=== PATIENT | male | born 1970 | race Caucasian/White ===

== ENCOUNTER 2024-07-31 14:29 | Outpatient (CLI) | payer BC, MEDICARE, MEDICAID, SELFPAY ==
--- NOTE | 2024-07-31 14:39 | XR_ITS ---
FINAL REPORT TECHNIQUE: Chest PA & Lateral CLINICAL HISTORY: HEART FAILURE W/ REDUCED EJECTION FRACTION COMPARISON: None FINDINGS: 2 views of the chest were performed. The heart size is moderately enlarged. Sternotomy wires are present. There is a left-sided pacer. A left ventricular assist device is present. Dense airspace opacity in the right perihilar region and mild mixed interstitial airspace opacity throughout the right lung is favored to represent pneumonia over asymmetric edema. There are no pleural effusions. There is no pneumothorax. The bony thorax appears intact. IMPRESSION: Right lung findings favor pneumonia over asymmetric edema. Follow-up recommended. Reviewed, Interpreted and Dictated by Rudy Cleveland MD Transcribed by Breann Majano Authenticated and [facility]
== END 2024-07-31 23:59 | disposition home or self-care (01) ==
LOC: LAB 14:34 → RAD 14:36
PROVIDERS: PCP Pediatrics; Visit Provider Physical Medicine & Rehabilitation
DX: I50.20 Unspecified systolic (congestive) heart failure (principal); R91.8 Other nonspecific abnormal finding of lung field
CPT/HCPCS: 71046

== ENCOUNTER 2025-01-08 14:49 | Emergency (ER) | payer BC, MEDICARE, MEDICAID, SELFPAY ==
--- OUTSIDE RECORDS SUMMARY | 2018-11-13 12:05 | XMS_ITS | Encounter Summary ---
[facility] Address [address] [place] [address] Care Team Providers Care Power Marketer Name Role Phone Herberth Perez MD Primary Care Provider [phone] Reason for Visit * Diagnostic Imaging (Routine) - Closed Specialty Diagnoses / Procedures Referred By Contac t Referred To Contact Radiology Diagnoses Solitary thyroid nodule Procedures US Thyroid Zaida Banks MD [address] [place] [address] Phone: tel: fax: [facility] [address] [place] [address] Phone: tel: fax: Referral ID Status Reason Start Date Expiration Date Visits Re quested Visits Authorized [id number] Closed 11/13/2018 11/13/2019 1 1 Encounter Details Date Type Department Care Team (Late st Contact Info) Description 11/13/2018 1:05 PM EDT Hospital Encounter [facility] [address] [place] [address] Social History Tobacco Use Types Packs/Day Years Used Date Smoking Tobacco: Never Smokeless Tobacco: Never Alcohol Use Standard Drinks/Week Comments Yes 0 (1 standard drink = 0.6 oz pur e alcohol) socially PHQ-2 Answer Date Recorded Retired PHQ-9: Brief Depression Severity Measure Score 0 08/17/2022 PHQ-2 Answer Date Recorded Retired PHQ-9: Brief Depression Severity Measure Score 0 09/06/2023 Sex and Gender Information Value Date Recorded Sex Assigned at Not on file Legal Sex Male 2:57 PM EST Gender Identity Not on file Sexual Orientation Not on file documented as of this encounter Plan of Treatment Not on file documented as of this encounter Procedures Procedure Name Priority Date/Time Associated Diagnosis Comments US THYROID Routine 11/13/2018 1:05 PM EDT Solitary thyroid nodule documented in this encounter Results * US Thyroid (11/13/2018 1:05 PM EDT) Narrative SYSTEMGENERATED, DOCUMENTATION - 11/13/2018 1:05 PM EDT Please see performing physician's note for result. us Zaida Bourgeois MD IMG US ORDERABLES Final Result documented in this encounter Visit Diagnoses Not on filedocumented in this encounter Care Teams Power Marketer Relationship Specialty Start Date End Date Herberth Perez MD [address] [place] [address] [place] [address] PCP - General Internal Medicine 04/22/17 documented as of this encounter
--- OUTSIDE RECORDS SUMMARY | 2019-11-20 09:45 | XMS_ITS | Encounter Summary ---
Author Organization [facility] Address [address] [place] [address] Care Team Providers Care Spray Crew Name Role Phone Herberth Perez MD Primary Care Provider Reason for Visit * Diagnostic Imaging (Routine) - Closed Specialty Diagnoses / Procedures Referred By Contac t Referred To Contact Radiology Diagnoses Solitary thyroid nodule Procedures US Thyroid Zaida Banks MD [address] [place] [address] Phone: tel: fax: [facility] [address] [place] [address] Phone: tel: fax: Referral ID Status Reason Start Date Expiration Date Visits Re quested Visits Authorized [id number] Closed 11/20/2019 11/19/2020 1 1 Encounter Details Date Type Department Care Team (Late st Contact Info) Description 11/20/2019 10:45 AM EDT Hospital Encounter [facility] [address] [place] [address] Social History Tobacco Use Types [...] Date/Time Associated Diagnosis Comments US THYROID Routine 11/20/2019 10:45 AM EDT Solitary thyroid nodule documented in this encounter Results * US Thyroid (11/20/2019 10:45 AM EDT) Narrative SYSTEMGENERATED, DOCUMENTATION - 11/20/2019 10:45 AM EDT Please see performing physician's note for result. us Zaida Bourgeois MD IMG US ORDERABLES Final Result documented in this encounter Visit Diagnoses Not on filedocumented in this encounter Care Teams Spray Crew Relationship Specialty Start Date End Date Herberth Perez MD [address] [place] [address] [place] [address] PCP - General Internal Medicine 04/22/17 documented as of this encounter
--- OUTSIDE RECORDS SUMMARY | 2024-11-11 08:15 | XMS_ITS | Encounter Summary ---
Author Organization [facility] Address [address] [place] [address] Care Team Providers Care Appraiser Boats And Marine Name Role Phone Herberth Perez MD Primary Care Provider [phone] Gracia Petersen FIELD CONSULTANT Unavailable [phone] Yunior Solorzano MD Unavailable [phone] Ross Baez DO Unavailable [phone] Edith Aleman RN Unavailable Unavailable Encounter Details Date Type Department Care Team (Latest Contact Info) Description 11/11/2024 9:15 AM EDT - 11/11/2024 11:59 PM EDT Hospital Encounter [facility] [address] [place] [address] ICD (implantable cardioverter-defibr illator) in place Discharge Disposition: Home or Self Care Social History Tobacco Use Types Packs/Day Years Used Date Smoking Tobacco: Never Passive Smoke Exposure: Never Smokeless Tobacco: Former Chew Quit: 05/06/2019 Alcohol Use Standard Drinks/Week Comments Not Currently 0 (1 standard drink = 0.6 oz pure alcohol) Alcoholic Drinks/day: Social alcohol use Humiliation, Afraid, Rape, and Kick questionnair e Answer Date Recorded Within the last year, have y ou been afraid of your partner or ex-partner? No 04/08/2024 Within the last year, have y ou been humiliated or emotionally abused in other ways by your partner or ex-partner? No Within the last year, have y ou been kicked, hit, slapped, or otherwise physically hurt by your partner or ex-partner? No 04/08/2024 Within the last year, have y ou been raped or forced to have any kind of sexual activity by your partner or ex-partner? No 04/08/2024 PHQ-2 Answer Date Recorded Patient Health Questionnaire-2 Score 0 03/19/2024 Hunger Vital Sign Answer Date Recorded Within the past 12 months, y ou worried that your food would run out before you got the money to buy more. Never true 04/08/19 25 Within the past 12 months, t he food you bought just didn't last and you didn't have money to get more. Never true 04/08/2024 PRAPARE - Transportation Answer Date Re corded In the past 12 months, has l ack of transportation kept you from medical appointments or from getting medications? No 05/2024 In the past 12 months, has l ack of transportation kept you from meetings, work, or from getting things needed for daily living? No 04/08/2024 Housing Stability Vital Sign Answer Truong e Recorded In the last 12 months, was t here a time when you were not able to pay the mortgage or rent on time? No 12/19/2023 In the last 12 months, how many places have you lived? 1 12/19/2023 In the last 12 months, was t here a time when you did not have a steady place to sleep or slept in a senior living (including now)? No 12/19/2023 PHQ-9 Answer Date Recorded Patient Health Questionnaire-9 Score 0 03/19/2024 Housing Stability Vital Sign Answer Truong e Recorded In the last 12 months, was t here a time when you were not able to pay the mortgage or rent on time? No 04/08/2024 In the past 12 months, how m any times have you moved where you were living? 0 04/08/2024 At any time in the past 12 m [place], were you homeless or living in a senior living (including now)? No 04/08/2024 CAGE ASSESSMENT Answer Date Recorded Cage unable to access Not on file 09/19/2021 Cage max number of drinks Not on file 2021 Cage Beverages a week Not on file 09/19/2021 Have you ever felt you should CUT down on your d rinking? 0 09/19/2021 Have you been ANNOYED by people criticizing your drinking? 0 09/19/2021 Have you felt GUILTY about your drinking? 0 09/19/2021 Have you had a drink first t janine in the morning (EYE-RESPIRATORY SUPERVISOR) to steady your nerves or to get rid of a hangover? 0 09/19/2021 CAGE Questionnaire Score 0 022 Utilities Answer Date Recorded In the past 12 months has th e [employer], [employer], oil, or water Yvolver threatened to shut off services in your home? No 04/08/2024 PHQ-2A Answer Date Recorded Patient Health Questionnaire-2 Score 0 12/21/2022 Sex and Gender Information Value Date Recorded Sex Assigned at Male 08/25/2020 11:15 AM EDT Legal Sex Male 8:00 PM EDT Gender Identity Male 08/25/2020 11:15 AM EDT Sexual Orientation Straight 08/25/2020 11 :15 AM EDT documented as of this encounter Medications at Time of Discharge acetaminophen (Tylenol) 325 MG tablet Take 3 tablets (975 mg) by mouth every 6 hours as needed for pain. 100 tablet 3 05/28/2024 albuterol 108 (90 Base) MCG/ACT inhaler Inhale 1 puff 2 (two) times a day as needed for wheezing. 3 each 3 05/28/2024 baclofen (Lioresal) 10 MG tabletIndications :LVAD (left ventricular assist device) present (CMS/HCC),Chronic systolic heart failure Take 3 tablets (30 mg) by mouth nightly. 270 tablet 3 05/28/2024 buPROPion XL (Wellbutrin XL) 300 MG 24 hr tablet Take 1 tablet (300 mg) by mouth daily. Do not crush, chew, or split. 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 360 capsule 3 05/28/2024 cetirizine (ZyrTEC) 10 MG tablet Take 1 tablet (10 mg) by mouth nightly. 90 tablet 3 05/28/2024 diphenhydrAMINE (Banophen) 25 MG capsule TAKE 1 CAPSULE BY MOUTH TWO TIMES A DAY 60 capsule 11 11/05/2024 fludrocortisone (Florinef) 0.1 MG tablet Take 1 tablet by mouth daily. 30 tablet 11 06/10/2024 FLUoxetine (PROzac) 40 MG capsule Take 1 capsule (40 mg) by mouth daily. 90 capsule 3 05/28/2024 fluticasone (Flonase) 50 MCG/ACT nasal spray USE 2 SPRAY(S) IN EACH NOSTRIL ONCE DAILY DIRECTED 06/22/2022 ipratropium (Atrovent) 0.02 % nebulizer solution Take 2.5 mL by nebulization 4 times a day as needed for wheezing. 75 mL 11 10/29/2024 IV Sets-Tubing kit For fluid boluses 15 kit 5 09/20/2024 lactulose (Chronulac) 10 GM/15ML oral solution Take 30 mL by mouth 3 times a day. 473 mL 2 08/26/2024 Magnesium Chloride-Calcium (Slow Magnesium/Calcium ) 64-106 MG tablet delayed-release Take 1 tablet by mouth in the morning and 1 tablet before bedtime. 180 tablet 3 05/28/2024 Melatonin 10 MG capsule Take 10 mg by mouth every night. 06/17/2020 Metamucil Fiber 2 g chewable tablet Chew 1 each in the morning. metoprolol succinate XL (Toprol-XL) 25 MG 24 hr tablet Take 1 tablet (25 mg) by mouth daily. Do not crush or chew. 90 tablet 3 05/28/2024 montelukast (Singulair) 10 MG tablet Take 1 tablet (10 mg) by mouth nightly. 90 tablet 3 05/28/2024 Mucus Relief 600 MG 12 hr tablet TAKE 2 TABLETS BY MOUTH TWO TIMES A DAY. DO NOT CHEW, CRUSH, OR SPLIT. 120 tablet 11 09/11/2024 NON FORMULARY Take 1 each by mouth every night. Delta 9 gummies purchased in [place] omeprazole (PriLOSEC) [address] capsule Take 1 capsule (40 mg) by mouth daily. DO NOT CRUSH OR CHEW 90 capsule 3 05/28/2024 polyethylene glycol (Miralax) 17 g packet Take 17 g by mouth daily as needed (constipation). 90 packet 3 05/28/2024 rosuvastatin (Crestor) 20 MG tablet Take 1 tablet (20 mg) by mouth nightly. 90 tablet 3 05/28/2024 senna (Senokot) 8.6 MG tablet Take 1 tablet (8.6 mg) by mouth nightly. 90 tablet 3 05/28/2024 sotalol (Betapace) 120 MG tablet Take 1 tablet (120 mg) by mouth in the morning and 1 tablet (120 mg) before bedtime. 180 tablet 3 05/28/2024 tamsulosin (Flomax) 0.4 MG 24 hr capsule Take 1 capsule (0.4 mg) by mouth 1 (one) time each day with dinner. 90 capsule 3 05/28/2024 warfarin (Coumadin) 4 MG tablet Take 1 tablet by mouth in the evening. 90 tablet 3 06/10/2024 sodium chloride 0.9 % bolus Infuse 500 mL into a venous catheter daily at 500 mL/hr over 60 minutes. 20 each 3 10/02/2024 documented as of this encounter Plan of Treatment Upcoming Encounters Date Type Department Care Team (Late st Contact Info) Description 01/28/2025 9:00 AM EST Appointment Cardiac Imaging [address] [place] [address] 01/28/2025 10:00 AM EST Ancillary Procedure [facility] [facility] [address] [place] [address] documented as of this encounter Goals Goal Patient Goal Type Associated Problems Recent Progress Patient-Stated? Author LVAD Short Term Goal General On track( 11:53 AM EDT) Yes Katrin Oviedo, RN Note: - 07/04/23: Patient states he wants to attend a wedding in November in [place] LVAD Night Manager Goal General On track( 11:53 AM EDT) Yes Katrin Oviedo, RN Note: - 07/04/23: Patient states he wants to meet his grandchild when they are born in November documented as of this encounter Procedures Procedure Name Priority Date/Time Associated Diagnosis Comments CARDIAC DEVICE CHECK - REMOTE - ICD Routine 11/11/2024 9:49 AM EDT ICD (implantable cardioverter-defibr illator) in place documented in this encounter Results * CARDIAC DEVICE CHECK - REMOTE - ICD (11/11/2024 9:49 AM EDT) Anatomical Region Laterality Modality Other Narrative 11/11/2024 2:33 PM EDT Biventricular Implantable cardiac defibrillator (ICD) remote interrogation. Device successfully sensing intrinsic cardiac events and marking appropriately. Available impedance values demonstrate stable trend within normal limits. Available lead capture thresholds measured without significant change. Adequate safety margin programmed in device permanent outputs. Battery discharge trend stable, appropriate given total time in service. BIV pacing percentage >= 92%. EGMs reviewed against implant indication and diagnosis. It is worth noting that the vendor auto-threshold algorithm is not turned enabled or available on one or more leads. Reported thresholds of these leads with auto-threshold disabled are from an earlier dated in-clinic evaluation. Presenting rhythm is atrial paced with biventricular paced response. Otherwise unremarkable. No new events since last clinic/remote report evaluation. 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 Assessment Noted Time PHQ-9 Depression Total Score: 0 03/19/19 25 8:46 AM EST A fall risk assessment has been complete d for the patient 10/29/2024 11:44 AM EDT A Body Mass Index follow-up plan has been documented for the patient 11/09/2024 11:38 AM EDT documented as of this encounter Care Teams Appraiser Boats And Marine Relationship Specialty Start Date End Date Herberth Perez MD [address] [place] [address] PCP - General 07/17/20 Gracia Petersen APRN [address] [place] [address] Nurse Practitioner Internal Medicine 08/06/20 Yunior Solorzano MD [address] [place] [address] Consulting Physician Gastroenterology 07/18/22 Ross Baez, [address] [place] [address] Surgeon Cardiothoracic Surgery 07/18/22 Edith Aleman, SAMPLE SUPERVISOR VAD Coordinator 10/14/24 documented as of this encounter
--- OUTSIDE RECORDS SUMMARY | 2024-12-20 09:46 | XMS_ITS | Encounter Summary ---
Author Organization Healthcare Address [address] [place] [address] Care Team Providers Care Machine Puller And Laster Name Role Phone Herberth Perez MD Primary Care Provider [phone] Gracia Petersen MEDICAL RECORDS COORDINATOR Unavailable [phone] Yunior Solorzano MD Unavailable Ross Baez DO Unavailable [phone] Edith Aleman RN Unavailable Unavailable Encounter Details Date Type Department Care Team (Latest Contact Info) Description 12/20/2024 10:46 AM EDT - 12/20/2024 11:59 PM EDT Hospital Encounter Cardiac Imaging [address] [place] [address] Biventricular ICD (implantable cardioverter-defibril lator) in place [...] place to sleep or slept in a chcf (including now)? No 12/19/2023 PHQ-9 Answer Date [...] any time in the past 12 m [facility], were you homeless or living in a chcf (including now)? No 04/08/2024 CAGE ASSESSMENT Answer [...] drink first t janine in the morning (EYE-DOLL WIG MAKER ROOTED HAIR) to steady your nerves or to get rid of a hangover? 0 09/19/2021 CAGE Questionnaire Score 0 022 Utilities Answer Date Recorded In the past 12 months has th [employer], [employer], oil, or water [employer] threatened to shut off services in your [...] every night. Delta 9 gummies purchased in [place] omeprazole (PriLOSEC) [address] capsule Take [...] over 60 minutes. 20 each 3 12/23/2024 documented as of this encounter Plan of Treatment Upcoming Encounters Date Type Department Care Team (Late st Contact Info) Description 01/28/2025 9:00 AM EST Appointment Cardiac Imaging [address] [place] [address] 01/28/2025 10:00 AM EST Ancillary Procedure [facility] [place] [address] [place] [address] documented as of this encounter Goals Goal Patient Goal Type Associated Problems Recent Progress Patient-Stated? Author LVAD Short Term Goal General On track( 11:53 AM EDT) Yes Katrin Oviedo, RN Note: - 07/04/23: Patient states he wants to attend a wedding in November in [place] LVAD Clinical Dietetic Technician Goal General On track( 024 11:53 AM EDT) Yes Katrin Oviedo, RN [...] from the original result were not included. [facility] EP - Remote CIED alert (non-scheduled) Name: Jose Pearson Date: 12/20/2024 : 1970 Age: 54 y.o. Indication for alert: Update/entry on HF diagnostic trends for LVAD team Device: Molding Machine Tender: Zavaleta RFID MANAGER-ICD Summary: Weekly reports of Corvue being sent [...] documented as of this encounter Care Teams Machine Puller And Laster Relationship Specialty Start Date End Date Herberth Perez MD [address] [place] [address] PCP - General 07/17/20 Gracia Petersen APRN [address] [place] [address] Nurse Practitioner Internal Medicine 08/06/20 Yunior Solorzano MD [address] [place] [address] Consulting Physician Gastroenterology 07/18/22 Ross Baez, [address] [place] [phone] Surgeon Cardiothoracic Surgery 07/18/22 Edith Aleman, POWER TONG OPERATOR VAD Coordinator 10/14/24 documented as of this encounter
--- OUTSIDE RECORDS SUMMARY | 2024-12-23 11:44 | XMS_ITS | Encounter Summary ---
Author Organization Healthcare Address [address] [place] [address] Care Team Providers Care Manager Corporate Communications Name Role Phone Herberth Perez MD Primary Care Provider [phone] Gracia Petersen SCRATCH BRUSHER Unavailable [phone] Yunior Solorzano MD Unavailable Ross Baez DO Unavailable [phone] Edith Aleman RN Unavailable Unavailable Encounter Details Date Type Department Care Team (Latest Contact Info) Description 12/23/2024 12:44 PM EDT - 12/23/2024 11:59 PM EDT Hospital Encounter Cardiac Imaging [address] [place] [address] Biventricular ICD (implantable cardioverter-defibril lator) in place [...] place to sleep or slept in a custodial (including now)? No 12/19/2023 PHQ-9 Answer Date [...] in the past 12 m [facility], were you homeless or living in a custodial (including now)? No 04/08/2024 CAGE ASSESSMENT Answer [...] drink first t janine in the morning (EYE-HEAT TREAT FURNACE OPERATOR) to steady your nerves or to get rid of a hangover? 0 09/19/2021 CAGE Questionnaire Score 0 022 Utilities Answer Date Recorded In the past 12 months has th [employer], [employer], oil, or water [employer] threatened to shut off services in your [...] every night. Delta 9 gummies purchased in [place] omeprazole (PriLOSEC) [address] capsule Take [...] AM EST Appointment Cardiac Imaging [address] [place] [address] 01/28/2025 10:00 AM EST Ancillary Procedure [facility] [place] [address] [place] [address] documented as of this encounter Goals Goal Patient Goal Type Associated Problems Recent Progress Patient-Stated? Author LVAD Short Term Goal General On track( 11:53 AM EDT) Yes Katrin Oviedo, RN Note: - 07/04/23: Patient states he wants to attend a wedding in November in [place] LVAD Pump Room Operator Goal General On track( 024 11:53 AM [...] Modality Other Narrative 12/23/2024 12:59 PM EDT [facility] EP - Remote CIED alert (non-scheduled) Name: Jose Pearson Date: 12/23/2024 : 1970 Age: 54 y.o. Indication for alert: NSVT (V>A) Device: Security Support Analyst: Zavaleta LEGAL MANAGER-ICD Summary: NSVT labeled event on 12/21/24 lasting approx 6-7 seconds. Event is in patients VT-1 monitor zone of 150bpm, no therapy delivered. EGM demonstrates spontaneous conversion. Action(s): Next scheduled appt 01/28/25 Will continue to monitor device. LVAD patient Ongoing monitoring Jazmine Ramos PA-C See attached report for CIED details Dina Saldana APRN CV IMPLANTABLE CARDIAC DEV ICE PROCEDURES Final [...] documented as of this encounter Care Teams Manager Corporate Communications Relationship Specialty Start Date End Date Herberth Perez MD [address] [place] [address] PCP - General 07/17/20 Gracia Petersen APRN [address] [place] [address] Nurse Practitioner Internal Medicine 08/06/20 Yunior Solorzano MD [address] [place] [address] Consulting Physician Gastroenterology 07/18/22 Ross Baez, DO [address] [place] [phone] Surgeon Cardiothoracic Surgery 07/18/22 Edith Aleman, GLOBAL POSITION SYSTEM TECHNICIAN VAD Coordinator 10/14/24 documented as of this encounter
--- OUTSIDE RECORDS SUMMARY | 2025-01-06 12:34 | XMS_ITS | Encounter Summary ---
Author Organization Healthcare Address [address] [place] [address] Care Team Providers Care Utilization Management Nurse Name Role Phone Herberth Perez MD Primary Care Provider [phone] Gracia Petersen PANELBOARD TANK PUMPER Unavailable [phone] Yunior Solorzano MD Unavailable [phone] Ross Baez DO Unavailable [phone] Edith Aleman RN Unavailable Unavailable Encounter Details Date Type Department Care Team (Latest Contact Info) Description 01/06/2025 12:34 PM EST - 01/06/2025 11:59 PM [facility] Hospital Encounter Cardiac Imaging [address] [place] [id number] ICD (implantable cardioverter-defibr illator) in place Discharge [...] place to sleep or slept in a correction (including now)? No 12/19/2023 PHQ-9 Answer Date [...] any time in the past 12 m [facility], were you homeless or living in a correction (including now)? No 04/08/2024 CAGE ASSESSMENT Answer [...] drink first t janine in the morning (EYE-ANIMAL BEHAVIORIST) to steady your nerves or to get rid of a hangover? 0 09/19/2021 CAGE Questionnaire Score 0 022 Utilities Answer Date Recorded In the past 12 months has th e [employer], [employer], oil, or water [email or web address] threatened to shut off services in your [...] daily at 500 mL/hr over 60 minutes. 20682 mL 11 12/25/2024 documented as of this encounter Plan of Treatment Upcoming Encounters Date Type Department Care Team (Late st Contact Info) Description 01/28/2025 9:00 AM EST Appointment Cardiac Imaging [address] [place] [address] 01/28/2025 10:00 AM EST Ancillary Procedure [facility] [place] [address] [place] [address] documented as of this encounter Goals Goal Patient Goal Type Associated Problems Recent Progress Patient-Stated? Author LVAD Short Term Goal General On track( 11:53 AM EDT) Yes Katrin Oviedo, RN Note: - 07/04/23: Patient states he wants to attend a wedding in November in [place] LVAD Neurosurgery Spine Physician Goal General On track( 11:53 AM EDT) [...] Modality Other Narrative 01/06/2025 4:17 PM EST [facility] EP - Remote CIED alert (non-scheduled) Name: Jose Pearson Date: 01/06/2025 : 1970 Age: 54 y.o. Indication for alert: NSVT (V>A) Device: Gm Video: Zavaleta CASINO BEVERAGE SERVER-ICD Summary: NSVT event, occurring 01/03, egm does not demonstrate onset, can visualize termination, duration at least 14 seconds Rate appears to flucuate in and out of VT-1 zone (150 bpm, with therapy) Action(s): Next apt with VAD 01/28/25 See attached report for CIED details Dnia Valenzuela Les SANDOVAL CV IMPLANTABLE CARDIAC DEV [...] documented as of this encounter Care Teams Utilization Management Nurse Relationship Specialty Start Date End Date Herberth Perez MD [address] [place] [address] PCP - General 07/17/20 Gracia Petersen APRN [address] [place] [address] Nurse Practitioner Internal Medicine 08/06/20 Yunior Solorzano MD [address] [place] [address] Consulting Physician Gastroenterology 07/18/22 Ross Baez DO [address] [address] Surgeon Cardiothoracic Surgery 07/18/22 Edith Aleman, SOCIAL WORK LECTURER VAD Coordinator 10/14/24 documented as of this encounter
[2025-01-08 14:51] VITALS: BP 105/80; PULSE 100; RESP 18; TEMP 37.1; O2SAT 96; BMI 20.6
[2025-01-08 15:09] LABS: Coronavirus 19, PCR Not Detected (NotDetected); Influenza A, PCR Not Detected (NotDetected); Influenza B, PCR Not Detected (NotDetected)
--- OUTSIDE RECORDS SUMMARY | 2025-01-08 15:09 | XMS_ITS | Encounter Summary ---
Author Organization [employer] ([place], [place], [place], [place], [place]) Address [address] [place] [address] Care Team Providers Care Supervisor Testing Name Role Phone Unavailable Primary Care Provider Stefan pnod Encounter Details Date Type Department Care Team (Late st Contact Info) Description 03/28/2018 Transcribed Document [facility] Family Medicine [facility] [place] [address] ProviderMg MD [facility] [place] [address] Social History Tobacco Use Types Packs/Day Years Used Date Smoking Tobacco: Never Assessed Sex and Gender Information Value Date Recorded Sex Assigned at Not on file Legal Sex Male 1:09 PM CDT Gender Identity Not on file Sexual Orientation Not on file documented as of this encounter Miscellaneous Notes * Cerner Conversion Note - Mg ProviderMD - 03/28/2018 1:07 PM MILLING PLANER OPERATOR Admission History, Adult Entered On: 03/28/2018 13:21 EST Performed On: 03/28/2018 13:07 EST by BRIAN BEASLEY RN Advance Directive Patient has Advance Directive *Q : No, patient refuses Advance Directive information BRIAN BEASLEY RN - 03/28/2018 13:07 EST Anesthesia/Transfusion History Family History of Anesthesia Reaction : No prior transfusion(s) Blood Transfusion Acceptable to Patient : Yes Transfusion History : Prior anesthesia reaction Type of Anesthesia Reaction : Excessive somnolence Family History of Anesthesia Reaction : None BRIAN BEASLEY RN - 03/28/2018 13:07 EST Anticipated Discharge Needs Discharge To, Anticipated : Home Anticipated Discharge Needs at This Time : None BRIAN BEASLEY RN - 03/28/2018 13:07 EST Functional Assessment Living Situation : Home Patient Lives With : Spouse Persons Assisting Patient at Home : Spouse Current Daily Living Assistance : None Sensory Deficits : None Mobility Assistance Prior to Admission : Independent SHARMA Hx Falls Immediate/Within 3 Months : No Current Home Treatments : None Home Equipment : None BRIAN BEASLEY RN - 03/28/2018 13:07 EST General Info Arrived From : Home Mode of Arrival on Unit : Ambulatory Patient Arrival Date/Time : 03/28/2018 12:15 EST Legal Guardian : Spouse Support Person/Patient Tailer Off : Yes Support Person/Pt Rep Name : Neel Pearson-- Support Person/Pt Rep Contact Information : [phone] Want Family/Rep/Phys Notified of Admit : No Emergency Contact #1 : neel Emergency Contact #1 Phone Number : [phone] Emergency Contact #1 Relationship : Emergency Contact #2 : na Emergency Contact #2 Phone Number : na Emergency Contact #2 Relationship : na Information Obtained From : Patient, Spouse Primary Language : Iraqi Preferred Communication Mode : Verbal Communication Barrier : None BRIAN BEASLEY RN - 03/28/2018 13:07 EST Fall Risk Scales ABCs Fall Injury Risk Identification : Coagulation ABC Fall Injury Risk : Moderate to high injury risk SHARMA Hx Falls Immediate/Within 3 Months : No Sharma Secondary Diagnosis : Yes SHARMA Use of Ambulatory Aid : None SHARMA IV Therapy or IV Access : Yes Sharma Gait/Transferring : Normal, bedrest, immobile Sharma Mental Status : Oriented to own ability Sharma Fall Risk Score : 35 SHARMA Fall Scale Risk Level : 25-45 Medium Risk [place] Fall Interventions : Adequate lighting, Assistive devices within reach, Bed in low position, Call device within reach, Fall prevention handout/education per facility policy, Frequent orientation to call device, Frequent orientation to surroundings, Hourly comfort/safety rounds, Non-slip footwear, Personal items within reach, Reinforced to call for assistance before getting out of bed, Room free of clutter/spills, Upper side-rails up, Wheels locked, Wires/Cords secured BRIAN BEASLEY RN - 03/28/2018 13:07 EST Health Histories Smoking Status : Former smoker, quit more than 30 days ago Smokeless Tobacco Status : Smokeless tobacco user within last 30 days Desires Tobacco Cessation Medication : No Reason for No Tobacco Cessation Medication : Refuses FDA approved medications BRIAN BEASLEY RN - 03/28/2018 13:07 EST Social History (As Of: 03/28/2018 13:21:03 EST) Tobacco: Use in Last 12 Months: Snuff/Dip. Smoking Status daily tobacco use. Years of Use: 23. Packs/Tins Daily: 4. Last Used: patient uses dip 4 times a day. Second Hand Smoke Exposure: No. (Last Updated: 09/02/2014 12:08:44 EDT by MICHELE NICOLE, RN) Alcohol: Total Drinks/Week: 3. Date/Time of Last Drink: 08/28/2014 beers. Use in Last 12 Months: Yes. (Last Updated: 09/02/2014 17:39:18 EDT by PAUL GARCES, MARYCARMEN) Alcohol Use History Yes. Total Drinks/Week: 1. Date/Time of Last Drink: 03/05/2018. Use in Last 12 Months: Yes. Alcohol Use Frequency Socially. (Last Updated: 03/28/2018 13:16:35 EST by BRIAN BEASLEY RN) Substance Abuse: Drug Use Hx: No. Use in Last 12 Months: No. (Last Updated: 02/12/2017 17:32:08 EST by SERGEI GARCIA RN) Height and Weight, Clinical Dosing Height Source : Stated Height Entry Format : [place] Height, Feet : 6 ft(Converted to: 183 cm, 72 Inch) Height, Inches : 0 Inch(Converted to: 0 ft 0 Inch, 0.00 cm) Clinical Height : 182.88 cm Weight Source : Standing scale Weight Entry Format : [place] Clinical Dosing Weight : 107.5 kg Weight, Pounds : 236 lb Weight, Ounces : 8 oz Body Surface Area (BSA) : 2.29 m2 Body Mass Index : 32.1 kg/m2 (HI) [place] Body Weight : 77 kg BRIAN BEASLEY RN - 03/28/2018 13:07 EST Infectious Disease History Infectious Disease History : Chicken pox/Shingles, Influenza, Measles, Mumps Fever/Chills Last 48 Hours : No Travel To Regions with Travel Advisories : No Travel Outside [place] Within Last 30 Days : No Contact With Traveler to Advisory Region : No Tuberculosis Symptoms : None BRIAN BEASLEY RN - 03/28/2018 13:07 EST Influenza Vaccine Asmt, Adult Previous Vaccines from Immunization Schedule : No qualifying data available. Influenza Immunization, Current Season : Yes BRIAN BEASLEY RN - 03/28/2018 13:07 EST Pneumococcal Vaccine Previous Vaccines from Immunization Schedule : No qualifying data available. Pneumonia Immunization Received : Yes BRIAN BEASLEY RN - 03/28/2018 13:07 EST Order Details Transport Mode Order Detail : Wheelchair Isolation Precautions Order Detail : Standard Precautions Order Detail : N/A IV Order Detail : 1 Oxygen Order Detail : 0 Nurse Collect Order Detail : 0 Lift/Transfer : Independent Central Line Order Detail : No Room Service : Appropriate Arterial Line : No BRIAN BEASLEY RN - 03/28/2018 13:07 EST Nutrition History Feeding Ability : Independent Adaptive Feeding Equipment : None Adaptive Feeding Equipment : Regular Oral Medication Administration : By mouth Eating Poorly Due to Decreased Appetite : No Unplanned Weight Loss in Past 3-6 Months : No Malnutrition Screening Tool Total(mal) : 0 Malnutrition Screening Tool Risk Level : Patient not at risk BRIAN BEASLEY RN - 03/28/2018 13:07 EST Psychosocial History Does Someone Depend on You for Care? : No Chronic/Terminal Illness w/Freq Visits : No Do You Have a History of the Following? : Patient denies history Currently in Unsafe Situation : No Tried to Harm Yourself in the Past? : No Thoughts of Harming/Killing Yourself : No BRIAN BEASLEY RN - 03/28/2018 13:07 EST Sleep Apnea Risk Assmt Hx of Obstructive Sleep Apnea Diagnosis : No Snore Loudly : Yes Tired, Fatigued, or Sleepy During Day : No Observed Stopping Breathing During Sleep : No Have/Are Being Treated for Hypertension : Yes STOP Sleep Apnea Risk Level Score : 2 STOP Sleep Apnea Risk Level : High BRIAN BEASLEY RN - 03/28/2018 13:07 EST Valuables and Belongings Valuables and Belongings : Clothing, Jewelry, Personal devices, Personal items Clothing : Common streetwear Clothing Disposition : Bedside Personal Device Disposition : With patient Jewelry : Ring Jewelry Disposition : With patient Personal Devices : Dentures, partial plate Personal Items : Cell phone Personal Items Disposition : With patient BRIAN BEASLEY RN - 03/28/2018 13:07 EST Electronically signed by Interface, [facility] Conversion Court Operations Clerk Cerner at 06/19/2022 10:55 PM CDT documented in this encounter Plan of Treatment Not on file documented as of this encounter Visit Diagnoses Not on filedocumented in this encounter
--- OUTSIDE RECORDS SUMMARY | 2025-01-08 15:09 | XMS_ITS | Encounter Summary ---
Author Organization [employer] ([place], [place], [place], [place], [place]) Address [address] [place] [address] Care Team Providers Care Power Nut Runner Operator Name Role Phone Unavailable Primary Care Provider Unavailrodrick e Encounter Details Date Type Department Care Team (Late st Contact Info) Description 03/28/2018 Transcribed Document [facility] [facility] Family Medicine [address] [place] [address] ProviderMg MD [facility] [place] [address] Social History Tobacco Use Types Packs/Day Years Used Date Smoking Tobacco: Never Assessed Sex and Gender Information Value Date Recorded Sex Assigned at Not on file Legal Sex Male 1:09 PM CDT Gender Identity Not on file Sexual Orientation Not on file documented as of this encounter Miscellaneous Notes * Cerner Conversion Note - Historical ProviderMD - 03/28/2018 1:36 PM CUPOLA MELTER HELPER Education-(VTE) / (DVT) Entered On: 03/28/2018 14:58 EST Performed On: 03/28/2018 13:36 EST by BRIAN BEASLEY RN Teaching/Learning Assessment Barriers To Learning : None evident Highest Level of Education : Some college Learning Style Preferences Patient : None Learning Style Preferences Family : None BRIAN BEASLEY RN - 03/28/2018 14:58 EST documented in this encounter Plan of Treatment Not on file documented as of this encounter Visit Diagnoses Not on filedocumented in this encounter
--- OUTSIDE RECORDS SUMMARY | 2025-01-08 15:09 | XMS_ITS | Encounter Summary ---
Author Organization [employer] ([place], [place], [place], [place], [place]) Address [address] [place] [address] Care Team Providers Care Rental Management Trainee Name Role Phone Unavailable Primary Care Provider Stefan pond Encounter Details Date Type Department Care Team (Late st Contact Info) Description 03/28/2018 Transcribed Document [facility] Family Medicine [address] [place] [address] ProviderMg MD [facility] [place] [address] Social History Tobacco Use Types Packs/Day Years Used Date Smoking Tobacco: Never Assessed Sex and Gender Information Value Date Recorded Sex Assigned at Not on file Legal Sex Male 1:09 PM CDT Gender Identity Not on file Sexual Orientation Not on file documented as of this encounter Miscellaneous Notes * Cerner Conversion Note - Historical ProviderMD - 03/28/2018 1:21 PM INTERNET ECOMMERCE SPECIALIST Education-Smoking Cessation Entered On: 03/28/2018 14:57 EST Performed On: 03/28/2018 13:21 EST by BRIAN BEASLEY RN Teaching/Learning Assessment Barriers To Learning : None evident Individuals Taught : Patient, Significant other Readiness to Learn : Cooperative Highest Level of Education : Some college Baseline Knowledge of Topic : Good Readiness to Learn : Explanation, Printed materials Learning Style Preferences Patient : None Learning Style Preferences Family : None BRIAN BEASLEY RN - 03/28/2018 14:57 EST documented in this encounter Plan of Treatment Not on file documented as of this encounter Visit Diagnoses Not on filedocumented in this encounter
--- OUTSIDE RECORDS SUMMARY | 2025-01-08 15:09 | XMS_ITS | Encounter Summary ---
Author Organization [employer] ([place], [place], [place], [place], [place]) Address [address] [place] [address] Care Team Providers Care Rubber Roller Grinder Name Role Phone Unavailable Primary Care Provider Unavailabl e Encounter Details Date Type Department Care Team (Late st Contact Info) Description 03/28/2018 Transcribed Document [facility] [address] [place] [address] ProviderMg MD [facility] [place] [address] Social History Tobacco Use Types Packs/Day Years Used Date Smoking Tobacco: Never Assessed Sex and Gender Information Value Date Recorded Sex Assigned at Not on file Legal Sex Male 1:09 PM CDT Gender Identity Not on file Sexual Orientation Not on file documented as of this encounter Miscellaneous Notes * Cerner Conversion Note - Historical ProviderMD - 03/28/2018 5:50 PM FINANCE CONSULTANT Spiritual Care Short Form Entered On: 03/28/2018 18:12 EST Performed On: 03/28/2018 17:50 EST by Billy Leiws CHAPLAIN General Information, Spiritual Care Spiritual Care Referred by : Family Reason for Visit : Initial Ministry Provided to : Patient Intervention/Comment/Summary Points : Research Instructor paged for a meal voucher for patient's . Research Instructor delivered the meal voucher. Billy Lewis CHAPLAIN - 03/28/2018 18:11 EST documented in this encounter Plan of Treatment Not on file documented as of this encounter Visit Diagnoses Not on filedocumented in this encounter
--- OUTSIDE RECORDS SUMMARY | 2025-01-08 15:09 | XMS_ITS | Encounter Summary ---
Author Organization [employer] ([place], [place], [place], [place], [place]) Address [address] [place] [address] Care Team Providers Care Acetylene Torch Operator Name Role Phone Unavailable Primary Care Provider Stefan pond Encounter Details Date Type Department Care Team (Late st Contact Info) Description 03/28/2018 Transcribed Document [facility] [place] Family Medicine [facility] [place] [address] ProviderMg MD [facility] [place], [place] [address] Social History Tobacco Use Types Packs/Day Years Used Date Smoking Tobacco: Never Assessed Sex and Gender Information Value Date Recorded Sex Assigned at Not on file Legal Sex Male 1:09 PM CDT Gender Identity Not on file Sexual Orientation Not on file documented as of this encounter Miscellaneous Notes * Cerner Conversion Note - Historical ProviderMD - 03/28/2018 1:21 PM ADULT LIVE IN CAREGIVER Provider Notification Entered On: 03/28/2018 14:57 EST Performed On: 03/28/2018 13:21 EST by BRIAN BEASLEY RN Provider Notification Provider Notified of Concerns/Results : Other: sleep apnea Provider Notified of : Nurse concerns, Patient Arrival Provider Response : No new orders BRIAN BEASLEY RN - 03/28/2018 14:56 EST Electronically signed by Jackie [facility] Conversion Hyperbaric Welder Diver Cerner at 06/19/2022 10:56 PM CDT documented in this encounter Plan of Treatment Not on file documented as of this encounter Visit Diagnoses Not on filedocumented in this encounter
--- OUTSIDE RECORDS SUMMARY | 2025-01-08 15:09 | XMS_ITS | Encounter Summary ---
Author Organization [employer] ([place], [place], [place], [place], [place]) Address [address] [place] [address] Care Team Providers Care Sports Marketing Internship Name Role Phone Unavailable Primary Care Provider Unavailabl e Encounter Details Date Type Department Care Team (Late st Contact Info) Description 03/28/2018 Transcribed Document [facility] [place] Family Medicine [facility] [place] [address] ProviderMg MD [facility] [place] [id number] Social History Tobacco Use Types Packs/Day Years Used Date Smoking Tobacco: Never Assessed Sex and Gender Information Value Date Recorded Sex Assigned at Not on file Legal Sex Male 1:09 PM CDT Gender Identity Not on file Sexual Orientation Not on file documented as of this encounter Miscellaneous Notes * Cerner Conversion Note - Mg Ritchie MD - 03/28/2018 1:44 PM WRIST CLOSER Patient: JOSE PEARSON Age: 47 years Sex: Male : 1970 Associated Diagnoses: None Author: BRENDON OTT APRN Chief Complaint got shocked last night History of Present Illness 47-year-old white male with a known history of nonischemic dilated cardiomyopathy he was evaluated in our office on 03/22/18 with iatrogenic hypotension as well as undergoing a pacemaker/ICD interrogation at that time revealing and he had been in atrial fibrillation. Patient also was felt at that time to have acute on chronic left systolic heart failure and by echocardiogram ejection fraction of less than 20% was scheduled admission today to our facility holding his Xarelto and scheduled to undergo a right heart catheterization for tomorrow. During his office visit on 117 his Coreg was decreased to 6.25 twice a day and his Entresto was continued. The patient at this time denies chest pain pressure tightness heaviness, no radiation he does admit to mild shortness of breath and he tells me that last night while he was at rest he felt like he was shocked by his defibrillator. There are no specific precipitating or modifying factors. His EKG today shows sinus rhythm. Review of Systems Constitutional: No fever, No chills, No sweats. Eye: No double vision, No visual disturbances. Ear/Nose/Mouth/Throat: No nasal congestion, No sore throat. Respiratory: Shortness of breath, No cough, No sputum production. Cardiovascular: Palpitations, Tachycardia, No chest pain, No bradycardia, No peripheral edema, No syncope. Gastrointestinal: No nausea, No vomiting, No diarrhea. Genitourinary: No dysuria, No hematuria. Hematology/Lymphatics: No bruising tendency. Endocrine: No excessive thirst, No polyuria, No cold intolerance. Immunologic: Not immunocompromised, No recurrent fevers. Musculoskeletal: No neck pain, No joint pain, No muscle pain. Integumentary: No rash, No pruritus. Neurologic: No abnormal balance, No confusion. Psychiatric: No anxiety, No depression. Health Status Allergies: Allergic Reactions (Selected) No Known Medication Allergies, Allergies (1) Active Reaction No Known Medication Allergies None Documented Current medications: (Selected) Inpatient Medications Ordered Colace: 100 mg, Oral, BID Normal Saline 1,000 mL: 10 mL/Hr, IntraVENous Normal Saline Flush: 10 mL, IV Push, Q12H Normal Saline Flush: 10 mL, IV Push, See Comment, PRN: IV Use Tylenol: 650 mg, Oral, Q4H, PRN: Pain (Mild 1-3) Zofran: 4 mg, IV Push, Q6H, PRN: Nausea acetaminophen-HYDROcodone 325 mg-5 mg oral tablet: 1 Tab, Oral, Q4H, PRN: Pain (Moderate 4-6) magnesium sulfate: 2 Gram, IV Piggyback, On-CALL morphine: 2 mg, IV Push, Q5Min, PRN: Pain (Severe 7-10) potassium chloride 10 mEq/50 mL intravenous solution: 10 mEq, 50 mL, 50 mL/Hr, IV Piggyback, 1-Time potassium chloride 20 mEq oral tablet, extended release: 40 mEq, 2 Tab, Oral, 1-Time, PRN: Other (See Comment) potassium chloride 20 mEq oral tablet, extended release: 60 mEq, 3 Tab, Oral, On-CALL Documented Medications Documented Betapace 80 mg oral tablet: 1 Tab, Oral, BID, 60 Tab, 0 Refill(s) Entresto 24 mg-26 mg oral tablet: 1 Tab, Oral, BID, 0 Refill(s) FLUoxetine 20 mg oral capsule: 1 Cap, Oral, At Bedtime, 60 Cap, 0 Refill(s) Lasix 40 mg oral tablet: 1 Tab, Oral, BID, 0 Refill(s) Melatonin 3 mg oral tablet: 1 Tab, Oral, 1-Time, 0 Refill(s) Nitrostat 0.4 mg sublingual tablet: 1 Tab, SubLINgual, Q5Min, If chest pain not relieved in 5 minutes after first dose, seek immediate medical attention not to exceed 3 doses/15 min--if pain persists, seek medical attention, PRN: as needed for chest pain, 100 Tab, 0 Refill(s) Proventil 0.5% inhalation solution: mL, Nebulized Inhalation, Q6H, 0 Refill(s) Proventil HFA 90 mcg/inh inhalation aerosol: Puff, Inhalation, QID, PRN: Shortness of Breath, 0 Refill(s) Ventolin HFA 90 mcg/inh inhalation aerosol: 2 Puff, Inhalation, QID, 0 Refill(s) Xarelto 20 mg oral tablet: 1 Tab, Oral, QPM, 30 Tab, 0 Refill(s) carvedilol: 6.25 mg, Oral, BID, 0 Refill(s) cetirizine 10 mg oral tablet: 1 Tab, Oral, Daily, 0 Refill(s) fluticasone 50 mcg/inh nasal spray: 1 [place], Nostrils Both, Daily, 0 Refill(s) montelukast 10 mg oral tablet: 1 Tab, Oral, Daily, 0 Refill(s) pravastatin 80 mg oral tablet: 1 Tab, Oral, At Bedtime, 0 Refill(s) spironolactone: 25 mg, Oral, Daily, 0 Refill(s), Medications (12) Active Scheduled: (5) #NaCl 0.9% *FLUSH* inj 10 mL 10 mL, IV Push, Q12H docusate sodium 100 mg cap 100 mg 1 Cap, Oral, BID magnesium sulfate 2 Gram, IV Piggyback, On-CALL potassium chloride 10 mEq 50 mL, IV Piggyback, 1-Time potassium chloride CR 20 mEq tab 60 mEq 3 Tab, Oral, On-CALL Continuous: (1) NaCl 0.9% 1,000 mL 1,000 mL, IntraVENous, 10 mL/Hr PRN: (6) #NaCl 0.9% *FLUSH* inj 10 mL 10 mL, IV Push, See Comment acetaminophen 325 mg tab 650 mg 2 Tab, Oral, Q4H acetaminophen/HYDROcodone 325/5 mg tab 1 Tab, Oral, Q4H morphine 2 mg/1 ml inj 2 mg 1 mL, IV Push, Q5Min ondansetron 4 mg/2 mL inj 4 mg 2 mL, IV Push, Q6H potassium chloride CR 20 mEq tab 40 mEq 2 Tab, Oral, 1-Time Problem list: All Problems angina / SNOMED CT 683927263 / Confirmed Asthma / SNOMED CT 048721497 / Confirmed At risk for sleep apnea / IMO 80405821 / Confirmed cardiac defibulator / Confirmed interrogated at physicians office---02/22/13 pacemaker / SNOMED CT 7540874215 / Confirmed Cardiomyopathy / SNOMED CT 219263513 / Confirmed stroke / SNOMED CT 895563572 / Confirmed he had a stroke when they found the blood clot in valve 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 / Confirmed treated with blood thinners GERD - Gastro-esophageal reflux disease / SNOMED CT 5502615864 / Confirmed H/O: CVA / SNOMED CT 988162347 / Confirmed Heart failure / SNOMED CT 851131668 / Confirmed high cholesterol / SNOMED CT 02238587 / Confirmed Hyperlipidemia / SNOMED CT 44786297 / Confirmed hypertension / SNOMED CT 8715499367 / Confirmed myocardial infarction / SNOMED CT 07989764 / Confirmed sesonal allergies / Confirmed, Active Problems (16) stroke angina Asthma At risk for sleep apnea cardiac defibulator Cardiomyopathy 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 GERD - Gastro-esophageal reflux disease H/O: CVA Heart failure high cholesterol Hyperlipidemia hypertension myocardial infarction pacemaker sesonal allergies Histories Past Medical History: No active or resolved past medical history items have been selected or recorded., as above Family History: No family history items have been selected or recorded., neg angelito cad Procedure history: AICD. right ankle pins & rods. heart cath. Hernia repair. heart attack. chf. cva. Social History Social & Psychosocial Habits Alcohol 09/02/2014 Total Drinks Per Week 3 Date/Time of Last Drink 08/28/2014 beers Alcohol Use in Last Twelve Months Yes 03/28/2018 Alcohol Use History, Social Habits Yes Total Drinks Per Week 1 Date/Time of Last Drink 03/05/2018 Alcohol Use in Last Twelve Months Yes Alcohol Use Frequency Socially Substance Abuse 02/12/2017 Recreational Drug Use History No Recreational Drug Use Last 12 Months No Tobacco 09/02/2014 Tobacco Use Within Last Twelve Months Snuff/Dip Smoking Status daily tobacco use Years of Tobacco Use 23 Packs/Tins Daily 4 Month Tobacco Last Used patient uses dip 4 times a day Second Hand Smoke Exposure No . Physical Examination VS/Measurements Vitals Signs (last 24 hrs) Last Charted Minimum Maximum Temp 97.9 (MAR 28:22) 97.9 (MAR 28:22) 97.9 (MAR 28:22) Mon HR 95 (MAR 28:22) 95 (MAR 28:22) 95 (MAR 28:22) Resp Rate 16 (MAR 28:22) 16 (MAR 28 12:22) 16 (MAR 28:22) SBP L 86 (MAR 28 12:22) L 86 (MAR 28:22) L 86 (MAR 28:22) DBP 65 (MAR 28 12:22) 65 (MAR 28 12:22) 65 (MAR 28 12:22) MAP 70 (MAR 28 12:22) 70 (MAR 28 12:22) 70 (MAR 28 12:22) SpO2 95 (MAR 28:22) 95 (MAR 28 12:22) 95 (MAR 28:22) General: Alert and oriented, No acute distress. Eye: Pupils are equal, round and reactive to light, Normal conjunctiva. HENT: Normocephalic, Normal hearing. Neck: Supple, Non-tender, No jugular venous distention. Respiratory: Lungs are clear to auscultation, Respirations are non-labored, Breath sounds are equal, Symmetrical chest wall expansion. Cardiovascular: Normal rate, Regular rhythm, No murmur, No gallop, Good pulses equal in all extremities, Normal peripheral perfusion, No edema. Gastrointestinal: Soft, Non-tender, Non-distended, Normal bowel sounds. Lymphatics: No lymphadenopathy neck, axilla, groin. Musculoskeletal: Normal range of motion, Normal strength. Integumentary: Warm, Dry, [place]. Neurologic: Alert, Oriented. Cognition and Speech: Oriented, Speech clear and coherent. Psychiatric: Cooperative, Appropriate mood & affect. Review / Management Results review: No qualifying data available. Impression and Plan Acute on chronic left systolic heart failure -Coreg 6.25 twice a day, Entresto 2426 twice a day. -admitted for rhc -Ef 20% bye recent office echo 03/22/18 Nonischemic dilated cardiomyopathy -BIVICD in situ -Medical therapy as above -Check BM P -Interrogation of device due to report of ICD shock. Paroxysmal atrial fibrillation -Presently appears sinus rhythm -Has been on sotalol 80 twice a day. Consider increase sotalol 120 twice a day or change medication to TIkosyn. Will discuss -hold xarelto last dose monday. -lovenox 1mg/kg bid Addendum: ICD interrogation reveals ICD shock for atrial fibrillation in the VF zone with a rate of 220. Patient now in sinus rhythm. We'll increase his sotalol to 120 twice a day. Continue Coreg at 6.25 twice a day and he can follow-up in our office following his right heart catheter tomorrow for further evaluation. Recommendations after right heart catheter tomorrow if necessary documented in this encounter Plan of Treatment Not on file documented as of this encounter Visit Diagnoses Not on filedocumented in this encounter
--- OUTSIDE RECORDS SUMMARY | 2025-01-08 15:09 | XMS_ITS | Encounter Summary ---
Author Organization [employer] ([place], [place], [place], [place], [place]) Address [address] [place] [address] Care Team Providers Care Segment Producer Name Role Phone Unavailable Primary Care Provider Unavailabl e Encounter Details Date Type Department Care Team (Late st Contact Info) Description 03/28/2018 Transcribed Document [facility] [place] Family Medicine [facility] [place] [address] ProviderMg MD [facility] [place] [address] Social History Tobacco Use Types Packs/Day Years Used Date Smoking Tobacco: Never Assessed Sex and Gender Information Value Date Recorded Sex Assigned at Not on file Legal Sex Male 1:09 PM CDT Gender Identity Not on file Sexual Orientation Not on file documented as of this encounter Miscellaneous Notes * Cerner Conversion Note - Historical ProviderMD - 03/28/2018 1:36 PM FOAM FABRICATOR Cardiac and Pulmonary Outpatient [facility] Entered On: 03/29/2018 15:22 EST Performed On: 03/28/2018 13:36 EST by EDITH CHAVIS RN Cardiac and Pulmonary Outpatient [facility] Phase 2 Cardiac Rehab Criteria Met : Heart failure (HF) Cardiac Outpatient Rehab Evaluation Comment : Order faxed to [facility] per pt location. EDITH CHAVIS RN - 03/29/2018 15:22 EST documented in this encounter Plan of Treatment Not on file documented as of this encounter Visit Diagnoses Not on filedocumented in this encounter
--- OUTSIDE RECORDS SUMMARY | 2025-01-08 15:09 | XMS_ITS | Encounter Summary ---
Author Organization [employer] ([place], [place], [place], [place], [place]) Address [address] [place] [address] Care Team Providers Care Locker Plant Attendant Name Role Phone Unavailable Primary Care Provider Unavailrodrick e Encounter Details Date Type Department Care Team (Late st Contact Info) Description 03/28/2018 Transcribed Document [facility] [place] Family Medicine [address] [place] [address] ProviderMg MD [facility] [place] [address] Social History Tobacco Use Types Packs/Day Years Used Date Smoking Tobacco: Never Assessed Sex and Gender Information Value Date Recorded Sex Assigned at Not on file Legal Sex Male 1:09 PM CDT Gender Identity Not on file Sexual Orientation Not on file documented as of this encounter Miscellaneous Notes * Cerner Conversion Note - Historical ProviderMD - 03/28/2018 1:36 PM MOBILE HOME PARK MANAGER Education-Cardiac Topics Entered On: 03/28/2018 14:58 EST Performed On: 03/28/2018 13:36 EST by BRIAN BEASLEY RN Teaching/Learning Assessment Barriers To Learning : None evident Highest Level of Education : Some college Learning Style Preferences Patient : None Learning Style Preferences Family : None BRIAN BEASLEY RN - 03/28/2018 14:58 EST Electronically signed by Jackie [facility] Conversion Trim Line Worker Cerner at 06/19/2022 11:03 PM CDT documented in this encounter Plan of Treatment Not on file documented as of this encounter Visit Diagnoses Not on filedocumented in this encounter
--- OUTSIDE RECORDS SUMMARY | 2025-01-08 15:10 | XMS_ITS | Encounter Summary ---
Author Organization [facility] Address [address] [place] [address] Care Team Providers Care Adobe Flex Developer Name Role Phone Herberth Perez MD Primary Care Provider Katrin Oviedo RN Unavailable [phone] Zaida Lafleur WELDING SPECIALIST Unavailable [phone] Gracia Petersen WELDING SPECIALIST Unavailable Yunior Solorzano MD Unavailable [phone] Ross Baez DO Unavailable Edith Aleman RN Unavailable Unavailable Reason for Visit * Reason Comments Med Refill Encounter Details Date Type Department Care Team (Late st Contact Info) Description 10/08/2020 Refill [facility] [address] [place] [address] Deandre Sanchez MD [address] [place] [address] Social History Tobacco Use Types Packs/Day Years Used Date Smoking Tobacco: Never Smokeless Tobacco: Former Chew Quit: 05/06/2019 Alcohol Use Standard Drinks/Week Comments Not Currently 0 (1 standard drink = 0.6 oz pure alcohol) Alcoholic Drinks/day: Social alcohol use Sex and Gender Information Value Date Recorded Sex Assigned at Male 08/25/2020 11:15 AM EDT Legal Sex Male 8:00 PM EDT Gender Identity Male 08/25/2020 11:15 AM EDT Sexual Orientation Straight 08/25/2020 11 :15 AM EDT COVID-19 Exposure Response Date Recorded In the last month, have you been in contact with someone who was confirmed or suspected to have Coronavirus / COVID-19? No / Unsure 10/01/2020 3:40 PM EDT documented as of this encounter Miscellaneous Notes * Telephone Encounter - Gardenia Martinez - 10/09/2020 10:23 AM EDT Approving, but needs appt for additional refills. documented in this encounter Plan of Treatment Upcoming Encounters Date Type Department Care Team (Late st Contact Info) Description 01/28/2025 9:00 AM EST Appointment Cardiac Imaging [address] [place] [address] 01/28/2025 10:00 AM EST Ancillary Procedure [facility] [place] [facility] [address] 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 MDRO Escalation Plan Comment:MDRO escalation plan through 05/06/24 04/15/2024 04/15/2024 04/20/2024 5:[address] Assessment Noted Time A fall risk assessment has been complete d for the patient 09/23/2020 12:59 PM EDT documented as of this encounter Care Teams Adobe Flex Developer Relationship Specialty Start Date End Date Herberth Perez MD [address] [place] [address] [place] [address] PCP - General 07/17/20 Katrin Oviedo, RN [facility] [address] [place] [address] VAD Coordinator Cardiology 08/06/20 10/21/24 Zaida Lafleur APRN [address] [place] [address] Nurse Practitioner Advanced Heart Failure and Transplant Cardiology 08/06/20 06/11/23 Gracia Petersen APRN [address] [place] [address] Nurse Practitioner Internal Medicine 08/06/20 Yunior Solorzano MD [address] [place] [address] Consulting Physician Gastroenterology 07/18/22 oRss Baez DO [address] [id number] Surgeon Cardiothoracic Surgery 07/18/22 Edith Aleman, CHIEF LIBRARIAN [facility] VAD Coordinator 10/14/24 documented as of this encounter
--- OUTSIDE RECORDS SUMMARY | 2025-01-08 15:10 | XMS_ITS | Encounter Summary ---
Author Organization [employer] ([place], [place], [place], [place], [place]) Address [address] [place] [address] Care Team Providers Care Program Management Professional Name Role Phone Unavailable Primary Care Provider Unavailabl e Encounter Details Date Type Department Care Team (Late st Contact Info) Description 05/17/2019 Transcribed Document [facility] [place] Family Medicine [facility] of [facility] [place] [address] ProviderMg MD On [facility] [place], [place] [id number] Social History Tobacco Use Types Packs/Day Years Used Date Smoking Tobacco: Never Assessed Sex and Gender Information Value Date Recorded Sex Assigned at Not on file Legal Sex Male 1:09 PM CDT Gender Identity Not on file Sexual Orientation Not on file documented as of this encounter Miscellaneous Notes * Cerner Conversion Note - Mg Ritchie MD - 05/17/2019 12:53 PM CDT Patient: JOSE PEARSON Age: 47 years Sex: Male : 1970 Associated Diagnoses: None Author: SO BURDICK MD-CAR ADMIT 05/03 DC 05/09 Subjective soa is better, but he has been cramping with diuretics. Health Status Allergies: Allergic Reactions (Selected) No Known Medication Allergies, Allergies (1) Active Reaction No Known Medication Allergies None Documented Current medications: (Selected) Prescriptions Prescribed Aldactone 25 mg oral tablet: 2 Tab, Oral, Daily, 60 Tab, 0 Refill(s) Tikosyn 125 mcg oral capsule: 3 Cap, Oral, BID, 180 Cap, 0 Refill(s) bumetanide 2 mg oral tablet: 1 Tab, Oral, BID, 60 Tab, 0 Refill(s) metOLazone 10 mg oral tablet: 1 Tab, Oral, Daily, 30 Tab, 0 Refill(s) Documented Medications Documented Entresto 24 mg-26 mg oral tablet: 1 Tab, Oral, BID, 0 Refill(s) FLUoxetine 20 mg oral capsule: 1 Cap, Oral, At Bedtime, 60 Cap, 0 Refill(s) Melatonin 3 mg oral tablet: 1 Tab, Oral, At Bedtime, 0 Refill(s) Nitrostat 0.4 mg sublingual tablet: 1 Tab, SubLINgual, Q5Min, If chest pain not relieved in 5 minutes after first dose, seek immediate medical attention not to exceed 3 doses/15 min--if pain persists, seek medical attention, PRN: as needed for chest pain, 100 Tab, 0 Refill(s) Singulair 10 mg oral tablet: 1 Tab, Oral, Daily, 0 Refill(s) Xarelto 20 mg oral tablet: 1 Tab, Oral, Daily, 30 Tab, 0 Refill(s) carvedilol 3.125 mg oral tablet: 0 Refill(s) cetirizine 10 mg oral tablet: 1 Tab, Oral, Daily, 0 Refill(s) pravastatin 80 mg oral tablet: 1 Tab, Oral, At Bedtime, 0 Refill(s), Home Medications (13) Active Aldactone 25 mg oral tablet 50 mg = 2 Tab, Oral, Daily bumetanide 2 mg oral tablet 2 mg = 1 Tab, Oral, BID carvedilol 3.125 mg oral tablet cetirizine 10 mg oral tablet 10 mg = 1 Tab, Oral, Daily Entresto 24 mg-26 mg oral tablet 1 Tab, Oral, BID FLUoxetine 20 mg oral capsule 20 mg = 1 Cap, Oral, At Bedtime Melatonin 3 mg oral tablet 3 mg = 1 Tab, Oral, At Bedtime metOLazone 10 mg oral tablet 10 mg = 1 Tab, Oral, Daily Nitrostat 0.4 mg sublingual tablet 0.4 mg = 1 Tab, PRN, SubLINgual, Q5Min pravastatin 80 mg oral tablet 80 mg = 1 Tab, Oral, At Bedtime Singulair 10 mg oral tablet 10 mg = 1 Tab, Oral, Daily Tikosyn 125 mcg oral capsule 375 mcg = 3 Cap, Oral, BID Xarelto 20 mg oral tablet 20 mg = 1 Tab, Oral, Daily , No qualifying data available Problem list: Medical angina / SNOMED CT 237931097 / Confirmed Cardiac defibrillator in place / SNOMED CT 6606329884 / Confirmed interrogated at physicians office---02/22/13 pacemaker / SNOMED CT 5210774783 / Confirmed stroke / SNOMED CT 616875305 / Confirmed he had a stroke when they found the blood clot in valve History of obstructive sleep apnea / IMO 99478757 / Confirmed high cholesterol / SNOMED CT 84109132 / Confirmed hypertension / SNOMED CT 6166844300 / Confirmed myocardial infarction / SNOMED CT 83454788 / Confirmed sesonal allergies / SNOMED CT 0859679384 / Confirmed, Active Problems (16) stroke angina Asthma Cardiac defibrillator in place Cardiomyopathy GERD - Gastro-esophageal reflux disease H/O: CVA Heart failure high cholesterol History of obstructive sleep apnea Hyperlipidemia hypertension Hypotension myocardial infarction pacemaker sesonal allergies Objective VS/Measurements No qualifying data available General: Alert and oriented, No acute distress. Neck: No carotid bruit, No jugular venous distention. Respiratory: Lungs are clear to auscultation, Respirations are non-labored, Breath sounds are equal, Symmetrical chest wall expansion. Cardiovascular: Normal rate, Regular rhythm, No gallop, Good pulses equal in all extremities, Normal peripheral perfusion, 2/6 bere. Gastrointestinal: Soft, Non-tender, Non-distended, Normal bowel sounds. Integumentary: Warm, Dry, [place], No rash. Results Review General results [facility] placment 05/08/19: Hemodynamics in mmHg; mean RA 10, RV 56/12, PA 56/26, mean 38. Mean pulmonary capillary wedge pressure 34. Cardiac output by Marlene 3.69 L/minute. Cardiac index by Marlene 1.6 L/minute per sq m. 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 avila for gerardo clip eval - s/p 72h milrinone this admission - Entresto and Coreg changed to Bisoprolol and Losartan due to low BP and ventricular ectopy - He's had EF <20% since 2007. Typical survival rate is 1 year and he is now 12 years past diagnosis. - CardioMEMS placed 05/08/19 - 2 D Echo during primacor/milrenone infusion to asses LV reserve - no real change, EF still arond 20-25% Prolonged QTc Interval - Eval by Dr. Davis. Patient on 375 twice a day Tikosyn and he is monitoring. This is for VT. PAF-currently SR with hx of AV miroslava RFA - tikosyn 375 bid - ICD insitu nl fx per interrogation 05/09/19. Some afib noted on interrogation. -continue xarelto NSVT - numerous episodes - common for him with [facility] - Tikosyn Iatrogenic Hypotension - bisoprolol and losartan hypokalemia -replace as needed hypomag -replace Iron Deficiency -corrected Hyponatrem ia -dc bumex drip Plan: called [employer] rep. Patient PAD today is 18. dc bumex drip and tomorrow resume BID bume [address] Davis and he is managing tikosyn dosing. referral has been made to [facility] bmp bnp and mag level [address] Alberts seen and examined patient and devised the above plan of care. pER DR BURDICK: Spoke with Dr Davis -we both think tht the patient is safe enough to be discharged on reduced Tikosyn dose that he is on now. He has a BiV ICD insitu and had AV node ablation. Tikosyn initially given to control A Fib RVR which is out of tjhe picture due to the ablation plus sustained VT which he did not have for a while. He will see Dr Davis on monday in his office for further tikosyn adjustment. We will arrange for heart transplant team at [facility]. I had a long discussion with him and his regarding above plan and they feel comfortable going home today.. documented in this encounter Plan of Treatment Not on file documented as of this encounter Visit Diagnoses Not on filedocumented in this encounter
--- OUTSIDE RECORDS SUMMARY | 2025-01-08 15:10 | XMS_ITS | Encounter Summary ---
Author Organization [facility] Address [address] [id number] Care Team Providers Care Bulk Intake Worker Name Role Phone Herberth Perez MD Primary Care Provider Katrin Oviedo RN Unavailable [phone] Zaida Lafleur CANOE BUILDER Unavailable [phone] Gracia Petersen CANOE BUILDER Unavailable Yunior Solorzano MD Unavailable [phone] Ross Baez DO Unavailable [phone] Edith Aleman RN Unavailable Unavailable Encounter Details Date Type Department Care Team (Late st Contact Info) Description 05/21/2019 [facility] Historical OTTR [address] [place] [address] Shelbie Garcia, RN [id number] [address] [id number] Social History Tobacco Use Types Packs/Day Years Used Date Smoking Tobacco: Never Assessed Sex and Gender Information Value Date Recorded Sex Assigned at Male 08/25/2020 11:15 AM EDT Legal Sex Male 8:00 PM EDT Gender Identity Male 08/25/2020 11:15 AM EDT Sexual Orientation Straight 08/25/2020 11 :15 AM EDT documented as of this encounter Miscellaneous Notes * Progress Notes - Shelbie Garcia - 05/21/2019 10:21 AM EDT New referral discussed in conference. BMI 32. Evaluation testing was ordered 05/15/19. LVIDd 6.8cm, LVEF <20%. RHC performed at [facility] on 05/08/19 showed CI 1.6. SW consult showed that patient is minimally acceptable as a transplant patient due to current tobacco use and he would need to demonstrate 3mos tobacco cessation before being considered for transplant. Colonoscopy is current and due for repeat 2023. On chest CT, the patient has calcified granulomas bilaterally in the lungs, calcified lefthilar lymph nodes and calcified granulomas in the spleen. Panorex of the mandible recommended dental evaluation. KRISTIE's were abnormal on the right side showing evidence of significant arterial disease. The patient needs to have urine cotinine tested at each clinic visit and consults with CTS, palliative care and pharmacy were not completed during evaluation. The patient was not initiated on Milrinone therapy due to VT. He was shocked by ICD while inpatient and will need close monitoring of electrolytes as an outpatient. He will RTC next week to be seen by Kayla Jim and also follow up with referring MD. Referral for heart transplant will be closed at this time because the patient will not be listed for heart transplant due to active tobacco use (last used 05/14/19). documented in this encounter Plan of Treatment Upcoming Encounters Date Type Department Care Team (Late st Contact Info) Description 01/28/2025 9:00 AM EST Appointment Cardiac Imaging [address] [place] [address] 01/28/2025 10:00 AM EST Ancillary Procedure [facility] [place] [facility] 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 MDRO Escalation Plan Comment:MDRO escalation plan through 05/06/24 04/15/2024 04/15/2024 04/20/2024 5:[address] documented as of this encounter Care Teams Bulk Intake Worker Relationship Specialty Start Date End Date Herberth Perez MD [address] [place] [address] PCP - General 07/17/20 Katrin Oviedo, RN [facility] [address] [place] [address] VAD Coordinator Cardiology 08/06/20 10/21/24 Zaida Lafleur APRN [address] [place] [address] Nurse Practitioner Advanced Heart Failure and Transplant Cardiology 08/06/20 06/11/23 Gracia Petersen APRN [address] [place] [address] Nurse Practitioner Internal Medicine 08/06/20 Yunior Solorzano MD [address] [address] Consulting Physician Gastroenterology 07/18/22 Ross Baez, [address] [address] Surgeon Cardiothoracic Surgery 07/18/22 Edith Aleman, ENGINEERING PROFESSIONALS VAD Coordinator 10/14/24 documented as of this encounter
--- OUTSIDE RECORDS SUMMARY | 2025-01-08 15:10 | XMS_ITS | Encounter Summary ---
Author Organization [facility] Address [address] [place] [address] Care Team Providers Care Janitor Supervisor Name Role Phone Herberth Perez MD Primary Care Provider Katrin Oviedo RN Unavailable [phone] aZida Lafleur SEAFOOD HARVESTER Unavailable Gracia Petersen SEAFOOD HARVESTER Unavailable [phone] Yunior Solorzano MD Unavailable [phone] Ross Baez DO Unavailable [phone] Edith Aleman RN Unavailable Unavailable Reason for Visit * Reason Comments Med Refill Encounter Details Date Type Department Care Team (Late st Contact Info) Description 11/14/2021 Refill [facility] [place] [address] [place] [address] Dina Saldana, SEAFOOD HARVESTER [address] [place] [address] Social History Tobacco Use Types Packs/Day Years Used Date Smoking Tobacco: Never Smokeless Tobacco: Former Chew Quit: 05/06/2019 Alcohol Use Standard Drinks/Week Comments Not Currently 0 (1 standard drink = 0.6 oz pure alcohol) Alcoholic Drinks/day: Social alcohol use CAGE ASSESSMENT Answer Date Recorded Cage unable [...] drink first t janine in the morning (EYE-KOHINOOR OPERATOR) to steady your nerves or to get rid of a hangover? 0 09/19/2021 CAGE Questionnaire Score 0 022 Sex and Gender Information Value Date Recorded Sex Assigned at Male 08/25/2020 11:15 AM EDT Legal Sex Male 8:00 PM EDT Gender Identity Male 08/25/2020 11:15 AM EDT Sexual Orientation Straight 08/25/2020 11 :15 AM EDT documented as of this encounter Plan of Treatment Upcoming Encounters Date Type Department Care Team (Late st Contact Info) Description 01/28/2025 9:00 AM EST Appointment Cardiac Imaging [address] [place] [address] 01/28/2025 10:00 AM EST Ancillary Procedure [facility] [place] 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 MDRO Escalation Plan Comment:MDRO escalation plan through 05/06/24 04/15/2024 04/15/2024 04/20/2024 5:[address] Assessment Noted Time A fall risk assessment has been complete d for the patient 10/05/2021 9:59 AM EDT documented as of this encounter Care Teams Janitor Supervisor Relationship Specialty Start Date End Date Herberth Perez MD [address] [place] [address] [place] [address] PCP - General 07/17/20 Katrin Oviedo, RN [facility] [address] [place] [address] VAD Coordinator Cardiology 08/06/20 10/21/24 Zaida Lafleur APRN [address] [place] [address] Nurse Practitioner Advanced Heart Failure and Transplant Cardiology 08/06/20 06/11/23 Gracia Petersen APRN [address] [place] [address] Nurse Practitioner Internal Medicine 08/06/20 Yunior Solorzano MD [address] [place] [address] Consulting Physician Gastroenterology 07/18/22 Ross Baez, DO [address] [address] Surgeon Cardiothoracic Surgery 07/18/22 Edith Aleman, MERCHANDISE SUPERVISOR VAD Coordinator 10/14/24 documented as of this encounter
--- OUTSIDE RECORDS SUMMARY | 2025-01-08 15:10 | XMS_ITS | Clinical Summary ---
Author Organization [employer] ([place], [place], [place], [place], [place]) Address [address] [place] [address] Care Team Providers Care Centerless Grinder Name Role Phone Unavailable Primary Care Provider Unavailabl e Social History Tobacco Use Types Packs/Day Years Used Date Smoking Tobacco: Never Assessed Sex and Gender Information Value Date Recorded Sex Assigned at Not on file Legal Sex Male 1:09 PM CDT Gender Identity Not on file Sexual Orientation Not on file Plan of Treatment Not on file
--- OUTSIDE RECORDS SUMMARY | 2025-01-08 15:10 | XMS_ITS | Encounter Summary ---
Author Organization [employer] ([place], [place], [place], [place], [place]) Address [address] [place] [address] Care Team Providers Care Occupational Health Rn Name Role Phone Unavailable Primary Care Provider Unavailabl e Encounter Details Date Type Department Care Team (Late st Contact Info) Description 04/12/2019 Transcribed Document [facility] [place] [facility] [place] [address] ProviderMg MD [facility] [place] [address] Social History Tobacco Use Types Packs/Day Years Used Date Smoking Tobacco: Never Assessed Sex and Gender Information Value Date Recorded Sex Assigned at Not on file Legal Sex Male 1:09 PM CDT Gender Identity Not on file Sexual Orientation Not on file documented as of this encounter Miscellaneous Notes * Cerner Conversion Note - Historical ProviderMD - 04/12/2019 11:57 AM COMMUNICATIONS TECH Therapy Screen, PT Entered On: 04/12/2019 11:59 EST Performed On: 04/12/2019 11:57 EST by PAUL GARCES PT Therapy Screen, PT Medical Chart Reviewed : Yes Person Providing Information : Nurse, Patient Screen Completed : Yes Recommendation for Evaluation, PT : None Recommendations Upon Discharge : None PAUL GARCES PT - 04/12/2019 11:57 EST Electronically signed by Jackie [facility] Conversion Hydraulic Press Operator Cerner at 06/19/2022 11:04 PM CDT documented in this encounter Plan of Treatment Not on file documented as of this encounter Visit Diagnoses Not on filedocumented in this encounter
--- OUTSIDE RECORDS SUMMARY | 2025-01-08 15:10 | XMS_ITS | Encounter Summary ---
Author Organization [employer] ([place], [place], [place], [place], [place]) Address [address] [place] [address] Care Team Providers Care Case Assistant Name Role Phone Unavailable Primary Care Provider Unavailabl e Encounter Details Date Type Department Care Team (Late st Contact Info) Description 05/22/2019 Transcribed Document [facility] [place] Family Medicine [facility] [place] [address] ProviderMg MD [facility] [place] [address] Social History Tobacco Use Types Packs/Day Years Used Date Smoking Tobacco: Never Assessed Sex and Gender Information Value Date Recorded Sex Assigned at Not on file Legal Sex Male 1:09 PM CDT Gender Identity Not on file Sexual Orientation Not on file documented as of this encounter Miscellaneous Notes * Cerner Conversion Note - Historical ProviderMD - 05/22/2019 12:43 PM CDT Cardiac and Pulmonary Outpatient [facility] Entered On: 05/22/2019 12:43 EDT Performed On: 05/22/2019 12:43 EDT by EDITH CHAVIS technical translator and Pulmonary Outpatient [facility] Cardiac Outpatient Rehab Evaluation Comment : [facility] RN - 05/22/2019 12:43 EDT documented in this encounter Plan of Treatment Not on file documented as of this encounter Visit Diagnoses Not on filedocumented in this encounter
--- OUTSIDE RECORDS SUMMARY | 2025-01-08 15:10 | XMS_ITS | Encounter Summary ---
Author Organization [employer] ([place], [place], [place], [place], [place]) Address [address] [place] [address] Care Team Providers Care Produce Manager Name Role Phone Unavailable Primary Care Provider Unavailabl e Encounter Details Date Type Department Care Team (Late st Contact Info) Description 2019 Transcribed Document [facility] [place] [facility] [place] [address] ProviderMg MD [facility] [place] [address] Social History Tobacco Use Types Packs/Day Years Used Date Smoking Tobacco: Never Assessed Sex and Gender Information Value Date Recorded Sex Assigned at Not on file Legal Sex Male 1:09 PM CDT Gender Identity Not on file Sexual Orientation Not on file documented as of this encounter Miscellaneous Notes * Cerner Conversion Note - Mg ProviderMD - 2019 2:12 PM SORTING AND FOLDING SUPERVISOR On Going Discharge Planning Entered On: 2019 14:13 EST Performed On: 2019 14:12 EST by Alyse Townsend Social Worker-Agitator Operator Care Management Progress Note Discharge Arrangements : Patient Post-Acute Information Patient Name: JOSE PEARSON Gender: Male : [birth year] Age: 48 Years No Post-Acute Placement(s) Listed No Post-Acute Service(s) Listed No [place] Referral(s) Listed Alyse Townsend Social Worker-Agitator Operator - 2019 14:12 EST Narrative Progress Note Narrative Progress Note : 05/09 Per chart, Dr. Davis was consulted for tikosyn dosing. Continue to follow... Historical Progress Note : 05/08 Per documentation left by Paula Villeda RN CM, referral information was sent to [facility] cardiac transplant program. Alyse Townsend Social Worker-Agitator Operator - 05/09/19 08:57:21 05/06 Received order to make referral to outpatient cardiac transplant program. Contacted [facility] appointment telephone number [phone]. They report the person who typically takes the referrals is unavailable and they will have her contact CM back. CM contact information was provided. They report the referral/licensing coordinator is Kailey PH: [phone]. Alyse Townsend Social Worker-Agitator Operator - 05/07/19 15:01:13 Per RN in Multidisciplinary rounds patient is NPO for scheduled Cardiomems today. Having some nausea after Fe Infusions requested the infusion be held until after procedure so he can eat. CM will follow. TANVIR THAYER Rn-Scheduling Manager - 05/06/19 11:03:45 Alyse Townsend Social Worker-Agitator Operator - 2019 14:12 EST Electronically signed by [facility] Conversion Steam Tank Operator Cerner at 06/19/2022 10:56 PM CDT documented in this encounter Plan of Treatment Not on file documented as of this encounter Visit Diagnoses Not on filedocumented in this encounter
--- OUTSIDE RECORDS SUMMARY | 2025-01-08 15:10 | XMS_ITS | Referral Summary ---
Author Organization [employer] ([place], [place], [place], [place], [place]) Address [address] [place] [address] Care Team Providers Care Adult Family Home Program Manager Name Role Phone Unavailable Primary Care [...]
--- OUTSIDE RECORDS SUMMARY | 2025-01-08 15:10 | XMS_ITS | Encounter Summary ---
Author Organization [employer] ([place], [place], [place], [place]) Address [address] [place] [address] Care Team Providers Care Senior Technical Support Engineer Name Role Phone Unavailable Primary Care Provider Unavailabl e Encounter Details Date Type Department Care Team (Late st Contact Info) Description 04/13/2019 Transcribed Document [facility] [place] [facility] [place] [address] ProviderMg MD [facility] [place] [id number] Social History Tobacco Use Types Packs/Day Years Used Date Smoking Tobacco: Never Assessed Sex and Gender Information Value Date Recorded Sex Assigned at Not on file Legal Sex Male 1:09 PM CDT Gender Identity Not on file Sexual Orientation Not on file documented as of this encounter Miscellaneous Notes * Cerner Conversion Note - Mg ProviderMD - 04/13/2019 5:29 PM REPTILE FARMER Final Discharge Planning Entered On: 04/13/2019 17:29 EST Performed On: 04/13/2019 17:29 EST by ADELAIDE SOLARES, Rn-Director Of Scout Work Final Discharge Planning Discharge Arrangements : Patient Post-Acute Information Patient Name: JOSE PEARSON Gender: Male : [birth year] Age: 48 Years No Post-Acute Placement(s) Listed No Post-Acute Service(s) Listed No Curaspan Referral(s) Listed Discharge To Care Management : Home/Residential/Prison or Self Care -01 ADELAIDE SOLARES, Rn-Director Of Scout Work - 04/13/2019 17:29 EST documented in this encounter Plan of Treatment Not on file documented as of this encounter Visit Diagnoses Not on filedocumented in this encounter
--- OUTSIDE RECORDS SUMMARY | 2025-01-08 15:10 | XMS_ITS | Encounter Summary ---
Author Organization [employer] ([place], [place], [place], [place]) Address [address] [place] [address] Care Team Providers Care Blood Bank Booking Clerk Name Role Phone Unavailable Primary Care Provider Unavailabl e Encounter Details Date Type Department Care Team (Late st Contact Info) Description 2019 Transcribed Document [facility] [place] [facility] [place] [address] ProviderMg MD [facility] [place] [address] Social History Tobacco Use Types Packs/Day Years Used Date Smoking Tobacco: Never Assessed Sex and Gender Information Value Date Recorded Sex Assigned at Not on file Legal Sex Male 1:09 PM CDT Gender Identity Not on file Sexual Orientation Not on file documented as of this encounter Miscellaneous Notes * Cerner Conversion Note - Historical ProviderMD - 2019 8:38 PM FIELD ARTILLERY BASIC Stroke/Warfarin Instructions Entered On: 2019 20:38 EST Performed On: 2019 20:38 EST by EVE NGUYEN RN Stroke/Warfarin Instructions Stroke/TIA Discharge Ins : N/A Warfarin Discharge Ins : N/A EVE NGUYEN RN - 2019 20:38 EST documented in this encounter Plan of Treatment Not on file documented as of this encounter Visit Diagnoses Not on filedocumented in this encounter
--- OUTSIDE RECORDS SUMMARY | 2025-01-08 15:10 | XMS_ITS | Encounter Summary ---
Author Organization [employer] ([place], [place], [place], [place]) Address [address] [place] [address] Care Team Providers Care Fur Dressing Supervisor Name Role Phone Unavailable Primary Care Provider Unavailabl e Encounter Details Date Type Department Care Team (Late st Contact Info) Description 2019 Transcribed Document [facility] [place] [facility] [place] [address] ProviderMg MD [place] [address] Social History Tobacco Use Types Packs/Day Years Used Date Smoking Tobacco: Never Assessed Sex and Gender Information Value Date Recorded Sex Assigned at Not on file Legal Sex Male 1:09 PM CDT Gender Identity Not on file Sexual Orientation Not on file documented as of this encounter Miscellaneous Notes * [employer]ner Conversion Note - Mg ProviderMD - 2019 3:00 AM SKILLED NURSING FACILITIES PROFESSIONAL Nutrition Assessment Entered On: 2019 11:24 EST Performed On: 2019 11:24 EST by Gracia Sneed Clinical Dietitian Nutrition Assessment Nutrition Assessment Reason : Follow Up Gracia Sneed, Clinical Dietitian - 2019 11:24 EST Nutrition Recommendations Dietitian Recommendations : 05/09: Rescreen: Pt seen on 3rd floor, noted CadrioMEMS placed 3/4. supply chain program manager noted referral made to outpatient cardiac transplant program. Pt is on cardiac diet, intakes 100% x 5. Pt states eating good, declined needs. LBM 3/4, active BS, no skin breakdown noted. No nutritional risk identified, handout regarding heart healthy diet and low sodium in discharge summary. Rescreen in 7-10 days. (3/2) RD rescreen; pt discussed in ICU rounds. Plans for cardio mem today. Pt has been on a cardiac diet eating 50-100% x 4 meals recorded. Labs and meds reviewed. Pt [facility] with [facility] @ 0.375mcg/kg/min. LBM -receiving colace. No skin issues noted. Still unable to assess for diet edu needs at this time. Pt was having nausea this AM from iron. No nutritional concerns at this time. RD will rescreen in 4-5 days or available prn. (05/03) RD rec'd routine cardiology consult. Pt discussed in ICU rounds. RN noted that pt was a direct admit from cardiology office for milrinone drip for acute on chronic left systolic heart failure. No H&P currently. Pt is on a cardiac diet with intake being established. Labs and meds reviewed. No skin or GI issues noted. RD will check on in 2-3 days for appetite establishment and diet edu needs or available prn. Gracia Sneed, Clinical Dietitian - 2019 15:53 EST documented in this encounter Plan of Treatment Not on file documented as of this encounter Visit Diagnoses Not on filedocumented in this encounter
--- OUTSIDE RECORDS SUMMARY | 2025-01-08 15:10 | XMS_ITS | Encounter Summary ---
Author Organization [facility] Address [address] [facility] [address] [place] [address] Care Team Providers Care Global Marketing Operations Manager Name Role Phone Herberth Perez MD Primary Care Provider [phone] Katrin Oviedo RN Unavailable [phone] Zaida Lafleur CHIEF OPERATING OFFICER Unavailable [phone] Gracia Petersen CHIEF OPERATING OFFICER Unavailable [phone] Yunior Solorzano MD Unavailable [phone] Ross Baez DO Unavailable [phone] Edith Aleman RN Unavailable Unavailable Reason for Visit * Reason Comments Med Refill Encounter Details Date Type Department Care Team (Late st Contact Info) Description 08/20/2021 Refill [facility] [place] [facility] [address] [place] [address] Gracia Petersen, CHIEF OPERATING OFFICER [address] [place] [address] Social History Tobacco Use Types Packs/Day Years [...] Exposure Response Date Recorded In the last 10 days, have yo u been in contact with someone who was confirmed or suspected to have Coronavirus/COVID-19? No / Unsure 07/27/2021 9:40 AM EDT documented as of this encounter Plan of Treatment Upcoming Encounters Date Type Department Care Team (Late st Contact Info) Description 01/28/2025 9:00 AM EST Appointment Cardiac Imaging [address] [place] [address] 01/28/2025 10:00 AM EST Ancillary Procedure [facility] [place] [facility] [address] 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 MDRO Escalation Plan Comment:MDRO escalation plan through 05/06/24 04/15/2024 04/15/2024 04/20/2024 5:[address] Assessment Noted Time A fall risk assessment has been complete d for the patient 07/27/2021 10:04 AM EDT documented as of this encounter Care Teams Global Marketing Operations Manager Relationship Specialty Start Date End Date Herberth Perez MD [address] [place] [address] [place] [address] PCP - General 07/17/20 Katrin Oviedo, RN [facility] [address] [place] [address] VAD Coordinator Cardiology 08/06/20 10/21/24 Zaida Lafleur APRN [address] [place] [address] Nurse Practitioner Advanced Heart Failure and Transplant Cardiology 08/06/20 06/11/23 Gracia Petersen APRN [address] [place] [address] Nurse Practitioner Internal Medicine 08/06/20 Yunior Solorzano MD [address] [place] [address] Consulting Physician Gastroenterology 07/18/22 Ross Baez, [address] [place] [address] Surgeon Cardiothoracic Surgery 07/18/22 Edith Aleman, MACHINE STONE POLISHER APPRENTICE VAD Coordinator 10/14/24 documented as of this encounter
--- OUTSIDE RECORDS SUMMARY | 2025-01-08 15:10 | XMS_ITS | Encounter Summary ---
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 Name Role Phone Unavailable Primary Care Provider Unavailabl e Encounter Details Date Type Department Care Team (Late st Contact Info) Description 2019 Transcribed Document [facility] [facility] [place] [address] ProviderMg MD [facility] [place] [address] Social History Tobacco Use Types Packs/Day Years Used Date Smoking Tobacco: Never Assessed Sex and Gender Information Value Date Recorded Sex Assigned at Not on file Legal Sex Male 1:09 PM CDT Gender Identity Not on file Sexual Orientation Not on file documented as of this encounter Miscellaneous Notes * [employer] Conversion Note - Mg ProviderMD - 2019 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 Policy Number: Authorization Number: Insurance Primary Name : [employer] [id number] Authorization Status-Primary : Admit approved Authorization Number-Primary : [id number] Number of Days Authorized-Primary : 6 Day(s) Authorized Service Begin Date-Primary : 05/03/2019 EST Authorized Service End Date-Primary : 05/09/2019 EST Authorization Comments-Primary : Continued stay clinicals faxed via [employer] Historical Authorization Comments-Primary : Comment 1: [employer] approved per Katrin for total of 7 days --- nrd 05/09 (CHARLA BARRAZA RN-Utilization Review 05/08/2019 15:22) Comment 2: Clinicals for CS faxed via [employer] (THORNTON, MARLENE, Rn-Utilization Review 05/08/2019 14:43) Comment 3: [place] approved per Katrin for 5 days total --- nrd 05/07 (CHARLA BARRAZA, RN-Utilization Review 05/06/2019 13:43) Comment 4: Uploaded continuing stay clinicals (05/06/19) to [facility] via [employer]. (ARMANDO SHANNON, RN-Utilization Review 05/06/2019 12:11) Comment 5: Per [facility], admit approved with auth #[id number] given from 05/03-05/05/19. Next review date 05/06/19. (ARMANDO SHANNON, RN-Utilization Review 05/06/2019 08:05) Comment 6: Uploaded clinicals to [facility] administrators via [employer]. Manually faxed ARC form. (ARMANDO SHANNON, RN-Utilization Review 05/03/2019 13:31) Trudi Gaona, Rn-Utilization Review - 2019 12:15 EST documented in this encounter Plan of Treatment Not on file documented as of this encounter Visit Diagnoses Not on filedocumented in this encounter
--- OUTSIDE RECORDS SUMMARY | 2025-01-08 15:10 | XMS_ITS | Encounter Summary ---
Author Organization [facility] Address [address] [place] [address] Care Team Providers Care Surveyor'S Assistant Name Role Phone Herberth Perez MD Primary Care Provider Katrin Oviedo RN Unavailable [phone] Zaida Lafleur NUCLEAR PHYSICIST Unavailable [phone] Gracia Petersen NUCLEAR PHYSICIST Unavailable Yunior Solorzano MD Unavailable [phone] Ross Baez DO Unavailable Edith Aleman RN Unavailable Unavailable Encounter Details Date Type Department Care Team (Late st Contact Info) Description 11/10/2020 Community [facility] [address] [place] [address] Herberth Perez MD [address] [place] [id number] Gross hematuria (Primary Dx) Social History Tobacco Use Types Packs/Day Years [...] or suspected to have Coronavirus / COVID-19? Unable to assess 11/13/2020 10:26 AM EDT documented as of this encounter Plan of Treatment Upcoming Encounters Date Type Department Care Team (Late st Contact Info) Description 01/28/2025 9:00 AM EST Appointment Cardiac Imaging [address] [place] [address] 01/28/2025 10:00 AM EST Ancillary Procedure [facility] [place] [address] 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 MDRO Escalation Plan Comment:MDRO escalation plan through 05/06/24 04/15/2024 04/15/2024 04/20/2024 5:[address] Assessment Noted Time A fall risk assessment has been complete d for the patient 09/23/2020 12:59 PM EDT documented as of this encounter Care Teams Surveyor'S Assistant Relationship Specialty Start Date End Date Herberth Perez MD [address] [place] [address] [place] [address] PCP - General 07/17/20 Katrin Oviedo, RN [facility] [address] [place], [place] [id number] VAD Coordinator Cardiology 08/06/20 10/21/24 Zaida Lafleur APRN [address] [place] [phone] Nurse Practitioner Advanced Heart Failure and Transplant Cardiology 08/06/20 06/11/23 Gracia Petersen, LORI [address] [place] [id number] Nurse Practitioner Internal Medicine 08/06/20 Yunior Solorzano MD [address] [place] [address] Consulting Physician Gastroenterology 07/18/22 Ross Baez DO [address] [address] Surgeon Cardiothoracic Surgery 07/18/22 Edith Aleman, RODEO CLOWN VAD Coordinator 10/14/24 documented as of this encounter
--- OUTSIDE RECORDS SUMMARY | 2025-01-08 15:10 | XMS_ITS | Encounter Summary ---
Author Organization [facility] ([place], [place], [place], [place], [place]) Address [address] [place] [address] Care Team Providers Care Bolt Man Name Role Phone Unavailable Primary Care Provider Unavailabl e Encounter Details Date Type Department Care Team (Late st Contact Info) Description 2019 Transcribed Document [facility] Family Medicine [facility] [place] [address] ProviderMg MD [facility] [place] [address] Social History Tobacco Use Types Packs/Day Years Used Date Smoking Tobacco: Never Assessed Sex and Gender Information Value Date Recorded Sex Assigned at Not on file Legal Sex Male 1:09 PM CDT Gender Identity Not on file Sexual Orientation Not on file documented as of this encounter Miscellaneous Notes * Cerner Conversion Note - Mg Ritchie MD - 2019 8:38 PM MOLDER MEAT [place] [id number] JOSE PEARSON :1970 Visit Time:05/03/2019 Your Visit Summary Your Care Team Admitting Physician - SO BURDICK MD-CAR Attending Physician - SO BURDICK MD-CAR Primary Care Physician - FINN, UNKNOWN Referring Physician - SO BURDICK MD-CAR Your Diagnosis Acute on chronic left systolic heart failure Heart failure, unspecified, Heart failure, unspecified These Are Your Goals To get better and go home - Not met Discharge Vitals Temperature 36.7 ??C Heart Rate (Monitored) 56 Respiratory Rate 16 Blood Pressure 110/67 What to do next Instructions From Your Care Team Discharge Diet: Discharge Diet: Heart healthy diet Follow-Up Appointments Follow Up with JONATAN ISABEL When In 2 days 05/13/2019 EDT Comments Office to call with appoint/instructions Where: [address] [place] [address]- Business (1) Follow Up with SO BURDICK When Within 1 week Comments Office to call with appoint/instructions Where: [address] [place] [address]- Business (1) Medications What How Much When Instructions Next Dose bumetanide (bumetanide 2 mg oral tablet) 1 Tablet(s) Oral Two Times A Day Pickup at [place] [address] start 05/10 cyclobenzaprine (cyclobenzaprine 10 mg oral tablet) 0.5 Tablet(s) Oral Two Times A Day as needed for Cramping Pickup at [place] [address] as needed magnesium oxide (magnesium oxide 400 mg (240 mg elemental magnesium) oral tablet) 1 Tablet(s) Oral Two Times A Day Pickup at [place] [address] start 05/10 metOLazone (metOLazone 10 mg oral tablet) 1 Tablet(s) Oral Every Day Pickup at [place] [address] start 05/10 dofetilide (Tikosyn 125 mcg oral capsule) 3 Capsule(s) Oral Two Times A Day Pickup at [place] [address] start 05/10 spironolactone (Aldactone 25 mg oral tablet) 2 Tablet(s) Oral Every Day Pickup at [place] [address] start 05/10 carvedilol (carvedilol 3.125 mg oral tablet) start 05/10 cetirizine (cetirizine 10 mg oral tablet) 1 Tablet(s) Oral Every Day start 05/10 FLUoxetine (FLUoxetine 20 mg oral capsule) 1 Capsule(s) Oral At Bedtime start 05/10 melatonin (Melatonin 3 mg oral tablet) 1 Tablet(s) Oral At Bedtime start 05/10 montelukast (Singulair 10 mg oral tablet) 1 Tablet(s) Oral Every Day start 05/10 nitroglycerin (Nitrostat 0.4 mg sublingual tablet) 1 Tablet(s) SubLINgual Every 5 minutes as needed for as needed for chest pain If chest pain not relieved in 5 minutes after first dose, seek immediate medical attention not to exceed 3 doses/ 15 min--if pain persists, seek medical attention as needed for CP PRAVAstatin (pravastatin 80 mg oral tablet) 1 Tablet(s) Oral At Bedtime start 05/10 rivaroxaban (Xarelto 20 mg oral tablet) 1 Tablet(s) Oral Every Day start 05/10 sacubitril-valsartan (Entresto 24 mg-26 mg oral tablet) 1 Tablet(s) Oral Two Times A Day start 05/10 Pharmacy Information [facility] [address]: [address] [place], [place] [id number] [phone] Take your medications faithfully. Do NOT skip medication. Do NOT stop taking medications without the direction of a physician. Carry a list of your medications with you at all times, and take this medication list with you to your first follow up visit. Report any side effects. Avoid herbal remedies unless discussed with your physician. As part of your treatment plan, your physician may have prescribed a limited course of a controlled substance. This medication may be given to help people with moderate or severe pain or for other medical conditions, but there are risks involved with treatment. Common side effects may include nausea, constipation, drowsiness, sweating, itching, dry mouth, and rash. More serious side effects may include cognitive and motor impairment, like problems with thinking, concentrating, alertness, and movement (e.g. slowed reflexes), and driving and operating heavy machinery can be dangerous. It is important for you to talk to your physician if you have these side effects or questions. These controlled substances can produce physical dependence and be habit-forming if taken for an extended period of time, which means that the body has gotten used to them and may experience withdrawal symptoms if they are abruptly stopped. Withdrawal symptoms can include runny nose, sweating, goose bumps, diarrhea, abdominal cramping, rapid heartbeat, difficulty sleeping, and nervousness. Please dispose of unused and medications per your retail pharmacy guidance. Allergies No Known Medication Allergies Immunizations This Visit No Immunizations Found Education Materials Angiogram, Care After This sheet gives you information about how to care for yourself after your procedure. Your health care provider may also give you more specific instructions. If you have problems or questions, contact your health care provider. What can I expect after the procedure? After the procedure, it is common to have bruising and tenderness at the catheter insertion area. Follow these instructions at home: Insertion site care ??? Follow instructions from your health care provider about how to take care of your insertion site. Make sure you: ? Wash your hands with soap and water before you change your bandage (dressing). If soap and water are not available, use hand dairy equipment installer. ? Change your dressing as told by your health care provider. ? Leave stitches (sutures), skin glue, or adhesive strips in place. These skin closures may need to stay in place for 2 weeks or longer. If adhesive strip edges start to loosen and curl up, you may trim the loose edges. Do not remove adhesive strips completely unless your health care provider tells you to do that. ??? Do not take baths, swim, or use a hot tub until your health care provider approves. ??? You may shower 24???48 hours after the procedure or as told by your health care provider. ? Gently wash the site with plain soap and water. ? Pat the area dry with a clean towel. ? Do not rub the site. This may cause bleeding. ??? Do not apply powder or lotion to the site. Keep the site clean and dry. ??? Check your insertion site every day for signs of infection. Check for: ? Redness, swelling, or pain. ? Fluid or blood. ? Warmth. ? Pus or a bad smell. Activity ??? Rest as told by your health care provider, usually for 1???2 days. ??? Do not lift anything that is heavier than 10 lbs. (4.5 kg) or as told by your health care provider. ??? Do not drive for 24 hours if you were given a medicine to help you relax (sedative). ??? Do not drive or use heavy machinery while taking prescription pain medicine. General instructions ??? Return to your normal activities as told by your health care provider, usually in about a week. Ask your health care provider what activities are safe for you. ??? If the catheter site starts bleeding, lie flat and put pressure on the site. If the bleeding does not stop, get help right away. This is a medical emergency. ??? Drink enough fluid to keep your urine clear or pale yellow. This helps flush the contrast dye from your body. ??? Take jhbq-[id number]-qqawwcn and prescription medicines only as told by your health care provider. ??? Keep all follow-up visits as told by your health care provider. This is important. Contact a health care provider if: ??? You have a fever or chills. ??? You have redness, swelling, or pain around your insertion site. ??? You have fluid or blood coming from your insertion site. ??? The insertion site feels warm to the touch. ??? You have pus or a bad smell coming from your insertion site. ??? You have bruising around the insertion site. ??? You notice blood collecting in the tissue around the catheter site (hematoma). The hematoma may be painful to the touch. Get help right away if: ??? You have severe pain at the catheter insertion area. ??? The catheter insertion area swells very fast. ??? The catheter insertion area is bleeding, and the bleeding does not stop when you hold steady pressure on the area. ??? The area near or just beyond the catheter insertion site becomes pale, cool, tingly, or numb. These symptoms may represent a serious problem that is an emergency. Do not wait to see if the symptoms will go away. Get medical help right away. Call your local emergency services (911 in the [place] Do not drive yourself to the hospital. Summary ??? After the procedure, it is common to have bruising and tenderness at the catheter insertion area. ??? After the procedure, it is important to rest and drink plenty of fluids. ??? Do not take baths, swim, or use a hot tub until your health care provider says it is okay to do so. You may shower 24???48 hours after the procedure or as told by your health care provider. ??? If the catheter site starts bleeding, lie flat and put pressure on the site. If the bleeding does not stop, get help right away. This is a medical emergency. This information is not intended to replace advice given to you by your health care provider. Make sure you discuss any questions you have with your health care provider. Document Released: 09/08/2005 Document Revised: 01/25/2017 Document Reviewed: 01/25/2017 [employer] Interactive Patient Education ?? 2019 [employer] Heart-Healthy Eating Plan Many factors influence your heart health, including eating and exercise habits. Heart (coronary) risk increases with abnormal blood fat (lipid) levels. Heart-healthy meal planning includes limiting unhealthy fats, increasing healthy fats, and making other small dietary changes. This includes maintaining a healthy body weight to help keep lipid levels within a normal range. What is my plan? Your health care provider recommends that you: ??? Get no more than % of the total calories in your daily diet from fat. ??? Limit your intake of saturated fat to less than % of your total calories each day. ??? Limit the amount of cholesterol in your diet to less than mg per day. What types of fat should I choose? Choose healthy fats more often. Choose monounsaturated and polyunsaturated fats, such as olive oil and canola oil, flaxseeds, walnuts, almonds, and seeds. ??? Eat more omega-3 fats. Good choices include salmon, mackerel, sardines, tuna, flaxseed oil, and ground flaxseeds. Aim to eat fish at least two times each week. ??? Limit saturated fats. Saturated fats are primarily found in animal products, such as meats, butter, and cream. Plant sources of saturated fats include palm oil, palm kernel oil, and coconut oil. ??? Avoid foods with partially hydrogenated oils in them. These contain trans fats. Examples of foods that contain trans fats are stick margarine, some tub margarines, cookies, crackers, and other baked goods. What general guidelines do I need to follow? Check food labels carefully to identify foods with trans fats or high amounts of saturated fat. ??? Fill one half of your plate with vegetables and green salads. Eat 4???5 servings of vegetables per day. A serving of vegetables equals 1 cup of raw leafy vegetables, ?? cup of raw or cooked cut-up vegetables, or ?? cup of vegetable juice. ??? Fill one fourth of your plate with whole grains. Look for the word whole as the first word in the ingredient list. ??? Fill one fourth of your plate with lean protein foods. ??? Eat 4???5 servings of fruit per day. A serving of fruit equals one medium whole fruit, ?? cup of dried fruit, ?? cup of fresh, frozen, or canned fruit, or ?? cup of 100% fruit juice. ??? Eat more foods that contain soluble fiber. Examples of foods that contain this type of fiber are apples, broccoli, carrots, beans, peas, and barley. Aim to get 20???30 g of fiber per day. ??? Eat more home-cooked food and less restaurant, buffet, and fast food. ??? Limit or avoid alcohol. ??? Limit foods that are high in starch and sugar. ??? Avoid fried foods. ??? Cook foods by using methods other than frying. Baking, boiling, grilling, and broiling are all great options. Other fat-reducing suggestions include: ? Removing the skin from poultry. ? Removing all visible fats from meats. ? Skimming the fat off of stews, soups, and gravies before serving them. ? Steaming vegetables in water or broth. ??? Lose weight if you are overweight. Losing just 5???10% of your initial body weight can help your overall health and prevent diseases such as diabetes and heart disease. ??? Increase your consumption of nuts, legumes, and seeds to 4???5 servings per week. One serving of dried beans or legumes equals ?? cup after being cooked, one serving of nuts equals 1?? ounces, and one serving of seeds equals ?? ounce or 1 tablespoon. ??? You may need to monitor your salt (sodium) intake, especially if you have high blood pressure. Talk with your health care provider or dietitian to get more information about reducing sodium. What foods can I eat? Grains Breads, including Urdu, white, raymundo, wheat, raisin, rye, oatmeal, and Cypriot. Tortillas that are neither fried nor made with lard or trans fat. Low-fat rolls, including hotdog and hamburger buns and [place]raini muffins. Biscuits. Muffins. Waffles. Pancakes. Light popcorn. Whole-grain cereals. Flatbread. Janet toast. Pretzels. Breadsticks. Rusks. Low-fat snacks and crackers, including oyster, saltine, matzo, darci, animal, and rye. Rice and pasta, including brown rice and those that are made with whole wheat. Vegetables All vegetables. Fruits All fruits, but limit coconut. Meats and Other Protein Sources Lean, well-trimmed beef, veal, pork, and orosco. Chicken and turkey without skin. All fish and shellfish. Wild duck, rabbit, pheasant, and venison. Egg whites or low-cholesterol egg substitutes. Dried beans, peas, lentils, and tofu. Seeds and most nuts. Dairy Low-fat or nonfat cheeses, including ricotta, string, and mozzarella. Skim or 1% milk that is liquid, powdered, or evaporated. Buttermilk that is made with low-fat milk. Nonfat or low-fat yogurt. Beverages Mineral water. Diet carbonated beverages. Sweets and Desserts Sherbets and fruit ices. Honey, jam, marmalade, jelly, and syrups. Meringues and gelatins. Pure sugar candy, such as hard candy, jelly beans, gumdrops, mints, marshmallows, and small amounts of dark chocolate. [place] food cake. Eat all sweets and desserts in moderation. Fats and Oils Nonhydrogenated (trans-free) margarines. Vegetable oils, including soybean, sesame, sunflower, olive, peanut, safflower, corn, canola, and cottonseed. Salad dressings or mayonnaise that are made with a vegetable oil. Limit added fats and oils that you use for cooking, baking, salads, and as spreads. Other [place] powder. Coffee and tea. All seasonings and condiments. The items listed above may not be a complete list of recommended foods or beverages. Contact your dietitian for more options. What foods are not recommended? Grains Breads that are made with saturated or trans fats, oils, or whole milk. Croissants. Butter rolls. Cheese breads. Sweet rolls. Donuts. Buttered popcorn. Nelson mein noodles. High-fat crackers, such as cheese or butter crackers. Meats and Other Protein Sources Fatty meats, such as hotdogs, short ribs, sausage, spareribs, knowles, ribeye roast or steak, and mutton. High-fat deli meats, such as salami and bologna. Caviar. Domestic duck and goose. Organ meats, such as kidney, liver, sweetbreads, brains, gizzard, chitterlings, and heart. Dairy Cream, sour cream, cream cheese, and creamed cottage cheese. Whole milk cheeses, including blue (ana), [place], Brie, Temo, Andorran, Havarti, Norwegian, cheddar, Camembert, and [place]. Whole or 2% milk that is liquid, evaporated, or condensed. Whole buttermilk. Cream sauce or high-fat cheese sauce. Yogurt that is made from whole milk. Beverages Regular sodas and drinks with added sugar. Sweets and Desserts Frosting. Pudding. Cookies. Cakes other than diego food cake. Candy that has milk chocolate or white chocolate, hydrogenated fat, butter, coconut, or unknown ingredients. Buttered syrups. Full-fat ice cream or ice cream drinks. Fats and Oils Gravy that has suet, meat fat, or shortening. [place] butter, hydrogenated oils, palm oil, coconut oil, palm kernel oil. These can often be found in baked products, candy, fried foods, nondairy creamers, and whipped toppings. Solid fats and shortenings, including knowles fat, salt pork, lard, and butter. Nondairy cream substitutes, such as coffee creamers and sour cream substitutes. Salad dressings that are made of unknown oils, cheese, or sour cream. The items listed above may not be a complete list of foods and beverages to avoid. Contact your dietitian for more information. This information is not intended to replace advice given to you by your health care provider. Make sure you discuss any questions you have with your health care provider. Document Released: 11/29/2008 Document Revised: 09/09/2016 Document Reviewed: 08/14/2014 [employer] Interactive Patient Education ?? 2019 [employer] Living With Heart Failure Heart failure is a long-term (chronic) condition in which the heart cannot pump enough blood through the body. When this happens, parts of the body do not get the blood and oxygen they need. There is no cure for heart failure at this time, so it is important for you to take good care of yourself and follow the treatment plan set by your health care provider. If you are living with heart failure, there are ways to help you manage the disease. Follow these instructions at home: Living with heart failure requires you to make changes in your life. Your health care team will teach you about the changes you need to make in order to relieve your symptoms and lower your risk of going to the hospital. Follow the treatment plan as set by your health care provider. Medicines Medicines are important in reducing your heart's workload, slowing the progression of heart failure, and improving your symptoms. ??? Take slnl-vvk-wbhosun and prescription medicines only as told by your health care provider. ??? Do not stop taking your medicine unless your health care provider tells you to do that. ??? Do not skip any dose of your medicine. ??? Refill prescriptions before you run out of medicine. You need your medicines every day. Eating and drinking ??? Eat heart-healthy foods. Talk with a dietitian to make an eating plan that is right for you. ? If directed by your health care provider: ? Limit salt (sodium). Lowering your sodium intake may reduce symptoms of heart failure. Ask a dietitian to recommend heart-healthy seasonings. ? Limit your fluid intake. Fluid restriction may reduce symptoms of heart failure. ? Use low-fat cooking methods instead of frying. Low-fat methods include roasting, grilling, broiling, baking, poaching, steaming, and stir-frying. ? Choose foods that contain no trans fat and are low in saturated fat and cholesterol. Healthy choices include fresh or frozen fruits and vegetables, fish, lean meats, legumes, fat-free or low-fat dairy products, and whole-grain or high-fiber foods. ??? Limit alcohol intake to no more than 1 drink a day for non women and 2 drinks a day for men. One drink equals 12 oz of beer, 5 oz of wine, or 1?? oz of hard liquor. ? Drinking more than that is harmful to your heart. Tell your health care provider if you drink alcohol several times a week. ? Talk with your health care provider about whether any level of alcohol use is safe for you. Activity ??? Ask your health care provider about attending cardiac rehabilitation. These programs include aerobic physical activity, which provides many benefits for your heart. ??? If no cardiac rehabilitation program is available, ask your health care provider what aerobic exercises are safe for you to do. Lifestyle Make the lifestyle changes recommended by your health care provider. In general: ??? Lose weight if your health care provider tells you to do that. Weight loss may reduce symptoms of heart failure. ??? Do not use any products that contain nicotine or tobacco, such as cigarettes or e-cigarettes. If you need help quitting, ask your health care provider. ??? Do not use street (illegal) drugs. ??? Return to your normal activities as told by your health care provider. Ask your health care provider what activities are safe for you. General instructions ??? Make sure you weigh yourself every day to track your weight. Rapid weight gain may indicate an increase in fluid in your body and may increase the workload of your heart. ? Weigh yourself every morning. Do this after you urinate but before you eat breakfast. ? Wear the same type of clothing, without shoes, each time you weigh yourself. ? Weigh yourself on the same scale and in the same spot each time. ??? Living with chronic heart failure often leads to emotions such as fear, stress, anxiety, and depression. If you feel any of these emotions and need help coping, contact your health care provider. Other ways to get help include: ? Talking to friends and family members about your condition. They can give you support and guidance. Explain your symptoms to them and, if comfortable, invite them to attend appointments or rehabilitation with you. ? Joining a support group for people with chronic heart failure. Talking with other people who have the same symptoms may give you new ways of coping with your disease and your emotions. ??? Stay up to date with your shots (vaccines). Staying current on pneumococcal and influenza vaccines is especially important in preventing germs from attacking your airways (respiratory infections). ??? Keep all follow-up visits as told by your health care provider. This is important. How to recognize changes in your condition You and your family members need to know what changes to watch for in your condition. Watch for the following changes and report them to your health care provider: ??? Sudden weight gain. Ask your health care provider what amount of weight gain to report. ??? Shortness of breath: ? Feeling short of breath while at rest, with no exercise or activity that required great effort. ? Feeling breathless with activity. ??? Swelling of your lower legs or ankles. ??? Difficulty sleeping: ? You wake up feeling short of breath. ? You have to use more pillows to raise your head in order to sleep. ??? Frequent, dry, hacking cough. ??? Loss of appetite. ??? Feeling more tired all the time. ??? Depression or feelings of sadness or hopelessness. ??? Bloating in the stomach. Where to find more information ??? Local support groups. Ask your health care provider about groups near you. ??? The [place] [employer]: www.heart.org Contact a health care provider if: ??? You have a rapid weight gain. ??? You have increasing shortness of breath that is unusual for you. ??? You are unable to participate in your usual physical activities. ??? You tire easily. ??? You cough more than normal, especially with physical activity. ??? You have any swelling or more swelling in areas such as your hands, feet, ankles, or abdomen. ??? You feel like your heart is beating quickly (palpitations). ??? You become dizzy or light-headed when you stand up. Get help right away if: ??? You have difficulty breathing. ??? You notice or your family notices a change in your awareness, such as having trouble staying awake or having difficulty with concentration. ??? You have pain or discomfort in your chest. ??? You have an episode of fainting (syncope). Summary ??? There is no cure for heart failure, so it is important for you to take good care of yourself and follow the treatment plan set by your health care provider. ??? Medicines are important in reducing your heart's workload, slowing the progression of heart failure, and improving your symptoms. ??? Living with chronic heart failure often leads to emotions such as fear, stress, anxiety, and depression. If you are feeling any of these emotions and need help coping, contact your health care provider. This information is not intended to replace advice given to you by your health care provider. Make sure you discuss any questions you have with your health care provider. Document Released: 07/05/2017 Document Revised: 07/05/2017 Document Reviewed: 07/05/2017 [employer] Interactive Patient Education ?? 2019 [employer] Heart Failure Heart failure is a condition in which the heart has trouble pumping blood because it has become weak or stiff. This means that the heart does not pump blood efficiently for the body to work well. For some people with heart failure, fluid may back up into the lungs and there may be swelling (edema) in the lower legs. Heart failure is usually a long-term (chronic) condition. It is important for you to take good care of yourself and follow the treatment plan from your health care provider. What are the causes? This condition is caused by some health problems, including: ??? High blood pressure (hypertension). Hypertension causes the heart muscle to work harder than normal. High blood pressure eventually causes the heart to become stiff and weak. ??? Coronary artery disease (CAD). CAD is the buildup of cholesterol and fat (plaques) in the arteries of the heart. ??? Heart attack (myocardial infarction). Injured tissue, which is caused by the heart attack, does not contract as well and the heart's ability to pump blood is weakened. ??? Abnormal heart valves. When the heart valves do not open and close properly, the heart muscle must pump harder to keep the blood flowing. ??? Heart muscle disease (cardiomyopathy or myocarditis). Heart muscle disease is damage to the heart muscle from a variety of causes, such as drug or alcohol abuse, infections, or unknown causes. These can increase the risk of heart failure. ??? Lung disease. When the lungs do not work properly, the heart must work harder. What increases the risk? Risk of heart failure increases as a person ages. This condition is also more likely to develop in people who: ??? Are overweight. ??? Are male. ??? Smoke or chew tobacco. ??? Abuse alcohol or illegal drugs. ??? Have taken medicines that can damage the heart, such as chemotherapy drugs. ??? Have diabetes. ? High blood sugar (glucose) is associated with high fat (lipid) levels in the blood. ? Diabetes can also damage tiny blood vessels that carry nutrients to the heart muscle. ??? Have abnormal heart rhythms. ??? Have thyroid problems. ??? Have low blood counts (anemia). What are the signs or symptoms? Symptoms of this condition include: ??? Shortness of breath with activity, such as when climbing stairs. ??? Persistent cough. ??? Swelling of the feet, ankles, legs, or abdomen. ??? Unexplained weight gain. ??? Difficulty breathing when lying flat (orthopnea). ??? Waking from sleep because of the need to sit up and get more air. ??? Rapid heartbeat. ??? Fatigue and loss of energy. ??? Feeling light-headed, dizzy, or close to fainting. ??? Loss of appetite. ??? Nausea. ??? Increased urination during the night (nocturia). ??? Confusion. How is this diagnosed? This condition is diagnosed based on: ??? Medical history, symptoms, and a physical exam. ??? Diagnostic tests, which may include: ? Echocardiogram. ? Electrocardiogram (ECG). ? Chest X-ray. ? Blood tests. ? Exercise stress test. ? Radionuclide scans. ? Cardiac catheterization and angiogram. How is this treated? Treatment for this condition is aimed at managing the symptoms of heart failure. Medicines, behavioral changes, or other treatments may be necessary to treat heart failure. MedicinesThese may include: ??? Angiotensin-converting enzyme (TRENT) inhibitors. This type of medicine blocks the effects of a blood protein called angiotensin-converting enzyme. TRENT inhibitors relax (dilate) the blood vessels and help to lower blood pressure. ??? Angiotensin receptor blockers (ARBs). This type of medicine blocks the actions of a blood protein called angiotensin. ARBs dilate the blood vessels and help to lower blood pressure. ??? Water pills (diuretics). Diuretics cause the kidneys to remove salt and water from the blood. The extra fluid is removed through urination, leaving a lower volume of blood that the heart has to pump. ??? Beta blockers. These improve heart muscle strength and they prevent the heart from beating too quickly. ??? Digoxin. This increases the force of the heartbeat. Healthy behavior changesThese may include: ??? Reaching and maintaining a healthy weight. ??? Stopping smoking or chewing tobacco. ??? Eating heart-healthy foods. ??? Limiting or avoiding alcohol. ??? Stopping use of street drugs (illegal drugs). ??? Physical activity. Other treatmentsThese may include: ??? Surgery to open blocked coronary arteries or repair damaged heart valves. ??? Placement of a biventricular pacemaker to improve heart muscle function (cardiac resynchronization therapy). This device paces both the right ventricle and left ventricle. ??? Placement of a device to treat serious abnormal heart rhythms (implantable cardioverter defibrillator, or ICD). ??? Placement of a device to improve the pumping ability of the heart (left ventricular assist device, or LVAD). ??? Heart transplant. This can cure heart failure, and it is considered for certain patients who do not improve with other therapies. Follow these instructions at home: Medicines ??? Take [id number] and prescription medicines only as told by your health care provider. Medicines are important in reducing the workload of your heart, slowing the progression of heart failure, and improving your symptoms. ? Do notstop taking your medicine unless your health care provider told you to do that. ? Do notskip any dose of medicine. ? Refill your prescriptions before you run out of medicine. You need your medicines every day. Eating and drinking ??? Eat heart-healthy foods. Talk with a dietitian to make an eating plan that is right for you. ? Choose foods that contain no trans fat and are low in saturated fat and cholesterol. Healthy choices include fresh or frozen fruits and vegetables, fish, lean meats, legumes, fat-free or low-fat dairy products, and whole-grain or high-fiber foods. ? Limit salt (sodium) if directed by your health care provider. Sodium restriction may reduce symptoms of heart failure. Ask a dietitian to recommend heart-healthy seasonings. ? Use healthy cooking methods instead of frying. Healthy methods include roasting, grilling, broiling, baking, poaching, steaming, and stir-frying. ??? Limit your fluid intake if directed by your health care provider. Fluid restriction may reduce symptoms of heart failure. Lifestyle ??? Stop smoking or using chewing tobacco. Nicotine and tobacco can damage your heart and your blood vessels. Do not use nicotine gum or patches before talking to your health care provider. ??? Limit alcohol intake to no more than 1 drink per day for non- women and 2 drinks per day for men. One drink equals 12 oz of beer, 5 oz of wine, or 1?? oz of hard liquor. ? Drinking more than that is harmful to your heart. Tell your health care provider if you drink alcohol several times a week. ? Talk with your health care provider about whether any level of alcohol use is safe for you. ? If your heart has already been damaged by alcohol or you have severe heart failure, drinking alcohol should be stopped completely. ??? Stop use of illegal drugs. ??? Lose weight if directed by your health care provider. Weight loss may reduce symptoms of heart failure. ??? Do moderate physical activity if directed by your health care provider. People who are elderly and people with severe heart failure should consult with a health care provider for physical activity recommendations. Monitor important information ??? Weigh yourself every day. Keeping track of your weight daily helps you to notice excess fluid sooner. ? Weigh yourself every morning after you urinate and before you eat breakfast. ? Wear the same amount of clothing each time you weigh yourself. ? Record your daily weight. Provide your health care provider with your weight record. ??? Monitor and record your blood pressure as told by your health care provider. ??? Check your pulse as told by your health care provider. Dealing with extreme temperatures ??? If the weather is extremely hot: ? Avoid vigorous physical activity. ? Use air conditioning or fans or seek a cooler location. ? Avoid caffeine and alcohol. ? Wear loose-fitting, lightweight, and light-colored clothing. ??? If the weather is extremely cold: ? Avoid vigorous physical activity. ? Layer your clothes. ? Wear mittens or gloves, a hat, and a scarf when you go outside. ? Avoid alcohol. General instructions ??? Manage other health conditions such as hypertension, diabetes, thyroid disease, or abnormal heart rhythms as told by your health care provider. ??? Learn to manage stress. If you need help to do this, ask your health care provider. ??? Plan rest periods when fatigued. ??? Get ongoing education and support as needed. ??? Participate in or seek rehabilitation as needed to maintain or improve independence and quality of life. ??? Stay up to date with immunizations. Keeping current on pneumococcal and influenza immunizations is especially important to prevent respiratory infections. ??? Keep all follow-up visits as told by your health care provider. This is important. Contact a health care provider if: ??? You have a rapid weight gain. ??? You have increasing shortness of breath that is unusual for you. ??? You are unable to participate in your usual physical activities. ??? You tire easily. ??? You cough more than normal, especially with physical activity. ??? You have any swelling or more swelling in areas such as your hands, feet, ankles, or abdomen. ??? You are unable to sleep because it is hard to breathe. ??? You feel like your heart is beating quickly (palpitations). ??? You become dizzy or light-headed when you stand up. Get help right away if: ??? You have difficulty breathing. ??? You notice or your family notices a change in your awareness, such as having trouble staying awake or having difficulty with concentration. ??? You have pain or discomfort in your chest. ??? You have an episode of fainting (syncope). This information is not intended to replace advice given to you by your health care provider. Make sure you discuss any questions you have with your health care provider. Document Released: 02/20/2006 Document Revised: 10/25/2016 Document Reviewed: 09/14/2016 [employer] Interactive Patient Education ?? 2017 [employer] Low-Sodium Eating Plan Sodium, which is an element that makes up salt, helps you maintain a healthy balance of fluids in your body. Too much sodium can increase your blood pressure and cause fluid and waste to be held in your body. Your health care provider or dietitian may recommend following this plan if you have high blood pressure (hypertension), kidney disease, liver disease, or heart failure. Eating less sodium can help lower your blood pressure, reduce swelling, and protect your heart, liver, and kidneys. What are tips for following this plan? General guidelines ??? Most people on this plan should limit their sodium intake to 1,500???2,000 mg (milligrams) of sodium each day. Reading food labels ??? The Nutrition Facts label lists the amount of sodium in one serving of the food. If you eat more than one serving, you must multiply the listed amount of sodium by the number of servings. ??? Choose foods with less than 140 mg of sodium per serving. ??? Avoid foods with 300 mg of sodium or more per serving. Shopping ??? Look for lower-sodium products, often labeled as low-sodium or no salt added. ??? Always check the sodium content even if foods are labeled as unsalted or no salt added . ??? Buy fresh foods. ? Avoid canned foods and premade or frozen meals. ? Avoid canned, cured, or processed meats ??? Buy breads that have less than 80 mg of sodium per slice. Cooking ??? Eat more home-cooked food and less restaurant, buffet, and fast food. ??? Avoid adding salt when cooking. Use salt-free seasonings or herbs instead of table salt or sea salt. Check with your health care provider or pharmacist before using salt substitutes. ??? Cook with plant-based oils, such as canola, sunflower, or olive oil. Meal planning ??? When eating at a restaurant, ask that your food be prepared with less salt or no salt, if possible. ??? Avoid foods that contain MSG (monosodium glutamate). MSG is sometimes added to [place] food, bouillon, and some canned foods. What foods are recommended? The items listed may not be a complete list. Talk with your dietitian about what dietary choices are best for you. Grains Low-sodium cereals, including oats, puffed wheat and rice, and shredded wheat. Low-sodium crackers. Unsalted rice. Unsalted pasta. Low-sodium bread. Whole-grain breads and whole-grain pasta. Vegetables Fresh or frozen vegetables. No salt added canned vegetables. No salt added tomato sauce and paste. Low-sodium or reduced-sodium tomato and vegetable juice. Fruits Fresh, frozen, or canned fruit. Fruit juice. Meats and other protein foods Fresh or frozen (no salt added) meat, poultry, seafood, and fish. Low-sodium canned tuna and salmon. Unsalted nuts. Dried peas, beans, and lentils without added salt. Unsalted canned beans. Eggs. Unsalted nut butters. Dairy Milk. Soy milk. Cheese that is naturally low in sodium, such as ricotta cheese, fresh mozzarella, or Norwegian cheese Low-sodium or reduced-sodium cheese. Cream cheese. Yogurt. Fats and oils Unsalted butter. Unsalted margarine with no trans fat. Vegetable oils such as canola or olive oils. Seasonings and other foods Fresh and dried herbs and spices. Salt-free seasonings. Low-sodium mustard and ketchup. Sodium-free salad dressing. Sodium-free light mayonnaise. Fresh or refrigerated horseradish. Lemon juice. Vinegar. Homemade, reduced-sodium, or low-sodium soups. Unsalted popcorn and pretzels. Low-salt or salt-free chips. What foods are not recommended? The items listed may not be a complete list. Talk with your dietitian about what dietary choices are best for you. Grains Instant hot cereals. Bread stuffing, pancake, and biscuit mixes. Croutons. Seasoned rice or pasta mixes. Noodle soup cups. Boxed or frozen macaroni and cheese. Regular salted crackers. Self-rising flour. Vegetables Sauerkraut, pickled vegetables, and relishes. Olives. Urdu fries. Onion rings. Regular canned vegetables (not low-sodium or reduced-sodium). Regular canned tomato sauce and paste (not low-sodium or reduced-sodium). Regular tomato and vegetable juice (not low-sodium or reduced-sodium). Frozen vegetables in sauces. Meats and other protein foods Meat or fish that is salted, canned, smoked, spiced, or pickled. [place], ham, sausage, hotdogs, corned beef, chipped beef, packaged lunch meats, salt pork, jerky, pickled rubio, anchovies, regular canned tuna, sardines, salted nuts. Dairy Processed cheese and cheese spreads. Cheese curds. Blue cheese. Feta cheese. String cheese. Regular cottage cheese. Buttermilk. Canned milk. Fats and oils Salted butter. Regular margarine. Ghee. [place] fat. Seasonings and other foods Onion salt, garlic salt, seasoned salt, table salt, and sea salt. Canned and packaged gravies. Worcestershire sauce. Tartar sauce. Barbecue sauce. Teriyaki sauce. Soy sauce, including reduced-sodium. Steak sauce. Fish sauce. Oyster sauce. Cocktail sauce. Horseradish that you find on the shelf. Regular ketchup and mustard. Meat flavorings and tenderizers. Bouillon cubes. Hot sauce and Tabasco sauce. Premade or packaged marinades. Premade or packaged taco seasonings. Relishes. Regular salad dressings. Salsa. Potato and tortilla chips. [place] chips and puffs. Salted popcorn and pretzels. Canned or dried soups. Pizza. Frozen entrees and pot pies. Summary ??? Eating less sodium can help lower your blood pressure, reduce swelling, and protect your heart, liver, and kidneys. ??? Most people on this plan should limit their sodium intake to 1,500???2,000 mg (milligrams) of sodium each day. ??? Canned, boxed, and frozen foods are high in sodium. Restaurant foods, fast foods, and pizza are also very high in sodium. You also get sodium by adding salt to food. ??? Try to cook at home, eat more fresh fruits and vegetables, and eat less fast food, canned, processed, or prepared foods. This information is not intended to replace advice given to you by your health care provider. Make sure you discuss any questions you have with your health care provider. Document Released: 08/12/2002 Document Revised: 02/13/2017 Document Reviewed: 02/13/2017 [employer] Interactive Patient Education ?? 2019 [employer]. Heart-Healthy Eating Plan Heart-healthy meal planning includes: ??? Limiting unhealthy fats. ??? Increasing healthy fats. ??? Making other small dietary changes. You may need to talk with your doctor or a diet specialist (dietitian) to create an eating plan that is right for you. What types of fat should I choose? Choose healthy fats. These include olive oil and canola oil, flaxseeds, walnuts, almonds, and seeds. ??? Eat more omega-3 fats. These include salmon, mackerel, sardines, tuna, flaxseed oil, and ground flaxseeds. Try to eat fish at least twice each week. ??? Limit saturated fats. ? Saturated fats are often found in animal products, such as meats, butter, and cream. ? Plant sources of saturated fats include palm oil, palm kernel oil, and coconut oil. ??? Avoid foods with partially hydrogenated oils in them. These include stick margarine, some tub margarines, cookies, crackers, and other baked goods. These contain trans fats. What general guidelines do I need to follow? Check food labels carefully. Identify foods with trans fats or high amounts of saturated fat. ??? Fill one half of your plate with vegetables and green salads. Eat 4???5 servings of vegetables per day. A serving of vegetables is: ? 1 cup of raw leafy vegetables. ? ?? cup of raw or cooked cut-up vegetables. ? ?? cup of vegetable juice. ??? Fill one fourth of your plate with whole grains. Look for the word whole as the first word in the ingredient list. ??? Fill one fourth of your plate with lean protein foods. ??? Eat 4???5 servings of fruit per day. A serving of fruit is: ? One medium whole fruit. ? ?? cup of dried fruit. ? ?? cup of fresh, frozen, or canned fruit. ? ?? cup of 100% fruit juice. ??? Eat more foods that contain soluble fiber. These include apples, broccoli, carrots, beans, peas, and barley. Try to get 20???30 g of fiber per day. ??? Eat more home-cooked food. Eat less restaurant, buffet, and fast food. ??? Limit or avoid alcohol. ??? Limit foods high in starch and sugar. ??? Avoid fried foods. ??? Avoid frying your food. Try baking, boiling, grilling, or broiling it instead. You can also reduce fat by: ? Removing the skin from poultry. ? Removing all visible fats from meats. ? Skimming the fat off of stews, soups, and gravies before serving them. ? Steaming vegetables in water or broth. ??? Lose weight if you are overweight. ??? Eat 4???5 servings of nuts, legumes, and seeds per week: ? One serving of dried beans or legumes equals ?? cup after being cooked. ? One serving of nuts equals 1?? ounces. ? One serving of seeds equals ?? ounce or one tablespoon. ??? You may need to keep track of how much salt or sodium you eat. This is especially true if you have high blood pressure. Talk with your doctor or dietitian to get more information. What foods can I eat? Grains Breads, including Urdu, white, raymundo, wheat, raisin, rye, oatmeal, and [place]riot. Tortillas that are neither fried nor made with lard or trans fat. Low-fat rolls, including hotdog and hamburger buns and [place] muffins. Biscuits. Muffins. Waffles. Pancakes. Light popcorn. Whole-grain cereals. Flatbread. [place] toast. Pretzels. Breadsticks. Rusks. Low-fat snacks. Low-fat crackers, including oyster, saltine, matzo, darci, animal, and rye. Rice and pasta, including brown rice and pastas that are made with whole wheat. Vegetables All vegetables. Fruits All fruits, but limit coconut. Meats and Other Protein Sources Lean, well-trimmed beef, veal, pork, and [place]. Chicken and turkey without skin. All fish and shellfish. Wild duck, rabbit, pheasant, and venison. Egg whites or low-cholesterol egg substitutes. Dried beans, peas, lentils, and tofu. Seeds and most nuts. Dairy Low-fat or nonfat cheeses, including ricotta, string, and mozzarella. Skim or 1% milk that is liquid, powdered, or evaporated. Buttermilk that is made with low-fat milk. Nonfat or low-fat yogurt. Beverages Mineral water. Diet carbonated beverages. Sweets and Desserts Sherbets and fruit ices. Honey, jam, marmalade, jelly, and syrups. Meringues and gelatins. Pure sugar candy, such as hard candy, jelly beans, gumdrops, mints, marshmallows, and small amounts of dark chocolate. [place] food cake. Eat all sweets and desserts in moderation. Fats and Oils Nonhydrogenated (trans-free) margarines. Vegetable oils, including soybean, sesame, sunflower, olive, peanut, safflower, corn, canola, and cottonseed. Salad dressings or mayonnaise made with a vegetable oil. Limit added fats and oils that you use for cooking, baking, salads, and as spreads. Other [place] powder. Coffee and tea. All seasonings and condiments. The items listed above may not be a complete list of recommended foods or beverages. Contact your dietitian for more options. What foods are not recommended? Grains Breads that are made with saturated or trans fats, oils, or whole milk. Croissants. Butter rolls. Cheese breads. Sweet rolls. Donuts. Buttered popcorn. [place] mein noodles. High-fat crackers, such as cheese or butter crackers. Meats and Other Protein Sources Fatty meats, such as hotdogs, short ribs, sausage, spareribs, knowles, rib eye roast or steak, and mutton. High-fat deli meats, such as salami and bologna. Caviar. Domestic duck and goose. Organ meats, such as kidney, liver, sweetbreads, and heart. Dairy Cream, sour cream, cream cheese, and creamed cottage cheese. Whole-milk cheeses, including blue (ana), [place], Brie, Temo, [place], [place], Norwegian, cheddar, Camembert, and [place]. Whole or 2% milk that is liquid, evaporated, or condensed. Whole buttermilk. Cream sauce or high-fat cheese sauce. Yogurt that is made from whole milk. Beverages Regular sodas and juice drinks with added sugar. Sweets and Desserts Frosting. Pudding. Cookies. Cakes other than [place] food cake. Candy that has milk chocolate or white chocolate, hydrogenated fat, butter, coconut, or unknown ingredients. Buttered syrups. Full-fat ice cream or ice cream drinks. Fats and Oils Gravy that has suet, meat fat, or shortening. [place] butter, hydrogenated oils, palm oil, coconut oil, palm kernel oil. These can often be found in baked products, candy, fried foods, nondairy creamers, and whipped toppings. Solid fats and shortenings, including knowles fat, salt pork, lard, and butter. Nondairy cream substitutes, such as coffee creamers and sour cream substitutes. Salad dressings that are made of unknown oils, cheese, or sour cream. The items listed above may not be a complete list of foods and beverages to avoid. Contact your dietitian for more information. This information is not intended to replace advice given to you by your health care provider. Make sure you discuss any questions you have with your health care provider. Document Released: 08/21/2012 Document Revised: 07/28/2016 Document Reviewed: 08/14/2014 [employer] Interactive Patient Education ?? 2019 [employer]. spironolactone (spir ON oh LAK tone) Aldactone, CaroSpir What is the most important information I should know about spironolactone? You should not use spironolactone if you have kidney problems, high levels of potassium in your blood, Caldwell's disease, if you are unable to urinate, or if you are also taking eplerenone. Spironolactone has caused tumors in animals but it is not known whether this could occur in people. Do not use this medicine for any condition that has not been checked by your doctor. What is spironolactone? Spironolactone is a potassium-sparing diuretic (water pill) that prevents your body from absorbing too much salt and keeps your potassium levels from getting too low. Spironolactone is used to treat heart failure, high blood pressure (hypertension), or hypokalemia (low potassium levels in the blood). Spironolactone also treats fluid retention (edema) in people with congestive heart failure, cirrhosis of the liver, or a kidney disorder called nephrotic syndrome. Spironolactone is also used to diagnose or treat a condition in which you have too much aldosterone in your body. Aldosterone is a hormone produced by your adrenal glands to help regulate the salt and water balance in your body. Spironolactone may also be used for purposes not listed in this medication guide. What should I discuss with my healthcare provider before taking spironolactone? You should not use spironolactone if you are allergic to it, or if you have: ?? Caldwell's disease (an adrenal gland disorder); ?? high levels of potassium in your blood (hyperkalemia); ?? if you are unable to urinate; or ?? if you are also taking eplerenone. To make sure spironolactone is safe for you, tell your doctor if you have ever had: ?? an electrolyte imbalance (such as low levels of magnesium in your blood); ?? kidney disease; ?? liver disease; or ?? heart disease. In animal studies, spironolactone caused certain types of tumors. It is not known whether tumors could occur in people using this medicine. Ask your doctor about your risk. It is not known whether spironolactone will harm an unborn baby. Tell your doctor if you are or plan to become . Spironolactone can pass into breast milk and may harm a nursing baby. You should not breast-feed while using this medicine. How should I take spironolactone? Follow all directions on your prescription label. Your doctor may occasionally change your dose. Do not use this medicine in larger or smaller amounts or for longer than recommended. Do not share this medicine with another person, even if they have the same symptoms you have. You may take spironolactone with or without food, but take it the same way each time. While using spironolactone, you may need frequent blood tests. This medication can cause unusual results with certain medical tests. Tell any doctor who treats you that you are using spironolactone. If you need surgery, tell the surgeon ahead of time that you are using spironolactone. You may need to stop using the medicine for a short time. If you are being treated for high blood pressure, keep using this medication even if you feel well. High blood pressure often has no symptoms. You may need to use blood pressure medication for the rest of your life. Store at room temperature away from heat, light, and moisture. What happens if I miss a dose? Take the missed dose as soon as you remember. Skip the missed dose if it is almost time for your next scheduled dose. Do not take extra medicine to make up the missed dose. What happens if I overdose? Seek emergency medical attention or call the Poison Help line at . What should I avoid while taking spironolactone? Drinking alcohol can increase certain side effects of spironolactone. Do not use salt substitutes or low-sodium milk products that contain potassium. These products could cause your potassium levels to get too high while you are taking spironolactone. Avoid a diet high in salt. Too much salt will cause your body to retain water and can make this medication less effective. Spironolactone may impair your thinking or reactions. Be careful if you drive or do anything that requires you to be alert. Avoid getting up too fast from a sitting or lying position, or you may feel dizzy. Get up slowly and steady yourself to prevent a fall. Avoid becoming overheated or dehydrated during exercise and in hot weather. Follow your doctor's instructions about the type and amount of liquids you should drink. In some cases, drinking too much liquid can be as unsafe as not drinking enough. What are the possible side effects of spironolactone? Get emergency medical help if you have signs of an allergic reaction: hives; difficulty breathing; swelling of your face, lips, tongue, or throat. Stop using spironolactone and call your doctor at once if you have: ?? a light-headed feeling, like you might pass out; ?? little or no urination; ?? signs of stomach bleeding--bloody or tarry stools, coughing up blood or vomit that looks like coffee grounds; ?? low potassium--uneven heart rate, extreme thirst, increased urination, leg discomfort, muscle weakness or limp feeling; or ?? signs of other electrolyte imbalances--vomiting, muscle spasms or contractions, numbness or tingly feeling, slow heart rate, weak pulse, headache, confusion, slurred speech, severe weakness, loss of coordination, feeling unsteady. Common side effects may include: ?? mild nausea or vomiting, diarrhea; ?? breast swelling or tenderness; ?? dizziness, headache, mild drowsiness; ?? leg cramps; or ?? impotence, difficulty having an erection. This is not a complete list of side effects and others may occur. Call your doctor for medical advice about side effects. You may report side effects to FDA at 2-960-IHT-9762. What other drugs will affect spironolactone? Taking this medicine with other drugs that make you dizzy or lower your blood pressure can worsen these effects. Ask your doctor before taking a sleeping pill, opioid pain medicine, a muscle relaxer, or medicine for anxiety, depression, or seizures. Tell your doctor about all your current medicines and any you start or stop using, especially: ?? cholestyramine, digoxin, lithium, trimethoprim; ?? heart or blood pressure medicine (especially another diuretic); ?? medicine to prevent a blood clot; or ?? NSAIDs (nonsteroidal anti-inflammatory drugs)--aspirin, ibuprofen (Advil, Motrin), naproxen (Aleve), celecoxib, diclofenac, indomethacin, meloxicam, and others. This list is not complete. Other drugs may interact with spironolactone, including prescription and wtut-vml-zqlyyzc medicines, vitamins, and herbal products. Not all possible interactions are listed in this medication guide. Where can I get more information? Your pharmacist can provide more information about spironolactone. Remember, keep this and all other medicines out of the reach of children, never share your medicines with others, and use this medication only for the indication prescribed. Every effort has been made to ensure that the information provided by [employer]') is accurate, up-to-date, and complete, but no guarantee is made to that effect. Drug information contained herein may be time sensitive. [employer] information has been compiled for use by healthcare practitioners and consumers in the [place] and therefore [employer] does not warrant that uses outside of the [place] are appropriate, unless specifically indicated otherwise. [employer]'s drug information does not endorse drugs, diagnose patients or recommend therapy. [employer] drug information is an informational resource designed to assist licensed healthcare practitioners in caring for their patients and/or to serve consumers viewing this service as a supplement to, and not a substitute for, the expertise, skill, knowledge and judgment of healthcare practitioners. The absence of a warning for a given drug or drug combination in no way should be construed to indicate that the drug or drug combination is safe, effective or appropriate for any given patient. [employer] does not assume any responsibility for any aspect of healthcare administered with the aid of information [employer] provides. The information contained herein is not intended to cover all possible uses, directions, precautions, warnings, drug interactions, allergic reactions, or adverse effects. If you have questions about the drugs you are taking, check with your doctor, nurse or pharmacist. Copyright 8572-8725 [employer]. Version: 10.01. Revision Date: 03/02/2017. metolazone (me LUIS DANIEL a zone) Zaroxolyn What is the most important information I should know about metolazone? You should not use metolazone if you are unable to urinate, or if you have severe liver disease. What is metolazone? Metolazone is a thiazide diuretic (water pill) that helps prevent your body from absorbing too much salt, which can cause fluid retention. Metolazone is used to treat fluid retention (edema) in people with congestive heart failure, or a kidney disorder such as nephrotic syndrome. Metolazone is also used to treat high blood pressure (hypertension). Metolazone may also be used for purposes not listed in this medication guide. What should I discuss with my doctor before taking metolazone? You should not use metolazone if you are allergic to it, or if you have: ?? severe liver disease; or ?? if you are unable to urinate. To make sure metolazone is safe for you, tell your doctor if you have: ?? an electrolyte imbalance (such as low levels of potassium or magnesium in your blood); ?? a heart rhythm disorder; ?? an allergy to sulfa drugs; ?? liver disease; ?? kidney disease; ?? diabetes; ?? gout; or ?? systemic lupus erythematosus. Using metolazone during could cause side effects in the baby, such as blood cell problems, or jaundice (yellowing of the skin or eyes). Tell your doctor if you are or if you become while using this medicine. Metolazone can pass into breast milk and may harm a nursing baby. You should not breast-feed while using this medicine. Metolazone is not approved for use by anyone younger than 18 years old. How should I take metolazone? Follow all directions on your prescription label. Your doctor may occasionally change your dose to make sure you get the best results. Do not use this medicine in larger or smaller amounts or for longer than recommended. Metolazone is usually taken only once per day. documented in this encounter Plan of Treatment Not on file documented as of this encounter Visit Diagnoses Not on filedocumented in this encounter
--- OUTSIDE RECORDS SUMMARY | 2025-01-08 15:10 | XMS_ITS | Encounter Summary ---
Author Organization [employer] ([place], [place], [place], [place], [place]) Address [address] [place] [address] Care Team Providers Care Neurology Stroke Physician Name Role Phone Unavailable Primary Care Provider Unavailabl e Encounter Details Date Type Department Care Team (Late st Contact Info) Description 2019 Transcribed Document [facility] [place] [facility] [place] [address] ProviderMg MD [facility] [place] [id number] Social History Tobacco Use Types Packs/Day Years Used Date Smoking Tobacco: Never Assessed Sex and Gender Information Value Date Recorded Sex Assigned at Not on file Legal Sex Male 1:09 PM CDT Gender Identity Not on file Sexual Orientation Not on file documented as of this encounter Miscellaneous Notes * [employer] Conversion Note - Mg Ritchie MD - 2019 12:47 PM DEAN OF GRADUATE STUDIES Patient: JOSE PEARSON Age: 48 years Sex: Male : 1970 Associated Diagnoses: None Author: KATY FRIAS MD-CAR Subjective soa is better, but he has been cramping with diuretics. Objective VS/Measurements Vital Measurements 2019 11:19 EST Systolic Blood Pressure 106 mmHg Diastolic Blood Pressure 76 mmHg Mean Arterial Pressure (MAP)-BMDI 83 Temperature Source Oral Temperature Mode Fahrenheit Temperature, Fahrenheit 97.3 Deg F Heart Rate Monitored 76 bpm Respiratory Rate 16 Breaths/Min General: Alert and oriented, No acute distress. Neck: No carotid bruit, No jugular venous distention. Respiratory: Lungs are clear to auscultation, Respirations are non-labored, Breath sounds are equal, Symmetrical chest wall expansion. Cardiovascular: Normal rate, Regular rhythm, No gallop, Good pulses equal in all extremities, Normal peripheral perfusion, 2/6 bere. Gastrointestinal: Soft, Non-tender, Non-distended, Normal bowel sounds. Integumentary: Warm, Dry, [place], No rash. Results Review General results CArdiomems [...] and devised the above plan of care. Electronically signed by Jackie, [facility] Conversion Zoo Veterinarian Cerner at 06/19/2022 10:53 PM CDT documented in this encounter Plan of Treatment Not on file documented as of this encounter Visit Diagnoses Not on filedocumented in this encounter
--- OUTSIDE RECORDS SUMMARY | 2025-01-08 15:10 | XMS_ITS | Encounter Summary ---
Author Organization [employer] ([place], [place], [place], [place], [place]) Address [address] [place] [address] Care Team Providers Care Public Health Teacher Name Role Phone Unavailable Primary Care Provider Unavailabl e Encounter Details Date Type Department Care Team (Late st Contact Info) Description 2019 Transcribed Document [facility] [place] [facility] [place] [address] ProviderMg MD [facility] [place] [address] Social History Tobacco Use Types Packs/Day Years Used Date Smoking Tobacco: Never Assessed Sex and Gender Information Value Date Recorded Sex Assigned at Not on file Legal Sex Male 1:09 PM CDT Gender Identity Not on file Sexual Orientation Not on file documented as of this encounter Miscellaneous Notes * [employer] Conversion Note - Mg Ritchie MD - 2019 8:38 PM ACETYLENE TORCH [employer]URNER Patient Education Materials Follows: Angiogram, Care After This sheet gives you [...] and water are not available, use hand straight tooth gear generator operator. ? Change your dressing as told by [...] care provider approves. ??? You may shower 24?48 hours after the procedure or as told [...] by your health care provider, usually for 1?2 days. ??? Do not lift anything that [...] contrast dye from your body. ??? Take lvzd-xvt-qpejazu and prescription medicines only as told by [...] okay to do so. You may shower 24?48 hours after the procedure or as told [...] 09/08/2005 Document Revised: 01/25/2017 Document Reviewed: 01/25/2017 [employer] Interactive Patient Education ? 2019 [employer] Heart-Healthy Eating Plan Many factors influence [...] plate with vegetables and green salads. Eat 4?5 servings of vegetables per day. A serving of vegetables equals 1 cup of raw leafy vegetables, ? cup of raw or cooked cut-up vegetables, or ? cup of vegetable juice. ??? Fill one fourth of your plate with whole grains. Look for the word whole as the first word in the ingredient list. ??? Fill one fourth of your plate with lean protein foods. ??? Eat 4?5 servings of fruit per day. A serving of fruit equals one medium whole fruit, ? cup of dried fruit, ? cup of fresh, frozen, or canned fruit, or ? cup of 100% fruit juice. ??? Eat more foods that contain soluble fiber. Examples of foods that contain this type of fiber are apples, broccoli, carrots, beans, peas, and barley. Aim to get 20?30 g of fiber per day. ??? Eat [...] weight if you are overweight. Losing just 5?10% of your initial body weight can help your overall health and prevent diseases such as diabetes and heart disease. ??? Increase your consumption of nuts, legumes, and seeds to 4?5 servings per week. One serving of dried beans or legumes equals ? cup after being cooked, one serving of nuts equals 1? ounces, and one serving of seeds equals ? ounce or 1 tablespoon. ??? You may need to monitor your salt (sodium) intake, especially if you have high blood pressure. Talk with your health care provider or dietitian to get more information about reducing sodium. What foods can I eat? Grains Breads, including Syrian, white, raymundo, wheat, raisin, rye, oatmeal, and Stateless. Tortillas that are neither fried nor made with lard or trans fat. Low-fat rolls, including hotdog and hamburger buns and Tunisian muffins. Biscuits. Muffins. Waffles. Pancakes. Light popcorn. Whole-grain cereals. Flatbread. [place] toast. Pretzels. Breadsticks. Rusks. Low-fat snacks and [...] egg substitutes. Dried beans, peas, lentils, and tofu.?Seeds and most nuts. Dairy Low-fat or nonfat [...] cooking, baking, salads, and as spreads. Other [place] powder. Coffee and tea. All seasonings and [...] cheese. Whole milk cheeses, including blue (ana), Temple Jl, Brie, Temo, [place], Havarti, Anguillan, cheddar, Camembert, and Hunker. Whole or 2% milk that is liquid, [...] that has suet, meat fat, or shortening. [place] butter, hydrogenated oils, palm oil, coconut oil, [...] 11/29/2008 Document Revised: 09/09/2016 Document Reviewed: 08/14/2014 [employer] Interactive Patient Education ? 2019 [employer] Low-Sodium Eating Plan Sodium, which is [...] plan should limit their sodium intake to 1,500?2,000 mg (milligrams) of sodium each day. Reading [...] (monosodium glutamate). MSG is sometimes added to Polish food, bouillon, and some canned foods. What [...] such as ricotta cheese, fresh mozzarella, or [place] cheese Low-sodium or reduced-sodium cheese. Cream cheese. [...] Vegetables Sauerkraut, pickled vegetables, and relishes. Olives. Syrian fries. Onion rings. Regular canned vegetables (not [...] salad dressings. Salsa. Potato and tortilla chips. Velpen chips and puffs. Salted popcorn and pretzels. Canned or dried soups. Pizza. Frozen entrees and pot pies. Summary ??? Eating less sodium can help lower your blood pressure, reduce swelling, and protect your heart, liver, and kidneys. ??? Most people on this plan should limit their sodium intake to 1,500?2,000 mg (milligrams) of sodium each day. ??? [...] 08/12/2002 Document Revised: 02/13/2017 Document Reviewed: 02/13/2017 [employer] Interactive Patient Education ? 2019 [employer]. Heart-Healthy Eating Plan Heart-healthy meal planning includes: [...] plate with vegetables and green salads. Eat 4?5 servings of vegetables per day. A serving of vegetables is: ? 1 cup of raw leafy vegetables. ? ? cup of raw or cooked cut-up vegetables. ? ? cup of vegetable juice. ??? Fill one fourth of your plate with whole grains. Look for the word whole as the first word in the ingredient list. ??? Fill one fourth of your plate with lean protein foods. ??? Eat 4?5 servings of fruit per day. A serving of fruit is: ? One medium whole fruit. ? ? cup of dried fruit. ? ? cup of fresh, frozen, or canned fruit. ? ? cup of 100% fruit juice. ??? Eat more foods that contain soluble fiber. These include apples, broccoli, carrots, beans, peas, and barley. Try to get 20?30 g of fiber per day. ??? Eat [...] weight if you are overweight. ??? Eat 4?5 servings of nuts, legumes, and seeds per week: ? One serving of dried beans or legumes equals ? cup after being cooked. ? One serving of nuts equals 1? ounces. ? One serving of seeds equals ? ounce or one tablespoon. ??? You may need to keep track of how much salt or sodium you eat. This is especially true if you have high blood pressure. Talk with your doctor or dietitian to get more information. What foods can I eat? Grains Breads, including Syrian, white, raymundo, wheat, raisin, rye, oatmeal, and Stat[place]. Tortillas that are neither fried nor made with lard or trans fat. Low-fat rolls, including hotdog and hamburger buns and [place]ian muffins. Biscuits. Muffins. Waffles. Pancakes. Light popcorn. Whole-grain cereals. Flatbread. Janet toast. Pretzels. Breadsticks. Rusks. Low-fat snacks. Low-fat crackers, including oyster, saltine, matzo, adrci, animal, and rye. Rice and pasta, including [...] cooking, baking, salads, and as spreads. Other [place] powder. Coffee and tea. All seasonings and [...] cottage cheese. Whole-milk cheeses, including blue (ana), Temple Jl, Brie, Temo, [place], Havarti, Anguillan, cheddar, Camembert, and Hunker. Whole or 2% milk that is liquid, [...] that has suet, meat fat, or shortening. [place] butter, hydrogenated oils, palm oil, coconut oil, [...] 08/21/2012 Document Revised: 07/28/2016 Document Reviewed: 08/14/2014 [employer] Interactive Patient Education ? 2019 [employer] Cardiovascular Living With Heart Failure Heart failure is [...] failure, and improving your symptoms. ??? Take xgmj-kdi-xkdyvaf and prescription medicines only as told by [...] of beer, 5 oz of wine, or 1? oz of hard liquor. ? Drinking more [...] provider about groups near you. ??? The [place] Heart Association: www.heart.org Contact a health care [...] 07/05/2017 Document Revised: 07/05/2017 Document Reviewed: 07/05/2017 [employer] Interactive Patient Education ? 2019 [employer] Heart Failure Heart failure is a [...] these instructions at home: Medicines ??? Take yutc-bye-pkbyadn and prescription medicines only as told by [...] of beer, 5 oz of wine, or 1? oz of hard liquor. ? Drinking more [...] provider for physical activity recommendations. Monitor important information??? Weigh yourself every day. Keeping track of [...] your health care provider. Dealing with extreme temperatures??? If the weather is extremely hot: ? [...] 02/20/2006 Document Revised: 10/25/2016 Document Reviewed: 09/14/2016 [employer] Interactive Patient Education ? 2017 [employer] Electronically signed by Morales Mejia Conversion Records Management Coordinator [employer] at 06/19/2022 11:10 PM CDT documented in this encounter Plan of Treatment Not on file documented as of this encounter Visit Diagnoses Not on filedocumented in this encounter
--- OUTSIDE RECORDS SUMMARY | 2025-01-08 15:10 | XMS_ITS | Encounter Summary ---
Author Organization [facility] Address [address] [place] [address] Care Team Providers Care Information Services Consultant Name Role Phone Herberth Perez MD Primary Care Provider [phone] Katrin Oviedo RN Unavailable [phone] Zaida Lafleur HEALTH PROMOTION EDUCATOR Unavailable Gracia Petersen HEALTH PROMOTION EDUCATOR Unavailable [phone] Yunior Solorzano MD Unavailable [phone] Ross Baez DO Unavailable [phone] Edith Aleman RN Unavailable Unavailable Encounter Details Date Type Department Care Team (Late st Contact Info) Description 01/21/2020 [facility] OTTR Encounter Historical OTTR [address] [place] [address] Katrin Oviedo, RN [facility] [address] [place] [address] Social History Tobacco Use Types Packs/Day Years Used Date Smoking Tobacco: Never Assessed Sex and Gender Information Value Date Recorded Sex Assigned at Male 08/25/2020 11:15 AM EDT Legal Sex Male 8:00 PM EDT Gender Identity Male 08/25/2020 11:15 AM EDT Sexual Orientation Straight 08/25/2020 11 :15 AM EDT documented as of this encounter Miscellaneous Notes * Progress Notes - Katrin Oviedo RN - 07/29/2020 10:33 AM EDT Patient seen in clinic yesterday with INR 4.0. Instructed to hold warfarin x2 doses and recheck INRTh prior to bronchoscopy and dilation in OR on Monday. Patient's reports he has accidentally been taking 8mg daily (instead of 4mg) including last night. INR recheck this morning 5.6. Instructed patient to hold warfarin until further notice, take 2.5mg PO vitamin K once per LVAD protocol, and recheck INR tomorrow. Prescription sent to [facility] for 2.5mg phytonadione once. Dr. De Los Santos, LORI Lafleur, Sanjay White, VAD coordinators notified. * Progress Notes - Katrin Oviedo RN - 07/07/2020 5:21 PM EDT Patient extremely tired, sleeping throughout day, occasionally incontinent of urine since starting dantrolene per [facility]. Discussed with Sanjay White; these could be side effects of dantrolene. If patient elects to stop dantrolene (in coordination with ROXIE LERMA), okay to stop immediately without taper. * Progress Notes - Niecy Wilson RN - 06/08/2020 3:20 PM EDT patient's called emergency phone regarding dantrolene dosing of 25mg qday. Concern that this dose should have been split up into 3 smaller doses throughout the day. Sanjay White consulted and patient ok to take 25mg qday. Can titrate to 25mg TID if therapeutic relief is not acheived with once daily dosing. Patients made aware. * Progress Notes - Katrin Oviedo RN - 06/03/2020 3:20 PM EDT Patient seen at [facility] PT[facility]. Verified with Sanjay White that there are no drug interactions. Will monitor for hepatotoxicity. * Progress Notes - Katrin Oviedo RN - 05/28/2020 3:39 PM EDT Patient seen by ID today. Dr. Sascha Suarez reports purulence on gauze, but exit site looks okay. Keeping doxy and repeated wound culture. Will do daily dressing changes x1 week then QOD. * Progress Notes - Katrin Oviedo RN - 05/25/2020 11:14 AM EDT Patient's reported increased drainage with color change to green last week. Repeated wound culture, results uploaded to [facility]. Forwarded results to Dr. Sascha Suarez; patient has appointment withID on 05/28. Remains Staph aureus, susceptible to doxycycline, which patient is on for suppression. * Progress Notes - Elma Washburn RN - 03/30/2020 4:12 PM EST Patient's called this morning reporting driveline drainage and redness at DL exit site. Reports having dropped controller last week during shower. Plan was to add patient on to clinic schedule tomorrow to further assess the driveline site; however, patient's son was informed this afternoon that he is positive for Covid-[address]. [address] Raya; will have home health culture driveline (waiting to determine if HH can do this as patient does not currently HH nursing, only PT/OT) and awaitresults before starting antibiotics. Instructed patient's to change dressing daily (unable to tolerate BID changes due to extremely sensitive skin) with Vashe wound cleanser. Dr. Raya, [facility] notified. * Progress Notes - Katrin Oviedo RN - 01/21/2020 11:21 AM EST Patient's bronch moved to [facility] with Dr. Sanchez. ECHO performed to assess for resolution of pericardial effusion. Pre-op anesthesiologist discussed case with Dr. Raya. Patient to no longer hold warfarin and bridge with lovenox. Received first dose of lovenox this AM, but per Dr. Raya, patient to still take normal dose of warfarin tonight. INR today 2.0. Will continue warfarin and daily PO vitamin K at this time. * Progress Notes - Katrin Oviedo RN - 01/13/2020 2:07 PM EST Patient was seen by ENT who recommended bronchoscopy and dilation for tracheal stenosis. Procedure scheduled for 01/22/20 with COVID testing on 01/19 at . Discuss[address] with Dr. Mcwilliams (ENT) and PharmDKuan, patient to hold warfarin x3 days prior to procedure (last dose 01/17), bridge with lovenox at0.5mg/kg BID per protocol (starting 01/18), holding dose PM before procedure. Dr. Hughes aware of plan. VCs notified. * Progress Notes - Katrin Oviedo RN - 12/16/2019 12:53 PM EDT Patient was seen by Dr. 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 (all scans, PFTs normal before junewhen he had the pneumonia). I agree with staying off amiodarone, however amiodarone should not cause acute toxicity as seen on scans in june. Interesting that he had peripheral eosinophilia and eosinophils in BAL. I plan on repeat full PFTs, ENT referral to make sure this is not tracheal stenosis post trach decannulation, awaiting CT to be uploaded by my clinic staff - depending on what I see onCTPE I may consider bronch with bal and biopsy. Autoimmune work up to make sure fibrosis is not from something else. * Progress Notes - Niecy Wilson RN - 11/25/2019 3:58 PM EDT [facility] ED Doctor Yared contacted [facility] Coordinator to report that patient's CXR showed mild atelectasis on RLL and increased interstitial markings. Negative for PNA. Lab work revealed markedly elevated D-Dimer 1210. CT chest ordered to rule out PE. * Progress Notes - Niecy Wilson RN - 11/25/2019 11:21 AM EDT Patient's contacted [facility] Coordinator to report increased SOA while sitting on edge of bed, while talking, and eating. Doppler BP 94, VAD WNL, no edema, cardiomems 11 (goal 15). No cough. HH nursereports diminished breath sounds LLL. LORI Lafleur consulted and patient's instructed to make appointment with PCP to obtain CXR to r/o PNA. * Progress Notes - Katrin Oviedo - 11/06/2019 1:52 PM EDT Patient's inquired about topical pain relief gel that was used by Physical Therapy while inpatient. Per Shaunna Simons, patient was receiving Voltaren gel. Reviewed with LORI Lafleur and Sanjay White; gel is an NSAID, but absorption rate is only 6%. Prescription sent in for sparing use, no more than 4 times daily. * Progress Notes - Katrin Oviedo - 10/25/2019 3:16 PM EDT Patient's HH RN called on Monday to report the patient had petechiae on his chest, abdomen, and lower extremities. Reviewed medications with Sanjay White at that time; no medication changes made. Followed up with the patient's today. She reports he still has pinpoint sized red spots on his chest, abdomen, and ankles, although they are smaller on LEs now. She reports they look like blood blisters , do not itch, and have not changed in size. Also reports having a breakout on his back that she attributes to changing soaps and possibly heat/sweat. Plan to add CBC to labs obtained by on Monday. Will continue to monitor rash for changes. * Progress Notes - Niecy Wilson - 09/17/2019 3:41 PM EDT Patient's called MCS phone to report that after twisting to reposition he began to have bleeding which was saturating the driveline dressing. Instructed patient's to hold pressure at site, implement betadine protocol and to report and s/s of infection at site after doing dressing change. Patient's reported mild white yellow drainage at site. to collect culture of driveline tomorrow and patient to be seen in clinic this Monday. VCs aware. * Progress Notes - Shelbie Garcia - 06/07/2019 4:27 PM EDT HM3 LVAD implanted on 06/05, transplant referral closed, Morris Moran and Kailey Shetty notified to closeplan code * Progress Notes - Edilia Sánchez LCSW - 05/17/2019 5:07 PM EDT Pt participated willingly in initial psychosocial assessment (on 05/17/19). Pt and were both present at bedside for this assessment. Pt was able to identify all resources required for success with txp. Pt reports access to appropriate support system, safe recovery environment at home, and reliable transportation to f/u care. Pt identified his , Deidre Pearson, as his primary caregiver. Pt's confirmed her availability. Pt and reported that pt's 's cousin Christoph is currently at home with their two sons and indoor pets (4 dogs and 1 cat) during this admission. Pt identified his sister Shelbie, pt's close friend Christoph, and pt's cousin Danette as secondary caregivers. Pt's /primary caregiver verified secondary caregiver availability. Pt reports supportive relationships with his family and friends. Pt's eldest step-son Dwain currently works timekeeping supervisor and is a student timekeeping supervisor. Pt also reports multiple additional family members and friends available for additional support PRN. Pt's /primary caregiver was supportive at bedside, attentive to pt, and appropriately concerned with pt's care needs. Pt and /primary caregiver were also coping appropriately. Pt reports an approximate household income > 300% [employer]. Pt was not able to verbalize understanding of risks of procedure. Pt was able to verbalize his goals for more active lifestyle afterwards. Pt reports hx of depression that has been well managed with psychotropic medication (Fluoxetine) asprescribed by his PCP for the last 5+ years. Pt denied any active concerns with his emotional or mental health. Pt also denied any active SI/HI, and pt denied hx of hospitalizations for mental healthissues. Pt is not current with any outpatient mental health providers nor has he been in the past. Pt declined information about community resources at this time. Txp SW provided psychoeducation about how heart txp/LVAD surgery can impact mental health symptoms. Pt verbalizes understanding that emotional health symptoms frequently change around time of procedure, and verbalizes willingness to disc uss with team if new or different symptoms are noted. Pt was coping appropriately during this assessment. Pt denies any hx smoking but pt reports actively using one can of smokeless tobacco daily (last used dip on 05/14/19). Pt reports hx daily ETOH use including binge drinking 12-24 beers (quit 2018). Pt denied any current ETOH or illegal substance use. Pt also denied any legal problems or jew restrictions on medical care. Pt scored 25 on the SIPAT ([place] Integrated Psychosocial Assessment for Transplant) which therefore classifies him as a minimally acceptable candidate for transplant success. The range for this score category is 21-39. Based on today's interview, txp recommends at least three months nicotine free prior to listing for txp, continued nicotine screening at follow up appts (pt's nicotine results pending for this admission), and conversations with the medical providers re: risks/benefits involved in heart txp/VAD procedures. See full assessment in SCM or All Docs (Txp SW #[id number], pager [phone]). * Progress Notes - Heber Page - 05/17/2019 1:30 PM EDT Colonoscopy Report is scanned into OTTR. * Progress Notes - Heber Page - 05/14/2019 4:24 PM EDT Most recent Hosp Discharge Summaries from [facility] and [facility] along with the Ablation from 06/2018 have been scanned into OTTR. Still waiting for Colonscopy * Progress Notes - Heber Page - 05/14/2019 2:52 PM EDT I have requested the records just waiting to recieve them. * Progress Notes - Shelbie Garcia - 05/14/2019 2:00 PM EDT confirmed with Luanne Rico that pt is financially clear to be admitted for eval, per MD Baez pt to be admitted as soon as possible, I contacted pt's and explained that MD Baez was contacted by MD Hobbs yesterday about pt and the plan is to admit the pt MARILU for heart transplant/LVAD evaluation testing, she agreed with the plan and stated they are available to come whenever we tell themto, she stated pt was seen by MD Hobbs again today due to cramping and he was prescribed Flexeril and lab results are pending, I asked how the pt is feeling and she stated he is much better resting comfortable with a heating pad for the cramps, I told her that I will be in touch with the details, I contacted capacity command and they stated there are no open beds at the time but if the pt needs katie admitted then they will allocate a bed for him, I asked if the pt would be more likely to get a room if he arrived in AM and the item processing clerk said yes, I entered a bed request on the Sharepoint and notified pt's who agreed to arrive to [facility] registration tomorrow at 0800-I reviewed the eval testing and process to determine POC including Milrinone, LVAD and/or heart txp, instructed her to take ptto ER if he worsens overnight but to leave me a VM if she does and I provided her with my contact info-she verbalized understanding I reviewed pt's outside records and asked her some questions: pt currently takes Xarelto, denies history of cancer and/or DVT's, reported CVA without deficits in 2006, previous hiatal hernia repair, 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, ablation 2019 at [facility], previous RHC done in 2018 or 2019 at [facility], colonoscopy done 2019 at [facility], admitted to [facility] on 05/02/19 and also in Mar 2019, Cardiomems implanted last week (notified Heber Cornejo to request records for ablation, most recent RHC, colonoscopy and admissions) pt receives disability benefits, emailed map with appt info to [email or web address] Kailey Shetty notified to cancel appt on 05/26, notified MD Baez of the above and emailed eval notified to the eval listserv * Progress Notes - Shelbie Garcia - 05/13/2019 5:25 PM EDT per email from MD Baez: I received a phone call in the middle of [facility] and did not get the name of the referring although it could have been Dr. Eres as he does have an EP visit in 2018 at and mentions this. Either way here is the pt: Jose Pearson, 52 y/o (1970) NICM with LVEF of 15% for many years and recently intermittent outpt Milrinone infusion (?) NYHA class IV symptoms Had RHC showing index 1.6 Renal function normal. Sounds like needs to be set up for a visit MARILU vs. direct admission for eval. I notified him of the info in the above OTTR notes and asked if he wanted me to direct admit tomorrow or schedule for eval on Monday * Progress Notes - Kailey Pena - 05/13/2019 2:48 PM EDT LING Raderalla 05/27/2019 9am sent records to MM and ZR spoke to pt and then his called me back. Pt is on Bumex and is very dry and feels lousy since leaving hospital. She set up an appt with his regular Audio Video Repairer for . I explained beingtransferred to or coming to directly as appropriate. Asked her to mention to Dr. Hobbs about appt with us because she said he has admitted him directly from his clinic twice. Reviewed with her why we moved appt with Enrique to our team. She is very easy to speak with and is an excellent communicator. Mailed map and appt reminder. * Progress Notes - Kailey Pena - 05/13/2019 1:08 PM EDT had DD review recs d/t pt having a new pt appt set up with Enrique on 05/23/19. DD stated pt does not need that appt and to cancel and set up with HF team. She called referring and spoke to mildred. PT was dc'd on Monday. documented in this encounter Plan of Treatment Upcoming Encounters Date Type Department Care Team (Late st Contact Info) Description 01/28/2025 9:00 AM EST Appointment Cardiac Imaging [address] [place] [address] 01/28/2025 10:00 AM EST Ancillary Procedure [facility] [address] [place] [address] documented as of this encounter Procedures Procedure Name Priority Date/Time Associated Diagnosis Comments OTTR LAB RESULTS (MANUAL) Routine 07/28/2020 9:29 AM EDT OTTR LAB RESULTS (MANUAL) Routine 06/16/2020 10:46 AM EDT OTTR LAB RESULTS (MANUAL) Routine 01/07/2020 9:37 AM EST OTTR LAB RESULTS (MANUAL) Routine 12/23/2019 9:35 AM EDT OTTR LAB RESULTS (MANUAL) Routine 12/16/2019 1:08 PM EDT OTTR LAB RESULTS (MANUAL) Routine 12/16/2019 11:00 AM EDT OTTR LAB RESULTS (MANUAL) Routine 11/25/2019 2:33 PM EDT OTTR LAB RESULTS (MANUAL) Routine 11/19/2019 9:34 AM EDT OTTR LAB RESULTS (MANUAL) Routine 11/05/2019 9:08 AM EDT OTTR LAB RESULTS (MANUAL) Routine 11/01/2019 9:58 AM EDT OTTR LAB RESULTS (MANUAL) Routine 10/21/2019 4:44 PM EDT OTTR LAB RESULTS (MANUAL) Routine 09/25/2019 5:04 PM EDT OTTR LAB RESULTS (MANUAL) Routine 08/14/2019 3:03 AM EDT OTTR LAB RESULTS (MANUAL) Routine 08/12/2019 2:33 AM EDT OTTR LAB RESULTS (MANUAL) Routine 08/10/2019 4:10 AM EDT OTTR LAB RESULTS (MANUAL) Routine 08/10/2019 2:10 AM EDT OTTR LAB RESULTS (MANUAL) Routine 08/09/2019 1:59 AM EDT OTTR LAB RESULTS (MANUAL) Routine 08/07/2019 2:08 AM EDT OTTR LAB RESULTS (MANUAL) Routine 08/06/2019 9:24 AM EDT OTTR LAB RESULTS (MANUAL) Routine 08/05/2019 4:52 AM EDT OTTR LAB RESULTS (MANUAL) Routine 08/04/2019 1:42 AM EDT OTTR LAB RESULTS (MANUAL) Routine 08/03/2019 3:37 AM EDT OTTR LAB RESULTS (MANUAL) Routine 08/02/2019 3:17 AM EDT OTTR LAB RESULTS (MANUAL) Routine 07/31/2019 2:26 AM EDT OTTR LAB RESULTS (MANUAL) Routine 07/29/2019 3:39 AM EDT OTTR LAB RESULTS (MANUAL) Routine 07/28/2019 4:04 AM EDT OTTR LAB RESULTS (MANUAL) Routine 07/26/2019 5:34 AM EDT OTTR LAB RESULTS (MANUAL) Routine 07/24/2019 2:17 AM EDT OTTR LAB RESULTS (MANUAL) Routine 07/22/2019 12:33 PM EDT OTTR LAB RESULTS (MANUAL) Routine 07/22/2019 2:35 AM EDT OTTR LAB RESULTS (MANUAL) Routine 07/21/2019 5:39 PM EDT OTTR LAB RESULTS (MANUAL) Routine 07/21/2019 3:13 AM EDT OTTR LAB RESULTS (MANUAL) Routine 07/20/2019 2:25 PM EDT OTTR LAB RESULTS (MANUAL) Routine 07/20/2019 1:55 AM EDT OTTR LAB RESULTS (MANUAL) Routine 07/19/2019 12:26 PM EDT OTTR LAB RESULTS (MANUAL) Routine 07/19/2019 2:50 AM EDT OTTR LAB RESULTS (MANUAL) Routine 07/18/2019 3:30 AM EDT OTTR LAB RESULTS (MANUAL) Routine 07/17/2019 3:33 AM EDT OTTR LAB RESULTS (MANUAL) Routine 07/16/2019 1:11 AM EDT OTTR LAB RESULTS (MANUAL) Routine 07/15/2019 1:56 AM EDT OTTR LAB RESULTS (MANUAL) Routine 07/14/2019 1:56 AM EDT OTTR LAB RESULTS (MANUAL) Routine 07/13/2019 4:51 AM EDT OTTR LAB RESULTS (MANUAL) Routine 07/12/2019 5:39 PM EDT OTTR LAB RESULTS (MANUAL) Routine 07/12/2019 2:03 AM EDT OTTR LAB RESULTS (MANUAL) Routine 07/11/2019 8:53 PM EDT OTTR LAB RESULTS (MANUAL) Routine 07/11/2019 4:30 AM EDT OTTR LAB RESULTS (MANUAL) Routine 07/10/2019 4:26 PM EDT OTTR LAB RESULTS (MANUAL) Routine 07/10/2019 4:14 AM EDT OTTR LAB RESULTS (MANUAL) Routine 07/09/2019 6:57 PM EDT OTTR LAB RESULTS (MANUAL) Routine 07/09/2019 3:30 PM EDT OTTR LAB RESULTS (MANUAL) Routine 07/09/2019 4:06 AM EDT OTTR LAB RESULTS (MANUAL) Routine 07/08/2019 4:11 PM EDT OTTR LAB RESULTS (MANUAL) Routine 07/08/2019 4:11 AM EDT OTTR LAB RESULTS (MANUAL) Routine 07/07/2019 3:25 PM EDT OTTR LAB RESULTS (MANUAL) Routine 07/07/2019 2:04 AM EDT OTTR LAB RESULTS (MANUAL) Routine 07/06/2019 9:56 PM EDT OTTR LAB RESULTS (MANUAL) Routine 07/06/2019 2:08 AM EDT OTTR LAB RESULTS (MANUAL) Routine 07/05/2019 8:40 PM EDT OTTR LAB RESULTS (MANUAL) Routine 07/05/2019 12:25 PM EDT OTTR LAB RESULTS (MANUAL) Routine 07/05/2019 2:44 AM EDT OTTR LAB RESULTS (MANUAL) Routine 07/04/2019 4:08 PM EDT OTTR LAB RESULTS (MANUAL) Routine 07/04/2019 3:07 AM EDT OTTR LAB RESULTS (MANUAL) Routine 07/03/2019 11:53 PM EDT OTTR LAB RESULTS (MANUAL) Routine 07/03/2019 4:42 PM EDT OTTR LAB RESULTS (MANUAL) Routine 07/03/2019 2:17 AM EDT OTTR LAB RESULTS (MANUAL) Routine 07/02/2019 2:31 AM EDT OTTR LAB RESULTS (MANUAL) Routine 07/01/2019 3:10 PM EDT OTTR LAB RESULTS (MANUAL) Routine 07/01/2019 1:57 AM EDT OTTR LAB RESULTS (MANUAL) Routine 06/30/2019 3:28 PM EDT OTTR LAB RESULTS (MANUAL) Routine 06/30/2019 2:34 AM EDT OTTR LAB RESULTS (MANUAL) Routine 06/29/2019 1:34 PM EDT OTTR LAB RESULTS (MANUAL) Routine 06/29/2019 3:33 AM EDT OTTR LAB RESULTS (MANUAL) Routine 06/28/2019 4:27 PM EDT OTTR LAB RESULTS (MANUAL) Routine 06/28/2019 3:42 AM EDT OTTR LAB RESULTS (MANUAL) Routine 06/27/2019 4:13 PM EDT OTTR LAB RESULTS (MANUAL) Routine 06/27/2019 9:47 AM EDT OTTR LAB RESULTS (MANUAL) Routine 06/27/2019 4:04 AM EDT OTTR LAB RESULTS (MANUAL) Routine 06/26/2019 5:02 PM EDT OTTR LAB RESULTS (MANUAL) Routine 06/26/2019 11:00 AM EDT OTTR LAB RESULTS (MANUAL) Routine 06/26/2019 3:58 AM EDT OTTR LAB RESULTS (MANUAL) Routine 06/25/2019 3:46 PM EDT OTTR LAB RESULTS (MANUAL) Routine 06/25/2019 4:04 AM EDT OTTR LAB RESULTS (MANUAL) Routine 06/23/2019 11:46 AM EDT OTTR LAB RESULTS (MANUAL) Routine 06/23/2019 2:22 AM EDT OTTR LAB RESULTS (MANUAL) Routine 06/21/2019 2:39 AM EDT OTTR LAB RESULTS (MANUAL) Routine 06/20/2019 2:34 PM EDT OTTR LAB RESULTS (MANUAL) Routine 06/20/2019 5:50 AM EDT OTTR LAB RESULTS (MANUAL) Routine 06/20/2019 2:13 AM EDT OTTR LAB RESULTS (MANUAL) Routine 06/19/2019 9:09 PM EDT OTTR LAB RESULTS (MANUAL) Routine 06/19/2019 1:34 PM EDT OTTR LAB RESULTS (MANUAL) Routine 06/19/2019 2:06 AM EDT OTTR LAB RESULTS (MANUAL) Routine 06/18/2019 3:40 PM EDT OTTR LAB RESULTS (MANUAL) Routine 06/18/2019 4:36 AM EDT OTTR LAB RESULTS (MANUAL) Routine 06/17/2019 1:44 AM EDT OTTR LAB RESULTS (MANUAL) Routine 06/16/2019 5:54 PM EDT OTTR LAB RESULTS (MANUAL) Routine 06/16/2019 11:39 AM EDT OTTR LAB RESULTS (MANUAL) Routine 06/15/2019 11:52 AM EDT OTTR LAB RESULTS (MANUAL) Routine 06/15/2019 3:57 AM EDT OTTR LAB RESULTS (MANUAL) Routine 06/15/2019 12:00 AM EDT OTTR LAB RESULTS (MANUAL) Routine 06/14/2019 3:50 PM EDT OTTR LAB RESULTS (MANUAL) Routine 06/14/2019 3:51 AM EDT OTTR LAB RESULTS (MANUAL) Routine 06/13/2019 10:02 PM EDT OTTR LAB RESULTS (MANUAL) Routine 06/13/2019 6:29 PM EDT OTTR LAB RESULTS (MANUAL) Routine 06/13/2019 11:44 AM EDT OTTR LAB RESULTS (MANUAL) Routine 06/13/2019 2:14 AM EDT OTTR LAB RESULTS (MANUAL) Routine 06/12/2019 6:45 PM EDT OTTR LAB RESULTS (MANUAL) Routine 06/12/2019 9:27 AM EDT OTTR LAB RESULTS (MANUAL) Routine 06/12/2019 3:01 AM EDT OTTR LAB RESULTS (MANUAL) Routine 06/11/2019 2:56 AM EDT OTTR LAB RESULTS (MANUAL) Routine 06/10/2019 2:52 AM EDT OTTR LAB RESULTS (MANUAL) Routine 06/09/2019 12:12 PM EDT OTTR LAB RESULTS (MANUAL) Routine 06/09/2019 2:19 AM EDT OTTR LAB RESULTS (MANUAL) Routine 06/08/2019 3:20 PM EDT OTTR LAB RESULTS (MANUAL) Routine 06/08/2019 12:35 PM EDT OTTR LAB RESULTS (MANUAL) Routine 06/08/2019 10:28 AM EDT OTTR LAB RESULTS (MANUAL) Routine 06/08/2019 8:04 AM EDT OTTR LAB RESULTS (MANUAL) Routine 06/08/2019 6:23 AM EDT OTTR LAB RESULTS (MANUAL) Routine 06/08/2019 2:56 AM EDT OTTR LAB RESULTS (MANUAL) Routine 06/07/2019 10:55 PM EDT OTTR LAB RESULTS (MANUAL) Routine 06/07/2019 5:25 PM EDT OTTR LAB RESULTS (MANUAL) Routine 06/07/2019 12:22 PM EDT OTTR LAB RESULTS (MANUAL) Routine 06/07/2019 4:53 AM EDT OTTR LAB RESULTS (MANUAL) Routine 06/07/2019 3:04 AM EDT OTTR LAB RESULTS (MANUAL) Routine 06/06/2019 2:22 PM EDT OTTR LAB RESULTS (MANUAL) Routine 06/06/2019 1:30 AM EDT OTTR LAB RESULTS (MANUAL) Routine 06/05/2019 10:12 AM EDT OTTR LAB RESULTS (MANUAL) Routine 05/17/2019 2:05 AM EDT OTTR LAB RESULTS (MANUAL) Routine 05/16/2019 9:46 AM EDT OTTR LAB RESULTS (MANUAL) Routine 05/16/2019 4:52 AM EDT OTTR LAB RESULTS (MANUAL) Routine 05/16/2019 1:24 AM EDT OTTR LAB RESULTS (MANUAL) Routine 05/15/2019 7:23 PM EDT documented in this encounter Results * OTTR LAB RESULTS (MANUAL) (07/28/2020 9:29 AM EDT) External Estimated GFR 126.37 EXTERNAL LAB 07/28/2020 9:29 AM EDT Narrative EXTERNAL LAB - 07/28/2020 10:41 AM EDT Automated LAB Interface Historical Provider LAB BLOOD ORDERABLES Final R esult Performing Organization Address [facility] Co de Phone Number EXTERNAL LAB * OTTR LAB RESULTS (MANUAL) (06/16/2020 10:46 AM EDT) External Estimated GFR 148.12 EXTERNAL LAB 06/16/2020 10:4 6 AM EDT Narrative EXTERNAL LAB - 06/16/2020 12:27 PM EDT Automated LAB Interface Historical Provider LAB BLOOD ORDERABLES Final R esult Performing Organization Address [facility]/ZIP Co de Phone Number EXTERNAL LAB * OTTR LAB RESULTS (MANUAL) (01/07/2020 9:37 AM EST) External Estimated GFR 114.93 EXTERNAL LAB 01/07/2020 9:37 AM EST Narrative EXTERNAL LAB - 01/07/2020 11:27 AM EST Automated LAB Interface Historical Provider LAB BLOOD ORDERABLES Final R esult Performing Organization Address City/[facility]/ZIP Co de Phone Number EXTERNAL LAB * OTTR LAB RESULTS (MANUAL) (12/23/2019 9:35 AM EDT) External Glucose 116 mg/dL EXTERNAL LAB External BUN 24 mg/dL EXTERNAL LAB External Creatinine Blood 0.82 mg/dL EXTERNAL LAB External UN/Creat Ratio (UC) 29.3 EXTERNAL LAB External Sodium (Na) 138 mmol/L EXTERNAL LAB External Potassium (K) 4.1 mmol/L EXTERNAL LAB External Chloride (Cl) 101 mmol/L EXTERNAL LAB External Carbon Dioxide (CO2) 24 mmol/L EXTERNAL LAB External Calcium (Ca) 9.5 mg/dL EXTERNAL LAB External AST (SGOT) 24 units/L EXTERNAL LAB External ALT (SGPT) 35 units/L EXTERNAL LAB External Alkaline Phosphatase 96 U/L EXTERNAL LAB External Bilirubin Total 0.5 mg/dL EXTERNAL LAB External Total Protein 7.4 g/dL EXTERNAL LAB External Albumin 4.1 g/dL EXTERNAL LAB External Estimated GFR 105.28 EXTERNAL LAB 12/23/2019 9:35 AM EDT Narrative EXTERNAL LAB - 12/25/2019 9:37 AM EDT [facility] Historical Provider LAB BLOOD ORDERABLES Final R esult Performing Organization Address [facility]/[place] de Phone Number EXTERNAL LAB * OTTR LAB RESULTS (MANUAL) (12/16/2019 1:08 PM EDT) External Estimated GFR 85.70 EXTERNAL LAB 12/16/2019 1:08 PM EDT Narrative EXTERNAL LAB - 12/16/2019 4:15 PM EDT Automated LAB Interface us Historical Provider LAB BLOOD ORDERABLES Final R esult EXTERNAL LAB * OTTR LAB RESULTS (MANUAL) (12/16/2019 11:00 AM EDT) External Glucose 50 mg/dL EXTERNAL LAB External BUN 24 mg/dL EXTERNAL LAB External Creatinine Blood 0.8 mg/dL EXTERNAL LAB External Sodium (Na) 140 mmol/L EXTERNAL LAB External Potassium (K) 4.0 mmol/L EXTERNAL LAB External Chloride (Cl) 103 mmol/L EXTERNAL LAB External Carbon Dioxide (CO2) 28.4 mmol/L EXTERNAL LAB External Calcium (Ca) 9.2 mg/dL EXTERNAL LAB External AST (SGOT) 25 units/L EXTERNAL LAB External ALT (SGPT) 47 units/L EXTERNAL LAB External Alkaline Phosphatase 87 U/L EXTERNAL LAB External Bilirubin Total 0.58 mg/dL EXTERNAL LAB External Total Protein 7.8 g/dL EXTERNAL LAB External Albumin 3.6 g/dL EXTERNAL LAB External Estimated GFR 108.32 EXTERNAL LAB 12/16/2019 11:0 0 AM EDT Narrative EXTERNAL LAB - 12/17/2019 11:04 AM EDT [facility] us Historical Provider LAB BLOOD ORDERABLES Final R esult EXTERNAL LAB * OTTR LAB RESULTS (MANUAL) (11/25/2019 2:33 PM EDT) External Glucose 103 mg/dL EXTERNAL LAB External BUN 21 mg/dL EXTERNAL LAB External Creatinine Blood 0.7 mg/dL EXTERNAL LAB External UN/Creat Ratio (UC) 30 EXTERNAL LAB External Sodium (Na) 135 mmol/L EXTERNAL LAB External Potassium (K) 3.9 mmol/L EXTERNAL LAB External Chloride (Cl) 97 mmol/L EXTERNAL LAB External Carbon Dioxide (CO2) 28 mmol/L EXTERNAL LAB External Calcium (Ca) 9.4 mg/dL EXTERNAL LAB External AST (SGOT) 38 units/L EXTERNAL LAB External ALT (SGPT) 27 units/L EXTERNAL LAB External Alkaline Phosphatase 98 U/L EXTERNAL LAB External Bilirubin Total 0.7 mg/dL EXTERNAL LAB External Total Protein 7.6 g/dL EXTERNAL LAB External Albumin 4.2 g/dL EXTERNAL LAB External Estimated GFR 126.37 EXTERNAL LAB 11/25/2019 2:33 PM EDT Narrative EXTERNAL LAB - 11/25/2019 2:41 PM EDT [facility] us Historical Provider LAB BLOOD ORDERABLES Final R esult EXTERNAL LAB * OTTR LAB RESULTS (MANUAL) (11/19/2019 9:34 AM EDT) External Estimated GFR 108.32 EXTERNAL LAB 11/19/2019 9:34 AM EDT Narrative EXTERNAL LAB - 11/19/2019 10:39 AM EDT Automated LAB Interface us Historical Provider LAB BLOOD ORDERABLES Final R esult EXTERNAL LAB * OTTR LAB RESULTS (MANUAL) (11/05/2019 9:08 AM EDT) External Glucose 96 mg/dL EXTERNAL LAB External BUN 22 mg/dL EXTERNAL LAB External Creatinine Blood 0.8 mg/dL EXTERNAL LAB External UN/Creat Ratio (UC) 27.5 EXTERNAL LAB External Sodium (Na) 138 mmol/L EXTERNAL LAB External Potassium (K) 4.1 mmol/L EXTERNAL LAB External Chloride (Cl) 102 mmol/L EXTERNAL LAB External Carbon Dioxide (CO2) 27 mmol/L EXTERNAL LAB External Calcium (Ca) 9.3 mg/dL EXTERNAL LAB External AST (SGOT) 36 units/L EXTERNAL LAB External ALT (SGPT) 63 units/L EXTERNAL LAB External Alkaline Phosphatase 95 U/L EXTERNAL LAB External Bilirubin Total 0.8 mg/dL EXTERNAL LAB External Total Protein 8.1 g/dL EXTERNAL LAB External Albumin 3.8 g/dL EXTERNAL LAB External Prothrombin Time (PT) 15.7 seconds EXTERNAL LAB External INR - Internormal Ratio 1.58 EXTERNAL LAB External Estimated GFR 108.76 EXTERNAL LAB 11/05/2019 9:08 AM EDT Narrative EXTERNAL LAB - 11/08/2019 9:10 AM EDT [facility] us Historical Provider LAB BLOOD ORDERABLES Final R esult EXTERNAL LAB * OTTR LAB RESULTS (MANUAL) (11/01/2019 9:58 AM EDT) External WBC 8.3 k/uL EXTERNAL LAB External Red Blood Cell (RBC) 5.69 M/uL EXTERNAL LAB External Hemoglobin (Hgb) 14.7 gm/dL EXTERNAL LAB External Hematocrit (Hct) 45.8 % EXTERNAL LAB External Platelet Count (Plt) 304 k/uL EXTERNAL LAB External MCV 80.5 fL EXTERNAL LAB External Glucose 90 mg/dL EXTERNAL LAB External BUN 19 mg/dL EXTERNAL LAB External Creatinine Blood 0.7 mg/dL EXTERNAL LAB External UN/Creat Ratio (UC) 27.1 EXTERNAL LAB External Sodium (Na) 136 mmol/L EXTERNAL LAB External Potassium (K) 4 mmol/L EXTERNAL LAB External Chloride (Cl) 99 mmol/L EXTERNAL LAB External Carbon Dioxide (CO2) 27 mmol/L EXTERNAL LAB External Calcium (Ca) 9.2 mg/dL EXTERNAL LAB External AST (SGOT) 32 units/L EXTERNAL LAB External ALT (SGPT) 57 units/L EXTERNAL LAB External Alkaline Phosphatase 100 U/L EXTERNAL LAB External Bilirubin Total 0.8 mg/dL EXTERNAL LAB External Total Protein 7.9 g/dL EXTERNAL LAB External Albumin 3.6 g/dL EXTERNAL LAB External Estimated GFR 126.88 EXTERNAL LAB 11/01/2019 9:58 AM EDT Narrative EXTERNAL LAB - 11/05/2019 10:09 AM EDT [facility] us Historical Provider LAB BLOOD ORDERABLES Final R esult EXTERNAL LAB * OTTR LAB RESULTS (MANUAL) (10/21/2019 4:44 PM EDT) External Glucose 88 mg/dL EXTERNAL LAB External BUN 19 mg/dL EXTERNAL LAB External Creatinine Blood 0.7 mg/dL EXTERNAL LAB External UN/Creat Ratio (UC) 27.1 EXTERNAL LAB External Sodium (Na) 138 mmol/L EXTERNAL LAB External Potassium (K) 4.4 mmol/L EXTERNAL LAB External Chloride (Cl) 101 mmol/L EXTERNAL LAB External Carbon Dioxide (CO2) 29 mmol/L EXTERNAL LAB External Calcium (Ca) 9.5 mg/dL EXTERNAL LAB External AST (SGOT) 32 units/L EXTERNAL LAB External ALT (SGPT) 61 units/L EXTERNAL LAB External Alkaline Phosphatase 99 U/L EXTERNAL LAB External Bilirubin Total 0.6 mg/dL EXTERNAL LAB External Total Protein 7.5 g/dL EXTERNAL LAB External Albumin 3.8 g/dL EXTERNAL LAB External Prothrombin Time (PT) 18.9 seconds EXTERNAL LAB External INR - Internormal Ratio 1.9 EXTERNAL LAB External Estimated GFR 126.88 EXTERNAL LAB 10/21/2019 4:44 PM EDT Narrative EXTERNAL LAB - 10/22/2019 4:46 PM EDT [facility] Historical Provider LAB BLOOD ORDERABLES Final R esult Performing Organization Address [facility] Co de Phone Number EXTERNAL LAB * OTTR LAB RESULTS (MANUAL) (09/25/2019 5:04 PM EDT) External WBC 7.9 k/uL EXTERNAL LAB External Red Blood Cell (RBC) 5.15 M/uL EXTERNAL LAB External Hemoglobin (Hgb) 13.5 gm/dL EXTERNAL LAB External Hematocrit (Hct) 42.9 % EXTERNAL LAB External Platelet Count (Plt) 460 k/uL EXTERNAL LAB External MCV 83.3 fL EXTERNAL LAB External Prothrombin Time (PT) 16.2 seconds EXTERNAL LAB External INR - Internormal Ratio 1.67 EXTERNAL LAB 09/25/2019 5:04 PM EDT Narrative EXTERNAL LAB - 09/27/2019 5:06 PM EDT [facility] Historical Provider LAB BLOOD ORDERABLES Final R esult Performing Organization Address [facility]/[place] de Phone Number EXTERNAL LAB * OTTR LAB RESULTS (MANUAL) (08/14/2019 3:03 AM EDT) External Estimated GFR 282.34 EXTERNAL LAB 08/14/2019 3:03 AM EDT Narrative EXTERNAL LAB - 08/14/2019 4:51 AM EDT Automated LAB Interface Historical Provider LAB BLOOD ORDERABLES Final R esult Performing Organization Address [facility] Co de Phone Number EXTERNAL LAB * OTTR LAB RESULTS (MANUAL) (08/12/2019 2:33 AM EDT) External Estimated GFR 350.76 EXTERNAL LAB 08/12/2019 2:33 AM EDT Narrative EXTERNAL LAB - 08/12/2019 3:13 AM EDT Automated LAB Interface Historical Provider LAB BLOOD ORDERABLES Final R esult Performing Organization Address [facility] de Phone Number EXTERNAL LAB * OTTR LAB RESULTS (MANUAL) (08/10/2019 4:10 AM EDT) External Estimated GFR 324.78 EXTERNAL LAB 08/10/2019 4:10 AM EDT Narrative EXTERNAL LAB - 08/10/2019 5:18 AM EDT Automated LAB Interface Historical Provider LAB BLOOD ORDERABLES Final R esult Performing Organization Address [facility] de Phone Number EXTERNAL LAB * OTTR LAB RESULTS (MANUAL) (08/10/2019 2:10 AM EDT) External Estimated GFR 337.31 EXTERNAL LAB 08/10/2019 2:10 AM EDT Narrative EXTERNAL LAB - 08/10/2019 3:27 AM EDT Automated LAB Interface us Historical Provider LAB BLOOD ORDERABLES Final R esult Performing Organization Address [facility] de Phone Number EXTERNAL LAB * OTTR LAB RESULTS (MANUAL) (08/09/2019 1:59 AM EDT) External Estimated GFR 256.77 EXTERNAL LAB 08/09/2019 1:59 AM EDT Narrative EXTERNAL LAB - 08/09/2019 3:17 AM EDT Automated LAB Interface Historical Provider LAB BLOOD ORDERABLES Final R esult Performing Organization Address [facility] de Phone Number EXTERNAL LAB * OTTR LAB RESULTS (MANUAL) (08/07/2019 2:08 AM EDT) External Estimated GFR 235.22 EXTERNAL LAB 08/07/2019 2:08 AM EDT Narrative EXTERNAL LAB - 08/07/2019 6:05 AM EDT Automated LAB Interface us Historical Provider LAB BLOOD ORDERABLES Final R esult Performing Organization Address [facility]/[place] de Phone Number EXTERNAL LAB * OTTR LAB RESULTS (MANUAL) (08/06/2019 9:24 AM EDT) External Estimated GFR 235.22 EXTERNAL LAB 08/06/2019 9:24 AM EDT Narrative EXTERNAL LAB - 08/06/2019 10:54 AM EDT Automated LAB Interface us Historical Provider LAB BLOOD ORDERABLES Final R esult Performing Organization Address [place]/[facility]/ZIP Co de Phone Number EXTERNAL LAB * OTTR LAB RESULTS (MANUAL) (08/05/2019 4:52 AM EDT) External Estimated GFR 273.31 EXTERNAL LAB 08/05/2019 4:52 AM EDT Narrative EXTERNAL LAB - 08/05/2019 6:21 AM EDT Automated LAB Interface Historical Provider LAB BLOOD ORDERABLES Final R esult Performing Organization Address [facility]/ZIP Co de Phone Number EXTERNAL LAB * OTTR LAB RESULTS (MANUAL) (08/04/2019 1:42 AM EDT) External Estimated GFR 228.77 EXTERNAL LAB 08/04/2019 1:42 AM EDT Narrative EXTERNAL LAB - 08/04/2019 6:13 AM EDT Automated LAB Interface Historical Provider LAB BLOOD ORDERABLES Final R esult Performing Organization Address [facility] Co de Phone Number EXTERNAL LAB * OTTR LAB RESULTS (MANUAL) (08/03/2019 3:37 AM EDT) External Estimated GFR 256.77 EXTERNAL LAB 08/03/2019 3:37 AM EDT Narrative EXTERNAL LAB - 08/03/2019 4:21 AM EDT Automated LAB Interface us Historical Provider LAB BLOOD ORDERABLES Final R esult EXTERNAL LAB * OTTR LAB RESULTS (MANUAL) (08/02/2019 3:17 AM EDT) External Estimated GFR 264.80 EXTERNAL LAB 08/02/2019 3:17 AM EDT Narrative EXTERNAL LAB - 08/02/2019 3:57 AM EDT Automated LAB Interface Historical Provider LAB BLOOD ORDERABLES Final R esult Performing Organization Address [facility]/[place] de Phone Number EXTERNAL LAB * OTTR LAB RESULTS (MANUAL) (07/31/2019 2:26 AM EDT) External Estimated GFR 273.31 EXTERNAL LAB 07/31/2019 2:26 AM EDT Narrative EXTERNAL LAB - 07/31/2019 6:59 AM EDT Automated LAB Interface us Historical Provider LAB BLOOD ORDERABLES Final R esult Performing Organization Address [facility]/[place] de Phone Number EXTERNAL LAB * OTTR LAB RESULTS (MANUAL) (07/29/2019 3:39 AM EDT) External Estimated GFR 242.02 EXTERNAL LAB 07/29/2019 3:39 AM EDT Narrative EXTERNAL LAB - 07/29/2019 7:09 AM EDT Automated LAB Interface us Historical Provider LAB BLOOD ORDERABLES Final R esult Performing Organization Address [facility]/[place] de Phone Number EXTERNAL LAB * OTTR LAB RESULTS (MANUAL) (07/28/2019 4:04 AM EDT) External Estimated GFR 242.02 EXTERNAL LAB 07/28/2019 4:04 AM EDT Narrative EXTERNAL LAB - 07/28/2019 4:51 AM EDT Automated LAB Interface us Historical Provider LAB BLOOD ORDERABLES Final R esult Performing Organization Address [facility]/ZIP Co de Phone Number EXTERNAL LAB * OTTR LAB RESULTS (MANUAL) (07/26/2019 5:34 AM EDT) External Estimated GFR 242.02 EXTERNAL LAB 07/26/2019 5:34 AM EDT Narrative EXTERNAL LAB - 07/26/2019 6:03 AM EDT Automated LAB Interface us Historical Provider LAB BLOOD ORDERABLES Final R esult Performing Organization Address City/[facility]/ZIP Co de Phone Number EXTERNAL LAB * OTTR LAB RESULTS (MANUAL) (07/24/2019 2:17 AM EDT) External Estimated GFR 291.94 EXTERNAL LAB 07/24/2019 2:17 AM EDT Narrative EXTERNAL LAB - 07/24/2019 2:50 AM EDT Automated LAB Interface Historical Provider LAB BLOOD ORDERABLES Final R esult Performing Organization Address [facility] Co de Phone Number EXTERNAL LAB * OTTR LAB RESULTS (MANUAL) (07/22/2019 12:33 PM EDT) External Estimated GFR 228.77 EXTERNAL LAB 07/22/2019 12:3 3 PM EDT Narrative EXTERNAL LAB - 07/22/2019 1:26 PM EDT Automated LAB Interface Historical Provider LAB BLOOD ORDERABLES Final R esult Performing Organization Address [facility] Co de Phone Number EXTERNAL LAB * OTTR LAB RESULTS (MANUAL) (07/22/2019 2:35 AM EDT) External Estimated GFR 242.02 EXTERNAL LAB 07/22/2019 2:35 AM EDT Narrative EXTERNAL LAB - 07/22/2019 3:30 AM EDT Automated LAB Interface Historical Provider LAB BLOOD ORDERABLES Final R esult Performing Organization Address City/[facility]/ZIP Co de Phone Number EXTERNAL LAB * OTTR LAB RESULTS (MANUAL) (07/21/2019 5:39 PM EDT) External Estimated GFR 249.19 EXTERNAL LAB 07/21/2019 5:39 PM EDT Narrative EXTERNAL LAB - 07/21/2019 6:05 PM EDT Automated LAB Interface Historical Provider LAB BLOOD ORDERABLES Final R esult Performing Organization Address [facility] de Phone Number EXTERNAL LAB * OTTR LAB RESULTS (MANUAL) (07/21/2019 3:13 AM EDT) External Estimated GFR 228.77 EXTERNAL LAB 07/21/2019 3:13 AM EDT Narrative EXTERNAL LAB - 07/21/2019 7:02 AM EDT Automated LAB Interface Historical Provider LAB BLOOD ORDERABLES Final R esult Performing Organization Address [facility] de Phone Number EXTERNAL LAB * OTTR LAB RESULTS (MANUAL) (07/20/2019 2:25 PM EDT) External Estimated GFR 222.64 EXTERNAL LAB 07/20/2019 2:25 PM EDT Narrative EXTERNAL LAB - 07/20/2019 4:27 PM EDT Automated LAB Interface Historical Provider LAB BLOOD ORDERABLES Final R esult Performing Organization Address [facility] de Phone Number EXTERNAL LAB * OTTR LAB RESULTS (MANUAL) (07/20/2019 1:55 AM EDT) External Estimated GFR 211.26 EXTERNAL LAB 07/20/2019 1:55 AM EDT Narrative EXTERNAL LAB - 07/20/2019 2:29 AM EDT Automated LAB Interface us Historical Provider LAB BLOOD ORDERABLES Final R esult Performing Organization Address [facility] de Phone Number EXTERNAL LAB * OTTR LAB RESULTS (MANUAL) (07/19/2019 12:26 PM EDT) External Estimated GFR 222.64 EXTERNAL LAB 07/19/2019 12:2 6 PM EDT Narrative EXTERNAL LAB - 07/19/2019 1:00 PM EDT Automated LAB Interface Historical Provider LAB BLOOD ORDERABLES Final R esult Performing Organization Address [facility]/[place] de Phone Number EXTERNAL LAB * OTTR LAB RESULTS (MANUAL) (07/19/2019 2:50 AM EDT) External Estimated GFR 222.64 EXTERNAL LAB 07/19/2019 2:50 AM EDT Narrative EXTERNAL LAB - 07/19/2019 5:07 AM EDT Automated LAB Interface Historical Provider LAB BLOOD ORDERABLES Final R esult Performing Organization Address [facility]/[place] de Phone Number EXTERNAL LAB * OTTR LAB RESULTS (MANUAL) (07/18/2019 3:30 AM EDT) External Estimated GFR 205.97 EXTERNAL LAB 07/18/2019 3:30 AM EDT Narrative EXTERNAL LAB - 07/18/2019 4:07 AM EDT Automated LAB Interface Historical Provider LAB BLOOD ORDERABLES Final R esult Performing Organization Address [facility]/[place] de Phone Number EXTERNAL LAB * OTTR LAB RESULTS (MANUAL) (07/17/2019 3:33 AM EDT) External Estimated GFR 222.64 EXTERNAL LAB 07/17/2019 3:33 AM EDT Narrative EXTERNAL LAB - 07/17/2019 6:36 AM EDT Automated LAB Interface Historical Provider LAB BLOOD ORDERABLES Final R esult Performing Organization Address [facility]/[place] de Phone Number EXTERNAL LAB * OTTR LAB RESULTS (MANUAL) (07/16/2019 1:11 AM EDT) External Estimated GFR 200.92 EXTERNAL LAB 07/16/2019 1:11 AM EDT Narrative EXTERNAL LAB - 07/16/2019 2:24 AM EDT Automated LAB Interface us Historical Provider LAB BLOOD ORDERABLES Final R esult Performing Organization Address [facility]/[place] de Phone Number EXTERNAL LAB * OTTR LAB RESULTS (MANUAL) (07/15/2019 1:56 AM EDT) External Estimated GFR 228.77 EXTERNAL LAB 07/15/2019 1:56 AM EDT Narrative EXTERNAL LAB - 07/15/2019 2:59 AM EDT Automated LAB Interface Historical Provider LAB BLOOD ORDERABLES Final R esult Performing Organization Address [facility]/[place] de Phone Number EXTERNAL LAB * OTTR LAB RESULTS (MANUAL) (07/14/2019 1:56 AM EDT) Pathologist [facility] External Estimated GFR 249.19 EXTERNAL LAB 07/14/2019 1:56 AM EDT Narrative EXTERNAL LAB - 07/14/2019 3:02 AM EDT Automated LAB Interface Historical Provider [facility] Per[facility] Organization Address [facility]/[place] de Phone Number EXTERNAL LAB * OTTR LAB RESULTS (MANUAL) (07/13/2019 4:51 AM EDT) Pathologist [facility] External Estimated GFR 273.31 EXTERNAL LAB 07/13/2019 4:51 AM EDT Narrative EXTERNAL LAB - 07/13/2019 6:25 AM EDT Automated LAB Interface Historical Provider LAB BLOOD ORDERABLES Final R esult Performing Organization Address [facility]/[place] de Phone Number EXTERNAL LAB * OTTR LAB RESULTS (MANUAL) (07/12/2019 5:39 PM EDT) Pathologist [facility] External Estimated GFR 228.77 EXTERNAL LAB 07/12/2019 5:39 PM EDT Narrative EXTERNAL LAB - 07/12/2019 6:20 PM EDT Automated LAB Interface Historical Provider LAB BLOOD ORDERABLES Final R esult Performing Organization Address [facility]/[place] de Phone Number EXTERNAL LAB * OTTR LAB RESULTS (MANUAL) (07/12/2019 2:03 AM EDT) External Estimated GFR 228.77 EXTERNAL LAB 07/12/2019 2:03 AM EDT Narrative EXTERNAL LAB - 07/12/2019 6:39 AM EDT Automated LAB Interface us Historical Provider LAB BLOOD ORDERABLES Final R esult Performing Organization Address [place]/[facility] Co de Phone Number EXTERNAL LAB * OTTR LAB RESULTS (MANUAL) (07/11/2019 8:53 PM EDT) External Estimated GFR 205.97 EXTERNAL LAB 07/11/2019 8:53 PM EDT Narrative EXTERNAL LAB - 07/11/2019 9:33 PM EDT Automated LAB Interface us Historical Provider LAB BLOOD ORDERABLES Final R esult Performing Organization Address [facility]/[place] de Phone Number EXTERNAL LAB * OTTR LAB RESULTS (MANUAL) (07/11/2019 4:30 AM EDT) External Estimated GFR 235.22 EXTERNAL LAB 07/11/2019 4:30 AM EDT Narrative EXTERNAL LAB - 07/11/2019 6:41 AM EDT Automated LAB Interface us Historical Provider LAB BLOOD ORDERABLES Final R esult Performing Organization Address [facility]/[place] de Phone Number EXTERNAL LAB * OTTR LAB RESULTS (MANUAL) (07/10/2019 4:26 PM EDT) External Estimated GFR 211.26 EXTERNAL LAB 07/10/2019 4:26 PM EDT Narrative EXTERNAL LAB - 07/10/2019 4:57 PM EDT Automated LAB Interface us Historical Provider LAB BLOOD ORDERABLES Final R esult Performing Organization Address City/[facility]/ZIP Co de Phone Number EXTERNAL LAB * OTTR LAB RESULTS (MANUAL) (07/10/2019 4:14 AM EDT) External Estimated GFR 264.80 EXTERNAL LAB 07/10/2019 4:14 AM EDT Narrative EXTERNAL LAB - 07/10/2019 5:26 AM EDT Automated LAB Interface us Historical Provider LAB BLOOD ORDERABLES Final R esult Performing Organization Address [place]/[facility] Co de Phone Number EXTERNAL LAB * OTTR LAB RESULTS (MANUAL) (07/09/2019 6:57 PM EDT) External Estimated GFR 211.26 EXTERNAL LAB 07/09/2019 6:57 PM EDT Narrative EXTERNAL LAB - 07/09/2019 7:31 PM EDT Automated LAB Interface Historical Provider LAB BLOOD ORDERABLES Final R esult Performing Organization Address [facility]/[place] de Phone Number EXTERNAL LAB * OTTR LAB RESULTS (MANUAL) (07/09/2019 3:30 PM EDT) External Estimated GFR 222.64 EXTERNAL LAB 07/09/2019 3:30 PM EDT Narrative EXTERNAL LAB - 07/09/2019 4:10 PM EDT Automated LAB Interface Historical Provider LAB BLOOD ORDERABLES Final R esult Performing Organization Address [facility] de Phone Number EXTERNAL LAB * OTTR LAB RESULTS (MANUAL) (07/09/2019 4:06 AM EDT) External Estimated GFR 228.77 EXTERNAL LAB 07/09/2019 4:06 AM EDT Narrative EXTERNAL LAB - 07/09/2019 4:46 AM EDT Automated LAB Interface Historical Provider LAB BLOOD ORDERABLES Final R esult Performing Organization Address [facility]/[place] de Phone Number EXTERNAL LAB * OTTR LAB RESULTS (MANUAL) (07/08/2019 4:11 PM EDT) External Estimated GFR 228.77 EXTERNAL LAB 07/08/2019 4:11 PM EDT Narrative EXTERNAL LAB - 07/08/2019 4:39 PM EDT Automated LAB Interface Historical Provider LAB BLOOD ORDERABLES Final R esult Performing Organization Address [facility]/ZIP Co de Phone Number EXTERNAL LAB * OTTR LAB RESULTS (MANUAL) (07/08/2019 4:11 AM EDT) External Estimated GFR 273.31 EXTERNAL LAB 07/08/2019 4:11 AM EDT Narrative EXTERNAL LAB - 07/08/2019 5:04 AM EDT Automated LAB Interface us Historical Provider LAB BLOOD ORDERABLES Final R esult Performing Organization Address City/[facility] Co de Phone Number EXTERNAL LAB * OTTR LAB RESULTS (MANUAL) (07/07/2019 3:25 PM EDT) External Estimated GFR 324.78 EXTERNAL LAB 07/07/2019 3:25 PM EDT Narrative EXTERNAL LAB - 07/07/2019 4:30 PM EDT Automated LAB Interface us Historical Provider LAB BLOOD ORDERABLES Final R esult Performing Organization Address [facility]/[place] de Phone Number EXTERNAL LAB * OTTR LAB RESULTS (MANUAL) (07/07/2019 2:04 AM EDT) External Estimated GFR 273.31 EXTERNAL LAB 07/07/2019 2:04 AM EDT Narrative EXTERNAL LAB - 07/07/2019 2:38 AM EDT Automated LAB Interface us Historical Provider LAB BLOOD ORDERABLES Final R esult Performing Organization Address [facility] Co de Phone Number EXTERNAL LAB * OTTR LAB RESULTS (MANUAL) (07/06/2019 9:56 PM EDT) External Estimated GFR 302.17 EXTERNAL LAB 07/06/2019 9:56 PM EDT Narrative EXTERNAL LAB - 07/06/2019 10:35 PM EDT Automated LAB Interface us Historical Provider LAB BLOOD ORDERABLES Final R esult Performing Organization Address City/[facility]/ZIP Co de Phone Number EXTERNAL LAB * OTTR LAB RESULTS (MANUAL) (07/06/2019 2:08 AM EDT) External Estimated GFR 302.17 EXTERNAL LAB 07/06/2019 2:08 AM EDT Narrative EXTERNAL LAB - 07/06/2019 7:31 AM EDT Automated LAB Interface Historical Provider LAB BLOOD ORDERABLES Final R esult Performing Organization Address [facility]/[place] de Phone Number EXTERNAL LAB * OTTR LAB RESULTS (MANUAL) (07/05/2019 8:40 PM EDT) Pathologist [facility] External Estimated GFR 324.78 EXTERNAL LAB 07/05/2019 8:40 PM EDT Narrative EXTERNAL LAB - 07/05/2019 9:15 PM EDT Automated LAB Interface Historical Provider LAB BLOOD ORDERABLES Final R esult Performing Organization Address [facility]/[place] de Phone Number EXTERNAL LAB * OTTR LAB RESULTS (MANUAL) (07/05/2019 12:25 PM EDT) Pathologist [facility] External Estimated GFR 264.80 EXTERNAL LAB 07/05/2019 12:2 5 PM EDT Narrative EXTERNAL LAB - 07/05/2019 1:07 PM EDT Automated LAB Interface Historical Provider LAB BLOOD ORDERABLES Final R esult Performing Organization Address [facility]/[place] de Phone Number EXTERNAL LAB * OTTR LAB RESULTS (MANUAL) (07/05/2019 2:44 AM EDT) Pathologist [facility] External Estimated GFR 337.31 EXTERNAL LAB 07/05/2019 2:44 AM EDT Narrative EXTERNAL LAB - 07/05/2019 3:33 AM EDT Automated LAB Interface Historical Provider LAB BLOOD ORDERABLES Final R esult Performing Organization Address [facility]/[place] de Phone Number EXTERNAL LAB * OTTR LAB RESULTS (MANUAL) (07/04/2019 4:08 PM EDT) Pathologist [facility] External Estimated GFR 324.78 EXTERNAL LAB 07/04/2019 4:08 PM EDT Narrative EXTERNAL LAB - 07/04/2019 4:41 PM EDT Automated LAB Interface Historical Provider LAB BLOOD ORDERABLES Final R esult Performing Organization Address [facility]/[place] de Phone Number EXTERNAL LAB * OTTR LAB RESULTS (MANUAL) (07/04/2019 3:07 AM EDT) External Estimated GFR 313.10 EXTERNAL LAB 07/04/2019 3:07 AM EDT Narrative EXTERNAL LAB - 07/04/2019 6:46 AM EDT Automated LAB Interface Historical Provider LAB BLOOD ORDERABLES Final R esult Performing Organization Address [facility]/[place] de Phone Number EXTERNAL LAB * OTTR LAB RESULTS (MANUAL) (07/03/2019 11:53 PM EDT) External Estimated GFR 302.17 EXTERNAL LAB 07/03/2019 11:5 3 PM EDT Narrative EXTERNAL LAB - 07/04/2019 12:30 AM EDT Automated LAB Interface Historical Provider LAB BLOOD ORDERABLES Final R esult Performing Organization Address [facility]/[place] de Phone Number EXTERNAL LAB * OTTR LAB RESULTS (MANUAL) (07/03/2019 4:42 PM EDT) External Estimated GFR 324.78 EXTERNAL LAB 07/03/2019 4:42 PM EDT Narrative EXTERNAL LAB - 07/03/2019 5:19 PM EDT Automated LAB Interface Historical Provider LAB BLOOD ORDERABLES Final R esult Performing Organization Address [facility] Co de Phone Number EXTERNAL LAB * OTTR LAB RESULTS (MANUAL) (07/03/2019 2:17 AM EDT) External Estimated GFR 482.47 EXTERNAL LAB 07/03/2019 2:17 AM EDT Narrative EXTERNAL LAB - 07/03/2019 3:02 AM EDT Automated LAB Interface Historical Provider LAB BLOOD ORDERABLES Final R esult Performing Organization Address [place]/[facility]/[place] de Phone Number EXTERNAL LAB * OTTR LAB RESULTS (MANUAL) (07/02/2019 2:31 AM EDT) External Estimated GFR 249.19 EXTERNAL LAB 07/02/2019 2:31 AM EDT Narrative EXTERNAL LAB - 07/02/2019 4:08 AM EDT Automated LAB Interface Historical Provider LAB BLOOD ORDERABLES Final R esult Performing Organization Address [facility]/[place] de Phone Number EXTERNAL LAB * OTTR LAB RESULTS (MANUAL) (07/01/2019 3:10 PM EDT) External Estimated GFR 291.94 EXTERNAL LAB 07/01/2019 3:10 PM EDT Narrative EXTERNAL LAB - 07/01/2019 3:47 PM EDT Automated LAB Interface Historical Provider LAB BLOOD ORDERABLES Final R esult Performing Organization Address [facility]/[place] de Phone Number EXTERNAL LAB * OTTR LAB RESULTS (MANUAL) (07/01/2019 1:57 AM EDT) External Estimated GFR 200.92 EXTERNAL LAB 07/01/2019 1:57 AM EDT Narrative EXTERNAL LAB - 07/01/2019 3:06 AM EDT Automated LAB Interface Historical Provider LAB BLOOD ORDERABLES Final R esult Performing Organization Address [facility]/[place] de Phone Number EXTERNAL LAB * OTTR LAB RESULTS (MANUAL) (06/30/2019 3:28 PM EDT) External Estimated GFR 249.19 EXTERNAL LAB 06/30/2019 3:28 PM EDT Narrative EXTERNAL LAB - 06/30/2019 4:03 PM EDT Automated LAB Interface Historical Provider LAB BLOOD ORDERABLES Final R esult Performing Organization Address [place]/[facility]/ZIP Co de Phone Number EXTERNAL LAB * OTTR LAB RESULTS (MANUAL) (06/30/2019 2:34 AM EDT) External Estimated GFR 302.17 EXTERNAL LAB 06/30/2019 2:34 AM EDT Narrative EXTERNAL LAB - 06/30/2019 3:20 AM EDT Automated LAB Interface us Historical Provider LAB BLOOD ORDERABLES Final R esult Performing Organization Address [facility] de Phone Number EXTERNAL LAB * OTTR LAB RESULTS (MANUAL) (06/29/2019 1:34 PM EDT) External Estimated GFR 256.77 EXTERNAL LAB 06/29/2019 1:34 PM EDT Narrative EXTERNAL LAB - 06/29/2019 2:50 PM EDT Automated LAB Interface us Historical Provider LAB BLOOD ORDERABLES Final R esult Performing Organization Address [facility] de Phone Number EXTERNAL LAB * OTTR LAB RESULTS (MANUAL) (06/29/2019 3:33 AM EDT) External Estimated GFR 256.77 EXTERNAL LAB 06/29/2019 3:33 AM EDT Narrative EXTERNAL LAB - 06/29/2019 4:27 AM EDT Automated LAB Interface us Historical Provider LAB BLOOD ORDERABLES Final R esult Performing Organization Address [facility]/[place] de Phone Number EXTERNAL LAB * OTTR LAB RESULTS (MANUAL) (06/28/2019 4:27 PM EDT) External Estimated GFR 235.22 EXTERNAL LAB 06/28/2019 4:27 PM EDT Narrative EXTERNAL LAB - 06/28/2019 4:58 PM EDT Automated LAB Interface us Historical Provider LAB BLOOD ORDERABLES Final R esult Performing Organization Address [facility] Co de Phone Number EXTERNAL LAB * OTTR LAB RESULTS (MANUAL) (06/28/2019 3:42 AM EDT) External Estimated GFR 273.31 EXTERNAL LAB 06/28/2019 3:42 AM EDT Narrative EXTERNAL LAB - 06/28/2019 6:32 AM EDT Automated LAB Interface Historical Provider LAB BLOOD ORDERABLES Final R esult EXTERNAL LAB * OTTR LAB RESULTS (MANUAL) (06/27/2019 4:13 PM EDT) External Estimated GFR 222.64 EXTERNAL LAB 06/27/2019 4:13 PM EDT Narrative EXTERNAL LAB - 06/27/2019 4:50 PM EDT Automated LAB Interface Historical Provider LAB BLOOD ORDERABLES Final R esult Performing Organization Address City/[facility]/ZIP Co de Phone Number EXTERNAL LAB * OTTR LAB RESULTS (MANUAL) (06/27/2019 9:47 AM EDT) Pathologist [facility] External Estimated GFR 216.81 EXTERNAL LAB 06/27/2019 9:47 AM EDT Narrative EXTERNAL LAB - 06/27/2019 10:25 AM EDT Automated LAB Interface Historical Provider LAB BLOOD ORDERABLES Final R esult Performing Organization Address [facility]/ZIP Co de Phone Number EXTERNAL LAB * OTTR LAB RESULTS (MANUAL) (06/27/2019 4:04 AM EDT) External Estimated GFR 222.64 EXTERNAL LAB 06/27/2019 4:04 AM EDT Narrative EXTERNAL LAB - 06/27/2019 4:55 AM EDT Automated LAB Interface Historical Provider LAB BLOOD ORDERABLES Final R esult EXTERNAL LAB * OTTR LAB RESULTS (MANUAL) (06/26/2019 5:02 PM EDT) External Estimated GFR 211.26 EXTERNAL LAB 06/26/2019 5:02 PM EDT Narrative EXTERNAL LAB - 06/26/2019 5:45 PM EDT Automated LAB Interface Historical Provider LAB BLOOD ORDERABLES Final R esult Performing Organization Address [facility]/[place] de Phone Number EXTERNAL LAB * OTTR LAB RESULTS (MANUAL) (06/26/2019 11:00 AM EDT) External Estimated GFR 211.26 EXTERNAL LAB 06/26/2019 11:0 0 AM EDT Narrative EXTERNAL LAB - 06/26/2019 12:05 PM EDT Automated LAB Interface Historical Provider LAB BLOOD ORDERABLES Final R esult Performing Organization Address [facility]/[place] de Phone Number EXTERNAL LAB * OTTR LAB RESULTS (MANUAL) (06/26/2019 3:58 AM EDT) External Estimated GFR 228.77 EXTERNAL LAB 06/26/2019 3:58 AM EDT Narrative EXTERNAL LAB - 06/26/2019 5:44 AM EDT Automated LAB Interface Historical Provider LAB BLOOD ORDERABLES Final R esult Performing Organization Address [facility]/[place] de Phone Number EXTERNAL LAB * OTTR LAB RESULTS (MANUAL) (06/25/2019 3:46 PM EDT) External Estimated GFR 222.64 EXTERNAL LAB 06/25/2019 3:46 PM EDT Narrative EXTERNAL LAB - 06/25/2019 4:23 PM EDT Automated LAB Interface Historical Provider LAB BLOOD ORDERABLES Final R esult Performing Organization Address [facility]/ZIP Co de Phone Number EXTERNAL LAB * OTTR LAB RESULTS (MANUAL) (06/25/2019 4:04 AM EDT) External Estimated GFR 235.22 EXTERNAL LAB 06/25/2019 4:04 AM EDT Narrative EXTERNAL LAB - 06/25/2019 4:57 AM EDT Automated LAB Interface Historical Provider LAB BLOOD ORDERABLES Final R esult Performing Organization Address [facility]/[place] de Phone Number EXTERNAL LAB * OTTR LAB RESULTS (MANUAL) (06/23/2019 11:46 AM EDT) External Estimated GFR 133.45 EXTERNAL LAB 06/23/2019 11:4 6 AM EDT Narrative EXTERNAL LAB - 06/23/2019 1:33 PM EDT Automated LAB Interface Historical Provider LAB BLOOD ORDERABLES Final R esult Performing Organization Address [facility]/[place] de Phone Number EXTERNAL LAB * OTTR LAB RESULTS (MANUAL) (06/23/2019 2:22 AM EDT) External Estimated GFR 143.28 EXTERNAL LAB 06/23/2019 2:22 AM EDT Narrative EXTERNAL LAB - 06/23/2019 6:36 AM EDT Automated LAB Interface Historical Provider LAB BLOOD ORDERABLES Final R esult Performing Organization Address [facility] de Phone Number EXTERNAL LAB * OTTR LAB RESULTS (MANUAL) (06/21/2019 2:39 AM EDT) External Estimated GFR 160.82 EXTERNAL LAB 06/21/2019 2:39 AM EDT Narrative EXTERNAL LAB - 06/21/2019 3:27 AM EDT Automated LAB Interface Historical Provider LAB BLOOD ORDERABLES Final R esult Performing Organization Address [facility] Co de Phone Number EXTERNAL LAB * OTTR LAB RESULTS (MANUAL) (06/20/2019 2:34 PM EDT) External Estimated GFR 154.55 EXTERNAL LAB 06/20/2019 2:34 PM EDT Narrative EXTERNAL LAB - 06/20/2019 3:11 PM EDT Automated LAB Interface Historical Provider LAB BLOOD ORDERABLES Final R esult Performing Organization Address [facility]/[place] de Phone Number EXTERNAL LAB * OTTR LAB RESULTS (MANUAL) (06/20/2019 5:50 AM EDT) External Estimated GFR 178.79 EXTERNAL LAB 06/20/2019 5:50 AM EDT Narrative EXTERNAL LAB - 06/20/2019 6:52 AM EDT Automated LAB Interface Historical Provider LAB BLOOD ORDERABLES Final R esult Performing Organization Address [facility] de Phone Number EXTERNAL LAB * OTTR LAB RESULTS (MANUAL) (06/20/2019 2:13 AM EDT) External Estimated GFR 164.14 EXTERNAL LAB 06/20/2019 2:13 AM EDT Narrative EXTERNAL LAB - 06/20/2019 6:50 AM EDT Automated LAB Interface Historical Provider LAB BLOOD ORDERABLES Final R esult Performing Organization Address [facility] de Phone Number EXTERNAL LAB * OTTR LAB RESULTS (MANUAL) (06/19/2019 9:09 PM EDT) External Estimated GFR 191.49 EXTERNAL LAB 06/19/2019 9:09 PM EDT Narrative EXTERNAL LAB - 06/19/2019 11:38 PM EDT Automated LAB Interface Historical Provider LAB BLOOD ORDERABLES Final R esult Performing Organization Address [facility]/[place] de Phone Number EXTERNAL LAB * OTTR LAB RESULTS (MANUAL) (06/19/2019 1:34 PM EDT) External Estimated GFR 157.63 EXTERNAL LAB 06/19/2019 1:34 PM EDT Narrative EXTERNAL LAB - 06/19/2019 2:13 PM EDT Automated LAB Interface Historical Provider LAB BLOOD ORDERABLES Final R esult Performing Organization Address [facility] Co de Phone Number EXTERNAL LAB * OTTR LAB RESULTS (MANUAL) (06/19/2019 2:06 AM EDT) External Estimated GFR 133.45 EXTERNAL LAB 06/19/2019 2:06 AM EDT Narrative EXTERNAL LAB - 06/19/2019 6:36 AM EDT Automated LAB Interface Historical Provider LAB BLOOD ORDERABLES Final R esult Performing Organization Address [place]/[facility] Co de Phone Number EXTERNAL LAB * OTTR LAB RESULTS (MANUAL) (06/18/2019 3:40 PM EDT) External Estimated GFR 104.23 EXTERNAL LAB 06/18/2019 3:40 PM EDT Narrative EXTERNAL LAB - 06/18/2019 5:38 PM EDT Automated LAB Interface Historical Provider LAB BLOOD ORDERABLES Final R esult Performing Organization Address [facility] Co de Phone Number EXTERNAL LAB * OTTR LAB RESULTS (MANUAL) (06/18/2019 4:36 AM EDT) External Estimated GFR 55.64 EXTERNAL LAB 06/18/2019 4:36 AM EDT Narrative EXTERNAL LAB - 06/24/2019 5:14 PM EDT Automated LAB Interface Historical Provider LAB BLOOD ORDERABLES Final R esult Performing Organization Address [facility] Co de Phone Number EXTERNAL LAB * OTTR LAB RESULTS (MANUAL) (06/17/2019 1:44 AM EDT) External Estimated GFR 117.17 EXTERNAL LAB 06/17/2019 1:44 AM EDT Narrative EXTERNAL LAB - 06/17/2019 6:27 AM EDT Automated LAB Interface Historical Provider LAB BLOOD ORDERABLES Final R esult Performing Organization Address [facility]/ZIP Co de Phone Number EXTERNAL LAB * OTTR LAB RESULTS (MANUAL) (06/16/2019 5:54 PM EDT) External Estimated GFR 122.82 EXTERNAL LAB 06/16/2019 5:54 PM EDT Narrative EXTERNAL LAB - 06/16/2019 6:31 PM EDT Automated LAB Interface Historical Provider LAB BLOOD ORDERABLES Final R esult Performing Organization Address [facility] Co de Phone Number EXTERNAL LAB * OTTR LAB RESULTS (MANUAL) (06/16/2019 11:39 AM EDT) External Estimated GFR 131.19 EXTERNAL LAB 06/16/2019 11:3 9 AM EDT Narrative EXTERNAL LAB - 06/16/2019 12:17 PM EDT Automated LAB Interface Historical Provider LAB BLOOD ORDERABLES Final R esult Performing Organization Address [facility]/[place] de Phone Number EXTERNAL LAB * OTTR LAB RESULTS (MANUAL) (06/15/2019 11:52 AM EDT) External Estimated GFR 131.19 EXTERNAL LAB 06/15/2019 11:5 2 AM EDT Narrative EXTERNAL LAB - 06/15/2019 12:34 PM EDT Automated LAB Interface Historical Provider LAB BLOOD ORDERABLES Final R esult Performing Organization Address [facility]/[place] de Phone Number EXTERNAL LAB * OTTR LAB RESULTS (MANUAL) (06/15/2019 3:57 AM EDT) External Estimated GFR 138.20 EXTERNAL LAB 06/15/2019 3:57 AM EDT Narrative EXTERNAL LAB - 06/15/2019 6:04 AM EDT Automated LAB Interface Historical Provider LAB BLOOD ORDERABLES Final R esult Performing Organization Address [place]/[facility]/ZIP Co de Phone Number EXTERNAL LAB * OTTR LAB RESULTS (MANUAL) (06/15/2019 12:00 AM EDT) External Estimated GFR 138.20 EXTERNAL LAB 06/15/2019 Narrative EXTERNAL LAB - 06/15/2019 12:47 AM EDT Automated LAB Interface us Historical Provider LAB BLOOD ORDERABLES Final R esult EXTERNAL LAB * OTTR LAB RESULTS (MANUAL) (06/14/2019 3:50 PM EDT) External Estimated GFR 122.82 EXTERNAL LAB 06/14/2019 3:50 PM EDT Narrative EXTERNAL LAB - 06/14/2019 4:19 PM EDT Automated LAB Interface us Historical Provider LAB BLOOD ORDERABLES Final R esult Performing Organization Address [place]/[facility]/ZIP Co de Phone Number EXTERNAL LAB * OTTR LAB RESULTS (MANUAL) (06/14/2019 3:51 AM EDT) External Estimated GFR 126.88 EXTERNAL LAB 06/14/2019 3:51 AM EDT Narrative EXTERNAL LAB - 06/14/2019 4:53 AM EDT Automated LAB Interface us Historical Provider LAB BLOOD ORDERABLES Final R esult Performing Organization Address [place]/[facility]/ZIP Co de Phone Number EXTERNAL LAB * OTTR LAB RESULTS (MANUAL) (06/13/2019 10:02 PM EDT) External Estimated GFR 118.99 EXTERNAL LAB 06/13/2019 10:0 2 PM EDT Narrative EXTERNAL LAB - 06/13/2019 10:47 PM EDT Automated LAB Interface us Historical Provider LAB BLOOD ORDERABLES Final R esult EXTERNAL LAB * OTTR LAB RESULTS (MANUAL) (06/13/2019 6:29 PM EDT) External Estimated GFR 117.17 EXTERNAL LAB 06/13/2019 6:29 PM EDT Narrative EXTERNAL LAB - 06/13/2019 7:10 PM EDT Automated LAB Interface Historical Provider LAB BLOOD ORDERABLES Final R esult Performing Organization Address [facility] de Phone Number EXTERNAL LAB * OTTR LAB RESULTS (MANUAL) (06/13/2019 11:44 AM EDT) External Estimated GFR 107.21 EXTERNAL LAB 06/13/2019 11:4 4 AM EDT Narrative EXTERNAL LAB - 06/13/2019 12:32 PM EDT Automated LAB Interface Historical Provider LAB BLOOD ORDERABLES Final R esult Performing Organization Address [facility] de Phone Number EXTERNAL LAB * OTTR LAB RESULTS (MANUAL) (06/13/2019 2:14 AM EDT) External Estimated GFR 115.39 EXTERNAL LAB 06/13/2019 2:14 AM EDT Narrative EXTERNAL LAB - 06/13/2019 7:22 AM EDT Automated LAB Interface Historical Provider LAB BLOOD ORDERABLES Final R esult Performing Organization Address [facility] de Phone Number EXTERNAL LAB * OTTR LAB RESULTS (MANUAL) (06/12/2019 6:45 PM EDT) External Estimated GFR 145.95 EXTERNAL LAB 06/12/2019 6:45 PM EDT Narrative EXTERNAL LAB - 06/12/2019 7:17 PM EDT Automated LAB Interface us Historical Provider LAB BLOOD ORDERABLES Final R esult Performing Organization Address [facility] de Phone Number EXTERNAL LAB * OTTR LAB RESULTS (MANUAL) (06/12/2019 9:27 AM EDT) External Estimated GFR 120.88 EXTERNAL LAB 06/12/2019 9:27 AM EDT Narrative EXTERNAL LAB - 06/12/2019 12:55 PM EDT Automated LAB Interface Historical Provider LAB BLOOD ORDERABLES Final R esult Performing Organization Address [facility]/[place] de Phone Number EXTERNAL LAB * OTTR LAB RESULTS (MANUAL) (06/12/2019 3:01 AM EDT) External Estimated GFR 104.23 EXTERNAL LAB 06/12/2019 3:0 1 AM EDT Narrative EXTERNAL LAB - 06/12/2019 12:55 PM EDT Automated LAB Interface Historical Provider LAB BLOOD ORDERABLES Final R esult Performing Organization Address [facility]/[place] de Phone Number EXTERNAL LAB * OTTR LAB RESULTS (MANUAL) (06/11/2019 2:56 AM EDT) External Estimated GFR 118.99 EXTERNAL LAB 06/11/2019 2:56 AM EDT Narrative EXTERNAL LAB - 06/11/2019 4:06 AM EDT Automated LAB Interface Historical Provider LAB BLOOD ORDERABLES Final R esult Performing Organization Address [facility]/[place] de Phone Number EXTERNAL LAB * OTTR LAB RESULTS (MANUAL) (06/10/2019 2:52 AM EDT) External Estimated GFR 115.39 EXTERNAL LAB 06/10/2019 2:52 AM EDT Narrative EXTERNAL LAB - 06/10/2019 6:50 AM EDT Automated LAB Interface Historical Provider LAB BLOOD ORDERABLES Final R esult Performing Organization Address [facility]/[place] de Phone Number EXTERNAL LAB * OTTR LAB RESULTS (MANUAL) (06/09/2019 12:12 PM EDT) External Estimated GFR 93.73 EXTERNAL LAB 06/09/2019 12:1 2 PM EDT Narrative EXTERNAL LAB - 06/09/2019 1:36 PM EDT Automated LAB Interface Historical Provider LAB BLOOD ORDERABLES Final R esult Performing Organization Address [facility]/[place] de Phone Number EXTERNAL LAB * OTTR LAB RESULTS (MANUAL) (06/09/2019 2:19 AM EDT) External Estimated GFR 98.72 EXTERNAL LAB 06/09/2019 2:19 AM EDT Narrative EXTERNAL LAB - 06/09/2019 6:19 AM EDT Automated LAB Interface Historical Provider LAB BLOOD ORDERABLES Final R esult Performing Organization Address [facility]/[place] de Phone Number EXTERNAL LAB * OTTR LAB RESULTS (MANUAL) (06/08/2019 3:20 PM EDT) External Estimated GFR 102.80 EXTERNAL LAB 06/08/2019 3:20 PM EDT Narrative EXTERNAL LAB - 06/08/2019 4:06 PM EDT Automated LAB Interface Historical Provider LAB BLOOD [facility]ABLES [facility] Per[facility] Organization Address [facility]/[place] de Phone Number EXTERNAL LAB * OTTR LAB RESULTS (MANUAL) (06/08/2019 12:35 PM EDT) Pathologist [facility] External Estimated GFR 105.70 EXTERNAL LAB 06/08/2019 12:3 5 PM EDT Narrative EXTERNAL LAB - 06/08/2019 1:51 PM EDT Automated LAB Interface Historical Provider LAB BLOOD ORDERABLES Final R esult Performing Organization Address [facility] de Phone Number EXTERNAL LAB * OTTR LAB RESULTS (MANUAL) (06/08/2019 10:28 AM EDT) External Estimated GFR 122.82 EXTERNAL LAB 06/08/2019 10:2 8 AM EDT Narrative EXTERNAL LAB - 06/08/2019 2:31 PM EDT Automated LAB Interface Historical Provider LAB BLOOD ORDERABLES Final R esult Performing Organization Address [facility]/[place] de Phone Number EXTERNAL LAB * OTTR LAB RESULTS (MANUAL) (06/08/2019 8:04 AM EDT) External Estimated GFR 93.73 EXTERNAL LAB 06/08/2019 8:04 AM EDT Narrative EXTERNAL LAB - 06/08/2019 8:51 AM EDT Automated LAB Interface us Historical Provider LAB BLOOD ORDERABLES Final R esult Performing Organization Address [facility] Co de Phone Number EXTERNAL LAB * OTTR LAB RESULTS (MANUAL) (06/08/2019 6:23 AM EDT) External Estimated GFR 92.56 EXTERNAL LAB 06/08/2019 6:23 AM EDT Narrative EXTERNAL LAB - 06/08/2019 7:15 AM EDT Automated LAB Interface us Historical Provider LAB BLOOD ORDERABLES Final R esult Performing Organization Address [facility]/[place] de Phone Number EXTERNAL LAB * OTTR LAB RESULTS (MANUAL) (06/08/2019 2:56 AM EDT) External Estimated GFR 104.23 EXTERNAL LAB 06/08/2019 2:56 AM EDT Narrative EXTERNAL LAB - 06/08/2019 3:42 AM EDT Automated LAB Interface us Historical Provider LAB BLOOD ORDERABLES Final R esult Performing Organization Address [facility]/[place] de Phone Number EXTERNAL LAB * OTTR LAB RESULTS (MANUAL) (06/07/2019 10:55 PM EDT) External Estimated GFR 97.43 EXTERNAL LAB 06/07/2019 10:5 5 PM EDT Narrative EXTERNAL LAB - 06/08/2019 12:35 AM EDT Automated LAB Interface us Historical Provider LAB BLOOD ORDERABLES Final R esult Performing Organization Address City/[facility]/ZIP Co de Phone Number EXTERNAL LAB * OTTR LAB RESULTS (MANUAL) (06/07/2019 5:25 PM EDT) External Estimated GFR 76.92 EXTERNAL LAB 06/07/2019 5:25 PM EDT Narrative EXTERNAL LAB - 06/07/2019 6:51 PM EDT Automated LAB Interface Historical Provider LAB BLOOD ORDERABLES Final R esult Performing Organization Address [facility]/[place] de Phone Number EXTERNAL LAB * OTTR LAB RESULTS (MANUAL) (06/07/2019 12:22 PM EDT) Pathologist [facility] External Estimated GFR 102.80 EXTERNAL LAB 06/07/2019 12:2 2 PM EDT Narrative EXTERNAL LAB - 06/07/2019 2:13 PM EDT Automated LAB Interface Historical Provider LAB BLOOD ORDERABLES Final R esult Performing Organization Address [facility] de Phone Number EXTERNAL LAB * OTTR LAB RESULTS (MANUAL) (06/07/2019 4:53 AM EDT) Pathologist [facility] External Estimated GFR 96.17 EXTERNAL LAB 06/07/2019 4:53 AM EDT Narrative EXTERNAL LAB - 06/07/2019 5:48 AM EDT Automated LAB Interface Historical Provider LAB BLOOD ORDERABLES Final R esult Performing Organization Address [facility] de Phone Number EXTERNAL LAB * OTTR LAB RESULTS (MANUAL) (06/07/2019 3:04 AM EDT) Pathologist [facility] External Estimated GFR 167.59 EXTERNAL LAB 06/07/2019 3:04 AM EDT Narrative EXTERNAL LAB - 06/07/2019 6:39 AM EDT Automated LAB Interface Historical Provider LAB BLOOD ORDERABLES Final R esult Performing Organization Address [facility] de Phone Number EXTERNAL LAB * OTTR LAB RESULTS (MANUAL) (06/06/2019 2:22 PM EDT) Pathologist [facility] External Estimated GFR 88.12 EXTERNAL LAB 06/06/2019 2:22 PM EDT Narrative EXTERNAL LAB - 06/06/2019 3:13 PM EDT Automated LAB Interface Historical Provider LAB BLOOD ORDERABLES Final R esult Performing Organization Address [facility]/State/[facility] Co de Phone Number EXTERNAL LAB * OTTR LAB RESULTS (MANUAL) (06/06/2019 1:30 AM EDT) External Estimated GFR 110.35 EXTERNAL LAB 06/06/2019 1:30 AM EDT Narrative EXTERNAL LAB - 06/06/2019 2:16 AM EDT Automated LAB Interface us Historical Provider LAB BLOOD ORDERABLES Final R esult Performing Organization Address [facility]/[place] de Phone Number EXTERNAL LAB * OTTR LAB RESULTS (MANUAL) (06/05/2019 10:12 AM EDT) External Estimated GFR 100.05 EXTERNAL LAB 06/05/2019 10:1 2 AM EDT Narrative EXTERNAL LAB - 06/05/2019 11:27 AM EDT Automated LAB Interface us Historical Provider LAB BLOOD ORDERABLES Final R esult Performing Organization Address [facility]/[place] de Phone Number EXTERNAL LAB * OTTR LAB RESULTS (MANUAL) (05/17/2019 2:05 AM EDT) External Estimated GFR 105.70 EXTERNAL LAB 05/17/2019 2:05 AM EDT Narrative EXTERNAL LAB - 05/17/2019 3:01 AM EDT Automated LAB Interface us Historical Provider LAB BLOOD ORDERABLES Final R esult Performing Organization Address [facility]/[place] de Phone Number EXTERNAL LAB * OTTR LAB RESULTS (MANUAL) (05/16/2019 9:46 AM EDT) External Estimated GFR 80.35 EXTERNAL LAB 05/16/2019 9:46 AM EDT Narrative EXTERNAL LAB - 05/16/2019 10:25 AM EDT Automated LAB Interface us Historical Provider LAB BLOOD ORDERABLES Final R esult EXTERNAL LAB * OTTR LAB RESULTS (MANUAL) (05/16/2019 4:52 AM EDT) External Estimated GFR 93.73 EXTERNAL LAB 05/16/2019 4:52 AM EDT Narrative EXTERNAL LAB - 05/16/2019 5:38 AM EDT Automated LAB Interface Historical Provider LAB BLOOD ORDERABLES Final R esult Performing Organization Address City/[facility] Co de Phone Number EXTERNAL LAB * OTTR LAB RESULTS (MANUAL) (05/16/2019 1:24 AM EDT) External Estimated GFR 74.53 EXTERNAL LAB 05/16/2019 1:24 AM EDT Narrative EXTERNAL LAB - 05/16/2019 2:12 AM EDT Automated LAB Interface Historical Provider LAB BLOOD ORDERABLES Final R esult Performing Organization Address [facility]/[place] de Phone Number EXTERNAL LAB * OTTR LAB RESULTS (MANUAL) (05/15/2019 7:23 PM EDT) Pathologist [facility] External Estimated GFR 75.31 EXTERNAL LAB 05/15/2019 7:23 PM EDT Narrative EXTERNAL LAB - 05/15/2019 8:50 PM EDT Automated LAB Interface Historical Provider LAB BLOOD ORDERABLES Final R esult Performing Organization Address City/[facility]/[place] de Phone Number EXTERNAL LAB documented in this encounter Visit Diagnoses Not on filedocumented in this encounter Additional Health Concerns Infection Onset 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 MDRO Escalation Plan Comment:MDRO escalation plan through 05/06/24 04/15/2024 04/15/2024 04/20/2024 5:[address] documented as of this encounter Care Teams Information Services Consultant Relationship Specialty Start Date End Date Herberth Perez MD [address] [place] [address] [place] [address] PCP - General 07/17/20 Katrin Oviedo, RN [facility] [address] [place] [address] [phone] VAD Coordinator Cardiology 08/06/20 10/21/24 Zaida Lafleur APRN [address] [place] [phone] Nurse Practitioner Advanced Heart Failure and Transplant Cardiology 08/06/20 06/11/23 Gracia Petersen [place] [phone] Nurse Practitioner Internal Medicine 08/06/20 Yunior Solorzano MD [address] [phone] Consulting Physician Gastroenterology 07/18/22 Ross Baez, [address] [place] [phone] Surgeon Cardiothoracic Surgery 07/18/22 Edith Aleman, NURSE EXAMINER VAD Coordinator 10/14/24 documented as of this encounter
--- OUTSIDE RECORDS SUMMARY | 2025-01-08 15:10 | XMS_ITS | Encounter Summary ---
Author Organization [employer] ([place], [place], [place], [place], [place]) Address [address] [place] [address] Care Team Providers Care Tunnel Kiln Repairer Name Role Phone Unavailable Primary Care Provider Unavailabl e Encounter Details Date Type Department Care Team (Late st Contact Info) Description 04/12/2019 Transcribed Document [facility] [place] [facility] [place] [address] ProviderMg MD [facility] [place] [address] Social History Tobacco Use Types Packs/Day Years Used Date Smoking Tobacco: Never Assessed Sex and Gender Information Value Date Recorded Sex Assigned at Not on file Legal Sex Male 1:09 PM CDT Gender Identity Not on file Sexual Orientation Not on file documented as of this encounter Miscellaneous Notes * [employer]ner Conversion Note - Mg Ritchie MD - 04/12/2019 10:52 PM DIAMOND MOUNTER Event Note Entered On: 04/12/2019 23:02 EST Performed On: 04/12/2019 22:52 EST by Duncan Rudolph Rn-Resource Event Note Event Date/Time : 04/12/2019 21:00 EST Event Location : Assigned room Event Details : Change in condition Description of Event : Patient HR 112 on Milrinone drip at 0.375 mcg/kg/min. Patient is asymptomatic resting in bed while heart rate is in 120's. Angela RN (morning nurse) stated that patient went on Vtach this morning and asymptomatic. Angela and this nurse spoke to Dr. Muñoz and he is aware. Physician stated that it is ok to cut the dose in half if elevated heart rate persist and patient become symptomatic. Duncan Rudolph Rn-Resource - 04/12/2019 22:52 EST Electronically signed by [facility] Conversion Superintendent Stevedoring Cerner at 06/19/2022 11:04 PM CDT documented in this encounter Plan of Treatment Not on file documented as of this encounter Visit Diagnoses Not on filedocumented in this encounter
--- OUTSIDE RECORDS SUMMARY | 2025-01-08 15:10 | XMS_ITS | Encounter Summary ---
Author Organization [employer] ([place], [place], [place], [place], [place]) Address [address] [place] [address] Care Team Providers Care Pathology Technician Name Role Phone Unavailable Primary Care Provider Unavailabl e Encounter Details Date Type Department Care Team (Late st Contact Info) Description 2019 Transcribed Document [facility] [place] [facility] [place] [address] ProviderMg MD [facility] [place] [address] Social History Tobacco Use Types Packs/Day Years Used Date Smoking Tobacco: Never Assessed Sex and Gender Information Value Date Recorded Sex Assigned at Not on file Legal Sex Male 1:09 PM CDT Gender Identity Not on file Sexual Orientation Not on file documented as of this encounter Miscellaneous Notes * Cerner Conversion Note - Mg Ritchie MD - 2019 8:53 PM TOOL SUPERVISOR [place] [phone] JOSE PEARSON :1970 Visit Time:05/03/2019 Your Visit [...] appoint/instructions Where: [address] [place] [address]- Business (1) Follow Up with [facility] When Within 1 week Comments Office to call with appoint/instructions Where: [address] [place] [address]- Business (1) Medications What How Much When Instructions Next Dose bumetanide (bumetanide 2 mg oral tablet) 1 Tablet(s) Oral Two Times A Day Pickup at [facility] cyclobenzaprine (cyclobenzaprine 10 mg oral tablet) 0.5 Tablet(s) Oral Two Times A Day as needed for Cramping Pickup at [place] [address] magnesium oxide (magnesium oxide 400 mg (240 mg elemental magnesium) oral tablet) 1 Tablet(s) Oral Two Times A Day Pickup at [place] [address] metOLazone (metOLazone 10 mg oral tablet) 1 Tablet(s) Oral Every Day Pickup at [place] [address] dofetilide (Tikosyn 125 mcg oral capsule) 3 Capsule(s) Oral Two Times A Day Pickup at [place] [address] spironolactone (Aldactone 25 mg oral tablet) 2 Tablet(s) Oral Every Day Pickup at [place] [address] carvedilol (carvedilol 3.125 mg oral tablet) cetirizine (cetirizine 10 mg oral tablet) 1 Tablet(s) Oral Every Day FLUoxetine (FLUoxetine 20 mg oral capsule) 1 Capsule(s) Oral At Bedtime melatonin (Melatonin 3 mg oral tablet) 1 Tablet(s) Oral At Bedtime montelukast (Singulair 10 mg oral tablet) 1 Tablet(s) Oral Every Day nitroglycerin (Nitrostat 0.4 mg sublingual tablet) 1 Tablet(s) SubLINgual Every 5 minutes as needed for as needed for chest pain If chest pain not relieved in 5 minutes after first dose, seek immediate medical attention not to exceed 3 doses/ 15 min--if pain persists, seek medical attention PRAVAstatin (pravastatin 80 mg oral tablet) 1 Tablet(s) Oral At Bedtime rivaroxaban (Xarelto 20 mg oral tablet) 1 Tablet(s) Oral Every Day sacubitril-valsartan (Entresto 24 mg-26 mg oral tablet) 1 Tablet(s) Oral Two Times A Day Pharmacy Information [facility] [address]: [address] [place], [place] [phone] Take your medications faithfully. Do NOT skip [...] and water are not available, use hand dinker. ? Change your dressing as told by [...] contrast dye from your body. ??? Take kllk-vvg-fadjrbr and prescription medicines only as told by [...] 09/08/2005 Document Revised: 01/25/2017 Document Reviewed: 01/25/2017 [employer] Interactive Patient Education ?? 2019 [employer] Heart-Healthy Eating Plan Many factors influence [...] foods can I eat? Grains Breads, including Dutch, white, raymundo, wheat, raisin, rye, oatmeal, and Citizen [place]. Tortillas that are neither fried nor made with lard or trans fat. Low-fat rolls, including hotdog and hamburger buns and Citizen [place] muffins. Biscuits. Muffins. Waffles. Pancakes. Light popcorn. [...] cooking, baking, salads, and as spreads. Other [place] powder. Coffee and tea. All seasonings and condiments. The items listed above may not be a complete list of recommended foods or beverages. Contact your dietitian for more options. What foods are not recommended? Grains Breads that are made with saturated or trans fats, oils, or whole milk. Croissants. Butter rolls. Cheese breads. Sweet rolls. Donuts. Buttered popcorn. Nleson mein noodles. High-fat crackers, such as cheese [...] cheese. Whole milk cheeses, including blue (ana), [place], Brie, Temo, Guyanese, Havarti, Venezuelan, cheddar, Camembert, and [place]. Whole or 2% milk that is liquid, [...] that has suet, meat fat, or shortening. [place] butter, hydrogenated oils, palm oil, coconut oil, [...] 11/29/2008 Document Revised: 09/09/2016 Document Reviewed: 08/14/2014 [employer] Interactive Patient Education ?? 2019 [employer] Living With Heart Failure Heart failure [...] failure, and improving your symptoms. ??? Take lygr-yot-xftxbny and prescription medicines only as told by [...] provider about groups near you. ??? The [place] [employer] Association: www.heart.org Contact a health care [...] 07/05/2017 Document Revised: 07/05/2017 Document Reviewed: 07/05/2017 Elsevier Interactive Patient Education ?? 2019 [employer] Heart Failure Heart failure is a [...] these instructions at home: Medicines ??? Take iras-les-lsxzvpc and prescription medicines only as told by [...] 02/20/2006 Document Revised: 10/25/2016 Document Reviewed: 09/14/2016 [employer] Interactive Patient Education ?? 2017 [employer]. Low-Sodium Eating Plan Sodium, which is an [...] (monosodium glutamate). MSG is sometimes added to Mongolian food, bouillon, and some canned foods. What [...] such as ricotta cheese, fresh mozzarella, or Venezuelan cheese Low-sodium or reduced-sodium cheese. Cream cheese. [...] Vegetables Sauerkraut, pickled vegetables, and relishes. Olives. Dutch fries. Onion rings. Regular canned vegetables (not [...] salad dressings. Salsa. Potato and tortilla chips. [place] chips and puffs. Salted popcorn and pretzels. [...] 08/12/2002 Document Revised: 02/13/2017 Document Reviewed: 02/13/2017 [employer] Interactive Patient Education ?? 2019 [employer]. Heart-Healthy Eating Plan Heart-healthy meal planning includes: [...] foods can I eat? Grains Breads, including Dutch, white, raymundo, wheat, raisin, rye, oatmeal, and Citizen [place]. Tortillas that are neither fried nor made with lard or trans fat. Low-fat rolls, including hotdog and hamburger buns and [place] muffins. Biscuits. Muffins. Waffles. Pancakes. Light popcorn. Whole-grain cereals. Flatbread. [place] toast. Pretzels. Breadsticks. Rusks. Low-fat snacks. Low-fat [...] cooking, baking, salads, and as spreads. Other [place] powder. Coffee and tea. All seasonings and [...] cottage cheese. Whole-milk cheeses, including blue (ana), [place]l, Brie, Temo, Guyanese, Havarti, Venezuelan, cheddar, Camembert, and [place]. Whole or 2% milk that is liquid, [...] that has suet, meat fat, or shortening. [place] butter, hydrogenated oils, palm oil, coconut oil, [...] 08/21/2012 Document Revised: 07/28/2016 Document Reviewed: 08/14/2014 [employer] Interactive Patient Education ?? 2019 [employer]. spironolactone (spir ON oh LAK tone) Aldactone, CaroSpir What is the most important information I should know about spironolactone? You should not use spironolactone if you have kidney problems, high levels of potassium in your blood, Day's disease, if you are unable to urinate, [...] to it, or if you have: ?? Day's disease (an adrenal gland disorder); ?? high [...] may report side effects to FDA at 4-048-RBE-5527. What other drugs will affect spironolactone? Taking [...] may interact with spironolactone, including prescription and fuba-juq-vtrsnsr medicines, vitamins, and herbal products. Not all [...] to ensure that the information provided by [employer]. ('[employer]') is accurate, up-to-date, and complete, but no guarantee is made to that effect. Drug information contained herein may be time sensitive. [employer] information has been compiled for use by healthcare practitioners and consumers in the [place] and therefore [employer] does not warrant that uses outside of the [place] are appropriate, unless specifically indicated otherwise. [employer]'s drug information does not endorse drugs, diagnose patients or recommend therapy. [employer] drug information is an informational resource designed [...] effective or appropriate for any given patient. [employer] does not assume any responsibility for any aspect of healthcare administered with the aid of information [employer] provides. The information contained herein is not intended to cover all possible uses, directions, precautions, warnings, drug interactions, allergic reactions, or adverse effects. If you have questions about the drugs you are taking, check with your doctor, nurse or pharmacist. Copyright 1070-8439 [employer]. Version: 10.. Revision Date: 03/02/2017. metolazone (me LUIS DANIEL [...] is usually taken only once per day. You may need to limit salt in your diet while taking this medicine. Follow your doctor's instructions carefully. Electronically signed by Morales Mejia Conversion Automobile Accessories Salesperson [employer] at 06/19/2022 10:57 PM CDT documented in this encounter Plan of Treatment Not on file documented as of this encounter Visit Diagnoses Not on filedocumented in this encounter
--- OUTSIDE RECORDS SUMMARY | 2025-01-08 15:10 | XMS_ITS | Encounter Summary ---
Author Organization [employer] ([place], [place], [place], [place], [place]) Address [address] [place] [address] Care Team Providers Care Joint Runner Name Role Phone Unavailable Primary Care Provider Unavailabl e Encounter Details Date Type Department Care Team (Late st Contact Info) Description 04/12/2019 Transcribed Document [facility] [place] Family Medicine [facility] [place] [address] ProviderMg MD [facility] [place] [address] Social History Tobacco Use Types Packs/Day Years Used Date Smoking Tobacco: Never Assessed Sex and Gender Information Value Date Recorded Sex Assigned at Not on file Legal Sex Male 1:09 PM CDT Gender Identity Not on file Sexual Orientation Not on file documented as of this encounter Miscellaneous Notes * Cerner Conversion Note - Historical ProviderMD - 04/12/2019 5:00 PM PROCUREMENT SERVICES MANAGER Chart Check - Review Order Profile Entered On: 04/12/2019 19:38 EST Performed On: 04/12/2019 17:00 EST by Mimi Rizzo RN Chart Check Powerplans Initiated/Discontinued as Appropriate : Yes All Active Orders Reviewed : Yes Miim Rizzo RN - 04/12/2019 19:38 EST documented in this encounter Plan of Treatment Not on file documented as of this encounter Visit Diagnoses Not on filedocumented in this encounter
--- OUTSIDE RECORDS SUMMARY | 2025-01-08 15:10 | XMS_ITS | Encounter Summary ---
Author Organization [employer] ([place], [place], [place], [place], [place]) Address [address] [place] [address] Care Team Providers Care Manager Account Management Name Role Phone Unavailable Primary Care Provider Unavailabl e Encounter Details Date Type Department Care Team (Late st Contact Info) Description 05/13/2019 Transcribed Document [facility] [place] [facility] [address] Provider[place] [address] Social History Tobacco Use Types Packs/Day Years Used Date Smoking Tobacco: Never Assessed Sex and Gender Information Value Date Recorded Sex Assigned at Not on file Legal Sex Male 1:09 PM CDT Gender Identity Not on file Sexual Orientation Not on file documented as of this encounter Miscellaneous Notes * Cerner Conversion Note - Mg ProviderMD - 05/13/2019 12:11 PM CDT UM Authorization Entered On: 05/13/2019 12:12 EDT Performed On: 05/13/2019 12:11 EDT by CHARLA BARRAZA RN-Utilization Review Primary Insurance Authorization Authorization and Policy Numbers : Insurance 1 Health Plan: [facility] Policy Number: Authorization Number: [id number] Insurance Primary Name : [employer] [id number] Authorization Status-Primary : Admit approved Authorization Number-Primary : [id number] Number of Days Authorized-Primary : 6 Day(s) Authorized Service Begin Date-Primary : 05/03/2019 EST Authorized Service End Date-Primary : 05/09/2019 EST Authorization Comments-Primary : [employer]C approved per aKtrin for 05/09 to 05/12 -- gave d/c date Historical Authorization Comments-Primary : Comment 1: Continued stay clinicals faxed via Jessica (Trudi Gaona Rn-Utilization Review 2019 12:15) Comment 2: ARC approved per Katrin for total of 7 days --- nrd 3/6 (CHARLA BARRAZA, RN-Utilization Review 05/08/2019 15:22) Comment 3: Clinicals for CS faxed via [employer] (MARLENE THORNTON, Rn-Utilization Review 05/08/2019 14:43) Comment 4: [place] approved per Katrin for 5 days total --- nrd 3/4 (CHARLA BARRAZA, RN-Utilization Review 05/06/2019 13:43) Comment 5: Uploaded continuing stay clinicals (05/06/19) to [facility] via [employer]. (ARMANDO SHANNON, RN-Utilization Review 05/06/2019 12:11) Comment 6: Per [facility], admit approved with auth #[id number] given from 05/03-05/05/19. Next review date 05/06/19. (ARMANDO SHANNON, RN-Utilization Review 05/06/2019 08:05) Comment 7: Uploaded clinicals to [facility] administrators via [employer]. Manually faxed ARC form. (ARMANDO SHANNON, RN-Utilization Review 05/03/2019 13:31) CHARLA BARRAZA RN-Utilization Review - 05/13/2019 12:11 EDT documented in this encounter Plan of Treatment Not on file documented as of this encounter Visit Diagnoses Not on filedocumented in this encounter
--- OUTSIDE RECORDS SUMMARY | 2025-01-08 15:11 | XMS_ITS | Encounter Summary ---
Author Organization [employer] ([place], [place], [place], [place], [place]) Address [address] [place] [address] Care Team Providers Care Auto Customize Painter Name Role Phone Unavailable Primary Care Provider Unavailabl e Encounter Details Date Type Department Care Team (Late st Contact Info) Description 05/02/2019 Transcribed Document [facility] Family Medicine [facility] [address] ProviderMg MD [facility] [address] Social History Tobacco Use Types Packs/Day Years Used Date Smoking Tobacco: Never Assessed Sex and Gender Information Value Date Recorded Sex Assigned at Not on file Legal Sex Male 1:09 PM CDT Gender Identity Not on file Sexual Orientation Not on file documented as of this encounter Miscellaneous Notes * Cerner Conversion Note - Historical ProviderMD - 05/02/2019 5:00 PM ERGONOMICS CONSULTANT Chart Check - Review Order Profile Entered On: 05/02/2019 18:53 EST Performed On: 05/02/2019 17:00 EST by Chelo Cardenas RN Chart Check Powerplans Initiated/Discontinued as Appropriate : Yes All Active Orders Reviewed : Yes Chelo Cardenas RN - 05/02/2019 18:53 EST documented in this encounter Plan of Treatment Not on file documented as of this encounter Visit Diagnoses Not on filedocumented in this encounter
--- OUTSIDE RECORDS SUMMARY | 2025-01-08 15:11 | XMS_ITS | Encounter Summary ---
Author Organization [employer] ([place], [place], [place], [place], [place]) Address [address] [place] [address] Care Team Providers Care Feather Maker Name Role Phone Unavailable Primary Care Provider Unavailabl e Encounter Details Date Type Department Care Team (Late st Contact Info) Description 05/08/2019 Transcribed Document [facility] [place] [facility] [place] [address] ProviderMg MD [facility] [place] [address] Social History Tobacco Use Types Packs/Day Years Used Date Smoking Tobacco: Never Assessed Sex and Gender Information Value Date Recorded Sex Assigned at Not on file Legal Sex Male 1:09 PM CDT Gender Identity Not on file Sexual Orientation Not on file documented as of this encounter Miscellaneous Notes * Cerner Conversion Note - Historical ProviderMD - 05/08/2019 5:00 AM FINISHED CLOTH EXAMINER Chart Check - Review Order Profile Entered On: 05/08/2019 4:58 EST Performed On: 05/08/2019 5:00 EST by Reyna Nicolas RN Chart Check All Active Orders Reviewed : Yes Reyna Nicolas RN - 05/08/2019 4:58 EST Electronically signed by Jackie [facility] Conversion Ore Crusher Heroner at 06/19/2022 11:14 PM CDT documented in this encounter Plan of Treatment Not on file documented as of this encounter Visit Diagnoses Not on filedocumented in this encounter
--- OUTSIDE RECORDS SUMMARY | 2025-01-08 15:11 | XMS_ITS | Encounter Summary ---
Author Organization [employer] ([place], [place], [place], [place], [place]) Address [address] [place] [address] Care Team Providers Care Coin Machine Mechanic Name Role Phone Unavailable Primary Care Provider Unavailabl e Encounter Details Date Type Department Care Team (Late st Contact Info) Description 04/11/2019 Transcribed Document [facility] [place] [facility] [place] [address] ProviderMg MD [facility] [place] [address] Social History Tobacco Use Types Packs/Day Years Used Date Smoking Tobacco: Never Assessed Sex and Gender Information Value Date Recorded Sex Assigned at Not on file Legal Sex Male 1:09 PM CDT Gender Identity Not on file Sexual Orientation Not on file documented as of this encounter Miscellaneous Notes * Cerner Conversion Note - Mg ProviderMD - 04/11/2019 6:01 PM SIDE SEAM ENVELOPE MACHINE OPERATOR Nutrition Assessment Entered On: 04/12/2019 10:52 EST Performed On: 04/12/2019 13:45 EST by Katrin Arias RD, BARBY Nutrition Assessment Nutrition Assessment Reason : Automatic referral Katrin Arias RD, LD - 04/12/2019 10:52 EST Nutrition Recommendations Dietitian Recommendations : (04/12) RD rec'd routine cardiology consult. Pt admitted due to acute on chornic systolic left heart failure. Pt transferred to ICU for need of milrinone drip. Pt was resting at time of visit. Pt is currenlty on a cardiac diet. Labs and meds reviewed. No skin or GI issues noted. Will rescreen in 3-5 days for po intake establishment and need for diet edu once pt transfers out of ICU or available prn. Katrin Arias RD, LD - 04/12/2019 13:38 EST documented in this encounter Plan of Treatment Not on file documented as of this encounter Visit Diagnoses Not on filedocumented in this encounter
--- OUTSIDE RECORDS SUMMARY | 2025-01-08 15:11 | XMS_ITS | Encounter Summary ---
Author Organization [employer] ([place], [place], [place], [place], [place]) Address [address] [place] [address] Care Team Providers Care Digital Controls Technical Officer Name Role Phone Unavailable Primary Care Provider Unavailabl e Encounter Details Date Type Department Care Team (Late st Contact Info) Description 05/05/2019 Transcribed Document [facility] [place] [facility] [place] [address] ProviderMg MD [facility] [place], [place] [id number] Social History Tobacco Use Types Packs/Day Years Used Date Smoking Tobacco: Never Assessed Sex and Gender Information Value Date Recorded Sex Assigned at Not on file Legal Sex Male 1:09 PM CDT Gender Identity Not on file Sexual Orientation Not on file documented as of this encounter Miscellaneous Notes * Cerner Conversion Note - Mg Ritchie MD - 05/05/2019 11:16 AM HARNESS PREPARER Patient: JOSE PEARSON Age: 48 years Sex: Male : 1970 Associated Diagnoses: None Author: SO BURDICK MD-CAR Subjective Chief complaint Less SOB, feels much better. Health Status Allergies: Allergic Reactions (Selected) No Known Medication Allergies, Allergies (1) Active Reaction No Known Medication Allergies None Documented Current medications: (Selected) Inpatient Medications Ordered Bumex: 2 mg, IV Push, BID Colace: 100 mg, Oral, BID Core.125 mg, Oral, BID FLUoxetine: 20 mg, Oral, At Bedtime Ferrlecit + Sodium Chloride 0.9% intravenous solution 250 mL: 250 mg, 20 mL, 135 mL/Hr, IV Piggyback, Daily Flonase: 1 [place], Nostrils Both, BID Melatonin: 3 mg, Oral, At Bedtime Nitrostat: 0.4 mg, SubLINgual, Q5Min, PRN: Chest Pain Normal Saline 1,000 mL: 10 mL/Hr, IntraVENous Normal Saline Flush: 10 mL, IV Push, Q12H Normal Saline Flush: 10 mL, IV Push, See Comment, PRN: IV Use PRAVAstatin: 80 mg, Oral, At Bedtime Singulair: 10 mg, Oral, Daily Tikosyn: 250 mcg, Oral, BID Tylenol: 650 mg, Oral, Q4H, PRN: Pain (Mild 1-3) Zofran: 4 mg, IV Push, Q6H, PRN: Nausea/Vomiting acetaminophen-HYDROcodone 325 mg-5 mg oral tablet: 1 Tab, Oral, Q4H, PRN: Pain (Moderate 4-6) loratadine: 10 mg, Oral, Daily magnesium sulfate: 2 Gram, 50 mL, 25 mL/Hr, IV Piggyback, On-CALL, PRN: Other (See Comment) milrinone injection 20 mg +: TITRATE, IntraVENous morphine: 2 mg, IV Push, Q5Min, PRN: Pain (Severe 7-10) potassium chloride 10 mEq/50 mL intravenous solution: 10 mEq, 100 mL, 100 mL/Hr, IV Piggyback, Q1H, PRN: Other (See Comment) potassium chloride 20 mEq oral tablet, extended release: 40 mEq, 2 Tab, Oral, 1-Time, PRN: Other (See Comment) potassium chloride 20 mEq oral tablet, extended release: 40 mEq, 4 Tab, Oral, TID potassium chloride 20 mEq oral tablet, extended release: 60 mEq, 3 Tab, Oral, On-CALL, PRN: Other (See Comment) spironolactone: 25 mg, Oral, Daily Prescriptions Prescribed Tikosyn 250 mcg oral capsule: 1 Cap, Oral, BID, 60 Cap, 0 Refill(s) Documented Medications Documented Entresto 24 [...] spironolactone: 25 mg, Oral, Daily, 0 Refill(s), Home Medications (12) Active carvedilol 3.125 mg oral tablet cetirizine 10 mg oral tablet 10 mg = 1 Tab, Oral, Daily Entresto 24 mg-26 mg oral tablet 1 Tab, Oral, BID FLUoxetine 20 mg oral capsule 20 mg = 1 Cap, Oral, At Bedtime Lasix 40 mg oral tablet 40 mg = 1 Tab, Oral, BID Melatonin 3 mg oral tablet 3 mg = 1 Tab, Oral, At Bedtime Nitrostat 0.4 mg sublingual tablet 0.4 mg = 1 Tab, PRN, SubLINgual, Q5Min pravastatin 80 mg oral tablet 80 mg = 1 Tab, Oral, At Bedtime Singulair 10 mg oral tablet 10 mg = 1 Tab, Oral, Daily spironolactone 25 mg, Oral, Daily Tikosyn 250 mcg oral capsule 250 mcg = 1 Cap, Oral, BID Xarelto 20 mg oral tablet 20 mg = 1 Tab, Oral, Daily , Medications (26) Active Scheduled: (14) #NaCl 0.9% *FLUSH* inj 10 mL 10 mL, IV Push, Q12H bumetanide 1 mg/4 mL inj 2 mg 8 mL, IV Push, BID carvedilol 3.125 mg tab 3.125 mg 1 Tab, Oral, BID docusate sodium 100 mg cap 100 mg 1 Cap, Oral, BID dofetilide 250 mcg cap 250 mcg 1 Cap, Oral, BID FLUoxetine 20 mg cap 20 mg 1 Cap, Oral, At Bedtime fluticasone 0.05% nasal spray 1 Hur[place], Nostrils Both, BID loratadine 10 mg tab 10 mg 1 Tab, Oral, Daily melatonin 3 mg tab 3 mg 1 Tab, Oral, At Bedtime montelukast 10 mg tab 10 mg 1 Tab, Oral, Daily potassium chloride CR 10 mEq tab 40 mEq 4 Tab, Oral, TID PRAVAstatin sodium 20 mg tab 80 mg 4 Tab, Oral, At Bedtime sod ferric gluc cmplx + NaCl 0.9% 250 mL 250 mg 20 mL, IV Piggyback, Daily spironolactone 25 mg tab 25 mg 1 Tab, Oral, Daily Continuous: (2) milrinone/D5w 20 mg + 200 mL, IntraVENous NaCl 0.9% 1,000 mL 1,000 mL, IntraVENous, 10 mL/Hr PRN: (10) #NaCl 0.9% *FLUSH* inj 10 mL 10 mL, IV Push, See Comment acetaminophen 325 mg tab 650 mg 2 Tab, Oral, Q4H acetaminophen/HYDROcodone 325/5 mg tab 1 Tab, Oral, Q4H magnesium sulfate 2 Gram 50 mL, IV Piggyback, On-CALL morphine 2 mg/1 ml inj 2 mg 1 mL, IV Push, Q5Min nitroglycerin 0.4 mg tab # 25 btl 0.4 mg 1 Tab, SubLINgual, Q5Min ondansetron 4 mg/2 mL inj 4 mg 2 mL, IV Push, Q6H potassium chloride 10 mEq 100 mL, IV Piggyback, Q1H potassium chloride CR 20 mEq tab 40 mEq 2 Tab, Oral, 1-Time potassium chloride CR 20 mEq tab 60 mEq 3 Tab, Oral, On-CALL Problem list: Medical angina / SNOMED CT 617363393 / Confirmed Cardiac defibrillator in place / SNOMED CT 0663476758 / Confirmed interrogated at physicians office---02/22/13 pacemaker / SNOMED CT 7869692694 / Confirmed stroke / SNOMED CT 932212202 / Confirmed he had a stroke when they found the blood clot in valve History of obstructive sleep apnea / IMO [id number] / Confirmed high cholesterol / SNOMED CT 29407063 / Confirmed hypertension / SNOMED CT 9003486593 / Confirmed myocardial infarction / SNOMED CT 38751515 / Confirmed sesonal allergies / SNOMED CT 5100404520 / Confirmed Resolved: At risk for sleep apnea / IMO [id number] Resolved: 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 / SNOMED CT 625807505 treated with blood thinners, Active Problems (16) stroke angina Asthma Cardiac defibrillator in place Cardiomyopathy GERD - Gastro-esophageal reflux disease H/O: CVA Heart failure high cholesterol History of obstructive sleep apnea Hyperlipidemia hypertension Hypotension myocardial infarction pacemaker sesonal allergies Objective VS/Measurements Vitals Signs (last 24 hrs) Last Charted Minimum Maximum Temp 98.3 (MAY 04 09:27) 97.9 (Apr 20:00) 98 (MAY 04 00:00) Apical HR 94 (MAY 04 08:57) 94 (MAY 04 08:57) H 110 (Apr 20:42) Mon HR 107 (MAY 04 08:00) 75 (MAY 04:00) 108 (Apr 20:30) Resp Rate H 34 (MAY 04 08:00) 16 (Apr 15:30) H 52 (MAY 04 04:30) SBP 130 (MAY 04:) 97 (Apr 23:30) H 168 (Apr 18:00) DBP 76 (MAY 04 08:00) L 58 (MAY 04 00:00) H 101 (Apr 17:30) MAP 97 (MAY 04 08:) 73 (MAY 04 00:00) 112 (Apr 17:30) SpO2 95.00 (MAY 04 08:) L 84.00 (Apr 15:30) 97.00 (Apr 20:00) General: Alert and oriented. Neck: No carotid bruit, No jugular venous distention. Respiratory: Lungs are clear to auscultation, Respirations are non-labored, Breath sounds are equal, Symmetrical chest wall expansion. Cardiovascular: Normal rate, Regular rhythm, No murmur, Good pulses equal in all extremities, Normal peripheral perfusion, No edema, PMI is displaced laterally, S3 gallop. Gastrointestinal: Normal bowel sounds. Integumentary: Warm, Dry, [place]. 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 avila for gerardo clip eval - Continue Primacor x 72 hrs - holding entresto due to low BP -Continue coreg - Continuebumex 2 BID - He's had EF <20% since 2007. Typical survival rate is 1 year and he is now 12 years past diagnosis. - +/- cardiomems monday - Transfuse iron for low saturation and ferritin less than 200 -2 D Echo during primacor infusion to asses LV reserve-pending PAF-currently SR - tikosyn 250 bid , QTC allowance to 550 with ICD - ICD insitu -xarelto on hold for possible cardio mem tomorrow -will contact rep in am hypokalemia -Corrected hypomag -Corrected Electronically signed by Morales Mejia Conversion Certified Prosthetist/Orthotist Cerner at 06/19/2022 10:55 PM CDT documented in this encounter Plan of Treatment Not on file documented as of this encounter Visit Diagnoses Not on filedocumented in this encounter
--- OUTSIDE RECORDS SUMMARY | 2025-01-08 15:11 | XMS_ITS | Encounter Summary ---
Author Organization [employer] ([place], [place], [place], [place], [place]) Address [address] [place] [address] Care Team Providers Care Metallurgical Engineering Teacher Name Role Phone Unavailable Primary Care Provider Unavailabl e Encounter Details Date Type Department Care Team (Late st Contact Info) Description 05/05/2019 Transcribed Document [facility] [place] [address] [place] [address] ProviderMg MD [address] [place], [place] [address] Social History Tobacco Use Types Packs/Day Years Used Date Smoking Tobacco: Never Assessed Sex and Gender Information Value Date Recorded Sex Assigned at Not on file Legal Sex Male 1:09 PM CDT Gender Identity Not on file Sexual Orientation Not on file documented as of this encounter Miscellaneous Notes * Cerner Conversion Note - Historical ProviderMD - 05/05/2019 2:00 AM SURGICAL SERVICES MANAGER Matchbook Maker Details Entered On: 05/05/2019 0:59 EST Performed On: 05/05/2019 2:00 EST by Josefina March, RN-Resource Order Details Transport Mode Order Detail : Wheelchair Isolation Precautions Order Detail : Standard Precautions Order Detail : N/A IV Order Detail : 1 Oxygen Order Detail : 0 Nurse Collect Order Detail : 1 Lift/Transfer : Independent Central Line Order Detail : No Room Service : Not Appropriate Arterial Line : No Josefina March, RN-Resource - 05/05/2019 0:59 EST documented in this encounter Plan of Treatment Not on file documented as of this encounter Visit Diagnoses Not on filedocumented in this encounter
--- OUTSIDE RECORDS SUMMARY | 2025-01-08 15:11 | XMS_ITS | Encounter Summary ---
Author Organization [employer] ([place], [place], [place], [place], [place]) Address [address] [place] [address] Care Team Providers Care Regional Director Of Admissions Name Role Phone Unavailable Primary Care Provider Unavailabl e Encounter Details Date Type Department Care Team (Late st Contact Info) Description 05/03/2019 Transcribed Document [facility] [place] [address] [place] [address] ProviderMg MD [facility] [place], [place] [id number] Social History Tobacco Use Types Packs/Day Years Used Date Smoking Tobacco: Never Assessed Sex and Gender Information Value Date Recorded Sex Assigned at Not on file Legal Sex Male 1:09 PM CDT Gender Identity Not on file Sexual Orientation Not on file documented as of this encounter Miscellaneous Notes * Cerner Conversion Note - Historical ProviderMD - 05/03/2019 10:49 AM HOG STOMACH PREPARER Therapy Screen, PT Entered On: 05/03/2019 10:50 EST Performed On: 05/03/2019 10:49 EST by ALYX BOSTON PT Therapy Screen, PT Medical Chart Reviewed : Yes Person Providing Information : Patient Screen Completed : Yes Recommendation for Evaluation, PT : None Recommendations Upon Discharge : None Additional Therapy Screen Comment : Pt is independent with all functional tasks and will not require skilled PT in the hospital. Will sign-off. ALYX BOSTON, PT - 05/03/2019 10:49 EST documented in this encounter Plan of Treatment Not on file documented as of this encounter Visit Diagnoses Not on filedocumented in this encounter
--- OUTSIDE RECORDS SUMMARY | 2025-01-08 15:11 | XMS_ITS | Encounter Summary ---
Author Organization [employer] ([place], [place], [place], [place], [place]) Address [address] [place] [address] Care Team Providers Care Comedian Name Role Phone Unavailable Primary Care Provider Unavailabl e Encounter Details Date Type Department Care Team (Late st Contact Info) Description 05/09/2019 Transcribed Document [facility] [place] [facility] [place] [address] ProviderMg MD [facility] [place] [address] Social History Tobacco Use Types Packs/Day Years Used Date Smoking Tobacco: Never Assessed Sex and Gender Information Value Date Recorded Sex Assigned at Not on file Legal Sex Male 1:09 PM CDT Gender Identity Not on file Sexual Orientation Not on file documented as of this encounter Miscellaneous Notes * Cerner Conversion Note - Historical ProviderMD - 05/09/2019 2:00 AM MEDICAL FACILITIES SECTION DIRECTOR Increment Manager Details Entered On: 05/09/2019 1:41 EST Performed On: 05/09/2019 2:00 EST by Ashely Townsend RN Order Details Transport Mode Order Detail : Wheelchair Isolation Precautions Order Detail : Standard Precautions Order Detail : N/A IV Order Detail : 1 Oxygen Order Detail : 0 Nurse Collect Order Detail : 0 Lift/Transfer : Independent Central Line Order Detail : No Room Service : Needs Assistance Arterial Line : No Ashely Townsend RN - 05/09/2019 1:41 EST documented in this encounter Plan of Treatment Not on file documented as of this encounter Visit Diagnoses Not on filedocumented in this encounter
--- OUTSIDE RECORDS SUMMARY | 2025-01-08 15:11 | XMS_ITS | Encounter Summary ---
Author Organization [employer] ([place], [place], [place], [place], [place]) Address [address] [place] [address] Care Team Providers Care Idea Man Name Role Phone Unavailable Primary Care Provider Unavailabl e Encounter Details Date Type Department Care Team (Late st Contact Info) Description 05/04/2019 Transcribed Document [facility] [place] [address] [place] [address] ProviderMg MD [address] [place], [place] [address] Social History Tobacco Use Types Packs/Day Years Used Date Smoking Tobacco: Never Assessed Sex and Gender Information Value Date Recorded Sex Assigned at Not on file Legal Sex Male 1:09 PM CDT Gender Identity Not on file Sexual Orientation Not on file documented as of this encounter Miscellaneous Notes * Cerner Conversion Note - Historical ProviderMD - 05/04/2019 2:00 AM BOAT CAPTAIN Stock And Station Agent Details Entered On: 05/04/2019 4:57 EST Performed On: 05/04/2019 2:00 EST by Carlos Ojeda RN Order Details Transport Mode Order Detail : Wheelchair Isolation Precautions Order Detail : Standard Precautions Order Detail : N/A IV Order Detail : 1 Oxygen Order Detail : 0 Nurse Collect Order Detail : 1 Lift/Transfer : Independent Central Line Order Detail : No Room Service : Not Appropriate Arterial Line : No Carlos Ojeda, MARYCARMEN - 05/04/2019 4:56 EST Electronically signed by Morales Mejia Conversion Communications Station Manager Cerner at 06/19/2022 11:04 PM CDT documented in this encounter Plan of Treatment Not on file documented as of this encounter Visit Diagnoses Not on filedocumented in this encounter
--- OUTSIDE RECORDS SUMMARY | 2025-01-08 15:11 | XMS_ITS | Encounter Summary ---
Author Organization [employer] ([place], [place], [place], [place], [place]) Address [address] [place] [address] Care Team Providers Care Asphalt Machine Operator Name Role Phone Unavailable Primary Care Provider Unavailabl e Encounter Details Date Type Department Care Team (Late st Contact Info) Description 05/02/2019 Transcribed Document [facility] [place] Family Medicine [facility] [place] [address] ProviderMg MD [facility] [place] [address] Social History Tobacco Use Types Packs/Day Years Used Date Smoking Tobacco: Never Assessed Sex and Gender Information Value Date Recorded Sex Assigned at Not on file Legal Sex Male 1:09 PM CDT Gender Identity Not on file Sexual Orientation Not on file documented as of this encounter Miscellaneous Notes * Cerner Conversion Note - Mg ProviderMD - 05/02/2019 3:13 PM DIRECT SERVICE PROVIDER Admission History, Adult Entered On: 05/02/2019 18:52 EST Performed On: 05/02/2019 15:13 EST by Chelo Cardenas RN Advance Directive Patient has Advance Directive *Q : No, patient refuses Advance Directive information Chelo Cardenas RN - 05/02/2019 18:47 EST Anesthesia/Transfusion History Family History of Anesthesia Reaction : No prior transfusion(s) Blood Transfusion Acceptable to Patient : Yes Transfusion History : Prior anesthesia reaction Type of Anesthesia Reaction : Excessive somnolence Family History of Anesthesia Reaction : None Chelo Cardenas RN - 05/02/2019 18:47 EST Anticipated Discharge Needs Discharge To, Anticipated : Home Anticipated Discharge Needs at This Time : None Chelo Cardenas RN - 05/02/2019 18:47 EST Education Topics, Admission Orientation DCP GENERIC CODE Advance Directives : Verbalizes understanding Assessment/Vital Signs : Verbalizes understanding Bed Control : Verbalizes understanding Call Light : Verbalizes understanding Diet/Room Service : Verbalizes understanding ID Band Applied : Verbalizes understanding Orientation to Room/Bathroom : Verbalizes understanding Patient Safety : Verbalizes understanding Rounding : Verbalizes understanding Siderails use/risks : Verbalizes understanding Telemetry Monitoring : Verbalizes understanding Television/Phone : Verbalizes understanding Visiting Policy : Verbalizes understanding Chelo Cardenas RN - 05/02/2019 18:47 EST Functional Assessment Living Situation : Home Patient Lives With : Spouse Current Home Treatments : CPAP Chelo Cardenas RN - 05/02/2019 18:47 EST General Info Emergency Contact #1 : Neel Marqueston Emergency Contact #1 Emergency Contact #1 Relationship : Emergency Contact #2 : none Emergency Contact #2 Phone Number : none Emergency Contact #2 Relationship : none Chelo Cardenas RN - 05/02/2019 19:03 EST Support Person/Patient Obstetrics Gynecology Md : Yes Support Person/Pt Rep Name : Neel Pearson-- Contact Password : neel Support Person/Pt Rep Contact Information : [phone] Want Family/Rep/Phys Notified of Admit : No Primary Language : Albanian Preferred Communication Mode : Verbal Communication Barrier : None Chelo Cardenas RN - 05/02/2019 18:47 EST Fall Risk Scales ABCs Fall Injury Risk Identification : Coagulation ABC Fall Injury Risk : Moderate to high injury risk Injury Moderate to High Risk Interventions : Bed alarm on, Patient room close to nurses station, Specialty low bed, Transport methods appropriate to patient, Wrist band (fall risk) on per policy SHARMA Hx Falls Immediate/Within 3 Months : No Sharma Secondary Diagnosis : No SHARMA Use of Ambulatory Aid : Bed rest/Nurse assist SHARMA IV Therapy or IV Access : Yes Sharma Gait/Transferring : Normal, bedrest, immobile Sharma Mental Status : Oriented to own ability Sharma Fall Risk Score : 20 SHARMA Fall Scale Risk Level : 0-24 Low Risk [place] Fall Interventions : Adequate lighting, Bed in low position, Call device within reach, Frequent orientation to call device, Hourly comfort/safety rounds, Non-slip footwear, Personal items within reach, Reinforced to call for assistance before getting out of bed, Room free of clutter/spills, Upper side-rails up, Wheels locked, Wires/Cords secured Fall Risk Scale Calc Temp : 0 Chelo Cardenas RN - 05/02/2019 18:47 EST Health Histories Smoking Status : Never (less than 100 in lifetime; none in last 30 days) Smokeless Tobacco Status : Former smokeless tobacco user, quit more than 30 days ago Chelo Cardenas RN - 05/02/2019 18:47 EST Social History (As Of: 05/02/2019 18:52:06 EST) Tobacco: Use in Last 12 Months: Snuff/Dip. Smoking Status daily tobacco use. Years of Use: 23. Packs/Tins Daily: 4. Last Used: patient uses dip 4 times a day. Second Hand Smoke Exposure: No. (Last Updated: 09/02/2014 12:08:44 EDT by MICHELE NICOLE, RN) Alcohol: Alcohol Use History Yes. Total Drinks/Week: 1. Date/Time of Last Drink: 03/05/2018update none since apr 13 2018 -. Use in Last 12 Months: Yes. Alcohol Use Frequency Socially. (Last Updated: 05/28/2018 10:30:15 EDT by BRITTON OSBORNE, RN) Substance Abuse: Drug Use Hx: No. Use in Last 12 Months: No. (Last Updated: 02/12/2017 17:32:08 EST by SERGEI GARCIA, RN) Height and Weight, Clinical Dosing Height, Feet : 6 ft(Converted to: 183 cm, 72 Inch) Height, Inches : 0 Inch(Converted to: 0 ft 0 Inch, 0.00 cm) Clinical Height : 182.88 cm Body Surface Area (BSA) : 2.26 m2 Body Mass Index : 31.3 kg/m2 (HI) [place] Body Weight : 77 kg Chelo Cardenas RN - 05/02/2019 19:03 EST Height Source : Stated Height Entry Format : Anderson Weight Source : Bed scale Weight Entry Format : Anderson Clinical Dosing Weight : 104.55 kg Weight, Pounds : 230 lb Chelo Cardenas RN - 05/02/2019 18:47 EST Infectious Disease History Physical contact outside [place] in the last 30 days : No Infectious Disease History : Chicken pox/Shingles, Influenza, Measles, Mumps Tuberculosis Symptoms : None Chelo Cardenas RN - 05/02/2019 18:47 EST Tetanus Immunization Status Previous Tetanus Immunizations : No qualifying data available. Tetanus Immunization : Unknown Chelo Cardenas RN - 05/02/2019 18:47 EST Influenza Vaccine Asmt, Adult Previous Vaccines from Immunization Schedule : No qualifying data available. Influenza Immunization, Current Season : Yes Chelo Cardenas RN - 05/02/2019 18:47 EST Pneumococcal Vaccine Previous Vaccines from Immunization Schedule : No qualifying data available. Pneumonia Immunization Received : Yes Chelo Cardenas RN - 05/02/2019 18:47 EST Order Details Transport Mode Order Detail : Wheelchair Isolation Precautions Order Detail : Standard Precautions Order Detail : N/A IV Order Detail : 1 Oxygen Order Detail : 0 Nurse Collect Order Detail : 1 Lift/Transfer : Independent Central Line Order Detail : No Chelo Cardenas RN - 05/02/2019 18:47 EST Room Service : Appropriate Mimi Cisneros RN - 05/04/2019 8:49 EST Arterial Line : No Chelo Cardenas RN - 05/02/2019 18:47 EST Nutrition History Feeding Ability : Independent Adaptive Feeding Equipment : Regular Oral Medication Administration : By mouth Eating Poorly Due to Decreased Appetite : No Unplanned Weight Loss in Past 3-6 Months : No Malnutrition Screening Tool Total(mal) : 0 Malnutrition Screening Tool Risk Level : Patient not at risk Chelo Cardenas RN - 05/02/2019 18:47 EST [place] Suicide Severity Rating Scale (C-SSRS) CSSRS Past Month Wish to be : No CSSRS Past Month Suicidal Thoughts : No CSSRS Lifetime Suicide Behavior : No Suicide Severity Rating Score : 0 Suicide Severity Rating : No Additional Care Required at this time Chelo Cardenas RN - 05/02/2019 18:47 EST Psychosocial History Chronic/Terminal Illness w/Freq Visits : No Do You Have a History of the Following? : Patient denies history Currently in Unsafe Situation : No Chelo Cardenas RN - 05/02/2019 18:47 EST Sleep Apnea Risk Assmt BiPAP/CPAP Ordered for Home Use : Yes Hx of Obstructive Sleep Apnea Diagnosis : Yes BiPAP/CPAP Used at Home : Yes Age over 50 Years Old : No Gender Male : Yes Chelo Cardenas RN - 05/02/2019 18:47 EST Spiritual/Cultural Needs Any Spiritual/Cultural Needs or Requests : No Chelo Cardenas RN - 05/02/2019 18:47 EST Valuables and Belongings Valuables and Belongings : Clothing, Personal items Clothing : Common streetwear Clothing Disposition : With patient Personal Items : Cell phone Personal Items Disposition : With patient Chelo Cardenas RN - 05/02/2019 18:47 EST Electronically signed by [facility] Conversion Doping Supervisor Cerner at 06/19/2022 10:52 PM CDT documented in this encounter Plan of Treatment Not on file documented as of this encounter Visit Diagnoses Not on filedocumented in this encounter
--- OUTSIDE RECORDS SUMMARY | 2025-01-08 15:11 | XMS_ITS | Encounter Summary ---
Author Organization [employer] ([place], [place], [place], [place], [place]) Address [address] [place] [address] Care Team Providers Care Paste Thinner Name Role Phone Unavailable Primary Care Provider Unavailabl e Encounter Details Date Type Department Care Team (Late st Contact Info) Description 04/11/2019 Transcribed Document [facility] [place] Family Medicine [facility] [place] [address] ProviderMg MD [facility] [place] [address] Social History Tobacco Use Types Packs/Day Years Used Date Smoking Tobacco: Never Assessed Sex and Gender Information Value Date Recorded Sex Assigned at Not on file Legal Sex Male 1:09 PM CDT Gender Identity Not on file Sexual Orientation Not on file documented as of this encounter Miscellaneous Notes * Cerner Conversion Note - Mg ProviderMD - 04/11/2019 6:01 PM BRINE MAKER Cardiac and Pulmonary Outpatient [facility] Entered On: 04/19/2019 14:17 EST Performed On: 04/19/2019 14:17 EST by EDITH CHAVIS RN Cardiac and Pulmonary Outpatient [facility] Phase 2 Cardiac Rehab Criteria Met : Heart failure (HF) Cardiac Outpatient Rehab Evaluation Comment : Order faxed to [facility] due to pts location. EDITH CHAVIS RN - 04/19/2019 14:17 EST Electronically signed by [facility] Conversion Cdl Team Truck Driver Cerner at 06/19/2022 11:06 PM CDT documented in this encounter Plan of Treatment Not on file documented as of this encounter Visit Diagnoses Not on filedocumented in this encounter
--- OUTSIDE RECORDS SUMMARY | 2025-01-08 15:11 | XMS_ITS | Encounter Summary ---
Author Organization [employer] ([place], [place], [place], [place], [place]) Address [address] [place] [address] Care Team Providers Care Press Machine Feeder Name Role Phone Unavailable Primary Care Provider Unavailabl e Encounter Details Date Type Department Care Team (Late st Contact Info) Description 05/03/2019 Transcribed Document [facility] [place] [facility] [place] [address] ProviderMg MD [facility] [place], [place] [id number] Social History Tobacco Use Types Packs/Day Years Used Date Smoking Tobacco: Never Assessed Sex and Gender Information Value Date Recorded Sex Assigned at Not on file Legal Sex Male 1:09 PM CDT Gender Identity Not on file Sexual Orientation Not on file documented as of this encounter Miscellaneous Notes * Cerner Conversion Note - Mg Ritchie MD - 05/03/2019 9:58 AM CERTIFED REFRIGERATION OPERATOR Patient: JOSE PEARSON Age: 48 years Sex: Male : 1970 Associated Diagnoses: None Author: SO BURDICK MD-CAR Subjective Chief complaint feels better this am. less soa. . Objective VS/Measurements Vital Measurements 05/03/2019 9:00 EST Systolic Blood Pressure 125 mmHg Diastolic Blood Pressure 60 mmHg Mean Arterial Pressure (MAP)-BMDI 86 Heart Rate Monitored 92 bpm Respiratory Rate 29 Breaths/Min HI Oxygen Saturation 94.00 % General: Alert and oriented. Neck: No carotid bruit, No jugular venous distention. Respiratory: Lungs are clear to auscultation, Respirations are non-labored, Breath sounds are equal, Symmetrical chest wall expansion. Cardiovascular: Normal rate, Regular rhythm, No murmur, No gallop, Good pulses equal in all extremities, Normal peripheral perfusion, No edema. Gastrointestinal: Normal bowel sounds. Integumentary: Warm, Dry, [place]. 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 avila for gerardo clip eval - Primacor x 72 hrs - holding bb and entresto at this time. - bumex 2 BID - He's had EF <20% since 2007. Typical survival rate is 1 year and he is now 12 years past diagnosis. - +/- cardiomems monday PAF-currently SR - tikosyn 250 bid , QTC allowance to 550 with ICD - ICD insitu -xarelto on hold for possible cardiomems monday hypokalemia -oral replacement over IV hypomag -replace addendum: multifoccal pvc. discussed with dr burdick. resumed home coreg. plan for echo tomorrow with improvement of arrythmia I Dr. Burdick has personally seen and examined this patient and devised the above plan of care. documented in this encounter Plan of Treatment Not on file documented as of this encounter Visit Diagnoses Not on filedocumented in this encounter
--- OUTSIDE RECORDS SUMMARY | 2025-01-08 15:11 | XMS_ITS | Encounter Summary ---
Author Organization [employer] ([place], [place], [place], [place], [place]) Address [address] [place] [address] Care Team Providers Care Operations Analyst Name Role Phone Unavailable Primary Care Provider Unavailabl e Encounter Details Date Type Department Care Team (Late st Contact Info) Description 04/17/2019 Transcribed Document [facility] [place] Family Medicine [facility] [place] [address] ProviderMg MD [facility] [place], [place] [id number] Social History Tobacco Use Types Packs/Day Years Used Date Smoking Tobacco: Never Assessed Sex and Gender Information Value Date Recorded Sex Assigned at Not on file Legal Sex Male 1:09 PM CDT Gender Identity Not on file Sexual Orientation Not on file documented as of this encounter Miscellaneous Notes * Cerner Conversion Note - Mg ProviderMD - 04/17/2019 12:18 PM RESEARCH ANIMAL FACILITY SUPERVISOR UM Authorization Entered On: 04/17/2019 12:19 EST Performed On: 04/17/2019 12:18 EST by Trudi Gaona Rn-Utilization Review Primary Insurance Authorization Authorization and Policy Numbers : Insurance 1 Health Plan: [employer] Policy Number: [id number] Authorization Number: [id number] Insurance 2 Health Plan: MEDICARE Policy Number: [id number] Authorization Number: Insurance Primary Name : Ruben [id number] Authorization Status-Primary : Admit approved Authorization Number-Primary : [id number] Number of Days Authorized-Primary : 1 Day(s) Authorized Service Begin Date-Primary : 04/11/2019 EST Authorized Service End Date-Primary : 04/12/2019 EST Historical Authorization Comments-Primary : Comment 1: Ruben approved per Liliana from [facility] approved inpt (CHARLA BARRAZA RN-Utilization Review 04/17/2019 09:55) Comment 2: Clinicals and AR[employer] Administrators form faxed to [facility]. (MARLENE THORNTON, Rn-Utilization Review 04/12/2019 14:39) Trudi Gaona Rn-Utilization Review - 04/17/2019 12:18 EST documented in this encounter Plan of Treatment Not on file documented as of this encounter Visit Diagnoses Not on filedocumented in this encounter
--- OUTSIDE RECORDS SUMMARY | 2025-01-08 15:11 | XMS_ITS | Encounter Summary ---
Author Organization [employer] ([place], [place], [place], [place], [place]) Address [address] [place] [address] Care Team Providers Care Oil Refinery Operator Name Role Phone Unavailable Primary Care Provider Unavailabl e Encounter Details Date Type Department Care Team (Late st Contact Info) Description 05/08/2019 Transcribed Document [facility] [facility] [place] [facility] [place] [address] ProviderMg MD [facility] [place] [address] Social History Tobacco Use Types Packs/Day Years Used Date Smoking Tobacco: Never Assessed Sex and Gender Information Value Date Recorded Sex Assigned at Not on file Legal Sex Male 1:09 PM CDT Gender Identity Not on file Sexual Orientation Not on file documented as of this encounter Miscellaneous Notes * Cerner Conversion Note - Historical ProviderMD - 05/08/2019 5:00 PM WELDER JOURNEYMAN Chart Check - Review Order Profile Entered On: 05/08/2019 20:13 EST Performed On: 05/08/2019 17:00 EST by EVE NGUYEN RN Chart Check Powerplans Initiated/Discontinued as Appropriate : Yes All Active Orders Reviewed : Yes EVE NGUYEN RN - 05/08/2019 20:13 EST documented in this encounter Plan of Treatment Not on file documented as of this encounter Visit Diagnoses Not on filedocumented in this encounter
--- OUTSIDE RECORDS SUMMARY | 2025-01-08 15:11 | XMS_ITS | Encounter Summary ---
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 Name Role Phone Unavailable Primary Care Provider Unavailabl e Encounter Details Date Type Department Care Team (Late st Contact Info) Description 04/13/2019 Transcribed Document [facility] [place] [facility] [place] [address] ProviderMg MD [facility] [place] [address] Social History Tobacco Use Types Packs/Day Years Used Date Smoking Tobacco: Never Assessed Sex and Gender Information Value Date Recorded Sex Assigned at Not on file Legal Sex Male 1:09 PM CDT Gender Identity Not on file Sexual Orientation Not on file documented as of this encounter Miscellaneous Notes * Cerner Conversion Note - Mg Ritchie MD - 04/13/2019 12:44 PM 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 [place] [id number] JOSE PEARSON :1970 Visit Time:04/12/2019 Your Visit Summary Your Care Team Admitting Physician - SO BURDICK MD-CAR Attending Physician - SO BURDICK MD-CAR Primary Care Physician - FINN, UNKNOWN Referring Physician - SO BURDICK MD-CAR Your Diagnosis Acute on chronic left systolic heart failure Heart failure, unspecified, Heart failure, unspecified These Are Your Goals to get better - Met Discharge Vitals Heart Rate (Monitored) 153 Respiratory Rate 45 Blood Pressure 104/69 What to do next Instructions From Your Care Team Discharge Diet: Discharge Diet: Heart healthy diet Follow-Up Appointments Follow Up with Follow up with clinic When Within 2 to 3 days Follow Up with Follow up with outpatient testing When Within 2 to 3 days Follow Up with Follow up with outpatient testing When Within 2 to 3 days Follow Up with SO BURDICK When Within 1 week Where: [address] [place] [address]- Business (1) Medications What How Much When Instructions Next Dose dofetilide (Tikosyn 250 mcg oral capsule) 1 Capsule(s) Oral Two Times A Day Pickup at [facility] 493 cetirizine (cetirizine 10 mg oral tablet) 1 Tablet(s) Oral Every Day FLUoxetine (FLUoxetine 20 mg oral capsule) 1 Capsule(s) Oral At Bedtime furosemide (Lasix 40 mg oral tablet) 1 Tablet(s) Oral Two Times A Day melatonin (Melatonin 3 mg oral tablet) 1 [...] 1 Tablet(s) Oral Two Times A Day spironolactone 25 Milligram(s) Oral Every Day Pharmacy Information [facility] 493: [address] [place], [place] [id number] [phone] Take your medications faithfully. Do NOT skip [...] Allergies Immunizations This Visit No Immunizations Found Stroke/TIA Instructions Individualized Stroke Risk Factors Individualized Stroke Risk Factors *Q: Congestive heart failure Stroke/TIA Signs/Symptoms to Report Immediately: Sudden onset difficulty speaking, Sudden onset difficulty understanding speech, Sudden onset change in vision, Sudden onset weakness particulary on one side of the body, Sudden onset numbness/tingling, Sudden severe headache, Sudden dizziness or trouble with gait, Call : EMS activation is crucial Mutually Agreed Upon Goals My LDL Level: My LDL Level: Education Materials Heart Disease Prevention Heart disease is a leading cause of . There are many things you can do to help prevent heart disease. Be physically active Physical activity is good for your heart. It helps control your blood pressure, cholesterol levels, and weight. Try to be physically active every day. Ask your health care provider what activities are best for you. Be a healthy weight Extra weight can strain your heart and affect your blood pressure and cholesterol levels. Lose weight with diet and exercise if recommended by your health care provider. Eat heart-healthy foods Follow a healthy eating plan as recommended by your health care provider or dietitian. Heart-healthy foods include: ??? High-fiber foods. These include oat bran, oatmeal, and whole-grain breads and cereals. ??? Fruits and vegetables. Avoid: ??? Alcohol. ??? Fried foods. ??? Foods high in saturated fat. These include meats, butter, whole dairy products, shortening, and coconut or palm oil. ??? Salty foods. These include canned food, luncheon meat, salty snacks, and fast food. Keep your cholesterol levels under control Cholesterol is a substance that is used for many important functions. When your cholesterol levels are high, cholesterol can stick to the insides of your blood vessels, making them narrow or clog. This can lead to chest pain (angina) and a heart attack. Keep your cholesterol levels under control as recommended by your health care provider. Have your cholesterol checked at least once a year. Target cholesterol levels (in mg/dL) for most people are: ??? Total cholesterol below 200. ??? LDL cholesterol below 100. ??? HDL cholesterol above 40 in men and above 50 in women. ??? Triglycerides below 150. Keep your blood pressure under control Having high blood pressure (hypertension) puts you at risk for stroke and other forms of heart disease. Keep your blood pressure under control as recommended by your health care provider. Ask your health care provider if you need treatment to lower your blood pressure. If you are 18???39 years of age, have your blood pressure checked every 3???5 years. If you are 40 years of age or older, have your blood pressure checked every year. Do not use tobacco products Tobacco smoke can damage your heart and blood vessels. Do not use any tobacco products including cigarettes, chewing tobacco, or electronic cigarettes. If you need help quitting, ask your health care provider. Take medicines as directed Take medicines only as directed by your health care provider. Ask your health care provider whether you should take an aspirin every day. Taking aspirin can help reduce your risk of heart disease and stroke. Where to find more information: To find out more about heart disease, visit the [employer]'s website at www.americanheart.org This information is not intended to replace advice given to you by your health care provider. Make sure you discuss any questions you have with your health care provider. Document Released: 10/04/2004 Document Revised: 07/20/2016 Document Reviewed: 04/16/2014 [employer] Interactive Patient Education ?? 2019 [employer] Cardiac Rehabilitation What is cardiac rehabilitation? Cardiac rehabilitation is a treatment program that helps improve the health and well-being of people who have heart problems. Cardiac rehabilitation includes exercise training, education, and counseling to help you get stronger and return to an active lifestyle. This program can help you get better faster and reduce any future hospital stays. Why might I need cardiac rehabilitation? Cardiac rehabilitation programs can help when you have or have had: ??? A heart attack. ??? Heart failure. ??? Peripheral artery disease. ??? Coronary artery disease. ??? Angina. ??? Lung or breathing problems. Cardiac rehabilitation programs are also used when you have had: ??? Coronary artery bypass graft surgery. ??? Heart valve replacement. ??? Heart stent placement. ??? Heart transplant. ??? Aneurysm repair. What are the benefits of cardiac rehabilitation? Cardiac rehabilitation can help: ??? Reduce problems like chest pain and trouble breathing. ??? Change risk factors that contribute to heart disease, such as: ? Smoking. ? High blood pressure. ? High cholesterol. ? Diabetes. ? Being out of shape or not active. ? Weighing more than 30% higher than your ideal weight. ? Diet. ??? Improve your mental outlook so you feel: ? More hopeful. ? Better about yourself. ? More confident about taking care of yourself. ??? Get support from health experts as well as other people with similar problems. ??? Learn how to manage and understand your medicines. ??? Teach your family about your condition and how to participate in your recovery. What happens in cardiac rehabilitation? You will be assessed by a cardiac rehabilitation team. They will check your health history and do a physical exam. You may need blood tests, stress tests, and other evaluations to make sure that you are ready to start cardiac rehabilitation. The cardiac rehabilitation team works with you to make a plan based on your health and goals. Your program will be tailored to fit you and your needs and may change as you progress. You may work with a health care team that includes: ??? Doctors. ??? Nurses. ??? Dietitians. ??? Psychologists. ??? Exercise specialists. ??? Physical and occupational therapists. What are the phases of cardiac rehabilitation? A cardiac rehabilitation program is often divided into phases. You advance from one phase to the next. Phase One This phase starts while you are still in the hospital. You may start by walking in your room and then in the [place]. You may start some simple exercises with a therapist. Phase Two This phase begins when you go home or to another facility. This phase may last 8???12 weeks. You will travel to a cardiac rehabilitation center or another place where rehabilitation is offered. You will slowly increase your activity level while being closely watched by a nurse or therapist. Exercises may include a combination of strength or resistance training and ???cardio?? or aerobic movement on a treadmill or other machines. Your condition will determine how often and how long these sessions last. In phase two, you may learn how to cook healthy meals, control your blood sugar, and manage your medicines. You may need help with scheduling or planning how and when to take your medicines. If you have questions about your medicines, it is very important that you talk to your health care provider. Phase Three This phase continues for the rest of your life. There will be less supervision. You may still participate in cardiac rehabilitation activities or become part of a group in your community. You may benefit from talking about your experience with other people who are facing similar challenges. Get help right away if: ??? You have severe chest discomfort, especially if the pain is crushing or pressure-like and spreads to your arms, back, neck, or jaw. Do not wait to see if the pain will go away. ??? You have weakness or numbness in your face, arms, or legs, especially on one side of the body. ??? Your speech is slurred. ??? You are confused. ??? You have a sudden severe headache or loss of vision. ??? You have shortness of breath. ??? You are sweating and have nausea. ??? You feel dizzy or faint. ??? You are fatigued. These symptoms may represent a serious problem that is an emergency. Do not wait to see if the symptoms will go away. Get medical help right away. Call your local emergency services (911 in the [place] Do not drive yourself to the hospital. This information is not intended to replace advice given to you by your health care provider. Make sure you discuss any questions you have with your health care provider. Document Released: 11/29/2008 Document Revised: 09/12/2017 Document Reviewed: 01/04/2016 Elsevier Interactive Patient Education ?? 2019 [employer] Emergency Awareness and Preventative Care STROKE is an EMERGENCY Every Minute Counts Act FAST and Check for these signs: FACE Does the face look uneven? ARM Does one arm drift down? SPEECH Does their speech sound strange? TIME Call at any sign of stroke Stroke Risk Factors Atrial Fibrillation (irregular heartbeat) Diabetes Family history of stroke Heart Disease Heavy alcohol use High Blood Pressure High Cholesterol Physical inactivity and obesity Smoking Cigarette Smoking The facts are clear, cigarette smoking will shorten your life. Smoking can cause many illnesses along the way. As a healthcare provider, we recommend that you stop smoking. Assistance with quitting is available by contacting 2-882-PWZGNOW. This is a free resource providing counseling, support, and referral. Or you may contact your personal physician. [employer] Suicide Prevention Lifeline: The National Suicide Prevention Lifeline is a national network of local crisis centers that provides free and confidential emotional support to people in suicidal crisis or emotional distress 24 hours a day, 7 days a week. Don't Wait! Stop a Heart Attack Before it Starts What is a heart attack? A heart attack is damage or to a part of the heart from severely decreased or lack of blood flow to the heart. Over time, arteries can become narrow from the buildup of fat and cholesterol, which is called plaque. The plaque can rupture causing a blood clot to form. When the blood clot forms, the artery can become severely narrowed or completely blocked, causing a heart attack. Heart attack is the leading cause of in the [place]. 85% of muscle damage occurs within the first 2 hours. Delay in the recognition of heart attack symptoms increases the chances of . Know the early symptoms of a heart attack: Nausea Feeling of fullness in chest Jaw Pain Pain that travels down one or both arms Fatigue/being tired Anxiety Back Pain Chest pressure, squeezing, or discomfort Shortness of breath Sweating, or a cold sweat Feeling of impending doom There are unusual signs of a heart attack, too! Women, the elderly, and diabetics may present with atypical symptoms: Fainting/dizziness Weakness Confusion Risk Factors for a Heart Attack Some heart disease risk factors, such as age and family history, cannot be changed. Others, like smoking and lack of exercise, can be changed. Smoking High Cholesterol High Blood Pressure Family History Obesity Age Gender (Males are at higher risk) Lack of Exercise Diabetes Diet Stress Excessive Alcohol Intake If you or someone you know is experiencing the signs and symptoms of a heart attack, DON???T DELAY. Call immediately and seek help. If someone collapses, perform CPR! Do not attempt to drive if you are having symptoms of heart attack. Hands-Only CPR Why Hands-Only CPR? Hands-Only CPR has been shown to be as effective as conventional CPR for cardiac arrests that occur outside of a hospital. Survival depends on immediately receiving CPR from someone nearby. How do you perform Hands-Only CPR? There are two easy steps: Call 9-1-1 if you see a teen or adult collapse Push hard and fast in the center of the chest at a beat of 100 beats per minute. Save a life! 4 WAYS TO GET AHEAD OF SEPSIS SEPSIS is a MEDICAL EMERGENCY. Time matters! Infections put you and your family at risk for a life-threatening condition called sepsis. Sepsis is the body's extreme response to an infection. It is life-threatening, and without timely treatment, sepsis can rapidly lead to tissue damage, organ failure, and . Sepsis happens when an infection you already have-in your skin, lungs, urinary tract or somewhere else-triggers a chain reaction throughout your body. 1 PREVENT INFECTIONS Take good care of chronic conditions. Talk to your doctor about getting the recommended vaccines. 2 PRACTICE GOOD HYGIENE Wash your hands frequently. Keep cuts or open sores clean and covered until they are healed. 3 KNOW THE SYMPTOMS Confusion or disorientation Shortness of breath High heart rate Fever, shivering, or feeling very cold Extreme pain or discomfort Clammy or sweaty skin 4 ACT FAST Get medical care IMMEDIATELY if you suspect sepsis or if you have an infection that is not getting better or is getting worse. To learn more about sepsis and how to prevent infections, visit www.cdc.gov/sepsis. Test Results Laboratory or Other Results This Visit (last charted value for your 04/12/2019 visit) Hematology 04/13/2019 4:05 AM WBC: 9.1 K/uL -- Normal range between ( 3.9 and 10.0 ) RBC: 4.72 Million/uL -- Normal range between ( 4.63 and 6.08 ) Hct: 42.0 % -- Normal range between ( 40.1 and 51.0 ) Hgb: 14.4 Gram/dL -- Normal range between ( 13.7 and 17.5 ) Platelet Count: 257 K/uL -- Normal range between ( 163 and 369 ) MCH: 30.5 pg -- Normal range between ( 25.6 and 32.2 ) MCHC: 34.3 Gram/dL -- Normal range between ( 32.3 and 36.5 ) MCV: 89.0 fL -- Normal range between ( 79.0 and 94.8 ) Slide Review: No RDW: 14.0 % -- Normal range between ( 11.6 and 14.4 ) MPV: 9.7 fL -- Normal range between ( 9.4 and 12.4 ) 04/11/2019 6:50 PM Eos %: 3.8 % -- Normal range between ( 1.0 and 7.0 ) [place] #: 0.93 K/uL -- Normal range between ( 0.24 and 0.82 ) Eos #: 0.27 K/uL -- Normal range between ( 0.04 and 0.54 ) [place] %: 13.1 % -- Normal range between ( 4.7 and 12.5 ) Baso %: 0.7 % -- Normal range between ( 0.0 and 1.0 ) Baso #: 0.05 K/uL -- Normal range between ( 0.01 and 0.08 ) Neut %: 56.2 % -- Normal range between ( 34.0 and 71.0 ) Neut #: 3.99 K/uL -- Normal range between ( 1.56 and 6.13 ) Lymph %: 26.1 % -- Normal range between ( 19.3 and 53.0 ) Reticulocyte: 2 % -- Normal range between ( 0 and 2 ) Lymph #: 1.85 K/uL -- Normal range between ( 1.18 and 3.74 ) IG#: 0 x10(3)/uL IG%: 0 % -- Normal range between ( 0 and 1 ) Urinalysis 04/11/2019 10:27 PM Urine Nitrite: Negative Urine Leukocyte Esterase: Negative Urine Appearance: Clear Urine Glucose Dipstick: Negative Urine Blood Dipstick: Negative Urine Type: U CleanCatch Urine Urobilinogen Dipstick: 2.0 EU/dL -- Normal range between ( 0.2 and 1.0 ) Urine Protein Dipstick: Negative Urine Color: Yellow Urine Ketones Dipstick: Negative Urine pH Dipstick: 6.0 -- Normal range between ( 6.0 and 8.0 ) Urine Bilirubin Dipstick: Negative Urine Specific [place]: 1.018 -- Normal range between ( 1.005 and 1.030 ) Urine Chemistry 04/11/2019 10:27 PM Osmolality Urine: 595 mOsm/kg -- Normal range between ( 250 and 900 ) Sodium Ur [place]: 64 mMole/Liter General Chemistry 04/13/2019 4:05 AM Creatinine Level: 0.95 mg/dL -- Normal range between ( 0.70 and 1.30 ) Sodium Level: 134 mmol/L -- Normal range between ( 136 and 146 ) Potassium Level: 3.2 mmol/L -- Normal range between ( 3.5 and 5.1 ) Chloride Level: 103 mmol/L -- Normal range between ( 102 and 112 ) Carbon Dioxide Level: 25 mmol/L -- Normal range between ( 21 and 32 ) Anion Gap: 9 -- Normal range between ( 9 and 20 ) Bun/Creatinine: 21.1 -- Normal range between ( 8.0 and 20.0 ) Calcium Level: 8.5 mg/dL -- Normal range between ( 8.5 and 10.1 ) eGFR : >60 mL/min/1.73m2 eGFR NonAfrican: >60 mL/min/1.73m2 Glucose Level: 92 mg/dL -- Normal range between ( 74 and 106 ) Blood Urea Nitrogen: 20 mg/dL -- Normal range between ( 7 and 22 ) 04/11/2019 6:50 PM Bilirubin Total: 2.8 mg/dL -- Normal range between ( 0.2 and 1.3 ) A/G Ratio: 1.1 -- Normal range between ( 1.1 and 2.5 ) ALT: 24 Units/Liter -- Normal range between ( 12 and 78 ) AST: 13 Units/Liter -- Normal range between ( 5 and 37 ) Globulin: 3.3 Gram/dL -- Normal range between ( 1.5 and 4.5 ) Alk Phos: 63 Units/Liter -- Normal range between ( 27 and 136 ) Magnesium Level: 2.2 mg/dL -- Normal range between ( 1.5 and 2.4 ) Osmolality Serum: 291 mOsm/kg -- Normal range between ( 280 and 300 ) Protein Total: 7.0 Gram/dL -- Normal range between ( 6.4 and 8.2 ) Albumin Level: 3.7 Gram/dL -- Normal range between ( 3.4 and 5.0 ) Cardiac Specific Markers 04/13/2019 4:00 AM ProBNP: 4539 pg/mL -- Normal range between ( 0 and 125 ) 04/12/2019 3:57 AM Troponin I Ultra: 0.017 ng/mL -- Normal range between ( 0.015 and 0.045 ) Coagulation 04/11/2019 6:50 PM INR: 1.3 -- Normal range between ( 0.9 and 1.1 ) PTT: PTT PT: 13.4 Second(s) -- Normal range between ( 9.6 and 11.5 ) Lipid Studies 04/12/2019 3:57 AM Cholesterol Tot: 97 mg/dL -- Normal range between ( 0 and 199 ) Cholesterol HDL: 24.0 mg/dL Cholesterol LDL Calculation: 59.6 mg/dL -- Normal range between ( 0.0 and 99.0 ) Cholesterol VLDL Calculation: 13.4 mg/dL -- Normal range between ( 5.0 and 40.0 ) Cholesterol/HDL Ratio: 4.0 -- Normal range between ( 0.0 and 3.2 ) Triglyceride: 67 mg/dL -- Normal range between ( 0 and 249 ) LDL/HDL Ratio: 2.5 -- Normal range between ( 0.0 and 3.6 ) Endocrinology 04/11/2019 6:50 PM TSH: 1.910 mcInt Units/mL -- Normal range between ( 0.358 and 3.740 ) Iron Studies 04/11/2019 6:50 PM % Iron Saturation: 18.4 % -- Normal range between ( 15.0 and 55.0 ) Ferritin Level: 101.0 ng/mL -- Normal range between ( 26.0 and 388.0 ) TIBC: 397.0 mcg/dL -- Normal range between ( 250.0 and 450.0 ) Iron Level: 73 mcg/dL -- Normal range between ( 65 and 175 ) Vitamin Chemistry 04/11/2019 6:50 PM Folate Level: 15.46 ng/mL -- Normal range between ( 5.38 and 24.00 ) Vitamin B12 Level: 329 pg/mL -- Normal range between ( 193 and 986 ) Diagnostic Radiology 04/11/2019 7:18 PM CR Chest 1 Vw Portable: CR Chest 1 Vw Portable Patient Name:JOSE PEARSON I have received and understand this information and was given the opportunity to ask questions. Patient/Service Counselor Name: Patient/Service Counselor Signature: Relationship to Patient: Clinician/Hospital Service Counselor Signature: Date: Electronically signed by Jackie, [facility] Conversion Director Of Clinical Services Jessica at 06/19/2022 11:10 PM CDT documented in this encounter Plan of Treatment Not on file documented as of this encounter Visit Diagnoses Not on filedocumented in this encounter
--- OUTSIDE RECORDS SUMMARY | 2025-01-08 15:11 | XMS_ITS | Encounter Summary ---
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 Role Phone Unavailable Primary Care Provider Unavailabl e Encounter Details Date Type Department Care Team (Late st Contact Info) Description 04/15/2019 Transcribed Document [facility] [place] [facility] [place] [address] ProviderMg MD [address] [place], [place] [id number] Social History Tobacco Use Types Packs/Day Years Used Date Smoking Tobacco: Never Assessed Sex and Gender Information Value Date Recorded Sex Assigned at Not on file Legal Sex Male 1:09 PM CDT Gender Identity Not on file Sexual Orientation Not on file documented as of this encounter Miscellaneous Notes * Cerner Conversion Note - Historical ProviderMD - 04/15/2019 11:53 AM [employer] [facility] Authorization Entered On: 04/15/2019 11:53 EST Performed On: 04/15/2019 11:53 EST by CHARLA BARRAZA RN-Utilization Review Primary Insurance Authorization Authorization and Policy Numbers : Insurance 1 Health Plan: [employer] Policy Number: [id number] Authorization Number: Insurance 2 Health Plan: MEDICARE Policy Number: [id number] Authorization Number: Insurance Primary Name : Ruben [id number] Authorization Status-Primary : Awaiting callback Authorized Service Begin Date-Primary : 04/11/2019 EST Historical Authorization Comments-Primary : Comment 1: Clinicals and [facility] Administrators form faxed to [facility]. (MARLENE THORNTON Rn-Utilization Review 04/12/2019 14:39) CHARLA BARRAZA RN-Utilization Review - 04/15/2019 11:53 EST Electronically signed by Jackie [facility] Conversion Hose Coupling Joiner Jessica at 06/19/2022 11:00 PM CDT documented in this encounter Plan of Treatment Not on file documented as of this encounter Visit Diagnoses Not on filedocumented in this encounter
--- OUTSIDE RECORDS SUMMARY | 2025-01-08 15:11 | XMS_ITS | Encounter Summary ---
Author Organization [facility] Address [address] [place] [address] Care Team Providers Care Aquaculture Director Name Role Phone Herberth Perez MD Primary Care Provider [phone] Katrin Oviedo RN Unavailable Zaida Lafleur SURFACE SUPERVISOR Unavailable [phone] Gracia Petersen SURFACE SUPERVISOR Unavailable [phone] Yunior Solorzano MD Unavailable [phone] Ross Baez DO Unavailable [phone] Edith Aleman RN Unavailable Unavailable Reason for Visit * Reason Comments Med Refill Encounter Details Date Type Department Care Team (Late st Contact Info) Description 11/14/2021 Refill [facility] [place] [address] [place] [address] Gracia Petersen, SURFACE SUPERVISOR [address] [place] [address] Social History Tobacco Use Types [...] drink first t janine in the morning (EYE-HEEL SHAPER) to steady your nerves or to get [...] AM EST Appointment Cardiac Imaging [address] [place] [address] 01/28/2025 10:00 AM EST Ancillary Procedure [facility] [place] [address] [place] [address] documented as of this encounter Visit Diagnoses [...] documented as of this encounter Care Teams Aquaculture Director Relationship Specialty Start Date End Date Herberth Perez MD [address] [place] [address] [place] [address] PCP - General 07/17/20 Katrin Oviedo, RN [facility] [address] [place] [address] VAD Coordinator Cardiology 08/06/20 10/21/24 Zaida Lafleur APRN [address] [place] [address] Nurse Practitioner Advanced Heart Failure and Transplant Cardiology 08/06/20 06/11/23 Gracia Petersen APRN [address] [place] [address] Nurse Practitioner Internal Medicine 08/06/20 Yunior Solorzano MD [address] [place] [address] Consulting Physician Gastroenterology 07/18/22 Ross Baez, DO [address] [address] Surgeon Cardiothoracic Surgery 07/18/22 Edith Aleman, RENAL DIALYSIS TECHNICIAN VAD Coordinator 10/14/24 documented as of this encounter
--- OUTSIDE RECORDS SUMMARY | 2025-01-08 15:11 | XMS_ITS | Encounter Summary ---
Author Organization [employer] ([place], [place], [place], [place], [place]) Address [address] [place] [address] Care Team Providers Care Explosive Specialist Name Role Phone Unavailable Primary Care Provider Unavailabl e Encounter Details Date Type Department Care Team (Late st Contact Info) Description 05/03/2019 Transcribed Document [facility] [place] [facility] [place] [address] ProviderMg MD [facility] [place] [address] Social History Tobacco Use Types Packs/Day Years Used Date Smoking Tobacco: Never Assessed Sex and Gender Information Value Date Recorded Sex Assigned at Not on file Legal Sex Male 1:09 PM CDT Gender Identity Not on file Sexual Orientation Not on file documented as of this encounter Miscellaneous Notes * [employer]ner Conversion Note - Historical ProviderMD - 05/03/2019 5:00 AM MASTER ELECTRICIAN Chart Check - Review Order Profile Entered On: 05/03/2019 4:03 EST Performed On: 05/03/2019 5:00 EST by Carlos Ojeda RN Chart Check Powerplans Initiated/Discontinued as Appropriate : Yes All Active Orders Reviewed : Yes Carlos Ojeda RN - 05/03/2019 4:03 EST Electronically signed by Morales [facility] Conversion District Administrative Assistant Cerner at 06/19/2022 11:11 PM CDT documented in this encounter Plan of Treatment Not on file documented as of this encounter Visit Diagnoses Not on filedocumented in this encounter
--- OUTSIDE RECORDS SUMMARY | 2025-01-08 15:11 | XMS_ITS | Encounter Summary ---
Author Organization [employer] ([place], [place], [place], [place], [place]) Address [address] [place] [address] Care Team Providers Care Forensic Manager Name Role Phone Unavailable Primary Care Provider Unavailabl e Encounter Details Date Type Department Care Team (Late st Contact Info) Description 04/13/2019 Transcribed Document [facility] [place] Family Medicine [address] [place] [address] ProviderMg MD [facility] [place], [place] [address] Social History Tobacco Use Types Packs/Day Years Used Date Smoking Tobacco: Never Assessed Sex and Gender Information Value Date Recorded Sex Assigned at Not on file Legal Sex Male 1:09 PM CDT Gender Identity Not on file Sexual Orientation Not on file documented as of this encounter Miscellaneous Notes * Cerner Conversion Note - Historical ProviderMD - 04/13/2019 2:00 AM MANAGER REVIEW Bolt Loader Details Entered On: 04/13/2019 5:10 EST Performed On: 04/13/2019 2:00 EST by Duncan Rudolph Rn-Resource Order Details Transport Mode Order Detail : Wheelchair Isolation Precautions Order Detail : Standard Precautions Order Detail : N/A IV Order Detail : 1 Oxygen Order Detail : 0 Nurse Collect Order Detail : 1 Lift/Transfer : Independent Central Line Order Detail : No Room Service : Appropriate Arterial Line : No Duncan Rudolph Rn-Resource - 04/13/2019 5:10 EST documented in this encounter Plan of Treatment Not on file documented as of this encounter Visit Diagnoses Not on filedocumented in this encounter
--- OUTSIDE RECORDS SUMMARY | 2025-01-08 15:11 | XMS_ITS | Encounter Summary ---
Author Organization [employer] ([place], [place], [place], [place], [place]) Address [address] [place] [address] Care Team Providers Care Program Research Specialist Name Role Phone Unavailable Primary Care Provider Unavailabl e Encounter Details Date Type Department Care Team (Late st Contact Info) Description 06/26/2018 Transcribed Document [facility] [place] [facility] [place] [address] ProviderMg MD [facility] [place] [address] Social History Tobacco Use Types Packs/Day Years Used Date Smoking Tobacco: Never Assessed Sex and Gender Information Value Date Recorded Sex Assigned at Not on file Legal Sex Male 1:09 PM CDT Gender Identity Not on file Sexual Orientation Not on file documented as of this encounter Miscellaneous Notes * Cerner Conversion Note - Mg ProviderMD - 06/26/2018 2:26 PM CDT Nursing Discharge Summary Entered On: 06/26/2018 14:27 EDT Performed On: 06/26/2018 14:26 EDT by DENVER NICOLE animal nutrition consultant Documentation Discharge Date/Time : 06/26/2018 14:42 EDT DENVER NICOLE RN - 06/27/2018 9:02 EDT Patient Disposition, General : Discharge Discharge To : Home with ambulatory/outpatient follow-up Mode Of Departure, General Discharge : Private vehicle Accompanied By, Discharge : Significant other IV Discontinued : Yes Medications Given to Patient : No Personal Belongings With Patient : Yes Pt's Own Supply of Medications Returned : No Prescriptions Given to Patient : No Discharge Instructions Reviewed With, Opportunity For Questions Given : Patient, Significant other Patient Education Completed : Yes Teaching Method : Explanation, Printed materials, Teach back method Teaching Evaluation : Verbalizes understanding Education Comment : In a hurry to go and threatening to leave before completing the DC education. Worker's Compensation Paperwork Completed : No DENVER NICOLE RN - 06/26/2018 14:26 EDT documented in this encounter Plan of Treatment Not on file documented as of this encounter Visit Diagnoses Not on filedocumented in this encounter
--- OUTSIDE RECORDS SUMMARY | 2025-01-08 15:11 | XMS_ITS | Encounter Summary ---
Author Organization [employer] ([place], [place], [place], [place], [place]) Address [address] [place] [address] Care Team Providers Care Master Motorcycle Technician Name Role Phone Unavailable Primary Care Provider Unavailabl e Encounter Details Date Type Department Care Team (Late st Contact Info) Description 04/13/2019 Transcribed Document [facility] [place] [facility] [place] [address] ProviderMg MD [facility] [place] [address] Social History Tobacco Use Types Packs/Day Years Used Date Smoking Tobacco: Never Assessed Sex and Gender Information Value Date Recorded Sex Assigned at Not on file Legal Sex Male 1:09 PM CDT Gender Identity Not on file Sexual Orientation Not on file documented as of this encounter Miscellaneous Notes * Cerner Conversion Note - Mg ProviderMD - 04/13/2019 12:39 PM MECHANICAL ASSEMBLER Stroke/Warfarin Instructions Entered On: 04/13/2019 12:39 EST Performed On: 04/13/2019 12:39 EST by Peg Huynh RN Stroke/Warfarin Instructions Stroke/TIA Discharge Ins : Open Warfarin Discharge Ins : N/A Peg Huynh RN - 04/13/2019 12:39 EST Stroke/TIA Discharge Instructions Individualized Stroke Risk Factors *Q : Congestive heart failure Stroke Education Handouts Given *Q : Yes Peg Huynh RN - 04/13/2019 12:39 EST Stroke Education Materials Given-Grid Activation of EMS *Q : Verbalizes understanding Follow-up Care After Discharge *Q : Verbalizes understanding Medications prescribed at DC *Q : Verbalizes understanding Risk Factors for Stroke *Q : Verbalizes understanding Warning S&S of Stroke *Q : Verbalizes understanding Peg Huynh RN - 04/13/2019 12:39 EST Stroke/TIA Signs/Symptoms to Report Immediately : Sudden onset difficulty speaking, Sudden onset difficulty understanding speech, Sudden onset change in vision, Sudden onset weakness particulary on one side of the body, Sudden onset numbness/tingling, Sudden severe headache, Sudden dizziness or trouble with gait, Call : EMS activation is crucial My LDL Level: : LDL Level Cholesterol LDL Calculation: 59.6 mg/dL (04/12/19 03:57:00) Peg Huynh RN - 04/13/2019 12:39 EST Electronically signed by Jackie, [facility] Conversion Correctional Nurse Cerner at 06/19/2022 10:49 PM CDT documented in this encounter Plan of Treatment Not on file documented as of this encounter Visit Diagnoses Not on filedocumented in this encounter
--- OUTSIDE RECORDS SUMMARY | 2025-01-08 15:11 | XMS_ITS | Encounter Summary ---
Author Organization [employer] ([place], [place], [place], [place], [place]) Address [address] [place] [address] Care Team Providers Care Academic Affairs Director Name Role Phone Unavailable Primary Care Provider Unavailabl e Encounter Details Date Type Department Care Team (Late st Contact Info) Description 05/03/2019 Transcribed Document [facility] [place] [facility] [address] ProviderMg MD [facility] [place], [place] [address] Social History Tobacco Use Types Packs/Day Years Used Date Smoking Tobacco: Never Assessed Sex and Gender Information Value Date Recorded Sex Assigned at Not on file Legal Sex Male 1:09 PM CDT Gender Identity Not on file Sexual Orientation Not on file documented as of this encounter Miscellaneous Notes * Cerner Conversion Note - Mg ProviderMD - 05/03/2019 10:52 AM SCIENCE LIAISON Initial Discharge Planning Entered On: 05/03/2019 10:56 EST Performed On: 05/03/2019 10:52 EST by TANVIR THAYER Rn-Handbag Designer Initial Assessment I Previously Documented Living Environment : No qualifying data available. Living Situation : Home Patient Lives With : Spouse Emergency Contact #1 : Deidre Pearson Emergency Contact #1 Emergency Contact #1 Relationship : Emergency Contact #2 : none Emergency Contact #2 Phone Number : none Emergency Contact #2 Relationship : none TANVIR THAYER Rn-Handbag Designer - 05/03/2019 10:52 EST Initial Assessment II Current Home Treatments and Equipment : CPAP TANVIR THAYER Rn-Handbag Designer - 05/03/2019 10:52 EST Discharge Needs I Anticipated Discharge Date : 05/04/2019 EST Anticipated Discharge To, CM : Home independently Current Home Treatment/Equipment : Current Home Treatment/Equipment No qualifying data available. Post Acute/Home Treatments : CPAP Documentation Status Complete : Yes TANVIR THAYER Rn-Handbag Designer - 05/03/2019 10:52 EST Discharge Needs II Professional Skilled Services : Professional Skilled Services No qualifying data available. TANVIR THAYER Rn-Handbag Designer - 05/03/2019 10:52 EST Narrative Note Narrative Note : Patient from MD office. Patient has PAcemaker ICD per nurse in multidisciplinary rounds EF is < 20. Lives with spouse is IADL's has CPap at home. No acute needs identified by CM he is a high risk for readmission. CM will follow. TANVIR THAYER Rn-Handbag Designer - 05/03/2019 10:52 EST documented in this encounter Plan of Treatment Not on file documented as of this encounter Visit Diagnoses Not on filedocumented in this encounter
--- OUTSIDE RECORDS SUMMARY | 2025-01-08 15:11 | XMS_ITS | Encounter Summary ---
Author Organization [employer] ([place], [place], [place], [place], [place]) Address [address] [place] [address] Care Team Providers Care Content Coordinator Name Role Phone Unavailable Primary Care Provider Unavailabl e Encounter Details Date Type Department Care Team (Late st Contact Info) Description 05/02/2019 Transcribed Document [facility] [place] Family Medicine [address] [place] [address] ProviderMg MD [facility] [place], [place] [address] Social History Tobacco Use Types Packs/Day Years Used Date Smoking Tobacco: Never Assessed Sex and Gender Information Value Date Recorded Sex Assigned at Not on file Legal Sex Male 1:09 PM CDT Gender Identity Not on file Sexual Orientation Not on file documented as of this encounter Miscellaneous Notes * Cerner Conversion Note - Mg ProviderMD - 05/02/2019 4:10 PM FOOD SERVICE STEWARD Pain Assessment Entered On: 2019 15:50 EST Performed On: 2019 8:41 EST by EVE NGUYEN RN Intervention Information: acetaminophen-HYDROcodone Performed by Reyna Nicolas RN on 2019 07:41:00 EST acetaminophen-HYDROcodone,1Tab Oral,Pain (Moderate 4-6) Pain Assessment Pain Assessment : Follow-up assessment Pain Scale Goal : 0 Pain Scale Used : 0-10 Scale EVE NUGYEN RN - 2019 15:50 EST Pain Scale Intensity : 3 EVE NGUYEN RN - 2019 15:50 EST Image 4 - Images currently included in the form version of this document have not been included in the text rendition version of the form. documented in this encounter Plan of Treatment Not on file documented as of this encounter Visit Diagnoses Not on filedocumented in this encounter
--- OUTSIDE RECORDS SUMMARY | 2025-01-08 15:11 | XMS_ITS | Encounter Summary ---
Author Organization [employer] ([place], [place], [place], [place], [place]) Address [address] [place] [address] Care Team Providers Care Staff Physical Therapist Name Role Phone Unavailable Primary Care Provider Unavailabl e Encounter Details Date Type Department Care Team (Late st Contact Info) Description 04/13/2019 Transcribed Document [facility] [place] [facility] [place] [address] ProviderMg MD [facility] [place] [address] Social History Tobacco Use Types Packs/Day Years Used Date Smoking Tobacco: Never Assessed Sex and Gender Information Value Date Recorded Sex Assigned at Not on file Legal Sex Male 1:09 PM CDT Gender Identity Not on file Sexual Orientation Not on file documented as of this encounter Miscellaneous Notes * Cerner Conversion Note - Mg ProviderMD - 04/13/2019 12:36 PM LAWN SPRINKLER INSTALLER Nursing Discharge Summary Entered On: 04/13/2019 12:37 EST Performed On: 04/13/2019 12:36 EST by Peg Huynh career representative Documentation Discharge Date/Time : 04/13/2019 13:15 EST Patient Disposition, General : Discharge Discharge To : Home with ambulatory/outpatient follow-up Peg Huynh RN - 04/13/2019 12:36 EST Electronically signed by Jackie [facility] Conversion Agribusiness Professor Jessica at 06/19/2022 11:05 PM CDT documented in this encounter Plan of Treatment Not on file documented as of this encounter Visit Diagnoses Not on filedocumented in this encounter
--- OUTSIDE RECORDS SUMMARY | 2025-01-08 15:11 | XMS_ITS | Encounter Summary ---
Author Organization [employer] ([place], [place], [place], [place], [place]) Address [address] [place] [address] Care Team Providers Care Bacteriologist Fishery Name Role Phone Unavailable Primary Care Provider Unavailabl e Encounter Details Date Type Department Care Team (Late st Contact Info) Description 05/04/2019 Transcribed Document [facility] [place] [address] [place] [address] ProviderMg MD [facility] [place] [address] Social History Tobacco Use Types Packs/Day Years Used Date Smoking Tobacco: Never Assessed Sex and Gender Information Value Date Recorded Sex Assigned at Not on file Legal Sex Male 1:09 PM CDT Gender Identity Not on file Sexual Orientation Not on file documented as of this encounter Miscellaneous Notes * Cerner Conversion Note - Historical ProviderMD - 05/04/2019 5:00 AM TRAY DELIVERY AIDE Height and Weight, Routine Entered On: 05/04/2019 6:35 EST Performed On: 05/04/2019 5:00 EST by Carlos Ojeda RN Height and Weight, Routine Routine Weight Source : Chair scale Routine Weight Entry Format : Metric Routine Weight, Kilograms : 104.5 kg(Converted to: 230 lb 6 oz) Routine Weight Calculation : 104.5 kg Height Source : Stated Height Entry Format : [place] Height, Feet : 6 ft Height, Inches : 0 Inch Clinical Height : 182.88 cm Body Surface Area (BSA), Routine : 2.26 m2 Body Mass Index (BMI), Routine : 31.25 kg/m2 Carlos Ojeda RN - 05/04/2019 6:34 EST Electronically signed by Jackie [facility] Conversion Supervisor Clam Bed Cerner at 06/19/2022 11:02 PM CDT documented in this encounter Plan of Treatment Not on file documented as of this encounter Visit Diagnoses Not on filedocumented in this encounter
--- OUTSIDE RECORDS SUMMARY | 2025-01-08 15:11 | XMS_ITS | Encounter Summary ---
Author Organization [employer] ([place], [place], [place], [place], [place]) Address [address] [place] [address] Care Team Providers Care Technical Fellow Name Role Phone Unavailable Primary Care Provider Unavailabl e Encounter Details Date Type Department Care Team (Late st Contact Info) Description 04/12/2019 Transcribed Document [facility] [place] [address] [place] [address] ProviderMg MD [facility] [place] [address] Social History Tobacco Use Types Packs/Day Years Used Date Smoking Tobacco: Never Assessed Sex and Gender Information Value Date Recorded Sex Assigned at Not on file Legal Sex Male 1:09 PM CDT Gender Identity Not on file Sexual Orientation Not on file documented as of this encounter Miscellaneous Notes * Cerner Conversion Note - Historical ProviderMD - 04/12/2019 9:28 AM MANAGER CARDIAC CATH Therapy Screen, OT Entered On: 04/12/2019 11:09 EST Performed On: 04/12/2019 9:28 EST by NAHUM CORNELIUS OTR/Kaushal Therapy Screen, OT Medical Chart Reviewed : Yes Person Providing Information : Patient, Spouse Screen Completed : Yes Recommendations for Evaluation OT : Do not recommend Occupational Therapy evaluation Therapy Screen Findings, OT : Patient at functional baseline Recommendations Upon Discharge : None Additional Therapy Screen Comment : Pt reports he is I with ADLs, functional mobility, and denies any need for therapy at this time; confirms this. No further skilled OT indicated. NAHUM CORNELIUS OTR/Kaushal - 04/12/2019 11:08 EST documented in this encounter Plan of Treatment Not on file documented as of this encounter Visit Diagnoses Not on filedocumented in this encounter
--- OUTSIDE RECORDS SUMMARY | 2025-01-08 15:11 | XMS_ITS | Encounter Summary ---
Author Organization [employer] ([place], [place], [place], [place], [place]) Address [address] [place] [address] Care Team Providers Care Roll Hand Name Role Phone Unavailable Primary Care Provider Unavailabl e Encounter Details Date Type Department Care Team (Late st Contact Info) Description 04/12/2019 Transcribed Document [facility] [place] Family [place] [facility] [place] [address] ProviderMg MD [facility] [place] [address] Social History Tobacco Use Types Packs/Day Years Used Date Smoking Tobacco: Never Assessed Sex and Gender Information Value Date Recorded Sex Assigned at Not on file Legal Sex Male 1:09 PM CDT Gender Identity Not on file Sexual Orientation Not on file documented as of this encounter Miscellaneous Notes * Cerner Conversion Note - Historical ProviderMD - 04/12/2019 11:57 [address]ES TEACHER [facility] PT Charges Entered On: 04/12/2019 11:59 EST Performed On: 04/12/2019 11:57 EST by PAUL GARCES PT [facility] Charges Physical Therapy Screen : 1 PAUL GARCES PT - 04/12/2019 11:57 EST documented in this encounter Plan of Treatment Not on file documented as of this encounter Visit Diagnoses Not on filedocumented in this encounter
--- OUTSIDE RECORDS SUMMARY | 2025-01-08 15:11 | XMS_ITS | Encounter Summary ---
Author Organization [employer] ([place], [place], [place], [place], [place]) Address [address] [place] [address] Care Team Providers Care Minilab Operator Name Role Phone Unavailable Primary Care Provider Unavailabl e Encounter Details Date Type Department Care Team (Late st Contact Info) Description 05/07/2019 Transcribed Document [facility] [place] [address] [place] [address] ProviderMg MD [facility] [place] [address] Social History Tobacco Use Types Packs/Day Years Used Date Smoking Tobacco: Never Assessed Sex and Gender Information Value Date Recorded Sex Assigned at Not on file Legal Sex Male 1:09 PM CDT Gender Identity Not on file Sexual Orientation Not on file documented as of this encounter Miscellaneous Notes * Cerner Conversion Note - Historical ProviderMD - 05/07/2019 1:45 PM AIR EXPORT COORDINATOR Spiritual Care Short Form Entered On: 05/07/2019 17:02 EST Performed On: 05/07/2019 13:45 EST by BETITO PRASAD Chaplain-Non Cert General Information, Spiritual Care Spiritual Care Referred by : Metal Painter initiated Reason for Visit : Initial Ministry Provided to : Patient, Family/Significant other Intervention/Comment/Summary Points : Routine visit conducted by Spiritual Equipment Man BETITO Red Chaplain-Non Cert - 05/07/2019 17:01 EST documented in this encounter Plan of Treatment Not on file documented as of this encounter Visit Diagnoses Not on filedocumented in this encounter
--- OUTSIDE RECORDS SUMMARY | 2025-01-08 15:11 | XMS_ITS | Encounter Summary ---
Author Organization [employer] ([place], [place], [place], [place], [place]) Address [address] [place] [address] Care Team Providers Care Sap Crm Developer Name Role Phone Unavailable Primary Care Provider Unavailabl e Encounter Details Date Type Department Care Team (Late st Contact Info) Description 05/08/2019 Transcribed Document [facility] [place] [facility] [place] [address] ProviderMg MD [facility] [place] [address] Social History Tobacco Use Types Packs/Day Years Used Date Smoking Tobacco: Never Assessed Sex and Gender Information Value Date Recorded Sex Assigned at Not on file Legal Sex Male 1:09 PM CDT Gender Identity Not on file Sexual Orientation Not on file documented as of this encounter Miscellaneous Notes * [employer]ner Conversion Note - Historical ProviderMD - 05/08/2019 5:00 AM GAS ENGINE PERFORMANCE ENGINEER Height and Weight, Routine Entered On: 05/08/2019 6:49 EST Performed On: 05/08/2019 5:00 EST by Reyna Nicolas RN Height and Weight, Routine Routine Weight Source : Standing scale Routine Weight Entry Format : [place] Routine Weight, Pounds : 236 lb Routine Weight, Ounces : 7 oz Routine Weight Calculation : 107.47 kg Height Source : Stated Height Entry Format : [place] Height, Feet : 6 ft Height, Inches : 0 Inch Clinical Height : 182.88 cm Body Surface Area (BSA), Routine : 2.29 m2 Body Mass Index (BMI), Routine : 32.13 kg/m2 Reyna Nicolas RN - 05/08/2019 6:47 EST Electronically signed by Jackie [facility] Conversion Clerical Grader Cerner at 06/19/2022 11:14 PM CDT documented in this encounter Plan of Treatment Not on file documented as of this encounter Visit Diagnoses Not on filedocumented in this encounter
--- OUTSIDE RECORDS SUMMARY | 2025-01-08 15:11 | XMS_ITS | Encounter Summary ---
Author Organization [employer] ([place], [place], [place], [place], [place]) Address [address] [place] [address] Care Team Providers Care Abrasive Water Jet Cutter Operator Name Role Phone Unavailable Primary Care Provider Unavailabl e Encounter Details Date Type Department Care Team (Late st Contact Info) Description 05/03/2019 Transcribed Document [facility] [place] Family Medicine [address] [place] [address] ProviderMg MD [address] [place], [place] [id number] Social History Tobacco Use Types Packs/Day Years Used Date Smoking Tobacco: Never Assessed Sex and Gender Information Value Date Recorded Sex Assigned at Not on file Legal Sex Male 1:09 PM CDT Gender Identity Not on file Sexual Orientation Not on file documented as of this encounter Miscellaneous Notes * Cerner Conversion Note - Historical ProviderMD - 05/03/2019 2:00 AM RECYCLING ASSISTANT Brokerage Branch Manager Details Entered On: 05/03/2019 4:03 EST Performed On: 05/03/2019 2:00 EST by Carlos Ojeda RN Order Details Transport Mode Order Detail : Wheelchair Isolation Precautions Order Detail : Standard Precautions Order Detail : N/A IV Order Detail : 1 Oxygen Order Detail : 0 Nurse Collect Order Detail : 1 Lift/Transfer : Independent Central Line Order Detail : No Room Service : Not Appropriate Arterial Line : No Carlos Ojeda, MARYCARMEN - 05/03/2019 4:02 EST documented in this encounter Plan of Treatment Not on file documented as of this encounter Visit Diagnoses Not on filedocumented in this encounter
--- OUTSIDE RECORDS SUMMARY | 2025-01-08 15:11 | XMS_ITS | Encounter Summary ---
Author Organization [employer] ([place], [place], [place], [place], [place]) Address [address] [place] [address] Care Team Providers Care Radiology Receptionist Name Role Phone Unavailable Primary Care Provider Unavailabl e Encounter Details Date Type Department Care Team (Late st Contact Info) Description 04/12/2019 Transcribed Document [facility] [place] Family Medicine [facility] [place] [address] ProviderMg MD [facility] [place] [address] Social History Tobacco Use Types Packs/Day Years Used Date Smoking Tobacco: Never Assessed Sex and Gender Information Value Date Recorded Sex Assigned at Not on file Legal Sex Male 1:09 PM CDT Gender Identity Not on file Sexual Orientation Not on file documented as of this encounter Miscellaneous Notes * Cerner Conversion Note - Historical ProviderMD - 04/12/2019 5:00 AM MOTOR PATROL OPERATOR Chart Check - Review Order Profile Entered On: 04/12/2019 4:39 EST Performed On: 04/12/2019 5:00 EST by Ashely Townsend RN Chart Check Powerplans Initiated/Discontinued as Appropriate : Yes All Active Orders Reviewed : Yes Ashely Townsend RN - 04/12/2019 4:39 EST documented in this encounter Plan of Treatment Not on file documented as of this encounter Visit Diagnoses Not on filedocumented in this encounter
--- OUTSIDE RECORDS SUMMARY | 2025-01-08 15:11 | XMS_ITS | Encounter Summary ---
Author Organization [employer] ([place], [place], [place], [place], [place]) Address [address] [place] [address] Care Team Providers Care Chief Ultrasound Technologist Name Role Phone Unavailable Primary Care Provider Unavailabl e Encounter Details Date Type Department Care Team (Late st Contact Info) Description 05/09/2019 Transcribed Document [facility] [place] Family Medicine [facility] [place] [address] ProviderMg MD [facility] [place] [id number] Social History Tobacco Use Types Packs/Day Years Used Date Smoking Tobacco: Never Assessed Sex and Gender Information Value Date Recorded Sex Assigned at Not on file Legal Sex Male 1:09 PM CDT Gender Identity Not on file Sexual Orientation Not on file documented as of this encounter Miscellaneous Notes * Cerner Conversion Note - Mg Ritchie MD - 05/09/2019 10:06 AM OFFICE MACHINE SERVICER Patient: JOSE PEARSON Age: 48 years Sex: Male : 1970 Associated Diagnoses: None Author: SO BURDICK MD-CAR Subjective denies cp or soa at rest but reported he was very soa just getting dressed yesterday. Objective VS/Measurements Vital Measurements 05/09/2019 9:53 EST Systolic Blood Pressure 109 mmHg Diastolic Blood Pressure 66 mmHg Mean Arterial Pressure (MAP)-BMDI 75 Temperature Source Oral Temperature Mode Fahrenheit Temperature, Fahrenheit 98.1 Deg F Clinical Temperature, C 36.7 Deg C Heart Rate Monitored 161 bpm HI Respiratory Rate 18 Breaths/Min Oxygen Saturation 95 % General: Alert and oriented, No acute distress. Neck: No carotid bruit, No jugular venous distention. Respiratory: Lungs are clear to auscultation, Respirations are non-labored, Breath sounds are equal, Symmetrical chest wall expansion. Cardiovascular: Normal rate, Regular rhythm, No gallop, Good pulses equal in all extremities, Normal peripheral perfusion, 2/6 bere. Gastrointestinal: Soft, Non-tender, Non-distended, Normal bowel sounds. Integumentary: Warm, Dry, Kaplan, No rash. Results Review General results Today's results 05/09/2019 6:23 EST Sodium Level 134 mmol/L LOW Potassium Level 4.9 mmol/L Chloride Level 98 mmol/L LOW Carbon Dioxide Level 30 mmol/L Anion Gap 11 Glucose Level 81 mg/dL Blood Urea Nitrogen 21 mg/dL Creatinine Level 1.04 mg/dL eGFR >60 mL/min/1.73m2 eGFR NonAfrican >60 mL/min/1.73m2 Bun/Creatinine 20.2 HI Calcium Level 8.8 mg/dL ProBNP 3,754 pg/mL HI WBC 8.8 K/uL RBC 4.49 Million/uL LOW Hgb 13.7 Gram/dL Hct 41.1 % MCV 91.5 fL MCH 30.5 pg MCHC 33.3 Gram/dL Platelet Count 292 K/uL CArdiomems placment 05/08/19: Hemodynamics in mmHg; mean [...] still arond 20-25% Prolonged QTc Interval - I spoke to dr akins. he suggested leaving the patient on tikosyn as this was used for VT. 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 Iatrogenic Hypotension - bisoprolol and losartan hypokalemia -replace as needed hypomag -replace Iron Deficiency -corrected Plan: bumex drip metalazone added today check wedge on Mems today and tomorrow dr akins to see for tikosyn therapy and dose mgt I Dr. Burdick has personally seen and examined this patient and devised the above plan of care. documented in this encounter Plan of Treatment Not on file documented as of this encounter Visit Diagnoses Not on filedocumented in this encounter
--- OUTSIDE RECORDS SUMMARY | 2025-01-08 15:11 | XMS_ITS | Encounter Summary ---
Author Organization [employer] ([place], [place], [place], [place], [place]) Address [address] [place] [address] Care Team Providers Care Air Press Operator Name Role Phone Unavailable Primary Care Provider Unavailabl e Encounter Details Date Type Department Care Team (Late st Contact Info) Description 05/03/[address] [facility] [place] Family Medicine [address] [place] [address] ProviderMg MD [place] [address] Social History Tobacco Use Types Packs/Day Years Used Date Smoking Tobacco: Never Assessed Sex and Gender Information Value Date Recorded Sex Assigned at Not on file Legal Sex Male 1:09 PM CDT Gender Identity Not on file Sexual Orientation Not on file documented as of this encounter Miscellaneous Notes * Cerner Conversion Note - Historical ProviderMD - 05/03/2019 9:34 AM MILL TENDER SECOND OPERATOR Spiritual Care Short Form Entered On: 05/03/2019 10:39 EST Performed On: 05/03/2019 9:34 EST by ANIKA MANRIQUEZ Chaplain-Non Cert General Information, Spiritual Care Spiritual Care Referred by : Interdisciplinary Team rounds Reason for Visit : Initial Intervention/Comment/Summary Points : Jose is a 48-year-old patient who is receiving care for heart-related issues. The nurse updated the IDT on diagnosis and plan of care. ANIKA MANRIQUEZ Chaplain-Non Cert - 05/03/2019 10:37 EST documented in this encounter Plan of Treatment Not on file documented as of this encounter Visit Diagnoses Not on filedocumented in this encounter
--- OUTSIDE RECORDS SUMMARY | 2025-01-08 15:11 | XMS_ITS | Encounter Summary ---
Author Organization [employer] ([place], [place], [place], [place], [place]) Address [address] [place] [address] Care Team Providers Care Master Yacht Name Role Phone Unavailable Primary Care Provider Unavailabl e Encounter Details Date Type Department Care Team (Late st Contact Info) Description 05/06/2019 Transcribed Document [facility] [place] Family Medicine [facility] [place] [address] ProviderMg MD [address] [place] [address] Social History Tobacco Use Types Packs/Day Years Used Date Smoking Tobacco: Never Assessed Sex and Gender Information Value Date Recorded Sex Assigned at Not on file Legal Sex Male 1:09 PM CDT Gender Identity Not on file Sexual Orientation Not on file documented as of this encounter Miscellaneous Notes * Cerner Conversion Note - Mg ProviderMD - 05/06/2019 12:11 PM FAMILY DEVELOPMENT EXTENSION SPECIALIST UM Authorization Entered On: 05/06/2019 12:12 EST Performed On: 05/06/2019 12:11 EST by ARMANDO SHANNON RN-Utilization Review Primary Insurance Authorization Authorization and Policy Numbers : Insurance 1 Health Plan: [facility] Policy Number: Authorization Number: Insurance Primary Name : [facility] Administators Authorization Status-Primary : Admit approved Authorization Number-Primary : [id number] Authorized Service Begin Date-Primary : 05/03/2019 EST Authorization Comments-Primary : Uploaded continuing stay clinicals (05/06/19) to [facility] via [employer]. Historical Authorization Comments-Primary : Comment 1: Per [facility], admit approved with auth #[id number] given from 05/03-05/05/19. Next review date 05/06/19. (ARMANDO SHANNON RN-Utilization Review 05/06/2019 08:05) Comment 2: Uploaded clinicals to [facility] administrators via [employer]. Manually faxed [employer] form. (MIRTHA, ARMANDO, RN-Utilization Review 05/03/2019 13:31) ARMANDO SHANNON RN-Utilization Review - 05/06/2019 12:11 EST documented in this encounter Plan of Treatment Not on file documented as of this encounter Visit Diagnoses Not on filedocumented in this encounter
--- OUTSIDE RECORDS SUMMARY | 2025-01-08 15:11 | XMS_ITS | Encounter Summary ---
Author Organization [employer] ([place], [place], [place], [place], [place]) Address [address] [place] [address] Care Team Providers Care Registered Associate Name Role Phone Unavailable Primary Care Provider Unavailabl e Encounter Details Date Type Department Care Team (Late st Contact Info) Description 05/08/2019 Transcribed Document [facility] [place] Family Medicine [address] [place] [address] ProviderMg MD [facility] [place], [place] [address] Social History Tobacco Use Types Packs/Day Years Used Date Smoking Tobacco: Never Assessed Sex and Gender Information Value Date Recorded Sex Assigned at Not on file Legal Sex Male 1:09 PM CDT Gender Identity Not on file Sexual Orientation Not on file documented as of this encounter Miscellaneous Notes * Cerner Conversion Note - Historical ProviderMD - 05/08/2019 2:00 AM WET FINISHER WOOL Program Arranger Details Entered On: 05/08/2019 4:59 EST Performed On: 05/08/2019 2:00 EST by Reyna Nicolas, RN Order Details Transport Mode Order Detail : Wheelchair Isolation Precautions Order Detail : Standard Precautions Order Detail : N/A IV Order Detail : 1 Oxygen Order Detail : 0 Nurse Collect Order Detail : 0 Lift/Transfer : Independent Central Line Order Detail : No Room Service : Needs Assistance Arterial Line : No Reyna Nicolas, MARYCARMEN - 05/08/2019 4:58 EST documented in this encounter Plan of Treatment Not on file documented as of this encounter Visit Diagnoses Not on filedocumented in this encounter
--- OUTSIDE RECORDS SUMMARY | 2025-01-08 15:11 | XMS_ITS | Encounter Summary ---
Author Organization [employer] ([place], [place], [place], [place], [place]) Address [address] [place] [address] Care Team Providers Care Rectangular Tank Cooper Name Role Phone Unavailable Primary Care Provider Unavailabl e Encounter Details Date Type Department Care Team (Late st Contact Info) Description 04/17/2019 Transcribed Document [facility] [place] Family Medicine [facility] [place] [address] ProviderMg MD [facility] [place] [id number] Social History Tobacco Use Types Packs/Day Years Used Date Smoking Tobacco: Never Assessed Sex and Gender Information Value Date Recorded Sex Assigned at Not on file Legal Sex Male 1:09 PM CDT Gender Identity Not on file Sexual Orientation Not on file documented as of this encounter Miscellaneous Notes * Cerner Conversion Note - Mg Ritchie MD - 04/17/2019 9:55 AM HOP STRAINER UM Authorization Entered On: 04/17/2019 9:56 EST Performed On: 04/17/2019 9:55 EST by CHARLA BARRAZA RN-Utilization Review Primary Insurance Authorization Authorization and Policy Numbers : Insurance 1 Health Plan: [employer] Policy Number: [id number] Authorization Number: Insurance 2 Health Plan: MEDICARE Policy Number: [id number] Authorization Number: Insurance Primary Name : Ruben [id number] Authorization Status-Primary : Admit approved Authorization Number-Primary : [id number] Number of Days Authorized-Primary : 1 Day(s) Authorized Service Begin Date-Primary : 04/11/2019 EST Authorized Service End Date-Primary : 04/12/2019 EST Authorization Comments-Primary : [place] approved per Liliana from [employer] approved inpt Historical Authorization Comments-Primary : Comment 1: Clinicals and [employer] Administrators form faxed to [facility]. (MARLENE THORNTON Rn-Utilization Review 04/12/2019 14:39) CHARLA BARRAZA RN-Utilization Review - 04/17/2019 9:55 EST Electronically signed by Jackie, [facility] Conversion Antenna Installer Cerner at 06/19/2022 11:11 PM CDT documented in this encounter Plan of Treatment Not on file documented as of this encounter Visit Diagnoses Not on filedocumented in this encounter
--- OUTSIDE RECORDS SUMMARY | 2025-01-08 15:11 | XMS_ITS | Encounter Summary ---
Author Organization [employer] ([place], [place], [place], [place], [place]) Address [address] [place] [address] Care Team Providers Care Customer Service Consultant Name Role Phone Unavailable Primary Care Provider Unavailabl e Encounter Details Date Type Department Care Team (Late st Contact Info) Description 04/13/[address] [facility] [place] [facility] [place] [address] ProviderMg MD [facility] [place], [place] [address] Social History Tobacco Use Types Packs/Day Years Used Date Smoking Tobacco: Never Assessed Sex and Gender Information Value Date Recorded Sex Assigned at Not on file Legal Sex Male 1:09 PM CDT Gender Identity Not on file Sexual Orientation Not on file documented as of this encounter Miscellaneous Notes * Cerner Conversion Note - Historical ProviderMD - 04/13/2019 5:00 AM INSTRUMENTATION ENGINEER Chart Check - Review Order Profile Entered On: 04/13/2019 5:17 EST Performed On: 04/13/2019 5:00 EST by Duncan Rudolph Rn-Iman Chart Check Powerplans Initiated/Discontinued as Appropriate : Yes All Active Orders Reviewed : Yes Duncan Rudolph Rn-Resource - 04/13/2019 5:17 EST documented in this encounter Plan of Treatment Not on file documented as of this encounter Visit Diagnoses Not on filedocumented in this encounter
--- OUTSIDE RECORDS SUMMARY | 2025-01-08 15:11 | XMS_ITS | Encounter Summary ---
Author Organization [employer] ([place], [place], [place], [place], [place]) Address [address] [place] [address] Care Team Providers Care Telecommunications Officer Name Role Phone Unavailable Primary Care Provider Unavailabl e Encounter Details Date Type Department Care Team (Late st Contact Info) Description 04/12/2019 Transcribed Document [facility] [place] [facility] [place] [address] ProviderMg MD [facility] [place] [address] Social History Tobacco Use Types Packs/Day Years Used Date Smoking Tobacco: Never Assessed Sex and Gender Information Value Date Recorded Sex Assigned at Not on file Legal Sex Male 1:09 PM CDT Gender Identity Not on file Sexual Orientation Not on file documented as of this encounter Miscellaneous Notes * Cerner Conversion Note - Historical ProviderMD - 04/12/2019 5:00 AM PROCESSING TECH Height and Weight, Routine Entered On: 04/12/2019 6:40 EST Performed On: 04/12/2019 5:00 EST by Ashely Townsend RN Height and Weight, Routine Routine Weight Source : Standing scale Routine Weight Entry Format : Whitley Routine Weight, Pounds : 244 lb Routine Weight, Ounces : 7 oz Routine Weight Calculation : 111.11 kg Height Source : Stated Height Entry Format : [place]ley Height, Feet : 6 ft Height, Inches : 2 Inch Clinical Height : 187.96 cm Body Surface Area (BSA), Routine : 2.37 m2 Body Mass Index (BMI), Routine : 31.45 kg/m2 Ashely Townsend RN - 04/12/2019 6:39 EST Electronically signed by Jackie [facility] Conversion Rayon [employer] Cerner at 06/19/2022 11:11 PM CDT documented in this encounter Plan of Treatment Not on file documented as of this encounter Visit Diagnoses Not on filedocumented in this encounter
--- OUTSIDE RECORDS SUMMARY | 2025-01-08 15:11 | XMS_ITS | Encounter Summary ---
Author Organization [employer] ([place], [place], [place], [place], [place]) Address [address] [place] [address] Care Team Providers Care Transit Mixer Driver Name Role Phone Unavailable Primary Care Provider Unavailabl e Encounter Details Date Type Department Care Team (Late st Contact Info) Description 04/12/2019 Transcribed Document [facility] [place] [facility] [place] [address] ProviderMg MD [facility] [place] [address] Social History Tobacco Use Types Packs/Day Years Used Date Smoking Tobacco: Never Assessed Sex and Gender Information Value Date Recorded Sex Assigned at Not on file Legal Sex Male 1:09 PM CDT Gender Identity Not on file Sexual Orientation Not on file documented as of this encounter Miscellaneous Notes * Cerner Conversion Note - Historical ProviderMD - 04/12/2019 2:00 AM SERVICE SUPPORT REPRESENTATIVE Electric Gas Appliances Demonstrator Details Entered On: 04/12/2019 1:10 EST Performed On: 04/12/2019 2:00 EST by Ashely Townsend RN Order Details Transport Mode Order Detail : Wheelchair Isolation Precautions Order Detail : Standard Precautions Order Detail : N/A IV Order Detail : 1 Oxygen Order Detail : 0 Nurse Collect Order Detail : 0 Lift/Transfer : Independent Central Line Order Detail : No Room Service : Appropriate Arterial Line : No Ashely Townsend RN - 04/12/2019 1:10 EST documented in this encounter Plan of Treatment Not on file documented as of this encounter Visit Diagnoses Not on filedocumented in this encounter
--- OUTSIDE RECORDS SUMMARY | 2025-01-08 15:11 | XMS_ITS | Encounter Summary ---
Author Organization [employer] ([place], [place], [place], [place], [place]) Address [address] [place] [address] Care Team Providers Care Forest Technician Name Role Phone Unavailable Primary Care Provider Unavailabl e Encounter Details Date Type Department Care Team (Late st Contact Info) Description 05/05/2019 Transcribed Document [facility] [place] [address] [place] [address] ProviderMg MD [facility] [place] [address] Social History Tobacco Use Types Packs/Day Years Used Date Smoking Tobacco: Never Assessed Sex and Gender Information Value Date Recorded Sex Assigned at Not on file Legal Sex Male 1:09 PM CDT Gender Identity Not on file Sexual Orientation Not on file documented as of this encounter Miscellaneous Notes * Cerner Conversion Note - Historical ProviderMD - 05/05/2019 5:00 AM RECONCILIATION CLERK Chart Check - Review Order Profile Entered On: 05/05/2019 5:44 EST Performed On: 05/05/2019 5:00 EST by Josefina March RN-Resource Chart Check Powerplans Initiated/Discontinued as Appropriate : Yes All Active Orders Reviewed : Yes Chart Reviewed With : Josefina March, RN-Resource Josefina March, RN-Resource - 05/05/2019 5:44 EST documented in this encounter Plan of Treatment Not on file documented as of this encounter Visit Diagnoses Not on filedocumented in this encounter
--- OUTSIDE RECORDS SUMMARY | 2025-01-08 15:11 | XMS_ITS | Encounter Summary ---
Author Organization [employer] ([place], [place], [place], [place], [place]) Address [address] [place] [address] Care Team Providers Care Irrigation Engineer Name Role Phone Unavailable Primary Care Provider Unavailabl e Encounter Details Date Type Department Care Team (Late st Contact Info) Description 04/13/2019 Transcribed Document [facility] [place] [facility] [place] [address] ProviderMg MD [facility] [place], [place] [id number] Social History Tobacco Use Types Packs/Day Years Used Date Smoking Tobacco: Never Assessed Sex and Gender Information Value Date Recorded Sex Assigned at Not on file Legal Sex Male 1:09 PM CDT Gender Identity Not on file Sexual Orientation Not on file documented as of this encounter Miscellaneous Notes * Cerner Conversion Note - Mg Ritchie MD - 04/13/2019 9:39 AM CONTAINER COORDINATOR Patient: JOSE PEARSON Age: 48 years Sex: Male : 1970 Associated Diagnoses: None Author: KATY FRIAS MD-CAR Subjective No issues overnight. Moderate amount of ventricular ectopy on tele. No CP or SOA. QTc down to 552. He feels well and wants to return home. Health Status Allergies: Allergic Reactions (Selected) No Known Medication Allergies, Allergies (1) Active Reaction No Known Medication Allergies None Documented Current medications: (Selected) Inpatient Medications Ordered Bumex: 2 mg, IV Push, BID Colace: 100 mg, Oral, BID FLUoxetine: 20 mg, Oral, Daily Melatonin: 3 mg, Oral, At Bedtime, PRN: Sleep Normal Saline 1,000 mL: 10 mL/Hr, IntraVENous Normal Saline Flush: 10 mL, IV Push, Q12H Normal Saline Flush: 10 mL, IV Push, See Comment, PRN: IV Use Pravachol: 80 mg, Oral, At Bedtime Singulair: 10 mg, Oral, At Bedtime Tikosyn: 250 mcg, Oral, BID Tylenol: 650 mg, Oral, Q4H, PRN: Pain (Mild 1-3) Xarelto: 10 mg, Oral, [id number] Zofran: 4 mg, IV Push, Q6H, PRN: Nausea acetaminophen-HYDROcodone 325 mg-5 mg oral tablet: 1 Tab, Oral, Q4H, PRN: Pain (Moderate 4-6) loratadine: 10 mg, Oral, Daily magnesium sulfate: 2 Gram, 50 mL, 25 mL/Hr, IV Piggyback, On-CALL milrinone injection 20 mg + [id number] Premix Diluent for Drip 100 mL: TITRATE, IntraVENous morphine: 2 mg, IV Push, Q5Min, PRN: Pain (Severe 7-10) potassium chloride 20 mEq oral tablet, extended release: 40 mEq, 2 Tab, Oral, 1-Time, PRN: Other (See Comment) potassium chloride 20 mEq oral tablet, extended release: 60 mEq, 3 Tab, Oral, On-CALL spironolactone: 25 mg, Oral, Daily Documented Medications Documented Entresto 24 mg-26 mg [...] tablet: 1 Tab, Oral, Daily, 0 Refill(s) Tikosyn 125 mcg oral capsule: 2 Cap, Oral, BID, 60 Cap, 0 Refill(s) Tikosyn 250 mcg oral capsule: 2 Cap, Oral, BID, 60 Cap, 0 Refill(s) Xarelto 20 mg oral tablet: 1 Tab, Oral, Daily, 30 Tab, 0 Refill(s) carvedilol: 6.25 mg, Oral, BID, 0 Refill(s) cetirizine 10 mg oral tablet: 1 Tab, Oral, Daily, 0 Refill(s) pravastatin 80 mg oral tablet: 1 Tab, Oral, At Bedtime, 0 Refill(s) spironolactone: 25 mg, Oral, Daily, 0 Refill(s) Objective VS/Measurements Vitals Signs (last 24 hrs) Last Charted Minimum Maximum Temp 97.5 (APR 13 04:00) 97.5 (APR 13 04:00) 98.0 (APR 12 16:00) Apical HR 97 (APR 12 21:19) 80 (APR 12 10:16) 97 (APR 12:19) Mon HR 80 (APR 13 09:04) 75 (APR 12 15:37) 132 (APR 12 19:30) Resp Rate 18 (APR 13 09:04) 15 (APR 12 13:00) H 46 (APR 12 20:00) SBP 112 (APR 13 06:00) 91 (APR 13 01:00) H 191 (APR 12 11:45) DBP 81 (APR 13 06:00) L 53 (APR 12 17:00) H 98 (APR 12 14:30) MAP 93 (APR 13 06:00) 64 (APR 13 00:00) 113 (APR 12 11:45) SpO2 L 91.00 (APR 13 09:04) L 88.00 (APR 12 14:00) 100.00 (APR 12 21:15) General: Alert and oriented, No acute distress. Neck: No carotid bruit, No jugular venous distention. Respiratory: Lungs are clear to auscultation, Respirations are non-labored. Cardiovascular: Normal rate, Regular rhythm, No murmur, No edema. Gastrointestinal: Non-distended. Musculoskeletal: Normal ROM in bed, Normal ROM in bed. Integumentary: Warm, Dry, No rash. Neurologic: No deficits appreciated, No deficits appreciated. Psychiatric: Cooperative, Appropriate mood & affect. Impression and Plan Acute on Chronic Left Systolic Heart Failure, NIDCM s/p ICD - s/p 24 hours of Milrinone therapy. Feels back to baseline. Diuresed 3L and has good BP. - Resume home dose Entresto, Coreg, Aldactone - He's had EF <20% since 2007. Typical survival rate is 1 year and he is now 12 years past diagnosis. Consider consult with Cardiac Transplant at . PAF - QTc is 625, decrease Tikosyn to 250mg BID, improved to 553 - Give 2gm Mg - EKG and office f/u within 1 week. Viral Gastroenteritis - resolved - bland diet- avoid dairy and grease until normal BM - BP back to baseline CV stable to DC home. I Dr Alberts seen and examined patient and devised the above plan of care. The patient has high morbidity and mortality, he fully understands that, I have also had a lengthy discussion with him and his is about consulting with heart transplant team at , and looking at options since his ejection fraction being less than 20% is 2007, the patient is on Tikosyn and the dose is reduced because of the prolonged QTc, the QTC is still somewhat prolonged but he has a high risk of VT V. fib, patient will be given IV magnesium, he will go home on a lower dose medication and f/U with Dr Hobbs in one wk. documented in this encounter Plan of Treatment Not on file documented as of this encounter Visit Diagnoses Not on filedocumented in this encounter
--- OUTSIDE RECORDS SUMMARY | 2025-01-08 15:11 | XMS_ITS | Encounter Summary ---
Author Organization [employer] ([place], [place], [place], [place], [place]) Address [address] [place] [address] Care Team Providers Care Welder Pipe Making Name Role Phone Unavailable Primary Care Provider Unavailabl e Encounter Details Date Type Department Care Team (Late st Contact Info) Description 05/02/2019 Transcribed Document [facility] [place] Family Medicine [facility] [place] [address] ProviderMg MD [facility] [place] [address] Social History Tobacco Use Types Packs/Day Years Used Date Smoking Tobacco: Never Assessed Sex and Gender Information Value Date Recorded Sex Assigned at Not on file Legal Sex Male 1:09 PM CDT Gender Identity Not on file Sexual Orientation Not on file documented as of this encounter Miscellaneous Notes * Cerner Conversion Note - Historical ProviderMD - 05/02/2019 4:10 PM FRAMEMAN Education-(VTE) / (DVT) Entered On: 05/02/2019 18:53 EST Performed On: 05/02/2019 16:10 EST by Chelo Cardenas RN Teaching/Learning Assessment Barriers To Learning : None evident Individuals Taught : Patient, Spouse Readiness to Learn : Explanation Chelo Cardenas RN - 05/02/2019 18:53 EST Electronically signed by Jackie [facility] Conversion Metal Cut Off Saw Operator Cerner at 06/19/2022 10:54 PM CDT documented in this encounter Plan of Treatment Not on file documented as of this encounter Visit Diagnoses Not on filedocumented in this encounter
--- OUTSIDE RECORDS SUMMARY | 2025-01-08 15:11 | XMS_ITS | Encounter Summary ---
Author Organization [employer] ([place], [place], [place], [place], [place]) Address [address] [place] [address] Care Team Providers Care Health And Wellness Manager Name Role Phone Unavailable Primary Care Provider Unavailabl e Encounter Details Date Type Department Care Team (Late st Contact Info) Description 05/08/2019 Transcribed Document [facility] [place] [facility] [place] [address] ProviderMg MD [facility] [place] [address] Social History Tobacco Use Types Packs/Day Years Used Date Smoking Tobacco: Never Assessed Sex and Gender Information Value Date Recorded Sex Assigned at Not on file Legal Sex Male 1:09 PM CDT Gender Identity Not on file Sexual Orientation Not on file documented as of this encounter Miscellaneous Notes * Cerner Conversion Note - Mg ProviderMD - 05/08/2019 3:22 PM MILL TENDER WARM UP UM Authorization Entered On: 05/08/2019 15:23 EST Performed On: 05/08/2019 15:22 EST by CHARLA BARRAZA RN-Utilization Review Primary Insurance Authorization Authorization and Policy Numbers : Insurance 1 Health Plan: [facility] Policy Number: Authorization Number: Insurance Primary Name : [employer] Administators [id number] Authorization Status-Primary : Admit approved Authorization Number-Primary : [id number] Number of Days Authorized-Primary : 6 Day(s) Authorized Service Begin Date-Primary : 05/03/2019 EST Authorized Service End Date-Primary : 05/09/2019 EST Authorization Comments-Primary : [employer] approved per Katrin for total of 7 days --- nrd 05/09 Historical Authorization Comments-Primary : Comment 1: Clinicals for CS faxed via Jessica (MARLENE THORNTON Rn-Utilization Review 05/08/2019 14:43) Comment 2: [place] approved per Katrin for 5 days total --- nrd 05/07 (CHARLA BARRAZA, MARYCARMEN-Utilization Review 05/06/2019 13:43) Comment 3: Uploaded continuing stay clinicals (05/06/19) to [facility] via [employer]. (ARMANDO SHANNON, RN-Utilization Review 05/06/2019 12:11) Comment 4: Per [facility], admit approved with auth #[id number] given from 05/03-05/05/19. Next review date 05/06/19. (ARMANDO SHANNON, RN-Utilization Review 05/06/2019 08:05) Comment 5: Uploaded clinicals to [employer] administrators via [employer]. Manually faxed AR[employer] form. (ARMANDO SHANNON, RN-Utilization Review 05/03/2019 13:31) CHARLA BARRAZA RN-Utilization Review - 05/08/2019 15:22 EST documented in this encounter Plan of Treatment Not on file documented as of this encounter Visit Diagnoses Not on filedocumented in this encounter
--- OUTSIDE RECORDS SUMMARY | 2025-01-08 15:11 | XMS_ITS | Encounter Summary ---
Author Organization [employer] ([place], [place], [place], [place], [place]) Address [address] [place] [address] Care Team Providers Care Marine Photographer Name Role Phone Unavailable Primary Care Provider Unavailabl e Encounter Details Date Type Department Care Team (Late st Contact Info) Description 05/09/2019 Transcribed Document [facility] [place] [facility] [place] [address] ProviderMg MD [facility] [place] [address] Social History Tobacco Use Types Packs/Day Years Used Date Smoking Tobacco: Never Assessed Sex and Gender Information Value Date Recorded Sex Assigned at Not on file Legal Sex Male 1:09 PM CDT Gender Identity Not on file Sexual Orientation Not on file documented as of this encounter Miscellaneous Notes * Cerner Conversion Note - Historical ProviderMD - 05/09/2019 5:00 AM FINANCE PROFESSOR Chart Check - Review Order Profile Entered On: 05/09/2019 4:25 EST Performed On: 05/09/2019 5:00 EST by Ashely Townsend RN Chart Check Powerplans Initiated/Discontinued as Appropriate : Yes All Active Orders Reviewed : Yes Ashely Townsend RN - 05/09/2019 4:25 EST documented in this encounter Plan of Treatment Not on file documented as of this encounter Visit Diagnoses Not on filedocumented in this encounter
--- OUTSIDE RECORDS SUMMARY | 2025-01-08 15:11 | XMS_ITS | Encounter Summary ---
Author Organization [employer] ([place], [place], [place], [place], [place]) Address [address] [place] [address] Care Team Providers Care Sales Agent Pest Control Service Name Role Phone Unavailable Primary Care Provider Unavailabl e Encounter Details Date Type Department Care Team (Late st Contact Info) Description 05/03/2019 Transcribed Document [facility] [place] Medicine [facility] [place] [address] ProviderMg MD [facility] [place] [address] Social History Tobacco Use Types Packs/Day Years Used Date Smoking Tobacco: Never Assessed Sex and Gender Information Value Date Recorded Sex Assigned at Not on file Legal Sex Male 1:09 PM CDT Gender Identity Not on file Sexual Orientation Not on file documented as of this encounter Miscellaneous Notes * Cerner Conversion Note - Historical ProviderMD - 05/03/2019 10:50 AM LEAD REFINERY SUPERVISOR [facility] Charges Entered On: 05/03/2019 10:50 EST Performed On: 05/03/2019 10:50 EST by ALYX BOSTON PT [facility] Charges Physical Therapy Screen : 1 ALYX BOSTON PT - 05/03/2019 10:50 EST Electronically signed by Morales Mejia Conversion Senior Engineering Specialist [employer] at 06/19/2022 11:05 PM CDT documented in this encounter Plan of Treatment Not on file documented as of this encounter Visit Diagnoses Not on filedocumented in this encounter
--- OUTSIDE RECORDS SUMMARY | 2025-01-08 15:11 | XMS_ITS | Encounter Summary ---
Author Organization [employer] ([place], [place], [place], [place], [place]) Address [address] [place] [address] Care Team Providers Care Construction Ironworker Helper Name Role Phone Unavailable Primary Care Provider Unavailabl e Encounter Details Date Type Department Care Team (Late st Contact Info) Description 05/09/2019 Transcribed Document [facility] [place] [facility] [place] [address] ProviderMg MD [facility] [place] [address] Social History Tobacco Use Types Packs/Day Years Used Date Smoking Tobacco: Never Assessed Sex and Gender Information Value Date Recorded Sex Assigned at Not on file Legal Sex Male 1:09 PM CDT Gender Identity Not on file Sexual Orientation Not on file documented as of this encounter Miscellaneous Notes * Cerner Conversion Note - Mg ProviderMD - 05/09/2019 8:56 AM DONOR SERVICES MANAGER On Going Discharge Planning Entered On: 05/09/2019 8:57 EST Performed On: 05/09/2019 8:56 EST by Alyse Townsend Social Worker-Bacon Skin Lifter Care Management Progress Note Discharge Arrangements : Patient Post-Acute Information Patient Name: JOSE PEARSON Gender: Male : [birth year] Age: 48 Years No Post-Acute Placement(s) Listed No Post-Acute Service(s) Listed No [place] Referral(s) Listed Alyse Townsend Social Worker-Bacon Skin Lifter - 05/09/2019 8:56 EST Narrative Progress Note Narrative Progress Note : 05/08 Per documentation left by Paula Villeda RN CM, referral information was sent to [facility] transplant program. Historical Progress Note : 05/06 Received order to make referral to [facility] outpatient cardiac transplant program. Contacted [facility] appointment telephone number [phone]. They report the person who typically takes the referrals is unavailable and they will have her contact CM back. CM contact information was provided. They report the referral/building services coordinator is Kailey PH: [phone]. Alyse Townsend, Subscription Crew Leader-Bacon Skin Lifter - 05/07/19 15:01:13 Per RN in Multidisciplinary rounds patient is NPO for scheduled Cardiomems today. Having some nausea after Fe Infusions requested the infusion be held until after procedure so he can eat. CM will follow. TANVIR THAYER Rn-Secondary Social Studies Teacher - 05/06/19 11:03:45 Alyse Townsend Subscription Crew Leader-Bacon Skin Lifter - 05/09/2019 8:56 EST Electronically signed by Morales Mejia Conversion Band Saw Operator Cake Cutting Cerner at 06/19/2022 10:57 PM CDT documented in this encounter Plan of Treatment Not on file documented as of this encounter Visit Diagnoses Not on filedocumented in this encounter
--- OUTSIDE RECORDS SUMMARY | 2025-01-08 15:11 | XMS_ITS | Encounter Summary ---
Author Organization [employer] ([place], [place], [place], [place], [place]) Address [address] [place] [address] Care Team Providers Care Stamping Die Maker Bench Name Role Phone Unavailable Primary Care Provider Unavailabl e Encounter Details Date Type Department Care Team (Late st Contact Info) Description 04/12/2019 Transcribed Document [facility] [place] Family Medicine [facility] [place] [address] ProviderMg MD [facility] [place], [place] [id number] Social History Tobacco Use Types Packs/Day Years Used Date Smoking Tobacco: Never Assessed Sex and Gender Information Value Date Recorded Sex Assigned at Not on file Legal Sex Male 1:09 PM CDT Gender Identity Not on file Sexual Orientation Not on file documented as of this encounter Miscellaneous Notes * Cerner Conversion Note - Mg Ritchie MD - 04/12/2019 10:27 AM TUBE ROLLER Patient: JOSE PEARSON Age: 48 years Sex: Male : 1970 Associated Diagnoses: None Author: KATY FRIAS MD-CAR Basic Information Direct admit from office 04/11/19 Chief Complaint SOA History of Present Illness SOA - acute on chronic worsening and severe associated with low BP but no chest pain, worse with activity, better with rest 48 yo WM well established pt of Dr. Hobbs with hx of idiopathic NIDCM s/p ICD. Developed GI virus with N/V/D on Mon. BP dropped to 70s-80s. Was seen in office yesterday and direct admitted for decompensated HF. Here with plans to diurese and give IV milrinone. Review of Systems Constitutional: Weakness, No fever, No chills. Eye: No visual disturbances. Ear/Nose/Mouth/Throat Respiratory: Shortness of breath, No cough. Cardiovascular: No chest pain, No palpitations, No peripheral edema. Gastrointestinal: No abdominal pain. Genitourinary: No hematuria. Hematology/Lymphatics: No bruising tendency, No bleeding tendency. Endocrine: No cold intolerance, No heat intolerance. Integumentary: No rash, No skin lesion. Neurologic: Alert and oriented X4. Psychiatric Health Status Allergies: Allergic Reactions (Selected) No Known Medication Allergies, Allergies (1) Active Reaction No Known Medication Allergies None Documented Current medications: (Selected) Inpatient Medications Ordered Bumex: 2 mg, Oral, TID Colace: 100 mg, Oral, BID FLUoxetine: 20 [...] Pain (Mild 1-3) Xarelto: 10 mg, Oral, [id number] Zofran: 4 mg, IV Push, Q6H, PRN: [...] 25 mg, Oral, Daily, 0 Refill(s), Medications (21) Active Scheduled: (12) #NaCl 0.9% *FLUSH* inj 10 mL 10 mL, IV Push, Q12H bumetanide 1 mg tab 2 mg 2 Tab, Oral, TID docusate sodium 100 mg cap 100 mg 1 Cap, Oral, BID dofetilide 250 mcg cap 250 mcg 1 Cap, Oral, BID FLUoxetine 20 mg cap 20 mg 1 Cap, Oral, Daily loratadine 10 mg tab 10 mg 1 Tab, Oral, Daily magnesium sulfate 2 Gram 50 mL, IV Piggyback, On-CALL montelukast 10 mg tab 10 mg 1 Tab, Oral, At Bedtime potassium chloride CR 20 mEq tab 60 mEq 3 Tab, Oral, On-CALL PRAVAstatin sodium 20 mg tab 80 mg 4 Tab, Oral, At Bedtime rivaroxaban 10 mg tab 10 mg 1 Tab, Oral, [id number] spironolactone 25 mg tab 25 mg 1 Tab, Oral, Daily Continuous: (2) milrinone/D5w 20 mg + Premix Diluent D5W TITRATE 100 mL 100 mL, IntraVENous NaCl 0.9% 1,000 mL 1,000 mL, IntraVENous, 10 mL/Hr PRN: (7) #NaCl 0.9% *FLUSH* inj 10 mL 10 mL, IV Push, See Comment acetaminophen 325 mg tab 650 mg 2 Tab, Oral, Q4H acetaminophen/HYDROcodone 325/5 mg tab 1 Tab, Oral, Q4H melatonin 3 mg tab 3 mg 1 Tab, Oral, At Bedtime morphine 2 mg/1 ml inj 2 mg 1 mL, IV Push, Q5Min ondansetron 4 mg/2 mL inj 4 mg 2 mL, IV Push, Q6H potassium chloride CR 20 mEq tab 40 mEq 2 Tab, Oral, 1-Time Problem list: All Problems angina / SNOMED CT 402019408 / Confirmed Asthma / SNOMED CT 343517509 / Confirmed Cardiac defibrillator in place / SNOMED CT 0719753956 / Confirmed interrogated at physicians office---02/22/13 pacemaker / SNOMED CT 9371411850 / Confirmed Cardiomyopathy / SNOMED CT 660380374 / Confirmed stroke / SNOMED CT 594514346 / Confirmed he had a stroke when they found the blood clot in valve GERD - Gastro-esophageal reflux disease / SNOMED CT 2101278281 / Confirmed H/O: CVA / SNOMED CT 456955799 / Confirmed Heart failure / SNOMED CT 903804640 / Confirmed History of obstructive sleep apnea / IMO 29971738 / Confirmed high cholesterol / SNOMED CT 55258406 / Confirmed Hyperlipidemia / SNOMED CT 95977679 / Confirmed hypertension / SNOMED CT 9092482760 / Confirmed Hypotension / SNOMED CT 151290763 / Confirmed myocardial infarction / SNOMED CT 70221244 / Confirmed sesonal allergies / SNOMED CT 2146500170 / Confirmed Resolved: At risk for sleep apnea / IMO 89484800 Resolved: Moderate protein-calorie malnutrition / SNOMED CT 100569913 Acute illness or injury related malnutrition r/t hyperthyroidism as evidenced by wt loss of 14# x 2 wks (5.8%) per pt, po intake <50% >/=5 days, moderate subcutaneous fat loss to orbitals Resolved: 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 / SNOMED CT 147878731 treated with blood thinners, Active Problems (16) stroke angina Asthma Cardiac defibrillator in place Cardiomyopathy GERD - Gastro-esophageal reflux disease H/O: CVA Heart failure high cholesterol History of obstructive sleep apnea Hyperlipidemia hypertension Hypotension myocardial infarction pacemaker sesonal allergies Histories Past Medical History: Resolved 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 (219547739): Onset on 04/02/2008 at 37 years. Resolved. Comments: 04/02/2013 EST 8:28 MARIAM - FLAQUITA MARTIN RN treated with blood thinners At risk for sleep apnea (11649743): Resolved. Family History: No family history items have been selected or recorded. Procedure history: AICD/ pacemaker. right ankle pins & rods. heart cath- left heart cath.. Hernia repair- hiatal hernie repair. right heart catheterization. Social History Social & Psychosocial Habits Alcohol 05/28/2018 Alcohol Use History, Social Habits Yes Total Drinks Per Week 1 Date/Time of Last Drink 03/05/2018update none since apr 13 2018 - Alcohol Use in Last Twelve Months Yes [...] Smoke Exposure No . Physical Examination VS/Measurements Measurements from flowsheet : Measurements 04/12/2019 5:00 EST Height Source Stated Height Entry Format [place] Height/Length, COMORAN (ft) 6 ft Height/Length COMORAN 2 Inch CLINICALHEIGHT 187.96 cm Routine Weight Source Standing scale Routine Weight Entry Format [place] Routine Weight, Pounds 244 lb Routine Weight, Ounces 7 oz Routine Weight Calculation 111.11 kg Body Mass Index (BMI), Routine 31.45 kg/m2 Body Surface Area (BSA), Routine 2.37 m2 04/11/2019 16:28 EST Height Source Stated Height Entry Format [place] Height/Length, COMORAN (ft) 6 ft Height/Length COMORAN 2 Inch CLINICALHEIGHT 187.96 cm [place] Body Weight 81 kg Weight Source Standing scale Weight Entry Format [place] Weight [place] lb 248 lb CLINICALWEIGHT 112.73 kg Body Surface Area (BSA) 2.38 m2 Body Mass Index 31.9 kg/m2 HI , Vitals Signs (last 24 hrs) Last Charted Minimum Maximum Temp 97.8 (APR 12 10:00) 97.8 (APR 12 10:00) 98.1 (APR 11 22:28) Apical HR 80 (APR 12 10:16) 80 (APR 12 10:16) 80 (APR 12 10:16) Mon HR 77 (APR 12:41) 77 (APR 12 09:41) 85 (APR 11 22:28) Resp Rate 16 (APR 12 09:41) 16 (APR 12 03:56) 18 (APR 11 22:28) SBP 118 (APR 12 09:41) 97 (APR 11 22:28) 124 (APR 12:38) DBP 82 (APR 12 09:41) 61 (APR 11 17:30) 82 (APR 12 09:41) MAP 92 (APR 12:41) 65 (APR 11 17:30) 92 (APR 12 09:41) SpO2 98 (APR 12:41) 96 (APR 11 17:30) 100 (APR 12 06:38) General: Alert and oriented, No acute distress. Eye: Pupils are equal, round and reactive to light. HENT: Normocephalic. Neck: No carotid bruit, No jugular venous distention. Respiratory: Lungs are clear to auscultation, Respirations are non-labored. Cardiovascular: Normal rate, Regular rhythm, No murmur, No gallop, Good pulses equal in all extremities, Normal peripheral perfusion, No edema. Gastrointestinal: Non-tender, Normal bowel sounds. Genitourinary: No bladder tenderness. Musculoskeletal: No deformity. Integumentary: No rash, No rashes or ulcerations visualized. Neurologic: No neurologic deficits appreciated. Cognition and Speech: Speech clear and coherent. Psychiatric: Appropriate mood & affect. Review / Management Results review: Labs (Last four charted values) WBC 7.1 (APR 11) HB L 13.6 (APR 11) HCT 40.7 (APR 11) Plt 256 (APR 11) Na L 134 (APR 12) 138 (APR 11) K 3.7 (APR 12) 3.8 (APR 11) Cl L 100 (APR 12) 103 (APR 11) CO2 28 (APR 12) 31 (APR 11) BUN H 25 (APR 12) 19 (APR 11) Cr 1.08 (APR 12) 1.19 (APR 11) Glu R 99 (APR 12) 86 (APR 11) Ca 9.0 (APR 12) 8.8 (APR 11) PT H 13.4 (APR 11) INR H 1.3 (APR 11) PTT 29.3 (APR 11) AST 13 (APR 11) ALT 24 (APR 11) ALK P 63 (APR 11) T Bili H 2.8 (APR 11) PTN 7.0 (APR 11) ALB 3.7 (APR 11) Troponin 0.017 (APR 12) . Impression and Plan Acute on Chronic Left Systolic Heart Failure, NIDCM s/p ICD - ProBNP 4K and vascular congestion on CXR - Increase Lasix 40mg po BID to Bumex 2mg IV BID - Holding Entresto due to low BP from acute illness. Cont Coreg and Aldactone - Start Milrinone 0.375mg/kg/min for LHF and transfer to ICU to monitor this PAF - QTc is 625, decrease Tikosyn to 250mg BID - Cont Xarelto Viral Gastroenteritis - resolving - bland diet- avoid dairy and grease until normal BM - BP back to baseline I Dr Alberts seen and examined patient and devised the above plan of care. Electronically signed by Jackie, [facility] Conversion Gang Miner Cerner at 06/19/2022 10:51 PM CDT documented in this encounter Plan of Treatment Not on file documented as of this encounter Visit Diagnoses Not on filedocumented in this encounter
--- OUTSIDE RECORDS SUMMARY | 2025-01-08 15:11 | XMS_ITS | Encounter Summary ---
Author Organization [email or web address] ([place], [place], [place], [place], [place]) Address [address] [place] [address] Care Team Providers Care Pharmacy Student Name Role Phone Unavailable Primary Care Provider Unavailabl e Encounter Details Date Type Department Care Team (Late st Contact Info) Description 05/08/2019 Transcribed Document [facility] [place] Family Medicine [facility] [place] [address] ProviderMg [place] [facility] [place] [address] Social History Tobacco Use Types Packs/Day Years Used Date Smoking Tobacco: Never Assessed Sex and Gender Information Value Date Recorded Sex Assigned at Not on file Legal Sex Male 1:09 PM CDT Gender Identity Not on file Sexual Orientation Not on file documented as of this encounter Miscellaneous Notes * Cerner Conversion Note - Mg ProviderMD - 05/08/2019 2:43 PM STRAIGHTENER UM Authorization Entered On: 05/08/2019 14:43 EST Performed On: 05/08/2019 14:43 EST by MARLENE THORNTON Rn-Utilization Review Primary Insurance Authorization Authorization and Policy Numbers : Insurance 1 Health Plan: [facility] Policy Number: Authorization Number: Insurance Primary Name : [employer] [id number] Authorization Status-Primary : Awaiting callback Authorization Number-Primary : [id number] Number of Days Authorized-Primary : 4 Day(s) Authorized Service Begin Date-Primary : 05/03/2019 EST Authorized Service End Date-Primary : 05/07/2019 EST Historical Authorization Comments-Primary : Comment 1: Clinicals for CS faxed via [employer] (MARLENE THORNTON Rn-Utilization Review 05/08/2019 14:43) Comment 2: [employer] approved per Katrin for 5 days total --- nrd 3/4 (CHARLA BARRAZA RN-Utilization Review 05/06/2019 13:43) Comment 3: Uploaded continuing stay clinicals (05/06/19) to [facility] via [employer]. (ARMANDO SHANNON, RN-Utilization Review 05/06/2019 12:11) Comment 4: Per [facility], admit approved with auth #[id number] given from 05/03-05/05/19. Next review date 05/06/19. (ARMANDO SHANNON, RN-Utilization Review 05/06/2019 08:05) Comment 5: Uploaded clinicals to [employer] via [employer]. Manually faxed [employer] form. (ARMANDO SHANNON, RN-Utilization Review 05/03/2019 13:31) MARLENE THORNTON, Katarzyna-Utilization Review - 05/08/2019 14:43 EST documented in this encounter Plan of Treatment Not on file documented as of this encounter Visit Diagnoses Not on filedocumented in this encounter
--- OUTSIDE RECORDS SUMMARY | 2025-01-08 15:11 | XMS_ITS | Encounter Summary ---
Author Organization [employer] ([place], [place], [place], [place], [place]) Address [address] [place] [address] Care Team Providers Care Catalog Library Assistant Name Role Phone Unavailable Primary Care Provider Unavailabl e Encounter Details Date Type Department Care Team (Late st Contact Info) Description 04/12/2019 Transcribed Document [facility] [facility] [place] [address] ProviderMg MD [facility] [place] [address] Social History Tobacco Use Types Packs/Day Years Used Date Smoking Tobacco: Never Assessed Sex and Gender Information Value Date Recorded Sex Assigned at Not on file Legal Sex Male 1:09 PM CDT Gender Identity Not on file Sexual Orientation Not on file documented as of this encounter Miscellaneous Notes * Cerner Conversion Note - Historical ProviderMD - 04/12/2019 11:[address] [facility] OT Charges Entered On: 04/12/2019 11:09 EST Performed On: 04/12/2019 11:09 EST by NAHUM CORNELIUS OTR/Kaushal Hager OT Charges Screen For Bomb Loader : 1 NAHUM CORNELIUS OTR/Kaushal - 04/12/2019 11:09 EST documented in this encounter Plan of Treatment Not on file documented as of this encounter Visit Diagnoses Not on filedocumented in this encounter
--- OUTSIDE RECORDS SUMMARY | 2025-01-08 15:11 | XMS_ITS | Encounter Summary ---
Author Organization [employer] ([place], [place], [place], [place], [place]) Address [address] [place] [address] Care Team Providers Care Safe And Vault Installer Name Role Phone Unavailable Primary Care Provider Unavailabl e Encounter Details Date Type Department Care Team (Late st Contact Info) Description 2019 Transcribed Document [facility] [place] Family Medicine [facility] [place] [address] ProviderMg MD [facility] [place] [address] Social History Tobacco Use Types Packs/Day Years Used Date Smoking Tobacco: Never Assessed Sex and Gender Information Value Date Recorded Sex Assigned at Not on file Legal Sex Male 1:09 PM CDT Gender Identity Not on file Sexual Orientation Not on file documented as of this encounter Miscellaneous Notes * Cerner Conversion Note - Mg Ritchie MD - 2019 5:45 PM FLORAL CLERK Patient: JOSE PEARSON Age: 48 years Sex: Male : 1970 Associated Diagnoses: None Author: SO BURDICK MD-CAR Spoke with Dr Davis -we both think [...] will arrange for heart transplant team at [facility]. I had a long discussion with him and his regarding above plan and they feel comfortable going home today.. documented in this encounter Plan of Treatment Not on file documented as of this encounter Visit Diagnoses Not on filedocumented in this encounter
--- OUTSIDE RECORDS SUMMARY | 2025-01-08 15:11 | XMS_ITS | Encounter Summary ---
Author Organization [employer] ([place], [place], [place], [place], [place]) Address [address] [place] [address] Care Team Providers Care Boxcar Weigher Name Role Phone Unavailable Primary Care Provider Unavailabl e Encounter Details Date Type Department Care Team (Late st Contact Info) Description 2019 Transcribed Document [facility] [place] Family Medicine [facility] [place] [address] ProviderMg MD [facility] [place] [id number] Social History Tobacco Use Types Packs/Day Years Used Date Smoking Tobacco: Never Assessed Sex and Gender Information Value Date Recorded Sex Assigned at Not on file Legal Sex Male 1:09 PM CDT Gender Identity Not on file Sexual Orientation Not on file documented as of this encounter Miscellaneous Notes * Cerner Conversion Note - Mg Ritchie MD - 2019 11:44 AM HOOP COILER Patient: JOSE PEARSON Age: 48 years Sex: Male : 1970 Associated Diagnoses: None Author: JONATAN ISABEL MD-CAR Subjective Admitted with decompensated CHF, pt has a Hx of a dilated cardiomyopathy, PAF/RVR, VT. Chief Complaint: Worsening SOB. EKG shows wide paced QRS and prolonged QTC, hence Tikosyn dose has been decreased to 125mcg PO BID from 500mcg PO BID. RBA were d/w the pt and his care provider - he was restarted on a higher dose - Tikosyn 375mcg PO BID and his QTC corrected for wide paced qrs is ~500ms. He does not have good alternatives for VT suppression and has suffered hyperthyroidism from Amiodarone Rx. C/o cramps. Health Status Allergies: Allergic Reactions (All) No Known Medication Allergies Canceled/Inactive Reactions (All) No Known Allergies, Allergies (1) Active Reaction No Known Medication Allergies None Documented Current medications: (Selected) Inpatient Medications Ordered Aldactone: 50 mg, Oral, Daily Colace: 100 mg, Oral, BID FLUoxetine: 20 mg, Oral, At Bedtime Flonase: 1 [place], Nostrils Both, BID Melatonin: 3 mg, Oral, At Bedtime Nitrostat: 0.4 mg, SubLINgual, Q5Min, PRN: Chest Pain Normal Saline 1,000 mL: 10 mL/Hr, IntraVENous Normal Saline Flush: 10 mL, IV Push, Q12H Normal Saline Flush: 10 mL, IV Push, See Comment, PRN: IV Use PRAVAstatin: 80 mg, Oral, At Bedtime Singulair: 10 mg, Oral, Daily Tikosyn: 375 mcg, Oral, BID Tylenol: 650 mg, Oral, Q4H, PRN: Pain (Mild 1-3) Xarelto: 20 mg, Oral, [id number] Zofran: 4 mg, IV Push, Q6H, PRN: Nausea/Vomiting acetaminophen-HYDROcodone 325 mg-5 mg oral tablet: 1 Tab, Oral, Q4H, PRN: Pain (Moderate 4-6) bisoprolol: 2.5 mg, Oral, BID loratadine: 10 mg, Oral, Daily losartan: 25 mg, Oral, BID magnesium sulfate: 2 Gram, 50 mL, 25 mL/Hr, IV Piggyback, On-CALL, PRN: Other (See Comment) metOLazone: 10 mg, Oral, Daily morphine: 2 mg, IV Push, Q5Min, PRN: Pain (Severe 7-10) potassium chloride 10 mEq/50 mL intravenous solution: 10 mEq, 100 mL, 100 mL/Hr, IV Piggyback, Q1H, PRN: Other (See Comment) potassium chloride 20 mEq oral tablet, extended release: 60 mEq, 3 Tab, Oral, On-CALL, PRN: Other (See Comment) Prescriptions Prescribed Tikosyn 250 mcg oral capsule: [...] = 1 Tab, Oral, Daily , Medications (24) Active Scheduled: (14) #NaCl 0.9% *FLUSH* inj 10 mL 10 mL, IV Push, Q12H bisoprolol 5 mg tab 2.5 mg 0.5 Tab, Oral, BID docusate sodium 100 mg cap 100 mg 1 Cap, Oral, BID dofetilide 125 mcg cap 375 mcg 3 Cap, Oral, BID FLUoxetine 20 mg cap 20 mg 1 Cap, Oral, At Bedtime fluticasone 0.05% nasal spray 1 [place], Nostrils Both, BID loratadine 10 mg tab 10 mg 1 Tab, Oral, Daily losartan 50 mg tab 25 mg 0.5 Tab, Oral, BID melatonin 3 mg tab 3 mg 1 Tab, Oral, At Bedtime metolazone 2.5 mg tab 10 mg 4 Tab, Oral, Daily montelukast 10 mg tab 10 mg 1 Tab, Oral, Daily PRAVAstatin sodium 20 mg tab 80 mg 4 Tab, Oral, At Bedtime rivaroxaban 20 mg tab 20 mg 1 Tab, Oral, [id number] spironolactone 25 mg tab 50 mg 2 Tab, Oral, Daily Continuous: (1) NaCl 0.9% 1,000 mL 1,000 mL, IntraVENous, 10 mL/Hr PRN: (9) #NaCl 0.9% *FLUSH* inj 10 mL 10 [...] Q1H potassium chloride CR 20 mEq tab 60 mEq 3 Tab, Oral, On-CALL Problem list: Medical angina / SNOMED CT 625912577 / Confirmed Cardiac defibrillator in place / SNOMED CT 6882533752 / Confirmed interrogated at physicians office---02/22/13 pacemaker / SNOMED CT 9889029071 / Confirmed stroke / SNOMED CT 010768208 / Confirmed he had a stroke when they found the blood clot in valve History of obstructive sleep apnea / IMO 46265172 / Confirmed high cholesterol / SNOMED CT 89203030 / Confirmed hypertension / SNOMED CT 3241032908 / Confirmed myocardial infarction / SNOMED CT 66791396 / Confirmed sesonal allergies / SNOMED CT 6250309860 / Confirmed Resolved: At risk for sleep apnea / IMO 36920664 Resolved: 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 / SNOMED CT 485899507 treated with blood thinners, Active Problems (16) stroke angina Asthma Cardiac defibrillator in place Cardiomyopathy GERD - Gastro-esophageal reflux disease H/O: CVA Heart failure high cholesterol History of obstructive sleep apnea Hyperlipidemia hypertension Hypotension myocardial infarction pacemaker sesonal allergies Objective Vitals Signs (last 24 hrs) Last Charted Minimum Maximum Temp 97.3 (MAY 09 11:19) 97.3 (MAY 09:) 97.5 (MAY 08:) Apical HR 75 (MAY 09:07) 75 (MAY 09:) 83 (MAY 08 22:40) Mon HR 76 (MAY 09:) 71 (MAY 08:) 133 (MAY 09 02:00) Resp Rate 16 (MAY 09:) 16 (MAY 08:) 18 (MAY 08 18:00) SBP 106 (MAY 09:19) 100 (MAY 08 22:40) 128 (MAY 08 18:00) DBP 76 (MAY 09 11:19) 63 (MAY 08 22:40) 89 (MAY 08 18:00) MAP 83 (MAY 09 11:19) 82 (MAY 08 20:00) 96 (MAY 08 18:00) SpO2 98 (MAY 09 07:17) 96 (MAY 08:26) 98 (MAY 08 18:00) TELE: AV sequentially paced rhythm, PVC's. EKG: from yesterday - A paced QTC ~480ms. PHYSICAL EXAM: Neuro - intact Neck - JVP -normal Heart - S1, Split S2 Lungs - largely clear to auscultation Abd - soft non tender, no obvious organomegally Ext - trace bipedal edema Skin - normal/intact Procedure Site - NA No Radiology Results Found Results Review MAY 09 07:23 L 127 L 87 H 37 / 103 4.0 28 1.10 \ MAY 09 07:23 \ 16.3 / H 11.6 348 / 47.4 \ Labs (Last four charted values) WBC H 11.6 (MAY 09) 8.8 (MAY 08) H 10.8 (MAY 07) 7.4 (MAY 04) HB 16.3 (MAY 09) 13.7 (MAY 08) 14.7 (MAY 07) 14.1 (MAY 04) HCT 47.4 (MAY 09) 41.1 (MAY 08) 45.5 (MAY 07) 41.3 (MAY 04) Plt 348 (MAY 09) 292 (MAY 08) H 379 (MAY 07) 307 (MAY 04) Na L 127 (MAY 09) L 134 (MAY 08) L 134 (MAY 07) L 135 (MAY 04) K 4.0 (MAY 09) 3.8 (MAY 08) 3.7 (MAY 08) 4.9 (MAY 08) Cl L 87 (MAY 09) L 98 (MAY 08) L 100 (MAY 07) 102 (MAY 04) CO2 28 (MAY 09) 30 (MAY 08) 27 (MAY 07) 26 (MAY 04) BUN H 37 (MAY 09) 21 (MAY 08) 20 (MAY 07) 20 (MAY 04) Cr 1.10 (MAY 09) 1.04 (MAY 08) 1.04 (MAY 07) 0.97 (MAY 04) Glu R 103 (MAY 09) 81 (MAY 08) H 110 (MAY 07) H 124 (MAY 04) Ca 9.6 (MAY 09) 8.8 (MAY 08) 9.2 (MAY 07) 9.0 (MAY 04) PT H 15.0 (MAY 02) INR H 1.4 (MAY 02) PTT 28.8 (MAY 02) AST 30 (MAY 02) ALT 36 (MAY 02) ALK P 62 (MAY 02) T Bili H 3.6 (MAY 02) PTN 7.5 (MAY 02) ALB 3.6 (MAY 02) Troponin 0.024 (MAY 03) CMP Results (Current Encounter/Past 24 Hours) Bun/Creatinine 33.6 HI 2019 08:04 eGFR NonAfrican >60 mL/min/1.73m2 2019 08:04 Creatinine Level 1.10 mg/dL 2019 08:04 eGFR >60 mL/min/1.73m2 2019 08:04 Sodium Level 127 mmol/L LOW 2019 08:04 Potassium Level 4.0 mmol/L 2019 08:04 Chloride Level 87 mmol/L LOW 2019 08:04 Carbon Dioxide Level 28 mmol/L 2019 08:04 Anion Gap 16 2019 08:04 Blood Urea Nitrogen 37 mg/dL HI 2019 08:04 Glucose Level 103 mg/dL 2019 08:04 Calcium Level 9.6 mg/dL 2019 08:04 Magnesium Level 2.3 mg/dL 05/09/2019 22:00 Impression and Plan VT - suppressed, continue with Tikosyn 375mcg PO BID, QTC to be rechecked later today and tomorrow- note Creat - 1.1. Dilated cardiomyopathy - better compensated, will benefit from advanced CHF management at [facility] for eval for transplant/LVAD. 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 documented in this encounter Plan of Treatment Not on file documented as of this encounter Visit Diagnoses Not on filedocumented in this encounter
--- OUTSIDE RECORDS SUMMARY | 2025-01-08 15:11 | XMS_ITS | Encounter Summary ---
Author Organization [employer] ([place], [place], [place], [place], [place]) Address [address] [place] [address] Care Team Providers Care Service Writer Name Role Phone Unavailable Primary Care Provider Unavailabl e Encounter Details Date Type Department Care Team (Late st Contact Info) Description 05/05/2019 Transcribed Document [facility] [place] [facility] [place] [address] ProviderMg MD [facility] [place] [address] Social History Tobacco Use Types Packs/Day Years Used Date Smoking Tobacco: Never Assessed Sex and Gender Information Value Date Recorded Sex Assigned at Not on file Legal Sex Male 1:09 PM CDT Gender Identity Not on file Sexual Orientation Not on file documented as of this encounter Miscellaneous Notes * Cerner Conversion Note - Historical ProviderMD - 05/05/2019 5:00 PM SUPERINTENDENT TRANSMISSION Chart Check - Review Order Profile Entered On: 05/05/2019 20:01 EST Performed On: 05/05/2019 17:00 EST by YANG CHANG RN Chart Check Powerplans Initiated/Discontinued as Appropriate : Yes YANG CHANG RN - 05/05/2019 20:01 EST documented in this encounter Plan of Treatment Not on file documented as of this encounter Visit Diagnoses Not on filedocumented in this encounter
--- OUTSIDE RECORDS SUMMARY | 2025-01-08 15:11 | XMS_ITS | Encounter Summary ---
Author Organization [employer] ([place], [place], [place], [place], [place]) Address [address] [place] [address] Care Team Providers Care Paper Bag Machine Operator Name Role Phone Unavailable Primary Care Provider Unavailabl e Encounter Details Date Type Department Care Team (Late st Contact Info) Description 04/13/2019 Transcribed Document [facility] [place] [address] ProviderMg MD [address] [place] [id number] Social History Tobacco Use Types Packs/Day Years Used Date Smoking Tobacco: Never Assessed Sex and Gender Information Value Date Recorded Sex Assigned at Not on file Legal Sex Male 1:09 PM CDT Gender Identity Not on file Sexual Orientation Not on file documented as of this encounter Miscellaneous Notes * Cerner Conversion Note - Mg Ritchie MD - 04/13/2019 12:35 PM CARPET MEASURER Patient Education Materials Follows:Medicine and Rehabilitation Cardiac Rehabilitation What is cardiac rehabilitation? Cardiac [...] to another facility. This phase may last 8?12 weeks. You will travel to a cardiac rehabilitation center or another place where rehabilitation is offered. You will slowly increase your activity level while being closely watched by a nurse or therapist. Exercises may include a combination of strength or resistance training and ?cardio? or aerobic movement on a treadmill or [...] 11/29/2008 Document Revised: 09/12/2017 Document Reviewed: 01/04/2016 [employer] Interactive Patient Education ? 2019 [employer] Preventive Health Heart Disease Prevention Heart disease is a [...] lower your blood pressure. If you are 18?39 years of age, have your blood pressure checked every 3?5 years. If you are 40 years of [...] out more about heart disease, visit the [place] [employer]'s website at www.americanheart.org This information is not intended to replace advice given to you by your health care provider. Make sure you discuss any questions you have with your health care provider. Document Released: 10/04/2004 Document Revised: 07/20/2016 Document Reviewed: 04/16/2014 [employer] Interactive Patient Education ? 2019 [employer] documented in this encounter Plan of Treatment Not on file documented as of this encounter Visit Diagnoses Not on filedocumented in this encounter
--- OUTSIDE RECORDS SUMMARY | 2025-01-08 15:11 | XMS_ITS | Encounter Summary ---
Author Organization [employer] ([place], [place], [place], [place], [place]) Address [address] [place] [address] Care Team Providers Care Typo Machine Operator Name Role Phone Unavailable Primary Care Provider Unavailabl e Encounter Details Date Type Department Care Team (Late st Contact Info) Description 05/09/2019 Transcribed Document [facility] [place] [facility] [place] [address] ProviderMg MD [place] [address] Social History Tobacco Use Types Packs/Day Years Used Date Smoking Tobacco: Never Assessed Sex and Gender Information Value Date Recorded Sex Assigned at Not on file Legal Sex Male 1:09 PM CDT Gender Identity Not on file Sexual Orientation Not on file documented as of this encounter Miscellaneous Notes * Cerner Conversion Note - Historical ProviderMD - 05/09/2019 5:00 PM TERMINATION CLERK Chart Check - Review Order Profile Entered On: 05/09/2019 19:57 EST Performed On: 05/09/2019 17:00 EST by VESTA EUBANKS RN Chart Check Powerplans Initiated/Discontinued as Appropriate : Yes All Active Orders Reviewed : Yes VESTA EUBANKS RN - 05/09/2019 19:57 EST documented in this encounter Plan of Treatment Not on file documented as of this encounter Visit Diagnoses Not on filedocumented in this encounter
--- OUTSIDE RECORDS SUMMARY | 2025-01-08 15:11 | XMS_ITS | Encounter Summary ---
Author Organization [employer] ([place], [place], [place], [place], [place]) Address [address] [place] [address] Care Team Providers Care Lab Intern Name Role Phone Unavailable Primary Care Provider Unavailabl e Encounter Details Date Type Department Care Team (Late st Contact Info) Description 05/07/2019 Transcribed Document [facility] [place] [address] [place] [address] ProviderMg MD [facility] [place], [place] [address] Social History Tobacco Use Types Packs/Day Years Used Date Smoking Tobacco: Never Assessed Sex and Gender Information Value Date Recorded Sex Assigned at Not on file Legal Sex Male 1:09 PM CDT Gender Identity Not on file Sexual Orientation Not on file documented as of this encounter Miscellaneous Notes * Cerner Conversion Note - Historical ProviderMD - 05/07/2019 2:00 AM INSTRUMENTATION CONTROLS ENGINEER Administrative Executive Details Entered On: 05/07/2019 8:34 EST Performed On: 05/07/2019 2:00 EST by Reyna Nicolas, RN Order Details Transport Mode Order Detail : Wheelchair Isolation Precautions Order Detail : Standard Precautions Order Detail : N/A IV Order Detail : 1 Oxygen Order Detail : 0 Nurse Collect Order Detail : 0 Lift/Transfer : Independent Central Line Order Detail : No Room Service : Not Appropriate Arterial Line : No Reyna Nicolas, MARYCARMEN - 05/07/2019 8:34 EST Electronically signed by Morales Mejia Conversion Tube Closing Machine Operator Cerner at 06/19/2022 11:05 PM CDT documented in this encounter Plan of Treatment Not on file documented as of this encounter Visit Diagnoses Not on filedocumented in this encounter
--- OUTSIDE RECORDS SUMMARY | 2025-01-08 15:11 | XMS_ITS | Encounter Summary ---
Author Organization [employer] ([place], [place], [place], [place], [place]) Address [address] [place] [address] Care Team Providers Care Automobile Service Station Mechanic Name Role Phone Unavailable Primary Care Provider Unavailabl e Encounter Details Date Type Department Care Team (Late st Contact Info) Description 05/08/2019 Transcribed Document [facility] [place] [facility] [place] [address] ProviderMg MD [facility] [place] [address] Social History Tobacco Use Types Packs/Day Years Used Date Smoking Tobacco: Never Assessed Sex and Gender Information Value Date Recorded Sex Assigned at Not on file Legal Sex Male 1:09 PM CDT Gender Identity Not on file Sexual Orientation Not on file documented as of this encounter Miscellaneous Notes * Cerner Conversion Note - Mg Ritchie MD - 05/08/2019 5:52 PM HEALTH UNIT COORDINATOR DATE OF SERVICE: 05/08/2019 PROCEDURE: Right heart catheterization and insertion of CardioMEMS device, left posterior pulmonary artery INDICATIONS FOR PROCEDURE: Recurrent acute left systolic heart failure, [employer] Heart [employer] functional class 4 with multiple admissions for acute left systolic heart failure in the past year. DESCRIPTION OF PROCEDURE: Following an informed written consent, patient was brought to the cardiac catheterization laboratory in stable condition where conscious sedation was performed with intravenous Versed and fentanyl for more than 23 minutes. The right groin was prepped and draped in the usual sterile fashion and anesthetized with 1% Xylocaine solution. Using a single wall puncture technique, an 8-Nigerian side-port sheath was introduced into the right common femoral vein. Sheath aspirated and flushed with heparinized saline solution. An 8-Nigerian Goodwin-Familia thermodilution catheter was advanced under fluoroscopy and engaged selectively in the right atrium. Selective right atrial pressures obtained. Catheter then advanced into the RV apex and selective RV pressures obtained. Catheter then advanced into the left main pulmonary artery and selective left main pulmonary artery pressure was obtained. Catheter then wedged in the wedge position and pulmonary capillary wedge pressure obtained. Balloon deflated and the catheter retracted into the left main pulmonary artery. Cardiac output and index obtained by Marlene method. The system was then removed. The 8-Nigerian side-port sheath in the right common femoral vein was exchanged over a 0.035 inch wire to a 12-Nigerian sideport sheath. The sheath was aspirated and flushed with heparinized saline solution. The Goodwin-Familia thermodilution catheter was then advanced again over a 0.018 wire and engaged selectively in the left posterior pulmonary artery. Selective angiography was performed to the left posterior pulmonary artery as a third order vessel. Good visualization was noted. The catheter was removed while the wire was left in place. A CardioMEMS catheter with device attached was advanced through the sheath over the wire and deployed successfully in the left posterior pulmonary vein. Pressures were equalized and Goodwin-Familia thermodilution catheter readvanced and engaged selectively in the right main pulmonary artery. Pulmonary artery pressures were re-obtained and calibrated with the CardioMEMS. The Goodwin-Familia catheter was removed, venous side-port sheath pulled. Firm pressure applied to the right groin for 20 minute minutes. Good hemostasis noted. He was transferred to his room in stable condition. RESULTS: Hemodynamics in mmHg; mean RA 10, RV 56/12, PA 56/26, mean 38. Mean pulmonary capillary wedge pressure 34. Cardiac output by Marlene 3.69 L/minute. Cardiac index by Marlene 1.6 L/minute per sq m. IMPRESSION: 1. Acute on chronic left systolic heart failure with markedly elevated wedge pressures and poor cardiac output. 2. Successful insertion of CardioMEMS device to the left pulmonary artery. PLAN: Aggressively diurese. /[id number] Leydi Hobbs MD AE/GRACE / AE / MODL /[id number] documented in this encounter Plan of Treatment Not on file documented as of this encounter Visit Diagnoses Not on filedocumented in this encounter
--- OUTSIDE RECORDS SUMMARY | 2025-01-08 15:11 | XMS_ITS | Encounter Summary ---
Author Organization [employer] ([place], [place], [place], [place], [place]) Address [address] [place] [address] Care Team Providers Care Ship Keeper Name Role Phone Unavailable Primary Care Provider Unavailabl e Encounter Details Date Type Department Care Team (Late st Contact Info) Description 04/13/2019 Transcribed Document [facility] [place] [facility] [place] [address] ProviderMg MD [facility] [place] [address] Social History Tobacco Use Types Packs/Day Years Used Date Smoking Tobacco: Never Assessed Sex and Gender Information Value Date Recorded Sex Assigned at Not on file Legal Sex Male 1:09 PM CDT Gender Identity Not on file Sexual Orientation Not on file documented as of this encounter Miscellaneous Notes * Cerner Conversion Note - Mg ProviderMD - 04/13/2019 12:46 PM ACUTE CARE NURSE Nursing Discharge Summary Entered On: 04/13/2019 12:46 EST Performed On: 04/13/2019 12:46 EST by Peg Huynh blockmason Documentation Discharge Date/Time : 04/13/2019 13:13 EST Patient Disposition, General : Discharge Discharge To : Home with ambulatory/outpatient follow-up Peg Huynh RN - 04/13/2019 12:46 EST Electronically signed by aJckie [facility] Conversion Plug Cutting Machine Operator Jessica at 06/19/2022 11:04 PM CDT documented in this encounter Plan of Treatment Not on file documented as of this encounter Visit Diagnoses Not on filedocumented in this encounter
--- OUTSIDE RECORDS SUMMARY | 2025-01-08 15:11 | XMS_ITS | Encounter Summary ---
Author Organization [employer] ([place], [place], [place], [place], [place]) Address [address] [place] [address] Care Team Providers Care Break Out Man Name Role Phone Unavailable Primary Care Provider Unavailabl e Encounter Details Date Type Department Care Team (Late st Contact Info) Description 05/06/2019 Transcribed Document [facility] [place] [facility] [place] [address] ProviderMg MD [facility] [place] [address] Social History Tobacco Use Types Packs/Day Years Used Date Smoking Tobacco: Never Assessed Sex and Gender Information Value Date Recorded Sex Assigned at Not on file Legal Sex Male 1:09 PM CDT Gender Identity Not on file Sexual Orientation Not on file documented as of this encounter Miscellaneous Notes * Cerner Conversion Note - Mg ProviderMD - 05/06/2019 3:00 AM LANDING SUPPORT SPECIALIST Nutrition Assessment Entered On: 05/06/2019 8:41 EST Performed On: 05/06/2019 14:53 EST by Katrin Arias RD, LD Nutrition Assessment Nutrition Assessment Reason : Follow Up Katrin Arias RD, LD - 05/06/2019 8:41 EST Nutrition Recommendations Dietitian Recommendations : (05/05) RD rescreen; pt discussed in ICU rounds. Plans for cardio mem today. Pt has been on a cardiac diet eating 50-100% x 4 meals recorded. Labs and meds reviewed. Pt continues with milrinone @ 0.375mcg/kg/min. LBM -receiving colace. No skin [...] and diet edu needs or available prn. Katrin Arias, LUCITA, LD - 05/06/2019 14:52 EST Electronically signed by Jackie, [facility] Conversion Tobacco Dipper Cerner at 06/19/2022 10:48 PM CDT documented in this encounter Plan of Treatment Not on file documented as of this encounter Visit Diagnoses Not on filedocumented in this encounter
--- OUTSIDE RECORDS SUMMARY | 2025-01-08 15:11 | XMS_ITS | Encounter Summary ---
Author Organization [employer] ([place], [place], [place], [place], [place]) Address [address] [place] [address] Care Team Providers Care Leather Cleaner Name Role Phone Unavailable Primary Care Provider Unavailabl e Encounter Details Date Type Department Care Team (Late st Contact Info) Description 05/08/2019 Transcribed Document [facility] [place] [address] [place] [address] ProviderMg [place] [address] Social History Tobacco Use Types Packs/Day Years Used Date Smoking Tobacco: Never Assessed Sex and Gender Information Value Date Recorded Sex Assigned at Not on file Legal Sex Male 1:09 PM CDT Gender Identity Not on file Sexual Orientation Not on file documented as of this encounter Miscellaneous Notes * Cerner Conversion Note - Mg ProviderMD - 05/08/2019 5:59 PM SUBGRADE ROLLER OPERATOR Cardiac and Pulmonary Outpatient [facility] Entered On: 05/14/2019 15:44 EDT Performed On: 05/14/2019 15:44 EDT by EDITH CHAVIS director stars and Pulmonary Outpatient [facility] Phase 2 Cardiac Rehab Criteria Met : Heart failure (HF) Cardiac Outpatient Rehab Evaluation Comment : Order faxed to [place] due to pts location. EDITH CHAVIS RN - 05/14/2019 15:44 EDT documented in this encounter Plan of Treatment Not on file documented as of this encounter Visit Diagnoses Not on filedocumented in this encounter
--- OUTSIDE RECORDS SUMMARY | 2025-01-08 15:11 | XMS_ITS | Encounter Summary ---
Author Organization [employer] ([place], [place], [place], [place], [place]) Address [address] [place] [address] Care Team Providers Care Academic Program Specialist Name Role Phone Unavailable Primary Care Provider Unavailabl e Encounter Details Date Type Department Care Team (Late st Contact Info) Description 05/03/2019 Transcribed Document [facility] [place] [address] [place] [address] ProviderMg MD [address] [place] [address] Social History Tobacco Use Types Packs/Day Years Used Date Smoking Tobacco: Never Assessed Sex and Gender Information Value Date Recorded Sex Assigned at Not on file Legal Sex Male 1:09 PM CDT Gender Identity Not on file Sexual Orientation Not on file documented as of this encounter Miscellaneous Notes * Cerner Conversion Note - Historical ProviderMD - 05/03/2019 8:40 AM FIGURINE MAKER Therapy Screen, OT Entered On: 05/03/2019 8:59 EST Performed On: 05/03/2019 8:40 EST by NAHUM CORNELIUS OTR/Kaushal Therapy Screen, [...] denies any need for therapy at this time. , who is present at bedside, confirms this. No further skilled OT indicated. NAHUM CORNELIUS OTR/Kaushal - 05/03/2019 8:57 EST documented in this encounter Plan of Treatment Not on file documented as of this encounter Visit Diagnoses Not on filedocumented in this encounter
--- OUTSIDE RECORDS SUMMARY | 2025-01-08 15:11 | XMS_ITS | Encounter Summary ---
Author Organization [employer] ([place], [place], [place], [place], [place]) Address [address] [place] [address] Care Team Providers Care National [employer] Member Name Role Phone Unavailable Primary Care Provider Unavailabl e Encounter Details Date Type Department Care Team (Late st Contact Info) Description 05/02/2019 Transcribed Document [facility] [place] [facility] [place] [address] ProviderMg MD [facility] [place] [address] Social History Tobacco Use Types Packs/Day Years Used Date Smoking Tobacco: Never Assessed Sex and Gender Information Value Date Recorded Sex Assigned at Not on file Legal Sex Male 1:09 PM CDT Gender Identity Not on file Sexual Orientation Not on file documented as of this encounter Miscellaneous Notes * Cerner Conversion Note - Mg ProviderMD - 05/02/2019 4:10 PM BREAKFAST COOK Nutrition Assessment Entered On: 05/03/2019 8:32 EST Performed On: 05/03/2019 13:19 EST by Katrin Arias RD, BAR[place] Nutrition Assessment Nutrition Assessment Reason : Automatic referral Katrin Arias RD, LD - 05/03/2019 8:32 EST Nutrition Recommendations Dietitian Recommendations : (05/03) RD rec'd routine cardiology consult. Pt [...] diet edu needs or available prn. Katrin Arias RD, LD - 05/03/2019 13:17 EST Electronically signed by Morales Mejia Conversion Math And Sciences Department Chair Jessica at 06/19/2022 10:56 PM CDT documented in this encounter Plan of Treatment Not on file documented as of this encounter Visit Diagnoses Not on filedocumented in this encounter
--- OUTSIDE RECORDS SUMMARY | 2025-01-08 15:11 | XMS_ITS | Encounter Summary ---
Author Organization [employer] ([place], [place], [place], [place], [place]) Address [address] [place] [address] Care Team Providers Care Rustic Terrazzo Setter Name Role Phone Unavailable Primary Care Provider Unavailabl e Encounter Details Date Type Department Care Team (Late st Contact Info) Description 04/12/2019 Transcribed Document [facility] [place] [facility] [place] [address] ProviderMg MD [facility] [place] [id number] Social History Tobacco Use Types Packs/Day Years Used Date Smoking Tobacco: Never Assessed Sex and Gender Information Value Date Recorded Sex Assigned at Not on file Legal Sex Male 1:09 PM CDT Gender Identity Not on file Sexual Orientation Not on file documented as of this encounter Miscellaneous Notes * Cerner Conversion Note - Mg ProviderMD - 04/12/2019 2:39 PM DOG BEHAVIORIST UM Authorization Entered On: 04/12/2019 14:40 EST Performed On: 04/12/2019 14:39 EST by MARLENE THORNTON Rn-Utilization Review Primary Insurance Authorization Authorization and Policy Numbers : Insurance 1 Health Plan: [employer] Policy Number: [id number] Authorization Number: Insurance 2 Health Plan: MEDICARE Policy Number: [id number] Authorization Number: Insurance Primary Name : Ruben WILSON Authorization Status-Primary : Awaiting callback Authorized Service Begin Date-Primary : 04/11/2019 EST Authorization Comments-Primary : Clinicals and [employer] Administrators form faxed to [employer]. Historical Authorization Comments-Primary : No Authorization Comments Found MARLENE THORNTON Rn-Utilization Review - 04/12/2019 14:39 EST documented in this encounter Plan of Treatment Not on file documented as of this encounter Visit Diagnoses Not on filedocumented in this encounter
--- OUTSIDE RECORDS SUMMARY | 2025-01-08 15:11 | XMS_ITS | Encounter Summary ---
Author Organization [employer] ([place], [place], [place], [place], [place]) Address [address] [place] [address] Care Team Providers Care Electrocardiograph Technician Name Role Phone Unavailable Primary Care Provider Unavailabl e Encounter Details Date Type Department Care Team (Late st Contact Info) Description 05/04/2019 Transcribed Document [facility] [place] Family Medicine [facility] [place] [address] ProviderMg MD [facility] [place] [id number] Social History Tobacco Use Types Packs/Day Years Used Date Smoking Tobacco: Never Assessed Sex and Gender Information Value Date Recorded Sex Assigned at Not on file Legal Sex Male 1:09 PM CDT Gender Identity Not on file Sexual Orientation Not on file documented as of this encounter Miscellaneous Notes * Cerner Conversion Note - Mg Ritchie MD - 05/04/2019 11:36 AM BAR USEFUL OR BUSSER Patient: JOSE PEARSON Age: 48 years Sex: Male : 1970 Associated Diagnoses: None Author: SO BURDICK MD-CAR Subjective Chief complaint Arrhythmia noted yesterday, he is less SOBtoday. Health Status Allergies: Allergic Reactions (Selected) No Known Medication Allergies, Allergies (1) Active Reaction No Known Medication Allergies None Documented Current medications: (Selected) Inpatient Medications Ordered Bumex: 2 mg, IV Push, BID Colace: 100 mg, Oral, BID Core.125 mg, Oral, BID FLUoxetine: 20 mg, Oral, At Bedtime Flonase: 1 Clarion, Nostrils Both, BID Melatonin: 3 mg, Oral, [...] extended release: 40 mEq, 2 Tab, Oral, TID potassium chloride 20 mEq [...] = 1 Tab, Oral, Daily , Medications (25) Active Scheduled: (13) #NaCl 0.9% *FLUSH* inj 10 mL 10 [...] At Bedtime fluticasone 0.05% nasal spray 1 Clarion, Nostrils Both, BID loratadine 10 mg tab 10 mg 1 Tab, Oral, Daily melatonin 3 mg tab 3 mg 1 Tab, Oral, At Bedtime montelukast 10 mg tab 10 mg 1 Tab, Oral, Daily potassium chloride CR 20 mEq tab 40 mEq 2 Tab, Oral, TID PRAVAstatin sodium 20 mg tab 80 mg 4 Tab, Oral, At Bedtime spironolactone 25 mg tab 25 mg 1 [...] Problem list: Medical angina / SNOMED CT 241686127 / Confirmed Cardiac defibrillator in place / SNOMED CT 2024274630 / Confirmed interrogated at physicians office---02/22/13 pacemaker / SNOMED CT 2024865676 / Confirmed stroke / SNOMED CT 611880855 / Confirmed he had a stroke when they found the blood clot in valve History of obstructive sleep apnea / IMO 45958830 / Confirmed high cholesterol / SNOMED CT 02528939 / Confirmed hypertension / SNOMED CT 8758270290 / Confirmed myocardial infarction / SNOMED CT 72279263 / Confirmed sesonal allergies / SNOMED CT 0816550972 / Confirmed, Active Problems (16) stroke angina Asthma Cardiac defibrillator in place Cardiomyopathy GERD - Gastro-esophageal reflux disease H/O: CVA Heart failure high cholesterol History of obstructive sleep apnea Hyperlipidemia hypertension Hypotension myocardial infarction pacemaker sesonal allergies Objective VS/Measurements Vitals Signs (last 24 hrs) Last Charted Minimum Maximum Temp 98.6 (Apr 04:00) 97.6 (Apr 00:00) 99.1 (MAY 03 12:00) Apical HR 99 (Apr 09:16) 99 (Apr 09:16) H 119 (MAY 03 21:48) Mon HR 98 (Apr 07:15) 80 (Apr 02:45) 126 (MAY 03 19:45) Resp Rate H 26 (Apr 07:15) 17 (MAY 03 19:15) H 48 (Apr 04:30) SBP 119 (Apr 07:15) L 89 (Apr 03:15) H 160 (Apr 04:15) DBP 62 (Apr 07:15) L 6 (MAY 03 20:15) H 99 (MAY 03 18:00) MAP 84 (Apr 07:15) 64 (Apr 03:15) 110 (MAY 03 18:00) SpO2 L 92.00 (Apr 07:15) L 89.00 (MAY 03 19:30) 99.00 (MAY 03 15:30) General: Alert and oriented. Neck: No carotid bruit, No jugular venous distention. Respiratory: Lungs are clear to auscultation, Respirations are non-labored, Breath sounds are equal, Symmetrical chest wall expansion. Cardiovascular: Normal rate, Regular rhythm, No murmur, Good pulses equal in all extremities, Normal peripheral perfusion, No edema, PMI is displaced laterally, S3 gallop. Gastrointestinal: Normal bowel sounds. Integumentary: Warm, Dry, [place]. Results Review General results Telemetry SR/ST PACS PVCs Goldy reviewed Impression and Plan Acute on Chronic Left [...] Echo during primacor infusion to asses LV reserve PAF-currently SR - tikosyn 250 bid , QTC allowance to 550 with ICD - ICD insitu -xarelto on hold for possible cardiomems monday hypokalemia -Corrected hypomag -Corrected Electronically signed by Jackie [facility] Conversion Java Web Architect Cerner at 06/19/2022 11:12 PM CDT documented in this encounter Plan of Treatment Not on file documented as of this encounter Visit Diagnoses Not on filedocumented in this encounter
--- OUTSIDE RECORDS SUMMARY | 2025-01-08 15:11 | XMS_ITS | Encounter Summary ---
Author Organization [employer] ([place], [place], [place], [place], [place]) Address [address] [place] [address] Care Team Providers Care Oracle Fusion Middleware Developer Name Role Phone Unavailable Primary Care Provider Unavailabl e Encounter Details Date Type Department Care Team (Late st Contact Info) Description 04/12/2019 Transcribed Document [facility] [place] [address] [place] [address] ProviderMg MD [facility] [place] [address] Social History Tobacco Use Types Packs/Day Years Used Date Smoking Tobacco: Never Assessed Sex and Gender Information Value Date Recorded Sex Assigned at Not on file Legal Sex Male 1:09 PM CDT Gender Identity Not on file Sexual Orientation Not on file documented as of this encounter Miscellaneous Notes * Cerner Conversion Note - Historical ProviderMD - 04/12/2019 10:12 PM RN HOUSE SUPERVISOR Sepsis Screening Tool Entered On: 04/12/2019 22:51 EST Performed On: 04/12/2019 22:12 EST by Duncan Rudolph Rn-Resource Provider Notification Provider Notified of Concerns/Results : Other: Sepsis alert Provider Response : Other: provider is already aware Chain of Command Initiated : Yes Rapid Response Team Called : No Results to Provider Comment : Reported to Charge Nurse Lizzy Duncan Hansen Rn-Resource - 04/12/2019 22:49 EST documented in this encounter Plan of Treatment Not on file documented as of this encounter Visit Diagnoses Not on filedocumented in this encounter
--- OUTSIDE RECORDS SUMMARY | 2025-01-08 15:11 | XMS_ITS | Encounter Summary ---
Author Organization [facility] ([place], [place], [place], [place], [place]) Address [address] [place] [address] Care Team Providers Care Outside Plant Technician Name Role Phone Unavailable Primary Care Provider Unavailabl e Encounter Details Date Type Department Care Team (Late st Contact Info) Description 05/03/2019 Transcribed Document [facility] [place] Family Medicine [address] [place] [address] ProviderMg MD [facility] [place] [address] Social History Tobacco Use Types Packs/Day Years Used Date Smoking Tobacco: Never Assessed Sex and Gender Information Value Date Recorded Sex Assigned at Not on file Legal Sex Male 1:09 PM CDT Gender Identity Not on file Sexual Orientation Not on file documented as of this encounter Miscellaneous Notes * Cerner Conversion Note - Historical ProviderMD - 05/03/2019 5:00 AM PERMIT AGENT Height and Weight, Routine Entered On: 05/03/2019 6:56 EST Performed On: 05/03/2019 5:00 EST by Carlos Ojeda RN Height and Weight, Routine Routine Weight Source : Bed scale Routine Weight Entry Format : Metric Routine Weight, Kilograms : 104.5 kg(Converted to: 230 lb 6 oz) Routine Weight Calculation : 104.5 kg Height Source : Stated Height Entry Format : [place] Height, Feet : 6 ft Height, Inches : 0 Inch Clinical Height : 182.88 cm Body Surface Area (BSA), Routine : 2.26 m2 Body Mass Index (BMI), Routine : 31.25 kg/m2 Carlos Ojeda RN - 05/03/2019 6:55 EST Electronically signed by Jackie [facility] Conversion Kettle Fry Cook Operator Cerner at 06/19/2022 11:12 PM CDT documented in this encounter Plan of Treatment Not on file documented as of this encounter Visit Diagnoses Not on filedocumented in this encounter
--- OUTSIDE RECORDS SUMMARY | 2025-01-08 15:11 | XMS_ITS | Encounter Summary ---
Author Organization [employer] ([place], [place], [place], [place], [place]) Address [address] [place] [address] Care Team Providers Care Dental Services Director Name Role Phone Unavailable Primary Care Provider Unavailabl e Encounter Details Date Type Department Care Team (Late st Contact Info) Description 04/13/[address] [facility] [place] Family Medicine [facility] [place] [address] ProviderMg MD [facility] [place] [address] Social History Tobacco Use Types Packs/Day Years Used Date Smoking Tobacco: Never Assessed Sex and Gender Information Value Date Recorded Sex Assigned at Not on file Legal Sex Male 1:09 PM CDT Gender Identity Not on file Sexual Orientation Not on file documented as of this encounter Miscellaneous Notes * Cerner Conversion Note - Historical ProviderMD - 04/13/2019 5:00 AM ADJUSTER LEADER Height and Weight, Routine Entered On: 04/13/2019 5:17 EST Performed On: 04/13/2019 5:00 EST by Duncan Rudolph Rn-Resource Height and Weight, Routine Routine Weight Source : Bed scale Routine Weight Entry Format : Metric Routine Weight, Kilograms : 112.4 kg(Converted to: 247 lb 13 oz) Routine Weight Calculation : 112.4 kg Height Source : Stated Height Entry Format : [place] Height, Feet : 6 ft Height, Inches : 2 Inch Clinical Height : 187.96 cm Body Surface Area (BSA), Routine : 2.38 m2 Body Mass Index (BMI), Routine : 31.82 kg/m2 Duncan Rudolph Rn-Resource - 04/13/2019 5:15 EST Electronically signed by Jackie [facility] Conversion Immunopathologist Cerner at 06/19/2022 11:08 PM CDT documented in this encounter Plan of Treatment Not on file documented as of this encounter Visit Diagnoses Not on filedocumented in this encounter
--- OUTSIDE RECORDS SUMMARY | 2025-01-08 15:11 | XMS_ITS | Encounter Summary ---
Author Organization [employer] ([place], [place], [place], [place], [place]) Address [address] [place] [address] Care Team Providers Care Plate Maker Name Role Phone Unavailable Primary Care Provider Unavailabl e Encounter Details Date Type Department Care Team (Late st Contact Info) Description 05/08/2019 Transcribed Document [facility] [place] [facility] [place] [address] ProviderMg MD [facility] [address] Social History Tobacco Use Types Packs/Day Years Used Date Smoking Tobacco: Never Assessed Sex and Gender Information Value Date Recorded Sex Assigned at Not on file Legal Sex Male 1:09 PM CDT Gender Identity Not on file Sexual Orientation Not on file documented as of this encounter Miscellaneous Notes * Cerner Conversion Note - Mg ProviderMD - 05/08/2019 2:43 PM HELP DESK INTERNSHIP UM Authorization Entered On: 05/08/2019 14:43 EST Performed On: 05/08/2019 14:43 EST by MARLENE THORNTON Rn-Utilization Review Primary Insurance Authorization Authorization and Policy Numbers : Insurance 1 [facility] Policy Number: Authorization Number: Insurance Primary Name : [facility] Administators [id number] Authorization Status-Primary : Admit approved Authorization Number-Primary : [id number] Number of Days Authorized-Primary : 4 Day(s) Authorized Service Begin Date-Primary : 05/03/2019 EST Authorized Service End Date-Primary : 05/07/2019 EST Authorization Comments-Primary : Clinicals for CS faxed via [employer] Historical Authorization Comments-Primary : Comment 1: [place] approved per Katrin for 5 days total --- nrd 3/4 (CHARLA BARRAZA RN-Utilization Review 05/06/2019 13:43) Comment 2: Uploaded continuing stay clinicals (05/06/19) to [employer] via [employer]. (ARMANDO SHANNON, RN-Utilization Review 05/06/2019 12:11) Comment 3: Per [facility], admit approved with auth #[id number] given from 05/03-05/05/19. Next review date 05/06/19. (ARMANDO SHANNON, RN-Utilization Review 05/06/2019 08:05) Comment 4: Uploaded clinicals to [facility] administrators via [employer]. Manually faxed [employer] form. (ARMANDO SHANNON, RN-Utilization Review 05/03/2019 13:31) MARLENE THORNTON Rn-Utilization Review - 05/08/2019 14:43 EST documented in this encounter Plan of Treatment Not on file documented as of this encounter Visit Diagnoses Not on filedocumented in this encounter
--- OUTSIDE RECORDS SUMMARY | 2025-01-08 15:11 | XMS_ITS | Encounter Summary ---
Author Organization [employer] ([place], [place], [place], [place], [place]) Address [address] [place] [address] Care Team Providers Care Dobby Looms Pegger Name Role Phone Unavailable Primary Care Provider Unavailabl e Encounter Details Date Type Department Care Team (Late st Contact Info) Description 04/11/2019 Transcribed Document [facility] [place] [facility] [place] [address] ProviderMg MD [facility] [place] [address] Social History Tobacco Use Types Packs/Day Years Used Date Smoking Tobacco: Never Assessed Sex and Gender Information Value Date Recorded Sex Assigned at Not on file Legal Sex Male 1:09 PM CDT Gender Identity Not on file Sexual Orientation Not on file documented as of this encounter Miscellaneous Notes * Cerner Conversion Note - Mg ProviderMD - 04/11/2019 4:28 PM CORPORATE DEVELOPMENT ASSOCIATE Admission History, Adult Entered On: 04/11/2019 17:15 EST Performed On: 04/11/2019 16:28 EST by Jennie Patel RN Advance Directive Patient has Advance Directive *Q : No, patient refuses Advance Directive information Jennie Patel RN - 04/11/2019 17:09 EST Anesthesia/Transfusion History Family History of Anesthesia Reaction : No prior transfusion(s) Transfusion History : Prior anesthesia reaction Type of Anesthesia Reaction : Excessive somnolence Family History of Anesthesia Reaction : None Jennie Patel RN - 04/11/2019 17:09 EST Functional Assessment Living Situation : Home Patient Lives With : Adult Child/Children, Spouse Current Home Treatments : CPAP Jennie Patel RN - 04/11/2019 17:09 EST General Info Support Person/Patient Provider Network Manager : Yes Support Person/Pt Rep Name : Neel Pearson-- Contact Password : neel Support Person/Pt Rep Contact Information : [phone] Want Family/Rep/Phys Notified of Admit : No Emergency Contact #1 : Beth Jiang Emergency Contact #1 Emergency Contact #1 Relationship : Emergency Contact #2 : na Emergency Contact #2 Phone Number : amaris Emergency Contact #2 Relationship : na Primary Language : Peruvian Preferred Communication Mode : Verbal Communication Barrier : None Jennie Patel RN - 04/11/2019 17:09 EST Fall Risk Scales ABCs Fall Injury Risk Identification : Coagulation ABC Fall Injury Risk : Moderate to high injury risk SHARMA Hx Falls Immediate/Within 3 Months : No Sharma Secondary Diagnosis : Yes SHARMA Use of Ambulatory Aid : None SHARMA IV Therapy or IV Access : No Sharma Gait/Transferring : Normal, bedrest, immobile Sharma Mental Status : Oriented to own ability Sharma Fall Risk Score : 15 SHARMA Fall Scale Risk Level : 0-24 Low Risk [place] Fall Interventions : Adequate lighting, Assistive devices within reach, Bed in low position, Call device within reach, Fall prevention handout/education per facility policy, Hourly comfort/safety rounds, Non-slip footwear, Personal items within reach, Reinforced to call for assistance before getting out of bed, Room free of clutter/spills, Upper side-rails up, Wheels locked, Wires/Cords secured Jennie Patel RN - 04/11/2019 17:09 EST Health Histories Smoking Status : Never (less than 100 in lifetime; none in last 30 days) Smokeless Tobacco Status : Smokeless tobacco user within last 30 days Desires Tobacco Cessation Medication : No Reason for No Tobacco Cessation Medication : Refuses FDA approved medications Jennie Patel RN - 04/11/2019 17:09 EST Social History (As Of: 04/11/2019 17:15:47 EST) Tobacco: Use in Last 12 Months: [...] Updated: 05/28/2018 10:30:15 EDT by BRITTON OSBORNE, MARYCARMEN) Substance Abuse: Drug Use Hx: No. Use in Last 12 Months: No. (Last Updated: 02/12/2017 17:32:08 EST by SERGEI GARCIA, RN) Height and Weight, Clinical Dosing Height Source : Stated Height Entry Format : [place] Height, Feet : 6 ft(Converted to: 183 cm, 72 Inch) Height, Inches : 2 Inch(Converted to: 0 ft 2 Inch, 5.08 cm) Clinical Height : 187.96 cm Weight Source : Standing scale Weight Entry Format : [place] Clinical Dosing Weight : 112.73 kg Weight, Pounds : 248 lb Body Surface Area (BSA) : 2.38 m2 Body Mass Index : 31.9 kg/m2 (HI) [place] Body Weight : 81 kg Jennie Patel RN - 04/11/2019 17:09 EST Infectious Disease History Physical contact outside [place] in the last 30 days : No Infectious Disease History : Chicken pox/Shingles, Influenza, Measles, Mumps Tuberculosis Symptoms : None Jennie Patel RN - 04/11/2019 17:09 EST Influenza Vaccine Asmt, Adult Previous Vaccines from Immunization Schedule : No qualifying data available. Influenza Immunization, Current Season : Yes Jennie Patel RN - 04/11/2019 17:09 EST Pneumococcal Vaccine Previous Vaccines from Immunization Schedule : No qualifying data available. Pneumonia Immunization Received : No Pneumococcal Risk Assessment < Age 65 : None Jennie Patel RN - 04/11/2019 17:09 EST Order Details Order Detail : N/A Jennie Patel RN - 04/11/2019 17:09 EST Nutrition History Adaptive Feeding Equipment : Regular Oral Medication Administration : By mouth Eating Poorly Due to Decreased Appetite : No Unplanned Weight Loss in Past 3-6 Months : No Malnutrition Screening Tool Total(mal) : 0 Malnutrition Screening Tool Risk Level : Patient not at risk Jennie Patel RN - 04/11/2019 17:09 EST [place] Suicide Severity Rating Scale (C-SSRS) CSSRS Past Month Wish to be : No CSSRS Past Month Suicidal Thoughts : No CSSRS Lifetime Suicide Behavior : No Suicide Severity Rating Score : 0 Suicide Severity Rating : No Additional Care Required at this time Jennie Patel RN - 04/11/2019 17:09 EST Psychosocial History Chronic/Terminal Illness w/Freq Visits : No Do You Have a History of the Following? : Patient denies history Currently in Unsafe Situation : No Jennie Patel RN - 04/11/2019 17:09 EST Sleep Apnea Risk Assmt BiPAP/CPAP Ordered for Home Use : Yes Hx of Obstructive Sleep Apnea Diagnosis : Yes BiPAP/CPAP Used at Home : Yes Age over 50 Years Old : No Gender Male : Yes Jennie Patel RN - 04/11/2019 17:09 EST Valuables and Belongings Valuables and Belongings : Clothing, Jewelry, Personal items Clothing : Common streetwear Clothing Disposition : With patient Jewelry : Ring Jewelry Disposition : With patient Personal Items : Cell phone, Wallet Personal Items Disposition : With patient Jennie Patel RN - 04/11/2019 17:09 EST documented in this encounter Plan of Treatment Not on file documented as of this encounter Visit Diagnoses Not on filedocumented in this encounter
--- OUTSIDE RECORDS SUMMARY | 2025-01-08 15:11 | XMS_ITS | Encounter Summary ---
Author Organization [employer] ([place], [place], [place], [place], [place]) Address [address] [place] [address] Care Team Providers Care Renal Technician Name Role Phone Unavailable Primary Care Provider Unavailabl e Encounter Details Date Type Department Care Team (Late st Contact Info) Description 05/07/2019 Transcribed Document [facility] [place] Family Medicine [facility] [place] [address] ProviderMg MD [facility] [place] [address] Social History Tobacco Use Types Packs/Day Years Used Date Smoking Tobacco: Never Assessed Sex and Gender Information Value Date Recorded Sex Assigned at Not on file Legal Sex Male 1:09 PM CDT Gender Identity Not on file Sexual Orientation Not on file documented as of this encounter Miscellaneous Notes * [employer]ner Conversion Note - Mg ProviderMD - 05/07/2019 11:30 AM ANIMATION PRODUCER Rapid Response Team Documentation Entered On: 05/07/2019 13:14 EST Performed On: 05/07/2019 11:30 EST by RAJAT NAZARIO RN Rapid Response Event Rapid Response Team Arrival Time : 05/07/2019 11:30 EST Rapid Response Team Event End Time : 05/07/2019 11:40 EST Rapid Response Team Initiation Reason : Post ICU follow up Rapid Response Event Location Type : Other: 324 Rapid Response Team Initiation Reason Details : Post 24 hour ICU transfer out follow up. Rapid Response Admission Diagnosis : Heart failure, unspecified Heart failure, unspecified Rapid Response Medical Background : stroke (Medical) Asthma (Patient Stated) Cardiac defibrillator in place (Medical) Cardiomyopathy (Patient Stated) GERD - Gastro-esophageal reflux disease (Patient Stated) H/O: CVA (Patient Stated) Heart failure (Patient Stated) History of obstructive sleep apnea (Medical) Hyperlipidemia (Patient Stated) Hypotension (Patient Stated) angina (Medical) high cholesterol (Medical) hypertension (Medical) myocardial infarction (Medical) pacemaker (Medical) sesonal allergies (Medical) Rapid Response Allergies : Substance Category Reactions Severity No Known Medication Allergies Drug Rapid Response Recent Vital Signs : 05/07/2019 09:37 Systolic Blood Pressure 91 05/07/2019 09:37 Diastolic Blood Pressure 61 05/07/2019 09:37 Heart Rate Monitored 83 05/07/2019 10:27 Heart Rate, Apical 81 05/07/2019 09:37 Respiratory Rate 20 05/07/2019 09:37 Temperature, Fahrenheit 97.3 05/07/2019 09:37 Oxygen Saturation 94 Rapid Response Recent Lab Results : 05/05/2019 15:10 Sodium Level LOW 135 (136-146) 05/05/2019 15:10 Potassium Level 4.0 (3.5-5.1) 05/05/2019 15:10 Calcium Level 9.0 (8.5-10.1) 05/04/2019 03:44 Magnesium Level 2.2 (1.5-2.4) 05/05/2019 15:10 Chloride Level 102 (102-112) 05/05/2019 15:10 Carbon Dioxide Level 26 (21-32) 05/05/2019 15:10 Blood Urea Nitrogen 20 (7-22) 05/05/2019 15:10 Creatinine Level 0.97 (0.70-1.30) 05/02/2019 17:42 PT HI 15.0 (9.6-11.5) 05/02/2019 17:42 INR HI 1.4 (0.9-1.1) 05/02/2019 17:42 PTT 28.8 (24.2-31.8) 05/05/2019 15:10 Hgb 14.1 (13.7-17.5) 05/05/2019 15:10 Hct 41.3 (40.1-51.0) 05/05/2019 15:10 RBC 4.71 (4.63-6.08) 05/05/2019 15:10 WBC 7.4 (3.9-10.0) 05/05/2019 15:10 Platelet Count 307 (163-369) 05/03/2019 03:52 Troponin I Ultra 0.024 (0.015-0.045) Weight/BMI : Clinical Weight/BMI CLINICALWEIGHT: 104.55 kg (05/02/19 15:13:00) Body Mass Index: 31.3 kg/m2 High (05/02/19 15:13:00) Rapid Response Team Recommendation/Response : Reviewed medical record, discussed care with primary RNGracia. Pt stable @ this time w no needs from UPS DRIVER. Instructed Gracia to call UPS DRIVER if further needs arise. Patient Condition at End of Event : No S/S of Acute Distress Patient Disposition Post Event : No change in location/level of care Rapid Response Renal Technician #1 : RAJAT NAZARIO, RAJAT RIGGS RN - 05/07/2019 13:07 EST Electronically signed by Jackie [facility] Conversion Computer Consultant Cerner at 06/19/2022 11:05 PM CDT documented in this encounter Plan of Treatment Not on file documented as of this encounter Visit Diagnoses Not on filedocumented in this encounter
--- OUTSIDE RECORDS SUMMARY | 2025-01-08 15:11 | XMS_ITS | Encounter Summary ---
Author Organization [employer] ([place], [place], [place], [place], [place]) Address [address] [place] [address] Care Team Providers Care Camp Dining Room Attendant Name Role Phone Unavailable Primary Care Provider Unavailabl e Encounter Details Date Type Department Care Team (Late st Contact Info) Description 05/03/2019 Transcribed Document [facility] [place] Family Medicine [address] [place] [address] ProviderMg MD [address] [place], [place] [address] Social History Tobacco Use Types Packs/Day Years Used Date Smoking Tobacco: Never Assessed Sex and Gender Information Value Date Recorded Sex Assigned at Not on file Legal Sex Male 1:09 PM CDT Gender Identity Not on file Sexual Orientation Not on file documented as of this encounter Miscellaneous Notes * Cerner Conversion Note - Historical ProviderMD - 05/03/2019 1:31 PM FIREMAN UM Authorization Entered On: 05/03/2019 13:33 EST Performed On: 05/03/2019 13:31 EST by ARMANDO SHANNON RN-Utilization Review Primary Insurance Authorization Authorization and Policy Numbers : Insurance 1 Health Plan: [facility] Policy Number: Authorization Number: Insurance Primary Name : [employer] Administators Authorization Status-Primary : Awaiting callback Authorized Service Begin Date-Primary : 05/03/2019 EST Authorization Comments-Primary : Uploaded clinicals to [employer] administrators via [employer]. Manually faxed [employer] form. Historical Authorization Comments-Primary : No Authorization Comments Found ARMANDO SHANNON RN-Utilization Review - 05/03/2019 13:31 EST documented in this encounter Plan of Treatment Not on file documented as of this encounter Visit Diagnoses Not on filedocumented in this encounter
--- OUTSIDE RECORDS SUMMARY | 2025-01-08 15:11 | XMS_ITS | Encounter Summary ---
Author Organization [employer] ([place], [place], [place], [place], [place]) Address [address] [place] [address] Care Team Providers Care Lithopone Charger Name Role Phone Unavailable Primary Care Provider Unavailabl e Encounter Details Date Type Department Care Team (Late st Contact Info) Description 05/02/2019 Transcribed Document [facility] [place] Family Medicine [facility] [place] [address] ProviderMg MD [facility] [place] [address] Social History Tobacco Use Types Packs/Day Years Used Date Smoking Tobacco: Never Assessed Sex and Gender Information Value Date Recorded Sex Assigned at Not on file Legal Sex Male 1:09 PM CDT Gender Identity Not on file Sexual Orientation Not on file documented as of this encounter Miscellaneous Notes * Cerner Conversion Note - Historical ProviderMD - 05/02/2019 4:10 PM OUTSIDE RIGGER Education-Cardiac Topics Entered On: 05/02/2019 18:53 EST Performed On: 05/02/2019 16:10 EST by Chelo Cardenas RN Teaching/Learning Assessment Barriers To Learning : None evident Individuals Taught : Patient, Spouse Readiness to Learn : Explanation Chelo Cardenas RN - 05/02/2019 18:53 EST Electronically signed by Jackie [facility] Conversion Director Of Optimization Cerner at 06/19/2022 10:59 PM CDT documented in this encounter Plan of Treatment Not on file documented as of this encounter Visit Diagnoses Not on filedocumented in this encounter
--- OUTSIDE RECORDS SUMMARY | 2025-01-08 15:12 | XMS_ITS | Encounter Summary ---
Author Organization [employer] ([place], [place], [place], [place], [place]) Address [address] [place] [address] Care Team Providers Care Negative Checker Name Role Phone Unavailable Primary Care Provider Unavailabl e Encounter Details Date Type Department Care Team (Late st Contact Info) Description 05/06/[address] [facility] [place] Family Medicine [facility] [place] [address] ProviderMg MD [facility] [place], [place] [address] Social History Tobacco Use Types Packs/Day Years Used Date Smoking Tobacco: Never Assessed Sex and Gender Information Value Date Recorded Sex Assigned at Not on file Legal Sex Male 1:09 PM CDT Gender Identity Not on file Sexual Orientation Not on file documented as of this encounter Miscellaneous Notes * Cerner Conversion Note - Historical ProviderMD - 05/06/2019 2:00 AM PATIENT RELATIONS SPECIALIST Order Tracer Details Entered On: 05/06/2019 6:56 EST Performed On: 05/06/2019 2:00 EST by Tracy Severino RN Order Details Transport Mode Order Detail : Wheelchair Isolation Precautions Order Detail : Standard Precautions Order Detail : N/A IV Order Detail : 1 Oxygen Order Detail : 1 Nurse Collect Order Detail : 1 Lift/Transfer : Independent Central Line Order Detail : No Room Service : Not Appropriate Arterial Line : No Tracy Severino RN - 05/06/2019 6:51 EST Electronically signed by Morales Mejia Conversion Unit Manager Convenience Stores Cerner at 06/19/2022 11:00 PM CDT documented in this encounter Plan of Treatment Not on file documented as of this encounter Visit Diagnoses Not on filedocumented in this encounter
--- OUTSIDE RECORDS SUMMARY | 2025-01-08 15:12 | XMS_ITS | Encounter Summary ---
Author Organization [employer] ([place], [place], [place], [place], [place]) Address [address] [place] [address] Care Team Providers Care Product Safety Consultant Name Role Phone Unavailable Primary Care Provider Unavailabl e Encounter Details Date Type Department Care Team (Late st Contact Info) Description 05/04/2019 Transcribed Document [facility] [place] Family Medicine [facility] [place] [address] ProviderMg MD [place] [address] Social History Tobacco Use Types Packs/Day Years Used Date Smoking Tobacco: Never Assessed Sex and Gender Information Value Date Recorded Sex Assigned at Not on file Legal Sex Male 1:09 PM CDT Gender Identity Not on file Sexual Orientation Not on file documented as of this encounter Miscellaneous Notes * Cerner Conversion Note - Historical ProviderMD - 05/04/2019 5:00 AM ART TEACHER Chart Check - Review Order Profile Entered On: 05/04/2019 6:34 EST Performed On: 05/04/2019 5:00 EST by Carlos Ojead RN Chart Check Powerplans Initiated/Discontinued as Appropriate : Yes All Active Orders Reviewed : Yes Carlos Ojeda RN - 05/04/2019 6:34 EST documented in this encounter Plan of Treatment Not on file documented as of this encounter Visit Diagnoses Not on filedocumented in this encounter
--- OUTSIDE RECORDS SUMMARY | 2025-01-08 15:12 | XMS_ITS | Encounter Summary ---
Author Organization [employer] ([place], [place], [place], [place], [place]) Address [address] [place] [address] Care Team Providers Care Order Desk Caller Name Role Phone Unavailable Primary Care Provider Unavailabl e Encounter Details Date Type Department Care Team (Late st Contact Info) Description 05/06/2019 Transcribed Document [facility] [place] Family Medicine [address] [place] [address] ProviderMg MD [facility] [place] [address] Social History Tobacco Use Types Packs/Day Years Used Date Smoking Tobacco: Never Assessed Sex and Gender Information Value Date Recorded Sex Assigned at Not on file Legal Sex Male 1:09 PM CDT Gender Identity Not on file Sexual Orientation Not on file documented as of this encounter Miscellaneous Notes * Cerner Conversion Note - Historical ProviderMD - 05/06/2019 5:00 PM SET UP MECHANIC Chart Check - Review Order Profile Entered On: 05/06/2019 19:45 EST Performed On: 05/06/2019 17:00 EST by Gracia Carl, Technical Program ManagerHealth Unit Coord Chart Check Powerplans Initiated/Discontinued as Appropriate : Yes All Active Orders Reviewed : Yes Gracia Carl Technical Program Manager-Health Unit Coord - 05/06/2019 19:45 EST documented in this encounter Plan of Treatment Not on file documented as of this encounter Visit Diagnoses Not on filedocumented in this encounter
--- OUTSIDE RECORDS SUMMARY | 2025-01-08 15:12 | XMS_ITS | Encounter Summary ---
Author Organization [employer] ([place], [place], [place], [place], [place]) Address [address] [place] [address] Care Team Providers Care Physical Education Aide Name Role Phone Unavailable Primary Care Provider Unavailabl e Encounter Details Date Type Department Care Team (Late st Contact Info) Description 05/06/2019 Transcribed Document [facility] [place] Family Medicine [facility] [place] [address] ProviderMg MD [facility] [place] [address] Social History Tobacco Use Types Packs/Day Years Used Date Smoking Tobacco: Never Assessed Sex and Gender Information Value Date Recorded Sex Assigned at Not on file Legal Sex Male 1:09 PM CDT Gender Identity Not on file Sexual Orientation Not on file documented as of this encounter Miscellaneous Notes * Cerner Conversion Note - Historical ProviderMD - 05/06/2019 10:07 AM MANAGER EQUIPMENT Event Note Entered On: 05/06/2019 10:08 EST Performed On: 05/06/2019 10:07 EST by Erika Robles RN Event Note Event Date/Time : 05/06/2019 10:07 EST Description of Event : Per Mayito TORIBIO pt can be given Erika Alonso RN - 05/06/2019 10:07 EST Electronically signed by Jackie [facility] Conversion Poultry Husbandry Worker Cerner at 06/19/2022 11:01 PM CDT documented in this encounter Plan of Treatment Not on file documented as of this encounter Visit Diagnoses Not on filedocumented in this encounter
--- OUTSIDE RECORDS SUMMARY | 2025-01-08 15:12 | XMS_ITS | Encounter Summary ---
Author Organization [facility] Address [address] [place] [address] Care Team Providers Care Private Watchman Name Role Phone Herberth Perez MD Primary Care Provider Katrin Oviedo RN Unavailable [phone] Zaida Lafleur EDITOR MAP Unavailable [phone] Gracia Petersen EDITOR MAP Unavailable Yunior Solorzano MD Unavailable Ross Baez DO Unavailable [phone] Edith Aleman RN Unavailable Unavailable Reason for Visit * Reason Comments Med Refill Encounter Details Date Type Department Care Team (Late st Contact Info) Description 07/13/2022 Refill [facility] [place] [address] [facility] [place] [phone] Melisa Vazquze MD [address] [place] [phone] Social History Tobacco Use Types Packs/Day Years Used Date Smoking Tobacco: Never Smokeless Tobacco: Former Chew Quit: 05/06/2019 Alcohol Use Standard Drinks/Week Comments Not Currently 0 (1 standard drink = 0.6 oz pure alcohol) Alcoholic Drinks/day: Social alcohol use PHQ-2 Answer Date Recorded Patient Health Questionnaire-2 Score 0 06/15/2022 CAGE ASSESSMENT Answer Date Recorded Cage unable [...] drink first t janine in the morning (EYE-SACK CLEANING HAND) to steady your nerves or to get [...] suspected to have Coronavirus/COVID-19? No / Unsure 06/15/2022 9:47 AM EDT documented as of this encounter Plan of Treatment Upcoming Encounters Date Type Department Care Team (Late st Contact Info) Description 01/28/2025 9:00 AM EST Appointment Cardiac Imaging [address] [place] [address] 01/28/2025 10:00 AM EST Ancillary Procedure [facility] [place] 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 MDRO Escalation Plan Comment:MDRO escalation plan through 05/06/24 04/15/2024 04/15/2024 04/20/2024 5:[address] Assessment Noted Time A fall risk assessment has been complete d for the patient 06/15/2022 10:14 AM EDT A Body Mass Index follow-up plan has been documented for the patient 06/30/2022 12:59 PM EDT documented as of this encounter Care Teams Private Watchman Relationship Specialty Start Date End Date Herberth Perez MD [address] [place] [address] [place] [address] PCP - General 07/17/20 Katrin Oviedo, RN [facility] [address] [place] [address] VAD Coordinator Cardiology 08/06/20 10/21/24 Zaida Lafleur APRN [address] [place] [phone] Nurse Practitioner Advanced Heart Failure and Transplant Cardiology 08/06/20 06/11/23 Gracia Petersen APRN [address] [place] [phone] Nurse Practitioner Internal Medicine 08/06/20 Yunior Solorzano MD [address] [address] Consulting Physician Gastroenterology 07/18/22 Ross Baez DO [address] [place] [phone] Surgeon Cardiothoracic Surgery 07/18/22 Edith Aleman, SECURITY ASSESSOR VAD Coordinator 10/14/24 documented as of this encounter
--- OUTSIDE RECORDS SUMMARY | 2025-01-08 15:12 | XMS_ITS | Encounter Summary ---
Author Organization [facility] Address [address] [place] [address] Care Team Providers Care Stretcher And Drier Name Role Phone Herberth Perez MD Primary Care Provider [phone] Katrin Oviedo RN Unavailable [phone] Zaida Lafleur TREE FRUIT AND NUT FARMING SUPERVISOR Unavailable [phone] Gracia Petersen TREE FRUIT AND NUT FARMING SUPERVISOR Unavailable Yunior Solorzano MD Unavailable [phone] Ross Baez DO Unavailable Edith Aleman RN Unavailable Unavailable Reason for Visit * Reason Comments Med Refill Encounter Details Date Type Department Care Team (Late st Contact Info) Description 06/23/2022 [facility] [address] [place] [phone] Mayra Arroyo MD [address] [facility] 7th [facility] [address] [place] [address] Social History Tobacco Use Types Packs/Day Years [...] drink first t janine in the morning (EYE-HORSE STUD WORKER) to steady your nerves or to get [...] AM EST Appointment Cardiac Imaging [address] [place] [address] 01/28/2025 10:00 AM EST Ancillary Procedure [facility] [place] [address] [place] [address] documented as of this encounter Visit Diagnoses [...] plan has been documented for the patient 06/15/2022 3:44 PM EDT documented as of this encounter Care Teams Stretcher And Drier Relationship Specialty Start Date End Date [place], Herberth Robins MD [address] [place] [address] [place] [address] PCP - General 07/17/20 Katrin Oviedo, RN [facility] [address] [place] [address] VAD Coordinator Cardiology 08/06/20 10/21/24 Zaida Lafleur APRN [address] [place] [phone] Nurse Practitioner Advanced Heart Failure and Transplant Cardiology 08/06/20 06/11/23 Gracia Petersen APRN [address] [place] [phone] Nurse Practitioner Internal Medicine 08/06/20 Yunior Solorzano MD [address] [address] Consulting Physician Gastroenterology 07/18/22 Ross Baez, [address] [place] [phone] Surgeon Cardiothoracic Surgery 07/18/22 Edith Aleman, LACER AND TIER VAD Coordinator 10/14/24 documented as of this encounter
--- OUTSIDE RECORDS SUMMARY | 2025-01-08 15:12 | XMS_ITS | Encounter Summary ---
Author Organization [email or web address] ([place], [place], [place], [place], [place]) Address [address] [place] [address] Care Team Providers Care Wardrobe Technician Name Role Phone Unavailable Primary Care Provider Unavailabl e Encounter Details Date Type Department Care Team (Late st Contact Info) Description 05/07/2019 Transcribed Document [facility] [place] [facility] [place] [address] ProviderMg MD [facility] [place] [address] Social History Tobacco Use Types Packs/Day Years Used Date Smoking Tobacco: Never Assessed Sex and Gender Information Value Date Recorded Sex Assigned at Not on file Legal Sex Male 1:09 PM CDT Gender Identity Not on file Sexual Orientation Not on file documented as of this encounter Miscellaneous Notes * [employer]ner Conversion Note - Mg Ritchie MD - 05/07/2019 1:19 PM OPEN HEARTH HELPER Patient: JOSE PEARSON Age: 48 years Sex: Male : 1970 Associated Diagnoses: None Author: KATY FRIAS MD-CAR Subjective Asymptomatic, I feel great. QTC 618 this morning. CardioMEMS approved for tomorrow. Health Status Allergies: Allergic Reactions (Selected) No Known Medication Allergies, Allergies (1) Active Reaction No Known Medication Allergies None Documented Current medications: (Selected) Inpatient Medications Ordered Bumex: 2 mg, IV Push, BID Colace: 100 mg, Oral, BID FLUoxetine: 20 mg, Oral, At Bedtime Ferrlecit + Sodium Chloride 0.9% intravenous solution 250 mL: 250 mg, 20 mL, 135 mL/Hr, IV Piggyback, Daily Flonase: 1 Medora, Nostrils Both, BID Melatonin: 3 mg, Oral, At Bedtime Nitrostat: 0.4 mg, SubLINgual, Q5Min, PRN: Chest Pain Normal Saline 1,000 mL: 10 mL/Hr, IntraVENous Normal Saline Flush: 10 mL, IV Push, Q12H Normal Saline Flush: 10 mL, IV Push, See Comment, PRN: IV Use PRAVAstatin: 80 mg, Oral, At Bedtime Singulair: 10 mg, Oral, Daily Tikosyn: 125 mcg, Oral, BID Tylenol: 650 mg, Oral, [...] IV Piggyback, On-CALL, PRN: Other (See Comment) morphine: 2 mg, IV Push, Q5Min, PRN: [...] Last Charted Minimum Maximum Temp 97.3 (MAY 06 09:37) 97.3 (MAY 06 09:37) 98 (MAY 06 01:52) Apical HR 81 (MAY 06 10:27) 81 (MAY 06 10:27) 94 (MAY 05 22:00) Mon HR 83 (MAY 06 09:37) 81 (MAY 05 16:45) 93 (MAY 05 15:45) Resp Rate 20 (MAY 06 09:37) 15 (MAY 05 13:30) H 49 (MAY 05 15:00) SBP 91 (MAY 06 09:37) 91 (MAY 06 09:37) 129 (MAY 05 16:00) DBP 61 (MAY 06 09:37) 60 (MAY 06 06:32) H 93 (MAY 05 14:15) MAP 66 (MAY 06 09:37) 66 (MAY 06 09:37) 99 (MAY 05 14:15) SpO2 94 (MAY 06 09:37) L 91.00 (MAY 05 13:45) 98 (MAY 06 06:32) General: Alert and oriented, No acute distress. Neck: No carotid bruit, No jugular venous distention. Respiratory: Lungs are clear to auscultation, Respirations are non-labored. Cardiovascular: Normal rate, Regular rhythm, No murmur, No edema. Gastrointestinal: Non-distended. Musculoskeletal: Normal ROM in bed. Integumentary: Warm, Dry, No rash. Neurologic: No deficits appreciated. Psychiatric: Cooperative, Appropriate mood & affect. 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 avila for gerardo clip eval - s/p 72h milrinone this admission - Entresto and Coreg changed to Bisoprolol and Losartan due to low BP and ventricular ectopy - Continue bumex 2 BID - He's had EF <20% since 2007. Typical survival rate is 1 year and he is now 12 years past diagnosis. - CardioMEMS approved and will be implanted tomorrow afternoon - Transfuse iron for low saturation and ferritin less than 200 - 2 D Echo during primacor/milrenone infusion to asses LV reserve - no real change, EF still arond 20-25% Prolonged QTc Interval - questionably due to Milrinone as he has been stable on same dose of Tikosyn since last admission and QTc was worsening here - Milrine drip is discontinued - Tikosyn now reduced in half again to 125mg - daily EKG PAF-currently SR - tikosyn 250 bid , QTC allowance to 550 with ICD (was 552 05/06/19 - will cont to monitor closely) - ICD insitu -Hold Xarelto for CardioMEMS NSVT - numerous episodes - common for him with [facility] - will try changing from Coreg 3.125mg to Bisoprolol 2.5mg BID and see if that helps any Iatrogenic Hypotension - change Entresto to Losartan, cont low dose Coreg and Aldactone hypokalemia -Corrected hypomag -Corrected Iron Deficiency -corrected I Dr Alberts seen and examined patient and devised the above plan of care. documented in this encounter Plan of Treatment Not on file documented as of this encounter Visit Diagnoses Not on filedocumented in this encounter
--- OUTSIDE RECORDS SUMMARY | 2025-01-08 15:12 | XMS_ITS | Encounter Summary ---
Author Organization [facility] Address [address] [place] [address] Care Team Providers Care Binder Coverstitch Name Role Phone Herberth Perez MD Primary Care Provider [phone] Gracia Petersen HOSPITAL NURSE Unavailable [phone] Yunior Solorzano MD Unavailable [phone] Ross Baez DO Unavailable [phone] Edith Aleman RN Unavailable Unavailable Encounter Details Date Type Department Care Team (Late st Contact Info) Description 12/24/2024 Orders Only [facility] [place] [address] [place] [phone] Edith Aleman, ARTILLERY OR NAVAL GUNFIRE OBSERVER Social History Tobacco Use Types Packs/Day Years [...] place to sleep or slept in a nursing home (including now)? No 12/19/2023 PHQ-9 Answer Date [...] time in the past 12 m [facility], were you homeless or living in a nursing home (including now)? No 04/08/2024 CAGE ASSESSMENT Answer [...] drink first t janine in the morning (EYE-FEATHER SEPARATOR) to steady your nerves or to get rid of a hangover? 0 09/19/2021 CAGE Questionnaire Score 0 022 Utilities Answer Date Recorded In the past 12 months has th e electric, gas, oil, or water company threatened to shut off services in your [...] AM EST Appointment Cardiac Imaging [address] [place] [address] 01/28/2025 10:00 AM EST Ancillary Procedure [facility] [place] [address] [place] [address] documented as of this encounter Goals Goal Patient Goal Type Associated Problems Recent Progress Patient-Stated? Author LVAD Short Term Goal General On track( 024 11:53 AM EDT) Yes Katrin Oviedo RN Note: - 07/04/23: Patient states he wants to attend a wedding in November in [place] LVAD Pressfitter Goal General On track( 024 11:53 AM EDT) Yes Katrin Oviedo RN Note: - 07/04/23: Patient states he wants to meet his grandchild when they are born in November documented as of this encounter Visit Diagnoses [...] documented as of this encounter Care Teams Binder Coverstitch Relationship Specialty Start Date End Date Herberth Perez MD [address] [place] [address] [place] [address] PCP - General 07/17/20 Gracia Petersen APRN [address] [place] [address] Nurse Practitioner Internal Medicine 08/06/20 Yunior Solorzano MD [address] [place] [address] Consulting Physician Gastroenterology 07/18/22 Ross Baez DO [address] [phone] Surgeon Cardiothoracic Surgery 07/18/22 Edith lAeman, ARTILLERY OR NAVAL GUNFIRE OBSERVER VAD Coordinator 10/14/24 documented as of this encounter
--- OUTSIDE RECORDS SUMMARY | 2025-01-08 15:12 | XMS_ITS | Encounter Summary ---
Author Organization [employer] ([place], [place], [place], [place], [place]) Address [address] [place] [address] Care Team Providers Care Human Resources Benefits Manager Name Role Phone Unavailable Primary Care Provider Unavailabl e Encounter Details Date Type Department Care Team (Late st Contact Info) Description 05/06/2019 Transcribed Document [facility] [place] Family Medicine [facility] [place] [address] ProviderMg MD [facility] [place] [address] Social History Tobacco Use Types Packs/Day Years Used Date Smoking Tobacco: Never Assessed Sex and Gender Information Value Date Recorded Sex Assigned at Not on file Legal Sex Male 1:09 PM CDT Gender Identity Not on file Sexual Orientation Not on file documented as of this encounter Miscellaneous Notes * Cerner Conversion Note - Mg ProviderMD - 05/06/2019 1:43 PM MACHINE CUTTER UM Authorization Entered On: 05/06/2019 13:44 EST Performed On: 05/06/2019 13:43 EST by CHARLA BARRAZA RN-Utilization Review Primary Insurance Authorization Authorization and Policy Numbers : Insurance 1 Health Plan: [facility] Policy Number: Authorization Number: Insurance Primary Name : [facility] Administators [id number] Authorization Status-Primary : Admit approved Authorization Number-Primary : [id number] Number of Days Authorized-Primary : 4 Day(s) Authorized Service Begin Date-Primary : 05/03/2019 EST Authorized Service End Date-Primary : 05/07/2019 EST Authorization Comments-Primary : Ruben approved per Katrin for 5 days total --- nrd 05/07 Historical Authorization Comments-Primary : Comment 1: Uploaded continuing stay clinicals (05/06/19) to [facility] via [employer]. (ARMANDO SHANNON RN-Utilization Review 05/06/2019 12:11) Comment 2: Per [employer], admit approved with auth #[id number] given from 05/03-05/05/19. Next review date 05/06/19. (ARMANDO SHANNON, RN-Utilization Review 05/06/2019 08:05) Comment 3: Uploaded clinicals to [facility] administrators via [employer]. Manually faxed [employer] form. (ARMANDO SHANNON, MARYCARMEN-Utilization Review 05/03/2019 13:31) CHARLA BARRAZA RN-Utilization Review - 05/06/2019 13:43 EST documented in this encounter Plan of Treatment Not on file documented as of this encounter Visit Diagnoses Not on filedocumented in this encounter
--- OUTSIDE RECORDS SUMMARY | 2025-01-08 15:12 | XMS_ITS | Encounter Summary ---
Author Organization Healthcare Address [address] [place] [address] Care Team Providers Care Atm Technician Name Role Phone Herberth Perez MD Primary Care Provider [phone] Gracia Petersen CENTRAL SUPPLY TECHNICIAN Unavailable [phone] Yunior Solorzano MD Unavailable [phone] Ross Baez DO Unavailable [phone] Edith Aleman RN Unavailable Unavailable Encounter Details Date Type Department Care Team (Late st Contact Info) Description 12/25/2024 [facility] [place] [address] [place] [address] Edith Aleman, ASSESSMENT RN Social History Tobacco Use Types Packs/Day Years [...] place to sleep or slept in a fdc (including now)? No 12/19/2023 PHQ-9 Answer Date [...] any time in the past 12 m [facility], were you homeless or living in a fdc (including now)? No 04/08/2024 CAGE ASSESSMENT Answer [...] drink first t janine in the morning (EYE-AUTOMOTIVE FINANCE MANAGER) to steady your nerves or to get [...] AM EST Appointment Cardiac Imaging [address] [place] [address] 01/28/2025 10:00 AM EST Ancillary Procedure [facility] [place] [address] [place] [address] documented as of this encounter Goals Goal Patient Goal Type Associated Problems Recent Progress Patient-Stated? Author LVAD Short Term Goal General On track( 024 11:53 AM EDT) Yes Katrin Oviedo RN Note: - 07/04/23: Patient states he wants to attend a wedding in November in [place] LVAD Usp Goal General On track( 024 11:53 AM [...] documented as of this encounter Care Teams Atm Technician Relationship Specialty Start Date End Date Herberth Perez MD [address] [place] [address] [place] [address] PCP - General 07/17/20 Gracia Petersen APRN [address] [place] [address] Nurse Practitioner Internal Medicine 08/06/20 Yunior Solorzano MD [address] [place] [address] Consulting Physician Gastroenterology 07/18/22 Ross Baez DO [address] [id number] Surgeon Cardiothoracic Surgery 07/18/22 Edith Aleman, ASSESSMENT RN VAD Coordinator 10/14/24 documented as of this encounter
--- OUTSIDE RECORDS SUMMARY | 2025-01-08 15:12 | XMS_ITS | Encounter Summary ---
Author Organization [employer] ([place], [place], [place], [place], [place]) Address [address] [place] [address] Care Team Providers Care Manager Clinical Applications Name Role Phone Unavailable Primary Care Provider Unavailabl e Encounter Details Date Type Department Care Team (Late st Contact Info) Description 05/06/2019 Transcribed Document [facility] [place] [facility] [place] [address] ProviderMg MD [facility] [place], [place] [address] Social History Tobacco Use Types Packs/Day Years Used Date Smoking Tobacco: Never Assessed Sex and Gender Information Value Date Recorded Sex Assigned at Not on file Legal Sex Male 1:09 PM CDT Gender Identity Not on file Sexual Orientation Not on file documented as of this encounter Miscellaneous Notes * Cerner Conversion Note - Historical ProviderMD - 05/06/2019 5:00 AM SEAM STAY STITCHER Chart Check - Review Order Profile Entered On: 05/06/2019 6:51 EST Performed On: 05/06/2019 5:00 EST by Tracy Severino RN Chart Check Powerplans Initiated/Discontinued as Appropriate : Yes All Active Orders Reviewed : Yes Tracy Severino RN - 05/06/2019 6:51 EST documented in this encounter Plan of Treatment Not on file documented as of this encounter Visit Diagnoses Not on filedocumented in this encounter
--- OUTSIDE RECORDS SUMMARY | 2025-01-08 15:12 | XMS_ITS | Encounter Summary ---
Author Organization [employer] ([place], [place], [place], [place], [place]) Address [address] [place] [address] Care Team Providers Care Rural Carrier Associate Name Role Phone Unavailable Primary Care Provider Unavailabl e Encounter Details Date Type Department Care Team (Late st Contact Info) Description 05/06/[address] [facility] [place] Family Medicine [address] [place] [address] ProviderMg MD [facility] [place] [address] Social History Tobacco Use Types Packs/Day Years Used Date Smoking Tobacco: Never Assessed Sex and Gender Information Value Date Recorded Sex Assigned at Not on file Legal Sex Male 1:09 PM CDT Gender Identity Not on file Sexual Orientation Not on file documented as of this encounter Miscellaneous Notes * Cerner Conversion Note - Mg ProviderMD - 05/06/2019 9:45 AM POWDER SHOVELER Spiritual Care Short Form Entered On: 05/06/2019 11:45 EST Performed On: 05/06/2019 9:45 EST by ANIKA MANRIQUEZ Chaplain-Non Cert General Information, Spiritual Care Spiritual Care Referred by : Interdisciplinary Team rounds Reason for Visit : Follow Up Intervention/Comment/Summary Points : Jose is 48-year-old patient who is seen active during IDT rounds. ANIKA MANRIQUEZ Chaplain-Non Cert - 05/06/2019 11:44 EST documented in this encounter Plan of Treatment Not on file documented as of this encounter Visit Diagnoses Not on filedocumented in this encounter
--- OUTSIDE RECORDS SUMMARY | 2025-01-08 15:12 | XMS_ITS | Encounter Summary ---
Author Organization [employer] ([place], [place], [place], [place], [place]) Address [address] [place] [address] Care Team Providers Care Guest Service Supervisor Name Role Phone Unavailable Primary Care Provider Unavailabl e Encounter Details Date Type Department Care Team (Late st Contact Info) Description 05/07/2019 Transcribed Document [facility] [place] [facility] [place] [address] ProviderMg [place] [address] Social History Tobacco Use Types Packs/Day Years Used Date Smoking Tobacco: Never Assessed Sex and Gender Information Value Date Recorded Sex Assigned at Not on file Legal Sex Male 1:09 PM CDT Gender Identity Not on file Sexual Orientation Not on file documented as of this encounter Miscellaneous Notes * Cerner Conversion Note - Mg ProviderMD - 05/07/2019 2:55 PM WATCH DIAL PRINTER On Going Discharge Planning Entered On: 05/07/2019 15:01 EST Performed On: 05/07/2019 14:55 EST by Alyse Townsend Social Worker-Regional Business Development Manager Care Management Progress Note Discharge Arrangements : Patient Post-Acute Information Patient Name: JOSE PEARSON Gender: Male : [birth year] Age: 48 Years No Post-Acute Placement(s) Listed No Post-Acute Service(s) Listed No [place] Referral(s) Listed Alyse Townsend Social Worker-Regional Business Development Manager - 05/07/2019 14:55 EST Narrative Progress Note Narrative Progress Note : 05/06 Received order to make referral to [facility] outpatient cardiac [facility] program. Contacted [facility] appointment telephone number [phone]. They report the person who typically takes the referrals is unavailable and they will have her contact CM back. CM contact information was provided. They report the referral/disaster recovery coordinator is Kailey PH: [phone]. Historical Progress Note : Per RN in Multidisciplinary rounds patient is NPO for scheduled Cardiomems today. Having some nausea after Fe Infusions requested the infusion be held until after procedure so he can eat. CM will follow. TANVIR THAYER Rn-Air Brake Operator - 05/06/19 11:03:45 Alyse Townsend, Gaming Cashier-Regional Business Development Manager - 05/07/2019 14:55 EST documented in this encounter Plan of Treatment Not on file documented as of this encounter Visit Diagnoses Not on filedocumented in this encounter
--- OUTSIDE RECORDS SUMMARY | 2025-01-08 15:12 | XMS_ITS | Encounter Summary ---
Author Organization [employer] ([place], [place], [place], [place], [place]) Address [address] [place] [address] Care Team Providers Care Hvac Controls Technician Name Role Phone Unavailable Primary Care Provider Unavailabl e Encounter Details Date Type Department Care Team (Late st Contact Info) Description 05/06/2019 Transcribed Document [facility] [place] Family Medicine [facility] [place] [address] ProviderMg MD [facility] [place] [address] Social History Tobacco Use Types Packs/Day Years Used Date Smoking Tobacco: Never Assessed Sex and Gender Information Value Date Recorded Sex Assigned at Not on file Legal Sex Male 1:09 PM CDT Gender Identity Not on file Sexual Orientation Not on file documented as of this encounter Miscellaneous Notes * Cerner Conversion Note - Historical ProviderMD - 05/06/2019 5:00 AM CALL CENTER ASSOCIATE Height and Weight, Routine Entered On: 05/07/2019 7:31 EST Performed On: 05/06/2019 5:00 EST by Bessie Lugo [facility] Height and Weight, Routine Routine Weight Source : Bed scale Routine Weight Entry Format : [place] Routine Weight, Pounds : 233 lb Routine Weight, Ounces : 1 oz Routine Weight Calculation : 105.94 kg Height Source : Stated Height Entry Format : [place] Height, Feet : 6 ft Height, Inches : 0 Inch Clinical Height : 182.88 cm Body Surface Area (BSA), Routine : 2.28 m2 Body Mass Index (BMI), Routine : 31.68 kg/m2 Bessie Lugo [facility] - 05/07/2019 7:30 EST documented in this encounter Plan of Treatment Not on file documented as of this encounter Visit Diagnoses Not on filedocumented in this encounter
--- OUTSIDE RECORDS SUMMARY | 2025-01-08 15:12 | XMS_ITS | Encounter Summary ---
Author Organization [employer] ([place], [place], [place], [place], [place]) Address [address] [place] [address] Care Team Providers Care Lead Level Designer Name Role Phone Unavailable Primary Care Provider Unavailabl e Encounter Details Date Type Department Care Team (Late st Contact Info) Description 05/06/2019 Transcribed Document [facility] [place] [facility] [place] [address] ProviderMg MD [facility] [place] [address] Social History Tobacco Use Types Packs/Day Years Used Date Smoking Tobacco: Never Assessed Sex and Gender Information Value Date Recorded Sex Assigned at Not on file Legal Sex Male 1:09 PM CDT Gender Identity Not on file Sexual Orientation Not on file documented as of this encounter Miscellaneous Notes * Cerner Conversion Note - Mg ProviderMD - 05/06/2019 10:56 AM BOAT CLEANING SUPERVISOR On Going Discharge Planning Entered On: 05/06/2019 11:03 EST Performed On: 05/06/2019 10:56 EST by TANVIR THAYER Rn-Fabrication Machine OperatorStore Detective Progress Note Discharge Arrangements : Patient Post-Acute Information Patient Name: JOSE PEARSON Gender: Male : [birth year] Age: 48 Years No Post-Acute Placement(s) Listed No Post-Acute Service(s) Listed No Curaspan Referral(s) Listed Is the Patient Meeting Medical Necessity : Yes Did you Attend Multidisciplinary Rounds? : Yes TANVIR THAYER Rn-Fabrication Machine Operator - 05/06/2019 10:56 EST Narrative Progress Note Narrative Progress Note : Per RN in Multidisciplinary rounds patient is NPO for scheduled Cardiomems today. Having some nausea after Fe Infusions requested the infusion be held until after procedure so he can eat. CM will follow. TANVIR THAYER Rn-Fabrication Machine Operator - 05/06/2019 10:56 EST documented in this encounter Plan of Treatment Not on file documented as of this encounter Visit Diagnoses Not on filedocumented in this encounter
--- OUTSIDE RECORDS SUMMARY | 2025-01-08 15:12 | XMS_ITS | Clinical Summary ---
Author Organization [facility] Address [address] [place] [id number] Care Team Providers Care Applications Engineering Manager Name Role Phone Herberth Perez MD Primary Care Provider [phone] Allergies Active Allergy Reactions Criticality Noted Date Comments Albuterol Anxiety Low 08/10/2020 Verify details 10/04/2023, gave patient anxiety but not shortness of breath or chest tightness. Appropriate to use at infrequent dosing. Chlorhexidine Other (See Comments) Medium 06/09/2023 Osorio, rash, hives Dapagliflozin Other (See Comments) Low 07/05/2022 Farxiga Nausea 3 days after starting, resolved with stopping Medications furosemide (LASIX) 40 MG tablet Take 1 tablet by mouth Daily. Active nitroglycerin (NITROSTAT) 0.[address] 1 tablet under the tongue Every 5 (Five) Minutes As Needed for Chest Pain. Take no more than 3 doses in 15 minutes. Active spironolactone (ALDACTONE) 25 MG tablet Take 1 tablet by mouth Daily. Active magnesium, as, gluconate (MAGONATE) 500 (27 Mg) MG tablet Take 27 mg by mouth 2 (Two) Times a Day. Mag oxide now Active omeprazole (priLOSEC) 40 MG capsule Take 1 capsule by mouth Daily. Active baclofen (LIORESAL) 10 MG tablet Take 1 tablet by mouth 3 (Three) Times a Day. Active warfarin (COUMADIN) 1 MG tablet Take 3 tablets by mouth Daily. Active lisinopril (PRINIVIL,ZESTRIL) 5 MG tablet Take 2 tablets by mouth Daily. Active Multiple Vitamins-Minerals (multivitamin with minerals) tablet tablet Take 1 tablet by mouth Daily. Active diphenhydrAMINE (BENADRYL) 25 mg capsule Take 1 capsule by mouth Every 6 (Six) Hours As Needed for Itching. Active ipratropium (ATROVENT) 0.06 % nasal spray Administer 2 sprays into the nostril(s) as directed by provider 4 (Four) Times a Day. Active cephalexin (KEFLEX) 500 MG capsule TAKE 2 CAPSULES BY MOUTH 2 TIMES A DAY. 2 Active Mucus Relief 600 MG 12 hr tablet TAKE 2 TABLETS (1,200 MG TOTAL) BY MOUTH 2 (TWO) TIMES A DAY. DO NOT CRUSH, CHEW, OR SPLIT. 2 Active carvedilol (COREG) 25 MG tablet Take 1 tablet by mouth 2 (Two) Times a Day With Meals. Active sotalol (BETAPACE) 80 MG tablet Take 1.5 tablets by mouth 2 (Two) Times a Day. Active mometasone (Nasonex) 50 MCG/ACT nasal spray 2 sprays into the nostril(s) as directed by provider Daily. 17 g 3 4 Active FLUoxetine (PROzac) 40 MG capsuleIndications :Anxiety and depression Take 1 capsule by mouth Daily. 90 capsule 4 Active rosuvastatin (CRESTOR) 40 MG tabletIndications: Mixed hyperlipidemia TAKE 1 TABLET BY MOUTH DAILY (REPLACES PRAVASTATIN) 90 tablet 5 Active buPROPion XL (Wellbutrin XL) 300 MG 24 hr tabletIndications: Anxiety and depression Take 1 tablet by mouth Daily. 90 tablet 1 5 Active montelukast (SINGULAIR) 10 MG tablet TAKE 1 TABLET BY MOUTH DAILY 90 tablet 1 5 Active amoxicillin-clavul anate (AUGMENTIN) 875-125 MG per tabletIndications: Community acquired pneumonia of right lung, unspecified part of lung Take 1 tablet by mouth 2 (Two) Times a Day. 14 tablet 5 Active doxycycline (VIBRAMYCIN) 100 MG capsuleIndications :Community acquired pneumonia of right lung, unspecified part of lung Take 1 capsule by mouth 2 (Two) Times a Day. 20 capsule 5 Active albuterol sulfate HFA 108 (90 Base) MCG/ACT inhalerIndications :Mild intermittent asthma with exacerbation Inhale 1 puff Every 4 (Four) Hours As Needed for Shortness of Air or Wheezing. 18 g 2 Active Active Problems Problem Noted Date Diagnosed Date Community acquired pneumonia of right lung 08/02 Assessment & Plan (11/10/2024 4:57 PM EDT): Patient treated for [place] acquired pneumonia of the right lung approximately 3 months ago. This diagnosis after 4 to 5 days of right sided chest discomfort with breathing, a bit of heaviness sensation and increasing cough. Patient came to be evaluated by his regular PCP, Dr. Herberth Perez despite being urged to seek ER evaluation. His hardware manager obtained x-ray imaging which showed right lung findings most suspicious for pneumonia. He was treated during that time with Augmentin for 10 days, doxycycline for 10 days. He was also noted to have secondary asthmatic component prompting addition of prednisone. Patient presenting very similarly today. Subsequently will proceed with repeat treatment of pneumonia, awaiting chest x- ray results that were ordered by cardiology earlier today. Patient again advised if symptoms fail to improve will need to seek further evaluation emergency department. Prescriptions sent to [facility] here in [place] -Augmentin 875 mg / 125 mg twice daily x 10 days, doxycycline 100 mg twice daily x 10 days and prednisone 40 mg once daily for 7 days. Patient already has albuterol inhaler on hand but refill sent to the pharmacy Assessment & Plan (08/02/2024 9:03 AM EDT): Clinical progression for 4 to 5 days of right sided chest discomfort with breathing, a bit of a heaviness sensation, and increasing cough which triggers in spurts. He did not want to go to [facility] ER, such as hardware manager to obtain x-ray imaging through [facility] on 07/31/2024 which showed right lung findings most suspicious for pneumonia over asymmetric edema, and on exam does have slight diminished airflow diffusely in the right lung but no specific crackles appreciated but a few scattered wheezes on the right greater than left side. For pneumonia last night initiated on Augmentin 875/125 twice daily x 10 days, doxycycline 100 mg twice daily x 10 days. There appears to be some modest secondary asthmatic component which we will in the lung but not specifically crackles appreciated, and I have added prednisone 10 mg tablet at 4 tablets daily x 5 days. Ultimately I discussed with him and his significant risk factors, similar to his hardware manager I would strongly recommend [facility] ER evaluation where he potentially and likely would benefit he understands this risk including potential risk progression where he could have significant progression to becoming much sicker and even potentially resulting in , but at this time he does not desire to pursue. I reinforced at length if there is any progression with new fevers, chills, worsening respiratory status I would again reinforced recommendation for ER evaluation. Dysuria 12/16/2023 Assessment & Plan (12/16/2023 5:25 AM EDT): presents today for complaints of difficulty urinating. Patient states that he has been having symptoms for approximately two or three weeks in which he will feel like he has bladder is not completely emptying. Patient denies any urgency or frequency. He has not noted any hematuria. Denies any rectal pressure or pain, no testicular pain. He denies any foul odor to his urine or burning with urination. Patient had PSA checked approximately 3 months ago which was very satisfactory at 0.8. Patient without any past history of urinary retention despite significant residual from CVA. He is accompanied by his today that noted some mild confusion today. There has been no nausea, vomiting, fever or chills. Patient is on chronic daily regimen of cephalexin 1000 mg daily for infection prophylaxis with use of LVAD. Patient is unable to void for specimen in office today, he is being sent home with collection cup with plans for his to return with specimen later today. Will contact patient with results when available and discuss treatment plan. COVID-19 virus infection 10/04/2023 Assessment & Plan (10/04/2023 1:36 PM EDT): COVID-19 positive today with onset of symptoms yesterday after his had positive diagnosis in the last couple days of symptoms onset about 5 to 6 days ago. Some modest asthmatic type symptoms as per that assessment plan. Otherwise he is an appropriate candidate based on his multimedical problems for Paxlovid, he has good kidney function with recent creatinine 09/06/2023 0.77 with GFR 106. As such standard dosing of Paxlovid initiated. Based on drug interactions recommend holding Crestor and Seroquel for the next 7 days while taking the Paxlovid, then those medicines can be resumed. Discussed importance that despite this treatment, if he is having progression of respiratory difficulties, hydration or difficulties, or feeling significant worsening need to be reassessed in ER setting. Mild intermittent asthma with exacerbation 10/03 Assessment & Plan (08/02/2024 9:04 AM EDT): Patient know modest tendency for asthma and while his main issue today is right- sided pneumonia, he does appear to have some modest asthmatic component and to try to maximize his treatment especially in context that he is not willing to be evaluated for an ER I will add prednisone 10 mg tablet 4 tablets daily x 5 days, albuterol inhaler 2 puffs every 4-6 hours asfor the next few days, then as needed. Advised if not improving Assessment & Plan (10/04/2023 1:37 PM EDT): Secondary to COVID-19 diagnosis, modest pattern at this time with only a mild sense of tightness, but in context of multiple medical comorbidities I feel its most prudent to treat. Initiate prednisone 10 mg tablet 3 tablets daily x 5 days. Albuterol inhaler 1 puff every 4-6 hours as needed, with spacer. Chosen a 1 puff as he has some history of not a true allergy but more sense of anxiousness when he took albuterol which can occur. As such use only as needed and benefit, but if there is notable anxiety he may not be able to use. Advised if not improving. Colon cancer screening 09/06/2023 Assessment & Plan (09/06/2023 9:54 AM EDT): Colonoscopy 01/16/[address] Curiel at [facility] with internal hemorrhoids, 5 mm sessile polyp in the rectosigmoid colon, five-year followup recommended. Colonoscopy would be due January 2024, but with ongoing multiple medical problems at that time it may benefit to clarify risk and benefit of pursuing procedure through cardiology. Need for vaccination 09/06/2023 Assessment & Plan (09/06/2023 1:16 PM EDT): Tdap due and administered 09/06/2023. Prediabetes 03/07/2023 Assessment & Plan (09/06/2023 1:17 PM EDT): Hemoglobin A1c just into prediabetic range at 5.7% on 08/17/2022. Repeat hemoglobin A1c improved to 5.6% today on 09/06/2023. No polyuria polydipsia. Continue healthy diet, activity is much as able, monitor every 6 to 12 months. Assessment & Plan (03/07/2023 5:38 PM EST): Hemoglobin A1c just into prediabetic range at 5.7% on 08/17/2022. Not obtained at today's visit but he has actually had modest weight loss, with no polyuria and polydipsia. Plan to recheck with his follow-up visit in 6 months at complete physical. Continue healthy diet, advised concerns. Encounter for general adult medical examination with abnormal findings 08/17/2022 Assessment & Plan (09/06/2023 1:15 PM EDT): Last screening blood work 08/17/2022, negative hepatitis C virus screening 09/18/2021. Blood work completed 09/06/2023 with management per results. Colonoscopy 01/16/[address] Curiel with internal hemorrhoids, 5 mm sessile polyp in the rectosigmoid colon, five-year followup recommended. Colonoscopy would be due January 2024, but with ongoing multiple medical problems will refer to gastroenterology to discuss potential appropriate means to pursue. Pneumococcal 20 valent vaccine given 11/01/2021. TDaP vaccine 09/06/2023. Recommend flu vaccine yearly. Assessment & Plan (08/17/2022 10:53 AM EDT): No recent screening blood work, completed today 08/17/2022. TDaP vaccine given 11/08/2013. Colonoscopy 01/16/[address] Curiel with internal hemorrhoids, 5 mm sessile polyp in the rectosigmoid colon, five-year followup recommended. Colonoscopy would be due January 2024, but with ongoing multiple medical problems at that time it may benefit to clarify risk and benefit of pursuing procedure through cardiology. Pneumococcal 20 valent vaccine given 11/01/2021. TDaP vaccine 11/08/2013. Recommend flu vaccine yearly. Vitamin D deficiency 08/17/2022 Assessment & Plan (09/06/2023 1:18 PM EDT): Vitamin D 25-hydroxy level normal 32.5 08/17/2022. As such normal range currently, no need for vitamin D replacement, although there was caution based on his wheelchair-bound status which limits his sun exposure. Recheck vitamin D 25- hydroxy level 09/06/2023, management per results. Assessment & Plan (03/07/2023 5:45 PM EST): Vitamin D 25-hydroxy level normal 32.5 08/17/2022. As such normal range currently, no need for vitamin D replacement, although there was caution based on his wheelchair-bound status which limits his sun exposure. Assessment & Plan (08/17/2022 10:48 AM EDT): Patient is wheelchair-bound, with decrease in exposure, concern for possible vitamin D deficiency. Check with blood work. 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 Pending investigations further through [facility] to consider appropriateness of potential repair. He has notable reflux and sticking sensation in the throat that could be benefited by repair but he may be complicated by his other medical problems. Keep follow-up with the specialist at [facility]. Overweight (BMI 25.0-29.9) 08/17/2022 Assessment & Plan (09/06/2023 1:12 PM EDT): Modestly overweight with some decrease in weight pattern in part due to limitations of solid food intake with his swallowing difficulties, still weight ranges appropriate but ongoing attempts to pursue swallowing evaluation per his specialist. Continue healthy diet and activity. Assessment & Plan (03/07/2023 5:40 PM EST): Modest weight loss over the last year, in part due to difficulty with swallowing. Continue benefits of healthy diet, activity level. Assessment & Plan (08/17/2022 10:58 AM EDT): Enforce appropriateness of healthy diet, exercise, to maintain a healthy weight pattern. Seasonal allergic rhinitis due to pollen 023 Assessment & Plan (08/02/2024 10:24 AM EDT): Seasonal pattern more spring and fall with benefit previous on Zyrtec Flonase and Singulair. While all of his drainage was not felt to be just allergies, some related to some increased mucosal drainage that is related to his medical problems, we have switched Flonase and Zyrtec to Nasonex and Jailyn without any clear benefit has been back on now the Zyrtec and Flonase. Ultimately additional Benadryl that was to help some the dryness was switched in January 2024 to hydroxyzine and it did help clear, but ultimately too much and he was getting a little bit dry/dehydrated feeling. As such at this time we have agreed to find a balance that he can still use the Benadryl most days but if there is a need to dry things out a bit he could transitionally use the hydroxyzine but not both the Benadryl and hydroxyzine together. Additional benefit of saline spray, nasal flushing. As a visit 08/02/2024, while allergy is not the main culprit I reinforced importance of maintaining his regimen consistently with current pneumonia pattern to minimize any additional drainage. Assessment & Plan (04/03/2024 1:59 PM EST): Seasonal pattern more spring and fall with benefit previous on Zyrtec Flonase and Singulair. While all of his drainage was not felt to be just allergies, some related to some increased mucosal drainage that is related to his medical problems, we have switched Flonase and Zyrtec to Nasonex and Jailyn without any clear benefit has been back on now the Zyrtec and Flonase. Ultimately additional Benadryl that was to help some the dryness was switched in January 2024 to hydroxyzine and it did help clear, but ultimately too much and he was getting a little bit dry/dehydrated feeling. As such at this time we have agreed to find a balance that he can still use the Benadryl most days but if there is a need to dry things out a bit he could transitionally use the hydroxyzine but not both the Benadryl and hydroxyzine together. Additional benefit of saline spray, nasal flushing. Advise concerns. Assessment & Plan (09/06/2023 1:18 PM EDT): Seasonal pattern more spring and fall with benefit previous on Zyrtec Flonase and Singulair. While all of his drainage was not felt to be just allergies, some related to some increased mucosal drainage that is related to his medical problems, I would like to make adjustments and switch the Flonase and Zyrtec to Nasonex and Jailyn respectively to see if he may get further benefit. Continue seasonal use. Additional benefit of saline spray, nasal flushing. Advise concerns. Assessment & Plan (03/07/2023 5:45 PM EST): Seasonal pattern more spring and fall with good response to antihistamine, Flonase and Singulair. Continue seasonal use. Additional benefit of saline spray, nasal flushing has concerns. Assessment & Plan (08/17/2022 10:55 AM EDT): Seasonal pattern more spring and fall, good response to addition of Flonase on 06/22/2022 in addition to antihistamine and montelukast. Additional benefit of saline spray, nasal flushing. Advise concerns. Assessment & Plan (06/22/2022 12:42 PM EDT): Modest breakthrough symptoms, refills provided medicine to use for the next few weeks, then as necessary. Additional benefit of saline spray, nasal flushing. Advise concerns. Driving safety issue 06/22/2022 Assessment & Plan (05/24/2023 2:13 PM EDT): Patient additionally assessed again today 05/24/2023, desiring me to complete a medical review examination in regards to his pursuit of obtaining his driving license, similar to last year on 06/22/2022. This is relevant in context of his previous cerebrovascular accident with left-sided effects. Form completed and its entirety, with my main concerns would be the patient's residual left upper extremity and left lower extremity weakness that requires motorized wheelchair. He does not have any residual mental deficits would be of a concern, and has had recent ophthalmology evaluation through Dr. Camarillo at in May 2023 which showed no visual concerns although he does need to wear his glasses. Additionally he does have an LVAD device for his congestive heart failure he clinically is stable in that regard and has close follow-up with cardiology and I do not feel that would be a limiting factor. I have completed the documentation as appropriate and faxed to the appropriate location. In essence I would recommend him having further evaluation by the [place] road test, additional certified driving specialist evaluation and he would need adaptive equipment. Assessment & Plan (06/22/2022 12:40 PM EDT): Patient additionally comes in today desiring me to complete a medical review examination in regards to his pursuit of obtaining his driving license. This is relevant in context of his previous cerebrovascular accident with left-sided effects. I have reviewed in great detail, and completed as appropriate. In essence, my main concerns would be the patient's residual left upper extremity and left lower extremity weakness that requires motorized wheelchair. He does not have any residual mental deficits would be of a concern. Additionally he does have an LVAD device for his congestive heart failure he clinically is stable in that regard and has close follow-up with cardiology and I do not feel that would be a limiting factor. I have completed the documentation as appropriate and faxed to the appropriate location. CAD (coronary artery disease) 11/01/2021 Overview (11/01/2021): with myocardial infarction January 2007, with nonischemic dilated cardiomyopathy/congestive heart failure, diagnosis per hardware manager, Dr. Leydi Hobbs. Assessment & Plan (09/06/2023 1:09 PM EDT): Details as per assessment plan for congestive heart failure. Assessment & Plan (03/07/2023 5:39 PM EST): Details as per assessment plan for congestive heart failure. Assessment & Plan (08/17/2022 10:49 AM EDT): Details as per assessment plan for congestive heart failure. Assessment & Plan (06/22/2022 12:40 PM EDT): Details as per assessment plan for congestive heart failure. Notably this is stable and would not be a limiting factor for driving. Assessment & Plan (11/01/2021 2:03 PM EDT): Details as per congestive heart failure discussion. 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 Previous question of associated seizures on oxcarbazepine 300 mg twice daily, all to be discontinued and not felt to be seizure activity. Anticoagulation includes Coumadin and baby aspirin. Status post physical therapy and occupational therapy with benefit. Full deficiency of left-sided function in the arms and legs other than slight flexion of the left leg. Right upper extremity with normal strength, right lower extremity is weak, some strength against resistance but not enough to stand upright. Significant difficulties moving between lying, sitting and standing in the home, which limits her ability to function with ADLs and perform physical therapy. Assess for potential driving appropriateness as of 05/24/2023 visit. Regimen of the methocarbamol 500 mg at one to 3 tablets when necessary muscle spasms, with additional Botox injections per neurology repeated with equivocal benefit. Ongoing followup with neurology. Ongoing home health with therapy. Advise concerns. Of note his wheelchair-bound status and limitations of mobility does put him at notably high risk of infection, which he has current right sided pneumonia on 08/02/2024. This contributes to his risk and the fact that he is much high risk and would benefit from ER evaluation at where he has all his specialist, but patient declines understanding of central risk of worsening infectious status, and even potentially leading to risk of . Assessment & Plan (09/06/2023 1:10 PM EDT): Acute process was felt to be ischemic on 06/08/2019. Previous question of associated seizures on oxcarbazepine 300 mg twice daily, all to be discontinued and not felt to be seizure activity. Anticoagulation includes Coumadin and baby aspirin. Status post physical therapy and occupational therapy with benefit. Full deficiency of left- sided function in the arms and legs other than slight flexion of the left leg. Right upper extremity with normal strength, right lower extremity is weak, some strength against resistance but not enough to stand upright. Significant difficulties moving between lying, sitting and standing in the home, which limits her ability to function with ADLs and perform physical therapy. Assess for potential driving appropriateness as of 05/24/2023 visit. Regimen of the methocarbamol 500 mg at one to 3 tablets when necessary muscle spasms, with additional Botox injections per neurology repeated with equivocal benefit. Ongoing followup with [facility]y. Ongoing home health with therapy with benefit, form completion. Advise concerns. Assessment & Plan (05/24/2023 2:11 PM EDT): Acute process felt ischemic 06/08/2019. Previous question of associated seizures on oxcarbazepine 300 mg twice daily, all to be discontinued and not felt to be seizure activity. Anticoagulation includes Coumadin and baby aspirin. Status post physical therapy and occupational therapy with benefit. Left-sided function is gone in the arms and legs other than slight flexion of the left leg. Right upper extremity with normal strength, right lower extremity is weak, some strength against resistance but not enough to stand upright. Significant difficulties moving between lying, sitting and standing in the home, which limits her ability to function with ADLs and perform physical therapy. Assess for potential driving with likely further assessment is pending as of June 2022 discussion. Regimen of the methocarbamol 500 mg at one to 3 tablets when necessary muscle spasms, with additional Botox injections per neurology repeated with equivocal benefit. Ongoing followup with [facility]y. Ongoing home health with therapy with benefit, form completion. With modest benefit. Assessment & Plan (03/07/2023 5:40 PM EST): Acute process felt ischemic 06/08/2019. Previous question of associated seizures on oxcarbazepine 300 mg twice daily, all to be discontinued and not felt to be seizure activity. Anticoagulation includes Coumadin and baby aspirin. Status post physical therapy and occupational therapy with benefit. Left-sided function is gone in the arms and legs other than slight flexion of the left leg. Right upper extremity with normal strength, right lower extremity is weak, some strength against resistance but not enough to stand upright. Significant difficulties moving between lying, sitting and standing in the home, which limits her ability to function with ADLs and perform physical therapy. Assess for potential driving with likely further assessment is pending as of June 2022 discussion. Regimen of the methocarbamol 500 mg at one to 3 tablets when necessary muscle spasms, with additional Botox injections per neurology repeated with equivocal benefit. Ongoing followup with [facility]. Ongoing home health with therapy with benefit, form completion. With modest benefit. Assessment & Plan (08/17/2022 10:50 AM EDT): Acute process felt ischemic 06/08/2019. Previous question of associated seizures on oxcarbazepine 300 mg twice daily, all to be discontinued and not felt to be seizure activity. Anticoagulation includes Coumadin and baby aspirin. Status post physical therapy and occupational therapy with benefit. Left-sided function is gone in the arms and legs other than slight flexion of the left leg. Right upper extremity with normal strength, right lower extremity is weak, some strength against resistance but not enough to stand upright. Significant difficulties moving between lying, sitting and standing in the home, which limits her ability to function with ADLs and perform physical therapy. Assess for potential driving with likely further assessment is pending as of June 2022 discussion. Regimen of the methocarbamol 500 mg at one to 3 tablets when necessary muscle spasms, with additional Botox injections per neurology repeated with equivocal benefit. Keep followup with [facility]. Ongoing home health with therapy with benefit, form completion. Assessment & Plan (06/22/2022 12:50 PM EDT): Acute process felt ischemic 06/08/2019. Previous question of associated seizures on oxcarbazepine 300 mg twice daily, all to be discontinued and not felt to be seizure activity. Anticoagulation includes Coumadin and baby aspirin. Status post physical therapy and occupational therapy with benefit. Left-sided function is gone in the arms and legs other than slight flexion of the left leg. Right upper extremity with normal strength, right lower extremity is weak, some strength against resistance but not enough to stand upright. Significant difficulties moving between lying, sitting and standing in the home, which limits her ability to function with ADLs and perform physical therapy. This is a potential limiting factor on his ability to drive and would require me to have a further assessment for appropriateness in that regard. He may need adaptive equipment. Regimen of the methocarbamol 500 mg at one to 3 tablets when necessary muscle spasms, with additional Botox injections per neurology repeated with equivocal benefit. Keep followup with [facility]. Ongoing home health with therapy with benefit, form completion. Assessment & Plan (11/01/2021 2:06 PM EDT): Acute process felt ischemic 06/08/2019, for which he had questioning associated secondary seizures. With persistence he is continued on oxcarbazepine 300 mg twice daily,, although ultimately discontinued. Anticoagulation as noted above including Coumadin and baby aspirin. Status post physical therapy and occupational therapy with benefit. Left-sided function is gone in the arms and legs other than slight flexion of the left leg. Right upper extremity with normal strength, right lower extremity is weak, some strength against resistance but not enough to stand upright. Significant difficulties moving between lying, sitting and standing in the home, which limits her ability to function with ADLs and perform physical therapy. Regimen of the methocarbamol 500 mg at one to 3 tablets when necessary muscle spasms, with additional Botox injections per neurology repeated with equivocal benefit. Keep followup with [facility]. Ongoing home health with therapy with benefit, form completion. Anxiety and depression 11/01/2021 Assessment & Plan (04/03/2024 1:57 PM EST): Stressors in large part related to multiple medical problems that are ongoing and chronic, including being wheelchair-bound status post CVA. No SI/HI. Previous stability fluoxetine 40 mg daily, with additional Seroquel for nighttime which is historically help sleep and anxiety. nonetheless with sedation concerns, as of 03/07/2023 Seroquel 75 mg was decreased down to 50 mg dosing, and again to 25 mg dosing on 05/24/2023 with continued benefit, and as of approximately January 2024 with concern of multiple medicines having potential effect on QT prolongation was discontinued. He does not feel that he is had any effects on his sleep with discontinuation, although he still having some mood difficulties that could have related more to the discontinuation. As such I do not feel there is any specific need for medicine at this time for sleep, although we could reconsider in the future. Additional use of CBD Gummies which has helped his swallowing difficulty, as well as stressors continue that unchanged. Ultimately on current regimen of fluoxetine 40 mg daily, Wellbutrin XL 150 mg daily which is added after the appointment on 09/05/2024. He does feel that it was beneficial, with some breakthrough anxiety/depressive symptoms we will increase Wellbutrin XL to 300 mg dosing today on 04/03/2024 which should hopefully help his stressors, but ultimately if we had further breakthrough symptoms in the future we could consider adding buspirone or switching fluoxetine to a different medication. Advise if not improving. Assessment & Plan (09/06/2023 1:09 PM EDT): Stressors in large part related to multiple medical problems that are ongoing and chronic, including being wheelchair-bound status post CVA. No SI/HI. Previous stability fluoxetine 40 mg daily, with additional Seroquel for nighttime which is historically help sleep and anxiety. nonetheless with sedation concerns, as of 03/07/2023 Seroquel 75 mg was decreased down to 50 mg dosing, and again to 25 mg dosing on 05/24/2023 with continued benefit. Additional use of CBD Gummies which has helped his swallowing difficulty, as well as stressors continue that unchanged. He has had breakthrough anxiety and depressive symptoms as of 09/06/2023 related to ongoing swallowing difficulties, have recommended potential benefit of adding Wellbutrin XL 150 mg daily, but he does not want to take any more medicine declines. If he changes mind call back and we can initiate. Otherwise continue lifestyle modifications to benefit mood. Advise any worsening. Assessment & Plan (05/24/2023 2:10 PM EDT): Stressors in large part related to multiple medical problems that are ongoing and chronic, including being wheelchair-bound status post CVA, etc. No SI/HI. Overall stability on fluoxetine 40 mg daily, with additional Seroquel for nighttime which is historically help sleep and anxiety. Nonetheless with sedation concerns, as of 03/07/2023 Seroquel 75 mg was decreased down to 50 mg dosing with no breakthrough sleep difficulty or anxiety breakthrough, again we will decrease down today on three 22,024 to 25 mg dosing. As he has had benefit on CBD Gummies which has helped his swallowing difficulty, as well as stressors continue that unchanged. Continue lifestyle modifications to benefit mood. Advise concerns. Assessment & Plan (03/07/2023 5:39 PM EST): Stressors in large part related to multiple medical problems that are ongoing and chronic, including being wheelchair-bound status post CVA, etc. No SI/HI. Advise concerns. Overall stability on fluoxetine 40 mg daily, with additional Seroquel for nighttime sleep benefit. With some sedation with addition of CBD Gummies which has helped his swallowing difficulty, we will wean the Seroquel from 25 mg 3 tablets at nighttime down to 2 tablets at night but we could decrease further as per his response. Continue lifestyle modifications to benefit mood. Assessment & Plan (08/17/2022 10:49 AM EDT): Stressors in large part related to multiple medical problems that are ongoing and chronic, including being wheelchair-bound status post CVA, etc. No SI/HI. Advise concerns. Overall stability on fluoxetine 40 mg daily, with additional Seroquel for nighttime sleep benefit. Continue lifestyle modifications to benefit mood. Assessment & Plan (06/22/2022 12:42 PM EDT): Currently stable on fluoxetine 40 mg dosing. Continue lifestyle modifications to benefit mood is much as able, with ongoing stressors related to limited mobility in a wheelchair. Assessment & Plan (11/01/2021 2:04 PM EDT): Comorbid with anxiety, currently stable on fluoxetine 40 mg dosing. Continue lifestyle modifications to benefit mood is much as able, with ongoing stressors related to limited mobility in a wheelchair. Epilepsy 11/01/2021 Assessment & Plan (06/22/2022 12:41 PM EDT): Question of previous seizure but ultimately felt not to be the case and was weaned off medication with no residual deficit. Assessment & Plan (11/01/2021 2:07 PM EDT): Initially felt to be secondary to MCA stroke with but persistence, unclear persisting etiology. He had done well on oxcarbazepine 300 mg twice daily, but due to question of whether or not he ever had true seizures, he was weaned off oxcarbazepine as of February 2021 and has had no breakthrough seizures. Keep followup [facility]. Mixed hyperlipidemia 11/01/2021 Assessment & Plan (09/06/2023 1:16 PM EDT): 08/17/2022 total cholesterol 145, triglycerides 132, HDL 35, LDL 86. Comparison in 2021 with total cholesterol 138, triglycerides 131, HDL 35, LDL 77, 11/11/2020, total cholesterol 156, triglycerides 154, HDL 37, LDL 88. Comparison 10/03/2019 total cholesterol 143, triglycerides 55, HDL 38, LDL 74, 04/12/2018 with total cholesterol 119, triglycerides 114, HDL 30, LDL 66. Continue pravastatin 40 mg daily. Monitor with work 09/06/2023. Assessment & Plan (03/07/2023 5:44 PM EST): 08/17/2022 total cholesterol 145, triglycerides 132, HDL 35, LDL 86. Comparison in 2021 with total cholesterol 138, triglycerides 131, HDL 35, LDL 77, 11/11/2020, total cholesterol 156, triglycerides 154, HDL 37, LDL 88. Comparison 10/03/2019 total cholesterol 143, triglycerides 55, HDL 38, LDL 74, 04/12/2018 with total cholesterol 119, triglycerides 114, HDL 30, LDL 66. Continue pravastatin 40 mg daily, monitor yearly. Assessment & Plan (08/17/2022 10:54 AM EDT): 11/11/2020, total cholesterol 156, triglycerides 154, HDL 37, LDL 88. Comparison 10/03/2019 total cholesterol 143, triglycerides 55, HDL 38, LDL 74, 04/12/2018 with total cholesterol 119, triglycerides 114, HDL 30, LDL 66. Continue pravastatin 40 mg daily, monitor yearly. Repeat pending. Assessment & Plan (11/01/2021 2:08 PM EDT): 11/11/2020, total cholesterol 156, triglycerides 154, HDL 37, LDL 88. Comparison 10/03/2019 total cholesterol 143, triglycerides 55, HDL 38, LDL 74, 04/12/2018 with total cholesterol 119, triglycerides 114, HDL 30, LDL 66. Continue pravastatin 40 mg daily, monitor yearly Essential hypertension 11/01/2021 Assessment & Plan (09/06/2023 1:15 PM EDT): Overall stability on current regimen of medication, although he does not have a blood pressure with the LVAD, but his mean pressures are stable. Assessment & Plan (03/07/2023 5:40 PM EST): Overall stability on current regimen of medication, although he does not have a blood pressure with the LVAD, but his mean pressures are stable. Assessment & Plan (08/17/2022 10:53 AM EDT): Overall stability on current regimen of medication, although he does not have a blood pressure with the LVAD, but his mean pressures are stable. Assessment & Plan (11/01/2021 2:09 PM EDT): Overall stability on current regimen of medication, although he does not have a blood pressure with the LVAD, but his mean pressures are stable. Other insomnia 11/01/2021 Assessment & Plan (04/03/2024 1:58 PM EST): Longstanding difficulty sleep, on multiple medicines including melatonin 10 mg at night, Benadryl, Seroquel 25 mg previously 75 mg total dosing but being weaned. With addition of CBD gummy as of fall 2022 this significant help sleep but there was some sedation concern. Nonetheless he would like to continue the CBD gummy as it definitely helps his dysphagia sensation which has been longstanding and bothersome, on 03/07/2023 we weaned Seroquel 25 mg from 3 tablets down to 2 tablets, and again down to a single 25 mg tablet on 05/24/2023. Through his specialist with the concern of multiple medicines that could have some QT prolongation, Seroquel was stopped in January 2020 for lower when adding hydroxyzine, and he never sought any negative effect on sleep. As such we can hold off on the Seroquel at this time. Continue to good stability sleep pattern. We could also consider weaning melatonin in future. Advise concerns Assessment & Plan (09/06/2023 1:16 PM EDT): Longstanding difficulty sleep, on multiple medicines including melatonin 10 mg at night, Benadryl, Seroquel 25 mg previously 75 mg total dosing but being weaned. With addition of CBD gummy as of fall 2022 this significant help sleep but there was some sedation concern. Nonetheless he would like to continue the CBD gummy as it definitely helps his dysphagia sensation which has been longstanding and bothersome, on 03/07/2023 we weaned Seroquel 25 mg from 3 tablets down to 2 tablets, and again down to 125 mg tablet on 05/24/2023. Continue to good stability sleep pattern. We could also consider weaning melatonin in future. Advise concerns Assessment & Plan (05/24/2023 2:09 PM EDT): Longstanding difficulty sleep, on multiple medicines including melatonin 10 mg at night, Benadryl, Seroquel 25 mg previously 75 mg total dosing but being weaned. With addition of CBD gummy as of fall 2022 this significant help sleep but there was some sedation concern. Nonetheless he would like to continue the CBD gummy as it definitely helps his dysphagia sensation which has been longstanding and bothersome, on 03/07/2023 we weaned Seroquel 25 mg from 3 tablets down to 2 tablets at nighttime with benefit of sedation and no breakthrough of sleep difficulty or anxiety. As such we will decrease again Seroquel 25 mg down to a single tablet totaling 25 mg dose as of 05/24/2023. Caution potential exacerbation of sleep difficulty and/or stress. We could also consider weaning melatonin in future. Advise concerns Assessment & Plan (03/07/2023 5:45 PM EST): Ongoing difficulties previously for which she had been on multiple medicines including melatonin 10 mg at night, Benadryl, Seroquel 25 mg 3 tablets daily at nighttime. With addition of CBD gummy as of fall 2022 this is significantly helped his swallowing and as she has helped him sleep but he feels a bit more sedated. Nonetheless he would like to continue the CBD gummy as it definitely helps his dysphagia sensation which has been longstanding and bothersome, as such we will wean the Seroquel 25 mg from 3 tablets down to 2 tablets at nighttime and as a call in a month to reassess, titrate further down if he still doing well. Caution potential exacerbation of sleep difficulty and/or stress. We could also consider weaning melatonin in future. Advise concerns. Assessment & Plan (08/17/2022 10:54 AM EDT): Ongoing periodic difficulties, he does better when he is having active days. Partially felt to be stress related. Treatment for anxiety and depression, with additional consideration of melatonin. He also uses Seroquel 25 mg 3 tablets at nighttime for sleep with benefit. Assessment & Plan (11/01/2021 2:08 PM EDT): Ongoing periodic difficulties, he does better when he is having active days. Partially felt to be stress related. Treatment for anxiety and depression, with additional consideration of melatonin. He also uses Seroquel 25 mg 3 tablets at nighttime for sleep with benefit. Left ventricular enlargement 11/01/2021 Overview (11/01/2021): echocardiogram 09/02/2011 with moderate to severe left ventricular enlargement, normal right ventricular and atria size, normal left atrial size. Normal left ventricular wall thickness. Moderate global hypokinesis, overall left ventricular systolic function mildly depressed with EF 35-40%. Normal right ventricular function. Otherwise normal echocardiogram. LVAD (left ventricular assist device) present Assessment & Plan (11/01/2021 2:04 PM EDT): Details as per congestive heart failure discussion. Chronic systolic (congestive) heart failure 10/05 Assessment & Plan (08/02/2024 9:01 AM EDT): LVAD placed 06/06/[address] Garcia, with associated hospital complications including right MCA stroke, multiple pneumonias, seizure activity, et cetera. From a cardiac perspective, ongoing monitoring, with summer 2021 increase of carvedilol to 25 mg twice daily, otherwise medications unchanged. Continuing spironolactone 25 mg daily, omeprazole 40 mg daily and continuing as managed through cardiology with target INR of 2-3. Additionally taking baby aspirin. This is in the patient with notable history of class for stage D heart failure, status post V. tach with ICD placement in the past, who proceeded with LVAD placement for these reasons. Multiple cardiac problems historically. History of coronary artery disease with history of myocardial infarction, as well as describing nonischemic dilated cardiomyopathy. Current regimen of sotalol, aspirin, carvedilol, magnesium, pravastatin, warfarin as managed by cardiology clinic at . Lasix 40 mg daily only as needed as of early 2020. Continue follow up at cardiology clinic. He has had dehydrational concerns as of 2024 and they have actually added weekly IV infusions at home to try to help balance his fluid status which has been beneficial as of 08/02/2024 visit. His cardiac status including LVAD device placement, with no stated cardiovascular disease does increase his risk for infection. He is much high risk and would benefit from ER evaluation at where he has all his specialist, but patient declines understanding of central risk of worsening infectious status, and even potentially leading to risk of . Assessment & Plan (09/06/2023 1:11 PM EDT): LVAD placed 06/06/[address] Garcia, with associated hospital complications including right MCA stroke, multiple pneumonias, seizure activity, et cetera. From a cardiac perspective, ongoing monitoring, with summer 2021 increase of carvedilol to 25 mg twice daily, otherwise medications unchanged. Continuing spironolactone 25 mg daily, omeprazole 40 mg daily and continuing as managed through cardiology with target INR of 2-3. Additionally taking baby aspirin. This is in the patient with notable history of class for stage D heart failure, status post V. tach with ICD placement in the past, who proceeded with LVAD placement for these reasons. Multiple cardiac problems historically. History of coronary artery disease with history of myocardial infarction, as well as describing nonischemic dilated cardiomyopathy. Current regimen of sotalol, aspirin, carvedilol, magnesium, pravastatin, warfarin as managed by cardiology clinic at . Lasix 40 mg daily only as needed as of early 2020. Continue follow up at cardiology clinic, with regular follow-up. Assessment & Plan (05/24/2023 2:11 PM EDT): Patient with LVAD device placed 06/06/2019 as detailed previous in great detail with secondary complications of right MCV stroke and residual left-sided deficit as discussed in detail in that regard. Clinically stable on his regimen of medication, regular follow-up with cardiology. I do not feel this would also be a limiting factor in his appropriateness for driving. Assessment & Plan (03/07/2023 5:39 PM EST): Patient with LVAD device placed 06/06/2019 as detailed previous in great detail with secondary complications of right MCV stroke and residual left-sided deficit as discussed in detail in that regard. Clinically stable on his regimen of medication, regular follow-up with cardiology. I do not feel this would also be a limiting factor in his appropriateness for driving. Assessment & Plan (08/17/2022 10:51 AM EDT): Patient with LVAD device placed 06/06/2019 as detailed previous in great detail with secondary complications of right MCV stroke and residual left-sided deficit as discussed in detail in that regard. Clinically stable on his regimen of medication, regular follow-up with cardiology. I do not feel this would also be a limiting factor in his appropriateness for driving. Assessment & Plan (06/22/2022 12:41 PM EDT): Patient with LVAD device placed 06/06/2019 as detailed previous in great detail with secondary complications of right MCV stroke and residual left-sided deficit as discussed in detail in that regard. Clinically stable on his regimen of medication, regular follow-up with cardiology. I do not feel this would also be a limiting factor in his appropriateness for driving. Assessment & Plan (11/01/2021 2:03 PM EDT): LVAD placed 06/06/[address] Garcia, with associated hospital complications including right MCA stroke, multiple pneumonias, seizure activity, et cetera. From a cardiac perspective, ongoing monitoring, with recent summer 2021 increase of carvedilol to 25 mg twice daily, otherwise medications unchanged. Continuing spironolactone 25 mg daily, omeprazole 40 mg daily and continuing warfarin at current 4 mg daily, and the patient is target INR of 2-3. Additionally taking baby aspirin. This is in the patient with notable history of class for stage D heart failure, status post V. tach with ICD placement in the past, who proceeded with LVAD placement for these reasons. Multiple cardiac problems historically. History of coronary artery disease with history of myocardial infarction, as well as describing nonischemic dilated cardiomyopathy. Current regimen of sotalol, aspirin, carvedilol, magnesium, pravastatin, warfarin as managed by cardiology clinic at . Lasix 40 mg daily only as needed as of early 2020. Continue follow up at cardiology clinic, pending appointment January 2022. Hypersomnia 11/01/2021 Assessment & Plan (08/17/2022 10:53 AM EDT): Was evaluated locally by Dr. Edmondson, sleep testing resulted fall 2021 without signs of obstructive sleep apnea. No further evaluation necessary. Assessment & Plan (11/01/2021 2:09 PM EDT): Historical concern of contributing factor, the current home sleep apnea evaluation as per the discretion of Dr. Edmondson locally. Management per her evaluations. Microscopic hematuria 11/01/2021 Assessment & Plan (11/01/2021 2:10 PM EDT): Seen was 08/06/2014 blood work with 2+ blood, 1-5 RBCs, but 10-20 epithelial cells, with repeat from 01/13/2015 negative. Consistent with contaminant pattern which fully cleared. Gross hematuria noted with urination about 5 times over the last couple months, likely related to Coumadin and aspirin therapy. Referral to Dr. Goldman, urology fall 2020 with negative cystoscopy, followup as needed. Intrinsic asthma without sta tus asthmaticus without complication 11/01/2021 Assessment & Plan (09/06/2023 1:15 PM EDT): Pre-and post PFT from 01/13/2017 with FEV1 84% predicted pre-albuterol, 84% predicted post albuterol. FEV1/FVC ratio 115% predicted pre-albuterol, 99% predicted post albuterol. Consistent with mild restrictive pattern with no reversibility. good response to as needed medications. Patient clinically doing well without any need for rescue inhaler. Previous followup with pulmonology. Assessment & Plan (08/17/2022 10:53 AM EDT): Pre-and post PFT from 01/13/2017 with FEV1 84% predicted pre-albuterol, 84% predicted post albuterol. FEV1/FVC ratio 115% predicted pre-albuterol, 99% predicted post albuterol. Consistent with mild restrictive pattern with no reversibility. good response to as needed medications. Previous followup with pulmonology. Assessment & Plan (11/01/2021 2:10 PM EDT): Pre-and post PFT from 01/13/2017 with FEV1 84% predicted pre-albuterol, 84% predicted post albuterol. FEV1/FVC ratio 115% predicted pre-albuterol, 99% predicted post albuterol. Consistent with mild restrictive pattern with no reversibility. good response to as needed medications. Keep followup with pulmonology. Iron deficiency anemia 11/01/2021 Assessment & Plan (09/06/2023 1:15 PM EDT): Normalized with 08/17/2022 hemoglobin 15.6, hematocrit 48.4 and MCV 84. Previous 05/13/2021 with Hemoglobin 13, hematocrit 39.2, MCV 86.5, 11/11/2020 with hemoglobin 12.6, hematocrit 38.9, MCV 89.4. Platelets 285, reticulocyte count 1.4% with range 0.5-3.0%, folate normal at greater than 20, ferritin, normal range of 173, B12 normal 538. Iron slightly low at 33 with range 35-150, TIBC normal at 305 with range 250-450. Percent saturation slightly low 11% with range 15-55 percent. Previously borderline anemia pattern for which he has known hemorrhoids and had 01/16/2019 colonoscopy with one sessile polyp with five-year followup recommended. Nonetheless, in context of patient's LVAD, a mild anemia could be expected and he has stability now in normal range, previous iron and vitamin C no longer necessary but we could resume it as needed in future. Monitor with blood work 09/06/2023. Assessment & Plan (03/07/2023 5:42 PM EST): Normalized with 08/17/2022 hemoglobin 15.6, hematocrit 48.4 and MCV 84. Previous 05/13/2021 with Hemoglobin 13, hematocrit 39.2, MCV 86.5, 11/11/2020 with hemoglobin 12.6, hematocrit 38.9, MCV 89.4. Platelets 285, reticulocyte count 1.4% with range 0.5-3.0%, folate normal at greater than 20, ferritin, normal range of 173, B12 normal 538. Iron slightly low at 33 with range 35-150, TIBC normal at 305 with range 250-450. Percent saturation slightly low 11% with range 15-55 percent. Previously borderline anemia pattern for which he has known hemorrhoids and had 01/16/2019 colonoscopy with one sessile polyp with five-year followup recommended. Nonetheless, in context of patient's LVAD, a mild anemia could be expected and he has stability now in normal range, previous iron and vitamin C no longer necessary but we could resume it as needed in future. Assessment & Plan (08/17/2022 10:54 AM EDT): 05/13/2021 with Hemoglobin 13, hematocrit 39.2, MCV 86.5. Comparison 11/11/2020 with hemoglobin 12.6, hematocrit 38.9, MCV 89.4. Platelets 285. Reticulocyte count 1.4% with range 0.5-3.0%. Folate normal at greater than 20, ferritin, normal range of 173, B12 normal 538. Iron slightly low at 33 with range 35-150, TIBC normal at 305 with range 250-450. Percent saturation slightly low 11% with range 15-55 percent. Very borderline pattern for which he has known hemorrhoids and had 01/16/2019 colonoscopy with one sessile polyp with five-year followup recommended. Nonetheless, in context of patient's LVAD, a mild anemia is almost be expected and overall stability is reassuring, recommend adding iron tablet 3 times weekly coadministered with vitamin C, caution constipation. Assessment & Plan (11/01/2021 2:13 PM EDT): 05/13/2021 with Hemoglobin 13, hematocrit 39.2, MCV 86.5. Comparison 11/11/2020 with hemoglobin 12.6, hematocrit 38.9, MCV 89.4. Platelets 285. Reticulocyte count 1.4% with range 0.5-3.0%. Folate normal at greater than 20, ferritin, normal range of 173, B12 normal 538. Iron slightly low at 33 with range 35-150, TIBC normal at 305 with range 250-450. Percent saturation slightly low 11% with range 15-55 percent. Very borderline pattern for which he has known hemorrhoids and had 01/16/2019 colonoscopy with one sessile polyp with five-year followup recommended. Nonetheless, in context of patient's LVAD, a mild anemia is almost be expected and overall stability is reassuring, recommend adding iron tablet 3 times weekly coadministered with vitamin C, caution constipation. 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 Subsequent blood work verified on followup TSH 1.80, free T4-1.04 with normal T3 total of the 107 on 11/27/2018. Eendocrinology followup felt that amiodarone and digoxin may have contributed to this pattern. Most recent blood work 08/17/2022 with TSH normal at 1.210 and free T4 normal at 1.35. 05/13/2021 TSH normal 2.24, free T4 normal 1.34. Recheck TSH and free T4 pending 09/06/2023. Assessment & Plan (03/07/2023 5:37 PM EST): Diagnosed 04/12/2018 with TSH low at 0.01, free T4 elevated 3.21, this coincided with a hospitalization at [facility] where he was evaluated further, found to have hyperthyroid-type symptoms and was referred to endocrinology. Subsequent blood work verified on followup TSH 1.80, free T4-1.04 with normal T3 total of the 107 on 11/27/2018. Eendocrinology followup felt that amiodarone and digoxin may have contributed to this pattern. Most recent blood work 08/17/2022 with TSH normal at 1.210 and free T4 normal at 1.35. 05/13/2021 TSH normal 2.24, free T4 normal 1.34. Monitor at minimum yearly. Assessment & Plan (08/17/2022 10:48 AM EDT): Diagnosed 04/12/2018 with TSH low at 0.01, free T4 elevated 3.21, this coincided with a hospitalization at [facility] where he was evaluated further, found to have hyperthyroid-type symptoms and was referred to endocrinology. Subsequent blood work verified on followup TSH 1.80, free T4-1.04 with normal T3 total of the 107 on 11/27/2018. Her endocrinology followup felt to be stabilized, thought that amiodarone and digoxin may have contributed to this pattern. TSH low at 0.06 with range 0.34-4.8, free T4 normal 1.10 with range of 0.76-1.46. Comparison 12/20/2019 with TSH 1.92, free T4-1.43. 05/13/2021 TSH normal 2.24, free T4 normal 1.34. Recheck pending with blood work. Assessment & Plan (11/01/2021 2:00 PM EDT): Diagnosed 04/12/2018 with TSH low at 0.01, free T4 elevated 3.21, this coincided with a hospitalization at [facility] where he was evaluated further, found to have hyperthyroid-type symptoms and was referred to endocrinology. Subsequent blood work verified on followup TSH 1.80, free T4-1.04 with normal T3 total of the 107 on 11/27/2018. Her endocrinology followup felt to be stabilized, thought that amiodarone and digoxin may have contributed to this pattern. TSH low at 0.06 with range 0.34-4.8, free T4 normal 1.10 with range of 0.76-1.46. Comparison 12/20/2019 with TSH 1.92, free T4-1.43. 05/13/2021 TSH normal 2.24, free T4 normal 1.34. No further evaluation necessary Solitary thyroid nodule 11/13/2018 Overview (11/15/2018): FNA 11/13/18 - benign nodule. Resolved Problems Problem Noted Date Diagnosed Date Resolved Date Anxiety 11/01/2021 11/01/2021 Generalized anxiety disorder 11/01/2021 06/22/2022 Heart disease 11/01/2021 11/01/2021 Thyrotoxicosis 11/01/2021 08/17/2022 Encounters Date Type Department Care Team Description 11/01/2024 2:15 PM EDT Office Visit [facility] [address] [place] [address] [place] [address] Mimi Luna N, FRUIT TESTER Community acquired pneumonia of right lung, unspecified part of lung; Mild intermittent asthma with exacerbation 11/01/2024 Travel from Last 3 Months Immunizations Immunization Administration Dates Next Due COVID-19 ([employer]) Purple Cap Monovalent 02/09/20 21,06/02/2020,05/08/2020 Flu Vaccine Quad PF >36MO 12/04/2019 Fluzone >6mos 12/13/2023 Fluzone (or Fluarix & Flulav al for VFC) >6mos 02/13/2023,12/04/2019 Fluzone Quad >6mos (Multi-dose) 11/01/2021 Hepatitis A 11/07/2018,03/21/2018 Influenza TIV (IM) 02/05/2021,11/27/2018, 017 Influenza, Unspecified 11/01/2021,02/05/2021 Pneumococcal Conjugate 20-Valent (PCV20) 022 Pneumococcal Polysaccharide (PPSV23) 08/22/2019 Tdap 09/06/2023,11/08/2013 Family History Medical History Relation Name Comments Heart disease Brother Cancer Father Heart disease Maternal Grandfather Pancreatic cancer Maternal Grandmother Diabetes Mother Kidney disease Mother Heart disease Paternal Grandmother Heart disease Sister Hypothyroidism Sister Relation Name Status Comments Brother Father Maternal Grandfather Maternal Grandmother d in her 50s or 60s Mother (Age 65) Paternal Grandfather Paternal Grandmother (Age 60'S) Sister Social History Tobacco Use Types Packs/Day Years Used Date Smoking Tobacco: Never Smokeless Tobacco: Never Tobacco Cessation:Counseling Given: No Alcohol Use Standard Drinks/Week Comments Yes 0 [...] on file Sexual Orientation Not on file Last Filed Vital Signs Vital Sign Reading Time Taken Comments Blood Pressure 124/60 11/20/2019 11:01 AM EDT Pulse 96 11/01/2024 2:29 PM EDT Temperature 36.4 C (97.6 F) 11/01/2024 2:29 PM EDT Respiratory Rate 18 12/13/2023 2:25 PM EDT Oxygen Saturation 97% 11/01/2024 2:29 PM EDT Inhaled Oxygen Concentration - - Weight 74.4 kg (164 lb) 08/02/2024 8:32 AM EDT Height 182.9 cm (6') 12/13/2023 2:25 PM EDT Body Mass Index 22.24 12/13/2023 2:25 PM EDT Plan of Treatment Health Maintenance Due Date Last Done Comments COLOGUARD 2014 COLON CANCER SCREENING 5 YEA R SIGMOIDOSCOPY [address] COLONOGRAPHY 2014 FECAL OCCULT BLOOD TEST 2014 FIT Testing (1 year) 2014 ZOSTER VACCINE (1 of 2) 05/11/2019 ANNUAL PHYSICAL 09/05/2024 09/06/2023 LIPID PANEL 09/05/2024 09/06/2023, 08/0 03/2022, 08/17/2022, Additional history exists INFLUENZA VACCINE 10/04/2024 12/13/2023, , 11/01/2021, Additional history exists COLONOSCOPY 01/16/2029 01/16/2019, 01/16/2019 COLORECTAL CANCER SCREENING 01/16/2029 TDAP/TD VACCINES (3 - Td or Tdap) 09/05/2033 024, 11/08/2013 Pneumococcal Vaccine 50+ Completed 11/01/2021, 08/04 HEPATITIS C SCREENING Completed 12/18/2023, 022 Procedures Procedure Name Priority Date/Time Associated Diagnosis Comments LIPID PANEL Routine 09/06/2023 10:27 AM EDT Encounter for general adult medical examination with abnormal findings HM COLONOSCOPY Routine 01/16/2019 from Last 3 Months or Most Recently Relevant to Health Maintenance Results * (ABNORMAL) Lipid Panel (09/06/2023 10:27 AM EDT) Total Cholesterol 202(H) 100 - 199 mg/dL [facility] Triglycerides 133 0 - 149 mg/dL [facility] HDL Cholesterol 37(L) >39 mg/dL [facility] VLDL Cholesterol Gregory 24 5 - 40 mg/dL [facility] LDL Chol Calc (NIH) 141(H) 0 - 99 mg/dL [facility] Blood Structure of right upper limb / Unknown 09/06/2023 10:27 AM EDT 09/06/2023 Comment:Blood Release to pat i Narrative [facility] - 09/07/2023 10:07 AM EDT Performed at: 01 - [facility] [address], [place] [id number] Ophthalmic Photographer: Martin Escudero PhD, Phone: [phone] Herberth Perez MD LAB BLOOD ORDERABLES Final Resul t [facility] [address] [place] [address], [facility] [address] [place] [address], [place] [phone] * COLONOSCOPY (01/16/2019) Pathologist [facility] Colonoscopy SEE REPORT Historical Provider HEALTH MAINTENANCE Final Result from Last 3 Months or Most Recently Relevant to Health Maintenance Insurance MEDICAID [facility] Care Teams Applications Engineering Manager Relationship Specialty Start Date End Date Herberth Perez MD [address] [place] [address] [place] [address] PCP - General Internal Medicine 04/22/17 Dr. Mclaughlin Consulting Physician Infectious Diseases 06/05/23
--- OUTSIDE RECORDS SUMMARY | 2025-01-08 15:12 | XMS_ITS | Encounter Summary ---
Author Organization [email or web address] ([place], [place], [place], [place], [place]) Address [address] [place] [address] Care Team Providers Care Bartender Server Name Role Phone Unavailable Primary Care Provider Unavailabl e Encounter Details Date Type Department Care Team (Late st Contact Info) Description 05/06/2019 Transcribed Document [facility] [place] [facility] [place] [address] ProviderMg MD [facility] [place] [id number] Social History Tobacco Use Types Packs/Day Years Used Date Smoking Tobacco: Never Assessed Sex and Gender Information Value Date Recorded Sex Assigned at Not on file Legal Sex Male 1:09 PM CDT Gender Identity Not on file Sexual Orientation Not on file documented as of this encounter Miscellaneous Notes * Cerner Conversion Note - Mg Ritchie MD - 05/06/2019 11:29 AM SUPERINTENDENT MEASUREMENT Patient: JOSE PEARSON Age: 48 years Sex: Male : 1970 Associated Diagnoses: None Author: KATY FRIAS MD-CAR Subjective Asymptomatic. Denies chest pain and SOA. Iron transfusion today. QTc 552 on Tikosyn. Awaiting CardioMEMS logistics. Health Status Allergies: Allergic Reactions (Selected) No [...] 135 mL/Hr, IV Piggyback, Daily Flonase: 1 [place], Nostrils Both, BID Melatonin: 3 mg, Oral, [...] 24 hrs) Last Charted Minimum Maximum Temp 97.6 (MAY 05 04:00) 97.6 (MAY 05 04:00) 98.6 (MAY 04 12:00) Apical HR 85 (MAY 05 10:09) 85 (MAY 05 10:09) 95 (MAY 04 20:37) Mon HR 80 (MAY 05 09:30) 76 (MAY 05 03:30) 105 (MAY 04 17:00) Resp Rate 20 (MAY 05 09:30) 14 (MAY 05 01:15) H 47 (MAY 05 07:45) SBP 124 (MAY 05 09:30) 92 (MAY 04 12:00) 140 (MAY 05 09:00) DBP 82 (MAY 05 09:30) L 55 (MAY 05 04:00) H 99 (MAY 04 19:30) MAP 99 (MAY 05 09:30) 69 (MAY 05 04:00) 114 (MAY 04 19:30) SpO2 94.00 (MAY 05 09:30) L 91.00 (MAY 05 06:30) 97.00 (MAY 04 18:00) General: Alert and oriented, No acute distress. [...] - holding entresto due to low BP - Continue coreg - Continue bumex 2 BID - He's had EF <20% since 2007. Typical survival rate is 1 year and he is now 12 years past diagnosis. - Per [employer] - CardioMEMS approval with [facility] may take several weeks - will have to defer until another admission. - Transfuse iron for low saturation and ferritin less than 200 - 2 D Echo during primacor/milrenone infusion to asses LV reserve - no real change, EF still arond 20-25% PAF-currently SR - tikosyn 250 bid , QTC allowance to 550 with ICD (was 552 05/06/19 - will cont to monitor closely) - ICD insitu -resume xarelto since no CardioMEMS this admission NSVT - numerous episodes - common for him with [facility] - will try changing from Coreg 3.125mg to Bisoprolol 2.5mg BID and see if that helps any Iatrogenic Hypotension - change Entresto to Losartan, cont low dose Coreg and Aldactone hypokalemia -Corrected hypomag -Corrected Iron Deficiency -corrected Summary: will complete 72 hours of Milrinone today, finish iron infusion, monitor BP on Losartan rather than Entresto for another 1-2 days. CardioMEMS later. I Dr Alberts seen and examined patient and devised the above plan of care. documented in this encounter Plan of Treatment Not on file documented as of this encounter Visit Diagnoses Not on filedocumented in this encounter
--- OUTSIDE RECORDS SUMMARY | 2025-01-08 15:12 | XMS_ITS | Encounter Summary ---
Author Organization [employer] ([place], [place], [place], [place], [place]) Address [address] [place] [address] Care Team Providers Care Rotor Blade Installer Name Role Phone Unavailable Primary Care Provider Unavailabl e Encounter Details Date Type Department Care Team (Late st Contact Info) Description 05/07/2019 Transcribed Document [facility] [place] [facility] [place] [address] ProviderMg MD [facility] [place] [address] Social History Tobacco Use Types Packs/Day Years Used Date Smoking Tobacco: Never Assessed Sex and Gender Information Value Date Recorded Sex Assigned at Not on file Legal Sex Male 1:09 PM CDT Gender Identity Not on file Sexual Orientation Not on file documented as of this encounter Miscellaneous Notes * Cerner Conversion Note - Historical ProviderMD - 05/07/2019 5:00 AM POST EXCHANGE MANAGER Chart Check - Review Order Profile Entered On: 05/07/2019 8:35 EST Performed On: 05/07/2019 5:00 EST by Reyna Nicolas RN Chart Check All Active Orders Reviewed : Yes Reyna Nicolas RN - 05/07/2019 8:35 EST Electronically signed by [facility] Television Schedule Coordinator Heroner at 06/19/2022 10:53 PM CDT documented in this encounter Plan of Treatment Not on file documented as of this encounter Visit Diagnoses Not on filedocumented in this encounter
--- OUTSIDE RECORDS SUMMARY | 2025-01-08 15:12 | XMS_ITS | Encounter Summary ---
Author Organization [employer] ([place], [place], [place], [place], [place]) Address [address] [place] [address] Care Team Providers Care Environmental Engineering Intern Name Role Phone Unavailable Primary Care Provider Unavailabl e Encounter Details Date Type Department Care Team (Late st Contact Info) Description 05/03/2019 Transcribed Document [facility] [place] [facility] [place] [address] ProviderMg MD [facility] [place] [address] Social History Tobacco Use Types Packs/Day Years Used Date Smoking Tobacco: Never Assessed Sex and Gender Information Value Date Recorded Sex Assigned at Not on file Legal Sex Male 1:09 PM CDT Gender Identity Not on file Sexual Orientation Not on file documented as of this encounter Miscellaneous Notes * Cerner Conversion Note - Historical ProviderMD - 05/03/2019 8:[address] [facility] OT Charges Entered On: 05/03/2019 8:59 EST Performed On: 05/03/2019 8:59 EST by NAHUM CORNELIUS OTR/Kaushal Hager OT Charges Screen For Route Driver Coin Machines : 1 NAHUM CORNELIUS OTR/Kaushal - 05/03/2019 8:59 EST documented in this encounter Plan of Treatment Not on file documented as of this encounter Visit Diagnoses Not on filedocumented in this encounter
--- OUTSIDE RECORDS SUMMARY | 2025-01-08 15:12 | XMS_ITS | Encounter Summary ---
Author Organization [facility] Address [address] [place] [address] Care Team Providers Care Economic Consultant Name Role Phone Herberth Perez MD Primary Care Provider [phone] Gracia Petersen DUMPLING MACHINE OPERATOR Unavailable [phone] Yunior Solorzano MD Unavailable [phone] Ross Baez DO Unavailable [phone] Edith Aleman RN Unavailable Unavailable Encounter Details Date Type Department Care Team (Latest Contact Info) Description 12/23/2024 Travel Social History Tobacco Use Types Packs/Day Years [...] place to sleep or slept in a residential (including now)? No 12/19/2023 PHQ-9 Answer Date [...] time in the past 12 m [facility], were you homeless or living in a residential (including now)? No 04/08/2024 CAGE ASSESSMENT Answer [...] drink first t janine in the morning (EYE-BOOKING SUPERVISOR) to steady your nerves or to get rid of a hangover? 0 09/19/2021 CAGE Questionnaire Score 0 022 Utilities Answer Date Recorded In the past 12 months has e electric, gas, oil, or water company [...] AM EST Appointment Cardiac Imaging [address] [place] [address] 01/28/2025 10:00 AM EST Ancillary Procedure [facility] [place] [address] [place] [address] documented as of this encounter Goals Goal Patient Goal Type Associated Problems Recent Progress Patient-Stated? Author LVAD Short Term Goal General On track( 11:53 AM EDT) Yes Katrin Oviedo, RN Note: - 07/04/23: Patient states he wants to attend a wedding in November in [place] LVAD Director Cardiovascular Goal General On track( 11:53 AM EDT) [...] documented as of this encounter Care Teams Economic Consultant Relationship Specialty Start Date End Date Herberth Perez MD [address] [place] [address] [place] [address] PCP - General 07/17/20 Gracia Petersen APRN [address] [place] [phone] Nurse Practitioner Internal Medicine 08/06/20 Yunior Solorzano MD [address] [place] [address] Consulting Physician Gastroenterology 07/18/22 Ross Baez, [address] [place] [phone] Surgeon Cardiothoracic Surgery 07/18/22 Edith Aleman, RAT EXTERMINATOR VAD Coordinator 10/14/24 documented as of this encounter
--- OUTSIDE RECORDS SUMMARY | 2025-01-08 15:12 | XMS_ITS | Clinical Summary ---
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 Appropriate to use at infrequent dosing. Sulfamethoxazole-Trimet hoprim Diarrhea,Nausea Medium 01/09/2024 Chlorhexidine Rash Low 04/17/2024 Dapagliflozin Other - please document in the comment field Low 07/05/2022 Farxiga Nausea 3 days after starting, resolved with stopping Medications Melatonin 10 MG capsule Take 10 mg by mouth every night. 06/18/19 21 Active fluticasone (Flonase) 50 MCG/ACT nasal spray USE 2 SPRAY(S) IN EACH NOSTRIL ONCE DAILY DIRECTED 06/23/19 23 Active NON FORMULARY Take 1 each by mouth every night. Delta 9 gummies purchased in [place] Active Magnesium Chloride-Calci um (Slow Magnesium/Calc ium) 64-106 MG tablet delayed-releas e Take 1 tablet by mouth in the morning and 1 tablet before bedtime. 180 tablet 05/29/19 Active tamsulosin (Flomax) 0.4 MG 24 hr capsule Take 1 capsule (0.4 mg) by mouth 1 (one) time each day with dinner. 90 capsule 05/29/19 Active Metamucil Fiber 2 g chewable tablet Chew 1 each in the morning. Active acetaminophen (Tylenol) 325 MG tablet Take 3 tablets (975 mg) by mouth every 6 hours as needed for pain. 100 tablet 05/29/19 Active cephalexin (Keflex) 500 MG capsuleIndicat ions: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) Take 2 capsules (1,000 mg) by mouth in the morning and 2 capsules (1,000 mg) before bedtime. 360 capsule 05/29/19 Active rosuvastatin (Crestor) 20 MG tablet Take 1 tablet (20 mg) by mouth nightly. 90 tablet 05/29/19 Active metoprolol succinate XL (Toprol-XL) 25 MG 24 hr tablet Take 1 tablet (25 mg) by mouth daily. Do not crush or chew. 90 tablet 05/29/19 Active sotalol (Betapace) 120 MG tablet Take 1 tablet (120 mg) by mouth in the morning and 1 tablet (120 mg) before bedtime. 180 tablet 05/29/19 Active senna (Senokot) 8.6 MG tablet Take 1 tablet (8.6 mg) by mouth nightly. 90 tablet 05/29/19 Active polyethylene glycol (Miralax) 17 g packet Take 17 g by mouth daily as needed (constipation). 90 packet 05/29/19 Active montelukast (Singulair) 10 MG tablet Take 1 tablet (10 mg) by mouth nightly. 90 tablet 05/29/19 Active baclofen (Lioresal) 10 MG tabletIndicati ons:LVAD (left ventricular assist device) present (CMS/HCC),Bacteriology Technician [place] systolic heart failure Take 3 tablets (30 mg) by mouth nightly. 270 tablet 05/29/19 Active albuterol 108 (90 Base) MCG/ACT inhaler Inhale 1 puff 2 (two) times a day as needed for wheezing. 3 each 05/29/19 Active cetirizine (ZyrTEC) 10 MG tablet Take 1 tablet (10 mg) by mouth nightly. 90 tablet 05/29/19 Active Additional Information Patient taking differently:10 mg OralDaily, Reported on 10/29/2024 buPROPion XL (Wellbutrin XL) 300 MG 24 hr tablet Take 1 tablet (300 mg) by mouth daily. Do not crush, chew, or split. 90 tablet 05/29/19 Active FLUoxetine (PROzac) 40 MG capsule Take 1 capsule (40 mg) by mouth daily. 90 capsule 05/29/19 Active Additional Information Patient not taking.Reported on 10/29/2024 omeprazole (PriLOSEC) [address] capsule Take 1 capsule (40 mg) by mouth daily. DO NOT CRUSH OR CHEW 90 capsule 05/29/19 Active fludrocortison e (Florinef) 0.1 MG tablet Take 1 tablet by mouth daily. 30 tablet 06/11/19 Active warfarin (Coumadin) 4 MG tablet Take 1 tablet by mouth in the evening. 90 tablet 06/11/19 Active lactulose (Chronulac) 10 GM/15ML oral solution Take 30 mL by mouth 3 times a day. 473 mL 08/27/19 Active Additional Information Patient not taking.Reason: Has not needed yet, Reported on 10/29/2024 Mucus Relief 600 MG 12 hr tablet TAKE 2 TABLETS BY MOUTH TWO TIMES A DAY. DO NOT CHEW, CRUSH, OR SPLIT. 120 tablet 09/12/19 Active IV Sets-Tubing kit For fluid boluses 15 kit 5 09/21/19 Active ipratropium (Atrovent) 0.02 % nebulizer solution Take 2.5 mL by nebulization 4 times a day as needed for wheezing. 75 mL 10/30/19 Active diphenhydrAMIN E (Banophen) 25 MG capsule TAKE 1 CAPSULE BY MOUTH TWO TIMES A DAY 60 capsule 11/06/19 Active sodium chloride 0.9 % bolus Infuse 1,000 mL into a venous catheter daily at 1,000 mL/hr over 60 minutes. 65142 mL 01/09/20 Active sodium chloride 0.9 % bolus Infuse 500 mL into a venous catheter daily at 500 mL/hr over 60 minutes. 20 each 3 10/03/19 25 2024 Discontinued(R eorder) sodium chloride 0.9 % bolus Infuse 500 mL into a venous catheter daily at 500 mL/hr over 60 minutes. 20 each 3 12/24/19 25 2024 Discontinued(R eorder) sodium chloride 0.9 % bolus Infuse 500 mL into a venous catheter daily at 500 mL/hr over 60 minutes. 78203 mL 11 12/25/19 25 2024 Discontinued sodium chloride 0.9 % bolus Infuse 500 mL into a venous catheter daily at 500 mL/hr over 60 minutes. 70653 mL 11 12/26/19 25 2024 Discontinued Active Problems Problem Noted Date Diagnosed Date Left ventricular assist charisma ce (LVAD) complication, initial encounter 04/05/2024 Draining postoperative wound, initial encounter 12/18/2023 Dysuria 12/16/2023 Overview (01/02/2024): Last Assessment & Plan: presents today for complaints of difficulty urinating. [...] results when available and discuss treatment plan. Implantable cardioverter-def ibrillator (ICD) generator end of life 11/09/2023 Mild intermittent asthma with exacerbation 10/03 Overview (01/02/2024): Last Assessment & Plan: Secondary to COVID-19 diagnosis, modest pattern at [...] able to use. Advised if not improving. Allergic rhinitis due to pollen 09/06/2023 Diverticulum of esophagus, acquired 08/31/2023 Hemiplegia and hemiparesis f ollowing cerebral infarction affecting left non-dominant side 07/28/2023 Weakness 07/28/2023 Other visual disturbances 07/26/2023 Infection and inflammatory r eaction due to other cardiac and vascular devices, implants and grafts, initial encounter 07/25/2023 Methicillin susceptible Stap hylococcus aureus infection as the cause of diseases classified elsewhere 07/25/2023 Other specified diseases of upper respiratory tr act 07/04/2023 Cervicalgia 06/17/2023 Irritable bowel syndrome without diarrhea [address] lazcano of left ventricular assist device (LVAD) 06/09/2023 Nausea 03/14/2023 Prediabetes 03/07/2023 Overview (09/25/2023): Last Assessment & Plan: Hemoglobin A1c just into prediabetic range at 5.7% on 08/17/2022. Repeat hemoglobin A1c improved to 5.6% today on 09/06/2023. No polyuria polydipsia. Continue healthy diet, activity is much as able, monitor every 6 to 12 months. Changes in skin texture 02/24/2023 Esophageal diverticular disease 08/17/2022 Overview (09/25/2023): Last Assessment & Plan: Diagnosis through 06/30/2022 barium swallow with the midesophagus 2.5 cm traction diverticula. Pending investigations further through [facility] to consider appropriateness of potential repair. He has notable reflux and sticking sensation in the throat that could be benefited by repair but he may be complicated by his other medical problems. Keep follow-up with the specialist at . Vitamin D deficiency 08/17/2022 Overview (09/25/2023): Last Assessment & Plan: Vitamin D 25-hydroxy level normal 32.5 08/17/2022. As such normal range currently, no need for vitamin D replacement, although there was caution based on his wheelchair-bound status which limits his sun exposure. Recheck vitamin D 25- hydroxy level 09/06/2023, management per results. Anxiety and depression 11/01/2021 Overview (09/25/2023): Last Assessment & Plan: Stressors in large part related to multiple [...] modifications to benefit mood. Advise any worsening. 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 Leydi Hobbs. Last Assessment & Plan: Details as per assessment plan for congestive heart failure. Intrinsic asthma without sta tus asthmaticus without complication 11/01/2021 Overview (09/25/2023): Last Assessment & Plan: Pre-and post PFT from 01/13/2017 with FEV1 84% predicted pre-albuterol, 84% predicted post albuterol. FEV1/FVC ratio 115% predicted pre-albuterol, 99% predicted post albuterol. Consistent with mild restrictive pattern with no reversibility. good response to as needed medications. Patient clinically doing well without any need for rescue inhaler. Previous followup with pulmonology. Iron deficiency anemia 11/01/2021 Overview (09/25/2023): Last Assessment & Plan: Normalized with 08/17/2022 hemoglobin 15.6, hematocrit 48.4 [...] in future. Monitor with blood work 09/06/2023. Microscopic hematuria 11/01/2021 Overview (09/25/2023): Last Assessment & Plan: Seen was 08/06/2014 blood work with 2+ blood, 1-5 RBCs, but 10-20 epithelial cells, with repeat from 01/13/2015 negative. Consistent with contaminant pattern which fully cleared. Gross hematuria noted with urination about 5 times over the last couple months, likely related to Coumadin and aspirin therapy. Referral to Dr. Goldman, urology fall 2020 with negative cystoscopy, followup as needed. Other insomnia 11/01/2021 Overview (09/25/2023): Last Assessment & Plan: Was evaluated locally by Dr. Edmondson, sleep testing resulted fall 2021 without signs of obstructive sleep apnea. No further evaluation necessary. Last Assessment & Plan: Longstanding difficulty sleep, on multiple medicines including [...] consider weaning melatonin in future. Advise concerns Ventricular tachycardia 09/19/2021 Obesity (BMI 35.0-39.9 without comorbidity) 09/03 Severe obesity (BMI 35.0-39.9) with comorbidity 09/19/2021 GERD (gastroesophageal reflux disease) 2 Seizures 05/24/2021 Cerebrovascular accident (CV A) due to bilateral embolism of middle cerebral arteries 12/16/2020 Other seasonal allergic rhinitis 11/17/2020 Throat clearing 11/04/2020 HFrEF (heart failure with reduced ejection fract ion) 09/22/2020 NICM (nonischemic cardiomyopathy) 09/22/2020 Impaired cognition 09/14/2020 Dysphagia 09/14/2020 NE (myocardial infarction) 08/31/2020 High cholesterol 08/31/2020 Anticoagulant long-term use 08/31/2020 Impaired functional mobility and activity tolera nce 08/31/2020 Delayed emergence from anesthesia 08/31/2020 Benign hypertensive heart disease with heart heather lure 08/25/2020 PAF (paroxysmal atrial fibrillation) 08/10/2020 LVAD (left ventricular assist device) present Overview (09/25/2023): Heatmate 3 placed on 06/06/19 Cardiac resynchronization th erapy defibrillator (PET CAREGIVER-D) in place 08/10/2020 Overview (07/09/2024): HALL FOLLOWED BY MD LARA= LAST INTERROGATED 07/09/2024 Tracheal stenosis 01/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 FNA 11/13/18 - benign nodule. Hypertension Cardiac arrest Pulmonary embolism Overview (08/31/2020): 2019 - On ventilator 2.5 months and sepsis/pneumonia was cause, states pt.'s . Resolved Problems Problem Noted Date Diagnosed Date Resolved Date COVID-19 10/04/2023 11/24/2024 COVID-19 virus infection 10/04/2023 Overview (01/02/2024): Last Assessment & Plan: COVID-19 positive today with onset of symptoms [...] need to be reassessed in ER setting. Overweight 09/06/2023 01/05/2025 Abnormal electrocardiogram (ECG) (EKG) 03/22/2023 11/24/2024 Left ventricular enlargement 11/01/2021 11/24/2024 Overview (09/25/2023): echocardiogram 09/02/2011 with moderate to severe left ventricular enlargement, normal right ventricular and atria size, normal left atrial size. Normal left ventricular wall thickness. Moderate global hypokinesis, overall left ventricular systolic function mildly depressed with EF 35-40%. Normal right ventricular function. Otherwise normal echocardiogram. Focal (motor) epilepsy 02/05/202105/13 Decreased activity tolerance 01/21/2021 05/24/2021 Impairment of balance 01/21/20212021 Personal care impairment 01/21/2021 Allergic rhinitis caused by mold 12/16/2020 05/24/2021 PND (post-nasal drip) 12/16/20202021 Urethral bleeding 11/17/2020 05/24/2021 Chronic rhinitis 11/04/2020 05/24/2021 Paresis of lower extremity 09/14/2020 0 05/24/2021 Dysarthria 09/14/2020 05/24/[address] iveline of left ventricular assist device (LVAD) 09/01/2020 022 Left ventricular assist device complication 08/25/2020 05/24/2021 Encounter for assessment of implantable cardioverter-defibrillator (ICD) 08/10/2020 021 Chronic systolic heart failure 08/10/2020 01/05/2021 Subglottic stenosis 08/10/2020 05/03/19 22 Nonallergic vasomotor rhinitis 06/17/2020 05/24/2021 Spastic hemiparesis of left nondominant side due to cerebrovascular disease 02/19/2020 Postprocedural subglottic stenosis 01/02/2020 05/03/2021 Snoring 12/16/2019 11/24/2024 Amiodarone-induced thyroiditis 11/20/2019 05/24/2021 Malfunction of implantable cardioverter-defibrillator (ICD) 04/11/2017 022 Overview (01/21/2021): Breakdown (mechanical) of other cardiac electronic device, initial encounter AICD lead displacement 04/03/201705/24 CHF (congestive heart failure) 01/05/2021 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 Encounters Date Type Department Care Team Description 01/08/2025 Refill [facility] [address] [address] Edith Aleman, RN 01/07/[address] [place] [phone] Melisa Lara MD 01/06/2025 12:34 PM EST - 01/06/2025 11:59 PM EST Hospital Encounter Cardiac Imaging [address] [place] [address] ICD (implantable cardioverter-defibril lator) in place Discharge Disposition: Home or Self Care 01/06/2025 Travel 01/06/2025 Anticoagulation - Warfarin Visit [facility] [address] [phone] Gracia Vizcarra, RN LVAD (left ventricular assist device) present ([facility]) (Primary Dx); Anticoagulant long-term use 12/30/[address] [address] Melisa Lara MD Patient Aids requesting office notes 12/28/2024 Anticoagulation - Warfarin Visit [facility] [address] [address] Gracia Vizcarra, RN LVAD (left ventricular assist device) present ([facility]) (Primary Dx); Anticoagulant long-term use 12/25/2024 Refill [facility] [address] [place] [address] Edith Aleman, MARYCARMEN 12/24/2024 Orders Only [facility] [address] [facility] 1st Floor [address] [place] [address] Edith Aleman, RN 12/23/2024 12:44 PM EDT - 12/23/2024 11:59 PM EDT Hospital Encounter Cardiac Imaging [address] [place] [address] Biventricular ICD (implantable cardioverter-defibril lator) in place Discharge Disposition: Home or Self Care 12/23/2024 Travel 12/23/2024 Anticoagulation - Warfarin Visit [facility] [address] [facility] 1st Floor [address] [phone] Edith Aleman, RN LVAD (left ventricular assist device) present ([facility]) (Primary Dx); Anticoagulant long-term use 12/20/2024 10:46 AM EDT - 12/20/2024 11:59 PM EDT Hospital Encounter Cardiac Imaging [address] [place] [address] Biventricular ICD (implantable cardioverter-defibril lator) in place Discharge Disposition: Home or Self Care 12/20/2024 Refill [facility] [address] [place] [phone] Elisabet Raya MD 12/20/2024 Travel 12/18/2024 Orders Only [facility] [address] [place] [address] Edith Aleman, RN Cerebrovascular accident (CVA) due to embolism of cerebral artery (Primary Dx) 12/18/2024 Orders Only [facility] [address] [place] [address] Edith Aleman, RN Cerebrovascular accident (CVA) due to embolism of cerebral artery (Primary Dx) 12/17/2024 Telephone [facility] [address] [facility] [phone] Real Mclaughlin MD HCN - Patient Message 12/12/2024 Anticoagulation - Warfarin Visit [facility] [address] [facility] 1st Floor [address] [phone] Edith Aleman, RN LVAD (left ventricular assist device) present (CMS/HCC) (Primary Dx); Anticoagulant long-term use 12/01/2024 Anticoagulation - Warfarin Visit [facility] [address] [facility] 1st Floor [address] [phone] Martine Taylor RN LVAD (left ventricular assist device) present ([facility]/HCC) (Primary Dx); Anticoagulant long-term use 11/19/2024 Anticoagulation - Warfarin Visit [facility] [address] [facility] 1st Floor [address] [phone] Edith Aleman RN LVAD (left ventricular assist device) present ([facility]) (Primary Dx); Anticoagulant long-term use 11/11/2024 9:15 AM EDT - 11/11/2024 11:59 PM EDT Hospital Encounter Cardiac Imaging [address] [place] [address] ICD (implantable cardioverter-defibril lator) in place Discharge Disposition: Home or Self Care 11/11/2024 Travel 11/09/2024 Anticoagulation - Warfarin Visit [facility] [address] [facility] 1st Floor [address] [phone] Martine Taylor RN LVAD (left ventricular assist device) present ([facility]/HCC) (Primary Dx); Anticoagulant long-term use 11/04/2024 Anticoagulation - Warfarin Visit [facility] [address] [facility] 1st Floor [address] [phone] Zoey Davis RN LVAD (left ventricular assist device) present (CMS/HCC) (Primary Dx); Anticoagulant long-term use 11/01/2024 Refill [facility] [address] [facility] [address] [place] [address] Real Mclaughlin MD 11/01/2024 Orders Only [address] [address] Edith Aleman, RN Pneumonia symptoms (Primary Dx) 11/01/2024 Orders Only [address] [place] [address] Edith Aleman RN 10/29/2024 11:30 AM EDT Ancillary Procedure [address] [phone] Marti Cherry APRN LVAD (left ventricular assist device) present ([facility]) (Primary Dx); manager terminal current use of anticoagulant therapy 10/29/2024 Anticoagulation - Warfarin Visit [address] [phone] Edith Aleman, RN LVAD (left ventricular assist device) present ([facility]) (Primary Dx); Anticoagulant long-term use 10/29/2024 Travel 10/28/[address] [place] [address] Jose Armando Massey 10/23/2024 Anticoagulation - Warfarin Visit [address] [place] [address] Gracia Vizcarra, RN LVAD (left ventricular assist device) present ([facility]) (Primary Dx); Anticoagulant long-term use 10/10/2024 Telephone [facility] [address] [facility], [address] [place] [address] Real Mclaughlin MD 10/10/2024 Anticoagulation - Warfarin Visit [address]st [address] [place] [address] Martine Taylor, RN LVAD (left ventricular assist device) present ([facility]) (Primary Dx); Anticoagulant long-term use from Last 3 Months Immunizations Immunization Administration Dates Next Due Hep A, Adult 11/07/2018,03/21/2018 Influenza, injectable, quadrivalent 11/01/2021 Influenza, injectable, quadr ivalent, preservative free 02/13/2023,12/04/2019 Influenza, seasonal, injectable 02/05/2021,11/27,11/14/2016 Influenza, seasonal, injecta ble, preservative free 12/13/2023 Enikos COVID-19 Vac cine (Purple Cap) 12+ 06/02/2020,05/08/2020 Pneumococcal 20-sarthak Conj Vaccine 11/01/2021 Pneumococcal Polysaccharide PPV23 08/22/2019 Tdap 09/06/2023,11/08/2013 Family History Medical History Relation Name Comments Colon cancer Father Coronary artery disease Father Conversions - Other Mother History of urostomy Diabetes Mother Kidney failure Mother Heart failure Sister Relation Name Status Comments Father Mother Sister Social History Tobacco Use Types Packs/Day Years Used Date Smoking Tobacco: Never Passive Smoke Exposure: Never Smokeless Tobacco: Former Chew Quit: 05/06/2019 Tobacco Cessation:Counseling Given: Not Answered Alcohol Use Standard Drinks/Week Comments Not Currently [...] the money to buy more. Never true 02/03/20 25 Within the past 12 months, t [...] any time in the past 12 m [facility], were you homeless or living in a [...] drink first t janine in the morning (EYE-EGG WORKER) to steady your nerves or to get rid of a hangover? 0 09/19/2021 CAGE Questionnaire Score 0 022 Utilities Answer Date Recorded In the past 12 months has th e electric, gas, oil, or water [employer] threatened to shut off services in your home? No 04/08/2024 PHQ-2A Answer Date Recorded Patient Health Questionnaire-2 Score 0 12/21/2022 Sex and Gender Information Value Date Recorded Sex Assigned at Male 08/25/2020 11:15 AM EDT Legal Sex Male 8:00 PM EDT Gender Identity Male 08/25/2020 11:15 AM EDT Sexual Orientation Straight 08/25/2020 11 :15 AM EDT Last Filed Vital Signs Vital Sign Reading Time Taken Comments Blood Pressure 81/69 04/19/2024 11:50 AM EST Pulse 58 07/09/2024 9:53 AM EDT Temperature 36.6 C (97.8 F) 2024 2:46 AM EST Respiratory Rate 18 2024 2:46 AM EST Oxygen Saturation 94% 10/29/2024 11:42 AM EDT Inhaled Oxygen Concentration - - Weight 72.1 kg (159 lb) 10/29/2024 11:42 AM EDT Height 182.9 cm (6') 10/29/2024 11:42 AM EDT Body Mass Index 21.56 10/29/2024 11:42 AM EDT Plan of Treatment Upcoming Encounters Date Type Department Care Team (Late st Contact Info) Description 01/28/2025 9:00 AM EST Appointment Cardiac Imaging [address] [place] [address] 01/28/2025 10:00 AM EST Ancillary Procedure [facility]ona Lloyd [address] [place] [address] Health Maintenance Due Date Last Done Comments [facility]-Infant/Child/Adol SDOH Screenings 1969 [facility]-Hepatitis B Vaccines (1 of 3 - 19+ 3-dose series) 1988 CT Colonography 2014 Colonoscopy 2014 FIT-DNA 2014 FIT 2014 FOBT 2014 Sigmoidoscopy 2014 [facility]-Colorectal Cancer Screening 2014 [facility]-Zoster Vaccines (1 of 2) 05/11/2019 [facility]- SDOH Screenings 10/06/2024 [facility]-Adult SDOH Screenings 10/06/2024 04/08/2024 [id number] Vaccine ( season) 2024 02/08/2021, 06/02/2020, 05/08/2020 [facility]-Influenza Vaccine (#1) 11/04/202412/12, 02/13/2023, 11/01/2021, Additional history exists [facility]-Diabetes: Hemoglobin A1C 02/12/202512/2023, 09/06/2023, 08/17/2022, Additional history exists [facility]-Depression Screening 03/19/2025 03/19/2024, 03/06 [facility]-DTaP,Tdap,and Td Vaccines (3 - Td or Tdap) 09/05/2033 09/06/2023, 11/08/2013 [facility]-Hepatitis A Vaccines Aged Out 11/07/2018, 03/06 No longer eligible based on patient's age to complete this topic [facility]-Pneumococcal Vaccine: 50+ Years Completed 11/01/2021, 08/22/2019 [facility]-HIV Screening Completed 12/18/2023, , 05/17/2019 [facility]-Hepatitis C Screening Completed 2023, 09/18/2021, 05/17/2019 [facility]-Obesity Intervention Completed 025, 12/28/2024, 12/23/2024, Additional history exists HPV Vaccines Aged Out No longer eligi ble based on patient's age to complete this topic [facility]-HIB Vaccines Aged Out No longer e ligible based on patient's age to complete this topic [facility]-IPV Vaccines Aged Out No longer e ligible based on patient's age to complete this topic [facility]-Rotavirus Vaccines Aged Out No lo nger eligible based on patient's age to complete this topic Goals Goal Patient Goal Type Associated Problems Recent Progress Patient-Stated? Author LVAD Short Term Goal General On track( 024 11:53 AM EDT) Yes Katrin Oviedo, RN Note: - 07/04/23: Patient states he wants to attend a wedding in November in [place] LVAD Surgical Services Asst Goal General On track( 024 11:53 AM EDT) Yes Katrin Oviedo RN Note: - 07/04/23: Patient states he wants to meet his grandchild when they are born in November Medical Devices Implanted Type Area Heat Welder Plastics Device Identifier Shelf Expiration Date Model / Serial / Lot Lvad-06/06/2019 Implanted:04/2019 by Nathaniel Garcia MD (Quantity not on file) LVAD Left: [employer] / [id number] / [id number] Quartet [id number] Lead 1458Q QUARTET / [id number] / [id number] Tendril Sts [id number] Lead 2088TC TENDRIL STS / [id number] / [id number] Endotak Vilonia G [id number] Lead 0185 ENDOTAK RELIANCE G / [id number] / 3369-40c Quadra Assura Mp [id number] Implanted:07/2017 (Quantity not on file) Pacemaker 3369-40C QUADRA ASSURA MP / [id number] / Envelope Tyrx Icd Large - [id number] Implanted:Qty: 1 on 12/07/2023 by Melisa Lara MD at [facility] [id number] 08/26/2024 [id number] / [id number] Stent Graft Iliac [id number] m Viabahnbx - [id number] Implanted:Qty: 1 on 04/11/2024 by Dung Nunez MD at [facility] [employer]-1401 84 07/31/2025 [id number] / [id number] / [id number] Stent Graft Iliac [id number] m Viabahnbx - [id number] Implanted:Qty: 1 on 04/11/2024 by Dung Nunez MD at [facility] [employer]-1401 84 04/17/2026 [id number] / [id number] / [id number] Stent Graft Iliac [id number] m Viabahnbx - [id number] Implanted:Qty: 1 on 04/11/2024 by Dung Nunez MD at [facility] [employer]-1401 84 04/15/2026 [id number] / [id number] / [id number] Stent Graft Iliac [id number] m Viabahnbx - [id number] Implanted:Qty: 1 on 04/11/2024 by Dung Nunez MD at [facility] [employer]-1401 84 06/10/2026 [id number] / [id number] / [id number] Stent Graft Iliac [id number] m Viabahnbx - [id number] Implanted:Qty: 1 on 04/11/2024 by Dung Nunez MD at [facility]1401 84 07/28/2026 [id number] / [id number] / [id number] Procedures Procedure Name Priority Date/Time Associated Diagnosis Comments CARDIAC DEVICE CHECK CHECK - REMOTE ALERT Routine 01/06/2025 12:34 PM EST ICD (implantable cardioverter-defibri llator) in place EXTERNAL PROTHROMBIN TIME (PT)/INR Routine 01/05/2025 EXTERNAL PROTHROMBIN TIME (PT)/INR Routine 12/27/2024 CARDIAC DEVICE CHECK CHECK - REMOTE ALERT Routine 12/23/2024 12:44 PM EDT Biventricular ICD (implantable cardioverter-defibri llator) in place EXTERNAL PROTHROMBIN TIME (PT)/INR Routine 12/22/2024 CARDIAC DEVICE CHECK CHECK - REMOTE ALERT Routine 12/20/2024 11:11 AM EDT Biventricular ICD (implantable cardioverter-defibri llator) in place EXTERNAL PROTHROMBIN TIME (PT)/INR Routine 12/11/2024 EXTERNAL PROTHROMBIN TIME (PT)/INR Routine 12/01/2024 EXTERNAL PROTHROMBIN TIME (PT)/INR Routine 11/18/2024 CARDIAC DEVICE CHECK - REMOTE - ICD Routine 11/11/2024 9:49 AM EDT ICD (implantable cardioverter-defibri llator) in place EXTERNAL PROTHROMBIN TIME (PT)/INR Routine 11/09/2024 EXTERNAL PROTHROMBIN TIME (PT)/INR Routine 11/04/2024 COMPREHENSIVE METABOLIC PANEL, PLASMA Routine 10/29/2024 11:35 AM EDT LVAD (left ventricular assist device) present (CMS/HCC) alf current use of anticoagulant therapy CBC WITH AUTO DIFFERENTIAL Routine 10/29/2024 11:35 AM EDT LVAD (left ventricular assist device) present (CMS/HCC) alf current use of anticoagulant therapy N-TERMINAL PROBNP, PLASMA Routine 10/29/2024 11:35 AM EDT LVAD (left ventricular assist device) present (CMS/HCC) manager terminal current use of anticoagulant therapy LACTATE DEHYDROGENASE, PLASMA Routine 10/29/2024 11:35 AM EDT LVAD (left ventricular assist device) present (CMS/HCC) alf current use of anticoagulant therapy PROTHROMBIN TIME(PT) / INR Routine 10/29/2024 11:35 AM EDT LVAD (left ventricular assist device) present (CMS/HCC) alf current use of anticoagulant therapy EXTERNAL PROTHROMBIN TIME (PT)/INR Routine 10/22/2024 EXTERNAL PROTHROMBIN TIME (PT)/INR Routine 10/10/2024 HEMOGLOBIN A1C Routine 02/13/2024 11:38 AM EST LVAD (left ventricular assist device) present (CMS/HCC) alf current use of anticoagulant therapy HEPATITIS C ANTIBODY - ED W/REFLEX TO HCV QUANT PCR STAT 12/18/2023 11:15 AM EDT ED HIV 1/2 ANTIBODY/ANTIGEN SCREEN WITH REFLEX TO HIV I/II DIFFERENTIATION STAT 12/18/2023 11:15 AM EDT from Last 3 Months or Most Recently Relevant to Health Maintenance Results * CARDIAC DEVICE CHECK - REMOTE ALERT - ICD (01/06/2025 12:34 PM EST) Only the most recent of3 resultswithin the time period is included. Anatomical Region Laterality Modality Other Narrative 01/06/2025 4:17 PM EST [facility] EP - Remote CIED alert (non-scheduled) Name: Jose Pearson Date: 01/06/2025 : 1970 Age: 54 y.o. Indication for alert: NSVT (V>A) Device: Heat Welder Plastics: Hall PET CAREGIVER-ICD Summary: NSVT event, occurring 01/03, egm does not demonstrate onset, can visualize termination, duration at least 14 seconds Rate appears to flucuate in and out of VT-1 zone (150 bpm, with therapy) Action(s): Next apt with VAD 01/28/25 See attached report for CIED details Dina Saldana APRN CV IMPLANTABLE CARDIAC DEV ICE PROCEDURES Final Result * External Prothrombin Time (PT)/INR (01/05/2025) Only the most recent of10 resultswithin the time period is included. External INR - Internormal Ratio 2.2 External Prothrombin Time (PT) Blood Venous blood specimen / Unknown 01/05/2025 Historical Provider POINT OF CARE TEST ENTER/SHERIF T ORDERABLES Final Result * CARDIAC DEVICE CHECK - REMOTE - [...] events since last clinic/remote report evaluation. Dina Nicolas Saldana APRN CV IMPLANTABLE CARDIAC DEV ICE PROCEDURES Final Result * (ABNORMAL) N-Terminal Probnp, Plasma (10/29/2024 11:35 AM EDT) N-Terminal, PROBNP, Plasma 1,337(H) 0 - 899 pg/mL 10/29/2024 3:57 PM EDT [facility] Blood Venous blood specimen / Unknown Venipuncture / Unknown 10/29/2024 11:35 AM EDT 10/29/2024 11:59 AM EDT Marti Cherry APRN LAB BLOOD ORDERABLES Final Result [facility] [address] [place] [address] * (ABNORMAL) Protime-INR (10/29/2024 11:35 AM EDT) Prothrombin Time 23.6(H) 12.0 - 14.3 sec LAB COAGULATION METHOD 10/29/2024 12:31 PM EDT [facility] INR 2.1(H) 0.9 - 1.1 LAB COAGULATION METHOD 10/29/2024 12:31 PM EDT [facility] Blood Venous blood specimen / Unknown Venipuncture / Unknown 10/29/2024 11:35 AM EDT 10/29/2024 12:31 PM EDT Narrative [facility] - 10/29/2024 12:31 PM EDT OPTIMAL INR RANGES FOR PATIENT ON ORAL ANTICOAGULANT THERAPY Prevention of venous thromboembolism INR 2.0 to 3.0 In patients with heart disease: Atrial fibrillation INR 2.0 to 3.0 Valvular heart disease INR 2.0 to 3.0 Tissue heart valves INR 2.0 to 3.0 Mechanical prosthetic valves INR 2.5 to 3.5 Prevention of recurrent NE INR 2.5 to 3.5 us Marti Cherry 2 YEAR OLDS PRESCHOOL TEACHER LAB BLOOD ORDERABLES Final Result [facility] [address] [place] [address] * (ABNORMAL) Hemogram with differential (10/29/2024 11:35 AM EDT) WBC Count 5.36 3.70 - 10.30 10*3/uL LAB HEMATOLOGY METHOD 10/29/2024 12:19 PM EDT [facility] RBC Count 5.29 4.60 - 6.10 10*6/uL LAB HEMATOLOGY METHOD 10/29/2024 12:19 PM EDT [facility] HGB 9.7(L) 13.7 - 17.5 g/dL LAB HEMATOLOGY METHOD 10/29/2024 12:19 PM EDT [facility] HCT 34.1(L) 40.0 - 51.0 % LAB HEMATOLOGY METHOD 10/29/2024 12:19 PM EDT [facility] Platelet Count 328 155 - 369 10*3/uL LAB HEMATOLOGY METHOD 10/29/2024 12:19 PM EDT [facility] MCV 65(L) 79 - 98 fL LAB HEMATOLOGY METHOD 10/29/2024 12:19 PM EDT [facility] MCH 18.3(L) 26.0 - 32.0 pg LAB HEMATOLOGY METHOD 10/29/2024 12:19 PM EDT [facility] MCHC 28.4(L) 30.7 - 35.5 g/dL LAB HEMATOLOGY METHOD 10/29/2024 12:19 PM EDT [facility] RDW 21.2(H) 11.5 - 14.5 % LAB HEMATOLOGY METHOD 10/29/2024 12:19 PM EDT [facility] MPV 8.8 8.8 - 12.5 fL LAB HEMATOLOGY METHOD 10/29/2024 12:19 PM EDT [facility] nRBC 0.0 <=0.0 per 100 WBCs LAB HEMATOLOGY METHOD 10/29/2024 12:19 PM EDT [facility] Differential Type Automated LAB HEMATOLOGY METHOD 10/29/2024 12:19 PM EDT [facility] Neutrophils % 60 % LAB HEMATOLOGY METHOD 10/29/2024 12:19 PM EDT [facility] Lymphocytes % 19 % LAB HEMATOLOGY METHOD 10/29/2024 12:19 PM EDT [facility] Monocytes % 12 % LAB HEMATOLOGY METHOD 10/29/2024 12:19 PM EDT [facility] Eosinophils % 8 % LAB HEMATOLOGY METHOD 10/29/2024 12:19 PM EDT [facility] Basophils % 1 % LAB HEMATOLOGY METHOD 10/29/2024 12:19 PM EDT [facility] Immature Granulocytes % 0 % LAB HEMATOLOGY METHOD 10/29/2024 12:19 PM EDT [facility] Neutrophils Absolute 3.17 1.60 - 6.10 10*3/uL LAB HEMATOLOGY METHOD 10/29/2024 12:19 PM EDT [facility] Lymphocytes Absolute 1.03(L) 1.20 - 3.90 10*3/uL LAB HEMATOLOGY METHOD 10/29/2024 12:19 PM EDT [facility] Monocytes Absolute 0.63 0.30 - 0.90 10*3/uL LAB HEMATOLOGY METHOD 10/29/2024 12:19 PM EDT [facility] Eosinophils Absolute 0.45 0.00 - 0.50 10*3/uL LAB HEMATOLOGY METHOD 10/29/2024 12:19 PM EDT [facility] Basophils Absolute 0.07 0.00 - 0.10 10*3/uL LAB HEMATOLOGY METHOD 10/29/2024 12:19 PM EDT [facility] Immature Granulocytes Absolute 0.01 0.00 - 0.06 10*3/uL LAB HEMATOLOGY METHOD 10/29/2024 12:19 PM EDT [facility] Blood Venous blood specimen / Unknown Venipuncture / Unknown 10/29/2024 11:35 AM EDT 10/29/2024 11:59 AM EDT [facility] - 10/29/2024 12:19 PM EDT Therapeutic decision making should be based on absolute values, rather than percentages. Marti Shell [employer]Cloud 2 YEAR [employer] LAB BLOOD ORDERABLES Final Result [facility] [address] [place] [address] * Lactate dehydrogenase (10/29/2024 11:35 AM EDT) LDH, Plasma 169 116 - 250 U/L 10/29/2024 1:00 PM EDT [facility] Blood Venous blood specimen / Unknown Venipuncture / Unknown 10/29/2024 11:35 AM EDT 10/29/2024 11:59 AM EDT Marti Versartis 2 YEAR OL[employer] PRES[employer] TE[employer]ER LAB BLOOD ORDERABLES Final Result Performing Organization Address [facility] Co de Phone Number [facility] [address] [place] [address] * (ABNORMAL) Comprehensive metabolic panel (10/29/2024 11:35 AM EDT) Glucose, Plasma 98 74 - 99 mg/dL 10/29/2024 1:00 PM EDT [facility] BUN, Plasma 11 7 - 21 mg/dL 10/29/2024 1:00 PM EDT [facility] Creatinine, Plasma 0.60(L) 0.70 - 1.20 mg/dL 10/29/2024 1:00 PM EDT [facility] BUN/Creatinine Ratio 18 10/29/2024 1:00 PM EDT [facility] Sodium, Plasma 136 136 - 145 mmol/L 10/29/2024 1:00 PM EDT [facility] Potassium, Plasma 4.1 3.6 - 4.9 mmol/L 10/29/2024 1:00 PM EDT [facility] Chloride, Plasma 103 97 - 107 mmol/L 10/29/2024 1:00 PM EDT [facility] CO2, Plasma 26 22 - 29 mmol/L 10/29/2024 1:00 PM EDT [facility] Anion Gap 7 6 - 16 mmol/L 10/29/2024 1:00 PM EDT [facility] Total Calcium, Plasma 8.9 8.9 - 10.2 mg/dL 10/29/2024 1:00 PM EDT [facility] Total Protein 7.8 6.3 - 7.9 g/dL 10/29/2024 1:00 PM EDT [facility] Albumin, Plasma 3.7 3.5 - 5.2 g/dL 10/29/2024 1:00 PM EDT [facility] AST, Plasma 15 10 - 50 U/L 10/29/2024 1:00 PM EDT [facility] ALT, Plasma 10 10 - 50 U/L 10/29/2024 1:00 PM EDT [facility] Alkaline Phosphatase, Plasma 74 40 - 115 U/L 10/29/2024 1:00 PM EDT [facility] Total Bilirubin, Plasma 0.8 0.2 - 1.1 mg/dL 10/29/2024 1:00 PM EDT [facility] eGFRcr 114.0 mL/min/1.7 3m*2 10/29/2024 1:00 PM EDT [facility] Comment:Reported eGFRcr in m L/min/1.73m2 is based the CKD-EPI 2020 equation that does not use a race coefficient. Blood Venous blood specimen / Unknown Venipuncture / Unknown 10/29/2024 11:35 AM EDT 10/29/2024 11:59 AM EDT us Marti D Falls 2 YEAR OL[employer] PRES[employer] TE[employer] LAB BLOOD ORDERABLES Final Result [facility] [address] [place] [address] * Hemoglobin A1c (02/13/2024 11:38 AM EST) Hemoglobin A1c 5.2 <5.7 % 02/13/2024 12:50 PM EST [facility] Blood Venous blood specimen / Unknown Venipuncture / Unknown 02/13/2024 11:38 AM EST 02/13/2024 11:52 AM EST Narrative [facility] - 02/13/2024 12:50 PM EST HA1C Interpretive Data: Diagnosis of Diabetes: Diabetic > or = 6.5% Pre-diabetic 5.7 to 6.4% Non-diabetic < or = 5.6% Glycemic Targets for Type I and Type II Diabetics: Non- Adults <7.0% Adults <6.0% Children and Adolescents <7.5% Source: [place] [employer]. Standards of medical care in diabetes,2017. Diabetes Care.2017:40 (suppl 1):S1-S135. HbA1c assay performed by an ion-exchange chromatography method that is certified traceable to the DCCT. Marti Cherry APRN LAB BLOOD ORDERABLES Final Result Performing Organization Address City/[facility]/ZIP Co de Phone Number [facility] [address] [place] [address] * ED HIV 1/2 Antibody/Antigen Screen w/Reflex to HIV 1/2 Differentiation (12/18/2023 11:15 AM EDT) HIV 1 & 2 Antibody/Antigen Screen Non Reactive Non Reactive 12/18/2023 12:53 PM EDT [facility] Comment:Screening for HIV 1 & 2 antibodies, and P24 antigen is NONREACTIVE. No confirmatory testing is required. Blood Venous blood specimen / Unknown Venipuncture / Unknown 12/18/2023 11:15 AM EDT 12/18/2023 11:31 AM EDT Mayito Gunn MD LAB BLOOD ORDERABLES Final Res ult Performing Organization Address [facility] Co de Phone Number [facility] [address] [place] [address] * Hepatitis C Antibody - ED (12/18/2023 11:15 AM EDT) Hepatitis C Antibody Negative Negative 12/18/2023 12:39 PM EDT [facility] Blood Venous blood specimen / Unknown Venipuncture / Unknown 12/18/2023 11:15 AM EDT 12/18/2023 11:31 AM EDT Mayito Gunn MD LAB BLOOD ORDERABLES Final Res ult [facility] [address] [place] [address] from Last 3 Months or Most Recently Relevant to Health Maintenance Additional Health Concerns Infection Onset 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 Yes * Full Code Date Activated Date Inactivated Comments 04/05/2024 6:20 PM 04/11/2024 2:38 PM Question Answer Comments Patient has decision-making capacity? Yes * Full Code Date Activated Date Inactivated Comments 02/16/2024 2:44 PM 02/26/2024 6:50 PM Question Answer Comments Patient has decision-making capacity? Yes * Full Code Date Activated Date Inactivated Comments 12/18/2023 3:24 PM 12/22/2023 4:45 PM Question Answer Comments Patient has decision-making capacity? Yes * Full Code Date Activated Date Inactivated Comments 12/07/2023 8:35 AM 12/07/2023 12:37 PM Question Answer Comments Patient has decision-making capacity? Yes Care Teams Fertilizer Processing Supervisor Relationship Specialty Start Date End Date Herberth Perez MD [address] [place] [address] [place] [address] PCP - General 07/17/20 Gracia Petersen, 2 YEAR OLDS PRESCHO[employer] TEACHER [address] [place] [phone] Nurse Practitioner Internal Medicine 08/06/20 Yunior Solorzano MD [address] [facility] [address] [place] [address] Consulting Physician Gastroenterology 07/18/22 Ross Baez DO [address] [place] [phone] Surgeon Cardiothoracic Surgery 07/18/22 Edith Almean, SOURCING CONSULTANT VAD Coordinator 10/14/24
--- OUTSIDE RECORDS SUMMARY | 2025-01-08 15:12 | XMS_ITS | Encounter Summary ---
Author Organization [employer] ([place], [place], [place], [place], [place]) Address [address] [place] [address] Care Team Providers Care Cnc Operator Programmer Name Role Phone Unavailable Primary Care Provider Unavailabl e Encounter Details Date Type Department Care Team (Late st Contact Info) Description 05/06/2019 Transcribed Document [facility] [place] [address] [place] [address] ProviderMg MD [address], [place] [address] Social History Tobacco Use Types Packs/Day Years Used Date Smoking Tobacco: Never Assessed Sex and Gender Information Value Date Recorded Sex Assigned at Not on file Legal Sex Male 1:09 PM CDT Gender Identity Not on file Sexual Orientation Not on file documented as of this encounter Miscellaneous Notes * Cerner Conversion Note - Historical ProviderMD - 05/06/2019 10:45 AM BLIND HOOKER Event Note Entered On: 05/06/2019 10:47 EST Performed On: 05/06/2019 10:45 EST by Erika Robles RN Event Note Event Date/Time : 05/06/2019 10:45 EST Description of Event : pt has had 2 runs of V-tach with the first one being shown to Mayito TORIBIO who states the pt has been having these runs for years and there is no need to notify cardiology unless it sustains or pt is symptomatic Pt both times was not symptomatic Erika Robles RN - 05/06/2019 10:45 EST documented in this encounter Plan of Treatment Not on file documented as of this encounter Visit Diagnoses Not on filedocumented in this encounter
--- OUTSIDE RECORDS SUMMARY | 2025-01-08 15:12 | XMS_ITS | Encounter Summary ---
Author Organization [facility] ([place], [place], [place], [place], [place]) Address [address] [place] [address] Care Team Providers Care Sharepoint Administrator Name Role Phone Unavailable Primary Care Provider Unavailabl e Encounter Details Date Type Department Care Team (Late st Contact Info) Description 05/07/2019 Transcribed Document [facility] [place] [address] [place] [address] ProviderMg MD [facility] [place] [address] Social History Tobacco Use Types Packs/Day Years Used Date Smoking Tobacco: Never Assessed Sex and Gender Information Value Date Recorded Sex Assigned at Not on file Legal Sex Male 1:09 PM CDT Gender Identity Not on file Sexual Orientation Not on file documented as of this encounter Miscellaneous Notes * Cerner Conversion Note - Historical ProviderMD - 05/07/2019 9:57 AM ASSISTANT MERCHANDISE MANAGER Event Note Entered On: 05/07/2019 10:05 EST Performed On: 05/07/2019 9:57 EST by Gracia Carl, Methods Specialist-Health Unit Coord Event Note Event Date/Time : 05/07/2019 9:57 EST Event Details : Nursing assessment additional narrative Description of Event : Pt's QTC is 618 this AM prior to adminstering his tikosyn dose. Notified MALU Hernandez. Orders received to adminster half the ordered dose of 250mcg. Gracia Carl, Methods Specialist-Health Unit Coord - 05/07/2019 10:03 EST documented in this encounter Plan of Treatment Not on file documented as of this encounter Visit Diagnoses Not on filedocumented in this encounter
--- OUTSIDE RECORDS SUMMARY | 2025-01-08 15:12 | XMS_ITS | Encounter Summary ---
Author Organization [facility] Address [address] [place] [address] Care Team Providers Care Seismology Teacher Name Role Phone Herberth Perez MD Primary Care Provider [phone] Gracia Petersen BOOKKEEPING ASSISTANT Unavailable [phone] Yunior Solorzano MD Unavailable [phone] Ross Baez DO Unavailable [phone] Edith Aleman RN Unavailable Unavailable Encounter Details Date Type Department Care Team (Late st Contact Info) Description 12/18/2024 Orders Only [facility] [address] [place] [phone] Edith Aleman, SODA FOUNTAIN OPERATOR Cerebrovascular accident (CVA) due to embolism of cerebral artery (Primary Dx) Social History Tobacco Use Types [...] place to sleep or slept in a mcfp (including now)? No 12/19/2023 PHQ-9 Answer Date [...] any time in the past 12 m [facility], were you homeless or living in a mcfp (including now)? No 04/08/2024 CAGE ASSESSMENT Answer [...] drink first t janine in the morning (EYE-CRISIS WORKER) to steady your nerves or to get rid of a hangover? 0 09/19/2021 CAGE Questionnaire Score 0 022 Utilities Answer Date Recorded In the past 12 months has th e [employer], gas, oil, or water company threatened to [...] AM EST Appointment Cardiac Imaging [address] [place] [address] 01/28/2025 10:00 AM EST Ancillary Procedure [facility] [address] [place] [address] documented as of this encounter Goals Goal Patient Goal Type Associated Problems Recent Progress Patient-Stated? Author LVAD Short Term Goal General On track( 11:53 AM EDT) Yes Katrin Oviedo, MARYCARMEN Note: - 07/04/23: Patient states he wants to attend a wedding in November in [place] LVAD Mcc Goal General On track( 11:53 AM EDT) Yes Katrin Oviedo, MARYCARMEN Note: - 07/04/23: Patient states he wants to meet his grandchild when they are born in November documented as of this encounter Visit Diagnoses Diagnosis Cerebrovascular accident (CVA) due to embolism of cerebral artery- Primary documented in this encounter Additional Health [...] documented as of this encounter Care Teams Seismology Teacher Relationship Specialty Start Date End Date Herberth Perez MD [address] [place] [address] [place] [address] PCP - General 07/17/20 Gracia Petersen APRN [address] [place] [address] Nurse Practitioner Internal Medicine 08/06/20 Yunior Solorzano MD [address] [facility] [address] [place] [address] Consulting Physician Gastroenterology 07/18/22 Ross Baez DO [address] [phone] Surgeon Cardiothoracic Surgery 07/18/22 Edith Aleman, SODA FOUNTAIN OPERATOR VAD Coordinator 10/14/24 documented as of this encounter
--- OUTSIDE RECORDS SUMMARY | 2025-01-08 15:12 | XMS_ITS | Encounter Summary ---
Author Organization [employer] ([place], [place], [place], [place], [place]) Address [address] [place] [address] Care Team Providers Care Supervisor Webbing Name Role Phone Unavailable Primary Care Provider Unavailabl e Encounter Details Date Type Department Care Team (Late st Contact Info) Description 05/06/2019 Transcribed Document [facility] Family Medicine [facility] [place] [address] ProviderMg MD [facility] [place] [address] Social History Tobacco Use Types Packs/Day Years Used Date Smoking Tobacco: Never Assessed Sex and Gender Information Value Date Recorded Sex Assigned at Not on file Legal Sex Male 1:09 PM CDT Gender Identity Not on file Sexual Orientation Not on file documented as of this encounter Miscellaneous Notes * Cerner Conversion Note - Mg ProviderMD - 05/06/2019 8:05 AM HEAD OF RESEARCH & INSIGHTS UM Authorization Entered On: 05/06/2019 8:17 EST Performed On: 05/06/2019 8:05 EST by ARMANDO SHANNON RN-Utilization Review Primary Insurance Authorization Authorization and Policy Numbers : Insurance 1 Health Plan: [facility] Policy Number: Authorization Number: Insurance Primary Name : [employer] Administators Authorization Status-Primary : Admit approved Authorization Number-Primary : [id number] Authorized Service Begin Date-Primary : 05/03/2019 EST Authorization Comments-Primary : Per [facility], admit approved with auth #[id number] given from 05/03-05/05/19. Next review date 05/06/19. Historical Authorization Comments-Primary : Comment 1: Uploaded clinicals to [facility] administrators via [employer]. Manually faxed [employer] form. (ARMANDO SHANNON RN-Utilization Review 05/03/2019 13:31) ARMANDO SHANNON RN-Utilization Review - 05/06/2019 8:05 EST Electronically signed by [facility] Conversion Traffic Sign Supervisor Cerner at 06/19/2022 11:08 PM CDT documented in this encounter Plan of Treatment Not on file documented as of this encounter Visit Diagnoses Not on filedocumented in this encounter
--- OUTSIDE RECORDS SUMMARY | 2025-01-08 15:12 | XMS_ITS | Encounter Summary ---
Author Organization [employer] ([place], [place], [place], [place], [place]) Address [address] [place] [address] Care Team Providers Care Physical Biochemist Name Role Phone Unavailable Primary Care Provider Unavailabl e Encounter Details Date Type Department Care Team (Late st Contact Info) Description 05/06/2019 Transcribed Document [facility] [place] [place] Family Medicine [facility] [place] [address] ProviderMg [place] [address] Social History Tobacco Use Types Packs/Day Years Used Date Smoking Tobacco: Never Assessed Sex and Gender Information Value Date Recorded Sex Assigned at Not on file Legal Sex Male 1:09 PM CDT Gender Identity Not on file Sexual Orientation Not on file documented as of this encounter Miscellaneous Notes * Cerner Conversion Note - Mg ProviderMD - 05/06/2019 10:25 AM ELASTIC YARN TWISTER HELPER Spiritual Care Short Form Entered On: 05/06/2019 11:48 EST Performed On: 05/06/2019 10:25 EST by ANIKA MANRIQUEZ Chaplain-Non Cert General Information, Spiritual Care Spiritual Care Referred by : Energy Manager initiated Reason for Visit : Follow Up Ministry Provided to : Patient, Family/Significant other Intervention/Comment/Summary Points : Jose is a 48-year-old patient who is seen sitting up on the side of his bed. His , Deidre, is with him and they are both watching the geese outside the patient's window. The patient's indicates that the patient may have a procedure today. The patient responds in saying tht he is fine. They are hopeful for discharge this evening. ANIKA MANRIQUEZ Chaplain-Non Cert - 05/06/2019 11:46 EST documented in this encounter Plan of Treatment Not on file documented as of this encounter Visit Diagnoses Not on filedocumented in this encounter
--- OUTSIDE RECORDS SUMMARY | 2025-01-08 15:12 | XMS_ITS | Encounter Summary ---
Author Organization [facility] Address [address] [place] [address] Care Team Providers Care Road Traffic Controller Name Role Phone Herberth Perez MD Primary Care Provider [phone] Gracia Petersen DUST BRUSH ASSEMBLER Unavailable [phone] Yunior Solorzano MD Unavailable [phone] Ross Baez DO Unavailable [phone] Edith Aleman RN Unavailable Unavailable Encounter Details Date Type Department Care Team (Latest Contact Info) Description 12/23/2024 Anticoagulation - Warfarin Visit [facility] [place] [address] [facility] 1st Floor [address] [place] [phone] Edith Aleman, ASSISTANT GOLF COURSE SUPERINTENDENT LVAD (left ventricular assist device) present ([facility]) (Primary Dx); Anticoagulant long-term use Social History Tobacco Use Types Packs/Day Years [...] any time in the past [address] [facility], were you homeless or living in a [...] drink first t janine in the morning (EYE-LITHODUPLICATOR OPERATOR) to steady your nerves or to get rid of a hangover? 0 09/19/2021 CAGE Questionnaire Score 0 022 Utilities Answer Date Recorded In the past 12 months has e [employer], gas, oil, or water [employer] threatened to shut off services in your [...] AM EST Appointment Cardiac Imaging [address] [place] [address] 01/28/2025 10:00 AM EST Ancillary Procedure [facility] [place] [address] [place] [address] documented as of this encounter Goals Goal Patient Goal Type Associated Problems Recent Progress Patient-Stated? Author LVAD Short Term Goal General On track( 11:53 AM EDT) Yes Katrin Oviedo, RN Note: - 07/04/23: Patient states he wants to attend a wedding in November in [place] LVAD Senior Care Goal General On track( 11:53 AM EDT) Yes Katrin Oviedo, RN Note: - 07/04/23: Patient states he wants to meet his grandchild when they are born in November documented as of this encounter Procedures Procedure Name Priority Date/Time Associated Diagnosis Comments EXTERNAL PROTHROMBIN TIME (PT)/INR Routine 12/22/2024 documented in this encounter Results * External Prothrombin Time (PT)/INR (12/22/2024) External INR - Internormal Ratio 2.4 External Prothrombin Time (PT) Blood Venous blood specimen / Unknown 12/22/2024 [facility] Provider POINT OF CARE TEST ENTER/SHERIF T ORDERABLES Final Result documented in this encounter Visit Diagnoses Diagnosis LVAD (left ventricular assist device) present ([facility])- Primary Anticoagulant long-term use Encounter for long-term (current) use of anticoagulants documented in this encounter Additional Health Concerns [...] documented as of this encounter Care Teams Road Traffic Controller Relationship Specialty Start Date End Date Herberth Perez MD [address] [place] [address] [place] [address] PCP - General 07/17/20 Gracia Petersen APRN [address] [place] [address] Nurse Practitioner Internal Medicine 08/06/20 Yunior Solorzano MD [address] [place] [address] Consulting Physician Gastroenterology 07/18/22 Ross Baez DO [address] [address] Surgeon Cardiothoracic Surgery 07/18/22 Edith Aleman, ASSISTANT GOLF COURSE SUPERINTENDENT VAD Coordinator 10/14/24 documented as of this encounter
--- OUTSIDE RECORDS SUMMARY | 2025-01-08 15:12 | XMS_ITS | Encounter Summary ---
Author Organization [employer] ([place], [place], [place], [place], [place]) Address [address] [place] [address] Care Team Providers Care Instructional Systems Specialist Name Role Phone Unavailable Primary Care Provider Unavailabl e Encounter Details Date Type Department Care Team (Late st Contact Info) Description 05/06/2019 Transcribed Document [facility] Family Medicine [facility] [place] [address] ProviderMg MD [facility] [place] [address] Social History Tobacco Use Types Packs/Day Years Used Date Smoking Tobacco: Never Assessed Sex and Gender Information Value Date Recorded Sex Assigned at Not on file Legal Sex Male 1:09 PM CDT Gender Identity Not on file Sexual Orientation Not on file documented as of this encounter Miscellaneous Notes * Cerner Conversion Note - Historical ProviderMD - 05/06/2019 5:09 PM LEAF CONDITIONER HELPER Event Note Entered On: 05/06/2019 19:44 EST Performed On: 05/06/2019 17:09 EST by Gracia Carl, Apparel Sales AssociateHealth Unit Coord Event Note Event Date/Time : 05/06/2019 17:09 EST Event Location : Assigned room Event Details : Other: Transfer Gracia Carl Apparel Sales Associate-Health Unit Coord - 05/06/2019 19:43 EST Description of Event : Pt transferred from ICU via wheelchair accompanied by RN. Pt is A&Ox4 w/ no signs of distress or discomfort. Oriented pt to room & call light. at bedside. Agree w/ previous assessment unless otherwise noted. Will continue to monitor for changes. Gracia Carl Apparel Sales Associate-Health Unit Coord - 05/06/2019 19:48 EST documented in this encounter Plan of Treatment Not on file documented as of this encounter Visit Diagnoses Not on filedocumented in this encounter
--- OUTSIDE RECORDS SUMMARY | 2025-01-08 15:12 | XMS_ITS | Encounter Summary ---
Author Organization [facility] Address [address] [place] [address] Care Team Providers Care Pile Header Name Role Phone Herberth Perez MD Primary Care Provider Katrin Oviedo RN Unavailable [phone] Zaida Lafleur DESIGNER Unavailable [phone] Gracia Petersen DESIGNER Unavailable Yunior Solorzano MD Unavailable [phone] Ross Baez DO Unavailable [phone] Edith Aleman RN Unavailable Unavailable Reason for Visit * Reason Comments Med Refill Encounter Details Date Type Department Care Team (Late st Contact Info) Description 08/14/2022 Refill [facility] [place] [address] [facility] [place] [phone] Elisabet Raya MD [address] [place] [phone] Social History Tobacco Use Types Packs/Day Years [...] drink first t janine in the morning (EYE-WELDER FABRICATOR) to steady your nerves or to get [...] AM EST Appointment Cardiac Imaging [address] [place] [address] 01/28/2025 10:00 AM EST Ancillary Procedure [facility] [place] 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 MDRO Escalation Plan Comment:MDRO escalation plan through 05/06/24 04/15/2024 04/15/2024 04/20/2024 5:[address] Assessment Noted Time A fall risk assessment has been complete d for the patient 07/28/2022 9:47 AM EDT A Body Mass Index follow-up plan has been documented for the patient 07/29/2022 9:56 AM EDT documented as of this encounter Care Teams Pile Header Relationship Specialty Start Date End Date Herberth Perez MD [address] [place] [address] PCP - General 07/17/20 Katrin Oviedo, RN [facility] [address] [place] [address] VAD Coordinator Cardiology 08/06/20 10/21/24 Zaida Lafleur APRN [address] [place] [address] Nurse Practitioner Advanced Heart Failure and Transplant Cardiology 08/06/20 06/11/23 Gracia Petersen APRN [address] [place] [address] Nurse Practitioner Internal Medicine 08/06/20 Yunior Solorzano MD [address] [address] Consulting Physician Gastroenterology 07/18/22 Ross Baez, [address] [place] [address] Surgeon Cardiothoracic Surgery 07/18/22 Edith Aleman, PHYSIATRIST VAD Coordinator 10/14/24 documented as of this encounter
--- OUTSIDE RECORDS SUMMARY | 2025-01-08 15:13 | XMS_ITS | Encounter Summary ---
Author Organization [facility] Address [address] [place] [address] Care Team Providers Care Resident Care Provider Name Role Phone Herberth Perez MD Primary Care Provider [phone] Gracia Petersen ARTILLERY METEOROLOGICAL MAN Unavailable [phone] Yunior Solorzano MD Unavailable [phone] Ross Baez DO Unavailable [phone] Edith Aleman RN Unavailable Unavailable Encounter Details Date Type Department Care Team (Latest Contact Info) Description 01/06/2025 Travel Social History Tobacco Use Types Packs/Day [...] drink first t janine in the morning (EYE-TREE TOPPER) to steady your nerves or to get [...] AM EST Appointment Cardiac Imaging [address] [place] [address] 01/28/2025 10:00 AM EST Ancillary Procedure [facility] [place] [facility] [address] [place] [address] documented as of this encounter Goals Goal Patient Goal Type Associated Problems Recent Progress Patient-Stated? Author LVAD Short Term Goal General On track( 11:53 AM EDT) Yes Katrin Oviedo, RN Note: - 07/04/23: Patient states he wants to attend a wedding in November in [place] LVAD Rotary Driller Goal General On track( 11:53 AM EDT) [...] documented as of this encounter Care Teams Resident Care Provider Relationship Specialty Start Date End Date Herberth Perez MD [address] [place] [address] [place] [address] PCP - General 07/17/20 Gracia Petersen APRN [address] [place] [address] Nurse Practitioner Internal Medicine 08/06/20 Yunior Solorzano MD [address] [place] [address] Consulting Physician Gastroenterology 07/18/22 Ross Baez, [address] [place] [phone] Surgeon Cardiothoracic Surgery 07/18/22 Edith Aleman, HIGH SCHOOL SCIENCE TEACHER VAD Coordinator 10/14/24 documented as of this encounter
--- OUTSIDE RECORDS SUMMARY | 2025-01-08 15:13 | XMS_ITS | Encounter Summary ---
Author Organization Team [employer] ([place], [place], [place], [place], [place]) Address [address] [place] [address] Care Team Providers Care Web Consultant Name Role Phone Unavailable Primary Care Provider Stefan pond Encounter Details Date Type Department Care Team (Late st Contact Info) Description 03/29/2018 Transcribed Document [facility] [place] [facility] [place] [address] ProviderMg MD [facility] [place] [address] Social History Tobacco Use Types Packs/Day Years Used Date Smoking Tobacco: Never Assessed Sex and Gender Information Value Date Recorded Sex Assigned at Not on file Legal Sex Male 1:09 PM CDT Gender Identity Not on file Sexual Orientation Not on file documented as of this encounter Miscellaneous Notes * Cerner Conversion Note - Mg ProviderMD - 03/29/2018 1:19 PM RECEPTIONIST/TELEPHONE OPERATOR Discharge Instructions Entered On: 03/29/2018 13:21 EST Performed On: 03/29/2018 13:19 EST by BRIAN BEASLEY RN DC Instructions HWD Stroke/TIA Discharge Ins : N/A Heart Failure Discharge Ins : Open Warfarin Discharge Ins : N/A Diet After Discharge : Resume usual diet as tolerated Activity After Discharge : As tolerated, No strenuous activities, No heavy lifting over 10 pounds Driving After Discharge : Do not drive Showering/Bathing : No tub bathing, soaking, or swimming, Other: may shower tomorrow Wound/Incision Care After Discharge : Keep operative site/wound site clean and dry, Other: take dressing off in 24 hours BRIAN BEASLEY RN - 03/29/2018 13:19 EST Heart Failure Discharge Instructions Daily Weight : Weigh yourself daily at the same time and record, Contact doctor if you gain 3 pounds overnight or 5 pounds in 1 week, Take weight log to doctor visits Heart Failure Activity : It is important to keep as active as you can and pace yourself with rest periods Smoking /Tobacco Use : Do not smoke, Smoking cessation phone number When to Call the Doctor : Increased weight of 3 pounds or more in 1 day or 5 pounds in 1 week, Increased cough, extreme tiredness, Increased shortness of breath, Having to prop yourself up in bed with pillows to breathe easier, Chest pain, Feeling bloated, full or nauseated or a decrease in appetite, New or increased swelling in ankles, lower legs or belly, Dizziness, like you might pass out BRIAN BEASLEY RN - 03/29/2018 13:19 EST documented in this encounter Plan of Treatment Not on file documented as of this encounter Visit Diagnoses Not on filedocumented in this encounter
--- OUTSIDE RECORDS SUMMARY | 2025-01-08 15:13 | XMS_ITS | Encounter Summary ---
Author Organization [facility] Address [address] [place] [address] Care Team Providers Care Furnace Unloader Name Role Phone Herberth Perez MD Primary Care Provider [phone] Gracia Petersen BARREL POLISHER Unavailable [phone] Yunior Solorzano MD Unavailable [phone] Ross Baez DO Unavailable [phone] Edith Aleman RN Unavailable Unavailable Reason for Visit * Reason Onset Date Comments HCN - Patient Message 12/17/2024 Encounter Details Date Type Department Care Team (Late st Contact Info) Description 12/17/2024 Telephone [facility] [place] [address] [facility] [place] [address] Real Mclaughlin MD [address] [place] [address] HCN - Patient Message Social History Tobacco Use Types Packs/Day Years [...] any time in the past 12 m [facility], were you homeless or living in [...] drink first t janine in the morning (EYE-SHIRT LINE OPERATOR) to steady your nerves or to get rid of a hangover? 0 09/19/2021 CAGE Questionnaire Score 0 022 Utilities Answer Date Recorded In the past 12 months has th [employer], gas, oil, or water company threatened [...] encounter Miscellaneous Notes * Telephone Encounter - Ann Luna - 12/17/2024 12:00 PM EDT Clinical Concern/Question Reason for Call: Parental Health calling in reference to paperwork that was faxed to Dr. Mclaughlin aboutplan of treatment, they need paper work signed an faxed back. #[phone]. Please complete and fax back, if there are any issues please call [facility] at the # below. Best contact number: Other: [place]- [phone] ext [phone] Optimal time of day to reach caller: ANYTIME Additional comments/information from caller: None Note: Please do not reply to this message. Follow-up communication and further actions as a result of this message need to be communicated with the patient directly, if the patient is not active onMyChart. If the patient is active on MyChart, they will receive notification of the communication/outcome via [employer]. documented in this encounter Plan of Treatment Upcoming Encounters Date Type Department Care Team (Late st Contact Info) Description 01/28/2025 9:00 AM EST Appointment Cardiac Imaging [address] [place] [address] 01/28/2025 10:00 AM EST Ancillary Procedure [facility] [place] [address] [place] [address] documented as of this encounter Goals Goal Patient Goal Type Associated Problems Recent Progress Patient-Stated? Author LVAD Short Term Goal General On track( 11:53 AM EDT) Yes Katrin Oviedo, RN Note: - 07/04/23: Patient states he wants to attend a wedding in November in [place] LVAD Penitentiary Goal General On track( 11:53 AM EDT) [...] documented as of this encounter Care Teams Furnace Unloader Relationship Specialty Start Date End Date Herberth Perez MD [address] [place] [address] PCP - General 07/17/20 Gracia Petersen APRN [address] [place] [address] Nurse Practitioner Internal Medicine 08/06/20 Yunior Solorzano MD [address] [place] [address] Consulting Physician Gastroenterology 07/18/22 Ross Baez DO [address] [address] Surgeon Cardiothoracic Surgery 07/18/22 Edith Aleman, PRE SALES TECHNICAL CONSULTANT VAD Coordinator 10/14/24 documented as of this encounter
--- OUTSIDE RECORDS SUMMARY | 2025-01-08 15:13 | XMS_ITS | Encounter Summary ---
Author Organization [facility] Address [address] [place] [id number] Care Team Providers Care Steam Crane Operator Name Role Phone Herberth Perez MD Primary Care Provider [phone] Gracia Petersen PERSONNEL CONSULTANT Unavailable [phone] Yunior Solorzano MD Unavailable [phone] Ross Baez DO Unavailable [phone] Edith Aleman RN Unavailable Unavailable Encounter Details Date Type Department Care Team (Latest Contact Info) Description 11/09/2024 Anticoagulation - Warfarin Visit [facility] [place] [address] [place] [address] Martine Taylor, RN [facility] [address] [place] [phone] LVAD (left ventricular assist device) present ([facility]) (Primary Dx); Anticoagulant long-term use Social History [...] any time in the past 12 m [facility], were you homeless or living in a [...] drink first t janine in the morning (EYE-PRODUCE SORTER) to steady your nerves or to get [...] AM EST Appointment Cardiac Imaging [address] [place] [address] 01/28/2025 10:00 AM EST Ancillary Procedure [facility] [place] [address] [place] [address] documented as of this encounter Goals Goal Patient Goal Type Associated Problems Recent Progress Patient-Stated? Author LVAD Short Term Goal General On track( 11:53 AM EDT) Yes Katrin Oviedo, RN Note: - 07/04/23: Patient states he wants to attend a wedding in November in [place] LVAD Podiatric Technician Goal General On track( 11:53 AM EDT) Yes Katrin Oviedo, RN Note: - 07/04/23: Patient states he wants to meet his grandchild when they are born in November documented as of this encounter Procedures Procedure Name Priority Date/Time Associated Diagnosis Comments EXTERNAL PROTHROMBIN TIME (PT)/INR Routine 11/09/2024 documented in this encounter Results * External Prothrombin Time (PT)/INR (11/09/2024) External INR - Internormal Ratio 1.8 External Prothrombin Time (PT) Blood Venous blood specimen / Unknown [facility] Provider POINT OF CARE TEST ENTER/SHERIF T ORDERABLES Final Result documented in this encounter Visit Diagnoses Diagnosis LVAD (left ventricular assist device) present ([facility])- Primary Anticoagulant long-term use Encounter for long-term [...] documented as of this encounter Care Teams Steam Crane Operator Relationship Specialty Start Date End Date Herberth Perez MD [address] [place] [address] [place] [address] PCP - General 07/17/20 Gracia Petersen, PERSONNEL CONSULTANT [address] [place] [address] Nurse Practitioner Internal Medicine 08/06/20 Yunior Solorzano MD [address] [place] [address] Consulting Physician Gastroenterology 07/18/22 Ross Baez DO [address] [address] Surgeon Cardiothoracic Surgery 07/18/22 Edith Aleman, BUSINESS DIRECTOR VAD Coordinator 10/14/24 documented as of this encounter
--- OUTSIDE RECORDS SUMMARY | 2025-01-08 15:13 | XMS_ITS | Encounter Summary ---
Author Organization [employer] ([place], [place], [place], [place], [place]) Address [address] [place] [address] Care Team Providers Care Travel Occupational Therapist Name Role Phone Unavailable Primary Care Provider Unavailabl e Encounter Details Date Type Department Care Team (Late st Contact Info) Description 04/20/2018 Transcribed Document [facility] [place] [address] Provider[place] [address] Social History Tobacco Use Types Packs/Day Years Used Date Smoking Tobacco: Never Assessed Sex and Gender Information Value Date Recorded Sex Assigned at Not on file Legal Sex Male 1:09 PM CDT Gender Identity Not on file Sexual Orientation Not on file documented as of this encounter Miscellaneous Notes * Cerner Conversion Note - Mg ProviderMD - 04/20/2018 11:41 AM SHOP COOPER Patient: JOSE PEARSON Age: 47 years Sex: Male : 1970 Associated Diagnoses: None Author: BRENDON OTT APRN Subjective no cp or soa. Objective VS/Measurements Vital Measurements 04/20/2018 10:00 EST Temperature, Fahrenheit 97.4 Deg F Clinical Temperature, C 36.3 Deg C Heart Rate Monitored 79 bpm Respiratory Rate 18 Breaths/Min Systolic Blood Pressure 108 mmHg Diastolic Blood Pressure 67 mmHg Mean Arterial Pressure (MAP)-BMDI 76 Oxygen Saturation 97 % General: Alert and oriented. Neck: No carotid bruit, No jugular venous distention. Respiratory: Lungs are clear to auscultation, Respirations are non-labored, Breath sounds are equal, Symmetrical chest wall expansion. Cardiovascular: Normal rate, Regular rhythm, No murmur, No gallop, Good pulses equal in all extremities, Normal peripheral perfusion, No edema, paced . Gastrointestinal: Normal bowel sounds. Integumentary: Warm, Dry, [place]. Results Review General results HYROID ULTRASOUND HISTORY: Hyperthyroidism. PROCEDURE: Ultrasound images of the thyroid were obtained. FINDINGS: The right lobe of the thyroid measures 48 x 24 mm. It is normal in echogenicity. There is a 16 mm hypoechoic solid lesion. There is an 8 mm echogenic nodule in the lower pole. Left lobe of the thyroid measures 44 x 21 mm. It is normal in echogenicity. IMPRESSION: Thyroid nodules as above. Percutaneous biopsy is recommended with a 16 mm solid nodule in the right lobe. Impression and Plan NIDCM/CLSHF s/p Syncope with V-fib s/p ICD shock x2 04/15 - EF <20% per office ECHO 03/22/18 - NYHA = 2-3 - Cont Coreg, Entresto, Aldactone -reviewed EKG with Dr akins who measured QT and adjusted for v paced rhythm and QTC <500. PAF - dccv to sr 04/17 - tikosyn 500 bid , QTC 489 - as above, ETOH and hyperthyroidism contributing. Was unable to complete sleep study (could never fall asleep) Hyperthyroidism - new dx , thyroid us as above. - TSH <0.005 - T4 2.86 - wt loss 10lb 1 month - Discussed with Dr. Lerma. Htn hx now with chronic hypotension - stable here, cont coreg, Entresto, Aldactone. sbp 90's chronically and asymptomatic Etoh abuse -discussed cessation Plan: DC home CV stable Continue Coreg and Entresto Aldactone and tikosyn monday appt endocrine for hyperthyroid Electronically signed by Morales Mejia Conversion Deputy Commonwealth'S Attorney Heroner at 06/19/2022 11:02 PM CDT documented in this encounter Plan of Treatment Not on file documented as of this encounter Visit Diagnoses Not on filedocumented in this encounter
--- OUTSIDE RECORDS SUMMARY | 2025-01-08 15:13 | XMS_ITS | Encounter Summary ---
Author Organization [email or web address] ([place], [place], [place], [place], [place]) Address [address] [place] [address] Care Team Providers Care Roll Shop Supervisor Name Role Phone Unavailable Primary Care Provider Unavailabl e Encounter Details Date Type Department Care Team (Late st Contact Info) Description 03/29/2018 Transcribed Document [facility] [place] [address] [place] [address] ProviderMg MD [facility] [place], [place] [address] Social History Tobacco Use Types Packs/Day Years Used Date Smoking Tobacco: Never Assessed Sex and Gender Information Value Date Recorded Sex Assigned at Not on file Legal Sex Male 1:09 PM CDT Gender Identity Not on file Sexual Orientation Not on file documented as of this encounter Miscellaneous Notes * Cerner Conversion Note - Historical ProviderMD - 03/29/2018 2:00 AM SUGAR CANE GROWER Social Media Intern Details Entered On: 03/29/2018 1:30 EST Performed On: 03/29/2018 2:00 EST by Julia Majano, Rn-Resource Order Details Transport Mode Order Detail : Wheelchair Isolation Precautions Order Detail : Standard Precautions Order Detail : N/A IV Order Detail : 1 Oxygen Order Detail : 0 Nurse Collect Order Detail : 0 Lift/Transfer : Independent Central Line Order Detail : No Room Service : Appropriate Arterial Line : No Julia Majano, Rn-Resource - 03/29/2018 1:30 EST Electronically signed by Morales Mejia Conversion Electrical Technician Instructor Jessica at 06/19/2022 11:10 PM CDT documented in this encounter Plan of Treatment Not on file documented as of this encounter Visit Diagnoses Not on filedocumented in this encounter
--- OUTSIDE RECORDS SUMMARY | 2025-01-08 15:13 | XMS_ITS | Encounter Summary ---
Author Organization [employer] ([place], [place], [place], [place], [place]) Address [address] [place] [address] Care Team Providers Care Ash Kier Boiler Name Role Phone Unavailable Primary Care Provider Unavailabl e Encounter Details Date Type Department Care Team (Late st Contact Info) Description 04/23/2018 Transcribed Document [facility] [place] Family Medicine [facility] [place] [address] ProviderMg MD [facility] [place] [address] Social History Tobacco Use Types Packs/Day Years Used Date Smoking Tobacco: Never Assessed Sex and Gender Information Value Date Recorded Sex Assigned at Not on file Legal Sex Male 1:09 PM CDT Gender Identity Not on file Sexual Orientation Not on file documented as of this encounter Miscellaneous Notes * Cerner Conversion Note - Historical ProviderMD - 04/23/2018 11:02 AM DUCK FARMER Cardiac and Pulmonary Outpatient [facility] Entered On: 04/23/2018 11:03 EST Performed On: 04/23/2018 11:02 EST by EDITH CHAVIS RN Cardiac and Pulmonary Outpatient [facility] Phase 2 Cardiac Rehab Criteria Met : Heart failure (HF) Cardiac Outpatient Rehab Evaluation Comment : Order faxed to [facility] due to pts location. EDITH CHAVIS RN - 04/23/2018 11:02 EST documented in this encounter Plan of Treatment Not on file documented as of this encounter Visit Diagnoses Not on filedocumented in this encounter
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
--- OUTSIDE RECORDS SUMMARY | 2025-01-08 15:13 | XMS_ITS | Encounter Summary ---
Author Organization [employer] ([place], [place], [place], [place], [place]) Address [address] [place] [address] Care Team Providers Care Radon Inspector Name Role Phone Unavailable Primary Care Provider Unavailabl e Encounter Details Date Type Department Care Team (Late st Contact Info) Description 03/29/2018 Transcribed Document [facility] [place] [facility] [place] [address] ProviderMg MD [facility] [place] [address] Social History Tobacco Use Types Packs/Day Years Used Date Smoking Tobacco: Never Assessed Sex and Gender Information Value Date Recorded Sex Assigned at Not on file Legal Sex Male 1:09 PM CDT Gender Identity Not on file Sexual Orientation Not on file documented as of this encounter Miscellaneous Notes * Cerner Conversion Note - Historical ProviderMD - 03/29/2018 5:00 AM PATTERN CLERK Chart Check - Review Order Profile Entered On: 03/29/2018 5:04 EST Performed On: 03/29/2018 5:00 EST by Julia Majano Rn-Resource Chart Check Chart Reviewed Date and Time : 03/29/2018 5:04 EST Powerplans Initiated/Discontinued as Appropriate : Yes All Active Orders Reviewed : Yes Julia Majano Rn-Resource - 03/29/2018 5:04 EST documented in this encounter Plan of Treatment Not on file documented as of this encounter Visit Diagnoses Not on filedocumented in this encounter
--- OUTSIDE RECORDS SUMMARY | 2025-01-08 15:13 | XMS_ITS | Encounter Summary ---
Author Organization [employer] ([place], [place], [place], [place], [place]) Address [address] [place] [address] Care Team Providers Care Anodize Machine Operator Name Role Phone Unavailable Primary Care Provider Unavailabl e Encounter Details Date Type Department Care Team (Late st Contact Info) Description 03/29/2018 Transcribed Document [facility] [place] Family Medicine [facility] [place] [address] ProviderMg MD [facility] [place] [address] Social History Tobacco Use Types Packs/Day Years Used Date Smoking Tobacco: Never Assessed Sex and Gender Information Value Date Recorded Sex Assigned at Not on file Legal Sex Male 1:09 PM CDT Gender Identity Not on file Sexual Orientation Not on file documented as of this encounter Miscellaneous Notes * Cerner Conversion Note - Historical ProviderMD - 03/29/2018 10:[address] [facility] PT Charges Entered On: 03/29/2018 10:37 EST Performed On: 03/29/2018 10:28 EST by CHANEL GALE PT [facility] Charges Physical Therapy Screen : 1 CHANEL GALE PT - 03/29/2018 10:36 EST documented in this encounter Plan of Treatment Not on file documented as of this encounter Visit Diagnoses Not on filedocumented in this encounter
--- OUTSIDE RECORDS SUMMARY | 2025-01-08 15:13 | XMS_ITS | Encounter Summary ---
Author Organization [facility] Address [address] [place] [address] Care Team Providers Care Diamond Die Polisher Name Role Phone Herberth Perez MD Primary Care Provider [phone] Gracia Petersen LIGHTING FIXTURES DECORATOR Unavailable [phone] Yunior Solorzano MD Unavailable [phone] Ross Baez DO Unavailable [phone] Edith Aleman RN Unavailable Unavailable Encounter Details Date Type Department Care Team (Latest Contact Info) Description 12/12/2024 Anticoagulation - Warfarin Visit [facility] Alexis Lloyd [address] [facility] [address]st [address] [place] [id number] Edith Aleman, SUBSORTER LVAD (left ventricular assist device) present ([facility]) (Primary Dx); Anticoagulant long-term use Social History [...] any time in the past 12 m [facility], were you homeless or living in a [...] drink first t janine in the morning (EYE-SHORT PIECE HANDLER) to steady your nerves or to get rid of a hangover? 0 09/19/2021 CAGE Questionnaire Score 0 022 Utilities Answer Date Recorded In the past 12 months has e [employer], gas, oil, or water [employer] threatened to shut off services in your [...] AM EST Appointment Cardiac Imaging [address] [place] [address] 01/28/2025 10:00 AM EST Ancillary Procedure [facility] Alexis Lloyd [address] [place] [address] documented as of this encounter Goals Goal Patient Goal Type Associated Problems Recent Progress Patient-Stated? Author LVAD Short Term Goal General On track( 11:53 AM EDT) Yes Katrin Oviedo, RN Note: - 07/04/23: Patient states he wants to attend a wedding in November in [place] LVAD Snf Goal General On track( 11:53 AM EDT) Yes Katrin Oviedo, RN Note: - 07/04/23: Patient states he wants to meet his grandchild when they are born in November documented as of this encounter Procedures Procedure Name Priority Date/Time Associated Diagnosis Comments EXTERNAL PROTHROMBIN TIME (PT)/INR Routine 12/11/2024 documented in this encounter Results * External Prothrombin Time (PT)/INR (12/11/2024) External INR - Internormal Ratio 1.8 External Prothrombin Time (PT) Blood Venous blood specimen / Unknown 12/11/2024 [facility] Provider POINT OF CARE TEST ENTER/SHERIF T ORDERABLES Final Result documented in this encounter Visit Diagnoses Diagnosis LVAD (left ventricular assist device) present ([facility])- Primary Anticoagulant long-term use Encounter for long-term [...] documented as of this encounter Care Teams Diamond Die Polisher Relationship Specialty Start Date End Date Herberth Perez MD [address] [place] [address] [place] [address] PCP - General 07/17/20 Gracia Petersen APRN [address] [place] [address] Nurse Practitioner Internal Medicine 08/06/20 Yunior Solorzano MD [address] [place] [address] Consulting Physician Gastroenterology 07/18/22 Ross Baez DO [address] [address] Surgeon Cardiothoracic Surgery 07/18/22 Edith Aleman, SUBSORTER VAD Coordinator 10/14/24 documented as of this encounter
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
--- OUTSIDE RECORDS SUMMARY | 2025-01-08 15:13 | XMS_ITS | Encounter Summary ---
Author Organization [employer] ([place], [place], [place], [place], [place]) Address [address] [place] [address] Care Team Providers Care Barrel Rifler Button Name Role Phone Unavailable Primary Care Provider Unavailabl e Encounter Details Date Type Department Care Team (Late st Contact Info) Description 04/20/2018 Transcribed Document [facility] [place] [facility] [place] [address] ProviderMg MD [address] [place] [id number] Social History Tobacco Use Types Packs/Day Years Used Date Smoking Tobacco: Never Assessed Sex and Gender Information Value Date Recorded Sex Assigned at Not on file Legal Sex Male 1:09 PM CDT Gender Identity Not on file Sexual Orientation Not on file documented as of this encounter Miscellaneous Notes * Cerner Conversion Note - Mg ProviderMD - 04/20/2018 1:34 PM SCRAP CRUSHER [place] [address] [facility] [place] [address] Patient Copy Patient Information: Name: JOSE PEARSON Current Date: 04/20/2018 13:34:22 : 1970 Patient [address]: [address] [place] [id number] Patient Attending Physician: Primary Care Provider: HUMA YARBROUGH (REF)MD-INT Primary Care Provider Discharge Diagnosis: Cardiac rhythm disturbance; Hypotension; Scalp contusion; Syncope Weight on Admission: 229 lb, 0 oz Weight at Discharge: 229 lb, 7 oz Comment: Follow-up Instructions: With: Address: When: JONATAN ISABEL [address] [place] [address] [address] [place] [address] Business (1) In 17 days 05/07/2018 Comments: Office to call with appoint/instructions or you may need to call if you have not heard from them With: Address: When: KIM EDOUARD 1:45 PM Comments: follow for thyroid as we discussed. you have the appropriate address With: Address: When: [address] [place], [place] [id number] Business (1) Within 2 weeks Discharge Instructions: Diet after Discharge: Heart healthy diet Activity after Discharge: As tolerated Showering/Bathing: May shower Immunizations Documented During Stay: No Immunizations Found Heart Failure Discharge Instructions (if any): Stroke Related Discharge Instructions (if any): Warfarin Related Discharge Instructions (if any): Final Medication List: [facility] [place], [place] [id number], [phone] dofetilide (Tikosyn 250 mcg oral capsule) 2 Capsule(s) Oral Two Times A Day. Refills: 0. Other Medications albuterol (Proventil HFA 90 mcg/inh inhalation aerosol) Inhalation Four Times A Day as needed Shortness of Breath. carvedilol 6.25 Milligram(s) Oral Two Times A Day. cetirizine (cetirizine 10 mg oral tablet) 1 Tablet(s) Oral Every Day. FLUoxetine (FLUoxetine 20 mg oral capsule) 1 Capsule(s) Oral At Bedtime. fluticasone nasal (fluticasone 50 mcg/inh nasal spray) 1 [place](s) Nostrils Both Every Day. furosemide (Lasix 40 mg oral tablet) 1 Tablet(s) Oral Two Times A Day. melatonin (Melatonin 3 mg oral tablet) 1 Tablet(s) Oral One Time Order. montelukast (montelukast 10 mg oral tablet) 1 Tablet(s) Oral Every Day. nitroglycerin (Nitrostat 0.4 mg sublingual tablet) 1 Tablet(s) SubLINgual every 5 minutes as needed as needed for chest pain. If chest pain not relieved in 5 minutes after first dose, seek immediate medical attention not to exceed 3 doses/15 min--if pain persists, seek medical attention. PRAVAstatin (pravastatin 80 mg oral tablet) 1 Tablet(s) Oral At Bedtime. rivaroxaban (Xarelto 20 mg oral tablet) 1 Tablet(s) Oral Every Day. sacubitril-valsartan (Entresto 24 mg-26 mg oral tablet) 1 Tablet(s) Oral Two Times A Day. spironolactone 25 Milligram(s) Oral Every Day. Patient Allergies: No Known Medication Allergies Medication Instructions: Take your medications faithfully. Do NOT skip [...] cramping, rapid heartbeat, difficulty sleeping, and nervousness. Patient education materials: Hypotension As your heart beats, it forces blood through your body. This force is called blood pressure. If you have hypotension, you have low blood pressure. When your blood pressure is too low, you may not get enough blood to your brain. You may feel weak, feel light-headed, have a fast heartbeat, or even pass out (faint). Follow these instructions at home: Eating and drinking ??? Drink enough fluids to keep your pee (urine) clear or pale yellow. ??? Eat a healthy diet, and follow instructions from your doctor about eating or drinking restrictions. A healthy diet includes: ? Fresh fruits and vegetables. ? Whole grains. ? Low-fat (lean) meats. ? Low-fat dairy products. ??? Eat extra salt only as told. Do not add extra salt to your diet unless your doctor tells you to. ??? Eat small meals often. ??? Avoid standing up quickly after you eat. Medicines ??? Take jiob-ani-sxswoei and prescription medicines only as told by your doctor. ? Follow instructions from your doctor about changing how much you take (the dosage) of your medicines, if this applies. ? Do not stop or change your medicine on your own. General instructions ??? Wear compression stockings as told by your doctor. ??? Get up slowly from lying down or sitting. ??? Avoid hot showers and a lot of heat as told by your doctor. ??? Return to your normal activities as told by your doctor. Ask what activities are safe for you. ??? Do not use any products that contain nicotine or tobacco, such as cigarettes and e-cigarettes. If you need help quitting, ask your doctor. ??? Keep all follow-up visits as told by your doctor. This is important. Contact a doctor if: ??? You throw up (vomit). ??? You have watery poop (diarrhea). ??? You have a fever for more than 2?3 days. ??? You feel more thirsty than normal. ??? You feel weak and tired. Get help right away if: ??? You have chest pain. ??? You have a fast or irregular heartbeat. ??? You lose feeling (get numbness) in any part of your body. ??? You cannot move your arms or your legs. ??? You have trouble talking. ??? You get sweaty or feel light-headed. ??? You faint. ??? You have trouble breathing. ??? You have trouble staying awake. ??? You feel confused. This information is not intended to replace advice given to you by your health care provider. Make sure you discuss any questions you have with your health care provider. Document Released: 05/17/2010 Document Revised: 11/08/2016 Document Reviewed: 11/08/2016 [employer] Interactive Patient Education ? 2017 [employer] Inc. Syncope Introduction Syncope is when you lose temporarily pass out (faint). Signs that you may be about to pass out include: ??? Feeling dizzy or light-headed. ??? Feeling sick to your stomach (nauseous). ??? Seeing all white or all black. ??? Having cold, clammy skin. If you passed out, get help right away. Call your local emergency services (911 in the [place] Do not drive yourself to the hospital. Follow these instructions at home: Pay attention to any changes in your symptoms. Take these actions to help with your condition: ??? Have someone stay with you until you feel stable. ??? Do notdrive, use machinery, or play sports until your doctor says it is okay. ??? Keep all follow-up visits as told by your doctor. This is important. ??? If you start to feel like you might pass out, lie down right away and raise (elevate) your feet above the level of your heart. Breathe deeply and steadily. Wait until all of the symptoms are gone. ??? Drink enough fluid to keep your pee (urine) clear or pale yellow. ??? If you are taking blood pressure or heart medicine, get up slowly and spend many minutes getting ready to sit and then stand. This can help with dizziness. ??? Take ftpd-btl-zhbkkvf and prescription medicines only as told by your doctor. Get help right away if: ??? You have a very bad headache. ??? You have unusual pain in your chest, tummy, or back. ??? You are bleeding from your mouth or rectum. ??? You have black or tarry poop (stool). ??? You have a very fast or uneven heartbeat (palpitations). ??? It hurts to breathe. ??? You pass out once or more than once. ??? You have jerky movements that you cannot control (seizure). ??? You are confused. ??? You have trouble walking. ??? You are very weak. ??? You have vision problems. These symptoms may be an emergency. Do not wait to see if the symptoms will go away. Get medical help right away. Call your local emergency services (521 in the [place] Do not drive yourself to the hospital. This information is not intended to replace advice given to you by your health care provider. Make sure you discuss any questions you have with your health care provider. Document Released: 08/08/2008 Document Revised: 07/28/2016 Document Reviewed: 11/04/2015 ? 2017 Elsevier Medication Leaflets: dofetilide (eden FET i lide) Tikosyn What is the most important information I should know about dofetilide? You should not take dofetilide if you have severe kidney disease or a history of Long QT syndrome. Serious drug interactions can occur when certain medicines are used together with dofetilide. Tell each of your healthcare providers about all medicines you use now, and any medicine you start or stop using. You will need to spend at least 3 days in a hospital setting when you first start taking dofetilide. This is so your heart rhythm and kidney function can be monitored in case the medicine causes serious side effects. What is dofetilide? Dofetilide is a heart rhythm medicine, also called an antiarrhythmic. Dofetilide is used to help keep the heart beating normally in people with certain heart rhythm disorders of the atrium (the upper chambers of the heart that allow blood to flow into the heart). Dofetilide is used in people with atrial fibrillation or atrial flutter. Dofetilide may also be used for purposes not listed in this medication guide. What should I discuss with my health care provider before taking dofetilide? You should not take dofetilide if you are allergic to it, or if you have: ? severe kidney disease (or if you are on dialysis); or ?? a history of Long QT syndrome. Some medicines can cause unwanted or dangerous effects when used with dofetilide, and should not be used at the same time. Your doctor may need to change your treatment plan if you use any of the following drugs: ? cimetidine; ?? dolutegravir; ?? ketoconazole; ?? megestrol; ?? prochlorperazine; ?? trimethoprim (Proloprim, Trimpex, Bactrim, Septra); ?? verapamil; or ?? a diuretic (water pill) that contains hydrochlorothiazide (HCTZ), such as Accuretic, Aldactazide, Atacand HCT, Benicar HCT, Diovan HCT, Dyazide, Exforge HCT, Hyzaar, Lopressor HCT, Maxzide, Micardis HCT, Monopril HCT, Prinzide, Tekturna HCT, Vaseretic, and others. To make sure dofetilide is safe for you, tell your doctor if you have: ? heart disease, high blood pressure; ?? liver or kidney disease; ?? depression, mental illness; ?? asthma or allergies; ?? any active infection; ?? skin problems; or ?? an electrolyte imbalance (such as low levels of potassium or magnesium in your blood). It is not known whether this medicine will harm an unborn baby. Tell your doctor if you are or plan to become while using this medicine. It is not known whether dofetilide passes into breast milk or if it could harm a nursing baby. You should not breast-feed while you are using dofetilide. How should I take dofetilide? Dofetilide is available only from a hospital or specialty pharmacy. You will need to spend at least 3 days in a hospital setting when you first start taking dofetilide. This is so your heart rhythm and kidney function can be monitored in case the medicine causes serious side effects. Follow all directions on your prescription label. Do not take this medicine in larger or smaller amounts or for longer than recommended. You may take dofetilide with or without food. You should not skip doses or stop using dofetilide suddenly. Stopping suddenly may make your condition worse. Follow your doctor's instructions about tapering your dose. Tell your doctor if you have a prolonged illness that causes severe diarrhea, vomiting, or heavy sweating. These conditions can cause an electrolyte imbalance, making it dangerous for you to use dofetilide. Your blood pressure will need to be checked often. Your kidney function may also need to be checked with frequent blood tests. Store at room temperature away from moisture and heat. What happens if I miss a dose? Skip the missed dose and take your next dose at the usual time to stay on schedule. Do not take extra medicine to make up the missed dose. What happens if I overdose? Seek emergency medical attention or call the Poison Help line at . What should I avoid while taking dofetilide? Grapefruit and grapefruit juice may interact with dofetilide and lead to unwanted side effects. Discuss the use of grapefruit products with your doctor. What are the possible side effects of dofetilide? Get emergency medical help if you have any of these signs of an allergic reaction: hives; difficult breathing; swelling of your face, lips, tongue, or throat. Call your doctor at once if you have: ? headache with chest pain and severe dizziness, fainting, fast or pounding heartbeats; ?? loss of appetite, vomiting or severe diarrhea; or ?? low magnesium or potassium--confusion, uneven heart rate, increased thirst or urination, sweating, jerking muscle movements, leg discomfort, muscle weakness or limp feeling. Common side effects may include: ? mild headache; ?? mild dizziness; or ?? cold symptoms such as stuffy nose, sneezing, sore throat. This is not a complete list of side effects and others may occur. Call your doctor for medical advice about side effects. You may report side effects to FDA at 0-700-IOA-4104. What other drugs will affect dofetilide? Other drugs may interact with dofetilide, including prescription and ioat-wtc-fqqlvgb medicines, vitamins, and herbal products. Tell each of your health care providers about all medicines you use now and any medicine you start or stop using. Where can I get more information? Your doctor or pharmacist can provide more information about dofetilide. Remember, keep this and all other medicines out of the reach of children, never share your medicines with others, and use this medication only for the indication prescribed. Every effort has been made to ensure that the information provided by [employer]. ('[employer]') is accurate, up-to-date, and complete, but no guarantee is made to that effect. Drug information contained herein may be time sensitive. [employer] information has been compiled for use by healthcare practitioners and consumers in the [place] and therefore [employer] does not warrant that uses outside of the [place] are appropriate, unless specifically indicated otherwise. [employer]'s drug information does not endorse drugs, diagnose patients or recommend therapy. [employer] drug information is an informational resource designed [...] effective or appropriate for any given patient. [facility] does not assume any responsibility for any aspect of healthcare administered with the aid of information [facility] provides. The information contained herein is not intended to cover all possible uses, directions, precautions, warnings, drug interactions, allergic reactions, or adverse effects. If you have questions about the drugs you are taking, check with your doctor, nurse or pharmacist. Copyright 1479-9753 [facility] [employer]. Version: 4.01. Revision Date: 06/17/2015. CIGARETTE SMOKING: The facts are clear, cigarette smoking will shorten your life. Smoking can cause many illnesses along the way. As a healthcare provider, we recommend that you stop smoking. Assistance with quitting is available by contacting 4-783-JQMA-NOW. This is a free resource providing counseling, support, and referral. Or you may contact your personal physician. 4 WAYS TO GET AHEAD OF SEPSIS SEPSIS is a MEDICAL EMERGENCY. Time matters! Infections put you and your family at risk for a life-threatening condition called sepsis. Sepsis is the body???s extreme response to an infection. It is life-threatening, and without timely treatment, sepsis can rapidly lead to tissue damage, organ failure, and . Sepsis happens when an infection you already have???in your skin, lungs, urinary tract or somewhere else???triggers a chain reaction throughout your body. 1 [...] sepsis or if you have an infection that???s not getting better or is getting worse. To learn more about sepsis and how to prevent infections, visit www.cdc.gov/sepsis. STROKE is an EMERGENCY [employer] ACT F.A.S.T! FACE ?? Facial droop ?? Uneven smile ARM ?? Arm numbness ?? Arm weakness SPEECH ?? Slurred speech ?? Difficulty speaking or understanding TIME ?? Call 911 and get to the hospital immediately Have the ambulance go to the nearest stroke center. STROKE Risk Factors High blood pressure High cholesterol Heart Disease Diabetes Smoking Heavy alcohol use Physical inactivity and obesity Atrial Fibrillation (irregular heartbeat) Family history of stroke Reminder: Be sure to sign up for the [email or web address] patient portal, which gives you 26/09 access to your medical information ??? including these discharge instructions ??? using your computer, smartphone, or tablet. Just go to [employer] to get started. Questions? Call . [facility] would like to thank you for allowing us to assist you with your healthcare needs. ANASTASIA Rich DENNIS PAUL, (or claim service representative) have received the above patient education materials/instructions and have verbalized understanding: Patient Signature _ Date/Time Patient Second Officer Signature (if needed) Date/Time Clinician/Hospital Second Officer Signature (if needed) Date/Time documented in this encounter Plan of Treatment Not on file documented as of this encounter Visit Diagnoses Not on filedocumented in this encounter
--- OUTSIDE RECORDS SUMMARY | 2025-01-08 15:13 | XMS_ITS | Encounter Summary ---
Author Organization [facility] Address [address] [id number] Care Team Providers Care Residential Program Manager Name Role Phone Herberth Perez MD Primary Care Provider [phone] Gracia Petersen DAIRY NUTRITION CONSULTANT Unavailable [phone] Yunior Solorzano MD Unavailable [phone] Ross Baez DO Unavailable [phone] Edith Aleman RN Unavailable Unavailable Encounter Details Date Type Department Care Team (Latest Contact Info) Description 12/28/2024 Anticoagulation - Warfarin Visit [facility] [place] [address] [place] [address] Gracia Vizcarra, RN [facility] [address] [id number] LVAD (left ventricular assist device) present ([facility]) (Primary Dx); Anticoagulant long-term use Social History [...] place to sleep or slept in a longterm (including now)? No 12/19/2023 PHQ-9 Answer Date [...] any time in the past 12 m [facility], were you homeless or living in a longterm (including now)? No 04/08/2024 CAGE ASSESSMENT Answer [...] drink first t janine in the morning (EYE-HAND STONER) to steady your nerves or to get [...] EST Appointment Cardiac Imaging [address] [place] [address] 01/28/2025 10:00 AM EST Ancillary Procedure [facility] [place] [address] [place] [address] documented as of this encounter Goals Goal Patient Goal Type Associated Problems Recent Progress Patient-Stated? Author LVAD Short Term Goal General On track( 11:53 AM EDT) Yes Katrin Oviedo, RN Note: - 07/04/23: Patient states he wants to attend a wedding in November in [place] LVAD Hospital Pharmacist Goal General On track( 11:53 AM EDT) Yes Katrin Oviedo, RN Note: - 07/04/23: Patient states he wants to meet his grandchild when they are born in November documented as of this encounter Procedures Procedure Name Priority Date/Time Associated Diagnosis Comments EXTERNAL PROTHROMBIN TIME (PT)/INR Routine 12/27/2024 documented in this encounter Results * External Prothrombin Time (PT)/INR (12/27/2024) External INR - Internormal Ratio 2.2 External Prothrombin Time (PT) Blood Venous blood specimen / Unknown 12/27/2024 [facility] Provider POINT OF CARE TEST ENTER/SHERIF T ORDERABLES Final Result documented in this encounter Visit Diagnoses Diagnosis LVAD (left ventricular assist device) present ([facility])- Primary Anticoagulant long-term use Encounter for long-term [...] plan has been documented for the patient 12/28/2024 10:59 AM EDT documented as of this encounter Care Teams Residential Program Manager Relationship Specialty Start Date End Date Herberth Perez MD [address] [place] [address] [place] [address] PCP - General 07/17/20 Gracia Petersen, LOIR [address] [place] [address] Nurse Practitioner Internal Medicine 08/06/20 Yunior Solorzano MD [address] [place] [address] Consulting Physician Gastroenterology 07/18/22 Ross Baez DO [address] [address] Surgeon Cardiothoracic Surgery 07/18/22 Edith Aleman, ICU REGISTERED NURSE VAD Coordinator 10/14/24 documented as of this encounter
--- OUTSIDE RECORDS SUMMARY | 2025-01-08 15:13 | XMS_ITS | Encounter Summary ---
Author Organization [facility] Address [address] [place] [address] Care Team Providers Care Ring Packer Name Role Phone Herberth Perez MD Primary Care Provider [phone] Gracia Petersen SUPPORT TEAM ASSOC Unavailable [phone] Yunior Solorzano MD Unavailable [phone] Ross Baez DO Unavailable [phone] Edith Aleman RN Unavailable Unavailable Encounter Details Date Type Department Care Team (Latest Contact Info) Description 11/11/2024 Travel Social History Tobacco Use Types Packs/Day [...] any time in the past 12 m [facility], were you homeless or living in [...] drink first t janine in the morning (EYE-MOTION DESIGNER) to steady your nerves or to get [...] AM EST Appointment Cardiac Imaging [address] [place] [address] 01/28/2025 10:00 AM EST Ancillary Procedure [facility] [address] [place] [address] documented as of this encounter Goals Goal Patient Goal Type Associated Problems Recent Progress Patient-Stated? Author LVAD Short Term Goal General On track( 11:53 AM EDT) Yes Katrin Oviedo, RN Note: - 07/04/23: Patient states he wants to attend a wedding in November in [place] LVAD Concrete Pavement Installer Goal General On track( 11:53 AM EDT) [...] documented as of this encounter Care Teams Ring Packer Relationship Specialty Start Date End Date Herberth Perez MD [address] [place] [address] [place] [address] PCP - General 07/17/20 Gracia Petersen APRN [address] [place] [id number] Nurse Practitioner Internal Medicine 08/06/20 Yunior Solorzano MD [address] [place] [address] Consulting Physician Gastroenterology 07/18/22 Ross Baez, [address] [place] [phone] Surgeon Cardiothoracic Surgery 07/18/22 Edith Aleman, FELT STRIP FINISHER VAD Coordinator 10/14/24 documented as of this encounter
--- OUTSIDE RECORDS SUMMARY | 2025-01-08 15:13 | XMS_ITS | Encounter Summary ---
Author Organization [facility] ([place], [place], [place], [place], [place]) Address [address] [place] [address] Care Team Providers Care Instrumental Musician Name Role Phone Unavailable Primary Care Provider Unavailabl e Encounter Details Date Type Department Care Team (Late st Contact Info) Description 03/29/2018 Transcribed Document [facility] [place] [facility] [place] [address] ProviderMg MD [facility] [place] [address] Social History Tobacco Use Types Packs/Day Years Used Date Smoking Tobacco: Never Assessed Sex and Gender Information Value Date Recorded Sex Assigned at Not on file Legal Sex Male 1:09 PM CDT Gender Identity Not on file Sexual Orientation Not on file documented as of this encounter Miscellaneous Notes * Cerner Conversion Note - Mg Ritchie MD - 03/29/2018 10:02 AM GYPSUM CALCINER DATE OF PROCEDURE: 03/29/2018 RIGHT HEART CATHETERIZATION INDICATIONS: Acute on chronic left systolic heart failure with acute hypoxic respiratory failure. PROCEDURE: The patient has history of nonischemic dilated cardiomyopathy and recently presented to us with worsening [place] [employer] functional class III heart failure symptoms. DESCRIPTION OF PROCEDURE: Following an informed written consent, patient was brought to the cardiac catheterization laboratory where conscious sedation was performed with intravenous Versed and fentanyl for less than 23 minutes. The right groin was prepped and draped in usual sterile fashion and anesthetized with 1% xylocaine solution. Using a single wall puncture technique, an 8-Sinhala side-port sheath was introduced into the right common femoral vein. Sheath aspirated and flushed with heparinized saline solution. An 8-Sinhala [place] thermodilution catheter was advanced under continued fluoroscopic guidance. The catheter was engaged selectively in the right atrium and pressures obtained and the catheter advanced to the right ventricle and selective RV pressure was obtained. Catheter then advanced into the right main pulmonary artery and selective right main pulmonary artery pressures obtained. Catheter then advanced into the wedge position and wedge pressure was obtained. Balloon was deflated. Cardiac outputs obtained. Catheter removed. Venous side-port sheath pulled. Firm pressure applied to the right groin for 20 minutes. Good hemostasis noted. He was transferred to his room in stable condition. RESULTS: Hemodynamics in mmHg; RA 6/5, mean 3. RV 46/4. PA 47/21, mean 31. Mean pulmonary capillary wedge pressure 12. Cardiac output 4.76 L per minute. Cardiac index 2.1 L/minute/sq m. IMPRESSION: 1. Cardiac output and index at the lower limit of normal range. 2. Adequate pulmonary capillary wedge pressure. 3. Moderate pulmonary hypertension with mean pulmonary artery pressure of 31 and peak pulmonary artery pressure of 47 mmHg. PLAN: Continue current therapy. Leydi Hobbs M.D. Dict: 03/29/2018 10:02:43 Trans: 03/29/2018 12:26:35 CC1: Leydi Hobbs M.D. documented in this encounter Plan of Treatment Not on file documented as of this encounter Visit Diagnoses Not on filedocumented in this encounter
--- OUTSIDE RECORDS SUMMARY | 2025-01-08 15:13 | XMS_ITS | Encounter Summary ---
Author Organization [facility] Address [address] [place] [address] Care Team Providers Care Wood Flooring Specialist Name Role Phone Herberth Perez MD Primary Care Provider [phone] Gracia Petersen CERAMIC SPRAYER Unavailable [phone] Yunior Solorzano MD Unavailable [phone] Ross Baez DO Unavailable [phone] Edith Aleman RN Unavailable Unavailable Encounter Details Date Type Department Care Team (Late st Contact Info) Description 01/07/2025 Telephone [facility] [address] [facility] [place] [address] Melisa Vazquez MD [address] [place] [address] Social History Tobacco Use Types Packs/Day Years [...] place to sleep or slept in a snf (including now)? No 12/19/2023 PHQ-9 Answer Date [...] were you homeless or living in a snf (including now)? No 04/08/2024 CAGE ASSESSMENT Answer [...] drink first t janine in the morning (EYE-STITCHER OPERATOR) to steady your nerves or to get rid of a hangover? 0 09/19/2021 CAGE Questionnaire Score 0 022 Utilities Answer Date Recorded In the past 12 months has th e [employer], gas, oil, or water [employer] threatened to shut off services in your [...] encounter Miscellaneous Notes * Telephone Encounter - Natalie Nunez RN - 01/07/2025 1:[address] Raya ordered HH in referrals on 06/19/24. Patient hasn't seen EP since 01/2024. * Telephone Encounter - Dina Liz - 01/07/2025 1:05 PM EST Paperwork/Documentation Request Patient Name: Jose Pearson Type: Incontinence Supply Order Due Date: 01/07/25 Send To: [facility] FX: [phone] Best contact number: [phone] Lyn Optimal time of day to reach caller: ANYTIME Additional comments/information from caller: Caller has previously faxed the order to [phone] and has re-faxed it to [phone] Note: Please do not reply to this message. Follow-up communication and further actions as a result of this message need to be communicated with the patient directly, if the patient is not active onMyChart. If the patient is active on MyChart, they will receive notification of the communication/outcome via MyChart. documented in this encounter Plan of Treatment Upcoming Encounters Date Type Department Care Team (Late st Contact Info) Description 01/28/2025 9:00 AM EST Appointment Cardiac Imaging [address] [place] [address] 01/28/2025 10:00 AM EST Ancillary Procedure [facility] [address] [place] [address] documented as of this encounter Goals Goal Patient Goal Type Associated Problems Recent Progress Patient-Stated? Author LVAD Short Term Goal General On track( 11:53 AM EDT) Yes Katrin Oviedo, RN Note: - 07/04/23: Patient states he wants to attend a wedding in November in [place] LVAD Diesel Truck Crane Operator Goal General On track( 11:53 AM [...] documented as of this encounter Care Teams Wood Flooring Specialist Relationship Specialty Start Date End Date Herberth Perez MD [address] [place] [address] PCP - General 07/17/20 Gracia Petersen APRN [address] [place] [address] Nurse Practitioner Internal Medicine 08/06/20 Yunior Solorzano MD [address] [place] [address] Consulting Physician Gastroenterology 07/18/22 Ross Baez DO [address] [place] [address] Surgeon Cardiothoracic Surgery 07/18/22 Edith Aleman, SENIOR ELECTRICAL ENGINEER VAD Coordinator 10/14/24 documented as of this encounter
--- OUTSIDE RECORDS SUMMARY | 2025-01-08 15:13 | XMS_ITS | Encounter Summary ---
Author Organization [employer] ([place], [place], [place], [place], [place]) Address [address] [place] [address] Care Team Providers Care Ice Cream Maker Name Role Phone Unavailable Primary Care Provider Unavailabl e Encounter Details Date Type Department Care Team (Late st Contact Info) Description 03/29/2018 Transcribed Document [facility] [place] Family Medicine [facility] [place] [address] ProviderMg MD [address] [place] [address] Social History Tobacco Use Types Packs/Day Years Used Date Smoking Tobacco: Never Assessed Sex and Gender Information Value Date Recorded Sex Assigned at Not on file Legal Sex Male 1:09 PM CDT Gender Identity Not on file Sexual Orientation Not on file documented as of this encounter Miscellaneous Notes * Cerner Conversion Note - Mg ProviderMD - 03/29/2018 1:22 PM CHANNEL MARKETING SPECIALIST Patient Education Materials Follows: Cardiomyopathy, Adult Cardiomyopathy is a long-term (chronic) disease of the heart muscle. The disease makes the heart muscle thick, weak, or stiff. As a result, the heart works harder to pump blood. Over time, cardiomyopathy can lead to heart failure. There are several types of cardiomyopathy: ??? Dilated cardiomyopathy. This type causes the ventricles to become weak and stretched out. ??? Hypertrophic cardiomyopathy. This type causes the heart muscle to thicken. ??? Restrictive cardiomyopathy. This type causes the heart muscle to become stiff. ??? Ischemic cardiomyopathy. This type involves narrowing arteries that cause the freed of the heart to get thinner. ??? Peripartum cardiomyopathy. This type occurs during or shortly after . What are the causes? This condition may be caused by: ??? A gene that is passed down (inherited) from a family member. ??? A medical condition that damages the heart, such as: ? Diabetes. ? High blood pressure. ? Viral infection of the heart. ? Heart attack. ? Coronary heart disease. ??? Alcoholism. ??? Using illegal drugs or some prescription medicines. ??? . ??? Your body absorbing and storing too much iron (hemochromatosis). ??? Autoimmune diseases, connective tissue diseases, endocrine diseases, and muscle diseases. ??? Cancer treatments. ??? Buildup of proteins in your organs (amyloidosis), or inflammation in your organs (sarcoidosis). Often, the cause is not known. What increases the risk? This condition is more likely to develop in people who: ??? Have a family history of cardiomyopathy or other heart problems. ??? Are overweight or obese. ??? Use illegal drugs. ??? Abuse alcohol. ??? Have a medical condition that damages the heart. What are the signs or symptoms? Symptoms of this condition include: ??? Shortness of breath, especially during activity. ??? Fatigue. ??? An irregular heartbeat and heart murmurs. ??? Dizziness. ??? Light-headedness. ??? Fainting. ??? Chest pain. ??? Coughing. ??? Swelling in the lower legs, ankles, feet, abdomen, and neck veins. Often, people with this condition have no symptoms. How is this diagnosed? This condition is diagnosed based on: ??? Your symptoms and medical history. ??? A physical exam. ??? Tests. Tests may include: ??? Blood tests. ??? Imaging studies of your heart, such as: ? X-rays. ? An echocardiogram. ? An MRI. ??? An electrocardiogram (ECG). This records your heart's electrical activity. ??? A test in which you wear a portable device (event monitor) to record your heart's electrical activity while you go about your day. ??? A stress test. This monitors your heart's activity while exercising. ??? Cardiac catheterization. This procedure checks the blood pressure and blood flow in your heart. ??? An angiogram. This is an injection of dye into your arteries before imaging studies are taken. ??? Heart tissue biopsy. This removes a sample of heart tissue for examination. How is this treated? Treatment for this condition depends on the type of cardiomyopathy you have and the severity of your symptoms. If you do not have symptoms, you may not need treatment. If you need treatment, it may include: ??? Lifestyle changes, such as: ? Eating a heart-healthy diet that includes plenty of fruits, vegetables, and whole grains, and cutting down on salt (sodium). ? Maintaining a healthy weight, and losing weight, if needed. ? Getting regular exercise. ? Quitting smoking, if you smoke. ? Avoiding alcohol. ??? Medicine to: ? Lower your blood pressure. ? Slow down your heart rate. ? Keep your heart beating in a steady rhythm. ? Clear excess fluids from your body. ? Prevent blood clots. ? Balance minerals (electrolytes) in your body and get rid of extra sodium in your body. ? Reduce inflammation. ? Strengthen your heartbeat. ??? Surgery to: ? Repair a defect. ? Remove thickened tissue. ? Destroy tissues in the area of abnormal electrical activity (ablation). ? Implant a device to treat serious heart rhythm problems (implantable cardioverter-defibrillator, or ICD), or a pacemaker. ? Replace your heart (heart transplant) if all other treatments have failed (end stage). Other treatments may include cardiac resynchronization therapy (CLINICAL LAB TECHNOLOGIST) or a left ventricular assist device (LVAD). Follow these instructions at home: Lifestyle ??? Eat a heart-healthy diet. Work with your health care provider or a registered dietitian to learn about healthy eating options. ??? Maintain a healthy weight. ??? Stay physically active. Ask your health care provider to suggest some activities that are good for you. ??? Do notuse any products that contain nicotine or tobacco, such as cigarettes and e-cigarettes. If you need help quitting, ask your health care provider. ??? Limit alcohol intake to no more than one drink per day for non women and no more than two drinks per day for men. One drink equals 12 oz of beer, 5 oz of wine, or 1? oz of hard liquor. ??? Try to get at least 7 hours of sleep each night. ??? Find healthy ways to manage stress. General instructions ??? Take eqzx-yun-xszzjxf and prescription medicines only as told by your health care provider. Some medicines can be dangerous for your heart. ??? Tell all health care providers, including your dentist, that you have cardiomyopathy. When you visit the dentist or have surgery, ask your health care provider if you need antibiotics before having dental care or before the surgery. ??? Ask your health care provider if you should wear a medical identification bracelet. This may be important if you have a pacemaker or a defibrillator. ??? Make sure you get all recommended vaccinations and an annual flu shot. ??? Work closely with your health care provider to manage any long-lasting (chronic) conditions. ??? Keep all follow-up visits as told by your health care provider. This is important, even if you do not have any symptoms. Your health care provider may need to make sure your condition is not getting worse. How is this prevented? This condition cannot be prevented. Parents, siblings, and children of people with this condition may be at risk for the condition. It is a good idea for them to get screened for the condition because it is best when cardiomyopathy is found early. Screening is done with an ECG and echocardiogram. People who want to start a family may also want to meet with a genetic counselor to discuss the risk of having a child with cardiomyopathy. Contact a health care provider if: ??? Your symptoms get worse. ??? You have new symptoms. Get help right away if: ??? You have severe chest pain. ??? You have shortness of breath. ??? You cough up pink, bubbly material. ??? You have sudden sweating. ??? You feel nauseous and you vomit. ??? You suddenly become light-headed or dizzy. ??? You feel your heart beating very quickly. ??? It feels like your heart is skipping beats. These symptoms may represent a serious problem [...] with your health care provider. Document Released: 05/05/2005 Document Revised: 10/18/2016 Document Reviewed: 08/22/2016 [employer] Interactive Patient Education ? 2017 [employer] Emergency Medicine Atrial Fibrillation Atrial fibrillation is a type of irregular or rapid heartbeat (arrhythmia). In atrial fibrillation, the heart quivers continuously in a chaotic pattern. This occurs when parts of the heart receive disorganized signals that make the heart unable to pump blood normally. This can increase the risk for stroke, heart failure, and other heart-related conditions. There are different types of atrial fibrillation, including: ??? Paroxysmal atrial fibrillation. This type starts suddenly, and it usually stops on its own shortly after it starts. ??? Persistent atrial fibrillation. This type often lasts longer than a week. It may stop on its own or with treatment. ??? Long-lasting persistent atrial fibrillation. This type lasts longer than 12 months. ??? Permanent atrial fibrillation. This type does not go away. Talk with your health care provider to learn about the type of atrial fibrillation that you have. What are the causes? This condition is caused by some heart-related conditions or procedures, including: ??? A heart attack. ??? Coronary artery disease. ??? Heart failure. ??? Heart valve conditions. ??? High blood pressure. ??? Inflammation of the sac that surrounds the heart (pericarditis). ??? Heart surgery. ??? Certain heart rhythm disorders, such as Mivt-Mwekrfxcp-Wbugc syndrome. Other causes include: ??? Pneumonia. ??? Obstructive sleep apnea. ??? Blockage of an artery in the lungs (pulmonary embolism, or PE). ??? Lung cancer. ??? Chronic lung disease. ??? Thyroid problems, especially if the thyroid is overactive (hyperthyroidism). ??? Caffeine. ??? Excessive alcohol use or illegal drug use. ??? Use of some medicines, including certain decongestants and diet pills. Sometimes, the cause cannot be found. What increases the risk? This condition is more likely to develop in: ??? People who are older in age. ??? People who smoke. ??? People who have diabetes mellitus. ??? People who are overweight (obese). ??? Athletes who exercise vigorously. What are the signs or symptoms? Symptoms of this condition include: ??? A feeling that your heart is beating rapidly or irregularly. ??? A feeling of discomfort or pain in your chest. ??? Shortness of breath. ??? Sudden light-headedness or weakness. ??? Getting tired easily during exercise. In some cases, there are no symptoms. How is this diagnosed? Your health care provider may be able to detect atrial fibrillation when taking your pulse. If detected, this condition may be diagnosed with: ??? An electrocardiogram (ECG). ??? A Holter monitor test that records your heartbeat patterns over a 24-hour period. ??? Transthoracic echocardiogram (TTE) to evaluate how blood flows through your heart. ??? Transesophageal echocardiogram (FRANDY) to view more detailed images of your heart. ??? A stress test. ??? Imaging tests, such as a CT scan or chest X-ray. ??? Blood tests. How is this treated? The main goals of treatment are to prevent blood clots from forming and to keep your heart beating at a normal rate and rhythm. The type of treatment that you receive depends on many factors, such as your underlying medical conditions and how you feel when you are experiencing atrial fibrillation. This condition may be treated with: ??? Medicine to slow down the heart rate, bring the heart?s rhythm back to normal, or prevent clots from forming. ??? Electrical cardioversion. This is a procedure that resets your heart?s rhythm by delivering a controlled, low-energy shock to the heart through your skin. ??? Different types of ablation, such as catheter ablation, catheter ablation with pacemaker, or surgical ablation. These procedures destroy the heart tissues that send abnormal signals. When the pacemaker is used, it is placed under your skin to help your heart beat in a regular rhythm. Follow these instructions at home: ??? Take over-the counter and prescription medicines only as told by your health care provider. ??? If your health care provider prescribed a blood-thinning medicine (anticoagulant), take it exactly as told. Taking too much blood-thinning medicine can cause bleeding. If you do not take enough blood-thinning medicine, you will not have the protection that you need against stroke and other problems. ??? Do notuse tobacco products, including cigarettes, chewing tobacco, and e-cigarettes. If you need help quitting, ask your health care provider. ??? If you have obstructive sleep apnea, manage your condition as told by your health care provider. ??? Do notdrink alcohol. ??? Do notdrink beverages that contain caffeine, such as coffee, soda, and tea. ??? Maintain a healthy weight. Do not use diet pills unless your health care provider approves. Diet pills may make heart problems worse. ??? Follow diet instructions as told by your health care provider. ??? Exercise regularly as told by your health care provider. ??? Keep all follow-up visits as told by your health care provider. This is important. How is this prevented? Avoid drinking beverages that contain caffeine or alcohol. ??? Avoid certain medicines, especially medicines that are used for breathing problems. ??? Avoid certain herbs and herbal medicines, such as those that contain ephedra or ginseng. ??? Do notuse illegal drugs, such as cocaine and amphetamines. ??? Do notsmoke. ??? Manage your high blood pressure. Contact a health care provider if: ??? You notice a change in the rate, rhythm, or strength of your heartbeat. ??? You are taking an anticoagulant and you notice increased bruising. ??? You tire more easily when you exercise or exert yourself. Get help right away if: ??? You have chest pain, abdominal pain, sweating, or weakness. ??? You feel nauseous. ??? You notice blood in your vomit, bowel movement, or urine. ??? You have shortness of breath. ??? You suddenly have swollen feet and ankles. ??? You feel dizzy. ??? You have sudden weakness or numbness of the face, arm, or leg, especially on one side of the body. ??? You have trouble speaking, trouble understanding, or both (aphasia). ??? Your face or your eyelid droops on one side. These symptoms may represent a serious problem [...] care provider. Document Released: 02/20/2006 Document Revised: 06/29/2016 Document Reviewed: 06/17/2015 [employer] Interactive Patient Education ? 2017 [employer] documented in this encounter Plan of Treatment Not on file documented as of this encounter Visit Diagnoses Not on filedocumented in this encounter
--- OUTSIDE RECORDS SUMMARY | 2025-01-08 15:13 | XMS_ITS | Encounter Summary ---
Author Organization [facility] Address [address] [id number] Care Team Providers Care Oven Equipment Repairer Name Role Phone Herberth Perez MD Primary Care Provider [phone] Gracia Petersen PHYSICIST NUCLEAR Unavailable [phone] Yunior Solorzano MD Unavailable [phone] Ross Baez DO Unavailable [phone] Edith Aleman RN Unavailable Unavailable Reason for Visit * Reason Onset Date Comments Med Refill 12/20/2024 Encounter Details Date Type Department Care Team (Late st Contact Info) Description 12/20/2024 Refill [facility] [place] 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 [place] [address] documented as of this encounter Goals Goal Patient Goal Type Associated Problems Recent Progress Patient-Stated? Author LVAD Short Term Goal General On track( 024 11:53 AM EDT) Yes Katrin Oviedo RN Note: - 07/04/23: Patient states he wants to attend a wedding in November in [place] LVAD Technology Teacher Goal General On track( 024 11:53 AM [...] documented as of this encounter Care Teams Oven Equipment Repairer Relationship Specialty Start Date End Date Herberth Perez MD [address] [place] [address] [place] [address] PCP - General 07/17/20 Gracia Petersen APRN [address] [place] [id number] Nurse Practitioner Internal Medicine 08/06/20 Yunior Solorzano MD [address] [place] [address] Consulting Physician Gastroenterology 07/18/22 Ross Baez DO [address] [address] Surgeon Cardiothoracic Surgery 07/18/22 Edith Aleman, CLOUD SERVICES ARCHITECT VAD Coordinator 10/14/24 documented as of this encounter
--- OUTSIDE RECORDS SUMMARY | 2025-01-08 15:13 | XMS_ITS | Encounter Summary ---
Author Organization [employer] ([place], [place], [place], [place], [place]) Address [address] [place] [address] Care Team Providers Care Furnace Process Plant Operator Name Role Phone Unavailable Primary Care Provider Unavailabl e Encounter Details Date Type Department Care Team (Late st Contact Info) Description 03/29/2018 Transcribed Document [facility] [place] [address] [place] [address] ProviderMg MD [facility] [place], [place] [address] Social History Tobacco Use Types Packs/Day Years Used Date Smoking Tobacco: Never Assessed Sex and Gender Information Value Date Recorded Sex Assigned at Not on file Legal Sex Male 1:09 PM CDT Gender Identity Not on file Sexual Orientation Not on file documented as of this encounter Miscellaneous Notes * Cerner Conversion Note - Historical ProviderMD - 03/29/2018 10:28 AM PACKAGE HANDLER Therapy Screen, PT Entered On: 03/29/2018 10:37 EST Performed On: 03/29/2018 10:28 EST by CHANEL GALE, PT Therapy Screen, PT Medical Chart Reviewed : Yes Person Providing Information : Nurse, Patient Screen Completed : Yes Recommendation for Evaluation, PT : None Recommendations Upon Discharge : None Additional Therapy Screen Comment : Patient denies need for PT services at this time. States he is at his baseline with mobility and will likely discharge home today. CHANEL GALE, PT - 03/29/2018 10:36 EST documented in this encounter Plan of Treatment Not on file documented as of this encounter Visit Diagnoses Not on filedocumented in this encounter
--- OUTSIDE RECORDS SUMMARY | 2025-01-08 15:13 | XMS_ITS | Encounter Summary ---
Author Organization [employer] ([place], [place], [place], [place], [place]) Address [address] [place] [address] Care Team Providers Care Record Tester Name Role Phone Unavailable Primary Care Provider Unavailabl e Encounter Details Date Type Department Care Team (Late st Contact Info) Description 04/20/2018 Transcribed Document [facility] [place] Family Medicine [facility] [place] [address] ProviderMg MD [facility] [place], [place] [address] Social History Tobacco Use Types Packs/Day Years Used Date Smoking Tobacco: Never Assessed Sex and Gender Information Value Date Recorded Sex Assigned at Not on file Legal Sex Male 1:09 PM CDT Gender Identity Not on file Sexual Orientation Not on file documented as of this encounter Miscellaneous Notes * Cerner Conversion Note - Historical ProviderMD - 04/20/2018 2:00 AM TECHNICAL TRAINER Orthopedic Podiatrist Details Entered On: 04/20/2018 5:45 EST Performed On: 04/20/2018 2:00 EST by JB GUTIERREZ, MARYCARMEN Order Details Transport Mode Order Detail : Ambulatory Isolation Precautions Order Detail : Standard Precautions Order Detail : N/A IV Order Detail : 1 Oxygen Order Detail : 0 Nurse Collect Order Detail : 0 Lift/Transfer : Independent Central Line Order Detail : No Room Service : Appropriate Arterial Line : No JB GUTIERREZ, MARYCARMEN - 04/20/2018 5:45 EST documented in this encounter Plan of Treatment Not on file documented as of this encounter Visit Diagnoses Not on filedocumented in this encounter
--- OUTSIDE RECORDS SUMMARY | 2025-01-08 15:13 | XMS_ITS | Encounter Summary ---
Author Organization [employer] ([place], [place], [place], [place], [place]) Address [address] [place] [address] Care Team Providers Care Deployment Manager Name Role Phone Unavailable Primary Care Provider Unavailabl e Encounter Details Date Type Department Care Team (Late st Contact Info) Description 04/20/2018 Transcribed Document [facility] [place] Family [place] [facility] [address] ProviderMg MD [facility] [place] [address] Social History Tobacco Use Types Packs/Day Years Used Date Smoking Tobacco: Never Assessed Sex and Gender Information Value Date Recorded Sex Assigned at Not on file Legal Sex Male 1:09 PM CDT Gender Identity Not on file Sexual Orientation Not on file documented as of this encounter Miscellaneous Notes * Cerner Conversion Note - Historical ProviderMD - 04/20/2018 1:33 PM TAPE CALENDER Nursing Discharge Summary Entered On: 04/20/2018 13:34 EST Performed On: 04/20/2018 13:33 EST by RAJAT NAZARIO engineering project manager Documentation Patient Disposition, General : Discharge IV Discontinued : Yes RAJAT NAZARIO RN - 04/20/2018 13:35 EST Discharge Date/Time : 04/20/2018 13:33 EST Discharge To : Home with ambulatory/outpatient follow-up Mode Of Departure, General Discharge : Private vehicle Accompanied By, Discharge : Significant other Personal Belongings With Patient : Yes Prescriptions Given to Patient : Electronically sent Discharge Instructions Reviewed With, Opportunity For Questions Given : Patient, Significant other Patient Education Completed : Yes Teaching Method : Explanation Teaching Evaluation : Verbalizes understanding RAJAT NAZARIO RN - 04/20/2018 13:33 EST Electronically signed by Jackie [facility] Conversion Arson And Bomb Investigator Cerner at 06/19/2022 11:02 PM CDT documented in this encounter Plan of Treatment Not on file documented as of this encounter Visit Diagnoses Not on filedocumented in this encounter
--- OUTSIDE RECORDS SUMMARY | 2025-01-08 15:13 | XMS_ITS | Encounter Summary ---
Author Organization [facility] Address [address] [id number] Care Team Providers Care Event Specialist Food Demonstrator Name Role Phone Herberth Perez MD Primary Care Provider [phone] Gracia Petersen FLAVOR TANK TENDER Unavailable [phone] Yunior Solorzano MD Unavailable [phone] Ross Baez DO Unavailable [phone] Edith Aleman RN Unavailable Unavailable Encounter Details Date Type Department Care Team (Latest Contact Info) Description 01/06/2025 Anticoagulation - Warfarin Visit [facility] [place] [address] [place] [address] Gracia Vizcarra, RN [facility] VAD PROGRAM [address] [id number] LVAD (left ventricular assist device) present ([facility]) (Primary Dx); Anticoagulant long-term use Social [...] place to sleep or slept in a fci (including now)? No 12/19/2023 PHQ-9 Answer Date [...] any time in the past 12 m [facility], were you homeless or living in a fci (including now)? No 04/08/2024 CAGE ASSESSMENT Answer [...] drink first t janine in the morning (EYE-ASSET PROTECTION DETECTIVE) to steady your nerves or to get [...] AM EST Appointment Cardiac Imaging [address] [place] [address] 01/28/2025 10:00 AM EST Ancillary Procedure [facility] [place] [address] [place] [address] documented as of this encounter Goals Goal Patient Goal Type Associated Problems Recent Progress Patient-Stated? Author LVAD Short Term Goal General On track( 11:53 AM EDT) Yes Katrin Oviedo, RN Note: - 07/04/23: Patient states he wants to attend a wedding in November in [place] LVAD Global Risk Management Director Goal General On track( 11:53 AM EDT) Yes Katrin Oviedo, RN Note: - 07/04/23: Patient states he wants to meet his grandchild when they are born in November documented as of this encounter Procedures Procedure Name Priority Date/Time Associated Diagnosis Comments EXTERNAL PROTHROMBIN TIME (PT)/INR Routine 01/05/2025 documented in this encounter Results * External Prothrombin Time (PT)/INR (01/05/2025) External INR - Internormal Ratio 2.2 External Prothrombin Time (PT) Blood Venous blood specimen / Unknown 01/05/2025 [facility] Provider POINT OF CARE TEST ENTER/SHERIF T ORDERABLES Final Result documented in this encounter Visit Diagnoses Diagnosis LVAD (left ventricular assist device) present ([facility])- Primary Anticoagulant long-term use Encounter for [...] documented as of this encounter Care Teams Event Specialist Food Demonstrator Relationship Specialty Start Date End Date Herberth Perez MD [address] [place] [address] [place] [address] PCP - General 07/17/20 Gracia Petersen, LORI [address] [place] [address] Nurse Practitioner Internal Medicine 08/06/20 Yunior Solorzano MD [address] [place] [address] Consulting Physician Gastroenterology 07/18/22 Ross Baez DO [address] [address] Surgeon Cardiothoracic Surgery 07/18/22 Edith Aleman, HOGSHEAD HOOPER VAD Coordinator 10/14/24 documented as of this encounter
--- OUTSIDE RECORDS SUMMARY | 2025-01-08 15:13 | XMS_ITS | Encounter Summary ---
Author Organization [facility] Address [address] [place] [address] Care Team Providers Care Marketing Project Coordinator Name Role Phone Herberth Perez MD Primary Care Provider [phone] Gracia Petersen OCCUPATIONAL HEALTH NURSE Unavailable [phone] Yunior Solorzano MD Unavailable Ross Baez DO Unavailable [phone] Edith Aleman RN Unavailable Unavailable Encounter Details Date Type Department Care Team (Latest Contact Info) Description 12/20/2024 Travel Social History Tobacco Use Types Packs/Day [...] time in the past 12 m [facility], were you homeless or [...] drink first t janine in the morning (EYE-NIGHT SUPERVISOR) to steady your nerves or to [...] AM EST Appointment Cardiac Imaging [address] [place] [address] 01/28/2025 10:00 AM EST Ancillary Procedure [facility] [place] [address] [place] [address] documented as of this encounter Goals Goal Patient Goal Type Associated Problems Recent Progress Patient-Stated? Author LVAD Short Term Goal General On track( 11:53 AM EDT) Yes Katrin Oviedo, RN Note: - 07/04/23: Patient states he wants to attend a wedding in November in [place] LVAD Casing In Line Setter Goal General On track( 11:53 AM EDT) [...] documented as of this encounter Care Teams Marketing Project Coordinator Relationship Specialty Start Date End Date Herberth Perez MD [address] [place] [address] [place] [address] PCP - General 07/17/20 Gracia Petersen APRN [address] [place] [phone] Nurse Practitioner Internal Medicine 08/06/20 Yunior Solorzano MD [address] [place] [address] Consulting Physician Gastroenterology 07/18/22 Ross Baez, [address] [place] [phone] Surgeon Cardiothoracic Surgery 07/18/22 Edith Aleman, ELECTRICAL INSTALLATION SUPERVISOR VAD Coordinator 10/14/24 documented as of this encounter
--- OUTSIDE RECORDS SUMMARY | 2025-01-08 15:13 | XMS_ITS | Encounter Summary ---
Author Organization [employer] ([place], [place], [place], [place], [place]) Address [address] [place] [address] Care Team Providers Care Wind Turbine Service Technician Name Role Phone Unavailable Primary Care Provider Unavailabl e Encounter Details Date Type Department Care Team (Late st Contact Info) Description 03/29/2018 Transcribed Document [facility] [address] [place] [address] ProviderMg MD [facility] [place] [address] Social History Tobacco Use Types Packs/Day Years Used Date Smoking Tobacco: Never Assessed Sex and Gender Information Value Date Recorded Sex Assigned at Not on file Legal Sex Male 1:09 PM CDT Gender Identity Not on file Sexual Orientation Not on file documented as of this encounter Miscellaneous Notes * Cerner Conversion Note - Historical ProviderMD - 03/29/2018 10:29 AM ADJUNCT WRITING INSTRUCTOR Therapy Screen, OT Entered On: 03/29/2018 10:35 EST Performed On: 03/29/2018 10:29 EST by DEIRDRE CASTILLO OTR/Kaushal Therapy Screen, OT Medical Chart Reviewed : Yes Person Providing Information : Patient Screen Completed : Yes Recommendations for Evaluation OT : Do not recommend Occupational Therapy evaluation Therapy Screen Findings, OT : Patient at functional baseline Recommendations Upon Discharge : None Additional Therapy Screen Comment : Pt screened by OT/PT. Pt reported being at functional baseline. No skilled rehab therapy services indicated. DEIRDRE CASTILLO OTR/L - 03/29/2018 10:35 EST documented in this encounter Plan of Treatment Not on file documented as of this encounter Visit Diagnoses Not on filedocumented in this encounter
--- OUTSIDE RECORDS SUMMARY | 2025-01-08 15:13 | XMS_ITS | Encounter Summary ---
Author Organization [employer] ([place], [place], [place], [place], [place]) Address [address] [place] [address] Care Team Providers Care Airline Customer Service Agent Name Role Phone Unavailable Primary Care Provider Unavailabl e Encounter Details Date Type Department Care Team (Late st Contact Info) Description 03/29/2018 Transcribed Document [facility] [place] [facility] [place] [address] ProviderMg MD [facility] [place] [address] Social History Tobacco Use Types Packs/Day Years Used Date Smoking Tobacco: Never Assessed Sex and Gender Information Value Date Recorded Sex Assigned at Not on file Legal Sex Male 1:09 PM CDT Gender Identity Not on file Sexual Orientation Not on file documented as of this encounter Miscellaneous Notes * Cerner Conversion Note - Mg ProviderMD - 03/29/2018 1:39 PM GAME PROTECTOR [facility] [address], [place] [address] Patient Copy Patient Information: Name: JOSE PEARSON Current Date: 03/29/2018 13:39:19 : 1970 Patient Address: [address] [place] [phone] Patient Attending Physician: Primary Care Provider: HUMA YARBROUGH (REF)MD-INT Primary Care Provider Discharge Diagnosis: Atrial fibrillation; NICM (nonischemic cardiomyopathy) Weight on Admission: 236 lb, 8 oz Weight at Discharge: 237 lb, 4 oz Comment: Follow-up Instructions: With: Address: When: [place] [facility] [address] [place] [address] Business (1) Within 2 weeks Discharge Instructions: Diet after Discharge: Resume usual diet as tolerated Activity after Discharge: As tolerated, No strenuous activities, No heavy lifting over 10 pounds Driving after Discharge: Do not drive Showering/Bathing: No tub bathing, soaking, or swimming, Other: may shower tomorrow Wound/Incision Care after Discharge: Keep operative site/wound site clean and dry, Other: take dressing off in 24 hours Immunizations Documented During Stay: No Immunizations Found Heart Failure Discharge Instructions (if any): Daily Weight: Weigh yourself daily at the same time and record,Contact doctor if you gain 3 pounds overnight or 5 pounds in 1 week,Take weight log to doctor visits Heart Failure Activity: It is important to keep as active as you can and pace yourself with rest periods Smoking/Tobacco Use: Do not smoke, Smoking cessation phone number When to Call the Doctor: Increased weight of 3 pounds or more [...] belly, Dizziness, like you might pass out Stroke Related Discharge Instructions (if any): Warfarin Related Discharge Instructions (if any): Final Medication List: [facility] [place], [place] [id number], [phone] sotalol (sotalol 120 mg oral tablet) 1 Tablet(s) Oral Two Times A Day. Refills: 0. Other Medications albuterol (Proventil 0.5% inhalation solution) Nebulized Inhalation Every 6 Hours. albuterol (Proventil HFA 90 mcg/inh inhalation aerosol) Inhalation Four Times A Day as needed Shortness of Breath. albuterol (Ventolin HFA 90 mcg/inh inhalation aerosol) 2 Puff(s) Inhalation Four Times A Day. carvedilol 6.25 Milligram(s) Oral Two Times A Day. cetirizine (cetirizine 10 mg oral tablet) 1 Tablet(s) Oral Every Day. FLUoxetine (FLUoxetine 20 mg oral capsule) 1 Capsule(s) Oral At Bedtime. fluticasone nasal (fluticasone 50 mcg/inh nasal spray) 1 Whitharral(s) Nostrils Both Every Day. furosemide (Lasix 40 [...] mg oral tablet) 1 Tablet(s) Oral Every Evening. sacubitril-valsartan (Entresto 24 mg-26 mg oral tablet) [...] difficulty sleeping, and nervousness. Patient education materials: Cardiomyopathy, Adult Cardiomyopathy is a long-term (chronic) [...] Other treatments may include cardiac resynchronization therapy (TOP FRAME FITTER) or a left ventricular assist device (LVAD). [...] to manage stress. General instructions ??? Take jlre-hlw-fsxtzrj and prescription medicines only as told by [...] 05/05/2005 Document Revised: 10/18/2016 Document Reviewed: 08/22/2016 [employer] Interactive Patient Education ? 2017 [employer] Atrial Fibrillation Atrial fibrillation is a type [...] ??? Certain heart rhythm disorders, such as Fiug-Qczjzivbv-Ofday syndrome. Other causes include: ??? Pneumonia. ??? [...] 02/20/2006 Document Revised: 06/29/2016 Document Reviewed: 06/17/2015 [employer] Interactive Patient Education ? 2017 [employer] Medication Leaflets: sotalol (JS ta lol) Betapace, Sorine, Sotylize What is the most important information I should know about sotalol? You will receive your first few doses of sotalol in a hospital setting where your heart can be monitored in case the medicine causes serious side effects. You should not use sotalol if you have asthma, certain serious heart conditions, or a history of Long QT syndrome. What is sotalol? Sotalol is a beta-luciana that affects the heart and circulation (blood flow through arteries and veins). Sotalol is used to help keep the heart beating normally in people with certain heart rhythm disorders of the ventricles (the lower chambers of the heart that allow blood to flow out of the heart). Sotalol is used in people with ventricular tachycardia or ventricular fibrillation. Another form of this medicine, called sotalol AF, is used to treat heart rhythm disorders of the atrium (the upper chambers of the heart that allow blood to flow into the heart). Sotalol AF is used in people with atrial fibrillation or atrial flutter. Sotalol (Betapace, Sorine, Sotylize) is not used for the same conditions that sotalol AF (Betapace AF) is used for. Sotalol may also be used for purposes not listed in this medication guide. What should I discuss with my healthcare provider before taking sotalol? You should not use this medicine if you are allergic to sotalol, or if you have: ? a serious heart condition such as 'sick sinus syndrome' or 'AV block' (unless you have a pacemaker); ?? severe heart failure (that required you to be in the hospital); ?? asthma or other breathing disorder; ?? low levels of potassium in your blood; ?? severe kidney disease; ?? a personal or family history of Long QT syndrome; or ?? a history of slow heart beats that have caused you to faint. To make sure sotalol is safe for you, tell your doctor about your other medical conditions, especially: ? breathing problems such as bronchitis or emphysema; ?? a history of heart disease or congestive heart failure; ?? coronary artery disease (hardened arteries); ?? an electrolyte imbalance (such as low levels of potassium or magnesium in your blood); ?? diabetes; ?? kidney disease; ?? a thyroid disorder; ?? a history of allergies; or ?? if you have recently had a heart attack. Sotalol is not expected to harm an unborn baby. Tell your doctor if you are or plan to become during treatment. Sotalol can pass into breast milk and may harm a nursing baby. You should not breast-feed while you are using sotalol. How should I take sotalol? You will receive your first few doses of sotalol in a hospital setting where your heart can be monitored in case the medication causes serious side effects. Follow all directions on your prescription label. Do not take this medicine in larger or smaller amounts or for longer than recommended. Take sotalol at the same time every day. Do not skip doses or stop using sotalol without your doctor's advice. Stopping suddenly may make your condition worse. Follow your doctor's instructions about tapering your dose. Measure liquid medicine with the dosing syringe provided, or with a special dose-measuring spoon or medicine cup. If you do not have a dose-measuring device, ask your pharmacist for one. While using sotalol, you may need frequent blood tests. Your heart function may need to be checked using an electrocardiograph or ECG (sometimes called an EKG). You may have very low blood pressure while taking this medicine. Call your doctor if you are sick with vomiting or diarrhea, or if you are sweating more than usual. Prolonged illness can lead to a serious electrolyte imbalance, making it dangerous for you to use sotalol. If you need surgery or medical tests, tell the doctor ahead of time that you are using sotalol. You may need to stop using the medicine for a short time. Sotalol (Betapace, Sorine, Sotylize) and sotalol AF (Betapace AF) are not the same medicine. Always check your medicine when it is refilled to make sure you have received the correct brand and type as prescribed by your doctor. Ask the pharmacist if you have any questions about the medicine given to you at the pharmacy. If there are any changes in the brand or strength of sotalol you use, your dosage needs may change. Store at room temperature away from moisture and heat. What happens if I miss a dose? Take the missed dose as soon as you remember. Skip the missed dose if your next dose is less than 8 hours away. Do not take extra medicine to make up the missed dose. Use sotalol regularly to get the most benefit. Get your prescription refilled before you run out of medicine completely. What happens if I overdose? Seek emergency medical attention or call the Poison Help line at . What should I avoid while taking sotalol? Avoid taking an antacid within 2 hours before or 2 hours after you take sotalol. Some antacids can make it harder for your body to absorb sotalol. What are the possible side effects of sotalol? Get emergency medical help if you have any of these signs of an allergic reaction: hives; difficult breathing; swelling of your face, lips, tongue, or throat. Call your doctor at once if you have: ? headache with chest pain and severe dizziness, fainting, fast or pounding heartbeats; ?? slow heartbeats; ?? a light-headed feeling, like you might pass out; ?? trouble breathing; ?? severe diarrhea or vomiting, loss of appetite; ?? dry mouth, unusual sweating, increased thirst; or ?? swelling, rapid weight gain. Common side effects may include: ? headache; ?? dizziness; ?? tired feeling; or ?? slow heartbeats. This is not a complete list of side effects and others may occur. Call your doctor for medical advice about side effects. You may report side effects to FDA at 8-682-PSR-6647. What other drugs will affect sotalol? Many drugs can interact with sotalol. Not all possible interactions are listed here. Tell your doctor about all your medications and any you start or stop using during treatment with sotalol, especially: ? digoxin; ?? insulin or oral diabetes medicine; ?? blood pressure medication; or ?? any other medicine that contains sotalol. This list is not complete and many other drugs can interact with sotalol. This includes prescription and xryb-lbz-noptinb medicines, vitamins, and herbal products. Give a list of all your medicines to any healthcare provider who treats you. Where can I get more information? Your doctor or pharmacist can provide more information about sotalol. Remember, keep this and all other medicines out of the reach of children, never share your medicines with others, and use this medication only for the indication prescribed. Every effort has been made to ensure that the information provided by [employer]. ('[employer]') is accurate, up-to-date, and complete, but no guarantee is made to that effect. Drug information contained herein may be time sensitive. [employer] information has been compiled for use by healthcare practitioners and consumers in the [place] and therefore [employer] does not warrant that uses outside of the [place] are appropriate, unless specifically indicated otherwise. [employer] drug information does not endorse drugs, diagnose patients or recommend therapy. [employer] drug information is an informational resource designed [...] effective or appropriate for any given patient. [employer] does not assume any responsibility for any aspect of healthcare administered with the aid of information [employer] provides. The information contained herein is not intended to cover all possible uses, directions, precautions, warnings, drug interactions, allergic reactions, or adverse effects. If you have questions about the drugs you are taking, check with your doctor, nurse or pharmacist. Copyright 5187-3973 [employer] Version: .. Revision Date: 02/18/2014. CIGARETTE SMOKING: The facts are clear, cigarette smoking will shorten your life. Smoking can cause many illnesses along the way. As a healthcare provider, we recommend that you stop smoking. Assistance with quitting is available by contacting 0-633-CORU-NOW. This is a free resource providing counseling, support, and referral. Or you may contact your personal physician. [facility] is an EMERGENCY Every Minute Counts [...] Be sure to sign up for the [employer] patient portal, which gives you 26/09 access to your medical information ??? including these discharge instructions ??? using your computer, smartphone, or tablet. Just go to [employer] to get started. Questions? Call . [facility] would like to thank you for allowing us to assist you with your healthcare needs. ANASTASIA Rich DENNIS PAUL, (or sales representative church furniture) have received the above patient education materials/instructions and have verbalized understanding: Patient Signature _ Date/Time Patient Recycling Specialist Signature (if needed) Date/Time Clinician/Hospital Recycling Specialist Signature (if needed) Date/Time Electronically signed by Jackie, [facility] Conversion Technology Assistant Cerner at 06/19/2022 11:11 PM CDT documented in this encounter Plan of Treatment Not on file documented as of this encounter Visit Diagnoses Not on filedocumented in this encounter
--- OUTSIDE RECORDS SUMMARY | 2025-01-08 15:13 | XMS_ITS | Encounter Summary ---
Author Organization [facility] Address [address] [place] [address] Care Team Providers Care Pre Owned Sales Manager Name Role Phone Herberth Perez MD Primary Care Provider [phone] Gracia Petersen NARROW FABRICS WEAVER Unavailable [phone] Yunior Solorzano MD Unavailable [phone] Ross Baez DO Unavailable [phone] Edith Aleman RN Unavailable Unavailable Encounter Details Date Type Department Care Team (Latest Contact Info) Description 11/19/2024 Anticoagulation - Warfarin Visit [facility] [place] Lloyd [address] [facility] 1st Floor [address] [place] [phone] Edith Aleman, EMAIL MARKETER LVAD (left ventricular assist device) present ([facility]) (Primary Dx); Anticoagulant long-term use [...] place to sleep or slept in a jail (including now)? No 12/19/2023 PHQ-9 Answer Date [...] any time in the past 12 m [facility], were you homeless or living in a jail (including now)? No 04/08/2024 CAGE ASSESSMENT Answer [...] drink first t janine in the morning (EYE-EYEGLASS FRAMES POLISHER) to steady your nerves or to get rid of a hangover? 0 09/19/2021 CAGE Questionnaire Score 0 022 Utilities Answer Date Recorded In the past 12 months has e [employer], gas, oil, or water [employer] threatened to shut off services in your [...] AM EST Appointment Cardiac Imaging [address] [place] [address] 01/28/2025 10:00 AM EST Ancillary Procedure [facility] [place] Lloyd [address] [place] [address] documented as of this encounter Goals Goal Patient Goal Type Associated Problems Recent Progress Patient-Stated? Author LVAD Short Term Goal General On track( 11:53 AM EDT) Yes Katrin Oviedo, RN Note: - 07/04/23: Patient states he wants to attend a wedding in November in [place] LVAD Penitentiary Goal General On track( 11:53 AM EDT) Yes Katrin Oviedo, RN Note: - 07/04/23: Patient states he wants to meet his grandchild when they are born in November documented as of this encounter Procedures Procedure Name Priority Date/Time Associated Diagnosis Comments EXTERNAL PROTHROMBIN TIME (PT)/INR Routine 11/18/2024 documented in this encounter Results * External Prothrombin Time (PT)/INR (11/18/2024) External INR - Internormal Ratio 2 External Prothrombin Time (PT) Blood Venous blood specimen / Unknown 11/18/2024 [facility] Provider POINT OF CARE TEST ENTER/SHERIF T ORDERABLES Final Result documented in this encounter Visit Diagnoses Diagnosis LVAD (left ventricular assist device) present ([facility])- Primary Anticoagulant long-term use Encounter [...] plan has been documented for the patient 11/19/2024 9:01 AM EDT documented as of this encounter Care Teams Pre Owned Sales Manager Relationship Specialty Start Date End Date Herberth Perez MD [address] [place] [address] [place] [address] PCP - General 07/17/20 Gracia Petersen APRN [address] [place] [address] Nurse Practitioner Internal Medicine 08/06/20 Yunior Solorzano MD [address] [place] [address] Consulting Physician Gastroenterology 07/18/22 Ross Baez DO [address] [address] Surgeon Cardiothoracic Surgery 07/18/22 Edith Aleman, EMAIL MARKETER VAD Coordinator 10/14/24 documented as of this encounter
--- OUTSIDE RECORDS SUMMARY | 2025-01-08 15:13 | XMS_ITS | Encounter Summary ---
Author Organization [facility] Address [address] [place] [address] Care Team Providers Care Sustainable Landscape Architect Name Role Phone Herberth Perez MD Primary Care Provider [phone] Gracia Petersen WASTEWATER TREATMENT PLANT OPERATOR Unavailable [phone] Yunior Solorzano MD Unavailable [phone] Ross Baez DO Unavailable [phone] Edith Aleman RN Unavailable Unavailable Encounter Details Date Type Department Care Team (Late st Contact Info) Description 01/08/2025 [facility] [place] Lloyd [address] [place] [address] Edith Aleman, FOUNTAIN MANAGER Social History Tobacco Use Types Packs/Day Years [...] place to sleep or slept in a long-term (including now)? No 12/19/2023 PHQ-9 Answer Date [...] in the past 12 m [facility], were you homeless or living in a long-term (including now)? No 04/08/2024 CAGE ASSESSMENT Answer [...] drink first t janine in the morning (EYE-PACKAGE WINDER) to steady your nerves or to get [...] AM EST Appointment Cardiac Imaging [address] [place] [address] 01/28/2025 10:00 AM EST Ancillary Procedure [facility] [place] Lloyd [address] [place] [address] documented as of this encounter Goals Goal Patient Goal Type Associated Problems Recent Progress Patient-Stated? Author LVAD Short Term Goal General On track( 024 11:53 AM EDT) Yes Katrin Oviedo RN Note: - 07/04/23: Patient states he wants to attend a wedding in November in [place] LVAD Retirement Goal General On track( 024 11:53 AM [...] documented as of this encounter Care Teams Sustainable Landscape Architect Relationship Specialty Start Date End Date Herberth Perez MD [address] [place] [address] [place] [address] PCP - General 07/17/20 Gracia Petersen APRN [address] [place] [address] Nurse Practitioner Internal Medicine 08/06/20 Yunior Solorzano MD [address] [place] [address] Consulting Physician Gastroenterology 07/18/22 Ross Baez, [address] [phone] Surgeon Cardiothoracic Surgery 07/18/22 Edith Aleman, FOUNTAIN MANAGER VAD Coordinator 10/14/24 documented as of this encounter
--- OUTSIDE RECORDS SUMMARY | 2025-01-08 15:13 | XMS_ITS | Encounter Summary ---
Author Organization [facility] Address [address] [place] [address] Care Team Providers Care Assembly Member Name Role Phone Herberth Perez MD Primary Care Provider [phone] Gracia Petersen CONSULTING MARINE ENGINEER Unavailable [phone] Yunior Solorzano MD Unavailable [phone] Ross Baez DO Unavailable [phone] Edith Aleman RN Unavailable Unavailable Encounter Details Date Type Department Care Team (Late st Contact Info) Description 12/18/2024 Orders Only [facility] [place] Lloyd [address] 1st [address] [place] [phone] Edith Aleman, CODE OFFICIAL Cerebrovascular accident (CVA) due to embolism of [...] any time in the past 12 m [facility], were you homeless or living [...] drink first t janine in the morning (EYE-DIRECTOR CORPORATE SALES) to steady your nerves or to get rid of a hangover? 0 09/19/2021 CAGE Questionnaire Score 0 022 Utilities Answer Date Recorded In the past 12 months has th e [employer], gas, oil, or water company threatened to [...] AM EST Appointment Cardiac Imaging [address] [place] [address] 01/28/2025 10:00 AM EST Ancillary Procedure [facility] [place] Lloyd [address] [place] [address] documented as of this encounter Goals Goal Patient Goal Type Associated Problems Recent Progress Patient-Stated? Author LVAD Short Term Goal General On track( 11:53 AM EDT) Yes Katrin Oviedo, MARYCARMEN Note: - 07/04/23: Patient states he wants to attend a wedding in November in [place] LVAD Long-Term Goal General On track( 11:53 AM EDT) [...] documented as of this encounter Care Teams Assembly Member Relationship Specialty Start Date End Date Herberth Perez MD [address] [place] [address] [place] [address] PCP - General 07/17/20 Gracia Petersen APRN [address] [place] [address] Nurse Practitioner Internal Medicine 08/06/20 Yunior Solorzano MD [address] [facility] [address] [place] [address] Consulting Physician Gastroenterology 07/18/22 Ross Baez DO [address] [phone] Surgeon Cardiothoracic Surgery 07/18/22 Edith Aleman, CODE OFFICIAL VAD Coordinator 10/14/24 documented as of this encounter
--- OUTSIDE RECORDS SUMMARY | 2025-01-08 15:13 | XMS_ITS | Encounter Summary ---
Author Organization [employer] ([place], [place], [place], [place], [place]) Address [address] [place] [address] Care Team Providers Care Immigration Judge Name Role Phone Unavailable Primary Care Provider Unavailabl e Encounter Details Date Type Department Care Team (Late st Contact Info) Description 04/14/2018 Transcribed Document [facility] [place] [facility] [place] [address] ProviderMg MD [facility] [place] [address] Social History Tobacco Use Types Packs/Day Years Used Date Smoking Tobacco: Never Assessed Sex and Gender Information Value Date Recorded Sex Assigned at Not on file Legal Sex Male 1:09 PM CDT Gender Identity Not on file Sexual Orientation Not on file documented as of this encounter Miscellaneous Notes * [employer]ner Conversion Note - Historical ProviderMD - 04/14/2018 9:18 PM CONSIGNEE Nutrition Assessment Entered On: 04/16/2018 12:01 EST Performed On: 04/16/2018 16:29 EST by MACKENZIE PERDOMO, LUCITA, LD Nutrition Assessment Nutrition Assessment Reason 2 : Malnutrition Screening Tool Current Nutrition Regimen Comment : (04/16) LUCITA rec'd routine consult and consult for reported wt loss of 2-13# with decrease in appetite (MST=2). Pt admitted due to syncope/V fib arrest. Spoke with pt and pt . Reports pt UBW is 242# and that pt has lost wt over the past 2wks along with a decrease in appetite (14# x 2 wks -5.8%-significant). Pt reported he was just diagnosed with hyperthyroidism. Did observe moderate subcutaneous fat wasting to orbitals. Pt denied oral supplements. Encouraged pt to make sure he is getting enough protein to perserve lean muscle mass during a time of acute wt loss. Pt verbalized understanding. Dx: syncope/V fib arrest, acute on chronit left heart failure, hyperthyroidism PMH: angina, pacemaker, GERD, CVA, HTN, HLD, [place] Labs: Na 135, Alb 3.3 Meds: colace, lasix, statin Skin: wnls GI: LBM 04/15, active BS Diet: cardiac Eatin% x 1 meal recorded Ht: 72 Wt: 228# Wt Hx: 236# (03/28/18), 231# (03/23/17) UBW: 242# BMI: 30.9 IBW/%IBW: 178#/128% MACKENZIE PERDOMO RD, LD - 04/16/2018 16:12 EST Nutrition Assessment Reason : Consult, Automatic referral MACKENZIE PERDOMO RD, LD - 04/16/2018 11:59 EST Dietitian Malnutrition Assessment Energy Intake, Acute Injury/Illness : Severely reduced: </=50% needs for >/=5days Energy Intake, Comment : pt reported no appetite x 2 wks Weight Loss, Acute Injury/Illness : Severe: >2% past 1 week Weight Loss, Comment : wt loss of 14# x 2 wks per pt and pt (5.8%-significant) Physical Findings Body Fat & Muscle Mass : Moderate: (suggested) some loss of subcutaneous fat &/or muscle mass Physical Findings, Comment : subcutaneous fat loss to orbitals Malnutrition Etiology Summary : Acute injury/illness severe Nutrition Assessment Completed : Yes MACKENZIE PERDOMO RD, LD - 04/16/2018 16:12 EST Nutrition Diagnoses Nutrient Intake : Acute disease or injury related malnutrition Nutrient Intake Related to : hyperthyroidism Nutrient Intake As Evidenced by : wt loss of 14# x 2 wks (5.8%) per pt, po intake <50% >/=5 days, moderate subcutaneous fat loss to orbitals Nutrient Intake Status : Active MACKENZIE PERDOMO RD, LD - 04/16/2018 16:12 EST Nutrition Interventions Meals and Snacks : Fat-modified diet, Cholesterol-modified diet, Sodium modified diet MACKENZIE PERDOMO RD, LD - 04/16/2018 16:12 EST Monitoring/Evaluation Energy Intake : Total energy intake Food Intake : Amount of food Protein Intake : Total protein MACKENZIE PERDOMO RD, LD - 04/16/2018 16:12 EST Nutrition Recommendations Dietitian Recommendations : 1. Continue current diet regimen and encourage po intake. LUCITA will continue to monitor for pt to agree to oral supplements. goal: po intake >50% from meals 2. Monitor wt 2x/wk goal: no significant involuntary changes in wt Nutritional Risks; moderate, f/up 1-2x/wk Moderate PCM identified 04/[address], LD - 04/16/2018 16:12 EST Electronically signed by Jackie [facility] Conversion Pipeline Gang Supervisor Cerner at 06/19/2022 10:49 PM CDT documented in this encounter Plan of Treatment Not on file documented as of this encounter Visit Diagnoses Not on filedocumented in this encounter
--- OUTSIDE RECORDS SUMMARY | 2025-01-08 15:13 | XMS_ITS | Encounter Summary ---
Author Organization [employer] ([place], [place], [place], [place], [place]) Address [address] [place] [address] Care Team Providers Care Beveling And Edging Machine Operator Name Role Phone Unavailable Primary Care Provider Unavailabl e Encounter Details Date Type Department Care Team (Late st Contact Info) Description 03/29/2018 Transcribed Document [facility] [facility] [place] [address] ProviderMg MD [facility] [place] [address] Social History Tobacco Use Types Packs/Day Years Used Date Smoking Tobacco: Never Assessed Sex and Gender Information Value Date Recorded Sex Assigned at Not on file Legal Sex Male 1:09 PM CDT Gender Identity Not on file Sexual Orientation Not on file documented as of this encounter Miscellaneous Notes * Cerner Conversion Note - Historical ProviderMD - 03/29/2018 10:[address] [facility] OT Charges Entered On: 03/29/2018 10:35 EST Performed On: 03/29/2018 10:29 EST by DEIRDRE CASTILLO OTR/Kaushal Hager OT Charges Screen For Business Services Analyst : 1 DEIRDRE CASTILLO OTR/Kaushal - 03/29/2018 10:35 EST documented in this encounter Plan of Treatment Not on file documented as of this encounter Visit Diagnoses Not on filedocumented in this encounter
--- OUTSIDE RECORDS SUMMARY | 2025-01-08 15:13 | XMS_ITS | Encounter Summary ---
Author Organization [employer] ([place], [place], [place], [place], [place]) Address [address] [place] [address] Care Team Providers Care Agriculture Intern Name Role Phone Unavailable Primary Care Provider Unavailabl e Encounter Details Date Type Department Care Team (Late st Contact Info) Description 03/29/2018 Transcribed Document [facility] [place] [facility] [place] [address] ProviderMg MD [facility] [place] [address] Social History Tobacco Use Types Packs/Day Years Used Date Smoking Tobacco: Never Assessed Sex and Gender Information Value Date Recorded Sex Assigned at Not on file Legal Sex Male 1:09 PM CDT Gender Identity Not on file Sexual Orientation Not on file documented as of this encounter Miscellaneous Notes * Cerner Conversion Note - Mg ProviderMD - 03/29/2018 1:21 PM GARAGE DOOR TECHNICIAN [facility] [address], [place] [address] Patient Copy Patient Information: Name: JOSE PEARSON Current Date: 03/29/2018 13:21:46 : 1970 Patient Address: [address] [place] [phone] Patient Attending Physician: Primary Care Provider: HUMA YARBROUGH (REF)MD-INT Primary Care Provider Discharge Diagnosis: Atrial fibrillation; NICM (nonischemic cardiomyopathy) Weight on Admission: 236 lb, 8 oz Weight at Discharge: 237 lb, 4 oz Comment: Follow-up Instructions: With: Address: When: [place] [address] [place] [address] Business (1) Within 2 weeks [...] Discharge Instructions (if any): Final Medication List: [facility], [address] [place] [phone], [phone] sotalol (sotalol 120 mg oral tablet) 1 [...] nasal (fluticasone 50 mcg/inh nasal spray) 1 [place](s) Nostrils Both Every Day. furosemide (Lasix 40 [...] Other treatments may include cardiac resynchronization therapy (BIOFUELS PRODUCT MANAGER) or a left ventricular assist device (LVAD). [...] to manage stress. General instructions ??? Take wxyw-rxx-wcjpnhn and prescription medicines only as told by [...] 05/05/2005 Document Revised: 10/18/2016 Document Reviewed: 08/22/2016 ElseCloud.CM Interactive Patient Education ? 2017 [employer] Atrial Fibrillation Atrial fibrillation is a [...] ??? Certain heart rhythm disorders, such as Wfkk-Uvyumenyl-Taeto syndrome. Other causes include: ??? Pneumonia. ??? [...] 02/20/2006 Document Revised: 06/29/2016 Document Reviewed: 06/17/2015 [employer] Interactive Patient Education ? 2017 [employer] Medication Leaflets: sotalol (JS ta lol) [...] may report side effects to FDA at 3-981-LSZ-0521. What other drugs will affect sotalol? Many [...] interact with sotalol. This includes prescription and qayg-xaw-amqixfp medicines, vitamins, and herbal products. Give a [...] to ensure that the information provided by [employer]. ('PenBlad[employer]um') is accurate, up-to-date, and complete, but no guarantee is made to that effect. Drug information contained herein may be time sensitive. [employer] information has been compiled for use by healthcare practitioners and consumers in the [place] and therefore [employer] does not warrant that uses outside of the [place] are appropriate, unless specifically indicated otherwise. [employer] drug information does not endorse drugs, diagnose patients or recommend therapy. [employer] drug information is an informational resource designed [...] effective or appropriate for any given patient. [employer] does not assume any responsibility for any aspect of healthcare administered with the aid of information [employer] provides. The information contained herein is not intended to cover all possible uses, directions, precautions, warnings, drug interactions, allergic reactions, or adverse effects. If you have questions about the drugs you are taking, check with your doctor, nurse or pharmacist. Copyright 3410-1345 [employer]. Version: .. Revision Date: 02/18/2014. CIGARETTE SMOKING: The facts are clear, cigarette smoking will shorten your life. Smoking can cause many illnesses along the way. As a healthcare provider, we recommend that you stop smoking. Assistance with quitting is available by contacting 6-772-GSBR-NOW. This is a free resource providing counseling, [...] Be sure to sign up for the SmartwareToday.com patient portal, which gives you 26/09 access to your medical information ??? including these discharge instructions ??? using your computer, smartphone, or tablet. Just go to [employer] to get started. Questions? Call . [facility] would like to thank you for allowing us to assist you with your healthcare needs. ANASTASIA Rich DENNIS PAUL, (or customer contact representative) have received the above patient education materials/instructions and have verbalized understanding: Patient Signature _ Date/Time Patient Senior Windows Administrator Signature (if needed) Date/Time Clinician/Hospital Senior Windows Administrator Signature (if needed) Date/Time Electronically signed by Jackie, [facility] Conversion Auto Garage Mechanic Cerner at 06/19/2022 11:05 PM CDT documented in this encounter Plan of Treatment Not on file documented as of this encounter Visit Diagnoses Not on filedocumented in this encounter
--- OUTSIDE RECORDS SUMMARY | 2025-01-08 15:13 | XMS_ITS | Encounter Summary ---
Author Organization [facility] Address [address] [place] [id number] Care Team Providers Care Cryptographic Center Specialist Name Role Phone Herberth Perez MD Primary Care Provider [phone] Gracia Petersen THIOKOL OPERATOR Unavailable [phone] Yunior Solorzano MD Unavailable [phone] Ross Baez DO Unavailable [phone] Edith Aleman RN Unavailable Unavailable Encounter Details Date Type Department Care Team (Latest Contact Info) Description 12/01/2024 Anticoagulation - Warfarin Visit [facility] [place] [address] [place] [address] Martine Taylor, RN [facility] [address] [place] [phone] LVAD (left ventricular assist device) present ([facility]) (Primary Dx); Anticoagulant long-term use [...] any time in the past 12 m [facility], were you homeless or living [...] drink first t janine in the morning (EYE-MIDDLE SCHOOL PE TEACHER) to steady your nerves or to [...] AM EST Appointment Cardiac Imaging [address] [place] [address] 01/28/2025 10:00 AM EST Ancillary Procedure [facility] [place] Lloyd [address] [place] [address] documented as of this encounter Goals Goal Patient Goal Type Associated Problems Recent Progress Patient-Stated? Author LVAD Short Term Goal General On track( 11:53 AM EDT) Yes Katrin Oviedo, RN Note: - 07/04/23: Patient states he wants to attend a wedding in November in [place] LVAD Professor Criminal Justice Goal General On track( 11:53 AM EDT) Yes Katrin Oviedo, RN Note: - 07/04/23: Patient states he wants to meet his grandchild when they are born in November documented as of this encounter Procedures Procedure Name Priority Date/Time Associated Diagnosis Comments EXTERNAL PROTHROMBIN TIME (PT)/INR Routine 12/01/2024 documented in this encounter Results * External Prothrombin Time (PT)/INR (12/01/2024) External INR - Internormal Ratio 1.7 External Prothrombin Time (PT) Blood Venous blood specimen / Unknown [facility] Provider POINT OF CARE TEST ENTER/SHERIF T ORDERABLES Final Result documented in this encounter Visit Diagnoses Diagnosis LVAD (left ventricular assist device) present ([facility])- Primary Anticoagulant long-term use Encounter [...] plan has been documented for the patient 12/01/2024 7:15 PM EDT documented as of this encounter Care Teams Cryptographic Center Specialist Relationship Specialty Start Date End Date Herberth Perez MD [address] [place] [address] [place] [address] PCP - General 07/17/20 Gracia Petersen, THIOKOL OPERATOR [address] [place] [address] Nurse Practitioner Internal Medicine 08/06/20 Yunior Solorzano MD [address] [place] [address] Consulting Physician Gastroenterology 07/18/22 Ross Baez DO [address] [place] [address] Surgeon Cardiothoracic Surgery 07/18/22 Edith Aleman, FERTILIZER APPLICATOR VAD Coordinator 10/14/24 documented as of this encounter
--- OUTSIDE RECORDS SUMMARY | 2025-01-08 15:13 | XMS_ITS | Encounter Summary ---
Author Organization [employer] ([place], [place], [place], [place], [place]) Address [address] [place] [address] Care Team Providers Care Staker Surveying Name Role Phone Unavailable Primary Care Provider Unavailabl e Encounter Details Date Type Department Care Team (Late st Contact Info) Description 03/29/2018 Transcribed Document [facility] [place] [facility] [place] [address] ProviderMg MD [facility] [place], [place] [address] Social History Tobacco Use Types Packs/Day Years Used Date Smoking Tobacco: Never Assessed Sex and Gender Information Value Date Recorded Sex Assigned at Not on file Legal Sex Male 1:09 PM CDT Gender Identity Not on file Sexual Orientation Not on file documented as of this encounter Miscellaneous Notes * Cerner Conversion Note - Mg ProviderMD - 03/29/2018 10:57 AM GERMAN PROFESSOR Patient: JOSE PEARSON Age: 47 years Sex: Male : 1970 Associated Diagnoses: None Author: BRENDON OTT APRN ICD interrogation on 03/28/18 revealed A. fib RVR with a rate of 220 and ATP failed therefore patient was cardioverted to sinus rhythm. We have increased his sotalol to 120 twice a day from the office we had decreased his Coreg to 6.25 twice a day due to hypotension. He would've blood pressure log and follow back up in the office in 2 weeks. Patient underwent right heart catheterization today and per Dr. Hobbs and feels that the patient's shortness of breath is likely related to his atrial fibrillation which correlates to his current symptomology and timing of the A. fib. Electronically signed by Jackie [facility] Conversion Fashion Intern Cerner at 06/19/2022 11:01 PM CDT documented in this encounter Plan of Treatment Not on file documented as of this encounter Visit Diagnoses Not on filedocumented in this encounter
--- OUTSIDE RECORDS SUMMARY | 2025-01-08 15:13 | XMS_ITS | Encounter Summary ---
Author Organization [employer] ([place], [place], [place], [place], [place]) Address [address] [place] [address] Care Team Providers Care Project Management Professional Name Role Phone Unavailable Primary Care Provider Unavailrodrick e Encounter Details Date Type Department Care Team (Late st Contact Info) Description 03/29/2018 Transcribed Document [facility] [place] [facility] [place] [address] ProviderMg MD [facility] [place] [address] Social History Tobacco Use Types Packs/Day Years Used Date Smoking Tobacco: Never Assessed Sex and Gender Information Value Date Recorded Sex Assigned at Not on file Legal Sex Male 1:09 PM CDT Gender Identity Not on file Sexual Orientation Not on file documented as of this encounter Miscellaneous Notes * Cerner Conversion Note - Mg ProviderMD - 03/29/2018 1:18 PM MAIL CLERK Nursing Discharge Summary Entered On: 03/29/2018 13:19 EST Performed On: 03/29/2018 13:18 EST by BRIAN BEASLEY RN Discharge Documentation Discharge Date/Time : 03/29/2018 13:35 EST BRIAN BEASLEY RN - 03/29/2018 13:38 EST Patient Disposition, General : Discharge Discharge To : Home with ambulatory/outpatient follow-up Mode Of Departure, General Discharge : Private vehicle, Wheelchair Accompanied By, Discharge : Spouse IV Discontinued : Yes Medications Given to Patient : No Personal Belongings With Patient : Yes Pt's Own Supply of Medications Returned : No Prescriptions Given to Patient : Yes Discharge Instructions Reviewed With, Opportunity For Questions Given : Patient, Spouse Patient Education Completed : Yes Number of Prescriptions Given : 1 Teaching Method : Printed materials Teaching Evaluation : Verbalizes understanding BRIAN BEASLEY RN - 03/29/2018 13:18 EST documented in this encounter Plan of Treatment Not on file documented as of this encounter Visit Diagnoses Not on filedocumented in this encounter
--- OUTSIDE RECORDS SUMMARY | 2025-01-08 15:13 | XMS_ITS | Encounter Summary ---
Author Organization [employer] ([place], [place], [place], [place], [place]) Address [address] [place] [address] Care Team Providers Care Bead Forming Machine Operator Name Role Phone Unavailable Primary Care Provider Unavailabl e Encounter Details Date Type Department Care Team (Late st Contact Info) Description 04/20/2018 Transcribed Document [facility] [place] [facility] [place] [address] ProviderMg MD [facility] [place] [address] Social History Tobacco Use Types Packs/Day Years Used Date Smoking Tobacco: Never Assessed Sex and Gender Information Value Date Recorded Sex Assigned at Not on file Legal Sex Male 1:09 PM CDT Gender Identity Not on file Sexual Orientation Not on file documented as of this encounter Miscellaneous Notes * Cerner Conversion Note - Mg ProviderMD - 04/20/2018 10:33 AM REGISTERED RESPIRATORY THERAPIST Patient: JOSE PEARSON Age: 47 years Sex: Male : 1970 Associated Diagnoses: None Author: BRENDON OTT APRN Subjective no cp or soa. Objective VS/Measurements Vital Measurements 04/20/2018 5:55 EST Temperature, Fahrenheit 97.8 Deg F Clinical Temperature, C 36.6 Deg C Heart Rate Monitored 77 bpm Respiratory Rate 18 Breaths/Min Systolic Blood Pressure 93 mmHg Diastolic Blood Pressure 56 mmHg LOW Mean Arterial Pressure (MAP)-BMDI 66 Oxygen Saturation 94 % General: Alert and oriented. Neck: No carotid bruit, No jugular venous distention. Respiratory: Lungs are clear to auscultation, Respirations are non-labored, Breath sounds are equal, Symmetrical chest wall expansion. Cardiovascular: Normal rate, Regular rhythm, No murmur, No gallop, Good pulses equal in all extremities, Normal peripheral perfusion, No edema, paced . Gastrointestinal: Normal bowel sounds. Integumentary: Warm, Dry, [place]. Results Review General results HYROID ULTRASOUND HISTORY: [...] = 2-3 - Cont Coreg, Entresto, Aldactone PAF - dccv to sr 04/17 - [...] and asymptomatic Etoh abuse -discussed cessation Plan: C home CV stable Continue Coreg and Entresto Aldactone and tikosyn monday appt endocrine for hyperthyroid documented in this encounter Plan of Treatment Not on file documented as of this encounter Visit Diagnoses Not on filedocumented in this encounter
--- OUTSIDE RECORDS SUMMARY | 2025-01-08 15:13 | XMS_ITS | Encounter Summary ---
Author Organization [employer] ([place], [place], [place], [place], [place]) Address [address] [place] [address] Care Team Providers Care Public Health Staff Nurse Name Role Phone Unavailable Primary Care Provider Unavailabl e Encounter Details Date Type Department Care Team (Late st Contact Info) Description 04/20/2018 Transcribed Document [facility] [place] [facility] [place] [address] ProviderMg MD [facility] [place], [place] [id number] Social History Tobacco Use Types Packs/Day Years Used Date Smoking Tobacco: Never Assessed Sex and Gender Information Value Date Recorded Sex Assigned at Not on file Legal Sex Male 1:09 PM CDT Gender Identity Not on file Sexual Orientation Not on file documented as of this encounter Miscellaneous Notes * Cerner Conversion Note - Historical ProviderMD - 04/20/2018 5:00 AM LEGAL ADMINISTRATIVE SECRETARY Height and Weight, Routine Entered On: 04/20/2018 6:00 EST Performed On: 04/20/2018 5:00 EST by Polly Renteria [facility] Unit Coord Height and Weight, Routine Routine Weight Source : Standing scale Routine Weight Entry Format : [place] Routine Weight, Pounds : 229 lb Routine Weight, Ounces : 7 oz Routine Weight Calculation : 104.29 kg Height Source : Stated Height Entry Format : [place] Height, Feet : 6 ft Height, Inches : 0 Inch Clinical Height : 182.88 cm Body Surface Area (BSA), Routine : 2.26 m2 Body Mass Index (BMI), Routine : 31.18 kg/m2 [facility] - 04/20/2018 6:00 EST documented in this encounter Plan of Treatment Not on file documented as of this encounter Visit Diagnoses Not on filedocumented in this encounter
--- OUTSIDE RECORDS SUMMARY | 2025-01-08 15:13 | XMS_ITS | Encounter Summary ---
Author Organization [employer] ([place], [place], [place], [place], [place]) Address [address] [place] [address] Care Team Providers Care Contact Center Assistant Name Role Phone Unavailable Primary Care Provider Unavailabl e Encounter Details Date Type Department Care Team (Late st Contact Info) Description 03/29/2018 Transcribed Document [facility] [place] [facility] [place] [address] ProviderMg MD [facility] [place] [address] Social History Tobacco Use Types Packs/Day Years Used Date Smoking Tobacco: Never Assessed Sex and Gender Information Value Date Recorded Sex Assigned at Not on file Legal Sex Male 1:09 PM CDT Gender Identity Not on file Sexual Orientation Not on file documented as of this encounter Miscellaneous Notes * Cerner Conversion Note - Mg ProviderMD - 03/29/2018 1:22 PM ANIMAL SERVICES OFFICER [facility] [address], [place] [address] Patient Copy Patient Information: Name: JOSE PEARSON Current Date: 03/29/2018 13:22:49 : 1970 Patient [address]: [address] [place] [id number] Patient Attending Physician: Primary Care Provider: HUMA YARBROUGH (REF)MD-INT Primary Care Provider Discharge Diagnosis: Atrial fibrillation; NICM (nonischemic cardiomyopathy) Weight on Admission: 236 lb, 8 oz Weight at Discharge: 237 lb, 4 oz Comment: Follow-up Instructions: With: Address: When: [place] [address] [place] [address] Business (1) Within 2 weeks [...] Discharge Instructions (if any): Final Medication List: [facility], [address] [place], [place] [id number], [phone] sotalol (sotalol 120 mg oral tablet) 1 [...] nasal (fluticasone 50 mcg/inh nasal spray) 1 [place](s) Nostrils Both Every Day. furosemide (Lasix 40 [...] Other treatments may include cardiac resynchronization therapy (DEHYDRATOR TENDER) or a left ventricular assist device (LVAD). [...] to manage stress. General instructions ??? Take eeqt-rsz-boeihgg and prescription medicines only as told by [...] 05/05/2005 Document Revised: 10/18/2016 Document Reviewed: 08/22/2016 [employer] Interactive Patient Education ? 2017 [employer] Atrial Fibrillation Atrial fibrillation is a [...] ??? Certain heart rhythm disorders, such as Mqzj-Puohyudvg-Arvwe syndrome. Other causes include: ??? Pneumonia. ??? [...] 02/20/2006 Document Revised: 06/29/2016 Document Reviewed: 06/17/2015 [employer] Interactive Patient Education ? 2017 [employer] Medication Leaflets: sotalol (JS ta lol) [...] may report side effects to FDA at 8-881-EIF-6070. What other drugs will affect sotalol? Many [...] interact with sotalol. This includes prescription and kndx-vcv-pwdjolq medicines, vitamins, and herbal products. Give a [...] to ensure that the information provided by [employer]. ('[employer]') is accurate, up-to-date, and complete, but no guarantee is made to that effect. Drug information contained herein may be time sensitive. [employer] information has been compiled for use by healthcare practitioners and consumers in the [place] and therefore [employer] does not warrant that uses outside of the [place] are appropriate, unless specifically indicated otherwise. [employer] drug information does not endorse drugs, diagnose patients or recommend therapy. [employer] drug information is an informational resource designed [...] effective or appropriate for any given patient. [employer] does not assume any responsibility for any aspect of healthcare administered with the aid of information [employer] provides. The information contained herein is not intended to cover all possible uses, directions, precautions, warnings, drug interactions, allergic reactions, or adverse effects. If you have questions about the drugs you are taking, check with your doctor, nurse or pharmacist. Copyright 2101-1366 [employer]. Version: .. Revision Date: 02/18/2014. CIGARETTE SMOKING: The facts are clear, cigarette smoking will shorten your life. Smoking can cause many illnesses along the way. As a healthcare provider, we recommend that you stop smoking. Assistance with quitting is available by contacting 1-858-HXRB-NOW. This is a free resource providing counseling, [...] Be sure to sign up for the [employer] patient portal, which gives you 26/09 access to your medical information ??? including these discharge instructions ??? using your computer, smartphone, or tablet. Just go to [employer] to get started. Questions? Call . [facility] would like to thank you for allowing us to assist you with your healthcare needs. ANASTASIA Rich DENNIS PAUL, (or agency service representative) have received the above patient education materials/instructions and have verbalized understanding: Patient Signature _ Date/Time Patient Sewing Machines Salesperson Signature (if needed) Date/Time Clinician/Hospital Sewing Machines Salesperson Signature (if needed) Date/Time Electronically signed by Jackie, [facility] Conversion Residential Recycle Driver Cerner at 06/19/2022 11:12 PM CDT documented in this encounter Plan of Treatment Not on file documented as of this encounter Visit Diagnoses Not on filedocumented in this encounter
--- OUTSIDE RECORDS SUMMARY | 2025-01-08 15:13 | XMS_ITS | Encounter Summary ---
Author Organization [facility] Address [address] [place] [address] Care Team Providers Care Front Line Leader Name Role Phone Herberth Perez MD Primary Care Provider [phone] Gracia Petersen DEALERSHIP GENERAL MANAGER Unavailable [phone] Yunior [place] MD Unavailable [phone] Ross Baez DO Unavailable [phone] Edith Aleman RN Unavailable Unavailable Reason for Visit * Reason Onset Date Comments Patient Aids requesting office notes 12/30/2024 Encounter Details Date Type Department Care Team (Late st Contact Info) Description 12/30/2024 Telephone [facility] [address] [place] [address] Melisa Vazquez MD [address] [place] [address] Patient Aids requesting office notes Social History Tobacco Use Types Packs/Day Years [...] any time in the past 12 m [facility], were you homeless or [...] drink first t janine in the morning (EYE-LICENSED PESTICIDE APPLICATOR) to steady your nerves or to get [...] Telephone Encounter - Natalie Nunez RN - 12/30/2024 11:33 AM EDT Pt hasn't seen Dr. Vazquez since 01/2024, no upcoming appt scheduled with EP. LVAD appt 01/28 with echo. I attempted to call Patient Aids back to clarify what they were needing, and if records release was needed. No answer, LVM requesting call back. * Telephone Encounter - Ravi Escobedo - 12/30/2024 10:31 AM EDT Patient Phone Message Reason for Call: Patient Aids is requesting pt's office notes. Best contact number and optimal time of day to reach caller: [phone] Note: Please do not reply to this [...] AM EST Appointment Cardiac Imaging [address] [place] [address] 01/28/2025 10:00 AM EST Ancillary Procedure [facility] [address] [place] [address] documented as of this encounter Goals Goal Patient Goal Type Associated Problems Recent Progress Patient-Stated? Author LVAD Short Term Goal General On track( 11:53 AM EDT) Yes Katrin Oviedo, RN Note: - 07/04/23: Patient states he wants to attend a wedding in November in [place] LVAD Healthcare Advisory Services Manager Goal General On track( 11:53 AM [...] documented as of this encounter Care Teams Front Line Leader Relationship Specialty Start Date End Date Herberth Perez MD [address] [place] [address] [place] [address] PCP - General 07/17/20 Gracia Petersen APRN [address] [place] [address] Nurse Practitioner Internal Medicine 08/06/20 Yunior [place]orzano MD [address] [place] [address] Consulting Physician Gastroenterology 07/18/22 Ross Baez, [address] [address] Surgeon Cardiothoracic Surgery 07/18/22 Edith Aleman, LABORER SHELLFISH PROCESSING VAD Coordinator 10/14/24 documented as of this encounter
--- OUTSIDE RECORDS SUMMARY | 2025-01-08 15:13 | XMS_ITS | Encounter Summary ---
Author Organization [employer] ([place], [place], [place], [place], [place]) Address [address] [place] [address] Care Team Providers Care Direct Selling Counselor Name Role Phone Unavailable Primary Care Provider Unavailabl e Encounter Details Date Type Department Care Team (Late st Contact Info) Description 03/29/2018 Transcribed Document [facility] [place] [facility] [place] [address] ProviderMg MD [facility] [place] [address] Social History Tobacco Use Types Packs/Day Years Used Date Smoking Tobacco: Never Assessed Sex and Gender Information Value Date Recorded Sex Assigned at Not on file Legal Sex Male 1:09 PM CDT Gender Identity Not on file Sexual Orientation Not on file documented as of this encounter Miscellaneous Notes * Cerner Conversion Note - Historical ProviderMD - 03/29/2018 5:00 AM KNIFER UP Height and Weight, Routine Entered On: 03/29/2018 5:56 EST Performed On: 03/29/2018 5:00 EST by Josesito Black, [facility] Unit Coord Height and Weight, Routine Routine Weight Source : Standing scale Routine Weight Entry Format : [place] Routine Weight, Pounds : 237 lb Routine Weight, Ounces : 4 oz Routine Weight Calculation : 107.84 kg Height Source : Stated Height Entry Format : [place] Height, Feet : 6 ft Height, Inches : 0 Inch Clinical Height : 182.88 cm Body Surface Area (BSA), Routine : 2.29 m2 Body Mass Index (BMI), Routine : 32.24 kg/m2 [facility]osesito Black, [facility] - 03/29/2018 5:55 EST Electronically signed by Jackie [facility] Conversion Contracts Manager Cerner at 06/19/2022 11:12 PM CDT documented in this encounter Plan of Treatment Not on file documented as of this encounter Visit Diagnoses Not on filedocumented in this encounter
--- OUTSIDE RECORDS SUMMARY | 2025-01-08 15:13 | XMS_ITS | Encounter Summary ---
Author Organization [employer] ([place], [place], [place], [place], [place]) Address [address] [place] [address] Care Team Providers Care Warehouse Driver Name Role Phone Unavailable Primary Care Provider Unavailabl e Encounter Details Date Type Department Care Team (Late st Contact Info) Description 04/20/2018 Transcribed Document [facility] [place] Family Medicine [facility] [place] [address] ProviderMg MD [facility] [place] [address] Social History Tobacco Use Types Packs/Day Years Used Date Smoking Tobacco: Never Assessed Sex and Gender Information Value Date Recorded Sex Assigned at Not on file Legal Sex Male 1:09 PM CDT Gender Identity Not on file Sexual Orientation Not on file documented as of this encounter Miscellaneous Notes * Cerner Conversion Note - Mg ProviderMD - 04/20/2018 9:41 AM BACK TENDER CYLINDER Care Management Assessment/Plan Entered On: 04/20/2018 9:42 EST Performed On: 04/20/2018 9:41 EST by Breann Ordaz RN Care Management Note Anticipated Discharge Date : 04/17/2018 21:00 EST Care Management Note : Anticipated discharge today, home plan, follow up with endocrinology arranged...[facility] Care Management Note Report : Breann Ordaz RN - 04/19/18 10:48:25 Home plan at discharge when medically cleared, follow up appoinment placed in discharge form...Breann Beebe RN - 04/18/18 14:23:07 Jim Sanchez set up appointment with [facility] endocrinology, CM cancelled Martin's appointment and faxed patient information over to [phone]...Breann Beebe RN - 04/18/18 10:02:59 CAREY spoke with Rianna dining room coordinator at [facility]'s office, fax [phone]. Patient's requested date for start of care is in 2 weeks but senior vice president & general counsel as scheduling out for 2-3 months. Patient is on the cancellation list at Dr. Salazar's with a July appointment time. Information sent to above fax, appointment time placed in discharge form...Breann Beebe RN - 04/17/18 13:45:24 Per provider notes, patient scheduled for a DCCV today 04/17/18. [facility] to stop all alcohol use. Thyroid work up taking place during admission for new onset thyroid panel testing. Remains a home plan, no needs noted...Breann Beebe, MARYCARMEN - 04/16/18 09:22:27 chart review and patient interview with Deidre [...] . Home plan at discharge, no needs noted...[facility] Documentation Status Complete : Yes Breann Ordaz, RN - 04/20/2018 9:41 EST Electronically signed by Jackie [facility] Conversion Injection Operator Cerner at 06/19/2022 11:00 PM CDT documented in this encounter Plan of Treatment Not on file documented as of this encounter Visit Diagnoses Not on filedocumented in this encounter
--- OUTSIDE RECORDS SUMMARY | 2025-01-08 15:13 | XMS_ITS | Encounter Summary ---
Author Organization [employer] ([place], [place], [place], [place], [place]) Address [address] [place] [address] Care Team Providers Care Manager In Training Name Role Phone Unavailable Primary Care Provider Unavailabl e Encounter Details Date Type Department Care Team (Late st Contact Info) Description 04/20/2018 Transcribed Document [facility] [place] Medicine [facility] [place] [address] ProviderMg MD [facility] [place], [place] [address] Social History Tobacco Use Types Packs/Day Years Used Date Smoking Tobacco: Never Assessed Sex and Gender Information Value Date Recorded Sex Assigned at Not on file Legal Sex Male 1:09 PM CDT Gender Identity Not on file Sexual Orientation Not on file documented as of this encounter Miscellaneous Notes * Cerner Conversion Note - Historical ProviderMD - 04/20/2018 1:07 PM MAGAZINE WRITER Discharge Instructions Entered On: 04/20/2018 13:08 EST Performed On: 04/20/2018 13:07 EST by RAJAT NAZARIO, MARYCARMEN DC Instructions HWD Stroke/TIA Discharge Ins : N/A Heart Failure Discharge Ins : N/A Warfarin Discharge Ins : N/A Diet After Discharge : Heart healthy diet Activity After Discharge : As tolerated Showering/Bathing : May shower RAJAT NAZARIO, MARYCARMEN - 04/20/2018 13:07 EST documented in this encounter Plan of Treatment Not on file documented as of this encounter Visit Diagnoses Not on filedocumented in this encounter
--- OUTSIDE RECORDS SUMMARY | 2025-01-08 15:13 | XMS_ITS | Encounter Summary ---
Author Organization [employer] ([place], [place], [place], [place], [place]) Address [address] [place] [address] Care Team Providers Care Take Away Man Name Role Phone Unavailable Primary Care Provider Unavailabl e Encounter Details Date Type Department Care Team (Late st Contact Info) Description 04/20/2018 Transcribed Document [facility] [place] [address] [place] [address] ProviderMg MD [address] [place] [address] Social History Tobacco Use Types Packs/Day Years Used Date Smoking Tobacco: Never Assessed Sex and Gender Information Value Date Recorded Sex Assigned at Not on file Legal Sex Male 1:09 PM CDT Gender Identity Not on file Sexual Orientation Not on file documented as of this encounter Miscellaneous Notes * Cerner Conversion Note - Mg ProviderMD - 04/20/2018 1:08 PM STOCK TURNER Patient Education Materials Follows:Medicine Hypotension As your heart beats, it forces [...] quickly after you eat. Medicines ??? Take gmob-pnj-thbvmcn and prescription medicines only as told by [...] 05/17/2010 Document Revised: 11/08/2016 Document Reviewed: 11/08/2016 Elsevier Interactive Patient Education ? 2017 [employer] Neurology Syncope Introduction Syncope is when you lose [...] This can help with dizziness. ??? Take jlcn-sgw-slrnokz and prescription medicines only as told by [...] 07/28/2016 Document Reviewed: 11/04/2015 ? 2017 Elsevier documented in this encounter Plan of Treatment Not on file documented as of this encounter Visit Diagnoses Not on filedocumented in this encounter
--- OUTSIDE RECORDS SUMMARY | 2025-01-08 15:14 | XMS_ITS | Encounter Summary ---
Author Organization [employer] ([place], [place], [place], [place], [place]) Address [address] [place] [address] Care Team Providers Care Assurance Specialist Name Role Phone Unavailable Primary Care Provider Unavailabl e Encounter Details Date Type Department Care Team (Late st Contact Info) Description 05/28/2018 Transcribed Document [facility] [place] [facility] [place] [address] ProviderMg [place] [address] Social History Tobacco Use Types Packs/Day Years Used Date Smoking Tobacco: Never Assessed Sex and Gender Information Value Date Recorded Sex Assigned at Not on file Legal Sex Male 1:09 PM CDT Gender Identity Not on file Sexual Orientation Not on file documented as of this encounter Miscellaneous Notes * Cerner Conversion Note - Mg ProviderMD - 05/28/2018 10:25 AM CDT Pre Procedure Adult Entered On: 05/28/2018 10:30 EDT Performed On: 05/28/2018 10:25 EDT by BRITTON OSBORNE RN Height and Weight, Clinical Dosing Height Source : Stated Height Entry Format : [place] Height, Feet : 0 ft(Converted to: 0 cm, 0 Inch) Height, Inches : 72 Inch(Converted to: 6 ft 0 Inch, 182.88 cm) Clinical Height : 182.88 cm Weight Source : Standing scale Weight Entry Format : [place] Clinical Dosing Weight : 109.09 kg Weight, Pounds : 240 lb Body Surface Area (BSA) : 2.3 m2 Body Mass Index : 32.6 kg/m2 (HI) [place] Body Weight : 77 kg BRITTON OSBORNE RN - 05/28/2018 10:25 EDT Health Histories Smoking Status : Never (less than 100 in lifetime; none in last 30 days) Smokeless Tobacco Status : Smokeless tobacco user within last 30 days Desires Tobacco Cessation Medication : No Reason for No Tobacco Cessation Medication : Refuses FDA approved medications BRITTON OSBORNE RN - 05/28/2018 10:25 EDT Social History (As Of: 05/28/2018 10:30:28 EDT) Tobacco: Use in Last 12 Months: Snuff/Dip. [...] 02/12/2017 17:32:08 EST by SERGEI GARCIA RN) Infectious Disease History Infectious Disease History : Chicken pox/Shingles, Influenza, Measles, Mumps Fever/Chills Last 48 Hours : No Travel To Regions with Travel Advisories : No Travel Outside [place] Within Last 30 Days : No Contact With Traveler to Advisory Region : No Tuberculosis Symptoms : None BRITTON OSBORNE RN - 05/28/2018 10:25 EDT Anesthesia/Transfusion History Family History of Anesthesia Reaction : No prior transfusion(s) Blood Transfusion Acceptable to Patient : Yes Transfusion History : Prior anesthesia reaction Type of Anesthesia Reaction : Excessive somnolence Family History of Anesthesia Reaction : None BRITTON OSBORNE RN - 05/28/2018 10:25 EDT Functional Assessment Living Situation : Home Current Home Treatments : None BRITTON OSBORNE RN - 05/28/2018 10:25 EDT Psychosocial History Does Someone Depend on You for Care? : No Chronic/Terminal Illness w/Freq Visits : No Do You Have a History of the Following? : Patient denies history Currently in Unsafe Situation : No Tried to Harm Yourself in the Past? : No Thoughts of Harming/Killing Yourself : No BRITTON OSBORNE RN - 05/28/2018 10:25 EDT Advance Directive Patient has Advance Directive *Q : No, patient refuses Advance Directive information BRITTON OSBORNE RN - 05/28/2018 10:25 EDT Education Topics, Periop Preadmission Perioperative Education Grid IV's : Verbalizes understanding BRITTON OSBORNE RN - 05/28/2018 10:25 EDT General Info Support Person/Patient Nurse Prn : Yes Support Person/Pt Rep Name : Deidre Pearson-- Support Person/Pt Rep Contact Information : [phone] Want Family/Rep/Phys Notified of Admit : No Emergency Contact #1 : Deidre- [phone] Emergency Contact #1 Phone Number : - Emergency Contact #1 Relationship : - Emergency Contact #2 : -- Emergency Contact #2 Phone Number : - Emergency Contact #2 Relationship : - Primary Language : Bhutanese Preferred Communication Mode : Verbal Communication Barrier : None BRITTON OSBORNE RN - 05/28/2018 10:25 EDT Sleep Apnea Risk Assmt Hx of Obstructive Sleep Apnea Diagnosis : No Snore Loudly : Yes Tired, Fatigued, or Sleepy During Day : Yes Observed Stopping Breathing During Sleep : No Have/Are Being Treated for Hypertension : Yes BMI Greater Than 35 kg/m2 : Yes Age over 50 Years Old : No Gender Male : Yes BRITTON OSBORNE RN - 05/28/2018 10:25 EDT Mike Scale Mike Sensory Perception : No impairment Mike Moisture : Rarely moist Mike Activity : Walks occasionally Mike Mobility : No limitation Mike Nutrition : Adequate Mike Friction and Shear : No apparent problem Mike Score : 21 BRITTON OSBORNE RN - 05/28/2018 10:25 EDT Oxygen Therapy Oxygen Therapy Mode : Room air Oxygen Titrated : No BRITTON OSBORNE RN - 05/28/2018 10:25 EDT Pain Assessment Pain Assessment : Initial assessment Pain Scale Goal : 0 Pain Scl Goal Comment : 0 Duration : 0 Pain Scale Used : 0-10 Scale BRITTON OSBORNE RN - 05/28/2018 10:25 EDT Fall Risk Scales ABCs Fall Injury Risk [...] own ability Sharma Fall Risk Score : 0 SHARMA Fall Scale Risk Level : 0-24 Low Risk [place] Fall Interventions : Wheels locked BRITTON OSBORNE RN - 05/28/2018 10:25 EDT Education Topics, Day of Surgery DayofSurgery Education Grid IV's : Verbalizes understanding BRITTON OSBORNE RN - 05/28/2018 10:25 EDT Valuables and Belongings Valuables and Belongings : Clothing Clothing : Common streetwear Clothing Disposition : Bedside, Other: one wedding b and - left hand BRITTON OSBORNE RN - 05/28/2018 10:25 EDT Pain Scale Intensity : 0 BRITTON OSBORNE RN - 05/28/2018 10:25 EDT Image 4 - Images currently included in the form version of this document have not been included in the text rendition version of the form. documented in this encounter Plan of Treatment Not on file documented as of this encounter Visit Diagnoses Not on filedocumented in this encounter
--- OUTSIDE RECORDS SUMMARY | 2025-01-08 15:14 | XMS_ITS | Encounter Summary ---
Author Organization [employer] ([place], [place], [place], [place], [place]) Address [address] [place] [address] Care Team Providers Care Jet Dyeing Machine Tender Name Role Phone Unavailable Primary Care Provider Unavailabl e Encounter Details Date Type Department Care Team (Late st Contact Info) Description 05/28/[address] [facility] [place] [facility] [place] [address] ProviderMg MD [facility] [place] [address] Social History Tobacco Use Types Packs/Day Years Used Date Smoking Tobacco: Never Assessed Sex and Gender Information Value Date Recorded Sex Assigned at Not on file Legal Sex Male 1:09 PM CDT Gender Identity Not on file Sexual Orientation Not on file documented as of this encounter Miscellaneous Notes * Cerner Conversion Note - Mg Ritchie MD - 05/28/2018 4:50 PM CDT [address] [address] Patient Copy Patient Information: Name: JOSE PEARSON Current Date: 05/28/2018 16:50:55 : 1970 Patient Address: [address] [place] [id number] Patient Attending Physician: JONATAN ISABEL MD-CAR Primary Care Provider: HUMA YARBROGUH (REF)JAYNE Primary Care Provider Discharge Diagnosis: Weight on Admission: 240 lb, 0 oz Comment: Follow-up Instructions: With: Address: [place]: JONATAN ISABEL [address] [facility] [address] [place] [address] Business (1) Comments: Call for follow up appointment in the morning Discharge Instructions: Diet after Discharge: Resume usual diet as tolerated Activity after Discharge: Rest and relax today, No strenuous activities, No heavy lifting over 10 pounds Driving after Discharge: Other: May NOT drive for 24 hours Showering/Bathing:Other: May remove dressings and shower after 24 hours Immunizations Documented During Stay: No Immunizations Found Heart Failure Discharge Instructions (if any): Stroke Related Discharge Instructions (if any): Warfarin Related Discharge Instructions (if any): Final Medication List: Other Medications albuterol (Proventil HFA 90 mcg/inh inhalation aerosol) Inhalation Four Times A Day as needed Shortness of Breath. carvedilol 6.25 Milligram(s) Oral Two Times A Day. cetirizine (cetirizine 10 mg oral tablet) 1 Tablet(s) Oral Every Day. dofetilide (Tikosyn 250 mcg oral capsule) 2 Capsule(s) Oral Two Times A Day. Refills: 0. FLUoxetine (FLUoxetine 20 mg oral capsule) 1 Capsule(s) Oral At Bedtime. fluticasone nasal (fluticasone 50 mcg/inh nasal spray) 1 [place](s) Nostrils Both Every Day. furosemide (Lasix 40 [...] difficulty sleeping, and nervousness. Patient education materials: Groin Site Care Refer to this sheet in the next few weeks. These instructions provide you with information on caring for yourself after your procedure. Your caregiver may also give you more specific instructions. Your treatment has been planned according to current medical practices, but problems sometimes occur. Call your caregiver if you have any problems or questions after your procedure. HOME CARE INSTRUCTIONS ? You may shower 24 hours after the procedure. Remove the bandage (dressing ) and gently wash the site with plain soap and water. Gently pat the site dry. ? Do not apply powder or lotion to the site. ? Do not sit in a bathtub, swimming pool, or whirlpool for 5 to 7 days. ? No bending, squatting, or lifting anything over 10 pounds (4.5 kg) as directed by your caregiver. ? Inspect the site at least twice daily. ? Do not drive home if you are discharged the same day of the procedure. Have someone else drive you. ? You may drive 24 hours after the procedure unless otherwise instructed by your caregiver. What to expect: ? Any bruising will usually fade within 1 to 2 weeks. ? Blood that collects in the tissue (hematoma ) may be painful to the touch. It should usually decrease in size and tenderness within 1 to 2 weeks. SEEK IMMEDIATE MEDICAL CARE IF: ? You have unusual pain at the groin site or down the affected leg. ? You have redness, warmth, swelling, or pain at the groin site. ? You have drainage (other than a small amount of blood on the dressing). ? You have chills. ? You have a fever or persistent symptoms for more than 72 hours. ? You have a fever and your symptoms suddenly get worse. ? Your leg becomes pale, cool, tingly, or numb. ? You have heavy bleeding from the site. Hold pressure on the site. Document Released: 03/25/2011 Document Revised: 05/14/2012 Document Reviewed: 03/25/2011 ExitCare? Patient Information ?2014 [employer]. Cardiac Ablation Cardiac ablation is a procedure to stop some heart tissue from causing problems. The heart has many electrical connections. Sometimes these connections cause the heart to beat very fast or irregularly. Removing some of the problem areas can improve heart rhythm or make it normal. Ablation is done for people who: ??? Have Aunkp-Otpaiidmj-Plxde syndrome. ??? Have other fast heart rhythms (tachycardia). ??? Have taken medicines for an abnormal heart rhythm (arrhythmia) and the medicines had: ? No success. ? Side effects. ??? May have a type of heartbeat that could cause . What happens before the procedure? Follow instructions from your doctor about eating and drinking before the procedure. ??? Take your medicines as told by your doctor. Take them at regular times with water unless told differently by your doctor. ??? If you are taking diabetes medicine, ask your doctor how to take it. Ask if there are any special instructions you should follow. Your doctor may change how much insulin you take the day of the procedure. What happens during the procedure? A special type of X-ray will be used. The X-ray helps your doctor see images of your heart during the procedure. ??? A small cut (incision) will be made in your neck or groin. ??? An IV tube will be started before the procedure begins. ??? You will be given a numbing medicine (anesthetic) or a medicine to help you relax (sedative). ??? The skin on your neck or groin will be numbed. ??? A needle will be put into a large vein in your neck or groin. ??? A thin, flexible tube (catheter) will be put in to reach your heart. ??? A dye will be put in the tube. The dye will show up on X-rays. It will help your doctor see the area of the heart that needs treatment. ??? When the heart tissue that is causing problems is found, the tip of the tube will send an electrical current to it. This will stop it from causing problems. ??? The tube will be taken out. ??? Pressure will be put on the area where the tube was. This will keep it from bleeding. A bandage will be placed over the area. What happens after the procedure? You will be taken to a recovery area. Your blood pressure, heart rate, and breathing will be watched. The area where the tube was will also be watched for bleeding. ??? You will need to lie still for 4?6 hours. This keeps the area where the tube was from bleeding. This information is not intended to replace advice given to you by your health care provider. Make sure you discuss any questions you have with your health care provider. Document Released: 10/23/2013 Document Revised: 07/28/2016 Document Reviewed: 07/18/2013 [employer] Interactive Patient Education ? 2017 [employer] Moderate Conscious Sedation, Adult, Care After These instructions provide you with information about caring for yourself after your procedure. Your health care provider may also give you more specific instructions. Your treatment has been planned according to current medical practices, but problems sometimes occur. Call your health care provider if you have any problems or questions after your procedure. What can I expect after the procedure? After your procedure, it is common: ??? To feel sleepy for several hours. ??? To feel clumsy and have poor balance for several hours. ??? To have poor judgment for several hours. ??? To vomit if you eat too soon. Follow these instructions at home: For at least 24 hours after the procedure: ??? Do not: ? Participate in activities where you could fall or become injured. ? Drive. ? Use heavy machinery. ? Drink alcohol. ? Take sleeping pills or medicines that cause drowsiness. ? Make important decisions or sign legal documents. ? Take care of children on your own. ??? Rest. Eating and drinking ??? Follow the diet recommended by your health care provider. ??? If you vomit: ? Drink water, juice, or soup when you can drink without vomiting. ? Make sure you have little or no nausea before eating solid foods. General instructions ??? Have a responsible adult stay with you until you are awake and alert. ??? Take guue-goj-nioyfgm and prescription medicines only as told by your health care provider. ??? If you smoke, do not smoke without supervision. ??? Keep all follow-up visits as told by your health care provider. This is important. Contact a health care provider if: ??? You keep feeling nauseous or you keep vomiting. ??? You feel light-headed. ??? You develop a rash. ??? You have a fever. Get help right away if: ??? You have trouble breathing. This information is not intended to replace advice given to you by your health care provider. Make sure you discuss any questions you have with your health care provider. Document Released: 12/11/2013 Document Revised: 07/25/2016 Document Reviewed: 06/11/2016 [employer] Interactive Patient Education ? 2017 [employer] CIGARETTE SMOKING: The facts are clear, cigarette smoking will shorten your life. Smoking can cause many illnesses along the way. As a healthcare provider, we recommend that you stop smoking. Assistance with quitting is available by contacting 0-655-OHZC-NOW. This is a free resource providing counseling, [...] Be sure to sign up for the [employer] patient portal, which gives you 26/09 access to your medical information ??? including these discharge instructions ??? using your computer, smartphone, or tablet. Just go to [employer] to get started. Questions? Call . [facility] would like to thank you for allowing us to assist you with your healthcare needs. ANASTASIA Rich DENNIS PAUL, (or artists' booking representative) have received the above patient education materials/instructions and have verbalized understanding: Patient Signature _ Date/Time Patient Nut Picker Signature (if needed) Date/Time Clinician/Hospital Nut Picker Signature (if needed) Date/Time Electronically signed by Interface, [facility] Conversion Piano And Organ Refinisher Cerner at 06/19/2022 10:50 PM CDT documented in this encounter Plan of Treatment Not on file documented as of this encounter Visit Diagnoses Not on filedocumented in this encounter
--- OUTSIDE RECORDS SUMMARY | 2025-01-08 15:14 | XMS_ITS | Encounter Summary ---
Author Organization [employer] ([place], [place], [place], [place], [place]) Address [address] [place] [address] Care Team Providers Care Grain Merchandiser Name Role Phone Unavailable Primary Care Provider Unavailabl e Encounter Details Date Type Department Care Team (Late st Contact Info) Description 04/24/2018 Transcribed Document [facility] Family Medicine [facility] [place] [address] ProviderMg MD [facility] [place] [address] Social History Tobacco Use Types Packs/Day Years Used Date Smoking Tobacco: Never Assessed Sex and Gender Information Value Date Recorded Sex Assigned at Not on file Legal Sex Male 1:09 PM CDT Gender Identity Not on file Sexual Orientation Not on file documented as of this encounter Miscellaneous Notes * Cerner Conversion Note - Mg Ritchie MD - 04/24/2018 10:35 AM CERTIFIED HEALTH EDUCATION SPECIALIST Patient: JOSE PEARSON Age: 47 years Sex: Male : 1970 Associated Diagnoses: None Author: SO BURDICK MD-CAR admit 04/15/18 dc 04/20/18 Subjective no cp or soa. Health Status Allergies: Allergic Reactions (Selected) No Known Medication Allergies, Allergies (1) Active Reaction No Known Medication Allergies None Documented Current medications: (Selected) Prescriptions Prescribed Tikosyn 250 mcg oral capsule: 2 Cap, Oral, BID, 120 Cap, 0 Refill(s) Documented Medications Documented Entresto [...] chest pain, 100 Tab, 0 Refill(s) Proventil HFA 90 mcg/inh inhalation aerosol: Puff, Inhalation, QID, PRN: Shortness of Breath, 0 Refill(s) Xarelto 20 mg oral tablet: 1 Tab, Oral, Daily, 30 Tab, 0 Refill(s) carvedilol: 6.25 mg, Oral, BID, 0 Refill(s) cetirizine 10 mg oral tablet: 1 Tab, Oral, Daily, 0 Refill(s) fluticasone 50 mcg/inh nasal spray: 1 [place], Nostrils Both, Daily, 0 Refill(s) montelukast 10 mg oral tablet: 1 Tab, Oral, Daily, 0 Refill(s) pravastatin 80 mg oral tablet: 1 Tab, Oral, At Bedtime, 0 Refill(s) spironolactone: 25 mg, Oral, Daily, 0 Refill(s), Home Medications (14) Active carvedilol 6.25 mg, Oral, BID cetirizine 10 mg oral tablet 10 mg = 1 Tab, Oral, Daily Entresto 24 mg-26 mg oral tablet 1 Tab, Oral, BID FLUoxetine 20 mg oral capsule 20 mg = 1 Cap, Oral, At Bedtime fluticasone 50 mcg/inh nasal spray 1 [place], Nostrils Both, Daily Lasix 40 mg oral tablet 40 mg = 1 Tab, Oral, BID Melatonin 3 mg oral tablet 3 mg = 1 Tab, Oral, 1-Time montelukast 10 mg oral tablet 10 mg = 1 Tab, Oral, Daily Nitrostat 0.4 mg sublingual tablet 0.4 mg = 1 Tab, PRN, SubLINgual, Q5Min pravastatin 80 mg oral tablet 80 mg = 1 Tab, Oral, At Bedtime Proventil HFA 90 mcg/inh inhalation aerosol , PRN, Inhalation, QID spironolactone 25 mg, Oral, Daily Tikosyn 250 mcg oral capsule 500 mcg = 2 Cap, Oral, BID Xarelto 20 mg oral tablet 20 mg = 1 Tab, Oral, Daily , No qualifying data available Problem list: Medical angina / SNOMED CT 370115238 / Confirmed At risk for sleep apnea / IMO 44558011 / Confirmed cardiac defibulator / Confirmed interrogated at physicians office---02/22/13 pacemaker / SNOMED CT 7493155166 / Confirmed stroke / SNOMED CT 018209562 / Confirmed he had a stroke when they found the blood clot in valve 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 / Confirmed treated with blood thinners History of obstructive sleep apnea / IMO 11316920 / Confirmed high cholesterol / SNOMED CT 63233431 / Confirmed hypertension / SNOMED CT 6534199776 / Confirmed myocardial infarction / SNOMED CT 50816798 / Confirmed sesonal allergies / Confirmed, Active Problems (19) stroke angina Asthma At risk for sleep apnea cardiac defibulator Cardiomyopathy 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 Neck: No carotid bruit, No jugular venous distention. Respiratory: Lungs are clear to auscultation, Respirations are non-labored, Breath sounds are equal, Symmetrical chest wall expansion. Cardiovascular: Normal rate, Regular rhythm, No murmur, No gallop, Good pulses equal in all extremities, Normal peripheral perfusion, No edema, paced . Gastrointestinal: Normal bowel sounds. Integumentary: Warm, Dry, Blue Ball. Results Review General results HYROID ULTRASOUND HISTORY: [...] Syncope with V-fib s/p ICD shock x2 2/10 - EF <20% per office ECHO 03/22/18 - NYHA = 2-3 - Cont Coreg, Entresto, Aldactone -reviewed EKG with Dr akins who measured QT and adjusted for v paced rhythm and QTC <500. PAF - dccv to sr / - tikosyn 500 bid , QTC 489 [...]
--- OUTSIDE RECORDS SUMMARY | 2025-01-08 15:14 | XMS_ITS | Encounter Summary ---
Author Organization [employer] ([place], [place], [place], [place], [place]) Address [address] [place] [address] Care Team Providers Care Reptile Farmer Name Role Phone Unavailable Primary Care Provider Unavailabl e Encounter Details Date Type Department Care Team (Late st Contact Info) Description 04/15/2018 Transcribed Document [facility] [place] [facility] [address] [place] [address] Social History Tobacco Use Types Packs/Day Years Used Date Smoking Tobacco: Never Assessed Sex and Gender Information Value Date Recorded Sex Assigned at Not on file Legal Sex Male 1:09 PM CDT Gender Identity Not on file Sexual Orientation Not on file documented as of this encounter Miscellaneous Notes * Cerner Conversion Note - Historical ProviderMD - 04/15/2018 10:08 AM PERSONAL LINES UNDERWRITER [facility] Charges Entered On: 04/15/2018 10:08 EST Performed On: 04/15/2018 10:08 EST by Anthony Blanchard Physical Therapist [facility] Physical Therapy Screen : 1 Anthony Blanchard, Physical Therapist - 04/15/2018 10:08 EST documented in this encounter Plan of Treatment Not on file documented as of this encounter Visit Diagnoses Not on filedocumented in this encounter
--- OUTSIDE RECORDS SUMMARY | 2025-01-08 15:14 | XMS_ITS | Encounter Summary ---
Author Organization [employer] ([place], [place], [place], [place], [place]) Address [address] [place] [address] Care Team Providers Care Mold Machine Operator Name Role Phone Unavailable Primary Care Provider Unavailabl e Encounter Details Date Type Department Care Team (Late st Contact Info) Description 05/28/2018 Transcribed Document [facility] [place] [address] [place] [address] ProviderMg [place] [address] Social History Tobacco Use Types Packs/Day Years Used Date Smoking Tobacco: Never Assessed Sex and Gender Information Value Date Recorded Sex Assigned at Not on file Legal Sex Male 1:09 PM CDT Gender Identity Not on file Sexual Orientation Not on file documented as of this encounter Miscellaneous Notes * Cerner Conversion Note - Historical ProviderMD - 05/28/2018 4:49 PM CDT Discharge Instructions Entered On: 05/28/2018 16:50 EDT Performed On: 05/28/2018 16:49 EDT by ANUSHA YATES RN DC Instructions HWD Stroke/TIA Discharge Ins : N/A Heart Failure Discharge Ins : N/A Warfarin Discharge Ins : N/A Diet After Discharge : Resume usual diet as tolerated Activity After Discharge : Rest and relax today, No strenuous activities, No heavy lifting over 10 pounds Driving After Discharge : Other: May NOT drive for 24 hours Showering/Bathing : Other: May remove dressings and shower after 24 hours ANUSHA YATES RN - 05/28/2018 16:49 EDT documented in this encounter Plan of Treatment Not on file documented as of this encounter Visit Diagnoses Not on filedocumented in this encounter
--- OUTSIDE RECORDS SUMMARY | 2025-01-08 15:14 | XMS_ITS | Encounter Summary ---
Author Organization [employer] ([place], [place], [place], [place], [place]) Address [address] [place] [address] Care Team Providers Care Internal Security Manager Name Role Phone Unavailable Primary Care Provider Unavailabl e Encounter Details Date Type Department Care Team (Late st Contact Info) Description 04/18/2018 Transcribed Document [facility] [place] [facility] [place] [address] ProviderMg MD [address] [place] [address] Social History Tobacco Use Types Packs/Day Years Used Date Smoking Tobacco: Never Assessed Sex and Gender Information Value Date Recorded Sex Assigned at Not on file Legal Sex Male 1:09 PM CDT Gender Identity Not on file Sexual Orientation Not on file documented as of this encounter Miscellaneous Notes * Cerner Conversion Note - Mg ProviderMD - 04/18/2018 9:58 AM FIRE PROTECTION FABRICATOR [address] , [place] [id number] Patient Copy Patient Information: Name: JOSE PEARSON Current Date: 04/18/2018 09:58:44 : 1970 Patient Address: [address] [place] [id number] Patient Attending Physician: KATY FRIAS MD-CAR Primary Care Provider: HUMA YARBROUGH (REF)MD-VENKAT Primary Care Provider Discharge Diagnosis: Cardiac rhythm disturbance; Hypotension; Scalp contusion; Syncope Weight on Admission: 229 lb, 0 oz Weight at Discharge: 229 lb, 2 oz Comment: Follow-up Instructions: With: Address: When: FRANK COREAS [facility] [address] , [address] [place] [address] Business (1) 2:00 PM Comments: Appointment has been made Bring Ins Card, Photo ID, Ins Co-pay Placed on the cancellation list, they will be calling if an earlier appointment becomes availible Discharge Instructions: Immunizations Documented During Stay: No Immunizations Found [...] nasal (fluticasone 50 mcg/inh nasal spray) 1 [place](s) Nostrils Both Every Day. furosemide (Lasix 40 [...] 1 Tablet(s) Oral Two Times A Day. sotalol (sotalol 120 mg oral tablet) 1 Tablet(s) Oral Two Times A Day. Refills: 0. spironolactone 25 Milligram(s) Oral Every Day. Patient [...] cramping, rapid heartbeat, difficulty sleeping, and nervousness. Medication Leaflets: dofetilide (eden FET i lide) [...] may report side effects to FDA at 6-439-CBX-4104. What other drugs will affect dofetilide? Other drugs may interact with dofetilide, including prescription and ezvz-jow-nuxzriy medicines, vitamins, and herbal products. Tell each [...] to ensure that the information provided by Ge.tt. ('Multum') is accurate, up-to-date, and complete, but no guarantee is made to that effect. Drug information contained herein may be time sensitive. UGOBE information has been compiled for use by healthcare practitioners and consumers in the [place] and therefore UGOBE does not warrant that uses outside of the [place] are appropriate, unless specifically indicated otherwise. UGOBE's drug information does not endorse drugs, diagnose patients or recommend therapy. [employer] bioph[employer]as drug information is an informational resource designed [...] effective or appropriate for any given patient. U[employer]BE does not assume any responsibility for any aspect of healthcare administered with the aid of information U[employer]BE provides. The information contained herein is not intended to cover all possible uses, directions, precautions, warnings, drug interactions, allergic reactions, or adverse effects. If you have questions about the drugs you are taking, check with your doctor, nurse or pharmacist. Copyright 4923-9800 Ge.tt. Version: 4.01. Revision Date: 06/17/2015. CIGARETTE SMOKING: The facts are clear, cigarette smoking will shorten your life. Smoking can cause many illnesses along the way. As a healthcare provider, we recommend that you stop smoking. Assistance with quitting is available by contacting 9-955-YSOP-NOW. This is a free resource providing counseling, [...] Be sure to sign up for the Droid system [facility] patient portal, which gives you 26/09 access to your medical information ??? including these discharge instructions ??? using your computer, smartphone, or tablet. Just go to [employer] to get started. Questions? Call . [facility] would like to thank you for allowing us to assist you with your healthcare needs. ANASTASIA Rich DENNIS PAUL, (or sales representative printing) have received the above patient education materials/instructions and have verbalized understanding: Patient Signature _ Date/Time Patient Greige Goods Examiner Signature (if needed) Date/Time Clinician/Hospital Greige Goods Examiner Signature (if needed) Date/Time Electronically signed by Jackie, [facility] Conversion Lead Mobile Developer Cerner at 06/19/2022 11:14 PM CDT documented in this encounter Plan of Treatment Not on file documented as of this encounter Visit Diagnoses Not on filedocumented in this encounter
--- OUTSIDE RECORDS SUMMARY | 2025-01-08 15:14 | XMS_ITS | Encounter Summary ---
Author Organization [employer] ([place], [place], [place], [place], [place]) Address [address] [place] [address] Care Team Providers Care Automobile Designer Name Role Phone Unavailable Primary Care Provider Unavailabl e Encounter Details Date Type Department Care Team (Late st Contact Info) Description 04/16/2018 Transcribed Document [facility] [place] [address] ProviderMg MD [place] [address] Social History Tobacco Use Types Packs/Day Years Used Date Smoking Tobacco: Never Assessed Sex and Gender Information Value Date Recorded Sex Assigned at Not on file Legal Sex Male 1:09 PM CDT Gender Identity Not on file Sexual Orientation Not on file documented as of this encounter Miscellaneous Notes * Cerner Conversion Note - Historical ProviderMD - 04/16/2018 7:44 PM WIND ENERGY SYSTEMS INSTALLER Event Note Entered On: 04/16/2018 19:45 EST Performed On: 04/16/2018 19:44 EST by CHARLA PHILLIPS RN Event Note Event Date/Time : 04/16/2018 19:44 EST Event Location : Assigned room Description of Event : Dr Hobbs called to DC amiodarone 400 mg po. CHARLA PHILLIPS RN - 04/16/2018 19:44 EST Electronically signed by Jackie [facility] Conversion Recovery Specialist Jessica at 06/19/2022 10:59 PM CDT documented in this encounter Plan of Treatment Not on file documented as of this encounter Visit Diagnoses Not on filedocumented in this encounter
--- OUTSIDE RECORDS SUMMARY | 2025-01-08 15:14 | XMS_ITS | Encounter Summary ---
Author Organization [employer] ([place], [place], [place], [place], [place]) Address [address] [place] [address] Care Team Providers Care Pastoral Assistant Name Role Phone Unavailable Primary Care Provider Unavailabl e Encounter Details Date Type Department Care Team (Late st Contact Info) Description 04/20/2018 Transcribed Document [facility] [place] [facility] [place] [address] ProviderMg MD [address] [place] [address] Social History Tobacco Use Types Packs/Day Years Used Date Smoking Tobacco: Never Assessed Sex and Gender Information Value Date Recorded Sex Assigned at Not on file Legal Sex Male 1:09 PM CDT Gender Identity Not on file Sexual Orientation Not on file documented as of this encounter Miscellaneous Notes * Cerner Conversion Note - Mg ProviderMD - 04/20/2018 1:08 PM VACUUM TESTER CANS [place] [address] [facility] [place] [address] Patient Copy Patient Information: Name: JOSE PEARSON Current Date: 04/20/2018 13:08:13 : 1970 Patient Address: [address] [place] [phone] Patient Attending Physician: Primary Care Provider: HUMA YARRBOUGH (REF)MD-INT Primary Care Provider Discharge Diagnosis: Cardiac rhythm disturbance; Hypotension; Scalp contusion; Syncope Weight on Admission: 229 lb, 0 oz Weight at Discharge: 229 lb, 7 oz Comment: Follow-up Instructions: With: Address: When: JONATAN ISABEL [address] [place] [address] [address] [place] [address] Business (1) In 17 days 05/07/2018 Comments: Office to call with appoint/instructions or you may need to call if you have not heard from them With: Address: When: KIM EDOUARD 1:45 PM Comments: follow for thyroid as we discussed. you have the appropriate address With: Address: When: [address] [place], [place] [id number] Business (1) Within 2 weeks Discharge Instructions: Diet after Discharge: Heart healthy diet Activity after Discharge: As tolerated Showering/Bathing: May shower Immunizations Documented During Stay: No Immunizations Found Heart Failure Discharge Instructions (if any): Stroke Related Discharge Instructions (if any): Warfarin Related Discharge Instructions (if any): Final Medication List: [facility] [place], [place] [id number], [phone] dofetilide (Tikosyn 250 mcg oral capsule) 2 [...] nasal (fluticasone 50 mcg/inh nasal spray) 1 [place](s) Nostrils Both Every Day. furosemide (Lasix 40 [...] quickly after you eat. Medicines ??? Take hzgr-lwv-ocrnote and prescription medicines only as told by [...] 05/17/2010 Document Revised: 11/08/2016 Document Reviewed: 11/08/2016 ElseLysosomal [employer] Interactive Patient Education ? 2017 Elsevier Inc. [...] This can help with dizziness. ??? Take kckw-lyt-dhgezmm and prescription medicines only as told by [...] right away. Call your local emergency services (201 in the [place].S[place] Do not drive yourself [...] may report side effects to FDA at 4-224-GOI-2070. What other drugs will affect dofetilide? Other drugs may interact with dofetilide, including prescription and crwe-wmy-tncthhg medicines, vitamins, and herbal products. Tell each [...] to ensure that the information provided by Pan[employer]. ('Multum') is accurate, up-to-date, and complete, but no guarantee is made to that effect. Drug information contained herein may be time sensitive. Scirra information has been compiled for use by healthcare practitioners and consumers in the [place] and therefore Scirra does not warrant that uses outside of the [place] are appropriate, unless specifically indicated otherwise. Scirra's drug information does not endorse drugs, diagnose patients or recommend therapy. eASICs drug information is an informational resource designed [...] effective or appropriate for any given patient. [facility] does not assume any responsibility for any aspect of healthcare administered with the aid of information [facility] provides. The information contained herein is not intended to cover all possible uses, directions, precautions, warnings, drug interactions, allergic reactions, or adverse effects. If you have questions about the drugs you are taking, check with your doctor, nurse or pharmacist. Copyright 5344-6754 [facility]. Version: 4.01. Revision Date: 06/17/2015. CIGARETTE SMOKING: The facts are clear, cigarette smoking will shorten your life. Smoking can cause many illnesses along the way. As a healthcare provider, we recommend that you stop smoking. Assistance with quitting is available by contacting 2-552-GLMO-NOW. This is a free resource providing counseling, [...] Be sure to sign up for the [employer] patient portal, which gives you 26/09 access to your medical information ??? including these discharge instructions ??? using your computer, smartphone, or tablet. Just go to [employer] to get started. Questions? Call . [facility] would like to thank you for allowing us to assist you with your healthcare needs. ANASTASIA Rich DENNIS PAUL, (or bilingual call center representative) have received the above patient education materials/instructions and have verbalized understanding: Patient Signature _ Date/Time Patient Welder Plastic Signature (if needed) Date/Time Clinician/Hospital Welder Plastic Signature (if needed) Date/Time documented in this encounter Plan of Treatment Not on file documented as of this encounter Visit Diagnoses Not on filedocumented in this encounter
--- OUTSIDE RECORDS SUMMARY | 2025-01-08 15:14 | XMS_ITS | Encounter Summary ---
Author Organization [employer] ([place], [place], [place], [place], [place]) Address [address] [place] [address] Care Team Providers Care Cosmetic Sales Name Role Phone Unavailable Primary Care Provider Unavailabl e Encounter Details Date Type Department Care Team (Late st Contact Info) Description 04/18/2018 Transcribed Document [facility] [place] [facility] [place] [address] ProviderMg MD [facility] [place] [address] Social History Tobacco Use Types Packs/Day Years Used Date Smoking Tobacco: Never Assessed Sex and Gender Information Value Date Recorded Sex Assigned at Not on file Legal Sex Male 1:09 PM CDT Gender Identity Not on file Sexual Orientation Not on file documented as of this encounter Miscellaneous Notes * Cerner Conversion Note - Mg ProviderMD - 04/18/2018 10:00 AM SECURITY COMPLIANCE SPECIALIST Care Management Assessment/Plan Entered On: 04/18/2018 10:02 EST Performed On: 04/18/2018 10:00 EST by Breann Ordaz, RN Care Management Note Anticipated Discharge Date : 04/17/2018 21:00 EST Care Management Note : CAREY spoke with Rianna tender coordinator at Ángel Salazar's office, fax [phone]. Patient's requested date for start of care is in 2 weeks but environmental health and safety intern as scheduling out for 2-3 months. Patient is on the cancellation list at Dr. Salazar's with a July appointment time. Information sent to above fax, appointment time placed in discharge form...arh Care Management Note Report : Breann Ordaz, RN - 04/17/18 13:45:24 Per provider notes, patient scheduled for a DCCV today 04/17/18. [place] to stop all alcohol use. Thyroid work up taking place during admission for new onset thyroid panel testing. Remains a home plan, no needs noted...arh Breann Ordaz, RN - 04/16/18 09:22:27 chart review and patient [...] . Home plan at discharge, no needs noted...[facility] Documentation Status Complete : Yes Breann Ordaz, RN - 04/18/2018 10:00 EST Electronically signed by Jackie [facility] Conversion Photographer Model Cerner at 06/19/2022 11:07 PM CDT documented in this encounter Plan of Treatment Not on file documented as of this encounter Visit Diagnoses Not on filedocumented in this encounter
--- OUTSIDE RECORDS SUMMARY | 2025-01-08 15:14 | XMS_ITS | Encounter Summary ---
Author Organization [employer] ([place], [place], [place], [place], [place]) Address [address] [place] [address] Care Team Providers Care Executive Office Manager Name Role Phone Unavailable Primary Care Provider Unavailabl e Encounter Details Date Type Department Care Team (Late st Contact Info) Description 05/28/2018 Transcribed Document [facility] [place] [address] [place] [address] Social History Tobacco Use Types Packs/Day Years Used Date Smoking Tobacco: Never Assessed Sex and Gender Information Value Date Recorded Sex Assigned at Not on file Legal Sex Male 1:09 PM CDT Gender Identity Not on file Sexual Orientation Not on file documented as of this encounter Miscellaneous Notes * Cerner Conversion Note - Mg Ritchie MD - 05/28/2018 5:34 PM CDT Patient Education Materials Follows: Groin Site Care Refer to this sheet [...] 05/14/2012 Document Reviewed: 03/25/2011 ExitCare? Patient Information ?2013 [employer]. Pharmacology Moderate Conscious Sedation, Adult, Care After These [...] you are awake and alert. ??? Take mlcm-ewc-fbtwbrw and prescription medicines only as told by [...] 12/11/2013 Document Revised: 07/25/2016 Document Reviewed: 06/11/2016 Rift.io Interactive Patient Education ? 2017 Rift.io Inc. Procedures Cardiac Ablation Cardiac ablation is a procedure to stop some heart tissue from causing problems. The heart has many electrical connections. Sometimes these connections cause the heart to beat very fast or irregularly. Removing some of the problem areas can improve heart rhythm or make it normal. Ablation is done for people who: ??? Have Ymnma-Flcgakrlc-Ubodi syndrome. ??? Have other fast heart rhythms [...] 10/23/2013 Document Revised: 07/28/2016 Document Reviewed: 07/18/2013 ElseMoxe Health Interactive Patient Education ? 2017 Rift.io Inc. documented in this encounter Plan of Treatment Not on file documented as of this encounter Visit Diagnoses Not on filedocumented in this encounter
--- OUTSIDE RECORDS SUMMARY | 2025-01-08 15:14 | XMS_ITS | Encounter Summary ---
Author Organization [employer] ([place], [place], [place], [place], [place]) Address [address] [place] [address] Care Team Providers Care Care Partner Name Role Phone Unavailable Primary Care Provider Unavailabl e Encounter Details Date Type Department Care Team (Late st Contact Info) Description 04/16/2018 Transcribed Document [facility] [place] [facility] [place] [address] ProviderMg MD [facility] [place] [address] Social History Tobacco Use Types Packs/Day Years Used Date Smoking Tobacco: Never Assessed Sex and Gender Information Value Date Recorded Sex Assigned at Not on file Legal Sex Male 1:09 PM CDT Gender Identity Not on file Sexual Orientation Not on file documented as of this encounter Miscellaneous Notes * Cerner Conversion Note - Historical ProviderMD - 04/16/2018 7:13 PM SHIPPING AND RECEIVING COORDINATOR Event Note Entered On: 04/16/2018 19:14 EST Performed On: 04/16/2018 19:13 EST by CHARLA PHILLIPS RN Event Note Event Date/Time : 04/16/2018 19:13 EST Event Location : Assigned room Description of Event : Dr. Hobbs stated to stop amiodarone gtt because of blood pressure. Didn't DC order in case need to restart. CHARLA PHILLIPS, MARYCARMEN - 04/16/2018 19:13 EST Electronically signed by Jackie [facility] Conversion Illuminator Cerner at 06/19/2022 10:56 PM CDT documented in this encounter Plan of Treatment Not on file documented as of this encounter Visit Diagnoses Not on filedocumented in this encounter
--- OUTSIDE RECORDS SUMMARY | 2025-01-08 15:14 | XMS_ITS | Encounter Summary ---
Author Organization [employer] ([place], [place], [place], [place], [place]) Address [address] [place] [address] Care Team Providers Care Ticketing Clerk Name Role Phone Unavailable Primary Care Provider Unavailabl e Encounter Details Date Type Department Care Team (Late st Contact Info) Description 04/20/2018 Transcribed Document [facility] [place] [facility] [address] ProviderMg MD [facility] [place] [address] Social History Tobacco Use Types Packs/Day Years Used Date Smoking Tobacco: Never Assessed Sex and Gender Information Value Date Recorded Sex Assigned at Not on file Legal Sex Male 1:09 PM CDT Gender Identity Not on file Sexual Orientation Not on file documented as of this encounter Miscellaneous Notes * Cerner Conversion Note - Historical ProviderMD - 04/20/2018 5:00 AM LAUNDERETTE ATTENDANT Chart Check - Review Order Profile Entered On: 04/20/2018 5:45 EST Performed On: 04/20/2018 5:00 EST by JB GUTIERREZ RN Chart Check Chart Reviewed Date and Time : 04/20/2018 5:45 EST Powerplans Initiated/Discontinued as Appropriate : Yes All Active Orders Reviewed : Yes JB GUTIERREZ RN - 04/20/2018 5:45 EST Electronically signed by Jackie [facility] Conversion Service Clerk Cerner at 06/19/2022 11:09 PM CDT documented in this encounter Plan of Treatment Not on file documented as of this encounter Visit Diagnoses Not on filedocumented in this encounter
--- OUTSIDE RECORDS SUMMARY | 2025-01-08 15:14 | XMS_ITS | Encounter Summary ---
Author Organization [employer] ([place], [place], [place], [place], [place]) Address [address] [place] [address] Care Team Providers Care Pharmaceutical Operator Name Role Phone Unavailable Primary Care Provider Unavailabl e Encounter Details Date Type Department Care Team (Late st Contact Info) Description 04/17/[address] [facility] [place] Family Medicine [facility] [place] [address] ProviderMg MD [address] [place] [address] Social History Tobacco Use Types Packs/Day Years Used Date Smoking Tobacco: Never Assessed Sex and Gender Information Value Date Recorded Sex Assigned at Not on file Legal Sex Male 1:09 PM CDT Gender Identity Not on file Sexual Orientation Not on file documented as of this encounter Miscellaneous Notes * Cerner Conversion Note - Mg ProviderMD - 04/17/2018 6:44 PM TELEMARKETING FUNDRAISER [address] [place] [address] Patient Copy Patient Information: Name: JOSE PEARSON Current Date: 04/17/2018 18:44:56 : 1970 Patient Address: [address] [place] [id number] Patient Attending Physician: KATY FRIAS MD-CAR Primary Care Provider: HUMA YARBROUGH (REF)JAYNE Primary Care Provider Discharge Diagnosis: Cardiac rhythm disturbance; Hypotension; Scalp contusion; Syncope Weight on Admission: 229 lb, 0 oz Weight at Discharge: 228 lb, 4 oz Comment: Discharge Instructions: Immunizations Documented During Stay: No [...] nasal (fluticasone 50 mcg/inh nasal spray) 1 [place](s) Nostrils Both Every Day. furosemide (Lasix 40 [...] may report side effects to FDA at 0-448-IQL-2388. What other drugs will affect dofetilide? Other drugs may interact with dofetilide, including prescription and [id number] medicines, vitamins, and herbal products. Tell each [...] to ensure that the information provided by [employer]. ('[employer]') is accurate, up-to-date, and complete, but no guarantee is made to that effect. Drug information contained herein may be time sensitive. [employer] information has been compiled for use by healthcare practitioners and consumers in the [place] and therefore [employer] does not warrant that uses outside of the [place] are appropriate, unless specifically indicated otherwise. [employer] drug information does not endorse drugs, diagnose patients or recommend therapy. [employer] drug information is an informational resource designed [...] effective or appropriate for any given patient. [employer] does not assume any responsibility for any aspect of healthcare administered with the aid of information [employer] provides. The information contained herein is not intended to cover all possible uses, directions, precautions, warnings, drug interactions, allergic reactions, or adverse effects. If you have questions about the drugs you are taking, check with your doctor, nurse or pharmacist. Copyright 6311-0858 [employer]. Version: 4.01. Revision Date: 06/17/2015. CIGARETTE SMOKING: The facts are clear, cigarette smoking will shorten your life. Smoking can cause many illnesses along the way. As a healthcare provider, we recommend that you stop smoking. Assistance with quitting is available by contacting 6-053-DLCY-NOW. This is a free resource providing counseling, [...] Be sure to sign up for the [employer] patient portal, which gives you 26/09 access to your medical information ??? including these discharge instructions ??? using your computer, smartphone, or tablet. Just go to Findline to get started. Questions? Call . [facility] would like to thank you for allowing us to assist you with your healthcare needs. ANASTASIA Rich DENNIS PAUL, (or wholesale representative) have received the above patient education materials/instructions and have verbalized understanding: Patient Signature _ Date/Time Patient Inbound Sales Advisor Signature (if needed) Date/Time Clinician/Hospital Inbound Sales Advisor Signature (if needed) Date/Time Electronically signed by Jackie, [facility] Conversion Hand Lacer Cerner at 06/19/2022 11:09 PM CDT documented in this encounter Plan of Treatment Not on file documented as of this encounter Visit Diagnoses Not on filedocumented in this encounter
--- OUTSIDE RECORDS SUMMARY | 2025-01-08 15:14 | XMS_ITS | Encounter Summary ---
Author Organization [employer] ([place], [place], [place], [place], [place]) Address [address] [place] [address] Care Team Providers Care Motor Adjuster Name Role Phone Unavailable Primary Care Provider Unavailabl e Encounter Details Date Type Department Care Team (Late st Contact Info) Description 04/14/2018 Transcribed Document [facility] [place] Family Medicine [facility] [place] [address] ProviderMg MD [facility] [place] [address] Social History Tobacco Use Types Packs/Day Years Used Date Smoking Tobacco: Never Assessed Sex and Gender Information Value Date Recorded Sex Assigned at Not on file Legal Sex Male 1:09 PM CDT Gender Identity Not on file Sexual Orientation Not on file documented as of this encounter Miscellaneous Notes * Cerner Conversion Note - Mg Ritchie MD - 04/14/2018 7:30 PM 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 As a result, there may be some typos and/or non-sensical language introduced into the chart that either are overlooked in editing/review and/or that I am unable to correct as patient care needs require me to prioritize my attention to bedside patient care rather than electronic documentation.. . History source: Patient, spouse. Arrival mode: Private vehicle. History limitation: None. Additional information: Chief Complaint from Nursing Triage Note : Chief Complaint 04/14/2018 19:04 EST Chief Complaint Pacemaker fired yesterday, states chest feels funny . reports + LOC x 30 sec. . History of Present Illness Mr. Pearson, presents via POV to room #8, with in attendance. The history is provided by both he and his because he had a syncopal episode and was unaware of these events that occurred. He states that he has a pacemaker defibrillator and has been recently on sotalol and has had an increase in the dosage from 80 mg 220 mg. This was to suppress frequent ventricular breakthrough. He was sitting in a chair outside yesterday when he just slumped over and went face first onto the concrete floor. He was unconscious for approximately 30 seconds and witnessed that his internal defibrillator went off while he was face down and then when she was rolling him over onto his back it went off again. He came to shortly thereafter and has just not been feeling well since. He is on blood thinners and had a nice little hematoma to his scalp but this is gone down. Since that time he has been hypotensive. He states that he feels strange in his chest. He reports that they are decreasing his Coreg to help increase his blood pressure and increasing his sotalol. The patient presents with syncope. The onset was 1 days ago. The course/duration of symptoms is resolved: lasted 30 seconds. The location where the incident occurred was at home. The exacerbating factor is none. The relieving factor is lying down. Risk factors consist of coronary artery disease, hypertension, obesity and age. Prior episodes: frequent and multiple ED visits. Therapy today: none. Preceding symptoms: none. Associated symptoms: chest pain and dizziness. Associated injury to the contusion, abrasion location: scalp. Additional history: See note above.. Review of Systems Constitutional symptoms: No fever, no chills, no weakness, no fatigue, no decreased activity. Skin symptoms: Abrasions, no jaundice, no rash, no pruritus, no petechiae. Eye symptoms: Vision unchanged. ENMT symptoms: No sore throat, no nasal congestion. Respiratory symptoms: No shortness of breath, no orthopnea, no cough. Cardiovascular symptoms: Chest pain, No palpitations, Gastrointestinal symptoms: No abdominal pain, no nausea, no vomiting, no diarrhea, no constipation, no rectal bleeding. Genitourinary symptoms: No dysuria, no hematuria, no discharge, no testicular pain. Musculoskeletal symptoms: No back pain, no Muscle pain, no Joint pain. Neurologic symptoms: Altered level of consciousness, no headache, no dizziness, no numbness, no tingling, no weakness. Psychiatric symptoms: No anxiety, no depression. Endocrine symptoms: No polyuria, no polydipsia. Hematologic/Lymphatic symptoms: Bleeding tendency negative, bruising tendency negative, no petechiae. Allergy/immunologic symptoms: No recurrent infections, no impaired immunity. Health Status Allergies: Allergic Reactions (Selected) No Known Medication Allergies. Medications: (Selected) Prescriptions Prescribed sotalol 120 mg oral tablet: 1 Tab, Oral, BID, 60 Tab, 0 Refill(s) Documented Medications Documented Entresto [...] Refill(s) fluticasone 50 mcg/inh nasal spray: 1 [place], Nostrils Both, Daily, 0 Refill(s) montelukast 10 mg oral tablet: 1 Tab, Oral, Daily, 0 Refill(s) pravastatin 80 mg oral tablet: 1 Tab, Oral, At Bedtime, 0 Refill(s) spironolactone: 25 mg, Oral, Daily, 0 Refill(s). Immunizations: Up to date. Past Medical/ Family/ Social History Medical history Cardiovascular: coronary artery disease, hypertension, angina, myocardial infarction, congestive heart failure, atrial fibrillation, paced rhythm, hyperlipidemia. Respiratory: asthma, sleep apnea. Endocrine: Morbid obesity. Neurological: cerebral vascular accident. Surgical history: AICD. right ankle pins & rods. heart cath. Hernia repair. heart attack. chf. cva.. Family history: Reviewed as documented in chart. Social history: Social & Psychosocial Habits Alcohol 09/02/2014 Total [...] Hand Smoke Exposure No . Physical Examination Vital Signs Vital Measurements 04/14/2018 19:04 EST Temperature Source Tympanic Temperature Mode Fahrenheit Temperature, Fahrenheit 98.1 Deg F Clinical Temperature, C 36.7 Deg C Peripheral Pulse Rate 91 bpm Respiratory Rate 18 Breaths/Min Systolic Blood Pressure 89 mmHg LOW Diastolic Blood Pressure 62 mmHg Oxygen Saturation 97 % . Height and Weight 04/14/2018 19:04 EST Height Source Stated Height Entry Format [place] Height/Length, ICELANDIC (ft) 6 ft Height/Length ICELANDIC 0 Inch CLINICALHEIGHT 182.88 cm [place] Body Weight 76.59 kg Weight Source, ED Standing scale Weight Entry Format [place] Weight [place]ian lb 229 lb CLINICALWEIGHT 104.09 kg Body Surface Area (BSA) 2.26 m2 Body Mass Index 31.1 kg/m2 HI . Oxygen saturation. General: Alert, no acute distress, well nourished, calm, cooperative, well hydrated. Skin: Warm, dry, pink, no pallor, no rash. Head: Normocephalic, . Neck: Supple, trachea midline, no tenderness, no JVD. Eye: Pupils are equal, round and reactive to light, extraocular movements are intact, normal conjunctiva. Ears, nose, mouth and throat: Tympanic membranes clear, oral mucosa moist, no pharyngeal erythema or exudate. Cardiovascular: Regular rate and rhythm, No murmur, Normal peripheral perfusion, No edema. Respiratory: Lungs are clear to auscultation, respirations are non-labored, breath sounds are equal, Symmetrical chest wall expansion. Chest wall: No tenderness, No deformity. Back: Nontender, Normal range of motion. Musculoskeletal: Normal ROM, normal strength, no tenderness, no swelling. Gastrointestinal: Soft, Nontender, Non distended, Normal bowel sounds, No organomegaly. Genitourinary: Exam deferred. Neurological: Alert and oriented to person, place, time, and situation, No focal neurological deficit observed. Lymphatics: No lymphadenopathy. Psychiatric: Cooperative, appropriate mood & affect. Medical Decision Making Differential Diagnosis: Syncope, dysrhythmia, gastrointestinal bleed, dehydration, orthostatic hypotension, dizziness. Documents reviewed: Emergency department nurses' notes, emergency department records, prior records. Orders Include Previous Orders (Selected) Inpatient Orders Ordered Ambulate: Blood Pressure: Cardiac Education: Cardiac Monitoring: Chest Pain Instructions: Colace: 100 mg, Oral, BID Consult to Cardiac Rehabilitation: Consult to Dietitian: DVT VTE Prophylaxis Education: ECG: EKG: Facility Protocol: Intake and Output: Normal Saline 1,000 mL: 10 mL/Hr, IntraVENous Normal Saline Flush: 10 mL, IV Push, Q12H Normal Saline Flush: 10 mL, IV Push, See Comment, PRN: IV Use Notify Provider Intake and Output: Notify Provider Vital Signs: Notify Provider of Change in Patient Condition: Notify Provider: OT Evaluation and Treatment: Oxygen Therapy: PT Evaluation and Treatment: Place in Observation: ProBNP: Pulse Oximetry Spot Check (Nursing): Saline Lock Insert: Tylenol: 650 mg, Oral, Q4H, PRN: Pain (Mild 1-3) Vital Signs: Weight (Routine): Zofran: 4 mg, IV Push, Q6H, PRN: Nausea acetaminophen-HYDROcodone 325 mg-5 mg oral tablet: 1 Tab, Oral, Q4H, PRN: Pain (Moderate 4-6) magnesium sulfate: 2 Gram, IV Piggyback, On-CALL morphine: 2 mg, IV Push, Q5Min, PRN: Pain (Severe 7-10) potassium chloride 10 mEq/50 mL intravenous solution: 10 mEq, 100 mL, 100 mL/Hr, IV Piggyback, 1-Time potassium chloride 20 mEq oral tablet, extended release: 40 mEq, 2 Tab, Oral, 1-Time, PRN: Other (See Comment) potassium chloride 20 mEq oral tablet, extended release: 60 mEq, 3 Tab, Oral, On-CALL Ordered (Dispatched) CBC w/ Auto Diff: CMP Comprehensive Metabolic Panel: Lipid Panel: Magnesium Level: Osmolality Serum: Osmolality Urine: PT/INR Prothrombin Time: PTT: Sodium Level Urine Random: TSH Thyroid Stimulating Hormone: Troponin I Ultra: Urinalysis without Microscopic: Ordered (Exam Completed) CR Chest 1 Vw Portable: Cancelled (Canceled) BMP Basic Metabolic Panel: CBC no Diff (Hemogram): Completed .Automated Differential: CBC w/ Auto Diff: CK Creatine Kinase: CMP Comprehensive Metabolic Panel: CT Head WO: ED Adult Fall Risk Assessment: ED Adult Triage: ED Clinical Reconciliation: ED vegetable vendor: Normal Saline Bolus: 1,000 mL, 100 mL/Hr, IV Piggyback, 1-Time PT/INR Prothrombin Time: PTT: ProBNP: Saline Lock Insert: Troponin I Ultra: Discontinued Troponin I Ultra: . Results review: Lab results : Lab Results 04/14/2018 19:44 EST Sodium Level 136 mmol/L Potassium Level 4.0 mmol/L Chloride Level 103 mmol/L Carbon Dioxide Level 25 mmol/L Anion Gap 12 Glucose Level 116 mg/dL HI Blood Urea Nitrogen 21 mg/dL Creatinine Level 0.81 mg/dL eGFR >60 mL/min/1.73m2 eGFR NonAfrican >60 mL/min/1.73m2 Bun/Creatinine 25.9 HI Calcium Level 8.8 mg/dL Protein Total 7.5 Gram/dL Albumin Level 3.4 Gram/dL Globulin 4.1 Gram/dL A/G Ratio 0.8 LOW Bilirubin Total 1.5 mg/dL HI Alk Phos 74 Units/Liter AST 24 Units/Liter ALT 36 Units/Liter CK 44 Units/Liter Troponin I Ultra <0.015 ng/mL ProBNP 1,892 pg/mL HI WBC 6.0 K/uL RBC 4.95 Million/uL Hgb 14.2 Gram/dL Hct 42.0 % MCV 84.8 fL MCH 28.7 pg MCHC 33.8 Gram/dL Platelet Count 284 K/uL MPV 9.2 fL LOW RDW 12.5 % Neut % 53.7 % Neut # 3.24 K/uL Lymph % 24.0 % Lymph # 1.45 K/uL [place] % 19.4 % HI [place] # 1.17 K/uL HI Eos % 2.0 % Eos # 0.12 K/uL Baso % 0.7 % Baso # 0.04 K/uL Slide Review No IG# 0 x10(3)/uL IG% 0 % PT 14.3 Second(s) HI INR 1.4 HI PTT 33.3 Second(s) HI . Chest X-Ray: Time reported 04/14/2018 21:02:00, no acute disease process, interpretation by Emergency Physician. Radiology results: Radiology Results (Last 48 hours) [id number] -- 04/14/2018 19:00 CT Head WO (04/14/2018 20:12) Result: STUDY: CT Head without contrastCLINICAL HISTORY: SyncopeFINDINGS: Multiple contiguous transaxial slices through the head wereobtained without the intravenous administration of contrast with coronalreformatted images. This study was performed with techniques to keepradiation doses as low as reasonably achievable, (ALARA). Individualizeddose reduction techniques using automated exposure control or adjustmentof mA and/or kV according to the patient size were employed.The brain parenchyma is normal in morphology and attenuation withoutacute infarct, hemorrhage or mass effect. Ventricles are symmetric. Nosinus air fluid level is seen. The calvarium is intact.IMPRESSION: No acute intracranial abnormality. . Procedure Critical care note Total time: 30 minutes spent engaged in work directly related to patient care and/ or available for direct patient care, exclusive of procedure time. Critical condition(s) addressed for impending deterioration include: cardiovascular. Associated risk factors: hypotension, dysrhythmia. Management: bedside assessment, Interpretation (chest x-ray, electrocardiogram, blood pressure), Interventions hemodynamic management, Case review medical practice assistant, Alternate history family. Performed by: self. Impression and Plan Diagnosis Syncope - Discharge, Emergency medicine, Medical Cardiac rhythm disturbance - Discharge, Emergency medicine, Medical Hypotension - Discharge, Emergency medicine, Medical Scalp contusion - Discharge, Emergency medicine, Medical Calls-Consults - 04/14/2018 21:15:00 , KATY FRIAS MD-CAR, Cardiology, phone call, recommends admitting to tele. under gen. admis. orders keep on same meds. and he will see in am unless needed sooner.. Plan Condition: Stable. Counseled: Patient, Family, Regarding diagnosis, Regarding diagnostic results, Regarding treatment plan, Patient indicated understanding of instructions. Electronically signed by Morales Mejia Conversion Product Distribution Specialist Cerner at 06/19/2022 11:02 PM CDT documented in this encounter Plan of Treatment Not on file documented as of this encounter Visit Diagnoses Not on filedocumented in this encounter
--- OUTSIDE RECORDS SUMMARY | 2025-01-08 15:14 | XMS_ITS | Encounter Summary ---
Author Organization [employer] ([place], [place], [place], [place], [place]) Address [address] [place] [address] Care Team Providers Care Methods Engineer Name Role Phone Unavailable Primary Care Provider Unavailabl e Encounter Details Date Type Department Care Team (Late st Contact Info) Description 04/15/2018 Transcribed Document [facility] [place] [address] [place] [address] ProviderMg MD [place] [address] Social History Tobacco Use Types Packs/Day Years Used Date Smoking Tobacco: Never Assessed Sex and Gender Information Value Date Recorded Sex Assigned at Not on file Legal Sex Male 1:09 PM CDT Gender Identity Not on file Sexual Orientation Not on file documented as of this encounter Miscellaneous Notes * Cerner Conversion Note - Historical ProviderMD - 04/15/2018 10:08 AM ACT TUTOR Therapy Screen, PT Entered On: 04/15/2018 10:09 EST Performed On: 04/15/2018 10:08 EST by Anthony Blanchard Physical Therapist Therapy Screen, PT Medical Chart Reviewed : Yes Person Providing Information : Patient Screen Completed : Yes Recommendation for Evaluation, PT : None Recommendations Upon Discharge : None Additional Therapy Screen Comment : Pt is performing all functional tasks independently and safely. No skilled PT is currently necessary. Will sign-off. Anthony Blanchard, Physical Therapist - 04/15/2018 10:08 EST Electronically signed by Jackie [facility] Conversion Working Foreman Cerner at 06/19/2022 11:09 PM CDT documented in this encounter Plan of Treatment Not on file documented as of this encounter Visit Diagnoses Not on filedocumented in this encounter
--- OUTSIDE RECORDS SUMMARY | 2025-01-08 15:14 | XMS_ITS | Encounter Summary ---
Author Organization [employer] ([place], [place], [place], [place], [place]) Address [address] [place] [address] Care Team Providers Care Head Of History Name Role Phone Unavailable Primary Care Provider Unavailabl e Encounter Details Date Type Department Care Team (Late st Contact Info) Description 06/25/2018 Transcribed Document [facility] [place] Family Medicine [facility] [place] [address] ProviderMg MD [facility] [place], [place] [id number] Social History Tobacco Use Types Packs/Day Years Used Date Smoking Tobacco: Never Assessed Sex and Gender Information Value Date Recorded Sex Assigned at Not on file Legal Sex Male 1:09 PM CDT Gender Identity Not on file Sexual Orientation Not on file documented as of this encounter Miscellaneous Notes * Cerner Conversion Note - Historical ProviderMD - 06/25/2018 9:42 PM CDT Event Note Entered On: 06/25/2018 21:42 EDT Performed On: 06/25/2018 21:42 EDT by ANUSHA YATES RN Event Note Event Date/Time : 06/25/2018 21:42 EDT Description of Event : Report to [facility] ANUSHA YATES RN - 06/25/2018 21:42 EDT documented in this encounter Plan of Treatment Not on file documented as of this encounter Visit Diagnoses Not on filedocumented in this encounter
--- OUTSIDE RECORDS SUMMARY | 2025-01-08 15:14 | XMS_ITS | Encounter Summary ---
Author Organization [employer] ([place], [place], [place], [place], [place]) Address [address] [place] [address] Care Team Providers Care Sign Fabricator Name Role Phone Unavailable Primary Care Provider Stefan pond Encounter Details Date Type Department Care Team (Late st Contact Info) Description 04/15/2018 Transcribed Document [facility] [place] Family Medicine [facility] [place] [address] ProviderMg MD [facility] [place], [place] [address] Social History Tobacco Use Types Packs/Day Years Used Date Smoking Tobacco: Never Assessed Sex and Gender Information Value Date Recorded Sex Assigned at Not on file Legal Sex Male 1:09 PM CDT Gender Identity Not on file Sexual Orientation Not on file documented as of this encounter Miscellaneous Notes * [employer]ner Conversion Note - Historical ProviderMD - 04/15/2018 2:00 AM HEALTH INSURANCE ASSESSOR Environmental Analyst Details Entered On: 04/15/2018 6:48 EST Performed On: 04/15/2018 2:00 EST by Caridad Clements RN Order Details Transport Mode Order Detail : Ambulatory Isolation Precautions Order Detail : Standard Precautions Order Detail : N/A IV Order Detail : 1 Oxygen Order Detail : 0 Nurse Collect Order Detail : 0 Lift/Transfer : Independent Central Line Order Detail : No Room Service : Appropriate Caridad Clements, RN - 04/15/2018 6:48 EST documented in this encounter Plan of Treatment Not on file documented as of this encounter Visit Diagnoses Not on filedocumented in this encounter
--- OUTSIDE RECORDS SUMMARY | 2025-01-08 15:14 | XMS_ITS | Encounter Summary ---
Author Organization [employer] ([place], [place], [place], [place], [place]) Address [address] [place] [address] Care Team Providers Care Ambulance Mechanic Name Role Phone Unavailable Primary Care Provider Unavailabl e Encounter Details Date Type Department Care Team (Late st Contact Info) Description 05/28/2018 Transcribed Document [facility] [place] Family Medicine [address] [place] [address] ProviderMg MD [facility] [place] [address] Social History Tobacco Use Types Packs/Day Years Used Date Smoking Tobacco: Never Assessed Sex and Gender Information Value Date Recorded Sex Assigned at Not on file Legal Sex Male 1:09 PM CDT Gender Identity Not on file Sexual Orientation Not on file documented as of this encounter Miscellaneous Notes * Cerner Conversion Note - Historical ProviderMD - 05/28/2018 4:48 PM CDT Nursing Discharge Summary Entered On: 05/28/2018 16:49 EDT Performed On: 05/28/2018 16:48 EDT by ANUSHA YATES RN Discharge Documentation Patient Disposition, General : Discharge Discharge To : Home with ambulatory/outpatient follow-up Mode Of Departure, General Discharge : Private vehicle Accompanied By, Discharge : Spouse IV Discontinued : Yes Personal Belongings With Patient : Yes Patient Education Completed : Yes Teaching Method : Demonstration, Explanation Teaching Evaluation : Returns demonstration, Verbalizes understanding ANUSHA YATES RN - 05/28/2018 16:48 EDT documented in this encounter Plan of Treatment Not on file documented as of this encounter Visit Diagnoses Not on filedocumented in this encounter
--- OUTSIDE RECORDS SUMMARY | 2025-01-08 15:14 | XMS_ITS | Encounter Summary ---
Author Organization [employer] ([place], [place], [place], [place], [place]) Address [address] [place] [address] Care Team Providers Care Director Of Video Analytics Name Role Phone Unavailable Primary Care Provider Unavailabl e Encounter Details Date Type Department Care Team (Late st Contact Info) Description 06/25/2018 Transcribed Document [facility] [place] Family Medicine [facility] [place] [address] ProviderMg MD [facility] [place] [address] Social History Tobacco Use Types Packs/Day Years Used Date Smoking Tobacco: Never Assessed Sex and Gender Information Value Date Recorded Sex Assigned at Not on file Legal Sex Male 1:09 PM CDT Gender Identity Not on file Sexual Orientation Not on file documented as of this encounter Miscellaneous Notes * Cerner Conversion Note - Mg ProviderMD - 06/25/2018 11:09 AM CDT Pre Procedure Adult Entered On: 06/25/2018 11:14 EDT Performed On: 06/25/2018 11:09 EDT by YOEL SANTANA RN Height and Weight, Clinical Dosing Height Source : Stated Height Entry Format : [place] Height, Feet : 6 ft(Converted to: 183 cm, 72 Inch) Height, Inches : 0 Inch(Converted to: 0 ft 0 Inch, 0.00 cm) Clinical Height : 182.88 cm Weight Source : Standing scale Weight Entry Format : [place] Clinical Dosing Weight : 106.36 kg Weight, Pounds : 234 lb Body Surface Area (BSA) : 2.28 m2 Body Mass Index : 31.8 kg/m2 (HI) [place] Body Weight : 77 kg YOEL SANTANA RN - 06/25/2018 11:09 EDT Health Histories Smoking Status : Never (less than 100 in lifetime; none in last 30 days) Smokeless Tobacco Status : Smokeless tobacco user within last 30 days Desires Tobacco Cessation Medication : No Reason for No Tobacco Cessation Medication : Refuses FDA approved medications YOEL SANTANA RN - 06/25/2018 11:09 EDT Social History (As Of: 06/25/2018 11:14:27 EDT) Tobacco: Use in Last 12 Months: [...] (Last Updated: 05/28/2018 10:30:15 EDT by BRITTON OSBORNE RN) Substance Abuse: Drug Use Hx: No. [...] Region : No Tuberculosis Symptoms : None YOEL SANTANA RN - 06/25/2018 11:09 EDT Anesthesia/Transfusion History Family History of Anesthesia Reaction : No prior transfusion(s) Transfusion History : Prior anesthesia reaction Type of Anesthesia Reaction : Excessive somnolence Family History of Anesthesia Reaction : None YOEL SANTANA RN - 06/25/2018 11:09 EDT Functional Assessment Living Situation : Home Patient Lives With : Spouse Current Home Treatments : None YOEL SANTANA RN - 06/25/2018 11:09 EDT Psychosocial History Chronic/Terminal Illness w/Freq Visits : No Do You Have a History of the Following? : Patient denies history Currently in Unsafe Situation : No Tried to Harm Yourself in the Past? : No Thoughts of Harming/Killing Yourself : No YOEL SANTANA RN - 06/25/2018 11:09 EDT Advance Directive Patient has Advance Directive *Q : No, patient refuses Advance Directive information YOEL SANTANA RN - 06/25/2018 11:09 EDT Teaching/Learning Assessment Barriers To Learning : None evident Individuals Taught : Patient, Spouse Readiness to Learn : Cooperative Readiness to Learn : Explanation Learning Style Preferences Patient : Verbal explanation Learning Style Preferences Family : Verbal explanation YOEL SANTANA RN - 06/25/2018 11:09 EDT Education Topics, Periop Preadmission Perioperative Education Grid Arrival Time/Place : Verbalizes understanding CAUTI : Verbalizes understanding Central Lines : Verbalizes understanding CHG Preoperative Bathing/Cloths : Verbalizes understanding Falls : Verbalizes understanding Incentive Spirometry : Verbalizes understanding Infection Control : Verbalizes understanding IV's : Verbalizes understanding NPO Status/Directions : Verbalizes understanding Pain Management : Verbalizes understanding Postoperative Care Preparations : Verbalizes understanding Preprocedure Preparations : Verbalizes understanding Preprocedure Tests/Labs : Verbalizes understanding Remove Body Piercings : Verbalizes understanding Responsible Adult : Verbalizes understanding SNE's : Verbalizes understanding Take/Hold Medications Pre-Procedure : Verbalizes understanding Other : Verbalizes understanding YOEL SANTANA RN - 06/25/2018 11:09 EDT General Info Arrived From : Home Mode of Arrival on Unit : Ambulatory Patient Arrival Date/Time : 06/25/2018 10:30 EDT Legal Guardian : Spouse Support Person/Patient Clinical Nursing Coordinator : Yes Support Person/Pt Rep Name : Deidre Pearson-- Support Person/Pt Rep Contact Information : [phone] Want Family/Rep/Phys Notified of Admit : No Emergency Contact #1 : Deidre Pearson Emergency Contact #1 Emergency Contact #1 Relationship : Emergency Contact #2 : na Emergency Contact #2 Phone Number : na Emergency Contact #2 Relationship : na Chief Complaint : ep/ablation Information Obtained From : Patient, Spouse Primary Language : [place]uran Preferred Communication Mode : Verbal Communication Barrier : None YOEL SANTANA RN - 06/25/2018 11:09 EDT Vital Measurements Temperature Source : Temporal artery scanning Temperature Mode : Fahrenheit Temperature, Fahrenheit : 97.2 Deg F Clinical Temperature, C : 36.2 Deg C Peripheral Pulse Rate : 71 bpm Respiratory Rate : 16 Breaths/Min Systolic Blood Pressure : 102 mmHg Diastolic Blood Pressure : 69 mmHg Oxygen Saturation : 98 % YOEL SANTANA RN - 06/25/2018 11:09 EDT Sleep Apnea Risk Assmt Hx of Obstructive Sleep Apnea Diagnosis : No Snore Loudly : Yes Tired, Fatigued, or Sleepy During Day : Yes Observed Stopping Breathing During Sleep : No Have/Are Being Treated for Hypertension : Yes BMI Greater Than 35 kg/m2 : Yes Age over 50 Years Old : No Neck Circumference Greater Than 40 cm : Yes Gender Male : Yes STOP-BANG Sleep Apnea Risk Level Score : 6 YOEL SANTANA RN - 06/25/2018 11:09 EDT Mike Scale Mike Sensory Perception : No impairment Mike Moisture : Rarely moist Mike Activity : Walks frequently Mike Mobility : No limitation Mike Nutrition : Excellent Mike Friction and Shear : No apparent problem Mike Score : 23 YOEL SANTANA RN - 06/25/2018 11:09 EDT Pain Assessment Pain Assessment : Initial assessment Pain Scale Used : 0-10 Scale YOEL SANTANA RN - 06/25/2018 11:09 EDT Fall Risk Scales ABCs Fall Injury Risk Identification : None ENGLISH Hx Falls Immediate/Within 3 Months : No English Secondary Diagnosis : No ENGLISH Use of Ambulatory Aid : None ENGLISH IV Therapy or IV Access : Yes English Gait/Transferring : Normal, bedrest, immobile English Mental Status : Oriented to own ability English Fall Risk Score : 20 ENGLISH Fall Scale Risk Level : 0-24 Low Risk [place] Fall Interventions : Adequate lighting, Assistive devices within reach, Bed in low position, Call device within reach, Fall prevention handout/education per facility policy, Frequent orientation to call device, Frequent orientation to surroundings, Hourly comfort/safety rounds, Non-slip footwear, Personal items within reach, Reinforced to call for assistance before getting out of bed, Room free of clutter/spills, Upper side-rails up, Wheels locked, Wires/Cords secured YOEL SANTANA RN - 06/25/2018 11:09 EDT Valuables and Belongings Valuables and Belongings : Clothing, Jewelry, Personal devices, No comfort items, No assistive devices, No respiratory devices, No medications Clothing : Common streetwear Clothing Disposition : With family Personal Device Disposition : With patient Jewelry : Ring Jewelry Disposition : With family Personal Devices : Dentures, partial plate YOEL SANTANA RN - 06/25/2018 11:09 EDT Pain Scale Intensity : 0 YOEL SANTANA RN - 06/25/2018 11:09 EDT Image 4 - Images currently included in the form version of this document have not been included in the text rendition version of the form. documented in this encounter Plan of Treatment Not on file documented as of this encounter Visit Diagnoses Not on filedocumented in this encounter
--- OUTSIDE RECORDS SUMMARY | 2025-01-08 15:14 | XMS_ITS | Encounter Summary ---
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 Name Role Phone Unavailable Primary Care Provider Unavailabl e Encounter Details Date Type Department Care Team (Late st Contact Info) Description 04/14/2018 Transcribed Document [facility] [place] Family Medicine [facility] [place] [address] ProviderMg MD [place] [address] Social History Tobacco Use Types Packs/Day Years Used Date Smoking Tobacco: Never Assessed Sex and Gender Information Value Date Recorded Sex Assigned at Not on file Legal Sex Male 1:09 PM CDT Gender Identity Not on file Sexual Orientation Not on file documented as of this encounter Miscellaneous Notes * Cerner Conversion Note - Mg ProviderMD - 04/14/2018 7:00 PM 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 ED Assessment Entered On: 04/14/2018 19:37 EST Performed On: 04/14/2018 19:36 EST by Zora Renteria RN ED Quick Look Assessment Level of Consciousness : Alert, Awake Affect/Behavior : Appropriate, Calm, Cooperative Orientation : Oriented x 4 Skin Temperature : Warm Skin Description : Dry Zora Renteria RN - 04/14/2018 19:36 EST ED General-Functional Assess Preferred Communication Mode : Verbal Communication Barrier : None Primary Language : Argentine Any Spiritual/Cultural Needs or Requests : No Currently in Unsafe Situation : No Zora Renteria RN - 04/14/2018 19:36 EST Social Habits Smoking Status : 5-9 cigarettes (between 1/4 to 1/2 pack)/day in last 30 days Smokeless Tobacco Status : Never Desires Tobacco Cessation Medication : No Reason for No Tobacco Cessation Medication : ED/procedural patient only Desires Tobacco Cessation Calc : 1 Zora Renteria RN - 04/14/2018 19:36 EST Social History (As Of: 04/14/2018 19:37:33 EST) Tobacco: Use in Last 12 Months: [...] (Last Updated: 02/12/2017 17:32:08 EST by SERGEI GARCAI RN) Cardiovascular ASMT, ED Cardiovascular Assessment WDL : WDL with exceptions Cardiovascular Symptoms : Chest discomfort at rest, Syncope/Fainting at rest Heart Rhythm : Regular Nail Bed Color : [place] Chest Pain : Yes Zora Renteria RN - 04/14/2018 19:36 EST Pulses Grid Brachial Pulse, Left : 2+ normal Brachial Pulse, Right : 2+ normal Zora Renteria RN - 04/14/2018 19:36 EST Neck Vein Distention : Unable to visualize Edema Comment : syncope episode x1, funny feeling in chest Clubbing Present : No Heart Sounds : S1/S2 Zora Renteria RN - 04/14/2018 19:36 EST Respiratory Breath Sounds Assessment Grid All Lobes Breath Sounds : Clear Zora Renteria RN - 04/14/2018 19:36 EST documented in this encounter Plan of Treatment Not on file documented as of this encounter Visit Diagnoses Not on filedocumented in this encounter
--- OUTSIDE RECORDS SUMMARY | 2025-01-08 15:14 | XMS_ITS | Encounter Summary ---
Author Organization [employer] ([place], [place], [place], [place], [place]) Address [address] [place] [address] Care Team Providers Care Refractory Tile Helper Name Role Phone Unavailable Primary Care Provider Unavailabl e Encounter Details Date Type Department Care Team (Late st Contact Info) Description 04/15/2018 Transcribed Document [facility] [place] Family Medicine [facility] [place] [address] ProviderMg MD [address] [place] [id number] Social History Tobacco Use Types Packs/Day Years Used Date Smoking Tobacco: Never Assessed Sex and Gender Information Value Date Recorded Sex Assigned at Not on file Legal Sex Male 1:09 PM CDT Gender Identity Not on file Sexual Orientation Not on file documented as of this encounter Miscellaneous Notes * Cerner Conversion Note - Mg ProviderMD - 04/15/2018 2:01 AM 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 [address] [id number] Patient Information Name: JOSE PEARSON Age: 47 Years Date of : 1970 Arrival Time: 04/14/2018 19:00:00 Diagnosis Cardiac rhythm disturbance; Hypotension; Scalp contusion; Syncope Primary Care Physician: HUMA YARBROUGH (REFMD [place] Provider Information Primary Provider: TIARA VANCE MD Secondary Provider: JOSE PEARSON has been given the following list of patient education materials, prescriptions and follow-up instructions: Follow-up Instructions: Patient Education Materials: Allergies: No Known Medication Allergies Medication Information: Laboratory or Other Results This Visit (last charted value for your 04/14/2018 visit) Hematology 04/14/18 19:44:00 WBC: 6.0 K/uL -- Normal range between ( 3.9 and 10.0 ) RBC: 4.95 Million/uL -- Normal range between ( 4.63 and 6.08 ) Hct: 42.0 % -- Normal range between ( 40.1 and 51.0 ) Hgb: 14.2 Gram/dL -- Normal range between ( 13.7 and 17.5 ) Platelet Count: 284 K/uL -- Normal range between ( 163 and 369 ) MCH: 28.7 pg -- Normal range between ( 25.6 and 32.2 ) MCHC: 33.8 Gram/dL -- Normal range between ( 32.3 and 36.5 ) MCV: 84.8 fL -- Normal range between ( 79.0 and 94.8 ) Slide Review: No Eos %: 2.0 % -- Normal range between ( 1.0 and 7.0 ) Levy #: 1.17 K/uL -- Normal range between ( 0.24 and 0.82 ) Eos #: 0.12 K/uL -- Normal range between ( 0.04 and 0.54 ) Levy %: 19.4 % -- Normal range between ( 4.7 and 12.5 ) Baso %: 0.7 % -- Normal range between ( 0.0 and 1.0 ) Baso #: 0.04 K/uL -- Normal range between ( 0.01 and 0.08 ) RDW: 12.5 % -- Normal range between ( 11.6 and 14.4 ) Neut %: 53.7 % -- Normal range between ( 34.0 and 71.0 ) Neut #: 3.24 K/uL -- Normal range between ( 1.56 and 6.13 ) Lymph %: 24.0 % -- Normal range between ( 19.3 and 53.0 ) Lymph #: 1.45 K/uL -- Normal range between ( 1.18 and 3.74 ) MPV: 9.2 fL -- Normal range between ( 9.4 and 12.4 ) IG#: 0 x10(3)/uL IG%: 0 % -- Normal range between ( 0 and 1 ) Urinalysis 04/14/18 23:23:00 Urine Nitrite: Negative Urine Leukocyte Esterase: Negative Urine Appearance: Clear Urine Glucose Dipstick: Negative Urine Blood Dipstick: Negative Urine Type: U CleanCatch Urine Urobilinogen Dipstick: 1.0 EU/dL -- Normal range between ( 0.2 and 1.0 ) Urine Protein Dipstick: Negative Urine Color: DK YELLOW Urine Ketones Dipstick: Negative Urine pH Dipstick: 5.5 -- Normal range between ( 6.0 and 8.0 ) Urine Bilirubin Dipstick: Negative Urine Specific [place]: 1.020 -- Normal range between ( 1.005 and 1.030 ) Urine Chemistry 04/14/18 23:23:00 Sodium Ur [place]: 48 mMole/Liter General Chemistry 04/14/18 22:35:00 Creatinine Level: 0.71 mg/dL -- Normal range between ( 0.70 and 1.30 ) Sodium Level: 135 mmol/L -- Normal range between ( 136 and 146 ) Potassium Level: 3.9 mmol/L -- Normal range between ( 3.5 and 5.1 ) Chloride Level: 103 mmol/L -- Normal range between ( 102 and 112 ) Carbon Dioxide Level: 24 mmol/L -- Normal range between ( 21 and 32 ) Anion Gap: 12 -- Normal range between ( 9 and 20 ) Bilirubin Total: 1.4 mg/dL -- Normal range between ( 0.2 and 1.3 ) A/G Ratio: 0.8 -- Normal range between ( 1.1 and 2.5 ) ALT: 37 Units/Liter -- Normal range between ( 12 and 78 ) AST: 22 Units/Liter -- Normal range between ( 5 and 37 ) Globulin: 4.1 Gram/dL -- Normal range between ( 1.5 and 4.5 ) Alk Phos: 75 Units/Liter -- Normal range between ( 27 and 136 ) Bun/Creatinine: 29.6 -- Normal range between ( 8.0 and 20.0 ) Calcium Level: 8.4 mg/dL -- Normal range between ( 8.5 and 10.1 ) eGFR : >60 mL/min/1.73m2 eGFR NonAfrican: >60 mL/min/1.73m2 Glucose Level: 95 mg/dL -- Normal range between ( 74 and 106 ) Magnesium Level: 2.1 mg/dL -- Normal range between ( 1.5 and 2.4 ) Blood Urea Nitrogen: 21 mg/dL -- Normal range between ( 7 and 22 ) Protein Total: 7.4 Gram/dL -- Normal range between ( 6.4 and 8.2 ) Albumin Level: 3.3 Gram/dL -- Normal range between ( 3.4 and 5.0 ) Cardiac Specific Markers 04/14/18 22:35:00 Troponin I Ultra: 0.020 ng/mL -- Normal range between ( 0.015 and 0.045 ) 04/14/18 19:44:00 CK: 44 Units/Liter -- Normal range between ( 39 and 308 ) ProBNP: 1892 pg/mL -- Normal range between ( 0 and 125 ) Coagulation 04/14/18 19:44:00 INR: 1.4 -- Normal range between ( 0.9 and 1.1 ) PTT: 33.3 Second(s) -- Normal range between ( 24.5 and 30.1 ) PT: 14.3 Second(s) -- Normal range between ( 9.6 and 11.5 ) Lipid Studies 04/14/18 22:35:00 Cholesterol Tot: 100 mg/dL -- Normal range between ( 0 and 199 ) Cholesterol HDL: 23.0 mg/dL Cholesterol LDL Calculation: 38.6 mg/dL -- Normal range between ( 0.0 and 99.0 ) Cholesterol VLDL Calculation: 38.4 mg/dL -- Normal range between ( 5.0 and 40.0 ) Cholesterol/HDL Ratio: 4.3 -- Normal range between ( 0.0 and 3.2 ) Triglyceride: 192 mg/dL -- Normal range between ( 0 and 249 ) LDL/HDL Ratio: 1.7 -- Normal range between ( 0.0 and 3.6 ) Endocrinology 04/14/18 22:35:00 TSH: <0.005 mcInt Units/mL -- Normal range between ( 0.358 and 3.740 ) Computed Tomography 04/14/18 20:12:29 CT Head WO: CT Head WO Medication Comment: Procedures: Laboratory Orders Name Status AutoDiff Completed CBCD Completed CBCD Ordered CK Completed CMP Completed CMP Completed LIPID Completed MG Completed OSMO Ordered PROBNP Completed PROBNP Ordered PROBNP Ordered PT Completed PT Ordered PTT Completed PTT Ordered TROPIULT Completed TROPIULT Completed TSH Completed UADIP Completed UNAR Completed UOSMOR Ordered Radiology Orders Name Status CR Chest [address] Head WO Completed Cardiology Orders Name Status ECG Ordered ECG Ordered This statement is to verify that ANASTASIA OJSE PAIGE was seen at [facility] Emergency Department on ,04/15/2018 02:01:07. This is not a work excuse, if a work excuse was needed it will be in addition to this statement as a separate form. IMPORTANT: The examination and treatment you have received in the Emergency Department has been done to provide an appropriate evaluation and stabilizing treatment on an emergency basis only. Given the limited resources, it is not meant to be a substitute for complete medical care. The follow-up doctor you named will receive a copy of your records and all test reports. IT IS IMPORTANT THAT YOU SCHEDULE A FOLLOW-UP APPOINTMENT AND ARE RE-EVALUATED. You should report any new complaints, symptoms, or remaining problems at that time. IT IS IMPOSSIBLE FOR THE EMERGENCY DEPARTMENT TO RECOGNIZE AND TREAT ALL ELEMENTS OF INJURY OR ILLNESS IN A SINGLE VISIT. If you have been referred to a specialist physician, it means that we believe you may have a condition that requires the expertise of a specialist. KEEP IN MIND THAT THE SPECIALIST HAS HIS/HER OWN OFFICE POLICIES WHICH MAY REQUIRE PROPER INSURANCE OR PAYMENT UP FRONT BEFORE THE SPECIALIST WILL SEE YOU. It is your responsibility to call the specialist physician to make an appointment. We do not have the ability to identify specialists/physicians that work with specific insurance companies. Please be advised that all financial charges or billing practices are determined by that practice, not the hospital. If your insurance company requires that you see a specialist from their approved list, it is your responsibility to contact your insurance company to make those arrangements. It is also your responsibility to follow any other requirements of your insurance company necessary to obtain coverage for claims submitted. If you had special tests, such as EKG???s or X-rays, the interpretation of your tests given to you by the Emergency Dept. Physician is a preliminary report. Some fractures and illnesses fail to show up on preliminary tests. We will review them again within 24-48 hours. We will call you if there are any new suggestions. If your symptoms continue notify your physician. After you leave, you should follow the instructions below. In all events, you may obtain a copy of your Emergency Department visit from Medical Records. Please call to be directed to this department. We will bill your insurance; however, you are responsible today for any co-pay amounts. You will receive a separate bill for any services you may have received including: emergency, radiology, or pathology physicians. Please be sure we have an accurate contact phone number and address, should we need to call you for any reason. CIGARETTE SMOKING: The facts are clear; cigarette smoking will shorten your life. Smoking can cause many illnesses along the way. As a healthcare provider, [facility] recommends that you stop smoking. Assistance with quitting is available by contacting 3-112-HLLI-NOW. This is a free resource providing counseling, support, and referral. Or you may contact your personal physician. As part of your treatment plan, [...] cramping, rapid heartbeat, difficulty sleeping, and nervousness. The home medications listed are only as accurate as the information you provided. Please continue taking all of your medications prescribed by your Primary Care Provider unless specifically told to change or discontinue the medication. Please direct any questions regarding your home medications to your Primary Care Provider. YOU ARE THE MOST IMPORTANT FACTOR IN YOUR RECOVERY. ?? Follow your instructions carefully ?? Take your medicines as prescribed ?? Most important, see a provider as discussed. If you do not have a provider, we can provide a list of clinics Confidential This message and accompanying documents are covered by Electronic Communications Privacy Act 18 U.S.C. ???Sections 6107-1882,?? and contain information intended for the specified individual(s) only. This information is confidential. If you are not the intended recipient or an agent responsible for delivering it to the intended recipient, you are hereby notified that you have received the document in error and that any review, dissemination, copying, or the taking of any action based on the contents of this information is strictly prohibited. If you have received this communication in error, please notify us immediately by email, and delete the original message. 4 WAYS TO GET AHEAD OF SEPSIS [...] Fibrillation (irregular heartbeat) Family history of stroke Acknowledgment I hereby acknowledge receipt of these instructions and information above. I understand that I have received Emergency Treatment only which is not a substitute for complete medical care and acknowledge that all of my medical problems may not be known, identified, or treated prior to my release. I UNDERSTAND THE NEED TO ARRANGE FOLLOW-UP CARE WITH THE PHYSICIAN INDICATED. I UNDERSTAND THAT I SHOULD CONTACT MY PHYSICIAN IMMEDIATELY OR RETURN TO THE EMERGENCY DEPARTMENT IF MY CONDITION WORSENS, FAILS TO IMPROVE, OR NEW SYMPTOMS APPEAR. Vital Signs B/P PULSE RESP. RATE TEMPERATURE PULSE OX Signature of Emergency Provider Date / Time Signature of Emergency Nurse Date / Time Reminder: Be sure to sign up for the My [facility] patient portal, which gives you 26/09 access to your medical information ??? including these discharge instructions ??? using your computer, smartphone, or tablet. Just go to [employer] to get started. Questions? Call . Acknowledgment I hereby acknowledge receipt of these instructions and information above. I understand that I have received Emergency Treatment only which is not a substitute for complete medical care and acknowledge that all of my medical problems may not be known, identified, or treated prior to my release. I UNDERSTAND THE NEED TO ARRANGE FOLLOW-UP CARE WITH THE PHYSICIAN INDICATED. I UNDERSTAND THAT I SHOULD CONTACT MY PHYSICIAN IMMEDIATELY OR RETURN TO THE EMERGENCY DEPARTMENT IF MY CONDITION WORSENS, FAILS TO IMPROVE, OR NEW SYMPTOMS APPEAR. Signature of Patient / Responsible Person Date / Time Please provide a telephone number where you can be reached. The best time to call is between: It is permissible to leave a message if no answer: Yes____ No____ Nurse Providing Instructions: Emergency Physician: Electronically signed by Interface, [facility] Conversion Director Of Business Systems Cerner at 06/19/2022 11:12 PM CDT documented in this encounter Plan of Treatment Not on file documented as of this encounter Visit Diagnoses Not on filedocumented in this encounter
--- OUTSIDE RECORDS SUMMARY | 2025-01-08 15:14 | XMS_ITS | Encounter Summary ---
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 Name Role Phone Unavailable Primary Care Provider Unavailabl e Encounter Details Date Type Department Care Team (Late st Contact Info) Description 04/14/2018 Transcribed Document [facility] [place] [facility] [place] [address] ProviderMg MD [facility] [place] [address] Social History Tobacco Use Types Packs/Day Years Used Date Smoking Tobacco: Never Assessed Sex and Gender Information Value Date Recorded Sex Assigned at Not on file Legal Sex Male 1:09 PM CDT Gender Identity Not on file Sexual Orientation Not on file documented as of this encounter Miscellaneous Notes * Cerner Conversion Note - Mg ProviderMD - 04/14/2018 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 reports + LOC x 30 sec. [facility] - 04/14/2018 19:04 EST DCP GENERIC CODE Tracking Acuity : 2 - Emergent Tracking Group : [facility] ED [facility] - 04/14/2018 19:04 EST Mode of Arrival : Ambulatory Transported to ED by : Private vehicle To Room Via : Ambulate Accompanied By : Spouse ED Vital Signs : Document Height & Weight : Document ED Allergies : Document ED Reason for Visit : Document Tetanus Immunization : Unknown [facility] - 04/14/2018 19:04 EST Infectious Disease History Infectious Disease History : Chicken pox/Shingles, Influenza, Measles, Mumps Fever/Chills Last 48 Hours : No Travel To Regions with Travel Advisories : No Travel Outside [place] Within Last 30 Days : No Contact With Traveler to Advisory Region : No Tuberculosis Symptoms : None [facility] - 04/14/2018 19:04 EST Vital Signs ED Temperature Source : Tympanic Temperature Mode : Fahrenheit Temperature, Fahrenheit : 98.1 Deg F Clinical Temperature, C : 36.7 Deg C Peripheral Pulse Rate : 91 bpm Respiratory Rate : 18 Breaths/Min Systolic Blood Pressure : 89 mmHg (LOW) Diastolic Blood Pressure : 62 mmHg Oxygen Saturation : 97 % [facility] - 04/14/2018 19:04 EST Allergy (As Of: 04/14/2018 19:08:38 EST) Allergies (Active) No Known Medication Allergies Estimated Onset Date: Unspecified ; Created By: SERGEI GARCIA RN; Reaction Status: Active ; Category: Drug ; Substance: No Known Medication Allergies ; Type: Allergy ; Updated By: SERGEI GARCIA RN; Reviewed Date: 04/14/2018 19:07 EST Diagnosis Control ED (As Of: 04/14/2018 19:08:38 EST) Problems(Active) stroke (SNOMED CT :892517175 ) Name of Problem: stroke ; Onset Date: 04/02/2013 ; Recorder: FLAQUITA MARTIN RN; Confirmation: Confirmed ; Classification: Medical ; Code: 684127805 ; Contributor System: [employer] ; Last Updated: 11/24/2016 11:59 EDT ; Life Cycle Date: 04/02/2013 ; Life Cycle Status: Active ; Vocabulary: SNOMED CT ; Comments: 04/02/2013 8:34 - FLAQUITA MARTIN RN he had a stroke when they found the blood clot in valve angina (SNOMED CT :634772289 ) Name of Problem: angina ; Recorder: FLAQUITA MARTIN RN; Confirmation: Confirmed ; Classification: Medical ; Code: 702800833 ; Contributor System: [employer] ; Last Updated: 08/20/2013 11:12 EDT ; Life Cycle Date: 04/02/2013 ; Life Cycle Status: Active ; Vocabulary: SNOMED CT Asthma (SNOMED CT :928307144 ) Name of Problem: Asthma ; Recorder: Kailey Castorena RN; Confirmation: Confirmed ; Classification: Patient Stated ; Code: [id number] ; Contributor System: [employer] ; Last Updated: 03/23/2017 9:49 EST ; Life Cycle Date: 03/23/2017 ; Life Cycle Status: Active ; Vocabulary: SNOMED CT At risk for sleep apnea (IMO :68143630 ) Name of Problem: At risk for sleep apnea ; Recorder: SYSTEM, SYSTEM; Confirmation: Confirmed ; Classification: Medical ; Code: [id number] ; Last Updated: 03/28/2018 13:21 EST ; Life Cycle Date: 03/28/2018 ; Life Cycle Status: Active ; Vocabulary: IMO cardiac defibulator ( : ) Name of Problem: cardiac defibulator ; Recorder: FLAQUITA MARTIN RN; Confirmation: Confirmed ; Classification: Medical ; Contributor System: [employer] ; Last Updated: 04/02/2013 8:30 EST ; Life Cycle Date: 04/02/2013 ; Life Cycle Status: Active ; Comments: 04/02/2013 8:30 - FLAQUITA MARTIN RN interrogated at physicians office---02/22/13 Cardiomyopathy (SNOMED CT :153004943 ) Name of Problem: Cardiomyopathy ; Recorder: Kailey Castorena RN; Confirmation: Confirmed ; Classification: Patient Stated ; Code: 127151256 ; Contributor System: [employer] ; Last Updated: 03/23/2017 9:48 EST ; Life Cycle Date: 03/23/2017 ; Life Cycle Status: Active ; Vocabulary: SNOMED CT 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 ( : ) Name of Problem: 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 ; Onset Date: 04/02/2008 ; Recorder: FLAQUITA MARTIN RN; Confirmation: Confirmed ; Classification: Medical ; Contributor System: [employer] ; Last Updated: 04/02/2013 8:28 EST ; Life Cycle Date: 04/02/2013 ; Life Cycle Status: Active ; Comments: 04/02/2013 8:28 - FLAQUITA MARTIN RN treated with blood thinners GERD - Gastro-esophageal reflux disease (SNOMED CT :9850726058 ) Name of Problem: GERD - Gastro-esophageal reflux disease ; Recorder: Kailey Castorena RN; Confirmation: Confirmed ; Classification: Patient Stated ; Code: [id number] ; Contributor System: [employer] ; Last Updated: 03/23/2017 9:49 EST ; Life Cycle Date: 03/23/2017 ; Life Cycle Status: Active ; Vocabulary: SNOMED CT H/O: CVA (SNOMED CT :497520070 ) Name of Problem: H/O: CVA ; Recorder: Kailey Castorena RN; Confirmation: Confirmed ; Classification: Patient Stated ; Code: 848322353 ; Contributor System: [employer] ; Last Updated: 03/23/2017 9:48 EST ; Life Cycle Date: 03/23/2017 ; Life Cycle Status: Active ; Vocabulary: SNOMED CT Heart failure (SNOMED CT :416901201 ) Name of Problem: Heart failure ; Recorder: Kailey Castorena RN; Confirmation: Confirmed ; Classification: Patient Stated ; Code: 868548763 ; Contributor System: [employer] ; Last Updated: 03/23/2017 9:48 EST ; Life Cycle Date: 03/23/2017 ; Life Cycle Status: Active ; Vocabulary: SNOMED CT high cholesterol (SNOMED CT :75564984 ) Name of Problem: high cholesterol ; Recorder: FLAQUITA MARTIN RN; Confirmation: Confirmed ; Classification: Medical ; Code: 75824725 ; Contributor System: [employer] ; Last Updated: 08/19/2013 14:21 EDT ; Life Cycle Date: 04/02/2013 ; Life Cycle Status: Active ; Vocabulary: SNOMED CT Hyperlipidemia (SNOMED CT :30686156 ) Name of Problem: Hyperlipidemia ; Recorder: Kailey Castorena RN; Confirmation: Confirmed ; Classification: Patient Stated ; Code: 73671642 ; Contributor System: [employer] ; Last Updated: 03/23/2017 9:48 EST ; Life Cycle Date: 03/23/2017 ; Life Cycle Status: Active ; Vocabulary: SNOMED CT hypertension (SNOMED CT :4900686494 ) Name of Problem: hypertension ; Recorder: FLAQUITA MARTIN RN; Confirmation: Confirmed ; Classification: Medical ; Code: 0880132392 ; Contributor System: [employer] ; Last Updated: 08/19/2013 14:20 EDT ; Life Cycle Date: 04/02/2013 ; Life Cycle Status: Active ; Vocabulary: SNOMED CT myocardial infarction (SNOMED CT :55236524 ) Name of Problem: myocardial infarction ; Onset Date: 04/02/2007 ; Recorder: FLAQUITA MARTIN RN; Confirmation: Confirmed ; Classification: Medical ; Code: 00281994 ; Contributor System: [employer] ; Last Updated: 08/19/2013 14:57 EDT ; Life Cycle Date: 04/02/2013 ; Life Cycle Status: Active ; Vocabulary: SNOMED CT pacemaker (SNOMED CT :5329891246 ) Name of Problem: pacemaker ; Recorder: FLAQUITA MARTIN RN; Confirmation: Confirmed ; Classification: Medical ; Code: 1702011034 ; Contributor System: [employer] ; Last Updated: 08/20/2013 16:01 EDT ; Life Cycle Date: 04/02/2013 ; Life Cycle Status: Active ; Vocabulary: SNOMED CT sesonal allergies ( : ) Name of Problem: sesonal allergies ; Recorder: FLAQUITA MARTIN RN; Confirmation: Confirmed ; Classification: Medical ; Contributor System: [employer] ; Last Updated: 04/02/2013 8:26 EST ; Life Cycle Date: 04/02/2013 ; Life Cycle Status: Active Diagnoses(Active) Medical problem reevaluation Date: 04/14/2018 ; Diagnosis Type: Reason For Visit ; Confirmation: Complaint of ; Clinical Dx: Medical problem reevaluation ; Classification: Medical ; Clinical Service: Emergency medicine ; Code: PNED ; Probability: 0 ; Diagnosis Code: [id number] ED Height and Weight Height Source : Stated Height Entry Format : [place] Height, Feet : 6 ft(Converted to: 183 cm, 72 Inch) Height, Inches : 0 Inch(Converted to: 0 ft 0 Inch, 0.00 cm) Clinical Height : 182.88 cm Weight Source, ED : Standing scale Weight Entry Format : [place] Weight, Pounds : 229 lb Clinical Dosing Weight : 104.09 kg Body Surface Area (BSA) : 2.26 m2 Body Mass Index : 31.1 kg/m2 (HI) [place] Body Weight (IBW) : 76.59 kg [facility] - 04/14/2018 19:04 EST documented in this encounter Plan of Treatment Not on file documented as of this encounter Visit Diagnoses Not on filedocumented in this encounter
--- OUTSIDE RECORDS SUMMARY | 2025-01-08 15:14 | XMS_ITS | Encounter Summary ---
Author Organization [employer] ([place], [place], [place], [place], [place]) Address [address] [place] [address] Care Team Providers Care Business Intelligence Developer Name Role Phone Unavailable Primary Care Provider Stefan pond Encounter Details Date Type Department Care Team (Late st Contact Info) Description 04/14/[address] 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 Education-Smoking Cessation Entered On: 04/15/2018 6:49 EST Performed On: 04/14/2018 23:19 EST by Caridad Clements RN Teaching/Learning Assessment Barriers To Learning : None evident Caridad Clements RN - 04/15/2018 6:49 EST Education: Smoking/Tobacco Cessation Topics Smoking Cess Educatin Grid Advice Given to Stop Smoking : Verbalizes understanding Risks/Benefits of Smoking : Verbalizes understanding Second Hand Smoke : Verbalizes understanding Ed-Smoking Cessation Programs : Verbalizes understanding Ed-Smoking Cessation, Other : Verbalizes understanding Caridad Clements RN - 04/15/2018 6:49 EST Tobacco Cessation Counseling Grid Recognizing Danger Situations : Verbalizes understanding Negative Moods and/or Stress : Verbalizes understanding Being Around Other Tobacco Users : Verbalizes understanding Drinking Alcohol : Verbalizes understanding Experiencing Urges : Verbalizes understanding Tobacco Cues and Availability : Verbalizes understanding Developing Coping Skills : Verbalizes understanding Anticipate/Avoid Temptation/Triggers : Verbalizes understanding Strategies to Reduce Negative Moods : Verbalizes understanding Reduce Stress/Exposure to Tobacco Cues : Verbalizes understanding Activities to [place] With Smoking Urges : Verbalizes understanding Basic Information About Quitting : Verbalizes understanding Tobacco Use Increases Chance of Relapse : Verbalizes understanding Withdrawal Symptoms Peak After Quitting : Verbalizes understanding Addictive Nature of Tobacco : Verbalizes understanding Caridad Clements RN - 04/15/2018 6:49 EST Electronically signed by [facility] Conversion Lock[employer]ch Hemmer Cerner at 06/19/2022 11:00 PM CDT documented in this encounter Plan of Treatment Not on file documented as of this encounter Visit Diagnoses Not on filedocumented in this encounter
--- OUTSIDE RECORDS SUMMARY | 2025-01-08 15:14 | XMS_ITS | Encounter Summary ---
Author Organization [employer] ([place], [place], [place], [place], [place]) Address [address] [place] [address] Care Team Providers Care Credit Assistant Name Role Phone Unavailable Primary Care Provider Unavailabl e Encounter Details Date Type Department Care Team (Late st Contact Info) Description 04/15/2018 Transcribed Document [facility] [place] Family Medicine [facility] [place] [address] ProviderMg MD [address] [place] [address] Social History Tobacco Use Types Packs/Day Years Used Date Smoking Tobacco: Never Assessed Sex and Gender Information Value Date Recorded Sex Assigned at Not on file Legal Sex Male 1:09 PM CDT Gender Identity Not on file Sexual Orientation Not on file documented as of this encounter Miscellaneous Notes * Cerner Conversion Note - Mg Ritchie MD - 04/15/2018 2:01 AM 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 [address] [place] [address] PERSON INFORMATION Name JOSE PEARSON Age 47 Years 1970 Sex Male Language Anguillan PCP HUMA YARBROUGH (REF)MD-INT Marital Status Med Service Cardiology Acct# Arrival 04/14/2018 19:00:00 Visit Reason Syncope/Near syncope; Medical problem reevaluation; BREAKDOWN (MECHANICAL) OF CARDIAC ELECTRODE, INIT ENCNTR Acuity 2 - Emergent LOS 000 07:01 Depart Date: 00:00 AM Address: [address] [place] [id number] Comment: PROVIDER INFORMATION Provider Role Assigned Unassigned Zora Renteria RN ED Nurse 04/14/2018 19:23:12 TIARA VACNE MD ED Physician 04/14/2018 19:31:38 DIAGNOSIS Cardiac rhythm disturbance; Hypotension; Scalp contusion; Syncope PHYS DOC NOTES VITALS INFORMATION Vital Sign Triage Latest Temp Source Tympanic Oral Temp Mode Fahrenheit Fahrenheit Temp Fahrenheit 98.1 Deg F 98.3 Deg F Temp Celsius 02 Sat 97 % 100 % Respiratory Rate 18 Breaths/Min 23 Breaths/Min Peripheral Pulse Rate 91 bpm 91 bpm Apical Heart Rate Blood Pressure 89 mmHg / 62 mmHg 96 mmHg / 72 mmHg Comment: MEDICAL INFORMATION Allergy Info: No Known Medication Allergies Medications: Comment: DISCHARGE INFORMATION Discharge Disposition: Admitted as Inpatient Discharge Location: PATIENT EDUCATION INFORMATION Instructions: Follow up: Comment: documented in this encounter Plan of Treatment Not on file documented as of this encounter Visit Diagnoses Not on filedocumented in this encounter
--- OUTSIDE RECORDS SUMMARY | 2025-01-08 15:14 | XMS_ITS | Encounter Summary ---
Author Organization [employer] ([place], [place], [place], [place], [place]) Address [address] [place] [address] Care Team Providers Care Gear And Spline Grinder Name Role Phone Unavailable Primary Care Provider Unavailabl e Encounter Details Date Type Department Care Team (Late st Contact Info) Description 06/26/2018 Transcribed Document [facility] [place] Family Medicine [address] [place] [address] ProviderMg MD [address] [place] [address] Social History Tobacco Use Types Packs/Day Years Used Date Smoking Tobacco: Never Assessed Sex and Gender Information Value Date Recorded Sex Assigned at Not on file Legal Sex Male 1:09 PM CDT Gender Identity Not on file Sexual Orientation Not on file documented as of this encounter Miscellaneous Notes * Cerner Conversion Note - Mg Ritchie MD - 06/26/2018 2:27 PM CDT [facility] [place] [address] JOSE PEARSON :1970 Visit Time:06/25/2018 Your Visit Summary Your Care Team Admitting Physician - JONATAN DAVIS MD-CAR Attending Physician - JONATAN DAVIS MD-CAR Primary Care Physician - FINN, NOT LISTED Referring Physician - JONATAN DAVIS MD-CAR Your Diagnosis Paroxysmal atrial fibrillation, Paroxysmal atrial fibrillation Discharge Vitals Heart Rate 82 What to do next Instructions From Your Care Team Discharge Follow Up Instructions: Activity: f/u Dr Davis in 7-10 days, Discharge Activity: Activity as tolerated, Avoid Strenuous Activity Until: cleared by Dr Davis Diet: Discharge Diet: Resume usual diet as tolerated Follow-Up Appointments Follow Up with [facility], NOT LISTED When Within 1 week Comments Please call to make a 1 week hospital follow-up with your family MD. IF you need assistance finding a PCP call [phone] Follow Up with JONATAN DAVIS MD-CAR When Within 2 to 4 weeks Comments Please call to make a 2-4 week follow-up appointment. Where: [phone] [phone]- Medications What How Much When Instructions Next Dose Unchanged albuterol (Proventil HFA 90 mcg/ inh inhalation aerosol) Inhalation Four Times A Day as needed for Shortness of Breath Unchanged carvedilol 6.25 Milligram(s) Oral Two Times A Day Unchanged cetirizine (cetirizine 10 mg oral tablet) 1 Tablet(s) Oral Every Day Unchanged dofetilide (Tikosyn 125 mcg oral capsule) 2 Capsule(s) Oral Two Times A Day Unchanged FLUoxetine (FLUoxetine 20 mg oral capsule) 1 Capsule(s) Oral At Bedtime Unchanged fluticasone nasal (fluticasone 50 mcg/ inh nasal spray) 1 [place](s) Nostrils Both Every Day Unchanged furosemide (Lasix 40 mg oral tablet) 1 Tablet(s) Oral Two Times A Day Unchanged melatonin (Melatonin 3 mg oral tablet) 1 Tablet(s) Oral At Bedtime Unchanged montelukast (montelukast 10 mg oral tablet) 1 Tablet(s) Oral Every Day Unchanged nitroglycerin (Nitrostat 0.4 mg sublingual tablet) 1 Tablet(s) SubLINgual Every 5 minutes as needed for as needed for chest pain If chest pain not relieved in 5 minutes after first dose, seek immediate medical attention not to exceed 3 doses/ 15 min--if pain persists, seek medical attention Unchanged PRAVAstatin (pravastatin 80 mg oral tablet) 1 Tablet(s) Oral At Bedtime Unchanged rivaroxaban (Xarelto 20 mg oral tablet) 1 Tablet(s) Oral Every Day Unchanged sacubitril-valsartan (Entresto 24 mg-26 mg oral tablet) 1 Tablet(s) Oral Two Times A Day Unchanged spironolactone 25 Milligram(s) Oral Every Day Take your medications faithfully. Do NOT skip [...] This Visit No Immunizations Found Education Materials Atrial Fibrillation Introduction Atrial fibrillation is a type of heartbeat that is irregular or fast (rapid). If you have this condition, your heart keeps quivering in a weird (chaotic) way. This condition can make it so your heart cannot pump blood normally. Having this condition gives a person more risk for stroke, heart failure, and other heart problems. There are different types of atrial fibrillation. Talk with your doctor to learn about the type that you have. Follow these instructions at home: ??? Take ctvw-dci-ispesxa and prescription medicines only as told by your doctor. ??? If your doctor prescribed a blood-thinning medicine, take it exactly as told. Taking too much of it can cause bleeding. If you do not take enough of it, you will not have the protection that you need against stroke and other problems. ??? Do notuse any tobacco products. These include cigarettes, chewing tobacco, and e-cigarettes. If you need help quitting, ask your doctor. ??? If you have apnea (obstructive sleep apnea), manage it as told by your doctor. ??? Do notdrink alcohol. ??? Do notdrink beverages that have caffeine. These include coffee, soda, and tea. ??? Maintain a healthy weight. Do not use diet pills unless your doctor says they are safe for you. Diet pills may make heart problems worse. ??? Follow diet instructions as told by your doctor. ??? Exercise regularly as told by your doctor. ??? Keep all follow-up visits as told by your doctor. This is important. Contact a doctor if: ??? You notice a change in the speed, rhythm, or strength of your heartbeat. ??? You are taking a blood-thinning medicine and you notice more bruising. ??? You get tired more easily when you move or exercise. Get help right away if: ??? You have pain in your chest or your belly (abdomen). ??? You have sweating or weakness. ??? You feel sick to your stomach (nauseous). ??? You notice blood in your throw up (vomit), poop (stool), or pee (urine). ??? You are short of breath. ??? You suddenly have swollen feet and ankles. ??? You feel dizzy. ??? Your suddenly get weak or numb in your face, arms, or legs, especially if it happens on one side of your body. ??? You have trouble talking, trouble understanding, or both. ??? Your face or your eyelid droops on one side. These symptoms may be an emergency. Do [...] care provider. Document Released: 11/29/2008 Document Revised: 07/28/2016 Document Reviewed: 06/17/2015 ?? 2017 Elsevier Electrophysiology Study An electrophysiology (EP) study is a heart test in which thin, flexible tubes (catheters) are placed in a large vein in your groin, arm, neck, or chest. This test is done to evaluate the electrical conduction system of your heart. You may need this test if you have: ??? Dizziness or fainting. ??? A fast heartbeat (tachycardia). ??? A slow heartbeat (bradycardia). ??? An irregular heartbeat (arrhythmia), such as atrial fibrillation. Tell a health care provider about: ??? Any allergies you have. ??? All medicines you are taking, including vitamins, herbs, eye drops, creams, and lnhx-pxf-ogainuy medicines. ??? Any problems you or family members have had with anesthetic medicines. ??? Any blood disorders you have. ??? Any surgeries you have had. ??? Any medical conditions you have. ??? Whether you are or may be . What are the risks? Generally, this is a safe procedure. However, problems may occur, including: ??? Tachycardia that does not go away. ??? Bleeding or bruising around the insertion sites. ??? Infection. ??? Temporary or permanent heart rhythm abnormalities. ??? Temporary changes in blood pressure. ??? Puncture(perforation) of the heart wall or a blood vessel. This can cause bleeding between the heart and the sac that surrounds it (cardiac tamponade). ??? Possible cardiac arrest or fatal heart arrhythmia. ??? Allergic reactions to medicines or dyes. ??? Damage to other structures or organs. What happens before the procedure? Staying hydratedFollow instructions from your health care provider about hydration, which may include: ??? Up to 2 hours before the procedure ??? you may continue to drink clear liquids, such as water, clear fruit juice, black coffee, and plain tea. Eating and drinking restrictionsFollow instructions from your health care provider about eating and drinking, which may include: ??? 8 hours before the procedure ??? stop eating heavy meals or foods such as meat, fried foods, or fatty foods. ??? 6 hours before the procedure ??? stop eating light meals or foods, such as toast or cereal. ??? 6 hours before the procedure ??? stop drinking milk or drinks that contain milk. ??? 2 hours before the procedure ??? stop drinking clear liquids. Medicines ??? Ask your health care provider about: ? Changing or stopping your regular medicines. This is especially important if you are taking diabetes medicines or blood thinners. ? Taking medicines such as aspirin and ibuprofen. These medicines can thin your blood. Do not take these medicines before your procedure if your health care provider instructs you not to. ??? You may be given antibiotic medicine to help prevent infection. General instructions ??? Plan to have someone take you home from the hospital or clinic. ??? If you will be going home right after the procedure, plan to have someone with you for 24 hours. ??? Ask your health care provider how your surgical site will be marked or identified. What happens during the procedure? To lower your risk of infection: ? Your health care team will wash or sanitize their hands. ? Your skin will be washed with soap. ? Hair may be removed from the surgical area. ??? An IV tube will be inserted into one of your veins. ??? You will be given one or more of the following: ? A medicine to help you relax (sedative). ? A medicine to numb the area (local anesthetic). ? A medicine to make you fall asleep (general anesthetic). ??? Catheters with an electrode tip will be inserted into a large vein. These electrode tips can measure the heart's electrical activity. They can also use electrical signals to change the heart rhythm. ??? The catheters will be guided to the heart using a type of X-ray machine (fluoroscopy). Once the catheters are in the heart, they will evaluate the electrical activity of your heart. ??? If you are awake during the EP study, you may feel dizzy or light-headed. Your heart rate may temporarily increase or you may feel your heart beating hard. Tell your health care provider if you experience these things during the EP study: ? You feel dizzy or nauseous. ? You have chest pain or pressure. ??? The catheters will be removed. ??? Firm pressure will be applied to the insertion sites to prevent bleeding. ??? A bandage (dressing) may be applied over the insertion sites. The procedure may vary among health care providers and hospitals. What happens after the procedure? Do notdrive for 24 hours if you were given a sedative. ??? Your blood pressure, heart rate, breathing rate, and blood oxygen level will be monitored until the medicines you were given have worn off. ??? You will need to lie flat for a few hours or as told by your health care provider. Keep your legs straight. Do not bend or cross your legs. This information is not intended to replace advice given to you by your health care provider. Make sure you discuss any questions you have with your health care provider. Document Released: 08/10/2010 Document Revised: 09/23/2016 Document Reviewed: 08/29/2016 [employer] Interactive Patient Education ?? 2017 [employer]. Emergency Awareness and Preventative Care STROKE is [...] Assistance with quitting is available by contacting 4-105-MZCQ-NOW. This is a free resource providing counseling, support, and referral. Or you may contact your personal physician. National Suicide Prevention Lifeline: The National Suicide Prevention [...] CPR? There are two easy steps: Call if you see a teen or adult [...] and how to prevent infections, visit www.cdc.gov/sepsis. Patient Portal Reminder: Be sure to sign up for the [facility] patient portal, which gives you 26/09 access to your medical information ??? including these discharge instructions ??? using your computer, smartphone, or tablet. Just go to [facility] to get started. Questions? Call . Test Results Laboratory or Other Results This Visit (last charted value for your 06/25/2018 visit) Hematology 06/26/18 06:22:00 WBC: 8.3 K/uL -- Normal range between ( 3.6 and 9.5 ) RBC: 5.43 Million/uL -- Normal range between ( 4.20 and 5.70 ) Hct: 46.0 % -- Normal range between ( 40.1 and 51.0 ) Hgb: 15.4 g/dL -- Normal range between ( 13.5 and 17.3 ) Platelet Count: 264 K/uL -- Normal range between ( 163 and 369 ) MCH: 28.4 pg -- Normal range between ( 25.6 and 32.2 ) MCHC: 33.5 Gram/dL -- Normal range between ( 32.2 and 36.5 ) MCV: 84.7 fL -- Normal range between ( 79.0 and 94.8 ) Slide Review: No Eos %: 3.5 % -- Normal range between ( 0.0 and 7.0 ) [place] #: 1.01 K/uL -- Normal range between ( 0.16 and 1.00 ) Eos #: 0.29 x10(3)/uL -- Normal range between ( 0.00 and 0.80 ) [place] %: 12.1 % -- Normal range between ( 3.0 and 9.0 ) Baso %: 0.8 % -- Normal range between ( 0.0 and 1.5 ) Baso #: 0.07 x10(3)/uL -- Normal range between ( 0.00 and 0.20 ) RDW: 15.1 % -- Normal range between ( 11.7 and 14.9 ) Neut %: 58.8 % -- Normal range between ( 34.0 and 71.0 ) Neut #: 4.89 K/uL -- Normal range between ( 1.56 and 6.13 ) Lymph %: 24.7 % -- Normal range between ( 19.3 and 53.1 ) Lymph #: 2.06 x10(3)/uL -- Normal range between ( 1.00 and 3.90 ) MPV: 9.3 fL -- Normal range between ( 9.4 and 12.4 ) IG#: 0.01 x10(3)/uL -- Normal range between ( 0.00 and 0.05 ) IG%: 0.10 % -- Normal range between ( 0.00 and 0.60 ) 06/25/18 11:18:00 Hemoglobin POC: 17.0 Gram/dL -- Normal range between ( 12.0 and 17.0 ) Hematocrit POC: 50.0 % -- Normal range between ( 38.0 and 51.0 ) General Chemistry 06/26/18 06:22:00 Creatinine Level: 0.70 mg/dL -- Normal range between ( 0.70 and 1.30 ) Sodium Level: 136 mmol/L -- Normal range between ( 136 and 146 ) Potassium Level: 4.1 mmol/L -- Normal range between ( 3.5 and 5.1 ) Chloride Level: 103 mmol/L -- Normal range between ( 102 and 112 ) Carbon Dioxide Level: 25 mmol/L -- Normal range between ( 21 and 32 ) Anion Gap: 12 -- Normal range between ( 9 and 20 ) Bun/Creatinine: 24.3 -- Normal range between ( 8.0 and 20.0 ) Calcium Level: 9.0 mg/dL -- Normal range between ( 8.4 and 10.1 ) eGFR : >60 mL/min/1.73m2 eGFR NonAfrican: >60 mL/min/1.73m2 Glucose Level: 88 mg/dL -- Normal range between ( 74 and 106 ) Blood Urea Nitrogen: 17 mg/dL -- Normal range between ( 7 and 22 ) 06/25/18 11:18:00 Sodium POC: 138 mmol/L -- Normal range between ( 138 and 146 ) Ca Ioniz POC: 1.27 mmol/L -- Normal range between ( 1.12 and 1.32 ) Potassium POC: 4.2 mmol/L -- Normal range between ( 3.5 and 4.9 ) Creatinine POC: 0.7 mg/dL -- Normal range between ( 0.6 and 1.3 ) BUN POC: 20 mg/dL -- Normal range between ( 8 and 26 ) CO2 POC: 25.0 mmol/L -- Normal range between ( 24.0 and 29.0 ) Chloride POC: 100 mmol/L -- Normal range between ( 98 and 109 ) Glucose POC: 98 mg/dL -- Normal range between ( 70 and 105 ) Anion Gap POC: 19.0 mmol/L -- Normal range between ( 10.0 and 20.0 ) Patient Name:JOSE PEARSON I have received and understand this information and was given the opportunity to ask questions. Patient/Assembly Inspector Name: Patient/Assembly Inspector Signature: Relationship to Patient: Clinician/Hospital Assembly Inspector Signature: Date: documented in this encounter Plan of Treatment Not on file documented as of this encounter Visit Diagnoses Not on filedocumented in this encounter
--- OUTSIDE RECORDS SUMMARY | 2025-01-08 15:14 | XMS_ITS | Encounter Summary ---
Author Organization [employer] ([place], [place], [place], [place], [place]) Address [address] [place] [address] Care Team Providers Care Weft Straightener Name Role Phone Unavailable Primary Care Provider Unavailabl e Encounter Details Date Type Department Care Team (Late st Contact Info) Description 04/19/2018 Transcribed Document [facility] [place] [facility] [place] [address] ProviderMg MD [facility] [place] [address] Social History Tobacco Use Types Packs/Day Years Used Date Smoking Tobacco: Never Assessed Sex and Gender Information Value Date Recorded Sex Assigned at Not on file Legal Sex Male 1:09 PM CDT Gender Identity Not on file Sexual Orientation Not on file documented as of this encounter Miscellaneous Notes * Cerner Conversion Note - Mg ProviderMD - 04/19/2018 10:48 AM INSPECTOR MACHINE CUT GLASS Care Management Assessment/Plan Entered On: 04/19/2018 10:48 EST Performed On: 04/19/2018 10:48 EST by Breann Ordaz, RN Care Management Note Anticipated Discharge Date : 04/17/2018 21:00 EST Care Management Note : Home plan at discharge when medically cleared, follow up appoinment placed in discharge form...arh Care Management Note Report : Breann Ordaz, RN - 04/18/18 14:23:07 Jim Sanchez set up appointment with [facility] endocrinology, CAREY cancelled Salazar[facility] appointment and faxed patient information over to [phone]...arh Breann Ordaz, RN - 04/18/18 10:02:59 CM spoke with Rianna education program coordinator at [facility]'s office, fax [phone]. Patient's requested date for start of care is in 2 weeks but medical physics teacher as scheduling out for 2-3 months. Patient is on the cancellation list at Dr. Salazar's with a July appointment time. Information sent to above fax, appointment time placed in discharge form...Breann Beebe, RN - 04/17/18 13:45:24 Per provider notes, patient scheduled for a DCCV today 04/17/18. [place] to stop all alcohol use. Thyroid work [...] . Home plan at discharge, no needs noted...[facility] Documentation Status Complete : Yes Breann Ordaz, RN - 04/19/2018 10:48 EST Electronically signed by [facility] Conversion Ankle Patch Molder Cerner at 06/19/2022 11:09 PM CDT documented in this encounter Plan of Treatment Not on file documented as of this encounter Visit Diagnoses Not on filedocumented in this encounter
--- OUTSIDE RECORDS SUMMARY | 2025-01-08 15:14 | XMS_ITS | Encounter Summary ---
Author Organization [employer] ([place], [place], [place], [place], [place]) Address [address] [place] [address] Care Team Providers Care Senior Electrical Design Engineer Name Role Phone Unavailable Primary Care Provider Unavailabl e Encounter Details Date Type Department Care Team (Late st Contact Info) Description 04/15/2018 Transcribed Document [facility] [place] Family Medicine [facility] [place] [address] ProviderMg MD [facility] [place] [address] Social History Tobacco Use Types Packs/Day Years Used Date Smoking Tobacco: Never Assessed Sex and Gender Information Value Date Recorded Sex Assigned at Not on file Legal Sex Male 1:09 PM CDT Gender Identity Not on file Sexual Orientation Not on file documented as of this encounter Miscellaneous Notes * Cerner Conversion Note - Historical ProviderMD - 04/15/2018 5:00 AM PRESS OPERATOR ASSISTANT Height and Weight, Routine Entered On: 04/16/2018 6:59 EST Performed On: 04/15/2018 5:00 EST by Josue Roa Patient Type Disk Quality Control Supervisor Height and Weight, Routine Routine Weight Source : Standing scale Routine Weight Entry Format : [place] Routine Weight, Pounds : 228 lb Routine Weight, Ounces : 6 oz Routine Weight Calculation : 103.81 kg Height Source : Stated Height Entry Format : [place] Height, Feet : 6 ft Height, Inches : 0 Inch Clinical Height : 182.88 cm Body Surface Area (BSA), Routine : 2.26 m2 Body Mass Index (BMI), Routine : 31.04 kg/m2 Josue Roa Patient Type Disk Quality Control Supervisor - 04/16/2018 6:59 EST documented in this encounter Plan of Treatment Not on file documented as of this encounter Visit Diagnoses Not on filedocumented in this encounter
--- OUTSIDE RECORDS SUMMARY | 2025-01-08 15:14 | XMS_ITS | Encounter Summary ---
Author Organization [email or web address] ([place], [place], [place], [place], [place]) Address [address] [place] [address] Care Team Providers Care Cushion Assembler Name Role Phone Unavailable Primary Care Provider Unavailabl e Encounter Details Date Type Department Care Team (Late st Contact Info) Description 05/28/2018 Transcribed Document [facility] [place] [facility] [place] [address] ProviderMg MD [address] [place] [address] Social History Tobacco Use Types Packs/Day Years Used Date Smoking Tobacco: Never Assessed Sex and Gender Information Value Date Recorded Sex Assigned at Not on file Legal Sex Male 1:09 PM CDT Gender Identity Not on file Sexual Orientation Not on file documented as of this encounter Miscellaneous Notes * Cerner Conversion Note - Mg Ritchie MD - 05/28/2018 4:14 PM CDT DATE OF STUDY: PROCEDURE PERFORMED: Electrophysiology study, 3 dimensional mapping, ablation of the atrioventricular node. NOTE: This is a patient with a dilated cardiomyopathy. INDICATION: For the above study, history of dilated cardiomyopathy, history of paroxysmal atrial fib with RVR and ICD shocks. The patient has a Saint Cory BiV ICD in situ. DESCRIPTION OF PROCEDURE: After obtaining informed consent, he was brought to the EP lab in a fasting state. He was prepped and draped in the usual manner and consciously sedated using Versed and fentanyl. The right groin was infiltrated with lidocaine, and using the micropuncture needle set by means of the modified Seldinger technique an 8-Thai and a 6-Thai sheath was introduced in right femoral vein. The 8-Thai sheath was exchanged for a medium curve Agilis long sheath. The 6-Thai sheath was used to place a deflectable quadripolar His catheter in the right atrium, this was exchanged later on for a Rosas quadripolar His catheter. The Agilis sheath was then used to place a 3.5 mm STSF Recinos irrigated F-curve ablation catheter. Using Alex for 3D mapping the ablation catheter was positioned within the right atrium and mapped along the tricuspid valve for an optimal His signal, despite a prolonged mapping attempt, a stable His signal could not be obtained, due TR. The deflectable quadripolar His catheter and also the Rosas catheter was then used, again, due to patient's sleep apnea/enlarged rt atrium and TR a stable His could not be obtained. Empiric ablation was attempted in an area superior/ant to the CS os, by programming the RF generator at 30-35 newsome and ablating, but only transient AV block was seen. The procedure was stopped. The patient remained in sinus rhythm with intact AV node. Catheters were removed under fluoroscopic guidance and manual pressure held to obtain hemostasis. The patient's biventricular ICD was interrogated and found to be functioning normally with no change in lead impedances of pacing thresholds or sensing. PLAN: The plan is to discharge him from the solar lab technician holding area following recovery from sedation, after two to three hours of observation. The patient is to restart his usual medications including his oral anticoagulants after 24 hours. The plan will be to reschedule him for AV miroslava ablation using a left-sided approach. Whitney Davis M.D. Dict: 05/28/2018 16:14:23 Trans: 05/29/2018 00:00:59 CC1: Whitney Davis M.D. documented in this encounter Plan of Treatment Not on file documented as of this encounter Visit Diagnoses Not on filedocumented in this encounter
--- OUTSIDE RECORDS SUMMARY | 2025-01-08 15:14 | XMS_ITS | Encounter Summary ---
Author Organization [employer] ([place], [place], [place], [place], [place]) Address [address] [place] [address] Care Team Providers Care Game Programmer Name Role Phone Unavailable Primary Care Provider Unavailabl e Encounter Details Date Type Department Care Team (Late st Contact Info) Description 05/28/2018 Transcribed Document [facility] [place] [facility] [address] ProviderMg [place] [address] Social History Tobacco Use Types [...] Ritchie MD - 05/28/2018 5:34 PM CDT [address] [address] Patient Copy Patient Information: Name: JOSE PEARSON Current Date: 05/28/2018 17:34:18 : 1970 Patient Address: [address] [place] [id number] Patient Attending Physician: JONATAN ISABEL MD-CAR Primary Care Provider: HUMA YARBROUGH (REF)JAYNE Primary Care Provider Discharge Diagnosis: Weight on Admission: 240 lb, 0 oz Comment: Follow-up Instructions: With: Address: [place]: JONATAN ISABEL [address] [facility] [address] [place] [address] Business (1) Comments: Call for [...] nasal (fluticasone 50 mcg/inh nasal spray) 1 Morning Sun(s) Nostrils Both Every Day. furosemide (Lasix 40 [...] Document Reviewed: 03/25/2011 ExitCare? Patient Information ?2014 [employer]. Cardiac Ablation Cardiac ablation is a procedure to stop some heart tissue from causing problems. The heart has many electrical connections. Sometimes these connections cause the heart to beat very fast or irregularly. Removing some of the problem areas can improve heart rhythm or make it normal. Ablation is done for people who: ??? Have Eatgx-Udzovgrkf-Ulrlr syndrome. ??? Have other fast heart rhythms [...] 10/23/2013 Document Revised: 07/28/2016 Document Reviewed: 07/18/2013 [employer] Interactive Patient Education ? 2017 [employer] Moderate Conscious Sedation, Adult, Care After [...] you are awake and alert. ??? Take eard-ivc-qfotliz and prescription medicines only as told by [...] 12/11/2013 Document Revised: 07/25/2016 Document Reviewed: 06/11/2016 [employer] Interactive Patient Education ? 2017 [employer] CIGARETTE SMOKING: The facts are clear, cigarette smoking will shorten your life. Smoking can cause many illnesses along the way. As a healthcare provider, we recommend that you stop smoking. Assistance with quitting is available by contacting 2-971-WELD-NOW. This is a free resource providing counseling, [...] Be sure to sign up for the [employer] patient portal, which gives you 26/09 access to your medical information ??? including these discharge instructions ??? using your computer, smartphone, or tablet. Just go to [facility] to get started. Questions? Call . [facility] would like to thank you for allowing us to assist you with your healthcare needs. ANASTASIA Rich DENNIS PAUL, (or workforce services representative) have received the above patient education materials/instructions and have verbalized understanding: Patient Signature _ Date/Time Patient Tank Hoop Bender Signature (if needed) Date/Time Clinician/Hospital Tank Hoop Bender Signature (if needed) Date/Time Electronically signed by Interface, [facility] Conversion Legger Press Operator Cerner at 06/19/2022 10:58 PM CDT documented in this encounter Plan of Treatment Not on file documented as of this encounter Visit Diagnoses Not on filedocumented in this encounter
--- OUTSIDE RECORDS SUMMARY | 2025-01-08 15:14 | XMS_ITS | Encounter Summary ---
Author Organization [employer] ([place], [place], [place], [place], [place]) Address [address] [place] [address] Care Team Providers Care Cushion Gum Applicator Name Role Phone Unavailable Primary Care Provider Unavailabl e Encounter Details Date Type Department Care Team (Late st Contact Info) Description 04/18/2018 Transcribed Document [facility] [place] Medicine [facility] [place] [address] ProviderMg [place] [facility] [address] Social History Tobacco Use Types Packs/Day Years Used Date Smoking Tobacco: Never Assessed Sex and Gender Information Value Date Recorded Sex Assigned at Not on file Legal Sex Male 1:09 PM CDT Gender Identity Not on file Sexual Orientation Not on file documented as of this encounter Miscellaneous Notes * Cerner Conversion Note - Mg Ritchie MD - 04/18/2018 9:54 AM SPORTS PHYSIOLOGIST Patient: JOSE PEARSON Age: 47 years Sex: Male : 1970 Associated Diagnoses: None Author: KATY FRIAS MD-CAR Subjective no cp or soa. Objective VS/Measurements Vital Measurements 04/18/2018 7:08 EST Temperature, Fahrenheit 97.4 Deg F Clinical Temperature, C 36.3 Deg C Heart Rate Monitored 71 bpm Respiratory Rate 16 Breaths/Min Systolic Blood Pressure 93 mmHg Diastolic Blood Pressure 53 mmHg LOW Mean Arterial Pressure (MAP)-BMDI 61 General: Alert and oriented. Neck: No carotid bruit, No jugular venous distention. Respiratory: Lungs are clear to auscultation, Respirations are non-labored, Breath sounds are equal, Symmetrical chest wall expansion. Cardiovascular: Normal rate, Regular rhythm, No murmur, No gallop, Good pulses equal in all extremities, Normal peripheral perfusion, No edema, paced . Gastrointestinal: Normal bowel sounds. Integumentary: Warm, Dry, [place]. Results Review General results Today's results: 04/18/2018 4:32 EST ProBNP 2,683 pg/mL HI Impression and Plan NIDCM/CLSHF s/p Syncope with V-fib s/p ICD shock x2 04/15 - EF <20% per office ECHO 03/22/18 - NYHA = 2-3 - Cont Coreg, Entresto, Aldactone PAF -dccv to sr 04/17 - tikosyn. off sotalol will 48-72 hous on new tikosyn 500 bid , QTC 538 but av paced. - as above, ETOH and hyperthyroidism contributing. Was unable to complete sleep study (could never fall asleep) Hyperthyroidism - new dx - TSH <0.005 - T4 2.86 - wt loss 10lb 1 month - Discussed with Dr. Lerma. Workup ongoing. Htn - stable here, cont coreg, Entresto, Aldactone etoh abuse -discussed cessation Plan: Thyroid ultrasound today Continue Coreg and Entresto Aldactone and tikosyn set up op endocrine I Dr Alberts seen and examined patient and devised the above plan of care. The patient is on take is on Tikosyn, the QTC is being monitored documented in this encounter Plan of Treatment Not on file documented as of this encounter Visit Diagnoses Not on filedocumented in this encounter
--- OUTSIDE RECORDS SUMMARY | 2025-01-08 15:14 | XMS_ITS | Encounter Summary ---
Author Organization [employer] ([place], [place], [place], [place], [place]) Address [address] [place] [address] Care Team Providers Care Concrete Gun Operator Name Role Phone Unavailable Primary Care Provider Unavailabl e Encounter Details Date Type Department Care Team (Late st Contact Info) Description 06/25/2018 Transcribed Document [facility] [place] [facility] [place] [address] ProviderMg MD [facility] [place] [address] Social History Tobacco Use Types Packs/Day Years Used Date Smoking Tobacco: Never Assessed Sex and Gender Information Value Date Recorded Sex Assigned at Not on file Legal Sex Male 1:09 PM CDT Gender Identity Not on file Sexual Orientation Not on file documented as of this encounter Miscellaneous Notes * Cerner Conversion Note - Mg Ritchie MD - 06/25/2018 5:20 PM CDT DATE OF STUDY: 06/25/2018 PROCEDURE PERFORMED: Electrophysiology study, 3 dimensional mapping, His mapping, ablation of atrioventricular miroslava function for episodes of atrial fibrillation with rapid ventricular rate in a patient with dilated cardiomyopathy, consistent with multiple implantable cardioverter-defibrillator shocks. HISTORY: This is a 48-year-old with dilated cardiomyopathy in whom we attempted the above procedure a few weeks ago, but were unsuccessful because of TR secondary to sleep apnea. He was brought back today for the procedure with the aim of re-mapping from the right side and failing that attempting AV miroslava ablation from the left side, i.e., non-coronary cusp aortic valve via the arterial route. DESCRIPTION OF PROCEDURE: After obtaining informed consent, he was brought to the EP lab in a fasting state, where he was prepped and draped in the usual manner and consciously sedated using Versed and fentanyl. His Bi-V ICD system was interrogated and found to be functioning normally. It was programed at VVI 40, tachy detection was programed off. The system was reviewed under fluoroscopy. The right femoral area was infiltrated with lidocaine using a micropuncture needle set by means of the modified Seldinger technique. A 5-Serbian sheath was placed in the right femoral artery and an 8-Serbian sheath in the right femoral vein. The right femoral venous sheath was exchanged for a large curve Agilis sheath through which an STSF 3.5 mm F curve irrigated tip Recinos catheter was introduced and the coronary sinus and the area around the coronary sinus including the area anterosuperiorly was mapped, taking care not to dislodge the pacemaker and ICD leads. After obtaining an adequate His cloud using the [employer] 3D mapping system, the ablation was commenced, the generator was programed to 30 newsome, and AV block was attains within seconds of application of energy, a 1 minute long lesion was placed, a second minute long bonus lesion was placed, total RF ablation time was 2 minutes and 30 seconds. We waited around 15 minutes, the patient continued to be in AV block. The Saint Cory Bi-V ICD system was re-interrogated and found to be functioning normally. It was programed at DDDR low rate 70-80. Catheters were removed under fluoroscopic guidance taking care not to dislodge the ICD leads, and following the withdrawal, the sheaths were flushed and removed, and manual pressure held to obtain hemostasis. The patient tolerated the procedure well. There were no immediate complications. PLAN: The plan is to admit and observe the patient on telemetry overnight. He is to be discharged in the morning. Patient is to restart his usual medications. He is to follow up and see me in the clinic within two weeks. Whitney Davis M.D. Dict: 06/25/2018 17:20:46 Trans: 06/25/2018 23:07:03 CC1: Whitney Davis M.D. documented in this encounter Plan of Treatment Not on file documented as of this encounter Visit Diagnoses Not on filedocumented in this encounter
--- OUTSIDE RECORDS SUMMARY | 2025-01-08 15:14 | XMS_ITS | Encounter Summary ---
Author Organization [employer] ([place], [place], [place], [place], [place]) Address [address] [place] [address] Care Team Providers Care Feed Weigher Name Role Phone Unavailable Primary Care Provider Unavailabl e Encounter Details Date Type Department Care Team (Late st Contact Info) Description 04/18/2018 Transcribed Document [facility] [place] [address] Provider[place] [address] Social History Tobacco Use Types Packs/Day Years Used Date Smoking Tobacco: Never Assessed Sex and Gender Information Value Date Recorded Sex Assigned at Not on file Legal Sex Male 1:09 PM CDT Gender Identity Not on file Sexual Orientation Not on file documented as of this encounter Miscellaneous Notes * Cerner Conversion Note - Mg ProviderMD - 04/18/2018 2:22 PM MUD LOGGER Care Management Assessment/Plan Entered On: 04/18/2018 14:23 EST Performed On: 04/18/2018 14:22 EST by Breann Ordaz, RN Care Management Note Anticipated Discharge Date : 04/17/2018 21:00 EST Care Management Note : Jim Sanchez set up appointment with [facility], CAREY cancelled Martin's appointment and faxed patient information over to [phone]...[facility] Care Management Note Report : Breann Ordaz, RN - 04/18/18 10:02:59 CM spoke with Rianna dental patient coordinator at [facility]ngel Salazar's office, fax [phone]. Patient's requested date for start of care is in 2 weeks but job estimator as scheduling out for 2-3 months. Patient is on the cancellation list at Dr. Salazar's with a July appointment time. Information sent to above fax, appointment time placed in discharge form...arh Breann Ordaz, RN - 04/17/18 13:45:24 Per provider notes, patient scheduled for a DCCV today 04/17/18. [place] to stop all alcohol use. Thyroid work up taking place during admission for new onset thyroid panel testing. Remains a home plan, no needs noted...[facility] Breann Ordaz RN - 04/16/18 09:22:27 chart review and patient interview with Deider at bedside. Patient admitted with breakdown/mechanical of [...] . Home plan at discharge, no needs noted...[facility] Documentation Status Complete : Yes Breann Ordaz RN - 04/18/2018 14:22 EST Electronically signed by Morales Mejia Conversion Atmospheric Physics Professor Cerner at 06/19/2022 10:57 PM CDT documented in this encounter Plan of Treatment Not on file documented as of this encounter Visit Diagnoses Not on filedocumented in this encounter
--- OUTSIDE RECORDS SUMMARY | 2025-01-08 15:14 | XMS_ITS | Encounter Summary ---
Author Organization [employer] ([place], [place], [place], [place], [place]) Address [address] [place] [address] Care Team Providers Care Payroll Supervisor Name Role Phone Unavailable Primary Care Provider Unavailabl e Encounter Details Date Type Department Care Team (Late st Contact Info) Description 04/15/[address] [facility] [place] Family [facility] [place] [address] ProviderMg MD [facility] [place] [id number] Social History Tobacco Use Types Packs/Day Years Used Date Smoking Tobacco: Never Assessed Sex and Gender Information Value Date Recorded Sex Assigned at Not on file Legal Sex Male 1:09 PM CDT Gender Identity Not on file Sexual Orientation Not on file documented as of this encounter Miscellaneous Notes * Cerner Conversion Note - Mg Ritchie MD - 04/15/2018 9:38 AM FISH TECHNOLOGIST Patient: JOSE PEARSON Age: 47 years Sex: Male : 1970 Associated Diagnoses: None Author: KATY FRIAS MD-CAR Chief Complaint got shocked last night History of Present Illness 47-year-old male with history of nonischemic artery myopathy diagnosed in 2007, the patient had normal coronaries, the patient had received IV ICD, he also has atrial fibrillation paroxysmal, the patient was recently admitted to [facility] for right heart catheterization, he was diagnosed with pulmonary hypertension, the patient sotalol was also increased recently, the patient has episodes of palpitations, left heart failure with reduced ejection fraction, the patient states that he was at his friend's house yesterday when he started feeling more palpitations, somewhat more short of breath, no chest pain, no modifying factor, this all happened at rest while he was talking to his friend, the patient then fainted and was shocked by his defibrillator twice. He was therefore brought in to [facility] emergency room. Review of Systems Constitutional: No fever, No [...] Pain (Moderate 4-6) magnesium sulfate: 2 Gram, 50 mL, 25 mL/Hr, IV Piggyback, On-CALL morphine: 2 mg, IV Push, Q5Min, PRN: Pain (Severe 7-10) potassium chloride 20 mEq oral tablet, extended release: 40 mEq, 2 Tab, Oral, 1-Time, PRN: Other (See Comment) potassium chloride 20 mEq oral tablet, extended release: 60 mEq, 3 Tab, Oral, On-CALL Prescriptions Prescribed sotalol 120 mg oral tablet: [...] Refill(s) fluticasone 50 mcg/inh nasal spray: 1 [place], Nostrils Both, Daily, 0 Refill(s) montelukast 10 mg oral tablet: 1 Tab, Oral, Daily, 0 Refill(s) pravastatin 80 mg oral tablet: 1 Tab, Oral, At Bedtime, 0 Refill(s) spironolactone: 25 mg, Oral, Daily, 0 Refill(s), Medications (11) Active Scheduled: (4) #NaCl 0.9% *FLUSH* inj 10 mL 10 mL, IV Push, Q12H docusate sodium 100 mg cap 100 mg 1 Cap, Oral, BID magnesium sulfate 2 Gram 50 mL, IV Piggyback, On-CALL potassium chloride CR 20 mEq tab 60 [...] mEq 2 Tab, Oral, 1-Time Problem list: Medical angina / SNOMED CT 340480294 / Confirmed At risk for sleep apnea / IMO [id number] / Confirmed cardiac defibulator / Confirmed interrogated at physicians office---02/22/13 pacemaker / SNOMED CT 2919740679 / Confirmed stroke / SNOMED CT 093503129 / Confirmed he had a stroke when they found the blood clot in valve 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 / Confirmed treated with blood thinners History of obstructive sleep apnea / IMO [id number] / Confirmed high cholesterol / SNOMED CT 88820429 / Confirmed hypertension / SNOMED CT 6637603607 / Confirmed myocardial infarction / SNOMED CT 93009010 / Confirmed sesonal allergies / Confirmed, Active Problems (18) stroke angina Asthma At risk for sleep [...] Smoke Exposure No . Physical Examination VS/Measurements Vital Signs/Vital Measures 04/15/2018 6:59 EST Temperature Source Oral Temperature Mode Fahrenheit Temperature, Fahrenheit 97.4 Deg F Clinical Temperature, C 36.3 Deg C Heart Rate Monitored 88 bpm Respiratory Rate 16 Breaths/Min Systolic Blood Pressure 99 mmHg Diastolic Blood Pressure 77 mmHg Mean Arterial Pressure (MAP)-BMDI 84 Oxygen Saturation 97 % Oxygen Therapy Mode Room air 04/14/2018 22:58 EST Temperature Source Axillary Temperature Mode Fahrenheit Temperature, Fahrenheit 98.0 Deg F Clinical Temperature, C 36.7 Deg C Heart Rate Monitored 116 bpm HI Respiratory Rate 18 Breaths/Min Systolic Blood Pressure 112 mmHg Diastolic Blood Pressure 83 mmHg Mean Arterial Pressure (MAP)-BMDI 92 Oxygen Saturation 97 % Oxygen Therapy Mode Room air 04/14/2018 22:11 EST Heart Rate Monitored 102 bpm HI Respiratory Rate 22 Breaths/Min HI Systolic Blood Pressure 109 mmHg Diastolic Blood Pressure 79 mmHg Mean Arterial Pressure (MAP)-BMDI 86 Oxygen Saturation 93 % LOW 04/14/2018 21:45 EST Heart Rate Monitored 103 bpm HI Respiratory Rate 45 Breaths/Min HI Systolic Blood Pressure 103 mmHg Diastolic Blood Pressure 55 mmHg LOW Mean Arterial Pressure (MAP)-BMDI 72 Oxygen Saturation 90 % LOW 04/14/2018 21:30 EST Heart Rate Monitored 105 bpm HI Respiratory Rate 23 Breaths/Min HI Systolic Blood Pressure 96 mmHg Diastolic Blood Pressure 72 mmHg Mean Arterial Pressure (MAP)-BMDI 80 Oxygen Saturation 100 % 04/14/2018 21:18 EST Temperature Source Oral Temperature Mode Fahrenheit Temperature, Fahrenheit 98.3 Deg F Clinical Temperature, C 36.8 Deg C Heart Rate Monitored 73 bpm Respiratory Rate 27 Breaths/Min HI Oxygen Saturation 97 % 04/14/2018 21:16 EST Heart Rate Monitored 73 bpm Respiratory Rate 27 Breaths/Min HI Systolic Blood Pressure 95 mmHg Diastolic Blood Pressure 64 mmHg Mean Arterial Pressure (MAP)-BMDI 74 Oxygen Saturation 96 % 04/14/2018 21:00 EST Heart Rate Monitored 80 bpm Respiratory Rate 23 Breaths/Min HI Systolic Blood Pressure 96 mmHg Diastolic Blood Pressure 59 mmHg LOW Mean Arterial Pressure (MAP)-BMDI 70 Oxygen Saturation 96 % 04/14/2018 20:45 EST Heart Rate Monitored 82 bpm Respiratory Rate 26 Breaths/Min HI Systolic Blood Pressure 99 mmHg Diastolic Blood Pressure 56 mmHg LOW Mean Arterial Pressure (MAP)-BMDI 72 Oxygen Saturation 97 % 04/14/2018 20:30 EST Heart Rate Monitored 75 bpm Respiratory Rate 16 Breaths/Min Systolic Blood Pressure 101 mmHg Diastolic Blood Pressure 64 mmHg Mean Arterial Pressure (MAP)-BMDI 77 Oxygen Saturation 94 % 04/14/2018 20:15 EST Heart Rate Monitored 84 bpm Respiratory Rate 20 Breaths/Min Systolic Blood Pressure 98 mmHg Diastolic Blood Pressure 60 mmHg Mean Arterial Pressure (MAP)-BMDI 71 Oxygen Saturation 96 % 04/14/2018 20:00 EST Heart Rate Monitored 78 bpm Respiratory Rate 18 Breaths/Min Systolic Blood Pressure 99 mmHg Diastolic Blood Pressure 59 mmHg LOW Mean Arterial Pressure (MAP)-BMDI 74 Oxygen Saturation 93 % LOW 04/14/2018 19:45 EST Heart Rate Monitored 79 bpm Respiratory Rate 25 Breaths/Min HI Systolic Blood Pressure 107 mmHg Diastolic Blood Pressure 68 mmHg Mean Arterial Pressure (MAP)-BMDI 83 Oxygen Saturation 95 % 04/14/2018 19:30 EST Heart Rate Monitored 76 bpm Respiratory Rate 21 Breaths/Min HI Systolic Blood Pressure 96 mmHg Diastolic Blood Pressure 59 mmHg LOW Mean Arterial Pressure (MAP)-BMDI 73 Oxygen Saturation 96 % 04/14/2018 19:15 EST Heart Rate Monitored 78 bpm Respiratory Rate 16 Breaths/Min Systolic Blood Pressure 99 mmHg Diastolic Blood Pressure 67 mmHg Oxygen Saturation 95 % 04/14/2018 19:04 EST Temperature Source Tympanic Temperature Mode Fahrenheit Temperature, Fahrenheit 98.1 Deg F Clinical Temperature, C 36.7 Deg C Peripheral Pulse Rate 91 bpm Respiratory Rate 18 Breaths/Min Systolic Blood Pressure 89 mmHg LOW Diastolic Blood Pressure 62 mmHg Oxygen Saturation 97 % , Measurements from flowsheet : Measurements 04/14/2018 23:00 EST Height Source Stated Height Entry Format [place] Height/Length, [place] (ft) 6 ft Height/Length [place] 0 Inch CLINICALHEIGHT 182.88 cm [place] Body Weight 77 kg Weight Source Standing scale Weight Entry Format [place] Weight [place] lb 229 lb Weight [place] oz 5 oz CLINICALWEIGHT 104.23 kg Body Surface Area (BSA) 2.26 m2 Body Mass Index 31.2 kg/m2 HI 04/14/2018 19:04 EST Height Source Stated Height Entry Format [place] Height/Length, [place] (ft) 6 ft Height/Length [place] 0 Inch CLINICALHEIGHT 182.88 cm [place] Body Weight 76.59 kg Weight Source, ED Standing scale Weight Entry Format [place] Weight [place] lb 229 lb CLINICALWEIGHT 104.09 kg Body Surface Area (BSA) 2.26 m2 Body Mass Index 31.1 kg/m2 HI , Vitals Signs (last 24 hrs) Last Charted Minimum Maximum Temp 97.4 (APR 15 06:59) 97.4 (APR 15:59) 98.1 (APR 14 19:04) Mon HR 88 (APR 15:59) 73 (APR 14 21:16) 116 (APR 14 22:58) Periph HR 91 (APR 14 19:04) 91 (APR 14 19:04) 91 (APR 14 19:04) Resp Rate 16 (APR 15 06:59) 16 (APR 14 19:15) H 45 (APR 14 21:45) SBP 99 (APR 15:59) L 89 (APR 14 19:04) 112 (APR 14 22:58) DBP 77 (APR 15:59) L 55 (APR 14 21:45) 83 (APR 14 22:58) MAP 84 (APR 15:59) 70 (APR 14 21:00) 92 (APR 14 22:58) SpO2 97 (APR 15:59) L 90 (APR 14 21:45) 100 (APR 14 21:30) General: Alert and oriented, No acute distress. [...] of motion, Normal strength. Integumentary: Warm, Dry, [place]. Neurologic: Alert, Oriented. Cognition and Speech: Oriented, Speech clear and coherent. Psychiatric: Cooperative, Appropriate mood & affect. Review / Management Results review: Labs (Last four charted values) WBC 6.8 (APR 15) 6.0 (APR 14) HB 13.8 (FEB 10) 14.2 (APR 14) HCT 41.4 (B 10) 42.0 (APR 09) Plt 261 (APR 10) 284 (APR 14) Na L 135 (APR 14) 136 (APR 14) K 3.9 (APR 14) 4.0 (APR 09) Cl 103 (APR 14) 103 (APR 14) CO2 24 (APR 14) 25 (APR 14) BUN 21 (APR 14) 21 (APR 14) Cr 0.71 (APR 14) 0.81 (APR 14) Glu R 95 (APR 14) H 116 (APR 14) Ca L 8.4 (APR 14) 8.8 (APR 14) PT H 12.5 (APR 15) H 14.3 (APR 14) INR H 1.2 (APR 15) H 1.4 (APR 14) PTT H 31.4 (APR 15) H 33.3 (APR 14) AST 22 (APR 14) 24 (APR 14) ALT 37 (APR 14) 36 (APR 14) ALK P 75 (APR 14) 74 (APR 14) T Bili H 1.4 (APR 14) H 1.5 (APR 14) PTN 7.4 (APR 14) 7.5 (APR 14) ALB L 3.3 (APR 14) 3.4 (APR 14) Troponin 0.020 (APR 14) <0.015 (APR 14) . Impression and Plan 1. Syncope/V. fib arrest: The patient had syncopal episode secondary to ventricular fibrillation, this was interrogated on his ICD device, he also had frequent episodes of atrial fibrillation, the patient's sotalol was recently increased due to atrial fibrillation episodes and carvedilol was decreased due to his low blood pressure. The patient had V. fib episodes despite being on a higher dose of sotalol, therefore I have discussed this with that we may need to discontinue sotalol and switch him to either Tikosyn oral amiodarone, I have discussed this with the family as well and I would leave this decision for Dr. Davis discuss with the family. The patient understand that he does have end-stage cardiac myopathy with high mortality. He also understands situation is complex. 2. Acute on chronic left heart failure with reduced ejection fraction: -Coreg 6.25 twice a day, Entresto 24/26 twice a day. -admitted for rhc -Ef <20% bye recent office echo 03/22/18 3.Nonischemic dilated cardiomyopathy -BIVICD in situ -Interrogation of device due to report of ICD shock. In the chart. 4.Paroxysmal atrial fibrillation -Presently appears sinus rhythm -The patient is on sotalol, he may need to be switched to either Tikosyn or amiodarone, and distended with his medication side effects which I have also talked to them and also he would discuss this with to make the final decision on the medications. Dr. Davis will see the patient today to discuss options. documented in this encounter Plan of Treatment Not on file documented as of this encounter Visit Diagnoses Not on filedocumented in this encounter
--- OUTSIDE RECORDS SUMMARY | 2025-01-08 15:14 | XMS_ITS | Encounter Summary ---
Author Organization [employer] ([place], [place], [place], [place], [place]) Address [address] [place] [address] Care Team Providers Care Creative Arts Music Therapist Name Role Phone Unavailable Primary Care Provider Unavailabl e Encounter Details Date Type Department Care Team (Late st Contact Info) Description 04/18/2018 Transcribed Document [facility] [place] [facility] [place] [address] ProviderMg MD [facility] [place] [address] Social History Tobacco Use Types Packs/Day Years Used Date Smoking Tobacco: Never Assessed Sex and Gender Information Value Date Recorded Sex Assigned at Not on file Legal Sex Male 1:09 PM CDT Gender Identity Not on file Sexual Orientation Not on file documented as of this encounter Miscellaneous Notes * Cerner Conversion Note - Historical ProviderMD - 04/18/2018 5:00 AM CHEMICAL CELL CHANGER Height and Weight, Routine Entered On: 04/18/2018 7:07 EST Performed On: 04/18/2018 5:00 EST by GREG MONROY RN Height and Weight, Routine Routine Weight Source : Standing scale Routine Weight Entry Format : [place] Routine Weight, Pounds : 229 lb Routine Weight, Ounces : 2 oz Routine Weight Calculation : 104.15 kg Height Source : Stated Height Entry Format : [place] Height, Feet : 6 ft Height, Inches : 0 Inch Clinical Height : 182.88 cm Body Surface Area (BSA), Routine : 2.26 m2 Body Mass Index (BMI), Routine : 31.14 kg/m2 GREG MONROY RN - 04/18/2018 7:07 EST Electronically signed by Jackie [facility] Conversion Barrel Bung Remover And Dumper Cerner at 06/19/2022 10:57 PM CDT documented in this encounter Plan of Treatment Not on file documented as of this encounter Visit Diagnoses Not on filedocumented in this encounter
--- OUTSIDE RECORDS SUMMARY | 2025-01-08 15:14 | XMS_ITS | Encounter Summary ---
Author Organization [employer] ([place], [place], [place], [place], [place]) Address [address] [place] [address] Care Team Providers Care Needle Control Cheniller Name Role Phone Unavailable Primary Care Provider Unavailabl e Encounter Details Date Type Department Care Team (Late st Contact Info) Description 06/26/2018 Transcribed Document [facility] [place] [address] [place] [address] ProviderMg MD [facility] [place] [address] Social History Tobacco Use Types Packs/Day Years Used Date Smoking Tobacco: Never Assessed Sex and Gender Information Value Date Recorded Sex Assigned at Not on file Legal Sex Male 1:09 PM CDT Gender Identity Not on file Sexual Orientation Not on file documented as of this encounter Miscellaneous Notes * Cerner Conversion Note - Historical ProviderMD - 06/26/2018 2:26 PM CDT Stroke/Warfarin Instructions Entered On: 06/26/2018 14:26 EDT Performed On: 06/26/2018 14:26 EDT by DENVER NICOLE RN Stroke/Warfarin Instructions Stroke/TIA Discharge Ins : N/A Warfarin Discharge Ins : N/A DENVER NICOLE RN - 06/26/2018 14:26 EDT documented in this encounter Plan of Treatment Not on file documented as of this encounter Visit Diagnoses Not on filedocumented in this encounter
--- OUTSIDE RECORDS SUMMARY | 2025-01-08 15:14 | XMS_ITS | Encounter Summary ---
Author Organization [employer] ([place], [place], [place], [place], [place]) Address [address] [place] [address] Care Team Providers Care Astrobiologist Name Role Phone Unavailable Primary Care Provider Unavailabl e Encounter Details Date Type Department Care Team (Late st Contact Info) Description 04/19/2018 Transcribed Document [facility] [place] Family Medicine [facility] [place] [place] [address] ProviderMg MD [facility] [place] [address] Social History Tobacco Use Types Packs/Day Years Used Date Smoking Tobacco: Never Assessed Sex and Gender Information Value Date Recorded Sex Assigned at Not on file Legal Sex Male 1:09 PM CDT Gender Identity Not on file Sexual Orientation Not on file documented as of this encounter Miscellaneous Notes * Cerner Conversion Note - Mg ProviderMD - 04/19/2018 11:28 AM STITCH BURNISHER Patient: JOSE PEARSON Age: 47 years Sex: Male : 1970 Associated Diagnoses: None Author: BRENDON OTT APRN Subjective no cp or soa. Objective VS/Measurements Vital Measurements 04/19/2018 10:18 EST Temperature, Fahrenheit 97.7 Deg F Clinical Temperature, C 36.5 Deg C Heart Rate Monitored 76 bpm Respiratory Rate 16 Breaths/Min Systolic Blood Pressure 93 mmHg Diastolic Blood Pressure 65 mmHg Mean Arterial Pressure (MAP)-BMDI 72 Oxygen Saturation 93 % LOW General: Alert and oriented. Neck: No carotid bruit, No jugular venous distention. Respiratory: Lungs are clear to auscultation, Respirations are non-labored, Breath sounds are equal, Symmetrical chest wall expansion. Cardiovascular: Normal rate, Regular rhythm, No murmur, No gallop, Good pulses equal in all extremities, Normal peripheral perfusion, No edema, paced . Gastrointestinal: Normal bowel sounds. Integumentary: Warm, Dry, [place]. Results Review General results HYROID ULTRASOUND HISTORY: [...] ECHO 03/22/18 - NYHA = 2-3 - EP consult: - Cont Coreg, Entresto, Aldactone PAF - [...] and asymptomatic Etoh abuse -discussed cessation Plan: Continue Coreg and Entresto Aldactone and tikosyn monday appt endocrine for hyperthyroid documented in this encounter Plan of Treatment Not on file documented as of this encounter Visit Diagnoses Not on filedocumented in this encounter
--- OUTSIDE RECORDS SUMMARY | 2025-01-08 15:14 | XMS_ITS | Encounter Summary ---
Author Organization [employer] ([place], [place], [place], [place], [place]) Address [address] [place] [address] Care Team Providers Care Behavioral Sciences Department Chair Name Role Phone Unavailable Primary Care Provider Unavailabl e Encounter Details Date Type Department Care Team (Late st Contact Info) Description 04/16/2018 Transcribed Document [facility] [place] Family Medicine [facility] [place] [address] ProviderMg MD [facility] [place] [address] Social History Tobacco Use Types Packs/Day Years Used Date Smoking Tobacco: Never Assessed Sex and Gender Information Value Date Recorded Sex Assigned at Not on file Legal Sex Male 1:09 PM CDT Gender Identity Not on file Sexual Orientation Not on file documented as of this encounter Miscellaneous Notes * [employer] Conversion Note - Historical ProviderMD - 04/16/2018 9:46 AM MAGNETIC RESONANCE TECHNOLOGIST Therapy Screen, OT Entered On: 04/16/2018 11:07 EST Performed On: 04/16/2018 9:46 EST by NAHUM CORNELIUS OTR/Kaushal Therapy Screen, OT Medical Chart Reviewed : Yes Person Providing Information : Nurse, Patient Screen Completed : Yes Recommendations for Evaluation OT : Do not recommend Occupational Therapy evaluation Therapy Screen Findings, OT : Patient at functional baseline Recommendations Upon Discharge : None Additional Therapy Screen Comment : Pt reports he is I with ADLs, functional mobility, and does not need any therapy at this time. No further skilled OT indicated. NAHUM CORNELIUS OTR/Kaushal - 04/16/2018 11:07 EST documented in this encounter Plan of Treatment Not on file documented as of this encounter Visit Diagnoses Not on filedocumented in this encounter
--- OUTSIDE RECORDS SUMMARY | 2025-01-08 15:14 | XMS_ITS | Encounter Summary ---
Author Organization [employer] ([place], [place], [place], [place], [place]) Address [address] [place] [address] Care Team Providers Care Squirt Machine Operator Name Role Phone Unavailable Primary Care Provider Unavailabl e Encounter Details Date Type Department Care Team (Late st Contact Info) Description 06/25/2018 Transcribed Document [facility] Radiology [address] [place] [address] Judy Perry MD [address] [address] Social History Tobacco Use Types Packs/Day Years Used Date Smoking Tobacco: Never Assessed Sex and Gender Information Value Date Recorded Sex Assigned at Not on file Legal Sex Male 1:09 PM CDT Gender Identity Not on file Sexual Orientation Not on file documented as of this encounter Miscellaneous Notes * Cerner Conversion Note - Judy Perry MD - 06/25/2018 12:19 PM EDT Patient: JOSE PEARSON Age: 48 years Sex: Male : 1970 Associated Diagnoses: None Author: JUDY PERRY MD-INT 06/25/18 cc: medical management s/p cardiac ablation per Dr. Davis HPI: Patient is a 48 yo male admitted to [facility] per Dr. Davis for a cardiac ablation. Preoperatively patient was found to have persistent atrial fib not controlled with conservative treatment modalities. Patient was recommended ablation per Dr. Davis and will be admitted post-procedure for overnight monitoring. Plan will be to discharge patitient home tomorrow if no overnight events are noted and patient is hemodynamically stable. Initial visit with patient in [facility] prior to procedure. Says patient had thyroid control out of whack in feb and he went into Vfib. Says he has had afib issues chronically for years that were exacerbated by thyroid disease. hx heart attack, stroke. Says he has noted residual memory issues. Pt says he uses smokeless tobacco dip/snuff forever, not sure if I plan to quit. Family history of coronary artery dsease. Father had heart attack, COPD. Multiple family members with stroke. Mother at age 63 from multiple medical issues including diabetes, HTN, ESRD on HD. Pt says he is on medications for HTN, HLD. Says he is not currently on thryoid replacement. Does report seasonal allergies. Pt says he thinks he has sleep apnea. Reports 2 prior episodes that are inconclusive but was told by Dr. Davis during surgery last month he likely suffers from it with upcoming outpatient sleep study this coming Monday. Past Med Hx: stroke angina Asthma At risk for sleep apnea cardiac defibulator Cardiomyopathy GERD - Gastro-esophageal reflux disease H/O: CVA Heart failure high cholesterol History of obstructive sleep apnea Hyperlipidemia hypertension Hypotension myocardial infarction pacemaker sesonal allergies Past Surg Hx: cardiac catheterization right ankle pins with rods pacemaker hernia repair Family Hx: HTN, renal failure, coronary artery disease, stroke and DM. Social & Psychosocial Habits Alcohol 05/28/2018 Alcohol [...] a day Second Hand Smoke Exposure No Allergies (1) Active Reaction No Known Medication Allergies None Documented Home Medications (14) Active carvedilol 6.25 mg, Oral, BID cetirizine 10 mg oral tablet 10 mg = 1 Tab, Oral, Daily Entresto 24 mg-26 mg oral tablet 1 Tab, Oral, BID FLUoxetine 20 mg oral capsule 20 mg = 1 Cap, Oral, At Bedtime fluticasone 50 mcg/inh nasal spray 1 [place], Nostrils Both, Daily Lasix 40 mg oral tablet 40 mg = 1 Tab, Oral, BID Melatonin 3 mg oral tablet 3 mg = 1 Tab, Oral, At Bedtime montelukast 10 mg oral tablet 10 mg = 1 Tab, Oral, Daily Nitrostat 0.4 mg sublingual tablet 0.4 mg = 1 Tab, PRN, SubLINgual, Q5Min pravastatin 80 mg oral tablet 80 mg = 1 Tab, Oral, At Bedtime Proventil HFA 90 mcg/inh inhalation aerosol , PRN, Inhalation, QID spironolactone 25 mg, Oral, Daily Tikosyn 125 mcg oral capsule 250 mcg = 2 Cap, Oral, BID Xarelto 20 mg oral tablet 20 mg = 1 Tab, Oral, Daily Exam: Vitals Signs (last 24 hrs) Last Charted Minimum Maximum Temp 97.2 (JUN 25:) 97.2 (JUN 25:) 97.2 (JUN 25:) Periph HR 71 (JUN 25:) 71 (JUN 25:) 71 (JUN 25:) Resp Rate 16 (JUN 25:) 16 (JUN 25:) 16 (JUN 25:) SBP 102 (JUN 25:09) 102 (JUN 25:09) 102 (JUN 25:) DBP 69 (JUN 25:) 69 (JUN 25:) 69 (JUN 25:) SpO2 98 (JUN 25:) 98 (JUN 25:) 98 (JUN 25:) obese white man in no distress; pleasant, cooperative, good historian; present, seen in [facility] nc/at, eomi, PEERL, pink conjunctiva, moist mucous membranes, no thyromegaly or cervical lymphadenopathy =expansion b/l without wheezes rales or rhonchi non-displaced PMI, reg s1, s2 ABDis soft non-tender, non-distended, norm bowel sounds skin warm, dry without rashes ext: without edema, no calf tenderness neuro: cn 2-12 intact; no gross motor -sensory deficits psych: normal affect, good mood Data: Impression: atrial fibrillation; awaiting cardiac ablation per Dr. Covington hx stroke hx angina hx Asthma hx At risk for sleep apnea hx cardiac defibulator hx Cardiomyopathy hx GERD - Gastro-esophageal reflux disease H/O: CVA hx Heart failure hx high cholesterol History of obstructive sleep apnea hx Hyperlipidemia hx hypertension hx Hypotension hx myocardial infarction hx pacemaker hx seasonal allergies hx cardiac catheterization hx right ankle pins with rods hx hernia repair Plan: Admit overnight for OBS Likely DC home tomorrow morning with post procedure instructions per Dr. Davis Monitor HTN; add PRN's, hold parameters Pain management deferred to surgeon will monitor hb/hct daily for signs of ongoing acute blood loss will monitor bun/cr daily for signs of dehydration, prerenal azotemia will monitor for signs/symptoms of post-op wound infection or hospital acquired infectious process resume outpatient medication regimen for comorbidities see supporting data below *Scribed by Vannessa DaviesKind[facility] Status Allergies: Allergic Reactions (Selected) No Known Medication Allergies, Allergies (1) Active Reaction No Known Medication Allergies None Documented Current medications: (Selected) Inpatient Medications Ordered diazePAM: 5 mg, Oral, 1-Time Documented Medications Documented Entresto 24 mg-26 mg [...] QID, PRN: Shortness of Breath, 0 Refill(s) Tikosyn 125 mcg oral capsule: 2 Cap, Oral, BID, 60 Cap, 0 Refill(s) Xarelto 20 mg oral tablet: 1 Tab, Oral, Daily, 30 Tab, 0 Refill(s) carvedilol: 6.25 mg, Oral, BID, 0 Refill(s) cetirizine 10 mg oral tablet: 1 Tab, Oral, Daily, 0 Refill(s) fluticasone 50 mcg/inh nasal spray: 1 [place], Nostrils Both, Daily, 0 Refill(s) montelukast 10 mg oral tablet: 1 Tab, Oral, Daily, 0 Refill(s) pravastatin 80 mg oral tablet: 1 Tab, Oral, At Bedtime, 0 Refill(s) spironolactone: 25 mg, Oral, Daily, 0 Refill(s), Medications (1) Active Scheduled: (1) diazepam 5 mg tab 5 mg 1 Tab, Oral, 1-Time Continuous: (0) PRN: (0) Problem list: Medical angina / SNOMED CT 307678801 / Confirmed At risk for sleep apnea / IMO 89053412 / Confirmed cardiac defibulator / Confirmed interrogated at physicians office---02/22/13 pacemaker / SNOMED CT 9436681082 / Confirmed stroke / SNOMED CT 964598037 / Confirmed he had a stroke when they found the blood clot in valve History of obstructive sleep apnea / IMO 17939301 / Confirmed high cholesterol / SNOMED CT 90329045 / Confirmed hypertension / SNOMED CT 7604179492 / Confirmed myocardial infarction / SNOMED CT 34618307 / Confirmed sesonal allergies / Confirmed, Active Problems (17) stroke angina Asthma At risk for sleep apnea cardiac defibulator Cardiomyopathy GERD - Gastro-esophageal reflux disease H/O: CVA Heart failure high cholesterol History of obstructive sleep apnea Hyperlipidemia hypertension Hypotension myocardial infarction pacemaker sesonal allergies Histories Past Medical History: Resolved 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: Onset on 04/02/2008 at 37 years. Resolved. Comments: 04/02/2013 EST 8:28 FLAQUITA IRVING RN treated with blood thinners Family History: No family history items have [...] 24 hrs) Last Charted Minimum Maximum Temp 97.2 (JUN 25:09) 97.2 (JUN 25:) 97.2 (JUN 25:) Periph HR 71 (JUN 25:) 71 (JUN 25:) 71 (JUN 25:) Resp Rate 16 (JUN 25:) 16 (JUN 25:) 16 (JUN 25:) SBP 102 (JUN 25:) 102 (JUN 25:) 102 (JUN 25:) DBP 69 (JUN 25:) 69 (JUN 25:09) 69 (JUN 25:) SpO2 98 (JUN 25:) 98 (JUN 25:) 98 (JUN 25:) Review / Management Results review: No qualifying data available. documented in this encounter Plan of Treatment Not on file documented as of this encounter Visit Diagnoses Not on filedocumented in this encounter
--- OUTSIDE RECORDS SUMMARY | 2025-01-08 15:14 | XMS_ITS | Encounter Summary ---
Author Organization [employer] ([place], [place], [place], [place], [place]) Address [address] [place] [address] Care Team Providers Care Documentation Billing Clerk Name Role Phone Unavailable Primary Care Provider Stefan e Encounter Details Date Type Department Care Team (Late st Contact Info) Description 04/18/2018 Transcribed Document [facility] [place] [facility] [place] [address] ProviderMg MD [place] [address] Social History Tobacco Use Types Packs/Day Years Used Date Smoking Tobacco: Never Assessed Sex and Gender Information Value Date Recorded Sex Assigned at Not on file Legal Sex Male 1:09 PM CDT Gender Identity Not on file Sexual Orientation Not on file documented as of this encounter Miscellaneous Notes * Cerner Conversion Note - Mg ProviderMD - 04/18/2018 11:31 AM FRAME STRAIGHTENER Patient: JOSE PEARSON Age: 47 years Sex: Male : 1970 Associated Diagnoses: None Author: ARIANNA GARCIA DO Basic Information pt resting quietly no specific problems successfully cardioverted by cardiology Health Status Allergies: Allergic Reactions (Selected) No Known Medication Allergies, Allergies (1) Active Reaction No Known Medication Allergies None Documented Current medications: (Selected) Inpatient Medications Ordered Colace: 100 mg, Oral, BID Entresto 24 mg-26 mg oral tablet: 1 Tab, Oral, BID FLUoxetine: 20 mg, Oral, At Bedtime Lasix: 40 mg, Oral, BID Normal Saline 1,000 mL: 10 mL/Hr, IntraVENous Normal Saline Flush: 10 mL, IV Push, Q12H Normal Saline Flush: 10 mL, IV Push, See Comment, PRN: IV Use PRAVAstatin: 80 mg, Oral, At Bedtime Tikosyn: 500 mcg, Oral, BID Tylenol: 650 mg, Oral, Q4H, PRN: Pain (Mild 1-3) Xarelto: 20 mg, Oral, Daily Zofran: 4 mg, IV Push, Q6H, PRN: Nausea acetaminophen-HYDROcodone 325 mg-5 mg oral tablet: 1 Tab, Oral, Q4H, PRN: Pain (Moderate 4-6) albuterol: 1 Puff, Inhalation, QID, PRN: Shortness of Breath carvedilol: 6.25 mg, Oral, BID loratadine: 10 mg, Oral, Daily magnesium sulfate: 2 Gram, 50 mL, 25 mL/Hr, IV Piggyback, On-CALL montelukast: 10 mg, Oral, Daily morphine: 2 mg, IV Push, Q5Min, PRN: Pain (Severe 7-10) potassium chloride 20 mEq oral tablet, extended release: 40 mEq, 2 Tab, Oral, 1-Time, PRN: Other (See Comment) potassium chloride 20 mEq oral tablet, extended release: 60 mEq, 3 Tab, Oral, On-CALL spironolactone: 25 mg, Oral, Daily Prescriptions Prescribed sotalol 120 mg oral tablet: [...] Refill(s) fluticasone 50 mcg/inh nasal spray: 1 [place], Nostrils Both, Daily, 0 Refill(s) montelukast 10 mg oral tablet: 1 Tab, Oral, Daily, 0 Refill(s) pravastatin 80 mg oral tablet: 1 Tab, Oral, At Bedtime, 0 Refill(s) spironolactone: 25 mg, Oral, Daily, 0 Refill(s), Medications (22) Active Scheduled: (14) #NaCl 0.9% *FLUSH* inj 10 mL 10 mL, IV Push, Q12H carvedilol 6.25 mg tab 6.25 mg 1 Tab, Oral, BID docusate sodium 100 mg cap 100 mg 1 Cap, Oral, BID dofetilide 250 mcg cap 500 mcg 2 Cap, Oral, BID FLUoxetine 20 mg cap 20 mg 1 Cap, Oral, At Bedtime furosemide 40 mg tab 40 mg 1 Tab, Oral, BID loratadine 10 mg tab 10 mg 1 Tab, Oral, Daily magnesium sulfate 2 Gram 50 mL, IV Piggyback, On-CALL montelukast 10 mg tab 10 mg 1 Tab, Oral, Daily potassium chloride CR 20 mEq tab 60 mEq 3 Tab, Oral, On-CALL PRAVAstatin sodium 20 mg tab 80 mg 4 Tab, Oral, At Bedtime rivaroxaban 20 mg tab 20 mg 1 Tab, Oral, Daily sacubitril-valsartan 24 mg-26 mg tab 1 Tab, Oral, BID spironolactone 25 mg tab 25 mg 1 Tab, Oral, Daily Continuous: (1) NaCl 0.9% 1,000 mL 1,000 mL, IntraVENous, 10 mL/Hr PRN: (7) #NaCl 0.9% *FLUSH* inj 10 mL 10 mL, IV Push, See Comment acetaminophen 325 mg tab 650 mg 2 Tab, Oral, Q4H acetaminophen/HYDROcodone 325/5 mg tab 1 Tab, Oral, Q4H albuterol 90 mcg/1 puff inh 6.7 g 1 Puff, Inhalation, QID morphine 2 mg/1 ml inj 2 mg 1 mL, IV Push, Q5Min ondansetron 4 mg/2 mL inj 4 mg 2 mL, IV Push, Q6H potassium chloride CR 20 mEq tab 40 mEq 2 Tab, Oral, 1-Time Problem list: Medical angina / SNOMED CT 964986490 / Confirmed At risk for sleep apnea / IMO 53002088 / Confirmed cardiac defibulator / Confirmed interrogated at physicians office---02/22/13 pacemaker / SNOMED CT 1216137861 / Confirmed stroke / SNOMED CT 496119109 / Confirmed he had a stroke when they found the blood clot in valve 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 / Confirmed treated with blood thinners History of obstructive sleep apnea / IMO 17506419 / Confirmed high cholesterol / SNOMED CT 91941157 / Confirmed hypertension / SNOMED CT 3073859513 / Confirmed myocardial infarction / SNOMED CT 21667256 / Confirmed sesonal allergies / Confirmed, Active Problems (19) stroke angina Asthma At risk for sleep apnea cardiac defibulator Cardiomyopathy 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 GERD - Gastro-esophageal reflux disease H/O: CVA Heart failure high cholesterol History of obstructive sleep apnea Hyperlipidemia hypertension Hypotension Moderate protein-calorie malnutrition myocardial infarction pacemaker sesonal allergies Physical Examination VS/Measurements Vitals Signs (last 24 hrs) Last Charted Minimum Maximum Temp 97.4 (APR 18:08) 97.4 (APR 18:08) 98.2 (APR 18 02:20) Apical HR 78 (APR 18 10:07) 78 (APR 18 10:07) 93 (APR 17 22:17) Mon HR 71 (APR 18 07:08) 70 (APR 17 15:16) 86 (APR 17 17:55) Resp Rate 16 (APR 18 07:08) 16 (APR 17 15:16) 18 (APR 18 02:20) SBP 93 (APR 18 07:08) 93 (APR 18 07:08) 107 (APR 17 17:55) DBP L 53 (APR 18 07:08) L 43 (APR 18 02:20) 79 (APR 17 17:55) MAP 61 (APR 18 07:08) 56 (APR 18 02:20) 84 (APR 17 17:55) SpO2 96 (APR 18 02:20) L 92 (APR 17 22:00) 96 (FEB 12 15:16) General: Alert and oriented, No acute distress. Neck: Supple. Respiratory: Lungs are clear to auscultation. Cardiovascular: Normal rate, Regular rhythm. Gastrointestinal: Soft, Normal bowel sounds. Review / Management Results review: Labs (Last four charted values) WBC 6.8 (APR 10) 6.0 (APR 09) HB 13.8 (APR 10) 14.2 (APR 14) HCT 41.4 (APR 10) 42.0 (APR 14) Plt 261 (APR 10) 284 (APR 09) Na L 135 (APR 14) 136 (APR 14) K 3.9 (APR 14) 4.0 (APR 14) Cl 103 (APR 14) 103 (APR 14) [...] 0.020 (APR 14) <0.015 (APR 14) . Reason For Exam hyperthyroidism;Other (Please Specify) REPORT THYROID ULTRASOUND HISTORY: Hyperthyroidism. PROCEDURE: Ultrasound images of [...] in the right lobe. Impression and Plan hyperthyroidism added thyroid ab, free T3, u/s as above he will likely require I uptake study as an outpt with endocrinology referral, poss FNA of the dominant nodule has an appt with endocrinology on monday cardiac dysrhythmia would recommend that amiodarone not be used in this setting, until further information is gained in regards to the functionality of the thyroid and its use of Iodine additional available iodine has the possibility to provide increased substrate for hyperthyroidism in pts amiodarone can induce either hypo or hyperthyroidism, and it also inhibits extrathyroidal conversion of T4 to T3 in all patients htn, hld; per primary d/w cardiology will s/o, outpt f/u is in place appropriately; please contact us if we can be of further assistance time 25min documented in this encounter Plan of Treatment Not on file documented as of this encounter Visit Diagnoses Not on filedocumented in this encounter
--- OUTSIDE RECORDS SUMMARY | 2025-01-08 15:14 | XMS_ITS | Encounter Summary ---
Author Organization [employer] ([place], [place], [place], [place], [place]) Address [address] [place] [address] Care Team Providers Care Ferryboat Ticket Taker Name Role Phone Unavailable Primary Care Provider Unavailabl e Encounter Details Date Type Department Care Team (Late st Contact Info) Description 04/16/2018 Transcribed Document [facility] [place] [facility] [place] [address] ProviderMg MD [facility] [place] [address] Social History Tobacco Use Types Packs/Day Years Used Date Smoking Tobacco: Never Assessed Sex and Gender Information Value Date Recorded Sex Assigned at Not on file Legal Sex Male 1:09 PM CDT Gender Identity Not on file Sexual Orientation Not on file documented as of this encounter Miscellaneous Notes * Cerner Conversion Note - Historical ProviderMD - 04/16/2018 11:[address] [facility] OT Charges Entered On: 04/16/2018 11:08 EST Performed On: 04/16/2018 11:08 EST by NAHUM CORNELIUS OTR/Kaushal Hager OT Charges Screen For Staff Anesthetist : 1 NAHUM CORNELIUS OTR/Kaushal - 04/16/2018 11:08 EST documented in this encounter Plan of Treatment Not on file documented as of this encounter Visit Diagnoses Not on filedocumented in this encounter
--- OUTSIDE RECORDS SUMMARY | 2025-01-08 15:14 | XMS_ITS | Encounter Summary ---
Author Organization [employer] ([place], [place], [place], [place], [place]) Address [address] [place] [address] Care Team Providers Care Smash Piecer Name Role Phone Unavailable Primary Care Provider Stefan pond Encounter Details Date Type Department Care Team (Late st Contact Info) Description 04/15/2018 Transcribed Document [facility] [place] [facility] [place] [address] ProviderMg MD [place] [address] Social History Tobacco Use Types Packs/Day Years Used Date Smoking Tobacco: Never Assessed Sex and Gender Information Value Date Recorded Sex Assigned at Not on file Legal Sex Male 1:09 PM CDT Gender Identity Not on file Sexual Orientation Not on file documented as of this encounter Miscellaneous Notes * Cerner Conversion Note - Historical ProviderMD - 04/15/2018 5:00 AM PACKAGING SUPERVISOR Chart Check - Review Order Profile Entered On: 04/15/2018 6:49 EST Performed On: 04/15/2018 5:00 EST by Caridad Clements RN Chart Check Chart Reviewed Date and Time : 04/15/2018 5:00 EST [employer] Initiated/Discontinued as Appropriate : Yes All Active Orders Reviewed : Yes Caridad Clements RN - 04/15/2018 6:49 EST documented in this encounter Plan of Treatment Not on file documented as of this encounter Visit Diagnoses Not on filedocumented in this encounter
--- OUTSIDE RECORDS SUMMARY | 2025-01-08 15:14 | XMS_ITS | Encounter Summary ---
Author Organization [employer] ([place], [place], [place], [place], [place]) Address [address] [place] [address] Care Team Providers Care Engraver Signature Name Role Phone Unavailable Primary Care Provider Unavailabl e Encounter Details Date Type Department Care Team (Late st Contact Info) Description 04/18/2018 Transcribed Document [facility] [place] Medicine [address] [place] [address] ProviderMg MD [facility] [place], [place] [id number] Social History Tobacco Use Types Packs/Day Years Used Date Smoking Tobacco: Never Assessed Sex and Gender Information Value Date Recorded Sex Assigned at Not on file Legal Sex Male 1:09 PM CDT Gender Identity Not on file Sexual Orientation Not on file documented as of this encounter Miscellaneous Notes * Cerner Conversion Note - Historical ProviderMD - 04/18/2018 2:00 AM CONTRACT ATTORNEY [employer] Details Entered On: 04/18/2018 4:38 EST Performed On: 04/18/2018 2:00 EST by GREG MONROY, RN Order Details Transport Mode Order Detail : Ambulatory Isolation Precautions Order Detail : Standard Precautions Order Detail : N/A IV Order Detail : 1 Oxygen Order Detail : 0 Nurse Collect Order Detail : 0 Lift/Transfer : Independent Central Line Order Detail : No Room Service : Appropriate Arterial Line : No GREG MONROY, MARYCARMEN - 04/18/2018 4:38 EST documented in this encounter Plan of Treatment Not on file documented as of this encounter Visit Diagnoses Not on filedocumented in this encounter
--- OUTSIDE RECORDS SUMMARY | 2025-01-08 15:14 | XMS_ITS | Encounter Summary ---
Author Organization [employer] ([place], [place], [place], [place], [place]) Address [address] [place] [address] Care Team Providers Care Client Service And Consulting Manager Name Role Phone Unavailable Primary Care Provider Unavailabl e Encounter Details Date Type Department Care Team (Late st Contact Info) Description 06/26/2018 Transcribed Document [facility] [place] [facility] [place] [address] ProviderMg MD [address] [place] [address] Social History Tobacco Use Types Packs/Day Years Used Date Smoking Tobacco: Never Assessed Sex and Gender Information Value Date Recorded Sex Assigned at Not on file Legal Sex Male 1:09 PM CDT Gender Identity Not on file Sexual Orientation Not on file documented as of this encounter Miscellaneous Notes * Cerner Conversion Note - Mg Ritchie MD - 06/26/2018 2:26 PM CDT Patient Education Materials Follows:Medicine Atrial Fibrillation Introduction Atrial fibrillation is a [...] Follow these instructions at home: ??? Take [id number] and prescription medicines only as told by [...] 11/29/2008 Document Revised: 07/28/2016 Document Reviewed: 06/17/2015 ? 2017 Elsevier Radiology Electrophysiology Study An electrophysiology (EP) study is [...] including vitamins, herbs, eye drops, creams, and [id number] medicines. ??? Any problems you or family [...] Up to 2 hours before the procedure ? you may continue to drink clear liquids, such as water, clear fruit juice, black coffee, and plain tea. Eating and drinking restrictionsFollow instructions from your health care provider about eating and drinking, which may include: ??? 8 hours before the procedure ? stop eating heavy meals or foods such as meat, fried foods, or fatty foods. ??? 6 hours before the procedure ? stop eating light meals or foods, such as toast or cereal. ??? 6 hours before the procedure ? stop drinking milk or drinks that contain milk. ??? 2 hours before the procedure ? stop drinking clear liquids. Medicines??? Ask your health care provider about: ? [...] antibiotic medicine to help prevent infection. General instructions??? Plan to have someone take you home [...] 08/10/2010 Document Revised: 09/23/2016 Document Reviewed: 08/29/2016 [employer] Imagine Interactive Patient Education ? 2017 [employer] documented in this encounter Plan of Treatment Not on file documented as of this encounter Visit Diagnoses Not on filedocumented in this encounter
--- OUTSIDE RECORDS SUMMARY | 2025-01-08 15:14 | XMS_ITS | Encounter Summary ---
Author Organization [employer] ([place], [place], [place], [place], [place]) Address [address] [place] [address] Care Team Providers Care Plant Operations Vice President Name Role Phone Unavailable Primary Care Provider Unavailabl e Encounter Details Date Type Department Care Team (Late st Contact Info) Description 04/17/2018 Transcribed Document [facility] [place] [facility] [place] [address] ProviderMg MD [facility] [place] [address] Social History Tobacco Use Types Packs/Day Years Used Date Smoking Tobacco: Never Assessed Sex and Gender Information Value Date Recorded Sex Assigned at Not on file Legal Sex Male 1:09 PM CDT Gender Identity Not on file Sexual Orientation Not on file documented as of this encounter Miscellaneous Notes * Cerner Conversion Note - Historical ProviderMD - 04/17/2018 5:00 PM LINER MACHINE OPERATOR HELPER Chart Check - Review Order Profile Entered On: 04/17/2018 17:30 EST Performed On: 04/17/2018 17:00 EST by EVE NGUYEN RN Chart Check Chart Reviewed Date and Time : 04/17/2018 17:30 EST Power[employer]ans Initiated/Discontinued as Appropriate : Yes All Active Orders Reviewed : Yes EVE NGUYEN RN - 04/17/2018 17:30 EST Electronically signed by [facility] Conversion Residential Electrician Cerner at 06/19/2022 11:09 PM CDT documented in this encounter Plan of Treatment Not on file documented as of this encounter Visit Diagnoses Not on filedocumented in this encounter
--- OUTSIDE RECORDS SUMMARY | 2025-01-08 15:14 | XMS_ITS | Encounter Summary ---
Author Organization [employer] ([place], [place], [place], [place], [place]) Address [address] [place] [address] Care Team Providers Care Bean Weigher Name Role Phone Unavailable Primary Care Provider Unavailabl e Encounter Details Date Type Department Care Team (Late st Contact Info) Description 04/19/2018 Transcribed Document [facility] [place] Family Medicine Counts include 234 beds at the [facility] [address] ProviderMg MD Counts include 234 beds at the [facility] [address] Social History Tobacco Use Types Packs/Day Years Used Date Smoking Tobacco: Never Assessed Sex and Gender Information Value Date Recorded Sex Assigned at Not on file Legal Sex Male 1:09 PM CDT Gender Identity Not on file Sexual Orientation Not on file documented as of this encounter Miscellaneous Notes * Cerner Conversion Note - Historical ProviderMD - 04/19/2018 11:42 AM UKE DRIVER Spiritual Care Short Form Entered On: 04/19/2018 12:57 EST Performed On: 04/19/2018 11:42 EST by ANIKA MANRIQUEZ Chaplain-Non Cert General Information, Spiritual Care Spiritual Care Referred by : initiated Reason for Visit : Initial Ministry Provided to : Patient, Family/Significant other Intervention/Comment/Summary Points : Jose is a 47-year-old patient who continues to improve and has begun a new medication. He plans on discharge tomorrow. His vivaciouis is active and appears supportive. Provided pastoral care, empathic listening and emotional support. ANIKA MANRIQUEZ Chaplain-Non Cert - 04/19/2018 12:54 EST documented in this encounter Plan of Treatment Not on file documented as of this encounter Visit Diagnoses Not on filedocumented in this encounter
--- OUTSIDE RECORDS SUMMARY | 2025-01-08 15:14 | XMS_ITS | Encounter Summary ---
Author Organization [employer] ([place], [place], [place], [place], [place]) Address [address] [place] [address] Care Team Providers Care Cloth Bleaching Range Back Tender Name Role Phone Unavailable Primary Care Provider Unavailabl e Encounter Details Date Type Department Care Team (Late st Contact Info) Description 04/19/2018 Transcribed Document [facility] [place] [facility] [address] ProviderMg [place] [address] Social History Tobacco Use Types Packs/Day Years Used Date Smoking Tobacco: Never Assessed Sex and Gender Information Value Date Recorded Sex Assigned at Not on file Legal Sex Male 1:09 PM CDT Gender Identity Not on file Sexual Orientation Not on file documented as of this encounter Miscellaneous Notes * Cerner Conversion Note - Historical ProviderMD - 04/19/2018 5:00 AM SECRET CODE EXPERT Chart Check - Review Order Profile Entered On: 04/19/2018 6:22 EST Performed On: 04/19/2018 5:00 EST by JB GUTIERREZ RN Chart Check Chart Reviewed Date and Time : 04/19/2018 6:22 EST Powerplans Initiated/Discontinued as Appropriate : Yes All Active Orders Reviewed : Yes JB GUTIERREZ RN - 04/19/2018 6:22 EST Electronically signed by Jackie [facility] Conversion Hand Rug Braider Cerner at 06/19/2022 10:49 PM CDT documented in this encounter Plan of Treatment Not on file documented as of this encounter Visit Diagnoses Not on filedocumented in this encounter
--- OUTSIDE RECORDS SUMMARY | 2025-01-08 15:14 | XMS_ITS | Encounter Summary ---
Author Organization [employer] ([place], [place], [place], [place], [place]) Address [address] [place] [address] Care Team Providers Care Marine Scientist Name Role Phone Unavailable Primary Care Provider Unavailabl e Encounter Details Date Type Department Care Team (Late st Contact Info) Description 04/19/2018 Transcribed Document [facility] [place] [facility] [place] [address] ProviderMg MD [facility] [place] [address] Social History Tobacco Use Types Packs/Day Years Used Date Smoking Tobacco: Never Assessed Sex and Gender Information Value Date Recorded Sex Assigned at Not on file Legal Sex Male 1:09 PM CDT Gender Identity Not on file Sexual Orientation Not on file documented as of this encounter Miscellaneous Notes * Cerner Conversion Note - Mg Ritchie MD - 04/19/2018 3:53 PM POLYSOMNOGRAPHER DATE OF STUDY: 04/17/2018 SYNCHRONOUS DC CARDIOVERSION INDICATIONS: AFib refractory to medical therapy. Patient is already being chronically anticoagulated. PROCEDURE IN DETAIL: Patient was brought to the noninvasive cardiac laboratory where conscious sedation was performed for more than 23 minutes using intravenous Versed and fentanyl. Using a biphasic device with 360 joules in a synchronous mode, a single DC cardioversion was performed. The patient was converted successfully to normal sinus rhythm and woke up as usual within 10 minutes. He was transferred to his room in stable condition. No complications were noted. SUMMARY: Successful synchronous DC cardioversion to normal sinus rhythm. PLAN: 1. Continue current therapy. 2. Initiate Tikosyn. Leydi Hobbs M.D. Dict: 04/19/2018 15:53:04 Trans: 04/19/2018 16:39:52 CC1: Leydi Hobbs M.D. Electronically signed by Jackie [facility] Conversion Dining Room Attendant Cerner at 06/19/2022 11:14 PM CDT documented in this encounter Plan of Treatment Not on file documented as of this encounter Visit Diagnoses Not on filedocumented in this encounter
--- OUTSIDE RECORDS SUMMARY | 2025-01-08 15:14 | XMS_ITS | Encounter Summary ---
Author Organization [employer] ([place], [place], [place], [place], [place]) Address [address] [place] [address] Care Team Providers Care Peanut Grader Name Role Phone Unavailable Primary Care Provider Unavailabl e Encounter Details Date Type Department Care Team (Late st Contact Info) Description 04/16/2018 Transcribed Document [facility] [place] Family Medicine [facility] [place] [address] ProviderMg MD [facility] [place] [address] Social History Tobacco Use Types Packs/Day Years Used Date Smoking Tobacco: Never Assessed Sex and Gender Information Value Date Recorded Sex Assigned at Not on file Legal Sex Male 1:09 PM CDT Gender Identity Not on file Sexual Orientation Not on file documented as of this encounter Miscellaneous Notes * Cerner Conversion Note - Mg ProviderMD - 04/16/2018 11:08 AM CRYSTALIZER Patient: JOSE PEARSON Age: 47 years Sex: Male : 1970 Associated Diagnoses: None Author: VERNON DOAN PA Subjective Typically avoiding alcohol but did have 5 drinks the day he had v-fib. However A-fib has been bad for 1 month and he and his state no drinking all of March. PCP called to state TSH 0.001 and FT4 3.21 which is a new problem. Will recheck labs here. He is still A-fib here with VVR. No symptoms at rest. Health Status Allergies: Allergic Reactions (Selected) No [...] Use PRAVAstatin: 80 mg, Oral, At Bedtime Tylenol: 650 mg, Oral, Q4H, PRN: Pain (Mild 1-3) Xarelto: 20 mg, Oral, Daily Zofran: 4 mg, IV Push, Q6H, PRN: Nausea acetaminophen-HYDROcodone 325 mg-5 mg oral tablet: 1 Tab, Oral, Q4H, PRN: Pain (Moderate 4-6) albuterol: 1 Puff, Inhalation, QID, PRN: Shortness of Breath amiodarone: 400 mg, Oral, BID carvedilol: 6.25 mg, Oral, BID loratadine: 10 [...] Refill(s) fluticasone 50 mcg/inh nasal spray: 1 [place], Nostrils Both, Daily, 0 Refill(s) montelukast 10 mg oral tablet: 1 Tab, Oral, Daily, 0 Refill(s) pravastatin 80 mg oral tablet: 1 Tab, Oral, At Bedtime, 0 Refill(s) spironolactone: 25 mg, Oral, Daily, 0 Refill(s) Objective VS/Measurements Vitals Signs (last 24 hrs) Last Charted Minimum Maximum Temp 97.5 (APR 16 03:45) 97.5 (APR 16 03:45) 98 (APR 15 21:55) Apical HR 96 (APR 16 09:49) 96 (APR 16 09:49) H 129 (APR 16 00:00) Mon HR 70 (APR 16 03:45) 60 (APR 15 18:25) 89 (APR 15 15:33) Resp Rate 20 (APR 16 03:45) 18 (APR 15 15:33) 20 (APR 15 21:55) SBP 115 (APR 16 03:45) 105 (APR 16 00:00) 116 (APR 15 15:33) DBP 79 (APR 16 03:45) L 50 (APR 15 18:25) H 96 (APR 15 15:33) MAP 86 (APR 16 03:45) 65 (APR 15 18:25) 100 (APR 15 15:33) SpO2 97 (APR 16 03:45) 96 (B 21:55) 99 (B 15:33) General: Alert and oriented, No acute distress. Neck: No carotid bruit, No jugular venous distention. Respiratory: Lungs are clear to auscultation, Respirations are non-labored. Cardiovascular: No murmur, No edema, A-fib VVR. Gastrointestinal: Non-distended. Musculoskeletal: Normal ROM in bed. Integumentary: Warm, Dry, No rash. Neurologic: No deficits appreciated. Psychiatric: Cooperative, Appropriate mood & affect. Impression and Plan NID/CLSF s/p Syncope with V-fib s/p ICD shock x2 04/15 - EF <20% per office ECHO 03/22/18 - NYHA = 2-3 - EP consult: changed Sotalol to Amio, planning for AV node ablation later - TSH is <0.005 here. Check Free T4 and Total T3 - Pt had 5 ETOH day of v-fib. Counseled would be safter to completly DC all ETOH - ProBNP rising but nml CXR, no vol on exam. Advised to check daily weights. Cont Lasix 40 BID for now. - Cont Coreg, Entresto, Aldactone, Amiodarone PAF - worsening despite Sotalol therapy - as above, ETOH and hyperthyroidism contributing. Was unable to complete sleep study (could never fall asleep) - DC ETOH, Change Sotalol to Amio, check T4/T3 Hyperthyroidism - new dx this admission - TSH <0.005 - T4 2.86 - contributing to his poorly controlled A-fib, also has unintentional 10lb weight loss over the last month - consult ANGELA Htn - stable here, cont coreg, Entresto, Aldactone Addendum: still a-fib with RVR up to 150s. Change PO Amio to Amio drip. Plan for DCCV tomorrow afternoon. documented in this encounter Plan of Treatment Not on file documented as of this encounter Visit Diagnoses Not on filedocumented in this encounter
--- OUTSIDE RECORDS SUMMARY | 2025-01-08 15:14 | XMS_ITS | Encounter Summary ---
Author Organization [employer] ([place], [place], [place], [place], [place]) Address [address] [place] [address] Care Team Providers Care Lockmaker Name Role Phone Unavailable Primary Care Provider Unavailabl e Encounter Details Date Type Department Care Team (Late st Contact Info) Description 06/26/2018 Transcribed Document [facility] [place] Family Medicine [facility] [place] [address] ProviderMg MD [facility] [place] [id number] Social History Tobacco Use Types Packs/Day Years Used Date Smoking Tobacco: Never Assessed Sex and Gender Information Value Date Recorded Sex Assigned at Not on file Legal Sex Male 1:09 PM CDT Gender Identity Not on file Sexual Orientation Not on file documented as of this encounter Miscellaneous Notes * Cerner Conversion Note - Historical ProviderMD - 06/26/2018 2:34 PM CDT Event Note Entered On: 06/26/2018 14:37 EDT Performed On: 06/26/2018 14:34 EDT by Nancy Loyola Rn Event Note Event Date/Time : 06/26/2018 14:34 EDT Description of Event : Pt discharged. IV DC'd and telemetry monitoring removed. Discharge teaching provided and Pt verbalized understanding. Nancy Loyola Rn - 06/26/2018 14:34 EDT Electronically signed by Morales Mejia Conversion Infection Prevention Practitioner Cerner at 06/19/2022 10:49 PM CDT documented in this encounter Plan of Treatment Not on file documented as of this encounter Visit Diagnoses Not on filedocumented in this encounter
--- OUTSIDE RECORDS SUMMARY | 2025-01-08 15:14 | XMS_ITS | Encounter Summary ---
Author Organization [employer] ([place], [place], [place], [place], [place]) Address [address] [place] [address] Care Team Providers Care Vp Clinical Name Role Phone Unavailable Primary Care Provider Unavailabl e Encounter Details Date Type Department Care Team (Late st Contact Info) Description 04/17/2018 Transcribed Document [facility] [place] [facility] [place] [address] ProviderMg MD [facility] [place] [address] Social History Tobacco Use Types Packs/Day Years Used Date Smoking Tobacco: Never Assessed Sex and Gender Information Value Date Recorded Sex Assigned at Not on file Legal Sex Male 1:09 PM CDT Gender Identity Not on file Sexual Orientation Not on file documented as of this encounter Miscellaneous Notes * Cerner Conversion Note - Mg ProviderMD - 04/17/2018 1:43 PM PACU NURSE Care Management Assessment/Plan Entered On: 04/17/2018 13:45 EST Performed On: 04/17/2018 13:43 EST by Breann Ordaz, RN Care Management Note Anticipated Discharge Date : 04/17/2018 21:00 EST Care Management Note : Per provider notes, patient scheduled for a DCCV today 04/17/18. [place] to stop all alcohol use. Thyroid work up taking place during admission for new onset thyroid panel testing. Remains a home plan, no needs noted...arh Care Management Note Report : Breann Ordaz, RN - 04/16/18 09:22:27 chart [...] Complete : Yes Breann Ordaz, RN - 04/17/2018 13:43 EST Final Discharge Disposition Note-CM Discharge To Care Management : Home/Residential/Usp or Self Care -01 Breann Ordaz RN - 04/17/2018 13:43 EST Electronically signed by Jackie [facility] Conversion Fall Intern Cerner at 06/19/2022 11:09 PM CDT documented in this encounter Plan of Treatment Not on file documented as of this encounter Visit Diagnoses Not on filedocumented in this encounter
--- OUTSIDE RECORDS SUMMARY | 2025-01-08 15:14 | XMS_ITS | Encounter Summary ---
Author Organization [employer] ([place], [place], [place], [place], [place]) Address [address] [place] [address] Care Team Providers Care Ammonia Worker Name Role Phone Unavailable Primary Care Provider Unavailabl e Encounter Details Date Type Department Care Team (Late st Contact Info) Description 04/15/2018 Transcribed Document [facility] [place] Family Medicine [facility] [place] [address] ProviderMg MD [facility] [place] [address] Social History Tobacco Use Types Packs/Day Years Used Date Smoking Tobacco: Never Assessed Sex and Gender Information Value Date Recorded Sex Assigned at Not on file Legal Sex Male 1:09 PM CDT Gender Identity Not on file Sexual Orientation Not on file documented as of this encounter Miscellaneous Notes * Cerner Conversion Note - Historical ProviderMD - 04/15/2018 2:00 AM HOSPITALITY JOB TITLES ED Discharge Entered On: 04/15/2018 2:00 EST Performed On: 04/15/2018 2:00 EST by Zora Renteria family law legal assistant Process Patient Disposition : Admit/Observe Personal Belongings With Patient : Yes Patient Education Completed : Yes Teaching Evaluation : Returns demonstration, Verbalizes understanding Link to Valuables and Belongings form : No IV Discontinued : No Nursing Documentation Completed : Yes IV Therapy Comment : IV LEFT FOR ADMISSION TO FLOOR Zora Renteria RN - 04/15/2018 2:00 EST Admission, ED Nurse Report Accepted By : 3RD FLOOR Nurse Report Acceptance Time : 02/10/2019 23:00 EST `Nurse Report (Hand Off) : Called Accompanied By, Discharge : Care provider Fluids/Drips Continued on Admission : No Zora Renteria RN - 04/15/2018 2:00 EST Electronically signed by Jackie [facility] Conversion Frame Hand Cerner at 06/19/2022 10:53 PM CDT documented in this encounter Plan of Treatment Not on file documented as of this encounter Visit Diagnoses Not on filedocumented in this encounter
--- OUTSIDE RECORDS SUMMARY | 2025-01-08 15:14 | XMS_ITS | Encounter Summary ---
Author Organization [employer] ([place], [place], [place], [place], [place]) Address [address] [place] [address] Care Team Providers Care Net Lead Architect Name Role Phone Unavailable Primary Care Provider Stefan e Encounter Details Date Type Department Care Team (Late st Contact Info) Description 04/16/2018 Transcribed Document [facility] [place] [facility] [place] [address] ProviderMg MD [facility] [place] [id number] Social History Tobacco Use Types Packs/Day Years Used Date Smoking Tobacco: Never Assessed Sex and Gender Information Value Date Recorded Sex Assigned at Not on file Legal Sex Male 1:09 PM CDT Gender Identity Not on file Sexual Orientation Not on file documented as of this encounter Miscellaneous Notes * Cerner Conversion Note - Mg ProviderMD - 04/16/2018 6:16 PM DYE ROOM HELPER Patient: JOSE PEARSON Age: 47 years Sex: Male : 1970 Associated Diagnoses: None Author: ARIANNA GARCIA DO Basic Information PCP Herberth Perez Chief Complaint abnormal thyroid labs History of Present Illness 47 yo male with recent increase of episodes of a fib, admitted to cardiology service and evaluated by EP. Pt noted to have abnormal thyroid studies, we are asked to further eval/make recs. Pt indicates that pt had hyperthyroidism > 5 years ago, was seen by an instrument maker and repairer, but that it spontaneously resolved thereafter and she linked that resolution to cessation of digoxin around that time. They do not believe he ever had any specific diagnosis of Graves, multinodular goiter, etc. She indicates that he was notified by pcp within the last week or so that his labs were off, as he had recently gone in for a routine evaluation. He has noted some diarrhea and weight loss over the last 2 weeks, but no other symtpoms. He does feel his palpitations when he has rapid a fib. He denies any hair, nail, or skin changes. He denies any significant personality changes. He denies neck swelling or other localized swelling. He has noted episodes of sweating and feeling hot at times. He does confirm ED, but states this is not a new issue Review of Systems Constitutional: No fever, No chills. Ear/Nose/Mouth/Throat: No nasal congestion, No sore throat. Respiratory: No shortness of breath, No cough. Integumentary: No rash, No pruritus. Neurologic: No numbness, No headache. Health Status Allergies: Allergic Reactions (Selected) No Known Medication Allergies Current medications: (Selected) Inpatient Medications Ordered Colace: [...] Puff, Inhalation, QID, PRN: Shortness of Breath amiodarone injection 360 mg +: Titrate, IntraVENous carvedilol: 6.25 mg, Oral, BID loratadine: 10 [...] Refill(s) fluticasone 50 mcg/inh nasal spray: 1 [place], Nostrils Both, Daily, 0 Refill(s) montelukast 10 mg oral tablet: 1 Tab, Oral, Daily, 0 Refill(s) pravastatin 80 mg oral tablet: 1 Tab, Oral, At Bedtime, 0 Refill(s) spironolactone: 25 mg, Oral, Daily, 0 Refill(s) Problem list: Medical angina / SNOMED CT 629627351 / Confirmed At risk for sleep apnea / IMO 45181938 / Confirmed cardiac defibulator / Confirmed interrogated at physicians office---02/22/13 pacemaker / SNOMED CT 9123255540 / Confirmed stroke / SNOMED CT 476651434 / Confirmed he had a stroke when they found the blood clot in valve 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 / Confirmed treated with blood thinners History of obstructive sleep apnea / IMO 48935335 / Confirmed high cholesterol / SNOMED CT 05788948 / Confirmed hypertension / SNOMED CT 2882111763 / Confirmed myocardial infarction / SNOMED CT 88396799 / Confirmed sesonal allergies / Confirmed, Active Problems (19) stroke angina Asthma At risk for sleep apnea cardiac defibulator Cardiomyopathy 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 GERD - Gastro-esophageal reflux disease H/O: CVA Heart failure high cholesterol History of obstructive sleep apnea Hyperlipidemia hypertension Hypotension Moderate protein-calorie malnutrition myocardial infarction pacemaker sesonal allergies Histories Past Medical History: prior hx hyperthyroidism' many years prior of unclear etiology, duration a fib tobacco use Family History: no known thryroid, endocrinological d/o in family heart disease in the family Procedure history: AICD. right ankle pins & [...] Examination VS/Measurements Measurements from flowsheet : Measurements 04/15/2018 5:00 EST Height Source Stated Height Entry Format [place] Height/Length, TURKMEN (ft) 6 ft Height/Length TURKMEN 0 Inch CLINICALHEIGHT 182.88 cm Routine Weight Source Standing scale Routine Weight Entry Format [place] Routine Weight, Pounds 228 lb Routine Weight, Ounces 6 oz Routine Weight Calculation 103.81 kg Body Mass Index (BMI), Routine 31.04 kg/m2 Body Surface Area (BSA), Routine 2.26 m2 , Vitals Signs (last 24 hrs) Last Charted Minimum Maximum Temp 98.3 (APR 16 18:05) 97.7 (APR 16 09:55) 98 (APR 15 21:55) Apical HR 96 (APR 16 09:49) 96 (APR 16 09:49) H 129 (APR 16 00:00) Mon HR 97 (APR 16 18:05) 60 (APR 15 18:25) 97 (APR 16 18:05) Resp Rate 18 (APR 16 18:05) 18 (APR 16 09:55) 20 (APR 15 21:55) SBP L 88 (APR 16 18:05) L 88 (APR 16 18:05) 124 (APR 16 09:55) DBP 60 (APR 16 18:05) L 50 (APR 15 18:25) 79 (APR 16 03:45) MAP 66 (APR 16 18:05) 65 (APR 15 18:25) 86 (APR 16 03:45) SpO2 97 (APR 16 18:05) 96 (APR 15 21:55) 97 (APR 15 18:25) General: Alert and oriented, No acute distress. Eye: Pupils are equal, round and reactive to light, Extraocular movements are intact, Normal conjunctiva. HENT: Normocephalic, Normal hearing, Oral mucosa is moist. Neck: Supple, Non-tender, No carotid bruit, No jugular venous distention, No lymphadenopathy, No thyromegaly. Respiratory: Lungs are clear to auscultation, Respirations are non-labored, Breath sounds are equal, Symmetrical chest wall expansion. Cardiovascular: Good pulses equal in all extremities, Normal peripheral perfusion, irregular. Gastrointestinal: Soft, Non-tender. Musculoskeletal: No swelling, No deformity. Integumentary: Warm, Dry, No pallor, No rash. Neurologic: Alert, Oriented. Cognition and Speech: Oriented, Speech clear and coherent. Psychiatric: Cooperative, Appropriate mood & affect. Review / Management Results review: Labs (Last four charted values) WBC 6.8 (B 10) 6.0 (APR 09) HB 13.8 (B 10) 14.2 (APR 09) HCT 41.4 (B 10) 42.0 (B 09) Plt 261 (B 10) 284 (B 09) Na L 135 (B 09) 136 (B 09) K 3.9 (B ) 4.0 (APR 14) Cl 103 (B ) 103 (FEB 09) CO2 24 (APR 14) 25 (APR 14) [...] <0.015 (APR 14) . Impression and Plan hyperthyroidism add thyroid ab, free T3, u/s with color doppler to thyroid he will likely require I uptake study as an outpt with endocrinology referral, sooner rather than later given his issues with his arrhythmia cardiac dysrhythmia would recommend that amiodarone not be used in this setting, until further information is gained in regards to the functionality of the thyroid and its use of Iodine additional available iodine has the possibility to provide increased substrate for hyperthyroidism it pts amiodarone can induce either hypo or hyperthyroidism, and it also inhibits extrathyroidal conversion of T4 to T3 in all patients htn, hld; per primary thanks for the consult; will f/u on ultrasound results, but the labs are send outs and will not be available for days, he should f/u closely as an outpt with endocrinology, will ask cm to assist in obtaining an appt d/w pt, family Electronically signed by Morales Mejia Conversion Systems Testing Laboratory Technician Jessica at 06/19/2022 10:48 PM CDT documented in this encounter Plan of Treatment Not on file documented as of this encounter Visit Diagnoses Not on filedocumented in this encounter
--- OUTSIDE RECORDS SUMMARY | 2025-01-08 15:14 | XMS_ITS | Encounter Summary ---
Author Organization [email or web address] ([place], [place], [place], [place], [place]) Address [address] [place] [address] Care Team Providers Care Final Inspection Supervisor Name Role Phone Unavailable Primary Care Provider Unavailabl e Encounter Details Date Type Department Care Team (Late st Contact Info) Description 04/19/2018 Transcribed Document [facility] Family Medicine [facility] [place] [address] ProviderMg MD [facility] [place] [address] Social History Tobacco Use Types Packs/Day Years Used Date Smoking Tobacco: Never Assessed Sex and Gender Information Value Date Recorded Sex Assigned at Not on file Legal Sex Male 1:09 PM CDT Gender Identity Not on file Sexual Orientation Not on file documented as of this encounter Miscellaneous Notes * Cerner Conversion Note - Historical ProviderMD - 04/19/2018 5:00 PM MANAGER DEMAND Chart Check - Review Order Profile Entered On: 04/19/2018 15:07 EST Performed On: 04/19/2018 17:00 EST by Ana Montenegro RN Chart Check Chart Reviewed Date and Time : 04/19/2018 15:07 EST Powerplans Initiated/Discontinued as Appropriate : Yes All Active Orders Reviewed : Yes Ana Montenegro RN - 04/19/2018 15:07 EST Electronically signed by Jackie [facility] Conversion Ball Warper Tender Cerner at 06/19/2022 11:12 PM CDT documented in this encounter Plan of Treatment Not on file documented as of this encounter Visit Diagnoses Not on filedocumented in this encounter
--- OUTSIDE RECORDS SUMMARY | 2025-01-08 15:14 | XMS_ITS | Encounter Summary ---
Author Organization [employer] ([place], [place], [place], [place], [place]) Address [address] [place] [address] Care Team Providers Care Adapted Physical Education Specialist Name Role Phone Unavailable Primary Care Provider Unavailabl e Encounter Details Date Type Department Care Team (Late st Contact Info) Description 04/19/2018 Transcribed Document [facility] Family Medicine [place] [address] Provider[place] [address] Social History Tobacco Use Types Packs/Day Years Used Date Smoking Tobacco: Never Assessed Sex and Gender Information Value Date Recorded Sex Assigned at Not on file Legal Sex Male 1:09 PM CDT Gender Identity Not on file Sexual Orientation Not on file documented as of this encounter Miscellaneous Notes * Cerner Conversion Note - Historical ProviderMD - 04/19/2018 5:00 AM TEST DATA DEVELOPER Height and Weight, Routine Entered On: 04/19/2018 5:58 EST Performed On: 04/19/2018 5:00 EST by Polly Renteria [facility] Unit Coord Height and Weight, Routine Routine Weight Source : Standing scale Routine Weight Entry Format : [place] Routine Weight, Pounds : 229 lb Routine Weight, Ounces : 9 oz Routine Weight Calculation : 104.35 kg Height Source : Stated Height Entry Format : [place] Height, Feet : 6 ft Height, Inches : 0 Inch Clinical Height : 182.88 cm Body Surface Area (BSA), Routine : 2.26 m2 Body Mass Index (BMI), Routine : 31.2 kg/m2 Polly Renteria Care [facility] Unit Coord - 04/19/2018 5:58 EST documented in this encounter Plan of Treatment Not on file documented as of this encounter Visit Diagnoses Not on filedocumented in this encounter
--- OUTSIDE RECORDS SUMMARY | 2025-01-08 15:14 | XMS_ITS | Encounter Summary ---
Author Organization [employer] ([place], [place], [place], [place], [place]) Address [address] [place] [address] Care Team Providers Care Hog Ribber Name Role Phone Unavailable Primary Care Provider Unavailabl e Encounter Details Date Type Department Care Team (Late st Contact Info) Description 06/26/2018 Transcribed Document [facility] Radiology [address] [place] [address] Judy Perry MD [facility] [address] [address] Social History Tobacco Use Types Packs/Day Years Used Date Smoking Tobacco: Never Assessed Sex and Gender Information Value Date Recorded Sex Assigned at Not on file Legal Sex Male 1:09 PM CDT Gender Identity Not on file Sexual Orientation Not on file documented as of this encounter Miscellaneous Notes * Cerner Conversion Note - Judy Perry MD - 06/26/2018 11:01 AM EDT Patient: JOSE PEARSON Age: 48 years Sex: Male : 1970 Associated Diagnoses: None Author: JUDY PERRY MD-INT Admission Date: 06/25/18 Discharge Date: 06/26/18 Admission Dx: dilated cardiomyopathy , afib w/ RVR Discharge Dxs: dilated cardiomyopathy , afib w/ RVR s/p AV node ablation per Dr. Davis 06/25/18 preop afib w/ RVR intermittently hx stroke hx angina hx Asthma hx At risk for sleep apnea hx cardiac defibulator hx Cardiomyopathy hx GERD - Gastro-esophageal reflux disease H/O: CVA hx Heart failure hx high cholesterol History of obstructive sleep apnea hx Hyperlipidemia hx hypertension hx Hypotension hx myocardial infarction hx pacemaker hx seasonal allergies hx cardiac catheterization hx right ankle pins with rods hx hernia repair Plan: DC home Follow-up Dr. Davis in 2 weeks Diet per usual routine Activity per EP discretion Consultants: Dr. Davis-Electrophysiology Procedures: 06/25/18: Electrophysiology study, 3 dimensional mapping, His mapping, ablation of atrioventricular miroslava function for episodes of atrial fibrillation with rapid ventricular rate in a patient with dilated cardiomyopathy, consistent with multiple implantable cardioverter-defibrillator shocks per Dr. Davis Hospital Course: Patient is a 48 yo male admitted to [facility] per Dr. Davis for a cardiac ablation. Preoperatively patient was found to have persistent atrial fib not controlled with conservative treatment modalities. Patient also noted to have dilated cardiomyopathy with episodes of RVR. Patient was recommended ablation per Dr. Davis and admitted post-procedure for overnight monitoring. Initial visit with patient was in [facility] prior to procedure. Patient stated he had thyroid control out of whack in feb and he went into Vfib. Said he has had afib issues chronically for years that were exacerbated by thyroid disease. hx heart attack, stroke. Said he had noted residual memory issues. Pt reported he used smokeless tobacco dip/snuff forever, not sure if I plan to quit. Family history of coronary artery dsease. Father had heart attack, COPD. Multiple family members with stroke. Mother at age 63 from multiple medical issues including diabetes, HTN, ESRD on HD. Pt stated he is on medications for HTN, HLD. Not currently on thryoid replacement, states he was told once his sleep apnea and cadiac issues resolve his thyroid issues will also resolve. . Did report seasonal allergies. Pt says he thinks he has sleep apnea. Reports 2 prior episodes that are inconclusive but was told by Dr. Davis during surgery last month he likely suffers from it with upcoming outpatient sleep study this coming Monday. Pt tolerated procedure without complications. Monitored overnight. Seen todayprior to DC and says he feels great. Denies any issues or complaints. Family Hx: HTN, renal failure, coronary artery [...] Reaction No Known Medication Allergies None Documented Exam: Vitals Signs (last 24 hrs) Last Charted Minimum Maximum Temp 97.8 (JUN 26 06:11) 97.8 (JUN 26 06:11) 97.2 (JUN 25 11:09) Apical HR 82 (JUN 26 09:31) 82 (JUN 26 09:31) 82 (JUN 26 09:31) Mon HR 80 (JUN 26 06:11) 80 (JUN 25 17:45) 88 (JUN 25 18:45) Periph HR 71 (JUN 25 11:09) 71 (JUN 25 11:09) 71 (JUN 25 11:09) Resp Rate 16 (JUN 26 06:11) L 12 (JUN 25 18:30) H 22 (JUN 25 19:45) SBP 99 (JUN 26 06:11) L 88 (JUN 26 02:27) 133 (JUN 25 18:45) DBP 64 (JUN 26 06:11) L 55 (JUN 26 02:27) 80 (JUN 25 18:45) MAP 78 (JUN 26 06:11) 62 (JUN 26 02:27) 104 (JUN 25 18:45) SpO2 98 (JUN 25 22:15) 95 (JUN 25 18:00) 99 (JUN 25 19:30) obese white man in no distress; pleasant, cooperative, good historian; present nc/at, eomi, PEERL, pink conjunctiva, moist mucous membranes, no thyromegaly or cervical lymphadenopathy =expansion b/l without wheezes rales or rhonchi non-displaced PMI, reg s1, s2 ABDis soft non-tender, non-distended, norm bowel sounds skin warm, dry without rashes ext: without edema, no calf tenderness neuro: cn 2-12 intact; no gross motor -sensory deficits psych: normal affect, good mood Data: Blood Gases (Current Encounter/Past 24 Hours) No Blood Gas Results Found (Past 24 Hours) Electrolytes(BMP) Results (Current Encounter/Past 24 Hours) Sodium Level 136 mmol/L 06/26/2018 07:16 Potassium Level 4.1 mmol/L 06/26/2018 07:16 Chloride Level 103 mmol/L 06/26/2018 07:16 Carbon Dioxide Level 25 mmol/L 06/26/2018 07:16 Anion Gap 12 06/26/2018 07:16 Blood Urea Nitrogen 17 mg/dL 06/26/2018 07:16 Glucose Level 88 mg/dL 06/26/2018 07:16 Calcium Level 9.0 mg/dL 06/26/2018 07:16 Creatinine Level 0.70 mg/dL 06/26/2018 07:16 Cardiac Markers (Current Encounter/Past 24 Hours) No Cardiac Marker Results Found (Past 24 Hours) CBC Results (Current Encounter/Past 24 Hours) WBC 8.3 K/uL 06/26/2018 06:54 Hct 46.0 % 06/26/2018 06:54 Hgb 15.4 g/dL 06/26/2018 06:54 Platelet Count 264 K/uL 06/26/2018 06:54 CMP Results (Current Encounter/Past 24 Hours) Creatinine Level 0.70 mg/dL 06/26/2018 07:16 Bun/Creatinine 24.3 HI 06/26/2018 07:16 eGFR >60 mL/min/1.73m2 06/26/2018 07:16 eGFR NonAfrican >60 mL/min/1.73m2 06/26/2018 07:16 Bun/Creatinine 24.3 HI 06/26/2018 07:29 Sodium Level 136 mmol/L 06/26/2018 07:16 Potassium Level 4.1 mmol/L 06/26/2018 07:16 Chloride Level 103 mmol/L 06/26/2018 07:16 Carbon Dioxide Level 25 mmol/L 06/26/2018 07:16 Anion Gap 12 06/26/2018 07:16 Blood Urea Nitrogen 17 mg/dL 06/26/2018 07:16 Glucose Level 88 mg/dL 06/26/2018 07:16 Calcium Level 9.0 mg/dL 06/26/2018 07:16 Coagulation Results (Current Encounter/Past 24 Hours) No Coagulation Results Found (Past 24 Hours) Creatinine Clearance (Current Encounter/Past 24 Hours) Creatinine Level 0.70 mg/dL 06/26/2018 07:16 Bun/Creatinine 24.3 HI 06/26/2018 07:16 Estimated Creatinine Clearance 140.11 mL/Min 06/26/2018 07:16 see supporting data below *[facility] Allergies: Allergic Reactions (Selected) No Known Medication Allergies, Allergies (1) Active Reaction No Known Medication Allergies None Documented Current medications: (Selected) Inpatient Medications Ordered Chloraseptic 6 mg-10 mg mucous membrane lozenge: 1 Lozenge, Oral, Q2H, PRN: Sore Throat Colace: 100 mg, Oral, Daily Dulcolax Laxative: 10 mg, Rectal, Daily, PRN: Constipation DuoNeb 0.5 mg-2.5 mg/3 mL inhalation solution: 3 mL, Nebulized Inhalation, 1-Time, PRN: Shortness of Breath Entresto 24 mg-26 mg oral tablet: 1 Tab, Oral, BID FLUoxetine: 20 mg, Oral, At Bedtime Lasix: 40 mg, Oral, BID Melatonin: 3 mg, Oral, At Bedtime Milk of Magnesia 8% oral suspension: 30 mL, Oral, Daily, PRN: Constipation Nitrostat: 0.4 mg, SubLINgual, Q5Min, PRN: Chest Pain Normal Saline Flush: 10 mL, IV Push, Q12H Normal Saline Flush: 10 mL, IV Push, See Comment, PRN: IV Use PRAVAstatin: 80 mg, Oral, At Bedtime Phenergan: 12.5 mg, IV Push, Q6H, PRN: Nausea Tikosyn: 250 mcg, Oral, BID Tylenol: 650 mg, Oral, Q4H, PRN: Pain (Mild 1-3) Zofran: 4 mg, IV Push, Q4H, PRN: Nausea acetaminophen-HYDROcodone 325 mg-5 mg oral tablet: 1 Tab, Oral, Q4H, PRN: Pain (Moderate 4-6) carvedilol: 6.25 mg, Oral, BID cloNIDine: 0.2 mg, Oral, Q4H, PRN: Hypertension fluticasone 50 mcg/inh nasal spray: 50 mcg, 1 [place], Nostrils Both, Daily hydrALAZINE: 10 mg, IV Push, Q6H, PRN: Hypertension ibuprofen: 200 mg, Oral, Q6H, PRN: Pain (Mild 1-3) loratadine: 10 mg, Oral, Daily montelukast: 10 mg, Oral, Daily spironolactone: 25 mg, Oral, Daily Documented Medications [...] Refill(s) fluticasone 50 mcg/inh nasal spray: 1 [place], Nostrils Both, Daily, 0 Refill(s) montelukast 10 mg oral tablet: 1 Tab, Oral, Daily, 0 Refill(s) pravastatin 80 mg oral tablet: 1 Tab, Oral, At Bedtime, 0 Refill(s) spironolactone: 25 mg, Oral, Daily, 0 Refill(s), Medications (26) Active Scheduled: (13) #NaCl 0.9% *FLUSH* inj 10 mL 10 mL, IV Push, Q12H carvedilol 6.25 mg tab 6.25 mg 1 Tab, Oral, BID docusate sodium 100 mg cap 100 mg 1 Cap, Oral, Daily dofetilide 250 mcg cap 250 mcg 1 Cap, Oral, BID FLUoxetine 20 mg cap 20 mg 1 Cap, Oral, At Bedtime fluticasone 0.05% nasal spray 50 mcg 1 [place]illy, Nostrils Both, Daily furosemide 40 mg tab 40 mg 1 Tab, Oral, BID loratadine 10 mg tab 10 mg 1 Tab, Oral, Daily melatonin 3 mg tab 3 mg 1 Tab, Oral, At Bedtime montelukast 10 mg tab 10 mg 1 Tab, Oral, Daily PRAVAstatin sodium 20 mg tab 80 mg 4 Tab, Oral, At Bedtime sacubitril-valsartan 24 mg-26 mg tab 1 Tab, Oral, BID spironolactone 25 mg tab 25 mg 1 Tab, Oral, Daily Continuous: (0) PRN: (13) #NaCl 0.9% *FLUSH* inj 10 mL 10 mL, IV Push, See Comment acetaminophen 325 mg tab 650 mg 2 Tab, Oral, Q4H acetaminophen/HYDROcodone 325/5 mg tab 1 Tab, Oral, Q4H albuterol-ipratropium inh 3 mL 3 mL, Nebulized Inhalation, 1-Time benzocaine-menthol 6 mg rin 1 Lozenge, Oral, Q2H bisacodyl 10 mg supp 10 mg 1 Supp, Rectal, Daily cloNIDine 0.2 mg tab 0.2 mg 1 Tab, Oral, Q4H hydrALAZINE 20 mg/1 mL inj 10 mg 0.5 mL, IV Push, Q6H ibuprofen 200 mg tab 200 mg 1 Tab, Oral, Q6H magnesium hydroxide 8% liq 30 mL 30 mL, Oral, Daily nitroglycerin 0.4 mg tab # 25 btl 0.4 mg 1 Tab, SubLINgual, Q5Min ondansetron 4 mg/2 mL inj 4 mg 2 mL, IV Push, Q4H promethazine 25 mg/1 mL inj 12.5 mg 0.5 mL, IV Push, Q6H Problem list: Medical angina / SNOMED CT 709889155 / Confirmed At risk for sleep apnea / IMO 20776648 / Confirmed cardiac defibulator / Confirmed interrogated at physicians office---02/22/13 pacemaker / SNOMED CT 1434725006 / Confirmed stroke / SNOMED CT 837537119 / Confirmed he had a stroke when they found the blood clot in valve History of obstructive sleep apnea / IMO 05621334 / Confirmed high cholesterol / SNOMED CT 59693052 / Confirmed hypertension / SNOMED CT 4813115739 / Confirmed myocardial infarction / SNOMED CT 54201595 / Confirmed sesonal allergies / Confirmed Resolved: 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 treated with blood thinners, Active Problems (17) stroke angina Asthma At [...] hrs) Last Charted Minimum Maximum Temp 97.8 (JUN 26 06:11) 97.8 (JUN 26 06:11) 97.2 (JUN 25 11:09) Apical HR 82 (JUN 26 09:31) 82 (JUN 26 09:31) 82 (JUN 26 09:31) Mon HR 80 (JUN 26 06:11) 80 (JUN 25 17:45) 88 (JUN 25 18:45) Periph HR 71 (JUN 25 11:09) 71 (JUN 25 11:09) 71 (JUN 25 11:09) Resp Rate 16 (JUN 26 06:11) L 12 (JUN 25 18:30) H 22 (JUN 25 19:45) SBP 99 (JUN 26 06:11) L 88 (JUN 26 02:27) 133 (JUN 25 18:45) DBP 64 (JUN 26 06:11) L 55 (JUN 26 02:27) 80 (JUN 25 18:45) MAP 78 (JUN 26 06:11) 62 (JUN 26 02:27) 104 (JUN 25 18:45) SpO2 98 (JUN 25 22:15) 95 (JUN 25 18:00) 99 (JUN 25 19:30) Review / Management Results review: Labs (Last four charted values) WBC 8.3 (JUN 26) HB 15.4 (JUN 26) HCT 46.0 (JUN 26) Plt 264 (JUN 26) 277 (JUN 25) Na 136 (JUN 26) K 4.1 (JUN 26) Cl 103 (JUN 26) CO2 25 (JUN 26) BUN 17 (JUN 26) Cr 0.70 (JUN 26) Glu R 88 (JUN 26) Ca 9.0 (JUN 26) . documented in this encounter Plan of Treatment Not on file documented as of this encounter Visit Diagnoses Not on filedocumented in this encounter
--- OUTSIDE RECORDS SUMMARY | 2025-01-08 15:14 | XMS_ITS | Encounter Summary ---
Author Organization [employer] ([place], [place], [place], [place], [place]) Address [address] [place] [address] Care Team Providers Care Canvas Goods Maker Name Role Phone Unavailable Primary Care Provider Unavailabl e Encounter Details Date Type Department Care Team (Late st Contact Info) Description 04/15/2018 Transcribed Document [facility] Family Medicine [facility] [place] [address] ProviderMg MD [facility] [place] [address] Social History Tobacco Use Types Packs/Day Years Used Date Smoking Tobacco: Never Assessed Sex and Gender Information Value Date Recorded Sex Assigned at Not on file Legal Sex Male 1:09 PM CDT Gender Identity Not on file Sexual Orientation Not on file documented as of this encounter Miscellaneous Notes * Cerner Conversion Note - Mg Ritchie MD - 04/15/2018 1:54 PM FIBER OPTICS TECHNICIAN Patient: JOSE PEARSON Age: 47 years Sex: Male : 1970 Associated Diagnoses: None Author: JONATAN ISABEL MD-CAR EP CONSULTATION NOTE: Requested by Dr Muñoz Indication - VT/VF DIAGNOSIS: 1. VF episode 2. PAF/RVR 3. Non ischemic cardiomyopathy SUBJECTIVE: Pt suffered an ICD shock last PM - feels OK rt now, no worsening SOB/edema/PND. PRIOR HX: 47-year-old male with history of longstanding nonischemic cardiomyopathy, ? etoh associated, LHC: normal coronaries, the patient has a [facility] [employer] ICD in situ. He has a hx of PAF/RVR, ICD interrogation - currently in AF, A paced 12%, BIV paced 85%, AF burden 10%, lead threshold/sensing/impedances/gen battery - all within the norm. VHRE - was due to Apr 13 9:13PM - VF, numerous NSVT's 8-30 seconds in duration despite Sotalol Rx. His AF burden has increased since mid Feb 2018. Echo - LVEF Mar 22 2018- <20%. , the patient was recently admitted to [facility] for right heart catheterization, he was [...] twice. He was therefore brought in to [facility] emergency room. Review of Systems Constitutional: [...] Refill(s) fluticasone 50 mcg/inh nasal spray: 1 [place], Nostrils Both, Daily, 0 Refill(s) montelukast 10 [...] Problem list: Medical angina / SNOMED CT 762593464 / Confirmed At risk for sleep apnea / IMO 45916588 / Confirmed cardiac defibulator / Confirmed interrogated at physicians office---02/22/13 pacemaker / SNOMED CT 5285131901 / Confirmed stroke / SNOMED CT 599887134 / Confirmed he had a stroke when they found the blood clot in valve 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 / Confirmed treated with blood thinners History of obstructive sleep apnea / IMO 71439483 / Confirmed high cholesterol / SNOMED CT 85448417 / Confirmed hypertension / SNOMED CT 1219207151 / Confirmed myocardial infarction / SNOMED CT 31042345 / Confirmed sesonal allergies / Confirmed, Active [...] Hernia repair. heart attack. chf. cva. Social History: . Still drinking!, dips tobacco as well. TELE: AF, RVR, V ectopy, NSVT Blood Gases (Current Encounter/Past 24 Hours) No Blood Gas Results Found (Past 24 Hours) Labs (Last four charted values) WBC 6.8 (FEB 10) 6.0 (FEB 09) HB 13.8 (FEB 10) 14.2 (FEB 09) HCT 41.4 (FEB 10) 42.0 (FEB 09) Plt 261 (FEB 10) 284 (FEB 09) Na L 135 (FEB 09) 136 (FEB 09) K 3.9 (FEB 09) 4.0 (FEB 09) Cl 103 (FEB 09) 103 (FEB 09) CO2 24 (FEB 09) 25 (FEB 09) BUN 21 (B 09) 21 (FEB 09) Cr 0.71 (B 09) 0.81 (FEB 09) Glu R 95 (B 09) H 116 (FEB 09) Ca L 8.4 (B 09) 8.8 (FEB 09) PT H 12.5 (FEB 10) H 14.3 (B 09) INR H 1.2 (FEB 10) H 1.4 (FEB 09) PTT H 31.4 (FEB 10) H 33.3 (FEB 09) AST 22 (B ) 24 (FEB 09) ALT 37 (B ) 36 (FEB 09) ALK P 75 (B ) 74 (B 09) T Bili H 1.4 (B ) H 1.5 (B 09) PTN 7.4 (B ) 7.5 (B 09) ALB L 3.3 (B 09) 3.4 (FEB 09) Troponin 0.020 (B 09) <0.015 (B ) Vitals Signs (last 24 hrs) Last Charted Minimum Maximum Temp 97.4 (B 10 10:49) 97.4 (B 10 10:49) 98.1 (B 19:04) Mon HR 67 (B 10 10:49) 67 (FEB 10 10:49) 116 (B 22:58) Periph HR 91 (APR 14 19:04) 91 (APR 14 19:04) 91 (APR 14:04) Resp Rate 18 (APR 15 10:49) 16 (APR 14 19:15) H 45 (APR 14:45) SBP 118 (APR 15 10:49) L 89 (APR 14 19:04) 118 (B 10:49) DBP L 57 (APR 15 10:49) L 55 (APR 14 21:45) 83 (APR 14 22:58) MAP 69 (APR 15 10:49) 69 (APR 15 10:49) 92 (APR 14 22:58) SpO2 98 (APR 15 10:49) L 90 (APR 14 21:45) 100 (APR 14 21:30) EXAM: Alert & Orientated, No apparent distress. HEAD&NECK: No JVD, No carotid bruit, No masses CORONARY: RRR, S1/S2, No murmurs LUNGS: CTA/B, No rhonchi, No wheeze ABDOMEN: Soft, Non-tender, Positive Bowel sounds EXTREMITIES: No edema, No cyanosis. IMPLANT SITE: Intact/healthy IMPRESSION: 1. VF episode 2. Freq V ectopy/NSVT 3. PAF/RVR 4. Non ischemic cardiomyopathy 5. Still binge drinking - counseled to quit. 6. Dips tobacco -counseled. PLAN: DC Sotalol. Start oral amiodarone at 400mg PO QD. After pt's rhythm is more stable - will DC home, and he is to FU with me in EP clinic, I plan to offer AV miroslava ablation to prevent AF/RVR. documented in this encounter Plan of Treatment Not on file documented as of this encounter Visit Diagnoses Not on filedocumented in this encounter
--- OUTSIDE RECORDS SUMMARY | 2025-01-08 15:14 | XMS_ITS | Encounter Summary ---
Author Organization [employer] ([place], [place], [place], [place], [place]) Address [address] [place] [address] Care Team Providers Care Cement Storage Worker Name Role Phone Unavailable Primary Care Provider Unavailabl e Encounter Details Date Type Department Care Team (Late st Contact Info) Description 04/18/2018 Transcribed Document [facility] [place] [facility] [place] [address] ProviderMg MD [facility] [place] [address] Social History Tobacco Use Types Packs/Day Years Used Date Smoking Tobacco: Never Assessed Sex and Gender Information Value Date Recorded Sex Assigned at Not on file Legal Sex Male 1:09 PM CDT Gender Identity Not on file Sexual Orientation Not on file documented as of this encounter Miscellaneous Notes * Cerner Conversion Note - Historical ProviderMD - 04/18/2018 5:00 AM WOOD BOAT BUILDER SUPERVISOR Chart Check - Review Order Profile Entered On: 04/18/2018 4:38 EST Performed On: 04/18/2018 5:00 EST by GREG MONROY, RN Chart Check [employer] Initiated/Discontinued as Appropriate : Yes GREG MONROY RN - 04/18/2018 4:38 EST documented in this encounter Plan of Treatment Not on file documented as of this encounter Visit Diagnoses Not on filedocumented in this encounter
--- OUTSIDE RECORDS SUMMARY | 2025-01-08 15:14 | XMS_ITS | Encounter Summary ---
Author Organization [employer] ([place], [place], [place], [place], [place]) Address [address] [place] [address] Care Team Providers Care Nursing Secretary Name Role Phone Unavailable Primary Care Provider Unavailabl e Encounter Details Date Type Department Care Team (Late st Contact Info) Description 04/19/2018 Transcribed Document [facility] Family Medicine [facility] [place] [address] ProviderMg MD [facility] [place], [place] [address] Social History Tobacco Use Types Packs/Day Years Used Date Smoking Tobacco: Never Assessed Sex and Gender Information Value Date Recorded Sex Assigned at Not on file Legal Sex Male 1:09 PM CDT Gender Identity Not on file Sexual Orientation Not on file documented as of this encounter Miscellaneous Notes * Cerner Conversion Note - Historical ProviderMD - 04/19/2018 2:00 AM AUTOMOBILE BODY REPAIRER HELPER Glassware Engraver Details Entered On: 04/19/2018 6:22 EST Performed On: 04/19/2018 2:00 EST by JB GUTIERREZ, MARYCARMEN Order Details Transport Mode Order Detail : Ambulatory Isolation Precautions Order Detail : Standard Precautions Order Detail : N/A IV Order Detail : 1 Oxygen Order Detail : 0 Nurse Collect Order Detail : 0 Lift/Transfer : Independent Central Line Order Detail : No Room Service : Appropriate Arterial Line : No JB GUTIERREZ, MARYCARMEN - 04/19/2018 6:22 EST documented in this encounter Plan of Treatment Not on file documented as of this encounter Visit Diagnoses Not on filedocumented in this encounter
--- OUTSIDE RECORDS SUMMARY | 2025-01-08 15:14 | XMS_ITS | Encounter Summary ---
Author Organization [employer] ([place], [place], [place], [place], [place]) Address [address] [place] [address] Care Team Providers Care Punchboard Stuffer Name Role Phone Unavailable Primary Care Provider Unavailabl e Encounter Details Date Type Department Care Team (Late st Contact Info) Description 04/16/2018 Transcribed Document [facility] [place] [facility] [place] [address] ProviderMg MD [facility] [place] [address] Social History Tobacco Use Types Packs/Day Years Used Date Smoking Tobacco: Never Assessed Sex and Gender Information Value Date Recorded Sex Assigned at Not on file Legal Sex Male 1:09 PM CDT Gender Identity Not on file Sexual Orientation Not on file documented as of this encounter Miscellaneous Notes * Cerner Conversion Note - Historical ProviderMD - 04/16/2018 5:00 AM APPRENTICE LINEMAN THIRD STEP Chart Check - Review Order Profile Entered On: 04/16/2018 4:17 EST Performed On: 04/16/2018 5:00 EST by Ashely Townsend Rn Chart Check Chart Reviewed Date and Time : 04/16/2018 4:17 EST All Active Orders Reviewed : Yes Ashely Townsend Rn - 04/16/2018 4:17 EST documented in this encounter Plan of Treatment Not on file documented as of this encounter Visit Diagnoses Not on filedocumented in this encounter
--- OUTSIDE RECORDS SUMMARY | 2025-01-08 15:15 | XMS_ITS | Encounter Summary ---
Author Organization [employer] ([place], [place], [place], [place], [place]) Address [address] [place] [address] Care Team Providers Care Outside Laborer Name Role Phone Unavailable Primary Care Provider Unavailabl e Encounter Details Date Type Department Care Team (Late st Contact Info) Description 04/17/2018 Transcribed Document [facility] [place] [facility] [place] [address] ProviderMg MD [address] [place] [address] Social History Tobacco Use Types Packs/Day Years Used Date Smoking Tobacco: Never Assessed Sex and Gender Information Value Date Recorded Sex Assigned at Not on file Legal Sex Male 1:09 PM CDT Gender Identity Not on file Sexual Orientation Not on file documented as of this encounter Miscellaneous Notes * Cerner Conversion Note - Mg ProviderMD - 04/17/2018 8:26 AM TOWER ATTENDANT PLEASE MODIFY BEFORE SIGNING CLINICAL DOCUMENTATION CLARIFICATION FORM: Dear : __Fischer Date: _04/17/2018__ Please exercise your independent, professional judgment in responding to the clarification form. Clinical indicators are provided on the bottom of this form for your review Please check appropriate box(s): [ x ] Protein Calorie Malnutrition Moderate [ ] Protein Calorie malnutrition Mild [ ] Other diagnosis [ ] Unable to determine For continuity of documentation, please document condition throughout progress notes and discharge summary. Thank You. To be completed by CDI/Coding staff for physician review: Present Clinical Indicators - Signs / Symptoms / Labs Results and Location in Medical Record [ x ] Malnutrition 04/16-Nutrition note- Moderate PCM identified 04/16 [x ] BMI of_31.2_ 04/1540-Vmw-MBC-31.2 Two or More of the Following ASPEN Criteria: [ x ] Unintentional Insufficient Energy Intake 04/1631-Zipzatbuo-Pywgvisj reduced:</=50% needs for >/=5days [ x ] Weight Loss 04/1637-Bbvstxeqp-Mcemnj:>2% past 1 week [ x ] Loss of Muscle Mass 04/1615-Lyaateeux-Wseoroiw: (suggested) some loss muscle mass [ x] Loss of Subcutaneous Fat 04/16-Nutrition - did observe moderate subcutaneous fat wasting to orbitals Present Risk Factors Results and Location in Medical Record [ x ] Change in appetite / nausea / vomiting / diarrhea 04/1645-Apbdqzxwx-ud intake <50% >/=5days [ x ] Acute illness 04/1613-Dmhmfskex-Dclkhfcorrxhxtk [ x ] Chronic illness 04/1609-Jxzjjddmh-orere on chronic left heart failure Present Treatments Results and Location in Medical Record [ x ] Dietary consult 04/16-MD orders-Nutrition consult [ x ] Nutritional supplements 04/16-Nutrition- RD will continue to monitor for pt to agree to oral supplements [ x ] Weights 04/1642-Wstuyppug-Eribtxx wt 2x/wk [ x ] Medication supplements 04/14-MD orders-Magnesium sulfate IV, Potassium chloride po CDS Signature: __Markus Simms RN, MSN, CDS__ Phone #: __[phone]_ Date: _04/17/2018__ Moderate Malnutrition (in acute illness) Energy Intake: <75% of estimated energy requirement for > 7 days ?? Weight Loss: 1-2%/1 week; 5%/ 1 month; 7.5%/3 months ?? Other: mild body fat loss; mild muscle mass loss; mild fluid accumulation; Severe Malnutrition (in acute illness) Energy Intake: < 50% of estimated energy requirement for > 5 days Weight Loss: >2%/1 week; >5%/1 month; >7.5%/3 months ?? Other: moderate body fat loss; moderate muscle mass loss; moderate- severe fluid accumulation; measurably reduced chromium plater strength Moderate Malnutrition (in chronic illness) Energy Intake: <75% of estimated energy requirement for >1 month ?? Weight Loss: 5%/1 month; 7.5%/3 months; 10%/6 months; 20%/1 year ?? Other: mild body fat loss; mild muscle mass loss; mild fluid accumulation Severe Malnutrition (in chronic illness) Energy Intake: <75% of estimated energy requirement for >1 month Weight Loss: >5%/1 month; >7.5%/3 months; >10%/6 months; >20%/1 year ?? Other: severe body fat loss; severe muscle mass loss; severe fluid accumulation; measurably reduced chromium plater strength This is a permanent part of the Medical Record 04/18/2018--Progress note-Dr. Lerma-Moderate protein-calorie malnutrition Electronically signed by Jackie, [facility] Conversion French Past[employer] Cook Cerner at 06/19/2022 10:48 PM CDT documented in this encounter Plan of Treatment Not on file documented as of this encounter Visit Diagnoses Not on filedocumented in this encounter
--- OUTSIDE RECORDS SUMMARY | 2025-01-08 15:15 | XMS_ITS | Encounter Summary ---
Author Organization [employer] ([place], [place], [place], [place], [place]) Address [address] [place] [address] Care Team Providers Care Scheduling Agent Name Role Phone Unavailable Primary Care Provider Unavailabl e Encounter Details Date Type Department Care Team (Late st Contact Info) Description 04/17/2018 Transcribed Document [facility] [place] [facility] [place] [address] [place] [address] ProviderMg MD [facility] [place], [place] [address] Social History Tobacco Use Types Packs/Day Years Used Date Smoking Tobacco: Never Assessed Sex and Gender Information Value Date Recorded Sex Assigned at Not on file Legal Sex Male 1:09 PM CDT Gender Identity Not on file Sexual Orientation Not on file documented as of this encounter Miscellaneous Notes * Cerner Conversion Note - Historical ProviderMD - 04/17/2018 2:00 AM MANAGER STYLE Retail Analyst Details Entered On: 04/17/2018 3:17 EST Performed On: 04/17/2018 2:00 EST by GREG MONROY, RN Order Details Transport Mode Order Detail : Ambulatory Isolation Precautions Order Detail : Standard Precautions Order Detail : N/A IV Order Detail : 1 Oxygen Order Detail : 0 Nurse Collect Order Detail : 0 Lift/Transfer : Independent Central Line Order Detail : No Room Service : Appropriate Arterial Line : No GREG MONROY, MARYCARMEN - 04/17/2018 3:16 EST documented in this encounter Plan of Treatment Not on file documented as of this encounter Visit Diagnoses Not on filedocumented in this encounter
--- OUTSIDE RECORDS SUMMARY | 2025-01-08 15:15 | XMS_ITS | Encounter Summary ---
Author Organization [employer] ([place], [place], [place], [place], [place]) Address [address] [place] [address] Care Team Providers Care Meal Room Hand Name Role Phone Unavailable Primary Care Provider Unavailabl e Encounter Details Date Type Department Care Team (Late st Contact Info) Description 04/16/2018 Transcribed Document [facility] [place] [facility] [place] [address] ProviderMg MD [facility] [place] [address] Social History Tobacco Use Types Packs/Day Years Used Date Smoking Tobacco: Never Assessed Sex and Gender Information Value Date Recorded Sex Assigned at Not on file Legal Sex Male 1:09 PM CDT Gender Identity Not on file Sexual Orientation Not on file documented as of this encounter Miscellaneous Notes * Cerner Conversion Note - Historical ProviderMD - 04/16/2018 2:19 PM LOCKSTITCH BINDER Consult Phone Call Documentation Entered On: 04/16/2018 15:01 EST Performed On: 04/16/2018 14:19 EST by TEAGAN CARCAMO Phone Call for Consults Physician Covering for Consult : DEREK DURAND MD MILLER, BRITTANY - 04/16/2018 15:01 EST documented in this encounter Plan of Treatment Not on file documented as of this encounter Visit Diagnoses Not on filedocumented in this encounter
--- OUTSIDE RECORDS SUMMARY | 2025-01-08 15:15 | XMS_ITS | Encounter Summary ---
Author Organization [employer] ([place], [place], [place], [place], [place]) Address [address] [place] [address] Care Team Providers Care Shuttle Threader Name Role Phone Unavailable Primary Care Provider Unavailabl e Encounter Details Date Type Department Care Team (Late st Contact Info) Description 04/17/2018 Transcribed Document [facility] [place] [facility] [place] [address] ProviderMg MD [facility] [place] [id number] Social History Tobacco Use Types Packs/Day Years Used Date Smoking Tobacco: Never Assessed Sex and Gender Information Value Date Recorded Sex Assigned at Not on file Legal Sex Male 1:09 PM CDT Gender Identity Not on file Sexual Orientation Not on file documented as of this encounter Miscellaneous Notes * Cerner Conversion Note - Mg ProviderMD - 04/17/2018 6:18 PM PARADI TENDER Patient: JOSE PEARSON Age: 47 years Sex: Male : 1970 Associated Diagnoses: None Author: VERNON DOAN PA Subjective Cardioversion successful this afternoon. Health Status Allergies: Allergic Reactions (Selected) No [...] Refill(s) fluticasone 50 mcg/inh nasal spray: 1 [place], Nostrils Both, Daily, 0 Refill(s) montelukast 10 mg oral tablet: 1 Tab, Oral, Daily, 0 Refill(s) pravastatin 80 mg oral tablet: 1 Tab, Oral, At Bedtime, 0 Refill(s) spironolactone: 25 mg, Oral, Daily, 0 Refill(s) Objective VS/Measurements Vitals Signs (last 24 hrs) Last Charted Minimum Maximum Temp 97.2 (APR 17 17:55) 97.2 (APR 17 17:55) 98.2 (APR 16 21:20) Mon HR 86 (APR 17 17:55) 58 (APR 17 07:07) 96 (APR 16 18:47) Resp Rate 16 (APR 17 17:55) 16 (APR 17 11:14) 16 (APR 17 11:14) SBP 107 (APR 17 17:55) L 79 (APR 16 18:47) 132 (APR 17 09:52) DBP 79 (APR 17 17:55) L 47 (APR 16 18:47) H 92 (APR 17 07:07) MAP 84 (APR 17 17:55) 56 (B 18:47) 98 (APR 17 07:07) SpO2 96 (APR 17 15:16) 96 (APR 17 15:16) 99 (APR 16 21:20) General: Alert and oriented, No acute distress. Neck: No carotid bruit, No jugular venous distention. Respiratory: Lungs are clear to auscultation, Respirations are non-labored. Cardiovascular: Normal rate, Regular rhythm, No murmur, No edema. Gastrointestinal: Non-distended. Musculoskeletal: Normal ROM in bed. Integumentary: Warm, Dry, No rash. Neurologic: No deficits appreciated. Psychiatric: Cooperative, Appropriate mood & affect. Impression and Plan NIDCM/CLSHF s/p Syncope with [...] (could never fall asleep) - DC ETOH, check T4/T3 - Start Tikosyn 500mg BID per Aikat. ALLERGIC TO AMIODARONE Hyperthyroidism - new dx this admission - TSH <0.005 - T4 2.86 - contributing to his poorly controlled A-fib, also has unintentional 10lb weight loss over the last month - consult ANGELA Htn - stable here, cont coreg, Entresto, Aldactone documented in this encounter Plan of Treatment Not on file documented as of this encounter Visit Diagnoses Not on filedocumented in this encounter
--- OUTSIDE RECORDS SUMMARY | 2025-01-08 15:15 | XMS_ITS | Encounter Summary ---
Author Organization [employer] ([place], [place], [place], [place], [place]) Address [address] [place] [address] Care Team Providers Care Traffic Lieutenant Name Role Phone Unavailable Primary Care Provider Unavailabl e Encounter Details Date Type Department Care Team (Late st Contact Info) Description 04/16/2018 Transcribed Document [facility] [place] [facility] [place] [address] ProviderMg MD [facility] [place] [address] Social History Tobacco Use Types Packs/Day Years Used Date Smoking Tobacco: Never Assessed Sex and Gender Information Value Date Recorded Sex Assigned at Not on file Legal Sex Male 1:09 PM CDT Gender Identity Not on file Sexual Orientation Not on file documented as of this encounter Miscellaneous Notes * Cerner Conversion Note - Historical ProviderMD - 04/16/2018 2:00 AM RAILWAYS ASSISTANT School Bus Inspector Details Entered On: 04/16/2018 1:14 EST Performed On: 04/16/2018 2:00 EST by Ashely Townsend Rn Order Details Transport Mode Order Detail : Ambulatory Isolation Precautions Order Detail : Standard Precautions Order Detail : N/A IV Order Detail : 1 Oxygen Order Detail : 0 Nurse Collect Order Detail : 0 Lift/Transfer : Independent Central Line Order Detail : No Room Service : Appropriate Ashely Townsend Rn - 04/16/2018 1:14 EST documented in this encounter Plan of Treatment Not on file documented as of this encounter Visit Diagnoses Not on filedocumented in this encounter
--- NOTE | 2025-01-08 15:20 | XR_ITS ---
FINAL REPORT CLINICAL HISTORY: Shortness of breath, cough COMPARISON: 07/31/2024 FINDINGS: A portable view of the chest was obtained. The heart is stable in size. Patient is status post median sternotomy. There has been no change in the left AICD. Right perihilar opacity and increased interstitial markings in the right lung are unchanged. There is no pleural effusion or pneumothorax. IMPRESSION: No interval change. Reviewed, Interpreted and Dictated by Bertha Roa MD Transcribed by Renetta Gotti Authenticated and [facility]
--- NOTE | 2025-01-08 15:22 | ED_ITS ---
Discharge Plan Disposition Patient Disposition: Home, Self-Care Prescriptions Prescriptions: New amoxicillin-pot clavulanate 875-125 mg tablet 1 tab PO BID 5 Days Qty: 10 0RF Referrals Follow up/Referrals: Herberth Perez MD [Primary Care Provider, Medical] - See instructions Activity Restrictions/Add. Instructions Additional Instructions/Restrictions: Your x-ray shows a lot of scarring in the right lung. I am prescribing you an antibiotic as there could be a pneumonia within the scarring given your symptoms. Take the Augmentin as prescribed. I do encourage you to follow-up with your regular doctor if symptoms continue. If you develop any new or worsening symptoms, or if you become concerned for your health for any reason, return to the emergency department for evaluation. Clinical Impressions Clinical Impression: Pneumonia Print Language Print Language: Welsh Discharge ED Provider: Jaime Curry General Chief Complaint: Shortness of Breath/Dyspnea Stated Complaint: SOA, cough Time Seen by Provider: 01/08/25 15:12 Mode of Arrival: Ambulatory Source of Information: Patient and Spouse Description of Symptoms (Recalled from ER Triage Doc. by RN): tonny presents for possible pneumonia. patient stated that he had staretd feeling short of breath last night and just wants to see if he has pneumonia. patient is wheelchair ridden, has a history of stroke and LVAD placed 5 yr ago. tonny has 22 IV catheter in the right forearm for IV fluids at home. History of Present Illness HPI narrative: Jose Pearson is a 54y male with a history of LVAD, stroke with residual left sided deficits on Warfarin and is bed-bound, previous pneumonias who presents to the ED for complaints of a cough and shortness of breath. Patient states that starting last night he developed shortness of breath and increased work with breathing when sitting up that improves with sitting/lying down. He also has a cough productive of clear sputum. 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 He denies any fevers. He does report increased urinary frequency since having what he thought was a TIA 1.5 weeks ago. He describes having transient episode of not being able to speak 1.5 weeks ago that has resolved. He denies any abdominal pain. Related Data Previous Rx's ?Medication ?Instructions ?Recorded amoxicillin 875 mg-potassium 1 tab PO BID 5 days #10 t abs 01/08/25 clavulanate 125 mg tablet Allergies Allergy/AdvReac Type Severity Reaction Status Date / Time albuterol AdvReac Unknown Verified 01/08/25 15:03 allergy reaction dapagliflozin (From [facility]) AdvReac Vomiting Verified 01/08/25 15:03 PFSH [facility] Disclaimer: The information contained in this section may have been updated after the patient was seen, as this information can be updated by other users. Social History Smoking Status: Never smoker alcohol intake: never current occupational status: unemployed Travel in the last 8 weeks?: None ROS Obtained: Yes Systems reviewed as appropriate & no additional complaints except as documented Physical Exam General General appearance: alert and in no apparent distress Comment: chronically ill appearing, wheelchair bound Head Head exam: atraumatic Eye Eye exam: Present normal appearance ENT ENT exam: Present normal external ear exam Neck Neck exam: Present full ROM Chest Chest inspection: Present symmetric chest wall rise and other (LVAD driveline is in place without surrounding erythema or drainage) Respiratory Respiratory exam: Present other (dry cough); Absent normal lung sounds bilaterally (crackles on the right), respiratory distress, wheezes or stridor Cardiovascular Cardiovascular exam: Present other (LVAD hum) Abdominal Exam Abdominal exam: Present soft; Absent tenderness or guarding exam: Present deferred Extremities Exam Extremities exam: Present normal inspection; Absent edema Back Exam Back exam: Present normal inspection Neurological Exam Neurological exam: Present alert, oriented X3 and motor sensory deficit (Baseline LUE and LLE weakness) Psychiatric Psychiatric exam: Present normal affect Skin Skin exam: Present warm and dry HEART Score HEART Score HEART Score assessment performed?: Yes History (anamnesis): Slightly suspicious ECG: Normal Age: 45-65 years Risk factors: Atherosclerosis history Troponin: </= normal limit HEART Score: 3 Critical Care Critical Care Time Critical Care Time: No Medical Decision Making Ellis Inquiry Pt receiving controlled substance: No Vital Signs Vital Signs: 01/08/25 14:51 Temperature 98.7 F Temperature Source Oral Pulse Rate [Right Radial] 100 H Respiratory Rate 18 Blood Pressure [Right Arm] 105/80 L Blood Pressure Mean [Right Arm] 88 Blood Pressure Source [Right Arm] Automatic Cuff Blood Pressure Position [Right Arm] Sitting 02 Sat by Pulse Oximetry 96 Oxygen Delivery Method Room Air Lab Data Labs: Lab Results 01/08/25 15:05: SARS-CoV-2 (PCR) Not detected, Influenza A Untype (PCR) Not detected, Influenza Type B (PCR) Not detected 01/08/25 15:14: WBC 7.8, RBC 5.26, Hgb 9.7 L, Hct 33.7 L, MCV 64.1 L, MCH 18.4 L , MCHC 28.8 L, RDW 21.1 H, Plt Count 320, MPV 8.7, Neut % (Auto) 63.1, Lymph % (Auto) 18.5, [place] % (Auto) 10.3 H, Eos % (Auto) 6.9, Baso % (Auto) 0.9, Neut # (Auto) 4.9, Lymph # (Auto) 1.4, [place] # (Auto) 0.8, Eos # (Auto) 0.5 H, Baso # (Auto) 0.1, Sodium 136, Potassium 4.5, Chloride 102, Carbon Dioxide 24, Anion Gap 14.5, BUN 15, Creatinine 0.70, Estimated Creat Clear 116, Estimated GFR 117, Est GFR ( Amer) 142, Glucose 74, Calcium 8.4, Total Bilirubin 1.4 H, AST 32, ALT 18, Alkaline Phosphatase 74, Troponin I < 0.01, NT-Pro-B Natriuret Pep 1220 H, Total Protein 7.7, Albumin 4.5, Globulin 3.2, Albumin/Globulin Ratio 1.4 01/08/25 15:31: VBG pH 7.32, VBG pCO2 52.0 H, VBG pO2 42.6 H, VBG HCO3 26.4, VBG Total CO2 28.0 H, VBG O2 Saturation 73.2 H, VBG Base Excess 0.3, VBG Lactic Acid 1.4 01/08/25 16:41: Urine Color Yellow, Urine Appearance Clear, Urine pH 5.5, Ur Specific [place] 1.025, Urine Protein Negative, Urine Glucose (UA) Negative, Urine Ketones Negative, Urine Blood Negative, Urine Nitrate Negative, Urine Bilirubin Negative, Urine Urobilinogen 0.2, Ur Leukocyte Esterase Negative, Urine RBC None, Urine WBC Occasional, Ur Squamous Epith Cells 3-5, Urine Bacteria None, Urine Mucus 1+ 01/08/25 15:14 01/08/25 15:14 Response Orders (Tests/Meds): ORDERS Category Date Time Status CXR --portable [XR chest portable] Stat Exams 11/05/25 15:20 Completed BNP [NT Pro Brain Natriuretic Pep.] Stat Lab 01/08/25 15:14 Completed CBC w/Auto Diff [Complete Blood Count Auto Diff] Stat Lab 01/08/25 15:14 Completed CMP [Comprehensive Metabolic Panel] Stat Lab 01/08/25 15:14 Completed Mini Respiratory Panel Stat Lab 01/08/25 15:20 Ordered Rapid PCR Covid and Flu A/B Stat Lab 01/08/25 15:05 Completed Troponin I Stat Lab 01/08/25 15:14 Completed UA [Urinalysis and Microscopic] Stat Lab 01/08/25 16:41 Completed VBG [Venous Blood Gas] Stat RT 01/08/25 15:31 Completed ECG Data Tracing #1: Attestation: I reviewed this ECG and interpreted as documented below: ECG Narrative: Atrial pacemaker, LVAD. No STEMI MDM Narrative Medical Decision Narrative: Jose Pearson is a 54y male with a history of LVAD, stroke with residual left sided deficits on Warfarin and is bed-bound, previous pneumonias who presents to the ED for complaints of a cough and shortness of breath. Patient states that starting last night he developed shortness of breath and increased work with breathing when sitting up that improves with sitting/lying down. He also has a cough productive of clear sputum. 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 He denies any fevers. He does report increased urinary frequency since having what he thought was a TIA 1.5 weeks ago. He describes having transient episode of not being able to speak 1.5 weeks ago that has resolved. He denies any abdominal pain. On arrival, blood pressure is 105/80, 100bpm, 98.7F and 96% on room air. Physical exam, stated above, revealed a chronically ill but nontoxic-appearing male in no distress. He is sitting in his wheelchair comfortably. He has baseline left upper extremity and left lower extremity weakness but is alert and GCS 15. Cardiopulmonary exam shows hum of his LVAD and some mild crackles on the right lung but no wheezing. Abdomen is soft, nontender nondistended. Differential diagnosis includes, but is not limited to: Pneumonia, pneumothorax, viral respiratory illness, ACS, pericarditis, volume overload, among others. The most morbid conditions were considered and workup was based on these. Workup in the Emergency Department included: Chest x-ray, EKG, CBC with differential, CMP, VBG EKG shows LVAD without ST elevation or depression. See interpretation above Chest x-ray interpreted by me personally. Patient has fibrotic changes/scarring to the right lung that appears grossly similar to previous x-ray. No obvious focal consolidations. See final radiology report for details. Workup shows no leukocytosis, hemoglobin low at 9.7, hematocrit of 33.7. Platelets normal at 320. VBG with pH normal 7.32, lactate normal at 1.4. pCO2 mildly elevated at 52 and bicarb mildly elevated at 28. Troponin less than 0.01. NT proBNP at 1220. Patient does not appear volume overloaded and chest x-ray does not appear volume overloaded. Urinalysis without evidence of infection. Electrolytes within normal limits. No MAUREEN with creatinine at 0.70. Bilirubin very mildly elevated at 1.4. Liver enzymes otherwise within normal limits. On reassessment, patient remains in stable condition. I do feel that given patient's symptoms consistent with pneumonia with significant scarring in the right lung, it may be difficult to determine if there is a small pneumonia on today's chest x-ray. I will prescribe patient a course of Augmentin but instructed him to follow-up closely with his primary care doctor. Will avoid any doxycycline or azithromycin to avoid any QTc prolongation. Return precautions were given. All questions were answered. He and demonstrated understanding and were in agreement with this plan. He was then discharged from the emergency department in stable condition.
[2025-01-08 15:26] LABS: Hematocrit 33.7 % (42.0-52.0); Hemoglobin 9.7 g/dL (14.1-18.0); Immature Granulocytes % 0.3 %; Mean Corpuscular HGB Conc 28.8 g/dL (31.8-35.4); Mean Corpuscular Hemoglobin 18.4 pg (27.0-31.2); Mean Corpuscular Volume 64.1 fl (80-94); Nucleated Red Blood Cells % 0 %; Platelet Count 320 K/mm3 (142-424); Red Blood Count 5.26 M/mm3 (4.60-6.20); Red Cell Distribution Width-SD 45.5 fL; White Blood Count 7.8 K/mm3 (4.8-10.8)
--- NOTE | 2025-01-08 15:34 | ECG_ITS ---
APPROVED REPORT Exam: Resting ECG HR:90 bpm ECG Measurements Heart Rate 90 AXES MN 195 P 141 QRSd 138 QRS -74 QT 422 T 29 QTc 470 Conclusion ELECTRONIC ATRIAL PACEMAKER ELECTRONIC VENTRICULAR PACEMAKER MARKED ST ELEVATION, CONSIDER ANTERIOR INJURY [MARKED ST ELEVATION W/O NORMALLY INFLECTED T-WAVE IN V2-V5] ACUTE LA UNCONFIRMED REPORT LVAD, pacemaker present. No ST elevation or depression Electronically signed by : TONI DESHPANDE, 01/09/2025 20:12:08
[2025-01-08 15:41] LABS: Lactate Venous 1.4 mmol/L (0.4-2.0); VBG HCO3 26.4 mmol/L (23-30); VBG PCO2 52.0 mmol/L (35-51); VBG PH 7.32 mmol/L (7.31-7.41); VBG PO2 42.6 mmol/L (28-40)
[2025-01-08 15:48] LABS: NT Pro Brain Natriuretic Pep. 1220 pg/mL (0-125)
[2025-01-08 15:56] LABS: Troponin I < 0.01 ng/ml (0.00-0.034)
[2025-01-08 16:48] LABS: Microscopic, Urine URINE MICROSCOPIC (MICROSCOPIC)
--- NOTE | 2025-01-08 16:56 | PC.NURSE ---
1630 Pt still unable to provide urine sample at this time. PT provided water with provider approval.
[2025-01-08 17:11] LABS: Bilirubin,Urine Negative (Negative); Color,Urine YELLOW (Yellow); Glucose,Urine (UA) Negative (Negative); Ketones,Urine Negative (Negative); Leukocyte Esterase,Urine Negative (Negative); PH,Urine 5.5 (5.0-8.5); Protein,Urine Negative (Negative); Specific Gravity, Urine 1.025 (1.005-1.030); Urobilinogen,Urine 0.2 EU/dl (0.2)
--- NOTE | 2025-01-08 17:14 | PC.NURSE ---
Spoke with lab. Lab reports 5 mins left on the CMP and UA at this time. notified.
[2025-01-08 17:24] LABS: Chloride 102 mmol/L (98-107)
[2025-01-08 17:25] LABS: Albumin Level 4.5 g/dl (3.5-5.0); Potassium 4.5 mmoL/L (3.5-5.1); Sodium 136 mmol/L (136-145)
[2025-01-08 17:27] LABS: Alanine Aminotransferase 18 U/L (12-78); Anion Gap 14.5 mEq/L (5-15); Aspartate Amino Transferase 32 U/L (17-59); Blood Urea Nitrogen 15 mg/dl (9-20); Carbon Dioxide 24 mmol/L (22.0-30.0); Creatinine Clearance Estimated 116 mL/min (50-200); Creatinine,Serum 0.70 mg/dl (0.66-1.25); Estimated Glomerular Filt Rate 117 ml/min (>60); GFR (African American) 142 ML/MIN (>60)
[2025-01-08 17:28] LABS: Albumin/Globulin Ratio 1.4 (1.1-1.8); Alkaline Phosphatase 74 U/L (38-126); Bilirubin,Total 1.4 mg/dl (0.2-1.3); Calcium 8.4 mg/dl (8.4-10.2); Globulin 3.2 g/dL (1.3-3.2); Glucose 74 mg/dl (74-100); Total Protein,Serum 7.7 g/dl (6.3-8.2)
[2025-01-08 17:33] LABS: WBC,Urine Occasional #/hpf (0-3)
[2025-01-08 17:34] LABS: Mucus,Urine 1+ /lpf
[2025-01-08 18:01] VITALS: BP 110/74; PULSE 88; RESP 17; TEMP 37.1; O2SAT 96
== END 2025-01-08 18:02 | disposition home or self-care (01) ==
PROVIDERS: Student in an Organized Health Care Education/Training Program; Emergency Provider Student in an Organized Health Care Education/Training Program; PCP Pediatrics
DX: J18.9 Pneumonia, unspecified organism (principal); R06.02 Shortness of breath; R35.0 Frequency of micturition; Z79.01 Long term (current) use of anticoagulants; Z95.811 Presence of heart assist device; Z86.79 Personal history of other diseases of the circulatory system; Z86.73 Personal history of transient ischemic attack (TIA), and cerebral infarction without residual deficits; Z95.0 Presence of cardiac pacemaker; D64.9 Anemia, unspecified
CPT/HCPCS: 71045; 80053; 81001; 82803; 83880; 84484; 85025; 87636; 93005; 99284

== ENCOUNTER 2025-02-13 13:52 | Outpatient (CLI) | payer BC, MEDICAID, SELFPAY ==
[2025-02-13] MEDS: IRON SUCROSE COMPLEX 200 MG in 0.9 % SODIUM CHLORIDE 100 ML 220 MG IV (14:15)
== END 2025-02-13 23:59 | disposition home or self-care (01) ==
PROVIDERS: PCP Pediatrics; Visit Provider Internal Medicine Cardiovascular Disease
DX: D50.9 Iron deficiency anemia, unspecified (principal); Z95.811 Presence of heart assist device
CPT/HCPCS: 96365; J1756

== ENCOUNTER 2025-02-19 14:54 | Outpatient (CLI) | payer BC, MEDICAID, SELFPAY ==
--- OUTSIDE RECORDS SUMMARY | 2018-11-13 12:05 | XMS_ITS | Encounter Summary ---
[facility] [address] [place] [address] Care Team Providers Care Table Tender Sludge Name Role Phone Herberth Perez MD Primary Care Provider [phone] Reason for Visit * Diagnostic Imaging (Routine) - Closed Specialty Diagnoses / Procedures Referred By Contac t Referred To Contact Radiology Diagnoses Solitary thyroid nodule Procedures US Thyroid Zaida Banks MD [address] [place] [address] Phone: tel: fax: [facility] [address] [place] [address] Phone: tel: fax: Referral ID Status Reason Start Date Expiration Date Visits Re quested Visits Authorized [id number] Closed 11/13/2018 11/13/2019 1 1 Encounter Details Date Type Department Care Team (Late st Contact Info) Description 11/13/2018 1:05 PM EDT Hospital Encounter [facility] [address] [place] [address] Social History Tobacco Use Types [...] on filedocumented in this encounter Care Teams Table Tender Sludge Relationship Specialty Start Date End Date Herberth Perez MD [address] [place] [address] [place] [address] PCP - General Internal Medicine 04/22/17 documented as of this encounter
--- OUTSIDE RECORDS SUMMARY | 2019-11-20 09:45 | XMS_ITS | Encounter Summary ---
Author Organization [facility] Address [address] [place] [address] Care Team Providers Care Rod Buster Helper Name Role Phone Herberth Perez MD Primary Care Provider [phone] Reason for Visit * Diagnostic Imaging (Routine) - Closed Specialty Diagnoses / Procedures Referred By Contac t Referred To Contact Radiology Diagnoses Solitary thyroid nodule Procedures US Thyroid Zaida Banks MD [address] [place] [address] Phone: tel: fax: [facility] [address] [place] [address] Phone: tel: fax: Referral ID Status Reason Start Date Expiration Date Visits Re quested Visits Authorized [id number] Closed 11/20/2019 11/19/2020 1 1 Encounter Details Date Type Department Care Team (Late st Contact Info) Description 11/20/2019 10:45 AM EDT Hospital Encounter [facility] [address] [place] [address] Social History Tobacco Use Types [...] on filedocumented in this encounter Care Teams Rod Buster Helper Relationship Specialty Start Date End Date Herberth Perez MD [address] [place] [address] [place] [address] PCP - General Internal Medicine 04/22/17 documented as of this encounter
--- OUTSIDE RECORDS SUMMARY | 2024-12-20 09:46 | XMS_ITS | Encounter Summary ---
Author Organization Healthcare Address [address] [place] [address] Care Team Providers Care Channel Opener Name Role Phone Herberth Perez MD Primary Care Provider [phone] Gracia Petersen WIG SALES CONSULTANT Unavailable [phone] Yunior Solorzano MD Unavailable [phone] Ross Baez DO Unavailable [phone] Edith Aleman RN Unavailable Unavailable Encounter Details Date Type Department Care Team (Latest Contact Info) Description 12/20/2024 10:46 AM EDT - 12/20/2024 11:59 PM EDT Hospital Encounter Cardiac Imaging [address] [place] [address] Biventricular ICD (implantable cardioverter-defibril lator) in place Discharge Disposition: Home or Self [...] place to sleep or slept in a half-way (including now)? No 12/19/2023 PHQ-9 Answer Date [...] any time in the past 12 m [facility], were you homeless or living in a half-way (including now)? No 04/08/2024 CAGE ASSESSMENT Answer [...] drink first t janine in the morning (EYE-COKE BURNER) to steady your nerves or to get rid of a hangover? 0 09/19/2021 CAGE Questionnaire Score 0 022 Utilities Answer Date Recorded In the past 12 months has th [employer], [employer], oil, or water [employer] threatened to shut off services in your [...] tabletIndications :LVAD (left ventricular assist device) present ([facility]),Chronic systolic heart failure Take 3 tablets (30 [...] IN EACH NOSTRIL ONCE DAILY DIRECTED 06/22/2022 IV Sets-Tubing kit For fluid boluses 15 [...] tablet Chew 1 each in the morning. montelukast (Singulair) 10 MG tablet Take 1 tablet (10 mg) by mouth nightly. 90 tablet 3 05/28/2024 Mucus Relief 600 MG 12 hr tablet TAKE 2 TABLETS BY MOUTH TWO TIMES A DAY. DO NOT CHEW, CRUSH, OR SPLIT. 120 tablet 11 09/11/2024 NON FORMULARY Take 1 each by mouth every night. Delta 9 gummies purchased in [place] omeprazole (PriLOSEC) [address] capsule Take [...] by mouth nightly. 90 tablet 3 05/28/2024 tamsulosin (Flomax) 0.4 MG 24 hr capsule Take 1 capsule (0.4 mg) by mouth 1 (one) time each day with dinner. 90 capsule 3 05/28/2024 warfarin (Coumadin) 4 MG tablet Take 1 tablet by mouth in the evening. 90 tablet 3 06/10/2024 ipratropium (Atrovent) 0.02 % nebulizer solution Take 2.5 mL by nebulization 4 times a day as needed for wheezing. 75 mL 11 10/29/2024 metoprolol succinate XL (Toprol-XL) 25 MG 24 hr tablet Take 1 tablet (25 mg) by mouth daily. Do not crush or chew. 90 tablet 3 05/28/2024 sodium chloride 0.9 % bolus Infuse 500 mL into a venous catheter daily at 500 mL/hr over 60 minutes. 20 each 3 12/23/2024 5 sotalol (Betapace) 120 MG tablet Take 1 tablet (120 mg) by mouth in the morning and 1 tablet (120 mg) before bedtime. 180 tablet 3 05/28/2024 5 documented as of this encounter Plan of Treatment Upcoming Encounters Date Type Department Care Team (Late st Contact Info) Description 04/22/2025 9:00 AM EST Ancillary Procedure [facility] [place] [address] [place] [address] documented as of this encounter Goals Goal Patient Goal Type Associated Problems Recent Progress Patient-Stated? Author LVAD Short Term Goal General On track( 024 11:53 AM EDT) Yes Katrin Oviedo RN Note: - 07/04/23: Patient states he wants to attend a wedding in November in [place] LVAD Visual Educator Goal General On track( 024 11:53 AM EDT) Yes Katrin Oviedo, MARYCARMEN Note: - 07/04/23: Patient states he wants to meet his grandchild when they are born in November documented as of this encounter Procedures Procedure Name Priority Date/Time Associated Diagnosis Comments CARDIAC DEVICE CHECK CHECK - REMOTE ALERT Routine 12/20/2024 11:11 AM EDT Biventricular ICD (implantable cardioverter-defibr illator) in place documented in this encounter Results * CARDIAC DEVICE CHECK - REMOTE ALERT - ICD (12/20/2024 11:11 AM EDT) Anatomical Region Laterality Modality Other Narrative 12/20/2024 5:09 PM EDT Images from the original result were not included. [facility] EP - Remote CIED alert (non-scheduled) Name: Jose Pearson Date: 12/20/2024 : 1970 Age: 54 y.o. Indication for alert: Update/entry on HF diagnostic trends for LVAD team Device: Pocket Closer: Zavaleta FACILITY SECURITY OFFICER-ICD Summary: Weekly reports of Corvue being sent LVAD team. Most recent trends listed below. Three month trend One year trend Action(s): Today's data shared with LVAD Coordinator. Will continue to monitor device. See attached report for CIED details Dina Valenzuela Les SANDOVAL CV IMPLANTABLE CARDIAC DEV ICE PROCEDURES Final Result documented in this encounter Visit Diagnoses Diagnosis Biventricular ICD (implantable cardioverter-defibrillator) in place documented in [...] plan has been documented for the patient 12/12/2024 8:18 AM EDT documented as of this encounter Care Teams Channel Opener Relationship Specialty Start Date End Date Herberth Perez MD [address] [place] [address] PCP - General 07/17/20 Gracia Petersen APRN [address] [place] [address] Nurse Practitioner Internal Medicine 08/06/20 Yunior Solorzano MD [address] [place] [address] Consulting Physician Gastroenterology 07/18/22 Ross Baez DO [address] [address] Surgeon Cardiothoracic Surgery 07/18/22 Edith Aleman, DISPENSING OPTICIAN None VAD Coordinator 10/14/24 documented as of this encounter
--- OUTSIDE RECORDS SUMMARY | 2024-12-23 11:44 | XMS_ITS | Encounter Summary ---
Author Organization Healthcare Address [address] [place] [address] Care Team Providers Care Stock Control Supervisor Name Role Phone Herberth Perez MD Primary Care Provider [phone] Gracia Petersen ADJUNCT TRAINER Unavailable [phone] Yunior Solorzano MD Unavailable [phone] Ross Baez DO Unavailable [phone] Edith Aleman RN Unavailable Unavailable Encounter Details Date Type Department Care Team (Latest Contact Info) Description 12/23/2024 12:44 PM EDT - 12/23/2024 11:59 PM EDT Hospital Encounter Cardiac Imaging [address] [place] [address] Biventricular ICD (implantable cardioverter-defibril lator) in place [...] place to sleep or slept in a skilled nursing (including now)? No 12/19/2023 PHQ-9 Answer Date [...] any time in the past 12 m [facility], were you homeless or living in a skilled nursing (including now)? No 04/08/2024 CAGE ASSESSMENT Answer [...] drink first t janine in the morning (EYE-SURGICAL SERVICES ASST) to steady your nerves or to get rid of a hangover? 0 09/19/2021 CAGE Questionnaire Score 0 022 Utilities Answer Date Recorded In the past 12 months has th [employer], [employer], oil, or water [employer] threatened to shut off services in your [...] tabletIndications :LVAD (left ventricular assist device) present ([facility]),Chronic systolic heart failure Take 3 tablets (30 [...] every night. Delta 9 gummies purchased in [place] omeprazole (PriLOSEC) [address] capsule Take [...] Description 04/22/2025 9:00 AM EST Ancillary Procedure [facility] [place] [address] [place] [address] documented as of this encounter Goals Goal Patient Goal Type Associated Problems Recent Progress Patient-Stated? Author LVAD Short Term Goal General On track( 024 11:53 AM EDT) Yes Katrin Oviedo RN Note: - 07/04/23: Patient states he wants to attend a wedding in November in [place] LVAD Metal Bonding Helper Goal General On track( 024 11:53 AM EDT) Yes Katrin Oviedo, MARYCARMEN Note: - 07/04/23: Patient states he wants to meet his grandchild when they are born in November documented as of this encounter Procedures Procedure Name Priority Date/Time Associated Diagnosis Comments CARDIAC DEVICE CHECK CHECK - REMOTE ALERT Routine 12/23/2024 12:44 PM EDT Biventricular ICD (implantable cardioverter-defibr illator) in place documented in this encounter Results * CARDIAC DEVICE CHECK - REMOTE ALERT - ICD (12/23/2024 12:44 PM EDT) Anatomical Region Laterality Modality Other Narrative 12/23/2024 12:59 PM EDT [facility] EP - Remote CIED alert (non-scheduled) Name: Jose Pearson Date: 12/23/2024 : 1970 Age: 54 y.o. Indication for alert: NSVT (V>A) Device: Executive Steward: Zavaleta PRIMING MACHINE OPERATOR-ICD Summary: NSVT labeled event on 12/21/24 lasting approx 6-7 seconds. Event is in patients VT-1 monitor zone of 150bpm, no therapy delivered. EGM demonstrates spontaneous conversion. Action(s): Next scheduled appt 01/28/25 Will continue to monitor device. 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 Assessment Noted Time PHQ-9 Depression Total Score: 0 03/19/19 8:46 AM EST A fall risk assessment has been complete d for the patient 10/29/2024 11:44 AM EDT A Body Mass Index follow-up plan has been documented for the patient 12/23/2024 8:43 AM EDT documented as of this encounter Care Teams Stock Control Supervisor Relationship Specialty Start Date End Date Herberht Perez MD [address] [place] [address] PCP - General 07/17/20 Gracia Petersen APRN [address] [place] [address] Nurse Practitioner Internal Medicine 08/06/20 Yunior Solorzano MD [address] [place] [address] Consulting Physician Gastroenterology 07/18/22 Ross Baez, DO [address] [place] [phone] Surgeon Cardiothoracic Surgery 07/18/22 Edith Aleman, MAGENTO DEVELOPER None VAD Coordinator 10/14/24 documented as of this encounter
--- OUTSIDE RECORDS SUMMARY | 2025-01-06 12:34 | XMS_ITS | Encounter Summary ---
Author Organization Healthcare Address [address] [place] [address] Care Team Providers Care Web Programmer Name Role Phone Herberth Perez MD Primary Care Provider [phone] Gracia Petersen MANAGER CONTRACTING Unavailable [phone] Yunior Solorzano MD Unavailable [phone] Ross Baez DO Unavailable [phone] Edith Aleman RN Unavailable Unavailable Encounter Details Date Type Department Care Team (Latest Contact Info) Description 01/06/2025 12:34 PM EST - 01/06/2025 11:59 PM [facility] Hospital Encounter Cardiac Imaging [address] [place] [address] ICD (implantable cardioverter-defibr illator) in place Discharge [...] place to sleep or slept in a penitentiary (including now)? No 12/19/2023 PHQ-9 Answer Date [...] any time in the past 12 m [facility], were you homeless or living in a penitentiary (including now)? No 04/08/2024 CAGE ASSESSMENT Answer [...] drink first t janine in the morning (EYE-ITALIAN TEACHER) to steady your nerves or to get rid of a hangover? 0 09/19/2021 CAGE Questionnaire Score 0 022 Utilities Answer Date Recorded In the past 12 months has th e [employer], [employer], oil, or water [employer] threatened to shut off services in your [...] tabletIndications :LVAD (left ventricular assist device) present ([facility]),Chronic systolic heart failure Take 3 tablets (30 [...] every night. Delta 9 gummies purchased in [place] omeprazole (PriLOSEC) [address] capsule Take [...] daily at 500 mL/hr over 60 minutes. [address] mL 11 12/25/2024 sotalol (Betapace) 120 MG tablet Take 1 tablet (120 mg) by mouth in the morning and 1 tablet (120 mg) before bedtime. 180 tablet 3 05/28/2024 5 documented as of this encounter Plan of Treatment Upcoming Encounters Date Type Department Care Team (Late st Contact Info) Description 04/22/2025 9:00 AM EST Ancillary Procedure [facility] [place] [address] [place] [address] documented as of this encounter Goals Goal Patient Goal Type Associated Problems Recent Progress Patient-Stated? Author LVAD Short Term Goal General On track( 11:53 AM EDT) Yes Katrin Oviedo, RN Note: - 07/04/23: Patient states he wants to attend a wedding in November in [place] LVAD Psychologist Research Assistant Goal General On track( 11:53 AM EDT) [...] Modality Other Narrative 01/06/2025 4:17 PM EST [facility] EP - Remote CIED alert (non-scheduled) Name: Jose Pearson Date: 01/06/2025 : 1970 Age: 54 y.o. Indication for alert: NSVT (V>A) Device: Comic Writer: Zavaleta RESIDENTIAL CASE MANAGER-ICD Summary: NSVT event, occurring 01/03, egm does [...] documented as of this encounter Care Teams Web Programmer Relationship Specialty Start Date End Date Herberth Perez MD [address] [place] [address] PCP - General 07/17/20 Gracia Petersen APRN [address] [place] [address] Nurse Practitioner Internal Medicine 08/06/20 Yunior Solorzano MD [address] [place] [address] Consulting Physician Gastroenterology 07/18/22 Ross Baez DO [address] [address] Surgeon Cardiothoracic Surgery 07/18/22 Edith Aleman, MULTICULTURAL MANAGER None VAD Coordinator 10/14/24 documented as of this encounter
--- OUTSIDE RECORDS SUMMARY | 2025-01-20 13:30 | XMS_ITS | Encounter Summary ---
Author Organization Healthcare Address [address] [place] [address] Care Team Providers Care Sales Activity Manager Name Role Phone Herberth Perez MD Primary Care Provider [phone] Gracia Petersen MINING CONSULTANT Unavailable [phone] Yunior Solorzano MD Unavailable [phone] Ross Baez DO Unavailable [phone] Edith Aleman RN Unavailable Unavailable Encounter Details Date Type Department Care Team (Latest Contact Info) Description 01/20/2025 1:30 PM EST - 01/20/2025 11:59 PM [facility] Hospital Encounter Cardiac Imaging [address] [place] [id number] ICD (implantable cardioverter-defibr illator) in place Discharge [...] place to sleep or slept in a mcc (including now)? No 12/19/2023 PHQ-9 Answer Date [...] time in the past 12 m [facility], were you homeless or living in a mcc (including now)? No 04/08/2024 CAGE ASSESSMENT Answer [...] drink first t janine in the morning (EYE-ASSEMBLER CONVERTIBLE TOP) to steady your nerves or to get rid of a hangover? 0 09/19/2021 CAGE Questionnaire Score 0 022 Utilities Answer Date Recorded In the past 12 months has th e [employer], [employer], oil, or water [employer] threatened to shut off services in your [...] (left ventricular assist device) present (CMS/[facility]),Chronic systolic heart failure Take 3 tablets (30 [...] as needed for wheezing. 75 mL 11 01/14/2025 IV Sets-Tubing kit For fluid boluses 15 [...] every night. Delta 9 gummies purchased in [place] omeprazole (PriLOSEC) [address] capsule Take [...] by mouth nightly. 90 tablet 3 05/28/2024 sodium chloride 0.9 % bolus Infuse 1,000 mL into a venous catheter daily at 1,000 mL/hr over 60 minutes. 62222 mL 11 01/08/2025 tamsulosin (Flomax) 0.4 MG 24 hr capsule Take 1 capsule (0.4 mg) by mouth 1 (one) time each day with dinner. 90 capsule 3 05/28/2024 warfarin (Coumadin) 4 MG tablet Take 1 tablet by mouth in the evening. 90 tablet 3 06/10/2024 metoprolol succinate XL (Toprol-XL) 25 MG 24 hr tablet Take 1 tablet (25 mg) by mouth daily. Do not crush or chew. 90 tablet 3 05/28/2024 sotalol (Betapace) 120 MG tablet Take 1 tablet (120 mg) by mouth in the morning and 1 tablet (120 mg) before bedtime. 180 tablet 3 05/28/2024 5 documented as of this encounter Plan of Treatment Upcoming Encounters Date Type Department Care Team (Late st Contact Info) Description 04/22/2025 9:00 AM EST Ancillary Procedure [facility] [place] [address] [place] [address] documented as of this encounter Goals Goal Patient Goal Type Associated Problems Recent Progress Patient-Stated? Author LVAD Short Term Goal General On track( 024 11:53 AM EDT) Yes Katrin Oviedo RN Note: - 07/04/23: Patient states he wants to attend a wedding in November in [place] LVAD Senior Living Goal General On track( 024 11:53 AM EDT) Yes Katrin Oviedo RN Note: - 07/04/23: Patient states he wants to meet his grandchild when they are born in November documented as of this encounter Procedures Procedure Name Priority Date/Time Associated Diagnosis Comments CARDIAC DEVICE CHECK - REMOTE - ICD Routine 01/20/2025 1:31 PM EST ICD (implantable cardioverter-defibr illator) in place documented in this encounter Results * CARDIAC DEVICE CHECK - REMOTE - ICD (01/20/2025 1:31 PM EST) Anatomical Region Laterality Modality Other Narrative 01/21/2025 8:44 AM EST Images from the original result were not included. Biventricular Implantable cardiac defibrillator (ICD) remote interrogation. [...] dated in-clinic evaluation. Presenting rhythm is atrial sensed with biventricular paced response. NSVT events previously reported. Downtrend in atrial and RV sense trends, presenting egm is demonstrates appropriate markers and deflections, sensitivity on both leads set to auto, impedance is stable. Has LVAD us Dina Valenzuela Les SANDOVAL CV IMPLANTABLE CARDIAC [...] plan has been documented for the patient 01/20/2025 8:57 AM EST documented as of this encounter Care Teams Sales Activity Manager Relationship Specialty Start Date End Date Herberth Perez MD [address] [place], [place] [address] PCP - General 07/17/20 Gracia Petersen APRN [address] [place] [address] Nurse Practitioner Internal Medicine 08/06/20 Yunior Solorzano MD [address] [place] [address] Consulting Physician Gastroenterology 07/18/22 Ross Baez, [address] [address] Surgeon Cardiothoracic Surgery 07/18/22 Edith Aleman, CORRUGATOR None VAD Coordinator 10/14/24 documented as of this encounter
--- OUTSIDE RECORDS SUMMARY | 2025-01-28 08:57 | XMS_ITS | Encounter Summary ---
Author Organization [facility] Address [address] [place] [address] Care Team Providers Care Cottage Master Name Role Phone Herberth Perez MD Primary Care Provider [phone] Gracia Petersen PETROPHYSICIST Unavailable [phone] Yunior Solorzano MD Unavailable [phone] Ross Baez DO Unavailable [phone] Edith Aleman RN Unavailable Unavailable Reason for Referral * Imaging (Routine) - Closed Specialty Diagnoses / Procedures Referred By Yared díaz Referred To Contact Cardiology Diagnoses LVAD (left ventricular assist device) present ([facility]) longterm current use of anticoagulant therapy Procedures Echo, Adult Transthoracic Complete Marti Cherry, PETROPHYSICIST [address] [place] [address] Phone: tel: fax: Referral ID Status Reason Start Date Expiration Date V isits Requested Visits Authorized [id number] Closed Perform Procedure 10/24/2024 04/25/2026 1 1 Reason for Visit * Imaging (Routine) - Closed Specialty Diagnoses / Procedures Referred By Yared díaz Referred To Contact Cardiology Diagnoses LVAD (left ventricular assist device) present ([facility]) longterm current use of anticoagulant therapy Procedures Echo, Adult Transthoracic Complete Marti Cherry, PETROPHYSICIST [address] [place] [address] Phone: tel: fax: Referral ID Status Reason Start Date Expiration Date V isits Requested Visits Authorized [id number] Closed Perform Procedure 10/24/2024 04/25/2026 1 1 Encounter Details Date Type Department Care Team (Latest Contact Info) Description 01/28/2025 8:57 AM EST - 01/28/2025 11:59 PM EST Hospital Encounter Cardiac Imaging [address] [place] [address] LVAD (left ventricular assist device) present ([facility]); longterm current use of anticoagulant therapy Discharge Disposition: Home or Self Care Social [...] money to buy more. Never true 04/08/19 Within the past 12 months, t he [...] any time in the [facility] 12 m [facility], were you homeless or living in [...] drink first t janine in the morning (EYE-INDEPENDENT LIVING SPECIALIST) to steady your nerves or to get [...] tabletIndications :LVAD (left ventricular assist device) present ([facility]),Chronic systolic heart failure Take 3 tablets (30 [...] MG 24 hr tablet Take 1 tablet by mouth daily. Do not crush or chew. 90 tablet 3 01/28/2025 montelukast (Singulair) 10 MG tablet Take 1 tablet (10 mg) by mouth nightly. 90 tablet 3 05/28/2024 Mucus Relief 600 MG 12 hr tablet TAKE 2 TABLETS BY MOUTH TWO TIMES A DAY. DO NOT CHEW, CRUSH, OR SPLIT. 120 tablet 11 09/11/2024 NON FORMULARY Take 1 each by mouth every night. Delta 9 gummies purchased in [place] omeprazole (PriLOSEC) [address] capsule Take [...] daily at 1,000 mL/hr over 60 minutes. 77120 mL 11 01/08/2025 sotalol (Betapace) 120 MG tablet Take 1 tablet by mouth 2 times a day. 180 tablet 3 01/28/2025 tamsulosin (Flomax) 0.4 MG 24 hr capsule Take 1 capsule (0.4 mg) by mouth 1 (one) time each day with dinner. 90 capsule 3 05/28/2024 warfarin (Coumadin) 4 MG tablet Take 1 tablet by mouth in the evening. 90 tablet 3 06/10/2024 doxycycline (Adoxa) 100 MG tabletIndications :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) Take 1 tablet by mouth 2 times a day for 14 days. Take with a full glass of water and do not lie down for at least 30 minutes after 28 tablet 01/24/2025 documented as of this encounter Plan of Treatment Upcoming Encounters Date Type Department Care Team (Late st Contact Info) Description 04/22/2025 9:00 AM EST Ancillary Procedure [facility] [place] [address] [place] [address] documented as of this encounter Goals Goal Patient Goal Type Associated Problems Recent Progress Patient-Stated? Author LVAD Short Term Goal General On track( 024 11:53 AM EDT) Yes Katrin Oviedo, RN Note: - 07/04/23: Patient states he wants to attend a wedding in November in [place] LVAD Assisted Goal General On track( 024 11:53 AM EDT) Yes Katrin Oviedo, RN Note: - 07/04/23: Patient states he wants to meet his grandchild when they are born in November documented as of this encounter Procedures Procedure Name Priority Date/Time Associated Diagnosis Comments ECHO, ADULT TRANSTHORACIC COMPLETE Routine 01/28/2025 9:38 AM EST LVAD (left ventricular assist device) present ([facility]) longterm current use of anticoagulant therapy documented in this encounter Results * ECHO, ADULT TRANSTHORACIC COMPLETE (01/28/2025 9:38 AM EST) Height 182.9 ILENE ISCV Weight 72.1 ILENE ISCV BSA 1.93 m2 ILENE ISCV LVIDd 55 mm ILENE ISCV IVSd 5 mm IELNE ISCV LVPWd 7 mm ILENE ISCV LV MASS(C)D 112 g ILENE ISCV [facility] CV ECHO LV MASS INDEX 58 g/m2 ILENE ISCV LV RWT 0.22 mm ILENE ISCV LA dimension 38 mm ILENE ISCV LVOT diam 24 mm ILENE ISCV LVOT AREA 4.5 cm2 ILENE ISCV LAV(MOD-4ch) 49 mL ILENE ISCV LAV(MOD-bp) Indexed 26 mL/m2 ILENE ISCV LAV(MOD-2ch) 52 mL ILENE ISCV RA MOD 4Ch 46 mL ILENE ISCV EVELYN 24 mL/m2 ILENE ISCV RV base 45 mm ILENE ISCV RV Mid 47 mm ILENE ISCV RV Length 88 mm ILENE ISCV TAPSE 11 mm ILENE ISCV RV s' Jv 6.0 cm/s ILENE ISCV TR Vmax 239.0 cm/s ILENE ISCV TR Max PG 23 mmHG ILENE ISCV RVSP 31 mmHg ILENE ISCV RAP systole 8 mmHg ILENE ISCV Ao Root Diam 40 mm ILENE ISCV Asc Ao Diam 36 mm ILENE ISCV MPA diam 25 mm ILENE ISCV MPA area 4.9 cm2 ILENE ISCV Anatomical Region Laterality Modality Echocardiography Narrative 01/28/2025 10:15 AM EST Left Ventricle: HeartMate III LVAD is present. LVAD inflow cannula was visualized. Inflow cannula flow exhibits normal velocities. Septal position is midline. The left ventricle is normal size. There is normal left ventricular myocardial thickness and mass. The left ventricular systolic function is severely reduced. The LVEF is visually estimated at less than 20%. There is global hypokinesis of the left ventricle. Right Ventricle: The right ventricle is dilated. The right ventricular systolic function is severely reduced. Right ventricular systolic pressure is normal (<35mmHg). Aortic Valve: On LVAD support, the aortic valve does not open. There is continuous aortic valve regurgitation that is probably mild to moderate in severity. Pericardium: No pericardial effusion. Compared to the most recently available prior study, and allowing for differences in image quality and technique, there is no significant interval change noted. Left Ventricle The left ventricle is normal size. There is normal left ventricular myocardial thickness and mass. The left ventricular systolic function is severely reduced. The LVEF is visually estimated at less than 20%. Unable to assess diastolic function due to LVAD. There is global hypokinesis of the left ventricle. HeartMate III LVAD is present. LVAD inflow cannula was visualized. Inflow cannula flow exhibits normal velocities. Septal position is midline. Right Ventricle The right ventricle is dilated. A catheter/lead is present in the right ventricle. The right ventricular systolic function is severely reduced. Right ventricular systolic pressure is normal (<35mmHg). Left Atrium The left atrial size is normal with an indexed volume of 16-34 mL/m2. The interatrial septum is intact with no evidence for an atrial septal defect. Right Atrium The right atrial volume index is normal (<30mL/m2). There is a catheter/lead present in the right atrium. IVC/SVC The IVC was not well visualized, and an assumed pressure of 8mmHg was used for calculations. Mitral Valve The mitral valve leaflets are normal in appearance with no evidence of mitral valve prolapse. There is mild mitral regurgitation. There is no mitral stenosis. Tricuspid Valve The tricuspid valve is normal in appearance. There is mild tricuspid regurgitation. There is no tricuspid stenosis. Aortic Valve The cusp(s) are thickened. There is continuous aortic valve regurgitation that is probably mild to moderate in severity. On LVAD support, the aortic valve does not open. Pulmonic Valve The pulmonic valve is normal in appearance. There is mild pulmonic regurgitation. There is no pulmonic stenosis. Pericardium No pericardial effusion. Great Vessels The aortic root is mildly dilated. The sinus of Valsalva (aortic root) diameter is 40 mm by leading edge to leading edge method. In the maximally visualized portion, the ascending aorta appears normal in size. The ascending aorta diameter is 36 mm. In the maximally visualized portion, the aortic arch appears normal in size. The main pulmonary artery is normal in size. The main pulmonary artery diameter is 25 mm. Study Details A complete transthoracic echocardiogram using two-dimensional (2D), m-mode, color and spectral flow Doppler imaging was performed. During the study the apical, parasternal, subcostal and suprasternal view was captured. Overall the study quality was adequate. Height: 182.9 cm. Weight: 72.1 kg. BSA: 1.93 m2. The heart rhythm during this exam was most suggestive of a sinus rhythm. Study Recommendation Compared to the most recently available prior study, and allowing for differences in image quality and technique, there is no significant interval change noted. 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 Assessment Noted Time PHQ-9 Depression Total Score: 0 03/19/19 8:46 AM EST A fall risk assessment has been complete d for the patient 01/28/2025 10:05 AM EST A Body Mass Index follow-up plan has been documented for the patient 01/28/2025 11:12 AM EST documented as of this encounter Care Teams Cottage Master Relationship Specialty Start Date End Date Herberth Perez MD [address] [place] [address] [place] [address] PCP - General 07/17/20 Gracia Petersen APRN [address] [place] [address] Nurse Practitioner Internal Medicine 08/06/20 Yunior Solorzano MD [address] [facility] [address] [place] [address] Consulting Physician Gastroenterology 07/18/22 Ross Baez DO [address] [id number] Surgeon Cardiothoracic Surgery 07/18/22 Edith Aleman, SALES AGENT PROTECTIVE SERVICE None VAD Coordinator 10/14/24 documented as of this encounter
--- OUTSIDE RECORDS SUMMARY | 2025-01-28 10:00 | XMS_ITS | Encounter Summary ---
Author Organization [facility] Address [address] [place] [address] Care Team Providers Care Roll Over Loader Name Role Phone Herberth Perez MD Primary Care Provider [phone] Gracia Petersen YOUTH CARE PROFESSIONAL Unavailable [phone] Yunior Solorzano MD Unavailable [phone] Ross Baez DO Unavailable [phone] Edith Aleman RN Unavailable Unavailable Reason for Visit * Reason Comments Follow-up - VAD Post Encounter Details Date Type Department Care Team (Latest Contact Info) Description 01/28/2025 10:00 AM EST Ancillary Procedure [facility] 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 No 12/19/2023 PHQ-9 Answer Date [...] any time in the past 12 m [facility], were you homeless or living in a [place] facility (including now)? No 04/08/2024 CAGE ASSESSMENT Answer [...] drink first t janine in the morning (EYE-TRANSMISSION SYSTEM OPERATOR) to steady your nerves or to [...] AM EDT documented as of this encounter Last Filed Vital Signs Vital Sign Reading Time Taken Comments Blood Pressure - - Pulse 80 01/28/2025 10:06 AM EST Temperature - - Respiratory Rate - - Oxygen Saturation 96% 01/28/2025 10:06 AM EST Inhaled Oxygen Concentration - - Weight 74.8 kg (165 lb) 01/28/2025 10:06 AM EST Height 182.9 cm (6') 01/28/2025 10:06 AM EST Body Mass Index 22.38 01/28/2025 10:06 AM EST documented in this encounter Miscellaneous Notes * Patient Instructions - Gracia Vizcarra, RN - 01/28/2025 10:00 AM EST - Hold IV fluids for today - See you in 3 months! * Progress Notes - Po Tang MD - 01/28/2025 10:00 AM EST Images from the original note were not included. [facility] Ventricular Device Clinic Outpatient Visit Date of Service: 01/28/2025 Patient Name Jose Pearson Date of 1970 Encounter Provider: TOM ANGELO [id number] History of Present Illness I had the pleasure of seeing Jose Pearson for a follow up visit today in the Ventricular Assist Device Clinic at the [facility]. VAD Course Mr. Jose Pearson is a 54 y.o. male with Stage D HFrEF due to Non-ischemic cardiomyopathy who had a HM3 left ventricular assist device implanted on 06/06/2019 as Destination therapy. Post-implant course is notable for MSSA driveline infection, CVA with residual dense L-hemiplegia, outflow graft occlusion in 04/2024 with 5 stents. Other medical history is notable for HTN, AF s/p ablation, PE,VT on sotalol currently. Interval History Since his last visit with our office, he denies any unscheduled hospital admissions or ER/UC visits. - LCV 10/29/24, noted to generally be without acute issues at that visit, receiving 500cc IVF daily, losing weight due to appetite issues, reports beginning stages of pressure ulcer. Overall, he has been doing stably since last visit; recently lost his sister which has been stressful. Notes that he has had an approximately 7lb weight gain over the past several days as well as hada little bit of lower extremity swelling; does note that he has been more upright and out of bed than his baseline. Otherwise notes stable symptoms since last visit, has intermittent hemorrhoidal bleeding, sacral redness which is intermittent. Today, he reports the following symptoms: - Dyspnea: Yes - Orthopnea: Yes - PND: No - Leg swelling: Yes - Lightheadedness/dizziness: Yes; with position changes. - Syncope: No - Palpitations: No - Abdominal bloating/early satiety: No - ICD firing: No - Fatigue: Yes - Driveline drainage: Yes; mild, on doxycycline presently. - Nosebleeds: No - Hematochezia: Yes; intermittent. - Melena: No - Neurological symptoms: No Overall, he reports being limited by cardiovascular symptoms. He has not been exercising due to being bedbound secondary to stroke effects. He reports these symptoms are stable. The patients other medical problems are as listed below. Problem List/Past Medical History Past Medical History[1] Past Surgical History Surgical History[2] Allergies Allergies as of 01/28/2025 - Reviewed 10/29/2024 Allergen Reaction Noted Albuterol Shortness of breath and Anxiety 08/10/2020 Bactrim [sulfamethoxazole-trimethoprim] Diarrhea and Nausea 01/09/2024 Chlorhexidine Rash 04/17/2024 Dapagliflozin Other - please document in the comment field 07/05/2022 Medication List Current Medications[3] Social History reports that he has never smoked. He has never been exposed to tobacco smoke. He quit smokeless tobacco use about 5 years ago. His smokeless tobacco use included chew. He reports that he does not currently use alcohol. He reports that he does not use drugs. Family History Family History[4] Review of Systems ROS - as above Physical Exam MAP: 92mmHg Body mass index is 22.38 kg/m??. Gen: Appears reasonably comfortable and in no acute distress, sitting comfortably HEENT: Mucus membranes moist, oropharynx clear, no scleral icterus Neck: Supple, no lymphadenopathy, no thyromegaly Respiratory: Clear to auscultation bilaterally Cardiovascular: +VAD hum. Jugular venous pressure was not noted in upright positioning with a positive hepatojugular reflex. Extremities were warm and well perfused Gastrointestinal: The abdomen was soft, non-tender/non-distended. DL site was C/D/I Musculoskeletal: Moves all extremities, strength grossly intact Extremities: Trace pitting edema. No significant cyanosis or clubbing Hematologic: No petechiae or purpura Skin: No obvious rashes or lesions Neurological: Grossly intact VAD Interrogation Device Readings LVAD Device Type: Heartmate 3 Device Strategy: Destination therapy LVAD Flow (LPM): 3.2 LPM LVAD Speed (RPM): 5100 RPM LVAD PI: 7.7 LVAD Power (Ocampo): 3.4 LPM LVAD Alarm Settings Low Speed: 4900 Hematocrit: 34 Backup Controller Programmed: Yes Backup Battery Months Remainin LVAD Alarms PI event frequency: Mild Other: (Data to 01/20/25 @ 15:53) LVAD Device Interpretation Data sent for interpretation? : No Functioning as designed?: Yes Suspected thrombus?: No Driveline with severe bends, kinks or twists?: No Suspected driveline fracture?: No Power requirements: Normal Pulsatility Index: Normal LVAD Driveline Assessment Dressing Appearance: Clean, Old drainage Driveline Exit Site Exam: Drainage Driveline Stage: Slight redness, drainage, or tenderness. Initial trauma to exit site. Dressing Change Frequency: Daily Dressing Kit Type: Other Dressing Changed in Clinic: No LVAD Comments VAD Additional Comments: Doppler BP 92 I personally interpreted the results of this device interrogation. No concerning alarms. Functioning normally. Lab Results I personally reviewed the following laboratory results: Lab Results Component Value Date HGB 9.7 (L) 10/29/2024 HCT 34.1 (L) 10/29/2024 WBC 5.36 10/29/2024 PLT 328 10/29/2024 ALT 10 10/29/2024 AST 15 10/29/2024 NA 136 10/29/2024 K 4.1 10/29/2024 CREATININE 0.60 (L) 10/29/2024 BUN 11 10/29/2024 LDH 169 10/29/2024 INR 2.6 01/27/2025 HGBA1C 5.2 02/13/2024 DIAGNOSTIC STUDIES - EKG (05/09/2024): AV-paced rhythm. Echocardiograms 07/2024 TTE: Left Ventricle: The left ventricular systolic function is severely reduced. The LVEF as measured bybiplane volume is 18%. Unable to assess diastolic function due to LVAD. HeartMate III LVAD is present. Right Ventricle: The right ventricular systolic function is severely reduced. Aortic Valve: On LVAD support, the aortic valve does not open. Compared to the most recently available prior study, and allowing for differences in image quality and technique, there is no significant interval change noted. 01/28/25 TTE: Left Ventricle: HeartMate III LVAD is present. LVAD inflow cannula was visualized. Inflow cannula flow exhibits normal velocities. Septal position is midline. The left ventricle is normal size. Thereis normal left ventricular myocardial thickness and mass. The left ventricular systolic function isseverely reduced. The LVEF is visually estimated at [...] there is no significant interval change noted. Assessment and Plan: 1. Stage D HFrEF status post HM3 as Destination therapy: - VAD speed: 5100 RPM - Volume status: Euvolemic - Blood pressure: MAP is not at goal - Evidence Based Medical Therapy for Heart Failure: - TRENT-I/ARB/ARNI: Intolerant due to hypotension - Aldosterone antagonist: Intolerant due to hypotension - Beta-luciana: Maximally tolerated dose, metoprolol succinate 25mg po daily. - Digoxin: Not indicated - Hydralazine/Nitrates: Not indicated - SGLT2i: Intolerant due to side effects (nausea) - Ancillary medications: fludricortisone 0.1mg daily (not taking; took for only 1m), rosuvastatin 20mg po nightly, sotalol 120mg po bid - VAD: Flows appropriate - Antiplatelet: None - Anticoagulation: Continue with Warfarin per protocol with goal INR (2-2.5) followed by team here - Device therapy: ICD/BiV-PPM/BiV-ICD: Currently in place - follow up with EP as recommended/scheduled - Activity: Increase as tolerated 2. VAD complications: - Aortic insufficiency: Severe, constant - RV dysfunction: Severe - CVA/TIA: Yes, with residual deficits - GI bleed history: Hemorrhoidal bleed - Driveline infection: Yes, current with Corynebacterium amycolatum; on doxycycline. As such, I have made the following recommendations: Recommend continued management of driveline infection as currently prescribed Recommend holding IVF for 1 day with resumption of home medications as normal today; restart home IVF administration tomorrow. (suspect recent weight change/swelling in setting of being upright and out of bed; will reassess with return to normal routine) Given findings of worsening suspected LIYA on CBC today (Hb 8.4, MCV 64, RDW 21.1%), will discuss re: colonoscopy and IV iron infusion. Return to clinic in 3 months. I spent 45 minutes in the care of this patient including review of past medical records, updating his/her chart, interpretation of diagnostic testing and discussing diagnosis and current treatment plans. I provided counseling (i.e. importance of exercise, fluid management, medication adherence and follow up etc), as well as coordination of care as detailed above. Po Tang MD PGY-6/FY-2 Fellow - Division of Cardiovascular Medicine [facility] [place] DWA Dr. 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 AICD placed 2005 originally, last device change 2017. Cardio-mem placed 04/2019. Post implant V-Fib arrest 06/14/2019. Conversions - Other H/O congestive heart disease Conversions - Other H/O of cardiac arrhythmia High cholesterol 08/31/2020 Hypertension Intrinsic asthma without status asthmaticus without complication 11/01/2021 [place] (myocardial infarction) (CMS/HCC) 08/31/2020 Other cardiomyopathies (CMS/HCC) NICM (nonischemic cardiomyopathy) Pulmonary embolism 2019 - On ventilator 2.5 months and sepsis/pneumonia was cause, states pt.'s . 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 [2] Past Surgical History: Procedure Laterality Date ANKLE SURGERY N/A Ankle Surgery from [employer] CARDIAC DEFIBRILLATOR PLACEMENT N/A Implantable Cardioverter-Defibrillator from [employer] HERNIA REPAIR N/A Hernia Repair from [employer] LEFT VENTRICULAR ASSIST DEVICE Left Implantation of left ventricular assist device (LVAD) from [facility] OTHER SURGICAL HISTORY Left Left ventricular assist device placement from [employer] OTHER SURGICAL HISTORY N/A Percutaneous tracheostomy from [facility] [3] Current Outpatient Medications Medication Sig Dispense Refill acetaminophen (Tylenol) 325 MG tablet Take 3 tablets (975 mg) by mouth every 6 hours as needed for pain. 100 tablet 3 albuterol 108 (90 Base) MCG/ACT inhaler Inhale 1 puff 2 (two) times a day as needed for wheezing. 3each 3 baclofen (Lioresal) 10 MG tablet Take 3 tablets (30 mg) by mouth nightly. 270 tablet 3 buPROPion XL (Wellbutrin XL) 300 MG 24 hr tablet Take 1 tablet (300 mg) by mouth daily. Do not crush, chew, or split. 90 tablet 3 cephalexin (Keflex) 500 MG capsule Take 2 capsules (1,000 mg) by mouth in the morning and 2 capsules (1,000 mg) before bedtime. 360 capsule 3 cetirizine (ZyrTEC) 10 MG tablet Take 1 tablet (10 mg) by mouth nightly. (Patient taking differently: Take 1 tablet by mouth daily.) 90 tablet 3 diphenhydrAMINE (Banophen) 25 MG capsule TAKE 1 CAPSULE BY MOUTH TWO TIMES A DAY 60 capsule 11 doxycycline (Adoxa) 100 MG tablet Take 1 tablet by mouth 2 times a day for 14 days. Take with a full glass of water and do not lie down for at least 30 minutes after 28 tablet 0 fludrocortisone (Florinef) 0.1 MG tablet Take 1 tablet by mouth daily. 30 tablet 11 FLUoxetine (PROzac) 40 MG capsule Take 1 capsule (40 mg) by mouth daily. (Patient not taking: Reported on 10/29/2024) 90 capsule 3 fluticasone (Flonase) 50 MCG/ACT nasal spray USE 2 SPRAY(S) IN EACH NOSTRIL ONCE DAILY DIRECTED ipratropium (Atrovent) 0.02 % nebulizer solution Take 2.5 mL by nebulization 4 times a day as needed for wheezing. 75 mL 11 IV Sets-Tubing kit For fluid boluses 15 kit 5 lactulose (Chronulac) 10 GM/15ML oral solution Take 30 mL by mouth 3 times a day. (Patient not taking: Reported on 10/29/2024) 473 mL 2 Magnesium Chloride-Calcium (Slow Magnesium/Calcium) 64-106 MG tablet delayed- release Take 1 tablet by mouth in the morning and 1 tablet before bedtime. 180 tablet 3 Melatonin 10 MG capsule Take 10 mg by mouth every night. Metamucil Fiber 2 g chewable tablet Chew 1 each in the morning. metoprolol succinate XL (Toprol-XL) 25 MG 24 hr tablet Take 1 tablet (25 mg) by mouth daily. Do notcrush or chew. 90 tablet 3 montelukast (Singulair) 10 MG tablet Take 1 tablet (10 mg) by mouth nightly. 90 tablet 3 Mucus Relief 600 MG 12 hr tablet TAKE 2 TABLETS BY MOUTH TWO TIMES A DAY. DO NOT CHEW, CRUSH, OR SPLIT. 120 tablet 11 NON FORMULARY Take 1 each by mouth every night. Delta 9 gummies purchased in [place] omeprazole (PriLOSEC) [address] capsule Take 1 capsule (40 mg) by mouth daily. DO NOT CRUSH OR CHEW 90 capsule 3 polyethylene glycol (Miralax) 17 g packet Take 17 g by mouth daily as needed (constipation). 90 packet 3 rosuvastatin (Crestor) 20 MG tablet Take 1 tablet (20 mg) by mouth nightly. 90 tablet 3 senna (Senokot) 8.6 MG tablet Take 1 tablet (8.6 mg) by mouth nightly. 90 tablet 3 sodium chloride 0.9 % bolus Infuse 1,000 mL into a venous catheter daily at 1,000 mL/hr over 60 minutes. 79510 mL 11 sotalol (Betapace) 120 MG tablet Take 1 tablet (120 mg) by mouth in the morning and 1 tablet (120 mg) before bedtime. 180 tablet 3 tamsulosin (Flomax) 0.4 MG 24 hr capsule Take 1 capsule (0.4 mg) by mouth 1 (one) time each day with dinner. 90 capsule 3 warfarin (Coumadin) 4 MG tablet Take 1 tablet by mouth in the evening. 90 tablet 3 No current facility-administered medications for this visit. [4] Family History Problem Relation Name Age of Onset Colon cancer Father Heart failure Sister Coronary artery disease Father Diabetes Mother Kidney failure Mother Conversions - Other Mother History of urostomy Cosigned by Cierra Orellana MD at 01/29/2025 8:51 AM EST Associated attestation - Cierra Orellana MD - 01/29/2025 8:51 AM EST I saw and evaluated the patient with the resident/fellow. I discussed the case with the resident/fellow and agree with the findings and plan as documented. 54 YO M s/p HM3 in 2019 complicated by CVA with L hemiplegia and outflow graft occlusion s/p stenting who presents today for routine follow up. Due to history of low-flows and orthostatic hypotension, he receives IVF daily. He recently lost his sister and his routine has been altered. He notes 7 lbweight gain and some LE edema that improves after sleeping and he has been spending much more time in his wheelchair as of late. No evidence of volume overload on examination today and TTE reviewed with estimated RAP 8 mmHg. VAD Interrogation Device Readings LVAD Device Type: Heartmate 3 Device Strategy: Destination therapy LVAD Flow (LPM): 3.2 LPM LVAD Speed (RPM): 5100 RPM LVAD PI: 7.7 LVAD Power (Ocampo): 3.4 LPM Plan: Hold IVF today and tomorrow IVF thrice weekly Back to regular routine Labs today showed significant iron deficiency anemia - will arrange for IV iron infusions Cierra Orellana MD Advanced Heart Failure/Transplant Cardiology [facility] documented in this encounter Plan of Treatment Upcoming Encounters Date Type Department Care Team (Late st Contact Info) Description 04/22/2025 9:00 AM EST Ancillary Procedure [facility] [address] [place] [address] documented as of this encounter Goals Goal Patient Goal Type Associated Problems Recent Progress Patient-Stated? 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 IRON & TOTAL IRON BINDING CAPACITY, PLASMA (INCLUDES TRANSFERRIN) Add-On 01/28/2025 9:02 AM EST 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 current use of anticoagulant therapy PROTHROMBIN TIME(PT) / INR Routine 01/28/2025 9:02 AM EST LVAD (left ventricular assist device) present (CMS/HCC) MCFP current use of anticoagulant therapy CBC W/O DIFFERENTIAL Routine 01/28/2025 9:02 AM EST LVAD (left ventricular assist device) present (CMS/HCC) MCFP current use of anticoagulant therapy LACTATE DEHYDROGENASE, PLASMA Routine 01/28/2025 9:02 AM EST LVAD (left ventricular assist device) present (CMS/HCC) MCFP current use of anticoagulant therapy COMPREHENSIVE METABOLIC PANEL, PLASMA Routine 01/28/2025 9:02 AM EST LVAD (left ventricular assist device) present (CMS/HCC) MCFP current use of anticoagulant therapy documented in this encounter Results * (ABNORMAL) Iron & Total Iron Binding Capacity, Plasma (Includes Transferrin) (01/28/2025 9:02 AM EST) Iron, Plasma 11(L) 50 - 170 ug/dL 01/28/2025 12:04 PM EST [facility] Transferrin, Plasma 305 200 - 360 mg/dL 01/28/2025 12:04 PM EST [facility] Total Iron Binding Capacity, Plasma 381 240 - 450 ug/mL 01/28/2025 12:04 PM EST [facility] Transferrin Saturation 3(L) 14 - 50 % 01/28/2025 12:04 PM EST [facility] Blood Venous blood specimen / Unknown Venipuncture / Unknown 01/28/2025 9:02 AM EST 01/28/2025 10:44 AM EST us Cierra Orellana MD LAB BLOOD ORDERABLES Final Result [facility] [address] [place] [address] * (ABNORMAL) Comprehensive Metabolic Panel, Plasma (01/28/2025 9:02 AM EST) Glucose, Plasma 106(H) 74 - 99 mg/dL 01/28/2025 11:17 AM EST [facility] BUN, Plasma 15 7 - 21 mg/dL 01/28/2025 11:17 AM EST [facility] Creatinine, Plasma 0.55(L) 0.70 - 1.20 mg/dL 01/28/2025 11:17 AM EST [facility] BUN/Creatinine Ratio 27 01/28/2025 11:17 AM EST [facility] Sodium, Plasma 139 136 - 145 mmol/L 01/28/2025 11:17 AM EST [facility] Potassium, Plasma 3.9 3.6 - 4.9 mmol/L 01/28/2025 11:17 AM EST [facility] Chloride, Plasma 104 97 - 107 mmol/L 01/28/2025 11:17 AM EST [facility] CO2, Plasma 24 22 - 29 mmol/L 01/28/2025 11:17 AM EST [facility] Anion Gap 11 6 - 16 mmol/L 01/28/2025 11:17 AM EST [facility] Total Calcium, Plasma 8.1(L) 8.9 - 10.2 mg/dL 01/28/2025 11:17 AM EST [facility] Total Protein 6.9 6.3 - 7.9 g/dL 01/28/2025 11:17 AM EST [facility] Albumin, Plasma 3.2(L) 3.5 - 5.2 g/dL 01/28/2025 11:17 AM EST [facility] AST, Plasma 47 10 - 50 U/L 01/28/2025 11:17 AM EST [facility] Comment:Hemolyzed, result ma y be falsely increased. ALT, Plasma 41 10 - 50 U/L 01/28/2025 11:17 AM EST [facility] Alkaline Phosphatase, Plasma 65 40 - 115 U/L 01/28/2025 11:17 AM EST [facility] Total Bilirubin, Plasma 1.0 0.2 - 1.1 mg/dL 01/28/2025 11:17 AM EST [facility] eGFRcr 117.0 mL/min/1.7 3m*2 01/28/2025 11:17 AM EST [facility] Comment:Reported eGFRcr in m L/min/1.73m2 is based the CKD-EPI 2020 equation that does not use a race coefficient. Blood Venous blood specimen / Unknown Venipuncture / Unknown 01/28/2025 9:02 AM EST 01/28/2025 10:44 AM EST us Marti Cherry APRN LAB BLOOD ORDERABLES Final Result [facility] [address] [place] [address] * (ABNORMAL) CBC W/O Differential (01/28/2025 9:02 AM EST) WBC Count 7.34 3.70 - 10.30 10*3/uL LAB HEMATOLOGY METHOD 01/28/2025 11:23 AM EST [facility] RBC Count 4.57(L) 4.60 - 6.10 10*6/uL LAB HEMATOLOGY METHOD 01/28/2025 11:23 AM EST [facility] HGB 8.4(L) 13.7 - 17.5 g/dL LAB HEMATOLOGY METHOD 01/28/2025 11:23 AM EST [facility] HCT 29.1(L) 40.0 - 51.0 % LAB HEMATOLOGY METHOD 01/28/2025 11:23 AM EST [facility] Platelet Count 314 155 - 369 10*3/uL LAB HEMATOLOGY METHOD 01/28/2025 11:23 AM EST [facility] MCV 64(L) 79 - 98 fL LAB HEMATOLOGY METHOD 01/28/2025 11:23 AM EST [facility] MCH 18.4(L) 26.0 - 32.0 pg LAB HEMATOLOGY METHOD 01/28/2025 11:23 AM EST [facility] MCHC 28.9(L) 30.7 - 35.5 g/dL LAB HEMATOLOGY METHOD 01/28/2025 11:23 AM EST [facility] RDW 21.1(H) 11.5 - 14.5 % LAB HEMATOLOGY METHOD 01/28/2025 11:23 AM EST [facility] MPV 9.2 8.8 - 12.5 fL LAB HEMATOLOGY METHOD 01/28/2025 11:23 AM EST [facility] nRBC 0.0 <=0.0 per 100 WBCs LAB HEMATOLOGY METHOD 01/28/2025 11:23 AM EST [facility] Blood Venous blood specimen / Unknown Venipuncture / Unknown 01/28/2025 9:02 AM EST 01/28/2025 10:51 AM EST Marti Cherry [facility] LAB BLOOD ORDERABLES Final Result Performing Organization Address City/[facility]/ZIP Co de Phone Number [facility] [address] [place] [address] * Lactate Dehydrogenase, Plasma (01/28/2025 9:02 AM EST) LDH, Plasma 237 116 - 250 U/L 01/28/2025 11:17 AM EST [facility] Comment:Hemolyzed, result ma y be falsely increased. Blood Venous blood specimen / Unknown Venipuncture / Unknown 01/28/2025 9:02 AM EST 01/28/2025 10:44 AM EST Marti Cherry YOUTH CARE PROFESSIONAL LAB BLOOD ORDERABLES Final Result [facility] [address] [place] [address] * (ABNORMAL) N-Terminal Probnp, Plasma (01/28/2025 9:02 AM EST) N-Terminal, PROBNP, Plasma 3,594(H) 0 - 899 pg/mL 01/28/2025 11:17 AM EST [facility] Blood Venous blood specimen / Unknown Venipuncture / Unknown 01/28/2025 9:02 AM EST 01/28/2025 10:44 AM EST Marti Sumaya [place] YOUTH CARE PROFESSIONAL LAB BLOOD ORDERABLES Final Result Performing Organization Address [facility]/ZIP Co de Phone Number [facility] [address] [place] [address] * (ABNORMAL) Prothrombin Time/INR (01/28/2025 9:02 AM EST) Prothrombin Time 31.0(H) 12.0 - 14.3 sec LAB COAGULATION METHOD 01/28/2025 11:06 AM EST [facility] INR 3.0(H) 0.9 - 1.1 LAB COAGULATION METHOD 01/28/2025 11:06 AM EST [facility] Blood Venous blood specimen / Unknown Venipuncture / Unknown 01/28/2025 9:02 AM EST 01/28/2025 10:44 AM EST Narrative [facility] - 01/28/2025 11:06 AM EST OPTIMAL INR RANGES FOR PATIENT ON ORAL ANTICOAGULANT THERAPY Prevention of venous thromboembolism INR 2.0 to 3.0 In patients with heart disease: Atrial fibrillation INR 2.0 to 3.0 Valvular heart disease INR 2.0 to 3.0 Tissue heart valves INR 2.0 to 3.0 Mechanical prosthetic valves INR 2.5 to 3.5 Prevention of recurrent [place] INR 2.5 to 3.5 Marti Shell [facility] LAB BLOOD ORDERABLES Final Result Performing Organization Address [facility] Co de Phone Number [facility] [address] [place] [address] * (ABNORMAL) Wound Culture and Gram Stain (01/21/2025 11:32 AM EST) CULTURE READING WOUND Light Growth 01/27/2025 2:28 PM EST [facility] CULTURE READING WOUND Corynebacterium amycolatum(A) 01/27/2025 2:28 PM EST [facility] Comment: This isolate has been identified using the FDA Approved i-Nalysiser [place] System The organism value for this result has been updated. These results have been appended to the previously preliminary verified report. Edited result: Previously reported as Gram positive samuel on 01/24/2025 at 0826 EST. Gram Stain Result Rare Polymorphonuclear leukocytes(A) 01/27/2025 2:28 PM EST [facility] Gram Stain Result Rare Gram positive rods(A) 01/27/2025 2:28 PM EST [facility] Gram Stain Result Rare Gram positive cocci in pairs(A) 01/27/2025 2:28 PM EST [facility] Swab Topography unknown / Unknown Non-blood Collection / Unknown 01/21/2025 11:32 AM EST 01/21/2025 12:00 PM EST Narrative [facility] - 01/27/2025 2:28 PM EST Linezolid,Minocycline and Doxycycline requested by Bita Dyer on 01/24/25. Organism Antibiotic Method Susceptibility Corynebacterium amycolatum Erythromycin ETEST 256.0 ug/ml: Resistant Comment:Test not FDA approved. Results for research use only. Corynebacterium amycolatum Gentamicin ETEST 0.25 ug/ml: Susceptible Comment:Test not FDA approved. Results for research use only. Corynebacterium amycolatum Linezolid ETEST 0.19 ug/ml: Susceptible Corynebacterium amycolatum Minocycline ETEST 0.38 ug/ml: No Interpretation Available Corynebacterium amycolatum Penicillin G ETEST 3.0 ug/ml: Resistant Comment:Test not FDA approved. Results for research use only. Corynebacterium amycolatum Vancomycin ETEST 0.75 ug/ml: Susceptible Comment:Test not FDA approved. Results for research use only. Marti Cherry APRN LAB MICROBIOLOGY - GENERAL ORDERABLES Final Result 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 Ventricular tachycardia (CMS/HCC) Paroxysmal ventricular tachycardia PAF (paroxysmal atrial fibrillation) Atrial fibrillation NICM (nonischemic cardiomyopathy) (CMS/HCC) HFrEF (heart failure with reduced ejection fraction) Cardiac resynchronization therapy defibrillator (GETTER OPERATOR-D) in place documented in this encounter Additional [...] documented as of this encounter Care Teams Roll Over Loader Relationship Specialty Start Date End Date Herberth Perez MD [address] [place] [address] [place] [address] PCP - General 07/17/20 Gracia Petersen APRN [address] [place] [address] Nurse Practitioner Internal Medicine 08/06/20 Yunior Solorzano MD [address] [facility] [address] [place] [id number] Consulting Physician Gastroenterology 07/18/22 Ross Baez, [address] [phone] Surgeon Cardiothoracic Surgery 07/18/22 Edith Aleman, INHALATION THERAPIST None VAD Coordinator 10/14/24 documented as of this encounter
--- OUTSIDE RECORDS SUMMARY | 2025-01-29 07:39 | XMS_ITS | Encounter Summary ---
Author Organization Healthcare Address [address] [place] [address] Care Team Providers Care Process Development Manager Name Role Phone Herberth Perez MD Primary Care Provider [phone] Gracia Petersen CASING TESTER Unavailable [phone] Yunior Solorzano MD Unavailable [phone] Ross Baez DO Unavailable [phone] Edith Aleman RN Unavailable Unavailable Encounter Details Date Type Department Care Team (Latest Contact Info) Description 01/29/2025 7:39 AM EST - 01/29/2025 11:59 PM [facility] Hospital Encounter Cardiac Imaging [address] [place] [address] Biventricular ICD (implantable cardioverter-defibril lator) in place [...] any time in the past 12 m [facility], were you homeless or [...] drink first t janine in the morning (EYE-HIGHWAY MAINTENANCE CREW WORKER) to steady your nerves or to get rid of a hangover? 0 09/19/2021 CAGE Questionnaire Score 0 022 Utilities Answer Date Recorded In the past 12 months has th e [employer], [employer], oil, or water [employer] threatened to shut off services in your [...] daily at 1,000 mL/hr over 60 minutes. 67470 mL 11 01/08/2025 sotalol (Betapace) 120 MG [...] Description 04/22/2025 9:00 AM EST Ancillary Procedure [facility] [place] [address] [place] [address] documented as of this encounter Goals Goal Patient Goal Type Associated Problems Recent Progress Patient-Stated? Author LVAD Short Term Goal General On track( 024 11:53 AM EDT) Yes Katrin Oviedo RN Note: - 07/04/23: Patient states he wants to attend a wedding in November in [place] LVAD Eye Clinic Manager Goal General On track( 024 11:53 AM [...] Modality Other Narrative 01/29/2025 9:29 AM EST [facility] EP - Remote CIED alert (non-scheduled) Name: Jose Pearson Date: 01/29/2025 : 1970 Age: 54 y.o. Indication for alert: VT event, treated with ATPx1 Device: Volunteer Specialist: [employer]avaleta FLIGHT OPERATIONS ENGINEER-ICD Summary: As above, occurring yesterday at 1:43pm. [...] documented as of this encounter Care Teams Process Development Manager Relationship Specialty Start Date End Date Herberth Perez MD [address] [place] [address] [place] [address] PCP - General 07/17/20 Gracia Petersen APRN [address] [place] [address] Nurse Practitioner Internal Medicine 08/06/20 Yunior Solorzano MD [address] [place] [address] Consulting Physician Gastroenterology 07/18/22 Ross Baez DO [address] [address] Surgeon Cardiothoracic Surgery 07/18/22 Edith Aleman, THREAD LASTER None VAD Coordinator 10/14/24 documented as of this encounter
[2025-02-19] MEDS: IRON SUCROSE COMPLEX 200 MG in 0.9 % SODIUM CHLORIDE 100 ML 220 MG IV (15:02)
[2025-02-19 15:16] VITALS: RESP 20; O2SAT 99
--- OUTSIDE RECORDS SUMMARY | 2025-02-19 15:51 | XMS_ITS | Encounter Summary ---
Author Organization [employer] ([place], [place], [place], [place], [place]) Address [address] [place] [address] Care Team Providers Care Organic Gardening Teacher Name Role Phone Unavailable Primary Care Provider Stefan pond Encounter Details Date Type Department Care Team (Late st Contact Info) Description 03/28/2018 Transcribed Document [facility] [place] Family Medicine [facility] [place] [address] ProviderMg MD [facility] [place] [address] Social History Tobacco Use Types Packs/Day Years Used Date Smoking Tobacco: Never Assessed Sex and Gender Information Value Date Recorded Sex Assigned at Not on file Legal Sex Male 1:09 PM CDT Gender Identity Not on file Sexual Orientation Not on file documented as of this encounter Miscellaneous Notes * Cerner Conversion Note - Mg ProviderMD - 03/28/2018 1:07 PM FURNACE BRAZER Admission History, Adult Entered On: 03/28/2018 13:21 [...] EST Legal Guardian : Spouse Support Person/Patient Seating Captain : Yes Support Person/Pt Rep Name : Neel Pearson-- Support Person/Pt Rep Contact Information : [phone] Want Family/Rep/Phys Notified of Admit : No Emergency Contact #1 : neel Emergency Contact #1 Phone Number : [phone] Emergency Contact #1 Relationship : Emergency Contact #2 : na Emergency Contact #2 Phone Number : na Emergency Contact #2 Relationship : na Information Obtained From : Patient, Spouse Primary Language : Nigerian Preferred Communication Mode : Verbal Communication Barrier [...] Scale Risk Level : 25-45 Medium Risk [place] Fall Interventions : Adequate lighting, Assistive devices [...] Source : Stated Height Entry Format : [place] Height, Feet : 6 ft(Converted to: 183 cm, 72 Inch) Height, Inches : 0 Inch(Converted to: 0 ft 0 Inch, 0.00 cm) Clinical Height : 182.88 cm Weight Source : Standing scale Weight Entry Format : [place] Clinical Dosing Weight : 107.5 kg Weight, Pounds : 236 lb Weight, Ounces : 8 oz Body Surface Area (BSA) : 2.29 m2 Body Mass Index : 32.1 kg/m2 (HI) [place] Body Weight : 77 kg BRIAN BEASLEY [...] 03/28/2018 13:07 EST Electronically signed by Interface, [facility] Conversion Ladle Mechanic Cerner at 06/19/2022 10:55 PM CDT documented in this encounter Plan of Treatment Not on file documented as of this encounter Visit Diagnoses Not on filedocumented in this encounter
--- OUTSIDE RECORDS SUMMARY | 2025-02-19 15:51 | XMS_ITS | Encounter Summary ---
Author Organization [employer] ([place], [place], [place], [place], [place]) Address [address] [place] [address] Care Team Providers Care Retail Helper Name Role Phone Unavailable Primary Care Provider Unavailrodrick e Encounter Details Date Type Department Care Team (Late st Contact Info) Description 03/28/2018 Transcribed Document [facility] [place] [address] [place] [address] ProviderMg MD [facility] [place] [address] Social History Tobacco Use Types Packs/Day Years Used Date Smoking Tobacco: Never Assessed Sex and Gender Information Value Date Recorded Sex Assigned at Not on file Legal Sex Male 1:09 PM CDT Gender Identity Not on file Sexual Orientation Not on file documented as of this encounter Miscellaneous Notes * [employer]ner Conversion Note - Historical ProviderMD - 03/28/2018 1:36 PM EXPLOSIVE ORDNANCE MANAGER Education-Cardiac Topics Entered On: 03/28/2018 14:58 EST Performed On: 03/28/2018 13:36 EST by BRIAN BEASLEY RN Teaching/Learning Assessment Barriers To Learning : None evident Highest Level of Education : Some college Learning Style Preferences Patient : None Learning Style Preferences Family : None BRIAN BEASLEY RN - 03/28/2018 14:58 EST Electronically signed by Jackie [facility] Conversion Review Engineer Cerner at 06/19/2022 11:03 PM CDT documented in this encounter Plan of Treatment Not on file documented as of this encounter Visit Diagnoses Not on filedocumented in this encounter
--- OUTSIDE RECORDS SUMMARY | 2025-02-19 15:51 | XMS_ITS | Encounter Summary ---
Author Organization [employer] ([place], [place], [place], [place], [place]) Address [address] [place] [address] Care Team Providers Care Instructor Hairspring Name Role Phone Unavailable Primary Care Provider Unavailabl e Encounter Details Date Type Department Care Team (Late st Contact Info) Description 03/28/2018 Transcribed Document [facility] [place] [facility] [place] [address] ProviderMg MD [facility] [place], [place] [id number] Social History Tobacco Use Types Packs/Day Years Used Date Smoking Tobacco: Never Assessed Sex and Gender Information Value Date Recorded Sex Assigned at Not on file Legal Sex Male 1:09 PM CDT Gender Identity Not on file Sexual Orientation Not on file documented as of this encounter Miscellaneous Notes * Cerner Conversion Note - Mg Ritchie MD - 03/28/2018 1:44 PM TELEMARKETER Patient: JOSE PEARSON Age: 47 years Sex: [...] Refill(s) fluticasone 50 mcg/inh nasal spray: 1 Amelia, Nostrils Both, Daily, 0 Refill(s) montelukast 10 [...] list: All Problems angina / SNOMED CT 106667835 / Confirmed Asthma / SNOMED CT 997925628 / Confirmed At risk for sleep apnea / IMO 84350561 / Confirmed cardiac defibulator / Confirmed interrogated at physicians office---02/22/13 pacemaker / SNOMED CT 9924683575 / Confirmed Cardiomyopathy / SNOMED CT 239997735 / Confirmed stroke / SNOMED CT 199382501 / Confirmed he had a stroke when they found the blood clot in valve 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 / Confirmed treated with blood thinners GERD - Gastro-esophageal reflux disease / SNOMED CT 3567191067 / Confirmed H/O: CVA / SNOMED CT 863675947 / Confirmed Heart failure / SNOMED CT 935800945 / Confirmed high cholesterol / SNOMED CT 21895896 / Confirmed Hyperlipidemia / SNOMED CT 98930060 / Confirmed hypertension / SNOMED CT 1392713799 / Confirmed myocardial infarction / SNOMED CT 93681404 / Confirmed sesonal allergies / Confirmed, Active [...] of motion, Normal strength. Integumentary: Warm, Dry, [place]. Neurologic: Alert, Oriented. Cognition and Speech: Oriented, [...] after right heart catheter tomorrow if necessary Electronically signed by Morales Mejia Conversion Tumble Tailstock Turret Lathe Operator Cerner at 06/19/2022 11:05 PM CDT documented in this encounter Plan of Treatment Not on file documented as of this encounter Visit Diagnoses Not on filedocumented in this encounter
--- OUTSIDE RECORDS SUMMARY | 2025-02-19 15:51 | XMS_ITS | Encounter Summary ---
Author Organization [facility] Address [address] [place] [address] Care Team Providers Care Optical Effects Layout Person Name Role Phone Herberth Perez MD Primary Care Provider Katrin Oviedo RN Unavailable [phone] Zaida Lafleur GIN OPERATOR Unavailable Gracia Petersen GIN OPERATOR Unavailable Yunior Solorzano MD Unavailable [phone] Ross Baez DO Unavailable [phone] Edith Aleman RN Unavailable Unavailable Encounter Details Date Type Department Care Team (Late st Contact Info) Description 05/21/2019 [facility] Historical OTTR [address] [place] [address] Shelbie Garcia, RN [facility] [address] [place] [address] Social History Tobacco Use Types Packs/Day Years [...] LVIDd 6.8cm, LVEF <20%. RHC performed at [facility] on 05/08/19 showed CI 1.6. SW consult [...] Description 04/22/2025 9:00 AM EST Ancillary Procedure [facility] [place] [address] 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 MDRO Escalation Plan Comment:MDRO escalation plan through 05/06/24 04/15/2024 04/15/2024 04/20/2024 5:[address] documented as of this encounter Care Teams Optical Effects Layout Person Relationship Specialty Start Date End Date Herberth Perez MD [address] [place] [address] [place] [id number] PCP - General 07/17/20 Katrin Oviedo RN [facility] [address] [place], [place] [id number] VAD Coordinator Cardiology 08/06/20 10/21/24 Zaida Lafleur APRN [address] [place] [phone] Nurse Practitioner Advanced Heart Failure and Transplant Cardiology 08/06/20 06/11/23 Gracia Petersen APRN [address] [place] [phone] Nurse Practitioner Internal Medicine 08/06/20 Yunior Solorzano MD [address] [address] Consulting Physician Gastroenterology 07/18/22 Ross Baez, DO [address] [place] [phone] Surgeon Cardiothoracic Surgery 07/18/22 Edith Aleman, GREY GOODS EXAMINER None VAD Coordinator 10/14/24 documented as of this encounter
--- OUTSIDE RECORDS SUMMARY | 2025-02-19 15:51 | XMS_ITS | Encounter Summary ---
Author Organization [employer] ([place], [place], [place], [place], [place]) Address [address] [place] [address] Care Team Providers Care Ortho Nurse Name Role Phone Unavailable Primary Care Provider Unavailabl e Encounter Details Date Type Department Care Team (Late st Contact Info) Description 03/28/2018 Transcribed Document [facility] [place] [address] [place] [address] ProviderMg MD [facility] [place] [address] Social History Tobacco Use Types Packs/Day Years Used Date Smoking Tobacco: Never Assessed Sex and Gender Information Value Date Recorded Sex Assigned at Not on file Legal Sex Male 1:09 PM CDT Gender Identity Not on file Sexual Orientation Not on file documented as of this encounter Miscellaneous Notes * [employer]ner Conversion Note - Historical ProviderMD - 03/28/2018 5:50 PM COMPLIANCE AUDITOR Spiritual Care Short Form Entered On: 03/28/2018 18:12 EST Performed On: 03/28/2018 17:50 EST by Billy Lewis CHAPLAIN General Information, Spiritual Care Spiritual Care Referred by : Family Reason for Visit : Initial Ministry Provided to : Patient Intervention/Comment/Summary Points : Financial Systems Manager paged for a meal voucher for patient's . Financial Systems Manager delivered the meal voucher. Billy Lewis CHAPLAIN - 03/28/2018 18:11 EST documented in this encounter Plan of Treatment Not on file documented as of this encounter Visit Diagnoses Not on filedocumented in this encounter
--- OUTSIDE RECORDS SUMMARY | 2025-02-19 15:51 | XMS_ITS | Encounter Summary ---
Author Organization [employer] ([place], [place], [place], [place], [place]) Address [address] [place] [address] Care Team Providers Care Air Crew Supervisor Name Role Phone Unavailable Primary Care Provider Stefan pond Encounter Details Date Type Department Care Team (Late st Contact Info) Description 03/28/2018 Transcribed Document [facility] [place] [facility] [place] [address] ProviderMg MD [facility] [place], [place] [address] Social History Tobacco Use Types Packs/Day Years Used Date Smoking Tobacco: Never Assessed Sex and Gender Information Value Date Recorded Sex Assigned at Not on file Legal Sex Male 1:09 PM CDT Gender Identity Not on file Sexual Orientation Not on file documented as of this encounter Miscellaneous Notes * Cerner Conversion Note - Historical ProviderMD - 03/28/2018 1:21 PM NATIONAL SALES MANAGER Provider Notification Entered On: 03/28/2018 14:57 EST Performed On: 03/28/2018 13:21 EST by BRIAN BEASLEY RN Provider Notification Provider Notified of Concerns/Results : Other: sleep apnea Provider Notified of : Nurse concerns, Patient Arrival Provider Response : No new orders BRIAN BEASLEY RN - 03/28/2018 14:56 EST Electronically signed by Jackie [facility] Conversion Environmental Field Technician Cerner at 06/19/2022 10:56 PM CDT documented in this encounter Plan of Treatment Not on file documented as of this encounter Visit Diagnoses Not on filedocumented in this encounter
--- OUTSIDE RECORDS SUMMARY | 2025-02-19 15:51 | XMS_ITS | Encounter Summary ---
Author Organization [employer] ([place], [place], [place], [place], [place]) Address [address] [place] [address] Care Team Providers Care Supervisor Game Farm Name Role Phone Unavailable Primary Care Provider Unavailrodrick e Encounter Details Date Type Department Care Team (Late st Contact Info) Description 03/28/2018 Transcribed Document [facility] [place] [address] [place] [address] ProviderMg MD [facility] [place] [address] Social History Tobacco Use Types Packs/Day Years Used Date Smoking Tobacco: Never Assessed Sex and Gender Information Value Date Recorded Sex Assigned at Not on file Legal Sex Male 1:09 PM CDT Gender Identity Not on file Sexual Orientation Not on file documented as of this encounter Miscellaneous Notes * [employer] Conversion Note - Historical ProviderMD - 03/28/2018 1:36 PM HEAD GAUGE UNIT OPERATOR Education-(VTE) / (DVT) Entered On: 03/28/2018 14:58 [...]
--- OUTSIDE RECORDS SUMMARY | 2025-02-19 15:51 | XMS_ITS | Encounter Summary ---
Author Organization [employer] ([place], [place], [place], [place], [place]) Address [address] [place] [address] Care Team Providers Care Transitional Care Nurse Name Role Phone Unavailable Primary Care Provider Stefan pond Encounter Details Date Type Department Care Team (Late st Contact Info) Description 03/28/2018 Transcribed Document [facility] [place] Medicine [address] [place] [address] ProviderMg MD [facility] [place] [address] Social History Tobacco Use Types Packs/Day Years Used Date Smoking Tobacco: Never Assessed Sex and Gender Information Value Date Recorded Sex Assigned at Not on file Legal Sex Male 1:09 PM CDT Gender Identity Not on file Sexual Orientation Not on file documented as of this encounter Miscellaneous Notes * [employer]ner Conversion Note - Historical ProviderMD - 03/28/2018 1:21 PM REBAR FABRICATOR Education-Smoking Cessation Entered On: 03/28/2018 14:57 EST [...]
--- OUTSIDE RECORDS SUMMARY | 2025-02-19 15:51 | XMS_ITS | Encounter Summary ---
Author Organization [employer] ([place], [place], [place], [place], [place]) Address [address] [place] [address] Care Team Providers Care Skin Carver Name Role Phone Unavailable Primary Care Provider Unavailabl e Encounter Details Date Type Department Care Team (Late st Contact Info) Description 03/28/2018 Transcribed Document [facility] [place] [facility] [place] [address] ProviderMg MD [facility] [place] [address] Social History Tobacco Use Types Packs/Day Years Used Date Smoking Tobacco: Never Assessed Sex and Gender Information Value Date Recorded Sex Assigned at Not on file Legal Sex Male 1:09 PM CDT Gender Identity Not on file Sexual Orientation Not on file documented as of this encounter Miscellaneous Notes * [employer]ner Conversion Note - Historical ProviderMD - 03/28/2018 1:36 PM HOME HOSPICE AIDE Cardiac and Pulmonary Outpatient [place] Entered On: 03/29/2018 15:22 EST Performed On: 03/28/2018 13:36 EST by EDITH CHAVIS RN Cardiac and Pulmonary Outpatient [facility] Phase 2 Cardiac Rehab Criteria Met : Heart failure (HF) Cardiac Outpatient Rehab Evaluation Comment : Order faxed to [place] [facility] per pt location. EDITH CHAVIS RN - 03/29/2018 15:22 EST documented in this encounter Plan of Treatment Not on file documented as of this encounter Visit Diagnoses Not on filedocumented in this encounter
--- OUTSIDE RECORDS SUMMARY | 2025-02-19 15:52 | XMS_ITS | Clinical Summary ---
Author Organization [employer] ([place], [place], [place], [place], [place]) Address [address] [place] [address] Care Team Providers Care Dimethylaniline Sulfator Operator Name Role Phone Unavailable Primary Care [...]
--- OUTSIDE RECORDS SUMMARY | 2025-02-19 15:52 | XMS_ITS | Encounter Summary ---
Author Organization [employer] ([place], [place], [place], [place], [place]) Address [address] [place] [address] Care Team Providers Care Vehicle Modification Technician Name Role Phone Unavailable Primary Care Provider Unavailabl e Encounter Details Date Type Department Care Team (Late st Contact Info) Description 05/13/2019 Transcribed Document [facility] [place] Medicine [facility] [place] [address] ProviderMg MD [facility] [place] [address] Social History Tobacco Use Types [...] Policy Numbers : Insurance 1 Health Plan: [facility] Policy Number: Authorization Number: [id number] Insurance Primary Name : [employer] Administators [id number] Authorization Status-Primary : Admit approved Authorization Number-Primary : [id number] Number of Days Authorized-Primary : 6 Day(s) Authorized Service Begin Date-Primary : 05/03/2019 EST Authorized Service End Date-Primary : 05/09/2019 EST Authorization Comments-Primary : ARC approved per Katrin for 05/09 to 05/12 -- gave d/c date Historical Authorization Comments-Primary : Comment 1: Continued stay clinicals faxed via [employer] (Trudi Ganoa Rn-Utilization Review 2019 12:15) Comment 2: ARC approved per Katrin for total of 7 days --- nrd 3/6 (CHARLA BARRAZA, RN-Utilization Review 05/08/2019 15:22) Comment 3: Clinicals for CS faxed via [employer] (MARLENE THORNTON, Rn-Utilization Review 05/08/2019 14:43) Comment 4: [place] approved per Katrin for 5 days total --- nrd 3/4 (CHARLA BARRAZA, RN-Utilization Review 05/06/2019 13:43) Comment 5: Uploaded continuing stay clinicals (05/06/19) to [facility] via [employer]. (ARMANDO SHANNON, RN-Utilization Review 05/06/2019 12:11) Comment 6: Per [facility], admit approved with auth #[id number] given from 05/03-05/05/19. Next review date 05/06/19. (ARMANDO SHANNON, RN-Utilization Review 05/06/2019 08:05) Comment 7: Uploaded clinicals to [facility] administrators via [employer]. Manually faxed ARC form. (ARMANDO SHANNON, RN-Utilization Review 05/03/2019 13:31) CHARLA BARRAZA RN-Utilization Review - 05/13/2019 12:11 EDT Electronically signed by Morales Mejia Conversion And Rescue Fire Fighter Crash Fire Cerjohnnie at 06/19/2022 11:10 PM CDT documented in this encounter Plan of Treatment Not on file documented as of this encounter Visit Diagnoses Not on filedocumented in this encounter
--- OUTSIDE RECORDS SUMMARY | 2025-02-19 15:52 | XMS_ITS | Encounter Summary ---
Author Organization [facility] Address [address] [place] [address] Care Team Providers Care Skate Boarder Name Role Phone Herberth Perez MD Primary Care Provider [phone] Katrin Oviedo RN Unavailable [phone] Zaida Lafleur ENVIRONMENTAL SERVICES FLOOR TECH Unavailable Gracia Petersen ENVIRONMENTAL SERVICES FLOOR TECH Unavailable [phone] Yunior Solorzano MD Unavailable [phone] Ross Baez DO Unavailable [phone] Edith Aleman RN Unavailable Unavailable Encounter Details Date Type Department Care Team (Late st Contact Info) Description 01/21/2020 [facility] OTTR Encounter Historical OTTR [address] [place] [address] Katrin Oviedo, RN [facility] [address] [id number] Social History Tobacco Use Types Packs/Day Years [...] to hold warfarin x2 doses and recheck INRThday prior to bronchoscopy and dilation in OR on Monday. Patient's reports he has accidentally been taking 8mg daily (instead of 4mg) including last night. INR recheck this morning 5.6. Instructed patient to hold warfarin until further notice, take 2.5mg PO vitamin K once per LVAD protocol, and recheck INR tomorrow. Prescription sent to [facility] for 2.5mg phytonadione once. Dr. De Los Santos, LORI Lafleur, Sanjay White, VAD coordinators notified. * Progress Notes - Katrin Oviedo RN - 07/07/2020 5:21 PM EDT Patient extremely tired, sleeping throughout day, occasionally incontinent of urine since starting dantrolene per [facility]. Discussed with Sanjay White; these could [...] 06/03/2020 3:20 PM EDT Patient seen at [facility]. Verified with Sanjay White [...] skin) with Vashe wound cleanser. Dr. Raya, s notified. * Progress Notes - Katrin Oviedo RN - 01/21/2020 11:21 AM EST Patient's bronch moved to [facility] with Dr. Sanchez. ECHO performed to assess [...] . Discussed with Dr. Mcwilliams (ENT) and PharmJulia, patient to hold warfarin x3 days prior [...] Wilson RN - 11/25/2019 3:58 PM EDT [facility] ED Doctor Yared contacted [facility] Coordinator to report that patient's CXR showed mild atelectasis on RLL and increased interstitial markings. Negative for PNA. Lab work revealed markedly elevated D-Dimer 1210. CT chest ordered to rule out PE. * Progress Notes - Niecy Wilson RN - 11/25/2019 11:21 AM EDT Patient's contacted [facility] Coordinator to report increased SOA while sitting [...] friends. Pt's eldest step-son Dwain currently works field assessor and is a student field assessor. Pt also reports multiple additional family members [...] Pt also denied any legal problems or adventist restrictions on medical care. Pt scored 25 on the SIPAT (Gerard Integrated Psychosocial Assessment for Transplant) which therefore [...] in SCM or All Docs (Txp SW #[id number], pager [phone]). * Progress Notes - Heber Page - 05/17/2019 1:30 PM EDT Colonoscopy Report is scanned into OTTR. 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, ablation 2019 at [facility], previous RHC done in 2018 or 2019 at [facility], colonoscopy done 2019 at [facility], admitted to [facility] on 05/02/19 and also in Mar 2019, Cardiomems implanted last week (notified Heber Cornejo to request records for ablation, most recent RHC, colonoscopy and admissions) pt receives disability benefits, emailed map with appt info to [email or web address] Kailey Shetty notified to cancel appt on 05/26, notified MD Baez of the above and emailed eval notified to the eval listserv * Progress Notes - Shelbie Garcia - 05/13/2019 5:25 PM EDT per email from MD Baez: I received a phone call in the middle of [facility] and did not get the name of the referring although it could have been Dr. Hobbs as he does have an EP visit [...] set up an appt with his regular Molder Trimmer for . I explained beingtransferred to or [...] Description 04/22/2025 9:00 AM EST Ancillary Procedure [facility] [address] [place] [address] documented as of this encounter Procedures Procedure [...] 07/28/2020 10:41 AM EDT Automated LAB Interface us Historical Provider LAB BLOOD ORDERABLES Final R esult Performing Organization Address City/[facility]/ZIP Co de Phone Number EXTERNAL LAB * OTTR LAB RESULTS (MANUAL) (06/16/2020 10:46 AM EDT) External Estimated GFR 148.12 EXTERNAL LAB 06/16/2020 10:4 6 AM EDT Narrative EXTERNAL LAB - 06/16/2020 12:27 PM EDT Automated LAB Interface us Historical Provider LAB BLOOD ORDERABLES Final R esult Performing Organization Address City/[facility]/ZIP Co de Phone Number EXTERNAL LAB * OTTR LAB RESULTS (MANUAL) (01/07/2020 9:37 AM EST) External Estimated GFR 114.93 EXTERNAL LAB 01/07/2020 9:37 AM EST Narrative EXTERNAL LAB - 01/07/2020 11:27 AM EST Automated LAB Interface us Historical Provider LAB [...] EXTERNAL LAB - 12/25/2019 9:37 AM EDT [facility] Historical Provider LAB BLOOD ORDERABLES Final R esult Performing Organization Address City/[facility]/ZIP Co de Phone Number EXTERNAL LAB * OTTR LAB RESULTS (MANUAL) (12/16/2019 1:08 PM EDT) External Estimated GFR 85.70 EXTERNAL LAB 12/16/2019 1:08 PM EDT Narrative EXTERNAL LAB - 12/16/2019 4:15 PM EDT Automated LAB Interface Historical Provider [...] EXTERNAL LAB - 12/17/2019 11:04 AM EDT [facility] Historical Provider LAB BLOOD ORDERABLES Final R [...] EXTERNAL LAB - 11/25/2019 2:41 PM EDT [facility] Historical Provider LAB BLOOD ORDERABLES Final R esult EXTERNAL LAB * OTTR LAB RESULTS (MANUAL) (11/19/2019 9:34 AM EDT) External Estimated GFR 108.32 EXTERNAL LAB 11/19/2019 9:34 AM EDT Narrative EXTERNAL LAB - 11/19/2019 10:39 AM EDT Automated LAB Interface Historical Provider [...] EXTERNAL LAB - 11/08/2019 9:10 AM EDT [facility] Historical Provider LAB BLOOD ORDERABLES Final [...] EXTERNAL LAB - 11/05/2019 10:09 AM EDT [facility] us Historical Provider LAB BLOOD ORDERABLES [...] EXTERNAL LAB - 10/22/2019 4:46 PM EDT [facility] Historical Provider LAB BLOOD ORDERABLES Final R esult Performing Organization Address [facility] de Phone Number EXTERNAL LAB * OTTR [...] EXTERNAL LAB - 09/27/2019 5:06 PM EDT [facility] Historical Provider LAB BLOOD ORDERABLES Final R esult Performing Organization Address [facility] de Phone Number EXTERNAL LAB * OTTR LAB RESULTS (MANUAL) (08/14/2019 3:03 AM EDT) External Estimated GFR 282.34 EXTERNAL LAB 08/14/2019 3:03 AM EDT Narrative EXTERNAL LAB - 08/14/2019 4:51 AM EDT Automated LAB Interface Historical Provider LAB BLOOD ORDERABLES Final R esult Performing Organization Address [facility] de Phone Number EXTERNAL LAB * OTTR LAB RESULTS (MANUAL) (08/12/2019 2:33 AM EDT) External Estimated GFR 350.76 EXTERNAL LAB 08/12/2019 2:33 AM EDT Narrative EXTERNAL LAB - 08/12/2019 3:13 AM EDT Automated LAB Interface Historical Provider LAB BLOOD ORDERABLES Final R esult Performing Organization Address City/[facility]/ZIP Co de Phone Number EXTERNAL LAB * OTTR LAB RESULTS (MANUAL) (08/10/2019 4:10 AM EDT) External Estimated GFR 324.78 EXTERNAL LAB 08/10/2019 4:10 AM EDT Narrative EXTERNAL LAB - 08/10/2019 5:18 AM EDT Automated LAB Interface Historical Provider LAB BLOOD ORDERABLES Final R esult Performing Organization Address City/[facility]/ZIP Co de Phone Number EXTERNAL LAB * OTTR LAB RESULTS (MANUAL) (08/10/2019 2:10 AM EDT) Pathologist [facility] External Estimated GFR 337.31 EXTERNAL LAB 08/10/2019 2:10 AM EDT Narrative EXTERNAL LAB - 08/10/2019 3:27 AM EDT Automated LAB Interface Historical Provider LAB BLOOD ORDERABLES Final R esult Performing Organization Address [facility] de Phone Number EXTERNAL LAB * OTTR LAB RESULTS (MANUAL) (08/09/2019 1:59 AM EDT) Pathologist [facility] External Estimated GFR 256.77 EXTERNAL LAB 08/09/2019 1:59 AM EDT Narrative EXTERNAL LAB - 08/09/2019 3:17 AM EDT Automated LAB Interface Historical Provider LAB BLOOD ORDERABLES Final R esult Performing Organization Address [facility] de Phone Number EXTERNAL LAB * OTTR LAB RESULTS (MANUAL) (08/07/2019 2:08 AM EDT) Pathologist [facility] External Estimated GFR 235.22 EXTERNAL LAB 08/07/2019 2:08 AM EDT Narrative EXTERNAL LAB - 08/07/2019 6:05 AM EDT Automated LAB Interface Historical Provider LAB BLOOD ORDERABLES Final R esult Performing Organization Address City/[facility] Co de Phone Number EXTERNAL LAB * OTTR LAB RESULTS (MANUAL) (08/06/2019 9:24 AM EDT) Pathologist [facility] External Estimated GFR 235.22 EXTERNAL LAB 08/06/2019 9:24 AM EDT Narrative EXTERNAL LAB - 08/06/2019 10:54 AM EDT Automated LAB Interface Historical Provider LAB BLOOD ORDERABLES Final R esult Performing Organization Address [facility] de Phone Number EXTERNAL LAB * OTTR LAB RESULTS (MANUAL) (08/05/2019 4:52 AM EDT) External Estimated GFR 273.31 EXTERNAL LAB 08/05/2019 4:52 AM EDT Narrative EXTERNAL LAB - 08/05/2019 6:21 AM EDT Automated LAB Interface Historical Provider LAB BLOOD ORDERABLES Final R esult Performing Organization Address [facility] de Phone Number EXTERNAL LAB * OTTR LAB RESULTS (MANUAL) (08/04/2019 1:42 AM EDT) External Estimated GFR 228.77 EXTERNAL LAB 08/04/2019 1:42 AM EDT Narrative EXTERNAL LAB - 08/04/2019 6:13 AM EDT Automated LAB Interface Historical Provider LAB BLOOD ORDERABLES Final R esult Performing Organization Address [facility] de Phone Number EXTERNAL LAB * OTTR LAB RESULTS (MANUAL) (08/03/2019 3:37 AM EDT) External Estimated GFR 256.77 EXTERNAL LAB 08/03/2019 3:37 AM EDT Narrative EXTERNAL LAB - 08/03/2019 4:21 AM EDT Automated LAB Interface us Historical Provider LAB BLOOD ORDERABLES Final R esult Performing Organization Address [facility] Co de Phone Number EXTERNAL LAB * OTTR LAB RESULTS (MANUAL) (08/02/2019 3:17 AM EDT) External Estimated GFR 264.80 EXTERNAL LAB 08/02/2019 3:17 AM EDT Narrative EXTERNAL LAB - 08/02/2019 3:57 AM EDT Automated LAB Interface us Historical Provider LAB BLOOD ORDERABLES Final R esult Performing Organization Address City/[facility] Co de Phone Number EXTERNAL LAB * OTTR LAB RESULTS (MANUAL) (07/31/2019 2:26 AM EDT) External Estimated GFR 273.31 EXTERNAL LAB 07/31/2019 2:26 AM EDT Narrative EXTERNAL LAB - 07/31/2019 6:59 AM EDT Automated LAB Interface Historical Provider LAB BLOOD ORDERABLES Final R esult Performing Organization Address [facility] de Phone Number EXTERNAL LAB * OTTR LAB RESULTS (MANUAL) (07/29/2019 3:39 AM EDT) External Estimated GFR 242.02 EXTERNAL LAB 07/29/2019 3:39 AM EDT Narrative EXTERNAL LAB - 07/29/2019 7:09 AM EDT Automated LAB Interface Historical Provider LAB BLOOD ORDERABLES Final R esult Performing Organization Address [facility] de Phone Number EXTERNAL LAB * OTTR LAB RESULTS (MANUAL) (07/28/2019 4:04 AM EDT) External Estimated GFR 242.02 EXTERNAL LAB 07/28/2019 4:04 AM EDT Narrative EXTERNAL LAB - 07/28/2019 4:51 AM EDT Automated LAB Interface Historical Provider LAB BLOOD ORDERABLES Final R esult Performing Organization Address [facility] Co de Phone Number EXTERNAL LAB * OTTR LAB RESULTS (MANUAL) (07/26/2019 5:34 AM EDT) External Estimated GFR 242.02 EXTERNAL LAB 07/26/2019 5:34 AM EDT Narrative EXTERNAL LAB - 07/26/2019 6:03 AM EDT Automated LAB Interface us Historical Provider LAB BLOOD ORDERABLES Final R esult Performing Organization Address City/[facility] de Phone Number EXTERNAL LAB * OTTR LAB RESULTS (MANUAL) (07/24/2019 2:17 AM EDT) External Estimated GFR 291.94 EXTERNAL LAB 07/24/2019 2:17 AM EDT Narrative EXTERNAL LAB - 07/24/2019 2:50 AM EDT Automated LAB Interface us Historical Provider LAB BLOOD ORDERABLES Final R esult Performing Organization Address [facility] de Phone Number EXTERNAL LAB * OTTR LAB RESULTS (MANUAL) (07/22/2019 12:33 PM EDT) External Estimated GFR 228.77 EXTERNAL LAB 07/22/2019 12:3 3 PM EDT Narrative EXTERNAL LAB - 07/22/2019 1:26 PM EDT Automated LAB Interface us Historical Provider LAB BLOOD ORDERABLES Final R esult Performing Organization Address [facility] de Phone Number EXTERNAL LAB * OTTR LAB RESULTS (MANUAL) (07/22/2019 2:35 AM EDT) External Estimated GFR 242.02 EXTERNAL LAB 07/22/2019 2:35 AM EDT Narrative EXTERNAL LAB - 07/22/2019 3:30 AM EDT Automated LAB Interface us Historical Provider LAB BLOOD ORDERABLES Final R esult Performing Organization Address [facility] de Phone Number EXTERNAL LAB * OTTR LAB RESULTS (MANUAL) (07/21/2019 5:39 PM EDT) External Estimated GFR 249.19 EXTERNAL LAB 07/21/2019 5:39 PM EDT Narrative EXTERNAL LAB - 07/21/2019 6:05 PM EDT Automated LAB Interface us Historical Provider LAB BLOOD ORDERABLES Final R esult Performing Organization Address [facility] de Phone Number EXTERNAL LAB * OTTR LAB RESULTS (MANUAL) (07/21/2019 3:13 AM EDT) External Estimated GFR 228.77 EXTERNAL LAB 07/21/2019 3:13 AM EDT Narrative EXTERNAL LAB - 07/21/2019 7:02 AM EDT Automated LAB Interface Historical Provider LAB BLOOD ORDERABLES Final R esult Performing Organization Address City/[facility]/ZIP Co de Phone Number EXTERNAL LAB * OTTR LAB RESULTS (MANUAL) (07/20/2019 2:25 PM EDT) External Estimated GFR 222.64 EXTERNAL LAB 07/20/2019 2:25 PM EDT Narrative EXTERNAL LAB - 07/20/2019 4:27 PM EDT Automated LAB Interface Historical Provider LAB BLOOD ORDERABLES Final R esult Performing Organization Address [facility]/ZIP Co de Phone Number EXTERNAL LAB * OTTR LAB RESULTS (MANUAL) (07/20/2019 1:55 AM EDT) External Estimated GFR 211.26 EXTERNAL LAB 07/20/2019 1:55 AM EDT Narrative EXTERNAL LAB - 07/20/2019 2:29 AM EDT Automated LAB Interface Historical Provider LAB BLOOD ORDERABLES Final R esult Performing Organization Address [facility] Co de Phone Number EXTERNAL LAB * OTTR LAB RESULTS (MANUAL) (07/19/2019 12:26 PM EDT) External Estimated GFR 222.64 EXTERNAL LAB 07/19/2019 12:2 6 PM EDT Narrative EXTERNAL LAB - 07/19/2019 1:00 PM EDT Automated LAB Interface us Historical Provider LAB BLOOD ORDERABLES Final R esult EXTERNAL LAB * OTTR LAB RESULTS (MANUAL) (07/19/2019 2:50 AM EDT) External Estimated GFR 222.64 EXTERNAL LAB 07/19/2019 2:50 AM EDT Narrative EXTERNAL LAB - 07/19/2019 5:07 AM EDT Automated LAB Interface Historical Provider LAB BLOOD ORDERABLES Final R esult Performing Organization Address [facility] de Phone Number EXTERNAL LAB * OTTR LAB RESULTS (MANUAL) (07/18/2019 3:30 AM EDT) External Estimated GFR 205.97 EXTERNAL LAB 07/18/2019 3:30 AM EDT Narrative EXTERNAL LAB - 07/18/2019 4:07 AM EDT Automated LAB Interface Historical Provider LAB BLOOD ORDERABLES Final R esult Performing Organization Address [facility] de Phone Number EXTERNAL LAB * OTTR LAB RESULTS (MANUAL) (07/17/2019 3:33 AM EDT) External Estimated GFR 222.64 EXTERNAL LAB 07/17/2019 3:33 AM EDT Narrative EXTERNAL LAB - 07/17/2019 6:36 AM EDT Automated LAB Interface Historical Provider LAB BLOOD ORDERABLES Final R esult Performing Organization Address [facility] de Phone Number EXTERNAL LAB * OTTR LAB RESULTS (MANUAL) (07/16/2019 1:11 AM EDT) External Estimated GFR 200.92 EXTERNAL LAB 07/16/2019 1:11 AM EDT Narrative EXTERNAL LAB - 07/16/2019 2:24 AM EDT Automated LAB Interface us Historical Provider LAB BLOOD ORDERABLES Final R esult Performing Organization Address [facility] Co de Phone Number EXTERNAL LAB * OTTR LAB RESULTS (MANUAL) (07/15/2019 1:56 AM EDT) External Estimated GFR 228.77 EXTERNAL LAB 07/15/2019 1:56 AM EDT Narrative EXTERNAL LAB - 07/15/2019 2:59 AM EDT Automated LAB Interface us Historical Provider LAB BLOOD ORDERABLES Final R esult EXTERNAL LAB * OTTR LAB RESULTS (MANUAL) (07/14/2019 1:56 AM EDT) External Estimated GFR 249.19 EXTERNAL LAB 07/14/2019 1:56 AM EDT Narrative EXTERNAL LAB - 07/14/2019 3:02 AM EDT Automated LAB Interface us Historical Provider LAB BLOOD ORDERABLES Final R esult Performing Organization Address City/[facility]/ZIP Co de Phone Number EXTERNAL LAB * OTTR LAB RESULTS (MANUAL) (07/13/2019 4:51 AM EDT) External Estimated GFR 273.31 EXTERNAL LAB 07/13/2019 4:51 AM EDT Narrative EXTERNAL LAB - 07/13/2019 6:25 AM EDT Automated LAB Interface us Historical Provider LAB BLOOD ORDERABLES Final R esult Performing Organization Address City/[facility]/ZIP Co de Phone Number EXTERNAL LAB * OTTR LAB RESULTS (MANUAL) (07/12/2019 5:39 PM EDT) External Estimated GFR 228.77 EXTERNAL LAB 07/12/2019 5:39 PM EDT Narrative EXTERNAL LAB - 07/12/2019 6:20 PM EDT Automated LAB Interface us Historical Provider LAB BLOOD ORDERABLES Final R esult EXTERNAL LAB * OTTR LAB RESULTS (MANUAL) (07/12/2019 2:03 AM EDT) External Estimated GFR 228.77 EXTERNAL LAB 07/12/2019 2:03 AM EDT Narrative EXTERNAL LAB - 07/12/2019 6:39 AM EDT Automated LAB Interface us Historical Provider LAB BLOOD ORDERABLES Final R esult Performing Organization Address [facility] de Phone Number EXTERNAL LAB * OTTR LAB RESULTS (MANUAL) (07/11/2019 8:53 PM EDT) External Estimated GFR 205.97 EXTERNAL LAB 07/11/2019 8:53 PM EDT Narrative EXTERNAL LAB - 07/11/2019 9:33 PM EDT Automated LAB Interface Historical Provider LAB BLOOD ORDERABLES Final R esult Performing Organization Address [facility] de Phone Number EXTERNAL LAB * OTTR LAB RESULTS (MANUAL) (07/11/2019 4:30 AM EDT) External Estimated GFR 235.22 EXTERNAL LAB 07/11/2019 4:30 AM EDT Narrative EXTERNAL LAB - 07/11/2019 6:41 AM EDT Automated LAB Interface us Historical Provider LAB BLOOD ORDERABLES Final R esult Performing Organization Address [facility] de Phone Number EXTERNAL LAB * OTTR LAB RESULTS (MANUAL) (07/10/2019 4:26 PM EDT) External Estimated GFR 211.26 EXTERNAL LAB 07/10/2019 4:26 PM EDT Narrative EXTERNAL LAB - 07/10/2019 4:57 PM EDT Automated LAB Interface us Historical Provider LAB BLOOD ORDERABLES Final R esult Performing Organization Address [facility] de Phone Number EXTERNAL LAB * OTTR LAB RESULTS (MANUAL) (07/10/2019 4:14 AM EDT) External Estimated GFR 264.80 EXTERNAL LAB 07/10/2019 4:14 AM EDT Narrative EXTERNAL LAB - 07/10/2019 5:26 AM EDT Automated LAB Interface us Historical Provider LAB BLOOD ORDERABLES Final R esult Performing Organization Address [facility] de Phone Number EXTERNAL LAB * OTTR LAB RESULTS (MANUAL) (07/09/2019 6:57 PM EDT) External Estimated GFR 211.26 EXTERNAL LAB 07/09/2019 6:57 PM EDT Narrative EXTERNAL LAB - 07/09/2019 7:31 PM EDT Automated LAB Interface us Historical Provider LAB BLOOD ORDERABLES Final R esult Performing Organization Address City/[facility] Co de Phone Number EXTERNAL LAB * OTTR LAB RESULTS (MANUAL) (07/09/2019 3:30 PM EDT) External Estimated GFR 222.64 EXTERNAL LAB 07/09/2019 3:30 PM EDT Narrative EXTERNAL LAB - 07/09/2019 4:10 PM EDT Automated LAB Interface Historical Provider LAB BLOOD ORDERABLES Final R esult Performing Organization Address [facility] de Phone Number EXTERNAL LAB * OTTR LAB RESULTS (MANUAL) (07/09/2019 4:06 AM EDT) External Estimated GFR 228.77 EXTERNAL LAB 07/09/2019 4:06 AM EDT Narrative EXTERNAL LAB - 07/09/2019 4:46 AM EDT Automated LAB Interface Historical Provider LAB BLOOD ORDERABLES Final R esult Performing Organization Address [facility] Co de Phone Number EXTERNAL LAB * OTTR LAB RESULTS (MANUAL) (07/08/2019 4:11 PM EDT) External Estimated GFR 228.77 EXTERNAL LAB 07/08/2019 4:11 PM EDT Narrative EXTERNAL LAB - 07/08/2019 4:39 PM EDT Automated LAB Interface us Historical Provider LAB BLOOD ORDERABLES Final R esult Performing Organization Address [facility]/ZIP Co de Phone Number EXTERNAL LAB * OTTR LAB RESULTS (MANUAL) (07/08/2019 4:11 AM EDT) External Estimated GFR 273.31 EXTERNAL LAB 07/08/2019 4:11 AM EDT Narrative EXTERNAL LAB - 07/08/2019 5:04 AM EDT Automated LAB Interface Historical Provider LAB BLOOD ORDERABLES Final R esult Performing Organization Address [facility] de Phone Number EXTERNAL LAB * OTTR LAB RESULTS (MANUAL) (07/07/2019 3:25 PM EDT) External Estimated GFR 324.78 EXTERNAL LAB 07/07/2019 3:25 PM EDT Narrative EXTERNAL LAB - 07/07/2019 4:30 PM EDT Automated LAB Interface Historical Provider LAB BLOOD ORDERABLES Final R esult Performing Organization Address [facility] de Phone Number EXTERNAL LAB * OTTR LAB RESULTS (MANUAL) (07/07/2019 2:04 AM EDT) Pathologist [facility] [place] External Estimated GFR 273.31 EXTERNAL LAB 07/07/2019 2:04 AM EDT Narrative EXTERNAL LAB - 07/07/2019 2:38 AM EDT Automated LAB Interface Historical Provider LAB BLOOD ORDERABLES Final R esult Performing Organization Address [facility] de Phone Number EXTERNAL LAB * OTTR LAB RESULTS (MANUAL) (07/06/2019 9:56 PM EDT) External Estimated GFR 302.17 EXTERNAL LAB 07/06/2019 9:56 PM EDT Narrative EXTERNAL LAB - 07/06/2019 10:35 PM EDT Automated LAB Interface Historical Provider LAB BLOOD ORDERABLES Final R esult Performing Organization Address [facility] de Phone Number EXTERNAL LAB * OTTR LAB RESULTS (MANUAL) (07/06/2019 2:08 AM EDT) External Estimated GFR 302.17 EXTERNAL LAB 07/06/2019 2:08 AM EDT Narrative EXTERNAL LAB - 07/06/2019 7:31 AM EDT Automated LAB Interface us Historical Provider LAB BLOOD ORDERABLES Final R esult Performing Organization Address [place]/[facility] de Phone Number EXTERNAL LAB * OTTR LAB RESULTS (MANUAL) (07/05/2019 8:40 PM EDT) External Estimated GFR 324.78 EXTERNAL LAB 07/05/2019 8:40 PM EDT Narrative EXTERNAL LAB - 07/05/2019 9:15 PM EDT Automated LAB Interface us Historical Provider LAB BLOOD ORDERABLES Final R esult Performing Organization Address [facility] de Phone Number EXTERNAL LAB * OTTR LAB RESULTS (MANUAL) (07/05/2019 12:25 PM EDT) External Estimated GFR 264.80 EXTERNAL LAB 07/05/2019 12:2 5 PM EDT Narrative EXTERNAL LAB - 07/05/2019 1:07 PM EDT Automated LAB Interface us Historical Provider LAB BLOOD ORDERABLES Final R esult Performing Organization Address [facility] de Phone Number EXTERNAL LAB * OTTR LAB RESULTS (MANUAL) (07/05/2019 2:44 AM EDT) External Estimated GFR 337.31 EXTERNAL LAB 07/05/2019 2:44 AM EDT Narrative EXTERNAL LAB - 07/05/2019 3:33 AM EDT Automated LAB Interface us Historical Provider LAB BLOOD ORDERABLES Final R esult Performing Organization Address [place]/[facility] Co de Phone Number EXTERNAL LAB * OTTR LAB RESULTS (MANUAL) (07/04/2019 4:08 PM EDT) External Estimated GFR 324.78 EXTERNAL LAB 07/04/2019 4:08 PM EDT Narrative EXTERNAL LAB - 07/04/2019 4:41 PM EDT Automated LAB Interface us Historical Provider LAB BLOOD ORDERABLES Final R esult Performing Organization Address [facility] de Phone Number EXTERNAL LAB * OTTR LAB RESULTS (MANUAL) (07/04/2019 3:07 AM EDT) Pathologist [facility] [place] External Estimated GFR 313.10 EXTERNAL LAB 07/04/2019 3:07 AM EDT Narrative EXTERNAL LAB - 07/04/2019 6:46 AM EDT Automated LAB Interface Historical Provider LAB BLOOD ORDERABLES Final R esult Performing Organization Address [facility] de Phone Number EXTERNAL LAB * OTTR LAB RESULTS (MANUAL) (07/03/2019 11:53 PM EDT) Pathologist [facility] [place] External Estimated GFR 302.17 EXTERNAL LAB 07/03/2019 11:5 3 PM EDT Narrative EXTERNAL LAB - 07/04/2019 12:30 AM EDT Automated LAB Interface Historical Provider LAB BLOOD ORDERABLES Final R esult Performing Organization Address [facility] de Phone Number EXTERNAL LAB * OTTR LAB RESULTS (MANUAL) (07/03/2019 4:42 PM EDT) Pathologist [facility] [place] External Estimated GFR 324.78 EXTERNAL LAB 07/03/2019 4:42 PM EDT Narrative EXTERNAL LAB - 07/03/2019 5:19 PM EDT Automated LAB Interface Historical Provider LAB BLOOD ORDERABLES Final R esult Performing Organization Address [facility] de Phone Number EXTERNAL LAB * OTTR LAB RESULTS (MANUAL) (07/03/2019 2:17 AM EDT) Pathologist [facility] [place] External Estimated GFR 482.47 EXTERNAL LAB 07/03/2019 2:17 AM EDT Narrative EXTERNAL LAB - 07/03/2019 3:02 AM EDT Automated LAB Interface Historical Provider LAB BLOOD ORDERABLES Final R esult Performing Organization Address [facility] Co de Phone Number EXTERNAL LAB * OTTR LAB RESULTS (MANUAL) (07/02/2019 2:31 AM EDT) External Estimated GFR 249.19 EXTERNAL LAB 07/02/2019 2:31 AM EDT Narrative EXTERNAL LAB - 07/02/2019 4:08 AM EDT Automated LAB Interface us Historical Provider LAB BLOOD ORDERABLES Final R esult Performing Organization Address [place]/[facility] Co de Phone Number EXTERNAL LAB * OTTR LAB RESULTS (MANUAL) (07/01/2019 3:10 PM EDT) External Estimated GFR 291.94 EXTERNAL LAB 07/01/2019 3:10 PM EDT Narrative EXTERNAL LAB - 07/01/2019 3:47 PM EDT Automated LAB Interface us Historical Provider LAB BLOOD ORDERABLES Final R esult Performing Organization Address [facility] Co de Phone Number EXTERNAL LAB * OTTR LAB RESULTS (MANUAL) (07/01/2019 1:57 AM EDT) External Estimated GFR 200.92 EXTERNAL LAB 07/01/2019 1:57 AM EDT Narrative EXTERNAL LAB - 07/01/2019 3:06 AM EDT Automated LAB Interface us Historical Provider LAB BLOOD ORDERABLES Final R esult Performing Organization Address [facility] Co de Phone Number EXTERNAL LAB * OTTR LAB RESULTS (MANUAL) (06/30/2019 3:28 PM EDT) External Estimated GFR 249.19 EXTERNAL LAB 06/30/2019 3:28 PM EDT Narrative EXTERNAL LAB - 06/30/2019 4:03 PM EDT Automated LAB Interface us Historical Provider LAB BLOOD ORDERABLES Final R esult Performing Organization Address [place]/[facility]/ZIP Co de Phone Number EXTERNAL LAB * OTTR LAB RESULTS (MANUAL) (06/30/2019 2:34 AM EDT) External Estimated GFR 302.17 EXTERNAL LAB 06/30/2019 2:34 AM EDT Narrative EXTERNAL LAB - 06/30/2019 3:20 AM EDT Automated LAB Interface Historical Provider LAB BLOOD ORDERABLES Final R esult Performing Organization Address [facility] de Phone Number EXTERNAL LAB * OTTR LAB RESULTS (MANUAL) (06/29/2019 1:34 PM EDT) Pathologist [facility] [place] External Estimated GFR 256.77 EXTERNAL LAB 06/29/2019 1:34 PM EDT Narrative EXTERNAL LAB - 06/29/2019 2:50 PM EDT Automated LAB Interface Historical Provider LAB BLOOD ORDERABLES Final R esult Performing Organization Address [facility] de Phone Number EXTERNAL LAB * OTTR LAB RESULTS (MANUAL) (06/29/2019 3:33 AM EDT) Pathologist [facility] [place] External Estimated GFR 256.77 EXTERNAL LAB 06/29/2019 3:33 AM EDT Narrative EXTERNAL LAB - 06/29/2019 4:27 AM EDT Automated LAB Interface [facility] Provider LAB BLOOD ORDERABLES Final R esult Performing Organization Address [facility] de Phone Number EXTERNAL LAB * OTTR LAB RESULTS (MANUAL) (06/28/2019 4:27 PM EDT) Pathologist [facility] [place] External Estimated GFR 235.22 EXTERNAL LAB 06/28/2019 4:27 PM EDT Narrative EXTERNAL LAB - 06/28/2019 4:58 PM EDT Automated LAB Interface Historical Provider LAB BLOOD ORDERABLES Final R esult Performing Organization Address [facility] Co de Phone Number EXTERNAL LAB * OTTR LAB RESULTS (MANUAL) (06/28/2019 3:42 AM EDT) Pathologist [facility] [place] External Estimated GFR 273.31 EXTERNAL LAB 06/28/2019 3:42 AM EDT Narrative EXTERNAL LAB - 06/28/2019 6:32 AM EDT Automated LAB Interface us Historical Provider LAB BLOOD ORDERABLES Final R esult Performing Organization Address [facility] de Phone Number EXTERNAL LAB * OTTR LAB RESULTS (MANUAL) (06/27/2019 4:13 PM EDT) External Estimated GFR 222.64 EXTERNAL LAB 06/27/2019 4:13 PM EDT Narrative EXTERNAL LAB - 06/27/2019 4:50 PM EDT Automated LAB Interface us Historical Provider LAB BLOOD ORDERABLES Final R esult Performing Organization Address [facility] de Phone Number EXTERNAL LAB * OTTR LAB RESULTS (MANUAL) (06/27/2019 9:47 AM EDT) External Estimated GFR 216.81 EXTERNAL LAB 06/27/2019 9:47 AM EDT Narrative EXTERNAL LAB - 06/27/2019 10:25 AM EDT Automated LAB Interface us Historical Provider LAB BLOOD ORDERABLES Final R esult Performing Organization Address [facility] de Phone Number EXTERNAL LAB * OTTR LAB RESULTS (MANUAL) (06/27/2019 4:04 AM EDT) External Estimated GFR 222.64 EXTERNAL LAB 06/27/2019 4:04 AM EDT Narrative EXTERNAL LAB - 06/27/2019 4:55 AM EDT Automated LAB Interface us Historical Provider LAB BLOOD ORDERABLES Final R esult Performing Organization Address [place]/[facility]/ZIP Co de Phone Number EXTERNAL LAB * OTTR LAB RESULTS (MANUAL) (06/26/2019 5:02 PM EDT) External Estimated GFR 211.26 EXTERNAL LAB 06/26/2019 5:02 PM EDT Narrative EXTERNAL LAB - 06/26/2019 5:45 PM EDT Automated LAB Interface Historical Provider LAB BLOOD ORDERABLES Final R esult Performing Organization Address [facility] de Phone Number EXTERNAL LAB * OTTR LAB RESULTS (MANUAL) (06/26/2019 11:00 AM EDT) External Estimated GFR 211.26 EXTERNAL LAB 06/26/2019 11:0 0 AM EDT Narrative EXTERNAL LAB - 06/26/2019 12:05 PM EDT Automated LAB Interface Historical Provider LAB BLOOD ORDERABLES Final R esult Performing Organization Address [facility] de Phone Number EXTERNAL LAB * OTTR LAB RESULTS (MANUAL) (06/26/2019 3:58 AM EDT) Pathologist [facility] [place] External Estimated GFR 228.77 EXTERNAL LAB 06/26/2019 3:58 AM EDT Narrative EXTERNAL LAB - 06/26/2019 5:44 AM EDT Automated LAB Interface Historical Provider LAB BLOOD ORDERABLES Final R esult Performing Organization Address [facility] de Phone Number EXTERNAL LAB * OTTR LAB RESULTS (MANUAL) (06/25/2019 3:46 PM EDT) Pathologist [facility] [place] External Estimated GFR 222.64 EXTERNAL LAB 06/25/2019 3:46 PM EDT Narrative EXTERNAL LAB - 06/25/2019 4:23 PM EDT Automated LAB Interface Historical Provider LAB BLOOD ORDERABLES Final R esult Performing Organization Address [facility] de Phone Number EXTERNAL LAB * OTTR LAB RESULTS (MANUAL) (06/25/2019 4:04 AM EDT) External Estimated GFR 235.22 EXTERNAL LAB 06/25/2019 4:0 4 AM EDT Narrative EXTERNAL LAB - 06/25/2019 4:57 AM EDT Automated LAB Interface Historical Provider LAB BLOOD ORDERABLES Final R esult Performing Organization Address [facility] de Phone Number EXTERNAL LAB * OTTR LAB RESULTS (MANUAL) (06/23/2019 11:46 AM EDT) External Estimated GFR 133.45 EXTERNAL LAB 06/23/2019 11:4 6 AM EDT Narrative EXTERNAL LAB - 06/23/2019 1:33 PM EDT Automated LAB Interface us Historical Provider LAB BLOOD ORDERABLES Final R esult Performing Organization Address [facility] de Phone Number EXTERNAL LAB * OTTR LAB RESULTS (MANUAL) (06/23/2019 2:22 AM EDT) External Estimated GFR 143.28 EXTERNAL LAB 06/23/2019 2:22 AM EDT Narrative EXTERNAL LAB - 06/23/2019 6:36 AM EDT Automated LAB Interface us Historical Provider LAB BLOOD ORDERABLES Final R esult Performing Organization Address [facility] de Phone Number EXTERNAL LAB * OTTR LAB RESULTS (MANUAL) (06/21/2019 2:39 AM EDT) External Estimated GFR 160.82 EXTERNAL LAB 06/21/2019 2:39 AM EDT Narrative EXTERNAL LAB - 06/21/2019 3:27 AM EDT Automated LAB Interface us Historical Provider LAB BLOOD ORDERABLES Final R esult Performing Organization Address [facility] de Phone Number EXTERNAL LAB * OTTR LAB RESULTS (MANUAL) (06/20/2019 2:34 PM EDT) External Estimated GFR 154.55 EXTERNAL LAB 06/20/2019 2:34 PM EDT Narrative EXTERNAL LAB - 06/20/2019 3:11 PM EDT Automated LAB Interface us Historical Provider LAB BLOOD ORDERABLES Final R esult Performing Organization Address [facility] Co de Phone Number EXTERNAL LAB * [...] ORDERABLES Final R esult Performing Organization Address City/[facility]/ZIP Co de Phone Number EXTERNAL LAB * OTTR LAB RESULTS (MANUAL) (06/19/2019 9:09 PM EDT) Pathologist [facility] [place] External Estimated GFR 191.49 EXTERNAL LAB 06/19/2019 9:09 PM EDT Narrative EXTERNAL LAB - 06/19/2019 11:38 PM EDT Automated LAB Interface Historical Provider LAB BLOOD ORDERABLES Final R esult Performing Organization Address [facility] Co de Phone Number EXTERNAL LAB * [...] R esult Performing Organization Address [facility] de Phone Number EXTERNAL LAB * OTTR LAB RESULTS (MANUAL) (06/18/2019 3:40 PM EDT) External Estimated GFR 104.23 EXTERNAL LAB 06/18/2019 3:40 PM EDT Narrative EXTERNAL LAB - 06/18/2019 5:38 PM EDT Automated LAB Interface Historical Provider LAB BLOOD ORDERABLES Final R esult Performing Organization Address [facility] de Phone Number EXTERNAL LAB * OTTR LAB RESULTS (MANUAL) (06/18/2019 4:36 AM EDT) External Estimated GFR 55.64 EXTERNAL LAB 06/18/2019 4:36 AM EDT Narrative EXTERNAL LAB - 06/24/2019 5:14 PM EDT Automated LAB Interface Historical Provider LAB BLOOD ORDERABLES Final R esult Performing Organization Address [facility] de Phone Number EXTERNAL LAB * OTTR LAB RESULTS (MANUAL) (06/17/2019 1:44 AM EDT) External Estimated GFR 117.17 EXTERNAL LAB 06/17/2019 1:44 AM EDT Narrative EXTERNAL LAB - 06/17/2019 6:27 AM EDT Automated LAB Interface Historical Provider LAB BLOOD ORDERABLES Final R esult Performing Organization Address [place]/[facility]/ZIP Co de Phone Number EXTERNAL LAB * OTTR LAB RESULTS (MANUAL) (06/16/2019 5:54 PM EDT) External Estimated GFR 122.82 EXTERNAL LAB 06/16/2019 5:54 PM EDT Narrative EXTERNAL LAB - 06/16/2019 6:31 PM EDT Automated LAB Interface Historical Provider LAB BLOOD ORDERABLES Final R esult Performing Organization Address [facility] de Phone Number EXTERNAL LAB * OTTR LAB RESULTS (MANUAL) (06/16/2019 11:39 AM EDT) External Estimated GFR 131.19 EXTERNAL LAB 06/16/2019 11:3 9 AM EDT Narrative EXTERNAL LAB - 06/16/2019 12:17 PM EDT Automated LAB Interface Historical Provider LAB BLOOD ORDERABLES Final R esult Performing Organization Address [facility] de Phone Number EXTERNAL LAB * OTTR LAB RESULTS (MANUAL) (06/15/2019 11:52 AM EDT) External Estimated GFR 131.19 EXTERNAL LAB 06/15/2019 11:5 2 AM EDT Narrative EXTERNAL LAB - 06/15/2019 12:34 PM EDT Automated LAB Interface Historical Provider LAB BLOOD ORDERABLES Final R esult Performing Organization Address [facility] de Phone Number EXTERNAL LAB * OTTR LAB RESULTS (MANUAL) (06/15/2019 3:57 AM EDT) External Estimated GFR 138.20 EXTERNAL LAB 06/15/2019 3:57 AM EDT Narrative EXTERNAL LAB - 06/15/2019 6:04 AM EDT Automated LAB Interface Historical Provider LAB BLOOD ORDERABLES Final R esult Performing Organization Address [facility] de Phone Number EXTERNAL LAB * OTTR LAB RESULTS (MANUAL) (06/15/2019 12:00 AM EDT) External Estimated GFR 138.20 EXTERNAL LAB 06/15/2019 Narrative EXTERNAL LAB - 06/15/2019 12:47 AM EDT Automated LAB Interface Historical Provider LAB BLOOD ORDERABLES Final R esult Performing Organization Address [place]/[facility] de Phone Number EXTERNAL LAB * OTTR LAB RESULTS (MANUAL) (06/14/2019 3:50 PM EDT) External Estimated GFR 122.82 EXTERNAL LAB 06/14/2019 3:50 PM EDT Narrative EXTERNAL LAB - 06/14/2019 4:19 PM EDT Automated LAB Interface us Historical Provider LAB BLOOD ORDERABLES Final R esult Performing Organization Address [facility] de Phone Number EXTERNAL LAB * OTTR LAB RESULTS (MANUAL) (06/14/2019 3:51 AM EDT) External Estimated GFR 126.88 EXTERNAL LAB 06/14/2019 3:51 AM EDT Narrative EXTERNAL LAB - 06/14/2019 4:53 AM EDT Automated LAB Interface us Historical Provider LAB BLOOD ORDERABLES Final R esult Performing Organization Address [facility] de Phone Number EXTERNAL LAB * OTTR LAB RESULTS (MANUAL) (06/13/2019 10:02 PM EDT) External Estimated GFR 118.99 EXTERNAL LAB 06/13/2019 10:0 2 PM EDT Narrative EXTERNAL LAB - 06/13/2019 10:47 PM EDT Automated LAB Interface us Historical Provider LAB BLOOD ORDERABLES Final R esult Performing Organization Address [facility] de Phone Number EXTERNAL LAB * OTTR LAB RESULTS (MANUAL) (06/13/2019 6:29 PM EDT) External Estimated GFR 117.17 EXTERNAL LAB 06/13/2019 6:29 PM EDT Narrative EXTERNAL LAB - 06/13/2019 7:10 PM EDT Automated LAB Interface us Historical Provider LAB BLOOD ORDERABLES Final R esult Performing Organization Address [facility] de Phone Number EXTERNAL LAB * OTTR LAB RESULTS (MANUAL) (06/13/2019 11:44 AM EDT) External Estimated GFR 107.21 EXTERNAL LAB 06/13/2019 11:4 4 AM EDT Narrative EXTERNAL LAB - 06/13/2019 12:32 PM EDT Automated LAB Interface us Historical Provider LAB BLOOD ORDERABLES Final R esult Performing Organization Address [place]/[facility]/ZIP Co de Phone Number EXTERNAL LAB * OTTR LAB RESULTS (MANUAL) (06/13/2019 2:14 AM EDT) External Estimated GFR 115.39 EXTERNAL LAB 06/13/2019 2:14 AM EDT Narrative EXTERNAL LAB - 06/13/2019 7:22 AM EDT Automated LAB Interface Historical Provider LAB BLOOD ORDERABLES Final R esult Performing Organization Address [facility]/ZIP Co de Phone Number EXTERNAL LAB * OTTR LAB RESULTS (MANUAL) (06/12/2019 6:45 PM EDT) External Estimated GFR 145.95 EXTERNAL LAB 06/12/2019 6:45 PM EDT Narrative EXTERNAL LAB - 06/12/2019 7:17 PM EDT Automated LAB Interface Historical Provider LAB BLOOD ORDERABLES Final R esult Performing Organization Address [facility] Co de Phone Number EXTERNAL LAB * OTTR LAB RESULTS (MANUAL) (06/12/2019 9:27 AM EDT) External Estimated GFR 120.88 EXTERNAL LAB 06/12/2019 9:27 AM EDT Narrative EXTERNAL LAB - 06/12/2019 12:55 PM EDT Automated LAB Interface us Historical Provider LAB BLOOD ORDERABLES Final R esult EXTERNAL LAB * OTTR LAB RESULTS (MANUAL) (06/12/2019 3:01 AM EDT) External Estimated GFR 104.23 EXTERNAL LAB 06/12/2019 3:01 AM EDT Narrative EXTERNAL LAB - 06/12/2019 12:55 PM EDT Automated LAB Interface Historical Provider LAB BLOOD ORDERABLES Final R esult Performing Organization Address [facility] de Phone Number EXTERNAL LAB * OTTR LAB RESULTS (MANUAL) (06/11/2019 2:56 AM EDT) External Estimated GFR 118.99 EXTERNAL LAB 06/11/2019 2:56 AM EDT Narrative EXTERNAL LAB - 06/11/2019 4:06 AM EDT Automated LAB Interface us Historical Provider LAB BLOOD ORDERABLES Final R esult Performing Organization Address [facility] de Phone Number EXTERNAL LAB * OTTR LAB RESULTS (MANUAL) (06/10/2019 2:52 AM EDT) External Estimated GFR 115.39 EXTERNAL LAB 06/10/2019 2:52 AM EDT Narrative EXTERNAL LAB - 06/10/2019 6:50 AM EDT Automated LAB Interface us Historical Provider LAB BLOOD ORDERABLES Final R esult Performing Organization Address [facility] de Phone Number EXTERNAL LAB * OTTR LAB RESULTS (MANUAL) (06/09/2019 12:12 PM EDT) External Estimated GFR 93.73 EXTERNAL LAB 06/09/2019 12:1 2 PM EDT Narrative EXTERNAL LAB - 06/09/2019 1:36 PM EDT Automated LAB Interface us Historical Provider LAB BLOOD ORDERABLES Final R esult Performing Organization Address [facility] Co de Phone Number EXTERNAL LAB * OTTR LAB RESULTS (MANUAL) (06/09/2019 2:19 AM EDT) External Estimated GFR 98.72 EXTERNAL LAB 06/09/2019 2:19 AM EDT Narrative EXTERNAL LAB - 06/09/2019 6:19 AM EDT Automated LAB Interface us Historical Provider LAB BLOOD ORDERABLES Final R esult Performing Organization Address City/[facility]/ZIP Co de Phone Number EXTERNAL LAB * OTTR LAB RESULTS (MANUAL) (06/08/2019 3:20 PM EDT) External Estimated GFR 102.80 EXTERNAL LAB 06/08/2019 3:20 PM EDT Narrative EXTERNAL LAB - 06/08/2019 4:06 PM EDT Automated LAB Interface us Historical Provider LAB BLOOD ORDERABLES Final R esult Performing Organization Address [facility] Co de Phone Number EXTERNAL LAB * OTTR LAB RESULTS (MANUAL) (06/08/2019 12:35 PM EDT) External Estimated GFR 105.70 EXTERNAL LAB 06/08/2019 12:3 5 PM EDT Narrative EXTERNAL LAB - 06/08/2019 1:51 PM EDT Automated LAB Interface us Historical Provider LAB BLOOD ORDERABLES Final R esult Performing Organization Address [facility] Co de Phone Number EXTERNAL LAB * OTTR LAB RESULTS (MANUAL) (06/08/2019 10:28 AM EDT) External Estimated GFR 122.82 EXTERNAL LAB 06/08/2019 10:2 8 AM EDT Narrative EXTERNAL LAB - 06/08/2019 2:31 PM EDT Automated LAB Interface us Historical Provider LAB BLOOD ORDERABLES Final R esult Performing Organization Address [facility]/ZIP Co de Phone Number EXTERNAL LAB * OTTR LAB RESULTS (MANUAL) (06/08/2019 8:04 AM EDT) External Estimated GFR 93.73 EXTERNAL LAB 06/08/2019 8:04 AM EDT Narrative EXTERNAL LAB - 06/08/2019 8:51 AM EDT Automated LAB Interface us Historical Provider LAB BLOOD ORDERABLES Final R esult Performing Organization Address [facility] de Phone Number EXTERNAL LAB * OTTR LAB RESULTS (MANUAL) (06/08/2019 6:23 AM EDT) External Estimated GFR 92.56 EXTERNAL LAB 06/08/2019 6:23 AM EDT Narrative EXTERNAL LAB - 06/08/2019 7:15 AM EDT Automated LAB Interface Historical Provider LAB BLOOD ORDERABLES Final R esult Performing Organization Address [facility] de Phone Number EXTERNAL LAB * OTTR LAB RESULTS (MANUAL) (06/08/2019 2:56 AM EDT) External Estimated GFR 104.23 EXTERNAL LAB 06/08/2019 2:56 AM EDT Narrative EXTERNAL LAB - 06/08/2019 3:42 AM EDT Automated LAB Interface Historical Provider LAB BLOOD ORDERABLES Final R esult Performing Organization Address [facility] de Phone Number EXTERNAL LAB * OTTR LAB RESULTS (MANUAL) (06/07/2019 10:55 PM EDT) Pathologist [facility] [place] External Estimated GFR 97.43 EXTERNAL LAB 06/07/2019 10:5 5 PM EDT Narrative EXTERNAL LAB - 06/08/2019 12:35 AM EDT Automated LAB Interface Historical Provider LAB BLOOD ORDERABLES Final R esult Performing Organization Address [facility] de Phone Number EXTERNAL LAB * OTTR LAB RESULTS (MANUAL) (06/07/2019 5:25 PM EDT) External Estimated GFR 76.92 EXTERNAL LAB 06/07/2019 5:25 PM EDT Narrative EXTERNAL LAB - 06/07/2019 6:51 PM EDT Automated LAB Interface Historical Provider LAB BLOOD ORDERABLES Final R esult Performing Organization Address [facility] Co de Phone Number EXTERNAL LAB * OTTR LAB RESULTS (MANUAL) (06/07/2019 12:22 PM EDT) External Estimated GFR 102.80 EXTERNAL LAB 06/07/2019 12:2 2 PM EDT Narrative EXTERNAL LAB - 06/07/2019 2:13 PM EDT Automated LAB Interface Historical Provider LAB BLOOD ORDERABLES Final R esult Performing Organization Address [facility] de Phone Number EXTERNAL LAB * OTTR LAB RESULTS (MANUAL) (06/07/2019 4:53 AM EDT) External Estimated GFR 96.17 EXTERNAL LAB 06/07/2019 4:53 AM EDT Narrative EXTERNAL LAB - 06/07/2019 5:48 AM EDT Automated LAB Interface Historical Provider LAB BLOOD ORDERABLES Final R esult Performing Organization Address [facility] de Phone Number EXTERNAL LAB * OTTR LAB RESULTS (MANUAL) (06/07/2019 3:04 AM EDT) External Estimated GFR 167.59 EXTERNAL LAB 06/07/2019 3:04 AM EDT Narrative EXTERNAL LAB - 06/07/2019 6:39 AM EDT Automated LAB Interface Historical Provider LAB BLOOD ORDERABLES Final R esult Performing Organization Address [facility] de Phone Number EXTERNAL LAB * OTTR LAB RESULTS (MANUAL) (06/06/2019 2:22 PM EDT) External Estimated GFR 88.12 EXTERNAL LAB 06/06/2019 2:22 PM EDT Narrative EXTERNAL LAB - 06/06/2019 3:13 PM EDT Automated LAB Interface Historical Provider LAB BLOOD ORDERABLES Final R esult Performing Organization Address [facility] Co de Phone Number EXTERNAL LAB * OTTR LAB RESULTS (MANUAL) (06/06/2019 1:30 AM EDT) External Estimated GFR 110.35 EXTERNAL LAB 06/06/2019 1:30 AM EDT Narrative EXTERNAL LAB - 06/06/2019 2:16 AM EDT Automated LAB Interface Historical Provider LAB BLOOD ORDERABLES Final R esult Performing Organization Address [facility] de Phone Number EXTERNAL LAB * OTTR LAB RESULTS (MANUAL) (06/05/2019 10:12 AM EDT) External Estimated GFR 100.05 EXTERNAL LAB 06/05/2019 10:1 2 AM EDT Narrative EXTERNAL LAB - 06/05/2019 11:27 AM EDT Automated LAB Interface Historical Provider LAB BLOOD ORDERABLES Final R esult Performing Organization Address [facility] de Phone Number EXTERNAL LAB * OTTR LAB RESULTS (MANUAL) (05/17/2019 2:05 AM EDT) Pathologist [facility] External Estimated GFR 105.70 EXTERNAL LAB 05/17/2019 2:05 AM EDT Narrative EXTERNAL LAB - 05/17/2019 3:01 AM EDT Automated LAB Interface Historical Provider LAB BLOOD ORDERABLES Final R esult Performing Organization Address [facility] de Phone Number EXTERNAL LAB * OTTR LAB RESULTS (MANUAL) (05/16/2019 9:46 AM EDT) External Estimated GFR 80.35 EXTERNAL LAB 05/16/2019 9:46 AM EDT Narrative EXTERNAL LAB - 05/16/2019 10:25 AM EDT Automated LAB Interface Historical Provider LAB BLOOD ORDERABLES Final R esult Performing Organization Address [facility] Co de Phone Number EXTERNAL LAB * [...] 05/16/2019 2:12 AM EDT Automated LAB Interface us Historical Provider LAB BLOOD ORDERABLES Final R esult EXTERNAL LAB * OTTR LAB RESULTS (MANUAL) (05/15/2019 7:23 PM EDT) External Estimated GFR 75.31 EXTERNAL LAB 05/15/2019 7:23 PM EDT Narrative EXTERNAL LAB - 05/15/2019 8:50 PM EDT Automated LAB Interface Historical Provider LAB BLOOD ORDERABLES Final R esult EXTERNAL LAB documented in this encounter Visit Diagnoses Not on filedocumented in this encounter Additional Health Concerns Infection Onset 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 MDRO Escalation Plan Comment:MDRO escalation plan through 05/06/24 04/15/2024 04/15/2024 04/20/2024 5:[address] documented as of this encounter Care Teams Skate Boarder Relationship Specialty Start Date End Date Herberth Perez MD [address] [place] [address] PCP - General 07/17/20 Katrin Oviedo, RN [facility] [address] [place] [address] VAD Coordinator Cardiology 08/06/20 10/21/24 Zaida Lafleur APRN [address] [place] [address] Nurse Practitioner Advanced Heart Failure and Transplant Cardiology 08/06/20 06/11/23 Gracia Petersen APRN [address] [place] [address] Nurse Practitioner Internal Medicine 08/06/20 Yunior Solorzano MD [address] [place] [address] Consulting Physician Gastroenterology 07/18/22 Ross Baez DO [address] [address] Surgeon Cardiothoracic Surgery 07/18/22 Edith Aleman, MEDICAL TECHNOLOGIST None VAD Coordinator 10/14/24 documented as of this encounter
--- OUTSIDE RECORDS SUMMARY | 2025-02-19 15:52 | XMS_ITS | Encounter Summary ---
Author Organization [employer] ([place], [place], [place], [place], [place]) Address [address] [place] [address] Care Team Providers Care Motorcycle Tester Name Role Phone Unavailable Primary Care Provider Unavailabl e Encounter Details Date Type Department Care Team (Late st Contact Info) Description 2019 Transcribed Document [facility] [place] [facility] [place] [address] ProviderMg MD [facility] [place] [address] Social History Tobacco Use Types Packs/Day Years Used Date Smoking Tobacco: Never Assessed Sex and Gender Information Value Date Recorded Sex Assigned at Not on file Legal Sex Male 1:09 PM CDT Gender Identity Not on file Sexual Orientation Not on file documented as of this encounter Miscellaneous Notes * Cerner Conversion Note - Historical ProviderMD - 2019 8:38 PM HOBBER Stroke/Warfarin Instructions Entered On: 2019 20:38 EST [...]
--- OUTSIDE RECORDS SUMMARY | 2025-02-19 15:52 | XMS_ITS | Referral Summary ---
Author Organization [employer] ([place], [place], [place], [place], [place]) Address [address] [place] [address] Care Team Providers Care Farmworker Brooder Farm Name Role Phone Unavailable Primary Care [...]
--- OUTSIDE RECORDS SUMMARY | 2025-02-19 15:52 | XMS_ITS | Encounter Summary ---
Author Organization [employer] ([place], [place], [place], [place], [place]) Address [address] [place] [address] Care Team Providers Care Leaf Sorter Name Role Phone Unavailable Primary Care Provider Unavailabl e Encounter Details Date Type Department Care Team (Late st Contact Info) Description 2019 Transcribed Document [facility] [place] [facility] [place] [address] ProviderMg MD [facility] [place] [address] Social History Tobacco Use Types Packs/Day Years Used Date Smoking Tobacco: Never Assessed Sex and Gender Information Value Date Recorded Sex Assigned at Not on file Legal Sex Male 1:09 PM CDT Gender Identity Not on file Sexual Orientation Not on file documented as of this encounter Miscellaneous Notes * Cerner Conversion Note - Mg Ritchie MD - 2019 8:38 PM 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 ? Change your dressing as told by [...] contrast dye from your body. ??? Take sjvh-orh-xdgrkha and prescription medicines only as told by [...] 09/08/2005 Document Revised: 01/25/2017 Document Reviewed: 01/25/2017 [employer]inter[employer] Interactive Patient Education ? 2019 [employer] Heart-Healthy Eating Plan Many factors influence [...] foods can I eat? Grains Breads, including Tanzanian, white, raymundo, wheat, raisin, rye, oatmeal, and South African. Tortillas that are neither fried nor made with lard or trans fat. Low-fat rolls, including hotdog and hamburger buns and Kuwaiti muffins. Biscuits. Muffins. Waffles. Pancakes. Light popcorn. Whole-grain cereals. Flatbread. Rison toast. Pretzels. Breadsticks. Rusks. Low-fat snacks and [...] cooking, baking, salads, and as spreads. Other [place] powder. Coffee and tea. All seasonings [...] cheese. Whole milk cheeses, including blue (ana), [place] Jl, Brie, Temo, Bruneian, Havarti, Tuvaluan, cheddar, Camembert, and Ilfeld. Whole or 2% milk that is liquid, [...] that has suet, meat fat, or shortening. [place] butter, hydrogenated oils, palm oil, coconut [...] 11/29/2008 Document Revised: 09/09/2016 Document Reviewed: 08/14/2014 [employer] Interactive Patient Education ? 2019 [employer] Low-Sodium Eating Plan Sodium, which is [...] (monosodium glutamate). MSG is sometimes added to Bahamian food, bouillon, and some canned foods. What [...] such as ricotta cheese, fresh mozzarella, or Tuvaluan cheese Low-sodium or reduced-sodium cheese. Cream cheese. [...] Vegetables Sauerkraut, pickled vegetables, and relishes. Olives. Tanzanian fries. Onion rings. Regular canned vegetables (not [...] salad dressings. Salsa. Potato and tortilla chips. [place] chips and puffs. Salted popcorn and pretzels. [...] 08/12/2002 Document Revised: 02/13/2017 Document Reviewed: 02/13/2017 [employer] Interactive Patient Education ? 2019 [employer]. Heart-Healthy Eating Plan Heart-healthy meal planning includes: [...] foods can I eat? Grains Breads, including Tanzanian, white, raymundo, wheat, raisin, rye, oatmeal, and South African. Tortillas that are neither fried nor made with lard or trans fat. Low-fat rolls, including hotdog and hamburger buns and Kuwaiti muffins. Biscuits. Muffins. Waffles. Pancakes. Light popcorn. Whole-grain cereals. Flatbread. Rison toast. Pretzels. Breadsticks. Rusks. Low-fat snacks. Low-fat [...] cooking, baking, salads, and as spreads. Other [place] powder. Coffee and tea. All seasonings [...] cottage cheese. Whole-milk cheeses, including blue (ana), [place] Jl, Brie, Temo, Bruneian, Havarti, Tuvaluan, cheddar, Camembert, and Ilfeld. Whole or 2% milk that is liquid, [...] that has suet, meat fat, or shortening. [place] butter, hydrogenated oils, palm oil, coconut [...] 08/21/2012 Document Revised: 07/28/2016 Document Reviewed: 08/14/2014 [employer] Interactive Patient Education ? 2019 [employer] Cardiovascular Living With Heart Failure Heart [...] failure, and improving your symptoms. ??? Take aavz-mas-dlvquvs and prescription medicines only as told by [...] provider about groups near you. ??? The [place] Heart Association: www.heart.org Contact a health care [...] 07/05/2017 Document Revised: 07/05/2017 Document Reviewed: 07/05/2017 [employer] Interactive Patient Education ? 2019 [employer] Heart Failure Heart failure is a [...] these instructions at home: Medicines ??? Take ojgc-lpj-xyqvctu and prescription medicines only as told by [...] Interactive Patient Education ? 2017 [employer] Inc. documented in this encounter Plan of Treatment Not on file documented as of this encounter Visit Diagnoses Not on filedocumented in this encounter
--- OUTSIDE RECORDS SUMMARY | 2025-02-19 15:52 | XMS_ITS | Encounter Summary ---
Author Organization [employer] ([place], [place], [place], [place], [place]) Address [address] [place] [address] Care Team Providers Care Principal Law Clerk Name Role Phone Unavailable Primary Care Provider Unavailabl e Encounter Details Date Type Department Care Team (Late st Contact Info) Description 2019 Transcribed Document [facility] [place] [facility] [place] [address] ProviderMg MD [facility] [place] [address] Social History Tobacco Use Types Packs/Day Years Used Date Smoking Tobacco: Never Assessed Sex and Gender Information Value Date Recorded Sex Assigned at Not on file Legal Sex Male 1:09 PM CDT Gender Identity Not on file Sexual Orientation Not on file documented as of this encounter Miscellaneous Notes * Cerner Conversion Note - Mg Ritchie MD - 2019 8:53 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 [place] [address]- Business (1) Medications What How Much When Instructions Next Dose bumetanide (bumetanide 2 mg oral tablet) 1 Tablet(s) Oral Two Times A Day Pickup at [facility] cyclobenzaprine (cyclobenzaprine 10 mg oral tablet) 0.5 Tablet(s) Oral Two Times A Day as needed for Cramping Pickup at [place] [address] magnesium oxide (magnesium oxide 400 mg (240 mg elemental magnesium) oral tablet) 1 Tablet(s) Oral Two Times A Day Pickup at [place] [address] metOLazone (metOLazone 10 mg oral tablet) 1 Tablet(s) Oral Every Day Pickup at [place] [address] dofetilide (Tikosyn 125 mcg oral capsule) 3 Capsule(s) Oral Two Times A Day Pickup at [place] [address] spironolactone (Aldactone 25 mg oral tablet) 2 Tablet(s) Oral Every Day Pickup at [place] [address] carvedilol (carvedilol 3.125 mg oral tablet) cetirizine [...] Oral Two Times A Day Pharmacy Information [facility]: [address] [place], [place] [phone] Take your medications faithfully. Do NOT skip [...] and water are not available, use hand director of oncology. ? Change your dressing as told by [...] contrast dye from your body. ??? Take ivvb-plw-jgothvz and prescription medicines only as told by [...] 09/08/2005 Document Revised: 01/25/2017 Document Reviewed: 01/25/2017 [employer] Interactive Patient Education ?? 2019 [employer] Heart-Healthy Eating Plan Many factors influence [...] foods can I eat? Grains Breads, including Qatari, white, raymundo, wheat, raisin, rye, oatmeal, and Mongolian. Tortillas that are neither fried nor made with lard or trans fat. Low-fat rolls, including hotdog and hamburger buns and Croatian muffins. Biscuits. Muffins. Waffles. Pancakes. Light popcorn. Whole-grain cereals. Flatbread. [place]y toast. Pretzels. Breadsticks. Rusks. Low-fat snacks and [...] cooking, baking, salads, and as spreads. Other [place] powder. Coffee and tea. All seasonings and [...] cheese. Whole milk cheeses, including blue (ana), [place] Jl, Brie, Temo, Micronesian, Havarti, Cuban, cheddar, Camembert, and [place]. Whole or 2% milk that is [...] that has suet, meat fat, or shortening. [place] butter, hydrogenated oils, palm oil, coconut oil, [...] 11/29/2008 Document Revised: 09/09/2016 Document Reviewed: 08/14/2014 Marvel Interactive Patient Education ?? 2019 [employer]. Living With Heart Failure Heart failure [...] failure, and improving your symptoms. ??? Take rzgr-wjk-afzsxcj and prescription medicines only as told by [...] provider about groups near you. ??? The [place]ron[place] Heart Association: www.heart.org Contact a health care [...] 07/05/2017 Elsevier Interactive Patient Education ?? 2019 [employer]. Heart Failure Heart failure is a [...] these instructions at home: Medicines ??? Take nijr-vzw-glvizrj and prescription medicines only as told by [...] 02/20/2006 Document Revised: 10/25/2016 Document Reviewed: 09/14/2016 Marvel Interactive Patient Education ?? 2017 [employer]. Low-Sodium Eating Plan Sodium, which is an [...] (monosodium glutamate). MSG is sometimes added to Welsh food, bouillon, and some canned foods. What [...] such as ricotta cheese, fresh mozzarella, or Cuban cheese Low-sodium or reduced-sodium cheese. Cream cheese. [...] Vegetables Sauerkraut, pickled vegetables, and relishes. Olives. Qatari fries. Onion rings. Regular canned vegetables (not [...] salad dressings. Salsa. Potato and tortilla chips. [place] chips and puffs. Salted popcorn and pretzels. [...] 08/12/2002 Document Revised: 02/13/2017 Document Reviewed: 02/13/2017 Marvel Interactive Patient Education ?? 2019 [employer]. Heart-Healthy Eating Plan Heart-healthy meal planning includes: [...] foods can I eat? Grains Breads, including Qatari, white, raymundo, wheat, raisin, rye, oatmeal, and Mongolian. Tortillas that are neither fried nor made with lard or trans fat. Low-fat rolls, including hotdog and hamburger buns and Croatian muffins. Biscuits. Muffins. Waffles. Pancakes. Light popcorn. [...] cooking, baking, salads, and as spreads. Other [place] powder. Coffee and tea. All seasonings and [...] cottage cheese. Whole-milk cheeses, including blue (ana), [place] Jl, Brie, Temo, Micronesian, Havarti, Cuban, cheddar, Camembert, and [place]. Whole or 2% milk that is [...] that has suet, meat fat, or shortening. [place] butter, hydrogenated oils, palm oil, coconut oil, [...] 08/21/2012 Document Revised: 07/28/2016 Document Reviewed: 08/14/2014 Marvel Interactive Patient Education ?? 2019 [employer]. spironolactone (spir ON oh LAK tone) Aldactone, CaroSpir What is the most important information I should know about spironolactone? You should not use spironolactone if you have kidney problems, high levels of potassium in your blood, Randolph's disease, if you are unable to urinate, [...] to it, or if you have: ?? Pittsburgh's disease (an adrenal gland disorder); ?? high [...] may report side effects to FDA at 3-329-LQO-0879. What other drugs will affect spironolactone? Taking [...] may interact with spironolactone, including prescription and xnly-oyd-xxtzgws medicines, vitamins, and herbal products. Not all [...] to ensure that the information provided by [employer]. ('[employer]') is accurate, up-to-date, and complete, but no guarantee is made to that effect. Drug information contained herein may be time sensitive. [employer] information has been compiled for use by healthcare practitioners and consumers in the [place] and therefore [employer] does not warrant that uses outside of the [place] are appropriate, unless specifically indicated otherwise. [employer]'s drug information does not endorse drugs, diagnose patients or recommend therapy. [employer] drug information is an informational resource designed [...] effective or appropriate for any given patient. [employer] does not assume any responsibility for any aspect of healthcare administered with the aid of information [employer] provides. The information contained herein is not intended to cover all possible uses, directions, precautions, warnings, drug interactions, allergic reactions, or adverse effects. If you have questions about the drugs you are taking, check with your doctor, nurse or pharmacist. Copyright 8642-8116 [employer]. Version: 10.. Revision Date: 03/02/2017. metolazone (me [...] this medicine. Follow your doctor's instructions carefully. documented in this encounter Plan of Treatment Not on file documented as of this encounter Visit Diagnoses Not on filedocumented in this encounter
--- OUTSIDE RECORDS SUMMARY | 2025-02-19 15:52 | XMS_ITS | Encounter Summary ---
Author Organization [employer] ([place], [place], [place], [place], [place]) Address [address] [place] [address] Care Team Providers Care Molecular Modeler Name Role Phone Unavailable Primary Care Provider Unavailabl e Encounter Details Date Type Department Care Team (Late st Contact Info) Description 2019 Transcribed Document [facility] [place] [facility] [place] [address] ProviderMg MD [facility] [place] [address] Social History Tobacco Use Types Packs/Day Years Used Date Smoking Tobacco: Never Assessed Sex and Gender Information Value Date Recorded Sex Assigned at Not on file Legal Sex Male 1:09 PM CDT Gender Identity Not on file Sexual Orientation Not on file documented as of this encounter Miscellaneous Notes * Cerner Conversion Note - Mg ProviderMD - 2019 3:00 AM CADMIUM PLATER Nutrition Assessment Entered On: 2019 11:24 EST Performed On: 2019 11:24 EST by Gracia Sneed Clinical Dietitian Nutrition Assessment Nutrition Assessment Reason : Follow Up Gracia Sneed, Clinical Dietitian - 2019 11:24 EST Nutrition Recommendations Dietitian Recommendations : 05/09: Rescreen: Pt seen on 3rd floor, noted CadrioMEMS placed 3/4. culture manager noted referral made to outpatient cardiac [...] Labs and meds reviewed. [facility]min. L[facility] -receiving colace. [...] Sneed, Clinical Dietitian - 2019 15:53 EST Electronically signed by Morales Mejia Conversion Seed And Fertilizer Specialist Cerner at 06/19/2022 11:03 PM CDT documented in this encounter Plan of Treatment Not on file documented as of this encounter Visit Diagnoses Not on filedocumented in this encounter
--- OUTSIDE RECORDS SUMMARY | 2025-02-19 15:52 | XMS_ITS | Encounter Summary ---
Author Organization [employer] ([place], [place], [place], [place], [place]) Address [address] [place] [address] Care Team Providers Care Fun House Operator Name Role Phone Unavailable Primary Care Provider Unavailabl e Encounter Details Date Type Department Care Team (Late st Contact Info) Description 2019 Transcribed Document [facility] [place] [facility] [place] [address] ProviderMg MD [facility] [place] [id number] Social History Tobacco Use Types Packs/Day Years Used Date Smoking Tobacco: Never Assessed Sex and Gender Information Value Date Recorded Sex Assigned at Not on file Legal Sex Male 1:09 PM CDT Gender Identity Not on file Sexual Orientation Not on file documented as of this encounter Miscellaneous Notes * Cerner Conversion Note - Mg Ritchie MD - 2019 12:47 PM 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 Integumentary: Warm, Dry, [place], No rash. Results Review General results CArdiomems [...] plan of care. Electronically signed by Jackie, [facility] Conversion Media Planner Cerner at 06/19/2022 10:53 PM CDT documented in this encounter Plan of Treatment Not on file documented as of this encounter Visit Diagnoses Not on filedocumented in this encounter
--- OUTSIDE RECORDS SUMMARY | 2025-02-19 15:52 | XMS_ITS | Encounter Summary ---
Author Organization [facility] Address [address] [facility] [place] [address] Care Team Providers Care Deadener Name Role Phone Herberth Perez MD Primary Care Provider [phone] Katrin Oviedo RN Unavailable [phone] Zaida Lafleur TRACK WELDER Unavailable [phone] Gracia Petersen TRACK WELDER Unavailable [phone] Yunior Solorzano MD Unavailable [phone] Ross Baez DO Unavailable [phone] Edith Aleman RN Unavailable Unavailable Reason for Visit * Reason Comments Med Refill Encounter Details Date Type Department Care Team (Late st Contact Info) Description 08/20/2021 Refill [facility] [place] [facility] [address] [place] [address] Grcaia Petersen, TRACK WELDER [address] [place] [address] Social History Tobacco Use Types [...] Description 04/22/2025 9:00 AM EST Ancillary Procedure [facility] [place] [facility] [address] [facility]. [address] [place] [address] documented as of this encounter Visit Diagnoses [...] documented as of this encounter Care Teams Deadener Relationship Specialty Start Date End Date Herberth Perez MD [address] [place] [address] [place] [address] PCP - General 07/17/20 Katrin Oviedo, RN [facility] [address] [place] [address] VAD Coordinator Cardiology 08/06/20 10/21/24 Zaida Lafleur APRN [address] [place] [address] Nurse Practitioner Advanced Heart Failure and Transplant Cardiology 08/06/20 06/11/23 Gracia Petersen APRN [address] [place] [phone] Nurse Practitioner Internal Medicine 08/06/20 Yunior Solorzano MD [address] [place] [address] Consulting Physician Gastroenterology 07/18/22 Ross Baez DO [address] [phone] Surgeon Cardiothoracic Surgery 07/18/22 Edith Aleman, CONCRETE VAULT MAKER None VAD Coordinator 10/14/24 documented as of this encounter
--- OUTSIDE RECORDS SUMMARY | 2025-02-19 15:52 | XMS_ITS | Encounter Summary ---
Author Organization [employer] ([place], [place], [place], [place], [place]) Address [address] [place] [address] Care Team Providers Care Manager Orange Name Role Phone Unavailable Primary Care Provider Unavailabl e Encounter Details Date Type Department Care Team (Late st Contact Info) Description 2019 Transcribed Document [facility] [place] Family Medicine [facility] [place] [address] ProviderMg [place] [address] Social History Tobacco Use Types Packs/Day Years Used Date Smoking Tobacco: Never Assessed Sex and Gender Information Value Date Recorded Sex Assigned at Not on file Legal Sex Male 1:09 PM CDT Gender Identity Not on file Sexual Orientation Not on file documented as of this encounter Miscellaneous Notes * Cerner Conversion Note - Mg Ritchie MD - 2019 8:38 PM LABORER ELECTROPLATING [place] [id number] JOSE PEARSON :1970 Visit Time:05/03/2019 Your Visit [...] appoint/instructions Where: [address] [place] [address]- Business (1) Follow Up with [facility] When Within 1 week Comments Office to call with appoint/instructions Where: [address] [place] [address]- Business (1) Medications What How Much When Instructions Next Dose bumetanide (bumetanide 2 mg oral tablet) 1 Tablet(s) Oral Two Times A Day Pickup at [place] [address] start 05/10 cyclobenzaprine (cyclobenzaprine 10 mg oral tablet) 0.5 Tablet(s) Oral Two Times A Day as needed for Cramping Pickup at [place] [address] as needed magnesium oxide (magnesium oxide 400 mg (240 mg elemental magnesium) oral tablet) 1 Tablet(s) Oral Two Times A Day Pickup at [place] [address] start 05/10 metOLazone (metOLazone 10 mg oral tablet) 1 Tablet(s) Oral Every Day Pickup at [place] [address] start 05/10 dofetilide (Tikosyn 125 mcg oral capsule) 3 Capsule(s) Oral Two Times A Day Pickup at [place] [address] start 05/10 spironolactone (Aldactone 25 mg oral tablet) 2 Tablet(s) Oral Every Day Pickup at [place] [address] start 05/10 carvedilol (carvedilol 3.125 mg oral [...] Times A Day start 05/10 Pharmacy Information [facility] [address]: [address] [place], [place] [phone] Take your medications faithfully. Do NOT skip [...] and water are not available, use hand drama critic. ? Change your dressing as told by [...] contrast dye from your body. ??? Take opuh-zsv-huzuymj and prescription medicines only as told by [...] 09/08/2005 Document Revised: 01/25/2017 Document Reviewed: 01/25/2017 [employer] Interactive Patient Education ?? 2019 [employer] Heart-Healthy Eating Plan Many factors influence [...] foods can I eat? Grains Breads, including Chilean, white, raymundo, wheat, raisin, rye, oatmeal, and Burkinan. Tortillas that are neither fried nor made with lard or trans fat. Low-fat rolls, including hotdog and hamburger buns and Pitcairn Islander muffins. Biscuits. Muffins. Waffles. Pancakes. Light popcorn. Whole-grain cereals. Flatbread. [place] toast. Pretzels. Breadsticks. Rusks. Low-fat snacks and [...] cooking, baking, salads, and as spreads. Other Lyons powder. Coffee and tea. All seasonings and [...] cheese. Whole milk cheeses, including blue (ana), Fowler Jl, Brie, Temo, [place] Islander, Havarti, Fijian, cheddar, Camembert, and Alma. Whole or 2% milk that is liquid, [...] that has suet, meat fat, or shortening. Lyons butter, hydrogenated oils, palm oil, coconut oil, [...] 11/29/2008 Document Revised: 09/09/2016 Document Reviewed: 08/14/2014 [employer] Interactive Patient Education ?? 2019 [employer] Living With Heart Failure Heart failure [...] failure, and improving your symptoms. ??? Take xfjt-lwy-ypcefsa and prescription medicines only as told by [...] provider about groups near you. ??? The [place] Heart Association: www.heart.org Contact a health care [...] 07/05/2017 Document Revised: 07/05/2017 Document Reviewed: 07/05/2017 [employer] Interactive Patient Education ?? 2019 [employer] Heart Failure Heart failure is a [...] these instructions at home: Medicines ??? Take qzmy-bff-qrlknhm and prescription medicines only as told by [...] 02/20/2006 Document Revised: 10/25/2016 Document Reviewed: 09/14/2016 [employer] Interactive Patient Education ?? 2017 [employer] Low-Sodium Eating Plan Sodium, which is [...] (monosodium glutamate). MSG is sometimes added to Latvian food, bouillon, and some canned foods. What [...] such as ricotta cheese, fresh mozzarella, or Fijian cheese Low-sodium or reduced-sodium cheese. Cream cheese. [...] Vegetables Sauerkraut, pickled vegetables, and relishes. Olives. Chilean fries. Onion rings. Regular canned vegetables (not [...] salad dressings. Salsa. Potato and tortilla chips. Monroe chips and puffs. Salted popcorn and pretzels. [...] 08/12/2002 Document Revised: 02/13/2017 Document Reviewed: 02/13/2017 [employer] Interactive Patient Education ?? 2019 [employer]. Heart-Healthy Eating Plan Heart-healthy meal planning includes: [...] foods can I eat? Grains Breads, including Chilean, white, raymundo, wheat, raisin, rye, oatmeal, and Burkinan. Tortillas that are neither fried nor made with lard or trans fat. Low-fat rolls, including hotdog and hamburger buns and [place] Islander muffins. Biscuits. Muffins. Waffles. Pancakes. Light popcorn. [...] cooking, baking, salads, and as spreads. Other Lyons powder. Coffee and tea. All seasonings and [...] cottage cheese. Whole-milk cheeses, including blue (ana), Fowler Jl, Brie, Temo, [place]er, Havarti, Fijian, cheddar, Camembert, and Alma. Whole or 2% milk that is liquid, [...] that has suet, meat fat, or shortening. Lyons butter, hydrogenated oils, palm oil, coconut oil, [...] 08/21/2012 Document Revised: 07/28/2016 Document Reviewed: 08/14/2014 [employer] Interactive Patient Education ?? 2019 [employer]. spironolactone (spir ON oh LAK tone) Aldactone, CaroSpir What is the most important information I should know about spironolactone? You should not use spironolactone if you have kidney problems, high levels of potassium in your blood, Pershing's disease, if you are unable to urinate, [...] to it, or if you have: ?? Pershing's disease (an adrenal gland disorder); ?? high [...] may report side effects to FDA at 6-593-CQY-0733. What other drugs will affect spironolactone? Taking [...] may interact with spironolactone, including prescription and qual-nru-cbqbofg medicines, vitamins, and herbal products. Not all [...] to ensure that the information provided by [employer]. ('[employer]') is accurate, up-to-date, and complete, but no guarantee is made to that effect. Drug information contained herein may be time sensitive. [employer] information has been compiled for use by healthcare practitioners and consumers in the [place] and therefore [employer] does not warrant that uses outside of the [place] are appropriate, unless specifically indicated otherwise. [employer]'s drug information does not endorse drugs, diagnose patients or recommend therapy. [employer] drug information is an informational resource designed [...] effective or appropriate for any given patient. [employer] does not assume any responsibility for any aspect of healthcare administered with the aid of information [employer] provides. The information contained herein is not intended to cover all possible uses, directions, precautions, warnings, drug interactions, allergic reactions, or adverse effects. If you have questions about the drugs you are taking, check with your doctor, nurse or pharmacist. Copyright 6550-1609 [employer]. Version: 10.01. Revision Date: 03/02/2017. metolazone (me [...]
--- OUTSIDE RECORDS SUMMARY | 2025-02-19 15:52 | XMS_ITS | Encounter Summary ---
Author Organization [facility] Address [address] [place] [address] Care Team Providers Care Filling Room Operator Name Role Phone Herberth Perze MD Primary Care Provider Katrin Oviedo RN Unavailable [phone] Zaida Lafleur HEEL GUMMER Unavailable Gracia Petersen HEEL GUMMER Unavailable [phone] Yunior Solorzano MD Unavailable [phone] Ross Baez DO Unavailable Edith Aleman RN Unavailable Unavailable Encounter Details Date Type Department Care Team (Late st Contact Info) Description 11/10/2020 Community [facility] [address] [place] [address] Herberth Perez MD [address] [place] [address] Gross hematuria (Primary Dx) Social History [...] Description 04/22/2025 9:00 AM EST Ancillary Procedure [facility] [place] [facility] [address] [facility]. [address] [place] [address] documented as of this encounter Visit Diagnoses [...] documented as of this encounter Care Teams Filling Room Operator Relationship Specialty Start Date End Date Herberth Perez MD [address] [place] [address] [place] [address] PCP - General 07/17/20 Katrin Oviedo, [facility] [address] [place] [address] VAD Coordinator Cardiology 08/06/20 10/21/24 Zaida Lafleur APRN [address] [place] [address] Nurse Practitioner Advanced Heart Failure and Transplant Cardiology 08/06/20 06/11/23 Gracia Petersen APRN [address] [place] [address] Nurse Practitioner Internal Medicine 08/06/20 Yunior Solorzano MD [address] [place] [address] Consulting Physician Gastroenterology 07/18/22 Ross Baez, DO [address] [place] [address] Surgeon Cardiothoracic Surgery 07/18/22 Edith Aleman, HUMIDIFIER MAINTENANCE WORKER None VAD Coordinator 10/14/24 documented as of this encounter
--- OUTSIDE RECORDS SUMMARY | 2025-02-19 15:52 | XMS_ITS | Encounter Summary ---
Author Organization [employer] ([place], [place], [place], [place], [place]) Address [address] [place] [address] Care Team Providers Care Master Cook Name Role Phone Unavailable Primary Care Provider Unavailabl e Encounter Details Date Type Department Care Team (Late st Contact Info) Description 05/17/2019 Transcribed Document [facility] [place] [facility] [place] [address] ProviderMg MD [facility] [place] [id number] Social History Tobacco Use Types Packs/Day Years [...] Problem list: Medical angina / SNOMED CT 293048366 / Confirmed Cardiac defibrillator in place / SNOMED CT 8831033281 / Confirmed interrogated at physicians office---02/22/13 pacemaker / SNOMED CT 9075027696 / Confirmed stroke / SNOMED CT 556657966 / Confirmed he had a stroke when they found the blood clot in valve History of obstructive sleep apnea / IMO 10351018 / Confirmed high cholesterol / SNOMED CT 91923884 / Confirmed hypertension / SNOMED CT 3419674136 / Confirmed myocardial infarction / SNOMED CT 57453901 / Confirmed sesonal allergies / SNOMED CT 7801370402 / Confirmed, Active Problems (16) stroke angina [...] in all extremities, Normal peripheral perfusion, 2/6 ebre. Gastrointestinal: Soft, Non-tender, Non-distended, Normal bowel sounds. Integumentary: Warm, Dry, [place], No rash. Results Review General results CArdiomems [...] [place]. PAF-currently SR with hx of AV mirolsava RFA - tikosyn 375 bid - ICD [...] will arrange for heart transplant team at [facility]. I had a long discussion with him and his regarding above plan and they feel comfortable going home today.. Electronically signed by Morales Mejia Conversion Field Service Technician Poultry Cerner at 06/19/2022 11:07 PM CDT documented in this encounter Plan of Treatment Not on file documented as of this encounter Visit Diagnoses Not on filedocumented in this encounter
--- OUTSIDE RECORDS SUMMARY | 2025-02-19 15:52 | XMS_ITS | Encounter Summary ---
Author Organization [employer] ([place], [place], [place], [place], [place]) Address [address] [place] [address] Care Team Providers Care Catering Service Manager Name Role Phone Unavailable Primary Care Provider Unavailabl e Encounter Details Date Type Department Care Team (Late st Contact Info) Description 2019 Transcribed Document [facility] Family Medicine [facility] [place] [address] ProviderMg MD [place] [address] Social History Tobacco Use Types Packs/Day Years Used Date Smoking Tobacco: Never Assessed Sex and Gender Information Value Date Recorded Sex Assigned at Not on file Legal Sex Male 1:09 PM CDT Gender Identity Not on file Sexual Orientation Not on file documented as of this encounter Miscellaneous Notes * Cerner Conversion Note - Mg ProviderMD - 2019 2:12 PM CHIEF DOG LICENSE INSPECTOR On Going Discharge Planning Entered On: 2019 14:13 EST Performed On: 2019 14:12 EST by Alyse Townsend Social Worker-Mechanical Apprentice Care Management Progress Note Discharge Arrangements : Patient Post-Acute Information Patient Name: JOSE PEARSON Gender: Male : [birth year] Age: 48 Years No Post-Acute Placement(s) Listed No Post-Acute Service(s) Listed No [place] Referral(s) Listed Alyse Townsend Social Worker-Mechanical Apprentice - 2019 14:12 EST Narrative Progress Note Narrative Progress Note : 05/09 Per chart, Dr. Davis was consulted for tikosyn dosing. Continue to follow... Historical Progress Note : 05/08 Per documentation left by Paula Villeda RN CM, referral information was sent to [facility] transplant program. Alyse Townsend Social Worker-Mechanical Apprentice - 05/09/19 08:57:21 05/06 Received order to make referral to outpatient cardiac transplant program. Contacted [facility] appointment telephone number [phone]. They report the person who typically takes the referrals is unavailable and they will have her contact CM back. CM contact information was provided. They report the referral/sports coordinator is Kailey PH: [phone]. Alyse Townsend Social Worker-Mechanical Apprentice - 05/07/19 15:01:13 Per RN in Multidisciplinary rounds patient is NPO for scheduled Cardiomems today. Having some nausea after Fe Infusions requested the infusion be held until after procedure so he can eat. CM will follow. TANVIR THAYER Rn-Atomic Spectroscopist - 05/06/19 11:03:45 Alyse Townsend Social Worker-Mechanical Apprentice - 2019 14:12 EST Electronically signed by [facility] Conversion Split And Drum Room Supervisor Cerner at 06/19/2022 10:56 PM CDT documented in this encounter Plan of Treatment Not on file documented as of this encounter Visit Diagnoses Not on filedocumented in this encounter
--- OUTSIDE RECORDS SUMMARY | 2025-02-19 15:52 | XMS_ITS | Encounter Summary ---
Author Organization [employer] ([place], [place], [place], [place], [place]) Address [address] [place] [address] Care Team Providers Care Boat Camp Operator Name Role Phone Unavailable Primary Care Provider Unavailabl e Encounter Details Date Type Department Care Team (Late st Contact Info) Description 2019 Transcribed Document [facility] [place] [facility] [place] [address] ProviderMg MD [facility] [place] [address] Social History Tobacco Use Types Packs/Day Years Used Date Smoking Tobacco: Never Assessed Sex and Gender Information Value Date Recorded Sex Assigned at Not on file Legal Sex Male 1:09 PM CDT Gender Identity Not on file Sexual Orientation Not on file documented as of this encounter Miscellaneous Notes * Cerner Conversion Note - Mg ProviderMD - 2019 12:15 PM KNITTER OPERATOR UM Authorization Entered On: 2019 12:16 EST Performed On: 2019 12:15 EST by Trudi Gaona Rn-Utilization Review Primary Insurance Authorization Authorization and Policy Numbers : Insurance 1 Health Plan: [facility] Policy Number: Authorization Number: Insurance Primary Name : [employer] Administ[employer] [id number] Authorization Status-Primary : Admit approved Authorization Number-Primary : [id number] Number of Days Authorized-Primary : 6 Day(s) Authorized Service Begin Date-Primary : 05/03/2019 EST Authorized Service End Date-Primary : 05/09/2019 EST Authorization Comments-Primary : Continued stay clinicals faxed via [employer] Historical Authorization Comments-Primary : Comment 1: [employer]C approved per Katrin for total of 7 days --- nrd 05/09 (CHARLA BARRAZA RN-Utilization Review 05/08/2019 15:22) Comment 2: Clinicals for CS faxed via [employer] (THORNTON, MARLENE, Rn-Utilization Review 05/08/2019 14:43) Comment 3: [place] approved per Katrin for 5 days total --- nrd 05/07 (CHARLA BARRAZA, RN-Utilization Review 05/06/2019 13:43) Comment 4: Uploaded continuing stay clinicals (05/06/19) to [facility] via [employer]. (ARMANDO SHANNON, RN-Utilization Review 05/06/2019 12:11) Comment 5: Per [facility], admit approved with auth #[id number] given from 05/03-05/05/19. Next review date 05/06/19. (ARMANDO SHANNON, RN-Utilization Review 05/06/2019 08:05) Comment 6: Uploaded clinicals to [facility] administrators via [employer]. Manually faxed ARC form. (ARMANDO SHANNON, RN-Utilization Review 05/03/2019 13:31) Trudi Gaona, Rn-Utilization Review - 2019 12:15 EST documented in this encounter Plan of Treatment Not on file documented as of this encounter Visit Diagnoses Not on filedocumented in this encounter
--- OUTSIDE RECORDS SUMMARY | 2025-02-19 15:52 | XMS_ITS | Encounter Summary ---
Author Organization [facility] Address [address] [place] [address] Care Team Providers Care Clerk Of Court Name Role Phone Herberth Perez MD Primary Care Provider [phone] Katrin Oviedo RN Unavailable [phone] Zaida Lafleur DRILL OPERATOR PNEUMATIC Unavailable Gracia Petersen DRILL OPERATOR PNEUMATIC Unavailable Yunior Solorzano MD Unavailable [phone] Ross Baez DO Unavailable [phone] Edith Aleman RN Unavailable Unavailable Reason for Visit * Reason Comments Med Refill Encounter Details Date Type Department Care Team (Late st Contact Info) Description 10/08/2020 Refill [facility] [address] [place] [address] Deandre Sanchez MD [address] [place] [address] Social History Tobacco Use Types [...] Description 04/22/2025 9:00 AM EST Ancillary Procedure [facility] [address] [place] [address] documented as of this encounter Visit Diagnoses [...] documented as of this encounter Care Teams Clerk Of Court Relationship Specialty Start Date End Date Herberth Perez MD [address] [place] [address] [place] [address] PCP - General 07/17/20 Katrin Oviedo RN [facility] VAD PROGRAM [address] [place] [address] VAD Coordinator Cardiology 08/06/20 10/21/24 Zaida Lafleur APRN [address] [place] [address] Nurse Practitioner Advanced Heart Failure and Transplant Cardiology 08/06/20 06/11/23 Gracia Petersen APRN [address] [place] [address] Nurse Practitioner Internal Medicine 08/06/20 Yunior Solorzano MD [address] [place] [address] Consulting Physician Gastroenterology 07/18/22 Ross Baez DO [address] [address] Surgeon Cardiothoracic Surgery 07/18/22 Edith Aleman, ELECTRICAL ENGINEERING DIRECTOR None VAD Coordinator 10/14/24 documented as of this encounter
--- OUTSIDE RECORDS SUMMARY | 2025-02-19 15:52 | XMS_ITS | Encounter Summary ---
Author Organization [employer] ([place], [place], [place], [place], [place]) Address [address] [place] [address] Care Team Providers Care Fruit Distributor Name Role Phone Unavailable Primary Care Provider Unavailabl e Encounter Details Date Type Department Care Team (Late st Contact Info) Description 05/22/2019 Transcribed Document [facility] [place] Family Medicine [facility] [place] [address] ProviderMg MD [facility] [place] [address] Social History Tobacco Use Types [...] Performed On: 05/22/2019 12:43 EDT by EDITH CHAVIS, client professional and Pulmonary Outpatient [place] Cardiac Outpatient Rehab Evaluation Comment : [facility] - 05/22/2019 12:43 EDT documented in this encounter Plan of Treatment Not on file documented as of this encounter Visit Diagnoses Not on filedocumented in this encounter
--- OUTSIDE RECORDS SUMMARY | 2025-02-19 15:53 | XMS_ITS | Encounter Summary ---
Author Organization [facility] Address [address] [place] [address] Care Team Providers Care Circulation Manager Name Role Phone Herberth Perez MD Primary Care Provider [phone] Gracia Petersen DIRECTOR TEEN POST Unavailable [phone] Yunior Solorzano MD Unavailable [phone] Ross Baez DO Unavailable [phone] Edith Aleman RN Unavailable Unavailable Encounter Details Date Type Department Care Team (Late st Contact Info) Description 01/24/2025 [facility] [place] [address] 1st Floor [address] [place] [address] Edith Aleman, DEVELOPMENT ENG None 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 0 09/19/2021 CAGE Questionnaire Score 0 022 Utilities Answer Date Recorded In the past 12 months has e [employer], gas, oil, or water company threatened to [...] Description 04/22/2025 9:00 AM EST Ancillary Procedure [place] [place] [address] [place] [address] documented as of this encounter Goals Goal Patient Goal Type Associated Problems Recent Progress Patient-Stated? 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)- Primary documented in this encounter Additional Health [...] documented as of this encounter Care Teams Circulation Manager Relationship Specialty Start Date End Date Herberth Perez MD [address] [place] [address] [place] [address] PCP - General 07/17/20 Gracia Petersen APRN [address] [address] Nurse Practitioner Internal Medicine 08/06/20 Yunior Solorzano MD [address] [place] [address] Consulting Physician Gastroenterology 07/18/22 Ross Baez, DO [address] [address] Surgeon Cardiothoracic Surgery 07/18/22 Edith Aleman, DEVELOPMENT ENG None VAD Coordinator 10/14/24 documented as of this encounter
--- OUTSIDE RECORDS SUMMARY | 2025-02-19 15:53 | XMS_ITS | Encounter Summary ---
Author Organization [facility] Address [address] [place] [address] Care Team Providers Care Devil Tender Name Role Phone Herberth Perez MD Primary Care Provider [phone] Gracia Petersen SHEET METAL LAYOUT MECHANIC Unavailable [phone] Yunior Solorzano MD Unavailable [phone] Ross Baez DO Unavailable [phone] Edith Aleman RN Unavailable Unavailable Encounter Details Date Type Department Care Team (Latest Contact Info) Description 01/20/2025 Anticoagulation - Warfarin Visit [facility] [place] [address] [facility] [address] [place] [address] Edith Aleman, PIPER HELPER None LVAD (left ventricular assist device) present (CMS/[facility]) (Primary Dx); Anticoagulant long-term [...] any time in the past 12 m [facility], were you homeless or [...] drink first t janine in the morning (EYE-TRAVEL TRAILER COMPONENTS ASSEMBLER) to steady your nerves or to get rid of a hangover? 0 09/19/2021 CAGE Questionnaire Score 0 022 Utilities Answer Date Recorded In the past 12 months has e [employer], gas, oil, or water [employer] threatened to shut off services in your [...] Description 04/22/2025 9:00 AM EST Ancillary Procedure [facility] [place] [address] [place] [address] documented as of this encounter Goals Goal Patient Goal Type Associated Problems Recent Progress Patient-Stated? Author LVAD Short Term Goal General On track( 024 11:53 AM EDT) Yes Katrin Oviedo RN Note: - 07/04/23: Patient states he wants to attend a wedding in November in [place] LVAD Timber Sizer Operator Goal General On track( 024 11:53 AM EDT) Yes Katrin Oviedo RN Note: - 07/04/23: Patient states he wants to meet his grandchild when they are born in November documented as of this encounter Visit Diagnoses Diagnosis LVAD (left [...] documented as of this encounter Care Teams Devil Tender Relationship Specialty Start Date End Date Herberth Perez MD [address] [place] [address] [place] [address] PCP - General 07/17/20 Gracia Petersen APRN [address] [place] [address] Nurse Practitioner Internal Medicine 08/06/20 Yunior Solorzano MD [address] [facility] [address] [place] [address] Consulting Physician Gastroenterology 07/18/22 Ross Baez, [address] [phone] Surgeon Cardiothoracic Surgery 07/18/22 Edith Aleman, PIPER HELPER None VAD Coordinator 10/14/24 documented as of this encounter
--- OUTSIDE RECORDS SUMMARY | 2025-02-19 15:53 | XMS_ITS | Encounter Summary ---
Author Organization [facility] Address [address] [place] [address] Care Team Providers Care Knife Sharpener Name Role Phone Herberth Perez MD Primary Care Provider [phone] Gracia Petersen GRANT COORDINATOR Unavailable [phone] Yunior Solorzano MD Unavailable [phone] Ross Baez DO Unavailable [phone] Edith Aleman RN Unavailable Unavailable Encounter Details Date Type Department Care Team (Latest Contact Info) Description 01/20/2025 Travel Social History Tobacco Use Types Packs/Day [...] in the past 12 m [facility], were you homeless or living [...] drink first t janine in the morning (EYE-GRAIN ELEVATOR MOTOR STARTER) to steady your nerves or to get [...] Description 04/22/2025 9:00 AM EST Ancillary Procedure [place] [facility] [place] [address] [place] [address] documented as of this encounter Goals Goal Patient Goal Type Associated Problems Recent Progress Patient-Stated? Author LVAD Short Term Goal General On track( 11:53 AM EDT) Yes Katrin Oviedo, RN Note: - 07/04/23: Patient states he wants to attend a wedding in November in [place] LVAD X Ray Developing Machine Operator Goal General On track( 024 11:53 [...] documented as of this encounter Care Teams Knife Sharpener Relationship Specialty Start Date End Date Herberth Perez MD [address] [place] [address] [place] [address] PCP - General 07/17/20 Gracia Petersen APRN [address] [place] [address] Nurse Practitioner Internal Medicine 08/06/20 Yunior Solorzano MD [address] [place] [address] Consulting Physician Gastroenterology 07/18/22 Ross Baez DO [address] [address] Surgeon Cardiothoracic Surgery 07/18/22 Edith Aleman, LINE OUT WORKER None VAD Coordinator 10/14/24 documented as of this encounter
--- OUTSIDE RECORDS SUMMARY | 2025-02-19 15:53 | XMS_ITS | Encounter Summary ---
Author Organization [facility] Address [address] [place] [id number] Care Team Providers Care Gold Frame Assembler Name Role Phone Herberth Perez MD Primary Care Provider [phone] Gracia Petersen DOCTOR ASSISTANT Unavailable [phone] Yunior Solorzano MD Unavailable [phone] Ross Baez DO Unavailable [phone] Edith Aleman RN Unavailable Unavailable Reason for Visit * Reason Comments Med Refill Encounter Details Date Type Department Care Team (Late st Contact Info) Description 01/14/2025 Refill [facility] [place] [address] [facility] 1st Floor [address] [place] [address] Martine Taylor, RN [facility] [address] [place] [address] Social History Tobacco Use Types Packs/Day Years [...] drink first t janine in the morning (EYE-DRESSAGE INSTRUCTOR) to steady your nerves or to get rid of a hangover? 0 09/19/2021 CAGE Questionnaire Score 0 Utilities Answer Date Recorded In the past 12 months has th e [employer], gas, oil, or water company threatened to [...] 04/22/2025 9:00 AM EST Ancillary Procedure [place] [facility] [place] [address] [place] [address] documented as of this encounter Goals Goal Patient Goal Type Associated Problems Recent Progress Patient-Stated? Author LVAD Short Term Goal General On track( 11:53 AM EDT) Yes Katrin Oviedo RN Note: - 07/04/23: Patient states he wants to attend a wedding in November in [place] LVAD Fdc Goal General On track( 024 11:53 AM [...] documented as of this encounter Care Teams Gold Frame Assembler Relationship Specialty Start Date End Date Herberth Perez MD [address] [place] [address] [place] [address] PCP - General 07/17/20 Gracia Petersen APRN [address] [place] [address] Nurse Practitioner Internal Medicine 08/06/20 Yunior Solorzano MD [address] [place] [address] Consulting Physician Gastroenterology 07/18/22 Ross Baez, [address] [phone] Surgeon Cardiothoracic Surgery 07/18/22 Edith Aleman, TREATING AND PUMPING SUPERVISOR None VAD Coordinator 10/14/24 documented as of this encounter
--- OUTSIDE RECORDS SUMMARY | 2025-02-19 15:53 | XMS_ITS | Encounter Summary ---
Author Organization [facility] Address [address] [place] [address] Care Team Providers Care School Commissioner Name Role Phone Herberth Perez MD Primary Care Provider [phone] Gracia Petersen LEGAL SUPPORT MANAGER Unavailable [phone] Yunior Solorzano MD Unavailable [phone] Ross Baez DO Unavailable [phone] Edith Aleman RN Unavailable Unavailable Encounter Details Date Type Department Care Team (Latest Contact Info) Description 02/11/2025 Anticoagulation - Warfarin Visit [place] [facility] [place] [address] [facility] Floor [address] [place] [address] Edith Aleman, SOFT TILE SETTER None LVAD (left ventricular assist device) present (CMS/[facility]) (Primary Dx); Anticoagulant long-term use [...] any time in the past 12 m [facility], were you homeless or [...] drink first t janine in the morning (EYE-SENIOR VICE PRESIDENT & GENERAL COUNSEL) to steady your nerves or to get rid of a hangover? 0 09/19/2021 CAGE Questionnaire Score 0 022 Utilities Answer Date Recorded In the past 12 months has e [employer], gas, oil, or water [employer] threatened to shut off services in your [...] Description 04/22/2025 9:00 AM EST Ancillary Procedure [place] [place] [address] [place] [address] documented as of this encounter Goals Goal Patient Goal Type Associated Problems Recent Progress Patient-Stated? Author LVAD Short Term Goal General On track( 024 11:53 AM EDT) Yes Katrin Oviedo RN Note: - 07/04/23: Patient states he wants to attend a wedding in November in [place] LVAD Natural Sciences Department Chair Goal General On track( 024 11:53 AM EDT) Yes Katrin Oviedo RN Note: - 07/04/23: Patient states he wants to meet his grandchild when they are born in November documented as of this encounter Procedures Procedure Name Priority Date/Time Associated Diagnosis Comments EXTERNAL PROTHROMBIN TIME (PT)/INR Routine 02/10/2025 documented in this encounter Results * External Prothrombin Time (PT)/INR (02/10/2025) External INR - Internormal Ratio 2.1 External Prothrombin Time (PT) Blood Venous blood specimen / Unknown 02/10/2025 [facility] Provider POINT OF CARE TEST ENTER/SHERIF T ORDERABLES Final Result documented in this encounter Visit Diagnoses Diagnosis LVAD (left ventricular assist device) present ([facility])- Primary Anticoagulant long-term use Encounter [...] plan has been documented for the patient 02/11/2025 7:50 AM EST documented as of this encounter Care Teams School Commissioner Relationship Specialty Start Date End Date Herberth Perez MD [address] [place] [address] [place] [address] PCP - General 07/17/20 Gracia Petersen APRN [address] [place] [address] Nurse Practitioner Internal Medicine 08/06/20 Yunior Solorzano MD [address] [place] [address] Consulting Physician Gastroenterology 07/18/22 Ross Baez DO [address] [address] Surgeon Cardiothoracic Surgery 07/18/22 Edith Aleman, SOFT TILE SETTER None VAD Coordinator 10/14/24 documented as of this encounter
--- OUTSIDE RECORDS SUMMARY | 2025-02-19 15:53 | XMS_ITS | Encounter Summary ---
Author Organization [facility] Address [address] [place] [address] Care Team Providers Care Theatrical Variety Agent Name Role Phone Herberth Perez MD Primary Care Provider [phone] Gracia Petersen ADMINISTRATIVE ASSISTANT FRONT DESK Unavailable [phone] Yunior Solorzano MD Unavailable [phone] Ross Baez DO Unavailable [phone] Edith Aleman RN Unavailable Unavailable Encounter Details Date Type Department Care Team (Late st Contact Info) Description 01/27/2025 Telephone [facility] [place] [address] [facility] [place] [address] Elisabet Raya MD [address] [place] [address] Social History Tobacco Use Types [...] place to sleep or slept in a detention (including now)? No 12/19/2023 PHQ-9 Answer Date [...] any time in the past 12 m [facility], were you homeless or living in a detention (including now)? No 04/08/2024 CAGE ASSESSMENT Answer [...] drink first t janine in the morning (EYE-TIMBER CRUISER) to steady your nerves or to get rid of a hangover? 0 09/19/2021 CAGE Questionnaire Score 0 022 Utilities Answer Date Recorded In the past 12 months has e [employer], gas, oil, or water [employer] threatened to shut off services in your [...] encounter Miscellaneous Notes * Telephone Encounter - Jose Armando Massey - 01/27/2025 11:19 AM EST I called patient to remind of ECHO and clinic appts the following day. Patient's spouse advised that they would be here. documented in this encounter Plan of Treatment Upcoming Encounters Date Type Department Care Team (Late st Contact Info) Description 04/22/2025 9:00 AM EST Ancillary Procedure [place] [place] [address] [place] [address] documented as of this encounter Goals Goal Patient Goal Type Associated Problems Recent Progress Patient-Stated? Author LVAD Short Term Goal General On track( 024 11:53 AM EDT) Yes Katrin Oviedo, RN Note: - 07/04/23: Patient states he wants to attend a wedding in November in [place] LVAD Stump Blower Goal General On track( 024 11:53 AM EDT) Yes Katrni Oviedo, RN Note: - 07/04/23: Patient states [...] documented as of this encounter Care Teams Theatrical Variety Agent Relationship Specialty Start Date End Date Herberth Perez MD [address] [place] [address] [place] [address] PCP - General 07/17/20 Gracia Petersen APRN [address] [place] [address] Nurse Practitioner Internal Medicine 08/06/20 Yunior Solorzano MD [address] [place] [address] Consulting Physician Gastroenterology 07/18/22 Ross Baez DO [address] [phone] Surgeon Cardiothoracic Surgery 07/18/22 Edith Aleman, SR. UNIX SYSTEM ADMINISTRATOR None VAD Coordinator 10/14/24 documented as of this encounter
--- OUTSIDE RECORDS SUMMARY | 2025-02-19 15:53 | XMS_ITS | Encounter Summary ---
Author Organization [facility] Address [address] [place] [id number] Care Team Providers Care Textile Conservator Name Role Phone Herberth Perez MD Primary Care Provider [phone] SQL DEVELOPER Unavailable [phone] Yunior Solorzano MD Unavailable [phone] Ross Baez DO Unavailable [phone] Edith Aleman RN Unavailable Unavailable Reason for Visit * Reason Onset Date Comments HCN - Patient Message 02/12/2025 Encounter Details Date Type Department Care Team (Late st Contact Info) Description 02/12/2025 Telephone [facility] [place] [address] [facility] [place] [address] Melisa Vazquez MD [address] [place] [address] HCN - Patient Message Social [...] drink first t janine in the morning (EYE-BENZENE OPERATOR) to steady your nerves or to [...] * Telephone Encounter - Ann Luna - 02/12/2025 8:47 AM EST Clinical Concern/Question Reason for Call: [facility] is calling to see if we can fax back the orders they sentwith providers signature, Best contact number: Other: [phone] Optimal time of day to reach caller: ANYTIME Additional comments/information from caller: None Note: Please do not reply to this message. Follow-up communication and further actions as a result of this message need to be communicated with the patient directly, if the patient is not active onMyChart. If the patient is active on MyChart, they will receive notification of the communication/outcome via [employer]. documented in this encounter Plan of Treatment Upcoming Encounters Date Type Department Care Team (Late st Contact Info) Description 04/22/2025 9:00 AM EST Ancillary Procedure [facility] [place] [address] [place] [address] documented as of this encounter Goals Goal Patient Goal Type Associated Problems Recent Progress Patient-Stated? Author LVAD Short Term Goal General On track( 024 11:53 AM EDT) Yes Katrin Oviedo, RN Note: - 07/04/23: Patient states he wants to attend a wedding in November in [place] LVAD Mcfp Goal General On track( 024 11:53 AM [...] documented as of this encounter Care Teams Textile Conservator Relationship Specialty Start Date End Date Herberth Perez MD [address] [place] [address] [place] [address] PCP - General 07/17/20 Gracia Petersen APRN [address] [place] [address] Nurse Practitioner Internal Medicine 08/06/20 Yunior Solorzano MD [address] [place] [address] Consulting Physician Gastroenterology 07/18/22 Ross Baez DO [address] [address] Surgeon Cardiothoracic Surgery 07/18/22 Edith Aleman, ROLLER SETTER None VAD Coordinator 10/14/24 documented as of this encounter
--- OUTSIDE RECORDS SUMMARY | 2025-02-19 15:53 | XMS_ITS | Encounter Summary ---
Author Organization [facility] Address [address] [place] [address] Care Team Providers Care Senior Water Resources Engineer Name Role Phone Herberth Perez MD Primary Care Provider [phone] Gracia Petersen OCCUPATIONAL THERAPY SPECIALIST Unavailable [phone] Yunior Solorzano MD Unavailable [phone] Ross Baez DO Unavailable [phone] Edith Aleman RN Unavailable Unavailable Encounter Details Date Type Department Care Team (Late st Contact Info) Description 01/27/2025 Orders Only [place] [id number] [place] [address] Bita Dyer MD [address] 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 [place] [address] documented as of this encounter Goals Goal Patient Goal Type Associated Problems Recent Progress Patient-Stated? 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 Complication involving left ventricular assist device (LVAD), subsequent encounter documented in this encounter Additional Health Concerns [...] documented as of this encounter Care Teams Senior Water Resources Engineer Relationship Specialty Start Date End Date Herberth Perez MD [address] [place] [address] [place] [address] PCP - General 07/17/20 Gracia Petersen, OCCUPATIONAL THERAPY SPECIALIST [address] [place] [address] Nurse Practitioner Internal Medicine 08/06/20 Yunior Solorzano MD [address] [facility] [address] [place] [address] Consulting Physician Gastroenterology 07/18/22 Ross Baez DO [address] [phone] Surgeon Cardiothoracic Surgery 07/18/22 Edith Aleman, BRIDGE PAINTER None VAD Coordinator 10/14/24 documented as of this encounter
--- OUTSIDE RECORDS SUMMARY | 2025-02-19 15:53 | XMS_ITS | Encounter Summary ---
Author Organization [facility] Address [address] [place] [address] Care Team Providers Care Knitting Machine Fixer Name Role Phone Herberth Perez MD Primary Care Provider [phone] Gracia Petersen AIRWAY CONTROLLER Unavailable [phone] Yunior Solorzano MD Unavailable [phone] Ross Baez DO Unavailable [phone] Edith Aleman RN Unavailable Unavailable Encounter Details Date Type Department Care Team (Late st Contact Info) Description 01/24/2025 Orders Only [facility] [place] [address]st [address] [place] [address] Edith Aleman, COOK HOUSE LABORER None Infection associated with driveline of left [...] any time in the past [address] [facility], were you homeless or living in [...] drink first t janine in the morning (EYE-HOSPITAL UNIT CLERK) to steady your nerves or to get rid of a hangover? 0 09/19/2021 CAGE Questionnaire Score 0 022 Utilities Answer Date Recorded In the past 12 months has e [employer], gas, oil, or water company threatened to [...] Description 04/22/2025 9:00 AM EST Ancillary Procedure [facility] [place] [address] [place] [address] documented as of this encounter Goals Goal Patient Goal Type Associated Problems Recent Progress Patient-Stated? Author LVAD Short Term Goal General On track( 11:53 AM EDT) Yes Katrin Oviedo RN Note: - 07/04/23: Patient states he wants to attend a wedding in November in [place] LVAD Detention Goal General On track( 11:53 AM EDT) [...] documented as of this encounter Care Teams Knitting Machine Fixer Relationship Specialty Start Date End Date Herberth Perez MD [address] [place] [address] [place] [address] PCP - General 07/17/20 Gracia Petersen APRN [address] [place] [address] Nurse Practitioner Internal Medicine 08/06/20 Yunior Solorzano MD [address] [place] [address] Consulting Physician Gastroenterology 07/18/22 Ross Baez, DO [address] [phone] Surgeon Cardiothoracic Surgery 07/18/22 Edith Aleman, COOK HOUSE LABORER None VAD Coordinator 10/14/24 documented as of this encounter
--- OUTSIDE RECORDS SUMMARY | 2025-02-19 15:53 | XMS_ITS | Encounter Summary ---
Author Organization Healthcare Address [address] [place] [address] Care Team Providers Care Director Of Residence Life Name Role Phone Herberth Perez MD Primary Care Provider [phone] Gracia Petersen BACKHOE OPERATOR Unavailable [phone] Yunior Solorzano MD Unavailable [phone] Ross Baez DO Unavailable [phone] Edith Aleman RN Unavailable Unavailable Encounter Details Date Type Department Care Team (Late st Contact Info) Description 01/27/2025 [facility] [place] [address] [place] [address] Edith Aleman, HAND TUBE BENDER None Social History Tobacco Use Types Packs/Day Years [...] any time in the past 12 m [facility], were you homeless or living [...] drink first t janine in the morning (EYE-AIR CARRIER OPERATIONS INSPECTOR) to steady your nerves or to [...] Description 04/22/2025 9:00 AM EST Ancillary Procedure [facility] [place] [address] [place] [address] documented as of this encounter Goals Goal Patient Goal Type Associated Problems Recent Progress Patient-Stated? Author LVAD Short Term Goal General On track( 11:53 AM EDT) Yes Katrin Oviedo, MARYCARMEN Note: - 07/04/23: Patient states he wants to attend a wedding in November in [place] LVAD Designated Broker Goal General On track( 11:53 AM EDT) [...] documented as of this encounter Care Teams Director Of Residence Life Relationship Specialty Start Date End Date Herberth Perez MD [address] [place] [address] [place] [address] PCP - General 07/17/20 Gracia Petersen APRN [address] [place] [address] Nurse Practitioner Internal Medicine 08/06/20 Yunior Solorzano MD [address] [place] [address] Consulting Physician Gastroenterology 07/18/22 Ross Baez, [address] [phone] Surgeon Cardiothoracic Surgery 07/18/22 Edith Aleman, HAND TUBE BENDER None VAD Coordinator 10/14/24 documented as of this encounter
--- OUTSIDE RECORDS SUMMARY | 2025-02-19 15:54 | XMS_ITS | Encounter Summary ---
Author Organization [employer] ([place], [place], [place], [place], [place]) Address [address] [place] [address] Care Team Providers Care Machinist Linotype Name Role Phone Unavailable Primary Care Provider Unavailabl e Encounter Details Date Type Department Care Team (Late st Contact Info) Description 04/12/2019 Transcribed Document [facility] [place] [facility] [place] [address] ProviderMg MD [facility] [place] [address] Social History Tobacco Use Types Packs/Day Years Used Date Smoking Tobacco: Never Assessed Sex and Gender Information Value Date Recorded Sex Assigned at Not on file Legal Sex Male 1:09 PM CDT Gender Identity Not on file Sexual Orientation Not on file documented as of this encounter Miscellaneous Notes * Cerner Conversion Note - Historical ProviderMD - 04/12/2019 5:00 AM PRINTER MAINTAINER Height and Weight, Routine Entered On: 04/12/2019 6:40 EST Performed On: 04/12/2019 5:00 EST by Ashely Townsend RN Height and Weight, Routine Routine Weight Source : Standing scale Routine Weight Entry Format : [place] Routine Weight, Pounds : 244 lb Routine Weight, Ounces : 7 oz Routine Weight Calculation : 111.11 kg Height Source : Stated Height Entry Format : [place] Height, Feet : 6 ft Height, Inches : 2 Inch Clinical Height : 187.96 cm Body Surface Area (BSA), Routine : 2.37 m2 Body Mass Index (BMI), Routine : 31.45 kg/m2 Ashely Townsend RN - 04/12/2019 6:39 EST Electronically signed by Jackie [facility] Conversion Web Page Developer Cerner at 06/19/2022 11:11 PM CDT documented in this encounter Plan of Treatment Not on file documented as of this encounter Visit Diagnoses Not on filedocumented in this encounter
--- OUTSIDE RECORDS SUMMARY | 2025-02-19 15:54 | XMS_ITS | Encounter Summary ---
Author Organization [facility] Address [address] [place] [address] Care Team Providers Care Cs Associate Name Role Phone Herberth Perez MD Primary Care Provider [phone] Gracia Petersen TERRAZZO TILE MAKER Unavailable [phone] Yunior Solorzano MD Unavailable [phone] Ross Baez DO Unavailable [phone] Edith Aleman RN Unavailable Unavailable Encounter Details Date Type Department Care Team (Latest Contact Info) Description 01/28/2025 Travel Social History Tobacco Use Types Packs/Day [...] any time in the past 12 m [facility], were you homeless or living [...] drink first t janine in the morning (EYE-SANITIZER) to steady your nerves or to get [...] Description 04/22/2025 9:00 AM EST Ancillary Procedure [facility] [place] [address] [place] [address] documented as of this encounter Goals Goal Patient Goal Type Associated Problems Recent Progress Patient-Stated? Author LVAD Short Term Goal General On track( 11:53 AM EDT) Yes Katrin Oviedo, RN Note: - 07/04/23: Patient states he wants to attend a wedding in November in [place] LVAD Beach Patrol Lieutenant Goal General On track( 024 11:53 AM [...] documented as of this encounter Care Teams Cs Associate Relationship Specialty Start Date End Date Herberth Perez MD [address] [place], [place] [id number] PCP - General 07/17/20 Gracia Petersen APRN [address] [place] [phone] Nurse Practitioner Internal Medicine 08/06/20 Yunior Solorzano MD [address] [place] [address] Consulting Physician Gastroenterology 07/18/22 Ross Baez DO [address] [address] Surgeon Cardiothoracic Surgery 07/18/22 Edith Aleman, BUSINESS AFFAIRS MANAGER None VAD Coordinator 10/14/24 documented as of this encounter
--- OUTSIDE RECORDS SUMMARY | 2025-02-19 15:54 | XMS_ITS | Encounter Summary ---
Author Organization [employer] ([place], [place], [place], [place], [place]) Address [address] [place] [address] Care Team Providers Care It Service Technician Name Role Phone Unavailable Primary Care Provider Unavailabl e Encounter Details Date Type Department Care Team (Late st Contact Info) Description 04/12/2019 Transcribed Document [facility] [place] [facility] [place] [address] ProviderMg MD [facility] [place] [address] Social History Tobacco Use Types Packs/Day Years Used Date Smoking Tobacco: Never Assessed Sex and Gender Information Value Date Recorded Sex Assigned at Not on file Legal Sex Male 1:09 PM CDT Gender Identity Not on file Sexual Orientation Not on file documented as of this encounter Miscellaneous Notes * Cerner Conversion Note - Historical ProviderMD - 04/12/2019 11:09 AM BLAST FURNACE TENDER [facility] OT Charges Entered On: 04/12/2019 11:09 EST Performed On: 04/12/2019 11:09 EST by NAHUM CORNELIUS OTR/Kaushal Hager OT Charges Screen For Tobacco Drummer : 1 NAHUM CORNELIUS OTR/Kaushal - 04/12/2019 11:09 EST documented in this encounter Plan of Treatment Not on file documented as of this encounter Visit Diagnoses Not on filedocumented in this encounter
--- OUTSIDE RECORDS SUMMARY | 2025-02-19 15:54 | XMS_ITS | Encounter Summary ---
Author Organization [employer] ([place], [place], [place], [place], [place]) Address [address] [place] [address] Care Team Providers Care Report Checker Name Role Phone Unavailable Primary Care Provider Unavailabl e Encounter Details Date Type Department Care Team (Late st Contact Info) Description 04/12/2019 Transcribed Document [facility] [place] [facility] [place] [address] ProviderMg MD [facility] [place] [address] Social History Tobacco Use Types Packs/Day Years Used Date Smoking Tobacco: Never Assessed Sex and Gender Information Value Date Recorded Sex Assigned at Not on file Legal Sex Male 1:09 PM CDT Gender Identity Not on file Sexual Orientation Not on file documented as of this encounter Miscellaneous Notes * Cerner Conversion Note - Mg ProviderMD - 04/12/2019 10:52 PM DELIVERY PERSON Event Note Entered On: 04/12/2019 23:02 EST [...] 04/12/2019 22:52 EST Electronically signed by Jackie [facility] Conversion Post Tensioning Ironworker Helper Cerner at 06/19/2022 11:04 PM CDT documented in this encounter Plan of Treatment Not on file documented as of this encounter Visit Diagnoses Not on filedocumented in this encounter
--- OUTSIDE RECORDS SUMMARY | 2025-02-19 15:54 | XMS_ITS | Encounter Summary ---
Author Organization [employer] ([place], [place], [place], [place], [place]) Address [address] [place] [address] Care Team Providers Care Bench Assembly Inspector Name Role Phone Unavailable Primary Care Provider Unavailabl e Encounter Details Date Type Department Care Team (Late st Contact Info) Description 04/12/2019 Transcribed Document [facility] [place] [address] [place] [address] ProviderMg MD [facility] [place] [address] Social History Tobacco Use Types Packs/Day Years Used Date Smoking Tobacco: Never Assessed Sex and Gender Information Value Date Recorded Sex Assigned at Not on file Legal Sex Male 1:09 PM CDT Gender Identity Not on file Sexual Orientation Not on file documented as of this encounter Miscellaneous Notes * [employer]ner Conversion Note - Historical ProviderMD - 04/12/2019 10:12 PM DEVELOPMENT SCIENTIST Sepsis Screening Tool Entered On: 04/12/2019 22:51 [...]
--- OUTSIDE RECORDS SUMMARY | 2025-02-19 15:54 | XMS_ITS | Encounter Summary ---
Author Organization [employer] ([place], [place], [place], [place], [place]) Address [address] [place] [address] Care Team Providers Care Province Archivist Name Role Phone Unavailable Primary Care Provider Unavailabl e Encounter Details Date Type Department Care Team (Late st Contact Info) Description 04/13/2019 Transcribed Document [facility] [place] [facility] [address] ProviderMg MD [facility] [place], [place] [address] Social History Tobacco Use Types Packs/Day Years Used Date Smoking Tobacco: Never Assessed Sex and Gender Information Value Date Recorded Sex Assigned at Not on file Legal Sex Male 1:09 PM CDT Gender Identity Not on file Sexual Orientation Not on file documented as of this encounter Miscellaneous Notes * Cerner Conversion Note - Historical ProviderMD - 04/13/2019 5:00 AM JOINT FINISHER Chart Check - Review Order Profile Entered [...]
--- OUTSIDE RECORDS SUMMARY | 2025-02-19 15:54 | XMS_ITS | Encounter Summary ---
Author Organization [facility] Address [address] [place] [address] Care Team Providers Care Health Practice Manager Name Role Phone Herberth Perez MD Primary Care Provider Katrin Oviedo RN Unavailable [phone] Zaida Lafleur CYTOPATHOLOGY TECHNOLOGIST Unavailable Gracia Petersen CYTOPATHOLOGY TECHNOLOGIST Unavailable [phone] Yunior Solorzano MD Unavailable [phone] Ross Baez DO Unavailable Edith Aleman RN Unavailable Unavailable Reason for Visit * Reason Comments Med Refill Encounter Details Date Type Department Care Team (Late st Contact Info) Description 11/14/2021 Refill [facility] [place] [address] [place] [address] Dina Saldana, CYTOPATHOLOGY TECHNOLOGIST [address] [place] [address] Social History Tobacco Use Types Packs/Day Years [...] drink first t janine in the morning (EYE-HOGSHEAD FILLER) to steady your nerves or to get [...] Description 04/22/2025 9:00 AM EST Ancillary Procedure [facility] [place] [address] [facility] [place] [address] documented as of this encounter Visit Diagnoses [...] documented as of this encounter Care Teams Health Practice Manager Relationship Specialty Start Date End Date Herberth Perez MD [address] [place] [address] [place] [address] PCP - General 07/17/20 Katrin Oviedo, RN [facility] [address] [place] [address] VAD Coordinator Cardiology 08/06/20 10/21/24 Zaida Lafleur APRN [address] [place] [phone] Nurse Practitioner Advanced Heart Failure and Transplant Cardiology 08/06/20 06/11/23 Gracia Petersen APRN [address] [place] [address] Nurse Practitioner Internal Medicine 08/06/20 Yunior Solorzano MD [address] [facility] [address] [place] [address] Consulting Physician Gastroenterology 07/18/22 Ross Baez, DO [address] [place] [address] Surgeon Cardiothoracic Surgery 07/18/22 Edith Aleman, WHEEL POLISHER None VAD Coordinator 10/14/24 documented as of this encounter
--- OUTSIDE RECORDS SUMMARY | 2025-02-19 15:54 | XMS_ITS | Encounter Summary ---
Author Organization [employer] ([place], [place], [place], [place], [place]) Address [address] [place] [address] Care Team Providers Care Roustabout Name Role Phone Unavailable Primary Care Provider Unavailabl e Encounter Details Date Type Department Care Team (Late st Contact Info) Description 05/03/2019 Transcribed Document [facility] [place] Medicine [address] [place] [address] ProviderMg MD [address] [place], [place] [address] Social History Tobacco Use Types Packs/Day Years Used Date Smoking Tobacco: Never Assessed Sex and Gender Information Value Date Recorded Sex Assigned at Not on file Legal Sex Male 1:09 PM CDT Gender Identity Not on file Sexual Orientation Not on file documented as of this encounter Miscellaneous Notes * [employer]ner Conversion Note - Historical ProviderMD - 05/03/2019 2:00 AM HAND COUNTER Director Of Cardiology Service Line Details Entered On: 05/03/2019 4:03 EST Performed [...]
--- OUTSIDE RECORDS SUMMARY | 2025-02-19 15:54 | XMS_ITS | Encounter Summary ---
Author Organization [employer] ([place], [place], [place], [place], [place]) Address [address] [place] [address] Care Team Providers Care Engineering Test Specialist Name Role Phone Unavailable Primary Care Provider Unavailabl e Encounter Details Date Type Department Care Team (Late st Contact Info) Description 05/02/2019 Transcribed Document [facility] [place] [address] [place] [address] ProviderMg MD [facility] [place], [place] [address] Social History Tobacco Use Types Packs/Day Years Used Date Smoking Tobacco: Never Assessed Sex and Gender Information Value Date Recorded Sex Assigned at Not on file Legal Sex Male 1:09 PM CDT Gender Identity Not on file Sexual Orientation Not on file documented as of this encounter Miscellaneous Notes * Cerner Conversion Note - Mg ProviderMD - 05/02/2019 4:10 PM BLOW TORCH BURNER Pain Assessment Entered On: 2019 15:50 EST Performed On: 2019 8:41 EST by EVE NGUYEN RN Intervention Information: acetaminophen-HYDROcodone Performed by Reyna Nicolas RN on 2019 07:41:00 EST acetaminophen-HYDROcodone,1Tab Oral,Pain (Moderate 4-6) Pain Assessment Pain Assessment : Follow-up assessment Pain Scale Goal : 0 Pain Scale Used : 0-10 Scale EVE NGUYEN RN - 2019 15:50 EST Pain Scale [...]
--- OUTSIDE RECORDS SUMMARY | 2025-02-19 15:54 | XMS_ITS | Encounter Summary ---
Author Organization [employer] ([place], [place], [place], [place], [place]) Address [address] [place] [address] Care Team Providers Care Paste Up Artist Name Role Phone Unavailable Primary Care Provider Unavailabl e Encounter Details Date Type Department Care Team (Late st Contact Info) Description 04/12/2019 Transcribed Document [facility] [place] [facility] [place] [address] ProviderMg MD [facility] [place] [address] Social History Tobacco Use Types Packs/Day Years Used Date Smoking Tobacco: Never Assessed Sex and Gender Information Value Date Recorded Sex Assigned at Not on file Legal Sex Male 1:09 PM CDT Gender Identity Not on file Sexual Orientation Not on file documented as of this encounter Miscellaneous Notes * [employer]ner Conversion Note - Historical ProviderMD - 04/12/2019 11:[address] [facility] PT Charges Entered On: 04/12/2019 [...]
--- OUTSIDE RECORDS SUMMARY | 2025-02-19 15:54 | XMS_ITS | Encounter Summary ---
Author Organization [employer] ([place], [place], [place], [place], [place]) Address [address] [place] [address] Care Team Providers Care Book Reviewer Name Role Phone Unavailable Primary Care Provider Unavailabl e Encounter Details Date Type Department Care Team (Late st Contact Info) Description 04/12/2019 Transcribed Document [facility] [place] [facility] [place] [address] ProviderMg MD [facility] [place], [place] [id number] Social History Tobacco Use Types Packs/Day Years Used Date Smoking Tobacco: Never Assessed Sex and Gender Information Value Date Recorded Sex Assigned at Not on file Legal Sex Male 1:09 PM CDT Gender Identity Not on file Sexual Orientation Not on file documented as of this encounter Miscellaneous Notes * Cerner Conversion Note - Mg Ritchie MD - 04/12/2019 10:27 AM DEBARKER OPERATOR Patient: JOSE PEARSON Age: 48 years [...] Pain (Mild 1-3) Xarelto: 10 mg, Oral, [id number] Zofran: 4 mg, IV Push, Q6H, PRN: [...] mg tab 10 mg 1 Tab, Oral, [id number] spironolactone 25 mg tab 25 mg 1 [...] list: All Problems angina / SNOMED CT 096168831 / Confirmed Asthma / SNOMED CT 566159354 / Confirmed Cardiac defibrillator in place / SNOMED CT 1372448783 / Confirmed interrogated at physicians office---02/22/13 pacemaker / SNOMED CT 3789581640 / Confirmed Cardiomyopathy / SNOMED CT 241921950 / Confirmed stroke / SNOMED CT 581723479 / Confirmed he had a stroke when they found the blood clot in valve GERD - Gastro-esophageal reflux disease / SNOMED CT 6188027586 / Confirmed H/O: CVA / SNOMED CT 969427339 / Confirmed Heart failure / SNOMED CT 061715966 / Confirmed History of obstructive sleep apnea / IMO [id number] / Confirmed high cholesterol / SNOMED CT 87199550 / Confirmed Hyperlipidemia / SNOMED CT 41075131 / Confirmed hypertension / SNOMED CT 4332206543 / Confirmed Hypotension / SNOMED CT 219932188 / Confirmed myocardial infarction / SNOMED CT 56477216 / Confirmed sesonal allergies / SNOMED CT 8904232271 / Confirmed Resolved: At risk for sleep apnea / IMO [id number] Resolved: Moderate protein-calorie malnutrition / SNOMED CT 376388181 Acute illness or injury related malnutrition r/t hyperthyroidism as evidenced by wt loss of 14# x 2 wks (5.8%) per pt, po intake <50% >/=5 days, moderate subcutaneous fat loss to orbitals Resolved: 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 / SNOMED CT 637699482 treated with blood thinners, Active Problems (16) stroke angina Asthma Cardiac defibrillator in place Cardiomyopathy GERD - Gastro-esophageal reflux disease H/O: CVA Heart failure high cholesterol History of obstructive sleep apnea Hyperlipidemia hypertension Hypotension myocardial infarction pacemaker sesonal allergies Histories Past Medical History: Resolved 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 (417951291): Onset on 04/02/2008 at 37 years. Resolved. Comments: 04/02/2013 EST 8:28 MARIAM - FLAQUITA MARTIN RN treated with blood thinners At risk for sleep apnea (68799558): Resolved. Family History: No family history items [...] EST Height Source Stated Height Entry Format [place] Height/Length, [place] (ft) 6 ft Height/Length [place]NADI[place] 2 Inch CLINICALHEIGHT 187.96 cm Routine Weight Source Standing scale Routine Weight Entry Format [place] Routine Weight, Pounds 244 lb Routine Weight, Ounces 7 oz Routine Weight Calculation 111.11 kg Body Mass Index (BMI), Routine 31.45 kg/m2 Body Surface Area (BSA), Routine 2.37 m2 04/11/2019 16:28 EST Height Source Stated Height Entry Format [place] Height/Length, [place] (ft) 6 ft Height/Length [place] 2 Inch CLINICALHEIGHT 187.96 cm Pride Body Weight 81 kg Weight Source Standing scale Weight Entry Format [place] Weight [place] Citizen lb 248 lb CLINICALWEIGHT 112.73 kg Body [...] plan of care. Electronically signed by Jackie, [facility] Conversion Marriage And Family Teacher Cerner at 06/19/2022 10:51 PM CDT documented in this encounter Plan of Treatment Not on file documented as of this encounter Visit Diagnoses Not on filedocumented in this encounter
--- OUTSIDE RECORDS SUMMARY | 2025-02-19 15:54 | XMS_ITS | Encounter Summary ---
Author Organization [facility] Address [address] [place] [address] Care Team Providers Care Wool Tamper Name Role Phone Herberth Perez MD Primary Care Provider [phone] Gracia Petersen CUFF SETTER LOCKSTITCH Unavailable [phone] Yunior Solorzano MD Unavailable [phone] Ross Baez DO Unavailable [phone] Edith Aleman RN Unavailable Unavailable Reason for Referral * Clinic-Administered Medication (Routine) - Pending Review Specialty Diagnoses / Procedures Referred By Yared díaz Referred To Contact Diagnoses Iron deficiency Cierra Orellana MD [address] [place] [address] Phone: tel: fax: Referral ID Status Reason Start Date Expiration Date V isits Requested Visits Authorized [id number] Pending Review 01/29/2025 07/31/2026 5 5 Encounter Details Date Type Department Care Team (Late st Contact Info) Description 01/29/2025 Refill [facility] [place] [address] [facility] 1st Floor [address] [place] [address] Edith Aleman, JOINTER MACHINE OPERATOR None Iron deficiency (Primary Dx) Social History Tobacco Use Types [...] in the past 12 m [facility], were you homeless or living in a [...] drink first t janine in the morning (EYE-KARATE BLACK BELT) to steady your nerves or to get rid of a hangover? 0 09/19/2021 CAGE Questionnaire Score 0 022 Utilities Answer Date Recorded In the past 12 months has e RMI, gas, oil, or water company threatened to [...] Description 04/22/2025 9:00 AM EST Ancillary Procedure [facility] [place] [address] [place] [address] documented as of this encounter Goals Goal Patient Goal Type Associated Problems Recent Progress Patient-Stated? Author LVAD Short Term Goal General On track( 024 11:53 AM EDT) Yes Katrin Oviedo, RN Note: - 07/04/23: Patient states he wants to attend a wedding in November in [place] LVAD Halfway Goal General On track( 024 11:53 AM EDT) Yes Katrin Oviedo, RN Note: - 07/04/23: Patient states he wants to meet his grandchild when they are born in November documented as of this encounter Visit Diagnoses Diagnosis Iron deficiency- Primary Disorders of iron metabolism documented in this encounter Additional Health Concerns [...] documented as of this encounter Care Teams Wool Tamper Relationship Specialty Start Date End Date Herberth Perez MD [address] [place] [address] [place] [address] PCP - General 07/17/20 Gracia Petersen, LORI [address] [place] [phone] Nurse Practitioner Internal Medicine 08/06/20 Yunior Solorzano MD [address] [place] [address] Consulting Physician Gastroenterology 07/18/22 Ross Baez DO [address] [address] Surgeon Cardiothoracic Surgery 07/18/22 Edith Aleman, JOINTER MACHINE OPERATOR None VAD Coordinator 10/14/24 documented as of this encounter
--- OUTSIDE RECORDS SUMMARY | 2025-02-19 15:54 | XMS_ITS | Encounter Summary ---
Author Organization [facility] Address [address] [place] [address] Care Team Providers Care Senior Marketing Associate Name Role Phone Herberth Perez MD Primary Care Provider [phone] Gracia Petersen ACCOUNT SUPERVISOR Unavailable [phone] Yunior Solorzano MD Unavailable [phone] Ross Baez DO Unavailable [phone] Edith Aleman RN Unavailable Unavailable Encounter Details Date Type Department Care Team (Latest Contact Info) Description 01/28/2025 Anticoagulation - Warfarin Visit [facility] [place] [address] [facility] [address] [place] [phone] Edith Aleman, INTERNET MARKETING CONSULTANT None LVAD (left ventricular assist device) present (CMS/[facility]) (Primary Dx); Anticoagulant long-term [...] place to sleep or slept in a assisted (including now)? No 12/19/2023 PHQ-9 Answer Date [...] any time in the past 12 m [facility], were you homeless or living in a assisted (including now)? No 04/08/2024 CAGE ASSESSMENT Answer [...] drink first t janine in the morning (EYE-WEASAND TRIMMER) to steady your nerves or to get rid of a hangover? 0 09/19/2021 CAGE Questionnaire Score 0 022 Utilities Answer Date Recorded In the past 12 months has e [employer], gas, oil, or water [employer] threatened to shut off services in your [...] Description 04/22/2025 9:00 AM EST Ancillary Procedure [facility] [place] [address] [place] [address] documented as of this encounter Goals Goal Patient Goal Type Associated Problems Recent Progress Patient-Stated? Author LVAD Short Term Goal General On track( 024 11:53 AM EDT) Yes Katrin Oviedo RN Note: - 07/04/23: Patient states he wants to attend a wedding in November in [place] LVAD Furrier Designer Goal General On track( 024 11:53 AM EDT) Yes Katrin Oviedo RN Note: - 07/04/23: Patient states he wants to meet his grandchild when they are born in November documented as of this encounter Procedures Procedure Name Priority Date/Time Associated Diagnosis Comments EXTERNAL PROTHROMBIN TIME (PT)/INR Routine 01/27/2025 documented in this encounter Results * External Prothrombin Time (PT)/INR (01/27/2025) External INR - Internormal Ratio 2.6 External Prothrombin Time (PT) Blood Venous blood specimen / Unknown 01/27/2025 [facility] Provider POINT OF CARE TEST ENTER/SHERIF T ORDERABLES Final Result documented in this encounter Visit Diagnoses Diagnosis LVAD (left ventricular assist device) present ([facility]/HCC)- Primary Anticoagulant long-term use Encounter for long-term [...] as of this encounter Care Teams Senior Marketing Associate Relationship Specialty Start Date End Date Herberth Perez MD [address] [place] [address] [place] [address] PCP - General 07/17/20 Gracia Petersen APRN [address] [place] [address] Nurse Practitioner Internal Medicine 08/06/20 Yunior Solorzano MD [address] [place] [phone] Consulting Physician Gastroenterology 07/18/22 Ross Baez DO [address] [address] Surgeon Cardiothoracic Surgery 07/18/22 Edith Aleman, INTERNET MARKETING CONSULTANT None VAD Coordinator 10/14/24 documented as of this encounter
--- OUTSIDE RECORDS SUMMARY | 2025-02-19 15:54 | XMS_ITS | Encounter Summary ---
Author Organization [employer] ([place], [place], [place], [place], [place]) Address [address] [place] [address] Care Team Providers Care Shake Out Worker Name Role Phone Unavailable Primary Care Provider Unavailabl e Encounter Details Date Type Department Care Team (Late st Contact Info) Description 04/13/2019 Transcribed Document [facility] Family Medicine [facility] [place] [address] ProviderMg MD [facility] [place] [address] Social History Tobacco Use Types Packs/Day Years Used Date Smoking Tobacco: Never Assessed Sex and Gender Information Value Date Recorded Sex Assigned at Not on file Legal Sex Male 1:09 PM CDT Gender Identity Not on file Sexual Orientation Not on file documented as of this encounter Miscellaneous Notes * Cerner Conversion Note - Mg ProviderMD - 04/13/2019 12:39 PM INDEPENDENT DRIVER Stroke/Warfarin Instructions Entered On: 04/13/2019 12:39 EST [...] 04/13/2019 12:39 EST Electronically signed by Jackie, [facility] Conversion Probation Manager Cerner at 06/19/2022 10:49 PM CDT documented in this encounter Plan of Treatment Not on file documented as of this encounter Visit Diagnoses Not on filedocumented in this encounter
--- OUTSIDE RECORDS SUMMARY | 2025-02-19 15:54 | XMS_ITS | Encounter Summary ---
Author Organization [employer] ([place], [place], [place], [place], [place]) Address [address] [place] [address] Care Team Providers Care Swaging Machine Operator Name Role Phone Unavailable Primary Care Provider Unavailabl e Encounter Details Date Type Department Care Team (Late st Contact Info) Description 04/11/2019 Transcribed Document [facility] Family [facility] [place] [address] ProviderMg MD [facility] [place] [address] Social History Tobacco Use Types Packs/Day Years Used Date Smoking Tobacco: Never Assessed Sex and Gender Information Value Date Recorded Sex Assigned at Not on file Legal Sex Male 1:09 PM CDT Gender Identity Not on file Sexual Orientation Not on file documented as of this encounter Miscellaneous Notes * Cerner Conversion Note - Mg ProviderMD - 04/11/2019 4:28 PM FRENCH LECTURER Admission History, Adult Entered On: 04/11/2019 17:15 [...] 04/11/2019 17:09 EST General Info Support Person/Patient Business Banking Relationship Manager : Yes Support Person/Pt Rep Name : Neel Pearson-- Contact Password : neel Support Person/Pt Rep Contact Information : [phone] Want Family/Rep/Phys Notified of Admit : No Emergency Contact #1 : Beth Jiagn Emergency Contact #1 Emergency Contact #1 Relationship : Emergency Contact #2 : na Emergency Contact #2 Phone Number : amaris Emergency Contact #2 Relationship : na Primary Language : Guamanian Preferred Communication Mode : Verbal Communication Barrier [...] Scale Risk Level : 0-24 Low Risk [place] Fall Interventions : Adequate lighting, Assistive devices [...] Source : Stated Height Entry Format : Forest Height, Feet : 6 ft(Converted to: 183 cm, 72 Inch) Height, Inches : 2 Inch(Converted to: 0 ft 2 Inch, 5.08 cm) Clinical Height : 187.96 cm Weight Source : Standing scale Weight Entry Format : Forest Clinical Dosing Weight : 112.73 kg Weight, Pounds : 248 lb Body Surface Area (BSA) : 2.38 m2 Body Mass Index : 31.9 kg/m2 (HI) [place] Body Weight : 81 kg Jennie Patel [...] Jennie Patel RN - 04/11/2019 17:09 EST Early Suicide Severity Rating Scale (C-SSRS) CSSRS Past [...]
--- OUTSIDE RECORDS SUMMARY | 2025-02-19 15:54 | XMS_ITS | Encounter Summary ---
Author Organization [employer] ([place], [place], [place], [place], [place]) Address [address] [place] [address] Care Team Providers Care Hand Tapper Name Role Phone Unavailable Primary Care Provider Unavailabl e Encounter Details Date Type Department Care Team (Late st Contact Info) Description 05/02/2019 Transcribed Document [facility] Family Medicine [facility] [place] [address] ProviderMg MD [facility] [place] [address] Social History Tobacco Use Types Packs/Day Years Used Date Smoking Tobacco: Never Assessed Sex and Gender Information Value Date Recorded Sex Assigned at Not on file Legal Sex Male 1:09 PM CDT Gender Identity Not on file Sexual Orientation Not on file documented as of this encounter Miscellaneous Notes * Cerner Conversion Note - Mg ProviderMD - 05/02/2019 3:13 PM LEGAL COLLECTOR Admission History, Adult Entered On: 05/02/2019 18:52 [...] RN - 05/02/2019 19:03 EST Support Person/Patient Catalogue Illustrator : Yes Support Person/Pt Rep Name : Neel Pearson-- Contact Password : neel Support Person/Pt Rep Contact Information : [phone] Want Family/Rep/Phys Notified of Admit : No Primary Language : Guatemalan Preferred Communication Mode : Verbal Communication Barrier [...] Scale Risk Level : 0-24 Low Risk [place] Fall Interventions : Adequate lighting, Bed in [...] Body Mass Index : 31.3 kg/m2 (HI) [place] Body Weight : 77 kg Chelo Cardenas RN - 05/02/2019 19:03 EST Height Source : Stated Height Entry Format : Swisher Weight Source : Bed scale Weight Entry Format : Swisher Clinical Dosing Weight : 104.55 kg Weight, [...] Chelo Cardenas RN - 05/02/2019 18:47 EST [place] Suicide Severity Rating Scale (C-SSRS) CSSRS Past [...] - 05/02/2019 18:47 EST Electronically signed by [facility] Conversion Psychiatric Aides Teacher Cerner at 06/19/2022 10:52 PM CDT documented in this encounter Plan of Treatment Not on file documented as of this encounter Visit Diagnoses Not on filedocumented in this encounter
--- OUTSIDE RECORDS SUMMARY | 2025-02-19 15:54 | XMS_ITS | Encounter Summary ---
Author Organization [employer] ([place], [place], [place], [place], [place]) Address [address] [place] [address] Care Team Providers Care Licensed Club Manager Name Role Phone Unavailable Primary Care Provider Unavailabl e Encounter Details Date Type Department Care Team (Late st Contact Info) Description 04/12/2019 Transcribed Document [facility] [place] [facility] [place] [address] ProviderMg MD [facility] [place] [address] Social History Tobacco Use Types Packs/Day Years Used Date Smoking Tobacco: Never Assessed Sex and Gender Information Value Date Recorded Sex Assigned at Not on file Legal Sex Male 1:09 PM CDT Gender Identity Not on file Sexual Orientation Not on file documented as of this encounter Miscellaneous Notes * Cerner Conversion Note - Historical ProviderMD - 04/12/2019 11:57 AM PROMOTION SPECIALIST Therapy Screen, PT Entered On: 04/12/2019 11:59 EST Performed On: 04/12/2019 11:57 EST by PAUL GARCES PT Therapy Screen, PT Medical Chart Reviewed : Yes Person Providing Information : Nurse, Patient Screen Completed : Yes Recommendation for Evaluation, PT : None Recommendations Upon Discharge : None PAUL GARCES PT - 04/12/2019 11:57 EST Electronically signed by Jackie [facility] Conversion Oncology Consultant Cerner at 06/19/2022 11:04 PM CDT documented in this encounter Plan of Treatment Not on file documented as of this encounter Visit Diagnoses Not on filedocumented in this encounter
--- OUTSIDE RECORDS SUMMARY | 2025-02-19 15:54 | XMS_ITS | Encounter Summary ---
Author Organization [facility] Address [address] [place] [id number] Care Team Providers Care Chief Scientific Officer Name Role Phone Herberth Perez MD Primary Care Provider [phone] Gracia Petersen ASSOCIATE ACCOUNTANT Unavailable [phone] Yunior Solorzano MD Unavailable [phone] Ross Baez DO Unavailable [phone] Edith Aleman RN Unavailable Unavailable Reason for Visit * Reason Onset Date Comments HCN - Patient Message 02/03/2025 Encounter Details Date Type Department Care Team (Late st Contact Info) Description 02/03/2025 Telephone [facility] [place] [address] [facility] [place] [address] Cierra Orellana MD [address] [place] [address] HCN - Patient Message Social [...] time in the past 12 m [facility], were you homeless or living in a [...] drink first t janine in the morning (EYE-SCHOOL STANDARDS COACH) to steady your nerves or to get [...] * Telephone Encounter - Ann Luna - 02/03/2025 4:50 PM EST Clinical Concern/Question Reason for Call: [facility] need orders updated, they need verification on what IV product the provider Is requesting and also the dosing. Please update and fax back to # [phone] Best contact number: Other: [phone] Optimal time of day to reach caller: ANYTIME Additional comments/information from caller: None Note: Please do not reply to this message. Follow-up communication and further actions as a result of this message need to be communicated with the patient directly, if the patient is not active onMyChart. If the patient is active on MyChart, they will receive notification of the communication/outcome via [employer]. documented in this encounter Plan of Treatment Upcoming Encounters Date Type Department Care Team (Late st Contact Info) Description 04/22/2025 9:00 AM EST Ancillary Procedure [facility] [place] [address] [place] [address] documented as of this encounter Goals Goal Patient Goal Type Associated Problems Recent Progress Patient-Stated? Author LVAD Short Term Goal General On track( 024 11:53 AM EDT) Yes Katrin Oviedo, RN Note: - 07/04/23: Patient states he wants to attend a wedding in November in [place] LVAD Mcfp Goal General On track( 024 [...] plan has been documented for the patient 02/03/2025 9:03 AM EST documented as of this encounter Care Teams Chief Scientific Officer Relationship Specialty Start Date End Date Herberth Perez MD [address] [place] [address] [place] [address] PCP - General 07/17/20 Gracia Petersen APRN [address] [place] [address] Nurse Practitioner Internal Medicine 08/06/20 Yunior Solorzano MD [address] [place] [address] Consulting Physician Gastroenterology 07/18/22 Ross Baez, DO [address] [phone] Surgeon Cardiothoracic Surgery 07/18/22 Edith Aleman, DISH STACKER None VAD Coordinator 10/14/24 documented as of this encounter
--- OUTSIDE RECORDS SUMMARY | 2025-02-19 15:54 | XMS_ITS | Encounter Summary ---
Author Organization [employer] ([place], [place], [place], [place], [place]) Address [address] [place] [address] Care Team Providers Care Vice President Industrial Relations Name Role Phone Unavailable Primary Care Provider Unavailabl e Encounter Details Date Type Department Care Team (Late st Contact Info) Description 05/03/2019 Transcribed Document [facility] [place] [address] [place] [address] ProviderMg MD [facility] [place] [address] Social History Tobacco Use Types Packs/Day Years Used Date Smoking Tobacco: Never Assessed Sex and Gender Information Value Date Recorded Sex Assigned at Not on file Legal Sex Male 1:09 PM CDT Gender Identity Not on file Sexual Orientation Not on file documented as of this encounter Miscellaneous Notes * Cerner Conversion Note - Historical ProviderMD - 05/03/2019 8:40 AM TRAIN CONDUCTOR Therapy Screen, OT Entered On: 05/03/2019 8:59 [...] NAHUM CORNELIUS OTR/Kaushal - 05/03/2019 8:57 EST Electronically signed by Morales Mejia Conversion Competency Evaluated Nurse Aide Cerner at 06/19/2022 10:50 PM CDT documented in this encounter Plan of Treatment Not on file documented as of this encounter Visit Diagnoses Not on filedocumented in this encounter
--- OUTSIDE RECORDS SUMMARY | 2025-02-19 15:54 | XMS_ITS | Encounter Summary ---
Author Organization [employer] ([place], [place], [place], [place], [place]) Address [address] [place] [address] Care Team Providers Care Packing Machine Feeder Name Role Phone Unavailable Primary Care Provider Unavailabl e Encounter Details Date Type Department Care Team (Late st Contact Info) Description 05/02/2019 Transcribed Document [facility] [place] [facility] [place] [address] ProviderMg MD [facility] [place] [address] Social History Tobacco Use Types Packs/Day Years Used Date Smoking Tobacco: Never Assessed Sex and Gender Information Value Date Recorded Sex Assigned at Not on file Legal Sex Male 1:09 PM CDT Gender Identity Not on file Sexual Orientation Not on file documented as of this encounter Miscellaneous Notes * Cerner Conversion Note - Historical ProviderMD - 05/02/2019 4:10 PM SUPERVISOR AGRICULTURAL EDUCATION Education-Cardiac Topics Entered On: 05/02/2019 18:53 EST Performed On: 05/02/2019 16:10 EST by Chelo Cardenas RN Teaching/Learning Assessment Barriers To Learning : None evident Individuals Taught : Patient, Spouse Readiness to Learn : Explanation Chelo Cardenas RN - 05/02/2019 18:53 EST Electronically signed by Jackie [facility] Conversion Load Blocker Cerner at 06/19/2022 10:59 PM CDT documented in this encounter Plan of Treatment Not on file documented as of this encounter Visit Diagnoses Not on filedocumented in this encounter
--- OUTSIDE RECORDS SUMMARY | 2025-02-19 15:54 | XMS_ITS | Encounter Summary ---
Author Organization [facility] ([place], [place], [place], [place], [place]) Address [address] [place] [address] Care Team Providers Care Metal Die Finisher Name Role Phone Unavailable Primary Care Provider Unavailabl e Encounter Details Date Type Department Care Team (Late st Contact Info) Description 04/12/2019 Transcribed Document [facility] [place] [facility] [place] [address] ProviderMg MD [facility] [place] [id number] Social History Tobacco Use Types Packs/Day Years Used Date Smoking Tobacco: Never Assessed Sex and Gender Information Value Date Recorded Sex Assigned at Not on file Legal Sex Male 1:09 PM CDT Gender Identity Not on file Sexual Orientation Not on file documented as of this encounter Miscellaneous Notes * Cerner Conversion Note - Mg ProviderMD - 04/12/2019 2:39 PM CONTACT OFFICER UM Authorization Entered On: 04/12/2019 14:40 EST Performed On: 04/12/2019 14:39 EST by MARLENE THORNTON Rn-Utilization Review Primary Insurance Authorization Authorization and Policy Numbers : Insurance 1 Health Plan: ANTHEM HMOPPO Policy Number: [id number] Authorization Number: Insurance 2 Health Plan: MEDICARE Policy Number: [id number] Authorization Number: Insurance Primary Name : Ruben [...]
--- OUTSIDE RECORDS SUMMARY | 2025-02-19 15:54 | XMS_ITS | Encounter Summary ---
Author Organization [facility] Address [address] [place] [address] Care Team Providers Care Retail Administrative Assistant Name Role Phone Herberth Perez MD Primary Care Provider [phone] Gracia Petersen [employer] Unavailable [phone] Yunior Solorzano MD Unavailable [phone] Ross Baez DO Unavailable [phone] Edith Aleman RN Unavailable Unavailable Encounter Details Date Type Department Care Team (Latest Contact Info) Description 02/03/2025 Anticoagulation - Warfarin Visit [facility] [place] [facility] [address] [facility] [address] [place] [address] Edith Aleman, TITLE AGENT None LVAD (left ventricular assist device) present (CMS/[facility]) (Primary Dx); Anticoagulant long-term use [...] time in the past 12 m [facility], were you homeless or living in [...] drink first t janine in the morning (EYE-TRAIN STARTER) to steady your nerves or to get rid of a hangover? 0 09/19/2021 CAGE Questionnaire Score 0 022 Utilities Answer Date Recorded In the past 12 months has e [employer], gas, oil, or water [employer] threatened to shut off services in your [...] Description 04/22/2025 9:00 AM EST Ancillary Procedure [facility] [place] [address] [place] [address] documented as of this encounter Goals Goal Patient Goal Type Associated Problems Recent Progress Patient-Stated? Author LVAD Short Term Goal General On track( 024 11:53 AM EDT) Yes Katrin Oviedo RN Note: - 07/04/23: Patient states he wants to attend a wedding in November in [place] LVAD Lemon Grower Goal General On track( 024 11:53 AM EDT) Yes Katrin Oviedo RN Note: - 07/04/23: Patient states he wants to meet his grandchild when they are born in November documented as of this encounter Procedures Procedure Name Priority Date/Time Associated Diagnosis Comments EXTERNAL PROTHROMBIN TIME (PT)/INR Routine 02/02/2025 documented in this encounter Results * External Prothrombin Time (PT)/INR (02/02/2025) External INR - Internormal Ratio 2.7 External Prothrombin Time (PT) Blood Venous blood specimen / Unknown 02/02/2025 [facility] Provider POINT OF CARE TEST ENTER/SHERIF T ORDERABLES Final Result documented in this encounter Visit Diagnoses Diagnosis LVAD (left ventricular assist device) present ([facility])- Primary Anticoagulant long-term use Encounter [...] documented as of this encounter Care Teams Retail Administrative Assistant Relationship Specialty Start Date End Date Herberth Perez MD [address] [place] [address] [place] [address] PCP - General 07/17/20 Gracia Petersen APRN [address] [place] [address] Nurse Practitioner Internal Medicine 08/06/20 Yunior Solorzano MD [address] [place] [phone] Consulting Physician Gastroenterology 07/18/22 Ross Baez DO [address] [address] Surgeon Cardiothoracic Surgery 07/18/22 Edith Aleman, TITLE AGENT None VAD Coordinator 10/14/24 documented as of this encounter
--- OUTSIDE RECORDS SUMMARY | 2025-02-19 15:54 | XMS_ITS | Encounter Summary ---
Author Organization [employer] ([place], [place], [place], [place], [place]) Address [address] [place] [address] Care Team Providers Care Door Hanger Name Role Phone Unavailable Primary Care Provider Unavailabl e Encounter Details Date Type Department Care Team (Late st Contact Info) Description 05/02/2019 Transcribed Document [facility] [place] [facility] [place] [address] ProviderMg MD [facility] [place] [address] Social History Tobacco Use Types Packs/Day Years Used Date Smoking Tobacco: Never Assessed Sex and Gender Information Value Date Recorded Sex Assigned at Not on file Legal Sex Male 1:09 PM CDT Gender Identity Not on file Sexual Orientation Not on file documented as of this encounter Miscellaneous Notes * Cerner Conversion Note - Historical ProviderMD - 05/02/2019 5:00 PM HOSPITAL PRODUCT SPECIALIST Chart Check - Review Order Profile Entered [...]
--- OUTSIDE RECORDS SUMMARY | 2025-02-19 15:54 | XMS_ITS | Encounter Summary ---
Author Organization [employer] ([place], [place], [place], [place], [place]) Address [address] [place] [address] Care Team Providers Care Cottage Attendant Name Role Phone Unavailable Primary Care Provider Unavailabl e Encounter Details Date Type Department Care Team (Late st Contact Info) Description 04/12/2019 Transcribed Document [facility] [place] [address] [place] [address] ProviderMg MD [place] [address] Social History Tobacco Use Types Packs/Day Years Used Date Smoking Tobacco: Never Assessed Sex and Gender Information Value Date Recorded Sex Assigned at Not on file Legal Sex Male 1:09 PM CDT Gender Identity Not on file Sexual Orientation Not on file documented as of this encounter Miscellaneous Notes * Cerner Conversion Note - Historical ProviderMD - 04/12/2019 9:28 AM CLINICAL RESEARCH ANALYST Therapy Screen, OT Entered On: 04/12/2019 11:09 [...]
--- OUTSIDE RECORDS SUMMARY | 2025-02-19 15:54 | XMS_ITS | Encounter Summary ---
Author Organization Healthcare Address [address] [place] [address] Care Team Providers Care Precipitator Supervisor Name Role Phone Herberth Perez MD Primary Care Provider [phone] Gracia Petersen SCREEN HANDLER Unavailable [phone] Yunior Solorzano MD Unavailable [phone] Ross Baez DO Unavailable [phone] Edith Aleman RN Unavailable Unavailable Encounter Details Date Type Department Care Team (Late st Contact Info) Description 02/03/2025 [facility] [place] [address] [place] [address] Edith Aleman, MONTESSORI PARAPROFESSIONAL None Low iron; Iron deficiency Social History Tobacco Use Types Packs/Day Years [...] drink first t janine in the morning (EYE-EMBROIDERY MACHINE OPERATOR) to steady your nerves or to [...] Description 04/22/2025 9:00 AM EST Ancillary Procedure [facility] [place] [address] [place] [address] documented as of this encounter Goals Goal Patient Goal Type Associated Problems Recent Progress Patient-Stated? Author LVAD Short Term Goal General On track( 11:53 AM EDT) Yes Katrin Oviedo, RN Note: - 07/04/23: Patient states he wants to attend a wedding in November in [place] LVAD Reexaminer Goal General On track( 024 11:53 AM EDT) Yes Katrin Oviedo RN Note: - 07/04/23: Patient states he wants to meet his grandchild when they are born in November documented as of this encounter Visit Diagnoses Diagnosis Low iron Unspecified iron deficiency anemia Iron deficiency Disorders of iron metabolism documented in this [...] documented as of this encounter Care Teams Precipitator Supervisor Relationship Specialty Start Date End Date Herberth Perez MD [address] [place] [address] [place] [address] PCP - General 07/17/20 Gracia Petersen APRN [address] [place] [phone] Nurse Practitioner Internal Medicine 08/06/20 Yunior Solorzano MD [address] [facility] [address] [place] [address] Consulting Physician Gastroenterology 07/18/22 Ross Baez, [address] [phone] Surgeon Cardiothoracic Surgery 07/18/22 Edith Aleman, MONTESSORI PARAPROFESSIONAL None VAD Coordinator 10/14/24 documented as of this encounter
--- OUTSIDE RECORDS SUMMARY | 2025-02-19 15:54 | XMS_ITS | Encounter Summary ---
Author Organization [employer] ([place], [place], [place], [place], [place]) Address [address] [place] [address] Care Team Providers Care Maintenance Mechanic Supervisor Name Role Phone Unavailable Primary Care Provider Unavailabl e Encounter Details Date Type Department Care Team (Late st Contact Info) Description 04/13/2019 Transcribed Document [facility] [place] Family Medicine [facility] [place] [address] ProviderMg MD [facility] [place] [id number] Social History Tobacco Use Types Packs/Day Years Used Date Smoking Tobacco: Never Assessed Sex and Gender Information Value Date Recorded Sex Assigned at Not on file Legal Sex Male 1:09 PM CDT Gender Identity Not on file Sexual Orientation Not on file documented as of this encounter Miscellaneous Notes * Cerner Conversion Note - Mg ProviderMD - 04/13/2019 5:29 PM TRADE UNION OFFICIAL Final Discharge Planning Entered On: 04/13/2019 17:29 EST Performed On: 04/13/2019 17:29 EST by ADELAIDE SOLARES, Rn-Game Show Host Final Discharge Planning Discharge Arrangements : Patient Post-Acute Information Patient Name: JOSE PEARSON Gender: Male : [birth year] Age: 48 Years No Post-Acute Placement(s) Listed No Post-Acute Service(s) Listed No [place] Referral(s) Listed Discharge To Care Management : Home/Residential/Residential or Self Care -01 ADELAIDE SOLARES, Rn-Game Show Host - 04/13/2019 17:29 EST documented in this encounter Plan of Treatment Not on file documented as of this encounter Visit Diagnoses Not on filedocumented in this encounter
--- OUTSIDE RECORDS SUMMARY | 2025-02-19 15:54 | XMS_ITS | Encounter Summary ---
Author Organization [employer] ([place], [place], [place], [place], [place]) Address [address] [place] [address] Care Team Providers Care Demo Coordinator Name Role Phone Unavailable Primary Care Provider Unavailabl e Encounter Details Date Type Department Care Team (Late st Contact Info) Description 05/02/2019 Transcribed Document [facility] [place] Family Medicine [facility] [place] [address] ProviderMg MD [facility] [place] [address] Social History Tobacco Use Types Packs/Day Years Used Date Smoking Tobacco: Never Assessed Sex and Gender Information Value Date Recorded Sex Assigned at Not on file Legal Sex Male 1:09 PM CDT Gender Identity Not on file Sexual Orientation Not on file documented as of this encounter Miscellaneous Notes * Cerner Conversion Note - Historical ProviderMD - 05/02/2019 4:10 PM GROUNDS CREW SUPERVISOR Education-(VTE) / (DVT) Entered On: 05/02/2019 18:53 EST Performed On: 05/02/2019 16:10 EST by Chelo Cardenas RN Teaching/Learning Assessment Barriers To Learning : None evident Individuals Taught : Patient, Spouse Readiness to Learn : Explanation Chelo Cardenas RN - 05/02/2019 18:53 EST Electronically signed by Jackie [facility] Conversion Analytical Statistician Cerner at 06/19/2022 10:54 PM CDT documented in this encounter Plan of Treatment Not on file documented as of this encounter Visit Diagnoses Not on filedocumented in this encounter
--- OUTSIDE RECORDS SUMMARY | 2025-02-19 15:54 | XMS_ITS | Encounter Summary ---
Author Organization Healthcare Address [address] [place] [address] Care Team Providers Care Photocomposing Keyboard Operator Name Role Phone Herberth Perez MD Primary Care Provider [phone] Gracia Petersen CUFF SETTER OVERLOCK Unavailable [phone] Yunior Solorzano MD Unavailable [phone] Ross Baez DO Unavailable [phone] Edith Aleman RN Unavailable Unavailable Encounter Details Date Type Department Care Team (Late st Contact Info) Description 01/29/2025 [facility] Heart and [facility] [place] [address] [place] [phone] Edith Aleman, TERMINAL OPERATIONS MANAGER None Low iron (Primary Dx); Iron deficiency Social History Tobacco Use Types [...] time in the past 12 m [facility], were you homeless or living [...] drink first t janine in the morning (EYE-PUBLIC POLICY ASSOCIATE) to steady your nerves or to get [...] Description 04/22/2025 9:00 AM EST Ancillary Procedure [facility] [place] [address] [place] [address] documented as of this encounter Goals Goal Patient Goal Type Associated Problems Recent Progress Patient-Stated? Author LVAD Short Term Goal General On track( 11:53 AM EDT) Yes Katrin Oviedo, RN Note: - 07/04/23: Patient states he wants to attend a wedding in November in [place] LVAD Retirement Goal General On track( 11:53 AM EDT) Yes Katrin Oviedo RN Note: - 07/04/23: Patient states he wants to meet his grandchild when they are born in November documented as of this encounter Visit Diagnoses Diagnosis Low iron- Primary Unspecified iron deficiency anemia Iron deficiency Disorders [...] documented as of this encounter Care Teams Photocomposing Keyboard Operator Relationship Specialty Start Date End Date Herberth Perez MD [address] [place] [address] [place] [address] PCP - General 07/17/20 Gracia Petersen APRN [address] [place] [address] Nurse Practitioner Internal Medicine 08/06/20 Yunior Solorzano MD [address] [place] [address] Consulting Physician Gastroenterology 07/18/22 Ross Baez, DO [address] [phone] Surgeon Cardiothoracic Surgery 07/18/22 Edith Aleman, TERMINAL OPERATIONS MANAGER None VAD Coordinator 10/14/24 documented as of this encounter
--- OUTSIDE RECORDS SUMMARY | 2025-02-19 15:54 | XMS_ITS | Encounter Summary ---
Author Organization [employer] ([place], [place], [place], [place], [place]) Address [address] [place] [address] Care Team Providers Care Loom Overhauler Name Role Phone Unavailable Primary Care Provider Unavailabl e Encounter Details Date Type Department Care Team (Late st Contact Info) Description 04/12/2019 Transcribed Document [facility] [place] Family Medicine [facility] [place] [address] ProviderMg MD [facility] [place] [address] Social History Tobacco Use Types Packs/Day Years Used Date Smoking Tobacco: Never Assessed Sex and Gender Information Value Date Recorded Sex Assigned at Not on file Legal Sex Male 1:09 PM CDT Gender Identity Not on file Sexual Orientation Not on file documented as of this encounter Miscellaneous Notes * Cerner Conversion Note - Historical ProviderMD - 04/12/2019 5:00 PM BENEFITS ANALYST Chart Check - Review Order Profile Entered On: 04/12/2019 19:38 EST Performed On: 04/12/2019 17:00 EST by Mimi Rizzo RN Chart Check Powerplans Initiated/Discontinued as Appropriate : Yes All Active Orders Reviewed : Yes Mimi Rizzo RN - 04/12/2019 19:38 EST documented in this encounter Plan of Treatment Not on file documented as of this encounter Visit Diagnoses Not on filedocumented in this encounter
--- OUTSIDE RECORDS SUMMARY | 2025-02-19 15:54 | XMS_ITS | Encounter Summary ---
Author Organization [facility] Address [address] [place] [address] Care Team Providers Care Debone Processing Supervisor Name Role Phone Herberth Perez MD Primary Care Provider [phone] Gracia Petersen CORE SHAPER SIDES Unavailable [phone] Yunior Solorzano MD Unavailable [phone] Ross Baez DO Unavailable [phone] Edith Aleman RN Unavailable Unavailable Encounter Details Date Type Department Care Team (Latest Contact Info) Description 01/29/2025 Travel Social History Tobacco Use Types Packs/Day [...] drink first t janine in the morning (EYE-CHIEF LEGAL OFFICER) to steady your nerves or to [...] Description 04/22/2025 9:00 AM EST Ancillary Procedure [facility] [place] [address] [place] [address] documented as of this encounter Goals Goal Patient Goal Type Associated Problems Recent Progress Patient-Stated? Author LVAD Short Term Goal General On track( 11:53 AM EDT) Yes Katrin Oviedo, RN Note: - 07/04/23: Patient states he wants to attend a wedding in November in [place] LVAD Therapy Administrative Assistant Goal General On track( 024 11:53 AM [...] documented as of this encounter Care Teams Debone Processing Supervisor Relationship Specialty Start Date End Date Herberth Perez MD [address] [place], [place] [id number] PCP - General 07/17/20 Gracia Petersen APRN [address] [place] [phone] Nurse Practitioner Internal Medicine 08/06/20 Yunior Solorzano MD [address] [place] [address] Consulting Physician Gastroenterology 07/18/22 Ross Baez DO [address] [address] Surgeon Cardiothoracic Surgery 07/18/22 Edith Aleman, CONTAMINATED LAND CONSULTANT None VAD Coordinator 10/14/24 documented as of this encounter
--- OUTSIDE RECORDS SUMMARY | 2025-02-19 15:54 | XMS_ITS | Encounter Summary ---
Author Organization [employer] ([place], [place], [place], [place], [place]) Address [address] [place] [address] Care Team Providers Care Simplex Operator Name Role Phone Unavailable Primary Care Provider Unavailabl e Encounter Details Date Type Department Care Team (Late st Contact Info) Description 04/11/2019 Transcribed Document [facility] [place] [facility] [place] [address] ProviderMg MD [facility] [place], [place] [address] Social History Tobacco Use Types Packs/Day Years Used Date Smoking Tobacco: Never Assessed Sex and Gender Information Value Date Recorded Sex Assigned at Not on file Legal Sex Male 1:09 PM CDT Gender Identity Not on file Sexual Orientation Not on file documented as of this encounter Miscellaneous Notes * Cerner Conversion Note - Mg ProviderMD - 04/11/2019 6:01 PM OPTOMETRY ASSISTANT Cardiac and Pulmonary Outpatient [place] Entered On: 04/19/2019 14:17 EST Performed On: 04/19/2019 14:17 EST by EDITH CHAVIS RN Cardiac and Pulmonary Outpatient [place] Phase 2 Cardiac Rehab Criteria Met : Heart failure (HF) Cardiac Outpatient Rehab Evaluation Comment : Order faxed to [facility] due to pts location. EDITH CHAVIS RN - 04/19/2019 14:17 EST Electronically signed by Jackie [facility] Conversion Senior Electrical Estimator Cerner at 06/19/2022 11:06 PM CDT documented in this encounter Plan of Treatment Not on file documented as of this encounter Visit Diagnoses Not on filedocumented in this encounter
--- OUTSIDE RECORDS SUMMARY | 2025-02-19 15:54 | XMS_ITS | Encounter Summary ---
Author Organization [employer] ([place], [place], [place], [place], [place]) Address [address] [place] [address] Care Team Providers Care Building Construction Teacher Name Role Phone Unavailable Primary Care Provider Unavailabl e Encounter Details Date Type Department Care Team (Late st Contact Info) Description 05/02/2019 Transcribed Document [facility] [place] Family Medicine [facility] [place] [address] ProviderMg MD [facility] [place] [address] Social History Tobacco Use Types Packs/Day Years Used Date Smoking Tobacco: Never Assessed Sex and Gender Information Value Date Recorded Sex Assigned at Not on file Legal Sex Male 1:09 PM CDT Gender Identity Not on file Sexual Orientation Not on file documented as of this encounter Miscellaneous Notes * Cerner Conversion Note - Mg ProviderMD - 05/02/2019 4:10 PM EXERCISE PLANNER Nutrition Assessment Entered On: 05/03/2019 8:32 EST [...] Arias RD, LD - 05/03/2019 13:17 EST documented in this encounter Plan of Treatment Not on file documented as of this encounter Visit Diagnoses Not on filedocumented in this encounter
--- OUTSIDE RECORDS SUMMARY | 2025-02-19 15:54 | XMS_ITS | Encounter Summary ---
Author Organization [employer] ([place], [place], [place], [place], [place]) Address [address] [place] [address] Care Team Providers Care Helminthology Teacher Name Role Phone Unavailable Primary Care Provider Unavailabl e Encounter Details Date Type Department Care Team (Late st Contact Info) Description 04/13/2019 Transcribed Document [facility] [place] [facility] [place] [address] ProviderMg MD [address] [place] [id number] Social History Tobacco Use Types Packs/Day Years Used Date Smoking Tobacco: Never Assessed Sex and Gender Information Value Date Recorded Sex Assigned at Not on file Legal Sex Male 1:09 PM CDT Gender Identity Not on file Sexual Orientation Not on file documented as of this encounter Miscellaneous Notes * Cerner Conversion Note - Mg Ritchie MD - 04/13/2019 12:35 PM FLIGHT/TRANSPORT NURSE Patient Education Materials Follows:Medicine and Rehabilitation Cardiac [...] 11/29/2008 Document Revised: 09/12/2017 Document Reviewed: 01/04/2016 [employer] Patient Education ? 2019 [employer] Preventive Health Heart Disease Prevention Heart [...] out more about heart disease, visit the [place] [employer]'s website at www.americanheart.org This information is not intended to replace advice given to you by your health care provider. Make sure you discuss any questions you have with your health care provider. Document Released: 10/04/2004 Document Revised: 07/20/2016 Document Reviewed: 04/16/2014 [employer] Interactive Patient Education ? 2019 [employer] documented in this encounter Plan of Treatment Not on file documented as of this encounter Visit Diagnoses Not on filedocumented in this encounter
--- OUTSIDE RECORDS SUMMARY | 2025-02-19 15:54 | XMS_ITS | Encounter Summary ---
Author Organization [employer] ([place], [place], [place], [place], [place]) Address [address] [place] [address] Care Team Providers Care Branch Account Manager Name Role Phone Unavailable Primary Care Provider Unavailabl e Encounter Details Date Type Department Care Team (Late st Contact Info) Description 06/26/2018 Transcribed Document [facility] [place] [facility] [place] [address] ProviderMg [place] [facility] [place] [address] Social History Tobacco Use Types [...] On: 06/26/2018 14:26 EDT by DENVER NICOLE fur cleaner Documentation Discharge Date/Time : 06/26/2018 14:42 EDT [...] DENVER NICOLE RN - 06/26/2018 14:26 EDT Electronically signed by Jackie, Morales Conversion Sales And Marketing Representative Cerner at 06/19/2022 11:10 PM CDT documented in this encounter Plan of Treatment Not on file documented as of this encounter Visit Diagnoses Not on filedocumented in this encounter
--- OUTSIDE RECORDS SUMMARY | 2025-02-19 15:54 | XMS_ITS | Encounter Summary ---
Author Organization [employer] ([place], [place], [place], [place], [place]) Address [address] [place] [address] Care Team Providers Care Adolescent Medicine Specialist Name Role Phone Unavailable Primary Care Provider Unavailabl e Encounter Details Date Type Department Care Team (Late st Contact Info) Description 04/13/2019 Transcribed Document [facility] [place] Medicine [facility] [place] [address] ProviderMg MD [facility] [place] [address] Social History Tobacco Use Types Packs/Day Years Used Date Smoking Tobacco: Never Assessed Sex and Gender Information Value Date Recorded Sex Assigned at Not on file Legal Sex Male 1:09 PM CDT Gender Identity Not on file Sexual Orientation Not on file documented as of this encounter Miscellaneous Notes * Cerner Conversion Note - Mg ProviderMD - 04/13/2019 12:46 PM BADGER DISTILLER OPERATOR Nursing Discharge Summary Entered On: 04/13/2019 12:46 EST Performed On: 04/13/2019 12:46 EST by Peg Huynh ice cream shop associate Documentation Discharge Date/Time : 04/13/2019 13:13 EST Patient Disposition, General : Discharge Discharge To : Home with ambulatory/outpatient follow-up Peg Huynh RN - 04/13/2019 12:46 EST Electronically signed by Jackie [facility] Conversion User Experience Lead Jessica at 06/19/2022 11:04 PM CDT documented in this encounter Plan of Treatment Not on file documented as of this encounter Visit Diagnoses Not on filedocumented in this encounter
--- OUTSIDE RECORDS SUMMARY | 2025-02-19 15:54 | XMS_ITS | Encounter Summary ---
Author Organization [employer] ([place], [place], [place], [place], [place]) Address [address] [place] [address] Care Team Providers Care Sow Farm Manager Name Role Phone Unavailable Primary Care Provider Unavailabl e Encounter Details Date Type Department Care Team (Late st Contact Info) Description 04/12/2019 Transcribed Document [facility] [place] Family Medicine [facility] [place] [address] ProviderMg [place] [facility] [place] [address] Social History Tobacco Use Types Packs/Day Years Used Date Smoking Tobacco: Never Assessed Sex and Gender Information Value Date Recorded Sex Assigned at Not on file Legal Sex Male 1:09 PM CDT Gender Identity Not on file Sexual Orientation Not on file documented as of this encounter Miscellaneous Notes * [employer]ner Conversion Note - Historical ProviderMD - 04/12/2019 2:00 AM BEVERAGE STEWARD Stockroom Keeper Details Entered On: 04/12/2019 1:10 EST Performed [...]
--- OUTSIDE RECORDS SUMMARY | 2025-02-19 15:54 | XMS_ITS | Encounter Summary ---
Author Organization [facility] Address [address] [place] [address] Care Team Providers Care Underwear Trimmer Name Role Phone Herberth Perez MD Primary Care Provider [phone] Gracia Petersen CHOCOLATE MOLDER Unavailable [phone] Yunior Solorzano MD Unavailable [phone] Ross Baez DO Unavailable [phone] Edith Aleman RN Unavailable Unavailable Reason for Referral * Clinic-Administered Medication (Routine) - Pending Review Specialty Diagnoses / Procedures Referred By Yared díaz Referred To Contact Diagnoses Low iron Iron deficiency Cierra Orellana MD [address] [place] [address] Phone: tel: fax: Referral ID Status Reason Start Date Expiration Date V isits Requested Visits Authorized [id number] Pending Review 02/03/2025 08/05/2026 4 4 Encounter Details Date Type Department Care Team (Late st Contact Info) Description 02/03/2025 Refill [facility] [place] [address] [facility] 1st Floor [address] [place] [address] Edith Aleman, PROFESSOR OF FAMILY MEDICINE None Low iron; Iron deficiency Social History [...] any time in the past 12 m [facility], were you homeless or living in [...] drink first t janine in the morning (EYE-COST ESTIMATOR) to steady your nerves or to get rid of a hangover? 0 09/19/2021 CAGE Questionnaire Score 0 022 Utilities Answer Date Recorded In the past 12 months has e [employer], gas, oil, or water [employer] threatened to shut off services in your [...] Description 04/22/2025 9:00 AM EST Ancillary Procedure [facility] [place] [address] [place] [address] documented as of this encounter Goals Goal Patient Goal Type Associated Problems Recent Progress Patient-Stated? Author LVAD Short Term Goal General On track( 024 11:53 AM EDT) Yes Katrin Oviedo, RN Note: - 07/04/23: Patient states he wants to attend a wedding in November in [place] LVAD Manufacturing Cost Estimator Goal General On track( 024 11:53 AM [...] documented as of this encounter Care Teams Underwear Trimmer Relationship Specialty Start Date End Date Herberth Perez MD [address] [place] [address] [place] [address] PCP - General 07/17/20 Gracia Petersen APRN [address] [place] [address] Nurse Practitioner Internal Medicine 08/06/20 Yunior Solorzano MD [address] [place] [address] Consulting Physician Gastroenterology 07/18/22 Ross Baez DO [address] [address] Surgeon Cardiothoracic Surgery 07/18/22 Edith Aleman, PROFESSOR OF FAMILY MEDICINE None VAD Coordinator 10/14/24 documented as of this encounter
--- OUTSIDE RECORDS SUMMARY | 2025-02-19 15:54 | XMS_ITS | Encounter Summary ---
Author Organization [employer] ([place], [place], [place], [place], [place]) Address [address] [place] [address] Care Team Providers Care Project Manager Process Development Name Role Phone Unavailable Primary Care Provider Unavailabl e Encounter Details Date Type Department Care Team (Late st Contact Info) Description 04/13/2019 Transcribed Document [facility] [place] [facility] [address] ProviderMg MD [facility] [place] [id number] Social History Tobacco Use Types Packs/Day Years Used Date Smoking Tobacco: Never Assessed Sex and Gender Information Value Date Recorded Sex Assigned at Not on file Legal Sex Male 1:09 PM CDT Gender Identity Not on file Sexual Orientation Not on file documented as of this encounter Miscellaneous Notes * [employer]ner Conversion Note - Mg Ritchie MD - 04/13/2019 9:39 AM AIRLINE TRANSPORT PILOT Patient: JOSE PEARSON Age: 48 years Sex: [...] Pain (Mild 1-3) Xarelto: 10 mg, Oral, [id number] Zofran: 4 mg, IV Push, Q6H, PRN: [...] f/U with Dr Hobbs in one wk. Electronically signed by Morales Mejia Conversion Caustic Purification Operator Cerner at 06/19/2022 11:01 PM CDT documented in this encounter Plan of Treatment Not on file documented as of this encounter Visit Diagnoses Not on filedocumented in this encounter
--- OUTSIDE RECORDS SUMMARY | 2025-02-19 15:54 | XMS_ITS | Encounter Summary ---
Author Organization [employer] ([place], [place], [place], [place], [place]) Address [address] [place] [address] Care Team Providers Care Screening Tech Name Role Phone Unavailable Primary Care Provider Unavailabl e Encounter Details Date Type Department Care Team (Late st Contact Info) Description 04/12/2019 Transcribed Document [facility] [place] Family Medicine On license of [facility] [place] [address] ProviderMg MD On [facility] [place] [facility] [place] [address] Social History Tobacco Use Types Packs/Day Years Used Date Smoking Tobacco: Never Assessed Sex and Gender Information Value Date Recorded Sex Assigned at Not on file Legal Sex Male 1:09 PM CDT Gender Identity Not on file Sexual Orientation Not on file documented as of this encounter Miscellaneous Notes * Cerner Conversion Note - Historical ProviderMD - 04/12/2019 5:00 AM EARLY CHILDHOOD COORDINATOR Chart Check - Review Order Profile Entered [...]
--- OUTSIDE RECORDS SUMMARY | 2025-02-19 15:54 | XMS_ITS | Encounter Summary ---
Author Organization [employer] ([place], [place], [place], [place], [place]) Address [address] [place] [address] Care Team Providers Care Tallow Pumper Name Role Phone Unavailable Primary Care Provider Unavailabl e Encounter Details Date Type Department Care Team (Late st Contact Info) Description 04/11/2019 Transcribed Document [facility] [place] [facility] [place] [address] ProviderMg MD [facility] [place] [address] Social History Tobacco Use Types Packs/Day Years Used Date Smoking Tobacco: Never Assessed Sex and Gender Information Value Date Recorded Sex Assigned at Not on file Legal Sex Male 1:09 PM CDT Gender Identity Not on file Sexual Orientation Not on file documented as of this encounter Miscellaneous Notes * Cerner Conversion Note - Mg ProviderMD - 04/11/2019 6:01 PM REVENUE SPECIALIST Nutrition Assessment Entered On: 04/12/2019 10:52 EST [...]
--- OUTSIDE RECORDS SUMMARY | 2025-02-19 15:55 | XMS_ITS | Encounter Summary ---
Author Organization [employer] ([place], [place], [place], [place], [place]) Address [address] [place] [address] Care Team Providers Care Military Cook Name Role Phone Unavailable Primary Care Provider Unavailabl e Encounter Details Date Type Department Care Team (Late st Contact Info) Description 05/08/2019 Transcribed Document [facility] [place] [facility] [place] [address] ProviderMg MD [facility] [place] [address] Social History Tobacco Use Types Packs/Day Years Used Date Smoking Tobacco: Never Assessed Sex and Gender Information Value Date Recorded Sex Assigned at Not on file Legal Sex Male 1:09 PM CDT Gender Identity Not on file Sexual Orientation Not on file documented as of this encounter Miscellaneous Notes * Cerner Conversion Note - Mg ProviderMD - 05/08/2019 3:22 PM THERAPIST'S ASSISTANT UM Authorization Entered On: 05/08/2019 15:23 EST Performed On: 05/08/2019 15:22 EST by CHARLA BARRAZA RN-Utilization Review Primary Insurance Authorization Authorization and Policy Numbers : Insurance 1 Health [facility] Policy Number: Authorization Number: Insurance Primary Name : [employer] Administators [id number] Authorization Status-Primary : Admit approved Authorization Number-Primary : [id number] Number of Days Authorized-Primary : 6 Day(s) Authorized Service Begin Date-Primary : 05/03/2019 EST Authorized Service End Date-Primary : 05/09/2019 EST Authorization Comments-Primary : [employer] approved per Katrin for total of 7 days --- nrd 05/09 Historical Authorization Comments-Primary : Comment 1: Clinicals for CS faxed via Jessica (MARLENE THORNTON Rn-Utilization Review 05/08/2019 14:43) Comment 2: [place] approved per Katrin for 5 days total --- nrd 05/07 (CHARLA BARRAZA, MARYCARMEN-Utilization Review 05/06/2019 13:43) Comment 3: Uploaded continuing stay clinicals (05/06/19) to [facility] via [employer]. (ARMANDO SHANNON, RN-Utilization Review 05/06/2019 12:11) Comment 4: Per [facility], admit approved with auth #[id number] given from 05/03-05/05/19. Next review date 05/06/19. [...]
--- OUTSIDE RECORDS SUMMARY | 2025-02-19 15:55 | XMS_ITS | Encounter Summary ---
Author Organization [email or web address] ([place], [place], [place], [place], [place]) Address [address] [place] [address] Care Team Providers Care Station Captain Name Role Phone Unavailable Primary Care Provider Unavailabl e Encounter Details Date Type Department Care Team (Late st Contact Info) Description 04/13/[address] [facility] [place] Family Medicine [address] [place] [address] ProviderMg MD [facility] [place], [place] [address] Social History Tobacco Use Types Packs/Day Years Used Date Smoking Tobacco: Never Assessed Sex and Gender Information Value Date Recorded Sex Assigned at Not on file Legal Sex Male 1:09 PM CDT Gender Identity Not on file Sexual Orientation Not on file documented as of this encounter Miscellaneous Notes * Cerner Conversion Note - Historical ProviderMD - 04/13/2019 2:00 AM FINANCIAL ANALYST ACCOUNTANT Electricians Top Helper Details Entered On: 04/13/2019 5:10 EST Performed [...]
--- OUTSIDE RECORDS SUMMARY | 2025-02-19 15:55 | XMS_ITS | Encounter Summary ---
Author Organization [employer] ([place], [place], [place], [place], [place]) Address [address] [place] [address] Care Team Providers Care Paint Crew Supervisor Name Role Phone Unavailable Primary Care Provider Unavailabl e Encounter Details Date Type Department Care Team (Late st Contact Info) Description 04/17/2019 Transcribed Document [facility] [place] Family [place] [facility] [place] [address] ProviderMg MD [facility] [place] [id number] Social History Tobacco Use Types Packs/Day Years Used Date Smoking Tobacco: Never Assessed Sex and Gender Information Value Date Recorded Sex Assigned at Not on file Legal Sex Male 1:09 PM CDT Gender Identity Not on file Sexual Orientation Not on file documented as of this encounter Miscellaneous Notes * Cerner Conversion Note - Mg Ritchie MD - 04/17/2019 9:55 AM BUSINESS BANKING RELATIONSHIP MANAGER UM Authorization Entered On: 04/17/2019 9:56 EST Performed On: 04/17/2019 9:55 EST by CHARLA BARRAZA RN-Utilization Review Primary Insurance Authorization Authorization and Policy Numbers : Insurance 1 Health Plan: [facility] Policy Number: [id number] Authorization Number: Insurance 2 Health Plan: MEDICARE Policy Number: [id number] Authorization Number: Insurance Primary Name : Ruben [id number] Authorization Status-Primary : Admit approved Authorization Number-Primary : [id number] Number of Days Authorized-Primary : 1 Day(s) Authorized Service Begin Date-Primary : 04/11/2019 EST Authorized Service End Date-Primary : 04/12/2019 EST Authorization Comments-Primary : [place] approved per Liliana from ARC approved inpt Historical Authorization Comments-Primary : Comment 1: Clinicals and ARC Administrators form faxed to [facility]. (MARLENE THORNTON Rn-Utilization Review 04/12/2019 14:39) CHARLA BARRAZA RN-Utilization Review - 04/17/2019 9:55 EST Electronically signed by Jackie, [facility] Conversion Ski Patrol Cerner at 06/19/2022 11:11 PM CDT documented in this encounter Plan of Treatment Not on file documented as of this encounter Visit Diagnoses Not on filedocumented in this encounter
--- OUTSIDE RECORDS SUMMARY | 2025-02-19 15:55 | XMS_ITS | Encounter Summary ---
Author Organization [employer] ([place], [place], [place], [place], [place]) Address [address] [place] [address] Care Team Providers Care Communications Consultant Name Role Phone Unavailable Primary Care Provider Unavailabl e Encounter Details Date Type Department Care Team (Late st Contact Info) Description 05/08/[address] [facility] [place] Family Medicine [facility] [place] [address] ProviderMg MD [facility] [place] [address] Social History Tobacco Use Types Packs/Day Years Used Date Smoking Tobacco: Never Assessed Sex and Gender Information Value Date Recorded Sex Assigned at Not on file Legal Sex Male 1:09 PM CDT Gender Identity Not on file Sexual Orientation Not on file documented as of this encounter Miscellaneous Notes * Cerner Conversion Note - Historical ProviderMD - 05/08/2019 5:00 PM PHTHALIC ACID PURIFIER Chart Check - Review Order Profile Entered [...]
--- OUTSIDE RECORDS SUMMARY | 2025-02-19 15:55 | XMS_ITS | Encounter Summary ---
Author Organization [employer] ([place], [place], [place], [place], [place]) Address [address] [place] [address] Care Team Providers Care Ferry Operator Name Role Phone Unavailable Primary Care Provider Unavailabl e Encounter Details Date Type Department Care Team (Late st Contact Info) Description 05/09/2019 Transcribed Document [facility] [place] [facility] [place] [address] ProvidergM MD [place] [address] Social History Tobacco Use Types Packs/Day Years Used Date Smoking Tobacco: Never Assessed Sex and Gender Information Value Date Recorded Sex Assigned at Not on file Legal Sex Male 1:09 PM CDT Gender Identity Not on file Sexual Orientation Not on file documented as of this encounter Miscellaneous Notes * Cerner Conversion Note - Historical ProviderMD - 05/09/2019 5:00 PM OFFICE ELECTRICIAN Chart Check - Review Order Profile [...]
--- OUTSIDE RECORDS SUMMARY | 2025-02-19 15:55 | XMS_ITS | Encounter Summary ---
Author Organization [employer] ([place], [place], [place], [place], [place]) Address [address] [place] [address] Care Team Providers Care Bellmaker Name Role Phone Unavailable Primary Care Provider Unavailabl e Encounter Details Date Type Department Care Team (Late st Contact Info) Description 04/13/2019 Transcribed Document [facility] [place] Family Medicine [facility] [place] [address] ProvidergM MD [place] [address] Social History Tobacco Use Types Packs/Day Years Used Date Smoking Tobacco: Never Assessed Sex and Gender Information Value Date Recorded Sex Assigned at Not on file Legal Sex Male 1:09 PM CDT Gender Identity Not on file Sexual Orientation Not on file documented as of this encounter Miscellaneous Notes * Cerner Conversion Note - Mg ProviderMD - 04/13/2019 12:36 PM FINGERPRINT CLERK Nursing Discharge Summary Entered On: 04/13/2019 12:37 EST Performed On: 04/13/2019 12:36 EST by Peg Huynh senior water/wastewater engineer Documentation Discharge Date/Time : 04/13/2019 13:15 EST Patient Disposition, General : Discharge Discharge To : Home with ambulatory/outpatient follow-up Peg Huynh RN - 04/13/2019 12:36 EST Electronically signed by Jackie [facility] Conversion Director Of Clinical Education Jessica at 06/19/2022 11:05 PM CDT documented in this encounter Plan of Treatment Not on file documented as of this encounter Visit Diagnoses Not on filedocumented in this encounter
--- OUTSIDE RECORDS SUMMARY | 2025-02-19 15:55 | XMS_ITS | Encounter Summary ---
Author Organization [email or web address] ([place], [place], [place], [place], [place]) Address [address] [place] [address] Care Team Providers Care Cell Tender Name Role Phone Unavailable Primary Care Provider Unavailabl e Encounter Details Date Type Department Care Team (Late st Contact Info) Description 04/15/2019 Transcribed Document [place] Family Medicine [facility] [place] [address] ProviderMg MD [address] [place] [id number] Social History Tobacco Use Types Packs/Day Years Used Date Smoking Tobacco: Never Assessed Sex and Gender Information Value Date Recorded Sex Assigned at Not on file Legal Sex Male 1:09 PM CDT Gender Identity Not on file Sexual Orientation Not on file documented as of this encounter Miscellaneous Notes * Cerner Conversion Note - Historical ProviderMD - 04/15/2019 11:53 AM SCRAP PREPARER UM Authorization Entered On: 04/15/2019 11:53 EST Performed On: 04/15/2019 11:53 EST by CHARLA BARRAZA RN-Utilization Review Primary Insurance Authorization Authorization and Policy Numbers : Insurance 1 Health Plan: ANTH [facility]OPPO Policy Number: [id number] Authorization Number: Insurance 2 Health Plan: MEDICARE Policy Number: [id number] Authorization Number: Insurance Primary Name : Ruben [id number] Authorization Status-Primary : Awaiting callback Authorized Service Begin Date-Primary : 04/11/2019 EST Historical Authorization Comments-Primary : Comment 1: Clinicals and ARC Administrators form faxed to [facility]. (MARLENE THORNTON Rn-Utilization Review 04/12/2019 14:39) CHARLA BARRAZA RN-Utilization Review - 04/15/2019 11:53 EST Electronically signed by Jackie [facility] Conversion Residential Life Director Jessica at 06/19/2022 11:00 PM CDT documented in this encounter Plan of Treatment Not on file documented as of this encounter Visit Diagnoses Not on filedocumented in this encounter
--- OUTSIDE RECORDS SUMMARY | 2025-02-19 15:55 | XMS_ITS | Encounter Summary ---
Author Organization [employer] ([place], [place], [place], [place], [place]) Address [address] [place] [address] Care Team Providers Care Production Engine Repairer Name Role Phone Unavailable Primary Care Provider Unavailabl e Encounter Details Date Type Department Care Team (Late st Contact Info) Description 2019 Transcribed Document [facility] [place] [facility] [place] [address] ProviderMg MD Count includes the [facility] [place] [id number] Social History Tobacco Use Types Packs/Day Years Used Date Smoking Tobacco: Never Assessed Sex and Gender Information Value Date Recorded Sex Assigned at Not on file Legal Sex Male 1:09 PM CDT Gender Identity Not on file Sexual Orientation Not on file documented as of this encounter Miscellaneous Notes * Cerner Conversion Note - Mg Ritchie MD - 2019 5:45 PM ORACLE OBIEE DEVELOPER Patient: JOSE PEARSON Age: 48 years Sex: [...] will arrange for heart transplant team at [facility]. I had a long discussion with him and his regarding above plan and they feel comfortable going home today.. Electronically signed by Morales Mejia Conversion Precision Mechanical Instrument Maker Jessica at 06/19/2022 10:48 PM CDT documented in this encounter Plan of Treatment Not on file documented as of this encounter Visit Diagnoses Not on filedocumented in this encounter
--- OUTSIDE RECORDS SUMMARY | 2025-02-19 15:55 | XMS_ITS | Encounter Summary ---
Author Organization [employer] ([place], [place], [place], [place], [place]) Address [address] [place] [address] Care Team Providers Care Baker Pie Name Role Phone Unavailable Primary Care Provider Unavailabl e Encounter Details Date Type Department Care Team (Late st Contact Info) Description 05/08/2019 Transcribed Document [facility] [place] [facility] [place] [address] ProviderMg MD [place] [address] Social History Tobacco Use Types Packs/Day Years Used Date Smoking Tobacco: Never Assessed Sex and Gender Information Value Date Recorded Sex Assigned at Not on file Legal Sex Male 1:09 PM CDT Gender Identity Not on file Sexual Orientation Not on file documented as of this encounter Miscellaneous Notes * Cerner Conversion Note - Mg ProviderMD - 05/08/2019 2:43 PM TICKET MACHINE OPERATOR UM Authorization Entered On: 05/08/2019 14:43 EST Performed On: 05/08/2019 14:43 EST by MARLENE THORNTON Rn-Utilization Review Primary Insurance Authorization Authorization and Policy Numbers : Insurance 1 [facility] Plan: [facility] Policy Number: Authorization Number: Insurance Primary Name : ARC Administators [id number] Authorization Status-Primary : Awaiting callback Authorization Number-Primary : [id number] Number of Days Authorized-Primary : 4 Day(s) Authorized Service Begin Date-Primary : 05/03/2019 EST Authorized Service End Date-Primary : 05/07/2019 EST Historical Authorization Comments-Primary : Comment 1: Clinicals for CS faxed via [employer] (MARLENE THORNTON Rn-Utilization Review 05/08/2019 14:43) Comment 2: [place] approved per Katrin for 5 days total --- nrd 3/4 (CHARLA BARRAZA RN-Utilization Review 05/06/2019 13:43) Comment 3: Uploaded continuing stay clinicals (05/06/19) to [facility] via [employer]. (ARMANDO SHANNON, RN-Utilization Review 05/06/2019 12:11) Comment 4: Per [facility], admit approved with auth #[id number] given from 05/03-05/05/19. Next review date 05/06/19. [...]
--- OUTSIDE RECORDS SUMMARY | 2025-02-19 15:55 | XMS_ITS | Encounter Summary ---
Author Organization [employer] ([place], [place], [place], [place], [place]) Address [address] [place] [address] Care Team Providers Care Cycle Director Name Role Phone Unavailable Primary Care Provider Unavailabl e Encounter Details Date Type Department Care Team (Late st Contact Info) Description 05/07/2019 Transcribed Document [facility] [place] [address] [place] [address] ProviderMg MD [facility] [place], [place] [address] Social History Tobacco Use Types Packs/Day Years Used Date Smoking Tobacco: Never Assessed Sex and Gender Information Value Date Recorded Sex Assigned at Not on file Legal Sex Male 1:09 PM CDT Gender Identity Not on file Sexual Orientation Not on file documented as of this encounter Miscellaneous Notes * Cerner Conversion Note - Historical ProviderMD - 05/07/2019 2:00 AM FIELD SERVICES ANALYST Assistant Attorney General Details Entered On: 05/07/2019 8:34 EST Performed [...] Reyna Nicolas, MARYCARMEN - 05/07/2019 8:34 EST documented in this encounter Plan of Treatment Not on file documented as of this encounter Visit Diagnoses Not on filedocumented in this encounter
--- OUTSIDE RECORDS SUMMARY | 2025-02-19 15:55 | XMS_ITS | Encounter Summary ---
Author Organization [employer] ([place], [place], [place], [place], [place]) Address [address] [place] [address] Care Team Providers Care Master Fisher Name Role Phone Unavailable Primary Care Provider Unavailabl e Encounter Details Date Type Department Care Team (Late st Contact Info) Description 05/04/2019 Transcribed Document [facility] [place] Family Medicine [address] [place] [address] ProviderMg MD [facility] [place] [address] Social History Tobacco Use Types Packs/Day Years Used Date Smoking Tobacco: Never Assessed Sex and Gender Information Value Date Recorded Sex Assigned at Not on file Legal Sex Male 1:09 PM CDT Gender Identity Not on file Sexual Orientation Not on file documented as of this encounter Miscellaneous Notes * Cerner Conversion Note - Historical ProviderMD - 05/04/2019 5:00 AM DRY LUMBER GRADER Height and Weight, Routine Entered On: 05/04/2019 6:35 EST Performed On: 05/04/2019 5:00 EST by Carlos Ojeda RN Height and Weight, Routine Routine Weight Source : Chair scale Routine Weight Entry Format : Metric Routine Weight, Kilograms : 104.5 kg(Converted to: 230 lb 6 oz) Routine Weight Calculation : 104.5 kg Height Source : Stated Height Entry Format : Butts Height, Feet : 6 ft Height, Inches : 0 Inch Clinical Height : 182.88 cm Body Surface Area (BSA), Routine : 2.26 m2 Body Mass Index (BMI), Routine : 31.25 kg/m2 Carlos Ojeda RN - 05/04/2019 6:34 EST Electronically signed by Jackie [facility] Conversion Drapery Head Former Cerner at 06/19/2022 11:02 PM CDT documented in this encounter Plan of Treatment Not on file documented as of this encounter Visit Diagnoses Not on filedocumented in this encounter
--- OUTSIDE RECORDS SUMMARY | 2025-02-19 15:55 | XMS_ITS | Encounter Summary ---
Author Organization [employer] ([place], [place], [place], [place], [place]) Address [address] [place] [address] Care Team Providers Care Camera Assembler Name Role Phone Unavailable Primary Care Provider Unavailabl e Encounter Details Date Type Department Care Team (Late st Contact Info) Description 05/08/2019 Transcribed Document [facility] [place] [address] [place] [address] ProviderMg MD [facility] [place] [address] Social History Tobacco Use Types Packs/Day Years Used Date Smoking Tobacco: Never Assessed Sex and Gender Information Value Date Recorded Sex Assigned at Not on file Legal Sex Male 1:09 PM CDT Gender Identity Not on file Sexual Orientation Not on file documented as of this encounter Miscellaneous Notes * Cerner Conversion Note - Mg ProviderMD - 05/08/2019 5:59 PM ART HANDLER Cardiac and Pulmonary Outpatient [place] Entered On: 05/14/2019 15:44 EDT Performed On: 05/14/2019 15:44 EDT by EDITH CHAVIS sawmill moulder operator and Pulmonary Outpatient [place] Phase 2 Cardiac Rehab Criteria Met : Heart failure (HF) Cardiac Outpatient Rehab Evaluation Comment : Order faxed to [place] due to pts location. EDITH CHAVIS RN - 05/14/2019 15:44 EDT documented in this encounter Plan of Treatment Not on file documented as of this encounter Visit Diagnoses Not on filedocumented in this encounter
--- OUTSIDE RECORDS SUMMARY | 2025-02-19 15:55 | XMS_ITS | Encounter Summary ---
Author Organization [employer] ([place], [place], [place], [place], [place]) Address [address] [place] [address] Care Team Providers Care Tannery Gummer Name Role Phone Unavailable Primary Care Provider Unavailabl e Encounter Details Date Type Department Care Team (Late st Contact Info) Description 04/13/2019 Transcribed Document [facility] [place] [facility] [place] [address] ProviderMg MD [facility] [place] [address] Social History Tobacco Use Types Packs/Day Years Used Date Smoking Tobacco: Never Assessed Sex and Gender Information Value Date Recorded Sex Assigned at Not on file Legal Sex Male 1:09 PM CDT Gender Identity Not on file Sexual Orientation Not on file documented as of this encounter Miscellaneous Notes * Cerner Conversion Note - Historical ProviderMD - 04/13/2019 5:00 AM MACHINE STONECUTTER Height and Weight, Routine Entered On: 04/13/2019 5:17 EST Performed On: 04/13/2019 5:00 EST by Duncan Rudolph Rn-Resource Height and Weight, Routine Routine Weight Source : Bed scale Routine Weight Entry Format : Metric Routine Weight, Kilograms : 112.4 kg(Converted to: 247 lb 13 oz) Routine Weight Calculation : 112.4 kg Height Source : Stated Height Entry Format : [place] Height, Feet : 6 ft Height, Inches : 2 Inch Clinical Height : 187.96 cm Body Surface Area (BSA), Routine : 2.38 m2 Body Mass Index (BMI), Routine : 31.82 kg/m2 Duncan Rudolph Rn-Resource - 04/13/2019 5:15 EST Electronically signed by Jackie [facility] Conversion Ve Teacher Cerner at 06/19/2022 11:08 PM CDT documented in this encounter Plan of Treatment Not on file documented as of this encounter Visit Diagnoses Not on filedocumented in this encounter
--- OUTSIDE RECORDS SUMMARY | 2025-02-19 15:55 | XMS_ITS | Encounter Summary ---
Author Organization [employer] ([place], [place], [place], [place], [place]) Address [address] [place] [address] Care Team Providers Care Wire Splicer Name Role Phone Unavailable Primary Care Provider Unavailabl e Encounter Details Date Type Department Care Team (Late st Contact Info) Description 05/07/[address] [facility] [place] [address] [place] [address] ProviderMg MD [facility] [place] [address] Social History Tobacco Use Types Packs/Day Years Used Date Smoking Tobacco: Never Assessed Sex and Gender Information Value Date Recorded Sex Assigned at Not on file Legal Sex Male 1:09 PM CDT Gender Identity Not on file Sexual Orientation Not on file documented as of this encounter Miscellaneous Notes * Cerner Conversion Note - Historical ProviderMD - 05/07/2019 1:45 PM COORDINATOR OF HEALTH SERVICES Spiritual Care Short Form Entered On: 05/07/2019 17:02 EST Performed On: 05/07/2019 13:45 EST by BETITO PRASAD Chaplain-Non Cert General Information, Spiritual Care Spiritual Care Referred by : Gallery Or Museum Attendant initiated Reason for Visit : Initial Ministry Provided to : Patient, Family/Significant other Intervention/Comment/Summary Points : Routine visit conducted by Spiritual Ring Sorter BETITO Red Chaplain-Non Cert - 05/07/2019 17:01 EST documented in this encounter Plan of Treatment Not on file documented as of this encounter Visit Diagnoses Not on filedocumented in this encounter
--- OUTSIDE RECORDS SUMMARY | 2025-02-19 15:55 | XMS_ITS | Encounter Summary ---
Author Organization [employer] ([place], [place], [place], [place], [place]) Address [address] [place] [address] Care Team Providers Care Refrigerator Assembler Name Role Phone Unavailable Primary Care Provider Unavailabl e Encounter Details Date Type Department Care Team (Late st Contact Info) Description 04/17/2019 Transcribed Document [facility] [place] [facility] [place] [address] ProviderMg MD [facility] [place] [id number] Social History Tobacco Use Types Packs/Day Years Used Date Smoking Tobacco: Never Assessed Sex and Gender Information Value Date Recorded Sex Assigned at Not on file Legal Sex Male 1:09 PM CDT Gender Identity Not on file Sexual Orientation Not on file documented as of this encounter Miscellaneous Notes * Cerner Conversion Note - Mg ProviderMD - 04/17/2019 12:18 PM LEADERSHIP PROGRAM INTERNSHIP UM Authorization Entered On: 04/17/2019 12:19 EST Performed On: 04/17/2019 12:18 EST by Trudi Gaona Rn-Utilization Review Primary Insurance Authorization Authorization and Policy Numbers : Insurance 1 Health Plan: AN[employer] Policy Number: [id number] Authorization Number: [id number] Insurance 2 Health Plan: MEDICARE Policy Number: [id number] Authorization Number: Insurance Primary Name : Ruben [id number] Authorization Status-Primary : Admit approved Authorization Number-Primary : [id number] Number of Days Authorized-Primary : 1 Day(s) Authorized Service Begin Date-Primary : 04/11/2019 EST Authorized Service End Date-Primary : 04/12/2019 EST Historical Authorization Comments-Primary : Comment 1: Ruben approved per Liliana from [facility] approved inpt (CHARLA BARRAZA RN-Utilization Review 04/17/2019 09:55) Comment 2: Clinicals and [facility] Administrators form faxed to [facility]. (MARLENE THORNTON, Rn-Utilization Review 04/12/2019 14:39) Trudi Gaona Rn-Utilization Review - 04/17/2019 12:18 EST documented in this encounter Plan of Treatment Not on file documented as of this encounter Visit Diagnoses Not on filedocumented in this encounter
--- OUTSIDE RECORDS SUMMARY | 2025-02-19 15:55 | XMS_ITS | Encounter Summary ---
Author Organization [email or web address] ([place], [place], [place], [place], [place]) Address [address] [place] [address] Care Team Providers Care Rounding Machine Operator Name Role Phone Unavailable Primary Care Provider Unavailabl e Encounter Details Date Type Department Care Team (Late st Contact Info) Description 05/08/2019 Transcribed Document [facility] [place] [facility] [place] [address] ProviderMg MD [facility] [place] [address] Social History Tobacco Use Types Packs/Day Years Used Date Smoking Tobacco: Never Assessed Sex and Gender Information Value Date Recorded Sex Assigned at Not on file Legal Sex Male 1:09 PM CDT Gender Identity Not on file Sexual Orientation Not on file documented as of this encounter Miscellaneous Notes * Cerner Conversion Note - Mg ProviderMD - 05/08/2019 2:43 PM INSTRUCTOR ADJUNCT PHARMACY TECHNICIAN UM Authorization Entered On: 05/08/2019 14:43 EST Performed On: 05/08/2019 14:43 EST by MARLENE THORNTON Rn-Utilization Review Primary Insurance Authorization Authorization and Policy Numbers : Insurance 1 [facility] Policy Number: Authorization Number: Insurance Primary Name : [facility] Administators [id number] Authorization Status-Primary : Admit approved Authorization Number-Primary : [id number] Number of Days Authorized-Primary : 4 Day(s) Authorized Service Begin Date-Primary : 05/03/2019 EST Authorized Service End Date-Primary : 05/07/2019 EST Authorization Comments-Primary : Clinicals for CS faxed via [employer] Historical Authorization Comments-Primary : Comment 1: [place] approved per Katrin for 5 days total --- nrd 3/4 (CHARLA BARRAZA RN-Utilization Review 05/06/2019 13:43) Comment 2: Uploaded continuing stay clinicals (05/06/19) to [employer] via [employer]. (ARMANDO SHANNON, RN-Utilization Review 05/06/2019 12:11) Comment 3: Per [facility], admit approved with auth #[id number] given from 05/03-05/05/19. Next review date 05/06/19. [...]
--- OUTSIDE RECORDS SUMMARY | 2025-02-19 15:55 | XMS_ITS | Encounter Summary ---
Author Organization [employer] ([place], [place], [place], [place], [place]) Address [address] [place] [address] Care Team Providers Care Pediatric Nurse Name Role Phone Unavailable Primary Care Provider Unavailabl e Encounter Details Date Type Department Care Team (Late st Contact Info) Description 05/08/2019 Transcribed Document [facility] Family Medicine [facility] [place] [address] ProviderMg MD [facility] [place] [address] Social History Tobacco Use Types Packs/Day Years Used Date Smoking Tobacco: Never Assessed Sex and Gender Information Value Date Recorded Sex Assigned at Not on file Legal Sex Male 1:09 PM CDT Gender Identity Not on file Sexual Orientation Not on file documented as of this encounter Miscellaneous Notes * Cerner Conversion Note - Historical ProviderMD - 05/08/2019 5:00 AM REGISTRATION REP Height and Weight, Routine Entered On: 05/08/2019 6:49 EST Performed On: 05/08/2019 5:00 EST by Reyna Nicolas RN Height and Weight, Routine Routine Weight Source : Standing scale Routine Weight Entry Format : [place] Routine Weight, Pounds : 236 lb Routine Weight, Ounces : 7 oz Routine Weight Calculation : 107.47 kg Height Source : Stated Height Entry Format : [place] Height, Feet : 6 ft Height, Inches : 0 Inch Clinical Height : 182.88 cm Body Surface Area (BSA), Routine : 2.29 m2 Body Mass Index (BMI), Routine : 32.13 kg/m2 Reyna Nicolas RN - 05/08/2019 6:47 EST Electronically signed by Jackie [facility] Conversion Scarf And Anneal Operator Cerner at 06/19/2022 11:14 PM CDT documented in this encounter Plan of Treatment Not on file documented as of this encounter Visit Diagnoses Not on filedocumented in this encounter
--- OUTSIDE RECORDS SUMMARY | 2025-02-19 15:55 | XMS_ITS | Encounter Summary ---
Author Organization [employer] ([place], [place], [place], [place], [place]) Address [address] [place] [address] Care Team Providers Care Gelatin Powder Mixer Name Role Phone Unavailable Primary Care Provider Unavailabl e Encounter Details Date Type Department Care Team (Late st Contact Info) Description 05/09/2019 Transcribed Document [facility] [place] [facility] [place] [address] ProviderMg MD [facility] [place] [address] Social History Tobacco Use Types Packs/Day Years Used Date Smoking Tobacco: Never Assessed Sex and Gender Information Value Date Recorded Sex Assigned at Not on file Legal Sex Male 1:09 PM CDT Gender Identity Not on file Sexual Orientation Not on file documented as of this encounter Miscellaneous Notes * Cerner Conversion Note - Historical ProviderMD - 05/09/2019 5:00 AM SAMPLE TESTER Chart Check - Review Order Profile Entered [...]
--- OUTSIDE RECORDS SUMMARY | 2025-02-19 15:55 | XMS_ITS | Encounter Summary ---
Author Organization [employer] ([place], [place], [place], [place], [place]) Address [address] [place] [address] Care Team Providers Care Computer Science Intern Name Role Phone Unavailable Primary Care Provider Unavailabl e Encounter Details Date Type Department Care Team (Late st Contact Info) Description 2019 Transcribed Document [facility] [place] [facility] [place] [address] ProviderMg MD [facility] [place] [id number] Social History Tobacco Use Types Packs/Day Years Used Date Smoking Tobacco: Never Assessed Sex and Gender Information Value Date Recorded Sex Assigned at Not on file Legal Sex Male 1:09 PM CDT Gender Identity Not on file Sexual Orientation Not on file documented as of this encounter Miscellaneous Notes * Cerner Conversion Note - Mg Ritchie MD - 2019 11:44 AM RELAY CHECKER Patient: JOSE PEARSON Age: 48 years Sex: [...] 20 mg, Oral, At Bedtime Flonase: 1 [place], Nostrils Both, BID Melatonin: 3 mg, Oral, [...] Pain (Mild 1-3) Xarelto: 20 mg, Oral, [id number] Zofran: 4 mg, IV Push, Q6H, PRN: [...] At Bedtime fluticasone 0.05% nasal spray 1 [place], Nostrils Both, BID loratadine 10 mg tab [...] mg tab 20 mg 1 Tab, Oral, [id number] spironolactone 25 mg tab 50 mg 2 [...] Problem list: Medical angina / SNOMED CT 463091556 / Confirmed Cardiac defibrillator in place / SNOMED CT 9311365859 / Confirmed interrogated at physicians office---02/22/13 pacemaker / SNOMED CT 6723118671 / Confirmed stroke / SNOMED CT 631457798 / Confirmed he had a stroke when they found the blood clot in valve History of obstructive sleep apnea / IMO 74945536 / Confirmed high cholesterol / SNOMED CT 61598964 / Confirmed hypertension / SNOMED CT 3564464962 / Confirmed myocardial infarction / SNOMED CT 07912563 / Confirmed sesonal allergies / SNOMED CT 7278011766 / Confirmed Resolved: At risk for sleep apnea / IMO 71829579 Resolved: 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 / SNOMED CT 020542415 treated with blood thinners, Active Problems (16) [...] will benefit from advanced CHF management at [facility] for eval for transplant/LVAD. 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 documented in this encounter Plan of Treatment Not on file documented as of this encounter Visit Diagnoses Not on filedocumented in this encounter
--- OUTSIDE RECORDS SUMMARY | 2025-02-19 15:55 | XMS_ITS | Encounter Summary ---
Author Organization [employer] ([place], [place], [place], [place], [place]) Address [address] [place] [address] Care Team Providers Care Dust Puller Name Role Phone Unavailable Primary Care Provider Unavailabl e Encounter Details Date Type Department Care Team (Late st Contact Info) Description 05/07/2019 Transcribed Document [facility] [place] Medicine [facility] [place] [address] ProviderMg MD [place] [address] Social History Tobacco Use Types Packs/Day Years Used Date Smoking Tobacco: Never Assessed Sex and Gender Information Value Date Recorded Sex Assigned at Not on file Legal Sex Male 1:09 PM CDT Gender Identity Not on file Sexual Orientation Not on file documented as of this encounter Miscellaneous Notes * Cerner Conversion Note - Mg ProviderMD - 05/07/2019 11:30 AM GRID CASTER Rapid Response Team Documentation Entered On: 05/07/2019 [...] @ this time w no needs from QUENCHING CAR OPERATOR. Instructed Gracia to call QUENCHING CAR OPERATOR if further needs arise. Patient Condition at End of Event : No S/S of Acute Distress Patient Disposition Post Event : No change in location/level of care Rapid Response Dust Puller #1 : RAJAT NAZARIO, RAJAT RIGGS RN - 05/07/2019 13:07 EST Electronically signed by Jackie [facility] Conversion Hardboard Coating Machine Operator Cerner at 06/19/2022 11:05 PM CDT documented in this encounter Plan of Treatment Not on file documented as of this encounter Visit Diagnoses Not on filedocumented in this encounter
--- OUTSIDE RECORDS SUMMARY | 2025-02-19 15:55 | XMS_ITS | Encounter Summary ---
Author Organization [facility] Address [address] [place] [address] Care Team Providers Care Statistical Machine Servicer Name Role Phone Herberth Perez MD Primary Care Provider [phone] Katrin Oviedo RN Unavailable [phone] Zaida Lafleur SODA COLUMN OPERATOR Unavailable [phone] Gracia Petersen SODA COLUMN OPERATOR Unavailable Yunior Solorzano MD Unavailable Ross Baez DO Unavailable [phone] Edith Aleman RN Unavailable Unavailable Reason for Visit * Reason Comments Med Refill Encounter Details Date Type Department Care Team (Late st Contact Info) Description 11/14/2021 Refill [facility] [place] [address] [place] [address] Gracia Petersen, SODA COLUMN OPERATOR [address] [place] [address] Social History Tobacco Use Types [...] drink first t janine in the morning (EYE-CONCRETE BUILDINGS ASSEMBLER) to steady your nerves or to [...] Description 04/22/2025 9:00 AM EST Ancillary Procedure [facility] [place] [address] [facility] [place] [address] documented as of this encounter Visit Diagnoses [...] documented as of this encounter Care Teams Statistical Machine Servicer Relationship Specialty Start Date End Date Herberth Perez MD [address] [place] [address] [place] [address] PCP - General 07/17/20 Katrin Oviedo, RN [facility] [address] [place] [address] VAD Coordinator Cardiology 08/06/20 10/21/24 Zaida Lafleur APRN [address] [place] [id number] Nurse Practitioner Advanced Heart Failure and Transplant Cardiology 08/06/20 06/11/23 Gracia Petersen APRN [address] [place] [address] Nurse Practitioner Internal Medicine 08/06/20 Yunior Solorzano MD [address] [facility] [address] [place] [address] Consulting Physician Gastroenterology 07/18/22 Ross Baez, DO [address] [place] [address] Surgeon Cardiothoracic Surgery 07/18/22 Edith Aleman, ROLLING MACHINE OPERATOR None VAD Coordinator 10/14/24 documented as of this encounter
--- OUTSIDE RECORDS SUMMARY | 2025-02-19 15:55 | XMS_ITS | Encounter Summary ---
Author Organization [employer] ([place], [place], [place], [place], [place]) Address [address] [place] [address] Care Team Providers Care Redye Hand Name Role Phone Unavailable Primary Care Provider Unavailabl e Encounter Details Date Type Department Care Team (Late st Contact Info) Description 05/09/2019 Transcribed Document [facility] [place] [address] ProviderMg [place] [address] Social History Tobacco Use Types Packs/Day Years Used Date Smoking Tobacco: Never Assessed Sex and Gender Information Value Date Recorded Sex Assigned at Not on file Legal Sex Male 1:09 PM CDT Gender Identity Not on file Sexual Orientation Not on file documented as of this encounter Miscellaneous Notes * Cerner Conversion Note - Historical ProviderMD - 05/09/2019 2:00 AM FUR BLOWING MACHINE OPERATOR Manager Intel Details Entered On: 05/09/2019 1:41 EST Performed [...]
--- OUTSIDE RECORDS SUMMARY | 2025-02-19 15:55 | XMS_ITS | Encounter Summary ---
Author Organization [employer] ([place], [place], [place], [place], [place]) Address [address] [place] [address] Care Team Providers Care Bale Stacker Name Role Phone Unavailable Primary Care Provider Unavailabl e Encounter Details Date Type Department Care Team (Late st Contact Info) Description 05/08/2019 Transcribed Document [facility] [place] [address] [place] [address] ProviderMg MD [facility] [place], [place] [address] Social History Tobacco Use Types Packs/Day Years Used Date Smoking Tobacco: Never Assessed Sex and Gender Information Value Date Recorded Sex Assigned at Not on file Legal Sex Male 1:09 PM CDT Gender Identity Not on file Sexual Orientation Not on file documented as of this encounter Miscellaneous Notes * Cerner Conversion Note - Historical ProviderMD - 05/08/2019 2:00 AM CURRICULUM DEVELOPMENT SPECIALIST Alcohol Rubber Details Entered On: 05/08/2019 4:59 EST Performed [...]
--- OUTSIDE RECORDS SUMMARY | 2025-02-19 15:55 | XMS_ITS | Encounter Summary ---
Author Organization [employer] ([place], [place], [place], [place], [place]) Address [address] [place] [address] Care Team Providers Care Cessation Systems Outreach Specialist Name Role Phone Unavailable Primary Care Provider Unavailabl e Encounter Details Date Type Department Care Team (Late st Contact Info) Description 05/04/2019 Transcribed Document [facility] [place] [facility] [place] [address] ProviderMg MD [facility] [place] [id number] Social History Tobacco Use Types Packs/Day Years Used Date Smoking Tobacco: Never Assessed Sex and Gender Information Value Date Recorded Sex Assigned at Not on file Legal Sex Male 1:09 PM CDT Gender Identity Not on file Sexual Orientation Not on file documented as of this encounter Miscellaneous Notes * Cerner Conversion Note - Mg Ritchie MD - 05/04/2019 11:36 AM STEELER Patient: JOSE PEARSON Age: 48 years Sex: [...] 20 mg, Oral, At Bedtime Flonase: 1 [place], Nostrils Both, BID Melatonin: 3 mg, Oral, [...] At Bedtime fluticasone 0.05% nasal spray 1 [place], Nostrils Both, BID loratadine 10 mg tab [...] Problem list: Medical angina / SNOMED CT 789798610 / Confirmed Cardiac defibrillator in place / SNOMED CT 5931930737 / Confirmed interrogated at physicians office---02/22/13 pacemaker / SNOMED CT 3997160520 / Confirmed stroke / SNOMED CT 899873385 / Confirmed he had a stroke when they found the blood clot in valve History of obstructive sleep apnea / IMO 10038208 / Confirmed high cholesterol / SNOMED CT 37085240 / Confirmed hypertension / SNOMED CT 4113287604 / Confirmed myocardial infarction / SNOMED CT 47091387 / Confirmed sesonal allergies / SNOMED CT 8578786977 / Confirmed, Active Problems (16) stroke angina [...] Gastrointestinal: Normal bowel sounds. Integumentary: Warm, Dry, [place]. Results Review General results Telemetry SR/ST PACS [...] -Corrected hypomag -Corrected Electronically signed by Jackie [facility] Conversion Table Games Floor Supervisor Cerner at 06/19/2022 11:12 PM CDT documented in this encounter Plan of Treatment Not on file documented as of this encounter Visit Diagnoses Not on filedocumented in this encounter
--- OUTSIDE RECORDS SUMMARY | 2025-02-19 15:55 | XMS_ITS | Encounter Summary ---
Author Organization [employer] ([place], [place], [place], [place], [place]) Address [address] [place] [address] Care Team Providers Care Steel Roller Name Role Phone Unavailable Primary Care Provider Unavailabl e Encounter Details Date Type Department Care Team (Late st Contact Info) Description 05/09/2019 Transcribed Document [facility] [place] [facility] [place] [address] ProviderMg MD [facility] [place] [address] Social History Tobacco Use Types Packs/Day Years Used Date Smoking Tobacco: Never Assessed Sex and Gender Information Value Date Recorded Sex Assigned at Not on file Legal Sex Male 1:09 PM CDT Gender Identity Not on file Sexual Orientation Not on file documented as of this encounter Miscellaneous Notes * Cerner Conversion Note - Mg ProviderMD - 05/09/2019 8:56 AM INFANTRY OPERATIONS SPECIALIST On Going Discharge Planning Entered On: 05/09/2019 8:57 EST Performed On: 05/09/2019 8:56 EST by Alyse Townsend Social Worker-Soft Iron Inspector Care Management Progress Note Discharge Arrangements : Patient Post-Acute Information Patient Name: JOSE PEARSON Gender: Male : [birth year] Age: 48 Years No Post-Acute Placement(s) Listed No Post-Acute Service(s) Listed No [place] Referral(s) Listed Alyse Townsend Social Worker-Soft Iron Inspector - 05/09/2019 8:56 EST Narrative Progress Note Narrative Progress Note : 05/08 Per documentation left by Paula Villeda RN CM, referral information was sent to [facility] cardiac transplant program. Historical Progress Note : 05/06 Received order to make referral to [facility] outpatient cardiac transplant program. Contacted [facility] appointment telephone number [phone]. They report the person who typically takes the referrals is unavailable and they will have her contact CM back. CM contact information was provided. They report the referral/medical staff credentialing coordinator is Kailey PH: [phone]. Alyse Townsend, Stem Cleaning Machine Feeder-Soft Iron Inspector - 05/07/19 15:01:13 Per RN in Multidisciplinary rounds patient is NPO for scheduled Cardiomems today. Having some nausea after Fe Infusions requested the infusion be held until after procedure so he can eat. CM will follow. TANVIR THAYER Rn-Plate Printer - 05/06/19 11:03:45 Alyse Townsend Stem Cleaning Machine Feeder-Soft Iron Inspector - 05/09/2019 8:56 EST documented in this encounter Plan of Treatment Not on file documented as of this encounter Visit Diagnoses Not on filedocumented in this encounter
--- OUTSIDE RECORDS SUMMARY | 2025-02-19 15:55 | XMS_ITS | Encounter Summary ---
Author Organization [employer] ([place], [place], [place], [place], [place]) Address [address] [place] [address] Care Team Providers Care Seam Closer Name Role Phone Unavailable Primary Care Provider Unavailabl e Encounter Details Date Type Department Care Team (Late st Contact Info) Description 05/08/2019 Transcribed Document [facility] [place] [facility] [place] [address] ProviderMg MD [place] [address] Social History Tobacco Use Types Packs/Day Years Used Date Smoking Tobacco: Never Assessed Sex and Gender Information Value Date Recorded Sex Assigned at Not on file Legal Sex Male 1:09 PM CDT Gender Identity Not on file Sexual Orientation Not on file documented as of this encounter Miscellaneous Notes * Cerner Conversion Note - Historical ProviderMD - 05/08/2019 5:00 AM ANIMAL DAYCARE PROVIDER Chart Check - Review Order Profile Entered On: 05/08/2019 4:58 EST Performed On: 05/08/2019 5:00 EST by Reyna Nicolas RN Chart Check All Active Orders Reviewed : Yes Reyna Nicolas RN - 05/08/2019 4:58 EST Electronically signed by Jackie [facility] Conversion Marketing Information Manager [employer] at 06/19/2022 11:14 PM CDT documented in this encounter Plan of Treatment Not on file documented as of this encounter Visit Diagnoses Not on filedocumented in this encounter
--- OUTSIDE RECORDS SUMMARY | 2025-02-19 15:55 | XMS_ITS | Encounter Summary ---
Author Organization [employer] ([place], [place], [place], [place], [place]) Address [address] [place] [address] Care Team Providers Care Art Coordinator Name Role Phone Unavailable Primary Care Provider Unavailabl e Encounter Details Date Type Department Care Team (Late st Contact Info) Description 05/08/2019 Transcribed Document [facility] [place] [facility] [place] [address] ProviderMg MD [facility] [place] [address] Social History Tobacco Use Types Packs/Day Years Used Date Smoking Tobacco: Never Assessed Sex and Gender Information Value Date Recorded Sex Assigned at Not on file Legal Sex Male 1:09 PM CDT Gender Identity Not on file Sexual Orientation Not on file documented as of this encounter Miscellaneous Notes * Cerner Conversion Note - Mg Ritchie MD - 05/08/2019 5:52 PM RESEARCH WORKER ENCYCLOPEDIA DATE OF SERVICE: 05/08/2019 PROCEDURE: Right heart catheterization and insertion of CardioMEMS device, left posterior pulmonary artery INDICATIONS FOR PROCEDURE: Recurrent acute left systolic heart failure, [place] Heart Association functional class 4 with multiple [...] Using a single wall puncture technique, an 8-Kosovan side-port sheath was introduced into the right common femoral vein. Sheath aspirated and flushed with heparinized saline solution. An 8-Kosovan Lavonia-Familia thermodilution catheter was advanced under fluoroscopy and [...] method. The system was then removed. The 8-Kosovan side-port sheath in the right common femoral vein was exchanged over a 0.035 inch wire to a 12-Kosovan sideport sheath. The sheath was aspirated and flushed with heparinized saline solution. The Lavonia-Familia thermodilution catheter was then advanced again over [...] posterior pulmonary vein. Pressures were equalized and Lavonia-Familia thermodilution catheter readvanced and engaged selectively in the right main pulmonary artery. Pulmonary artery pressures were re-obtained and calibrated with the CardioMEMS. The Lavonia-Familia catheter was removed, venous side-port sheath pulled. [...] the left pulmonary artery. PLAN: Aggressively diurese. /[id number] Leydi Hobbs MD AE/GRACE / AE / MODL /[id number] documented in this encounter Plan of Treatment Not on file documented as of this encounter Visit Diagnoses Not on filedocumented in this encounter
--- OUTSIDE RECORDS SUMMARY | 2025-02-19 15:55 | XMS_ITS | Encounter Summary ---
Author Organization [employer] ([place], [place], [place], [place], [place]) Address [address] [place] [address] Care Team Providers Care Bullard Operator Name Role Phone Unavailable Primary Care Provider Unavailabl e Encounter Details Date Type Department Care Team (Late st Contact Info) Description 05/09/2019 Transcribed Document [facility] [place] [facility] [place] [address] ProviderMg MD [facility] [place] [id number] Social History Tobacco Use Types Packs/Day Years Used Date Smoking Tobacco: Never Assessed Sex and Gender Information Value Date Recorded Sex Assigned at Not on file Legal Sex Male 1:09 PM CDT Gender Identity Not on file Sexual Orientation Not on file documented as of this encounter Miscellaneous Notes * Cerner Conversion Note - Mg Ritchie MD - 05/09/2019 10:06 AM SLEEVE BASTER Patient: JOSE PEARSON Age: 48 years Sex: [...] Non-distended, Normal bowel sounds. Integumentary: Warm, Dry, [place], No rash. Results Review General results Today's [...]
--- OUTSIDE RECORDS SUMMARY | 2025-02-19 15:55 | XMS_ITS | Encounter Summary ---
Author Organization [facility] ([place], [place], [place], [place], [place]) Address [address] [place] [address] Care Team Providers Care Shovel Engineer Name Role Phone Unavailable Primary Care Provider Unavailabl e Encounter Details Date Type Department Care Team (Late st Contact Info) Description 04/13/2019 Transcribed Document [facility] [place] [facility] [address] ProviderMg MD [facility] [place] [address] Social History Tobacco Use Types Packs/Day Years Used Date Smoking Tobacco: Never Assessed Sex and Gender Information Value Date Recorded Sex Assigned at Not on file Legal Sex Male 1:09 PM CDT Gender Identity Not on file Sexual Orientation Not on file documented as of this encounter Miscellaneous Notes * Cerner Conversion Note - Mg Ritchie MD - 04/13/2019 12:44 PM SENIOR TECH MANUFACTURING ENGINEERING [place] [id number] JOSE PEARSON :1970 Visit Time:04/12/2019 Your Visit [...] Where: [address] [place] [address]- Business (1) Medications What How Much When Instructions Next Dose dofetilide (Tikosyn 250 mcg oral capsule) 1 Capsule(s) Oral Two Times A Day Pickup at [facility] cetirizine (cetirizine 10 mg oral tablet) [...] 25 Milligram(s) Oral Every Day Pharmacy Information [facility]: [address] [place], [place] [id number] [phone] Take your medications faithfully. Do NOT skip [...] out more about heart disease, visit the [place] [employer] Association's website at www.americanheart.org This information is not intended to replace advice given to you by your health care provider. Make sure you discuss any questions you have with your health care provider. Document Released: 10/04/2004 Document Revised: 07/20/2016 Document Reviewed: 04/16/2014 [employer] Interactive Patient Education ?? 2019 [employer] Cardiac Rehabilitation What is cardiac rehabilitation? [...] 01/04/2016 Elsevier Interactive Patient Education ?? 2019 [employer] Emergency Awareness and Preventative Care STROKE [...] Assistance with quitting is available by contacting 5-275-YJVHNOW. This is a free resource providing counseling, support, and referral. Or you may contact your personal physician. [employer] Suicide Prevention Lifeline: The National Suicide Prevention [...] range between ( 1.0 and 7.0 ) [place] #: 0.93 K/uL -- Normal range between ( 0.24 and 0.82 ) [place]os #: 0.27 K/uL -- Normal range between ( 0.04 and 0.54 ) [place] %: 13.1 % -- Normal range between [...] ) Urine Bilirubin Dipstick: Negative Urine Specific [place]: 1.018 -- Normal range between ( 1.005 and 1.030 ) Urine Chemistry 04/11/2019 10:27 PM Osmolality Urine: 595 mOsm/kg -- Normal range between ( 250 and 900 ) Sodium Ur [place]: 64 mMole/Liter General Chemistry 04/13/2019 4:05 AM [...] was given the opportunity to ask questions. Patient/Acrobatic Rigger Name: Patient/Acrobatic Rigger Signature: Relationship to Patient: Clinician/Hospital Acrobatic Rigger Signature: Date: Electronically signed by Jackie, [facility] Conversion Warp Spinner Jessica at 06/19/2022 11:10 PM CDT documented in this encounter Plan of Treatment Not on file documented as of this encounter Visit Diagnoses Not on filedocumented in this encounter
--- OUTSIDE RECORDS SUMMARY | 2025-02-19 15:56 | XMS_ITS | Encounter Summary ---
Author Organization [employer] ([place], [place], [place], [place], [place]) Address [address] [place] [address] Care Team Providers Care Medical Records Analyst Name Role Phone Unavailable Primary Care Provider Unavailabl e Encounter Details Date Type Department Care Team (Late st Contact Info) Description 05/05/2019 Transcribed Document [facility] [place] [facility] [place] [address] [facility] [place] [id number] Social History Tobacco Use Types Packs/Day Years Used Date Smoking Tobacco: Never Assessed Sex and Gender Information Value Date Recorded Sex Assigned at Not on file Legal Sex Male 1:09 PM CDT Gender Identity Not on file Sexual Orientation Not on file documented as of this encounter Miscellaneous Notes * Cerner Conversion Note - Mg Ritchie MD - 05/05/2019 11:16 AM LEGAL DIRECTOR Patient: JOSE PEARSON Age: 48 years Sex: [...] 135 mL/Hr, IV Piggyback, Daily Flonase: 1 [place], Nostrils Both, BID Melatonin: 3 mg, Oral, [...] At Bedtime fluticasone 0.05% nasal spray 1 [place], Nostrils Both, BID loratadine 10 mg tab [...] Problem list: Medical angina / SNOMED CT 205058607 / Confirmed Cardiac defibrillator in place / SNOMED CT 0194999387 / Confirmed interrogated at physicians office---02/22/13 pacemaker / SNOMED CT 3215499937 / Confirmed stroke / SNOMED CT 551659799 / Confirmed he had a stroke when they found the blood clot in valve History of obstructive sleep apnea / IMO 94339131 / Confirmed high cholesterol / SNOMED CT 75290508 / Confirmed hypertension / SNOMED CT 7468062862 / Confirmed myocardial infarction / SNOMED CT 76987945 / Confirmed sesonal allergies / SNOMED CT 4889217048 / Confirmed Resolved: At risk for sleep apnea / IMO 53074528 Resolved: 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 / SNOMED CT 072023696 treated with blood thinners, Active Problems (16) [...] Gastrointestinal: Normal bowel sounds. Integumentary: Warm, Dry, [place]. Results Review General results Telemetry SR/ST PACS [...] rep in am hypokalemia -Corrected hypomag -Corrected documented in this encounter Plan of Treatment Not on file documented as of this encounter Visit Diagnoses Not on filedocumented in this encounter
--- OUTSIDE RECORDS SUMMARY | 2025-02-19 15:56 | XMS_ITS | Encounter Summary ---
Author Organization [employer] ([place], [place], [place], [place], [place]) Address [address] [place] [address] Care Team Providers Care Sales Representatives Name Role Phone Unavailable Primary Care Provider Unavailabl e Encounter Details Date Type Department Care Team (Late st Contact Info) Description 05/07/2019 Transcribed Document [facility] [place] [facility] [place] [address] ProviderMg MD [facility] [place] [address] Social History Tobacco Use Types Packs/Day Years Used Date Smoking Tobacco: Never Assessed Sex and Gender Information Value Date Recorded Sex Assigned at Not on file Legal Sex Male 1:09 PM CDT Gender Identity Not on file Sexual Orientation Not on file documented as of this encounter Miscellaneous Notes * Cerner Conversion Note - Mg ProviderMD - 05/07/2019 2:55 PM FAST FOOD TEAM MEMBER On Going Discharge Planning Entered On: 05/07/2019 15:01 EST Performed On: 05/07/2019 14:55 EST by Alyse Townsend Social Worker-Fly Winder Care Management Progress Note Discharge Arrangements : Patient Post-Acute Information Patient Name: JOSE PEARSON Gender: Male : [birth year] Age: 48 Years No Post-Acute Placement(s) Listed No Post-Acute Service(s) Listed No [place] Referral(s) Listed Alyse Townsend Social Worker-Fly Winder - 05/07/2019 14:55 EST Narrative Progress Note Narrative Progress Note : 05/06 Received order to make referral to [facility] cardiac [facility] program. Contacted [facility] appointment telephone number [phone]. They report the person who typically takes the referrals is unavailable and they will have her contact CM back. CM contact information was provided. They report the referral/net coordinator is Kailey PH: [phone]. Historical Progress Note : Per RN in Multidisciplinary rounds patient is NPO for scheduled Cardiomems today. Having some nausea after Fe Infusions requested the infusion be held until after procedure so he can eat. CM will follow. TANVIR THAYER Rn-Skatesman - 05/06/19 11:03:45 Alyse Townsend, Excavator Backhoe Operator-Fly Winder - 05/07/2019 14:55 EST documented in this encounter Plan of Treatment Not on file documented as of this encounter Visit Diagnoses Not on filedocumented in this encounter
--- OUTSIDE RECORDS SUMMARY | 2025-02-19 15:56 | XMS_ITS | Encounter Summary ---
Author Organization [employer] ([place], [place], [place], [place], [place]) Address [address] [place] [address] Care Team Providers Care Director Of Quality Improvement Name Role Phone Unavailable Primary Care Provider Unavailabl e Encounter Details Date Type Department Care Team (Late st Contact Info) Description 05/04/2019 Transcribed Document [facility] [place] [address] [place] [address] ProviderMg MD [address] [place], [place] [address] Social History Tobacco Use Types Packs/Day Years Used Date Smoking Tobacco: Never Assessed Sex and Gender Information Value Date Recorded Sex Assigned at Not on file Legal Sex Male 1:09 PM CDT Gender Identity Not on file Sexual Orientation Not on file documented as of this encounter Miscellaneous Notes * Cerner Conversion Note - Historical ProviderMD - 05/04/2019 2:00 AM PHOTO PRINTER Clinical Lab Clerk Details Entered On: 05/04/2019 4:57 EST Performed [...] Carlos Ojeda, MARYCARMEN - 05/04/2019 4:56 EST documented in this encounter Plan of Treatment Not on file documented as of this encounter Visit Diagnoses Not on filedocumented in this encounter
--- OUTSIDE RECORDS SUMMARY | 2025-02-19 15:56 | XMS_ITS | Encounter Summary ---
Author Organization [employer] ([place], [place], [place], [place], [place]) Address [address] [place] [address] Care Team Providers Care Electrical Research Engineer Name Role Phone Unavailable Primary Care Provider Unavailabl e Encounter Details Date Type Department Care Team (Late st Contact Info) Description 05/03/2019 Transcribed Document [facility] [place] [facility] [place] [address] ProviderMg MD [facility] [place] [id number] Social History Tobacco Use Types Packs/Day Years Used Date Smoking Tobacco: Never Assessed Sex and Gender Information Value Date Recorded Sex Assigned at Not on file Legal Sex Male 1:09 PM CDT Gender Identity Not on file Sexual Orientation Not on file documented as of this encounter Miscellaneous Notes * Cerner Conversion Note - Mg Ritchie MD - 05/03/2019 9:58 AM DISPATCH SPECIALIST Patient: JOSE PEARSON Age: 48 years Sex: [...] Gastrointestinal: Normal bowel sounds. Integumentary: Warm, Dry, [place]. Results Review General results Today's results 05/03/2019 [...]
--- OUTSIDE RECORDS SUMMARY | 2025-02-19 15:56 | XMS_ITS | Encounter Summary ---
Author Organization [employer] ([place], [place], [place], [place], [place]) Address [address] [place] [address] Care Team Providers Care Glass Washer Name Role Phone Unavailable Primary Care Provider Unavailabl e Encounter Details Date Type Department Care Team (Late st Contact Info) Description 05/04/2019 Transcribed Document [facility] [place] [facility] [place] [address] ProviderMg MD [facility] [place] [address] Social History Tobacco Use Types Packs/Day Years Used Date Smoking Tobacco: Never Assessed Sex and Gender Information Value Date Recorded Sex Assigned at Not on file Legal Sex Male 1:09 PM CDT Gender Identity Not on file Sexual Orientation Not on file documented as of this encounter Miscellaneous Notes * Cerner Conversion Note - Historical ProviderMD - 05/04/2019 5:00 AM TRUCK DRIVING INSTRUCTOR Chart Check - Review Order Profile Entered On: 05/04/2019 6:34 EST Performed On: 05/04/2019 5:00 EST by Carlos Ojeda RN Chart Check Powerplans Initiated/Discontinued as Appropriate : Yes All Active Orders Reviewed : Yes Carlos Ojeda RN - 05/04/2019 6:34 EST documented in this encounter Plan of Treatment Not on file documented as of this encounter Visit Diagnoses Not on filedocumented in this encounter
--- OUTSIDE RECORDS SUMMARY | 2025-02-19 15:56 | XMS_ITS | Encounter Summary ---
Author Organization [employer] ([place], [place], [place], [place], [place]) Address [address] [place] [address] Care Team Providers Care Silk Trimmer Name Role Phone Unavailable Primary Care Provider Unavailabl e Encounter Details Date Type Department Care Team (Late st Contact Info) Description 05/03/2019 Transcribed Document [facility] [place] [address] [place] [address] ProviderMg MD [facility] [place] [address] Social History Tobacco Use Types Packs/Day Years Used Date Smoking Tobacco: Never Assessed Sex and Gender Information Value Date Recorded Sex Assigned at Not on file Legal Sex Male 1:09 PM CDT Gender Identity Not on file Sexual Orientation Not on file documented as of this encounter Miscellaneous Notes * Cerner Conversion Note - Historical ProviderMD - 05/03/2019 5:00 AM UTILITY PIPE LAYER Height and Weight, Routine Entered On: 05/03/2019 6:56 EST Performed On: 05/03/2019 5:00 EST by Carlos Ojeda RN Height and Weight, Routine Routine Weight Source : Bed scale Routine Weight Entry Format : Metric Routine Weight, Kilograms : 104.5 kg(Converted to: 230 lb 6 oz) Routine Weight Calculation : 104.5 kg Height Source : Stated Height Entry Format : Yellow Medicine Height, Feet : 6 ft Height, Inches : 0 Inch Clinical Height : 182.88 cm Body Surface Area (BSA), Routine : 2.26 m2 Body Mass Index (BMI), Routine : 31.25 kg/m2 Carlos Ojeda RN - 05/03/2019 6:55 EST Electronically signed by Jackie [facility] Conversion Senior Industrial Engineer Cerner at 06/19/2022 11:12 PM CDT documented in this encounter Plan of Treatment Not on file documented as of this encounter Visit Diagnoses Not on filedocumented in this encounter
--- OUTSIDE RECORDS SUMMARY | 2025-02-19 15:56 | XMS_ITS | Encounter Summary ---
Author Organization [employer] ([place], [place], [place], [place], [place]) Address [address] [place] [address] Care Team Providers Care Title Camera Operator Name Role Phone Unavailable Primary Care Provider Unavailabl e Encounter Details Date Type Department Care Team (Late st Contact Info) Description 05/03/2019 Transcribed Document [facility] [place] [address] [place] [address] ProviderMg MD [facility] [place], [place] [address] Social History Tobacco Use Types Packs/Day Years Used Date Smoking Tobacco: Never Assessed Sex and Gender Information Value Date Recorded Sex Assigned at Not on file Legal Sex Male 1:09 PM CDT Gender Identity Not on file Sexual Orientation Not on file documented as of this encounter Miscellaneous Notes * Cerner Conversion Note - Historical ProviderMD - 05/03/2019 10:49 AM VETERINARY LABORATORY DIAGNOSTICIAN Therapy Screen, PT Entered On: 05/03/2019 10:50 [...]
--- OUTSIDE RECORDS SUMMARY | 2025-02-19 15:56 | XMS_ITS | Encounter Summary ---
Author Organization [employer] ([place], [place], [place], [place], [place]) Address [address] [place] [address] Care Team Providers Care Transportation Supervisor Name Role Phone Unavailable Primary Care Provider Unavailabl e Encounter Details Date Type Department Care Team (Late st Contact Info) Description 05/03/2019 Transcribed Document [facility] [place] [facility] [place] [address] ProviderMg MD [facility] [place], [place] [address] Social History Tobacco Use Types Packs/Day Years Used Date Smoking Tobacco: Never Assessed Sex and Gender Information Value Date Recorded Sex Assigned at Not on file Legal Sex Male 1:09 PM CDT Gender Identity Not on file Sexual Orientation Not on file documented as of this encounter Miscellaneous Notes * Cerner Conversion Note - Mg ProviderMD - 05/03/2019 10:52 AM COLLECTION TECHNICIAN Initial Discharge Planning Entered On: 05/03/2019 10:56 EST Performed On: 05/03/2019 10:52 EST by TANVIR THAYER Rn-Lace Paper Machine Operator Initial Assessment I Previously Documented Living Environment : No qualifying data available. Living Situation : Home Patient Lives With : Spouse Emergency Contact #1 : Deidre Pearson Emergency Contact #1 Emergency Contact #1 Relationship : Emergency Contact #2 : none Emergency Contact #2 Phone Number : none Emergency Contact #2 Relationship : none TANVIR THAYER Rn-Lace Paper Machine Operator - 05/03/2019 10:52 EST Initial Assessment II Current Home Treatments and Equipment : CPAP TANVIR THAYER Rn-Lace Paper Machine Operator - 05/03/2019 10:52 EST Discharge Needs I Anticipated Discharge Date : 05/04/2019 EST Anticipated Discharge To, CM : Home independently Current Home Treatment/Equipment : Current Home Treatment/Equipment No qualifying data available. Post Acute/Home Treatments : CPAP Documentation Status Complete : Yes TANVIR THAYER Rn-Lace Paper Machine Operator - 05/03/2019 10:52 EST Discharge Needs II Professional Skilled Services : Professional Skilled Services No qualifying data available. TANVIR THAYER Rn-Lace Paper Machine Operator - 05/03/2019 10:52 EST Narrative Note Narrative Note : Patient from MD office. Patient has PAcemaker ICD per nurse in multidisciplinary rounds EF is < 20. Lives with spouse is IADL's has CPap at home. No acute needs identified by CM he is a high risk for readmission. CM will follow. TANVIR THAYER Rn-Lace Paper Machine Operator - 05/03/2019 10:52 EST documented in this encounter Plan of Treatment Not on file documented as of this encounter Visit Diagnoses Not on filedocumented in this encounter
--- OUTSIDE RECORDS SUMMARY | 2025-02-19 15:56 | XMS_ITS | Encounter Summary ---
Author Organization [employer] ([place], [place], [place], [place], [place]) Address [address] [place] [address] Care Team Providers Care Manager Editorial Name Role Phone Unavailable Primary Care Provider Unavailabl e Encounter Details Date Type Department Care Team (Late st Contact Info) Description 05/06/2019 Transcribed Document [facility] [place] [facility] [place] [address] ProviderMg MD [address] [place] [address] Social History Tobacco Use Types Packs/Day Years Used Date Smoking Tobacco: Never Assessed Sex and Gender Information Value Date Recorded Sex Assigned at Not on file Legal Sex Male 1:09 PM CDT Gender Identity Not on file Sexual Orientation Not on file documented as of this encounter Miscellaneous Notes * [employer]ner Conversion Note - Mg ProviderMD - 05/06/2019 12:11 PM CIRCUIT BOARD REPAIR TECHNICIAN UM Authorization Entered On: 05/06/2019 12:12 EST Performed On: 05/06/2019 12:11 EST by ARMANDO SHANNON RN-Utilization Review Primary Insurance Authorization Authorization and Policy Numbers : Insurance 1 Health Plan: [facility] Policy Number: Authorization Number: Insurance Primary Name : [facility] Administators Authorization Status-Primary : Admit approved Authorization Number-Primary : [id number] Authorized Service Begin Date-Primary : 05/03/2019 EST Authorization Comments-Primary : Uploaded continuing stay clinicals (05/06/19) to [facility] via [employer]. Historical Authorization Comments-Primary : Comment 1: Per [facility], admit approved with auth #[id number] given from 05/03-05/05/19. Next review date 05/06/19. (ARMANDO SHANNON RN-Utilization Review 05/06/2019 08:05) Comment 2: Uploaded clinicals to [facility] administrators via [employer]. Manually faxed [employer] form. (MIRTHA, ARMANDO, RN-Utilization Review 05/03/2019 13:31) ARMANDO SHANNON RN-Utilization Review - 05/06/2019 12:11 EST documented in this encounter Plan of Treatment Not on file documented as of this encounter Visit Diagnoses Not on filedocumented in this encounter
--- OUTSIDE RECORDS SUMMARY | 2025-02-19 15:56 | XMS_ITS | Encounter Summary ---
Author Organization [employer] ([place], [place], [place], [place], [place]) Address [address] [place] [address] Care Team Providers Care Septic Tank Servicer Name Role Phone Unavailable Primary Care Provider Unavailabl e Encounter Details Date Type Department Care Team (Late st Contact Info) Description 05/07/2019 Transcribed Document [facility] [place] [address] [place] [address] ProviderMg MD [facility] [place] [address] Social History Tobacco Use Types Packs/Day Years Used Date Smoking Tobacco: Never Assessed Sex and Gender Information Value Date Recorded Sex Assigned at Not on file Legal Sex Male 1:09 PM CDT Gender Identity Not on file Sexual Orientation Not on file documented as of this encounter Miscellaneous Notes * Cerner Conversion Note - Historical ProviderMD - 05/07/2019 9:57 AM CLERICAL ASSOCIATE Event Note Entered On: 05/07/2019 10:05 EST Performed On: 05/07/2019 9:57 EST by Gracia Carl, Customer Success Specialist-Health Unit Coord Event Note Event Date/Time : 05/07/2019 9:57 EST Event Details : Nursing assessment additional narrative Description of Event : Pt's QTC is 618 this AM prior to adminstering his tikosyn dose. Notified MALU Hernandez. Orders received to adminster half the ordered dose of 250mcg. Gracia Carl, Customer Success Specialist-Health Unit Coord - 05/07/2019 10:03 EST documented in this encounter Plan of Treatment Not on file documented as of this encounter Visit Diagnoses Not on filedocumented in this encounter
--- OUTSIDE RECORDS SUMMARY | 2025-02-19 15:56 | XMS_ITS | Encounter Summary ---
Author Organization [email or web address] ([place], [place], [place], [place], [place]) Address [address] [place] [address] Care Team Providers Care Drawer In Dobby Loom Name Role Phone Unavailable Primary Care Provider Unavailabl e Encounter Details Date Type Department Care Team (Late st Contact Info) Description 05/03/2019 Transcribed Document [facility] [place] [facility] [place] [address] ProviderMg [place] [address] Social History Tobacco Use Types Packs/Day Years Used Date Smoking Tobacco: Never Assessed Sex and Gender Information Value Date Recorded Sex Assigned at Not on file Legal Sex Male 1:09 PM CDT Gender Identity Not on file Sexual Orientation Not on file documented as of this encounter Miscellaneous Notes * Cerner Conversion Note - Historical ProviderMD - 05/03/2019 10:[address] [facility] PT Charges Entered On: 05/03/2019 10:50 EST Performed On: 05/03/2019 10:50 EST by ALYX BOSTON PT [facility] PT Charges Physical Therapy Screen : 1 ALYX BOSTON PT - 05/03/2019 10:50 EST documented in this encounter Plan of Treatment Not on file documented as of this encounter Visit Diagnoses Not on filedocumented in this encounter
--- OUTSIDE RECORDS SUMMARY | 2025-02-19 15:56 | XMS_ITS | Encounter Summary ---
Author Organization [employer] ([place], [place], [place], [place], [place]) Address [address] [place] [address] Care Team Providers Care Plumber Assistant Name Role Phone Unavailable Primary Care Provider Unavailabl e Encounter Details Date Type Department Care Team (Late st Contact Info) Description 05/06/2019 Transcribed Document [facility] [place] [address] [place] [address] ProviderMg [place] [address] Social History Tobacco Use Types Packs/Day Years Used Date Smoking Tobacco: Never Assessed Sex and Gender Information Value Date Recorded Sex Assigned at Not on file Legal Sex Male 1:09 PM CDT Gender Identity Not on file Sexual Orientation Not on file documented as of this encounter Miscellaneous Notes * Cerner Conversion Note - Mg ProviderMD - 05/06/2019 9:45 AM MANAGER OF RECRUITING Spiritual Care Short Form Entered On: 05/06/2019 [...]
--- OUTSIDE RECORDS SUMMARY | 2025-02-19 15:56 | XMS_ITS | Encounter Summary ---
Author Organization [employer] ([place], [place], [place], [place], [place]) Address [address] [place] [address] Care Team Providers Care Solar Business Developer Name Role Phone Unavailable Primary Care Provider Unavailabl e Encounter Details Date Type Department Care Team (Late st Contact Info) Description 05/06/2019 Transcribed Document [facility] [place] [facility] [place] [address] ProviderMg MD [facility] [place] [address] Social History Tobacco Use Types Packs/Day Years Used Date Smoking Tobacco: Never Assessed Sex and Gender Information Value Date Recorded Sex Assigned at Not on file Legal Sex Male 1:09 PM CDT Gender Identity Not on file Sexual Orientation Not on file documented as of this encounter Miscellaneous Notes * Cerner Conversion Note - Mg ProviderMD - 05/06/2019 3:00 AM HAND BLOCKER Nutrition Assessment Entered On: 05/06/2019 8:41 EST [...] 05/06/2019 14:52 EST Electronically signed by Jackie, [facility] Conversion Duct Maker Cerner at 06/19/2022 10:48 PM CDT documented in this encounter Plan of Treatment Not on file documented as of this encounter Visit Diagnoses Not on filedocumented in this encounter
--- OUTSIDE RECORDS SUMMARY | 2025-02-19 15:56 | XMS_ITS | Encounter Summary ---
Author Organization [employer] ([place], [place], [place], [place], [place]) Address [address] [place] [address] Care Team Providers Care Executive Advisor Name Role Phone Unavailable Primary Care Provider Unavailabl e Encounter Details Date Type Department Care Team (Late st Contact Info) Description 05/05/2019 Transcribed Document [facility] [place] [address] [place] [address] ProviderMg MD [address] [place], [place] [address] Social History Tobacco Use Types Packs/Day Years Used Date Smoking Tobacco: Never Assessed Sex and Gender Information Value Date Recorded Sex Assigned at Not on file Legal Sex Male 1:09 PM CDT Gender Identity Not on file Sexual Orientation Not on file documented as of this encounter Miscellaneous Notes * Cerner Conversion Note - Historical ProviderMD - 05/05/2019 2:00 AM STAR ROUTE MAIL DRIVER Employment Clerk Details Entered On: 05/05/2019 0:59 EST Performed [...]
--- OUTSIDE RECORDS SUMMARY | 2025-02-19 15:56 | XMS_ITS | Encounter Summary ---
Author Organization [employer] ([place], [place], [place], [place], [place]) Address [address] [place] [address] Care Team Providers Care Conduit Cleaner Name Role Phone Unavailable Primary Care Provider Unavailabl e Encounter Details Date Type Department Care Team (Late st Contact Info) Description 05/05/2019 Transcribed Document [facility] [place] Family Medicine [facility] [place] [address] ProviderMg MD [facility] [place] [address] Social History Tobacco Use Types Packs/Day Years Used Date Smoking Tobacco: Never Assessed Sex and Gender Information Value Date Recorded Sex Assigned at Not on file Legal Sex Male 1:09 PM CDT Gender Identity Not on file Sexual Orientation Not on file documented as of this encounter Miscellaneous Notes * Cerner Conversion Note - Historical ProviderMD - 05/05/2019 5:00 PM FLOW MATCH SOFA CUTTER Chart Check - Review Order Profile Entered On: 05/05/2019 20:01 EST Performed On: 05/05/2019 17:00 EST by YANG CHANG RN Chart Check Powerplans Initiated/Discontinued as Appropriate : Yes YANG CHANG RN - 05/05/2019 20:01 EST Electronically signed by Morales Mejia Conversion Mental Health Nurse Practitioner [employer]ner at 06/19/2022 11:04 PM CDT documented in this encounter Plan of Treatment Not on file documented as of this encounter Visit Diagnoses Not on filedocumented in this encounter
--- OUTSIDE RECORDS SUMMARY | 2025-02-19 15:56 | XMS_ITS | Encounter Summary ---
Author Organization [employer] ([place], [place], [place], [place], [place]) Address [address] [place] [address] Care Team Providers Care Drum Plater Name Role Phone Unavailable Primary Care Provider Unavailabl e Encounter Details Date Type Department Care Team (Late st Contact Info) Description 05/03/2019 Transcribed Document [facility] [place] [facility] [place] [address] ProviderMg MD [facility] [place] [address] Social History Tobacco Use Types Packs/Day Years Used Date Smoking Tobacco: Never Assessed Sex and Gender Information Value Date Recorded Sex Assigned at Not on file Legal Sex Male 1:09 PM CDT Gender Identity Not on file Sexual Orientation Not on file documented as of this encounter Miscellaneous Notes * Cerner Conversion Note - Historical ProviderMD - 05/03/2019 5:00 AM PHARMACY TECHNICIAN Chart Check - Review Order Profile Entered On: 05/03/2019 4:03 EST Performed On: 05/03/2019 5:00 EST by Carlos Ojeda RN Chart Check Powerplans Initiated/Discontinued as Appropriate : Yes All Active Orders Reviewed : Yes Carlos Ojeda RN - 05/03/2019 4:03 EST documented in this encounter Plan of Treatment Not on file documented as of this encounter Visit Diagnoses Not on filedocumented in this encounter
--- OUTSIDE RECORDS SUMMARY | 2025-02-19 15:56 | XMS_ITS | Encounter Summary ---
Author Organization [employer] ([place], [place], [place], [place], [place]) Address [address] [place] [address] Care Team Providers Care River Transportation Worker Name Role Phone Unavailable Primary Care Provider Unavailabl e Encounter Details Date Type Department Care Team (Late st Contact Info) Description 05/07/2019 Transcribed Document [facility] [place] [facility] [place] [address] ProviderMg MD [place] [address] Social History Tobacco Use Types Packs/Day Years Used Date Smoking Tobacco: Never Assessed Sex and Gender Information Value Date Recorded Sex Assigned at Not on file Legal Sex Male 1:09 PM CDT Gender Identity Not on file Sexual Orientation Not on file documented as of this encounter Miscellaneous Notes * Cerner Conversion Note - Historical ProviderMD - 05/07/2019 5:00 AM WAYS OPERATOR Chart Check - Review Order Profile Entered On: 05/07/2019 8:35 EST Performed On: 05/07/2019 5:00 EST by Reyna Nicolas RN Chart Check All Active Orders Reviewed : Yes Reyna Nicolas RN - 05/07/2019 8:35 EST Electronically signed by Jackie [facility] Conversion Automatic Lehr Operator Heroner at 06/19/2022 10:53 PM CDT documented in this encounter Plan of Treatment Not on file documented as of this encounter Visit Diagnoses Not on filedocumented in this encounter
--- OUTSIDE RECORDS SUMMARY | 2025-02-19 15:56 | XMS_ITS | Encounter Summary ---
Author Organization [employer] ([place], [place], [place], [place], [place]) Address [address] [place] [address] Care Team Providers Care Boatbuilder Wood Name Role Phone Unavailable Primary Care Provider Unavailabl e Encounter Details Date Type Department Care Team (Late st Contact Info) Description 05/03/2019 Transcribed Document [facility] [place] Family Medicine [address] [place] [address] ProviderMg MD [facility] [place] [address] Social History Tobacco Use Types Packs/Day Years Used Date Smoking Tobacco: Never Assessed Sex and Gender Information Value Date Recorded Sex Assigned at Not on file Legal Sex Male 1:09 PM CDT Gender Identity Not on file Sexual Orientation Not on file documented as of this encounter Miscellaneous Notes * Cerner Conversion Note - Historical ProviderMD - 05/03/2019 9:34 AM AIR VALVE REPAIRER Spiritual Care Short Form Entered On: 05/03/2019 [...]
--- OUTSIDE RECORDS SUMMARY | 2025-02-19 15:56 | XMS_ITS | Encounter Summary ---
Author Organization [employer] ([place], [place], [place], [place], [place]) Address [address] [place] [address] Care Team Providers Care Chemistry Physics Teacher Name Role Phone Unavailable Primary Care Provider Unavailabl e Encounter Details Date Type Department Care Team (Late st Contact Info) Description 05/03/[address] [facility] [place] Family Medicine [address] [place] [address] ProviderMg MD [address] [place], [place] [address] Social History Tobacco Use Types Packs/Day Years Used Date Smoking Tobacco: Never Assessed Sex and Gender Information Value Date Recorded Sex Assigned at Not on file Legal Sex Male 1:09 PM CDT Gender Identity Not on file Sexual Orientation Not on file documented as of this encounter Miscellaneous Notes * Cerner Conversion Note - Historical ProviderMD - 05/03/2019 1:31 PM MANAGER OF ORGANIZATIONAL DEVELOPMENT UM Authorization Entered On: 05/03/2019 13:33 EST Performed On: 05/03/2019 13:31 EST by ARMANDO SHANNON RN-Utilization Review Primary Insurance Authorization Authorization and Policy Numbers : Insurance 1 Health Plan: [facility] Policy Number: Authorization Number: Insurance Primary Name : [employer] Authorization Status-Primary : Awaiting callback Authorized Service Begin Date-Primary : 05/03/2019 EST Authorization Comments-Primary : Uploaded clinicals to [employer] administrators via [employer]. Manually faxed [employer] form. Historical Authorization Comments-Primary : No Authorization Comments Found ARMANDO SHANNON RN-Utilization Review - 05/03/2019 13:31 EST documented in this encounter Plan of Treatment Not on file documented as of this encounter Visit Diagnoses Not on filedocumented in this encounter
--- OUTSIDE RECORDS SUMMARY | 2025-02-19 15:56 | XMS_ITS | Encounter Summary ---
Author Organization [employer] ([place], [place], [place], [place], [place]) Address [address] [place] [address] Care Team Providers Care Surgical Resident Name Role Phone Unavailable Primary Care Provider Unavailabl e Encounter Details Date Type Department Care Team (Late st Contact Info) Description 05/05/2019 Transcribed Document [facility] [place] [address] [place] [address] ProviderMg MD [facility] [place] [address] Social History Tobacco Use Types Packs/Day Years Used Date Smoking Tobacco: Never Assessed Sex and Gender Information Value Date Recorded Sex Assigned at Not on file Legal Sex Male 1:09 PM CDT Gender Identity Not on file Sexual Orientation Not on file documented as of this encounter Miscellaneous Notes * Cerner Conversion Note - Historical ProviderMD - 05/05/2019 5:00 AM SKEIN STRAIGHTENER Chart Check - Review Order Profile Entered On: 05/05/2019 5:44 EST Performed On: 05/05/2019 5:00 EST by Josefina March RN-Resource Chart Check Powerplans Initiated/Discontinued as Appropriate : Yes All Active Orders Reviewed : Yes Chart Reviewed With : Josefina March, RN-Resource Josefina March, RN-Resource - 05/05/2019 5:44 EST Electronically signed by Morales Mejia Conversion Aeronautical Project Engineer [employer] at 06/19/2022 11:00 PM CDT documented in this encounter Plan of Treatment Not on file documented as of this encounter Visit Diagnoses Not on filedocumented in this encounter
--- OUTSIDE RECORDS SUMMARY | 2025-02-19 15:56 | XMS_ITS | Encounter Summary ---
Author Organization [employer] ([place], [place], [place], [place], [place]) Address [address] [place] [address] Care Team Providers Care Bible Worker Name Role Phone Unavailable Primary Care Provider Unavailabl e Encounter Details Date Type Department Care Team (Late st Contact Info) Description 05/06/2019 Transcribed Document [facility] [place] Family Medicine [facility] [place] [address] ProviderMg MD [facility] [place] [address] Social History Tobacco Use Types Packs/Day Years Used Date Smoking Tobacco: Never Assessed Sex and Gender Information Value Date Recorded Sex Assigned at Not on file Legal Sex Male 1:09 PM CDT Gender Identity Not on file Sexual Orientation Not on file documented as of this encounter Miscellaneous Notes * [employer]ner Conversion Note - Mg ProviderMD - 05/06/2019 10:56 AM 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 : Yes TANVIR THAYER Rn-Mold Insert Changer - 05/06/2019 10:56 EST Narrative Progress Note Narrative Progress Note : Per RN in Multidisciplinary rounds patient is NPO for scheduled Cardiomems today. Having some nausea after Fe Infusions requested the infusion be held until after procedure so he can eat. CM will follow. TANVIR THAYER Rn-Mold Insert Changer - 05/06/2019 10:56 EST documented in this encounter Plan of Treatment Not on file documented as of this encounter Visit Diagnoses Not on filedocumented in this encounter
--- OUTSIDE RECORDS SUMMARY | 2025-02-19 15:56 | XMS_ITS | Encounter Summary ---
Author Organization [employer] ([place], [place], [place], [place], [place]) Address [address] [place] [address] Care Team Providers Care Bread Wrapping Machine Feeder Name Role Phone Unavailable Primary Care Provider Unavailabl e Encounter Details Date Type Department Care Team (Late st Contact Info) Description 05/03/2019 Transcribed Document [facility] [place] [facility] [place] [address] ProviderMg MD [facility] [place] [address] Social History Tobacco Use Types Packs/Day Years Used Date Smoking Tobacco: Never Assessed Sex and Gender Information Value Date Recorded Sex Assigned at Not on file Legal Sex Male 1:09 PM CDT Gender Identity Not on file Sexual Orientation Not on file documented as of this encounter Miscellaneous Notes * [employer]ner Conversion Note - Historical ProviderMD - 05/03/2019 8:[address] [facility] OT Charges Entered On: 05/03/2019 8:59 EST Performed On: 05/03/2019 8:59 EST by NAHUM CORNELIUS OTR/Kaushal Hager OT Charges Screen For Commissary Production Supervisor : 1 NAHUM CORNELIUS OTR/Kaushal - 05/03/2019 8:59 EST documented in this encounter Plan of Treatment Not on file documented as of this encounter Visit Diagnoses Not on filedocumented in this encounter
--- OUTSIDE RECORDS SUMMARY | 2025-02-19 15:56 | XMS_ITS | Encounter Summary ---
Author Organization [employer] ([place], [place], [place], [place], [place]) Address [address] [place] [address] Care Team Providers Care Linoleum Tile Layer Name Role Phone Unavailable Primary Care Provider Unavailabl e Encounter Details Date Type Department Care Team (Late st Contact Info) Description 05/06/2019 Transcribed Document [facility] [place] [facility] [place] [address] ProviderMg MD [facility] [place] [address] Social History Tobacco Use Types Packs/Day Years Used Date Smoking Tobacco: Never Assessed Sex and Gender Information Value Date Recorded Sex Assigned at Not on file Legal Sex Male 1:09 PM CDT Gender Identity Not on file Sexual Orientation Not on file documented as of this encounter Miscellaneous Notes * [employer]ner Conversion Note - Historical ProviderMD - 05/06/2019 5:00 AM WAXER TENDER Height and Weight, Routine Entered On: 05/07/2019 7:31 EST Performed On: 05/06/2019 5:00 EST by Bessie Lugo [facility] Height and Weight, Routine Routine Weight Source : Bed scale Routine Weight Entry Format : [place] Routine Weight, Pounds : 233 lb Routine Weight, Ounces : 1 oz Routine Weight Calculation : 105.94 kg Height Source : Stated Height Entry Format : [place] Height, Feet : 6 ft Height, Inches : 0 Inch Clinical Height : 182.88 cm Body Surface Area (BSA), Routine : 2.28 m2 Body Mass Index (BMI), Routine : 31.68 kg/m2 Bessie Lugo [facility] - 05/07/2019 7:30 EST Electronically signed by Otis Mejia Conversion Termite Control Service Representative [employer] at 06/19/2022 11:13 PM CDT documented in this encounter Plan of Treatment Not on file documented as of this encounter Visit Diagnoses Not on filedocumented in this encounter
--- OUTSIDE RECORDS SUMMARY | 2025-02-19 15:57 | XMS_ITS | Clinical Summary ---
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 Delta 9 gummies purchased in [place] Active Magnesium Chloride-Calciu m (Slow Magnesium/Calci um) 64-106 MG tablet delayed-release Take 1 tablet by mouth in the morning and 1 tablet before bedtime. 180 tablet 05/29/19 Active tamsulosin (Flomax) 0.4 MG 24 hr capsule Take 1 capsule (0.4 mg) by mouth 1 (one) time each day with dinner. 90 capsule 05/29/19 Active Additional Information Patient taking differently:0.4 mg Oral Daily with dinner,HOLDING DUE TO FREQUENT URINATION CURRENTLY, Reported on 01/28/2025 Metamucil Fiber 2 g chewable tablet Chew 1 each in the morning. Active acetaminophen (Tylenol) 325 MG tablet Take 3 tablets (975 mg) by mouth every 6 hours as needed for pain. 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 360 capsule 05/29/19 Active rosuvastatin (Crestor) 20 MG tablet Take 1 tablet (20 mg) by mouth nightly. 90 tablet 05/29/19 Active senna (Senokot) 8.6 MG tablet Take 1 tablet (8.6 mg) by mouth nightly. 90 tablet 05/29/19 Active polyethylene glycol (Miralax) 17 g packet Take 17 g by mouth daily as needed (constipation). 90 packet 05/29/19 Active montelukast (Singulair) 10 MG tablet Take 1 tablet (10 mg) by mouth nightly. 90 tablet 05/29/19 Active baclofen (Lioresal) 10 MG tabletIndicatio ns:LVAD (left ventricular assist device) present (CMS/HCC),Chron ic systolic heart failure Take 3 tablets (30 mg) by mouth nightly. 270 tablet 05/29/19 Active albuterol 108 (90 Base) MCG/ACT inhaler Inhale 1 puff 2 (two) times a day as needed for wheezing. 3 each 05/29/19 Active cetirizine (ZyrTEC) 10 MG tablet Take 1 tablet (10 mg) by mouth nightly. 90 tablet 05/29/19 Active buPROPion XL (Wellbutrin XL) 300 MG 24 hr tablet Take 1 tablet (300 mg) by mouth daily. Do not crush, chew, or split. 90 tablet 3 05/29/19 Active FLUoxetine (PROzac) 40 MG capsule Take 1 capsule (40 mg) by mouth daily. 90 capsule 05/29/19 Active omeprazole (PriLOSEC) [address] capsule Take 1 capsule (40 mg) by mouth daily. DO NOT CRUSH OR CHEW 90 capsule 05/29/19 Active fludrocortisone (Florinef) 0.1 MG tablet Take 1 tablet by mouth daily. 30 tablet 06/11/19 Active Additional Information Patient not taking.Reported on 01/28/2025 warfarin (Coumadin) 4 MG tablet Take 1 tablet by mouth in the evening. 90 tablet 06/11/19 Active Additional Information Patient taking differently:4 mg Oral Daily,CURRENTLY 3 MG DAILY, Reported on 01/28/2025 lactulose (Chronulac) 10 GM/15ML oral solution Take [...] fluid boluses 15 kit 5 09/21/19 Active diphenhydrAMINE (Banophen) 25 MG capsule TAKE 1 CAPSULE BY MOUTH TWO TIMES A DAY 60 capsule 11/06/19 Active sodium chloride 0.9 % bolus Infuse 1,000 mL into a venous catheter daily at 1,000 mL/hr over 60 minutes. 84527 mL 01/09/20 Active ipratropium (Atrovent) 0.02 % nebulizer solution Take 2.5 mL by nebulization 4 times a day as needed for wheezing. 75 mL 01/15/20 Active metoprolol succinate XL (Toprol-XL) 25 MG 24 hr tablet Take 1 tablet by mouth daily. Do not crush or chew. 90 tablet 3 01/29/20 Active sotalol (Betapace) 120 MG tablet Take 1 tablet by mouth 2 times a day. 180 tablet 3 01/29/20 026 Active metoprolol succinate XL (Toprol-XL) 25 MG 24 hr tablet Take 1 tablet (25 mg) by mouth daily. Do not crush or chew. 90 tablet 3 05/29/19 025 Discontinu ed(Reorder ) sotalol (Betapace) 120 MG tablet Take 1 tablet (120 mg) by mouth in the morning and 1 tablet (120 mg) before bedtime. 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) 100 mg PO 2 times daily 01/24/2025 5 Discontinued iron sucrose (Venofer) 200 mg in sodium chloride 0.9 % 250 mL IVPBIndications:Lo w iron,Iron deficiency 200 mg IV Every 24 hours 02/03/2025 5 Discontinued iron sucrose (Venofer) 200 mg in sodium chloride 0.9 % 250 mL IVPBIndications:Ir on deficiency 200 mg IV Every 24 hours 01/29/2025 5 Ended iron sucrose (Venofer) 200 mg in sodium chloride 0.9 % 250 mL IVPBIndications:Lo w iron,Iron deficiency 200 mg IV Every 24 hours 02/04/2025 5 Ended Active Problems Problem Noted Date Diagnosed Date Implantable cardioverter-def ibrillator (ICD) generator end of [...] affecting left non-dominant side 07/28/2023 Weakness 07/28/2023 Infection and inflammatory r eaction due to [...] nonischemic dilated cardiomyopathy/congestive heart failure, diagnosis per force adjustment supervisor, Dr. Leydi Hobbs. 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 FNA 11/13/18 - benign nodule. Cardiac arrest Pulmonary embolism Overview (08/31/2020): 2019 - On ventilator 2.5 months and sepsis/pneumonia was cause, states pt.'s . Resolved Problems Problem Noted Date Diagnosed Date Resolved Date Left ventricular assist charisma ce (LVAD) complication, initial encounter 04/05/2024 01/30/20 25 Draining postoperative wound , initial encounter 12/18/2023 01/29/2025 Dysuria 12/16/2023 01/29/2025 Overview (01/02/2024): Last Assessment & Plan: presents [...] when available and discuss treatment plan. COVID-19 10/04/2023 11/24/2024 COVID-19 virus infection 10/04/2023 [...] reassessed in ER setting. Overweight 09/06/2023 01/05/2025 Other visual disturbances 07/26/2023 Abnormal electrocardiogram (ECG) (EKG) 03/22/2023 11/24/2024 Left [...] Paresis of lower extremity 09/14/2020 0 05/24/2021 Impaired cognition 09/14/2020 Dysarthria 09/14/2020 05/24/[address] iveline of left ventricular assist device (LVAD) 09/01/2020 022 [place] (myocardial infarction) 08/31/2020 1 03/31/2024 Benign hypertensive heart di sease with heart failure 08/25/2020 01/29/2025 Left ventricular assist device complication 08/25/2020 05/24/2021 [...] displacement 04/03/201705/24 CHF (congestive heart failure) 01/05/2021 Hypertension 01/29/2025 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 [place] [address] Melisa Lara MD HCN - Patient Message 02/11/2025 Anticoagulation - Warfarin Visit [facility] [address] [place] [phone] Edith Aleman, RN LVAD (left ventricular assist device) present ([facility]) (Primary Dx); Anticoagulant long-term use 02/03/2025 Telephone [facility] [address] [place] [phone] Cierra Orellana MD HCN - Patient Message 02/03/2025 Refill [facility] [address] [phone] Edith Aleman, RN Low iron; Iron deficiency 02/03/2025 Anticoagulation - Warfarin Visit [facility] [address] [phone] Edith Aleman, RN LVAD (left ventricular assist device) present ([facility]) (Primary Dx); Anticoagulant long-term use 02/03/2025 Refill [facility] [address] [phone] Edith Aleman, RN Low iron; Iron deficiency 01/29/2025 7:39 AM EST - 01/29/2025 11:59 PM EST Hospital Encounter Cardiac Imaging [address] [place] [address] Biventricular ICD (implantable cardioverter-defibrilla tor) in place Discharge Disposition: Home or Self Care 01/29/2025 Refill [facility] [address] [phone] Edith Aleman, RN Iron deficiency (Primary Dx) 01/29/2025 Refill [facility] [address] [phone] Edith Aleman, RN Low iron (Primary Dx); Iron deficiency 01/29/2025 Travel 01/28/2025 10:00 AM EST Ancillary Procedure [facility] 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; Ventricular tachycardia (CMS/HCC); PAF (paroxysmal atrial fibrillation); NICM (nonischemic cardiomyopathy) (CMS/HCC); HFrEF (heart failure with reduced ejection fraction); Cardiac resynchronization therapy defibrillator (SCREEN DOOR MAKER-D) in place 01/28/2025 8:57 AM EST - 01/28/2025 11:59 PM EST Hospital Encounter Cardiac Imaging [address] [place] [address] LVAD (left ventricular assist device) present (CMS/HCC); 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 Discharge Disposition: Home or Self Care 01/28/2025 Travel 01/28/2025 Anticoagulation - Warfarin Visit [facility] [address] [phone] Edith Aleman, RN LVAD (left ventricular assist device) present (CMS/HCC) (Primary Dx); Anticoagulant long-term use 01/27/2025 Refill [facility] [address] [facility] 1st Floor [address] [phone] Edith Aleman, RN 01/27/2025 Orders Only [facility] [address] [place] [id number] Parish Dyer MD 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) (Primary Dx) 01/20/2025 1:30 PM EST - 01/20/2025 11:59 PM EST Hospital Encounter Cardiac Imaging [address] [place] [address] ICD (implantable cardioverter-defibrilla tor) in place Discharge Disposition: Home or Self Care 01/20/2025 Travel 01/20/2025 Anticoagulation - Warfarin Visit [facility] [address] [phone] Edith Aleman, RN LVAD (left ventricular assist device) present ([facility]) (Primary Dx); Anticoagulant long-term use 01/14/2025 Refill [facility] [address] [place] [phone] Martine Taylor, RN 01/08/2025 Refill [facility] [address] [phone] Edith Aleman, RN 01/07/2025 Telephone [facility] [address] [facility] [phone] Melisa Lara MD 01/06/2025 12:34 PM EST - 01/06/2025 11:59 PM EST Hospital Encounter Cardiac Imaging [address] [place] [address] ICD (implantable cardioverter-defibrilla tor) in place Discharge Disposition: Home or Self Care 01/06/2025 Travel 01/06/2025 Anticoagulation - Warfarin Visit [facility] [address] [phone] Gracia Vizcarra, RN LVAD (left ventricular assist device) present ([facility]/HCC) (Primary Dx); Anticoagulant long-term use 12/30/2024 Telephone [facility] [address] [place] [address] Mleisa Lara MD Patient Aids requesting office notes 12/28/2024 Anticoagulation - Warfarin Visit [address] Floor [place] [phone] Gracia Vizcarra, RN LVAD (left ventricular assist device) present (CMS/HCC) (Primary Dx); Anticoagulant long-term use 12/25/[address] [phone] Edith Aleman, RN 12/24/2024 Orders Only [address] [phone] Edith Aleman, RN 12/23/2024 12:44 PM EDT - 12/23/2024 11:59 PM EDT Hospital Encounter Cardiac Imaging [address] [place] [phone] Biventricular ICD (implantable cardioverter-defibrilla tor) in place Discharge Disposition: Home or Self Care 12/23/2024 Travel 12/23/2024 Anticoagulation - Warfarin Visit [address] [phone] Edith Aleman, RN LVAD (left ventricular assist device) present (CMS/HCC) (Primary Dx); Anticoagulant long-term use 12/20/2024 10:46 AM EDT - 12/20/2024 11:59 PM EDT Hospital Encounter Cardiac Imaging [address] [place] [address] Biventricular ICD (implantable cardioverter-defibrilla tor) in place Discharge Disposition: Home or Self Care 12/20/[address] [phone] Elisabet Raya MD 12/20/2024 Travel 12/18/2024 Orders Only [address] [phone] Edith Aleman, RN Cerebrovascular accident (CVA) due to embolism of cerebral artery (Primary Dx) 12/18/2024 Orders Only [facility] [address] [place] [address] Edith Aleman, RN Cerebrovascular accident (CVA) due to embolism of cerebral artery (Primary Dx) 12/17/2024 Telephone [facility] [address] [facility] [place] [address] Real Mclaughlin MD HCN - Patient Message 12/12/2024 Anticoagulation - Warfarin Visit [facility] [address] [facility] 1st Floor [address] [place] [address] Edith Aleman RN LVAD (left ventricular assist device) present ([facility]) (Primary Dx); Anticoagulant long-term use 12/01/2024 Anticoagulation - Warfarin Visit [facility] [address] [facility] 1st [address] [place] [address] Martine Taylor RN LVAD (left ventricular assist device) present ([facility]) (Primary Dx); Anticoagulant long-term use from Last 3 Months Immunizations Immunization Administration Dates Next Due Hep A, Adult 11/07/2018,03/21/2018 Influenza, injectable, quadrivalent 11/01/2021 Influenza, injectable, quadr ivalent, preservative free 02/13/2023,12/04/2019 Influenza, seasonal, injectable 02/05/2021,11/27,11/14/2016 Influenza, seasonal, injecta ble, preservative free 12/13/2023 [facility] COVID-19 Vac cine (Purple Cap) 12+ 06/02/2020,05/08/2020 [...] drink first t janine 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) to steady your nerves or [...] Pressure 81/69 04/19/2024 11:50 AM EST Pulse 80 01/28/2025 10:06 AM EST Temperature 36.6 C (97.8 F) 2024 2:46 AM EST Respiratory Rate 18 2024 2:46 AM EST Oxygen Saturation 96% 01/28/2025 10:06 AM EST Inhaled Oxygen Concentration - - Weight 74.8 kg (165 lb) 01/28/2025 10:06 AM EST Height 182.9 cm (6') 01/28/2025 10:06 AM EST Body Mass Index 22.38 01/28/2025 10:06 AM EST Plan of Treatment Upcoming Encounters Date Type Department Care Team (Late st Contact Info) Description 04/22/2025 9:00 AM EST Ancillary Procedure [facility] [address] [place] [address] Health Maintenance Due Date Last Done Comments [facility]-Infant/Child/Adol SDOH Screenings 1970 [facility]-Hepatitis B Vaccines (1 of 3 - 19+ 3-dose series) 1988 [facility]-Zoster Vaccines (1 of 2) 1988 CT Colonography 2014 Colonoscopy 2014 FIT-DNA 2014 FIT 2014 FOBT 2014 Sigmoidoscopy 2014 [facility]-Colorectal Cancer Screening 2014 [facility]- SDOH Screenings 10/06/2024 [facility]-Adult SDOH Screenings 10/06/2024 04/08/2024 [id number] Vaccine ( season) 2024 02/08/2021, 06/02/2020, 05/08/2020 [...] 2023, 09/18/2021, 05/17/2019 [facility]-Obesity Intervention Completed 025, 02/03/2025, 01/28/2025, Additional history exists HPV Vaccines (No Doses Required) Completed [facility]-HIB Vaccines Aged Out No longer e [...] a wedding in November in [place] LVAD Bmet Goal General On track( 024 11:53 AM EDT) Yes Katrin Oviedo, RN Note: - 07/04/23: Patient states he wants to meet his grandchild when they are born in November Medical Devices Implanted Type 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 Assembler Small Products Device Identifier Shelf Expiration Date Model / Serial / Lot Lvad-06/06/2019 Implanted:04/2019 by Nathaniel Garcia MD (Quantity not on file) LVAD Left: [employer] / [id number] / [id number] Quartet [id number] Lead [id number] QUARTET / [id number] / [id number] Tendril Sts [id number] Lead 2088TC TENDRIL STS / [id number] / [id number] Endotak [place] G [id number] Lead 0185 ENDOTAK RELIANCE G / [id number] / [id number] Quadra Assura Mp [id number] Implanted:07/2017 (Quantity not on file) Pacemaker 3369-40C QUADRA ASSURA MP / [id number] / Envelope Tyrx Icd Large - [id number] Implanted:Qty: 1 on 12/07/2023 by Melisa Lara MD at [facility] [id number] 08/26/2024 [id number] / [id number] Stent Graft Iliac [id number] m Viabahnbx - [id number] Implanted:Qty: 1 on 04/11/2024 by Dung Nunez MD at [place] [id number] 07/31/2025 [id number] / [id number] / [id number] Stent Graft Iliac [id number] m Viabahnbx - [id number] Implanted:Qty: 1 on 04/11/2024 by Dung Nunez MD at [place] [id number] 04/17/2026 [id number] / [id number] / [id number] Stent Graft Iliac [id number] m Viabahnbx - [id number] Implanted:Qty: 1 on 04/11/2024 by Dung Nunez MD at [place] [address] 04/15/2026 [id number] / [id number] / [id number] Stent Graft Iliac [id number] m Viabahnbx - [id number] Implanted:Qty: 1 on 04/11/2024 by Dung Nunez MD at [place] [address] 06/10/2026 [id number] / [id number] / [id number] Stent Graft Iliac [id number] m [employer]ah[employer]x - [id number] Implanted:Qty: 1 on 04/11/2024 by Dung Nunez MD at [place] [id number] 07/28/2026 [id number] / [id number] / [id number] Procedures Procedure Name Priority Date/Time Associated Diagnosis Comments EXTERNAL PROTHROMBIN TIME (PT)/INR Routine 02/10/2025 EXTERNAL PROTHROMBIN TIME (PT)/INR Routine 02/02/2025 CARDIAC DEVICE CHECK CHECK - REMOTE ALERT Routine 01/29/2025 7:40 AM EST Biventricular ICD (implantable cardioverter-defibri llator) in place ECHO, ADULT TRANSTHORACIC COMPLETE Routine 01/28/2025 9:38 AM EST LVAD (left ventricular assist device) present (CMS/HCC) intermediate current use of anticoagulant therapy IRON & TOTAL IRON BINDING CAPACITY, PLASMA (INCLUDES TRANSFERRIN) Add-On 01/28/2025 9:02 AM EST intermediate current use of anticoagulant therapy PROTHROMBIN TIME(PT) / INR Routine 01/28/2025 9:02 AM EST LVAD (left ventricular assist device) present (CMS/HCC) 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 N-TERMINAL PROBNP, PLASMA Routine 01/28/2025 9:02 AM EST LVAD (left ventricular assist device) present (CMS/HCC) 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 LACTATE DEHYDROGENASE, PLASMA Routine 01/28/2025 9:02 AM EST LVAD (left ventricular assist device) present (CMS/HCC) intermediate current use of anticoagulant therapy CBC W/O DIFFERENTIAL Routine 01/28/2025 9:02 AM EST LVAD (left ventricular assist device) present (CMS/HCC) 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 COMPREHENSIVE METABOLIC PANEL, PLASMA Routine 01/28/2025 9:02 AM EST LVAD (left ventricular assist device) present (CMS/HCC) intermediate current use of anticoagulant therapy EXTERNAL PROTHROMBIN TIME (PT)/INR Routine 01/27/2025 ANTIMICROBIAL SUSCEPTIBILITY - ISELA, INDIVIDUAL (SO) Routine 01/21/2025 11:32 AM EST LVAD (left ventricular assist device) present (CMS/HCC) 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) WOUND CULTURE AND GRAM STAIN Routine 01/21/2025 11:32 AM EST LVAD (left ventricular assist device) present (CMS/HCC) 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 CARDIAC DEVICE CHECK - REMOTE - ICD Routine 01/20/2025 1:31 PM EST ICD (implantable cardioverter-defibri llator) in place EXTERNAL PROTHROMBIN TIME (PT)/INR Routine 01/20/2025 CARDIAC DEVICE CHECK CHECK - REMOTE ALERT [...] 12/11/2024 EXTERNAL PROTHROMBIN TIME (PT)/INR Routine 12/01/2024 HEMOGLOBIN A1C Routine 02/13/2024 11:38 AM EST LVAD (left ventricular assist device) present (CMS/HCC) 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 External INR - Internormal Ratio 2.1 External Prothrombin Time (PT) Blood Venous blood specimen / Unknown 02/10/2025 [facility] Provider POINT OF CARE TEST ENTER/SHERIF T ORDERABLES Final Result * CARDIAC DEVICE CHECK - REMOTE ALERT - ICD (01/29/2025 7:40 AM EST) Only the most recent of4 resultswithin the time period is included. Anatomical Region Laterality Modality Other Narrative 01/29/2025 9:29 AM EST [facility] - Remote CIED alert (non-scheduled) Name: Jose Pearson Date: 01/29/2025 : 1970 Age: 54 y.o. Indication for alert: VT event, treated with ATPx1 Device: Assembler Small Products: Hall SCREEN DOOR MAKER-ICD Summary: As above, occurring yesterday at 1:43pm. [...] CARDIAC DEV ICE PROCEDURES Final Result * ECHO, ADULT TRANSTHORACIC COMPLETE (01/28/2025 9:38 [...] APRN CV ECHO PROCEDURES Final Re sult * (ABNORMAL) N-Terminal Probnp, Plasma (01/28/2025 9:02 AM EST) N-Terminal, PROBNP, Plasma 3,594(H) 0 - 899 pg/mL 01/28/2025 11:17 AM EST [facility] Blood Venous blood specimen / Unknown Venipuncture / Unknown 01/28/2025 9:02 AM EST 01/28/2025 10:44 AM EST us Marti Cherry APRN LAB BLOOD ORDERABLES Final Result Performing Organization Address [facility] Co de Phone Number [facility] [address] [place] [address] * (ABNORMAL) Iron & Total Iron Binding Capacity, Plasma (Includes Transferrin) (01/28/2025 9:02 AM EST) Iron, Plasma 11(L) 50 - 170 ug/dL 01/28/2025 12:04 PM EST [facility] Transferrin, Plasma 305 200 - 360 mg/dL 01/28/2025 12:04 PM EST [facility] Total Iron Binding Capacity, Plasma 381 240 - 450 ug/mL 01/28/2025 12:04 PM EST [facility] Transferrin Saturation 3(L) 14 - 50 % 01/28/2025 12:04 PM EST [facility] Blood Venous blood specimen / Unknown Venipuncture / Unknown 01/28/2025 9:02 AM EST 01/28/2025 10:44 AM EST us Cierra Orellana MD LAB BLOOD ORDERABLES Final Result Performing Organization Address City/[facility] Co de Phone Number [facility] [address] [place] [address] * (ABNORMAL) Prothrombin Time/INR (01/28/2025 9:02 AM EST) Prothrombin Time 31.0(H) 12.0 - 14.3 sec LAB COAGULATION METHOD 01/28/2025 11:06 AM EST [facility] INR 3.0(H) 0.9 - 1.1 LAB COAGULATION METHOD 01/28/2025 11:06 AM EST [facility] Blood Venous blood specimen / Unknown Venipuncture / Unknown 01/28/2025 9:02 AM EST 01/28/2025 10:44 AM EST Narrative [facility] - 01/28/2025 11:06 AM EST [...] of recurrent [place] INR 2.5 to 3.5 us Marti Cherry LINE PILOT LAB BLOOD ORDERABLES Final Result [facility] [address] [place] [address] * (ABNORMAL) CBC W/O Differential (01/28/2025 9:02 AM EST) WBC Count 7.34 3.70 - 10.30 10*3/uL LAB HEMATOLOGY METHOD 01/28/2025 11:23 AM EST [facility] RBC Count 4.57(L) 4.60 - 6.10 10*6/uL LAB HEMATOLOGY METHOD 01/28/2025 11:23 AM EST [facility] HGB 8.4(L) 13.7 - 17.5 g/dL LAB HEMATOLOGY METHOD 01/28/2025 11:23 AM EST [facility] HCT 29.1(L) 40.0 - 51.0 % LAB HEMATOLOGY METHOD 01/28/2025 11:23 AM EST [facility] Platelet Count 314 155 - 369 10*3/uL LAB HEMATOLOGY METHOD 01/28/2025 11:23 AM EST [facility] MCV 64(L) 79 - 98 fL LAB HEMATOLOGY METHOD 01/28/2025 11:23 AM EST [facility] MCH 18.4(L) 26.0 - 32.0 pg LAB HEMATOLOGY METHOD 01/28/2025 11:23 AM EST [facility] MCHC 28.9(L) 30.7 - 35.5 g/dL LAB HEMATOLOGY METHOD 01/28/2025 11:23 AM EST [facility] RDW 21.1(H) 11.5 - 14.5 % LAB HEMATOLOGY METHOD 01/28/2025 11:23 AM EST [facility] MPV 9.2 8.8 - 12.5 fL LAB HEMATOLOGY METHOD 01/28/2025 11:23 AM EST [facility] nRBC 0.0 <=0.0 per 100 WBCs LAB HEMATOLOGY METHOD 01/28/2025 11:23 AM EST [facility] Blood Venous blood specimen / Unknown Venipuncture / Unknown 01/28/2025 9:02 AM EST 01/28/2025 10:51 AM EST Marti Skipola [facility] LAB BLOOD ORDERABLES Final Result Performing Organization Address [facility]/ZIP Co de Phone Number [facility] [address] [place] [address] * Lactate Dehydrogenase, Plasma (01/28/2025 9:02 AM EST) LDH, Plasma 237 116 - 250 U/L 01/28/2025 11:17 AM EST [facility] Comment:Hemolyzed, result ma y be falsely increased. Blood Venous blood specimen / Unknown Venipuncture / Unknown 01/28/2025 9:02 AM EST 01/28/2025 10:44 AM EST Marti Shell [facility] LAB BLOOD ORDERABLES Final Result Performing Organization Address [facility] Co de Phone Number [facility] [address] [place] [address] * (ABNORMAL) Comprehensive Metabolic Panel, Plasma (01/28/2025 9:02 AM EST) Glucose, Plasma 106(H) 74 - 99 mg/dL 01/28/2025 11:17 AM EST [facility] BUN, Plasma 15 7 - 21 mg/dL 01/28/2025 11:17 AM EST [facility] Creatinine, Plasma 0.55(L) 0.70 - 1.20 mg/dL 01/28/2025 11:17 AM EST [facility] BUN/Creatinine Ratio 27 01/28/2025 11:17 AM EST [facility] Sodium, Plasma 139 136 - 145 mmol/L 01/28/2025 11:17 AM EST [facility] Potassium, Plasma 3.9 3.6 - 4.9 mmol/L 01/28/2025 11:17 AM EST [facility] Chloride, Plasma 104 97 - 107 mmol/L 01/28/2025 11:17 AM EST [facility] CO2, Plasma 24 22 - 29 mmol/L 01/28/2025 11:17 AM EST [facility] Anion Gap 11 6 - 16 mmol/L 01/28/2025 11:17 AM EST [facility] Total Calcium, Plasma 8.1(L) 8.9 - 10.2 mg/dL 01/28/2025 11:17 AM EST [facility] Total Protein 6.9 6.3 - 7.9 g/dL 01/28/2025 11:17 AM EST [facility] Albumin, Plasma 3.2(L) 3.5 - 5.2 g/dL 01/28/2025 11:17 AM EST [facility] AST, Plasma 47 10 - 50 U/L 01/28/2025 11:17 AM EST [facility] Comment:Hemolyzed, result ma y be falsely increased. ALT, Plasma 41 10 - 50 U/L 01/28/2025 11:17 AM EST [facility] Alkaline Phosphatase, Plasma 65 40 - 115 U/L 01/28/2025 11:17 AM EST [facility] Total Bilirubin, Plasma 1.0 0.2 - 1.1 mg/dL 01/28/2025 11:17 AM EST [facility] eGFRcr 117.0 mL/min/1.7 3m*2 01/28/2025 11:17 AM EST [facility] Comment:Reported eGFRcr in m L/min/1.73m2 is based the CKD-EPI 2020 equation that does not use a race coefficient. Blood Venous blood specimen / Unknown Venipuncture / Unknown 01/28/2025 9:02 AM EST 01/28/2025 10:44 AM EST us Marti Cherry APRN LAB BLOOD ORDERABLES Final Result [facility] [address] [place] [address] * Antimicrobial Susceptibility- ISELA (SO) (01/21/2025 11:32 AM EST) See Scanned Result SEE SCANNED DOCUMENT 02/01/2025 1:00 PM EST [facility] Swab Topography unknown / Unknown Non-blood Collection / Unknown 01/21/2025 11:32 AM EST 01/21/2025 12:00 PM EST Bita Dyer MD LAB REF LAB BLOOD A ND FLUID ORD Final Result [facility] [address] [place] [address] * (ABNORMAL) Wound Culture and Gram Stain (01/21/2025 11:32 AM EST) CULTURE READING WOUND Light Growth 01/27/2025 2:28 PM EST [facility] CULTURE READING WOUND Corynebacterium amycolatum(A) 01/27/2025 2:28 PM EST [facility] Comment: This isolate has been identified using the FDA Approved MALDI Availigentyper [place] System The organism value for this result has been updated. These results have been appended to the previously preliminary verified report. Edited result: Previously reported as Gram positive samuel on 01/24/2025 at 0826 EST. Gram Stain Result Rare Polymorphonuclear leukocytes(A) 01/27/2025 2:28 PM EST [facility] Gram Stain Result Rare Gram positive rods(A) 01/27/2025 2:28 PM EST [facility] Gram Stain Result Rare Gram positive cocci in pairs(A) 01/27/2025 2:28 PM EST [facility] Swab Topography unknown / Unknown Non-blood Collection / Unknown 01/21/2025 11:32 AM EST 01/21/2025 12:00 PM EST Narrative [facility] - 01/27/2025 2:28 PM EST [...] LAB MICROBIOLOGY - GENERAL ORDERABLES Final Result [facility] [address] [place] [address] * CARDIAC DEVICE CHECK - REMOTE - [...] to auto, impedance is stable. Has LVAD Dina Saldana APRN CV IMPLANTABLE CARDIAC DEV ICE PROCEDURES Final Result * Hemoglobin A1c (02/13/2024 11:38 AM EST) Hemoglobin A1c 5.2 <5.7 % 02/13/2024 12:50 PM EST [facility] Blood Venous blood specimen / Unknown Venipuncture / Unknown 02/13/2024 11:38 AM EST 02/13/2024 11:52 AM EST Narrative [facility] - 02/13/2024 12:50 PM EST HA1C Interpretive Data: Diagnosis of Diabetes: Diabetic > or = 6.5% Pre-diabetic 5.7 to 6.4% Non-diabetic < or = 5.6% Glycemic Targets for Type I and Type II Diabetics: Non- Adults <7.0% Adults <6.0% Children and Adolescents <7.5% Source: [place] [employer]. Standards of medical care in diabetes,2017. Diabetes Care.2017:40 (suppl 1):S1-S135. HbA1c assay performed by an ion-exchange chromatography method that is certified traceable to the DCCT. us Marti Cherry APRN LAB BLOOD ORDERABLES Final Result [facility] [address] [place] [address] * ED HIV 1/2 Antibody/Antigen Screen w/Reflex to HIV 1/2 Differentiation (12/18/2023 11:15 AM EDT) HIV 1 & 2 Antibody/Antigen Screen Non Reactive Non Reactive 12/18/2023 12:53 PM EDT [facility] Comment:Screening for HIV 1 & 2 antibodies, and P24 antigen is NONREACTIVE. No confirmatory testing is required. Blood Venous blood specimen / Unknown Venipuncture / Unknown 12/18/2023 11:15 AM EDT 12/18/2023 11:31 AM EDT us Mayito Gunn MD LAB BLOOD ORDERABLES Final Res ult [facility] [address] [place] [address] * Hepatitis C Antibody - ED (12/18/2023 11:15 AM EDT) Hepatitis C Antibody Negative Negative 12/18/2023 12:39 PM EDT [facility] Blood Venous blood specimen / Unknown Venipuncture / Unknown 12/18/2023 11:15 AM EDT 12/18/2023 11:31 AM EDT us Mayito Gunn MD LAB BLOOD ORDERABLES Final Res ult [facility] [address] [place] [address] from Last 3 Months or Most Recently Relevant to Health Maintenance Additional Health Concerns Infection Onset 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 Yes Care Teams Auto Body Painter Relationship Specialty Start Date End Date Herberth Perez MD [address] [place] [address] [place] [address] PCP - General 07/17/20 Gracia Petersen, LORI [address] [place] [address] Nurse Practitioner Internal Medicine 08/06/20 Yunior Solorzano MD [address] [phone] Consulting Physician Gastroenterology 07/18/22 Ross Baez DO [address] [address] Surgeon Cardiothoracic Surgery 07/18/22 Edith Aleman, BOOKMOBILE CLERK None VAD Coordinator 10/14/24
--- OUTSIDE RECORDS SUMMARY | 2025-02-19 15:57 | XMS_ITS | Encounter Summary ---
Author Organization [facility] Address [address] [facility] [place] [address] Care Team Providers Care Service Center Appraiser Name Role Phone Herberth Perez MD Primary Care Provider Katrin Oviedo RN Unavailable [phone] Zaida Lafleur PROMOTION MANAGER Unavailable Gracia Petersen PROMOTION MANAGER Unavailable Yunior Solorzano MD Unavailable [phone] Ross Baez DO Unavailable Edith Aleman RN Unavailable Unavailable Reason for Visit * Reason Comments Med Refill Encounter Details Date Type Department Care Team (Late st Contact Info) Description 08/14/2022 Refill [facility] [place] [address] [facility] [place] [phone] Elisabet Ryaa MD [address] [place] [address] Social History Tobacco Use Types [...] drink first t janine in the morning (EYE-HYDRAULIC BLOCKER) to steady your nerves or to get [...] Description 04/22/2025 9:00 AM EST Ancillary Procedure [facility] [place] [address] [facility] [place] [address] documented as of this encounter Visit Diagnoses [...] documented as of this encounter Care Teams Service Center Appraiser Relationship Specialty Start Date End Date Herberth Perez MD [address] [place] [address] [place] [address] PCP - General 07/17/20 Katrin Oviedo RN [facility] [address] [place] [address] VAD Coordinator Cardiology 08/06/20 10/21/24 Zaida Lafleur APRN [address] [place] [address] Nurse Practitioner Advanced Heart Failure and Transplant Cardiology 08/06/20 06/11/23 Gracia Petersen APRN [address] [place] [address] Nurse Practitioner Internal Medicine 08/06/20 Yunior Solorzano MD [address] [place] [address] Consulting Physician Gastroenterology 07/18/22 Ross Baez, DO [address] [address] Surgeon Cardiothoracic Surgery 07/18/22 Edith Aleman, WIRE FRAME LAMPSHADE MAKER None VAD Coordinator 10/14/24 documented as of this encounter
--- OUTSIDE RECORDS SUMMARY | 2025-02-19 15:57 | XMS_ITS | Encounter Summary ---
Author Organization [employer] ([place], [place], [place], [place], [place]) Address [address] [place] [address] Care Team Providers Care Ems Instructor Name Role Phone Unavailable Primary Care Provider Unavailabl e Encounter Details Date Type Department Care Team (Late st Contact Info) Description 05/06/2019 Transcribed Document [facility] Family Medicine [address] [place] [address] ProviderMg MD [address] [place], [place] [address] Social History Tobacco Use Types Packs/Day Years Used Date Smoking Tobacco: Never Assessed Sex and Gender Information Value Date Recorded Sex Assigned at Not on file Legal Sex Male 1:09 PM CDT Gender Identity Not on file Sexual Orientation Not on file documented as of this encounter Miscellaneous Notes * [employer] Conversion Note - Historical ProviderMD - 05/06/2019 10:45 AM JOINT SPECIAL OPERATIONS Event Note Entered On: 05/06/2019 10:47 EST [...] Erika Robles RN - 05/06/2019 10:45 EST Electronically signed by Morales Mejia Conversion Wire Straightening Machine Operator Cerner at 06/19/2022 10:58 PM CDT documented in this encounter Plan of Treatment Not on file documented as of this encounter Visit Diagnoses Not on filedocumented in this encounter
--- OUTSIDE RECORDS SUMMARY | 2025-02-19 15:57 | XMS_ITS | Encounter Summary ---
Author Organization [facility] Address [address] [place] [address] Care Team Providers Care Projection Technician Name Role Phone Herberth Perez MD Primary Care Provider Katrin Oviedo RN Unavailable [phone] Zaida Lafleur PANMAN Unavailable Gracia Petersen PANMAN Unavailable Yunior Solorzano MD Unavailable [phone] Ross Baez DO Unavailable Edith Aleman RN Unavailable Unavailable Reason for Visit * Reason Comments Med Refill Encounter Details Date Type Department Care Team (Late st Contact Info) Description 06/23/2022 [facility]ill [facility] [address] [place] [phone] Mayra Arroyo MD [address] [facility] 7th [facility] [address] [place] [address] Social History Tobacco Use Types Packs/Day Years [...] Description 04/22/2025 9:00 AM EST Ancillary Procedure [facility] [address] [place] [address] documented as of this encounter Visit Diagnoses [...] documented as of this encounter Care Teams Projection Technician Relationship Specialty Start Date End Date Herberth Perez MD [address] [place] [address] [place] [address] PCP - General 07/17/20 Katrin Oviedo, M[facility]CARM[facility] [address] [place] [address] VAD Coordinator Cardiology 08/06/20 10/21/24 Zaida Lafleur APRN [address] [place] [address] Nurse Practitioner Advanced Heart Failure and Transplant Cardiology 08/06/20 06/11/23 Gracia Petersen, PANMAN [address] [place] [address] Nurse Practitioner Internal Medicine 08/06/20 Yunior Solorzano MD [address] [address] Consulting Physician Gastroenterology 07/18/22 Ross Baez DO [address] [address] Surgeon Cardiothoracic Surgery 07/18/22 Edith Aleman, LAP GRINDER None VAD Coordinator 10/14/24 documented as of this encounter
--- OUTSIDE RECORDS SUMMARY | 2025-02-19 15:57 | XMS_ITS | Encounter Summary ---
Author Organization [employer] ([place], [place], [place], [place], [place]) Address [address] [place] [address] Care Team Providers Care Heating Fixture Tender Name Role Phone Unavailable Primary Care Provider Unavailabl e Encounter Details Date Type Department Care Team (Late st Contact Info) Description 05/07/2019 Transcribed Document [facility] [place] [facility] [place] [address] ProviderMg MD [facility] [place] [address] Social History Tobacco Use Types Packs/Day Years Used Date Smoking Tobacco: Never Assessed Sex and Gender Information Value Date Recorded Sex Assigned at Not on file Legal Sex Male 1:09 PM CDT Gender Identity Not on file Sexual Orientation Not on file documented as of this encounter Miscellaneous Notes * Cerner Conversion Note - Mg Ritchie MD - 05/07/2019 1:19 PM WINDOWS APPLICATION ADMINISTRATOR Patient: JOSE PEARSON Age: 48 years Sex: [...] 135 mL/Hr, IV Piggyback, Daily Flonase: 1 [place], Nostrils Both, BID Melatonin: 3 mg, Oral, [...] above plan of care. Electronically signed by Morales Mejia Conversion Potable Water Treatment Operator Cerner at 06/19/2022 10:54 PM CDT documented in this encounter Plan of Treatment Not on file documented as of this encounter Visit Diagnoses Not on filedocumented in this encounter
--- OUTSIDE RECORDS SUMMARY | 2025-02-19 15:57 | XMS_ITS | Encounter Summary ---
Author Organization [employer] ([place], [place], [place], [place]) Address [address] [place] [address] Care Team Providers Care Medical Appliance Maker Name Role Phone Unavailable Primary Care Provider Unavailabl e Encounter Details Date Type Department Care Team (Late st Contact Info) Description 05/06/2019 Transcribed Document [facility] [place] [address] ProviderMg MD [facility] [place], [place] [address] Social History Tobacco Use Types Packs/Day Years Used Date Smoking Tobacco: Never Assessed Sex and Gender Information Value Date Recorded Sex Assigned at Not on file Legal Sex Male 1:09 PM CDT Gender Identity Not on file Sexual Orientation Not on file documented as of this encounter Miscellaneous Notes * Cerner Conversion Note - Historical ProviderMD - 05/06/2019 5:00 AM SOLUTIONS OPERATOR Chart Check - Review Order Profile [...]
--- OUTSIDE RECORDS SUMMARY | 2025-02-19 15:57 | XMS_ITS | Encounter Summary ---
Author Organization [employer] ([place], [place], [place], [place], [place]) Address [address] [place] [address] Care Team Providers Care Mobile Sales Consultant Name Role Phone Unavailable Primary Care Provider Unavailabl e Encounter Details Date Type Department Care Team (Late st Contact Info) Description 05/06/2019 Transcribed Document [facility] [place] [address] ProviderMg MD [facility] [place] [address] Social History Tobacco Use Types Packs/Day Years Used Date Smoking Tobacco: Never Assessed Sex and Gender Information Value Date Recorded Sex Assigned at Not on file Legal Sex Male 1:09 PM CDT Gender Identity Not on file Sexual Orientation Not on file documented as of this encounter Miscellaneous Notes * Cerner Conversion Note - Historical ProviderMD - 05/06/2019 10:07 AM FIELD STAFF MANAGER Event Note Entered On: 05/06/2019 10:08 EST Performed On: 05/06/2019 10:07 EST by Erika Robles RN Event Note Event Date/Time : 05/06/2019 10:07 EST Description of Event : Per Mayito TORIBIO pt can be given Erika Alonso RN - 05/06/2019 10:07 EST Electronically signed by Jackie [facility] Conversion Globe Mounter Cerner at 06/19/2022 11:01 PM CDT documented in this encounter Plan of Treatment Not on file documented as of this encounter Visit Diagnoses Not on filedocumented in this encounter
--- OUTSIDE RECORDS SUMMARY | 2025-02-19 15:57 | XMS_ITS | Encounter Summary ---
Author Organization [employer] ([place], [place], [place], [place], [place]) Address [address] [place] [address] Care Team Providers Care Benefits Clerk Name Role Phone Unavailable Primary Care Provider Unavailabl e Encounter Details Date Type Department Care Team (Late st Contact Info) Description 05/06/[address] [facility] [place] [facility] [place] [address] ProviderMg MD [facility] [address] Social History Tobacco Use Types Packs/Day Years Used Date Smoking Tobacco: Never Assessed Sex and Gender Information Value Date Recorded Sex Assigned at Not on file Legal Sex Male 1:09 PM CDT Gender Identity Not on file Sexual Orientation Not on file documented as of this encounter Miscellaneous Notes * Cerner Conversion Note - Mg ProviderMD - 05/06/2019 10:25 AM SIGHT MOUNTER Spiritual Care Short Form Entered On: 05/06/2019 11:48 EST Performed On: 05/06/2019 10:25 EST by ANIKA MANRIQUEZ Chaplain-Non Cert General Information, Spiritual Care Spiritual Care Referred by : Hull Drafter initiated Reason for Visit : Follow Up [...]
--- OUTSIDE RECORDS SUMMARY | 2025-02-19 15:57 | XMS_ITS | Encounter Summary ---
Author Organization [employer] ([place], [place], [place], [place], [place]) Address [address] [place] [address] Care Team Providers Care Iuss Acoustic Analyst Name Role Phone Unavailable Primary Care Provider Unavailabl e Encounter Details Date Type Department Care Team (Late st Contact Info) Description 05/06/2019 Transcribed Document [facility] Family Medicine [facility] [place] [address] ProviderMg MD [facility] [place] [address] Social History Tobacco Use Types Packs/Day Years Used Date Smoking Tobacco: Never Assessed Sex and Gender Information Value Date Recorded Sex Assigned at Not on file Legal Sex Male 1:09 PM CDT Gender Identity Not on file Sexual Orientation Not on file documented as of this encounter Miscellaneous Notes * Cerner Conversion Note - Mg ProviderMD - 05/06/2019 1:43 PM KAIAKO KURA TU[facility]UA [facility] Authorization Entered On: 05/06/2019 13:44 EST Performed On: 05/06/2019 13:43 EST by CHARLA BARRAZA RN-Utilization Review Primary Insurance Authorization Authorization and Policy Numbers : Insurance 1 Health Plan: [facility] Policy Number: Authorization Number: Insurance Primary Name : [facility] Administators [id number] Authorization Status-Primary : Admit approved Authorization Number-Primary : [id number] Number of Days Authorized-Primary : 4 Day(s) Authorized Service Begin Date-Primary : 05/03/2019 EST Authorized Service End Date-Primary : 05/07/2019 EST Authorization Comments-Primary : Ruben approved per Katrin for 5 days total --- nrd 05/07 Historical Authorization Comments-Primary : Comment 1: Uploaded continuing stay clinicals (05/06/19) to [facility] via [employer]. (ARMANDO SHANNON RN-Utilization Review 05/06/2019 12:11) Comment 2: Per [employer], admit approved with auth #[id number] given from 05/03-05/05/19. Next review date 05/06/19. (ARMANDO SHANNON, RN-Utilization Review 05/06/2019 08:05) Comment 3: Uploaded clinicals to [facility] administrators via [employer]. Manually faxed [employer] form. (ARMANDO SHANNON, MARYCARMEN-Utilization Review 05/03/2019 13:31) CHARLA BARRAZA RN-Utilization Review - 05/06/2019 13:43 EST Electronically signed by Morales Mejia Conversion Technical Specialist Cytology Cerner at 06/19/2022 10:54 PM CDT documented in this encounter Plan of Treatment Not on file documented as of this encounter Visit Diagnoses Not on filedocumented in this encounter
--- OUTSIDE RECORDS SUMMARY | 2025-02-19 15:57 | XMS_ITS | Encounter Summary ---
Author Organization [employer] ([place], [place], [place], [place], [place]) Address [address] [place] [address] Care Team Providers Care Digester Name Role Phone Unavailable Primary Care Provider Unavailabl e Encounter Details Date Type Department Care Team (Late st Contact Info) Description 05/06/2019 Transcribed Document [facility] [place] Family Medicine Formerly [facility], [facility] [place] [address] ProviderMg MD [facility] [place] [id number] Social History Tobacco Use Types Packs/Day Years Used Date Smoking Tobacco: Never Assessed Sex and Gender Information Value Date Recorded Sex Assigned at Not on file Legal Sex Male 1:09 PM CDT Gender Identity Not on file Sexual Orientation Not on file documented as of this encounter Miscellaneous Notes * Cerner Conversion Note - Mg Ritchie MD - 05/06/2019 11:29 AM TAR HEATER OPERATOR Patient: JOSE PEARSON Age: 48 years [...] 135 mL/Hr, IV Piggyback, Daily Flonase: 1 [place], Nostrils Both, BID Melatonin: 3 mg, Oral, [...] now 12 years past diagnosis. - Per [facility] - CardioMEMS approval with [employer] may take several weeks - will have [...]
--- OUTSIDE RECORDS SUMMARY | 2025-02-19 15:57 | XMS_ITS | Encounter Summary ---
Author Organization [employer] ([place], [place], [place], [place], [place]) Address [address] [place] [address] Care Team Providers Care Electronic Industrial Controls Mechanic Name Role Phone Unavailable Primary Care Provider Unavailabl e Encounter Details Date Type Department Care Team (Late st Contact Info) Description 05/06/2019 Transcribed Document [facility] [place] [facility] [place] [address] ProviderMg MD [facility] [place] [address] Social History Tobacco Use Types Packs/Day Years Used Date Smoking Tobacco: Never Assessed Sex and Gender Information Value Date Recorded Sex Assigned at Not on file Legal Sex Male 1:09 PM CDT Gender Identity Not on file Sexual Orientation Not on file documented as of this encounter Miscellaneous Notes * Cerner Conversion Note - Mg ProviderMD - 05/06/2019 8:05 AM SHERIFF SERGEANT UM Authorization Entered On: 05/06/2019 8:17 EST Performed On: 05/06/2019 8:05 EST by ARMANDO SHANNON RN-Utilization Review Primary Insurance Authorization Authorization and Policy Numbers : Insurance 1 Health Plan: [facility] Policy Number: Authorization Number: Insurance Primary Name : [employer] Administ[employer] Authorization Status-Primary : Admit approved Authorization Number-Primary : [id number] Authorized Service Begin Date-Primary : 05/03/2019 EST Authorization Comments-Primary : Per [facility], admit approved with auth #[id number] given from 05/03-05/05/19. Next review date 05/06/19. Historical Authorization Comments-Primary : Comment 1: Uploaded clinicals to [employer] administrators via [employer]. Manually faxed [employer] form. (ARMANDO SHANNON RN-Utilization Review 05/03/2019 13:31) ARMANDO SHANNON RN-Utilization Review - 05/06/2019 8:05 EST Electronically signed by Jackie [facility] Conversion Cast Associate Cerner at 06/19/2022 11:08 PM CDT documented in this encounter Plan of Treatment Not on file documented as of this encounter Visit Diagnoses Not on filedocumented in this encounter
--- OUTSIDE RECORDS SUMMARY | 2025-02-19 15:57 | XMS_ITS | Encounter Summary ---
Author Organization [employer] ([place], [place], [place], [place], [place]) Address [address] [place] [address] Care Team Providers Care Pin Machine Operator Name Role Phone Unavailable Primary Care Provider Unavailabl e Encounter Details Date Type Department Care Team (Late st Contact Info) Description 05/06/2019 Transcribed Document [facility] [place] [facility] [place] [address] ProviderMg MD [place] [address] Social History Tobacco Use Types Packs/Day Years Used Date Smoking Tobacco: Never Assessed Sex and Gender Information Value Date Recorded Sex Assigned at Not on file Legal Sex Male 1:09 PM CDT Gender Identity Not on file Sexual Orientation Not on file documented as of this encounter Miscellaneous Notes * Cerner Conversion Note - Historical ProviderMD - 05/06/2019 5:09 PM LASER BEAM COLOR SCANNER OPERATOR Event Note Entered On: 05/06/2019 19:44 EST Performed On: 05/06/2019 17:09 EST by Gracia Carl, Skein BleacherHealth Unit Coord Event Note Event Date/Time : 05/06/2019 17:09 EST Event Location : Assigned room Event Details : Other: Transfer Gracia Carl Skein Bleacher-Health Unit Coord - 05/06/2019 19:43 EST Description of Event : Pt transferred from ICU via wheelchair accompanied by RN. Pt is A&Ox4 w/ no signs of distress or discomfort. Oriented pt to room & call light. at bedside. Agree w/ previous assessment unless otherwise noted. Will continue to monitor for changes. Gracia Carl Skein Bleacher-Health Unit Coord - 05/06/2019 19:48 EST Electronically signed by Morales Mejia Conversion Agricultural Economics Professor Cerner at 06/19/2022 10:51 PM CDT documented in this encounter Plan of Treatment Not on file documented as of this encounter Visit Diagnoses Not on filedocumented in this encounter
--- OUTSIDE RECORDS SUMMARY | 2025-02-19 15:57 | XMS_ITS | Encounter Summary ---
Author Organization [employer] ([place], [place], [place], [place], [place]) Address [address] [place] [address] Care Team Providers Care Receiving Team Member Name Role Phone Unavailable Primary Care Provider Unavailabl e Encounter Details Date Type Department Care Team (Late st Contact Info) Description 05/06/2019 Transcribed Document [facility] [place] [facility] [address] ProviderMg MD [facility] [place], [place] [address] Social History Tobacco Use Types Packs/Day Years Used Date Smoking Tobacco: Never Assessed Sex and Gender Information Value Date Recorded Sex Assigned at Not on file Legal Sex Male 1:09 PM CDT Gender Identity Not on file Sexual Orientation Not on file documented as of this encounter Miscellaneous Notes * Cerner Conversion Note - Historical ProviderMD - 05/06/2019 2:00 AM LABORER SALVAGE Drum Drier Details Entered On: 05/06/2019 6:56 EST Performed On: 05/06/2019 2:00 EST by Tracy Sevreino RN Order Details Transport Mode Order Detail [...] EST Electronically signed by Morales Mejia Conversion Central Office Repairer Supervisor Cerner at 06/19/2022 11:00 PM CDT documented in this encounter Plan of Treatment Not on file documented as of this encounter Visit Diagnoses Not on filedocumented in this encounter
--- OUTSIDE RECORDS SUMMARY | 2025-02-19 15:57 | XMS_ITS | Encounter Summary ---
Author Organization [employer] ([place], [place], [place], [place], [place]) Address [address] [place] [address] Care Team Providers Care Manager Installation Name Role Phone Unavailable Primary Care Provider Unavailabl e Encounter Details Date Type Department Care Team (Late st Contact Info) Description 05/06/2019 Transcribed Document [facility] [place] [address] [place] [address] ProviderMg MD [facility] [place] [address] Social History Tobacco Use Types Packs/Day Years Used Date Smoking Tobacco: Never Assessed Sex and Gender Information Value Date Recorded Sex Assigned at Not on file Legal Sex Male 1:09 PM CDT Gender Identity Not on file Sexual Orientation Not on file documented as of this encounter Miscellaneous Notes * Cerner Conversion Note - Historical ProviderMD - 05/06/2019 5:00 PM FUNDING ANALYST Chart Check - Review Order Profile Entered On: 05/06/2019 19:45 EST Performed On: 05/06/2019 17:00 EST by Gracia Carl, Biztalk DeveloperHealth Unit Coord Chart Check Powerplans Initiated/Discontinued as Appropriate : Yes All Active Orders Reviewed : Yes Gracia Carl Biztalk Developer-Health Unit Coord - 05/06/2019 19:45 EST Electronically signed by Jackie [facility] Conversion Business Operations Specialist Cerner at 06/19/2022 10:58 PM CDT documented in this encounter Plan of Treatment Not on file documented as of this encounter Visit Diagnoses Not on filedocumented in this encounter
--- OUTSIDE RECORDS SUMMARY | 2025-02-19 15:58 | XMS_ITS | Encounter Summary ---
Author Organization [facility] Address [address] [place] [address] Care Team Providers Care Round Boner Name Role Phone Herberth Perez MD Primary Care Provider [phone] Gracia Petersen RELIABILITY TECHNICIAN Unavailable [phone] Yunior Solorzano MD Unavailable [phone] Ross Baez DO Unavailable [phone] Edith Aleman RN Unavailable Unavailable Encounter Details Date Type Department Care Team (Late st Contact Info) Description 12/18/2024 Orders Only [facility] [place] [address] [place] [phone] Edith Aleman, SENIOR ENGINEERING MANAGER None 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 0 09/19/2021 CAGE Questionnaire Score 0 Utilities Answer Date Recorded In the past 12 months has th e [employer] gas, oil, or water company threatened to [...] Description 04/22/2025 9:00 AM EST Ancillary Procedure [facility] [place] [address] [place] [address] documented as of this encounter Goals Goal Patient Goal Type Associated Problems Recent Progress Patient-Stated? Author LVAD Short Term Goal General On track( 11:53 AM EDT) Yes Katrin Oviedo RN Note: - 07/04/23: Patient states he wants to attend a wedding in November in [place] LVAD Medical Office Specialist Goal General On track( 11:53 AM EDT) [...] documented as of this encounter Care Teams Round Boner Relationship Specialty Start Date End Date Herberth Perez MD [address] [place] [address] [place] [address] PCP - General 07/17/20 Gracia Petersen APRN [address] [place] [address] Nurse Practitioner Internal Medicine 08/06/20 Yunior Solorzano MD [address] [place] [address] Consulting Physician Gastroenterology 07/18/22 Ross Baez, DO [address] [address] Surgeon Cardiothoracic Surgery 07/18/22 Edith Aleman, SENIOR ENGINEERING MANAGER None VAD Coordinator 10/14/24 documented as of this encounter
--- OUTSIDE RECORDS SUMMARY | 2025-02-19 15:58 | XMS_ITS | Clinical Summary ---
Author Organization [facility] Address [address] [place] [id number] Care Team Providers Care Inspector And Sorter Name Role Phone Herberth Perez MD Primary Care Provider [phone] Allergies Active Allergy Reactions Criticality Noted Date [...] (11/10/2024 4:57 PM EDT): Patient treated for [place] acquired pneumonia of the right lung approximately 3 months ago. This diagnosis after 4 to 5 days of right sided chest discomfort with breathing, a bit of heaviness sensation and increasing cough. Patient came to be evaluated by his regular PCP, Dr. Herberth Perez despite being urged to seek ER evaluation. His orthotic assistant obtained x-ray imaging which showed right lung [...] further evaluation emergency department. Prescriptions sent to [facility] here in [place] -Augmentin 875 mg / 125 mg twice [...] He did not want to go to [facility] ER, such as orthotic assistant to obtain x-ray imaging through [facility] on 07/31/2024 which showed right lung findings [...] his significant risk factors, similar to his orthotic assistant I would strongly recommend [facility] evaluation [...] EDT): Colonoscopy 01/16/[address] Curiel at [facility] with internal hemorrhoids, 5 mm sessile [...] recommend him having further evaluation by the [place] road test, additional certified driving specialist evaluation [...] nonischemic dilated cardiomyopathy/congestive heart failure, diagnosis per orthotic assistant, Dr. Leydi Hobbs. Assessment & Plan (09/06/2023 [...] 3.21, this coincided with a hospitalization at [facility] where he was evaluated further, [...] 3.21, this coincided with a hospitalization at [facility] where he was evaluated further, [...] 3.21, this coincided with a hospitalization at [facility] where he was evaluated further, [...] 3.21, this coincided with a hospitalization at [facility] where he was evaluated further, [...] Heart disease 11/01/2021 11/01/2021 Thyrotoxicosis 11/01/2021 08/17/2022 Immunizations Immunization Administration Dates Next Due COVID-19 ([place]) Purple Cap Monovalent 02/09/20 21,06/02/2020,05/08/2020 Flu Vaccine [...] 11/01/2021, 08/04 HEPATITIS C SCREENING Completed 12/18/2023, 07/16/2 022 Procedures Procedure Name Priority Date/Time Associated Diagnosis Comments LIPID PANEL Routine 09/06/2023 10:27 AM EDT Encounter for general adult medical examination with abnormal findings COLONOSCOPY Routine 01/16/2019 from Last 3 Months [...] 09/06/2023 Comment:Blood Release to pat i Narrative [facility] (AMBULATORY) - 09/07/2023 10:07 AM EDT Performed at: 01 - [facility] [address] [place] [id number] Ditching Machine Operator: Martin Escudero PhD, Phone: [phone] us Herberth Perez MD LAB BLOOD ORDERABLES Final Resul t [facility] [address] [place] [address], [facility] [address] [place] [address], * COLONOSCOPY (01/16/2019) Colonoscopy SEE REPORT Mg Ritchie MD HEALTH MAINTENANCE Final Result from Last 3 Months or Most Recently Relevant to Health Maintenance Insurance MEDICAID [place] [employer] PPO Member Subscriber Plan / Payer (Ef fective 2022-Present) Name:Jose Pearson Member ID:[id number] Relation to Subscriber:Spouse Name:Beth Pearson Subscriber ID:[id number] Date of :1969 (Home) Address: [address] [place] [address] Payer ID:[id number] (NAIC) Type:Not on file Address: [address] [place] [address] Care Teams Inspector And Sorter Relationship Specialty Start Date End Date Herberth Perez MD [address] [place] [address] [place] [address] PCP - General Internal Medicine 04/22/17 Dr. Mclaughlin Consulting Physician Infectious Diseases 06/05/23
--- OUTSIDE RECORDS SUMMARY | 2025-02-19 15:58 | XMS_ITS | Encounter Summary ---
Author Organization [facility] Address [address] [place] [address] Care Team Providers Care Mill Platform Supervisor Name Role Phone Herberth Perez MD Primary Care Provider [phone] Gracia Petersen MANAGER PHILOSOPHY Unavailable [phone] Yunior Solorzano MD Unavailable [phone] Ross Baez DO Unavailable [phone] Edith Aleman RN Unavailable Unavailable Encounter Details Date Type Department Care Team (Late st Contact Info) Description 12/25/2024 [facility] [place] [address] [place] [address] Edith Aleman, DERMATOLOGY NURSE PRACTITIONER None Social History Tobacco Use Types Packs/Day [...] any time in the past 12 m [facility], were you homeless or [...] first t janine in the morning (EYE-SENIOR SOLUTIONS WORKFLOW CONSULTANT) to steady your nerves or to get [...] Description 04/22/2025 9:00 AM EST Ancillary Procedure [facility] [place] [address] [place] [address] documented as of this encounter Goals Goal Patient Goal Type Associated Problems Recent Progress Patient-Stated? Author LVAD Short Term Goal General On track( 11:53 AM EDT) Yes Katrin Oviedo, MARYCARMEN Note: - 07/04/23: Patient states he wants to attend a wedding in November in [place] LVAD Doughnut Glazier Goal General On track( 11:53 AM EDT) [...] documented as of this encounter Care Teams Mill Platform Supervisor Relationship Specialty Start Date End Date Herberth Perez MD [address] [place] [address] [place] [address] PCP - General 07/17/20 Gracia Petersen, LORI [address] [place] [phone] Nurse Practitioner Internal Medicine 08/06/20 Yunior Solorzano MD [address] [place] [address] Consulting Physician Gastroenterology 07/18/22 Ross Baez, [address] [place] [phone] Surgeon Cardiothoracic Surgery 07/18/22 Edith Aleman, DERMATOLOGY NURSE PRACTITIONER None VAD Coordinator 10/14/24 documented as of this encounter
--- OUTSIDE RECORDS SUMMARY | 2025-02-19 15:58 | XMS_ITS | Encounter Summary ---
Author Organization [facility] Address [address] [place] [address] Care Team Providers Care Can Line Examiner Name Role Phone Herberth Perez MD Primary Care Provider [phone] Gracia Petersen ENTRY LEVEL ACCOUNT REPRESENTATIVE Unavailable [phone] Yunior Solorzano MD Unavailable [phone] Ross Baez DO Unavailable [phone] Edith Aleman RN Unavailable Unavailable Encounter Details Date Type Department Care Team (Late st Contact Info) Description 12/24/2024 Orders Only [facility] [place] [address] [place] [phone] Edith Aleman, GLASS BLOWING INSTRUCTOR None Social History Tobacco Use Types Packs/Day [...] any time in the past 12 m [facility], were you homeless or living [...] drink first t janine in the morning (EYE-INGOT CAR OPERATOR) to steady your nerves or to [...] Description 04/22/2025 9:00 AM EST Ancillary Procedure [facility] [place] [address] [place] [address] documented as of this encounter Goals Goal Patient Goal Type Associated Problems Recent Progress Patient-Stated? Author LVAD Short Term Goal General On track( 11:53 AM EDT) Yes Katrin Oviedo, MARYCARMEN Note: - 07/04/23: Patient states he wants to attend a wedding in November in [place] LVAD Skilled Nursing Goal General On track( 11:53 AM EDT) [...] documented as of this encounter Care Teams Can Line Examiner Relationship Specialty Start Date End Date Herberth Perez MD [address] [place] [address] [place] [address] PCP - General 07/17/20 Gracia Petersen, LORI [address] [place] [address] Nurse Practitioner Internal Medicine 08/06/20 Yunior Solorzano MD [address] [place] [address] Consulting Physician Gastroenterology 07/18/22 Ross Baez, [address] [place] [phone] Surgeon Cardiothoracic Surgery 07/18/22 Edith Aleman, GLASS BLOWING INSTRUCTOR None VAD Coordinator 10/14/24 documented as of this encounter
--- OUTSIDE RECORDS SUMMARY | 2025-02-19 15:58 | XMS_ITS | Encounter Summary ---
Author Organization [facility] Address [address] [place] [address] Care Team Providers Care Autism Motor Specialist Name Role Phone Herberth Perez MD Primary Care Provider [phone] Gracia Petersen BRAND MARKETING INTERN Unavailable [phone] Yunior Solorzano MD Unavailable [phone] Ross Baez DO Unavailable [phone] Edith Aleman RN Unavailable Unavailable Encounter [...] drink first t janine in the morning (EYE-JEWEL HOLE ROUGH OPENER) to steady your nerves or to get [...] Description 04/22/2025 9:00 AM EST Ancillary Procedure [facility] [place] [facility] [address] [place] [address] documented as of this encounter Goals Goal Patient Goal Type Associated Problems Recent Progress Patient-Stated? Author LVAD Short Term Goal General On track( 11:53 AM EDT) Yes Katrin Oviedo, RN Note: - 07/04/23: Patient states he wants to attend a wedding in November in [place] LVAD Apartment Locator Goal General On track( 024 11:53 AM [...] documented as of this encounter Care Teams Autism Motor Specialist Relationship Specialty Start Date End Date Herberth Perez MD [address] [place] [address] [place] [address] PCP - General 07/17/20 Gracia Petersen APRN [address] [place] [phone] Nurse Practitioner Internal Medicine 08/06/20 Yunior Solorzano MD [address] [place] [address] Consulting Physician Gastroenterology 07/18/22 Ross Baez DO [address] [address] Surgeon Cardiothoracic Surgery 07/18/22 Edith Aleman, SHELL MAKER LOCKSTITCH None VAD Coordinator 10/14/24 documented as of this encounter
--- OUTSIDE RECORDS SUMMARY | 2025-02-19 15:58 | XMS_ITS | Encounter Summary ---
Author Organization [facility] Address [address] [facility] [place] [address] Care Team Providers Care Mushroom Cultivator Name Role Phone Herberth Perez MD Primary Care Provider [phone] Katrin Oviedo RN Unavailable [phone] Zaida Lafleur FOSTER CARE WORKER Unavailable Gracia Petersen FOSTER CARE WORKER Unavailable [phone] Yunior Solorzano MD Unavailable [phone] Ross Baez DO Unavailable [phone] Edith Aleman RN Unavailable Unavailable Reason for Visit * Reason Comments Med Refill Encounter Details Date Type Department Care Team (Late st Contact Info) Description 07/13/2022 Refill [facility] [place] [address] [facility]. [address] [place] [phone] Melisa Vazquez MD [address] [place] [address] Social History Tobacco Use Types [...] drink first t janine in the morning (EYE-SAFETY RISK LEAD) to steady your nerves or to [...] Description 04/22/2025 9:00 AM EST Ancillary Procedure [facility] [place] [address] [place] [address] documented as of this encounter Visit Diagnoses [...] documented as of this encounter Care Teams Mushroom Cultivator Relationship Specialty Start Date End Date Herberth Perez MD [address] [place] [address] PCP - General 5/14/21 Katrin Oviedo, RN [facility] VAD PROGRAM [address] [place] [address] VAD Coordinator Cardiology 08/06/20 10/21/24 Zaida Lafleur APRN [address] [place] [address] Nurse Practitioner Advanced Heart Failure and Transplant Cardiology 08/06/20 06/11/23 Gracia Petersen, FOSTER CARE WORKER [address] [place] [address] Nurse Practitioner Internal Medicine 08/06/20 Yunior Solorzano MD [address] [place] [address] Consulting Physician Gastroenterology 07/18/22 Ross Baez DO [address] [address] Surgeon Cardiothoracic Surgery 07/18/22 Edith Aleman, REAL ESTATE SALES AGENT None VAD Coordinator 10/14/24 documented as of this encounter
[2025-02-19] MEDS: SODIUM CHLORIDE 0.9% 10ML FLUSH SYRINGE 10 ML IV (15:59)
--- OUTSIDE RECORDS SUMMARY | 2025-02-19 15:59 | XMS_ITS | Encounter Summary ---
Author Organization [employer] ([place], [place], [place], [place]) Address [address] [place] [address] Care Team Providers Care Ambulatory Care Nurse Name Role Phone Unavailable Primary Care Provider Unavailrodrick e Encounter Details Date Type Department Care Team (Late st Contact Info) Description 03/29/2018 Transcribed Document [facility] [place] [facility] [place] [address] ProviderMg MD [facility] [place] [address] Social History Tobacco Use Types Packs/Day Years Used Date Smoking Tobacco: Never Assessed Sex and Gender Information Value Date Recorded Sex Assigned at Not on file Legal Sex Male 1:09 PM CDT Gender Identity Not on file Sexual Orientation Not on file documented as of this encounter Miscellaneous Notes * Cerner Conversion Note - Mg ProviderMD - 03/29/2018 1:18 PM FISHERY DIVISION CHIEF Nursing Discharge Summary Entered On: 03/29/2018 13:19 [...]
--- OUTSIDE RECORDS SUMMARY | 2025-02-19 15:59 | XMS_ITS | Encounter Summary ---
Author Organization [facility] Address [address] [place] [address] Care Team Providers Care Advertising Material Distributor Name Role Phone Herberth Perez MD Primary Care Provider [phone] Gracia Petersen RN NURSERY Unavailable [phone] Yunior Solorzano MD Unavailable [phone] Ross Baez DO Unavailable [phone] Edith Aleman RN Unavailable Unavailable Encounter [...] place to sleep or slept in a alf (including now)? No 12/19/2023 PHQ-9 Answer Date [...] time in the past 12 m [facility], were you homeless or living in a alf (including now)? No 04/08/2024 CAGE ASSESSMENT Answer [...] drink first t janine in the morning (EYE-WAREHOUSE LOADER) to steady your nerves or to get [...] Description 04/22/2025 9:00 AM EST Ancillary Procedure [facility] [address] [place] [address] documented as of this encounter Goals Goal Patient Goal Type Associated Problems Recent Progress Patient-Stated? Author LVAD Short Term Goal General On track( 11:53 AM EDT) Yes Katrin Oviedo, RN Note: - 07/04/23: Patient states he wants to attend a wedding in November in [place] LVAD Pushcart Peddler Goal General On track( 024 11:53 AM [...] documented as of this encounter Care Teams Advertising Material Distributor Relationship Specialty Start Date End Date Herberth Perez MD [address] [place] [address] [place] [address] PCP - General 07/17/20 Gracia Petersen APRN [address] [place] [phone] Nurse Practitioner Internal Medicine 08/06/20 Yunior Solorzano MD [address] [place] [address] Consulting Physician Gastroenterology 07/18/22 Ross Baez DO [address] [address] Surgeon Cardiothoracic Surgery 07/18/22 Edith Aleman, STOCK CHECKERER None VAD Coordinator 10/14/24 documented as of this encounter
--- OUTSIDE RECORDS SUMMARY | 2025-02-19 15:59 | XMS_ITS | Encounter Summary ---
Author Organization [employer] ([place], [place], [place], [place], [place]) Address [address] [place] [address] Care Team Providers Care Broomcorn Scraper Name Role Phone Unavailable Primary Care Provider Unavailabl e Encounter Details Date Type Department Care Team (Late st Contact Info) Description 03/29/2018 Transcribed Document [facility] [place] [facility] [place] [address] ProviderMg MD [facility] [place] [address] Social History Tobacco Use Types Packs/Day Years Used Date Smoking Tobacco: Never Assessed Sex and Gender Information Value Date Recorded Sex Assigned at Not on file Legal Sex Male 1:09 PM CDT Gender Identity Not on file Sexual Orientation Not on file documented as of this encounter Miscellaneous Notes * Cerner Conversion Note - Historical ProviderMD - 03/29/2018 5:00 AM MECHANICAL DEVELOPMENT ENGINEER Chart Check - Review Order Profile Entered On: 03/29/2018 5:04 EST Performed On: 03/29/2018 5:00 EST by Julia Majano Rn-Resource Chart Check Chart Reviewed Date and Time : 03/29/2018 5:04 EST Powerplans Initiated/Discontinued as Appropriate : Yes All Active Orders Reviewed : Yes Julia Majano Rn-Resource - 03/29/2018 5:04 EST Electronically signed by Morales Me[facility] [employer] Display Builder Cerner at 06/19/2022 11:01 PM CDT documented in this encounter Plan of Treatment Not on file documented as of this encounter Visit Diagnoses Not on filedocumented in this encounter
--- OUTSIDE RECORDS SUMMARY | 2025-02-19 15:59 | XMS_ITS | Encounter Summary ---
Author Organization [facility] Address [address] [place] [address] Care Team Providers Care Sales Representative Graphic Art Name Role Phone Herberth Perez MD Primary Care Provider [phone] Gracia Petersen PROGRAM PROJECT ANALYST Unavailable [phone] Yunior Solorzano MD Unavailable [phone] Ross Baez DO Unavailable [phone] Edith Aleman RN Unavailable Unavailable Reason for Visit * Reason Onset Date Comments HCN - Patient Message 12/17/2024 Encounter Details Date Type Department Care Team (Late st Contact Info) Description 12/17/2024 Telephone [facility] [address] [place] [address] Real Mclaughlin MD [address] [place] [address] HCN - Patient Message Social [...] drink first t janine in the morning (EYE-LEATHER STRIPPING MACHINE OPERATOR) to steady your nerves or [...] PM EDT Clinical Concern/Question Reason for Call: [employer] calling in reference to paperwork that was faxed to Dr. Mclaughlin aboutplan of treatment, they need paper work signed an faxed back. #[phone]. Please complete and fax back, if there are any issues please call [employer] at the # below. Best contact number: Other: [place]- [phone] ext [phone] Optimal time of day to [...] will receive notification of the communication/outcome via [employer]. documented in this encounter Plan of Treatment Upcoming Encounters Date Type Department Care Team (Late st Contact Info) Description 04/22/2025 9:00 AM EST Ancillary Procedure [facility] [address] [place] [address] documented as of this encounter Goals Goal Patient Goal Type Associated Problems Recent Progress Patient-Stated? Author LVAD Short Term Goal General On track( 11:53 AM EDT) Yes Katrin Oviedo, RN Note: - 07/04/23: Patient states he wants to attend a wedding in November in [place] LVAD Low Heel Builder Goal General On track( 11:53 AM EDT) [...] as of this encounter Care Teams Sales Representative Graphic Art Relationship Specialty Start Date End Date Herberth Perez MD [address] [place] [address] [place] [address] PCP - General 07/17/20 Gracia Petersen APRN [address] [place] [id number] Nurse Practitioner Internal Medicine 08/06/20 Yunior Solorzano MD [address] [place] [address] Consulting Physician Gastroenterology 07/18/22 Ross Baez, DO [address] [place] [address] Surgeon Cardiothoracic Surgery 07/18/22 Edith Aleman, SHUTTLE INSPECTOR None VAD Coordinator 10/14/24 documented as of this encounter
--- OUTSIDE RECORDS SUMMARY | 2025-02-19 15:59 | XMS_ITS | Encounter Summary ---
Author Organization [employer] ([place], [place], [place], [place], [place]) Address [address] [place] [address] Care Team Providers Care Massage Coordinator Name Role Phone Unavailable Primary Care Provider Unavailabl e Encounter Details Date Type Department Care Team (Late st Contact Info) Description 03/29/2018 Transcribed Document [facility] [place] [facility] [place] [address] ProviderMg MD [facility] [place] [address] Social History Tobacco Use Types Packs/Day Years Used Date Smoking Tobacco: Never Assessed Sex and Gender Information Value Date Recorded Sex Assigned at Not on file Legal Sex Male 1:09 PM CDT Gender Identity Not on file Sexual Orientation Not on file documented as of this encounter Miscellaneous Notes * Cerner Conversion Note - Mg ProviderMD - 03/29/2018 1:39 PM LARD MAKER [facility] [address], [place] [address] Patient Copy Patient Information: Name: JOSE PEARSON Current Date: 03/29/2018 13:39:19 : 1970 Patient Address: [address] [place] [id number] Patient Attending Physician: Primary Care Provider: HUMA YARBROUGH (REF)MD-INT Primary Care Provider Discharge Diagnosis: Atrial fibrillation; NICM (nonischemic cardiomyopathy) Weight on Admission: 236 lb, 8 oz Weight at Discharge: 237 lb, 4 oz Comment: Follow-up Instructions: With: Address: When: [place] [facility] [address] [place] [address] Business (1) Within 2 weeks [...] Final Medication List: [facility] [address], [address] [place] [id number], [phone] sotalol (sotalol 120 mg oral tablet) 1 [...] nasal (fluticasone 50 mcg/inh nasal spray) 1 Conrath(s) Nostrils Both Every Day. furosemide (Lasix 40 [...] Other treatments may include cardiac resynchronization therapy (MANAGER GENERATION) or a left ventricular assist device (LVAD). [...] to manage stress. General instructions ??? Take qgun-yah-hbdqtbs and prescription medicines only as told by [...] 05/05/2005 Document Revised: 10/18/2016 Document Reviewed: 08/22/2016 [employer] Interactive Patient Education ? 2017 [employer] Atrial Fibrillation Atrial fibrillation is a [...] ??? Certain heart rhythm disorders, such as Quen-Yowwobgxb-Idkca syndrome. Other causes include: ??? Pneumonia. ??? [...] 02/20/2006 Document Revised: 06/29/2016 Document Reviewed: 06/17/2015 [employer] Interactive Patient Education ? 2017 [employer] Medication Leaflets: sotalol (JS ta lol) [...] may report side effects to FDA at 2-975-MWP-1131. What other drugs will affect sotalol? Many [...] interact with sotalol. This includes prescription and tuyc-nfz-ejyinyh medicines, vitamins, and herbal products. Give a [...] to ensure that the information provided by [employer]. ('Student Designed[employer]') is accurate, up-to-date, and complete, but no guarantee is made to that effect. Drug information contained herein may be time sensitive. [employer] information has been compiled for use by healthcare practitioners and consumers in the [place] and therefore [employer] does not warrant that uses outside of the [place] are appropriate, unless specifically indicated otherwise. [employer] drug information does not endorse drugs, diagnose patients or recommend therapy. [employer] drug information is an informational resource designed [...] effective or appropriate for any given patient. [employer] does not assume any responsibility for any aspect of healthcare administered with the aid of information [employer] provides. The information contained herein is not intended to cover all possible uses, directions, precautions, warnings, drug interactions, allergic reactions, or adverse effects. If you have questions about the drugs you are taking, check with your doctor, nurse or pharmacist. Copyright 6180-1967 [employer]. Version: .. Revision Date: 02/18/2014. CIGARETTE SMOKING: The facts are clear, cigarette smoking will shorten your life. Smoking can cause many illnesses along the way. As a healthcare provider, we recommend that you stop smoking. Assistance with quitting is available by contacting 6-831-YVMD-NOW. This is a free resource providing counseling, [...] Be sure to sign up for the [employer] patient portal, which gives you 26/09 access to your medical information ??? including these discharge instructions ??? using your computer, smartphone, or tablet. Just go to QA on Request to get started. Questions? Call . [facility] would like to thank you for allowing us to assist you with your healthcare needs. ANASTASIA Rich DENNIS PAUL, (or inbound customer service representative) have received the above patient education materials/instructions and have verbalized understanding: Patient Signature _ Date/Time Patient Vault Maker Signature (if needed) Date/Time Clinician/Hospital Vault Maker Signature (if needed) Date/Time Electronically signed by Jackie, [facility] Conversion Wire Weaver Cloth Cerner at 06/19/2022 11:11 PM CDT documented in this encounter Plan of Treatment Not on file documented as of this encounter Visit Diagnoses Not on filedocumented in this encounter
--- OUTSIDE RECORDS SUMMARY | 2025-02-19 15:59 | XMS_ITS | Encounter Summary ---
Author Organization [employer] ([place], [place], [place], [place], [place]) Address [address] [place] [address] Care Team Providers Care Sales/Marketing Name Role Phone Unavailable Primary Care Provider Unavailabl e Encounter Details Date Type Department Care Team (Late st Contact Info) Description 03/29/2018 Transcribed Document [facility] [place] [facility] [place] [address] ProviderMg MD [place] [address] Social History Tobacco Use Types Packs/Day Years Used Date Smoking Tobacco: Never Assessed Sex and Gender Information Value Date Recorded Sex Assigned at Not on file Legal Sex Male 1:09 PM CDT Gender Identity Not on file Sexual Orientation Not on file documented as of this encounter Miscellaneous Notes * Cerner Conversion Note - Historical ProviderMD - 03/29/2018 10:[address] [facility] OT Charges Entered On: 03/29/2018 10:35 EST Performed On: 03/29/2018 10:29 EST by DEIRDRE CASTILLO OTR/Kaushal Hager OT Charges Screen For Rib Puller : 1 DEIRDRE CASTILLO OTR/Kaushal - 03/29/2018 10:35 EST documented in this encounter Plan of Treatment Not on file documented as of this encounter Visit Diagnoses Not on filedocumented in this encounter
--- OUTSIDE RECORDS SUMMARY | 2025-02-19 15:59 | XMS_ITS | Encounter Summary ---
Author Organization [employer] ([place], [place], [place], [place], [place]) Address [address] [place] [address] Care Team Providers Care Professor Of Physical Education Name Role Phone Unavailable Primary Care Provider Unavailabl e Encounter Details Date Type Department Care Team (Late st Contact Info) Description 03/29/2018 Transcribed Document [facility] Family Medicine [facility] [place] [address] ProviderMg MD [facility] [place], [place] [address] Social History Tobacco Use Types Packs/Day Years Used Date Smoking Tobacco: Never Assessed Sex and Gender Information Value Date Recorded Sex Assigned at Not on file Legal Sex Male 1:09 PM CDT Gender Identity Not on file Sexual Orientation Not on file documented as of this encounter Miscellaneous Notes * Cerner Conversion Note - Mg ProviderMD - 03/29/2018 10:57 AM LOG COOKER Patient: JOSE PEARSON Age: 47 years Sex: [...] the A. fib. Electronically signed by Jackie [facility] Conversion Barrel Centerer Cerner at 06/19/2022 11:01 PM CDT documented in this encounter Plan of Treatment Not on file documented as of this encounter Visit Diagnoses Not on filedocumented in this encounter
--- OUTSIDE RECORDS SUMMARY | 2025-02-19 15:59 | XMS_ITS | Encounter Summary ---
Author Organization [employer] ([place], [place], [place], [place], [place]) Address [address] [place] [address] Care Team Providers Care Consumer Insight Manager Name Role Phone Unavailable Primary Care Provider Stefan pond Encounter Details Date Type Department Care Team (Late st Contact Info) Description 03/29/2018 Transcribed Document [facility] Family Medicine [facility] [place] [address] ProviderMg MD [facility] [place] [address] Social History Tobacco Use Types Packs/Day Years Used Date Smoking Tobacco: Never Assessed Sex and Gender Information Value Date Recorded Sex Assigned at Not on file Legal Sex Male 1:09 PM CDT Gender Identity Not on file Sexual Orientation Not on file documented as of this encounter Miscellaneous Notes * Cerner Conversion Note - Mg ProviderMD - 03/29/2018 1:19 PM BEHAVIOR SPECIALIST Discharge Instructions Entered On: 03/29/2018 13:21 EST [...]
--- OUTSIDE RECORDS SUMMARY | 2025-02-19 15:59 | XMS_ITS | Encounter Summary ---
Author Organization [employer] ([place], [place], [place], [place], [place]) Address [address] [place] [address] Care Team Providers Care Director Agricultural Services Name Role Phone Unavailable Primary Care Provider Unavailabl e Encounter Details Date Type Department Care Team (Late st Contact Info) Description 03/29/2018 Transcribed Document [facility] [place] [address] ProviderMg [place] [address] Social History Tobacco Use Types Packs/Day Years Used Date Smoking Tobacco: Never Assessed Sex and Gender Information Value Date Recorded Sex Assigned at Not on file Legal Sex Male 1:09 PM CDT Gender Identity Not on file Sexual Orientation Not on file documented as of this encounter Miscellaneous Notes * Cerner Conversion Note - Historical ProviderMD - 03/29/2018 10:[address] [facility] PT Charges Entered On: 03/29/2018 [...]
--- OUTSIDE RECORDS SUMMARY | 2025-02-19 15:59 | XMS_ITS | Encounter Summary ---
Author Organization [facility] Address [address] [place] [address] Care Team Providers Care Ear Pull Machine Operator Name Role Phone Herberth Perez MD Primary Care Provider [phone] Gracia Petersen LONG HAUL TRUCK DRIVER Unavailable [phone] Yunior Solorzano MD Unavailable [phone] Ross Baez DO Unavailable [phone] Edith Aleman RN Unavailable Unavailable Encounter Details Date Type Department Care Team (Latest Contact Info) Description 01/06/2025 Anticoagulation - Warfarin Visit [facility] [place] [address] [place] [address] Gracia Vizcarra, RN [facility] [address] [place] [address] LVAD (left ventricular assist device) present ([facility]) (Primary Dx); Anticoagulant long-term use Social History [...] any time in the past 12 m [facility], were you homeless or living in [...] drink first t janine in the morning (EYE-FREIGHT ADJUSTER) to steady your nerves or to get [...] Description 04/22/2025 9:00 AM EST Ancillary Procedure [facility] [place] [address] [place] [address] documented as of this encounter Goals Goal Patient Goal Type Associated Problems Recent Progress Patient-Stated? Author LVAD Short Term Goal General On track( 024 11:53 AM EDT) Yes Katrin Oviedo RN Note: - 07/04/23: Patient states he wants to attend a wedding in November in [place] LVAD House Sitter Goal General On track( 024 11:53 AM [...] Blood Venous blood specimen / Unknown 01/05/2025 [facility] Provider POINT OF CARE TEST ENTER/SHERIF T ORDERABLES Final Result documented in this encounter Visit Diagnoses Diagnosis LVAD (left ventricular assist device) present ([facility])- Primary Anticoagulant long-term use Encounter for long-term [...] documented as of this encounter Care Teams Ear Pull Machine Operator Relationship Specialty Start Date End Date Herberth Perez MD [address] [place] [address] [place] [address] PCP - General 07/17/20 Gracia Petersen APRN [address] [place] [address] Nurse Practitioner Internal Medicine 08/06/20 Yunior [place]orzano MD [address] [place] [address] Consulting Physician Gastroenterology 07/18/22 Ross Baez DO [address] [address] Surgeon Cardiothoracic Surgery 07/18/22 Edith Aleman, INSOLE LIP TURNER None VAD Coordinator 10/14/24 documented as of this encounter
--- OUTSIDE RECORDS SUMMARY | 2025-02-19 15:59 | XMS_ITS | Encounter Summary ---
Author Organization [facility] Address [address] [place] [address] Care Team Providers Care Snow Remover Name Role Phone Herberth Perez MD Primary Care Provider [phone] Gracia Petersen STUDENT CAREER DEVELOPMENT SPECIALIST Unavailable [phone] Yunior [place]or[place]ano MD Unavailable [phone] Ross Baez DO Unavailable [phone] Edith Aleman RN Unavailable Unavailable Encounter Details Date Type Department Care Team (Latest Contact Info) Description 12/23/2024 Anticoagulation - Warfarin Visit [facility] [place] [facility] [address] [facility] [address] [place] [address] Edith Aleman, ESTATE PLANNER None LVAD (left ventricular assist device) present ([facility]) (Primary Dx); Anticoagulant long-term use Social History [...] drink first t janine in the morning (EYE-WILLOW SPECIALISTS) to steady your nerves or to get rid of a hangover? 0 09/19/2021 CAGE Questionnaire Score 0 022 Utilities Answer Date Recorded In the past 12 months has e [employer], gas, oil, or water [employer] threatened to shut off services in your [...] Description 04/22/2025 9:00 AM EST Ancillary Procedure [facility] [place] [address] [place] [address] documented as of this encounter Goals Goal Patient Goal Type Associated Problems Recent Progress Patient-Stated? Author LVAD Short Term Goal General On track( 024 11:53 AM EDT) Yes Katrin Oviedo RN Note: - 07/04/23: Patient states he wants to attend a wedding in November in [place] LVAD Drill Press Tender Goal General On track( 024 11:53 AM [...] Blood Venous blood specimen / Unknown 12/22/2024 [facility] Provider POINT OF CARE TEST ENTER/SHERIF T ORDERABLES Final Result documented in this encounter Visit Diagnoses Diagnosis LVAD (left ventricular assist device) present ([facility])- Primary Anticoagulant long-term use Encounter for long-term [...] documented as of this encounter Care Teams Snow Remover Relationship Specialty Start Date End Date Herberth Perez MD [address] [place] [address] [place] [address] PCP - General 07/17/20 Gracia Petersen APRN [address] [place] [phone] Nurse Practitioner Internal Medicine 08/06/20 Yunior Solorzano MD [address] [place] [address] Consulting Physician Gastroenterology 07/18/22 Ross Baez DO [address] [address] Surgeon Cardiothoracic Surgery 07/18/22 Edith Aleman, ESTATE PLANNER None VAD Coordinator 10/14/24 documented as of this encounter
--- OUTSIDE RECORDS SUMMARY | 2025-02-19 15:59 | XMS_ITS | Encounter Summary ---
Author Organization [employer] ([place], [place], [place], [place], [place]) Address [address] [place] [address] Care Team Providers Care Sheet Heater Name Role Phone Unavailable Primary Care Provider Unavailabl e Encounter Details Date Type Department Care Team (Late st Contact Info) Description 03/29/2018 Transcribed Document [facility] [place] [facility] [place] [address] ProviderMg MD [facility] [place] [address] Social History Tobacco Use Types Packs/Day Years Used Date Smoking Tobacco: Never Assessed Sex and Gender Information Value Date Recorded Sex Assigned at Not on file Legal Sex Male 1:09 PM CDT Gender Identity Not on file Sexual Orientation Not on file documented as of this encounter Miscellaneous Notes * Cerner Conversion Note - Historical ProviderMD - 03/29/2018 5:00 AM VISUAL MERCHANDISING ASSISTANT Height and Weight, Routine Entered On: 03/29/2018 5:56 EST Performed On: 03/29/2018 5:00 EST by Josesito Black, [facility] Unit Coord Height and Weight, Routine Routine Weight Source : Standing scale Routine Weight Entry Format : Butler Routine Weight, Pounds : 237 lb Routine Weight, Ounces : 4 oz Routine Weight Calculation : 107.84 kg Height Source : Stated Height Entry Format : Butler Height, Feet : 6 ft Height, Inches : 0 Inch Clinical Height : 182.88 cm Body Surface Area (BSA), Routine : 2.29 m2 Body Mass Index (BMI), Routine : 32.24 kg/m2 Josesito Black, [facility] - 03/29/2018 5:55 EST Electronically signed by Jackie [facility] Conversion Web Weaver Cerner at 06/19/2022 11:12 PM CDT documented in this encounter Plan of Treatment Not on file documented as of this encounter Visit Diagnoses Not on filedocumented in this encounter
--- OUTSIDE RECORDS SUMMARY | 2025-02-19 15:59 | XMS_ITS | Encounter Summary ---
Author Organization [facility] Address [address] [id number] Care Team Providers Care Sponge Fisherman Name Role Phone Herberth Perez MD Primary Care Provider [phone] Gracia Petersen COLLAR FOLDER OPERATOR Unavailable [phone] Yunior Solorzano MD Unavailable [phone] Ross Baez DO Unavailable [phone] Edith Aleman RN Unavailable Unavailable Reason for Visit * Reason Onset Date Comments Med Refill 12/20/2024 Encounter Details Date Type Department Care Team (Late st Contact Info) Description 12/20/2024 Refill [facility] [place] [address] [place] [address] Elisabet Raya MD [address] [place] [address] Social History Tobacco Use Types [...] any time in the past 12 m [facility], were you homeless or living in [...] drink first t janine in the morning (EYE-HYDROPULPER OPERATOR) to steady your nerves or to [...] Description 04/22/2025 9:00 AM EST Ancillary Procedure [facility] [place] [address] [place] [address] documented as of this encounter Goals Goal Patient Goal Type Associated Problems Recent Progress Patient-Stated? Author LVAD Short Term Goal General On track( 024 11:53 AM EDT) Yes Katrin Oviedo RN Note: - 07/04/23: Patient states he wants to attend a wedding in November in [place] LVAD Trimmer Tailer Goal General On track( 024 11:53 AM [...] documented as of this encounter Care Teams Sponge Fisherman Relationship Specialty Start Date End Date Herberth Perez MD [address] [place] [address] [place] [address] PCP - General 07/17/20 Gracia Petersen APRN [address] [place] [address] Nurse Practitioner Internal Medicine 08/06/20 Yunior Solorzano MD [address] [facility] [address] [place] [address] Consulting Physician Gastroenterology 07/18/22 Ross Baez, DO [address] [address] Surgeon Cardiothoracic Surgery 07/18/22 Edith Aleman, HAND SHAKER None VAD Coordinator 10/14/24 documented as of this encounter
--- OUTSIDE RECORDS SUMMARY | 2025-02-19 15:59 | XMS_ITS | Encounter Summary ---
Author Organization [employer] ([place], [place], [place], [place], [place]) Address [address] [place] [address] Care Team Providers Care Applied Psychology Chair Name Role Phone Unavailable Primary Care Provider Unavailabl e Encounter Details Date Type Department Care Team (Late st Contact Info) Description 03/29/2018 Transcribed Document [facility] Family Medicine [facility] [place] [address] ProviderMg MD [facility] [place] [address] Social History Tobacco Use Types Packs/Day Years Used Date Smoking Tobacco: Never Assessed Sex and Gender Information Value Date Recorded Sex Assigned at Not on file Legal Sex Male 1:09 PM CDT Gender Identity Not on file Sexual Orientation Not on file documented as of this encounter Miscellaneous Notes * Cerner Conversion Note - Mg ProviderMD - 03/29/2018 1:22 PM ASSISTANT PROPERTY MANAGER [facility] [address], [place] [address] Patient Copy Patient Information: Name: JOSE PEARSON Current Date: 03/29/2018 13:22:49 : 1970 Patient Address: [address] [place] [id number] Patient Attending Physician: Primary Care Provider: HUMA YARBROUGH (REF)MD-INT Primary Care Provider Discharge Diagnosis: Atrial fibrillation; NICM (nonischemic cardiomyopathy) Weight on Admission: 236 lb, 8 oz Weight at Discharge: 237 lb, 4 oz Comment: Follow-up Instructions: With: Address: When: [place] [address] [place] [address] Business (1) Within 2 weeks [...] Discharge Instructions (if any): Final Medication List: [facility] [address], [address] [place], [place] [id number], [phone] sotalol (sotalol 120 mg oral tablet) 1 [...] nasal (fluticasone 50 mcg/inh nasal spray) 1 [place](s) Nostrils Both Every Day. furosemide (Lasix 40 [...] Other treatments may include cardiac resynchronization therapy (ASTRONOMY TEACHER) or a left ventricular assist device (LVAD). [...] to manage stress. General instructions ??? Take hqac-ckt-xvnqkoq and prescription medicines only as told by [...] 05/05/2005 Document Revised: 10/18/2016 Document Reviewed: 08/22/2016 [employer] Interactive Patient Education ? 2017 [employer]. Atrial Fibrillation Atrial fibrillation is a [...] ??? Certain heart rhythm disorders, such as Cwud-Avacyinwc-Yrktx syndrome. Other causes include: ??? Pneumonia. ??? [...] 02/20/2006 Document Revised: 06/29/2016 Document Reviewed: 06/17/2015 [employer] Interactive Patient Education ? 2017 [employer]. Medication Leaflets: sotalol (JS ta lol) [...] may report side effects to FDA at 4-215-UII-3704. What other drugs will affect sotalol? Many [...] interact with sotalol. This includes prescription and oxou-oun-hqmplye medicines, vitamins, and herbal products. Give a [...] to ensure that the information provided by [employer] ('EUROBOXtum') is accurate, up-to-date, and complete, but no guarantee is made to that effect. Drug information contained herein may be time sensitive. [employer]att[employer] information has been compiled for use by healthcare practitioners and consumers in the [place] and therefore [employer] does not warrant that uses outside of the [place] are appropriate, unless specifically indicated otherwise. [employer] drug information does not endorse drugs, diagnose patients or recommend therapy. [employer] drug information is an informational resource designed [...] effective or appropriate for any given patient. [employer] does not assume any responsibility for any aspect of healthcare administered with the aid of information Watt[employer] provides. The information contained herein is not intended to cover all possible uses, directions, precautions, warnings, drug interactions, allergic reactions, or adverse effects. If you have questions about the drugs you are taking, check with your doctor, nurse or pharmacist. Copyright 8489-1816 [employer] Version: .. Revision Date: 02/18/2014. CIGARETTE SMOKING: The facts are clear, cigarette smoking will shorten your life. Smoking can cause many illnesses along the way. As a healthcare provider, we recommend that you stop smoking. Assistance with quitting is available by contacting 3-487-QLUT-NOW. This is a free resource providing counseling, [...] Be sure to sign up for the LOYAL3 patient portal, which gives you 26/09 access to your medical information ??? including these discharge instructions ??? using your computer, smartphone, or tablet. Just go to mGenerator to get started. Questions? Call . [facility] would like to thank you for allowing us to assist you with your healthcare needs. ANASTASIA Rich DENNIS PAUL, (or rental representative) have received the above patient education materials/instructions and have verbalized understanding: Patient Signature _ Date/Time Patient Keno Manager Signature (if needed) Date/Time Clinician/Hospital Keno Manager Signature (if needed) Date/Time Electronically signed by Jackie, [facility] Conversion Semiconductor Wafer Inspector Cerner at 06/19/2022 11:12 PM CDT documented in this encounter Plan of Treatment Not on file documented as of this encounter Visit Diagnoses Not on filedocumented in this encounter
--- OUTSIDE RECORDS SUMMARY | 2025-02-19 15:59 | XMS_ITS | Encounter Summary ---
Author Organization [employer] ([place], [place], [place], [place]) Address [address] [place] [address] Care Team Providers Care Paralegal Specialist Name Role Phone Unavailable Primary Care Provider Stefan pond Encounter Details Date Type Department Care Team (Late st Contact Info) Description 04/14/2018 Transcribed Document [facility] Family Medicine [facility] [place] [address] ProviderMg MD [facility] [place] [address] Social History Tobacco Use Types Packs/Day Years Used Date Smoking Tobacco: Never Assessed Sex and Gender Information Value Date Recorded Sex Assigned at Not on file Legal Sex Male 1:09 PM CDT Gender Identity Not on file Sexual Orientation Not on file documented as of this encounter Miscellaneous Notes * Cerner Conversion Note - Mg ProviderMD - 04/14/2018 9:31 PM TANDEM MILL OPERATOR Admission History, Adult Entered On: 04/14/2018 23:19 [...] Ambulatory Legal Guardian : Spouse Support Person/Patient Behaviorist : Yes Support Person/Pt Rep Name : Deidre Pearson-- Support Person/Pt Rep Contact Information : [phone] Want Family/Rep/Phys Notified of Admit : No Emergency Contact #1 : Deidre Pearson Emergency Contact #1 Phone Number : [phone] Emergency Contact #1 Relationship : Emergency Contact #2 : NA Emergency Contact #2 Phone Number : NA Emergency Contact #2 Relationship : NA Chief Complaint : Pacemaker fired yesterday, states chest feels funny . reports + LOC x 30 sec. Primary Language : Hong Konger Preferred Communication Mode : Verbal Communication Barrier [...] Scale Risk Level : 0-24 Low Risk Mohawk Fall Interventions : Adequate lighting, Assistive devices [...] Source : Stated Height Entry Format : [place] Height, Feet : 6 ft(Converted to: 183 cm, 72 Inch) Height, Inches : 0 Inch(Converted to: 0 ft 0 Inch, 0.00 cm) Clinical Height : 182.88 cm Weight Source : Standing scale Weight Entry Format : [place] Clinical Dosing Weight : 104.23 kg Weight, Pounds : 229 lb Weight, Ounces : 5 oz Body Surface Area (BSA) : 2.26 m2 Body Mass Index : 31.2 kg/m2 (HI) [place] Body Weight : 77 kg Caridad Clements [...]
--- OUTSIDE RECORDS SUMMARY | 2025-02-19 15:59 | XMS_ITS | Encounter Summary ---
Author Organization [facility] Address [address] [place] [address] Care Team Providers Care Fruit Or Nut Farmworker Name Role Phone Herberth Perez MD Primary Care Provider [phone] Gracia Petersen AUTOMOTIVE MANAGER Unavailable [phone] Yunior Solorzano MD Unavailable [phone] Ross Baez DO Unavailable [phone] Edith Aleman RN Unavailable Unavailable Encounter Details Date Type Department Care Team (Latest Contact Info) Description 12/28/2024 Anticoagulation - Warfarin Visit [facility] [place] [address] [place] [address] Gracia Vizcarra, RN [facility] [address] [place] [address] LVAD (left ventricular assist device) present ([facility]) (Primary Dx); Anticoagulant long-term use Social [...] any time in the past 12 m [facility], were you homeless or living in [...] first t janine in the morning (EYE-ANIMAL TECH) to steady your nerves or to get [...] Description 04/22/2025 9:00 AM EST Ancillary Procedure [facility] [place] [address] [place] [address] documented as of this encounter Goals Goal Patient Goal Type Associated Problems Recent Progress Patient-Stated? Author LVAD Short Term Goal General On track( 024 11:53 AM EDT) Yes Katrin Oviedo RN Note: - 07/04/23: Patient states he wants to attend a wedding in November in [place] LVAD Airplane Patroller Goal General On track( 024 11:53 AM [...] Blood Venous blood specimen / Unknown 12/27/2024 [facility] Provider POINT OF CARE TEST ENTER/SHERIF T ORDERABLES Final Result documented in this encounter Visit Diagnoses Diagnosis LVAD (left ventricular assist device) present ([facility])- Primary Anticoagulant long-term use Encounter for [...] documented as of this encounter Care Teams Fruit Or Nut Farmworker Relationship Specialty Start Date End Date Herberth Perez MD [address] [place] [address] [place] [address] PCP - General 07/17/20 Gracia Petersen APRN [address] [place] [address] Nurse Practitioner Internal Medicine 08/06/20 Yunior Solorzano MD [address] [place] [address] Consulting Physician Gastroenterology 07/18/22 Ross Baez DO [address] [address] Surgeon Cardiothoracic Surgery 07/18/22 Edith Aleman, OPERATIONS VOCATIONAL INSTRUCTOR None VAD Coordinator 10/14/24 documented as of this encounter
--- OUTSIDE RECORDS SUMMARY | 2025-02-19 15:59 | XMS_ITS | Encounter Summary ---
Author Organization [employer] ([place], [place], [place], [place]) Address [address] [place] [address] Care Team Providers Care Senior Data Warehouse Architect Name Role Phone Unavailable Primary Care Provider Unavailabl e Encounter Details Date Type Department Care Team (Late st Contact Info) Description 04/14/2018 Transcribed Document [facility] Family Medicine Counts include 234 beds at the [facility] [address] ProviderMg MD Counts include 234 beds at the [facility] [address] Social History Tobacco Use Types Packs/Day Years Used Date Smoking Tobacco: Never Assessed Sex and Gender Information Value Date Recorded Sex Assigned at Not on file Legal Sex Male 1:09 PM CDT Gender Identity Not on file Sexual Orientation Not on file documented as of this encounter Miscellaneous Notes * Cerner Conversion Note - Mg Ritchie MD - 04/14/2018 11:19 PM PMO LEAD Care Management Assessment/Plan Entered On: 04/16/2018 9:22 [...] Pearson Emergency Contact #1 Phone Number : [phone] Emergency Contact #1 Relationship : Emergency Contact [...] Disposition Note-CM Discharge To Care Management : Home/Residential/Correction or Self Care -01 Breann Ordaz, RN - 04/16/2018 9:19 EST Electronically signed by [facility], [facility] Conversion Ecology Professor Cerner at 06/19/2022 10:56 PM CDT documented in this encounter Plan of Treatment Not on file documented as of this encounter Visit Diagnoses Not on filedocumented in this encounter
--- OUTSIDE RECORDS SUMMARY | 2025-02-19 15:59 | XMS_ITS | Encounter Summary ---
Author Organization [employer] ([place], [place], [place], [place], [place]) Address [address] [place] [address] Care Team Providers Care Metal Finisher Name Role Phone Unavailable Primary Care Provider Unavailabl e Encounter Details Date Type Department Care Team (Late st Contact Info) Description 04/14/2018 Transcribed Document [facility] Family Medicine [facility] [place] [address] ProviderMg MD [facility] [place] [address] Social History Tobacco Use Types Packs/Day Years Used Date Smoking Tobacco: Never Assessed Sex and Gender Information Value Date Recorded Sex Assigned at Not on file Legal Sex Male 1:09 PM CDT Gender Identity Not on file Sexual Orientation Not on file documented as of this encounter Miscellaneous Notes * Cerner Conversion Note - Historical ProviderMD - 04/14/2018 9:18 PM SCIENTIFIC ILLUSTRATOR Nutrition Assessment Entered On: 04/16/2018 12:01 EST [...] PMH: angina, pacemaker, GERD, CVA, HTN, HLD, SC Labs: Na 135, Alb 3.3 Meds: colace, [...] 04/16/2018 16:12 EST Electronically signed by Jackie [facility] Conversion Drafting Engineer Cerner at 06/19/2022 10:49 PM CDT documented in this encounter Plan of Treatment Not on file documented as of this encounter Visit Diagnoses Not on filedocumented in this encounter
--- OUTSIDE RECORDS SUMMARY | 2025-02-19 15:59 | XMS_ITS | Encounter Summary ---
Author Organization [facility] Address [address] [place] [address] Care Team Providers Care Sales Technician Home Theater Name Role Phone Herberth Perez MD Primary Care Provider [phone] Gracia Petersen MEDICAL LABORATORY TECHNICIAN Unavailable [phone] Yunior Solorzano MD Unavailable [phone] Ross Baez DO Unavailable [phone] Edith Aleman RN Unavailable Unavailable Reason for Visit * Reason Onset Date Comments Patient Aids requesting office notes 12/30/2024 Encounter Details Date Type Department Care Team (Late st Contact Info) Description 12/30/2024 Telephone [facility] [place] [address] [facility] [place] [address] Melisa Vazquez MD [address] [place] [address] Patient Aids requesting office notes [...] in the past [address] [facility], were you homeless or living in [...] drink first t janine in the morning (EYE-SOUP MIXER) to steady your nerves or to get [...] optimal time of day to reach caller: [phone] Note: Please do not reply to this [...] Description 04/22/2025 9:00 AM EST Ancillary Procedure [facility] [place] [address] [place] [address] documented as of this encounter Goals Goal Patient Goal Type Associated Problems Recent Progress Patient-Stated? Author LVAD Short Term Goal General On track( 11:53 AM EDT) Yes Katrin Oviedo, RN Note: - 07/04/23: Patient states he wants to attend a wedding in November in [place] LVAD Centerless Grinding Machine Adjuster Goal General On track( 11:53 AM EDT) [...] as of this encounter Care Teams Sales Technician Home Theater Relationship Specialty Start Date End Date Herberth Perez MD [address] [place] [address] PCP - General 07/17/20 Gracia Petersen APRN [address] [place] [address] Nurse Practitioner Internal Medicine 08/06/20 Yunior Solorzano MD [address] [place] [address] Consulting Physician Gastroenterology 07/18/22 Ross Baez, [address] [place] [address] Surgeon Cardiothoracic Surgery 07/18/22 Edith Aleman, BRIDGE INSTRUCTOR None VAD Coordinator 10/14/24 documented as of this encounter
--- OUTSIDE RECORDS SUMMARY | 2025-02-19 15:59 | XMS_ITS | Encounter Summary ---
Author Organization [facility] Address [address] [place] [address] Care Team Providers Care Pocket Flap Creasing Machine Operator Name Role Phone Herberth Perez MD Primary Care Provider [phone] Gracia Petersen SENIOR JAVA DEVELOPER Unavailable [phone] Yunior Solor[place]ano MD Unavailable [phone] Ross Baez DO Unavailable [phone] Edith Aleman RN Unavailable Unavailable Encounter Details Date Type Department Care Team (Late st Contact Info) Description 01/08/2025 [facility] [place] [address] [place] [address] Edith Aleman, MACHINE OPERATOR HELPER None Social History Tobacco Use Types Packs/Day [...] 0 03/19/2024 Housing Stability Vital Sign Answer Trunog e Recorded In the last 12 months, was t here a time when you were not able to pay the mortgage or rent on time? No 04/08/2024 In the past 12 months, how m any times have you moved where you were living? 0 04/08/2024 At any time in the past 12 m [facility], were you homeless or living in a [...] drink first t janine in the morning (EYE-CORN BREEDER) to steady your nerves or to get [...] Description 04/22/2025 9:00 AM EST Ancillary Procedure [facility] [place] [address] [place] [address] documented as of this encounter Goals Goal Patient Goal Type Associated Problems Recent Progress Patient-Stated? Author LVAD Short Term Goal General On track( 11:53 AM EDT) Yes Katrin Oviedo, MARYCARMEN Note: - 07/04/23: Patient states he wants to attend a wedding in November in [place] LVAD Patient Attendant Goal General On track( 11:53 AM EDT) [...] documented as of this encounter Care Teams Pocket Flap Creasing Machine Operator Relationship Specialty Start Date End Date Herberth Perez MD [address] [place] [address] [place] [address] PCP - General 07/17/20 Gracia Petersen APRN [address] [place] [address] Nurse Practitioner Internal Medicine 08/06/20 Yunior [place]or[place]ano MD [address] [place] [address] Consulting Physician Gastroenterology 07/18/22 Ross Baez, [address] [phone] Surgeon Cardiothoracic Surgery 07/18/22 Edith Aleman, MACHINE OPERATOR HELPER None VAD Coordinator 10/14/24 documented as of this encounter
--- OUTSIDE RECORDS SUMMARY | 2025-02-19 15:59 | XMS_ITS | Encounter Summary ---
Author Organization [employer] ([place], [place], [place], [place], [place]) Address [address] [place] [address] Care Team Providers Care Restaurant Assistant Name Role Phone Unavailable Primary Care Provider Unavailabl e Encounter Details Date Type Department Care Team (Late st Contact Info) Description 03/29/2018 Transcribed Document [facility] Family Medicine [address] [place] [address] ProviderMg MD [facility] [place], [place] [address] Social History Tobacco Use Types Packs/Day Years Used Date Smoking Tobacco: Never Assessed Sex and Gender Information Value Date Recorded Sex Assigned at Not on file Legal Sex Male 1:09 PM CDT Gender Identity Not on file Sexual Orientation Not on file documented as of this encounter Miscellaneous Notes * Cerner Conversion Note - Historical ProviderMD - 03/29/2018 2:00 AM TESTING TECH Billiard Parlor Manager Details Entered On: 03/29/2018 1:30 EST Performed [...] Julia Majano, Rn-Resource - 03/29/2018 1:30 EST documented in this encounter Plan of Treatment Not on file documented as of this encounter Visit Diagnoses Not on filedocumented in this encounter
--- OUTSIDE RECORDS SUMMARY | 2025-02-19 15:59 | XMS_ITS | Encounter Summary ---
Author Organization [facility] Address [address] [place] [address] Care Team Providers Care Leather Belt Loop Cutter Name Role Phone Herberth Perez MD Primary Care Provider [phone] Gracia Petersen CELLOPHANER Unavailable [phone] Yunior Solor[place]ano MD Unavailable [phone] Ross Baez DO Unavailable [phone] Edith Aleman RN Unavailable Unavailable Encounter Details Date Type Department Care Team (Late st Contact Info) Description 01/07/2025 Telephone [facility] [place] [address] [facility] [place] [address] Melisa Vazquez MD [address] [place] [address] Social History Tobacco Use Types [...] time in the past [address] [facility], were you homeless or living in a [...] drink first t janine in the morning (EYE-MILL BEAM FITTER) to steady your nerves or to get rid of a hangover? 0 09/19/2021 CAGE Questionnaire Score 0 022 Utilities Answer Date Recorded In the past 12 months has th e [employer], gas, oil, or water [employer] threatened to shut off services in your [...] Supply Order Due Date: 01/07/25 Send To: [facility] FX: [phone] Best contact number: [phone] Lyn Optimal time of day to reach caller: ANYTIME Additional comments/information from caller: Caller has previously faxed the order to [phone] and has re-faxed it to [phone] Note: Please do not reply to this [...] Description 04/22/2025 9:00 AM EST Ancillary Procedure [facility] [place] [address] [place] [address] documented as of this encounter Goals Goal Patient Goal Type Associated Problems Recent Progress Patient-Stated? Author LVAD Short Term Goal General On track( 11:53 AM EDT) Yes Katrin Oviedo, RN Note: - 07/04/23: Patient states he wants to attend a wedding in November in [place] LVAD Usp Goal General On track( 024 [...] documented as of this encounter Care Teams Leather Belt Loop Cutter Relationship Specialty Start Date End Date Herberth Perez MD [address] [place] [address] PCP - General 07/17/20 Gracia Petersen APRN [address] [place] [address] Nurse Practitioner Internal Medicine 08/06/20 Yunior Solorzano MD [address] [place] [address] Consulting Physician Gastroenterology 07/18/22 Ross Baez DO [address] [place] [address] [address] Surgeon Cardiothoracic Surgery 07/18/22 Edith Aleman, RESEARCH CHEMIST None VAD Coordinator 10/14/24 documented as of this encounter
--- OUTSIDE RECORDS SUMMARY | 2025-02-19 15:59 | XMS_ITS | Encounter Summary ---
Author Organization [employer] ([place], [place], [place], [place], [place]) Address [address] [place] [address] Care Team Providers Care French Polisher Name Role Phone Unavailable Primary Care Provider Unavailabl e Encounter Details Date Type Department Care Team (Late st Contact Info) Description 03/29/2018 Transcribed Document [facility] [place] [address] [place] [address] ProviderMg MD [facility] [place] [address] Social History Tobacco Use Types Packs/Day Years Used Date Smoking Tobacco: Never Assessed Sex and Gender Information Value Date Recorded Sex Assigned at Not on file Legal Sex Male 1:09 PM CDT Gender Identity Not on file Sexual Orientation Not on file documented as of this encounter Miscellaneous Notes * Cerner Conversion Note - Historical ProviderMD - 03/29/2018 10:29 AM MAINFRAME SYSTEMS ADMINISTRATOR Therapy Screen, OT Entered On: 03/29/2018 10:35 [...]
--- OUTSIDE RECORDS SUMMARY | 2025-02-19 16:00 | XMS_ITS | Encounter Summary ---
Author Organization [employer] ([place], [place], [place], [place], [place]) Address [address] [place] [address] Care Team Providers Care Janitorial Tech Name Role Phone Unavailable Primary Care Provider Unavailabl e Encounter Details Date Type Department Care Team (Late st Contact Info) Description 03/29/2018 Transcribed Document [facility] [place] [facility] [place] [address] ProviderMg MD [facility] [place] [address] Social History Tobacco Use [...] Mg Ritchie MD - 03/29/2018 10:02 AM LEAD PRESSMAN DATE OF PROCEDURE: 03/29/2018 RIGHT HEART CATHETERIZATION INDICATIONS: Acute on chronic left systolic heart failure with acute hypoxic respiratory failure. PROCEDURE: The patient has history of nonischemic dilated cardiomyopathy and recently presented to us with worsening [place] [employer] functional class III heart failure symptoms. DESCRIPTION OF PROCEDURE: Following an informed written consent, patient was brought to the cardiac catheterization laboratory where conscious sedation was performed with intravenous Versed and fentanyl for less than 23 minutes. The right groin was prepped and draped in usual sterile fashion and anesthetized with 1% xylocaine solution. Using a single wall puncture technique, an 8-Burkinan side-port sheath was introduced into the right common femoral vein. Sheath aspirated and flushed with heparinized saline solution. An 8-Burkinan [place] thermodilution catheter was advanced under continued fluoroscopic [...]
--- OUTSIDE RECORDS SUMMARY | 2025-02-19 16:00 | XMS_ITS | Encounter Summary ---
Author Organization [employer] ([place], [place], [place], [place], [place]) Address [address] [place] [address] Care Team Providers Care Senior Systems Software Engineer Name Role Phone Unavailable Primary Care Provider Unavailabl e Encounter Details Date Type Department Care Team (Late st Contact Info) Description 04/20/2018 Transcribed Document [facility] [place] [facility] [place] [address] ProviderMg MD [facility] [place] [address] Social History Tobacco Use Types Packs/Day Years Used Date Smoking Tobacco: Never Assessed Sex and Gender Information Value Date Recorded Sex Assigned at Not on file Legal Sex Male 1:09 PM CDT Gender Identity Not on file Sexual Orientation Not on file documented as of this encounter Miscellaneous Notes * Cerner Conversion Note - Mg ProviderMD - 04/20/2018 11:41 AM CONTRACTOR BUYER Patient: JOSE PEARSON Age: 47 years Sex: [...] Gastrointestinal: Normal bowel sounds. Integumentary: Warm, Dry, [place]. Results Review General results HYROID ULTRASOUND [...]
--- OUTSIDE RECORDS SUMMARY | 2025-02-19 16:00 | XMS_ITS | Encounter Summary ---
Author Organization [employer] ([place], [place], [place], [place], [place]) Address [address] [place] [address] Care Team Providers Care Cloth Picker Name Role Phone Unavailable Primary Care Provider Unavailabl e Encounter Details Date Type Department Care Team (Late st Contact Info) Description 04/19/2018 Transcribed Document [facility] [place] [address] [place] [address] Social History Tobacco Use Types Packs/Day Years Used Date Smoking Tobacco: Never Assessed Sex and Gender Information Value Date Recorded Sex Assigned at Not on file Legal Sex Male 1:09 PM CDT Gender Identity Not on file Sexual Orientation Not on file documented as of this encounter Miscellaneous Notes * Cerner Conversion Note - Historical ProviderMD - 04/19/2018 11:42 AM BLOCKING MACHINE OPERATOR SECOND Spiritual Care Short Form Entered On: 04/19/2018 [...]
--- OUTSIDE RECORDS SUMMARY | 2025-02-19 16:00 | XMS_ITS | Encounter Summary ---
Author Organization [employer] ([place], [place], [place], [place], [place]) Address [address] [place] [address] Care Team Providers Care Sericulture Teacher Name Role Phone Unavailable Primary Care Provider Unavailabl e Encounter Details Date Type Department Care Team (Late st Contact Info) Description 04/20/2018 Transcribed Document [facility] [place] [facility] [place] [address] ProviderMg MD [facility] [place], [place] [address] Social History Tobacco Use Types Packs/Day Years Used Date Smoking Tobacco: Never Assessed Sex and Gender Information Value Date Recorded Sex Assigned at Not on file Legal Sex Male 1:09 PM CDT Gender Identity Not on file Sexual Orientation Not on file documented as of this encounter Miscellaneous Notes * Cerner Conversion Note - Historical ProviderMD - 04/20/2018 1:07 PM ADMINISTRATIVE INTERN Discharge Instructions Entered On: 04/20/2018 13:08 EST [...]
--- OUTSIDE RECORDS SUMMARY | 2025-02-19 16:00 | XMS_ITS | Encounter Summary ---
Author Organization [employer] ([place], [place], [place], [place], [place]) Address [address] [place] [address] Care Team Providers Care Program Clinician Name Role Phone Unavailable Primary Care Provider Unavailabl e Encounter Details Date Type Department Care Team (Late st Contact Info) Description 04/19/2018 Transcribed Document [facility] [place] [facility] [place] [address] ProviderMg MD [facility] [place] [address] Social History Tobacco Use Types Packs/Day Years Used Date Smoking Tobacco: Never Assessed Sex and Gender Information Value Date Recorded Sex Assigned at Not on file Legal Sex Male 1:09 PM CDT Gender Identity Not on file Sexual Orientation Not on file documented as of this encounter Miscellaneous Notes * Cerner Conversion Note - Mg ProviderMD - 04/19/2018 10:48 AM PUBLIC RELATIONS PROFESSIONAL Care Management Assessment/Plan Entered On: 04/19/2018 10:48 EST Performed On: 04/19/2018 10:48 EST by Breann Ordaz, RN Care Management Note Anticipated Discharge Date : 04/17/2018 21:00 EST Care Management Note : Home plan at discharge when medically cleared, follow up appoinment placed in discharge form...arh Care Management Note Report : Breann Ordaz, RN - 04/18/18 14:23:07 Jim Sanchez set up appointment with [facility] endocrinology, CAREY cancelled [facility] appointment and faxed patient information over to [phone]...arh Breann Ordaz, RN - 04/18/18 10:02:59 CM spoke with Rianna supply coordinator at [facility]'s office, fax [phone]. Patient's requested date for start of care is in 2 weeks but express clerk as scheduling out for 2-3 months. Patient is on the cancellation list at Dr. Salazar's with a July appointment time. Information sent to above fax, appointment time placed in discharge form...Breann Beebe, RN - 04/17/18 13:45:24 Per provider notes, patient scheduled for a DCCV today 04/17/18. [place] to stop all alcohol use. Thyroid work [...] Home plan at discharge, no needs noted...[facility] Documentation Status Complete : Yes Breann Ordaz, RN - 04/19/2018 10:48 EST Electronically signed by Jackie [facility] Conversion Wharfinger Chief Cerner at 06/19/2022 11:09 PM CDT documented in this encounter Plan of Treatment Not on file documented as of this encounter Visit Diagnoses Not on filedocumented in this encounter
--- OUTSIDE RECORDS SUMMARY | 2025-02-19 16:00 | XMS_ITS | Encounter Summary ---
Author Organization [employer] ([place], [place], [place], [place], [place]) Address [address] [place] [address] Care Team Providers Care Product Safety Administrator Name Role Phone Unavailable Primary Care Provider Unavailabl e Encounter Details Date Type Department Care Team (Late st Contact Info) Description 04/20/2018 Transcribed Document [facility] [place] [facility] [place] [address] ProviderMg MD [facility] [place], [place] [address] Social History Tobacco Use Types Packs/Day Years Used Date Smoking Tobacco: Never Assessed Sex and Gender Information Value Date Recorded Sex Assigned at Not on file Legal Sex Male 1:09 PM CDT Gender Identity Not on file Sexual Orientation Not on file documented as of this encounter Miscellaneous Notes * Cerner Conversion Note - Historical ProviderMD - 04/20/2018 2:00 AM PIER HAND HELPER Survey Worker Details Entered On: 04/20/2018 5:45 EST Performed [...]
--- OUTSIDE RECORDS SUMMARY | 2025-02-19 16:00 | XMS_ITS | Encounter Summary ---
Author Organization [employer] ([place], [place], [place], [place], [place]) Address [address] [place] [address] Care Team Providers Care Linecasting Machine Keyboard Operator Name Role Phone Unavailable Primary Care Provider Unavailabl e Encounter Details Date Type Department Care Team (Late st Contact Info) Description 04/20/2018 Transcribed Document [facility] [place] [facility] [place] [address] ProviderMg MD [facility] [place] [address] Social History Tobacco Use Types Packs/Day Years Used Date Smoking Tobacco: Never Assessed Sex and Gender Information Value Date Recorded Sex Assigned at Not on file Legal Sex Male 1:09 PM CDT Gender Identity Not on file Sexual Orientation Not on file documented as of this encounter Miscellaneous Notes * Cerner Conversion Note - Historical ProviderMD - 04/20/2018 5:00 AM ASTHMA EDUCATOR Chart Check - Review Order Profile Entered On: 04/20/2018 5:45 EST Performed On: 04/20/2018 5:00 EST by JB GUTIERREZ RN Chart Check Chart Reviewed Date and Time : 04/20/2018 5:45 EST Powerplans Initiated/Discontinued as Appropriate : Yes All Active Orders Reviewed : Yes JB GUTIERREZ RN - 04/20/2018 5:45 EST Electronically signed by Jackie [facility] Conversion Art Gallery Director Cerner at 06/19/2022 11:09 PM CDT documented in this encounter Plan of Treatment Not on file documented as of this encounter Visit Diagnoses Not on filedocumented in this encounter
--- OUTSIDE RECORDS SUMMARY | 2025-02-19 16:00 | XMS_ITS | Encounter Summary ---
Author Organization [email or web address] ([place], [place], [place], [place], [place]) Address [address] [place] [address] Care Team Providers Care Latexer Name Role Phone Unavailable Primary Care Provider Unavailabl e Encounter Details Date Type Department Care Team (Late st Contact Info) Description 04/19/2018 Transcribed Document [facility] [place] [facility] [place] [address] ProviderMg MD [facility] [place] [address] Social History Tobacco Use Types Packs/Day Years Used Date Smoking Tobacco: Never Assessed Sex and Gender Information Value Date Recorded Sex Assigned at Not on file Legal Sex Male 1:09 PM CDT Gender Identity Not on file Sexual Orientation Not on file documented as of this encounter Miscellaneous Notes * Cerner Conversion Note - Historical ProviderMD - 04/19/2018 5:00 AM INVAS TECH Height and Weight, Routine Entered On: 04/19/2018 5:58 EST Performed On: 04/19/2018 5:00 EST by Polly Renteria Care [facility] Unit Coord Height and Weight, Routine Routine Weight Source : Standing scale Routine Weight Entry Format : Carson Routine Weight, Pounds : 229 lb Routine Weight, Ounces : 9 oz Routine Weight Calculation : 104.35 kg Height Source : Stated Height Entry Format : Carson Height, Feet : 6 ft Height, Inches : 0 Inch Clinical Height : 182.88 cm Body Surface Area (BSA), Routine : 2.26 m2 Body Mass Index (BMI), Routine : 31.2 kg/m2 Polly Renteria Care [facility] Unit Coord - 04/19/2018 5:58 EST documented in this encounter Plan of Treatment Not on file documented as of this encounter Visit Diagnoses Not on filedocumented in this encounter
--- OUTSIDE RECORDS SUMMARY | 2025-02-19 16:00 | XMS_ITS | Encounter Summary ---
Author Organization [employer] ([place], [place], [place], [place], [place]) Address [address] [place] [address] Care Team Providers Care Guidance Counselor Name Role Phone Unavailable Primary Care Provider Unavailabl e Encounter Details Date Type Department Care Team (Late st Contact Info) Description 03/29/2018 Transcribed Document [facility] [place] [facility] [place] [address] ProviderMg MD [address] [place] [address] Social History Tobacco Use Types Packs/Day Years Used Date Smoking Tobacco: Never Assessed Sex and Gender Information Value Date Recorded Sex Assigned at Not on file Legal Sex Male 1:09 PM CDT Gender Identity Not on file Sexual Orientation Not on file documented as of this encounter Miscellaneous Notes * Cerner Conversion Note - Mg ProviderMD - 03/29/2018 1:22 PM ANESTHESIOLOGIST Patient Education Materials Follows: Cardiomyopathy, Adult Cardiomyopathy [...] Other treatments may include cardiac resynchronization therapy (MATERIALS RECYCLER) or a left ventricular assist device (LVAD). [...] to manage stress. General instructions ??? Take [id number] and prescription medicines only as told by [...] 05/05/2005 Document Revised: 10/18/2016 Document Reviewed: 08/22/2016 [employer] Interactive Patient Education ? 2017 [employer] Emergency Medicine Atrial Fibrillation Atrial fibrillation [...] ??? Certain heart rhythm disorders, such as Pctz-[id number]-Vpcgy syndrome. Other causes include: ??? Pneumonia. ??? [...] 02/20/2006 Document Revised: 06/29/2016 Document Reviewed: 06/17/2015 [employer] Interactive Patient Education ? 2017 [employer] documented in this encounter Plan of Treatment Not on file documented as of this encounter Visit Diagnoses Not on filedocumented in this encounter
--- OUTSIDE RECORDS SUMMARY | 2025-02-19 16:00 | XMS_ITS | Encounter Summary ---
Author Organization [employer] ([place], [place], [place], [place], [place]) Address [address] [place] [address] Care Team Providers Care Fitter / Welder Name Role Phone Unavailable Primary Care Provider Unavailabl e Encounter Details Date Type Department Care Team (Late st Contact Info) Description 04/20/2018 Transcribed Document [facility] [place] [facility] [place] [address] ProviderMg MD [facility] [place], [place] [address] Social History Tobacco Use Types Packs/Day Years Used Date Smoking Tobacco: Never Assessed Sex and Gender Information Value Date Recorded Sex Assigned at Not on file Legal Sex Male 1:09 PM CDT Gender Identity Not on file Sexual Orientation Not on file documented as of this encounter Miscellaneous Notes * Cerner Conversion Note - Historical ProviderMD - 04/20/2018 1:33 PM HEAD BOOKKEEPER Nursing Discharge Summary Entered On: 04/20/2018 13:34 EST Performed On: 04/20/2018 13:33 EST by RAJAT NAZARIO technology lead Documentation Patient Disposition, General : Discharge IV [...] 04/20/2018 13:33 EST Electronically signed by Jackie [facility] Conversion Cooperative Extension Agent Cerner at 06/19/2022 11:02 PM CDT documented in this encounter Plan of Treatment Not on file documented as of this encounter Visit Diagnoses Not on filedocumented in this encounter
--- OUTSIDE RECORDS SUMMARY | 2025-02-19 16:00 | XMS_ITS | Encounter Summary ---
Author Organization [employer] ([place], [place], [place], [place], [place]) Address [address] [place] [address] Care Team Providers Care Mental Health Associate Name Role Phone Unavailable Primary Care Provider Unavailabl e Encounter Details Date Type Department Care Team (Late st Contact Info) Description 04/19/2018 Transcribed Document [facility] [place] [facility] [place] [address] ProviderMg MD [facility] [place] [address] Social History Tobacco Use Types Packs/Day Years Used Date Smoking Tobacco: Never Assessed Sex and Gender Information Value Date Recorded Sex Assigned at Not on file Legal Sex Male 1:09 PM CDT Gender Identity Not on file Sexual Orientation Not on file documented as of this encounter Miscellaneous Notes * Cerner Conversion Note - Mg ProviderMD - 04/19/2018 11:28 AM STATION REPAIRER Patient: JOSE PEARSON Age: 47 years Sex: [...] Gastrointestinal: Normal bowel sounds. Integumentary: Warm, Dry, [place]. Results Review General results HYROID ULTRASOUND HISTORY: [...]
--- OUTSIDE RECORDS SUMMARY | 2025-02-19 16:00 | XMS_ITS | Encounter Summary ---
Author Organization [employer] ([place], [place], [place], [place], [place]) Address [address] [place] [address] Care Team Providers Care Parts Designer Name Role Phone Unavailable Primary Care Provider Unavailabl e Encounter Details Date Type Department Care Team (Late st Contact Info) Description 04/19/2018 Transcribed Document [facility] [place] [facility] [place] [address] ProviderMg MD [facility] [place] [address] Social History Tobacco Use Types Packs/Day Years Used Date Smoking Tobacco: Never Assessed Sex and Gender Information Value Date Recorded Sex Assigned at Not on file Legal Sex Male 1:09 PM CDT Gender Identity Not on file Sexual Orientation Not on file documented as of this encounter Miscellaneous Notes * Cerner Conversion Note - Historical ProviderMD - 04/19/2018 5:00 PM GLASSWARE FINISHER Chart Check - Review Order Profile Entered On: 04/19/2018 15:07 EST Performed On: 04/19/2018 17:00 EST by Ana Montenegro RN Chart Check Chart Reviewed Date and Time : 04/19/2018 15:07 EST Powerplans Initiated/Discontinued as Appropriate : Yes All Active Orders Reviewed : Yes Ana Montenegro RN - 04/19/2018 15:07 EST Electronically signed by Jackie [facility] Conversion Bookseamer Blindstitch Cerner at 06/19/2022 11:12 PM CDT documented in this encounter Plan of Treatment Not on file documented as of this encounter Visit Diagnoses Not on filedocumented in this encounter
--- OUTSIDE RECORDS SUMMARY | 2025-02-19 16:00 | XMS_ITS | Encounter Summary ---
Author Organization [employer] ([place], [place], [place], [place], [place]) Address [address] [place] [address] Care Team Providers Care Residential Advisor Name Role Phone Unavailable Primary Care Provider Unavailabl e Encounter Details Date Type Department Care Team (Late st Contact Info) Description 04/19/2018 Transcribed Document [facility] [place] [facility] [place] [address] ProviderMg MD [facility] [place], [place] [address] Social History Tobacco Use Types Packs/Day Years Used Date Smoking Tobacco: Never Assessed Sex and Gender Information Value Date Recorded Sex Assigned at Not on file Legal Sex Male 1:09 PM CDT Gender Identity Not on file Sexual Orientation Not on file documented as of this encounter Miscellaneous Notes * Cerner Conversion Note - Historical ProviderMD - 04/19/2018 2:00 AM JOY LOADING MACHINE OPERATOR Generation Engineering Technologist Details Entered On: 04/19/2018 6:22 EST Performed [...] : Appropriate Arterial Line : No JB GUTIERRZE, MARYCARMEN - 04/19/2018 6:22 EST documented in this encounter Plan of Treatment Not on file documented as of this encounter Visit Diagnoses Not on filedocumented in this encounter
--- OUTSIDE RECORDS SUMMARY | 2025-02-19 16:00 | XMS_ITS | Encounter Summary ---
Author Organization [employer] ([place], [place], [place], [place], [place]) Address [address] [place] [address] Care Team Providers Care Oil Gas And Pipe Tester Name Role Phone Unavailable Primary Care Provider Unavailabl e Encounter Details Date Type Department Care Team (Late st Contact Info) Description 03/29/2018 Transcribed Document [facility] [place] Family Medicine [facility] [place] [address] ProviderMg MD [place] [address] Social History Tobacco Use Types Packs/Day Years Used Date Smoking Tobacco: Never Assessed Sex and Gender Information Value Date Recorded Sex Assigned at Not on file Legal Sex Male 1:09 PM CDT Gender Identity Not on file Sexual Orientation Not on file documented as of this encounter Miscellaneous Notes * Cerner Conversion Note - Mg ProviderMD - 03/29/2018 1:21 PM SUPERVISOR TRAIN OPERATIONS [facility] [address], [place] [address] Patient Copy Patient Information: Name: JOSE PEARSON Current Date: 03/29/2018 13:21:46 : 1970 Patient [address]: [address] [place] [id number] Patient Attending Physician: Primary Care Provider: HUMA YARBROUGH (REF)MD-INT Primary Care Provider Discharge Diagnosis: Atrial fibrillation; NICM (nonischemic cardiomyopathy) Weight on Admission: 236 lb, 8 oz Weight at Discharge: 237 lb, 4 oz Comment: Follow-up Instructions: With: Address: When: SO BURDICK [address] [place] [address] Business (1) Within 2 weeks [...] Discharge Instructions (if any): Final Medication List: [facility] [address], [address] [place], [place] [id number], [phone] sotalol (sotalol 120 mg oral tablet) 1 [...] nasal (fluticasone 50 mcg/inh nasal spray) 1 [place](s) Nostrils Both Every Day. furosemide (Lasix 40 [...] Other treatments may include cardiac resynchronization therapy (ROLL TRUCKER) or a left ventricular assist device (LVAD). [...] to manage stress. General instructions ??? Take xzei-lie-uxruadv and prescription medicines only as told by [...] 05/05/2005 Document Revised: 10/18/2016 Document Reviewed: 08/22/2016 ElseQian Xiao'er Interactive Patient Education ? 2017 Help.com Inc. Atrial Fibrillation Atrial fibrillation is a [...] ??? Certain heart rhythm disorders, such as Zgil-Rauyzipqp-Rhoxd syndrome. Other causes include: ??? Pneumonia. ??? [...] 02/20/2006 Document Revised: 06/29/2016 Document Reviewed: 06/17/2015 Help.com Interactive Patient Education ? 2017 Help.com Inc. Medication Leaflets: sotalol (JS ta lol) [...] may report side effects to FDA at 9-684-CDI-8996. What other drugs will affect sotalol? Many [...] interact with sotalol. This includes prescription and zxef-pfq-ekjkkqi medicines, vitamins, and herbal products. Give a [...] to ensure that the information provided by Emu Messenger. ('Lectoratitum') is accurate, up-to-date, and complete, but no guarantee is made to that effect. Drug information contained herein may be time sensitive. ShopAdvisor information has been compiled for use by healthcare practitioners and consumers in the [place] and therefore ShopAdvisor does not warrant that uses outside of the [place] are appropriate, unless specifically indicated otherwise. Apogenixs drug information does not endorse drugs, diagnose patients or recommend therapy. Apogenixs drug information is an informational resource designed [...] effective or appropriate for any given patient. ShopAdvisor does not assume any responsibility for any aspect of healthcare administered with the aid of information ShopAdvisor provides. The information contained herein is not intended to cover all possible uses, directions, precautions, warnings, drug interactions, allergic reactions, or adverse effects. If you have questions about the drugs you are taking, check with your doctor, nurse or pharmacist. Copyright 8171-1344 Emu Messenger. Version: .. Revision Date: 02/18/2014. CIGARETTE SMOKING: The facts are clear, cigarette smoking will shorten your life. Smoking can cause many illnesses along the way. As a healthcare provider, we recommend that you stop smoking. Assistance with quitting is available by contacting 0-694-ZJDR-NOW. This is a free resource providing counseling, [...] Be sure to sign up for the Uniplaces patient portal, which gives you 26/09 access to your medical information ??? including these discharge instructions ??? using your computer, smartphone, or tablet. Just go to [email or web address] to get started. Questions? Call . [facility] would like to thank you for allowing us to assist you with your healthcare needs. ANASTASIA Rich DENNIS PAUL, (or leasing representative) have received the above patient education materials/instructions and have verbalized understanding: Patient Signature _ Date/Time Patient Dicer Machine Operator Signature (if needed) Date/Time Clinician/Hospital Dicer Machine Operator Signature (if needed) Date/Time Electronically signed by Jackie, [facility] Conversion Fitness Club Manager Cerner at 06/19/2022 11:05 PM CDT documented in this encounter Plan of Treatment Not on file documented as of this encounter Visit Diagnoses Not on filedocumented in this encounter
--- OUTSIDE RECORDS SUMMARY | 2025-02-19 16:00 | XMS_ITS | Encounter Summary ---
Author Organization [employer] ([place], [place], [place], [place], [place]) Address [address] [place] [address] Care Team Providers Care Human Resources Mgr Name Role Phone Unavailable Primary Care Provider Unavailabl e Encounter Details Date Type Department Care Team (Late st Contact Info) Description 04/19/2018 Transcribed Document [facility] [place] [place] Family Medicine [facility] [place] [address] ProviderMg MD [facility] [place] [address] Social History Tobacco Use Types Packs/Day Years Used Date Smoking Tobacco: Never Assessed Sex and Gender Information Value Date Recorded Sex Assigned at Not on file Legal Sex Male 1:09 PM CDT Gender Identity Not on file Sexual Orientation Not on file documented as of this encounter Miscellaneous Notes * Cerner Conversion Note - Historical ProviderMD - 04/19/2018 5:00 AM PROVIDER ENROLLMENT SPECIALIST Chart Check - Review Order Profile Entered On: 04/19/2018 6:22 EST Performed On: 04/19/2018 5:00 EST by JB GUTIERREZ RN Chart Check Chart Reviewed Date and Time : 04/19/2018 6:22 EST Powerplans Initiated/Discontinued as Appropriate : Yes All Active Orders Reviewed : Yes JB GUTIERREZ RN - 04/19/2018 6:22 EST Electronically signed by Jackie [facility] Conversion Teaching Assistant Cerner at 06/19/2022 10:49 PM CDT documented in this encounter Plan of Treatment Not on file documented as of this encounter Visit Diagnoses Not on filedocumented in this encounter
--- OUTSIDE RECORDS SUMMARY | 2025-02-19 16:00 | XMS_ITS | Encounter Summary ---
Author Organization [employer] ([place], [place], [place], [place], [place]) Address [address] [place] [address] Care Team Providers Care Fruit And Vegetable Parer Name Role Phone Unavailable Primary Care Provider Unavailabl e Encounter Details Date Type Department Care Team (Late st Contact Info) Description 04/20/2018 Transcribed Document [facility] [place] [facility] [place] [address] ProviderMg MD [address] [place] [address] Social History Tobacco Use Types Packs/Day Years Used Date Smoking Tobacco: Never Assessed Sex and Gender Information Value Date Recorded Sex Assigned at Not on file Legal Sex Male 1:09 PM CDT Gender Identity Not on file Sexual Orientation Not on file documented as of this encounter Miscellaneous Notes * Cerner Conversion Note - Mg ProviderMD - 04/20/2018 1:34 PM BUSINESS UNIT MANAGER [place] [address] , [place] [address] Patient Copy Patient Information: Name: JOSE PEARSON Current Date: 04/20/2018 13:34:22 : 1970 Patient Address: [address] [place] [id number] Patient Attending Physician: Primary Care Provider: HUMA YARBROUGH (REF)MD-INT Primary Care Provider Discharge Diagnosis: Cardiac rhythm disturbance; Hypotension; Scalp contusion; Syncope Weight on Admission: 229 lb, 0 oz Weight at Discharge: 229 lb, 7 oz Comment: Follow-up Instructions: With: Address: When: JONATAN ISABEL [address] [place] [address] [address] [place] [address] Business (1) In 17 days 05/07/2018 Comments: Office to call with appoint/instructions or you may need to call if you have not heard from them With: Address: When: KIM EDOUARD 1:45 PM Comments: follow for thyroid as we discussed. you have the appropriate address With: Address: When: SO Storm [address] [place], [place] [id number] Business (1) Within 2 weeks Discharge Instructions: Diet after Discharge: Heart healthy diet Activity after Discharge: As tolerated Showering/Bathing: May shower Immunizations Documented During Stay: No Immunizations Found Heart Failure Discharge Instructions (if any): Stroke Related Discharge Instructions (if any): Warfarin Related Discharge Instructions (if any): Final Medication List: [facility] [address] [place], [place] [id number], [phone] dofetilide (Tikosyn 250 mcg oral capsule) 2 [...] nasal (fluticasone 50 mcg/inh nasal spray) 1 [place](s) Nostrils Both Every Day. furosemide (Lasix 40 [...] quickly after you eat. Medicines ??? Take qaeg-uvz-hobhuam and prescription medicines only as told by [...] 05/17/2010 Document Revised: 11/08/2016 Document Reviewed: 11/08/2016 ElseAggios Interactive Patient Education ? 2017 Elsevier Inc. [...] This can help with dizziness. ??? Take usvn-fjl-pvzsqas and prescription medicines only as told by [...] right away. Call your local emergency services (081 in the [place].S[place] Do not drive yourself [...] may report side effects to FDA at 1-988-ISG-1143. What other drugs will affect dofetilide? Other drugs may interact with dofetilide, including prescription and fidc-dtv-xqfmftf medicines, vitamins, and herbal products. Tell each [...] to ensure that the information provided by Pricefalls. ('Multum') is accurate, up-to-date, and complete, but no guarantee is made to that effect. Drug information contained herein may be time sensitive. Lulu information has been compiled for use by healthcare practitioners and consumers in the [place] and therefore Lulu does not warrant that uses outside of the [place] are appropriate, unless specifically indicated otherwise. Lulu's drug information does not endorse drugs, diagnose patients or recommend therapy. Lewis Tank Transports drug information is an informational resource designed [...] effective or appropriate for any given patient. [facility] does not assume any responsibility for any aspect of healthcare administered with the aid of information [facility] provides. The information contained herein is not intended to cover all possible uses, directions, precautions, warnings, drug interactions, allergic reactions, or adverse effects. If you have questions about the drugs you are taking, check with your doctor, nurse or pharmacist. Copyright 1977-1198 [facility] Hospital[facility] PeripheralsSupersolid. Version: 4.01. Revision Date: 06/17/2015. CIGARETTE SMOKING: The facts are clear, cigarette smoking will shorten your life. Smoking can cause many illnesses along the way. As a healthcare provider, we recommend that you stop smoking. Assistance with quitting is available by contacting 3-431-HEAR-NOW. This is a free resource providing counseling, [...] Be sure to sign up for the NutshellMail patient portal, which gives you 26/09 access to your medical information ??? including these discharge instructions ??? using your computer, smartphone, or tablet. Just go to Sayah to get started. Questions? Call . [facility] would like to thank you for allowing us to assist you with your healthcare needs. ANASTASIA Rich DENNIS PAUL, (or petroleum products sales representative) have received the above patient education materials/instructions and have verbalized understanding: Patient Signature _ Date/Time Patient Spindle Setter Signature (if needed) Date/Time Clinician/Hospital Spindle Setter Signature (if needed) Date/Time documented in this encounter Plan of Treatment Not on file documented as of this encounter Visit Diagnoses Not on filedocumented in this encounter
--- OUTSIDE RECORDS SUMMARY | 2025-02-19 16:00 | XMS_ITS | Encounter Summary ---
Author Organization [employer] ([place], [place], [place], [place], [place]) Address [address] [place] [address] Care Team Providers Care Dump Worker Name Role Phone Unavailable Primary Care Provider Unavailabl e Encounter Details Date Type Department Care Team (Late st Contact Info) Description 04/20/2018 Transcribed Document [facility] [place] Family Medicine [facility] [place] [address] ProviderMg MD [facility] [place] [address] Social History Tobacco Use Types Packs/Day Years Used Date Smoking Tobacco: Never Assessed Sex and Gender Information Value Date Recorded Sex Assigned at Not on file Legal Sex Male 1:09 PM CDT Gender Identity Not on file Sexual Orientation Not on file documented as of this encounter Miscellaneous Notes * Cerner Conversion Note - Mg ProviderMD - 04/20/2018 9:41 AM CASINO GAMING INSPECTOR Care Management Assessment/Plan Entered On: 04/20/2018 9:42 EST Performed On: 04/20/2018 9:41 EST by Breann Ordaz RN Care Management Note Anticipated Discharge Date : 04/17/2018 21:00 EST Care Management Note : Anticipated discharge today, home plan, follow up with endocrinology arranged...[facility] [place] Care Management Note Report : Breann Ordaz RN - 04/19/18 10:48:25 Home plan at discharge when medically cleared, follow up appoinment placed in discharge form...Breann Beebe RN - 04/18/18 14:23:07 Jim Sanchez set up appointment with [facility] endocrinology, CM cancelled Martin's appointment and faxed patient information over to [phone]...Breann Beebe RN - 04/18/18 10:02:59 CAREY spoke with Rianna charge coordinator at [facility]'s office, fax [phone]. Patient's requested date for start of care is in 2 weeks but marble chip terrazzo worker as scheduling out for 2-3 months. Patient is on the cancellation list at Dr. Salazar's with a July appointment time. Information sent to above fax, appointment time placed in discharge form...Breann Beebe RN - 04/17/18 13:45:24 Per provider notes, patient scheduled for a DCCV today 04/17/18. Bosler to stop all alcohol use. Thyroid work [...] . Home plan at discharge, no needs noted...[facility] [place] Documentation Status Complete : Yes Breann Ordaz, RN - 04/20/2018 9:41 EST Electronically signed by Jackie [facility] Conversion Web Application Tester Cerner at 06/19/2022 11:00 PM CDT documented in this encounter Plan of Treatment Not on file documented as of this encounter Visit Diagnoses Not on filedocumented in this encounter
--- OUTSIDE RECORDS SUMMARY | 2025-02-19 16:00 | XMS_ITS | Encounter Summary ---
Author Organization [employer] ([place], [place], [place], [place], [place]) Address [address] [place] [address] Care Team Providers Care Testing Projects Administrator Name Role Phone Unavailable Primary Care Provider Unavailabl e Encounter Details Date Type Department Care Team (Late st Contact Info) Description 04/20/2018 Transcribed Document [facility] [place] [address] [place] [address] ProviderMg MD [address] [place] [address] Social History Tobacco Use Types Packs/Day Years Used Date Smoking Tobacco: Never Assessed Sex and Gender Information Value Date Recorded Sex Assigned at Not on file Legal Sex Male 1:09 PM CDT Gender Identity Not on file Sexual Orientation Not on file documented as of this encounter Miscellaneous Notes * Cerner Conversion Note - Mg ProviderMD - 04/20/2018 1:08 PM BONBON CREAM WARMER Patient Education Materials Follows:Medicine Hypotension As your [...] quickly after you eat. Medicines ??? Take tegg-hjm-knivuis and prescription medicines only as told by [...] 11/08/2016 Elsevier Interactive Patient Education ? 2017 ElseU4EA Networks Inc. Neurology Syncope Introduction Syncope is when [...] This can help with dizziness. ??? Take dhhz-gjk-mdrnetd and prescription medicines only as told by [...]
--- OUTSIDE RECORDS SUMMARY | 2025-02-19 16:00 | XMS_ITS | Encounter Summary ---
Author Organization [employer] ([place], [place], [place], [place], [place]) Address [address] [place] [address] Care Team Providers Care Line Worker Name Role Phone Unavailable Primary Care Provider Unavailabl e Encounter Details Date Type Department Care Team (Late st Contact Info) Description 04/20/2018 Transcribed Document [facility] [place] [facility] [place] [address] ProviderMg MD [address] [place] [address] Social History Tobacco Use Types Packs/Day Years Used Date Smoking Tobacco: Never Assessed Sex and Gender Information Value Date Recorded Sex Assigned at Not on file Legal Sex Male 1:09 PM CDT Gender Identity Not on file Sexual Orientation Not on file documented as of this encounter Miscellaneous Notes * Cerner Conversion Note - Mg ProviderMD - 04/20/2018 1:08 PM ESCROW CLOSER [place] [address] [address] [facility] [place] [address] Patient Copy Patient Information: Name: JOSE PEARSON Current Date: 04/20/2018 13:08:13 : 1970 Patient Address: [address] [place] [phone] Patient Attending Physician: Primary Care Provider: HUMA YARBROUGH (REF)MD-INT Primary Care Provider Discharge Diagnosis: Cardiac rhythm disturbance; Hypotension; Scalp contusion; Syncope Weight on Admission: 229 lb, 0 oz Weight at Discharge: 229 lb, 7 oz Comment: Follow-up Instructions: With: Address: When: JONATAN ISABEL [address] [place] [address] [address] [place] [address] Business (1) In 17 days 05/07/2018 Comments: Office to call with appoint/instructions or you may need to call if you have not heard from them With: Address: When: KIM EDOUARD 1:45 PM Comments: follow for thyroid as we discussed. you have the appropriate address With: Address: When: SO [address] [place], [place] [phone] Business (1) Within 2 weeks Discharge Instructions: Diet after Discharge: Heart healthy diet Activity after Discharge: As tolerated Showering/Bathing: May shower Immunizations Documented During Stay: No Immunizations Found Heart Failure Discharge Instructions (if any): Stroke Related Discharge Instructions (if any): Warfarin Related Discharge Instructions (if any): Final Medication List: [facility] [address] [place], [place] [id number], [phone] dofetilide (Tikosyn 250 mcg oral capsule) 2 [...] nasal (fluticasone 50 mcg/inh nasal spray) 1 [place](s) Nostrils Both Every Day. furosemide (Lasix 40 [...] quickly after you eat. Medicines ??? Take uxgx-qda-lkkqxhi and prescription medicines only as told by [...] 05/17/2010 Document Revised: 11/08/2016 Document Reviewed: 11/08/2016 ElseMVB Bank, Interactive Patient Education ? 2017 Elsevier Inc. [...] This can help with dizziness. ??? Take bihz-han-zfigpzg and prescription medicines only as told by [...] right away. Call your local emergency services (011 in the [place].S[place] Do not drive yourself [...] may report side effects to FDA at 3-864-FCP-0228. What other drugs will affect dofetilide? Other drugs may interact with dofetilide, including prescription and xtuh-hom-fblxrzp medicines, vitamins, and herbal products. Tell each [...] to ensure that the information provided by Fraud Sciences. ('Multum') is accurate, up-to-date, and complete, but no guarantee is made to that effect. Drug information contained herein may be time sensitive. MENA OPPORTUNITIES information has been compiled for use by healthcare practitioners and consumers in the [place] and therefore MENA OPPORTUNITIES does not warrant that uses outside of the [place] are appropriate, unless specifically indicated otherwise. MENA OPPORTUNITIES's drug information does not endorse drugs, diagnose patients or recommend therapy. Ellis drug information is an informational resource designed [...] effective or appropriate for any given patient. [facility] does not assume any responsibility for any aspect of healthcare administered with the aid of information [facility] provides. The information contained herein is not intended to cover all possible uses, directions, precautions, warnings, drug interactions, allergic reactions, or adverse effects. If you have questions about the drugs you are taking, check with your doctor, nurse or pharmacist. Copyright 9614-5449 aPriori TechnologiesR[facility] Falls Area HospitalCollectaSiva Power. Version: 4.01. Revision Date: 06/17/2015. CIGARETTE SMOKING: The facts are clear, cigarette smoking will shorten your life. Smoking can cause many illnesses along the way. As a healthcare provider, we recommend that you stop smoking. Assistance with quitting is available by contacting 8-377-VDUO-NOW. This is a free resource providing counseling, [...] Be sure to sign up for the Validus Technologies Corporation patient portal, which gives you 26/09 access to your medical information ??? including these discharge instructions ??? using your computer, smartphone, or tablet. Just go to UP Online to get started. Questions? Call . [facility] would like to thank you for allowing us to assist you with your healthcare needs. ANASTASIA Rich DENNIS PAUL, (or credit resolution representative) have received the above patient education materials/instructions and have verbalized understanding: Patient Signature _ Date/Time Patient Talent Buyer Signature (if needed) Date/Time Clinician/Hospital Talent Buyer Signature (if needed) Date/Time documented in this encounter Plan of Treatment Not on file documented as of this encounter Visit Diagnoses Not on filedocumented in this encounter
--- OUTSIDE RECORDS SUMMARY | 2025-02-19 16:00 | XMS_ITS | Encounter Summary ---
Author Organization [employer] ([place], [place], [place], [place], [place]) Address [address] [place] [address] Care Team Providers Care Manager Lab Name Role Phone Unavailable Primary Care Provider Unavailabl e Encounter Details Date Type Department Care Team (Late st Contact Info) Description 04/19/2018 Transcribed Document [facility] [place] [facility] [place] [address] ProviderMg MD [facility] [place] [address] Social History Tobacco Use Types Packs/Day Years Used Date Smoking Tobacco: Never Assessed Sex and Gender Information Value Date Recorded Sex Assigned at Not on file Legal Sex Male 1:09 PM CDT Gender Identity Not on file Sexual Orientation Not on file documented as of this encounter Miscellaneous Notes * Cerner Conversion Note - Mg Ritchie MD - 04/19/2018 3:53 PM ELECTRONIC DESIGN ENGINEER DATE OF STUDY: 04/17/2018 SYNCHRONOUS DC CARDIOVERSION [...] Leydi Hobbs M.D. Electronically signed by Jackie [facility] Conversion Dairy Husbandry Teacher Cerner at 06/19/2022 11:14 PM CDT documented in this encounter Plan of Treatment Not on file documented as of this encounter Visit Diagnoses Not on filedocumented in this encounter
--- OUTSIDE RECORDS SUMMARY | 2025-02-19 16:00 | XMS_ITS | Encounter Summary ---
Author Organization [employer] ([place], [place], [place], [place], [place]) Address [address] [place] [address] Care Team Providers Care Power Plant Operator Name Role Phone Unavailable Primary Care Provider Unavailabl e Encounter Details Date Type Department Care Team (Late st Contact Info) Description 03/29/2018 Transcribed Document [facility] [place] Family Medicine [address] [place] [address] ProviderMg MD [facility] [place], [place] [address] Social History Tobacco Use Types Packs/Day Years Used Date Smoking Tobacco: Never Assessed Sex and Gender Information Value Date Recorded Sex Assigned at Not on file Legal Sex Male 1:09 PM CDT Gender Identity Not on file Sexual Orientation Not on file documented as of this encounter Miscellaneous Notes * Cerner Conversion Note - Historical ProviderMD - 03/29/2018 10:28 AM CONCRETE ENGINEER Therapy Screen, PT Entered On: 03/29/2018 10:37 [...]
--- OUTSIDE RECORDS SUMMARY | 2025-02-19 16:00 | XMS_ITS | Encounter Summary ---
Author Organization [employer] ([place], [place], [place], [place], [place]) Address [address] [place] [address] Care Team Providers Care Director Pharmaceutical Name Role Phone Unavailable Primary Care Provider Unavailabl e Encounter Details Date Type Department Care Team (Late st Contact Info) Description 04/20/2018 Transcribed Document [facility] [place] [facility] [place] [address] ProviderMg MD [facility] [place], [place] [address] Social History Tobacco Use Types Packs/Day Years Used Date Smoking Tobacco: Never Assessed Sex and Gender Information Value Date Recorded Sex Assigned at Not on file Legal Sex Male 1:09 PM CDT Gender Identity Not on file Sexual Orientation Not on file documented as of this encounter Miscellaneous Notes * Cerner Conversion Note - Historical ProviderMD - 04/20/2018 5:00 AM SITE MONITOR Height and Weight, Routine Entered On: 04/20/2018 6:00 EST Performed On: 04/20/2018 5:00 EST by Polly Renteria Care [facility] Unit Coord Height and Weight, Routine Routine Weight Source : Standing scale Routine Weight Entry Format : [place] Routine Weight, Pounds : 229 lb Routine Weight, Ounces : 7 oz Routine Weight Calculation : 104.29 kg Height Source : Stated Height Entry Format : [place] Height, Feet : 6 ft Height, Inches : 0 Inch Clinical Height : 182.88 cm Body Surface Area (BSA), Routine : 2.26 m2 Body Mass Index (BMI), Routine : 31.18 kg/m2 [facility] Rent[facility] - 04/20/2018 6:00 EST documented in this encounter Plan of Treatment Not on file documented as of this encounter Visit Diagnoses Not on filedocumented in this encounter
--- OUTSIDE RECORDS SUMMARY | 2025-02-19 16:00 | XMS_ITS | Encounter Summary ---
Author Organization [employer] ([place], [place], [place], [place], [place]) Address [address] [place] [address] Care Team Providers Care Molecular Pathologist Name Role Phone Unavailable Primary Care Provider Unavailabl e Encounter Details Date Type Department Care Team (Late st Contact Info) Description 04/20/2018 Transcribed Document [facility] [place] [facility] [place] [address] ProviderMg MD [facility] [place] [address] Social History Tobacco Use Types Packs/Day Years Used Date Smoking Tobacco: Never Assessed Sex and Gender Information Value Date Recorded Sex Assigned at Not on file Legal Sex Male 1:09 PM CDT Gender Identity Not on file Sexual Orientation Not on file documented as of this encounter Miscellaneous Notes * Cerner Conversion Note - Mg ProviderMD - 04/20/2018 10:33 AM CEMETERY MANAGER Patient: JOSE PEARSON Age: 47 years Sex: [...] Gastrointestinal: Normal bowel sounds. Integumentary: Warm, Dry, [place]. Results Review General results HYROID ULTRASOUND HISTORY: [...] hyperthyroid Electronically signed by Morales Mejia Conversion Physical Education Instructor Cerner at 06/19/2022 10:58 PM CDT documented in this encounter Plan of Treatment Not on file documented as of this encounter Visit Diagnoses Not on filedocumented in this encounter
--- OUTSIDE RECORDS SUMMARY | 2025-02-19 16:00 | XMS_ITS | Encounter Summary ---
Author Organization [employer] ([place], [place], [place], [place], [place]) Address [address] [place] [address] Care Team Providers Care Can Dryer Name Role Phone Unavailable Primary Care Provider Unavailabl e Encounter Details Date Type Department Care Team (Late st Contact Info) Description 04/18/2018 Transcribed Document [facility] [place] Family Medicine [facility] [place] [address] ProviderMg MD [address] [place] [address] Social History Tobacco Use Types Packs/Day Years Used Date Smoking Tobacco: Never Assessed Sex and Gender Information Value Date Recorded Sex Assigned at Not on file Legal Sex Male 1:09 PM CDT Gender Identity Not on file Sexual Orientation Not on file documented as of this encounter Miscellaneous Notes * Cerner Conversion Note - Mg ProviderMD - 04/18/2018 9:58 AM NUCLEAR PLANT OPERATOR [address] , [place] [id number] Patient Copy Patient Information: Name: JOSE PEARSON Current Date: 04/18/2018 09:58:44 : 1970 Patient [address]: [address] [place] [id number] Patient Attending Physician: KATY FRIAS MD-CAR Primary Care Provider: HUMA YARBROUGH (REF)MD-VENKAT Primary Care Provider Discharge Diagnosis: Cardiac rhythm disturbance; Hypotension; Scalp contusion; Syncope Weight on Admission: 229 lb, 0 oz Weight at Discharge: 229 lb, 2 oz Comment: Follow-up Instructions: With: Address: When: FRANK COREAS [facility] [address] , [address] [place] [address] Business (1) 2:00 PM Comments: Appointment has [...] nasal (fluticasone 50 mcg/inh nasal spray) 1 [place](s) Nostrils Both Every Day. furosemide (Lasix 40 [...] may report side effects to FDA at 2-233-QNO-6149. What other drugs will affect dofetilide? Other drugs may interact with dofetilide, including prescription and babz-kzw-twpelvk medicines, vitamins, and herbal products. Tell each [...] to ensure that the information provided by [employer]. ('[employer]') is accurate, up-to-date, and complete, but no guarantee is made to that effect. Drug information contained herein may be time sensitive. [employer] information has been compiled for use by healthcare practitioners and consumers in the [place] and therefore [employer] does not warrant that uses outside of the [place] are appropriate, unless specifically indicated otherwise. [employer]'s drug information does not endorse drugs, diagnose patients or recommend therapy. [employer] drug information is an informational resource designed [...] effective or appropriate for any given patient. [employer] does not assume any responsibility for any aspect of healthcare administered with the aid of information [employer] provides. The information contained herein is not intended to cover all possible uses, directions, precautions, warnings, drug interactions, allergic reactions, or adverse effects. If you have questions about the drugs you are taking, check with your doctor, nurse or pharmacist. Copyright 3877-1568 [employer]. Version: 4.01. Revision Date: 06/17/2015. CIGARETTE SMOKING: The facts are clear, cigarette smoking will shorten your life. Smoking can cause many illnesses along the way. As a healthcare provider, we recommend that you stop smoking. Assistance with quitting is available by contacting 3-323-NAUV-NOW. This is a free resource providing counseling, [...] Be sure to sign up for the [facility] patient portal, which gives you 26/09 access to your medical information ??? including these discharge instructions ??? using your computer, smartphone, or tablet. Just go to Hydrostor to get started. Questions? Call . [facility] would like to thank you for allowing us to assist you with your healthcare needs. ANASTASIA Rich DENNIS PAUL, (or inventory representative) have received the above patient education materials/instructions and have verbalized understanding: Patient Signature _ Date/Time Patient Human Services Program Specialist Signature (if needed) Date/Time Clinician/Hospital Human Services Program Specialist Signature (if needed) Date/Time Electronically signed by Jackie, [facility] Conversion Hair Or Beauty Salon Manager Cerner at 06/19/2022 11:14 PM CDT documented in this encounter Plan of Treatment Not on file documented as of this encounter Visit Diagnoses Not on filedocumented in this encounter
--- OUTSIDE RECORDS SUMMARY | 2025-02-19 16:00 | XMS_ITS | Encounter Summary ---
Author Organization [facility] ([place], [place], [place], [place], [place]) Address [address] [place] [address] Care Team Providers Care Sap Portal Architect Name Role Phone Unavailable Primary Care Provider Unavailabl e Encounter Details Date Type Department Care Team (Late st Contact Info) Description 04/23/2018 Transcribed Document [facility] [place] [facility] [place] [address] ProviderMg [place] [facility] [place] [address] Social History Tobacco Use Types Packs/Day Years Used Date Smoking Tobacco: Never Assessed Sex and Gender Information Value Date Recorded Sex Assigned at Not on file Legal Sex Male 1:09 PM CDT Gender Identity Not on file Sexual Orientation Not on file documented as of this encounter Miscellaneous Notes * Cerner Conversion Note - Historical ProviderMD - 04/23/2018 11:02 AM MOLD MAINTENANCE TECHNICIAN Cardiac and Pulmonary Outpatient [place] Entered On: 04/23/2018 11:03 EST Performed On: 04/23/2018 11:02 EST by EDITH CHAVIS RN Cardiac and Pulmonary Outpatient [facility] Phase 2 Cardiac Rehab Criteria Met : Heart failure (HF) Cardiac Outpatient Rehab Evaluation Comment : Order faxed to [facility] due to pts location. EDITH CHAVIS RN - 04/23/2018 11:02 EST documented in this encounter Plan of Treatment Not on file documented as of this encounter Visit Diagnoses Not on filedocumented in this encounter
--- OUTSIDE RECORDS SUMMARY | 2025-02-19 16:01 | XMS_ITS | Encounter Summary ---
Author Organization [employer] ([place], [place], [place], [place], [place]) Address [address] [place] [address] Care Team Providers Care Transformer Shop Supervisor Name Role Phone Unavailable Primary Care Provider Unavailabl e Encounter Details Date Type Department Care Team (Late st Contact Info) Description 06/26/2018 Transcribed Document [facility] [place] [facility] [place] [address] ProviderMg MD [facility] [place], [place] [address] Social History Tobacco Use Types Packs/Day Years [...] Nancy Loyola Rn - 06/26/2018 14:34 EDT documented in this encounter Plan of Treatment Not on file documented as of this encounter Visit Diagnoses Not on filedocumented in this encounter
--- OUTSIDE RECORDS SUMMARY | 2025-02-19 16:01 | XMS_ITS | Encounter Summary ---
Author Organization [employer] ([place], [place], [place], [place], [place]) Address [address] [place] [address] Care Team Providers Care Business Support Liaison Name Role Phone Unavailable Primary Care Provider Unavailabl e Encounter Details Date Type Department Care Team (Late st Contact Info) Description 06/26/2018 Transcribed Document [facility] [place] [address] [place] [address] ProviderMg MD [facility] [place], [place] [address] Social History Tobacco Use Types Packs/Day Years [...]
--- OUTSIDE RECORDS SUMMARY | 2025-02-19 16:01 | XMS_ITS | Encounter Summary ---
Author Organization [employer] ([place], [place], [place], [place], [place]) Address [address] [place] [address] Care Team Providers Care Associate Biological Sales Name Role Phone Unavailable Primary Care Provider Unavailabl e Encounter Details Date Type Department Care Team (Late st Contact Info) Description 06/25/2018 Transcribed Document [facility] [place] [address] Provider[place] [address] Social History Tobacco Use Types [...] Source : Stated Height Entry Format : [place] Height, Feet : 6 ft(Converted to: 183 cm, 72 Inch) Height, Inches : 0 Inch(Converted to: 0 ft 0 Inch, 0.00 cm) Clinical Height : 182.88 cm Weight Source : Standing scale Weight Entry Format : [place] Clinical Dosing Weight : 106.36 kg Weight, Pounds : 234 lb Body Surface Area (BSA) : 2.28 m2 Body Mass Index : 31.8 kg/m2 (HI) Pratt Body Weight : 77 kg YOEL SANTANA [...] EDT Legal Guardian : Spouse Support Person/Patient Livestock Producer : Yes Support Person/Pt Rep Name : Deidre Pearson-- Support Person/Pt Rep Contact Information : [phone] Want Family/Rep/Phys Notified of Admit : No Emergency Contact #1 : Deidre Pearson Emergency Contact #1 Emergency Contact #1 Relationship : Emergency Contact #2 : na Emergency Contact #2 Phone Number : na Emergency Contact #2 Relationship : na Chief Complaint : ep/ablation Information Obtained From : Patient, Spouse Primary Language : French Preferred Communication Mode : Verbal Communication Barrier [...] : No English Secondary Diagnosis : No ENGLSIH Use of Ambulatory Aid : None ENGLISH IV Therapy or IV Access : Yes English Gait/Transferring : Normal, bedrest, immobile English Mental Status : Oriented to own ability English Fall Risk Score : 20 ENGLISH Fall Scale Risk Level : 0-24 Low Risk Liebenthal Fall Interventions : Adequate lighting, Assistive devices [...]
--- OUTSIDE RECORDS SUMMARY | 2025-02-19 16:01 | XMS_ITS | Encounter Summary ---
Author Organization [employer] ([place], [place], [place], [place], [place]) Address [address] [place] [address] Care Team Providers Care Inserter Name Role Phone Unavailable Primary Care Provider Unavailabl e Encounter Details Date Type Department Care Team (Late st Contact Info) Description 05/28/2018 Transcribed Document [facility] [place] [facility] [place] [address] ProviderMg MD [facility] [place] [address] Social History Tobacco Use Types [...] Ritchie MD - 05/28/2018 4:50 PM CDT [address] [address] Patient Copy Patient Information: Name: JOSE PEARSON Current Date: 05/28/2018 16:50:55 : 1970 Patient Address: [address] [place] [phone] Patient Attending Physician: JONATAN ISABEL MD-CAR Primary Care Provider: HUMA YARBROUGH (REF)JAYNE Primary Care Provider Discharge Diagnosis: Weight on Admission: 240 lb, 0 oz Comment: Follow-up Instructions: With: Address: [place]: JONATAN ISABEL [address] [facility] [address] [place] [address] Business (1) Comments: Call for [...] nasal (fluticasone 50 mcg/inh nasal spray) 1 [place](s) Nostrils Both Every Day. furosemide (Lasix 40 [...] Document Reviewed: 03/25/2011 ExitCare? Patient Information ?2014 [employer]. Cardiac Ablation Cardiac ablation is a procedure to stop some heart tissue from causing problems. The heart has many electrical connections. Sometimes these connections cause the heart to beat very fast or irregularly. Removing some of the problem areas can improve heart rhythm or make it normal. Ablation is done for people who: ??? Have Jgfdm-Qhugdozai-Rtnig syndrome. ??? Have other fast heart rhythms [...] 10/23/2013 Document Revised: 07/28/2016 Document Reviewed: 07/18/2013 [employer] Interactive Patient Education ? 2017 [employer] Moderate Conscious Sedation, Adult, Care After [...] you are awake and alert. ??? Take lqab-dlm-qolqgwc and prescription medicines only as told by [...] 12/11/2013 Document Revised: 07/25/2016 Document Reviewed: 06/11/2016 [employer] Interactive Patient Education ? 2017 [employer] CIGARETTE SMOKING: The facts are clear, cigarette smoking will shorten your life. Smoking can cause many illnesses along the way. As a healthcare provider, we recommend that you stop smoking. Assistance with quitting is available by contacting 1-452-NYRW-NOW. This is a free resource providing counseling, [...] Be sure to sign up for the [employer] patient portal, which gives you 26/09 access to your medical information ??? including these discharge instructions ??? using your computer, smartphone, or tablet. Just go to JumpTime to get started. Questions? Call . [facility] would like to thank you for allowing us to assist you with your healthcare needs. ANASTASIA Rich DENNIS PAUL, (or sales representative public utilities) have received the above patient education materials/instructions and have verbalized understanding: Patient Signature _ Date/Time Patient Camp [place] Signature (if needed) Date/Time Clinician/Hospital Camp Cook Signature (if needed) Date/Time Electronically signed by Interface, [facility] Conversion Buckshot Swage Operator Cerner at 06/19/2022 10:50 PM CDT documented in this encounter Plan of Treatment Not on file documented as of this encounter Visit Diagnoses Not on filedocumented in this encounter
--- OUTSIDE RECORDS SUMMARY | 2025-02-19 16:01 | XMS_ITS | Encounter Summary ---
Author Organization [employer] ([place], [place], [place], [place], [place]) Address [address] [place] [address] Care Team Providers Care Supervisor Powder And Primer Canning Name Role Phone Unavailable Primary Care Provider Unavailabl e Encounter Details Date Type Department Care Team (Late st Contact Info) Description 06/26/2018 Transcribed Document [facility] [place] [address] [place] [address] ProviderMg MD [address] [place] [address] Social History Tobacco Use Types Packs/Day Years Used Date Smoking Tobacco: Never Assessed Sex and Gender Information Value Date Recorded Sex Assigned at Not on file Legal Sex Male 1:09 PM CDT Gender Identity Not on file Sexual Orientation Not on file documented as of this encounter Miscellaneous Notes * Cerner Conversion Note - Mg iRtchie MD - 06/26/2018 2:[address] [facility] [place] [address] JOSE PEARSON :1970 Visit Time:06/25/2018 Your [...] you need assistance finding a PCP call [phone] Follow Up with JONATAN DAVIS MD-CAR When Within 2 to 4 weeks Comments Please call to make a 2-4 week follow-up appointment. Where: [phone] [address]- Medications What How Much When Instructions Next [...] (fluticasone 50 mcg/ inh nasal spray) 1 [place]aph[place](s) Nostrils Both Every Day Unchanged furosemide (Lasix [...] Follow these instructions at home: ??? Take uevx-ara-cyrtjvl and prescription medicines only as told by [...] including vitamins, herbs, eye drops, creams, and ogpl-gqj-plrfsvo medicines. ??? Any problems you or family [...] 08/10/2010 Document Revised: 09/23/2016 Document Reviewed: 08/29/2016 [employer] Interactive Interactive Patient Education ?? 2017 [employer]. Emergency Awareness and Preventative Care STROKE is [...] Assistance with quitting is available by contacting 9-307-JHGP-NOW. This is a free resource providing counseling, [...] Be sure to sign up for the [facility] patient portal, which gives you 26/09 access to your medical information ??? including these discharge instructions ??? using your computer, smartphone, or tablet. Just go to [facility] [email or web address] to get started. Questions? Call . Test [...] range between ( 0.0 and 7.0 ) Nash #: 1.01 K/uL -- Normal range between ( 0.16 and 1.00 ) Eos #: 0.29 x10(3)/uL -- Normal range between ( 0.00 and 0.80 ) Nash %: 12.1 % -- Normal range between [...] was given the opportunity to ask questions. Patient/Risk Developer Name: Patient/Risk Developer Signature: Relationship to Patient: Clinician/Hospital Risk Developer Signature: Date: documented in this encounter Plan of Treatment Not on file documented as of this encounter Visit Diagnoses Not on filedocumented in this encounter
--- OUTSIDE RECORDS SUMMARY | 2025-02-19 16:01 | XMS_ITS | Encounter Summary ---
Author Organization [employer] ([place], [place], [place], [place], [place]) Address [address] [place] [address] Care Team Providers Care Cv Rn Name Role Phone Unavailable Primary Care Provider Unavailabl e Encounter Details Date Type Department Care Team (Late st Contact Info) Description 06/26/2018 Transcribed Document [facility] Radiology [address] [place] [address] Judy Perry MD [facility] [address] [address] Social History Tobacco Use Types [...] is a 48 yo male admitted to [facility] per Dr. Davis for a cardiac ablation. [...] see supporting data below *Scribed by Vannessa [facility] Status Allergies: Allergic Reactions (Selected) No [...] 50 mcg/inh nasal spray: 50 mcg, 1 [place], Nostrils Both, Daily hydrALAZINE: 10 mg, IV [...] Refill(s) fluticasone 50 mcg/inh nasal spray: 1 [place], Nostrils Both, Daily, 0 Refill(s) montelukast 10 [...] fluticasone 0.05% nasal spray 50 mcg 1 [place], Nostrils Both, Daily furosemide 40 mg tab [...] Problem list: Medical angina / SNOMED CT 407103123 / Confirmed At risk for sleep apnea / IMO [id number] / Confirmed cardiac defibulator / Confirmed interrogated at physicians office---02/22/13 pacemaker / SNOMED CT 8010476987 / Confirmed stroke / SNOMED CT 462833078 / Confirmed he had a stroke when they found the blood clot in valve History of obstructive sleep apnea / IMO 00088617 / Confirmed high cholesterol / SNOMED CT 40833767 / Confirmed hypertension / SNOMED CT 5176177623 / Confirmed myocardial infarction / SNOMED CT 61913175 / Confirmed sesonal allergies / Confirmed Resolved: [...]
--- OUTSIDE RECORDS SUMMARY | 2025-02-19 16:01 | XMS_ITS | Encounter Summary ---
Author Organization [employer] ([place], [place], [place], [place], [place]) Address [address] [place] [address] Care Team Providers Care Vice President Quality Improvement Name Role Phone Unavailable Primary Care Provider Unavailabl e Encounter Details Date Type Department Care Team (Late st Contact Info) Description 06/25/2018 Transcribed Document [facility] [place] [facility] [place] [address] ProviderMg MD [facility] [place], [place] [address] Social History Tobacco Use Types Packs/Day Years [...] Event : Report to Rimma CONROY 3 [facility] ANUSHA YATES RN - 06/25/2018 21:42 EDT documented in this encounter Plan of Treatment Not on file documented as of this encounter Visit Diagnoses Not on filedocumented in this encounter
--- OUTSIDE RECORDS SUMMARY | 2025-02-19 16:01 | XMS_ITS | Encounter Summary ---
Author Organization [employer] ([place], [place], [place], [place], [place]) Address [address] [place] [address] Care Team Providers Care Veterinarian Small Animal Name Role Phone Unavailable Primary Care Provider Unavailabl e Encounter Details Date Type Department Care Team (Late st Contact Info) Description 06/26/2018 Transcribed Document [facility] [place] [facility] [place] [address] ProviderMg MD [address] [place] [address] Social History Tobacco Use Types [...] Follow these instructions at home: ??? Take lebv-lgz-aikqapj and prescription medicines only as told by [...] including vitamins, herbs, eye drops, creams, and gong-hhh-oqivftb medicines. ??? Any problems you or family [...] 08/10/2010 Document Revised: 09/23/2016 Document Reviewed: 08/29/2016 [employer] Interactive Patient Education ? 2017 [employer] documented in this encounter Plan of Treatment Not on file documented as of this encounter Visit Diagnoses Not on filedocumented in this encounter
--- OUTSIDE RECORDS SUMMARY | 2025-02-19 16:01 | XMS_ITS | Encounter Summary ---
Author Organization [employer] ([place], [place], [place], [place], [place]) Address [address] [place] [address] Care Team Providers Care Mechanical Maintenance Engineer Name Role Phone Unavailable Primary Care Provider Unavailabl e Encounter Details Date Type Department Care Team (Late st Contact Info) Description 06/25/2018 Transcribed Document [facility] [address] [place] [address] Judy Perry MD [address] [address] Social History Tobacco Use Types [...] is a 48 yo male admitted to [facility] per Dr. Davis for a cardiac ablation. [...] Bedtime fluticasone 50 mcg/inh nasal spray 1 [place], Nostrils Both, Daily Lasix 40 mg oral [...] see supporting data below *Scribed by Vannessa DaviesUniversity [facility]als [facility] Status Allergies: Allergic Reactions (Selected) No Known [...] Refill(s) fluticasone 50 mcg/inh nasal spray: 1 [place], Nostrils Both, Daily, 0 Refill(s) montelukast 10 mg oral tablet: 1 Tab, Oral, Daily, 0 Refill(s) pravastatin 80 mg oral tablet: 1 Tab, Oral, At Bedtime, 0 Refill(s) spironolactone: 25 mg, Oral, Daily, 0 Refill(s), Medications (1) Active Scheduled: (1) diazepam 5 mg tab 5 mg 1 Tab, Oral, 1-Time Continuous: (0) PRN: (0) Problem list: Medical angina / SNOMED CT 706887481 / Confirmed At risk for sleep apnea / IMO 36505410 / Confirmed cardiac defibulator / Confirmed interrogated at physicians office---02/22/13 pacemaker / SNOMED CT 9719141064 / Confirmed stroke / SNOMED CT 779527515 / Confirmed he had a stroke when they found the blood clot in valve History of obstructive sleep apnea / IMO 53521893 / Confirmed high cholesterol / SNOMED CT 12092419 / Confirmed hypertension / SNOMED CT 1694545647 / Confirmed myocardial infarction / SNOMED CT 52987281 / Confirmed sesonal allergies / Confirmed, Active [...]
--- OUTSIDE RECORDS SUMMARY | 2025-02-19 16:01 | XMS_ITS | Encounter Summary ---
Author Organization [employer] ([place], [place], [place], [place], [place]) Address [address] [place] [address] Care Team Providers Care Buffing Wheel Inspector Name Role Phone Unavailable Primary Care Provider Unavailabl e Encounter Details Date Type Department Care Team (Late st Contact Info) Description 06/25/2018 Transcribed Document [facility] [place] [facility] [place] [address] ProviderMg MD [facility] [place] [address] Social History Tobacco Use Types [...] means of the modified Seldinger technique. A 5-Lithuanian sheath was placed in the right femoral artery and an 8-Lithuanian sheath in the right femoral vein. The [...] obtaining an adequate His cloud using the Theatro 3D mapping system, the ablation was commenced, [...]
--- OUTSIDE RECORDS SUMMARY | 2025-02-19 16:02 | XMS_ITS | Encounter Summary ---
Author Organization [employer] ([place], [place], [place], [place], [place]) Address [address] [place] [address] Care Team Providers Care Title Inspector Name Role Phone Unavailable Primary Care Provider Unavailabl e Encounter Details Date Type Department Care Team (Late st Contact Info) Description 05/28/2018 Transcribed Document [facility] [place] [facility] [place] [address] ProviderMg MD [facility] [place] [address] Social History Tobacco Use [...] Source : Stated Height Entry Format : Morris Height, Feet : 0 ft(Converted to: 0 cm, 0 Inch) Height, Inches : 72 Inch(Converted to: 6 ft 0 Inch, 182.88 cm) Clinical Height : 182.88 cm Weight Source : Standing scale Weight Entry Format : Morris Clinical Dosing Weight : 109.09 kg Weight, Pounds : 240 lb Body Surface Area (BSA) : 2.3 m2 Body Mass Index : 32.6 kg/m2 (HI) [place] Body Weight : 77 kg BRITTON [place]NE [...] 05/28/2018 10:25 EDT General Info Support Person/Patient Financial Administration Officer : Yes Support Person/Pt Rep Name : Deidre Pearson-- Support Person/Pt Rep Contact Information : [phone] Want Family/Rep/Phys Notified of Admit : No Emergency Contact #1 : Deidre- [phone] Emergency Contact #1 Phone Number : - Emergency Contact #1 Relationship : - Emergency Contact #2 : -- Emergency Contact #2 Phone Number : - Emergency Contact #2 Relationship : - Primary Language : South Korean Preferred Communication Mode : Verbal Communication Barrier [...] Scale Risk Level : 0-24 Low Risk [place] Fall Interventions : Wheels locked BRITTON OSBORNE [...]
--- OUTSIDE RECORDS SUMMARY | 2025-02-19 16:02 | XMS_ITS | Encounter Summary ---
Author Organization [employer] ([place], [place], [place], [place], [place]) Address [address] [place] [address] Care Team Providers Care Warehouse Processor Name Role Phone Unavailable Primary Care Provider Unavailabl e Encounter Details Date Type Department Care Team (Late st Contact Info) Description 05/28/2018 Transcribed Document [facility] [address] [place] [address] ProviderMg MD [facility] [place] [address] Social History Tobacco Use Types Packs/Day Years [...]
--- OUTSIDE RECORDS SUMMARY | 2025-02-19 16:02 | XMS_ITS | Encounter Summary ---
Author Organization [employer] ([place], [place], [place], [place], [place]) Address [address] [place] [address] Care Team Providers Care Supervisor Treating And Pumping Name Role Phone Unavailable Primary Care Provider Unavailabl e Encounter Details Date Type Department Care Team (Late st Contact Info) Description 04/24/2018 Transcribed Document [facility] [place] [facility] [place] [address] ProviderMg MD [facility] [place] [address] Social History Tobacco Use Types Packs/Day Years Used Date Smoking Tobacco: Never Assessed Sex and Gender Information Value Date Recorded Sex Assigned at Not on file Legal Sex Male 1:09 PM CDT Gender Identity Not on file Sexual Orientation Not on file documented as of this encounter Miscellaneous Notes * [employer] Conversion Note - Mg Ritchie MD - 04/24/2018 10:35 AM TERMINAL BLOCK ASSEMBLER Patient: JOSE PEARSON Age: 47 years Sex: [...] Refill(s) fluticasone 50 mcg/inh nasal spray: 1 [place], Nostrils Both, Daily, 0 Refill(s) montelukast 10 [...] Bedtime fluticasone 50 mcg/inh nasal spray 1 [place], Nostrils Both, Daily Lasix 40 mg oral [...] Problem list: Medical angina / SNOMED CT 342242828 / Confirmed At risk for sleep apnea / IMO 98331441 / Confirmed cardiac defibulator / Confirmed interrogated at physicians office---02/22/13 pacemaker / SNOMED CT 7616871822 / Confirmed stroke / SNOMED CT 644013649 / Confirmed he had a stroke when they found the blood clot in valve 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 / Confirmed treated with blood thinners History of obstructive sleep apnea / IMO 93222748 / Confirmed high cholesterol / SNOMED CT 58157389 / Confirmed hypertension / SNOMED CT 0177778132 / Confirmed myocardial infarction / SNOMED CT 34737905 / Confirmed sesonal allergies / Confirmed, Active [...] Gastrointestinal: Normal bowel sounds. Integumentary: Warm, Dry, [place]. Results Review General results HYROID ULTRASOUND HISTORY: [...]
--- OUTSIDE RECORDS SUMMARY | 2025-02-19 16:02 | XMS_ITS | Encounter Summary ---
Author Organization [employer] ([place], [place], [place], [place], [place]) Address [address] [place] [address] Care Team Providers Care Placement Interviewer Name Role Phone Unavailable Primary Care Provider Unavailabl e Encounter Details Date Type Department Care Team (Late st Contact Info) Description 05/28/2018 Transcribed Document [facility] [place] [facility] [address] [place] [address] ProviderMg MD [facility] [place] [address] Social History Tobacco Use Types Packs/Day Years [...]
--- OUTSIDE RECORDS SUMMARY | 2025-02-19 16:02 | XMS_ITS | Encounter Summary ---
Author Organization [employer] ([place], [place], [place], [place], [place]) Address [address] [place] [address] Care Team Providers Care Service Station Helper Name Role Phone Unavailable Primary Care Provider Stefan pond Encounter Details Date Type Department Care Team (Late st Contact Info) Description 04/15/2018 Transcribed Document [facility] [place] [facility] [place] [address] ProviderMg MD [facility] [place], [place] [address] Social History Tobacco Use Types Packs/Day Years Used Date Smoking Tobacco: Never Assessed Sex and Gender Information Value Date Recorded Sex Assigned at Not on file Legal Sex Male 1:09 PM CDT Gender Identity Not on file Sexual Orientation Not on file documented as of this encounter Miscellaneous Notes * [employer] Conversion Note - Historical ProviderMD - 04/15/2018 2:00 AM HOME AID Minute Clerk Details Entered On: 04/15/2018 6:48 EST Performed [...]
--- OUTSIDE RECORDS SUMMARY | 2025-02-19 16:02 | XMS_ITS | Encounter Summary ---
Author Organization [employer] ([place], [place], [place], [place], [place]) Address [address] [place] [address] Care Team Providers Care Mail Technician Name Role Phone Unavailable Primary Care Provider Unavailabl e Encounter Details Date Type Department Care Team (Late st Contact Info) Description 05/28/2018 Transcribed Document [facility] Family Medicine [facility] [place] [address] ProviderMg MD [facility] [place] [address] Social History Tobacco Use Types [...] Document Reviewed: 03/25/2011 ExitCare? Patient Information ?2013 [employer] Pharmacology Moderate Conscious Sedation, Adult, Care After [...] you are awake and alert. ??? Take lfwj-dkr-oqkugdz and prescription medicines only as told by [...] 12/11/2013 Document Revised: 07/25/2016 Document Reviewed: 06/11/2016 [employer] Interactive Patient Education ? 2017 [employer] Procedures Cardiac Ablation Cardiac ablation is a procedure to stop some heart tissue from causing problems. The heart has many electrical connections. Sometimes these connections cause the heart to beat very fast or irregularly. Removing some of the problem areas can improve heart rhythm or make it normal. Ablation is done for people who: ??? Have Umzsh-Wktykrvzt-Fttuc syndrome. ??? Have other fast heart rhythms [...] 10/23/2013 Document Revised: 07/28/2016 Document Reviewed: 07/18/2013 [employer] Interactive Patient Education ? 2017 [employer] documented in this encounter Plan of Treatment Not on file documented as of this encounter Visit Diagnoses Not on filedocumented in this encounter
--- OUTSIDE RECORDS SUMMARY | 2025-02-19 16:02 | XMS_ITS | Encounter Summary ---
Author Organization [employer] ([place], [place], [place], [place], [place]) Address [address] [place] [address] Care Team Providers Care Sales Enablement Specialist Name Role Phone Unavailable Primary Care Provider Unavailabl e Encounter Details Date Type Department Care Team (Late st Contact Info) Description 05/28/2018 Transcribed Document [facility] [place] [facility] [place] [address] ProviderMg MD [facility] [place] [address] Social History Tobacco Use Types [...] Ritchie MD - 05/28/2018 5:34 PM CDT [address] [address] Patient Copy Patient Information: Name: JOSE PEARSON Current Date: 05/28/2018 17:34:18 : 1970 Patient Address: [address] [place] [id number] Patient Attending Physician: JONATAN ISABEL MD-CAR Primary Care Provider: HUMA YARBROUGH (REF)JAYNE Primary Care Provider Discharge Diagnosis: Weight on Admission: 240 lb, 0 oz Comment: Follow-up Instructions: With: Address: [place]: JONATAN ISABEL [address] [facility] [address] [place] [address] Business (1) Comments: Call for [...] nasal (fluticasone 50 mcg/inh nasal spray) 1 [place](s) Nostrils Both Every Day. furosemide (Lasix 40 [...] Document Reviewed: 03/25/2011 ExitCare? Patient Information ?2014 [employer]. Cardiac Ablation Cardiac ablation is a procedure to stop some heart tissue from causing problems. The heart has many electrical connections. Sometimes these connections cause the heart to beat very fast or irregularly. Removing some of the problem areas can improve heart rhythm or make it normal. Ablation is done for people who: ??? Have Dvves-Ojiiiacuo-Lndtx syndrome. ??? Have other fast heart rhythms [...] 10/23/2013 Document Revised: 07/28/2016 Document Reviewed: 07/18/2013 [employer] Interactive Patient Education ? 2017 [employer] Moderate Conscious Sedation, Adult, Care After [...] you are awake and alert. ??? Take pdcm-zyv-feehogj and prescription medicines only as told by [...] 12/11/2013 Document Revised: 07/25/2016 Document Reviewed: 06/11/2016 [employer] Interactive Patient Education ? 2017 [employer] CIGARETTE SMOKING: The facts are clear, cigarette smoking will shorten your life. Smoking can cause many illnesses along the way. As a healthcare provider, we recommend that you stop smoking. Assistance with quitting is available by contacting 8-006-DVSP-NOW. This is a free resource providing counseling, [...] Be sure to sign up for the [employer] patient portal, which gives you 26/09 access to your medical information ??? including these discharge instructions ??? using your computer, smartphone, or tablet. Just go to [employer] to get started. Questions? Call . [facility] would like to thank you for allowing us to assist you with your healthcare needs. ANASTASIA Rich DENNIS PAUL, (or roofing sales representative) have received the above patient education materials/instructions and have verbalized understanding: Patient Signature _ Date/Time Patient Cook 3 Pastry Signature (if needed) Date/Time Clinician/Hospital Cook 3 Pastry Signature (if needed) Date/Time Electronically signed by Interface, [facility] Conversion International Account Representative [employer] at 06/19/2022 10:58 PM CDT documented in this encounter Plan of Treatment Not on file documented as of this encounter Visit Diagnoses Not on filedocumented in this encounter
--- OUTSIDE RECORDS SUMMARY | 2025-02-19 16:02 | XMS_ITS | Encounter Summary ---
Author Organization [employer] ([place], [place], [place], [place], [place]) Address [address] [place] [address] Care Team Providers Care Ripsaw Matcher Name Role Phone Unavailable Primary Care Provider Unavailabl e Encounter Details Date Type Department Care Team (Late st Contact Info) Description 05/28/2018 Transcribed Document [facility] [place] [facility] [place] [address] ProviderMg MD [address] [place] [address] Social History Tobacco Use Types Packs/Day Years Used Date Smoking Tobacco: Never Assessed Sex and Gender Information Value Date Recorded Sex Assigned at Not on file Legal Sex Male 1:09 PM CDT Gender Identity Not on file Sexual Orientation Not on file documented as of this encounter Miscellaneous Notes * [employer]ner Conversion Note - Mg Rtichie MD - 05/28/2018 4:14 PM CDT DATE [...] means of the modified Seldinger technique an 8-Burundian and a 6-Burundian sheath was introduced in right femoral vein. The 8-Burundian sheath was exchanged for a medium curve Agilis long sheath. The 6-Burundian sheath was used to place a deflectable [...] plan is to discharge him from the optical laboratory manager holding area following recovery from sedation, after [...]
--- OUTSIDE RECORDS SUMMARY | 2025-02-19 16:03 | XMS_ITS | Encounter Summary ---
Author Organization [employer] ([place], [place], [place], [place], [place]) Address [address] [place] [address] Care Team Providers Care Senior Grants Officer Name Role Phone Unavailable Primary Care Provider Unavailabl e Encounter Details Date Type Department Care Team (Late st Contact Info) Description 04/15/2018 Transcribed Document [facility] [place] [facility] [place] [address] ProviderMg MD [facility] [place] [id number] Social History Tobacco Use Types Packs/Day Years Used Date Smoking Tobacco: Never Assessed Sex and Gender Information Value Date Recorded Sex Assigned at Not on file Legal Sex Male 1:09 PM CDT Gender Identity Not on file Sexual Orientation Not on file documented as of this encounter Miscellaneous Notes * [employer]ner Conversion Note - Mg Ritchie MD - 04/15/2018 9:38 AM PUNCHBOARD STUFFER Patient: JOSE PEARSON Age: 47 years Sex: Male : 1970 Associated Diagnoses: None Author: KATY FRIAS MD-CAR Chief Complaint got shocked last night History of Present Illness 47-year-old male with history of nonischemic artery myopathy diagnosed in 2007, the patient had normal coronaries, the patient had received IV ICD, he also has atrial fibrillation paroxysmal, the patient was recently admitted to [facility] for right heart catheterization, he was diagnosed [...] twice. He was therefore brought in to [facility] emergency room. Review of Systems Constitutional: No [...] Refill(s) fluticasone 50 mcg/inh nasal spray: 1 [place], Nostrils Both, Daily, 0 Refill(s) montelukast 10 [...] Problem list: Medical angina / SNOMED CT 020327660 / Confirmed At risk for sleep apnea / IMO 56006182 / Confirmed cardiac defibulator / Confirmed interrogated at physicians office---02/22/13 pacemaker / SNOMED CT 6454627160 / Confirmed stroke / SNOMED CT 956180010 / Confirmed he had a stroke when they found the blood clot in valve 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 / Confirmed treated with blood thinners History of obstructive sleep apnea / IMO 74381395 / Confirmed high cholesterol / SNOMED CT 07142442 / Confirmed hypertension / SNOMED CT 4192340770 / Confirmed myocardial infarction / SNOMED CT 59886993 / Confirmed sesonal allergies / Confirmed, Active [...] EST Height Source Stated Height Entry Format Swift Height/Length, SAO TOMEAN (ft) 6 ft Height/Length SAO TOMEAN 0 Inch CLINICALHEIGHT 182.88 cm Eugene Body Weight 77 kg Weight Source Standing scale Weight Entry Format Swift Weight [place] Islander lb 229 lb Weight [place] Islander oz 5 oz CLINICALWEIGHT 104.23 kg Body Surface Area (BSA) 2.26 m2 Body Mass Index 31.2 kg/m2 HI 04/14/2018 19:04 EST Height Source Stated Height Entry Format Swift Height/Length, SAO TOMEAN (ft) 6 ft Height/Length [place]OME[place] 0 Inch CLINICALHEIGHT 182.88 cm Eugene Body Weight 76.59 kg Weight Source, ED Standing scale Weight Entry Format Swift Weight [place] Islander lb 229 lb CLINICALWEIGHT 104.09 kg Body [...] of motion, Normal strength. Integumentary: Warm, Dry, [place]. Neurologic: Alert, Oriented. Cognition and Speech: Oriented, [...]
--- OUTSIDE RECORDS SUMMARY | 2025-02-19 16:03 | XMS_ITS | Encounter Summary ---
Author Organization [employer] ([place], [place], [place], [place], [place]) Address [address] [place] [address] Care Team Providers Care Place Change Roof Bolter Name Role Phone Unavailable Primary Care Provider Setfan pond Encounter Details Date Type Department Care Team (Late st Contact Info) Description 04/14/2018 Transcribed Document [facility] [place] [place] [facility] [place] [address] ProviderMg MD [facility] [place] [address] Social History Tobacco Use Types Packs/Day Years Used Date Smoking Tobacco: Never Assessed Sex and Gender Information Value Date Recorded Sex Assigned at Not on file Legal Sex Male 1:09 PM CDT Gender Identity Not on file Sexual Orientation Not on file documented as of this encounter Miscellaneous Notes * [employer] Conversion Note - Mg ProviderMD - 04/14/2018 11:19 PM TELECOMMUNICATION ENGINEER Education-Smoking Cessation Entered On: 04/15/2018 6:49 EST [...] Tobacco Cues : Verbalizes understanding Activities to [place] With Smoking Urges : Verbalizes understanding Basic Information About Quitting : Verbalizes understanding Tobacco Use Increases Chance of Relapse : Verbalizes understanding Withdrawal Symptoms Peak After Quitting : Verbalizes understanding Addictive Nature of Tobacco : Verbalizes understanding Caridad Clements RN - 04/15/2018 6:49 EST Electronically signed by [facility], [facility] Conversion Automotive Painter Cerner at 06/19/2022 11:00 PM CDT documented in this encounter Plan of Treatment Not on file documented as of this encounter Visit Diagnoses Not on filedocumented in this encounter
--- OUTSIDE RECORDS SUMMARY | 2025-02-19 16:03 | XMS_ITS | Encounter Summary ---
Author Organization [employer] ([place], [place], [place], [place], [place]) Address [address] [place] [address] Care Team Providers Care Forepart Reducer Name Role Phone Unavailable Primary Care Provider Unavailabl e Encounter Details Date Type Department Care Team (Late st Contact Info) Description 04/15/2018 Transcribed Document [facility] [place] [facility] [place] [address] ProviderMg MD [address] [place] [address] Social History Tobacco Use Types Packs/Day Years Used Date Smoking Tobacco: Never Assessed Sex and Gender Information Value Date Recorded Sex Assigned at Not on file Legal Sex Male 1:09 PM CDT Gender Identity Not on file Sexual Orientation Not on file documented as of this encounter Miscellaneous Notes * [employer]ner Conversion Note - Mg ProviderMD - 04/15/2018 2:01 AM PREPRESS STRIPPER [address] [id number] Patient Information Name: JOSE PEARSON Age: 47 [...] range between ( 1.0 and 7.0 ) [place] #: 1.17 K/uL -- Normal range between ( 0.24 and 0.82 ) [place] #: 0.12 K/uL -- Normal range between ( 0.04 and 0.54 ) [place] %: 19.4 % -- Normal range between [...] ) Urine Bilirubin Dipstick: Negative Urine Specific [place]: 1.020 -- Normal range between ( 1.005 and 1.030 ) Urine Chemistry 04/14/18 23:23:00 Sodium Ur [place]: 48 mMole/Liter General Chemistry 04/14/18 22:35:00 Creatinine [...] This statement is to verify that ANASTASIA JOSE PAIGE was seen at [facility] Emergency Department on ,04/15/2018 02:01:07. This [...] Assistance with quitting is available by contacting 0-675-RXTY-NOW. This is a free resource providing counseling, [...] Electronic Communications Privacy Act 18 U.S.C. ???Sections 6991-2867,?? and contain information intended for the specified [...] sure to sign up for the My [facility] patient portal, which gives you 26/09 access to your medical information ??? including these discharge instructions ??? using your computer, smartphone, or tablet. Just go to [employer] to get started. Questions? Call . Acknowledgment [...] Yes____ No____ Nurse Providing Instructions: Emergency Physician: documented in this encounter Plan of Treatment Not on file documented as of this encounter Visit Diagnoses Not on filedocumented in this encounter
--- OUTSIDE RECORDS SUMMARY | 2025-02-19 16:03 | XMS_ITS | Encounter Summary ---
Author Organization [employer] ([place], [place], [place], [place], [place]) Address [address] [place] [address] Care Team Providers Care Manager Business Development Hospice Name Role Phone Unavailable Primary Care Provider Unavailabl e Encounter Details Date Type Department Care Team (Late st Contact Info) Description 04/16/2018 Transcribed Document [facility] [place] [facility] [place] [address] ProviderMg MD [facility] [place] [address] Social History Tobacco Use Types Packs/Day Years Used Date Smoking Tobacco: Never Assessed Sex and Gender Information Value Date Recorded Sex Assigned at Not on file Legal Sex Male 1:09 PM CDT Gender Identity Not on file Sexual Orientation Not on file documented as of this encounter Miscellaneous Notes * [employer]ner Conversion Note - Historical ProviderMD - 04/16/2018 9:46 AM HOT DIE PRESS OPERATOR Therapy Screen, OT Entered On: 04/16/2018 11:07 [...]
--- OUTSIDE RECORDS SUMMARY | 2025-02-19 16:03 | XMS_ITS | Encounter Summary ---
Author Organization [employer] ([place], [place], [place], [place], [place]) Address [address] [place] [address] Care Team Providers Care Wafer Cleaner Name Role Phone Unavailable Primary Care Provider Unavailabl e Encounter Details Date Type Department Care Team (Late st Contact Info) Description 04/16/2018 Transcribed Document [facility] [place] [facility] [place] [address] ProviderMg MD [facility] [place] [address] Social History Tobacco Use Types Packs/Day Years Used Date Smoking Tobacco: Never Assessed Sex and Gender Information Value Date Recorded Sex Assigned at Not on file Legal Sex Male 1:09 PM CDT Gender Identity Not on file Sexual Orientation Not on file documented as of this encounter Miscellaneous Notes * Cerner Conversion Note - Mg ProviderMD - 04/16/2018 11:08 AM SPONGE PRESS OPERATOR Patient: JOSE PEARSON Age: 47 years [...] Refill(s) fluticasone 50 mcg/inh nasal spray: 1 [place], Nostrils Both, Daily, 0 Refill(s) montelukast 10 [...] Amio drip. Plan for DCCV tomorrow afternoon. Electronically signed by Morales Mejia Conversion Concrete Placement Equipment Operator Heroner at 06/19/2022 10:50 PM CDT documented in this encounter Plan of Treatment Not on file documented as of this encounter Visit Diagnoses Not on filedocumented in this encounter
--- OUTSIDE RECORDS SUMMARY | 2025-02-19 16:03 | XMS_ITS | Encounter Summary ---
Author Organization [employer] ([place], [place], [place], [place], [place]) Address [address] [place] [address] Care Team Providers Care Tone Cabinet Assembler Name Role Phone Unavailable Primary Care Provider Unavailabl e Encounter Details Date Type Department Care Team (Late st Contact Info) Description 04/14/2018 Transcribed Document [facility] [place] [facility] [place] [address] ProviderMg MD [facility] [place] [address] Social History Tobacco Use Types Packs/Day Years Used Date Smoking Tobacco: Never Assessed Sex and Gender Information Value Date Recorded Sex Assigned at Not on file Legal Sex Male 1:09 PM CDT Gender Identity Not on file Sexual Orientation Not on file documented as of this encounter Miscellaneous Notes * Cerner Conversion Note - Mg ProviderMD - 04/14/2018 7:00 PM AREA SAFETY MANAGER ED Triage Entered On: 04/14/2018 19:08 EST Performed On: 04/14/2018 19:04 EST by CHONG LA ED Triage Across the Room Triage Date/Time : 04/14/2018 19:04 EST Chief Complaint : Pacemaker fired yesterday, states chest feels funny . reports + LOC x 30 sec. CHONG LA - 04/14/2018 19:04 EST DCP GENERIC CODE Tracking Acuity : 2 - Emergent Tracking Group : [facility] ED [facility] CHONG LA - 04/14/2018 19:04 EST [...] 04/14/2018 19:08:38 EST) Problems(Active) stroke (SNOMED CT :890212917 ) Name of Problem: stroke ; Onset Date: 04/02/2013 ; Recorder: FLAQUITA MARTIN RN; Confirmation: Confirmed ; Classification: Medical ; Code: 871989800 ; Contributor System: Matcha ; Last Updated: 11/24/2016 11:59 EDT ; Life Cycle Date: 04/02/2013 ; Life Cycle Status: Active ; Vocabulary: SNOMED CT ; Comments: 04/02/2013 8:34 - FLAQUITA MARTIN RN he had a stroke when they found the blood clot in valve angina (SNOMED CT :619143731 ) Name of Problem: angina ; Recorder: FLAQUITA MARTIN RN; Confirmation: Confirmed ; Classification: Medical ; Code: 516140740 ; Contributor System: ON24Chart ; Last Updated: 08/20/2013 11:12 EDT ; Life Cycle Date: 04/02/2013 ; Life Cycle Status: Active ; Vocabulary: SNOMED CT Asthma (SNOMED CT :141385051 ) Name of Problem: Asthma ; Recorder: Kailey Castorena RN; Confirmation: Confirmed ; Classification: Patient Stated ; Code: 246670100 ; Contributor System: PowerChart ; Last Updated: 03/23/2017 9:49 EST ; Life Cycle Date: 03/23/2017 ; Life Cycle Status: Active ; Vocabulary: SNOMED CT At risk for sleep apnea (IMO :84942641 ) Name of Problem: At risk for sleep apnea ; Recorder: SYSTEM, SYSTEM; Confirmation: Confirmed ; Classification: Medical ; Code: 86299653 ; Last Updated: 03/28/2018 13:21 EST ; [...] interrogated at physicians office---02/22/13 Cardiomyopathy (SNOMED CT :594010255 ) Name of Problem: Cardiomyopathy ; Recorder: Kailey Castorena RN; Confirmation: Confirmed ; Classification: Patient Stated ; Code: 639812911 ; Contributor System: PowerChart ; Last Updated: [...] GERD - Gastro-esophageal reflux disease (SNOMED CT :6605962254 ) Name of Problem: GERD - Gastro-esophageal reflux disease ; Recorder: Kailey Castorena RN; Confirmation: Confirmed ; Classification: Patient Stated ; Code: 0883168359 ; Contributor System: PowerChart ; Last Updated: 03/23/2017 9:49 EST ; Life Cycle Date: 03/23/2017 ; Life Cycle Status: Active ; Vocabulary: SNOMED CT H/O: CVA (SNOMED CT :364218322 ) Name of Problem: H/O: CVA ; Recorder: Kailey Castorena RN; Confirmation: Confirmed ; Classification: Patient Stated ; Code: 192663214 ; Contributor System: PowerChart ; Last Updated: 03/23/2017 9:48 EST ; Life Cycle Date: 03/23/2017 ; Life Cycle Status: Active ; Vocabulary: SNOMED CT Heart failure (SNOMED CT :745494746 ) Name of Problem: Heart failure ; Recorder: Kailey Castorena RN; Confirmation: Confirmed ; Classification: Patient Stated ; Code: 196530907 ; Contributor System: PowerChart ; Last Updated: 03/23/2017 9:48 EST ; Life Cycle Date: 03/23/2017 ; Life Cycle Status: Active ; Vocabulary: SNOMED CT high cholesterol (SNOMED CT :22420329 ) Name of Problem: high cholesterol ; Recorder: FLAQUITA MARTIN RN; Confirmation: Confirmed ; Classification: Medical ; Code: 33188915 ; Contributor System: PowerChart ; Last Updated: 08/19/2013 14:21 EDT ; Life Cycle Date: 04/02/2013 ; Life Cycle Status: Active ; Vocabulary: SNOMED CT Hyperlipidemia (SNOMED CT :43381201 ) Name of Problem: Hyperlipidemia ; Recorder: Kailey Castorena RN; Confirmation: Confirmed ; Classification: Patient Stated ; Code: 03107274 ; Contributor System: PowerChart ; Last Updated: 03/23/2017 9:48 EST ; Life Cycle Date: 03/23/2017 ; Life Cycle Status: Active ; Vocabulary: SNOMED CT hypertension (SNOMED CT :1898202060 ) Name of Problem: hypertension ; Recorder: FLAQUITA MARTIN RN; Confirmation: Confirmed ; Classification: Medical ; Code: 8190538840 ; Contributor System: PowerChart ; Last Updated: 08/19/2013 14:20 EDT ; Life Cycle Date: 04/02/2013 ; Life Cycle Status: Active ; Vocabulary: SNOMED CT myocardial infarction (SNOMED CT :82895907 ) Name of Problem: myocardial infarction ; Onset Date: 04/02/2007 ; Recorder: FLAQUITA MARTIN RN; Confirmation: Confirmed ; Classification: Medical ; Code: 67432814 ; Contributor System: PowerChart ; Last Updated: 08/19/2013 14:57 EDT ; Life Cycle Date: 04/02/2013 ; Life Cycle Status: Active ; Vocabulary: SNOMED CT pacemaker (SNOMED CT :8394774815 ) Name of Problem: pacemaker ; Recorder: FLAQUITA MARTIN RN; Confirmation: Confirmed ; Classification: Medical ; Code: 0436522154 ; Contributor System: Matcha ; Last Updated: 08/20/2013 16:01 EDT ; [...] PNED ; Probability: 0 ; Diagnosis Code: [id number] ED Height and Weight Height Source : Stated Height Entry Format : [place] Height, Feet : 6 ft(Converted to: 183 cm, 72 Inch) Height, Inches : 0 Inch(Converted to: 0 ft 0 Inch, 0.00 cm) Clinical Height : 182.88 cm Weight Source, ED : Standing scale Weight Entry Format : [place] Weight, Pounds : 229 lb Clinical Dosing Weight : 104.09 kg Body Surface Area (BSA) : 2.26 m2 Body Mass Index : 31.1 kg/m2 (HI) [place] Body Weight (IBW) : 76.59 kg CHONG LA - 04/14/2018 19:04 EST documented in this encounter Plan of Treatment Not on file documented as of this encounter Visit Diagnoses Not on filedocumented in this encounter
--- OUTSIDE RECORDS SUMMARY | 2025-02-19 16:03 | XMS_ITS | Encounter Summary ---
Author Organization [employer] ([place], [place], [place], [place], [place]) Address [address] [place] [address] Care Team Providers Care Crushed Stone Grader Name Role Phone Unavailable Primary Care Provider Stefan e Encounter Details Date Type Department Care Team (Late st Contact Info) Description 04/16/2018 Transcribed Document [facility] [place] Family Medicine [facility] [place] [address] ProviderMg MD [facility] [place], [place] [id number] Social History Tobacco Use Types Packs/Day Years Used Date Smoking Tobacco: Never Assessed Sex and Gender Information Value Date Recorded Sex Assigned at Not on file Legal Sex Male 1:09 PM CDT Gender Identity Not on file Sexual Orientation Not on file documented as of this encounter Miscellaneous Notes * Cerner Conversion Note - Mg ProviderMD - 04/16/2018 6:16 PM GINSENG FARMER Patient: JOSE PEARSON Age: 47 years Sex: [...] 5 years ago, was seen by an social security assessor, but that it spontaneously resolved thereafter and [...] Refill(s) fluticasone 50 mcg/inh nasal spray: 1 [place], Nostrils Both, Daily, 0 Refill(s) montelukast 10 mg oral tablet: 1 Tab, Oral, Daily, 0 Refill(s) pravastatin 80 mg oral tablet: 1 Tab, Oral, At Bedtime, 0 Refill(s) spironolactone: 25 mg, Oral, Daily, 0 Refill(s) Problem list: Medical angina / SNOMED CT 698202204 / Confirmed At risk for sleep apnea / IMO 17952232 / Confirmed cardiac defibulator / Confirmed interrogated at physicians office---02/22/13 pacemaker / SNOMED CT 5908606194 / Confirmed stroke / SNOMED CT 099498455 / Confirmed he had a stroke when they found the blood clot in valve 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 / Confirmed treated with blood thinners History of obstructive sleep apnea / IMO 82120225 / Confirmed high cholesterol / SNOMED CT 43828436 / Confirmed hypertension / SNOMED CT 4228396681 / Confirmed myocardial infarction / SNOMED CT 27455860 / Confirmed sesonal allergies / Confirmed, Active [...] EST Height Source Stated Height Entry Format [place] Height/Length, [place] (ft) 6 ft Height/Length [place] 0 Inch CLINICALHEIGHT 182.88 cm Routine Weight Source Standing scale Routine Weight Entry Format [place] Routine Weight, Pounds 228 lb Routine Weight, [...] family Electronically signed by Morales Mejia Conversion Head End Desizing Machine Operator Jessica at 06/19/2022 10:48 PM CDT documented in this encounter Plan of Treatment Not on file documented as of this encounter Visit Diagnoses Not on filedocumented in this encounter
--- OUTSIDE RECORDS SUMMARY | 2025-02-19 16:03 | XMS_ITS | Encounter Summary ---
Author Organization [employer] [facility] ([place], [place], [place], [place], [place]) Address [address] [place] [address] Care Team Providers Care Scientific Programmer Name Role Phone Unavailable Primary Care Provider Unavailabl e Encounter Details Date Type Department Care Team (Late st Contact Info) Description 04/15/2018 Transcribed Document [facility] [place] [facility] [place] [address] ProviderMg MD [facility] [place] [address] Social History Tobacco Use Types Packs/Day Years Used Date Smoking Tobacco: Never Assessed Sex and Gender Information Value Date Recorded Sex Assigned at Not on file Legal Sex Male 1:09 PM CDT Gender Identity Not on file Sexual Orientation Not on file documented as of this encounter Miscellaneous Notes * Cerner Conversion Note - Historical ProviderMD - 04/15/2018 5:00 AM SKIP LOADER Height and Weight, Routine Entered On: 04/16/2018 6:59 EST Performed On: 04/15/2018 5:00 EST by Josue Roa Patient Visual Associate Height and Weight, Routine Routine Weight Source : Standing scale Routine Weight Entry Format : [place] Routine Weight, Pounds : 228 lb Routine Weight, Ounces : 6 oz Routine Weight Calculation : 103.81 kg Height Source : Stated Height Entry Format : [place] Height, Feet : 6 ft Height, Inches : 0 Inch Clinical Height : 182.88 cm Body Surface Area (BSA), Routine : 2.26 m2 Body Mass Index (BMI), Routine : 31.04 kg/m2 Josue Roa Patient Visual Associate - 04/16/2018 6:59 EST documented in this encounter Plan of Treatment Not on file documented as of this encounter Visit Diagnoses Not on filedocumented in this encounter
--- OUTSIDE RECORDS SUMMARY | 2025-02-19 16:03 | XMS_ITS | Encounter Summary ---
Author Organization [employer] ([place], [place], [place], [place], [place]) Address [address] [place] [address] Care Team Providers Care Regional Sales Consultant Name Role Phone Unavailable Primary Care Provider Unavailabl e Encounter Details Date Type Department Care Team (Late st Contact Info) Description 04/16/2018 Transcribed Document [facility] [place] [facility] [place] [address] ProviderMg [place] [facility] [place] [address] Social History Tobacco Use Types Packs/Day Years Used Date Smoking Tobacco: Never Assessed Sex and Gender Information Value Date Recorded Sex Assigned at Not on file Legal Sex Male 1:09 PM CDT Gender Identity Not on file Sexual Orientation Not on file documented as of this encounter Miscellaneous Notes * Cerner Conversion Note - Historical ProviderMD - 04/16/2018 11:[address] [place] OT Charges Entered On: 04/16/2018 11:08 EST Performed On: 04/16/2018 11:08 EST by NAHUM CORNELIUS OTR/Kaushal Hager OT Charges Screen For Child Welfare Caseworker : 1 NAHUM CORNELIUS OTR/Kaushal - 04/16/2018 11:08 EST documented in this encounter Plan of Treatment Not on file documented as of this encounter Visit Diagnoses Not on filedocumented in this encounter
--- OUTSIDE RECORDS SUMMARY | 2025-02-19 16:04 | XMS_ITS | Encounter Summary ---
Author Organization [employer] ([place], [place], [place], [place], [place]) Address [address] [place] [address] Care Team Providers Care Tank Inspector Name Role Phone Unavailable Primary Care Provider Unavailabl e Encounter Details Date Type Department Care Team (Late st Contact Info) Description 04/15/2018 Transcribed Document [facility] [place] [facility] [place] [address] ProviderMg MD [facility] [place] [address] Social History Tobacco Use [...] Historical ProviderMD - 04/15/2018 2:00 AM HEALTH EDUCATION COORDINATOR ED Discharge Entered On: 04/15/2018 2:00 EST Performed On: 04/15/2018 2:00 EST by Zora Renteria molder operator Process Patient Disposition : Admit/Observe Personal Belongings [...] 04/15/2018 2:00 EST Electronically signed by Jackie [facility] Conversion Manager Financial Systems Cerner at 06/19/2022 10:53 PM CDT documented in this encounter Plan of Treatment Not on file documented as of this encounter Visit Diagnoses Not on filedocumented in this encounter
--- OUTSIDE RECORDS SUMMARY | 2025-02-19 16:04 | XMS_ITS | Encounter Summary ---
Author Organization [employer] ([place], [place], [place], [place], [place]) Address [address] [place] [address] Care Team Providers Care Ruby On Rails Engineer Name Role Phone Unavailable Primary Care Provider Unavailabl e Encounter Details Date Type Department Care Team (Late st Contact Info) Description 04/17/2018 Transcribed Document [facility] [place] [facility] [place] [address] ProviderMg MD [facility] [place] [address] Social History Tobacco Use Types Packs/Day Years Used Date Smoking Tobacco: Never Assessed Sex and Gender Information Value Date Recorded Sex Assigned at Not on file Legal Sex Male 1:09 PM CDT Gender Identity Not on file Sexual Orientation Not on file documented as of this encounter Miscellaneous Notes * Cerner Conversion Note - Historical ProviderMD - 04/17/2018 5:00 PM PHOTOGRAMMETRIST Chart Check - Review Order Profile Entered On: 04/17/2018 17:30 EST Performed On: 04/17/2018 17:00 EST by EVE NGUYEN RN Chart Check Chart Reviewed Date and Time : 04/17/2018 17:30 EST Powerplans Initiated/Discontinued as Appropriate : Yes All Active Orders Reviewed : Yes EVE NGUYEN RN - 04/17/2018 17:30 EST Electronically signed by Jackie [facility] Conversion Electrician Apprentice Cerner at 06/19/2022 11:09 PM CDT documented in this encounter Plan of Treatment Not on file documented as of this encounter Visit Diagnoses Not on filedocumented in this encounter
--- OUTSIDE RECORDS SUMMARY | 2025-02-19 16:04 | XMS_ITS | Encounter Summary ---
Author Organization [employer] ([place], [place], [place], [place], [place]) Address [address] [place] [address] Care Team Providers Care Mental Health Case Manager Name Role Phone Unavailable Primary Care Provider Stefan pond Encounter Details Date Type Department Care Team (Late st Contact Info) Description 04/15/2018 Transcribed Document [facility] [place] [facility] [place] [address] ProviderMg MD [facility] [place] [address] Social History Tobacco Use Types Packs/Day Years Used Date Smoking Tobacco: Never Assessed Sex and Gender Information Value Date Recorded Sex Assigned at Not on file Legal Sex Male 1:09 PM CDT Gender Identity Not on file Sexual Orientation Not on file documented as of this encounter Miscellaneous Notes * Cerner Conversion Note - Historical ProviderMD - 04/15/2018 5:00 AM VETERANS CONTACT REPRESENTATIVE Chart Check - Review Order Profile Entered [...]
--- OUTSIDE RECORDS SUMMARY | 2025-02-19 16:04 | XMS_ITS | Encounter Summary ---
Author Organization [employer] ([place], [place], [place], [place], [place]) Address [address] [place] [address] Care Team Providers Care Early Years Teacher Name Role Phone Unavailable Primary Care Provider Unavailabl e Encounter Details Date Type Department Care Team (Late st Contact Info) Description 04/15/2018 Transcribed Document [facility] [place] [facility] [place] [address] ProviderMg MD [address] [place] [address] Social History Tobacco Use Types Packs/Day Years Used Date Smoking Tobacco: Never Assessed Sex and Gender Information Value Date Recorded Sex Assigned at Not on file Legal Sex Male 1:09 PM CDT Gender Identity Not on file Sexual Orientation Not on file documented as of this encounter Miscellaneous Notes * [employer]ner Conversion Note - Mg Ritchie MD - 04/15/2018 2:01 AM HARNESSMAKER [address] [place] [address] PERSON INFORMATION Name JOSE PEARSON Age 47 Years 1970 Sex Male Language Nigerien PCP HUMA YARBROUGH (REF)MD-INT Marital Status Med Service Cardiology Acct# Arrival 04/14/2018 19:00:00 Visit Reason Syncope/Near syncope; Medical problem reevaluation; BREAKDOWN (MECHANICAL) OF CARDIAC ELECTRODE, INIT ENCNTR Acuity 2 - Emergent LOS 000 07:01 Depart Date: 00:00 AM Address: [address] [place] [id number] Comment: PROVIDER INFORMATION Provider Role Assigned Unassigned Zora Renteria RN ED Nurse 04/14/2018 19:23:12 TIARA VANCE MD ED Physician 04/14/2018 19:31:38 DIAGNOSIS Cardiac [...] PATIENT EDUCATION INFORMATION Instructions: Follow up: Comment: Electronically signed by Morales Mejia Conversion Regulatory Affairs Specialist [employer]ner at 06/19/2022 10:55 PM CDT documented in this encounter Plan of Treatment Not on file documented as of this encounter Visit Diagnoses Not on filedocumented in this encounter
--- OUTSIDE RECORDS SUMMARY | 2025-02-19 16:04 | XMS_ITS | Encounter Summary ---
Author Organization [employer] ([place], [place], [place], [place], [place]) Address [address] [place] [address] Care Team Providers Care Wallpaper Installer Name Role Phone Unavailable Primary Care Provider Unavailabl e Encounter Details Date Type Department Care Team (Late st Contact Info) Description 04/14/2018 Transcribed Document [facility] [place] [facility] [place] [address] ProviderMg MD [facility] [place] [address] Social History Tobacco Use Types Packs/Day Years Used Date Smoking Tobacco: Never Assessed Sex and Gender Information Value Date Recorded Sex Assigned at Not on file Legal Sex Male 1:09 PM CDT Gender Identity Not on file Sexual Orientation Not on file documented as of this encounter Miscellaneous Notes * [employer]ner Conversion Note - Mg Ritchie MD - 04/14/2018 7:30 PM CUSTOMER CONSULTING MANAGER Patient: JOSE PEARSON Age: 47 years Sex: Male : 1970 Associated Diagnoses: Syncope; Cardiac rhythm disturbance; Hypotension; Scalp contusion Author: TIARA VANCE MD Basic Information Time seen: Date & time 04/14/2018 19:30:00, Voice recognition / review scheduling coordinator technology used for some documentation in this [...] Refill(s) fluticasone 50 mcg/inh nasal spray: 1 [place], Nostrils Both, Daily, 0 Refill(s) montelukast 10 [...] EST Height Source Stated Height Entry Format [place] Height/Length, [place] (ft) 6 ft Height/Length [place] 0 Inch CLINICALHEIGHT 182.88 cm [place] Body Weight 76.59 kg Weight Source, ED Standing scale Weight Entry Format [place] Weight [place] lb 229 lb CLINICALWEIGHT 104.09 [...] ED Adult Triage: ED Clinical Reconciliation: ED bridge manager: Normal Saline Bolus: 1,000 mL, 100 mL/Hr, [...] % 24.0 % Lymph # 1.45 K/uL [place] % 19.4 % HI [place] # 1.17 K/uL HI Eos % 2.0 % Eos # 0.12 K/uL Baso % 0.7 % Baso # 0.04 K/uL Slide Review No IG# 0 x10(3)/uL IG% 0 % PT 14.3 Second(s) HI INR 1.4 HI PTT 33.3 Second(s) HI . Chest X-Ray: Time reported 04/14/2018 21:02:00, no acute disease process, interpretation by Emergency Physician. Radiology results: Radiology Results (Last 48 hours) [id number] -- 04/14/2018 19:00 CT Head WO (04/14/2018 [...] pressure), Interventions hemodynamic management, Case review medical coding specialist, Alternate history family. Performed by: self. Impression [...] treatment plan, Patient indicated understanding of instructions. documented in this encounter Plan of Treatment Not on file documented as of this encounter Visit Diagnoses Not on filedocumented in this encounter
--- OUTSIDE RECORDS SUMMARY | 2025-02-19 16:04 | XMS_ITS | Encounter Summary ---
Author Organization [employer] ([place], [place], [place], [place], [place]) Address [address] [place] [address] Care Team Providers Care Patient Care Assistant Name Role Phone Unavailable Primary Care Provider Unavailabl e Encounter Details Date Type Department Care Team (Late st Contact Info) Description 04/18/2018 Transcribed Document [facility] [place] [facility] [place] [address] ProviderMg MD [facility] [place] [address] Social History Tobacco Use Types Packs/Day Years Used Date Smoking Tobacco: Never Assessed Sex and Gender Information Value Date Recorded Sex Assigned at Not on file Legal Sex Male 1:09 PM CDT Gender Identity Not on file Sexual Orientation Not on file documented as of this encounter Miscellaneous Notes * Cerner Conversion Note - Mg ProviderMD - 04/18/2018 2:22 PM SCRAP CUTTER Care Management Assessment/Plan Entered On: 04/18/2018 14:23 EST Performed On: 04/18/2018 14:22 EST by Breann Ordaz, RN Care Management Note Anticipated Discharge Date : 04/17/2018 21:00 EST Care Management Note : Jim Sanchez set up appointment with [facility] endocrinology, CAREY cancelled Martin's appointment and faxed patient information over to [phone]...[facility] Care Management Note Report : Breann Ordaz, RN - 04/18/18 10:02:59 CM spoke with Rianna patient information coordinator at Ángel Salazar's office, fax [phone]. Patient's requested date for start of care is in 2 weeks but valet parker as scheduling out for 2-3 months. Patient is on the cancellation list at Dr. Salazar's with a July appointment time. Information sent to above fax, appointment time placed in discharge form...arh Breann Ordaz, RN - 04/17/18 13:45:24 Per provider notes, patient scheduled for a DCCV today 04/17/18. [place] to stop all alcohol use. Thyroid work up taking place during admission for new onset thyroid panel testing. Remains a home plan, no needs noted...[facility] Breann Ordaz RN - 04/16/18 09:22:27 chart [...] center Documentation Status Complete : Yes Breann Ordaz RN - 04/18/2018 14:22 EST documented in this encounter Plan of Treatment Not on file documented as of this encounter Visit Diagnoses Not on filedocumented in this encounter
--- OUTSIDE RECORDS SUMMARY | 2025-02-19 16:04 | XMS_ITS | Encounter Summary ---
Author Organization [employer] ([place], [place], [place], [place], [place]) Address [address] [place] [address] Care Team Providers Care Scrap Sawyer Name Role Phone Unavailable Primary Care Provider Unavailabl e Encounter Details Date Type Department Care Team (Late st Contact Info) Description 04/17/2018 Transcribed Document [facility] [place] [facility] [place] [address] ProviderMg MD [facility] [place] [address] Social History Tobacco Use Types Packs/Day Years Used Date Smoking Tobacco: Never Assessed Sex and Gender Information Value Date Recorded Sex Assigned at Not on file Legal Sex Male 1:09 PM CDT Gender Identity Not on file Sexual Orientation Not on file documented as of this encounter Miscellaneous Notes * Cerner Conversion Note - Mg ProviderMD - 04/17/2018 1:43 PM [employer] Care Management Assessment/Plan Entered On: 04/17/2018 13:45 EST Performed On: 04/17/2018 13:43 EST by Breann Ordaz, RN Care Management Note Anticipated Discharge Date : 04/17/2018 21:00 EST Care Management Note : Per provider notes, patient scheduled for a DCCV today 04/17/18. [place] to stop all alcohol use. Thyroid work [...] : Home/Residential/Correction or Self Care -01 Breann Ordaz RN - 04/17/2018 13:43 EST Electronically signed by Jackie [facility] Conversion Mental Health Technician Cerner at 06/19/2022 11:09 PM CDT documented in this encounter Plan of Treatment Not on file documented as of this encounter Visit Diagnoses Not on filedocumented in this encounter
--- OUTSIDE RECORDS SUMMARY | 2025-02-19 16:04 | XMS_ITS | Encounter Summary ---
Author Organization [employer] ([place], [place], [place], [place], [place]) Address [address] [place] [address] Care Team Providers Care Golf Course Manager Name Role Phone Unavailable Primary Care Provider Unavailabl e Encounter Details Date Type Department Care Team (Late st Contact Info) Description 04/15/[address] [facility] [place] Medicine [facility] [place] [address] ProviderMg MD [facility] [place] [address] Social History Tobacco Use Types Packs/Day Years Used Date Smoking Tobacco: Never Assessed Sex and Gender Information Value Date Recorded Sex Assigned at Not on file Legal Sex Male 1:09 PM CDT Gender Identity Not on file Sexual Orientation Not on file documented as of this encounter Miscellaneous Notes * Cerner Conversion Note - Historical ProviderMD - 04/15/2018 10:08 AM HOTEL DINING ROOM CASHIER [facility] [place] PT Charges Entered On: 04/15/2018 [...]
--- OUTSIDE RECORDS SUMMARY | 2025-02-19 16:04 | XMS_ITS | Encounter Summary ---
Author Organization [employer] ([place], [place], [place], [place], [place]) Address [address] [place] [address] Care Team Providers Care Cashier Or Checker Stock Clerk Name Role Phone Unavailable Primary Care Provider Unavailabl e Encounter Details Date Type Department Care Team (Late st Contact Info) Description 04/18/2018 Transcribed Document [facility] [place] Family Medicine [facility] [place] [address] ProviderMg MD [facility] [place] [address] Social History Tobacco Use Types Packs/Day Years Used Date Smoking Tobacco: Never Assessed Sex and Gender Information Value Date Recorded Sex Assigned at Not on file Legal Sex Male 1:09 PM CDT Gender Identity Not on file Sexual Orientation Not on file documented as of this encounter Miscellaneous Notes * Cerner Conversion Note - Mg Ritchie MD - 04/18/2018 9:54 AM EXECUTIVE CANDIDATE DEVELOPER Patient: JOSE PEARSON Age: 47 years Sex: [...] Gastrointestinal: Normal bowel sounds. Integumentary: Warm, Dry, Landing. Results Review General results Today's results: 04/18/2018 [...]
--- OUTSIDE RECORDS SUMMARY | 2025-02-19 16:04 | XMS_ITS | Encounter Summary ---
Author Organization [employer] ([place], [place], [place], [place], [place]) Address [address] [place] [address] Care Team Providers Care Cut Roll Machine Operator Name Role Phone Unavailable Primary Care Provider Unavailabl e Encounter Details Date Type Department Care Team (Late st Contact Info) Description 04/15/2018 Transcribed Document [facility] [place] Family Medicine [facility] [place] [address] ProviderMg MD [facility] [place] [address] Social History Tobacco Use Types Packs/Day Years Used Date Smoking Tobacco: Never Assessed Sex and Gender Information Value Date Recorded Sex Assigned at Not on file Legal Sex Male 1:09 PM CDT Gender Identity Not on file Sexual Orientation Not on file documented as of this encounter Miscellaneous Notes * Cerner Conversion Note - Mg Ritchie MD - 04/15/2018 1:54 PM PROGRAM DEVELOPMENT SPECIALIST Patient: JOSE PEARSON Age: 47 years [...] , the patient was recently admitted to [facility] for right heart catheterization, he was [...] twice. He was therefore brought in to [facility] emergency room. Review of Systems [...] Refill(s) fluticasone 50 mcg/inh nasal spray: 1 [place], Nostrils Both, Daily, 0 Refill(s) montelukast 10 [...] Problem list: Medical angina / SNOMED CT 832900201 / Confirmed At risk for sleep apnea / IMO 51881017 / Confirmed cardiac defibulator / Confirmed interrogated at physicians office---02/22/13 pacemaker / SNOMED CT 3850213800 / Confirmed stroke / SNOMED CT 652865365 / Confirmed he had a stroke when they found the blood clot in valve 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 / Confirmed treated with blood thinners History of obstructive sleep apnea / IMO 56127768 / Confirmed high cholesterol / SNOMED CT 38323711 / Confirmed hypertension / SNOMED CT 2798209821 / Confirmed myocardial infarction / SNOMED CT 51192408 / Confirmed sesonal allergies / Confirmed, Active [...]
--- OUTSIDE RECORDS SUMMARY | 2025-02-19 16:04 | XMS_ITS | Encounter Summary ---
Author Organization [employer] ([place], [place], [place], [place], [place]) Address [address] [place] [address] Care Team Providers Care Shield Operator Name Role Phone Unavailable Primary Care Provider Unavailabl e Encounter Details Date Type Department Care Team (Late st Contact Info) Description 04/18/2018 Transcribed Document [facility] [place] Family Medicine [facility] [place] [address] ProviderMg MD [facility] [place] [address] Social History Tobacco Use Types Packs/Day Years Used Date Smoking Tobacco: Never Assessed Sex and Gender Information Value Date Recorded Sex Assigned at Not on file Legal Sex Male 1:09 PM CDT Gender Identity Not on file Sexual Orientation Not on file documented as of this encounter Miscellaneous Notes * Cerner Conversion Note - Historical ProviderMD - 04/18/2018 5:00 AM HAND SPRING REPAIRER HELPER Height and Weight, Routine Entered On: 04/18/2018 7:07 EST Performed On: 04/18/2018 5:00 EST by GREG MONROY RN Height and Weight, Routine Routine Weight Source : Standing scale Routine Weight Entry Format : [place] Routine Weight, Pounds : 229 lb Routine Weight, Ounces : 2 oz Routine Weight Calculation : 104.15 kg Height Source : Stated Height Entry Format : [place] Height, Feet : 6 ft Height, Inches : 0 Inch Clinical Height : 182.88 cm Body Surface Area (BSA), Routine : 2.26 m2 Body Mass Index (BMI), Routine : 31.14 kg/m2 GREG MONROY RN - 04/18/2018 7:07 EST Electronically signed by Jackie [facility] Conversion Blast Furnace Keeper Helper Cerner at 06/19/2022 10:57 PM CDT documented in this encounter Plan of Treatment Not on file documented as of this encounter Visit Diagnoses Not on filedocumented in this encounter
--- OUTSIDE RECORDS SUMMARY | 2025-02-19 16:04 | XMS_ITS | Encounter Summary ---
Author Organization [employer] ([place], [place], [place], [place], [place]) Address [address] [place] [address] Care Team Providers Care Printed Circuit Boards Router Name Role Phone Unavailable Primary Care Provider Stefan e Encounter Details Date Type Department Care Team (Late st Contact Info) Description 04/18/2018 Transcribed Document [facility] [place] Family Medicine [facility] [place] [address] ProviderMg MD [facility] [place] [address] Social History Tobacco Use Types Packs/Day Years Used Date Smoking Tobacco: Never Assessed Sex and Gender Information Value Date Recorded Sex Assigned at Not on file Legal Sex Male 1:09 PM CDT Gender Identity Not on file Sexual Orientation Not on file documented as of this encounter Miscellaneous Notes * [employer]ner Conversion Note - Mg ProviderMD - 04/18/2018 11:31 AM MUSIC MINISTER Patient: JOSE PEARSON Age: 47 years Sex: [...] Refill(s) fluticasone 50 mcg/inh nasal spray: 1 [place], Nostrils Both, Daily, 0 Refill(s) montelukast 10 [...] Problem list: Medical angina / SNOMED CT 710700324 / Confirmed At risk for sleep apnea / IMO 11003768 / Confirmed cardiac defibulator / Confirmed interrogated at physicians office---02/22/13 pacemaker / SNOMED CT 5456468943 / Confirmed stroke / SNOMED CT 200936419 / Confirmed he had a stroke when they found the blood clot in valve 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 / Confirmed treated with blood thinners History of obstructive sleep apnea / IMO 09088423 / Confirmed high cholesterol / SNOMED CT 41117816 / Confirmed hypertension / SNOMED CT 7036534796 / Confirmed myocardial infarction / SNOMED CT 41435383 / Confirmed sesonal allergies / Confirmed, Active [...] can be of further assistance time 25min Electronically signed by Morales Mejia Conversion Interactive Marketing Strategist Cerner at 06/19/2022 11:05 PM CDT documented in this encounter Plan of Treatment Not on file documented as of this encounter Visit Diagnoses Not on filedocumented in this encounter
--- OUTSIDE RECORDS SUMMARY | 2025-02-19 16:04 | XMS_ITS | Encounter Summary ---
Author Organization [employer] ([place], [place], [place], [place], [place]) Address [address] [place] [address] Care Team Providers Care Collaborative Physician Name Role Phone Unavailable Primary Care Provider Unavailabl e Encounter Details Date Type Department Care Team (Late st Contact Info) Description 04/14/2018 Transcribed Document [facility] [place] Family Medicine [facility] [place] [address] ProviderMg MD [facility] [place] [address] Social History Tobacco Use Types Packs/Day Years Used Date Smoking Tobacco: Never Assessed Sex and Gender Information Value Date Recorded Sex Assigned at Not on file Legal Sex Male 1:09 PM CDT Gender Identity Not on file Sexual Orientation Not on file documented as of this encounter Miscellaneous Notes * Cerner Conversion Note - Mg ProviderMD - 04/14/2018 7:00 PM COTTON PRESSER ED Assessment Entered On: 04/14/2018 19:37 EST [...] Communication Barrier : None Primary Language : Bulgarian Any Spiritual/Cultural Needs or Requests : No [...] 02/12/2017 17:32:08 EST by SERGEI GARCIA RN) Cardiovascular ASMT, ED Cardiovascular Assessment WDL : WDL with exceptions Cardiovascular Symptoms : Chest discomfort at rest, Syncope/Fainting at rest Heart Rhythm : Regular Nail Bed Color : [place] Chest Pain : Yes Zora Renteria RN - 04/14/2018 19:36 EST Pulses Grid Brachial Pulse, Left : 2+ normal Brachial Pulse, Right : 2+ normal Zora Renteria RN - 04/14/2018 19:36 EST Neck Vein Distention : Unable to visualize Edema Comment : syncope episode x1, funny feeling in chest Clubbing Present : No Heart Sounds : S1/S2 Zora Retneria RN - 04/14/2018 19:36 EST Respiratory Breath Sounds Assessment Grid All Lobes Breath Sounds : Clear Zora Renteria RN - 04/14/2018 19:36 EST documented in this encounter Plan of Treatment Not on file documented as of this encounter Visit Diagnoses Not on filedocumented in this encounter
--- OUTSIDE RECORDS SUMMARY | 2025-02-19 16:04 | XMS_ITS | Encounter Summary ---
Author Organization [employer] ([place], [place], [place], [place], [place]) Address [address] [place] [address] Care Team Providers Care Supervisory Lifeguard Name Role Phone Unavailable Primary Care Provider Unavailabl e Encounter Details Date Type Department Care Team (Late st Contact Info) Description 04/17/2018 Transcribed Document [facility] [place] Family [place] [facility] [place] [address] ProviderMg MD [address] [place] [address] Social History Tobacco Use Types Packs/Day Years Used Date Smoking Tobacco: Never Assessed Sex and Gender Information Value Date Recorded Sex Assigned at Not on file Legal Sex Male 1:09 PM CDT Gender Identity Not on file Sexual Orientation Not on file documented as of this encounter Miscellaneous Notes * Cerner Conversion Note - Mg ProviderMD - 04/17/2018 6:44 PM VP PUBLISHER DEVELOPMENT [address] [place] [address] Patient Copy Patient Information: Name: JOSE PEARSON Current Date: 04/17/2018 18:44:56 : 1970 Patient Address: [address] [place] [id number] Patient Attending Physician: KATY FRIAS MD-CAR Primary [...] (fluticasone 50 mcg/inh nasal spray) 1 [place](s) Nostrils Both Every Day. furosemide (Lasix 40 [...] may report side effects to FDA at 4-589-JOH-4358. What other drugs will affect dofetilide? Other drugs may interact with dofetilide, including prescription and jxij-ywy-pjpiytq medicines, vitamins, and herbal products. Tell each [...] to ensure that the information provided by [employer]. ('[employer]') is accurate, up-to-date, and complete, but no guarantee is made to that effect. Drug information contained herein may be time sensitive. [employer] information has been compiled for use by healthcare practitioners and consumers in the [place] and therefore [employer] does not warrant that uses outside of the [place] are appropriate, unless specifically indicated otherwise. [employer] drug information does not endorse drugs, diagnose patients or recommend therapy. [employer] drug information is an informational resource designed [...] effective or appropriate for any given patient. [employer] does not assume any responsibility for any aspect of healthcare administered with the aid of information [employer] provides. The information contained herein is not intended to cover all possible uses, directions, precautions, warnings, drug interactions, allergic reactions, or adverse effects. If you have questions about the drugs you are taking, check with your doctor, nurse or pharmacist. Copyright 8548-0224 [employer]. Version: 4.01. Revision Date: 06/17/2015. CIGARETTE SMOKING: The facts are clear, cigarette smoking will shorten your life. Smoking can cause many illnesses along the way. As a healthcare provider, we recommend that you stop smoking. Assistance with quitting is available by contacting 4-217-ZTPC-NOW. This is a free resource providing counseling, [...] Be sure to sign up for the [employer] patient portal, which gives you 26/09 access to your medical information ??? including these discharge instructions ??? using your computer, smartphone, or tablet. Just go to [employer] to get started. Questions? Call . [facility] would like to thank you for allowing us to assist you with your healthcare needs. ANASTASIA Rich DENNIS PAUL, (or motor vehicle representative) have received the above patient education materials/instructions and have verbalized understanding: Patient Signature _ Date/Time Patient Finish Remover Signature (if needed) Date/Time Clinician/Hospital Finish Remover Signature (if needed) Date/Time Electronically signed by Jackie, [facility] Conversion Fixed Route Operator Cerner at 06/19/2022 11:09 PM CDT documented in this encounter Plan of Treatment Not on file documented as of this encounter Visit Diagnoses Not on filedocumented in this encounter
--- OUTSIDE RECORDS SUMMARY | 2025-02-19 16:04 | XMS_ITS | Encounter Summary ---
Author Organization [employer] ([place], [place], [place], [place], [place]) Address [address] [place] [address] Care Team Providers Care Senior Net Software Developer Name Role Phone Unavailable Primary Care Provider Unavailabl e Encounter Details Date Type Department Care Team (Late st Contact Info) Description 04/18/2018 Transcribed Document [place] Family Medicine [facility] [place] [address] ProviderMg MD [facility] [place], [place] [address] Social History Tobacco Use Types Packs/Day Years Used Date Smoking Tobacco: Never Assessed Sex and Gender Information Value Date Recorded Sex Assigned at Not on file Legal Sex Male 1:09 PM CDT Gender Identity Not on file Sexual Orientation Not on file documented as of this encounter Miscellaneous Notes * [employer]ner Conversion Note - Historical ProviderMD - 04/18/2018 2:[address] MACHINE OPERATOR ROAD FORMS Restaurant Hourly Manager Details Entered On: 04/18/2018 4:38 EST Performed [...]
--- OUTSIDE RECORDS SUMMARY | 2025-02-19 16:05 | XMS_ITS | Encounter Summary ---
Author Organization [employer] ([place], [place], [place], [place], [place]) Address [address] [place] [address] Care Team Providers Care Air Traffic Control Equipment Repairer Name Role Phone Unavailable Primary Care Provider Unavailabl e Encounter Details Date Type Department Care Team (Late st Contact Info) Description 04/18/2018 Transcribed Document [facility] [place] Family Medicine [facility] [place] [address] ProviderMg MD [facility] [address] Social History Tobacco Use Types Packs/Day Years Used Date Smoking Tobacco: Never Assessed Sex and Gender Information Value Date Recorded Sex Assigned at Not on file Legal Sex Male 1:09 PM CDT Gender Identity Not on file Sexual Orientation Not on file documented as of this encounter Miscellaneous Notes * [employer]ner Conversion Note - Mg ProviderMD - 04/18/2018 10:00 AM CREDIT OFFICE MANAGER Care Management Assessment/Plan Entered On: 04/18/2018 10:02 EST Performed On: 04/18/2018 10:00 EST by Breann Ordaz, RN Care Management Note Anticipated Discharge Date : 04/17/2018 21:00 EST Care Management Note : CAREY spoke with Rianna graphics coordinator at Ángel Salazar's office, fax [phone]. Patient's requested date for start of care is in 2 weeks but bottom crane operator as scheduling out for 2-3 months. Patient is on the cancellation list at Dr. Salazar's with a July appointment time. Information sent to above fax, appointment time placed in discharge form...arh Care Management Note Report : Breann Ordaz, RN - 04/17/18 13:45:24 Per provider notes, patient scheduled for a DCCV today 04/17/18. [place] to stop all alcohol use. Thyroid work [...] . Home plan at discharge, no needs noted...[facility] Documentation Status Complete : Yes Breann Ordaz, RN - 04/18/2018 10:00 EST Electronically signed by Jackie [facility] Conversion Tire Center Manager Cerner at 06/19/2022 11:07 PM CDT documented in this encounter Plan of Treatment Not on file documented as of this encounter Visit Diagnoses Not on filedocumented in this encounter
--- OUTSIDE RECORDS SUMMARY | 2025-02-19 16:05 | XMS_ITS | Encounter Summary ---
Author Organization [employer] ([place], [place], [place], [place], [place]) Address [address] [place] [address] Care Team Providers Care Stack Clerk Name Role Phone Unavailable Primary Care Provider Unavailabl e Encounter Details Date Type Department Care Team (Late st Contact Info) Description 04/17/2018 Transcribed Document [facility] [place] [facility] [place] [address] ProviderMg MD [address] [place] [address] Social History Tobacco Use Types Packs/Day Years Used Date Smoking Tobacco: Never Assessed Sex and Gender Information Value Date Recorded Sex Assigned at Not on file Legal Sex Male 1:09 PM CDT Gender Identity Not on file Sexual Orientation Not on file documented as of this encounter Miscellaneous Notes * [employer]ner Conversion Note - Mg ProviderMD - 04/17/2018 8:26 AM TOOL AND MACHINE MAINTAINER PLEASE MODIFY BEFORE SIGNING CLINICAL DOCUMENTATION CLARIFICATION [...] PCM identified 04/16 [x ] BMI of_31.2_ 04/1570-Grl-KVH-31.2 Two or More of the Following ASPEN Criteria: [ x ] Unintentional Insufficient Energy Intake 04/1644-Pgmqujujv-Ecyvosuz reduced:</=50% needs for >/=5days [ x ] Weight Loss 04/1605-Mnjzyagtq-Bxxhqu:>2% past 1 week [ x ] Loss of Muscle Mass 04/1639-Gybouvgei-Zgsbmbfi: (suggested) some loss muscle mass [ x] Loss of Subcutaneous Fat 04/16-Nutrition - did observe moderate subcutaneous fat wasting to orbitals Present Risk Factors Results and Location in Medical Record [ x ] Change in appetite / nausea / vomiting / diarrhea 04/1640-Wjlcxfujm-jz intake <50% >/=5days [ x ] Acute illness 04/1604-Dttraibuu-Qnppvfqmdltfkzz [ x ] Chronic illness 04/1614-Xusghjvem-csynv on chronic left heart failure Present Treatments Results and Location in Medical Record [ x ] Dietary consult 04/16-MD orders-Nutrition consult [ x ] Nutritional supplements 04/16-Nutrition- RD will continue to monitor for pt to agree to oral supplements [ x ] Weights 04/1634-Rzpkpuamw-Xytufpg wt 2x/wk [ x ] Medication supplements 04/14-MD orders-Magnesium sulfate IV, Potassium chloride po CDS Signature: __Markus Simms RN, MSN, CDS__ Phone #: __[phone]_ Date: _04/17/2018__ Moderate Malnutrition (in acute illness) [...] loss; moderate- severe fluid accumulation; measurably reduced powder mill operator strength Moderate Malnutrition (in chronic illness) Energy [...] mass loss; severe fluid accumulation; measurably reduced powder mill operator strength This is a permanent part of the Medical Record 04/18/2018--Progress note-Dr. Lerma-Moderate protein-calorie malnutrition Electronically signed by Jackie, [facility] Conversion Duck Farmer Cerner at 06/19/2022 10:48 PM CDT documented in this encounter Plan of Treatment Not on file documented as of this encounter Visit Diagnoses Not on filedocumented in this encounter
--- OUTSIDE RECORDS SUMMARY | 2025-02-19 16:05 | XMS_ITS | Encounter Summary ---
Author Organization [employer] ([place], [place], [place], [place], [place]) Address [address] [place] [address] Care Team Providers Care 5Th Grade Teacher Name Role Phone Unavailable Primary Care Provider Unavailabl e Encounter Details Date Type Department Care Team (Late st Contact Info) Description 04/16/2018 Transcribed Document [facility] [place] [facility] [place] [address] ProviderMg MD [facility] [place] [address] Social History Tobacco Use Types Packs/Day Years Used Date Smoking Tobacco: Never Assessed Sex and Gender Information Value Date Recorded Sex Assigned at Not on file Legal Sex Male 1:09 PM CDT Gender Identity Not on file Sexual Orientation Not on file documented as of this encounter Miscellaneous Notes * [employer]ner Conversion Note - Historical ProviderMD - 04/16/2018 7:44 PM PERINATAL NURSE Event Note Entered On: 04/16/2018 19:45 EST Performed On: 04/16/2018 19:44 EST by CHARLA PHILLIPS RN Event Note Event Date/Time : 04/16/2018 19:44 EST Event Location : Assigned room Description of Event : Dr Hobbs called to DC amiodarone 400 mg po. CHARLA PHILLIPS RN - 04/16/2018 19:44 EST Electronically signed by Jackie [facility] Conversion Manager Assurance Jessica at 06/19/2022 10:59 PM CDT documented in this encounter Plan of Treatment Not on file documented as of this encounter Visit Diagnoses Not on filedocumented in this encounter
--- OUTSIDE RECORDS SUMMARY | 2025-02-19 16:05 | XMS_ITS | Encounter Summary ---
Author Organization [employer] ([place], [place], [place], [place], [place]) Address [address] [place] [address] Care Team Providers Care Project Builder Name Role Phone Unavailable Primary Care Provider Unavailabl e Encounter Details Date Type Department Care Team (Late st Contact Info) Description 04/16/2018 Transcribed Document [facility] [place] [facility] [place] [address] ProviderMg MD [facility] [place] [address] Social History Tobacco Use Types Packs/Day Years Used Date Smoking Tobacco: Never Assessed Sex and Gender Information Value Date Recorded Sex Assigned at Not on file Legal Sex Male 1:09 PM CDT Gender Identity Not on file Sexual Orientation Not on file documented as of this encounter Miscellaneous Notes * Cerner Conversion Note - Historical ProviderMD - 04/16/2018 5:00 AM MONOTYPE MECHANIC Chart Check - Review Order Profile [...]
--- OUTSIDE RECORDS SUMMARY | 2025-02-19 16:05 | XMS_ITS | Encounter Summary ---
Author Organization [employer] ([place], [place], [place], [place], [place]) Address [address] [place] [address] Care Team Providers Care Loom Setter Fourdrinier Name Role Phone Unavailable Primary Care Provider Unavailabl e Encounter Details Date Type Department Care Team (Late st Contact Info) Description 04/18/2018 Transcribed Document [facility] [place] [facility] [place] [address] ProviderMg MD [facility] [address] Social History Tobacco Use Types Packs/Day Years Used Date Smoking Tobacco: Never Assessed Sex and Gender Information Value Date Recorded Sex Assigned at Not on file Legal Sex Male 1:09 PM CDT Gender Identity Not on file Sexual Orientation Not on file documented as of this encounter Miscellaneous Notes * Cerner Conversion Note - Historical ProviderMD - 04/18/2018 5:00 AM LYE MACHINE OPERATOR Chart Check - Review Order Profile [...]
--- OUTSIDE RECORDS SUMMARY | 2025-02-19 16:05 | XMS_ITS | Encounter Summary ---
Author Organization [facility] ([place], [place], [place], [place], [place]) Address [address] [place] [address] Care Team Providers Care Manager Investment Banking Name Role Phone Unavailable Primary Care Provider Unavailabl e Encounter Details Date Type Department Care Team (Late st Contact Info) Description 04/16/2018 Transcribed Document [facility] [place] [facility] [place] [address] ProviderMg MD [facility] [place] [address] Social History Tobacco Use Types Packs/Day Years Used Date Smoking Tobacco: Never Assessed Sex and Gender Information Value Date Recorded Sex Assigned at Not on file Legal Sex Male 1:09 PM CDT Gender Identity Not on file Sexual Orientation Not on file documented as of this encounter Miscellaneous Notes * Cerner Conversion Note - Historical ProviderMD - 04/16/2018 7:13 PM ART DEPARTMENT HEAD Event Note Entered On: 04/16/2018 19:14 EST Performed On: 04/16/2018 19:13 EST by CHARLA PHILLIPS RN Event Note Event Date/Time : 04/16/2018 19:13 EST Event Location : Assigned room Description of Event : Dr. Hobbs stated to stop amiodarone gtt because of blood pressure. Didn't DC order in case need to restart. CHARLA PHILLIPS, MARYCARMEN - 04/16/2018 19:13 EST Electronically signed by Jackie [facility] Conversion Mold Design Engineer Cerner at 06/19/2022 10:56 PM CDT documented in this encounter Plan of Treatment Not on file documented as of this encounter Visit Diagnoses Not on filedocumented in this encounter
--- OUTSIDE RECORDS SUMMARY | 2025-02-19 16:05 | XMS_ITS | Encounter Summary ---
Author Organization [employer] ([place], [place], [place], [place], [place]) Address [address] [place] [address] Care Team Providers Care Cut File Clerk Name Role Phone Unavailable Primary Care Provider Unavailabl e Encounter Details Date Type Department Care Team (Late st Contact Info) Description 04/16/2018 Transcribed Document [facility] [place] [facility] [place] [address] ProviderMg MD [facility] [place] [address] Social History Tobacco Use Types Packs/Day Years Used Date Smoking Tobacco: Never Assessed Sex and Gender Information Value Date Recorded Sex Assigned at Not on file Legal Sex Male 1:09 PM CDT Gender Identity Not on file Sexual Orientation Not on file documented as of this encounter Miscellaneous Notes * [employer]ner Conversion Note - Mg ProviderMD - 04/16/2018 2:19 PM SOFTWARE DEVELOPMENT ANALYST Consult Phone Call Documentation Entered On: 04/16/2018 [...]
--- OUTSIDE RECORDS SUMMARY | 2025-02-19 16:06 | XMS_ITS | Encounter Summary ---
Author Organization [employer] ([place], [place], [place], [place], [place]) Address [address] [place] [address] Care Team Providers Care Jacquard Card Lacer Name Role Phone Unavailable Primary Care Provider Unavailabl e Encounter Details Date Type Department Care Team (Late st Contact Info) Description 04/17/2018 Transcribed Document [facility] [place] [facility] [address] ProviderMg MD [facility] [place] [id number] Social History Tobacco Use Types Packs/Day Years Used Date Smoking Tobacco: Never Assessed Sex and Gender Information Value Date Recorded Sex Assigned at Not on file Legal Sex Male 1:09 PM CDT Gender Identity Not on file Sexual Orientation Not on file documented as of this encounter Miscellaneous Notes * Cerner Conversion Note - Mg ProviderMD - 04/17/2018 6:18 PM SUPERVISOR PILE DRIVING Patient: JOSE PEARSON Age: 47 years Sex: [...] Refill(s) fluticasone 50 mcg/inh nasal spray: 1 [place], Nostrils Both, Daily, 0 Refill(s) montelukast 10 [...]
--- OUTSIDE RECORDS SUMMARY | 2025-02-19 16:06 | XMS_ITS | Encounter Summary ---
Author Organization [employer] ([place], [place], [place], [place], [place]) Address [address] [place] [address] Care Team Providers Care Customs Director Name Role Phone Unavailable Primary Care Provider Unavailabl e Encounter Details Date Type Department Care Team (Late st Contact Info) Description 04/17/2018 Transcribed Document [facility] [place] [address] [place] [address] ProviderMg MD [facility] [place], [place] [id number] Social History Tobacco Use Types Packs/Day Years Used Date Smoking Tobacco: Never Assessed Sex and Gender Information Value Date Recorded Sex Assigned at Not on file Legal Sex Male 1:09 PM CDT Gender Identity Not on file Sexual Orientation Not on file documented as of this encounter Miscellaneous Notes * Cerner Conversion Note - Historical ProviderMD - 04/17/2018 2:00 AM TRUCK DRIVER'S OFFSIDER Manager Manufacturing Details Entered On: 04/17/2018 3:17 EST Performed [...]
--- OUTSIDE RECORDS SUMMARY | 2025-03-06 19:00 | XMS_ITS | Clinical Summary ---
Author Organization Unknown Care Team Providers Care Senior Underwriting Assistant Name Role Phone JUAN LUIS LERMA, MOLLY Unavailable Unavailable KANG PT, YENNI Unavailable Unavailable ABELINO OT, TANO Unavailable Unavailable [employer] RESIDENTIAL MORTGAGE UNDERWRITER, MARTA Unavailable Unavailable JOSE L MISDRAW HAND, FLORENCE Unavailable Unavailable JOSE ALEJANDRO RN, NANO Unavailable Unavailable Payers Payer Name Policy Type Policy Number Effective Date Expira tion Date [employer] [id number] SECONDARYONLY.SHANA DGM [id number] Problems Condition Name Condition Details Condition Category Status Onset Date Resolution Date Last Treatment Date Treating Clinician Comments HEMIPLGA FOLLOWING CEREBRAL INFRC AFFECTING LEFT NONDOM SIDE Active 07-11 00:00: 00 HYPERTENSIVE HEART DISEASE WITH HEART FAILURE Active 07-11 00:00: 00 UNSPECIFIED SYSTOLIC (CONGESTIVE) HEART FAILURE Active 07-11 00:00: 00 ATHSCL HEART DISEASE OF [place] CORONARY ARTERY W/O ANG PCTRS Active 07-11 00:00: 00 UNSPECIFIED ATRIAL FIBRILLATION Active 07-11 00:00: 00 OTHER CARDIOMYOPAT HIES Active 07-11 00:00: 00 PURE HYPERCHOLEST EROLEMIA, UNSPECIFIED Active 07-11 00:00: 00 PERSONAL HISTORY OF PNEUMONIA (RECURRENT) Active 904 00:00: 00 DEPENDENCE ON WHEELCHAIR Active 07-11 00:00: 00 PRESENCE OF HEART ASSIST DEVICE Active 07-11 00:00: 00 [facility] (CURRENT) USE OF INHALED STEROIDS Active 07-11 00:00: 00 [facility] (CURRENT) USE OF ANTICOAGULAN TS Active 07-11 [...] 325 mg capsule 07-11 00:00: 00 Yes [id number] NEEDED FOR PAIN 975 mg EVERY 6 HOURS 975 mg EVERY 6 HOURS (route: oral) Med Classific ation: Analgesic , Anti-infl ammatory or Antipyret ic albuterol sulfate HFA 90 mcg/actuati on aerosol inhaler 07-11 00:00: 00 Yes [id number] NEEDED FOR SHORTNESS OF BREATH 2 puff NEEDED 2 puff NEEDED (route: inhalation ) Med Classific ation: Respirato ry Therapy Agents Banophen 25 mg capsule 07-11 00:00: 00 Yes [id number] PAIN & ITCHING 25 mg 2 TIMES DAILY 25 mg 2 TIMES DAILY (route: oral) Med Classific ation: Respirato ry Therapy Agents bupropion HCl XL 300 mg 24 hr tablet, extended release 07-11 00:00: 00 Yes [id number] DEPRESSION 300 mg DAILY 300 mg DAILY (route: oral) Med Classific ation: Central Nervous System Agents cephalexin 500 mg capsule 07-11 00:00: 00 Yes [id number] ATB 1000 mg 2 TIMES DAILY 1000 mg 2 TIMES DAILY (route: oral) Med Classific ation: Anti-Infe ctive Agents cetirizine 10 mg tablet 07-11 00:00: 00 Yes [id number] ALLERGIES 10 mg BEDTIME 10 mg BEDTIME (route: oral) Med Classific ation: Respirato ry Therapy Agents Fiber Gummies 1.7 gram chewable tablet 07-11 00:00: 00 Yes [id number] GI 3 tablet DAILY 3 tablet DAILY (route: oral) Med Classific ation: Gastroint estinal Therapy Agents fludrocorti sone 0.1 mg tablet 07-11 00:00: 00 Yes [id number] CORTICOSTER OID 0.1 mg DAILY 0.1 mg DAILY (route: oral) Med Classific ation: Endocrine fluoxetine 40 mg capsule 07-11 00:00: 00 Yes [id number] DEPRESSION 40 mg DAILY 40 mg DAILY (route: oral) Med Classific ation: Central Nervous System Agents ibuprofen 200 mg capsule 07-11 00:00: 00 Yes [id number] NEEDED FOR PAIN 200 mg NEEDED 200 mg NEEDED (route: oral) Med Classific ation: Analgesic , Anti-infl ammatory or Antipyret ic ipratropium 0.5 mg-albutero l 2.5 mg/2.5 mL solution for nebulizatio n 07-11 00:00: 00 Yes [id number] NEEDED FOR SHORTNESS OF BREATH 0.5 mg NEEDED 0.5 mg NEEDED (route: inhalation ) Med Classific ation: Respirato ry Therapy Agents Magnesium Complex 300 mg magnesium tablet 07-11 00:00: 00 Yes [id number] SUPPLEMENTS 1 tablet 2 TIMES DAILY 1 tablet 2 TIMES DAILY (route: oral) Med Classific ation: Electroly te Balance-N utritiona l Products melatonin 10 mg capsule 07-11 00:00: 00 Yes [id number] SLEEP 10 mg BEDTIME 10 mg BEDTIME (route: oral) Med Classific ation: Central Nervous System Agents metoprolol succinate ER 25 mg tablet,exte nded release 24 hr 07-11 00:00: 00 Yes [id number] HTN 25 mg DAILY 25 mg DAILY (route: oral) Med Classific ation: Cardiovas cular Therapy Agents montelukast 10 mg tablet 07-11 00:00: 00 Yes [id number] ASTHMA 10 mg DAILY 10 mg DAILY (route: oral) Med Classific ation: Respirato ry Therapy Agents Mucus Relief ER 600 mg tablet, extended release 07-11 00:00: 00 Yes [id number] CONGESTION 1200 mg 2 TIMES DAILY 1200 mg 2 TIMES DAILY (route: oral) Med Classific ation: Respirato ry Therapy Agents omeprazole 40 mg capsule,del ayed release 07-11 00:00: 00 Yes [id number] GERD 40 mg DAILY 40 mg DAILY (route: oral) Med Classific ation: Gastroint estinal Therapy Agents rosuvastati n 20 mg tablet 07-11 00:00: 00 Yes [id number] CHOLESTEROL 20 mg BEDTIME 20 mg BEDTIME (route: oral) Med Classific ation: Cardiovas cular Therapy Agents Senna Lax 8.6 mg tablet 07-11 00:00: 00 Yes [id number] LAXATIVE 8.6 mg BEDTIME 8.6 mg BEDTIME (route: oral) Med Classific ation: Gastroint estinal Therapy Agents sotalol 120 mg tablet 07-11 00:00: 00 Yes [id number] ARRHYTHMIAS 120 mg 2 TIMES DAILY 120 mg 2 TIMES DAILY (route: oral) Med Classific ation: Cardiovas cular Therapy Agents spironolact one 25 mg tablet 07-11 00:00: 00 Yes [id number] DIURETIC 25 mg DAILY 25 mg DAILY (route: oral) Med Classific ation: Cardiovas cular Therapy Agents tamsulosin 0.4 mg capsule 07-11 00:00: 00 Yes [id number] PROSTATE 0.4 mg DAILY 0.4 mg DAILY (route: oral) Med Classific ation: Genitouri nary Therapy warfarin 10 mg tablet 07-11 00:00: 00 Yes [id number] BLOOD THINNER 10 mg DAILY 10 mg DAILY (route: oral) Med Classific ation: Hematolog ical Agents doxycycline hyclate 100 mg capsule 11-08 00:00: 00 11-09 23:59 :00 No [id number] PNEUMONIA 1 capsule 2 TIMES DAILY 1 capsule 2 TIMES DAILY (route: oral) Med Classific ation: Anti-Infe ctive Agents Vital Signs Vital Name Observation Time Observation Value Commen ts Temperature 2025-01-16 15:54:00.000 97.2 [degF] Pulse 2025-02-06 13:21:00.000 80 /min Pulse 2025-01-16 15:54:00.000 91 /min O2 Saturation (%) 2025-02-06 13:21:00.000 97 % O2 Saturation (%) 2025-01-16 15:54:00.000 97 % Respirations 2025-02-06 13:21:00.000 18 /min Respirations 2025-01-16 15:54:00.000 18 /min Plan of Treatment Planned Activity Planned Date Details Comments Future Scheduled Test AGENCY MAY PERFORM A RESUMPTION OF CARE VISIT FOLLOWING ANY HOSPITAL ADMISSION. PT TO EVALUATE, OBSERVE / ASSESS, AND MONITOR, RESIDENTIAL MORTGAGE UNDERWRITER TO OBSERVE AND MONITOR, PROVIDE SKILLED THERAPEUTIC INTERVENTION, ACTIVITY, EDUCATION, AND TRAINING TO ADDRESS; [code = AGENCY MAY PERFORM A RESUMPTION OF CARE VISIT FOLLOWING ANY HOSPITAL ADMISSION. PT TO EVALUATE, OBSERVE / ASSESS, AND MONITOR, RESIDENTIAL MORTGAGE UNDERWRITER TO OBSERVE AND MONITOR, PROVIDE SKILLED THERAPEUTIC INTERVENTION, ACTIVITY, EDUCATION, AND TRAINING TO ADDRESS;] Future Scheduled Test PT/RESIDENTIAL MORTGAGE UNDERWRITER TO PERFORM INTERVENTIONS TO MAINTAIN CURRENT FUNCTION DUE TO CVA AND/OR TO PREVENT OR SLOW FURTHER FUNCTIONAL DECLINE. [code = PT/RESIDENTIAL MORTGAGE UNDERWRITER TO PERFORM INTERVENTIONS TO MAINTAIN CURRENT FUNCTION DUE TO CVA AND/OR TO PREVENT OR SLOW FURTHER FUNCTIONAL DECLINE.] Goal 2025-01-03 Patient Goal - I WANT TO GET AROUND BETTER Goal Patient Goal - I WANT TO GET AROUND BETTER Goal 2024-09-04 Patient Goal - I WANT [...] End Date/Time Encounter Type Admission Type Attending [facility] Care Department Encounter ID Discharge Date Discharge Status Discharge Condition Discharge Reason Percent Goals Met 2025-01-07 00:00:00 2025-03-07 00:00:00 Outpatient RECERTIFIC ATION YENNI [facility] [id number] [id number]
== END 2025-02-19 23:59 | disposition home or self-care (01) ==
LOC: INF 14:55
PROVIDERS: PCP Pediatrics; Visit Provider Internal Medicine Cardiovascular Disease
DX: D50.9 Iron deficiency anemia, unspecified (principal); Z95.811 Presence of heart assist device
CPT/HCPCS: 96365; J1756

== ENCOUNTER 2025-02-24 14:47 | Outpatient (CLI) | payer BC, MEDICAID, SELFPAY ==
--- OUTSIDE RECORDS SUMMARY | 2018-11-13 12:05 | XMS_ITS | Encounter Summary ---
[facility] [address] [place] [address] Care Team Providers Care Capacitor Assembler Name Role Phone Herberth Perez MD Primary Care Provider [phone] Reason for Visit * Diagnostic Imaging (Routine) - Closed Specialty Diagnoses / Procedures Referred By Contac t Referred To Contact Radiology Diagnoses Solitary thyroid nodule Procedures US Thyroid Zaida Banks MD [address] [place] [address] Phone: tel: fax: [facility] [address] [place] [address] Phone: tel: fax: Referral ID Status Reason Start Date Expiration Date Visits Re quested Visits Authorized [id number] Closed 11/13/2018 11/13/2019 1 1 Encounter Details Date Type Department Care Team (Late st Contact Info) Description 11/13/2018 1:05 PM EDT Hospital Encounter [facility] [address] [place] [address] Social History Tobacco Use Types [...] on filedocumented in this encounter Care Teams Capacitor Assembler Relationship Specialty Start Date End Date Herberth Perez MD [address] [place] [address] [place] [address] PCP - General Internal Medicine 04/22/17 documented as of this encounter
--- OUTSIDE RECORDS SUMMARY | 2019-11-20 09:45 | XMS_ITS | Encounter Summary ---
Author Organization [facility] Address [address] [place] [address] Care Team Providers Care Computer Tape Librarian Name Role Phone Herberth Perez MD Primary Care Provider [phone] Reason for Visit * Diagnostic Imaging (Routine) - Closed Specialty Diagnoses / Procedures Referred By Contac t Referred To Contact Radiology Diagnoses Solitary thyroid nodule Procedures US Thyroid Zaida Banks MD [address] [place] [address] Phone: tel: fax: [facility] [address] [place] [address] Phone: tel: fax: Referral ID Status Reason Start Date Expiration Date Visits Re quested Visits Authorized [id number] Closed 11/20/2019 11/19/2020 1 1 Encounter Details Date Type Department Care Team (Late st Contact Info) Description 11/20/2019 10:45 AM EDT Hospital Encounter [facility] [address] [place] [address] Social History Tobacco Use Types [...] on filedocumented in this encounter Care Teams Computer Tape Librarian Relationship Specialty Start Date End Date Herberth Perez MD [address] [place] [address] [place] [address] PCP - General Internal Medicine 04/22/17 documented as of this encounter
--- OUTSIDE RECORDS SUMMARY | 2025-01-06 12:34 | XMS_ITS | Encounter Summary ---
Author Organization Healthcare Address [address] [place] [address] Care Team Providers Care Food Dehydrator Operator Name Role Phone Herberth Perez MD Primary Care Provider [phone] Gracia Petersen COMMUNITY HEALTH PROMOTER Unavailable [phone] Yunior Solorzano MD Unavailable [phone] Ross Baez DO Unavailable [phone] Edith Aleman RN Unavailable Unavailable Encounter Details Date Type Department Care Team (Latest Contact Info) Description 01/06/2025 12:34 PM EST - 01/06/2025 11:59 PM [facility] Hospital Encounter Cardiac Imaging [address] [place] [id number] ICD (implantable cardioverter-defibr illator) in place Discharge [...] any time in the past 12 m [facility], were you homeless or living [...] drink first t janine in the morning (EYE-LAMP DECORATOR) to steady your nerves or to get rid of a hangover? 0 09/19/2021 CAGE Questionnaire Score 0 022 Utilities Answer Date Recorded In the past 12 months has th e [employer], [employer], oil, or water [employer]ant[employer] threatened to shut off services in your [...] tabletIndications :LVAD (left ventricular assist device) present (CMS/[facility]),Chronic systolic heart failure Take 3 tablets [...] daily at 500 mL/hr over 60 minutes. 02443 mL 11 12/25/2024 sotalol (Betapace) 120 MG tablet Take 1 tablet (120 mg) by mouth in the morning and 1 tablet (120 mg) before bedtime. 180 tablet 3 05/28/2024 5 documented as of this encounter Plan of Treatment Upcoming Encounters Date Type Department Care Team (Late st Contact Info) Description 04/22/2025 9:00 AM EST Ancillary Procedure [facility] [place] [address] [place] [address] documented as of this encounter Goals Goal Patient Goal Type Associated Problems Recent Progress Patient-Stated? Author LVAD Short Term Goal General On track( 11:53 AM EDT) Yes Katrin Oviedo, RN Note: - 07/04/23: Patient states he wants to attend a wedding in November in [place] LVAD Dressing Machine Operator Goal General On track( 11:53 AM EDT) [...] Modality Other Narrative 01/06/2025 4:17 PM EST [facility] EP - Remote CIED alert (non-scheduled) Name: Jose Pearson Date: 01/06/2025 : 1970 Age: 54 y.o. Indication for alert: NSVT (V>A) Device: Manufacturing Engineering Technician: Zavaleta CASE SPECIALIST-ICD Summary: NSVT event, occurring 01/03, egm does [...] documented as of this encounter Care Teams Food Dehydrator Operator Relationship Specialty Start Date End Date Herberth Perez MD [address] [place] [address] PCP - General 07/17/20 Gracia Petersen APRN [address] [place] [address] Nurse Practitioner Internal Medicine 08/06/20 Yunior Solorzano MD [address] [place] [address] Consulting Physician Gastroenterology 07/18/22 Ross Baez DO [address] [address] Surgeon Cardiothoracic Surgery 07/18/22 Edith Aleman, PRIMARY THERAPIST None VAD Coordinator 10/14/24 documented as of this encounter
--- OUTSIDE RECORDS SUMMARY | 2025-01-20 13:30 | XMS_ITS | Encounter Summary ---
Author Organization Healthcare Address [address] [place] [address] Care Team Providers Care Nailing Machine Operator Name Role Phone Herberth Perez MD Primary Care Provider [phone] Gracia Petersen MOBILE BATTERY TECHNICIAN Unavailable [phone] Yunior Solorzano MD Unavailable [phone] Ross Baez DO Unavailable [phone] Edith Aleman RN Unavailable Unavailable Encounter Details Date Type Department Care Team (Latest Contact Info) Description 01/20/2025 1:30 PM EST - 01/20/2025 11:59 PM [facility] Hospital Encounter Cardiac Imaging [address] [place] [address] ICD (implantable cardioverter-defibr illator) in place Discharge [...] drink first t janine in the morning (EYE-COURT SECURITY OFFICER) to steady your nerves or to get rid of a hangover? 0 09/19/2021 CAGE Questionnaire Score 0 022 Utilities Answer Date Recorded In the past 12 months has th e [employer], [employer], oil, or water [employer] threatened to shut off services in your [...] tabletIndications :LVAD (left ventricular assist device) present (CMS/[facility]),Chronic systolic heart failure Take 3 tablets (30 [...] every night. Delta 9 gummies purchased in [place] omeprazole (PriLOSEC) [address] capsule Take [...] daily at 1,000 mL/hr over 60 minutes. 64421 mL 11 01/08/2025 tamsulosin (Flomax) 0.4 MG [...] Description 04/22/2025 9:00 AM EST Ancillary Procedure [facility] [place] [address] [place] [address] documented as of this encounter Goals Goal Patient Goal Type Associated Problems Recent Progress Patient-Stated? Author LVAD Short Term Goal General On track( 024 11:53 AM EDT) Yes Katrin Oviedo RN Note: - 07/04/23: Patient states he wants to attend a wedding in November in [place] LVAD Halfway Goal General On track( 024 11:53 AM [...] documented as of this encounter Care Teams Nailing Machine Operator Relationship Specialty Start Date End Date Herberth Perez MD [address] [place], [place] [address] PCP - General 07/17/20 Gracia Petersen APRN [address] [place] [address] Nurse Practitioner Internal Medicine 08/06/20 Yunior Solorzano MD [address] [place] [address] Consulting Physician Gastroenterology 07/18/22 Ross Baez, [address] [address] Surgeon Cardiothoracic Surgery 07/18/22 Edith Aleman, MOLD BREAKER None VAD Coordinator 10/14/24 documented as of this encounter
--- OUTSIDE RECORDS SUMMARY | 2025-01-28 08:57 | XMS_ITS | Encounter Summary ---
Author Organization [facility] Address [address] [place] [address] Care Team Providers Care Social Work Case Manager Name Role Phone Herberth Perez MD Primary Care Provider [phone] Gracia Petersen COMBINE MECHANIC Unavailable [phone] Yunior Solorzano MD Unavailable [phone] Ross Baez DO Unavailable [phone] Edith Aleman RN Unavailable Unavailable Reason for Referral * Imaging (Routine) - Closed Specialty Diagnoses / Procedures Referred By Yared díaz Referred To Contact Cardiology Diagnoses LVAD (left ventricular assist device) present ([facility]) senior care current use of anticoagulant therapy Procedures Echo, Adult Transthoracic Complete Marti Cherry, COMBINE MECHANIC [address] [place] [address] Phone: tel: fax: Referral ID Status Reason Start Date Expiration Date V isits Requested Visits Authorized [id number] Closed Perform Procedure 10/24/2024 04/25/2026 1 1 Reason for Visit * Imaging (Routine) - Closed Specialty Diagnoses / Procedures Referred By Yared díaz Referred To Contact Cardiology Diagnoses LVAD (left ventricular assist device) present ([facility]) senior care current use of anticoagulant therapy Procedures Echo, Adult Transthoracic Complete Marti Cherry, COMBINE MECHANIC [address] [place] [address] Phone: tel: fax: Referral ID Status Reason Start Date Expiration Date V isits Requested Visits Authorized [id number] Closed Perform Procedure 10/24/2024 04/25/2026 1 1 Encounter Details Date Type Department Care Team (Latest Contact Info) Description 01/28/2025 8:57 AM EST - 01/28/2025 11:59 PM EST Hospital Encounter Cardiac Imaging [address] [place] [address] LVAD (left ventricular assist device) present ([facility]); senior care current use of anticoagulant therapy Discharge Disposition: [...] drink first t janine in the morning (EYE-JAMMER OPERATOR) to steady your nerves or to [...] tabletIndications :LVAD (left ventricular assist device) present ([facility]),Chronic systolic heart failure Take 3 tablets (30 [...] daily at 1,000 mL/hr over 60 minutes. 94099 mL 11 01/08/2025 sotalol (Betapace) 120 MG [...] Description 04/22/2025 9:00 AM EST Ancillary Procedure [facility] [place] [place] [facility] [address] [place] [address] documented as of this encounter Goals Goal Patient Goal Type Associated Problems Recent Progress Patient-Stated? Author LVAD Short Term Goal General On track( 024 11:53 AM EDT) Yes Katrin Oviedo, RN Note: - 07/04/23: Patient states he wants to attend a wedding in November in [place] LVAD Senior Care Goal General On track( 024 11:53 AM EDT) Yes Katrin Oviedo, RN Note: - 07/04/23: Patient states he wants to meet his grandchild when they are born in November documented as of this encounter Procedures Procedure Name Priority Date/Time Associated Diagnosis Comments ECHO, ADULT TRANSTHORACIC COMPLETE Routine 01/28/2025 9:38 AM EST LVAD (left ventricular assist device) present ([facility]) senior care current use of anticoagulant therapy documented in this encounter Results * ECHO, ADULT TRANSTHORACIC COMPLETE (01/28/2025 9:38 AM EST) Height 182.9 ILENE ISCV Weight 72.1 ILENE ISCV BSA 1.93 m2 ILENE ISCV LVIDd 55 mm ILENE ISCV IVSd 5 mm ILENE ISCV LVPWd 7 mm ILENE ISCV LV [...] LVAD (left ventricular assist device) present (CMS/HCC) long term care pharmacist current use of anticoagulant therapy documented in [...] documented as of this encounter Care Teams Social Work Case Manager Relationship Specialty Start Date End Date Herberth Perez MD [address] [place] [address] [place] [address] PCP - General 07/17/20 Gracia Petersen APRN [address] [place] [address] Nurse Practitioner Internal Medicine 08/06/20 Yunior Solorzano MD [address] [facility] [address] [place] [address] Consulting Physician Gastroenterology 07/18/22 Ross Baez DO [address] [phone] Surgeon Cardiothoracic Surgery 07/18/22 Edith Aleman, MANAGER OF PURCHASING None VAD Coordinator 10/14/24 documented as of this encounter
--- OUTSIDE RECORDS SUMMARY | 2025-01-28 10:00 | XMS_ITS | Encounter Summary ---
Author Organization [facility] Address [address] [place] [address] Care Team Providers Care School Psychologist Name Role Phone Herberth Perez MD Primary Care Provider [phone] Gracia Petersen PATROL MAN Unavailable [phone] Yunior Solorzano MD Unavailable [phone] Ross Baez DO Unavailable [phone] Edith Aleman RN Unavailable Unavailable Reason for Visit * Reason Comments Follow-up - VAD Post Encounter Details Date Type Department Care Team (Latest Contact Info) Description 01/28/2025 10:00 AM EST Ancillary Procedure [facility] 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 [facility] Ventricular Device Clinic Outpatient Visit Date of Service: 01/28/2025 Patient Name Jose Pearson Date of 1970 Encounter Provider: TOM ANGELO [id number] History of Present Illness I had the pleasure of seeing Jose Pearson for a follow up visit today in the Ventricular Assist Device Clinic at the [facility] at the [facility]. VAD Course Mr. Jose Pearson is [...] PGY-6/FY-2 Fellow - Division of Cardiovascular Medicine [facility] [place] DWA Dr. Orellana [1] Past Medical History: [...] asthma without status asthmaticus without complication 11/01/2021 NV (myocardial infarction) (CMS/HCC) 08/31/2020 Other cardiomyopathies (CMS/HCC) NICM (nonischemic cardiomyopathy) Pulmonary embolism 2019 - On ventilator 2.5 months and sepsis/pneumonia was cause, states pt.'s . 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 [2] Past Surgical History: Procedure Laterality Date ANKLE SURGERY N/A Ankle Surgery from [employer] CARDIAC DEFIBRILLATOR PLACEMENT N/A Implantable Cardioverter-Defibrillator from [employer] HERNIA REPAIR N/A Hernia Repair from [employer] LEFT VENTRICULAR ASSIST DEVICE Left Implantation of left ventricular assist device (LVAD) from [facility] OTHER SURGICAL HISTORY Left Left ventricular assist device placement from [employer] OTHER SURGICAL HISTORY N/A Percutaneous tracheostomy from [facility] [3] Current Outpatient Medications Medication [...] night. Delta 9 gummies purchased in [place] omeprazole (PriLOSEC) [address] capsule Take [...] daily at 1,000 mL/hr over 60 minutes. 01317 mL 11 sotalol (Betapace) 120 MG tablet [...] Cierra Orellana MD Advanced Heart Failure/Transplant Cardiology [facility] documented in this encounter Plan of Treatment Upcoming Encounters Date Type Department Care Team (Late st Contact Info) Description 04/22/2025 9:00 AM EST Ancillary Procedure [facility] [address] [place] [address] documented as of this encounter Goals Goal Patient Goal Type Associated Problems Recent Progress Patient-Stated? 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 IRON & TOTAL IRON BINDING CAPACITY, PLASMA (INCLUDES TRANSFERRIN) Add-On 01/28/2025 9:02 AM EST 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 PROTHROMBIN TIME(PT) / INR Routine 01/28/2025 9:02 AM EST LVAD (left ventricular assist device) present (CMS/HCC) [facility] current use of anticoagulant therapy CBC W/O DIFFERENTIAL Routine 01/28/2025 9:02 AM EST LVAD (left ventricular assist device) present (CMS/HCC) [facility] current use of anticoagulant therapy LACTATE DEHYDROGENASE, PLASMA Routine 01/28/2025 9:02 AM EST LVAD (left ventricular assist device) present (CMS/HCC) [facility] current use of anticoagulant therapy COMPREHENSIVE METABOLIC PANEL, PLASMA Routine 01/28/2025 9:02 AM EST LVAD (left ventricular assist device) present (CMS/HCC) [facility] current use of anticoagulant therapy documented in this encounter Results * (ABNORMAL) Iron & Total Iron Binding Capacity, Plasma (Includes Transferrin) (01/28/2025 9:02 AM EST) Iron, Plasma 11(L) 50 - 170 ug/dL 01/28/2025 12:04 PM EST [facility] Transferrin, Plasma 305 200 - 360 mg/dL 01/28/2025 12:04 PM EST [facility] Total Iron Binding Capacity, Plasma 381 240 - 450 ug/mL 01/28/2025 12:04 PM EST [facility] Transferrin Saturation 3(L) 14 - 50 % 01/28/2025 12:04 PM EST [facility] Blood Venous blood specimen / Unknown Venipuncture / Unknown 01/28/2025 9:02 AM EST 01/28/2025 10:44 AM EST us Cierra Orellana MD LAB BLOOD ORDERABLES Final Result [facility] [address] [place] [address] * (ABNORMAL) Comprehensive Metabolic Panel, Plasma (01/28/2025 9:02 AM EST) Glucose, Plasma 106(H) 74 - 99 mg/dL 01/28/2025 11:17 AM EST [facility] BUN, Plasma 15 7 - 21 mg/dL 01/28/2025 11:17 AM EST [facility] Creatinine, Plasma 0.55(L) 0.70 - 1.20 mg/dL 01/28/2025 11:17 AM EST [facility] BUN/Creatinine Ratio 27 01/28/2025 11:17 AM EST [facility] Sodium, Plasma 139 136 - 145 mmol/L 01/28/2025 11:17 AM EST [facility] Potassium, Plasma 3.9 3.6 - 4.9 mmol/L 01/28/2025 11:17 AM EST [facility] Chloride, Plasma 104 97 - 107 mmol/L 01/28/2025 11:17 AM EST [facility] CO2, Plasma 24 22 - 29 mmol/L 01/28/2025 11:17 AM EST [facility] Anion Gap 11 6 - 16 mmol/L 01/28/2025 11:17 AM EST [facility] Total Calcium, Plasma 8.1(L) 8.9 - 10.2 mg/dL 01/28/2025 11:17 AM EST [facility] Total Protein 6.9 6.3 - 7.9 g/dL 01/28/2025 11:17 AM EST [facility] Albumin, Plasma 3.2(L) 3.5 - 5.2 g/dL 01/28/2025 11:17 AM EST [facility] AST, Plasma 47 10 - 50 U/L 01/28/2025 11:17 AM EST [facility] Comment:Hemolyzed, result ma y be falsely increased. ALT, Plasma 41 10 - 50 U/L 01/28/2025 11:17 AM EST [facility] Alkaline Phosphatase, Plasma 65 40 - 115 U/L 01/28/2025 11:17 AM EST [facility] Total Bilirubin, Plasma 1.0 0.2 - 1.1 mg/dL 01/28/2025 11:17 AM EST [facility] eGFRcr 117.0 mL/min/1.7 3m*2 01/28/2025 11:17 AM EST [facility] Comment:Reported eGFRcr in m L/min/1.73m2 is based the CKD-EPI 2020 equation that does not use a race coefficient. Blood Venous blood specimen / Unknown Venipuncture / Unknown 01/28/2025 9:02 AM EST 01/28/2025 10:44 AM EST us Marti Cherry APRN LAB BLOOD ORDERABLES Final Result [facility] [address] [place] [address] * (ABNORMAL) CBC W/O Differential (01/28/2025 9:02 AM EST) WBC Count 7.34 3.70 - 10.30 10*3/uL LAB HEMATOLOGY METHOD 01/28/2025 11:23 AM EST [facility] RBC Count 4.57(L) 4.60 - 6.10 10*6/uL LAB HEMATOLOGY METHOD 01/28/2025 11:23 AM EST [facility] HGB 8.4(L) 13.7 - 17.5 g/dL LAB HEMATOLOGY METHOD 01/28/2025 11:23 AM EST [facility] HCT 29.1(L) 40.0 - 51.0 % LAB HEMATOLOGY METHOD 01/28/2025 11:23 AM EST [facility] Platelet Count 314 155 - 369 10*3/uL LAB HEMATOLOGY METHOD 01/28/2025 11:23 AM EST [facility] MCV 64(L) 79 - 98 fL LAB HEMATOLOGY METHOD 01/28/2025 11:23 AM EST [facility] MCH 18.4(L) 26.0 - 32.0 pg LAB HEMATOLOGY METHOD 01/28/2025 11:23 AM EST [facility] MCHC 28.9(L) 30.7 - 35.5 g/dL LAB HEMATOLOGY METHOD 01/28/2025 11:23 AM EST [facility] RDW 21.1(H) 11.5 - 14.5 % LAB HEMATOLOGY METHOD 01/28/2025 11:23 AM EST [facility] MPV 9.2 8.8 - 12.5 fL LAB HEMATOLOGY METHOD 01/28/2025 11:23 AM EST [facility] nRBC 0.0 <=0.0 per 100 WBCs LAB HEMATOLOGY METHOD 01/28/2025 11:23 AM EST [facility] Blood Venous blood specimen / Unknown Venipuncture / Unknown 01/28/2025 9:02 AM EST 01/28/2025 10:51 AM EST Marti Cherry [employer] [facility] LAB BLOOD ORDERABLES Final Result Performing Organization Address City/[facility]/ZIP Co de Phone Number [facility] [address] [place] [address] * Lactate Dehydrogenase, Plasma (01/28/2025 9:02 AM EST) LDH, Plasma 237 116 - 250 U/L 01/28/2025 11:17 AM EST [facility] Comment:Hemolyzed, result ma y be falsely increased. Blood Venous blood specimen / Unknown Venipuncture / Unknown 01/28/2025 9:02 AM EST 01/28/2025 10:44 AM EST Marti Cherry PATROL MAN LAB BLOOD ORDERABLES Final Result [facility] [address] [place] [address] * (ABNORMAL) N-Terminal Probnp, Plasma (01/28/2025 9:02 AM EST) N-Terminal, PROBNP, Plasma 3,594(H) 0 - 899 pg/mL 01/28/2025 11:17 AM EST [facility] Blood Venous blood specimen / Unknown Venipuncture / Unknown 01/28/2025 9:02 AM EST 01/28/2025 10:44 AM EST Marti Sumaya [place] PATROL MAN LAB BLOOD ORDERABLES Final Result Performing Organization Address [facility]/ZIP Co de Phone Number [facility] [address] [place] [address] * (ABNORMAL) Prothrombin Time/INR (01/28/2025 9:02 AM EST) Prothrombin Time 31.0(H) 12.0 - 14.3 sec LAB COAGULATION METHOD 01/28/2025 11:06 AM EST [facility] INR 3.0(H) 0.9 - 1.1 LAB COAGULATION METHOD 01/28/2025 11:06 AM EST [facility] Blood Venous blood specimen / Unknown Venipuncture / Unknown 01/28/2025 9:02 AM EST 01/28/2025 10:44 AM EST Narrative [facility] - 01/28/2025 11:06 AM EST OPTIMAL INR RANGES FOR PATIENT ON ORAL ANTICOAGULANT THERAPY Prevention of venous thromboembolism INR 2.0 to 3.0 In patients with heart disease: Atrial fibrillation INR 2.0 to 3.0 Valvular heart disease INR 2.0 to 3.0 Tissue heart valves INR 2.0 to 3.0 Mechanical prosthetic valves INR 2.5 to 3.5 Prevention of recurrent NV INR 2.5 to 3.5 Marti Shell [facility] LAB BLOOD ORDERABLES Final Result Performing Organization Address [facility] Co de Phone Number [facility] [address] [place] [address] * (ABNORMAL) Wound Culture and Gram Stain (01/21/2025 11:32 AM EST) CULTURE READING WOUND Light Growth 01/27/2025 2:28 PM EST [facility] CULTURE READING WOUND Corynebacterium amycolatum(A) 01/27/2025 2:28 PM EST [facility] Comment: This isolate has been identified using the FDA Approved Everplanser CA System The organism value for this result has been updated. These results have been appended to the previously preliminary verified report. Edited result: Previously reported as Gram positive samuel on 01/24/2025 at 0826 EST. Gram Stain Result Rare Polymorphonuclear leukocytes(A) 01/27/2025 2:28 PM EST [facility] Gram Stain Result Rare Gram positive rods(A) 01/27/2025 2:28 PM EST [facility] Gram Stain Result Rare Gram positive cocci in pairs(A) 01/27/2025 2:28 PM EST [facility] Swab Topography unknown / Unknown Non-blood Collection / Unknown 01/21/2025 11:32 AM EST 01/21/2025 12:00 PM EST Narrative [facility] - 01/27/2025 2:28 PM EST [...] LAB MICROBIOLOGY - GENERAL ORDERABLES Final Result [facility] [address] [place] [address] documented in this encounter Visit Diagnoses Diagnosis LVAD (left ventricular assist device) present (CMS/HCC)- 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 Ventricular tachycardia (CMS/HCC) Paroxysmal ventricular tachycardia PAF (paroxysmal atrial fibrillation) Atrial fibrillation NICM (nonischemic cardiomyopathy) (CMS/HCC) HFrEF (heart failure with reduced ejection fraction) Cardiac resynchronization therapy defibrillator (CLOTH PACKER-D) in place documented in this encounter Additional [...] documented as of this encounter Care Teams School Psychologist Relationship Specialty Start Date End Date Herberth Perez MD [address] [place] [address] [place] [address] PCP - General 07/17/20 Gracia Petersen APRN [address] [place] [address] Nurse Practitioner Internal Medicine 08/06/20 Yunior Solorzano MD [address] [facility] [address] [place] [address] Consulting Physician Gastroenterology 07/18/22 Ross Baez, [address] [phone] Surgeon Cardiothoracic Surgery 07/18/22 Edith Aleman, CONTINUOUS PROCESS MACHINE OPERATOR None VAD Coordinator 10/14/24 documented as of this encounter
--- OUTSIDE RECORDS SUMMARY | 2025-01-29 07:39 | XMS_ITS | Encounter Summary ---
Author Organization Healthcare Address [address] [place] [address] Care Team Providers Care Administrative Hearing Officer Name Role Phone Herberth Perez MD Primary Care Provider [phone] Gracia Petersen PLANT MAINTENANCE ENGINEER Unavailable [phone] Yunior Solorzano MD Unavailable [phone] Ross Baez DO Unavailable [phone] Edith Aleman RN Unavailable Unavailable Encounter Details Date Type Department Care Team (Latest Contact Info) Description 01/29/2025 7:39 AM EST - 01/29/2025 11:59 PM [facility] Hospital Encounter Cardiac Imaging [address] [place] [address] Biventricular ICD (implantable cardioverter-defibril lator) in place [...] place to sleep or slept in a fpc (including now)? No 12/19/2023 PHQ-9 Answer Date [...] any time in the past 12 m [facility], were you homeless or living in a fpc (including now)? No 04/08/2024 CAGE ASSESSMENT Answer [...] drink first t janine in the morning (EYE-BALL POINTS INSPECTOR) to steady your nerves or to get rid of a hangover? 0 09/19/2021 CAGE Questionnaire Score 0 022 Utilities Answer Date Recorded In the past 12 months has th e [employer], [employer], oil, or water [employer] threatened to shut off services in your [...] every night. Delta 9 gummies purchased in [place] omeprazole (PriLOSEC) [address] capsule Take [...] daily at 1,000 mL/hr over 60 minutes. 798[address] mL 11 01/08/2025 sotalol (Betapace) 120 MG [...] 04/22/2025 9:00 AM EST Ancillary Procedure [facility] [place] [address] [place] [address] documented as of this encounter Goals Goal Patient Goal Type Associated Problems Recent Progress Patient-Stated? Author LVAD Short Term Goal General On track( 024 11:53 AM EDT) Yes Katrin Oviedo RN Note: - 07/04/23: Patient states he wants to attend a wedding in November in [place] LVAD Radiosonde Specialist Goal General On track( 024 11:53 [...] Modality Other Narrative 01/29/2025 9:29 AM EST [facility] EP - Remote CIED alert (non-scheduled) Name: Jose Pearson Date: 01/29/2025 : 1970 Age: 54 y.o. Indication for alert: VT event, treated with ATPx1 Device: Equipment Cleaner: Zavaleta IMPORT EXPORT COORDINATOR-ICD Summary: As above, occurring yesterday at 1:43pm. [...] documented as of this encounter Care Teams Administrative Hearing Officer Relationship Specialty Start Date End Date Herberth Perez MD [address] [place] [address] [place] [address] PCP - General 07/17/20 Gracia Petersen APRN [address] [place] [address] Nurse Practitioner Internal Medicine 08/06/20 Yunior Solorzano MD [address] [place] [address] Consulting Physician Gastroenterology 07/18/22 Ross Baez DO [address] [address] Surgeon Cardiothoracic Surgery 07/18/22 Edith Aleman, VARITYPIST None VAD Coordinator 10/14/24 documented as of this encounter
--- OUTSIDE RECORDS SUMMARY | 2025-02-24 14:53 | XMS_ITS | Encounter Summary ---
Author Organization [employer] ([place], [place], [place], [place], [place]) Address [address] [place] [address] Care Team Providers Care Paste Worker Name Role Phone Unavailable Primary Care Provider Stefan pond Encounter Details Date Type Department Care Team (Late st Contact Info) Description 03/28/2018 Transcribed Document [facility] [place] [address] [place] [address] ProviderMg MD [facility] [place] [address] Social History Tobacco Use Types Packs/Day Years Used Date Smoking Tobacco: Never Assessed Sex and Gender Information Value Date Recorded Sex Assigned at Not on file Legal Sex Male 1:09 PM CDT Gender Identity Not on file Sexual Orientation Not on file documented as of this encounter Miscellaneous Notes * [employer]ner Conversion Note - Historical ProviderMD - 03/28/2018 1:21 PM ASSOCIATE MARKETING MANAGER Education-Smoking Cessation Entered On: 03/28/2018 14:57 EST [...] BRIAN BEASLEY RN - 03/28/2018 14:57 EST Electronically signed by Morales Mejia Conversion Industrial Coffee Grinder Cerjohnnie at 06/19/2022 11:10 PM CDT documented in this encounter Plan of Treatment Not on file documented as of this encounter Visit Diagnoses Not on filedocumented in this encounter
--- OUTSIDE RECORDS SUMMARY | 2025-02-24 14:53 | XMS_ITS | Encounter Summary ---
Author Organization [facility] Address [address] [place] [address] Care Team Providers Care Marketing Assistant Name Role Phone Herberth Perez MD Primary Care Provider [phone] Katrin Oviedo RN Unavailable [phone] Zaida Lafleur STERILIZER MACHINE OPERATOR Unavailable [phone] Gracia Petersen STERILIZER MACHINE OPERATOR Unavailable Yunior Solorzano MD Unavailable [phone] Ross Baez DO Unavailable [phone] Edith Aleman RN Unavailable Unavailable Encounter Details Date Type Department Care Team (Late st Contact Info) Description 01/21/2020 Legacy OTTR Encounter Historical OTTR [address] [place] [address] Katrin Oviedo, RN [facility] [address] [id number] Social History Tobacco Use Types Packs/Day Years [...] and recheck INR tomorrow. Prescription sent to [facility] for 2.5mg phytonadione once. Dr. De Los Santos, LORI Lafleur, Sanjay White, VAD coordinators notified. * Progress Notes - Katrin Oviedo RN - 07/07/2020 5:21 PM EDT Patient extremely tired, sleeping throughout day, occasionally incontinent of urine since starting dantrolene per [facility]. Discussed with Sanjay White; these could be [...] 06/03/2020 3:20 PM EDT Patient seen at [facility]. Verified with Sanjay White [...] is positive for Covid-[address] Ryaa; will have home health culture driveline (waiting [...] 11:21 AM EST Patient's bronch moved to [facility] with Dr. Sanchez. ECHO performed to assess [...] Wilson RN - 11/25/2019 3:58 PM EDT [facility] ED Doctor Yared contacted [facility] Coordinator to report that patient's CXR showed mild atelectasis on RLL and increased interstitial markings. Negative for PNA. Lab work revealed markedly elevated D-Dimer 1210. CT chest ordered to rule out PE. * Progress Notes - Niecy Wilson RN - 11/25/2019 11:21 AM EDT Patient's contacted [facility] Coordinator to report increased SOA while sitting [...] friends. Pt's eldest step-son Dwain currently works time study technologist and is a student time study technologist. Pt also reports multiple additional family members [...] Pt also denied any legal problems or spiritism restrictions on medical care. Pt scored 25 [...] in SCM or All Docs (Txp SW #[id number], pager [phone]). * Progress Notes - Heber Page - 05/17/2019 1:30 PM EDT Colonoscopy Report is scanned into OTTR. 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, ablation 2019 at [facility], previous RHC done in 2018 or 2019 at [facility], colonoscopy done 2019 at [facility], admitted to [facility] on 05/02/19 and also in Mar 2019, Cardiomems implanted last week (notified Heber Cornejo to request records for ablation, most recent RHC, colonoscopy and admissions) pt receives disability benefits, emailed map with appt info to [email or web address] Kailey Shetty notified to cancel appt on 05/26, notified MD Baez of the above and emailed eval notified to the eval listserv * Progress Notes - Shelbie Garcia - 05/13/2019 5:25 PM EDT per email from MD Baez: I received a phone call in the middle of [facility] and did not get the name [...] set up an appt with his regular Feed Crusher for . I explained beingtransferred to or [...] Description 04/22/2025 9:00 AM EST Ancillary Procedure [facility] [place] [facility] [address] [place] [address] documented as of this encounter Procedures Procedure [...] ORDERABLES Final R esult Performing Organization Address City/[facility]/ZIP Co de Phone Number EXTERNAL LAB * OTTR LAB RESULTS (MANUAL) (06/16/2020 10:46 AM EDT) External Estimated GFR 148.12 EXTERNAL LAB 06/16/2020 10:4 6 AM EDT Narrative EXTERNAL LAB - 06/16/2020 12:27 PM EDT Automated LAB Interface us Historical Provider LAB BLOOD ORDERABLES Final R esult Performing Organization Address City/[facility]/ZIP Co de Phone Number EXTERNAL LAB * [...] EXTERNAL LAB - 12/25/2019 9:37 AM EDT [facility] Historical Provider LAB BLOOD ORDERABLES Final R esult Performing Organization Address City/[facility]/ZIP Co de Phone Number EXTERNAL LAB * [...] EXTERNAL LAB - 12/17/2019 11:04 AM EDT [facility] Historical Provider LAB BLOOD ORDERABLES Final [...] EXTERNAL LAB - 11/25/2019 2:41 PM EDT [facility] Historical Provider LAB BLOOD ORDERABLES Final [...] EXTERNAL LAB - 11/08/2019 9:10 AM EDT [facility] Historical Provider LAB BLOOD ORDERABLES Final [...] EXTERNAL LAB - 11/05/2019 10:09 AM EDT [facility] us Historical Provider LAB BLOOD ORDERABLES [...] EXTERNAL LAB - 10/22/2019 4:46 PM EDT [facility] Historical Provider LAB BLOOD ORDERABLES Final R esult Performing Organization Address [facility] de Phone Number EXTERNAL LAB * [...] EXTERNAL LAB - 09/27/2019 5:06 PM EDT [facility] Historical Provider LAB BLOOD ORDERABLES Final R esult Performing Organization Address [facility] de Phone Number EXTERNAL LAB * OTTR LAB RESULTS (MANUAL) (08/14/2019 3:03 AM EDT) External Estimated GFR 282.34 EXTERNAL LAB 08/14/2019 3:03 AM EDT Narrative EXTERNAL LAB - 08/14/2019 4:51 AM EDT Automated LAB Interface Historical Provider LAB BLOOD ORDERABLES Final R esult Performing Organization Address [facility] de Phone Number EXTERNAL LAB * OTTR LAB RESULTS (MANUAL) (08/12/2019 2:33 AM EDT) External Estimated GFR 350.76 EXTERNAL LAB 08/12/2019 2:33 AM EDT Narrative EXTERNAL LAB - 08/12/2019 3:13 AM EDT Automated LAB Interface Historical Provider LAB BLOOD ORDERABLES Final R esult Performing Organization Address City/[facility]/ZIP Co de Phone Number EXTERNAL LAB * OTTR LAB RESULTS (MANUAL) (08/10/2019 4:10 AM EDT) External Estimated GFR 324.78 EXTERNAL LAB 08/10/2019 4:10 AM EDT Narrative EXTERNAL LAB - 08/10/2019 5:18 AM EDT Automated LAB Interface Historical Provider LAB BLOOD ORDERABLES Final R esult Performing Organization Address City/[facility]/ZIP Co de Phone Number EXTERNAL LAB * OTTR LAB RESULTS (MANUAL) (08/10/2019 2:10 AM EDT) Pathologist [facility] External Estimated GFR 337.31 EXTERNAL LAB 08/10/2019 2:10 AM EDT Narrative EXTERNAL LAB - 08/10/2019 3:27 AM EDT Automated LAB Interface Historical Provider LAB BLOOD ORDERABLES Final R esult Performing Organization Address [facility] de Phone Number EXTERNAL LAB * OTTR LAB RESULTS (MANUAL) (08/09/2019 1:59 AM EDT) Pathologist [facility] External Estimated GFR 256.77 EXTERNAL LAB 08/09/2019 1:59 AM EDT Narrative EXTERNAL LAB - 08/09/2019 3:17 AM EDT Automated LAB Interface Historical Provider LAB BLOOD ORDERABLES Final R esult Performing Organization Address [facility] de Phone Number EXTERNAL LAB * OTTR LAB RESULTS (MANUAL) (08/07/2019 2:08 AM EDT) Pathologist [facility] External Estimated GFR 235.22 EXTERNAL LAB 08/07/2019 2:08 AM EDT Narrative EXTERNAL LAB - 08/07/2019 6:05 AM EDT Automated LAB Interface Historical Provider LAB BLOOD ORDERABLES Final R esult Performing Organization Address City/[facility] Co de Phone Number EXTERNAL LAB * OTTR LAB RESULTS (MANUAL) (08/06/2019 9:24 AM EDT) Pathologist [facility] External Estimated GFR 235.22 EXTERNAL LAB 08/06/2019 9:24 AM EDT Narrative EXTERNAL LAB - 08/06/2019 10:54 AM EDT Automated LAB Interface Historical Provider LAB BLOOD ORDERABLES Final R esult Performing Organization Address [facility] de Phone Number EXTERNAL LAB * OTTR LAB RESULTS (MANUAL) (08/05/2019 4:52 AM EDT) External Estimated GFR 273.31 EXTERNAL LAB 08/05/2019 4:52 AM EDT Narrative EXTERNAL LAB - 08/05/2019 6:21 AM EDT Automated LAB Interface Historical Provider LAB BLOOD ORDERABLES Final R esult Performing Organization Address [facility] de Phone Number EXTERNAL LAB * OTTR LAB RESULTS (MANUAL) (08/04/2019 1:42 AM EDT) External Estimated GFR 228.77 EXTERNAL LAB 08/04/2019 1:42 AM EDT Narrative EXTERNAL LAB - 08/04/2019 6:13 AM EDT Automated LAB Interface Historical Provider LAB BLOOD ORDERABLES Final R esult Performing Organization Address [facility] de Phone Number EXTERNAL LAB * OTTR LAB RESULTS (MANUAL) (08/03/2019 3:37 AM EDT) External Estimated GFR 256.77 EXTERNAL LAB 08/03/2019 3:37 AM EDT Narrative EXTERNAL LAB - 08/03/2019 4:21 AM EDT Automated LAB Interface us Historical Provider LAB BLOOD ORDERABLES Final R esult Performing Organization Address [facility] Co de Phone Number EXTERNAL LAB * OTTR LAB RESULTS (MANUAL) (08/02/2019 3:17 AM EDT) External Estimated GFR 264.80 EXTERNAL LAB 08/02/2019 3:17 AM EDT Narrative EXTERNAL LAB - 08/02/2019 3:57 AM EDT Automated LAB Interface us Historical Provider LAB BLOOD ORDERABLES Final R esult Performing Organization Address City/[facility] Co de Phone Number EXTERNAL LAB * OTTR LAB RESULTS (MANUAL) (07/31/2019 2:26 AM EDT) External Estimated GFR 273.31 EXTERNAL LAB 07/31/2019 2:26 AM EDT Narrative EXTERNAL LAB - 07/31/2019 6:59 AM EDT Automated LAB Interface Historical Provider LAB BLOOD ORDERABLES Final R esult Performing Organization Address [facility] de Phone Number EXTERNAL LAB * OTTR LAB RESULTS (MANUAL) (07/29/2019 3:39 AM EDT) External Estimated GFR 242.02 EXTERNAL LAB 07/29/2019 3:39 AM EDT Narrative EXTERNAL LAB - 07/29/2019 7:09 AM EDT Automated LAB Interface Historical Provider LAB BLOOD ORDERABLES Final R esult Performing Organization Address [facility] de Phone Number EXTERNAL LAB * OTTR LAB RESULTS (MANUAL) (07/28/2019 4:04 AM EDT) External Estimated GFR 242.02 EXTERNAL LAB 07/28/2019 4:04 AM EDT Narrative EXTERNAL LAB - 07/28/2019 4:51 AM EDT Automated LAB Interface Historical Provider LAB BLOOD ORDERABLES Final R esult Performing Organization Address [facility] Co de Phone Number EXTERNAL LAB * OTTR LAB RESULTS (MANUAL) (07/26/2019 5:34 AM EDT) External Estimated GFR 242.02 EXTERNAL LAB 07/26/2019 5:34 AM EDT Narrative EXTERNAL LAB - 07/26/2019 6:03 AM EDT Automated LAB Interface us Historical Provider LAB BLOOD ORDERABLES Final R esult Performing Organization Address City/[facility] de Phone Number EXTERNAL LAB * OTTR LAB RESULTS (MANUAL) (07/24/2019 2:17 AM EDT) External Estimated GFR 291.94 EXTERNAL LAB 07/24/2019 2:17 AM EDT Narrative EXTERNAL LAB - 07/24/2019 2:50 AM EDT Automated LAB Interface us Historical Provider LAB BLOOD ORDERABLES Final R esult Performing Organization Address [facility] de Phone Number EXTERNAL LAB * OTTR LAB RESULTS (MANUAL) (07/22/2019 12:33 PM EDT) External Estimated GFR 228.77 EXTERNAL LAB 07/22/2019 12:3 3 PM EDT Narrative EXTERNAL LAB - 07/22/2019 1:26 PM EDT Automated LAB Interface us Historical Provider LAB BLOOD ORDERABLES Final R esult Performing Organization Address [facility] de Phone Number EXTERNAL LAB * OTTR LAB RESULTS (MANUAL) (07/22/2019 2:35 AM EDT) External Estimated GFR 242.02 EXTERNAL LAB 07/22/2019 2:35 AM EDT Narrative EXTERNAL LAB - 07/22/2019 3:30 AM EDT Automated LAB Interface us Historical Provider LAB BLOOD ORDERABLES Final R esult Performing Organization Address [facility] de Phone Number EXTERNAL LAB * OTTR LAB RESULTS (MANUAL) (07/21/2019 5:39 PM EDT) External Estimated GFR 249.19 EXTERNAL LAB 07/21/2019 5:39 PM EDT Narrative EXTERNAL LAB - 07/21/2019 6:05 PM EDT Automated LAB Interface us Historical Provider LAB BLOOD ORDERABLES Final R esult Performing Organization Address [facility] de Phone Number EXTERNAL LAB * OTTR LAB RESULTS (MANUAL) (07/21/2019 3:13 AM EDT) External Estimated GFR 228.77 EXTERNAL LAB 07/21/2019 3:13 AM EDT Narrative EXTERNAL LAB - 07/21/2019 7:02 AM EDT Automated LAB Interface Historical Provider LAB BLOOD ORDERABLES Final R esult EXTERNAL LAB * OTTR LAB RESULTS (MANUAL) (07/20/2019 2:25 PM EDT) External Estimated GFR 222.64 EXTERNAL LAB 07/20/2019 2:2 5 PM EDT Narrative EXTERNAL LAB - 07/20/2019 4:27 PM EDT Automated LAB Interface Historical Provider LAB BLOOD ORDERABLES Final R esult Performing Organization Address [facility]/ZIP Co de Phone Number EXTERNAL LAB * OTTR LAB RESULTS (MANUAL) (07/20/2019 1:55 AM EDT) External Estimated GFR 211.26 EXTERNAL LAB 07/20/2019 1:55 AM EDT Narrative EXTERNAL LAB - 07/20/2019 2:29 AM EDT Automated LAB Interface Historical Provider LAB BLOOD ORDERABLES Final R esult Performing Organization Address [facility]/ZIP Co de Phone Number EXTERNAL LAB * [...] ORDERABLES Final R esult Performing Organization Address [facility] de Phone Number EXTERNAL LAB * OTTR LAB RESULTS (MANUAL) (07/18/2019 3:30 AM EDT) External Estimated GFR 205.97 EXTERNAL LAB 07/18/2019 3:30 AM EDT Narrative EXTERNAL LAB - 07/18/2019 4:07 AM EDT Automated LAB Interface Historical Provider LAB BLOOD ORDERABLES Final R esult Performing Organization Address [facility] de Phone Number EXTERNAL LAB * OTTR LAB RESULTS (MANUAL) (07/17/2019 3:33 AM EDT) External Estimated GFR 222.64 EXTERNAL LAB 07/17/2019 3:33 AM EDT Narrative EXTERNAL LAB - 07/17/2019 6:36 AM EDT Automated LAB Interface Historical Provider LAB BLOOD ORDERABLES Final R esult Performing Organization Address [facility] de Phone Number EXTERNAL LAB * OTTR LAB RESULTS (MANUAL) (07/16/2019 1:11 AM EDT) External Estimated GFR 200.92 EXTERNAL LAB 07/16/2019 1:11 AM EDT Narrative EXTERNAL LAB - 07/16/2019 2:24 AM EDT Automated LAB Interface us Historical Provider LAB BLOOD ORDERABLES Final R esult Performing Organization Address [facility] Co de Phone Number EXTERNAL LAB * [...] ORDERABLES Final R esult Performing Organization Address [facility]/ZIP Co de Phone Number EXTERNAL LAB * OTTR LAB RESULTS (MANUAL) (07/13/2019 4:51 AM EDT) External Estimated GFR 273.31 EXTERNAL LAB 07/13/2019 4:51 AM EDT Narrative EXTERNAL LAB - 07/13/2019 6:25 AM EDT Automated LAB Interface us Historical Provider LAB BLOOD ORDERABLES Final R esult Performing Organization Address [facility]/ZIP Co de Phone Number EXTERNAL LAB * [...] ORDERABLES Final R esult Performing Organization Address [facility] de Phone Number EXTERNAL LAB * OTTR LAB RESULTS (MANUAL) (07/11/2019 8:53 PM EDT) External Estimated GFR 205.97 EXTERNAL LAB 07/11/2019 8:53 PM EDT Narrative EXTERNAL LAB - 07/11/2019 9:33 PM EDT Automated LAB Interface Historical Provider LAB BLOOD ORDERABLES Final R esult Performing Organization Address [facility] de Phone Number EXTERNAL LAB * OTTR LAB RESULTS (MANUAL) (07/11/2019 4:30 AM EDT) External Estimated GFR 235.22 EXTERNAL LAB 07/11/2019 4:30 AM EDT Narrative EXTERNAL LAB - 07/11/2019 6:41 AM EDT Automated LAB Interface Historical Provider LAB BLOOD ORDERABLES Final R esult Performing Organization Address [facility] de Phone Number EXTERNAL LAB * OTTR LAB RESULTS (MANUAL) (07/10/2019 4:26 PM EDT) External Estimated GFR 211.26 EXTERNAL LAB 07/10/2019 4:26 PM EDT Narrative EXTERNAL LAB - 07/10/2019 4:57 PM EDT Automated LAB Interface us Historical Provider LAB BLOOD ORDERABLES Final R esult Performing Organization Address [facility] de Phone Number EXTERNAL LAB * OTTR LAB RESULTS (MANUAL) (07/10/2019 4:14 AM EDT) External Estimated GFR 264.80 EXTERNAL LAB 07/10/2019 4:14 AM EDT Narrative EXTERNAL LAB - 07/10/2019 5:26 AM EDT Automated LAB Interface Historical Provider LAB BLOOD ORDERABLES Final R esult Performing Organization Address [facility] de Phone Number EXTERNAL LAB * OTTR LAB RESULTS (MANUAL) (07/09/2019 6:57 PM EDT) External Estimated GFR 211.26 EXTERNAL LAB 07/09/2019 6:57 PM EDT Narrative EXTERNAL LAB - 07/09/2019 7:31 PM EDT Automated LAB Interface us Historical Provider LAB BLOOD ORDERABLES Final R esult Performing Organization Address City/[facility] de Phone Number EXTERNAL LAB * OTTR LAB RESULTS (MANUAL) (07/09/2019 3:30 PM EDT) External Estimated GFR 222.64 EXTERNAL LAB 07/09/2019 3:30 PM EDT Narrative EXTERNAL LAB - 07/09/2019 4:10 PM EDT Automated LAB Interface Historical Provider LAB BLOOD ORDERABLES Final R esult Performing Organization Address [facility] de Phone Number EXTERNAL LAB * OTTR LAB RESULTS (MANUAL) (07/09/2019 4:06 AM EDT) External Estimated GFR 228.77 EXTERNAL LAB 07/09/2019 4:06 AM EDT Narrative EXTERNAL LAB - 07/09/2019 4:46 AM EDT Automated LAB Interface Historical Provider LAB BLOOD ORDERABLES Final R esult Performing Organization Address [facility] Co de Phone Number EXTERNAL LAB * OTTR LAB RESULTS (MANUAL) (07/08/2019 4:11 PM EDT) External Estimated GFR 228.77 EXTERNAL LAB 07/08/2019 4:11 PM EDT Narrative EXTERNAL LAB - 07/08/2019 4:39 PM EDT Automated LAB Interface us Historical Provider LAB BLOOD ORDERABLES Final R esult Performing Organization Address [facility]/ZIP Co de Phone Number EXTERNAL LAB * OTTR LAB RESULTS (MANUAL) (07/08/2019 4:11 AM EDT) External Estimated GFR 273.31 EXTERNAL LAB 07/08/2019 4:11 AM EDT Narrative EXTERNAL LAB - 07/08/2019 5:04 AM EDT Automated LAB Interface Historical Provider LAB BLOOD ORDERABLES Final R esult Performing Organization Address [facility] de Phone Number EXTERNAL LAB * OTTR LAB RESULTS (MANUAL) (07/07/2019 3:25 PM EDT) Pathologist [facility] External Estimated GFR 324.78 EXTERNAL LAB 07/07/2019 3:25 PM EDT Narrative EXTERNAL LAB - 07/07/2019 4:30 PM EDT Automated LAB Interface Historical Provider LAB BLOOD ORDERABLES Final R esult Performing Organization Address [facility] de Phone Number EXTERNAL LAB * OTTR LAB RESULTS (MANUAL) (07/07/2019 2:04 AM EDT) Pathologist [facility] External Estimated GFR 273.31 EXTERNAL LAB 07/07/2019 2:04 AM EDT Narrative EXTERNAL LAB - 07/07/2019 2:38 AM EDT Automated LAB Interface Historical Provider LAB BLOOD ORDERABLES Final R esult Performing Organization Address [facility] de Phone Number EXTERNAL LAB * OTTR LAB RESULTS (MANUAL) (07/06/2019 9:56 PM EDT) External Estimated GFR 302.17 EXTERNAL LAB 07/06/2019 9:56 PM EDT Narrative EXTERNAL LAB - 07/06/2019 10:35 PM EDT Automated LAB Interface Historical Provider LAB BLOOD ORDERABLES Final R esult Performing Organization Address [facility] Co de Phone Number EXTERNAL LAB * OTTR LAB RESULTS (MANUAL) (07/06/2019 2:08 AM EDT) External Estimated GFR 302.17 EXTERNAL LAB 07/06/2019 2:08 AM EDT Narrative EXTERNAL LAB - 07/06/2019 7:31 AM EDT Automated LAB Interface Historical Provider LAB BLOOD ORDERABLES Final R esult Performing Organization Address City/[facility] de Phone Number EXTERNAL LAB * OTTR LAB RESULTS (MANUAL) (07/05/2019 8:40 PM EDT) External Estimated GFR 324.78 EXTERNAL LAB 07/05/2019 8:40 PM EDT Narrative EXTERNAL LAB - 07/05/2019 9:15 PM EDT Automated LAB Interface Historical Provider LAB BLOOD ORDERABLES Final R esult Performing Organization Address [facility] de Phone Number EXTERNAL LAB * OTTR LAB RESULTS (MANUAL) (07/05/2019 12:25 PM EDT) External Estimated GFR 264.80 EXTERNAL LAB 07/05/2019 12:2 5 PM EDT Narrative EXTERNAL LAB - 07/05/2019 1:07 PM EDT Automated LAB Interface Historical Provider LAB BLOOD ORDERABLES Final R esult Performing Organization Address [facility] de Phone Number EXTERNAL LAB * OTTR LAB RESULTS (MANUAL) (07/05/2019 2:44 AM EDT) External Estimated GFR 337.31 EXTERNAL LAB 07/05/2019 2:44 AM EDT Narrative EXTERNAL LAB - 07/05/2019 3:33 AM EDT Automated LAB Interface Historical Provider LAB BLOOD ORDERABLES Final R esult Performing Organization Address City/[facility]/ZIP Co de Phone Number EXTERNAL LAB * OTTR LAB RESULTS (MANUAL) (07/04/2019 4:08 PM EDT) External Estimated GFR 324.78 EXTERNAL LAB 07/04/2019 4:08 PM EDT Narrative EXTERNAL LAB - 07/04/2019 4:41 PM EDT Automated LAB Interface us Historical Provider LAB BLOOD ORDERABLES Final R esult Performing Organization Address [facility] de Phone Number EXTERNAL LAB * OTTR LAB RESULTS (MANUAL) (07/04/2019 3:07 AM EDT) Pathologist [facility] External Estimated GFR 313.10 EXTERNAL LAB 07/04/2019 3:07 AM EDT Narrative EXTERNAL LAB - 07/04/2019 6:46 AM EDT Automated LAB Interface Historical Provider LAB BLOOD ORDERABLES Final R esult Performing Organization Address [facility] de Phone Number EXTERNAL LAB * OTTR LAB RESULTS (MANUAL) (07/03/2019 11:53 PM EDT) Pathologist [facility] External Estimated GFR 302.17 EXTERNAL LAB 07/03/2019 11:5 3 PM EDT Narrative EXTERNAL LAB - 07/04/2019 12:30 AM EDT Automated LAB Interface Historical Provider LAB BLOOD ORDERABLES Final R esult Performing Organization Address [facility] de Phone Number EXTERNAL LAB * OTTR LAB RESULTS (MANUAL) (07/03/2019 4:42 PM EDT) Pathologist [facility] External Estimated GFR 324.78 EXTERNAL LAB 07/03/2019 4:42 PM EDT Narrative EXTERNAL LAB - 07/03/2019 5:19 PM EDT Automated LAB Interface Historical Provider LAB BLOOD ORDERABLES Final R esult Performing Organization Address [facility] de Phone Number EXTERNAL LAB * OTTR LAB RESULTS (MANUAL) (07/03/2019 2:17 AM EDT) Pathologist [facility] External Estimated GFR 482.47 EXTERNAL LAB 07/03/2019 2:17 AM EDT Narrative EXTERNAL LAB - 07/03/2019 3:02 AM EDT Automated LAB Interface Historical Provider LAB BLOOD ORDERABLES Final R esult Performing Organization Address [facility] Co de Phone Number EXTERNAL LAB * OTTR LAB RESULTS (MANUAL) (07/02/2019 2:31 AM EDT) External Estimated GFR 249.19 EXTERNAL LAB 07/02/2019 2:31 AM EDT Narrative EXTERNAL LAB - 07/02/2019 4:08 AM EDT Automated LAB Interface us Historical Provider LAB BLOOD ORDERABLES Final R esult Performing Organization Address City/[facility]/ZIP Co de Phone Number EXTERNAL LAB * OTTR LAB RESULTS (MANUAL) (07/01/2019 3:10 PM EDT) External Estimated GFR 291.94 EXTERNAL LAB 07/01/2019 3:10 PM EDT Narrative EXTERNAL LAB - 07/01/2019 3:47 PM EDT Automated LAB Interface us Historical Provider LAB BLOOD ORDERABLES Final R esult Performing Organization Address [facility] Co de Phone Number EXTERNAL LAB * OTTR LAB RESULTS (MANUAL) (07/01/2019 1:57 AM EDT) Pathologist [facility] External Estimated GFR 200.92 EXTERNAL LAB 07/01/2019 1:57 AM EDT Narrative EXTERNAL LAB - 07/01/2019 3:06 AM EDT Automated LAB Interface us Historical Provider LAB BLOOD ORDERABLES Final R esult Performing Organization Address [facility] Co de Phone Number EXTERNAL LAB * OTTR LAB RESULTS (MANUAL) (06/30/2019 3:28 PM EDT) External Estimated GFR 249.19 EXTERNAL LAB 06/30/2019 3:28 PM EDT Narrative EXTERNAL LAB - 06/30/2019 4:03 PM EDT Automated LAB Interface us Historical Provider LAB BLOOD ORDERABLES Final R esult EXTERNAL LAB * OTTR LAB RESULTS (MANUAL) (06/30/2019 2:34 AM EDT) Pathologist [facility] External Estimated GFR 302.17 EXTERNAL LAB 06/30/2019 2:34 AM EDT Narrative EXTERNAL LAB - 06/30/2019 3:20 AM EDT Automated LAB Interface Historical Provider LAB BLOOD ORDERABLES Final R esult Performing Organization Address [facility] de Phone Number EXTERNAL LAB * OTTR LAB RESULTS (MANUAL) (06/29/2019 1:34 PM EDT) Pathologist [facility] External Estimated GFR 256.77 EXTERNAL LAB 06/29/2019 1:34 PM EDT Narrative EXTERNAL LAB - 06/29/2019 2:50 PM EDT Automated LAB Interface Historical Provider LAB BLOOD ORDERABLES Final R esult Performing Organization Address [facility] de Phone Number EXTERNAL LAB * OTTR LAB RESULTS (MANUAL) (06/29/2019 3:33 AM EDT) Pathologist [facility] External Estimated GFR 256.77 EXTERNAL LAB 06/29/2019 3:33 AM EDT Narrative EXTERNAL LAB - 06/29/2019 4:27 AM EDT Automated LAB Interface [facility] Provider LAB BLOOD ORDERABLES Final R esult Performing Organization Address [facility] de Phone Number EXTERNAL LAB * OTTR LAB RESULTS (MANUAL) (06/28/2019 4:27 PM EDT) Pathologist [facility] External Estimated GFR 235.22 EXTERNAL LAB 06/28/2019 4:27 PM EDT Narrative EXTERNAL LAB - 06/28/2019 4:58 PM EDT Automated LAB Interface Historical Provider LAB BLOOD ORDERABLES Final R esult Performing Organization Address [facility] Co de Phone Number EXTERNAL LAB * OTTR LAB RESULTS (MANUAL) (06/28/2019 3:42 AM EDT) Pathologist [facility] External Estimated GFR 273.31 EXTERNAL LAB 06/28/2019 3:42 AM EDT Narrative EXTERNAL LAB - 06/28/2019 6:32 AM EDT Automated LAB Interface Historical Provider LAB BLOOD ORDERABLES Final R esult Performing Organization Address [facility] de Phone Number EXTERNAL LAB * OTTR LAB RESULTS (MANUAL) (06/27/2019 4:13 PM EDT) External Estimated GFR 222.64 EXTERNAL LAB 06/27/2019 4:13 PM EDT Narrative EXTERNAL LAB - 06/27/2019 4:50 PM EDT Automated LAB Interface us Historical Provider LAB BLOOD ORDERABLES Final R esult Performing Organization Address [facility] de Phone Number EXTERNAL LAB * OTTR LAB RESULTS (MANUAL) (06/27/2019 9:47 AM EDT) External Estimated GFR 216.81 EXTERNAL LAB 06/27/2019 9:47 AM EDT Narrative EXTERNAL LAB - 06/27/2019 10:25 AM EDT Automated LAB Interface us Historical Provider LAB BLOOD ORDERABLES Final R esult Performing Organization Address [facility] de Phone Number EXTERNAL LAB * OTTR LAB RESULTS (MANUAL) (06/27/2019 4:04 AM EDT) External Estimated GFR 222.64 EXTERNAL LAB 06/27/2019 4:04 AM EDT Narrative EXTERNAL LAB - 06/27/2019 4:55 AM EDT Automated LAB Interface Historical Provider LAB BLOOD ORDERABLES Final R esult Performing Organization Address City/[facility]/ZIP Co de Phone Number EXTERNAL LAB * OTTR LAB RESULTS (MANUAL) (06/26/2019 5:02 PM EDT) External Estimated GFR 211.26 EXTERNAL LAB 06/26/2019 5:02 PM EDT Narrative EXTERNAL LAB - 06/26/2019 5:45 PM EDT Automated LAB Interface Historical Provider LAB BLOOD ORDERABLES Final R esult Performing Organization Address City/[facility] de Phone Number EXTERNAL LAB * OTTR LAB RESULTS (MANUAL) (06/26/2019 11:00 AM EDT) External Estimated GFR 211.26 EXTERNAL LAB 06/26/2019 11:0 0 AM EDT Narrative EXTERNAL LAB - 06/26/2019 12:05 PM EDT Automated LAB Interface Historical Provider LAB BLOOD ORDERABLES Final R esult Performing Organization Address [facility] de Phone Number EXTERNAL LAB * OTTR LAB RESULTS (MANUAL) (06/26/2019 3:58 AM EDT) External Estimated GFR 228.77 EXTERNAL LAB 06/26/2019 3:58 AM EDT Narrative EXTERNAL LAB - 06/26/2019 5:44 AM EDT Automated LAB Interface Historical Provider LAB BLOOD ORDERABLES Final R esult Performing Organization Address [facility] de Phone Number EXTERNAL LAB * OTTR LAB RESULTS (MANUAL) (06/25/2019 3:46 PM EDT) External Estimated GFR 222.64 EXTERNAL LAB 06/25/2019 3:46 PM EDT Narrative EXTERNAL LAB - 06/25/2019 4:23 PM EDT Automated LAB Interface Historical Provider LAB BLOOD ORDERABLES Final R esult Performing Organization Address [facility] de Phone Number EXTERNAL LAB * OTTR LAB RESULTS (MANUAL) (06/25/2019 4:04 AM EDT) External Estimated GFR 235.22 EXTERNAL LAB 06/25/2019 4:04 AM EDT Narrative EXTERNAL LAB - 06/25/2019 4:57 AM EDT Automated LAB Interface Historical Provider LAB BLOOD ORDERABLES Final R esult Performing Organization Address [facility]/ZIP Co de Phone Number EXTERNAL LAB * OTTR LAB RESULTS (MANUAL) (06/23/2019 11:46 AM EDT) External Estimated GFR 133.45 EXTERNAL LAB 06/23/2019 11:4 6 AM EDT Narrative EXTERNAL LAB - 06/23/2019 1:33 PM EDT Automated LAB Interface us Historical Provider LAB BLOOD ORDERABLES Final R esult Performing Organization Address [facility] de Phone Number EXTERNAL LAB * OTTR LAB RESULTS (MANUAL) (06/23/2019 2:22 AM EDT) External Estimated GFR 143.28 EXTERNAL LAB 06/23/2019 2:22 AM EDT Narrative EXTERNAL LAB - 06/23/2019 6:36 AM EDT Automated LAB Interface us Historical Provider LAB BLOOD ORDERABLES Final R esult Performing Organization Address [facility] de Phone Number EXTERNAL LAB * OTTR LAB RESULTS (MANUAL) (06/21/2019 2:39 AM EDT) External Estimated GFR 160.82 EXTERNAL LAB 06/21/2019 2:39 AM EDT Narrative EXTERNAL LAB - 06/21/2019 3:27 AM EDT Automated LAB Interface us Historical Provider LAB BLOOD ORDERABLES Final R esult Performing Organization Address [facility] de Phone Number EXTERNAL LAB * OTTR LAB RESULTS (MANUAL) (06/20/2019 2:34 PM EDT) External Estimated GFR 154.55 EXTERNAL LAB 06/20/2019 2:34 PM EDT Narrative EXTERNAL LAB - 06/20/2019 3:11 PM EDT Automated LAB Interface us Historical Provider LAB BLOOD ORDERABLES Final R esult Performing Organization Address [facility] Co de Phone Number EXTERNAL LAB * [...] ORDERABLES Final R esult Performing Organization Address City/[facility]/ZIP Co de Phone Number EXTERNAL LAB * OTTR LAB RESULTS (MANUAL) (06/19/2019 9:09 PM EDT) Pathologist [facility] External Estimated GFR 191.49 EXTERNAL LAB 06/19/2019 9:09 PM EDT Narrative EXTERNAL LAB - 06/19/2019 11:38 PM EDT Automated LAB Interface Historical Provider LAB BLOOD ORDERABLES Final R esult Performing Organization Address [facility] Co de Phone Number EXTERNAL LAB * [...] ORDERABLES Final R esult Performing Organization Address [facility] de Phone Number EXTERNAL LAB * OTTR LAB RESULTS (MANUAL) (06/18/2019 3:40 PM EDT) External Estimated GFR 104.23 EXTERNAL LAB 06/18/2019 3:40 PM EDT Narrative EXTERNAL LAB - 06/18/2019 5:38 PM EDT Automated LAB Interface Historical Provider LAB BLOOD ORDERABLES Final R esult Performing Organization Address [facility] de Phone Number EXTERNAL LAB * OTTR LAB RESULTS (MANUAL) (06/18/2019 4:36 AM EDT) External Estimated GFR 55.64 EXTERNAL LAB 06/18/2019 4:36 AM EDT Narrative EXTERNAL LAB - 06/24/2019 5:14 PM EDT Automated LAB Interface Historical Provider LAB BLOOD ORDERABLES Final R esult Performing Organization Address [facility] de Phone Number EXTERNAL LAB * OTTR LAB RESULTS (MANUAL) (06/17/2019 1:44 AM EDT) External Estimated GFR 117.17 EXTERNAL LAB 06/17/2019 1:44 AM EDT Narrative EXTERNAL LAB - 06/17/2019 6:27 AM EDT Automated LAB Interface Historical Provider LAB BLOOD ORDERABLES Final R esult Performing Organization Address City/[facility]/ZIP Co de Phone Number EXTERNAL LAB * OTTR LAB RESULTS (MANUAL) (06/16/2019 5:54 PM EDT) External Estimated GFR 122.82 EXTERNAL LAB 06/16/2019 5:54 PM EDT Narrative EXTERNAL LAB - 06/16/2019 6:31 PM EDT Automated LAB Interface Historical Provider LAB BLOOD ORDERABLES Final R esult Performing Organization Address [facility] de Phone Number EXTERNAL LAB * OTTR LAB RESULTS (MANUAL) (06/16/2019 11:39 AM EDT) External Estimated GFR 131.19 EXTERNAL LAB 06/16/2019 11:3 9 AM EDT Narrative EXTERNAL LAB - 06/16/2019 12:17 PM EDT Automated LAB Interface Historical Provider LAB BLOOD ORDERABLES Final R esult Performing Organization Address [facility] de Phone Number EXTERNAL LAB * OTTR LAB RESULTS (MANUAL) (06/15/2019 11:52 AM EDT) External Estimated GFR 131.19 EXTERNAL LAB 06/15/2019 11:5 2 AM EDT Narrative EXTERNAL LAB - 06/15/2019 12:34 PM EDT Automated LAB Interface Historical Provider LAB BLOOD ORDERABLES Final R esult Performing Organization Address [facility] de Phone Number EXTERNAL LAB * OTTR LAB RESULTS (MANUAL) (06/15/2019 3:57 AM EDT) External Estimated GFR 138.20 EXTERNAL LAB 06/15/2019 3:57 AM EDT Narrative EXTERNAL LAB - 06/15/2019 6:04 AM EDT Automated LAB Interface Historical Provider LAB BLOOD ORDERABLES Final R esult Performing Organization Address [facility] de Phone Number EXTERNAL LAB * OTTR LAB RESULTS (MANUAL) (06/15/2019 12:00 AM EDT) External Estimated GFR 138.20 EXTERNAL LAB 06/15/2019 Narrative EXTERNAL LAB - 06/15/2019 12:47 AM EDT Automated LAB Interface Historical Provider LAB BLOOD ORDERABLES Final R esult Performing Organization Address City/[facility] de Phone Number EXTERNAL LAB * OTTR LAB RESULTS (MANUAL) (06/14/2019 3:50 PM EDT) External Estimated GFR 122.82 EXTERNAL LAB 06/14/2019 3:50 PM EDT Narrative EXTERNAL LAB - 06/14/2019 4:19 PM EDT Automated LAB Interface us Historical Provider LAB BLOOD ORDERABLES Final R esult Performing Organization Address [facility] de Phone Number EXTERNAL LAB * OTTR LAB RESULTS (MANUAL) (06/14/2019 3:51 AM EDT) External Estimated GFR 126.88 EXTERNAL LAB 06/14/2019 3:51 AM EDT Narrative EXTERNAL LAB - 06/14/2019 4:53 AM EDT Automated LAB Interface us Historical Provider LAB BLOOD ORDERABLES Final R esult Performing Organization Address [facility] de Phone Number EXTERNAL LAB * OTTR LAB RESULTS (MANUAL) (06/13/2019 10:02 PM EDT) External Estimated GFR 118.99 EXTERNAL LAB 06/13/2019 10:0 2 PM EDT Narrative EXTERNAL LAB - 06/13/2019 10:47 PM EDT Automated LAB Interface us Historical Provider LAB BLOOD ORDERABLES Final R esult Performing Organization Address [facility] de Phone Number EXTERNAL LAB * OTTR LAB RESULTS (MANUAL) (06/13/2019 6:29 PM EDT) External Estimated GFR 117.17 EXTERNAL LAB 06/13/2019 6:29 PM EDT Narrative EXTERNAL LAB - 06/13/2019 7:10 PM EDT Automated LAB Interface us Historical Provider LAB BLOOD ORDERABLES Final R esult Performing Organization Address [facility] de Phone Number EXTERNAL LAB * OTTR LAB RESULTS (MANUAL) (06/13/2019 11:44 AM EDT) External Estimated GFR 107.21 EXTERNAL LAB 06/13/2019 11:4 4 AM EDT Narrative EXTERNAL LAB - 06/13/2019 12:32 PM EDT Automated LAB Interface us Historical Provider LAB BLOOD ORDERABLES Final R esult Performing Organization Address City/[facility]/ZIP Co de Phone Number EXTERNAL LAB * OTTR LAB RESULTS (MANUAL) (06/13/2019 2:14 AM EDT) External Estimated GFR 115.39 EXTERNAL LAB 06/13/2019 2:14 AM EDT Narrative EXTERNAL LAB - 06/13/2019 7:22 AM EDT Automated LAB Interface Historical Provider LAB BLOOD ORDERABLES Final R esult Performing Organization Address [facility]/ZIP Co de Phone Number EXTERNAL LAB * OTTR LAB RESULTS (MANUAL) (06/12/2019 6:45 PM EDT) External Estimated GFR 145.95 EXTERNAL LAB 06/12/2019 6:45 PM EDT Narrative EXTERNAL LAB - 06/12/2019 7:17 PM EDT Automated LAB Interface Historical Provider LAB BLOOD ORDERABLES Final R esult Performing Organization Address [facility] Co de Phone Number EXTERNAL LAB * [...] ORDERABLES Final R esult Performing Organization Address [facility] de Phone Number EXTERNAL LAB * OTTR LAB RESULTS (MANUAL) (06/11/2019 2:56 AM EDT) External Estimated GFR 118.99 EXTERNAL LAB 06/11/2019 2:56 AM EDT Narrative EXTERNAL LAB - 06/11/2019 4:06 AM EDT Automated LAB Interface us Historical Provider LAB BLOOD ORDERABLES Final R esult Performing Organization Address [facility] de Phone Number EXTERNAL LAB * OTTR LAB RESULTS (MANUAL) (06/10/2019 2:52 AM EDT) External Estimated GFR 115.39 EXTERNAL LAB 06/10/2019 2:52 AM EDT Narrative EXTERNAL LAB - 06/10/2019 6:50 AM EDT Automated LAB Interface us Historical Provider LAB BLOOD ORDERABLES Final R esult Performing Organization Address [facility] de Phone Number EXTERNAL LAB * OTTR LAB RESULTS (MANUAL) (06/09/2019 12:12 PM EDT) External Estimated GFR 93.73 EXTERNAL LAB 06/09/2019 12:1 2 PM EDT Narrative EXTERNAL LAB - 06/09/2019 1:36 PM EDT Automated LAB Interface us Historical Provider LAB BLOOD ORDERABLES Final R esult Performing Organization Address [facility] Co de Phone Number EXTERNAL LAB * OTTR LAB RESULTS (MANUAL) (06/09/2019 2:19 AM EDT) External Estimated GFR 98.72 EXTERNAL LAB 06/09/2019 2:19 AM EDT Narrative EXTERNAL LAB - 06/09/2019 6:19 AM EDT Automated LAB Interface us Historical Provider LAB BLOOD ORDERABLES Final R esult Performing Organization Address City/[facility]/ZIP Co de Phone Number EXTERNAL LAB * OTTR LAB RESULTS (MANUAL) (06/08/2019 3:20 PM EDT) External Estimated GFR 102.80 EXTERNAL LAB 06/08/2019 3:20 PM EDT Narrative EXTERNAL LAB - 06/08/2019 4:06 PM EDT Automated LAB Interface us Historical Provider LAB BLOOD ORDERABLES Final R esult Performing Organization Address [facility] Co de Phone Number EXTERNAL LAB * OTTR LAB RESULTS (MANUAL) (06/08/2019 12:35 PM EDT) External Estimated GFR 105.70 EXTERNAL LAB 06/08/2019 12:3 5 PM EDT Narrative EXTERNAL LAB - 06/08/2019 1:51 PM EDT Automated LAB Interface us Historical Provider LAB BLOOD ORDERABLES Final R esult Performing Organization Address [facility] Co de Phone Number EXTERNAL LAB * OTTR LAB RESULTS (MANUAL) (06/08/2019 10:28 AM EDT) External Estimated GFR 122.82 EXTERNAL LAB 06/08/2019 10:2 8 AM EDT Narrative EXTERNAL LAB - 06/08/2019 2:31 PM EDT Automated LAB Interface us Historical Provider LAB BLOOD ORDERABLES Final R esult Performing Organization Address [facility]/ZIP Co de Phone Number EXTERNAL LAB * OTTR LAB RESULTS (MANUAL) (06/08/2019 8:04 AM EDT) External Estimated GFR 93.73 EXTERNAL LAB 06/08/2019 8:04 AM EDT Narrative EXTERNAL LAB - 06/08/2019 8:51 AM EDT Automated LAB Interface us Historical Provider LAB BLOOD ORDERABLES Final R esult Performing Organization Address [facility] de Phone Number EXTERNAL LAB * OTTR LAB RESULTS (MANUAL) (06/08/2019 6:23 AM EDT) External Estimated GFR 92.56 EXTERNAL LAB 06/08/2019 6:23 AM EDT Narrative EXTERNAL LAB - 06/08/2019 7:15 AM EDT Automated LAB Interface Historical Provider LAB BLOOD ORDERABLES Final R esult Performing Organization Address [facility] de Phone Number EXTERNAL LAB * OTTR LAB RESULTS (MANUAL) (06/08/2019 2:56 AM EDT) External Estimated GFR 104.23 EXTERNAL LAB 06/08/2019 2:56 AM EDT Narrative EXTERNAL LAB - 06/08/2019 3:42 AM EDT Automated LAB Interface Historical Provider LAB BLOOD ORDERABLES Final R esult Performing Organization Address [facility] de Phone Number EXTERNAL LAB * OTTR LAB RESULTS (MANUAL) (06/07/2019 10:55 PM EDT) Pathologist [facility] External Estimated GFR 97.43 EXTERNAL LAB 06/07/2019 10:5 5 PM EDT Narrative EXTERNAL LAB - 06/08/2019 12:35 AM EDT Automated LAB Interface Historical Provider LAB BLOOD ORDERABLES Final R esult Performing Organization Address [facility] de Phone Number EXTERNAL LAB * OTTR LAB RESULTS (MANUAL) (06/07/2019 5:25 PM EDT) External Estimated GFR 76.92 EXTERNAL LAB 06/07/2019 5:25 PM EDT Narrative EXTERNAL LAB - 06/07/2019 6:51 PM EDT Automated LAB Interface Historical Provider LAB BLOOD ORDERABLES Final R esult Performing Organization Address [facility] Co de Phone Number EXTERNAL LAB * OTTR LAB RESULTS (MANUAL) (06/07/2019 12:22 PM EDT) External Estimated GFR 102.80 EXTERNAL LAB 06/07/2019 12:2 2 PM EDT Narrative EXTERNAL LAB - 06/07/2019 2:13 PM EDT Automated LAB Interface Historical Provider LAB BLOOD ORDERABLES Final R esult Performing Organization Address [facility] de Phone Number EXTERNAL LAB * OTTR LAB RESULTS (MANUAL) (06/07/2019 4:53 AM EDT) External Estimated GFR 96.17 EXTERNAL LAB 06/07/2019 4:53 AM EDT Narrative EXTERNAL LAB - 06/07/2019 5:48 AM EDT Automated LAB Interface Historical Provider LAB BLOOD ORDERABLES Final R esult Performing Organization Address [facility] de Phone Number EXTERNAL LAB * OTTR LAB RESULTS (MANUAL) (06/07/2019 3:04 AM EDT) External Estimated GFR 167.59 EXTERNAL LAB 06/07/2019 3:04 AM EDT Narrative EXTERNAL LAB - 06/07/2019 6:39 AM EDT Automated LAB Interface Historical Provider LAB BLOOD ORDERABLES Final R esult Performing Organization Address [facility] de Phone Number EXTERNAL LAB * OTTR LAB RESULTS (MANUAL) (06/06/2019 2:22 PM EDT) External Estimated GFR 88.12 EXTERNAL LAB 06/06/2019 2:22 PM EDT Narrative EXTERNAL LAB - 06/06/2019 3:13 PM EDT Automated LAB Interface Historical Provider LAB BLOOD ORDERABLES Final R esult Performing Organization Address [facility] Co de Phone Number EXTERNAL LAB * OTTR LAB RESULTS (MANUAL) (06/06/2019 1:30 AM EDT) External Estimated GFR 110.35 EXTERNAL LAB 06/06/2019 1:30 AM EDT Narrative EXTERNAL LAB - 06/06/2019 2:16 AM EDT Automated LAB Interface Historical Provider LAB BLOOD ORDERABLES Final R esult Performing Organization Address [facility] de Phone Number EXTERNAL LAB * OTTR LAB RESULTS (MANUAL) (06/05/2019 10:12 AM EDT) External Estimated GFR 100.05 EXTERNAL LAB 06/05/2019 10:1 2 AM EDT Narrative EXTERNAL LAB - 06/05/2019 11:27 AM EDT Automated LAB Interface Historical Provider LAB BLOOD ORDERABLES Final R esult Performing Organization Address [facility] de Phone Number EXTERNAL LAB * OTTR LAB RESULTS (MANUAL) (05/17/2019 2:05 AM EDT) Pathologist [facility] External Estimated GFR 105.70 EXTERNAL LAB 05/17/2019 2:05 AM EDT Narrative EXTERNAL LAB - 05/17/2019 3:01 AM EDT Automated LAB Interface Historical Provider LAB BLOOD ORDERABLES Final R esult Performing Organization Address [facility] de Phone Number EXTERNAL LAB * OTTR LAB RESULTS (MANUAL) (05/16/2019 9:46 AM EDT) External Estimated GFR 80.35 EXTERNAL LAB 05/16/2019 9:46 AM EDT Narrative EXTERNAL LAB - 05/16/2019 10:25 AM EDT Automated LAB Interface Historical Provider LAB BLOOD ORDERABLES Final R esult Performing Organization Address [facility] Co de Phone Number EXTERNAL LAB * [...] as of this encounter Care Teams Marketing Assistant Relationship Specialty Start Date End Date Herberth Perez MD [address] [place] [address] PCP - General 07/17/20 Katrin Oviedo, RN [facility] [address] [place] [id number] VAD Coordinator Cardiology 08/06/20 10/21/24 Zaida Lafleur APRN [address] [place] [address] Nurse Practitioner Advanced Heart Failure and Transplant Cardiology 08/06/20 06/11/23 Gracia Petersen APRN [address] [place] [address] Nurse Practitioner Internal Medicine 08/06/20 Yunior Solorzano MD [address] [place] [address] Consulting Physician Gastroenterology 07/18/22 Ross Baez DO [address] [address] Surgeon Cardiothoracic Surgery 07/18/22 Edith Aleman, SPOTTER None VAD Coordinator 10/14/24 documented as of this encounter
--- OUTSIDE RECORDS SUMMARY | 2025-02-24 14:53 | XMS_ITS | Encounter Summary ---
Author Organization [employer] ([place], [place], [place], [place], [place]) Address [address] [place] [address] Care Team Providers Care Machine Maintenance Technician Name Role Phone Unavailable Primary Care Provider Unavailabl e Encounter Details Date Type Department Care Team (Late st Contact Info) Description 2019 Transcribed Document [facility] [place] [facility] [place] [address] ProviderMg MD [facility] [place], [place] [id number] Social History Tobacco Use Types Packs/Day Years Used Date Smoking Tobacco: Never Assessed Sex and Gender Information Value Date Recorded Sex Assigned at Not on file Legal Sex Male 1:09 PM CDT Gender Identity Not on file Sexual Orientation Not on file documented as of this encounter Miscellaneous Notes * Cerner Conversion Note - Mg Ritchie MD - 2019 12:47 PM EEO OFFICER Patient: JOSE PEARSON Age: 48 years Sex: [...] Non-distended, Normal bowel sounds. Integumentary: Warm, Dry, [place], No rash. Results Review General results CArdiomems [...] of care. Electronically signed by Jackie, [facility] Conversion Bed Setter Cerner at 06/19/2022 10:53 PM CDT documented in this encounter Plan of Treatment Not on file documented as of this encounter Visit Diagnoses Not on filedocumented in this encounter
--- OUTSIDE RECORDS SUMMARY | 2025-02-24 14:53 | XMS_ITS | Encounter Summary ---
Author Organization [employer] ([place], [place], [place], [place], [place]) Address [address] [place] [address] Care Team Providers Care General Teller Name Role Phone Unavailable Primary Care Provider Unavailabl e Encounter Details Date Type Department Care Team (Late st Contact Info) Description 05/22/2019 Transcribed Document [facility] [place] Medicine [facility] [place] [address] ProviderMg MD [facility] [place] [address] Social History Tobacco Use Types [...] On: 05/22/2019 12:43 EDT by EDITH CHAVIS, real estate professor and Pulmonary Outpatient [facility] Evaluation Comment : [facility] - 05/22/2019 12:43 EDT documented in this encounter Plan of Treatment Not on file documented as of this encounter Visit Diagnoses Not on filedocumented in this encounter
--- OUTSIDE RECORDS SUMMARY | 2025-02-24 14:53 | XMS_ITS | Encounter Summary ---
Author Organization [employer] ([place], [place], [place], [place], [place]) Address [address] [place] [address] Care Team Providers Care College Scouting Coordinator Name Role Phone Unavailable Primary Care Provider Unavailabl e Encounter Details Date Type Department Care Team (Late st Contact Info) Description 2019 Transcribed Document [facility] [place] [facility] [place] [address] ProviderMg MD [place] [address] Social History Tobacco Use Types Packs/Day Years Used Date Smoking Tobacco: Never Assessed Sex and Gender Information Value Date Recorded Sex Assigned at Not on file Legal Sex Male 1:09 PM CDT Gender Identity Not on file Sexual Orientation Not on file documented as of this encounter Miscellaneous Notes * Cerner Conversion Note - Mg ProviderMD - 2019 2:12 PM PROBATION AND PAROLE OFFICER On Going Discharge Planning Entered On: 2019 14:13 EST Performed On: 2019 14:12 EST by Alyse Townsend Social Worker-Drafter Heating And Ventilating Care Management Progress Note Discharge Arrangements : Patient Post-Acute Information Patient Name: JOSE PEARSON Gender: Male : [birth year] Age: 48 Years No Post-Acute Placement(s) Listed No Post-Acute Service(s) Listed No [place] Referral(s) Listed Alyse Townsend Social Worker-Drafter Heating And Ventilating - 2019 14:12 EST Narrative Progress Note Narrative Progress Note : 05/09 Per chart, Dr. Davis was consulted for tikosyn dosing. Continue to follow... Historical Progress Note : 05/08 Per documentation left by Paula Villeda RN CM, referral information was sent to [facility] program. Alyse Townsend Social Worker-Drafter Heating And Ventilating - 05/09/19 08:57:21 05/06 Received order to make referral to outpatient cardiac transplant program. Contacted [facility] appointment telephone number [phone]. They report the person who typically takes the referrals is unavailable and they will have her contact CM back. CM contact information was provided. They report the referral/dental scheduling coordinator is Kailey PH: [phone]. Alyse Townsend Social Worker-Drafter Heating And Ventilating - 05/07/19 15:01:13 Per RN in Multidisciplinary rounds patient is NPO for scheduled Cardiomems today. Having some nausea after Fe Infusions requested the infusion be held until after procedure so he can eat. CM will follow. TANVIR THAYER Rn-Rn Medical Surgical - 05/06/19 11:03:45 Alyse Townsend Social Worker-Drafter Heating And Ventilating - 2019 14:12 EST Electronically signed by [facility] Conversion Sales And Leasing Consultant Cerner at 06/19/2022 10:56 PM CDT documented in this encounter Plan of Treatment Not on file documented as of this encounter Visit Diagnoses Not on filedocumented in this encounter
--- OUTSIDE RECORDS SUMMARY | 2025-02-24 14:53 | XMS_ITS | Clinical Summary ---
Author Organization [employer] ([place], [place], [place], [place], [place]) Address [address] [place] [address] Care Team Providers Care Nurses Director Name Role Phone Unavailable Primary Care [...]
--- OUTSIDE RECORDS SUMMARY | 2025-02-24 14:53 | XMS_ITS | Encounter Summary ---
Author Organization [employer] ([place], [place], [place], [place], [place]) Address [address] [place] [address] Care Team Providers Care Cash Register Servicer Name Role Phone Unavailable Primary Care Provider Unavailabl e Encounter Details Date Type Department Care Team (Late st Contact Info) Description 2019 Transcribed Document [facility] [place] [facility] [place] [address] ProviderMg MD [facility] [place] [address] Social History Tobacco Use Types Packs/Day Years Used Date Smoking Tobacco: Never Assessed Sex and Gender Information Value Date Recorded Sex Assigned at Not on file Legal Sex Male 1:09 PM CDT Gender Identity Not on file Sexual Orientation Not on file documented as of this encounter Miscellaneous Notes * Cerner Conversion Note - Mg Ritchie MD - 2019 8:38 PM COLLEGE [employer] EDUCATION DEAN [place] [id number] JOSE PEARSON :1970 Visit Time:05/03/2019 Your Visit [...] appoint/instructions Where: [address] [place] [address]- Business (1) Follow Up with [facility] When Within 1 week Comments Office to call with appoint/instructions Where: [address] [place] [address]- Business (1) Medications What How Much When Instructions Next Dose bumetanide (bumetanide 2 mg oral tablet) 1 Tablet(s) Oral Two Times A Day Pickup at [place] [address] start 05/10 cyclobenzaprine (cyclobenzaprine 10 mg oral tablet) 0.5 Tablet(s) Oral Two Times A Day as needed for Cramping Pickup at [place] [address] as needed magnesium oxide (magnesium oxide 400 mg (240 mg elemental magnesium) oral tablet) 1 Tablet(s) Oral Two Times A Day Pickup at [place] [address] start 05/10 metOLazone (metOLazone 10 mg oral tablet) 1 Tablet(s) Oral Every Day Pickup at [place] [address] start 05/10 dofetilide (Tikosyn 125 mcg oral capsule) 3 Capsule(s) Oral Two Times A Day Pickup at [place] [address] start 05/10 spironolactone (Aldactone 25 mg oral tablet) 2 Tablet(s) Oral Every Day Pickup at [place] [address] start 05/10 carvedilol (carvedilol 3.125 mg oral [...] Times A Day start 05/10 Pharmacy Information [facility] [phone]: [phone] [place], [place] [phone] Take your medications faithfully. Do NOT skip [...] and water are not available, use hand labor relations or personnel negotiator. ? Change your dressing as told by [...] contrast dye from your body. ??? Take bbmq-esv-gimfjgf and prescription medicines only as told by [...] 09/08/2005 Document Revised: 01/25/2017 Document Reviewed: 01/25/2017 Else[employer]Visions [employer] Interactive Patient Education ?? 2019 [employer] Heart-Healthy Eating Plan Many factors influence [...] foods can I eat? Grains Breads, including Croatian, white, raymundo, wheat, raisin, rye, oatmeal, and Danish. Tortillas that are neither fried nor made with lard or trans fat. Low-fat rolls, including hotdog and hamburger buns and Monegasque muffins. Biscuits. Muffins. Waffles. Pancakes. Light popcorn. Whole-grain cereals. Flatbread. [place] toast. Pretzels. Breadsticks. Rusks. Low-fat snacks and [...] cooking, baking, salads, and as spreads. Other [place] powder. Coffee and tea. All seasonings and [...] cheese. Whole milk cheeses, including blue (ana), [place] Jl, Brie, Temo, Angolan, Havarti, Citizen [place], cheddar, Camembert, and Berger. Whole or 2% milk that is liquid, [...] that has suet, meat fat, or shortening. [place] butter, hydrogenated oils, palm oil, coconut oil, [...] 11/29/2008 Document Revised: 09/09/2016 Document Reviewed: 08/14/2014 [employer] Interactive Patient Education ?? 2019 [employer] Living With Heart Failure Heart failure [...] failure, and improving your symptoms. ??? Take vysc-ygd-sbxnrqb and prescription medicines only as told by [...] provider about groups near you. ??? The [place] Heart Association: www.heart.org Contact a health care [...] 07/05/2017 Document Revised: 07/05/2017 Document Reviewed: 07/05/2017 [employer] Interactive Patient Education ?? 2019 [employer] Heart Failure Heart failure is a [...] these instructions at home: Medicines ??? Take smfk-jsf-olaowxc and prescription medicines only as told by [...] 02/20/2006 Document Revised: 10/25/2016 Document Reviewed: 09/14/2016 [employer] Interactive Patient Education ?? 2017 [employer] Low-Sodium Eating Plan Sodium, which is [...] (monosodium glutamate). MSG is sometimes added to Syriac food, bouillon, and some canned foods. What [...] such as ricotta cheese, fresh mozzarella, or Citizen [place] cheese Low-sodium or reduced-sodium cheese. Cream cheese. [...] Vegetables Sauerkraut, pickled vegetables, and relishes. Olives. Croatian fries. Onion rings. Regular canned vegetables (not [...] salad dressings. Salsa. Potato and tortilla chips. [place] chips and puffs. Salted popcorn and pretzels. [...] 08/12/2002 Document Revised: 02/13/2017 Document Reviewed: 02/13/2017 [employer] Interactive Patient Education ?? 2019 Followap. Heart-Healthy Eating Plan Heart-healthy meal planning includes: [...] foods can I eat? Grains Breads, including Croatian, white, raymundo, wheat, raisin, rye, oatmeal, and Danish. Tortillas that are neither fried nor made with lard or trans fat. Low-fat rolls, including hotdog and hamburger buns and Monegasque muffins. Biscuits. Muffins. Waffles. Pancakes. Light popcorn. [...] cooking, baking, salads, and as spreads. Other [place] powder. Coffee and tea. All seasonings and [...] cottage cheese. Whole-milk cheeses, including blue (ana), [place]l, Brie, Temo, Angolan, Havarti, Citizen [place], cheddar, Camembert, and Berger. Whole or 2% milk that is liquid, [...] that has suet, meat fat, or shortening. [place] butter, hydrogenated oils, palm oil, coconut oil, [...] 08/21/2012 Document Revised: 07/28/2016 Document Reviewed: 08/14/2014 [employer] Interactive Patient Education ?? 2019 Followap. spironolactone (spir ON oh LAK tone) Aldactone, CaroSpir What is the most important information I should know about spironolactone? You should not use spironolactone if you have kidney problems, high levels of potassium in your blood, Nash's disease, if you are unable to urinate, [...] to it, or if you have: ?? Nash's disease (an adrenal gland disorder); ?? high [...] may report side effects to FDA at 9-723-RBW-5508. What other drugs will affect spironolactone? Taking [...] may interact with spironolactone, including prescription and bbwx-qyb-jjebtaw medicines, vitamins, and herbal products. Not all [...] to ensure that the information provided by [employer]. ('Multum') is accurate, up-to-date, and complete, but no guarantee is made to that effect. Drug information contained herein may be time sensitive. V[employer]ology information has been compiled for use by healthcare practitioners and consumers in the [place] and therefore Videology does not warrant that uses outside of the [place] are appropriate, unless specifically indicated otherwise. Videology's drug information does not endorse drugs, diagnose patients or recommend therapy. Renrenmoneys drug information is an informational resource designed [...] effective or appropriate for any given patient. Videology does not assume any responsibility for any aspect of healthcare administered with the aid of information Videology provides. The information contained herein is not intended to cover all possible uses, directions, precautions, warnings, drug interactions, allergic reactions, or adverse effects. If you have questions about the drugs you are taking, check with your doctor, nurse or pharmacist. Copyright 3213-7968 [employer] Interactive. Version: 10.01. Revision Date: 03/02/2017. metolazone (me [...]
--- OUTSIDE RECORDS SUMMARY | 2025-02-24 14:53 | XMS_ITS | Encounter Summary ---
Author Organization [employer] ([place], [place], [place], [place], [place]) Address [address] [place] [address] Care Team Providers Care Media Coordinator Name Role Phone Unavailable Primary Care Provider Unavailabl e Encounter Details Date Type Department Care Team (Late st Contact Info) Description 03/28/2018 Transcribed Document [facility] [place] Family Medicine [address] [place] [address] ProviderMg MD [facility] [place] [address] Social History Tobacco Use Types Packs/Day Years Used Date Smoking Tobacco: Never Assessed Sex and Gender Information Value Date Recorded Sex Assigned at Not on file Legal Sex Male 1:09 PM CDT Gender Identity Not on file Sexual Orientation Not on file documented as of this encounter Miscellaneous Notes * Cerner Conversion Note - Historical ProviderMD - 03/28/2018 5:50 PM CAN STRIPER Spiritual Care Short Form Entered On: 03/28/2018 18:12 EST Performed On: 03/28/2018 17:50 EST by Billy Lewis CHAPLAIN General Information, Spiritual Care Spiritual Care Referred by : Family Reason for Visit : Initial Ministry Provided to : Patient Intervention/Comment/Summary Points : Grain Mill Products Inspector paged for a meal voucher for patient's . Grain Mill Products Inspector delivered the meal voucher. Billy Lewis CHAPLAIN - 03/28/2018 18:11 EST documented in this encounter Plan of Treatment Not on file documented as of this encounter Visit Diagnoses Not on filedocumented in this encounter
--- OUTSIDE RECORDS SUMMARY | 2025-02-24 14:53 | XMS_ITS | Referral Summary ---
Author Organization [employer] ([place], [place], [place], [place], [place]) Address [address] [place] [address] Care Team Providers Care Psychic Reader Name Role Phone Unavailable Primary Care Provider [...]
--- OUTSIDE RECORDS SUMMARY | 2025-02-24 14:53 | XMS_ITS | Encounter Summary ---
Author Organization [employer] ([place], [place], [place], [place], [place]) Address [address] [place] [address] Care Team Providers Care Cost Estimating Engineer Name Role Phone Unavailable Primary Care Provider Unavailabl e Encounter Details Date Type Department Care Team (Late st Contact Info) Description 2019 Transcribed Document [facility] [place] Medicine [facility] [place] [address] ProviderMg MD [facility] [place] [address] Social History Tobacco Use Types Packs/Day Years Used Date Smoking Tobacco: Never Assessed Sex and Gender Information Value Date Recorded Sex Assigned at Not on file Legal Sex Male 1:09 PM CDT Gender Identity Not on file Sexual Orientation Not on file documented as of this encounter Miscellaneous Notes * Cerner Conversion Note - Mg Ritchie MD - 2019 8:53 PM CEMENT CONTRACTOR [place] [id number] JOSE PEARSON :1970 Visit Time:05/03/2019 Your Visit [...] appoint/instructions Where: [address] [place] [address]- Business (1) Follow Up with [facility] When Within 1 week Comments Office to call with appoint/instructions Where: [address] [place] [address]- Business (1) Medications What How Much When Instructions Next Dose bumetanide (bumetanide 2 mg oral tablet) 1 Tablet(s) Oral Two Times A Day Pickup at [facility] [address] cyclobenzaprine (cyclobenzaprine 10 mg oral tablet) 0.5 Tablet(s) Oral Two Times A Day as needed for Cramping Pickup at [place] [address] magnesium oxide (magnesium oxide 400 mg (240 mg elemental magnesium) oral tablet) 1 Tablet(s) Oral Two Times A Day Pickup at [place] [address] metOLazone (metOLazone 10 mg oral tablet) 1 Tablet(s) Oral Every Day Pickup at [place] [address] dofetilide (Tikosyn 125 mcg oral capsule) 3 Capsule(s) Oral Two Times A Day Pickup at [place] [address] spironolactone (Aldactone 25 mg oral tablet) 2 Tablet(s) Oral Every Day Pickup at [place] [address] carvedilol (carvedilol 3.125 mg oral tablet) cetirizine [...] Oral Two Times A Day Pharmacy Information [facility] [address]: [phone] [place], [place] [phone] Take your medications faithfully. Do NOT skip [...] and water are not available, use hand insect control inspector. ? Change your dressing as told by [...] contrast dye from your body. ??? Take yiuy-jln-irustlu and prescription medicines only as told by [...] 09/08/2005 Document Revised: 01/25/2017 Document Reviewed: 01/25/2017 ElseEcologic Brands Interactive Patient Education ?? 2019 [employer]dial [employer] Inc. Heart-Healthy Eating Plan Many factors influence [...] foods can I eat? Grains Breads, including Cameroonian, white, raymundo, wheat, raisin, rye, oatmeal, and Japanese. Tortillas that are neither fried nor made with lard or trans fat. Low-fat rolls, including hotdog and hamburger buns and Djiboutian muffins. Biscuits. Muffins. Waffles. Pancakes. Light popcorn. Whole-grain cereals. Flatbread. [place] toast. Pretzels. Breadsticks. Rusks. Low-fat snacks and [...] cooking, baking, salads, and as spreads. Other [place] powder. Coffee and tea. All seasonings and [...] cheese. Whole milk cheeses, including blue (ana), Archer Jl, Brie, Temo, Tunisian, Havarti, British, cheddar, Camembert, and [place]. Whole or 2% milk that is liquid, [...] that has suet, meat fat, or shortening. [place] butter, hydrogenated oils, palm oil, coconut oil, [...] 11/29/2008 Document Revised: 09/09/2016 Document Reviewed: 08/14/2014 [employer]dial LLC Interactive Patient Education ?? 2019 [employer] Inc. Living With Heart Failure Heart failure [...] failure, and improving your symptoms. ??? Take gnht-wks-diynmun and prescription medicines only as told by [...] provider about groups near you. ??? The [place] Heart Association: www.heart.org Contact a health care [...] 07/05/2017 Elsevier Interactive Patient Education ?? 2019 [employer] Inc. Heart Failure Heart failure is a [...] these instructions at home: Medicines ??? Take iilm-fxu-xtstzag and prescription medicines only as told by [...] 02/20/2006 Document Revised: 10/25/2016 Document Reviewed: 09/14/2016 jobs[employer] Interactive Patient Education ?? 2017 [employer]. Low-Sodium Eating Plan Sodium, which is an [...] (monosodium glutamate). MSG is sometimes added to Georgian food, bouillon, and some canned foods. What [...] such as ricotta cheese, fresh mozzarella, or British cheese Low-sodium or reduced-sodium cheese. Cream cheese. [...] Vegetables Sauerkraut, pickled vegetables, and relishes. Olives. Cameroonian fries. Onion rings. Regular canned vegetables (not [...] salad dressings. Salsa. Potato and tortilla chips. [place] chips and puffs. Salted popcorn and pretzels. [...] 08/12/2002 Document Revised: 02/13/2017 Document Reviewed: 02/13/2017 jobs-[employer] Interactive Patient Education ?? 2019 [employer]. Heart-Healthy Eating Plan Heart-healthy meal planning includes: [...] foods can I eat? Grains Breads, including Cameroonian, white, raymundo, wheat, raisin, rye, oatmeal, and Japanese. Tortillas that are neither fried nor made with lard or trans fat. Low-fat rolls, including hotdog and hamburger buns and Djiboutian muffins. Biscuits. Muffins. Waffles. Pancakes. Light popcorn. [...] cooking, baking, salads, and as spreads. Other [place] powder. Coffee and tea. All seasonings and [...] cottage cheese. Whole-milk cheeses, including blue (ana), Archer Jl, Brie, Temo, Tunisian, Havarti, British, cheddar, Camembert, and Bang[place]. Whole or 2% milk that is liquid, [...] that has suet, meat fat, or shortening. [place] butter, hydrogenated oils, palm oil, coconut oil, [...] 08/21/2012 Document Revised: 07/28/2016 Document Reviewed: 08/14/2014 jobs-[employer] Interactive Patient Education ?? 2019 [employer]. spironolactone (spir ON oh LAK tone) Aldactone, [...] to it, or if you have: ?? [place]'s disease (an adrenal gland disorder); ?? high [...] may report side effects to FDA at 9-511-MIB-5916. What other drugs will affect spironolactone? Taking [...] may interact with spironolactone, including prescription and ildo-dhm-hitbrla medicines, vitamins, and herbal products. Not all [...] to ensure that the information provided by [employer]. ('Multum') is accurate, up-to-date, and complete, but no guarantee is made to that effect. Drug information contained herein may be time sensitive. [employer] information has been compiled for use by healthcare practitioners and consumers in the [place] and therefore [employer] does not warrant that uses outside of the [place] are appropriate, unless specifically indicated otherwise. [employer]'s drug information does not endorse drugs, diagnose patients or recommend therapy. Neverwares drug information is an informational resource designed [...] effective or appropriate for any given patient. [employer] does not assume any responsibility for any aspect of healthcare administered with the aid of information [employer]tucesta provides. The information contained herein is not intended to cover all possible uses, directions, precautions, warnings, drug interactions, allergic reactions, or adverse effects. If you have questions about the drugs you are taking, check with your doctor, nurse or pharmacist. Copyright 3805-3020 [employer]. Version: 10.. Revision Date: 03/02/2017. metolazone (me [...] carefully. Electronically signed by Morales Mejia Conversion Electric Motor Winders Assembler Cerner at 06/19/2022 10:57 PM CDT documented in this encounter Plan of Treatment Not on file documented as of this encounter Visit Diagnoses Not on filedocumented in this encounter
--- OUTSIDE RECORDS SUMMARY | 2025-02-24 14:53 | XMS_ITS | Encounter Summary ---
Author Organization [facility] Address [address] [facility] [address] Care Team Providers Care Barkeeper Name Role Phone Herberth Perez MD Primary Care Provider [phone] Katrin Oviedo RN Unavailable [phone] Zaida Lafleur RESIDENT PHYSICIAN Unavailable [phone] Gracia Petersen RESIDENT PHYSICIAN Unavailable Yunior Solorzano MD Unavailable Ross Baez DO Unavailable [phone] Edith Aleman RN Unavailable Unavailable Reason for Visit * Reason Comments Med Refill Encounter Details Date Type Department Care Team (Late st Contact Info) Description 08/20/2021 Refill [facility] [place] [address] [place] [address] Gracia Petersen, RESIDENT PHYSICIAN [address] [place] [address] Social History Tobacco Use Types [...] Description 04/22/2025 9:00 AM EST Ancillary Procedure [facility] [address] [facility]. [address] [place] [address] documented as of this encounter Visit Diagnoses [...] documented as of this encounter Care Teams Barkeeper Relationship Specialty Start Date End Date Herberth Perez MD [address] [place] [address] [place] [address] PCP - General 07/17/20 Katrin Oviedo, RN [facility] [address] [place] [address] VAD Coordinator Cardiology 08/06/20 10/21/24 Zaida Lafleur APRN 800 [place] [address] Nurse Practitioner Advanced Heart Failure and Transplant Cardiology 08/06/20 06/11/23 Gracia Petersen APRN [address] [place] [address] Nurse Practitioner Internal Medicine 08/06/20 Yunior Solorzano MD [address] [place] [address] Consulting Physician Gastroenterology 07/18/22 Ross Baez DO [address] [id number] Surgeon Cardiothoracic Surgery 07/18/22 Edith Aleman, GROUNDS RESTORATION SPECIALIST None VAD Coordinator 10/14/24 documented as of this encounter
--- OUTSIDE RECORDS SUMMARY | 2025-02-24 14:53 | XMS_ITS | Encounter Summary ---
Author Organization [employer] ([place], [place], [place], [place], [place]) Address [address] [place] [address] Care Team Providers Care Community Health Specialist Name Role Phone Unavailable Primary Care Provider Stefan pond Encounter Details Date Type Department Care Team (Late st Contact Info) Description 03/28/2018 Transcribed Document [facility] Family Medicine [facility] [place] [address] ProviderMg MD [facility] [place] [address] Social History Tobacco Use Types Packs/Day Years Used Date Smoking Tobacco: Never Assessed Sex and Gender Information Value Date Recorded Sex Assigned at Not on file Legal Sex Male 1:09 PM CDT Gender Identity Not on file Sexual Orientation Not on file documented as of this encounter Miscellaneous Notes * Cerner Conversion Note - Mg ProviderMD - 03/28/2018 1:07 PM SENIOR INFORMATION SECURITY ENGINEER Admission History, Adult Entered On: 03/28/2018 13:21 [...] EST Legal Guardian : Spouse Support Person/Patient Chief Controller Center : Yes Support Person/Pt Rep Name : Neel Pearson-- Support Person/Pt Rep Contact Information : [phone] Want Family/Rep/Phys Notified of Admit : No Emergency Contact #1 : neel Emergency Contact #1 Phone Number : [phone] Emergency Contact #1 Relationship : Emergency Contact #2 : na Emergency Contact #2 Phone Number : na Emergency Contact #2 Relationship : na Information Obtained From : Patient, Spouse Primary Language : [place] Preferred Communication Mode : Verbal Communication [...] Scale Risk Level : 25-45 Medium Risk [place] Fall Interventions : Adequate lighting, Assistive devices [...] Source : Stated Height Entry Format : [place] Height, Feet : 6 ft(Converted to: 183 cm, 72 Inch) Height, Inches : 0 Inch(Converted to: 0 ft 0 Inch, 0.00 cm) Clinical Height : 182.88 cm Weight Source : Standing scale Weight Entry Format : [place] Clinical Dosing Weight : 107.5 kg Weight, Pounds : 236 lb Weight, Ounces : 8 oz Body Surface Area (BSA) : 2.29 m2 Body Mass Index : 32.1 kg/m2 (HI) Okay Body Weight : 77 kg BRIAN BEASLEY [...] BRIAN BEASLEY RN - 03/28/2018 13:07 EST documented in this encounter Plan of Treatment Not on file documented as of this encounter Visit Diagnoses Not on filedocumented in this encounter
--- OUTSIDE RECORDS SUMMARY | 2025-02-24 14:53 | XMS_ITS | Encounter Summary ---
Author Organization [employer] ([place], [place], [place], [place]) Address [address] [place] [address] Care Team Providers Care Patented Hogshead Assembler Name Role Phone Unavailable Primary Care Provider Unavailabl e Encounter Details Date Type Department Care Team (Late st Contact Info) Description 2019 Transcribed Document [facility] [place] [facility] [place] [address] ProviderMg MD [facility] [place] [address] Social History Tobacco Use Types Packs/Day Years Used Date Smoking Tobacco: Never Assessed Sex and Gender Information Value Date Recorded Sex Assigned at Not on file Legal Sex Male 1:09 PM CDT Gender Identity Not on file Sexual Orientation Not on file documented as of this encounter Miscellaneous Notes * Cerner Conversion Note - Historical ProviderMD - 2019 8:38 PM VENDOR MANAGEMENT ASSOCIATE Stroke/Warfarin Instructions Entered On: 2019 20:38 EST [...]
--- OUTSIDE RECORDS SUMMARY | 2025-02-24 14:53 | XMS_ITS | Encounter Summary ---
Author Organization [email or web address] ([place], [place], [place], [place]) Address [address] [place] [address] Care Team Providers Care Enterprise Systems Administrator Name Role Phone Unavailable Primary Care Provider Unavailabl e Encounter Details Date Type Department Care Team (Late st Contact Info) Description 2019 Transcribed Document [facility] [place] Medicine Pending sale to [place] [address] ProviderMg MD [place]ending [place] [address] Social History Tobacco Use Types Packs/Day Years Used Date Smoking Tobacco: Never Assessed Sex and Gender Information Value Date Recorded Sex Assigned at Not on file Legal Sex Male 1:09 PM CDT Gender Identity Not on file Sexual Orientation Not on file documented as of this encounter Miscellaneous Notes * Cerner Conversion Note - Mg ProviderMD - 2019 12:15 PM CAFETERIA TABLE ATTENDANT UM Authorization Entered On: 2019 12:16 EST Performed On: 2019 12:15 EST by Trudi Gaona Rn-Utilization Review Primary Insurance Authorization Authorization and Policy Numbers : Insurance 1 Health Plan: [facility] Policy Number: Authorization Number: Insurance Primary Name : [employer] [id number] Authorization Status-Primary : Admit approved Authorization Number-Primary : [id number] Number of Days Authorized-Primary : 6 Day(s) Authorized Service Begin Date-Primary : 05/03/2019 EST Authorized Service End Date-Primary : 05/09/2019 EST Authorization Comments-Primary : Continued stay clinicals faxed via [employer] Historical Authorization Comments-Primary : Comment 1: [employer] approved per Katrin for total of 7 days --- nrd 05/09 (CHARLA BARRAZA RN-Utilization Review 05/08/2019 15:22) Comment 2: Clinicals for CS faxed via [employer] (THORNTON, MARLENE, Rn-Utilization Review 05/08/2019 14:43) Comment 3: [place] approved per Katrin for 5 days total --- nrd 05/07 (CHARLA BARRAZA, RN-Utilization Review 05/06/2019 13:43) Comment 4: Uploaded continuing stay clinicals (05/06/19) to [facility] via [employer]. (ARMANDO SHANNON, RN-Utilization Review 05/06/2019 12:11) Comment 5: Per [facility], admit approved with auth #[id number] given from 05/03-05/05/19. Next review date 05/06/19. (ARMANDO SHANNON, RN-Utilization Review 05/06/2019 08:05) Comment 6: Uploaded clinicals to [facility] administrators via [employer]. Manually faxed ARC form. (ARMANDO SHANNON, RN-Utilization Review 05/03/2019 13:31) Trudi Gaona, Rn-Utilization Review - 2019 12:15 EST documented in this encounter Plan of Treatment Not on file documented as of this encounter Visit Diagnoses Not on filedocumented in this encounter
--- OUTSIDE RECORDS SUMMARY | 2025-02-24 14:53 | XMS_ITS | Encounter Summary ---
Author Organization [employer] ([place], [place], [place], [place]) Address [address] [place] [address] Care Team Providers Care Wrapper Stemmer Operator Name Role Phone Unavailable Primary Care Provider Unavailabl e Encounter Details Date Type Department Care Team (Late st Contact Info) Description 2019 Transcribed Document [facility] [place] [address] ProviderMg MD [facility] [place] [address] Social History Tobacco Use Types Packs/Day Years Used Date Smoking Tobacco: Never Assessed Sex and Gender Information Value Date Recorded Sex Assigned at Not on file Legal Sex Male 1:09 PM CDT Gender Identity Not on file Sexual Orientation Not on file documented as of this encounter Miscellaneous Notes * Cerner Conversion Note - Mg ProviderMD - 2019 3:00 AM DEICER INSPECTOR ELECTRIC Nutrition Assessment Entered On: 2019 11:24 EST Performed On: 2019 11:24 EST by Gracia Sneed Clinical Dietitian Nutrition Assessment Nutrition Assessment Reason : Follow Up Gracia Sneed, Clinical Dietitian - 2019 11:24 EST Nutrition Recommendations Dietitian Recommendations : 05/09: Rescreen: Pt seen on 3rd floor, noted CadrioMEMS placed 3/4. 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 [facility].375[facility]/kg/min. LBM -receiving colace. [...]
--- OUTSIDE RECORDS SUMMARY | 2025-02-24 14:53 | XMS_ITS | Encounter Summary ---
Author Organization [employer] ([place], [place], [place], [place]) Address [address] [place] [address] Care Team Providers Care Special Programs Director Name Role Phone Unavailable Primary Care Provider Unavailabl e Encounter Details Date Type Department Care Team (Late st Contact Info) Description 05/13/2019 Transcribed Document [facility] Family Medicine [facility] [place] [address] ProviderMg MD [facility] [place] [address] Social History Tobacco Use Types [...] Policy Numbers : Insurance 1 Health Plan: [facility] Policy Number: Authorization Number: [id number] Insurance Primary Name : [employer] Administators [id number] Authorization Status-Primary : Admit approved Authorization Number-Primary : [id number] Number of Days Authorized-Primary : 6 Day(s) [...] THORNTON, Rn-Utilization Review 05/08/2019 14:43) Comment 4: [place] approved per Katrin for 5 days total --- nrd 3/4 (CHARLA BARRAZA, RN-Utilization Review 05/06/2019 13:43) Comment 5: Uploaded continuing stay clinicals (05/06/19) to [facility] via [employer]. (ARMANDO SHANNON, RN-Utilization Review 05/06/2019 12:11) Comment 6: Per [facility], admit approved with auth #[id number] given from 05/03-05/05/19. Next review date 05/06/19. (ARMANDO SHANNON, RN-Utilization Review 05/06/2019 08:05) Comment 7: Uploaded clinicals to [facility] administrators via [employer]. Manually faxed ARC form. (ARMANDO SHANNON, RN-Utilization Review 05/03/2019 13:31) CHARLA BARRAZA RN-Utilization Review - 05/13/2019 12:11 EDT documented in this encounter Plan of Treatment Not on file documented as of this encounter Visit Diagnoses Not on filedocumented in this encounter
--- OUTSIDE RECORDS SUMMARY | 2025-02-24 14:53 | XMS_ITS | Encounter Summary ---
Author Organization [employer] ([place], [place], [place], [place], [place]) Address [address] [place] [address] Care Team Providers Care District Manager Postal Service Name Role Phone Unavailable Primary Care Provider Unavailabl e Encounter Details Date Type Department Care Team (Late st Contact Info) Description 03/28/2018 Transcribed Document [facility] [place] [facility] [place] [address] ProviderMg MD [facility] [place] [address] Social History Tobacco Use Types Packs/Day Years Used Date Smoking Tobacco: Never Assessed Sex and Gender Information Value Date Recorded Sex Assigned at Not on file Legal Sex Male 1:09 PM CDT Gender Identity Not on file Sexual Orientation Not on file documented as of this encounter Miscellaneous Notes * Cerner Conversion Note - Historical ProviderMD - 03/28/2018 1:36 PM CHICKEN B[facility]ER [facility] Entered On: 03/29/2018 15:22 EST Performed On: 03/28/2018 13:36 EST by EDITH CHAVIS RN [facility]iac [facility] Pul[facility] Outpatient [facility] Phase 2 Cardiac Rehab Criteria Met : Heart failure (HF) Cardiac Outpatient Rehab Evaluation Comment : Order faxed to [place] per pt location. EDITH CHAVIS RN - 03/29/2018 15:22 EST documented in this encounter Plan of Treatment Not on file documented as of this encounter Visit Diagnoses Not on filedocumented in this encounter
--- OUTSIDE RECORDS SUMMARY | 2025-02-24 14:53 | XMS_ITS | Encounter Summary ---
Author Organization [facility] Address [address] [place] [address] Care Team Providers Care Interlocking Installer Name Role Phone Herberth Perez MD Primary Care Provider [phone] Katrin Oviedo RN Unavailable Zaida Lafleur EDUCATION LIAISON Unavailable [phone] Gracia Petersen EDUCATION LIAISON Unavailable Yunior Solorzano MD Unavailable [phone] Ross Baez DO Unavailable Edith Aleman RN Unavailable Unavailable Reason for Visit * Reason Comments Med Refill Encounter Details Date Type Department Care Team (Late st Contact Info) Description 10/08/2020 Refill [facility] Ot[facility] [address], [address] [place] [address] Deandre Sanchez MD [address] [place] [address] Social History Tobacco Use Types [...] Description 04/22/2025 9:00 AM EST Ancillary Procedure [facility] [place] [address] [place] [address] documented as of this encounter Visit Diagnoses [...] documented as of this encounter Care Teams Interlocking Installer Relationship Specialty Start Date End Date Herberth Perez MD [address] [place] [address] [place] [address] PCP - General 07/17/20 Katrin Oviedo RN [facility] PROGRAM [address] [place] [address] VAD Coordinator Cardiology 08/06/20 10/21/24 Zaida Lafleur APRN [address] [place] [address] Nurse Practitioner Advanced Heart Failure and Transplant Cardiology 08/06/20 06/11/23 Gracia Petersen APRN [address] [place] [address] Nurse Practitioner Internal Medicine 08/06/20 Yunior Solorzano MD [address] [place] [address] Consulting Physician Gastroenterology 07/18/22 Ross Baez DO [address] [address] Surgeon Cardiothoracic Surgery 07/18/22 Edith Aleman, TESTER WASTE DISPOSAL LEAKAGE None VAD Coordinator 10/14/24 documented as of this encounter
--- OUTSIDE RECORDS SUMMARY | 2025-02-24 14:53 | XMS_ITS | Encounter Summary ---
Author Organization [employer] ([place], [place], [place], [place], [place]) Address [address] [place] [address] Care Team Providers Care Club Attendant Name Role Phone Unavailable Primary Care Provider Unavailrodrick e Encounter Details Date Type Department Care Team (Late st Contact Info) Description 03/28/2018 Transcribed Document [facility] [place] [address] [place] [address] ProviderMg MD [facility] [place] [address] Social History Tobacco Use Types Packs/Day Years Used Date Smoking Tobacco: Never Assessed Sex and Gender Information Value Date Recorded Sex Assigned at Not on file Legal Sex Male 1:09 PM CDT Gender Identity Not on file Sexual Orientation Not on file documented as of this encounter Miscellaneous Notes * Cerner Conversion Note - Historical ProviderMD - 03/28/2018 1:36 PM LINING STUFFER Education-Cardiac Topics Entered On: 03/28/2018 14:58 EST Performed On: 03/28/2018 13:36 EST by BRIAN BEASLEY RN Teaching/Learning Assessment Barriers To Learning : None evident Highest Level of Education : Some college Learning Style Preferences Patient : None Learning Style Preferences Family : None BRIAN BEASLEY RN - 03/28/2018 14:58 EST Electronically signed by Jackie [facility] Conversion Ditch Rider Cerner at 06/19/2022 11:03 PM CDT documented in this encounter Plan of Treatment Not on file documented as of this encounter Visit Diagnoses Not on filedocumented in this encounter
--- OUTSIDE RECORDS SUMMARY | 2025-02-24 14:53 | XMS_ITS | Encounter Summary ---
Author Organization [facility] Address [address] [place] [address] Care Team Providers Care Base Filler Name Role Phone Herberth Perez MD Primary Care Provider Katrin Oviedo RN Unavailable [phone] Zaida Lafleur DUMP TRUCK DRIVER Unavailable Gracia Petersen DUMP TRUCK DRIVER Unavailable [phone] Yunior Solorzano MD Unavailable [phone] Ross Baez DO Unavailable Edith Aleman RN Unavailable Unavailable Encounter Details Date Type Department Care Team (Late st Contact Info) Description 11/10/2020 Community [facility] Community [facility] [address] [place] [address] Herberth Perez MD [address] [place] [address] Gross hematuria (Primary Dx) Social History [...] Description 04/22/2025 9:00 AM EST Ancillary Procedure [facility] [place] [facility] [address] [facility]. [address] [place] [address] documented as of this encounter Visit Diagnoses [...] documented as of this encounter Care Teams Base Filler Relationship Specialty Start Date End Date Herberth Perez MD [address] [place] [address] [place] [address] PCP - General 07/17/20 Katrin Oviedo, [facility] [address] [place] [address] VAD Coordinator Cardiology 08/06/20 10/21/24 Zaida Lafleur APRN [address] [place] [address] Nurse Practitioner Advanced Heart Failure and Transplant Cardiology 08/06/20 06/11/23 Gracia Petersen APRN [address] [place] [address] Nurse Practitioner Internal Medicine 08/06/20 Yunior Solorzano MD [address] [place] [address] Consulting Physician Gastroenterology 07/18/22 Ross Baez, DO [address] [place] [address] Surgeon Cardiothoracic Surgery 07/18/22 Edith Aleman, DIRECTIONAL SURVEY DRAFTER None VAD Coordinator 10/14/24 documented as of this encounter
--- OUTSIDE RECORDS SUMMARY | 2025-02-24 14:53 | XMS_ITS | Encounter Summary ---
Author Organization [facility] Address [address] [place] [address] Care Team Providers Care Studio Director Name Role Phone Herberth Perez MD Primary Care Provider Katrin Oviedo RN Unavailable [phone] Zaida Lafleur CULINARY SPECIALIST Unavailable Gracia Petersen CULINARY SPECIALIST Unavailable Yunior Solorzano MD Unavailable [phone] Ross Baez DO Unavailable [phone] Edith Aleman RN Unavailable Unavailable Encounter Details Date Type Department Care Team (Late st Contact Info) Description 05/21/2019 [facility] Historical OTTR [address] [place] [address] Shelbie Garcia, RN [facility] [id number] [address] [place] [address] Social History Tobacco Use Types Packs/Day Years [...] LVIDd 6.8cm, LVEF <20%. RHC performed at [facility] on 05/08/19 showed CI 1.6. SW [...] Description 04/22/2025 9:00 AM EST Ancillary Procedure [facility] [place] [address] [facility]. 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 MDRO Escalation Plan Comment:MDRO escalation plan through 05/06/24 04/15/2024 04/15/2024 04/20/2024 5:[address] documented as of this encounter Care Teams Studio Director Relationship Specialty Start Date End Date Herberth Perez MD [address] [place] [address] [place] [address] PCP - General 07/17/20 Katrin Oviedo RN [facility] [address] [place], [place] [phone] VAD Coordinator Cardiology 08/06/20 10/21/24 Zaida Lafleur APRN [address] [place] [address] Nurse Practitioner Advanced Heart Failure and Transplant Cardiology 08/06/20 06/11/23 Gracia Petersen APRN [address] [place] [address] Nurse Practitioner Internal Medicine 08/06/20 Yunior Solorzano MD [address] [address] Consulting Physician Gastroenterology 07/18/22 Ross Baez, DO [address] [place] [address] Surgeon Cardiothoracic Surgery 07/18/22 Edith Aleman, PHARMACY TECHNICIAN PER DIEM None VAD Coordinator 10/14/24 documented as of this encounter
--- OUTSIDE RECORDS SUMMARY | 2025-02-24 14:53 | XMS_ITS | Encounter Summary ---
Author Organization [employer] ([place], [place], [place], [place], [place]) Address [address] [place] [address] Care Team Providers Care X Ray Physician Name Role Phone Unavailable Primary Care Provider Unavailabl e Encounter Details Date Type Department Care Team (Late st Contact Info) Description 05/17/2019 Transcribed Document [facility] Family Medicine [facility] [place] [address] ProviderMg MD [facility] [place] [id number] Social History Tobacco Use Types Packs/Day Years [...] Problem list: Medical angina / SNOMED CT 220546476 / Confirmed Cardiac defibrillator in place / SNOMED CT 7975290787 / Confirmed interrogated at physicians office---02/22/13 pacemaker / SNOMED CT 5403778176 / Confirmed stroke / SNOMED CT 147522224 / Confirmed he had a stroke when they found the blood clot in valve History of obstructive sleep apnea / IMO 31252758 / Confirmed high cholesterol / SNOMED CT 57405344 / Confirmed hypertension / SNOMED CT 5865766146 / Confirmed myocardial infarction / SNOMED CT 08451770 / Confirmed sesonal allergies / SNOMED CT 5953526178 / Confirmed, Active Problems (16) stroke angina [...] Non-distended, Normal bowel sounds. Integumentary: Warm, Dry, [place], No rash. Results Review General results CArdiomems [...] will arrange for heart transplant team at [facility]. I had a long discussion with him and his regarding above plan and they feel comfortable going home today.. documented in this encounter Plan of Treatment Not on file documented as of this encounter Visit Diagnoses Not on filedocumented in this encounter
--- OUTSIDE RECORDS SUMMARY | 2025-02-24 14:53 | XMS_ITS | Encounter Summary ---
Author Organization [employer] ([place], [place], [place], [place], [place]) Address [address] [place] [address] Care Team Providers Care Core Finisher Name Role Phone Unavailable Primary Care Provider Unavailabl e Encounter Details Date Type Department Care Team (Late st Contact Info) Description 03/28/2018 Transcribed Document [facility] [place] Family Medicine [facility] [place] [address] ProviderMg MD [facility] [place] [id number] Social History Tobacco Use Types Packs/Day Years Used Date Smoking Tobacco: Never Assessed Sex and Gender Information Value Date Recorded Sex Assigned at Not on file Legal Sex Male 1:09 PM CDT Gender Identity Not on file Sexual Orientation Not on file documented as of this encounter Miscellaneous Notes * Cerner Conversion Note - Mg Ritchie MD - 03/28/2018 1:44 PM CREDIT ASSESSMENT ANALYST Patient: JOSE PEARSON Age: 47 years Sex: [...] Refill(s) fluticasone 50 mcg/inh nasal spray: 1 [place], Nostrils Both, Daily, 0 Refill(s) montelukast 10 [...] list: All Problems angina / SNOMED CT 414845894 / Confirmed Asthma / SNOMED CT 193060210 / Confirmed At risk for sleep apnea / IMO 34454978 / Confirmed cardiac defibulator / Confirmed interrogated at physicians office---02/22/13 pacemaker / SNOMED CT 5335198818 / Confirmed Cardiomyopathy / SNOMED CT 844286733 / Confirmed stroke / SNOMED CT 128164236 / Confirmed he had a stroke when they found the blood clot in valve 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 / Confirmed treated with blood thinners GERD - Gastro-esophageal reflux disease / SNOMED CT 7574415115 / Confirmed H/O: CVA / SNOMED CT 440867542 / Confirmed Heart failure / SNOMED CT 338970904 / Confirmed high cholesterol / SNOMED CT 95635683 / Confirmed Hyperlipidemia / SNOMED CT 72268007 / Confirmed hypertension / SNOMED CT 5955168332 / Confirmed myocardial infarction / SNOMED CT 82505113 / Confirmed sesonal allergies / Confirmed, Active [...] of motion, Normal strength. Integumentary: Warm, Dry, Datil. Neurologic: Alert, Oriented. Cognition and Speech: Oriented, [...]
--- OUTSIDE RECORDS SUMMARY | 2025-02-24 14:53 | XMS_ITS | Encounter Summary ---
Author Organization [employer] ([place], [place], [place], [place], [place]) Address [address] [place] [address] Care Team Providers Care Forensic Document Examiner Name Role Phone Unavailable Primary Care Provider Unavailrodrick e Encounter Details Date Type Department Care Team (Late st Contact Info) Description 03/28/2018 Transcribed Document [facility] [place] Family Medicine [address] [place] [address] ProviderMg MD [facility] [place] [address] Social History Tobacco Use Types Packs/Day Years Used Date Smoking Tobacco: Never Assessed Sex and Gender Information Value Date Recorded Sex Assigned at Not on file Legal Sex Male 1:09 PM CDT Gender Identity Not on file Sexual Orientation Not on file documented as of this encounter Miscellaneous Notes * Cerner Conversion Note - Historical ProviderMD - 03/28/2018 1:36 PM SOLAR PROJECT ENGINEER Education-(VTE) / (DVT) Entered On: 03/28/2018 14:58 [...]
--- OUTSIDE RECORDS SUMMARY | 2025-02-24 14:53 | XMS_ITS | Encounter Summary ---
Author Organization [employer] ([place], [place], [place], [place], [place]) Address [address] [place] [address] Care Team Providers Care Hub Lead Name Role Phone Unavailable Primary Care Provider Unavailabl e Encounter Details Date Type Department Care Team (Late st Contact Info) Description 2019 Transcribed Document [facility] [place] Family Medicine [facility] [place] [address] ProviderMg MD [facility] [place] [address] Social History Tobacco Use Types Packs/Day Years Used Date Smoking Tobacco: Never Assessed Sex and Gender Information Value Date Recorded Sex Assigned at Not on file Legal Sex Male 1:09 PM CDT Gender Identity Not on file Sexual Orientation Not on file documented as of this encounter Miscellaneous Notes * Cerner Conversion Note - Mg Ritchie MD - 2019 8:38 PM RESEARCH ASST Patient Education Materials Follows: Angiogram, Care After [...] and water are not available, use hand door puller. ? Change your dressing as told by [...] contrast dye from your body. ??? Take nnqx-oqv-peoifdp and prescription medicines only as told by [...] 09/08/2005 Document Revised: 01/25/2017 Document Reviewed: 01/25/2017 [employer] Interactive Patient Education ? 2019 [employer] Heart-Healthy Eating Plan Many factors influence [...] foods can I eat? Grains Breads, including Gibraltarian, white, raymundo, wheat, raisin, rye, oatmeal, and Thai. Tortillas that are neither fried nor made with lard or trans fat. Low-fat rolls, including hotdog and hamburger buns and Togolese muffins. Biscuits. Muffins. Waffles. Pancakes. Light popcorn. Whole-grain cereals. Flatbread. Berlin toast. Pretzels. Breadsticks. Rusks. Low-fat snacks and [...] cooking, baking, salads, and as spreads. Other Randolph powder. Coffee and tea. All seasonings and [...] cheese. Whole milk cheeses, including blue (ana), [place] Jl, Brie, Temo, Bermudian, Havarti, Gabonese, cheddar, Camembert, and [place]. Whole or 2% milk that is liquid, [...] that has suet, meat fat, or shortening. Randolph butter, hydrogenated oils, palm oil, coconut oil, [...] 11/29/2008 Document Revised: 09/09/2016 Document Reviewed: 08/14/2014 [employer] Interactive Patient Education ? 2019 [employer] Low-Sodium Eating Plan Sodium, which is [...] (monosodium glutamate). MSG is sometimes added to Beninese food, bouillon, and some canned foods. What [...] such as ricotta cheese, fresh mozzarella, or Gabonese cheese Low-sodium or reduced-sodium cheese. Cream cheese. [...] Vegetables Sauerkraut, pickled vegetables, and relishes. Olives. Gibraltarian fries. Onion rings. Regular canned vegetables (not [...] salad dressings. Salsa. Potato and tortilla chips. [place] chips and puffs. Salted popcorn and pretzels. [...] 08/12/2002 Document Revised: 02/13/2017 Document Reviewed: 02/13/2017 [employer] Interactive Patient Education ? 2019 [employer]. Heart-Healthy Eating Plan Heart-healthy meal planning includes: [...] foods can I eat? Grains Breads, including Gibraltarian, white, raymundo, wheat, raisin, rye, oatmeal, and Thai. Tortillas that are neither fried nor made with lard or trans fat. Low-fat rolls, including hotdog and hamburger buns and Togolese muffins. Biscuits. Muffins. Waffles. Pancakes. Light popcorn. Whole-grain cereals. Flatbread. Berlin toast. Pretzels. Breadsticks. Rusks. Low-fat snacks. Low-fat [...] cooking, baking, salads, and as spreads. Other Randolph powder. Coffee and tea. All seasonings and [...] cottage cheese. Whole-milk cheeses, including blue (ana), [place] Jl, Brie, Temo, Bermudian, Havarti, Gabonese, cheddar, Camembert, and [place]. Whole or 2% milk that is liquid, [...] that has suet, meat fat, or shortening. Randolph butter, hydrogenated oils, palm oil, coconut oil, [...] 08/21/2012 Document Revised: 07/28/2016 Document Reviewed: 08/14/2014 [employer] Interactive Patient Education ? 2019 [employer] Cardiovascular Living With Heart Failure Heart [...] failure, and improving your symptoms. ??? Take bvwd-fog-icefuyt and prescription medicines only as told by [...] provider about groups near you. ??? The [place] Heart Association: www.heart.org Contact a health care [...] 07/05/2017 Document Revised: 07/05/2017 Document Reviewed: 07/05/2017 [employer] Interactive Patient Education ? 2019 [employer] Heart Failure Heart failure is a [...] these instructions at home: Medicines ??? Take rrii-mzs-lqhcmtt and prescription medicines only as told by [...]
--- OUTSIDE RECORDS SUMMARY | 2025-02-24 14:53 | XMS_ITS | Encounter Summary ---
Author Organization [employer] ([place], [place], [place], [place], [place]) Address [address] [place] [address] Care Team Providers Care Glassware Selector Name Role Phone Unavailable Primary Care Provider Stefan pond Encounter Details Date Type Department Care Team (Late st Contact Info) Description 03/28/2018 Transcribed Document [facility] [place] Family Medicine [facility] [place] [address] ProviderMg MD [facility] [place], [place] [address] Social History Tobacco Use Types Packs/Day Years Used Date Smoking Tobacco: Never Assessed Sex and Gender Information Value Date Recorded Sex Assigned at Not on file Legal Sex Male 1:09 PM CDT Gender Identity Not on file Sexual Orientation Not on file documented as of this encounter Miscellaneous Notes * Cerner Conversion Note - Historical ProviderMD - 03/28/2018 1:21 PM BLOCKER AND POLISHER GOLD WHEEL Provider Notification Entered On: 03/28/2018 14:57 EST Performed On: 03/28/2018 13:21 EST by BRIAN BEASLEY RN Provider Notification Provider Notified of Concerns/Results : Other: sleep apnea Provider Notified of : Nurse concerns, Patient Arrival Provider Response : No new orders BRIAN BEASLEY RN - 03/28/2018 14:56 EST Electronically signed by Jackie [facility] Conversion Crop Research Scientist Cerner at 06/19/2022 10:56 PM CDT documented in this encounter Plan of Treatment Not on file documented as of this encounter Visit Diagnoses Not on filedocumented in this encounter
--- OUTSIDE RECORDS SUMMARY | 2025-02-24 14:54 | XMS_ITS | Encounter Summary ---
Author Organization [facility] Address [address] [place] [address] Care Team Providers Care Supervisor Engraving Name Role Phone Herberth Perez MD Primary Care Provider [phone] Gracia Petersen ASSOCIATE PROFESSOR OF LIBRARY SCIENCE Unavailable [phone] Yunior Solorzano MD Unavailable [phone] Ross Baez DO Unavailable [phone] Edith Aleman RN Unavailable Unavailable Encounter [...] first t janine in the morning (EYE-LEATHER PRODUCTION MACHINE OPERATOR) to steady your nerves or [...] Description 04/22/2025 9:00 AM EST Ancillary Procedure [facility] [place] [address] [place] [address] documented as of this encounter Goals Goal Patient Goal Type Associated Problems Recent Progress Patient-Stated? Author LVAD Short Term Goal General On track( 11:53 AM EDT) Yes Katrin Oviedo, RN Note: - 07/04/23: Patient states he wants to attend a wedding in November in [place] LVAD Layout Worker Goal General On track( 024 11:53 AM [...] documented as of this encounter Care Teams Supervisor Engraving Relationship Specialty Start Date End Date Herberth Perez MD [address] [place], [place] [id number] PCP - General 07/17/20 Gracia Petersen APRN [address] [place] [facility] [address] Nurse Practitioner Internal Medicine 08/06/20 Yunior Solorzano MD [address] [place] [address] Consulting Physician Gastroenterology 07/18/22 Ross Baez DO [address] [address] Surgeon Cardiothoracic Surgery 07/18/22 Edith Aleman, DRAPERY HEMMER AUTOMATIC None VAD Coordinator 10/14/24 documented as of this encounter
--- OUTSIDE RECORDS SUMMARY | 2025-02-24 14:54 | XMS_ITS | Encounter Summary ---
Author Organization [facility] Address [address] [place] [id number] Care Team Providers Care Warp Preparer Name Role Phone Herberth Perez MD Primary Care Provider [phone] Gracia Petersen PRESCRIPTION CLERK LENSES Unavailable [phone] Yunior Solorzano MD Unavailable [phone] Ross Baez DO Unavailable [phone] Edith Aleman RN Unavailable Unavailable Reason for Visit * Reason Onset Date Comments HCN - Patient Message 02/12/2025 Encounter Details Date Type Department Care Team (Late st Contact Info) Description 02/12/2025 Telephone [facility] [place] [address] [facility] [place] [address] Melisa Vazquez MD [address] [place] [address] HCN - Patient Message Social [...] time in the past 12 m [facility], were you homeless or living in a [...] drink first t janine in the morning (EYE-ROTOR COIL TAPER) to steady your nerves or to get [...] AM EST Clinical Concern/Question Reason for Call: [facility] is calling to see if we can fax back the orders they sentwith providers signature, Best contact number: Other: [phone] Optimal time of day to reach caller: ANYTIME Additional comments/information from caller: None Note: Please do not reply to this message. Follow-up communication and further actions as a result of this message need to be communicated with the patient directly, if the patient is not active onMyChart. If the patient is active on MyChart, they will receive notification of the communication/outcome via Nualighthart. documented in this encounter Plan of Treatment Upcoming Encounters Date Type Department Care Team (Late st Contact Info) Description 04/22/2025 9:00 AM EST Ancillary Procedure [facility] [place] [facility] [address] [place] [address] documented as of this encounter Goals Goal Patient Goal Type Associated Problems Recent Progress Patient-Stated? Author LVAD Short Term Goal General On track( 024 11:53 AM EDT) Yes Katrin Oviedo, RN Note: - 07/04/23: Patient states he wants to attend a wedding in November in [place] LVAD Senior Living Goal General On track( [...] documented as of this encounter Care Teams Warp Preparer Relationship Specialty Start Date End Date Herberth Perez MD [address] [place] [address] [place] [address] PCP - General 07/17/20 Gracia Petersen APRN [address] [place] [address] Nurse Practitioner Internal Medicine 08/06/20 Yunior Solorzano MD [address] [place] [address] Consulting Physician Gastroenterology 07/18/22 Ross Baez DO [address] [address] Surgeon Cardiothoracic Surgery 07/18/22 Edith Aleman, GARMENT INSPECTOR None VAD Coordinator 10/14/24 documented as of this encounter
--- OUTSIDE RECORDS SUMMARY | 2025-02-24 14:54 | XMS_ITS | Encounter Summary ---
Author Organization [facility] Address [address] [place] [address] Care Team Providers Care Corridor Redevelopment Manager Name Role Phone Herberth Perez MD Primary Care Provider [phone] Gracia Petersen AIRPLANE TECHNICIAN Unavailable [phone] Yunior Solorzano MD Unavailable [phone] Ross Baez DO Unavailable [phone] Edith Aleman RN Unavailable Unavailable Reason for Referral * Clinic-Administered Medication (Routine) - Pending Review Specialty Diagnoses / Procedures Referred By Yared díaz Referred To Contact Diagnoses Low iron Iron deficiency Cierra Orellana MD [address] [place] [address] Phone: tel: fax: Referral ID Status Reason Start Date Expiration Date V isits Requested Visits Authorized [id number] Pending Review 02/03/2025 08/05/2026 4 4 Encounter Details Date Type Department Care Team (Late st Contact Info) Description 02/03/2025 Refill [facility] [place] [facility] [address] [facility] 1st [address] [place] [address] Edith Aleman, COOK 3 PASTRY None Low iron; Iron deficiency Social History [...] any time in the past 12 m [facility], were you homeless or living [...] drink first t janine in the morning (EYE-SUPERVISOR BEAM DEPARTMENT) to steady your nerves or to get rid of a hangover? 0 09/19/2021 CAGE Questionnaire Score 0 022 Utilities Answer Date Recorded In the past 12 months has e [employer], gas, oil, or water [employer] threatened to shut off services in your [...] Description 04/22/2025 9:00 AM EST Ancillary Procedure [facility] [place] [facility] [address] [place] [address] documented as of this encounter Goals Goal Patient Goal Type Associated Problems Recent Progress Patient-Stated? Author LVAD Short Term Goal General On track( 024 11:53 AM EDT) Yes Katrin Oviedo, RN Note: - 07/04/23: Patient states he wants to attend a wedding in November in [place] LVAD Creche Attendant Goal General On track( 024 11:53 AM [...] documented as of this encounter Care Teams Corridor Redevelopment Manager Relationship Specialty Start Date End Date Herberth Perez MD [address] [place] [address] [place] [address] PCP - General 07/17/20 Gracia Petersen APRN [address] [place] [address] Nurse Practitioner Internal Medicine 08/06/20 Yunior Solorzano MD [address] [place] [address] Consulting Physician Gastroenterology 07/18/22 Ross Baez DO [address] [address] Surgeon Cardiothoracic Surgery 07/18/22 Edith Aleman, COOK 3 PASTRY None VAD Coordinator 10/14/24 documented as of this encounter
--- OUTSIDE RECORDS SUMMARY | 2025-02-24 14:54 | XMS_ITS | Encounter Summary ---
Author Organization [facility] Address [address] [place] [address] Care Team Providers Care Continuous Linter Drier Operator Name Role Phone Herberth Perez MD Primary Care Provider [phone] Gracia Petersen PIPE PROCESSOR Unavailable [phone] Yunior Solorzano MD Unavailable [phone] Ross Baez DO Unavailable [phone] Edith Aleman RN Unavailable Unavailable Encounter Details Date Type Department Care Team (Late st Contact Info) Description 01/27/2025 Orders Only [id number] [place] [address] Bita Dyer MD [address] [facility] [address] [place] [address] Infection associated with driveline of [...] to sleep or slept in a senior care (including now)? No 12/19/2023 PHQ-9 Answer Date [...] any time in the past 12 m [facility], were you homeless or living in a senior care (including now)? No 04/08/2024 CAGE ASSESSMENT Answer [...] drink first t janine in the morning (EYE-CONFERENCE DIRECTOR) to steady your nerves or to get [...] Description 04/22/2025 9:00 AM EST Ancillary Procedure [facility] [place] [address] [place] [address] documented as of this encounter Goals Goal Patient Goal Type Associated Problems Recent Progress Patient-Stated? Author LVAD Short Term Goal General On track( 024 11:53 AM EDT) Yes Katrin Oviedo, RN Note: - 07/04/23: Patient states he wants to attend a wedding in November in [place] LVAD Snf Goal General On track( 024 11:53 AM [...] documented as of this encounter Care Teams Continuous Linter Drier Operator Relationship Specialty Start Date End Date Herberth Perez MD [address] [place] [address] [place] [address] PCP - General 07/17/20 Gracia Petersen, PIPE PROCESSOR [address] [place] [address] Nurse Practitioner Internal Medicine 08/06/20 Yunior Solorzano MD [address] [facility] [address] [place] [address] Consulting Physician Gastroenterology 07/18/22 Ross Baez DO [address] [phone] Surgeon Cardiothoracic Surgery 07/18/22 Edith Aleman, COURT BAILIFF OR SHERIFF None VAD Coordinator 10/14/24 documented as of this encounter
--- OUTSIDE RECORDS SUMMARY | 2025-02-24 14:54 | XMS_ITS | Encounter Summary ---
Author Organization [facility] Address [address] [place] [address] Care Team Providers Care Fibrous Wallboard Inspector Name Role Phone Herberth Perez MD Primary Care Provider [phone] Gracia Petersen PRINT DEVELOPER AUTOMATIC Unavailable [phone] Yunior Solorzano MD Unavailable [phone] Ross Baez DO Unavailable [phone] Edith Aleman RN Unavailable Unavailable Encounter Details Date Type Department Care Team (Latest Contact Info) Description 01/28/2025 Anticoagulation - Warfarin Visit [facility] [place] [facility] [address] [facility] [address] [place] [address] Edith Aleman, ROOM SERVICE FOOD SERVER None LVAD (left ventricular assist device) present (CMS/[facility]) (Primary Dx); Anticoagulant long-term use Social History [...] any time in the past 12 m [facility], were you homeless or living in [...] drink first t janine in the morning (EYE-CERTIFIED MEDICAL ASSISTANT) to steady your nerves or to get rid of a hangover? 0 09/19/2021 CAGE Questionnaire Score 0 022 Utilities Answer Date Recorded In the past 12 months has e [employer], gas, oil, or water [employer] threatened to shut off services in your [...] Description 04/22/2025 9:00 AM EST Ancillary Procedure [facility] [place] [address] [place] [address] documented as of this encounter Goals Goal Patient Goal Type Associated Problems Recent Progress Patient-Stated? Author LVAD Short Term Goal General On track( 024 11:53 AM EDT) Yes Katrin Oviedo RN Note: - 07/04/23: Patient states he wants to attend a wedding in November in [place] LVAD Notching Press Operator Goal General On track( 024 11:53 [...] Blood Venous blood specimen / Unknown 01/27/2025 [facility] Provider POINT OF CARE TEST ENTER/SHERIF T ORDERABLES Final Result documented in this encounter Visit Diagnoses Diagnosis LVAD (left ventricular assist device) present ([facility]/HCC)- Primary Anticoagulant long-term use Encounter for long-term [...] documented as of this encounter Care Teams Fibrous Wallboard Inspector Relationship Specialty Start Date End Date Herberth Perez MD [address] [place] [address] [place] [address] PCP - General 07/17/20 Gracia Petersen APRN [address] [place] [address] Nurse Practitioner Internal Medicine 08/06/20 Yunior Solorzano MD [address] [place] [phone] Consulting Physician Gastroenterology 07/18/22 Ross Baez DO [address] [address] Surgeon Cardiothoracic Surgery 07/18/22 Edith Aleman, ROOM SERVICE FOOD SERVER None VAD Coordinator 10/14/24 documented as of this encounter
--- OUTSIDE RECORDS SUMMARY | 2025-02-24 14:54 | XMS_ITS | Encounter Summary ---
Author Organization [facility] Address [address] [place] [address] Care Team Providers Care Geriatric Case Manager Name Role Phone Herberth Perez MD Primary Care Provider [phone] Gracia Petersen BRIMMER BLOCKER Unavailable [phone] Yunior Solorzano MD Unavailable [phone] Rsos Baez DO Unavailable [phone] Edith Aleman RN Unavailable Unavailable Encounter Details Date Type Department Care Team (Late st Contact Info) Description 01/27/2025 [facility]phone [facility] [place] [address] [facility]. [address] [place] [address] Elisabet Raya MD [address] [place] [address] Social History Tobacco Use Types [...] time in the past 12 m [facility], were you homeless or living in a [...] drink first t janine in the morning (EYE-ART CLASS MODEL) to steady your nerves or to get rid of a hangover? 0 09/19/2021 CAGE Questionnaire Score 0 022 Utilities Answer Date Recorded In the past 12 months has e [employer], gas, oil, or water [employer] threatened to shut off services in your [...] Description 04/22/2025 9:00 AM EST Ancillary Procedure [facility] [place] [address] [place] [address] documented as of this encounter Goals Goal Patient Goal Type Associated Problems Recent Progress Patient-Stated? Author LVAD Short Term Goal General On track( 024 11:53 AM EDT) Yes Katrin Oviedo, RN Note: - 07/04/23: Patient states he wants to attend a wedding in November in [place] LVAD Transporter Driver Goal General On track( 024 11:53 AM [...] documented as of this encounter Care Teams Geriatric Case Manager Relationship Specialty Start Date End Date Herberth Perez MD [address] [place] [address] [place] [address] PCP - General 07/17/20 Gracia Petersen APRN [address] [place] [address] Nurse Practitioner Internal Medicine 08/06/20 Yunior Solorzano MD [address] [place] [address] Consulting Physician Gastroenterology 07/18/22 Ross Baez DO [address] [phone] Surgeon Cardiothoracic Surgery 07/18/22 Edith Aleman, STEEL MOLDER None VAD Coordinator 10/14/24 documented as of this encounter
--- OUTSIDE RECORDS SUMMARY | 2025-02-24 14:54 | XMS_ITS | Encounter Summary ---
Author Organization Healthcare Address [address] [place] [address] Care Team Providers Care Clip Loading Machine Feeder Name Role Phone Herberth Perez MD Primary Care Provider [phone] Gracia Petersen INSTRUCTIONAL PARAPROFESSIONAL Unavailable [phone] Yunior Solorzano MD Unavailable [phone] Ross Baez DO Unavailable [phone] Edith Aleman RN Unavailable Unavailable Encounter Details Date Type Department Care Team (Late st Contact Info) Description 01/29/2025 [facility] [place] [address] [place] [address] Edith Aleman, MUFFLE WORKER None Low iron (Primary Dx); Iron deficiency [...] time in the past 12 m [facility], were you homeless or living [...] drink first t janine in the morning (EYE-OPENSTACK DEVELOPER) to steady your nerves or to get [...] Description 04/22/2025 9:00 AM EST Ancillary Procedure [facility] [place] [address] [place] [address] documented as of this encounter Goals Goal Patient Goal Type Associated Problems Recent Progress Patient-Stated? Author LVAD Short Term Goal General On track( 11:53 AM EDT) Yes Katrin Oviedo, RN Note: - 07/04/23: Patient states he wants to attend a wedding in November in [place] LVAD Assisted Goal General On track( 11:53 AM EDT) [...] documented as of this encounter Care Teams Clip Loading Machine Feeder Relationship Specialty Start Date End Date Herberth Perez MD [address] [place] [address] [place] [address] PCP - General 07/17/20 Gracia Petersen APRN [address] [place] [address] Nurse Practitioner Internal Medicine 08/06/20 Yunior Solorzano MD [address] [place] [address] Consulting Physician Gastroenterology 07/18/22 Ross Baez, DO [address] [phone] Surgeon Cardiothoracic Surgery 07/18/22 Edith Aleman, MUFFLE WORKER None VAD Coordinator 10/14/24 documented as of this encounter
--- OUTSIDE RECORDS SUMMARY | 2025-02-24 14:54 | XMS_ITS | Encounter Summary ---
Author Organization [facility] Address [address] [place] [address] Care Team Providers Care Acute Care Nurse Name Role Phone Herberth Perez MD Primary Care Provider [phone] Gracia Petersen METAL REFINER Unavailable [phone] Yunior Solorzano MD Unavailable [phone] Ross Baez DO Unavailable [phone] Edith Aleman RN Unavailable Unavailable Encounter Details Date Type Department Care Team (Latest Contact Info) Description 02/11/2025 Anticoagulation - Warfarin Visit [facility] [place] [address] [facility] [address] [place] [address] Edith Aleman, KAIWHAKAHAERE None LVAD (left ventricular assist device) present (CMS/[facility]) (Primary Dx); Anticoagulant long-term use [...] place to sleep or slept in a halfway (including now)? No 12/19/2023 PHQ-9 Answer Date [...] were you homeless or living in a halfway (including now)? No 04/08/2024 CAGE ASSESSMENT Answer [...] drink first t janine in the morning (EYE-FITTINGS TIGHTENER) to steady your nerves or to get rid of a hangover? 0 09/19/2021 CAGE Questionnaire Score 0 022 Utilities Answer Date Recorded In the past 12 months has e [employer], gas, oil, or water [employer] threatened to shut off services in your [...] Description 04/22/2025 9:00 AM EST Ancillary Procedure [facility] [place] [address] [place] [address] documented as of this encounter Goals Goal Patient Goal Type Associated Problems Recent Progress Patient-Stated? Author LVAD Short Term Goal General On track( 024 11:53 AM EDT) Yes Katrin Oviedo RN Note: - 07/04/23: Patient states he wants to attend a wedding in November in [place] LVAD Drilling Foreman Goal General On track( 024 11:53 AM [...] Venous blood specimen / Unknown 02/10/2025 [facility] Provider POINT OF CARE TEST ENTER/SHERIF T ORDERABLES Final Result documented in this encounter Visit Diagnoses Diagnosis LVAD (left ventricular assist device) present ([facility])- Primary Anticoagulant long-term use Encounter [...] documented as of this encounter Care Teams Acute Care Nurse Relationship Specialty Start Date End Date Herberth Perez MD [address] [place] [address] [place] [address] PCP - General 07/17/20 Gracia Petersen APRN [address] [place] [address] Nurse Practitioner Internal Medicine 08/06/20 Yunior Solorzano MD [address] [place] [address] Consulting Physician Gastroenterology 07/18/22 Ross Baez DO [address] [address] Surgeon Cardiothoracic Surgery 07/18/22 Edith Aleman, KAIWHAKAHAERE None VAD Coordinator 10/14/24 documented as of this encounter
--- OUTSIDE RECORDS SUMMARY | 2025-02-24 14:54 | XMS_ITS | Encounter Summary ---
Author Organization [facility] Address [address] [place] [address] Care Team Providers Care Acting Manager Name Role Phone Herberth Perez MD Primary Care Provider [phone] Gracia Petersen DIRECTOR OF SPECIAL EDUCATION Unavailable [phone] Yunior Solorzano MD Unavailable [phone] Ross Baez DO Unavailable [phone] Edith Aleman RN Unavailable Unavailable Encounter Details Date Type Department Care Team (Latest Contact Info) Description 01/20/2025 Anticoagulation - Warfarin Visit [facility] [place] [address] [facility] [address] [place] [address] Edith Aleman, QUALITY ASSURANCE COACH None LVAD (left ventricular assist device) present (CMS/[facility]) (Primary Dx); Anticoagulant long-term use Social [...] place to sleep or slept in a long term (including now)? No 12/19/2023 PHQ-9 Answer Date [...] any time in the past 12 m [facility], were you homeless or living in a long term (including now)? No 04/08/2024 CAGE ASSESSMENT Answer [...] drink first t janine in the morning (EYE-MOTOR TRANSPORT INSPECTOR) to steady your nerves or to get rid of a hangover? 0 09/19/2021 CAGE Questionnaire Score 0 022 Utilities Answer Date Recorded In the past 12 months has e [employer], gas, oil, or water [employer] threatened to shut off services in [...] Description 04/22/2025 9:00 AM EST Ancillary Procedure [facility] [place] [address] [place] [address] documented as of this encounter Goals Goal Patient Goal Type Associated Problems Recent Progress Patient-Stated? Author LVAD Short Term Goal General On track( 024 11:53 AM EDT) Yes Katrin Oviedo RN Note: - 07/04/23: Patient states he wants to attend a wedding in November in [place] LVAD Nonprofit Fundraiser Goal General On track( 024 11:53 AM EDT) Yes Katrin Oviedo RN Note: - 07/04/23: Patient states he wants to meet his grandchild when they are born in November documented as of this encounter Visit Diagnoses Diagnosis LVAD (left ventricular assist device) present ([facility])- Primary Anticoagulant long-term use Encounter for [...] documented as of this encounter Care Teams Acting Manager Relationship Specialty Start Date End Date Herberth Perez MD [address] [place] [address] [place] [address] PCP - General 07/17/20 Gracia Petersen APRN [address] [place] [place] [address] Nurse Practitioner Internal Medicine 08/06/20 Yunior Solorzano MD [address] [facility] [address] [place] [address] Consulting Physician Gastroenterology 07/18/22 Ross Baez, [address] [phone] Surgeon Cardiothoracic Surgery 07/18/22 Edith Aleman, QUALITY ASSURANCE COACH None VAD Coordinator 10/14/24 documented as of this encounter
--- OUTSIDE RECORDS SUMMARY | 2025-02-24 14:54 | XMS_ITS | Encounter Summary ---
Author Organization [facility] Address [address] [place] [address] Care Team Providers Care Tariff Compiler Name Role Phone Herberth Perez MD Primary Care Provider [phone] Gracia Petersen XEROX MACHINE ASSEMBLER Unavailable [phone] Yunior Solorzano MD Unavailable [phone] Ross Baez DO Unavailable [phone] Edith Aleman RN Unavailable Unavailable Reason for Referral * Clinic-Administered Medication (Routine) - Pending Review Specialty Diagnoses / Procedures Referred By Yared díaz Referred To Contact Diagnoses Iron deficiency Cierra Orellana MD [address] [place] [address] Phone: tel: fax: Referral ID Status Reason Start Date Expiration Date V isits Requested Visits Authorized [id number] Pending Review 01/29/2025 07/31/2026 5 5 Encounter Details Date Type Department Care Team (Late st Contact Info) Description 01/29/2025 Refill [facility] [place] [address] [facility] 1st Floor [address] [place] [address] Edith Aleman, HUMAN CAPITAL CONSULTANT None Iron deficiency (Primary Dx) Social History [...] drink first t janine in the morning (EYE-GREY WASHER) to steady your nerves or to get rid of a hangover? 0 09/19/2021 CAGE Questionnaire Score 0 022 Utilities Answer Date Recorded In the past 12 months has e [employer], gas, oil, or water company threatened to [...] Description 04/22/2025 9:00 AM EST Ancillary Procedure [facility] [place] [address] [place] [address] documented as of this encounter Goals Goal Patient Goal Type Associated Problems Recent Progress Patient-Stated? Author LVAD Short Term Goal General On track( 024 11:53 AM EDT) Yes Katrin Oviedo, RN Note: - 07/04/23: Patient states he wants to attend a wedding in November in [place] LVAD Fci Goal General On track( 024 [...] documented as of this encounter Care Teams Tariff Compiler Relationship Specialty Start Date End Date Herberth Perez MD [address] [place] [address] [place] [address] PCP - General 07/17/20 Gracia Petersen, LORI [address] [place] [address] Nurse Practitioner Internal Medicine 08/06/20 Yunior Solorzano MD [address] [place] [address] Consulting Physician Gastroenterology 07/18/22 Ross Baez DO [address] [address] Surgeon Cardiothoracic Surgery 07/18/22 Edith Aleman, HUMAN CAPITAL CONSULTANT None VAD Coordinator 10/14/24 documented as of this encounter
--- OUTSIDE RECORDS SUMMARY | 2025-02-24 14:54 | XMS_ITS | Encounter Summary ---
Author Organization [facility] Address [address] [place] [id number] Care Team Providers Care Diagnostic Cardiac Sonographer Name Role Phone Herberth Perez MD Primary Care Provider [phone] Gracia Petersen GUNNER MATE Unavailable [phone] Yunior Solorzano MD Unavailable [phone] Ross Baez DO Unavailable [phone] Edith Aleman RN Unavailable Unavailable Reason for Visit * Reason Onset Date Comments HCN - Patient Message 02/03/2025 Encounter Details Date Type Department Care Team (Late st Contact Info) Description 02/03/2025 Telephone [facility] [place] [address] [facility]. [address] [place] [address] Cierra Orellana MD [address] [place] [address] HCN - Patient Message Social [...] drink first t janine in the morning (EYE-LEARNING SERVICES COORDINATOR) to steady your nerves or to get [...] PM EST Clinical Concern/Question Reason for Call: [facility] need orders updated, they need verification on what IV product the provider Is requesting and also the dosing. Please update and fax back to # [phone] Best contact number: Other: [phone] Optimal time of day to reach caller: ANYTIME Additional comments/information from caller: None Note: Please do not reply to this message. Follow-up communication and further actions as a result of this message need to be communicated with the patient directly, if the patient is not active onMyChart. If the patient is active on MyChart, they will receive notification of the communication/outcome via [facility] [place]. documented in this encounter Plan of Treatment Upcoming Encounters Date Type Department Care Team (Late st Contact Info) Description 04/22/2025 9:00 AM EST Ancillary Procedure [facility] [place] [address] [place] [address] documented as of this encounter Goals Goal Patient Goal Type Associated Problems Recent Progress Patient-Stated? Author LVAD Short Term Goal General On track( 024 11:53 AM EDT) Yes Katrin Oviedo, RN Note: - 07/04/23: Patient states he wants to attend a wedding in November in [place] LVAD Skilled Nursing Goal General On track( 024 11:53 AM [...] documented as of this encounter Care Teams Diagnostic Cardiac Sonographer Relationship Specialty Start Date End Date Herberth Perez MD [address] [place] [address] [place] [address] PCP - General 07/17/20 Gracia Petersen APRN [address] [place] [address] Nurse Practitioner Internal Medicine 08/06/20 Yunior Solorzano MD [address] [place] [address] Consulting Physician Gastroenterology 07/18/22 Ross Baez, DO [address] [phone] Surgeon Cardiothoracic Surgery 07/18/22 Edith Aleman, AP PROCESSOR None VAD Coordinator 10/14/24 documented as of this encounter
--- OUTSIDE RECORDS SUMMARY | 2025-02-24 14:54 | XMS_ITS | Encounter Summary ---
Author Organization Healthcare Address [address] [place] [address] Care Team Providers Care Human Resource Statistician Name Role Phone Herberth Perez MD Primary Care Provider [phone] Gracia Petersen SODA DRY HOUSE OPERATOR Unavailable [phone] Yunior Solorzano MD Unavailable [phone] Ross Baez DO Unavailable [phone] Edith Aleman RN Unavailable Unavailable Encounter Details Date Type Department Care Team (Late st Contact Info) Description 01/27/2025 [facility] [place] [address] [place] [address] Edith Aleman, MUSICAL STRING MAKER None Social History Tobacco Use Types Packs/Day [...] any time in the past 12 m [facility], were you homeless or [...] drink first t janine in the morning (EYE-FRAME STYLIST) to steady your nerves or to get [...] Description 04/22/2025 9:00 AM EST Ancillary Procedure [facility] [place] [address] [place] [address] documented as of this encounter Goals Goal Patient Goal Type Associated Problems Recent Progress Patient-Stated? Author LVAD Short Term Goal General On track( 11:53 AM EDT) Yes Katrin Oviedo, MARYCARMEN Note: - 07/04/23: Patient states he wants to attend a wedding in November in [place] LVAD Industrial Technologist Goal General On track( 11:53 AM EDT) [...] documented as of this encounter Care Teams Human Resource Statistician Relationship Specialty Start Date End Date Herberth Perez MD [address] [place] [address] [place] [address] PCP - General 07/17/20 Gracia Petersen APRN [address] [place] [address] Nurse Practitioner Internal Medicine 08/06/20 Yunior Solorzano MD [address] [place] [address] Consulting Physician Gastroenterology 07/18/22 Ross Baez, [address] [phone] Surgeon Cardiothoracic Surgery 07/18/22 Edith Aleman, MUSICAL STRING MAKER None VAD Coordinator 10/14/24 documented as of this encounter
--- OUTSIDE RECORDS SUMMARY | 2025-02-24 14:54 | XMS_ITS | Encounter Summary ---
Author Organization [facility] Address [address] [place] [id number] Care Team Providers Care Ditch Inspector Name Role Phone Herberth Perez MD Primary Care Provider [phone] Gracia Petersen SOFTWARE SUPPORT ANALYST Unavailable [phone] Yunior Solorzano MD Unavailable [phone] [address] Baez DO Unavailable [phone] Edith Aleman RN Unavailable Unavailable Reason for Visit * Reason Comments Med Refill Encounter Details Date Type Department Care Team (Late st Contact Info) Description 01/14/2025 Refill [facility] [place] 800 [facility] 1st Floor [address] [place] [address] Martine Taylor, RN [facility] HE[facility] VAD PROGRAM 800 [place] [address] Social History Tobacco Use Types Packs/Day Years [...] any time in the past 12 m [facility], were you homeless or living [...] drink first t janine in the morning (EYE-STORES NAVAL) to steady your nerves or to get rid of a hangover? 0 09/19/2021 CAGE Questionnaire Score 0 Utilities Answer Date Recorded In the past 12 months has th e [employer], gas, oil, or water company threatened to [...] Description 04/22/2025 9:00 AM EST Ancillary Procedure [facility] [place] [address] [place] [address] documented as of this encounter Goals Goal Patient Goal Type Associated Problems Recent Progress Patient-Stated? Author LVAD Short Term Goal General On track( 11:53 AM EDT) Yes Katrin Oviedo RN Note: - 07/04/23: Patient states he wants to attend a wedding in November in [place] LVAD Prison Goal General On track( 024 [...] documented as of this encounter Care Teams Ditch Inspector Relationship Specialty Start Date End Date Herberth Perez MD [address] [place] [address] [place] [address] PCP - General 07/17/20 Gracia Petersen APRN [address] [place] [address] Nurse Practitioner Internal Medicine 08/06/20 Yunior Solorzano MD [address] [place] [address] Consulting Physician Gastroenterology 07/18/22 Ross Baez, [address] [phone] Surgeon Cardiothoracic Surgery 07/18/22 Edith Aleman, METROLOGIST None VAD Coordinator 10/14/24 documented as of this encounter
--- OUTSIDE RECORDS SUMMARY | 2025-02-24 14:54 | XMS_ITS | Encounter Summary ---
Author Organization [facility] Address [address] [place] [address] Care Team Providers Care Blocker And Sewer Name Role Phone Herberth Perez MD Primary Care Provider Katrin Oviedo RN Unavailable [phone] Zaida Lafleur SENIOR CUSTOMER SERVICE REPRESENTATIVE Unavailable Gracia Petersen SENIOR CUSTOMER SERVICE REPRESENTATIVE Unavailable Yunior Solorzano MD Unavailable [phone] Ross Baez DO Unavailable [phone] Edith Aleman RN Unavailable Unavailable Reason for Visit * Reason Comments Med Refill Encounter Details Date Type Department Care Team (Late st Contact Info) Description 11/14/2021 Refill [facility] [place] [address] [place] [address] Dina Saldana, SENIOR CUSTOMER SERVICE REPRESENTATIVE [address] [place] [address] Social History Tobacco Use Types Packs/Day Years [...] drink first t janine in the morning (EYE-CAFE ATTENDANT) to steady your nerves or to [...] Description 04/22/2025 9:00 AM EST Ancillary Procedure [facility] [place] [address] [facility]. [address] [place] [address] documented as of this encounter Visit Diagnoses [...] documented as of this encounter Care Teams Blocker And Sewer Relationship Specialty Start Date End Date Herberth Perez MD [address] [place] [address] [place] [address] PCP - General 07/17/20 Katrin Oviedo, RN [facility] VAD PROGRAM 800 [place] [address] VAD Coordinator Cardiology 08/06/20 10/21/24 Zaida Lafleur APRN 800 [place] [address] Nurse Practitioner Advanced Heart Failure and Transplant Cardiology 08/06/20 06/11/23 Gracia Petersen APRN [address] [place] [address] Nurse Practitioner Internal Medicine 08/06/20 Yunior Solorzano MD [address] [facility] [address] [place] [address] Consulting Physician Gastroenterology 07/18/22 Ross Baez, DO [address] [place] [address] Surgeon Cardiothoracic Surgery 07/18/22 Edith Aleman, GENERALIST None VAD Coordinator 10/14/24 documented as of this encounter
--- OUTSIDE RECORDS SUMMARY | 2025-02-24 14:54 | XMS_ITS | Encounter Summary ---
Author Organization Healthcare Address [address] [place] [address] Care Team Providers Care Feeder Catcher Tobacco Name Role Phone Herberth Perez MD Primary Care Provider [phone] Gracia Petersen PRE SALES TECHNICAL CONSULTANT Unavailable [phone] Yunior Solorzano MD Unavailable Ross Baez DO Unavailable [phone] Edith Aleman RN Unavailable Unavailable Encounter Details Date Type Department Care Team (Late st Contact Info) Description 02/03/2025 [facility] [place] [address]st [address] [place] [address] Edith Aleman, BIOLOGICAL SCIENCES INSTRUCTOR None Low iron; Iron deficiency Social History [...] any time in the past 12 m [facility], were you homeless or living in a [...] drink first t janine in the morning (EYE-POT FIRER) to steady your nerves or to get [...] Description 04/22/2025 9:00 AM EST Ancillary Procedure [facility] [place] [address] [place] [address] documented as of this encounter Goals Goal Patient Goal Type Associated Problems Recent Progress Patient-Stated? Author LVAD Short Term Goal General On track( 11:53 AM EDT) Yes Katrin Oviedo, RN Note: - 07/04/23: Patient states he wants to attend a wedding in November in [place] LVAD Chain Maker Hand Goal General On track( 024 11:53 [...] documented as of this encounter Care Teams Feeder Catcher Tobacco Relationship Specialty Start Date End Date Herberth Perez MD [address] [place] [address] [place] [address] PCP - General 07/17/20 Gracia Petersen APRN [address] [place] [phone] Nurse Practitioner Internal Medicine 08/06/20 Yunior Solorzano MD [address] [facility] [address] [place] [address] Consulting Physician Gastroenterology 07/18/22 Ross Baez, [address] [phone] Surgeon Cardiothoracic Surgery 07/18/22 Edith Aleman, BIOLOGICAL SCIENCES INSTRUCTOR None VAD Coordinator 10/14/24 documented as of this encounter
--- OUTSIDE RECORDS SUMMARY | 2025-02-24 14:54 | XMS_ITS | Encounter Summary ---
Author Organization [facility] Address [address] [place] [address] Care Team Providers Care Television Writer Name Role Phone Herberth Perez MD Primary Care Provider [phone] Gracia Petersen ASSEMBLER 1ST SHIFT Unavailable [phone] Yunior Solorzano MD Unavailable [phone] Ross Baez DO Unavailable [phone] Edith Aleman RN Unavailable Unavailable Encounter Details Date Type Department Care Team (Latest Contact Info) Description 02/03/2025 Anticoagulation - Warfarin Visit [facility] [place] [address] [facility] [address] [place] [phone] Edith Aleman, PATTERNMAKER APPRENTICE METAL None LVAD (left ventricular assist device) present (CMS/[facility]) (Primary Dx); Anticoagulant long-term use Social [...] any time in the past 12 m [facility], were you homeless or living [...] drink first t janine in the morning (EYE-OIL WELL SHOOTER) to steady your nerves or to get rid of a hangover? 0 09/19/2021 CAGE Questionnaire Score 0 022 Utilities Answer Date Recorded In the past 12 months has e [employer], gas, oil, or water [employer] threatened to shut off services in your [...] Description 04/22/2025 9:00 AM EST Ancillary Procedure [facility] [place] [address] [place] [address] documented as of this encounter Goals Goal Patient Goal Type Associated Problems Recent Progress Patient-Stated? Author LVAD Short Term Goal General On track( 024 11:53 AM EDT) Yes Katrin Oviedo RN Note: - 07/04/23: Patient states he wants to attend a wedding in November in [place] LVAD Service Delivery Manager Goal General On track( 024 11:53 [...] Blood Venous blood specimen / Unknown 02/02/2025 [facility] Provider POINT OF CARE TEST ENTER/SHERIF T ORDERABLES Final Result documented in this encounter Visit Diagnoses Diagnosis LVAD (left ventricular assist device) present ([facility])- Primary Anticoagulant long-term use Encounter for [...] documented as of this encounter Care Teams Television Writer Relationship Specialty Start Date End Date Herberth Perez MD [address] [place] [address] [place] [address] PCP - General 07/17/20 Gracia Petersen APRN [address] [place] [address] Nurse Practitioner Internal Medicine 08/06/20 Yunior Solorzano MD [address] [place] [address] Consulting Physician Gastroenterology 07/18/22 Ross Baez DO [address] [address] Surgeon Cardiothoracic Surgery 07/18/22 Edith Aleman, PATTERNMAKER APPRENTICE METAL None VAD Coordinator 10/14/24 documented as of this encounter
--- OUTSIDE RECORDS SUMMARY | 2025-02-24 14:54 | XMS_ITS | Encounter Summary ---
Author Organization [facility] Address [address] [place] [address] Care Team Providers Care Margarine Churn Operator Name Role Phone Herberth Perez MD Primary Care Provider [phone] Gracia Petersen AVP Unavailable [phone] Yunior Solorzano MD Unavailable [phone] Ross Baez DO Unavailable [phone] Edith Aleman RN Unavailable Unavailable Encounter [...] drink first t janine in the morning (EYE-NUCLEAR PLANT CONSTRUCTION WORKER) to steady your nerves or to [...] Description 04/22/2025 9:00 AM EST Ancillary Procedure [facility] [place] [address] [place] [address] documented as of this encounter Goals Goal Patient Goal Type Associated Problems Recent Progress Patient-Stated? Author LVAD Short Term Goal General On track( 11:53 AM EDT) Yes Katrin Oviedo, RN Note: - 07/04/23: Patient states he wants to attend a wedding in November in [place] LVAD Marketing Project Coordinator Goal General On track( 024 11:53 AM [...] documented as of this encounter Care Teams Margarine Churn Operator Relationship Specialty Start Date End Date Herberth Perez MD [address] [place], [place] [phone] PCP - General 07/17/20 Gracia Petersen APRN [address] [place] [address] Nurse Practitioner Internal Medicine 08/06/20 Yunior Solorzano MD [address] [place] [address] Consulting Physician Gastroenterology 07/18/22 Ross Baez DO [address] [address] Surgeon Cardiothoracic Surgery 07/18/22 Edith Aleman, PAEDIATRICIAN None VAD Coordinator 10/14/24 documented as of this encounter
--- OUTSIDE RECORDS SUMMARY | 2025-02-24 14:54 | XMS_ITS | Encounter Summary ---
Author Organization [facility] Address [address] [place] [address] Care Team Providers Care Meat Puller Name Role Phone Herberth Perez MD Primary Care Provider [phone] Gracia Petersen INVESTIGATION CLERK Unavailable [phone] Yunior Solorzano MD Unavailable [phone] Ross Baez DO Unavailable [phone] Edith Aleman RN Unavailable Unavailable Encounter [...] first t janine in the morning (EYE-ASSISTANT PRODUCER) to steady your nerves or to get [...] Description 04/22/2025 9:00 AM EST Ancillary Procedure [facility] [place] [address] [place] [address] documented as of this encounter Goals Goal Patient Goal Type Associated Problems Recent Progress Patient-Stated? Author LVAD Short Term Goal General On track( 11:53 AM EDT) Yes Katrin Oviedo, RN Note: - 07/04/23: Patient states he wants to attend a wedding in November in [place] LVAD Steam Blocker Goal General On track( 024 11:53 AM [...] documented as of this encounter Care Teams Meat Puller Relationship Specialty Start Date End Date Herberth Perez MD [address] [place] [address] [place] [address] PCP - General 07/17/20 Gracia Petersen APRN [address] [place] [address] Nurse Practitioner Internal Medicine 08/06/20 Yunior Solorzano MD [address] [place] [address] Consulting Physician Gastroenterology 07/18/22 Ross Baez DO [address] [address] Surgeon Cardiothoracic Surgery 07/18/22 Edith Aleman, SOAP WORKER None VAD Coordinator 10/14/24 documented as of this encounter
--- OUTSIDE RECORDS SUMMARY | 2025-02-24 14:54 | XMS_ITS | Encounter Summary ---
Author Organization [facility] Address [address] [place] [address] Care Team Providers Care Administrative Job Titles Name Role Phone Herberth Perez MD Primary Care Provider [phone] Gracia Petersen ALARM SECURITY OR SURVEILLANCE MONITOR Unavailable [phone] Yunior Solorzano MD Unavailable [phone] Ross Baez DO Unavailable [phone] Edith Aleman RN Unavailable Unavailable Encounter Details Date Type Department Care Team (Late st Contact Info) Description 01/24/2025 Orders Only [place] [place] [address] 1st [address] [place] [address] Edith Aleman, DIE SIZER None Infection associated with driveline of left [...] in the past 12 m [facility], were you homeless or living [...] drink first t janine in the morning (EYE-CELLULAR EQUIPMENT INSTALLER) to steady your nerves or to get rid of a hangover? 0 09/19/2021 CAGE Questionnaire Score 0 022 Utilities Answer Date Recorded In the past 12 months has e [employer], gas, oil, or water company threatened to [...] Description 04/22/2025 9:00 AM EST Ancillary Procedure [place] [facility] [place] [address] [place] [address] documented as of this encounter Goals Goal Patient Goal Type Associated Problems Recent Progress Patient-Stated? Author LVAD Short Term Goal General On track( 11:53 AM EDT) Yes Katrin Oviedo RN Note: - 07/04/23: Patient states he wants to attend a wedding in November in [place] LVAD Residential Goal General On track( 11:53 AM EDT) [...] as of this encounter Care Teams Administrative Job Titles Relationship Specialty Start Date End Date Herberth Perez MD [address] [place] [address] [place] [address] PCP - General 07/17/20 Gracia Petersen APRN [address] [place] [address] Nurse Practitioner Internal Medicine 08/06/20 Yunior Solorzano MD [address] [place] [address] Consulting Physician Gastroenterology 07/18/22 Ross Baez, DO [address] [phone] Surgeon Cardiothoracic Surgery 07/18/22 Edith Aleman, DIE SIZER None VAD Coordinator 10/14/24 documented as of this encounter
--- OUTSIDE RECORDS SUMMARY | 2025-02-24 14:54 | XMS_ITS | Encounter Summary ---
Author Organization [employer] ([place], [place], [place], [place], [place]) Address [address] [place] [address] Care Team Providers Care Fire Marshal Refinery Name Role Phone Unavailable Primary Care Provider Unavailabl e Encounter Details Date Type Department Care Team (Late st Contact Info) Description 04/13/2019 Transcribed Document [facility] [place] [facility] [place] [address] ProviderMg MD [facility] [place] [id number] Social History Tobacco Use Types Packs/Day Years Used Date Smoking Tobacco: Never Assessed Sex and Gender Information Value Date Recorded Sex Assigned at Not on file Legal Sex Male 1:09 PM CDT Gender Identity Not on file Sexual Orientation Not on file documented as of this encounter Miscellaneous Notes * [employer] Conversion Note - Mg ProviderMD - 04/13/2019 5:29 PM FORM COVERER Final Discharge Planning Entered On: 04/13/2019 17:29 EST Performed On: 04/13/2019 17:29 EST by ADELAIDE SOLARES, Rn-Associate Professor Of History Final Discharge Planning Discharge Arrangements : Patient Post-Acute Information Patient Name: JOSE PEARSON Gender: Male : [birth year] Age: 48 Years No Post-Acute Placement(s) Listed No Post-Acute Service(s) Listed No [place] Referral(s) Listed Discharge To Care Management : Home/Residential/Senior Care or Self Care -01 ADELAIDE SOLARES, Rn-Associate Professor Of History - 04/13/2019 17:29 EST documented in this encounter Plan of Treatment Not on file documented as of this encounter Visit Diagnoses Not on filedocumented in this encounter
--- OUTSIDE RECORDS SUMMARY | 2025-02-24 14:54 | XMS_ITS | Encounter Summary ---
Author Organization [facility] Address [address] [place] [address] Care Team Providers Care Gas Appliance Mechanic Name Role Phone Herberth Perez MD Primary Care Provider [phone] Gracia Petersen NURSE INFORMATICS EDUCATOR Unavailable [phone] Yunior Solorzano MD Unavailable [phone] Ross Baez DO Unavailable [phone] Edith Aleman RN Unavailable Unavailable Encounter Details Date Type Department Care Team (Late st Contact Info) Description 01/24/2025 [facility] [place] [address] [place] [phone] Edith Aleman, OIL WELL FISHING TOOL TECHNICIAN None Infection associated with driveline of left [...] drink first t janine in the morning (EYE-HEALTH PROMOTER) to steady your nerves or to get rid of a hangover? 0 09/19/2021 CAGE Questionnaire Score 0 022 Utilities Answer Date Recorded In the past 12 months has e [employer], gas, oil, or water company threatened to [...] Description 04/22/2025 9:00 AM EST Ancillary Procedure [facility] [place] [address] [place] [address] documented as of this encounter Goals Goal Patient Goal Type Associated Problems Recent Progress Patient-Stated? Author LVAD Short Term Goal General On track( 11:53 AM EDT) Yes Katrin Oviedo RN Note: - 07/04/23: Patient states he wants to attend a wedding in November in [place] LVAD Care Home Goal General On track( 11:53 AM EDT) [...] documented as of this encounter Care Teams Gas Appliance Mechanic Relationship Specialty Start Date End Date Herberth Perez MD [address] [place] [address] [place] [address] PCP - General 07/17/20 Gracia Petersen APRN [address] [place] [address] Nurse Practitioner Internal Medicine 08/06/20 Yunior Solorzano MD [address] [place] [address] Consulting Physician Gastroenterology 07/18/22 Ross Baez, DO [address] [phone] Surgeon Cardiothoracic Surgery 07/18/22 Edith Aleman, OIL WELL FISHING TOOL TECHNICIAN None VAD Coordinator 10/14/24 documented as of this encounter
--- OUTSIDE RECORDS SUMMARY | 2025-02-24 14:55 | XMS_ITS | Encounter Summary ---
Author Organization [employer] ([place], [place], [place], [place], [place]) Address [address] [place] [address] Care Team Providers Care Quality Control Lead Name Role Phone Unavailable Primary Care Provider Unavailabl e Encounter Details Date Type Department Care Team (Late st Contact Info) Description 05/09/2019 Transcribed Document [facility] [place] [facility] [place] [address] ProviderMg MD [facility] [place] [address] Social History Tobacco Use Types Packs/Day Years Used Date Smoking Tobacco: Never Assessed Sex and Gender Information Value Date Recorded Sex Assigned at Not on file Legal Sex Male 1:09 PM CDT Gender Identity Not on file Sexual Orientation Not on file documented as of this encounter Miscellaneous Notes * [employer]ner Conversion Note - Mg ProviderMD - 05/09/2019 8:56 AM PATIENT TRANSITION SPECIALIST On Going Discharge Planning Entered On: 05/09/2019 8:57 EST Performed On: 05/09/2019 8:56 EST by Alyse Townsend Social Worker-Laborer Yard Care Management Progress Note Discharge Arrangements : Patient Post-Acute Information Patient Name: JOSE PEARSON Gender: Male : [birth year] Age: 48 Years No Post-Acute Placement(s) Listed No Post-Acute Service(s) Listed No [place] Referral(s) Listed Alyse Townsend Social Worker-Laborer Yard - 05/09/2019 8:56 EST Narrative Progress Note Narrative Progress Note : 05/08 Per documentation left by Paula Villeda RN CM, referral information was sent to [facility] program. Historical Progress Note : 05/06 Received order to make referral to [facility] outpatient [facility] program. Contacted [facility] appointment telephone number [phone]. They report the person who typically takes the referrals is unavailable and they will have her contact CM back. CM contact information was provided. They report the referral/recreation program coordinator is Kailey PH: [phone]. lAyse Townsend, Mold Construction Supervisor-Laborer Yard - 05/07/19 15:01:13 Per RN in Multidisciplinary rounds patient is NPO for scheduled Cardiomems today. Having some nausea after Fe Infusions requested the infusion be held until after procedure so he can eat. CM will follow. TANVIR THAYER Rn-Hand Cloth Cutter - 05/06/19 11:03:45 Alyse Townsend Mold Construction Supervisor-Laborer Yard - 05/09/2019 8:56 EST documented in this encounter Plan of Treatment Not on file documented as of this encounter Visit Diagnoses Not on filedocumented in this encounter
--- OUTSIDE RECORDS SUMMARY | 2025-02-24 14:55 | XMS_ITS | Encounter Summary ---
Author Organization [employer] ([place], [place], [place], [place]) Address [address] [place] [address] Care Team Providers Care Puddler Pile Driving Name Role Phone Unavailable Primary Care Provider Unavailabl e Encounter Details Date Type Department Care Team (Late st Contact Info) Description 05/08/2019 Transcribed Document [facility] [place] [facility] [place] [address] ProviderMg MD [facility] [place] [address] Social History Tobacco Use Types Packs/Day Years Used Date Smoking Tobacco: Never Assessed Sex and Gender Information Value Date Recorded Sex Assigned at Not on file Legal Sex Male 1:09 PM CDT Gender Identity Not on file Sexual Orientation Not on file documented as of this encounter Miscellaneous Notes * Cerner Conversion Note - Mg ProviderMD - 05/08/2019 2:43 PM CREW PERSON UM Authorization Entered On: 05/08/2019 14:43 EST Performed On: 05/08/2019 14:43 EST by MARLENE THORNTON Rn-Utilization Review Primary Insurance Authorization Authorization and Policy Numbers : Insurance 1 Health Plan: [facility] Policy Number: Authorization Number: Insurance Primary Name : [employer] [id number] Authorization Status-Primary : Awaiting callback Authorization Number-Primary : [id number] Number of Days Authorized-Primary : 4 Day(s) Authorized Service Begin Date-Primary : 05/03/2019 EST Authorized Service End Date-Primary : 05/07/2019 EST Historical Authorization Comments-Primary : Comment 1: Clinicals for CS faxed via [employer] (MARLENE THORNTON Rn-Utilization Review 05/08/2019 14:43) Comment 2: [employer] approved per Katrin for 5 days total --- nrd 3/4 (CHARLA BARRAZA RN-Utilization Review 05/06/2019 13:43) Comment 3: Uploaded continuing stay clinicals (05/06/19) to [facility] via [employer]. (ARMANDO SHANNON, RN-Utilization Review 05/06/2019 12:11) Comment 4: Per [facility], admit approved with auth #[id number] given from 05/03-05/05/19. Next review date 05/06/19. [...]
--- OUTSIDE RECORDS SUMMARY | 2025-02-24 14:55 | XMS_ITS | Encounter Summary ---
Author Organization [employer] ([place], [place], [place], [place], [place]) Address [address] [place] [address] Care Team Providers Care Sheet Layer Name Role Phone Unavailable Primary Care Provider Unavailabl e Encounter Details Date Type Department Care Team (Late st Contact Info) Description 04/11/2019 Transcribed Document [facility] [place] [facility] [place] [address] ProviderMg MD [facility] [place] [address] Social History Tobacco Use Types Packs/Day Years Used Date Smoking Tobacco: Never Assessed Sex and Gender Information Value Date Recorded Sex Assigned at Not on file Legal Sex Male 1:09 PM CDT Gender Identity Not on file Sexual Orientation Not on file documented as of this encounter Miscellaneous Notes * Cerner Conversion Note - Mg ProviderMD - 04/11/2019 6:01 PM PIZZA HUT ASSISTANT Cardiac and Pulmonary Outpatient [place] Entered On: 04/19/2019 14:17 EST Performed On: 04/19/2019 14:17 EST by EDITH CHAVIS RN Cardiac and Pulmonary Outpatient [place] Phase 2 Cardiac Rehab Criteria Met : Heart failure (HF) Cardiac Outpatient Rehab Evaluation Comment : Order faxed to [facility] due to pts location. EDITH CHAVIS RN - 04/19/2019 14:17 EST Electronically signed by Jackie [facility] Conversion Search Consultant [employer] at 06/19/2022 11:06 PM CDT documented in this encounter Plan of Treatment Not on file documented as of this encounter Visit Diagnoses Not on filedocumented in this encounter
--- OUTSIDE RECORDS SUMMARY | 2025-02-24 14:55 | XMS_ITS | Encounter Summary ---
Author Organization [employer] ([place], [place], [place], [place], [place]) Address [address] [place] [address] Care Team Providers Care Welding Foreman Name Role Phone Unavailable Primary Care Provider Unavailabl e Encounter Details Date Type Department Care Team (Late st Contact Info) Description 05/03/2019 Transcribed Document [facility] [place] Family Medicine [address] [place] [address] ProviderMg MD [facility] [place] [address] Social History Tobacco Use Types Packs/Day Years Used Date Smoking Tobacco: Never Assessed Sex and Gender Information Value Date Recorded Sex Assigned at Not on file Legal Sex Male 1:09 PM CDT Gender Identity Not on file Sexual Orientation Not on file documented as of this encounter Miscellaneous Notes * [employer]ner Conversion Note - Historical ProviderMD - 05/03/2019 8:40 AM CHEMICAL RECOVERY OPERATOR Therapy Screen, OT Entered On: 05/03/2019 8:59 [...]
--- OUTSIDE RECORDS SUMMARY | 2025-02-24 14:55 | XMS_ITS | Encounter Summary ---
Author Organization [employer] ([place], [place], [place], [place], [place]) Address [address] [place] [address] Care Team Providers Care Inspector Tester Sorter Name Role Phone Unavailable Primary Care Provider Unavailabl e Encounter Details Date Type Department Care Team (Late st Contact Info) Description 05/05/2019 Transcribed Document [facility] [place] Medicine [address] [place] [address] ProviderMg MD [address] [place], [place] [address] Social History Tobacco Use Types Packs/Day Years Used Date Smoking Tobacco: Never Assessed Sex and Gender Information Value Date Recorded Sex Assigned at Not on file Legal Sex Male 1:09 PM CDT Gender Identity Not on file Sexual Orientation Not on file documented as of this encounter Miscellaneous Notes * Cerner Conversion Note - Historical ProviderMD - 05/05/2019 2:00 AM LOCKSTITCH POCKET SETTER Quality Improvement Engineer Details Entered On: 05/05/2019 0:59 EST Performed [...]
--- OUTSIDE RECORDS SUMMARY | 2025-02-24 14:55 | XMS_ITS | Encounter Summary ---
Author Organization [employer] ([place], [place], [place], [place], [place]) Address [address] [place] [address] Care Team Providers Care Sales Representative Printing Supplies Name Role Phone Unavailable Primary Care Provider Unavailabl e Encounter Details Date Type Department Care Team (Late st Contact Info) Description 05/05/2019 Transcribed Document [facility] [place] [facility] [place] [address] ProviderMg MD [facility] [place] [id number] Social History Tobacco Use Types Packs/Day Years Used Date Smoking Tobacco: Never Assessed Sex and Gender Information Value Date Recorded Sex Assigned at Not on file Legal Sex Male 1:09 PM CDT Gender Identity Not on file Sexual Orientation Not on file documented as of this encounter Miscellaneous Notes * [employer]ner Conversion Note - Mg Ritchie MD - 05/05/2019 11:16 AM TOBACCO CONDITIONER Patient: JOSE PEARSON Age: 48 years Sex: [...] 135 mL/Hr, IV Piggyback, Daily Flonase: 1 [place], Nostrils Both, BID Melatonin: 3 mg, Oral, [...] At Bedtime fluticasone 0.05% nasal spray 1 [place], Nostrils Both, BID loratadine 10 mg tab [...] Problem list: Medical angina / SNOMED CT 874536136 / Confirmed Cardiac defibrillator in place / SNOMED CT 2318775404 / Confirmed interrogated at physicians office---02/22/13 pacemaker / SNOMED CT 1549674972 / Confirmed stroke / SNOMED CT 205890887 / Confirmed he had a stroke when they found the blood clot in valve History of obstructive sleep apnea / IMO 50339234 / Confirmed high cholesterol / SNOMED CT 80117817 / Confirmed hypertension / SNOMED CT 8965282652 / Confirmed myocardial infarction / SNOMED CT 18801977 / Confirmed sesonal allergies / SNOMED CT 0280822431 / Confirmed Resolved: At risk for sleep apnea / IMO 34328664 Resolved: 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 / SNOMED CT 242600462 treated with blood thinners, Active Problems (16) [...] Gastrointestinal: Normal bowel sounds. Integumentary: Warm, Dry, [place]. Results Review General results Telemetry SR/ST PACS [...]
--- OUTSIDE RECORDS SUMMARY | 2025-02-24 14:55 | XMS_ITS | Encounter Summary ---
Author Organization [employer] ([place], [place], [place], [place], [place]) Address [address] [place] [address] Care Team Providers Care Podiatry Doctor Name Role Phone Unavailable Primary Care Provider Unavailabl e Encounter Details Date Type Department Care Team (Late st Contact Info) Description 04/11/2019 Transcribed Document [facility] [place] [facility] [place] [address] ProviderMg MD [facility] [place] [address] Social History Tobacco Use Types Packs/Day Years Used Date Smoking Tobacco: Never Assessed Sex and Gender Information Value Date Recorded Sex Assigned at Not on file Legal Sex Male 1:09 PM CDT Gender Identity Not on file Sexual Orientation Not on file documented as of this encounter Miscellaneous Notes * Cerner Conversion Note - Mg ProviderMD - 04/11/2019 6:01 PM DEPARTMENT STORE DOOR GREETER Nutrition Assessment Entered On: 04/12/2019 10:52 EST Performed On: 04/12/2019 13:45 EST by Katrin Arias RD, BARYB Nutrition Assessment Nutrition Assessment Reason : Automatic [...]
--- OUTSIDE RECORDS SUMMARY | 2025-02-24 14:55 | XMS_ITS | Encounter Summary ---
Author Organization [employer] ([place], [place], [place], [place], [place]) Address [address] [place] [address] Care Team Providers Care Route Supervisor Name Role Phone Unavailable Primary Care Provider Unavailabl e Encounter Details Date Type Department Care Team (Late st Contact Info) Description 04/12/2019 Transcribed Document [facility] [place] [facility] [place] [address] ProviderMg MD [facility] [place] [address] Social History Tobacco Use Types Packs/Day Years Used Date Smoking Tobacco: Never Assessed Sex and Gender Information Value Date Recorded Sex Assigned at Not on file Legal Sex Male 1:09 PM CDT Gender Identity Not on file Sexual Orientation Not on file documented as of this encounter Miscellaneous Notes * [employer]ner Conversion Note - Historical ProviderMD - 04/12/2019 5:00 PM CYANIDE CASE HARDENER Chart Check - Review Order Profile Entered [...]
--- OUTSIDE RECORDS SUMMARY | 2025-02-24 14:55 | XMS_ITS | Encounter Summary ---
Author Organization [employer] ([place], [place], [place], [place], [place]) Address [address] [place] [address] Care Team Providers Care Elevator Constructor Electric Name Role Phone Unavailable Primary Care Provider Unavailabl e Encounter Details Date Type Department Care Team (Late st Contact Info) Description 04/12/2019 Transcribed Document [facility] [place] [facility] [address] ProviderMg MD [facility] [place] [id number] Social History Tobacco Use Types Packs/Day Years Used Date Smoking Tobacco: Never Assessed Sex and Gender Information Value Date Recorded Sex Assigned at Not on file Legal Sex Male 1:09 PM CDT Gender Identity Not on file Sexual Orientation Not on file documented as of this encounter Miscellaneous Notes * Cerner Conversion Note - Mg Ritchie MD - 04/12/2019 10:27 AM CLIENT SUCCESS SPECIALIST Patient: JOSE PEARSON Age: 48 years [...] Pain (Mild 1-3) Xarelto: 10 mg, Oral, [id number] Zofran: 4 mg, IV Push, Q6H, PRN: [...] mg tab 10 mg 1 Tab, Oral, [id number] spironolactone 25 mg tab 25 mg 1 [...] list: All Problems angina / SNOMED CT 124284071 / Confirmed Asthma / SNOMED CT 851586072 / Confirmed Cardiac defibrillator in place / SNOMED CT 7215428760 / Confirmed interrogated at physicians office---02/22/13 pacemaker / SNOMED CT 5554023802 / Confirmed Cardiomyopathy / SNOMED CT 759983194 / Confirmed stroke / SNOMED CT 289038745 / Confirmed he had a stroke when they found the blood clot in valve GERD - Gastro-esophageal reflux disease / SNOMED CT 7584816937 / Confirmed H/O: CVA / SNOMED CT 743071347 / Confirmed Heart failure / SNOMED CT 320230410 / Confirmed History of obstructive sleep apnea / IMO 46142030 / Confirmed high cholesterol / SNOMED CT 13492068 / Confirmed Hyperlipidemia / SNOMED CT 45315033 / Confirmed hypertension / SNOMED CT 7497571848 / Confirmed Hypotension / SNOMED CT 723694716 / Confirmed myocardial infarction / SNOMED CT 71734437 / Confirmed sesonal allergies / SNOMED CT 9495721886 / Confirmed Resolved: At risk for sleep apnea / IMO 86890263 Resolved: Moderate protein-calorie malnutrition / SNOMED CT 299021946 Acute illness or injury related malnutrition r/t hyperthyroidism as evidenced by wt loss of 14# x 2 wks (5.8%) per pt, po intake <50% >/=5 days, moderate subcutaneous fat loss to orbitals Resolved: 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 / SNOMED CT 076245605 treated with blood thinners, Active Problems (16) stroke angina Asthma Cardiac defibrillator in place Cardiomyopathy GERD - Gastro-esophageal reflux disease H/O: CVA Heart failure high cholesterol History of obstructive sleep apnea Hyperlipidemia hypertension Hypotension myocardial infarction pacemaker sesonal allergies Histories Past Medical History: Resolved 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 (238310978): Onset on 04/02/2008 at 37 years. Resolved. Comments: 04/02/2013 EST 8:28 MARIAM - FLAQUITA MARTIN RN treated with blood thinners At risk for sleep apnea (02892920): Resolved. Family History: No family history items [...] EST Height Source Stated Height Entry Format [place] Height/Length, [place] (ft) 6 ft Height/Length [place] 2 Inch CLINICALHEIGHT 187.96 cm Routine Weight Source Standing scale Routine Weight Entry Format [place] Routine Weight, Pounds 244 lb Routine Weight, Ounces 7 oz Routine Weight Calculation 111.11 kg Body Mass Index (BMI), Routine 31.45 kg/m2 Body Surface Area (BSA), Routine 2.37 m2 04/11/2019 16:28 EST Height Source Stated Height Entry Format [place] Height/Length, [place] (ft) 6 ft Height/Length [place] 2 Inch CLINICALHEIGHT 187.96 cm [place] Body Weight 81 kg Weight Source Standing scale Weight Entry Format [place] Weight [place] lb 248 lb CLINICALWEIGHT 112.73 kg Body [...] of care. Electronically signed by Jackie, [facility] Conversion Bread Wrapper Operator [employer] at 06/19/2022 10:51 PM CDT documented in this encounter Plan of Treatment Not on file documented as of this encounter Visit Diagnoses Not on filedocumented in this encounter
--- OUTSIDE RECORDS SUMMARY | 2025-02-24 14:55 | XMS_ITS | Encounter Summary ---
Author Organization [facility] Address [address] [place] [address] Care Team Providers Care Remote Advisor Name Role Phone Herberth Perez MD Primary Care Provider [phone] Katrin Oviedo RN Unavailable Zaida Lafleur MOTORBOAT MECHANIC INBOARD/OUTBOARD Unavailable [phone] Gracia Petersen MOTORBOAT MECHANIC INBOARD/OUTBOARD Unavailable Yunior Solorzano MD Unavailable [phone] Ross Baez DO Unavailable [phone] Edith Aleman RN Unavailable Unavailable Reason for Visit * Reason Comments Med Refill Encounter Details Date Type Department Care Team (Late st Contact Info) Description 11/14/2021 Refill [facility] [place] [address] [place] [address] Gracia Petersen, MOTORBOAT MECHANIC INBOARD/OUTBOARD [address] [place] [address] Social History Tobacco Use Types [...] drink first t janine in the morning (EYE-IT PROFESSIONAL) to steady your nerves or to get [...] Description 04/22/2025 9:00 AM EST Ancillary Procedure [facility] [place] [address] [facility] [place] [address] documented as of this encounter Visit Diagnoses [...] documented as of this encounter Care Teams Remote Advisor Relationship Specialty Start Date End Date Herberth Perez MD [address] [place] [address] [place] [address] PCP - General 07/17/20 Katrin Oviedo, RN [facility] [address] [place] [address] VAD Coordinator Cardiology 08/06/20 10/21/24 Zaida Lafleur APRN [address] [place] [id number] Nurse Practitioner Advanced Heart Failure and Transplant Cardiology 08/06/20 06/11/23 Gracia Petersen APRN [address] [place] [address] Nurse Practitioner Internal Medicine 08/06/20 Yunior Solorzano MD [address] [facility] [address] [place] [address] Consulting Physician Gastroenterology 07/18/22 Ross Baez, DO [address] [place] [address] Surgeon Cardiothoracic Surgery 07/18/22 Edith Aleman, MARKET RESEARCH CONSULTANT None VAD Coordinator 10/14/24 documented as of this encounter
--- OUTSIDE RECORDS SUMMARY | 2025-02-24 14:55 | XMS_ITS | Encounter Summary ---
Author Organization [employer] ([place], [place], [place], [place], [place]) Address [address] [place] [address] Care Team Providers Care School Lunch Manager Name Role Phone Unavailable Primary Care Provider Unavailabl e Encounter Details Date Type Department Care Team (Late st Contact Info) Description 04/13/2019 Transcribed Document [facility] [place] [facility] [place] [address] ProviderMg MD [facility] [place], [place] [address] Social History Tobacco Use Types Packs/Day Years Used Date Smoking Tobacco: Never Assessed Sex and Gender Information Value Date Recorded Sex Assigned at Not on file Legal Sex Male 1:09 PM CDT Gender Identity Not on file Sexual Orientation Not on file documented as of this encounter Miscellaneous Notes * Cerner Conversion Note - Historical ProviderMD - 04/13/2019 5:00 AM SURFACE LAY OUT TECHNICIAN Chart Check - Review Order Profile Entered On: 04/13/2019 5:17 EST Performed On: 04/13/2019 5:00 EST by Duncan Rudolph Rn-Iman Chart Check Powerplans Initiated/Discontinued as Appropriate : Yes All Active Orders Reviewed : Yes Duncan Rudolph Rn-Resource - 04/13/2019 5:17 EST Electronically signed by Morales Mejia Conversion Clothing And Textiles Teacher Cerner at 06/19/2022 11:01 PM CDT documented in this encounter Plan of Treatment Not on file documented as of this encounter Visit Diagnoses Not on filedocumented in this encounter
--- OUTSIDE RECORDS SUMMARY | 2025-02-24 14:55 | XMS_ITS | Encounter Summary ---
Author Organization [employer] ([place], [place], [place], [place], [place]) Address [address] [place] [address] Care Team Providers Care Manufacturing Worker Name Role Phone Unavailable Primary Care Provider Unavailabl e Encounter Details Date Type Department Care Team (Late st Contact Info) Description 05/02/2019 Transcribed Document [facility] [place] [facility] [place] [address] ProviderMg MD [facility] [place] [address] Social History Tobacco Use Types Packs/Day Years Used Date Smoking Tobacco: Never Assessed Sex and Gender Information Value Date Recorded Sex Assigned at Not on file Legal Sex Male 1:09 PM CDT Gender Identity Not on file Sexual Orientation Not on file documented as of this encounter Miscellaneous Notes * [employer]ner Conversion Note - Historical ProviderMD - 05/02/2019 5:00 PM GRAIN BLENDER Chart Check - Review Order Profile Entered [...]
--- OUTSIDE RECORDS SUMMARY | 2025-02-24 14:55 | XMS_ITS | Encounter Summary ---
Author Organization [employer] ([place], [place], [place], [place], [place]) Address [address] [place] [address] Care Team Providers Care Machine Stitcher Name Role Phone Unavailable Primary Care Provider Unavailabl e Encounter Details Date Type Department Care Team (Late st Contact Info) Description 05/04/2019 Transcribed Document [facility] [place] [address] [place] [address] ProviderMg MD [facility] [place] [address] Social History Tobacco Use Types Packs/Day Years Used Date Smoking Tobacco: Never Assessed Sex and Gender Information Value Date Recorded Sex Assigned at Not on file Legal Sex Male 1:09 PM CDT Gender Identity Not on file Sexual Orientation Not on file documented as of this encounter Miscellaneous Notes * [employer]ner Conversion Note - Historical ProviderMD - 05/04/2019 5:00 AM QUALITY AUDITOR Height and Weight, Routine Entered On: 05/04/2019 6:35 EST Performed On: 05/04/2019 5:00 EST by Carlos Ojeda RN Height and Weight, Routine Routine Weight Source : Chair scale Routine Weight Entry Format : Metric Routine Weight, Kilograms : 104.5 kg(Converted to: 230 lb 6 oz) Routine Weight Calculation : 104.5 kg Height Source : Stated Height Entry Format : [place] Height, Feet : 6 ft Height, Inches [...]
--- OUTSIDE RECORDS SUMMARY | 2025-02-24 14:55 | XMS_ITS | Encounter Summary ---
Author Organization [employer] ([place], [place], [place], [place], [place]) Address [address] [place] [address] Care Team Providers Care Pharmaceutical Sales Representative Name Role Phone Unavailable Primary Care Provider Unavailabl e Encounter Details Date Type Department Care Team (Late st Contact Info) Description 05/08/2019 Transcribed Document [facility] [place] [facility] [place] [address] ProviderMg MD [facility] [place] [address] Social History Tobacco Use Types Packs/Day Years Used Date Smoking Tobacco: Never Assessed Sex and Gender Information Value Date Recorded Sex Assigned at Not on file Legal Sex Male 1:09 PM CDT Gender Identity Not on file Sexual Orientation Not on file documented as of this encounter Miscellaneous Notes * [employer]ner Conversion Note - Mg ProviderMD - 05/08/2019 2:43 PM NEUROPHYSIOLOGICAL TECHNICIAN UM Authorization Entered On: 05/08/2019 14:43 EST Performed On: 05/08/2019 14:43 EST by MARLENE THORNTON Rn-Utilization Review Primary Insurance Authorization Authorization and Policy Numbers : Insurance 1 [facility] Policy Number: Authorization Number: Insurance Primary Name : [place] Administators [id number] Authorization Status-Primary : Admit approved Authorization Number-Primary : [id number] Number of Days Authorized-Primary : 4 Day(s) Authorized Service Begin Date-Primary : 05/03/2019 EST Authorized Service End Date-Primary : 05/07/2019 EST Authorization Comments-Primary : Clinicals for CS faxed via [employer] Historical Authorization Comments-Primary : Comment 1: [place] approved per Katrin for 5 days total --- nrd 3/4 (CHARLA BARRAZA RN-Utilization Review 05/06/2019 13:43) Comment 2: Uploaded continuing stay clinicals (05/06/19) to [facility] via [employer]. (ARMANDO SHANNON, RN-Utilization Review 05/06/2019 12:11) Comment 3: Per [facility], admit approved with auth #[id number] given from 05/03-05/05/19. Next review date 05/06/19. (ARMANDO SHANNON, RN-Utilization Review 05/06/2019 08:05) Comment 4: Uploaded clinicals to [facility] administrators via [employer]. Manually faxed [facility] form. (ARMADNO SHANNON, RN-Utilization Review 05/03/2019 13:31) MARLENE THORNTON Rn-Utilization Review - 05/08/2019 14:43 EST documented in this encounter Plan of Treatment Not on file documented as of this encounter Visit Diagnoses Not on filedocumented in this encounter
--- OUTSIDE RECORDS SUMMARY | 2025-02-24 14:55 | XMS_ITS | Encounter Summary ---
Author Organization [employer] ([place], [place], [place], [place], [place]) Address [address] [place] [address] Care Team Providers Care Wire Turning Machine Operator Name Role Phone Unavailable Primary Care Provider Unavailabl e Encounter Details Date Type Department Care Team (Late st Contact Info) Description 05/09/2019 Transcribed Document [facility] [place] [facility] [place] [address] ProviderMg MD [facility] [place] [address] Social History Tobacco Use Types Packs/Day Years Used Date Smoking Tobacco: Never Assessed Sex and Gender Information Value Date Recorded Sex Assigned at Not on file Legal Sex Male 1:09 PM CDT Gender Identity Not on file Sexual Orientation Not on file documented as of this encounter Miscellaneous Notes * [employer] Conversion Note - Historical ProviderMD - 05/09/2019 5:00 PM FUEL CELL ASSEMBLER Chart Check - Review Order Profile Entered [...]
--- OUTSIDE RECORDS SUMMARY | 2025-02-24 14:55 | XMS_ITS | Encounter Summary ---
Author Organization [employer] ([place], [place], [place], [place], [place]) Address [address] [place] [address] Care Team Providers Care Lower School Music Teacher Name Role Phone Unavailable Primary Care Provider Unavailabl e Encounter Details Date Type Department Care Team (Late st Contact Info) Description 05/08/2019 Transcribed Document [facility] [place] [facility] [place] [address] ProviderMg MD [facility] [place] [address] Social History Tobacco Use Types Packs/Day Years Used Date Smoking Tobacco: Never Assessed Sex and Gender Information Value Date Recorded Sex Assigned at Not on file Legal Sex Male 1:09 PM CDT Gender Identity Not on file Sexual Orientation Not on file documented as of this encounter Miscellaneous Notes * [employer] Conversion Note - Historical ProviderMD - 05/08/2019 5:00 PM TRANSPORTATION TECHNICIAN Chart Check - Review Order Profile Entered On: 05/08/2019 20:13 EST Performed On: 05/08/2019 17:00 EST by EVE NGUYEN RN Chart Check Powerplans Initiated/Discontinued as Appropriate : Yes All Active Orders Reviewed : Yes EVE NGUYEN RN - 05/08/2019 20:13 EST Electronically signed by Morales Mejia Conversion Sales Representative Health Insurance Cerner at 06/19/2022 11:11 PM CDT documented in this encounter Plan of Treatment Not on file documented as of this encounter Visit Diagnoses Not on filedocumented in this encounter
--- OUTSIDE RECORDS SUMMARY | 2025-02-24 14:55 | XMS_ITS | Encounter Summary ---
Author Organization [employer] ([place], [place], [place], [place], [place]) Address [address] [place] [address] Care Team Providers Care Turner And Former Automatic Name Role Phone Unavailable Primary Care Provider Unavailabl e Encounter Details Date Type Department Care Team (Late st Contact Info) Description 05/08/2019 Transcribed Document [facility] [place] [facility] [place] [address] ProviderMg MD [facility] [place] [address] Social History Tobacco Use Types Packs/Day Years Used Date Smoking Tobacco: Never Assessed Sex and Gender Information Value Date Recorded Sex Assigned at Not on file Legal Sex Male 1:09 PM CDT Gender Identity Not on file Sexual Orientation Not on file documented as of this encounter Miscellaneous Notes * [employer] Conversion Note - Mg ProviderMD - 05/08/2019 3:22 PM RETAIL PERFORMANCE SPECIALIST UM Authorization Entered On: 05/08/2019 15:23 EST Performed On: 05/08/2019 15:22 EST by CHARLA BARRAZA RN-Utilization Review Primary Insurance Authorization Authorization and Policy Numbers : Insurance 1 [facility] Policy Number: Authorization Number: Insurance Primary Name : [employer] Administators [id number] Authorization Status-Primary : Admit approved Authorization Number-Primary : [id number] Number of Days Authorized-Primary : 6 Day(s) Authorized Service Begin Date-Primary : 05/03/2019 EST Authorized Service End Date-Primary : 05/09/2019 EST Authorization Comments-Primary : [facility] approved per Katrin for total of 7 days --- nrd 05/09 Historical Authorization Comments-Primary : Comment 1: Clinicals for CS faxed via [employer] (MARLENE THORNTON Rn-Utilization Review 05/08/2019 14:43) Comment 2: [place] approved per Katrin for 5 days total --- nrd 05/07 (CHARLA BARRAZA, MARYCARMEN-Utilization Review 05/06/2019 13:43) Comment 3: Uploaded continuing stay clinicals (05/06/19) to [facility] via [employer]. (ARMANDO SHANNON, RN-Utilization Review 05/06/2019 12:11) Comment 4: Per [facility], admit approved with auth #[id number] given from 05/03-05/05/19. Next review date 05/06/19. [...]
--- OUTSIDE RECORDS SUMMARY | 2025-02-24 14:55 | XMS_ITS | Encounter Summary ---
Author Organization [employer] ([place], [place], [place], [place], [place]) Address [address] [place] [address] Care Team Providers Care Flag Maker Name Role Phone Unavailable Primary Care Provider Unavailabl e Encounter Details Date Type Department Care Team (Late st Contact Info) Description 04/13/2019 Transcribed Document [facility] [place] [facility] [place] [address] ProviderMg [place] [facility] [address] Social History Tobacco Use Types Packs/Day Years Used Date Smoking Tobacco: Never Assessed Sex and Gender Information Value Date Recorded Sex Assigned at Not on file Legal Sex Male 1:09 PM CDT Gender Identity Not on file Sexual Orientation Not on file documented as of this encounter Miscellaneous Notes * [employer] Conversion Note - Historical ProviderMD - 04/13/2019 5:00 AM SUPERVISOR BOARDING Height and Weight, Routine Entered On: 04/13/2019 5:17 EST Performed On: 04/13/2019 5:00 EST by Duncan Rudolph Rn-Resource Height and Weight, Routine Routine Weight Source : Bed scale Routine Weight Entry Format : Metric Routine Weight, Kilograms : 112.4 kg(Converted to: 247 lb 13 oz) Routine Weight Calculation : 112.4 kg Height Source : Stated Height Entry Format : [place] Height, Feet : 6 ft Height, Inches : 2 Inch Clinical Height : 187.96 cm Body Surface Area (BSA), Routine : 2.38 m2 Body Mass Index (BMI), Routine : 31.82 kg/m2 Duncan Rudolph Rn-Resource - 04/13/2019 5:15 EST documented in this encounter Plan of Treatment Not on file documented as of this encounter Visit Diagnoses Not on filedocumented in this encounter
--- OUTSIDE RECORDS SUMMARY | 2025-02-24 14:55 | XMS_ITS | Encounter Summary ---
Author Organization [employer] ([place], [place], [place], [place], [place]) Address [address] [place] [address] Care Team Providers Care Form Setter Name Role Phone Unavailable Primary Care Provider Unavailabl e Encounter Details Date Type Department Care Team (Late st Contact Info) Description 04/12/2019 Transcribed Document [facility] [place] [facility] [place] [address] ProviderMg MD [facility] [place] [address] Social History Tobacco Use Types Packs/Day Years Used Date Smoking Tobacco: Never Assessed Sex and Gender Information Value Date Recorded Sex Assigned at Not on file Legal Sex Male 1:09 PM CDT Gender Identity Not on file Sexual Orientation Not on file documented as of this encounter Miscellaneous Notes * Cerner Conversion Note - Historical ProviderMD - 04/12/2019 11:57 AM FLOOR COVERING PRINTER Therapy Screen, PT Entered On: 04/12/2019 11:59 EST Performed On: 04/12/2019 11:57 EST by PAUL GARCES PT Therapy Screen, PT Medical Chart Reviewed : Yes Person Providing Information : Nurse, Patient Screen Completed : Yes Recommendation for Evaluation, PT : None Recommendations Upon Discharge : None PAUL GARCES PT - 04/12/2019 11:57 EST Electronically signed by Jackie [facility] Conversion Manager Company [employer]ner at 06/19/2022 11:04 PM CDT documented in this encounter Plan of Treatment Not on file documented as of this encounter Visit Diagnoses Not on filedocumented in this encounter
--- OUTSIDE RECORDS SUMMARY | 2025-02-24 14:55 | XMS_ITS | Encounter Summary ---
Author Organization [employer] ([place], [place], [place], [place], [place]) Address [address] [place] [address] Care Team Providers Care Greensman Name Role Phone Unavailable Primary Care Provider Unavailabl e Encounter Details Date Type Department Care Team (Late st Contact Info) Description 04/13/2019 Transcribed Document [facility] [place] [facility] [place] [address] ProviderMg MD [address] [place] [place], [place] [id number] Social History Tobacco Use Types Packs/Day Years Used Date Smoking Tobacco: Never Assessed Sex and Gender Information Value Date Recorded Sex Assigned at Not on file Legal Sex Male 1:09 PM CDT Gender Identity Not on file Sexual Orientation Not on file documented as of this encounter Miscellaneous Notes * Cerner Conversion Note - Mg Ritchie MD - 04/13/2019 12:35 PM ANIMAL RIDE MANAGER Patient Education Materials Follows:Medicine and Rehabilitation Cardiac [...] 11/29/2008 Document Revised: 09/12/2017 Document Reviewed: 01/04/2016 [employer] Interactive Patient Education ? 2019 [employer] Preventive Health Heart Disease Prevention Heart [...] out more about heart disease, visit the [place] [employer]'s website at www.americanheart.org This information is not intended to replace advice given to you by your health care provider. Make sure you discuss any questions you have with your health care provider. Document Released: 10/04/2004 Document Revised: 07/20/2016 Document Reviewed: 04/16/2014 [employer] Interactive Patient Education ? 2019 [employer] documented in this encounter Plan of Treatment Not on file documented as of this encounter Visit Diagnoses Not on filedocumented in this encounter
--- OUTSIDE RECORDS SUMMARY | 2025-02-24 14:55 | XMS_ITS | Encounter Summary ---
Author Organization [employer] ([place], [place], [place], [place], [place]) Address [address] [place] [address] Care Team Providers Care Manufacturing Job Titles Name Role Phone Unavailable Primary Care Provider Unavailabl e Encounter Details Date Type Department Care Team (Late st Contact Info) Description 05/04/2019 Transcribed Document [facility] [place] Medicine Count includes the [facility] [place] [address] ProviderMg MD Count includes the [facility] [place], [place] [id number] Social History Tobacco Use Types Packs/Day Years Used Date Smoking Tobacco: Never Assessed Sex and Gender Information Value Date Recorded Sex Assigned at Not on file Legal Sex Male 1:09 PM CDT Gender Identity Not on file Sexual Orientation Not on file documented as of this encounter Miscellaneous Notes * Cerner Conversion Note - Mg Ritchie MD - 05/04/2019 11:36 AM BOILER RIVETER Patient: JOSE PEARSON Age: 48 years Sex: [...] 20 mg, Oral, At Bedtime Flonase: 1 [place], Nostrils Both, BID Melatonin: 3 mg, Oral, [...] At Bedtime fluticasone 0.05% nasal spray 1 [place], Nostrils Both, BID loratadine 10 mg tab [...] Problem list: Medical angina / SNOMED CT 093020642 / Confirmed Cardiac defibrillator in place / SNOMED CT 2280977554 / Confirmed interrogated at physicians office---02/22/13 pacemaker / SNOMED CT 1633804261 / Confirmed stroke / SNOMED CT 154092329 / Confirmed he had a stroke when they found the blood clot in valve History of obstructive sleep apnea / IMO 47413541 / Confirmed high cholesterol / SNOMED CT 04624764 / Confirmed hypertension / SNOMED CT 6447566091 / Confirmed myocardial infarction / SNOMED CT 93429920 / Confirmed sesonal allergies / SNOMED CT 1925235835 / Confirmed, Active Problems (16) stroke angina [...] Gastrointestinal: Normal bowel sounds. Integumentary: Warm, Dry, [place]. Results Review General results Telemetry SR/ST PACS [...] hypomag -Corrected Electronically signed by Jackie [facility] Conversion Educational Psychology Professor Cerner at 06/19/2022 11:12 PM CDT documented in this encounter Plan of Treatment Not on file documented as of this encounter Visit Diagnoses Not on filedocumented in this encounter
--- OUTSIDE RECORDS SUMMARY | 2025-02-24 14:55 | XMS_ITS | Encounter Summary ---
Author Organization [employer] ([place], [place], [place], [place], [place]) Address [address] [place] [address] Care Team Providers Care Cardiac Technician Name Role Phone Unavailable Primary Care Provider Unavailabl e Encounter Details Date Type Department Care Team (Late st Contact Info) Description 04/12/2019 Transcribed Document [facility] [place] [address] [place] [address] ProviderMg MD [facility] [place] [address] Social History Tobacco Use Types Packs/Day Years Used Date Smoking Tobacco: Never Assessed Sex and Gender Information Value Date Recorded Sex Assigned at Not on file Legal Sex Male 1:09 PM CDT Gender Identity Not on file Sexual Orientation Not on file documented as of this encounter Miscellaneous Notes * Cerner Conversion Note - Historical ProviderMD - 04/12/2019 10:12 PM PIER HAND Sepsis Screening Tool Entered On: 04/12/2019 22:51 [...]
--- OUTSIDE RECORDS SUMMARY | 2025-02-24 14:55 | XMS_ITS | Encounter Summary ---
Author Organization [employer] ([place], [place], [place], [place], [place]) Address [address] [place] [address] Care Team Providers Care Glue Spreader Name Role Phone Unavailable Primary Care Provider Unavailabl e Encounter Details Date Type Department Care Team (Late st Contact Info) Description 04/12/2019 Transcribed Document [facility] [place] [facility] [place] [address] ProviderMg MD [facility] [place] [address] Social History Tobacco Use Types Packs/Day Years Used Date Smoking Tobacco: Never Assessed Sex and Gender Information Value Date Recorded Sex Assigned at Not on file Legal Sex Male 1:09 PM CDT Gender Identity Not on file Sexual Orientation Not on file documented as of this encounter Miscellaneous Notes * Cerner Conversion Note - Historical ProviderMD - 04/12/2019 11:[address] [facility] PT Charges Entered On: 04/12/2019 11:59 EST Performed On: 04/12/2019 11:57 EST by PAUL GARCES PT [facility] PT Charges Physical Therapy Screen : 1 PAUL GARCES PT - 04/12/2019 11:57 EST Electronically signed by Morales Mejia Conversion Digital Media Sales Consultant [employer] at 06/19/2022 11:12 PM CDT documented in this encounter Plan of Treatment Not on file documented as of this encounter Visit Diagnoses Not on filedocumented in this encounter
--- OUTSIDE RECORDS SUMMARY | 2025-02-24 14:55 | XMS_ITS | Encounter Summary ---
Author Organization [employer] ([place], [place], [place], [place], [place]) Address [address] [place] [address] Care Team Providers Care University Partnership Rep Name Role Phone Unavailable Primary Care Provider Unavailabl e Encounter Details Date Type Department Care Team (Late st Contact Info) Description 05/09/2019 Transcribed Document [facility] [place] [facility] [place] [address] ProviderMg MD [facility] [place] [id number] Social History Tobacco Use Types Packs/Day Years Used Date Smoking Tobacco: Never Assessed Sex and Gender Information Value Date Recorded Sex Assigned at Not on file Legal Sex Male 1:09 PM CDT Gender Identity Not on file Sexual Orientation Not on file documented as of this encounter Miscellaneous Notes * Cerner Conversion Note - Mg Ritchie MD - 05/09/2019 10:06 AM LABORATORY ANALYST Patient: JOSE PEARSON Age: 48 years Sex: [...] Non-distended, Normal bowel sounds. Integumentary: Warm, Dry, [place], No rash. Results Review General results Today's [...] tikosyn therapy and dose mgt I Dr. Brudick has personally seen and examined this patient and devised the above plan of care. Electronically signed by Morales Mejia Conversion Rural Electrification Engineer Cerner at 06/19/2022 11:08 PM CDT documented in this encounter Plan of Treatment Not on file documented as of this encounter Visit Diagnoses Not on filedocumented in this encounter
--- OUTSIDE RECORDS SUMMARY | 2025-02-24 14:55 | XMS_ITS | Encounter Summary ---
Author Organization [employer] ([place], [place], [place], [place], [place]) Address [address] [place] [address] Care Team Providers Care Pasteurizing Supervisor Name Role Phone Unavailable Primary Care Provider Unavailabl e Encounter Details Date Type Department Care Team (Late st Contact Info) Description 05/04/2019 Transcribed Document [facility] [place] Family Medicine [address] [place] [address] ProviderMg MD [address] [place], [place] [address] Social History Tobacco Use Types Packs/Day Years Used Date Smoking Tobacco: Never Assessed Sex and Gender Information Value Date Recorded Sex Assigned at Not on file Legal Sex Male 1:09 PM CDT Gender Identity Not on file Sexual Orientation Not on file documented as of this encounter Miscellaneous Notes * [employer]ner Conversion Note - Historical ProviderMD - 05/04/2019 2:00 AM GLASS CLEANING MACHINE TENDER Finisher Brush Details Entered On: 05/04/2019 4:57 EST Performed [...]
--- OUTSIDE RECORDS SUMMARY | 2025-02-24 14:55 | XMS_ITS | Encounter Summary ---
Author Organization [employer] ([place], [place], [place], [place], [place]) Address [address] [place] [address] Care Team Providers Care Beef Selector Name Role Phone Unavailable Primary Care Provider Unavailabl e Encounter Details Date Type Department Care Team (Late st Contact Info) Description 05/07/2019 Transcribed Document [facility] [place] [address] [place] [address] ProviderMg MD [facility] [place] [address] Social History Tobacco Use Types Packs/Day Years Used Date Smoking Tobacco: Never Assessed Sex and Gender Information Value Date Recorded Sex Assigned at Not on file Legal Sex Male 1:09 PM CDT Gender Identity Not on file Sexual Orientation Not on file documented as of this encounter Miscellaneous Notes * [employer]ner Conversion Note - Historical ProviderMD - 05/07/2019 2:00 AM METAL WASHING MACHINE OPERATOR Geologic Technician Details Entered On: 05/07/2019 8:34 EST Performed [...] EST Electronically signed by Morales Mejia Conversion Global Head Advertiser Solutions [employer] at 06/19/2022 11:05 PM CDT documented in this encounter Plan of Treatment Not on file documented as of this encounter Visit Diagnoses Not on filedocumented in this encounter
--- OUTSIDE RECORDS SUMMARY | 2025-02-24 14:55 | XMS_ITS | Encounter Summary ---
Author Organization [employer] ([place], [place], [place], [place], [place]) Address [address] [place] [address] Care Team Providers Care Structural Welder Name Role Phone Unavailable Primary Care Provider Unavailabl e Encounter Details Date Type Department Care Team (Late st Contact Info) Description 04/17/2019 Transcribed Document [facility] [place] [facility] [place] [address] ProviderMg MD [facility] [place] [id number] Social History Tobacco Use Types Packs/Day Years Used Date Smoking Tobacco: Never Assessed Sex and Gender Information Value Date Recorded Sex Assigned at Not on file Legal Sex Male 1:09 PM CDT Gender Identity Not on file Sexual Orientation Not on file documented as of this encounter Miscellaneous Notes * [employer]ner Conversion Note - Mg Ritchie MD - 04/17/2019 9:55 AM BICYCLE RENTAL CLERK UM Authorization Entered On: 04/17/2019 9:56 EST Performed On: 04/17/2019 9:55 EST by CHARLA BARRAZA RN-Utilization Review Primary Insurance Authorization Authorization and Policy Numbers : Insurance 1 Health Plan: ANTHEM HMOPPO Policy Number: [id number] Authorization Number: Insurance 2 Health Plan: MEDICARE Policy Number: [id number] Authorization Number: Insurance Primary Name : Ruben [id number] Authorization Status-Primary : Admit approved Authorization Number-Primary : [id number] Number of Days Authorized-Primary : 1 Day(s) Authorized Service Begin Date-Primary : 04/11/2019 EST Authorized Service End Date-Primary : 04/12/2019 EST Authorization Comments-Primary : [place] approved per Liliana from [employer] approved inpt Historical Authorization Comments-Primary : Comment 1: Clinicals and [employer] Administrators form faxed to [facility]. (MARLENE THORNTON Rn-Utilization Review 04/12/2019 14:39) CHARLA BARRAZA RN-Utilization Review - 04/17/2019 9:55 EST Electronically signed by Jackie, [facility] Conversion Hand Spring Former Cerner at 06/19/2022 11:11 PM CDT documented in this encounter Plan of Treatment Not on file documented as of this encounter Visit Diagnoses Not on filedocumented in this encounter
--- OUTSIDE RECORDS SUMMARY | 2025-02-24 14:55 | XMS_ITS | Encounter Summary ---
Author Organization [employer] ([place], [place], [place], [place], [place]) Address [address] [place] [address] Care Team Providers Care Assembler Sandal Parts Name Role Phone Unavailable Primary Care Provider Unavailabl e Encounter Details Date Type Department Care Team (Late st Contact Info) Description 05/02/[address] [facility] [place] Family Medicine Counts include 234 beds at the [facility] [place] [address] ProviderMg MD Counts include [address] beds at the [facility] [place] [address] Social History Tobacco Use Types Packs/Day Years Used Date Smoking Tobacco: Never Assessed Sex and Gender Information Value Date Recorded Sex Assigned at Not on file Legal Sex Male 1:09 PM CDT Gender Identity Not on file Sexual Orientation Not on file documented as of this encounter Miscellaneous Notes * [employer]ner Conversion Note - Mg ProviderMD - 05/02/2019 3:13 PM PAINTER HELPER Admission History, Adult Entered On: 05/02/2019 18:52 [...] RN - 05/02/2019 19:03 EST Support Person/Patient Shopping Centre Manager : Yes Support Person/Pt Rep Name : Neel Pearson-- Contact Password : neel Support Person/Pt Rep Contact Information : [phone] Want Family/Rep/Phys Notified of Admit : No Primary Language : Bhutanese Preferred Communication Mode [...] Scale Risk Level : 0-24 Low Risk [place] Fall Interventions : Adequate lighting, Bed in [...] Body Mass Index : 31.3 kg/m2 (HI) [place] Body Weight : 77 kg Chelo Cardenas RN - 05/02/2019 19:03 EST Height Source : Stated Height Entry Format : [place] Weight Source : Bed scale Weight Entry Format : [place] Clinical Dosing Weight : 104.55 kg Weight, [...] Chelo Cardenas RN - 05/02/2019 18:47 EST [place] Suicide Severity Rating Scale (C-SSRS) CSSRS Past [...] - 05/02/2019 18:47 EST Electronically signed by [facility] Conversion Quality Supervisor [employer]ner at 06/19/2022 10:52 PM CDT documented in this encounter Plan of Treatment Not on file documented as of this encounter Visit Diagnoses Not on filedocumented in this encounter
--- OUTSIDE RECORDS SUMMARY | 2025-02-24 14:55 | XMS_ITS | Encounter Summary ---
Author Organization [employer] ([place], [place], [place], [place], [place]) Address [address] [place] [address] Care Team Providers Care Silk Washing Machine Operator Name Role Phone Unavailable Primary Care Provider Unavailabl e Encounter Details Date Type Department Care Team (Late st Contact Info) Description 04/12/2019 Transcribed Document [facility] [place] Medicine [address] [place] [address] ProviderMg MD [facility] [place] [address] Social History Tobacco Use Types Packs/Day Years Used Date Smoking Tobacco: Never Assessed Sex and Gender Information Value Date Recorded Sex Assigned at Not on file Legal Sex Male 1:09 PM CDT Gender Identity Not on file Sexual Orientation Not on file documented as of this encounter Miscellaneous Notes * [employer]ner Conversion Note - Historical ProviderMD - 04/12/2019 9:28 AM WASHER OPERATOR Therapy Screen, OT Entered On: 04/12/2019 11:09 [...]
--- OUTSIDE RECORDS SUMMARY | 2025-02-24 14:55 | XMS_ITS | Encounter Summary ---
Author Organization [employer] ([place], [place], [place], [place], [place]) Address [address] [place] [address] Care Team Providers Care Firer Glost Kiln Name Role Phone Unavailable Primary Care Provider Unavailabl e Encounter Details Date Type Department Care Team (Late st Contact Info) Description 05/02/2019 Transcribed Document [facility] [place] [address] [place] [address] ProviderMg MD [facility] [place], [place] [address] Social History Tobacco Use Types Packs/Day Years Used Date Smoking Tobacco: Never Assessed Sex and Gender Information Value Date Recorded Sex Assigned at Not on file Legal Sex Male 1:09 PM CDT Gender Identity Not on file Sexual Orientation Not on file documented as of this encounter Miscellaneous Notes * [employer]ner Conversion Note - Mg ProviderMD - 05/02/2019 4:10 PM RESIN PAINTER Pain Assessment Entered On: 2019 15:50 EST [...]
--- OUTSIDE RECORDS SUMMARY | 2025-02-24 14:55 | XMS_ITS | Encounter Summary ---
Author Organization [employer] ([place], [place], [place], [place], [place]) Address [address] [place] [address] Care Team Providers Care Police Surgeon Name Role Phone Unavailable Primary Care Provider Unavailabl e Encounter Details Date Type Department Care Team (Late st Contact Info) Description 05/07/2019 Transcribed Document [facility] [place] [facility] [place] [address] Provider[place] [address] Social History Tobacco Use Types Packs/Day Years Used Date Smoking Tobacco: Never Assessed Sex and Gender Information Value Date Recorded Sex Assigned at Not on file Legal Sex Male 1:09 PM CDT Gender Identity Not on file Sexual Orientation Not on file documented as of this encounter Miscellaneous Notes * [employer]ner Conversion Note - Mg ProviderMD - 05/07/2019 11:30 AM PERSONNEL GENERALIST MANAGER Rapid Response Team Documentation Entered On: 05/07/2019 [...] @ this time w no needs from ASSISTANT STORE MANAGER TRAINEE. Instructed Gracia to call ASSISTANT STORE MANAGER TRAINEE if further needs arise. Patient Condition at End of Event : No S/S of Acute Distress Patient Disposition Post Event : No change in location/level of care Rapid Response Police Surgeon #1 : RAJAT NAZARIO, RAJAT RIGGS RN - 05/07/2019 13:07 EST Electronically signed by Jackie [facility] Conversion Regional Manager Cerner at 06/19/2022 11:05 PM CDT documented in this encounter Plan of Treatment Not on file documented as of this encounter Visit Diagnoses Not on filedocumented in this encounter
--- OUTSIDE RECORDS SUMMARY | 2025-02-24 14:55 | XMS_ITS | Encounter Summary ---
Author Organization [email or web address] ([place], [place], [place], [place], [place]) Address [address] [place] [address] Care Team Providers Care Sed Special Education Teacher Name Role Phone Unavailable Primary Care Provider Unavailabl e Encounter Details Date Type Department Care Team (Late st Contact Info) Description 05/08/2019 Transcribed Document [facility] [place] [facility]placed [facility] [place] [address] ProviderMg MD Replaced by [facility] [place] [address] Social History Tobacco Use Types Packs/Day Years Used Date Smoking Tobacco: Never Assessed Sex and Gender Information Value Date Recorded Sex Assigned at Not on file Legal Sex Male 1:09 PM CDT Gender Identity Not on file Sexual Orientation Not on file documented as of this encounter Miscellaneous Notes * [employer]ner Conversion Note - Historical ProviderMD - 05/08/2019 5:00 AM LEAD MANUFACTURING TECHNICIAN Height and Weight, Routine Entered On: 05/08/2019 6:49 EST Performed On: 05/08/2019 5:00 EST by Reyna Nicolas RN Height and Weight, Routine Routine Weight Source : Standing scale Routine Weight Entry Format : [place] Routine Weight, Pounds : 236 lb Routine Weight, Ounces : 7 oz Routine Weight Calculation : 107.47 kg Height Source : Stated Height Entry Format : [place] Height, Feet : 6 ft Height, Inches : 0 Inch Clinical Height : 182.88 cm Body Surface Area (BSA), Routine : 2.29 m2 Body Mass Index (BMI), Routine : 32.13 kg/m2 Reyna Nicolas RN - 05/08/2019 6:47 EST Electronically signed by Jackie [facility] Conversion Rn Licensed Practical Cerner at 06/19/2022 11:14 PM CDT documented in this encounter Plan of Treatment Not on file documented as of this encounter Visit Diagnoses Not on filedocumented in this encounter
--- OUTSIDE RECORDS SUMMARY | 2025-02-24 14:55 | XMS_ITS | Encounter Summary ---
Author Organization [employer] ([place], [place], [place], [place], [place]) Address [address] [place] [address] Care Team Providers Care Shader And Toner Name Role Phone Unavailable Primary Care Provider Unavailabl e Encounter Details Date Type Department Care Team (Late st Contact Info) Description 2019 Transcribed Document [facility] [place] Medicine [facility] [place] [address] ProviderMg MD [facility] [place] [address] Social History Tobacco Use Types Packs/Day Years Used Date Smoking Tobacco: Never Assessed Sex and Gender Information Value Date Recorded Sex Assigned at Not on file Legal Sex Male 1:09 PM CDT Gender Identity Not on file Sexual Orientation Not on file documented as of this encounter Miscellaneous Notes * [employer]ner Conversion Note - Mg Ritchie MD - 2019 5:45 PM VALVE FITTER Patient: JOSE PEARSON Age: 48 years Sex: [...] will arrange for heart transplant team at [facility]. I had a long discussion with him and his regarding above plan and they feel comfortable going home today.. Electronically signed by Morales Mejia Conversion Recreational Vehicle Resort Manager Jessica at 06/19/2022 10:48 PM CDT documented in this encounter Plan of Treatment Not on file documented as of this encounter Visit Diagnoses Not on filedocumented in this encounter
--- OUTSIDE RECORDS SUMMARY | 2025-02-24 14:55 | XMS_ITS | Encounter Summary ---
Author Organization [employer] ([place], [place], [place], [place], [place]) Address [address] [place] [address] Care Team Providers Care Armament Installer Name Role Phone Unavailable Primary Care Provider Unavailabl e Encounter Details Date Type Department Care Team (Late st Contact Info) Description 05/08/2019 Transcribed Document [facility] [place] Family Medicine [address] [place] [address] ProviderMg MD [facility] [place], [place] [id number] Social History Tobacco Use Types Packs/Day Years Used Date Smoking Tobacco: Never Assessed Sex and Gender Information Value Date Recorded Sex Assigned at Not on file Legal Sex Male 1:09 PM CDT Gender Identity Not on file Sexual Orientation Not on file documented as of this encounter Miscellaneous Notes * Cerner Conversion Note - Historical ProviderMD - 05/08/2019 2:00 AM BOTTLE CASER Trimmer And Borer Machine Operator Details Entered On: 05/08/2019 4:59 EST Performed On: 05/08/2019 2:00 EST by Reyan Nicolas, RN Order Details Transport Mode Order [...]
--- OUTSIDE RECORDS SUMMARY | 2025-02-24 14:55 | XMS_ITS | Encounter Summary ---
Author Organization [employer] ([place], [place], [place], [place], [place]) Address [address] [place] [address] Care Team Providers Care Research Agricultural Engineer Name Role Phone Unavailable Primary Care Provider Unavailabl e Encounter Details Date Type Department Care Team (Late st Contact Info) Description 04/13/2019 Transcribed Document [facility] [place] [address] [place] [address] ProviderMg MD [facility] [place], [place] [address] Social History Tobacco Use Types Packs/Day Years Used Date Smoking Tobacco: Never Assessed Sex and Gender Information Value Date Recorded Sex Assigned at Not on file Legal Sex Male 1:09 PM CDT Gender Identity Not on file Sexual Orientation Not on file documented as of this encounter Miscellaneous Notes * Cerner Conversion Note - Historical ProviderMD - 04/13/2019 2:00 AM HELIARC WELDER Skilled Labor Details Entered On: 04/13/2019 5:10 EST Performed [...]
--- OUTSIDE RECORDS SUMMARY | 2025-02-24 14:55 | XMS_ITS | Encounter Summary ---
Author Organization [employer] ([place], [place], [place], [place], [place]) Address [address] [place] [address] Care Team Providers Care Tallow Maker Name Role Phone Unavailable Primary Care Provider Unavailabl e Encounter Details Date Type Department Care Team (Late st Contact Info) Description 04/13/2019 Transcribed Document [facility] [place] Family Medicine [facility] [place] [address] ProviderMg MD [facility] [place] [address] Social History Tobacco Use Types Packs/Day Years Used Date Smoking Tobacco: Never Assessed Sex and Gender Information Value Date Recorded Sex Assigned at Not on file Legal Sex Male 1:09 PM CDT Gender Identity Not on file Sexual Orientation Not on file documented as of this encounter Miscellaneous Notes * Cerner Conversion Note - Mg ProviderMD - 04/13/2019 12:39 PM ARTIST CONSULTANT Stroke/Warfarin Instructions Entered On: 04/13/2019 12:39 EST [...] 04/13/2019 12:39 EST Electronically signed by Jackie, [facility] Conversion Geological Science Teacher Cerner at 06/19/2022 10:49 PM CDT documented in this encounter Plan of Treatment Not on file documented as of this encounter Visit Diagnoses Not on filedocumented in this encounter
--- OUTSIDE RECORDS SUMMARY | 2025-02-24 14:55 | XMS_ITS | Encounter Summary ---
Author Organization [employer] ([place], [place], [place], [place], [place]) Address [address] [place] [address] Care Team Providers Care Tie Up Worker Name Role Phone Unavailable Primary Care Provider Unavailabl e Encounter Details Date Type Department Care Team (Late st Contact Info) Description 05/07/2019 Transcribed Document [facility] [place] Family Medicine [address] [place] [address] ProviderMg MD [facility] [place] [address] Social History Tobacco Use Types Packs/Day Years Used Date Smoking Tobacco: Never Assessed Sex and Gender Information Value Date Recorded Sex Assigned at Not on file Legal Sex Male 1:09 PM CDT Gender Identity Not on file Sexual Orientation Not on file documented as of this encounter Miscellaneous Notes * Cerner Conversion Note - Historical ProviderMD - 05/07/2019 1:45 PM GLOBAL ENGINEERING MANAGER Spiritual Care Short Form Entered On: 05/07/2019 17:02 EST Performed On: 05/07/2019 13:45 EST by BETITO PRASAD Chaplain-Non Cert General Information, Spiritual Care Spiritual Care Referred by : Furnace Tapper initiated Reason for Visit : Initial Ministry Provided to : Patient, Family/Significant other Intervention/Comment/Summary Points : Routine visit conducted by Spiritual Transferrer BETITO Red Chaplain-Non Cert - 05/07/2019 17:01 EST documented in this encounter Plan of Treatment Not on file documented as of this encounter Visit Diagnoses Not on filedocumented in this encounter
--- OUTSIDE RECORDS SUMMARY | 2025-02-24 14:55 | XMS_ITS | Encounter Summary ---
Author Organization [employer] ([place], [place], [place], [place], [place]) Address [address] [place] [address] Care Team Providers Care Card Room Manager Name Role Phone Unavailable Primary Care Provider Unavailabl e Encounter Details Date Type Department Care Team (Late st Contact Info) Description 05/09/2019 Transcribed Document [facility] [place] [facility] [place] [address] ProviderMg MD [facility] [place] [address] Social History Tobacco Use Types Packs/Day Years Used Date Smoking Tobacco: Never Assessed Sex and Gender Information Value Date Recorded Sex Assigned at Not on file Legal Sex Male 1:09 PM CDT Gender Identity Not on file Sexual Orientation Not on file documented as of this encounter Miscellaneous Notes * Cerner Conversion Note - Historical ProviderMD - 05/09/2019 2:00 AM POLICE AIDE Fondant Cooker Details Entered On: 05/09/2019 1:41 EST Performed [...]
--- OUTSIDE RECORDS SUMMARY | 2025-02-24 14:55 | XMS_ITS | Encounter Summary ---
Author Organization [employer] ([place], [place], [place], [place], [place]) Address [address] [place] [address] Care Team Providers Care Art Museum Docent Name Role Phone Unavailable Primary Care Provider Unavailabl e Encounter Details Date Type Department Care Team (Late st Contact Info) Description 05/08/2019 Transcribed Document [facility] [place] [address] ProviderMg [place] [address] Social History Tobacco Use Types Packs/Day Years Used Date Smoking Tobacco: Never Assessed Sex and Gender Information Value Date Recorded Sex Assigned at Not on file Legal Sex Male 1:09 PM CDT Gender Identity Not on file Sexual Orientation Not on file documented as of this encounter Miscellaneous Notes * Cerner Conversion Note - Mg Ritchie MD - 05/08/2019 5:52 PM CHURN TENDER DATE OF SERVICE: 05/08/2019 PROCEDURE: Right heart catheterization and insertion of CardioMEMS device, left posterior pulmonary artery INDICATIONS FOR PROCEDURE: Recurrent acute left systolic heart failure, [place] [employer] Association functional class 4 with multiple [...] Using a single wall puncture technique, an 8-Cymraes side-port sheath was introduced into the right common femoral vein. Sheath aspirated and flushed with heparinized saline solution. An 8-Cymraes [place] thermodilution catheter was advanced under fluoroscopy and [...] method. The system was then removed. The 8-Cymraes side-port sheath in the right common femoral vein was exchanged over a 0.035 inch wire to a 12-Cymraes sideport sheath. The sheath was aspirated and flushed with heparinized saline solution. The [place] thermodilution catheter was then advanced again over [...] posterior pulmonary vein. Pressures were equalized and [place] thermodilution catheter readvanced and engaged selectively in the right main pulmonary artery. Pulmonary artery pressures were re-obtained and calibrated with the CardioMEMS. The [place] catheter was removed, venous side-port sheath pulled. [...] the left pulmonary artery. PLAN: Aggressively diurese. /[id number] Leydi Hobbs MD AE/GRACE / AE / MODL /[id number] Electronically signed by Morales Mejia Conversion Servicenow Administrator Developer Cerner at 06/19/2022 11:07 PM CDT documented in this encounter Plan of Treatment Not on file documented as of this encounter Visit Diagnoses Not on filedocumented in this encounter
--- OUTSIDE RECORDS SUMMARY | 2025-02-24 14:55 | XMS_ITS | Encounter Summary ---
Author Organization [employer] ([place], [place], [place], [place], [place]) Address [address] [place] [address] Care Team Providers Care Hvac Journeyman Name Role Phone Unavailable Primary Care Provider Unavailabl e Encounter Details Date Type Department Care Team (Late st Contact Info) Description 04/11/2019 Transcribed Document [facility] [place] [facility] [place] [address] ProviderMg MD [facility] [place] [address] Social History Tobacco Use Types Packs/Day Years Used Date Smoking Tobacco: Never Assessed Sex and Gender Information Value Date Recorded Sex Assigned at Not on file Legal Sex Male 1:09 PM CDT Gender Identity Not on file Sexual Orientation Not on file documented as of this encounter Miscellaneous Notes * Cerner Conversion Note - Mg ProviderMD - 04/11/2019 4:28 PM SALES AND SERVICE ENGINEER Admission History, Adult Entered On: 04/11/2019 17:15 [...] 04/11/2019 17:09 EST General Info Support Person/Patient Prep Manager : Yes Support Person/Pt Rep Name : Neel Pearson-- Contact Password : neel Support Person/Pt Rep Contact Information : [phone] Want Family/Rep/Phys Notified of Admit : No Emergency Contact #1 : Beth Jiang Emergency Contact #1 Emergency Contact #1 Relationship : Emergency Contact #2 : na Emergency Contact #2 Phone Number : amaris Emergency Contact #2 Relationship : na Primary Language : Moldovan Preferred Communication Mode : Verbal Communication Barrier [...] Scale Risk Level : 0-24 Low Risk [place] Fall Interventions : Adequate lighting, Assistive devices [...] Source : Stated Height Entry Format : [place] Height, Feet : 6 ft(Converted to: 183 cm, 72 Inch) Height, Inches : 2 Inch(Converted to: 0 ft 2 Inch, 5.08 cm) Clinical Height : 187.96 cm Weight Source : Standing scale Weight Entry Format : [place] Clinical Dosing Weight : 112.73 kg Weight, Pounds : 248 lb Body Surface Area (BSA) : 2.38 m2 Body Mass Index : 31.9 kg/m2 (HI) [place] Body Weight : 81 kg Jennie Patel [...] Jennie Patel RN - 04/11/2019 17:09 EST [place] Suicide Severity Rating Scale (C-SSRS) CSSRS Past [...]
--- OUTSIDE RECORDS SUMMARY | 2025-02-24 14:55 | XMS_ITS | Encounter Summary ---
Author Organization [employer] ([place], [place], [place], [place], [place]) Address [address] [place] [address] Care Team Providers Care Automotive Painter Name Role Phone Unavailable Primary Care Provider Unavailabl e Encounter Details Date Type Department Care Team (Late st Contact Info) Description 04/13/2019 Transcribed Document [facility] [place] [facility] [place] [address] ProviderMg MD [facility] [place], [place] [id number] Social History Tobacco Use Types Packs/Day Years Used Date Smoking Tobacco: Never Assessed Sex and Gender Information Value Date Recorded Sex Assigned at Not on file Legal Sex Male 1:09 PM CDT Gender Identity Not on file Sexual Orientation Not on file documented as of this encounter Miscellaneous Notes * Cerner Conversion Note - Mg Ritchie MD - 04/13/2019 9:39 AM SUPERVISOR DETASSELING CREW Patient: JOSE PEARSON Age: 48 years Sex: [...] Pain (Mild 1-3) Xarelto: 10 mg, Oral, [id number] Zofran: 4 mg, IV Push, Q6H, PRN: [...]
--- OUTSIDE RECORDS SUMMARY | 2025-02-24 14:55 | XMS_ITS | Encounter Summary ---
Author Organization [employer] ([place], [place], [place], [place], [place]) Address [address] [place] [address] Care Team Providers Care Jacker Name Role Phone Unavailable Primary Care Provider Unavailabl e Encounter Details Date Type Department Care Team (Late st Contact Info) Description 04/12/[address] [facility] [place] [facility] [place] [address] ProviderMg MD [facility] [place] [id number] Social History Tobacco Use Types Packs/Day Years Used Date Smoking Tobacco: Never Assessed Sex and Gender Information Value Date Recorded Sex Assigned at Not on file Legal Sex Male 1:09 PM CDT Gender Identity Not on file Sexual Orientation Not on file documented as of this encounter Miscellaneous Notes * Cerner Conversion Note - Mg ProviderMD - 04/12/2019 2:[address] SCAN TECH UM Authorization Entered On: 04/12/2019 14:40 EST Performed On: 04/12/2019 14:39 EST by MARLENE THORNTON Rn-Utilization Review Primary Insurance Authorization Authorization and Policy Numbers : Insurance 1 Health Plan: ANTHEM HMOPPO Policy Number: [id number] Authorization Number: Insurance 2 Health Plan: MEDICARE Policy Number: [id number] Authorization Number: Insurance Primary Name : Ruben [...]
--- OUTSIDE RECORDS SUMMARY | 2025-02-24 14:55 | XMS_ITS | Encounter Summary ---
Author Organization [employer] ([place], [place], [place], [place], [place]) Address [address] [place] [address] Care Team Providers Care Dinkey Driver Name Role Phone Unavailable Primary Care Provider Unavailabl e Encounter Details Date Type Department Care Team (Late st Contact Info) Description 04/17/2019 Transcribed Document [facility] [place] [facility] [place] [address] ProviderMg MD [facility] [place], [place] [id number] Social History Tobacco Use Types Packs/Day Years Used Date Smoking Tobacco: Never Assessed Sex and Gender Information Value Date Recorded Sex Assigned at Not on file Legal Sex Male 1:09 PM CDT Gender Identity Not on file Sexual Orientation Not on file documented as of this encounter Miscellaneous Notes * Cerner Conversion Note - Mg ProviderMD - 04/17/2019 12:18 PM HIGH SCHOOL LIBRARY MEDIA SPECIALIST UM Authorization Entered On: 04/17/2019 12:19 EST Performed On: 04/17/2019 12:18 EST by Trudi Gaona Rn-Utilization Review Primary Insurance Authorization Authorization and Policy Numbers : Insurance 1 Health Plan: ANTHEM HMOPPO Policy Number: [id number] Authorization Number: [id number] Insurance 2 Health Plan: MEDICARE Policy Number: [id number] Authorization Number: Insurance Primary Name : Ruben [id number] Authorization Status-Primary : Admit approved Authorization Number-Primary : [id number] Number of Days Authorized-Primary : 1 Day(s) Authorized Service Begin Date-Primary : 04/11/2019 EST Authorized Service End Date-Primary : 04/12/2019 EST Historical Authorization Comments-Primary : Comment 1: Ruben approved per Liliana from [facility] approved inpt (CHARLA BARRAZA RN-Utilization Review 04/17/2019 09:55) Comment 2: Clinicals and ARC Administrators form faxed to [facility]. (MARLENE THORNTON, Rn-Utilization Review 04/12/2019 14:39) Trudi Gaona Rn-Utilization Review - 04/17/2019 12:18 EST documented in this encounter Plan of Treatment Not on file documented as of this encounter Visit Diagnoses Not on filedocumented in this encounter
--- OUTSIDE RECORDS SUMMARY | 2025-02-24 14:55 | XMS_ITS | Encounter Summary ---
Author Organization [employer] ([place], [place], [place], [place], [place]) Address [address] [place] [address] Care Team Providers Care Youth Court Judge Name Role Phone Unavailable Primary Care Provider Unavailabl e Encounter Details Date Type Department Care Team (Late st Contact Info) Description 04/12/2019 Transcribed Document [facility] [place] [facility] [place] [address] ProviderMg MD [facility] [place] [address] Social History Tobacco Use Types Packs/Day Years Used Date Smoking Tobacco: Never Assessed Sex and Gender Information Value Date Recorded Sex Assigned at Not on file Legal Sex Male 1:09 PM CDT Gender Identity Not on file Sexual Orientation Not on file documented as of this encounter Miscellaneous Notes * Cerner Conversion Note - Historical ProviderMD - 04/12/2019 2:00 AM WAFER CUTTER Fitting Room Operator Details Entered On: 04/12/2019 1:10 EST Performed [...]
--- OUTSIDE RECORDS SUMMARY | 2025-02-24 14:55 | XMS_ITS | Encounter Summary ---
Author Organization [employer] ([place], [place], [place], [place], [place]) Address [address] [place] [address] Care Team Providers Care Consumer Studies Professor Name Role Phone Unavailable Primary Care Provider Unavailabl e Encounter Details Date Type Department Care Team (Late st Contact Info) Description 05/02/2019 Transcribed Document [facility] [place] [facility] [address] [place] [address] Social History Tobacco Use Types Packs/Day Years Used Date Smoking Tobacco: Never Assessed Sex and Gender Information Value Date Recorded Sex Assigned at Not on file Legal Sex Male 1:09 PM CDT Gender Identity Not on file Sexual Orientation Not on file documented as of this encounter Miscellaneous Notes * Cerner Conversion Note - Historical ProviderMD - 05/02/2019 4:10 PM GOLD CUTTER Education-(VTE) / (DVT) Entered On: 05/02/2019 18:53 EST Performed On: 05/02/2019 16:10 EST by Chelo Cardenas RN Teaching/Learning Assessment Barriers To Learning : None evident Individuals Taught : Patient, Spouse Readiness to Learn : Explanation Chelo Cardenas RN - 05/02/2019 18:53 EST Electronically signed by Jackie [facility] Conversion Vinyl Welder And Fabricator Cerner at 06/19/2022 10:54 PM CDT documented in this encounter Plan of Treatment Not on file documented as of this encounter Visit Diagnoses Not on filedocumented in this encounter
--- OUTSIDE RECORDS SUMMARY | 2025-02-24 14:55 | XMS_ITS | Encounter Summary ---
Author Organization [employer] ([place], [place], [place], [place], [place]) Address [address] [place] [address] Care Team Providers Care Mathematical Scientist Name Role Phone Unavailable Primary Care Provider Unavailabl e Encounter Details Date Type Department Care Team (Late st Contact Info) Description 05/02/2019 Transcribed Document [facility] [place] [facility] [place] [address] ProviderMg MD [facility] [place] [address] Social History Tobacco Use Types Packs/Day Years Used Date Smoking Tobacco: Never Assessed Sex and Gender Information Value Date Recorded Sex Assigned at Not on file Legal Sex Male 1:09 PM CDT Gender Identity Not on file Sexual Orientation Not on file documented as of this encounter Miscellaneous Notes * Cerner Conversion Note - Historical ProviderMD - 05/02/2019 4:10 PM FIBER MACHINE TENDER Education-Cardiac Topics Entered On: 05/02/2019 18:53 EST Performed On: 05/02/2019 16:10 EST by Chelo Cardenas RN Teaching/Learning Assessment Barriers To Learning : None evident Individuals Taught : Patient, Spouse Readiness to Learn : Explanation Chelo Cardenas RN - 05/02/2019 18:53 EST Electronically signed by Jackie [facility] Conversion Hand Potter Cerner at 06/19/2022 10:59 PM CDT documented in this encounter Plan of Treatment Not on file documented as of this encounter Visit Diagnoses Not on filedocumented in this encounter
--- OUTSIDE RECORDS SUMMARY | 2025-02-24 14:55 | XMS_ITS | Encounter Summary ---
Author Organization [employer] ([place], [place], [place], [place], [place]) Address [address] [place] [address] Care Team Providers Care Felt Machine Mechanic Name Role Phone Unavailable Primary Care Provider Unavailabl e Encounter Details Date Type Department Care Team (Late st Contact Info) Description 04/13/2019 Transcribed Document [facility] [place] [facility] [place] [address] ProviderMg MD [facility] [place] [address] Social History Tobacco Use Types Packs/Day Years Used Date Smoking Tobacco: Never Assessed Sex and Gender Information Value Date Recorded Sex Assigned at Not on file Legal Sex Male 1:09 PM CDT Gender Identity Not on file Sexual Orientation Not on file documented as of this encounter Miscellaneous Notes * Cerner Conversion Note - Mg ProviderMD - 04/13/2019 12:36 PM STEMHOLE BORER Nursing Discharge Summary Entered On: 04/13/2019 12:37 EST Performed On: 04/13/2019 12:36 EST by Peg Huynh generating station mechanic Documentation Discharge Date/Time : 04/13/2019 13:15 EST Patient Disposition, General : Discharge Discharge To : Home with ambulatory/outpatient follow-up Peg Huynh RN - 04/13/2019 12:36 EST Electronically signed by Jackie [facility] Conversion Coater Slate Jessica at 06/19/2022 11:05 PM CDT documented in this encounter Plan of Treatment Not on file documented as of this encounter Visit Diagnoses Not on filedocumented in this encounter
--- OUTSIDE RECORDS SUMMARY | 2025-02-24 14:55 | XMS_ITS | Encounter Summary ---
Author Organization [employer] ([place], [place], [place], [place], [place]) Address [address] [place] [address] Care Team Providers Care Women'S Studies Professor Name Role Phone Unavailable Primary Care Provider Unavailabl e Encounter Details Date Type Department Care Team (Late st Contact Info) Description 05/08/2019 Transcribed Document [facility] [place] Family [place] [facility] [place] [address] ProviderMg MD [facility] [place] [address] Social History Tobacco Use Types Packs/Day Years Used Date Smoking Tobacco: Never Assessed Sex and Gender Information Value Date Recorded Sex Assigned at Not on file Legal Sex Male 1:09 PM CDT Gender Identity Not on file Sexual Orientation Not on file documented as of this encounter Miscellaneous Notes * Cerner Conversion Note - Historical ProviderMD - 05/08/2019 5:00 AM CARRIER DRIVER Chart Check - Review Order Profile Entered On: 05/08/2019 4:58 EST Performed On: 05/08/2019 5:00 EST by Reyna Nicolas RN Chart Check All Active Orders Reviewed : Yes Reyna Nicolas RN - 05/08/2019 4:58 EST Electronically signed by Jackie [facility] Conversion Headstart Teacher Heroner at 06/19/2022 11:14 PM CDT documented in this encounter Plan of Treatment Not on file documented as of this encounter Visit Diagnoses Not on filedocumented in this encounter
--- OUTSIDE RECORDS SUMMARY | 2025-02-24 14:55 | XMS_ITS | Encounter Summary ---
Author Organization [employer] ([place], [place], [place], [place], [place]) Address [address] [place] [address] Care Team Providers Care Fisher Oyster Name Role Phone Unavailable Primary Care Provider Unavailabl e Encounter Details Date Type Department Care Team (Late st Contact Info) Description 04/12/2019 Transcribed Document [facility] [place] [facility] [place] [address] ProviderMg MD [facility] [place] [address] Social History Tobacco Use Types Packs/Day Years Used Date Smoking Tobacco: Never Assessed Sex and Gender Information Value Date Recorded Sex Assigned at Not on file Legal Sex Male 1:09 PM CDT Gender Identity Not on file Sexual Orientation Not on file documented as of this encounter Miscellaneous Notes * Cerner Conversion Note - Mg ProviderMD - 04/12/2019 10:52 PM STEAM FINISHER Event Note Entered On: 04/12/2019 23:02 EST [...] 04/12/2019 22:52 EST Electronically signed by Jackie [facility] Conversion Corporate Health Consultant Cerner at 06/19/2022 11:04 PM CDT documented in this encounter Plan of Treatment Not on file documented as of this encounter Visit Diagnoses Not on filedocumented in this encounter
--- OUTSIDE RECORDS SUMMARY | 2025-02-24 14:55 | XMS_ITS | Encounter Summary ---
Author Organization [employer] ([place], [place], [place], [place], [place]) Address [address] [place] [address] Care Team Providers Care Rn Sexual Assault Name Role Phone Unavailable Primary Care Provider Unavailabl e Encounter Details Date Type Department Care Team (Late st Contact Info) Description 04/15/2019 Transcribed Document [facility] [place] [facility] [place] [address] ProviderMg MD [address] [place] [id number] Social History Tobacco Use Types Packs/Day Years Used Date Smoking Tobacco: Never Assessed Sex and Gender Information Value Date Recorded Sex Assigned at Not on file Legal Sex Male 1:09 PM CDT Gender Identity Not on file Sexual Orientation Not on file documented as of this encounter Miscellaneous Notes * Cerner Conversion Note - Historical ProviderMD - 04/15/2019 11:53 AM MAINSTREAMING FACILITATOR UM Authorization Entered On: 04/15/2019 11:53 EST Performed On: 04/15/2019 11:53 EST by CHARLA BARRAZA RN-Utilization Review Primary Insurance Authorization Authorization and Policy Numbers : Insurance 1 Health Plan: [employer] Policy Number: [id number] Authorization Number: Insurance 2 Health Plan: MEDICARE Policy Number: [id number] Authorization Number: Insurance Primary Name : Ruben [id number] Authorization Status-Primary : Awaiting callback Authorized Service Begin Date-Primary : 04/11/2019 EST Historical Authorization Comments-Primary : Comment 1: Clinicals and ARC Administrators form faxed to [facility]. (MARLENE THORNTON Rn-Utilization Review 04/12/2019 14:39) CHARLA BARRAZA RN-Utilization Review - 04/15/2019 11:53 EST Electronically signed by Jackie [facility] Conversion Manager Project Management Jessica at 06/19/2022 11:00 PM CDT documented in this encounter Plan of Treatment Not on file documented as of this encounter Visit Diagnoses Not on filedocumented in this encounter
--- OUTSIDE RECORDS SUMMARY | 2025-02-24 14:55 | XMS_ITS | Encounter Summary ---
Author Organization [employer] ([place], [place], [place], [place], [place]) Address [address] [place] [address] Care Team Providers Care Recoverer Name Role Phone Unavailable Primary Care Provider Unavailabl e Encounter Details Date Type Department Care Team (Late st Contact Info) Description 05/02/2019 Transcribed Document [facility] [place] Family Medicine [facility] [place] [address] ProviderMg MD [facility] [place] [address] Social History Tobacco Use Types Packs/Day Years Used Date Smoking Tobacco: Never Assessed Sex and Gender Information Value Date Recorded Sex Assigned at Not on file Legal Sex Male 1:09 PM CDT Gender Identity Not on file Sexual Orientation Not on file documented as of this encounter Miscellaneous Notes * Cerner Conversion Note - Mg ProviderMD - 05/02/2019 4:10 PM FOOT ORTHOPEDIST Nutrition Assessment Entered On: 05/03/2019 8:32 EST [...] EST Electronically signed by Morales Mejia Conversion Crown Assembly Machine Set Up Mechanic Jessica at 06/19/2022 10:56 PM CDT documented in this encounter Plan of Treatment Not on file documented as of this encounter Visit Diagnoses Not on filedocumented in this encounter
--- OUTSIDE RECORDS SUMMARY | 2025-02-24 14:55 | XMS_ITS | Encounter Summary ---
Author Organization [employer] ([place], [place], [place], [place], [place]) Address [address] [place] [address] Care Team Providers Care Network Planner Name Role Phone Unavailable Primary Care Provider Unavailabl e Encounter Details Date Type Department Care Team (Late st Contact Info) Description 04/12/2019 Transcribed Document [facility] [place] [facility] [place] [address] ProviderMg MD [facility] [place] [address] Social History Tobacco Use Types Packs/Day Years Used Date Smoking Tobacco: Never Assessed Sex and Gender Information Value Date Recorded Sex Assigned at Not on file Legal Sex Male 1:09 PM CDT Gender Identity Not on file Sexual Orientation Not on file documented as of this encounter Miscellaneous Notes * Cerner Conversion Note - Historical ProviderMD - 04/12/2019 5:00 AM LAST MODEL MAKER Chart Check - Review Order Profile Entered [...]
--- OUTSIDE RECORDS SUMMARY | 2025-02-24 14:55 | XMS_ITS | Encounter Summary ---
Author Organization [employer] ([place], [place], [place], [place], [place]) Address [address] [place] [address] Care Team Providers Care Military Pilot Name Role Phone Unavailable Primary Care Provider Unavailabl e Encounter Details Date Type Department Care Team (Late st Contact Info) Description 04/13/2019 Transcribed Document [facility] [place] Family Medicine [facility] [place] [address] ProviderMg MD [facility] [place] [address] Social History Tobacco Use Types Packs/Day Years Used Date Smoking Tobacco: Never Assessed Sex and Gender Information Value Date Recorded Sex Assigned at Not on file Legal Sex Male 1:09 PM CDT Gender Identity Not on file Sexual Orientation Not on file documented as of this encounter Miscellaneous Notes * Cerner Conversion Note - Mg Ritchie MD - 04/13/2019 12:44 PM DIRECTOR OF SEARCH ENGINE MARKETING [place] [id number] JOSE PEARSON :1970 Visit Time:04/12/2019 Your Visit [...] Where: [address] [place] [address]- Business (1) Medications What How Much When Instructions Next Dose dofetilide (Tikosyn 250 mcg oral capsule) 1 Capsule(s) Oral Two Times A Day Pickup at [facility] cetirizine (cetirizine 10 mg oral tablet) [...] 25 Milligram(s) Oral Every Day Pharmacy Information [facility]: [address] [place], [place] [id number] [phone] Take your medications faithfully. Do NOT skip [...] out more about heart disease, visit the [employer]'s website at www.americanheart.org This information is not intended to replace advice given to you by your health care provider. Make sure you discuss any questions you have with your health care provider. Document Released: 10/04/2004 Document Revised: 07/20/2016 Document Reviewed: 04/16/2014 Yumber Interactive Patient Education ?? 2019 [employer]. Cardiac Rehabilitation What is cardiac rehabilitation? [...] 01/04/2016 Elsevier Interactive Patient Education ?? 2019 ElseApp Partner Inc. Emergency Awareness and Preventative Care STROKE [...] Assistance with quitting is available by contacting 9-248-XBZGNOW. This is a free resource providing counseling, support, and referral. Or you may contact your personal physician. [employer] Suicide Prevention Lifeline: The National Suicide Prevention [...] range between ( 1.0 and 7.0 ) Benzie #: 0.93 K/uL -- Normal range between ( 0.24 and 0.82 ) Eos #: 0.27 K/uL -- Normal range between ( 0.04 and 0.54 ) Benzie %: 13.1 % -- Normal range between [...] ) Urine Bilirubin Dipstick: Negative Urine Specific [place]: 1.018 -- Normal range between ( 1.005 and 1.030 ) Urine Chemistry 04/11/2019 10:27 PM Osmolality Urine: 595 mOsm/kg -- Normal range between ( 250 and 900 ) Sodium Ur [place]: 64 mMole/Liter General Chemistry 04/13/2019 4:05 AM [...] was given the opportunity to ask questions. Patient/Barrel Bung Remover And Dumper Name: Patient/Barrel Bung Remover And Dumper Signature: Relationship to Patient: Clinician/Hospital Barrel Bung Remover And Dumper Signature: Date: Electronically signed by Jackie, [facility] Conversion Emanations Analysis Technician Jessica at 06/19/2022 11:10 PM CDT documented in this encounter Plan of Treatment Not on file documented as of this encounter Visit Diagnoses Not on filedocumented in this encounter
--- OUTSIDE RECORDS SUMMARY | 2025-02-24 14:55 | XMS_ITS | Encounter Summary ---
Author Organization [employer] ([place], [place], [place], [place], [place]) Address [address] [place] [address] Care Team Providers Care Microfilm Mounter Name Role Phone Unavailable Primary Care Provider Unavailabl e Encounter Details Date Type Department Care Team (Late st Contact Info) Description 04/13/2019 Transcribed Document [facility] [place] [facility] [place] [address] ProviderMg MD [facility] [place] [address] Social History Tobacco Use Types Packs/Day Years Used Date Smoking Tobacco: Never Assessed Sex and Gender Information Value Date Recorded Sex Assigned at Not on file Legal Sex Male 1:09 PM CDT Gender Identity Not on file Sexual Orientation Not on file documented as of this encounter Miscellaneous Notes * Cerner Conversion Note - Mg ProviderMD - 04/13/2019 12:46 PM SPOOLER RUBBER STRAND Nursing Discharge Summary Entered On: 04/13/2019 12:46 EST Performed On: 04/13/2019 12:46 EST by Peg Huynh fire patrol Documentation Discharge Date/Time : 04/13/2019 13:13 EST Patient Disposition, General : Discharge Discharge To : Home with ambulatory/outpatient follow-up Peg Huynh RN - 04/13/2019 12:46 EST Electronically signed by Jackie [facility] Conversion Bottom Turning Lathe Turner Jessica at 06/19/2022 11:04 PM CDT documented in this encounter Plan of Treatment Not on file documented as of this encounter Visit Diagnoses Not on filedocumented in this encounter
--- OUTSIDE RECORDS SUMMARY | 2025-02-24 14:55 | XMS_ITS | Encounter Summary ---
Author Organization [employer] ([place], [place], [place], [place], [place]) Address [address] [place] [address] Care Team Providers Care Django Developer Name Role Phone Unavailable Primary Care Provider Unavailabl e Encounter Details Date Type Department Care Team (Late st Contact Info) Description 2019 Transcribed Document [facility] [place] [facility] [place] [address] ProviderMg MD [facility] [place] [id number] Social History Tobacco Use Types Packs/Day Years Used Date Smoking Tobacco: Never Assessed Sex and Gender Information Value Date Recorded Sex Assigned at Not on file Legal Sex Male 1:09 PM CDT Gender Identity Not on file Sexual Orientation Not on file documented as of this encounter Miscellaneous Notes * Cerner Conversion Note - Mg Ritchie MD - 2019 11:44 AM DIESEL TRAILER MECHANIC Patient: JOSE PEARSON Age: 48 years Sex: [...] 20 mg, Oral, At Bedtime Flonase: 1 [place], Nostrils Both, BID Melatonin: 3 mg, Oral, [...] Pain (Mild 1-3) Xarelto: 20 mg, Oral, [id number] Zofran: 4 mg, IV Push, Q6H, PRN: [...] At Bedtime fluticasone 0.05% nasal spray 1 [place], Nostrils Both, BID loratadine 10 mg tab [...] mg tab 20 mg 1 Tab, Oral, [id number] spironolactone 25 mg tab 50 mg 2 [...] Problem list: Medical angina / SNOMED CT 297890228 / Confirmed Cardiac defibrillator in place / SNOMED CT 4456725624 / Confirmed interrogated at physicians office---02/22/13 pacemaker / SNOMED CT 2832180808 / Confirmed stroke / SNOMED CT 928951451 / Confirmed he had a stroke when they found the blood clot in valve History of obstructive sleep apnea / IMO 94950760 / Confirmed high cholesterol / SNOMED CT 14614310 / Confirmed hypertension / SNOMED CT 4881074248 / Confirmed myocardial infarction / SNOMED CT 82671590 / Confirmed sesonal allergies / SNOMED CT 0556987461 / Confirmed Resolved: At risk for sleep apnea / IMO 76251691 Resolved: 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 / SNOMED CT 410916491 treated with blood thinners, Active Problems (16) [...] benefit from advanced CHF management at [facility] for eval for transplant/LVAD. 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 documented in this encounter Plan of Treatment Not on file documented as of this encounter Visit Diagnoses Not on filedocumented in this encounter
--- OUTSIDE RECORDS SUMMARY | 2025-02-24 14:55 | XMS_ITS | Encounter Summary ---
Author Organization [employer] ([place], [place], [place], [place], [place]) Address [address] [place] [address] Care Team Providers Care C Web Developer Name Role Phone Unavailable Primary Care Provider Unavailabl e Encounter Details Date Type Department Care Team (Late st Contact Info) Description 05/08/2019 Transcribed Document [facility] [place] [address] [place] [address] ProviderMg MD [facility] [place] [address] Social History Tobacco Use Types Packs/Day Years Used Date Smoking Tobacco: Never Assessed Sex and Gender Information Value Date Recorded Sex Assigned at Not on file Legal Sex Male 1:09 PM CDT Gender Identity Not on file Sexual Orientation Not on file documented as of this encounter Miscellaneous Notes * Cerner Conversion Note - Mg ProviderMD - 05/08/2019 5:59 PM FOURTH OFFICER Cardiac and Pulmonary Outpatient T[place] Entered On: 05/14/2019 15:44 EDT Performed On: 05/14/2019 15:44 EDT by EDITH CHAVIS tank cleaner and Pulmonary Outpatient Tiana Phase 2 Cardiac Rehab Criteria Met : Heart failure (HF) Cardiac Outpatient Rehab Evaluation Comment : Order faxed to [place] due to pts location. EDITH CHAVIS RN - 05/14/2019 15:44 EDT documented in this encounter Plan of Treatment Not on file documented as of this encounter Visit Diagnoses Not on filedocumented in this encounter
--- OUTSIDE RECORDS SUMMARY | 2025-02-24 14:55 | XMS_ITS | Encounter Summary ---
Author Organization [employer] ([place], [place], [place], [place], [place]) Address [address] [place] [address] Care Team Providers Care Shareholder Name Role Phone Unavailable Primary Care Provider Unavailabl e Encounter Details Date Type Department Care Team (Late st Contact Info) Description 04/12/2019 Transcribed Document [facility] [place] Medicine [facility] [place] [address] ProviderMg MD [facility] [place] [address] Social History Tobacco Use Types Packs/Day Years Used Date Smoking Tobacco: Never Assessed Sex and Gender Information Value Date Recorded Sex Assigned at Not on file Legal Sex Male 1:09 PM CDT Gender Identity Not on file Sexual Orientation Not on file documented as of this encounter Miscellaneous Notes * Cerner Conversion Note - Historical ProviderMD - 04/12/2019 11:09 AM MIXING TUMBLER OPERATOR [facility] OT Charges Entered On: 04/12/2019 11:09 EST Performed On: 04/12/2019 11:09 EST by NAHUM CORNELIUS OTR/Kaushal Hager OT Charges Screen For Auto Carrier Driver : 1 NAHUM CORNELIUS OTR/Kaushal - 04/12/2019 11:09 EST documented in this encounter Plan of Treatment Not on file documented as of this encounter Visit Diagnoses Not on filedocumented in this encounter
--- OUTSIDE RECORDS SUMMARY | 2025-02-24 14:55 | XMS_ITS | Encounter Summary ---
Author Organization [employer] ([place], [place], [place], [place], [place]) Address [address] [place] [address] Care Team Providers Care Admissions Manager Rn Name Role Phone Unavailable Primary Care Provider Unavailabl e Encounter Details Date Type Department Care Team (Late st Contact Info) Description 06/26/2018 Transcribed Document [facility] [place] [facility] [place] [address] ProviderMg MD [facility] [place] [address] Social History Tobacco Use Types [...] On: 06/26/2018 14:26 EDT by DENVER NICOLE hydrometeorological technician Documentation Discharge Date/Time : 06/26/2018 14:42 EDT [...]
--- OUTSIDE RECORDS SUMMARY | 2025-02-24 14:55 | XMS_ITS | Encounter Summary ---
Author Organization [employer] ([place], [place], [place], [place], [place]) Address [address] [place] [address] Care Team Providers Care Heat Treat Furnace Operator Name Role Phone Unavailable Primary Care Provider Unavailabl e Encounter Details Date Type Department Care Team (Late st Contact Info) Description 05/03/2019 Transcribed Document [facility] [place] [address] [place] [address] ProviderMg MD [address] [place], [place] [address] Social History Tobacco Use Types Packs/Day Years Used Date Smoking Tobacco: Never Assessed Sex and Gender Information Value Date Recorded Sex Assigned at Not on file Legal Sex Male 1:09 PM CDT Gender Identity Not on file Sexual Orientation Not on file documented as of this encounter Miscellaneous Notes * Cerner Conversion Note - Historical ProviderMD - 05/03/2019 2:00 AM LINER INSTALLER Music Intern Details Entered On: 05/03/2019 4:03 EST Performed [...]
--- OUTSIDE RECORDS SUMMARY | 2025-02-24 14:55 | XMS_ITS | Encounter Summary ---
Author Organization [employer] ([place], [place], [place], [place], [place]) Address [address] [place] [address] Care Team Providers Care Director Of Environmental Services Name Role Phone Unavailable Primary Care Provider Unavailabl e Encounter Details Date Type Department Care Team (Late st Contact Info) Description 04/12/2019 Transcribed Document [facility] [place] [facility] [place] [address] ProviderMg MD [facility] [place] [address] Social History Tobacco Use Types Packs/Day Years Used Date Smoking Tobacco: Never Assessed Sex and Gender Information Value Date Recorded Sex Assigned at Not on file Legal Sex Male 1:09 PM CDT Gender Identity Not on file Sexual Orientation Not on file documented as of this encounter Miscellaneous Notes * Cerner Conversion Note - Historical ProviderMD - 04/12/2019 5:00 AM RADIATION / CHEMISTRY TECHNICIAN Height and Weight, Routine Entered On: 04/12/2019 6:40 EST Performed On: 04/12/2019 5:00 EST by Ashely Townsend RN Height and Weight, Routine Routine Weight Source : Standing scale Routine Weight Entry Format : [place] Routine Weight, Pounds : 244 lb Routine Weight, Ounces : 7 oz Routine Weight Calculation : 111.11 kg Height Source : Stated Height Entry Format : [place] Height, Feet : 6 ft Height, Inches : 2 Inch Clinical Height : 187.96 cm Body Surface Area (BSA), Routine : 2.37 m2 Body Mass Index (BMI), Routine : 31.45 kg/m2 Ashely Townsend RN - 04/12/2019 6:39 EST Electronically signed by Jackie [facility] Conversion Family Life Educator Cerner at 06/19/2022 11:11 PM CDT documented in this encounter Plan of Treatment Not on file documented as of this encounter Visit Diagnoses Not on filedocumented in this encounter
--- OUTSIDE RECORDS SUMMARY | 2025-02-24 14:55 | XMS_ITS | Encounter Summary ---
Author Organization [employer] ([place], [place], [place], [place], [place]) Address [address] [place] [address] Care Team Providers Care Physicist Solid Earth Name Role Phone Unavailable Primary Care Provider Unavailabl e Encounter Details Date Type Department Care Team (Late st Contact Info) Description 05/09/2019 Transcribed Document [facility] Family Medicine [facility] [place] [address] ProviderMg MD [facility] [place] [address] Social History Tobacco Use Types Packs/Day Years Used Date Smoking Tobacco: Never Assessed Sex and Gender Information Value Date Recorded Sex Assigned at Not on file Legal Sex Male 1:09 PM CDT Gender Identity Not on file Sexual Orientation Not on file documented as of this encounter Miscellaneous Notes * Cerner Conversion Note - Historical ProviderMD - 05/09/2019 5:00 AM HAY FARMER Chart Check - Review Order Profile Entered On: 05/09/2019 4:25 EST Performed On: 05/09/2019 5:00 EST by Ashely Townsend RN Chart Check Powerplans Initiated/Discontinued as Appropriate : Yes All Active Orders Reviewed : Yes Ashely Townsend RN - 05/09/2019 4:25 EST Electronically signed by Morales Mejia Conversion Security Assurance Specialist Cerner at 06/19/2022 10:58 PM CDT documented in this encounter Plan of Treatment Not on file documented as of this encounter Visit Diagnoses Not on filedocumented in this encounter
--- OUTSIDE RECORDS SUMMARY | 2025-02-24 14:56 | XMS_ITS | Encounter Summary ---
Author Organization [employer] ([place], [place], [place], [place], [place]) Address [address] [place] [address] Care Team Providers Care Bus Assistant Name Role Phone Unavailable Primary Care Provider Unavailabl e Encounter Details Date Type Department Care Team (Late st Contact Info) Description 05/04/2019 Transcribed Document [facility] [place] [address] [place] [address] ProviderMg MD [facility] [place] [address] Social History Tobacco Use Types Packs/Day Years Used Date Smoking Tobacco: Never Assessed Sex and Gender Information Value Date Recorded Sex Assigned at Not on file Legal Sex Male 1:09 PM CDT Gender Identity Not on file Sexual Orientation Not on file documented as of this encounter Miscellaneous Notes * Cerner Conversion Note - Historical ProviderMD - 05/04/2019 5:00 AM IT TRAINER Chart Check - Review Order Profile Entered On: 05/04/2019 6:34 EST Performed On: 05/04/2019 5:00 EST by Carlos Ojeda RN Chart Check Powerplans Initiated/Discontinued as Appropriate : Yes All Active Orders Reviewed : Yes Carlos Ojeda RN - 05/04/2019 6:34 EST Electronically signed by Otis Mejia Conversion Bilingual Administrative Assistant Cerner at 06/19/2022 11:00 PM CDT documented in this encounter Plan of Treatment Not on file documented as of this encounter Visit Diagnoses Not on filedocumented in this encounter
--- OUTSIDE RECORDS SUMMARY | 2025-02-24 14:56 | XMS_ITS | Encounter Summary ---
Author Organization [employer] ([place], [place], [place], [place], [place]) Address [address] [place] [address] Care Team Providers Care Floor Coverings Salesperson Name Role Phone Unavailable Primary Care Provider Unavailabl e Encounter Details Date Type Department Care Team (Late st Contact Info) Description 05/05/2019 Transcribed Document [facility] [place] [facility] [place] [address] ProviderMg MD [facility] [place] [address] Social History Tobacco Use Types Packs/Day Years Used Date Smoking Tobacco: Never Assessed Sex and Gender Information Value Date Recorded Sex Assigned at Not on file Legal Sex Male 1:09 PM CDT Gender Identity Not on file Sexual Orientation Not on file documented as of this encounter Miscellaneous Notes * Cerner Conversion Note - Historical ProviderMD - 05/05/2019 5:00 PM BOX SEALING MACHINE OPERATOR Chart Check - Review Order [...]
--- OUTSIDE RECORDS SUMMARY | 2025-02-24 14:56 | XMS_ITS | Clinical Summary ---
Author Organization [facility] Address [address] [place] [id number] Care Team Providers Care Manager Chemical Name Role Phone Herberth Perez MD Primary Care Provider [phone] Allergies Active Allergy Reactions Criticality Noted Date [...] (11/10/2024 4:57 PM EDT): Patient treated for [place] acquired pneumonia of the right lung approximately 3 months ago. This diagnosis after 4 to 5 days of right sided chest discomfort with breathing, a bit of heaviness sensation and increasing cough. Patient came to be evaluated by his regular PCP, Dr. Herberth Perez despite being urged to seek ER evaluation. His welt sole layer obtained x-ray imaging which showed right lung [...] further evaluation emergency department. Prescriptions sent to [facility] here in [place] -Augmentin 875 mg / 125 mg twice [...] He did not want to go to [facility] ER, such as welt sole layer to obtain x-ray imaging through [facility] on 07/31/2024 which showed right lung [...] his significant risk factors, similar to his welt sole layer I would strongly recommend [facility] ER evaluation [...] Colonoscopy 01/16/[address] Curiel at [facility] with internal hemorrhoids, 5 mm sessile [...] recommend him having further evaluation by the [place] road test, additional certified driving specialist evaluation [...] nonischemic dilated cardiomyopathy/congestive heart failure, diagnosis per welt sole layer, Dr. Leydi Hobbs. Assessment & Plan (09/06/2023 [...] 3.21, this coincided with a hospitalization at [facility] where he was evaluated further, found to [...] 3.21, this coincided with a hospitalization at [facility] where he was evaluated further, found to [...] 3.21, this coincided with a hospitalization at [facility] where he was evaluated further, found to [...] 3.21, this coincided with a hospitalization at [facility] where he was evaluated further, found to [...] Immunizations Immunization Administration Dates Next Due COVID-19 (Antuit) Purple Cap Monovalent 02/09/20 21,06/02/2020,05/08/2020 Flu Vaccine [...] Comment:Blood Release to pat i Narrative [facility] (AMBULATORY) - 09/07/2023 10:07 AM EDT Performed at: 01 - [facility] [address] [place] [address] [id number] Tape Maker: Martin Escudero PhD, Phone: [phone] us Herberth Perez MD LAB BLOOD ORDERABLES Final Resul t [facility] [address] [place] [address], [facility] [address] [place] [address], * COLONOSCOPY (01/16/2019) Colonoscopy SEE REPORT Mg Ritchie MD HEALTH MAINTENANCE Final Result from Last 3 Months or Most Recently Relevant to Health Maintenance Insurance MEDICAID [facility] [employer] BLUE SHIELD PPO Care Teams Manager Chemical Relationship Specialty Start Date End Date Herberth Perez MD [address] [place] [address] [place] [address] PCP - General Internal Medicine 04/22/17 Dr. Mclaughlin Consulting Physician Infectious Diseases 06/05/23
--- OUTSIDE RECORDS SUMMARY | 2025-02-24 14:56 | XMS_ITS | Encounter Summary ---
Author Organization [employer] ([place], [place], [place], [place], [place]) Address [address] [place] [address] Care Team Providers Care Manager Immunology Name Role Phone Unavailable Primary Care Provider Unavailabl e Encounter Details Date Type Department Care Team (Late st Contact Info) Description 05/06/2019 Transcribed Document [facility] [place] [facility] [place] [address] ProviderMg MD [facility] [place] [address] Social History Tobacco Use Types Packs/Day Years Used Date Smoking Tobacco: Never Assessed Sex and Gender Information Value Date Recorded Sex Assigned at Not on file Legal Sex Male 1:09 PM CDT Gender Identity Not on file Sexual Orientation Not on file documented as of this encounter Miscellaneous Notes * Cerner Conversion Note - Historical ProviderMD - 05/06/2019 5:09 PM NETWORKING TECHNICIAN Event Note Entered On: 05/06/2019 19:44 EST Performed On: 05/06/2019 17:09 EST by Gracia Carl, Collection Development LibrarianHealth Unit Coord Event Note Event Date/Time : 05/06/2019 17:09 EST Event Location : Assigned room Event Details : Other: Transfer Gracia Carl Collection Development Librarian-Health Unit Coord - 05/06/2019 19:43 EST Description of Event : Pt transferred from ICU via wheelchair accompanied by RN. Pt is A&Ox4 w/ no signs of distress or discomfort. Oriented pt to room & call light. at bedside. Agree w/ previous assessment unless otherwise noted. Will continue to monitor for changes. Gracia Calr Collection Development Librarian-Health Unit Coord - 05/06/2019 19:48 EST Electronically signed by Morales Mejia Conversion Azure Principal Solution Specialist Cerner at 06/19/2022 10:51 PM CDT documented in this encounter Plan of Treatment Not on file documented as of this encounter Visit Diagnoses Not on filedocumented in this encounter
--- OUTSIDE RECORDS SUMMARY | 2025-02-24 14:56 | XMS_ITS | Encounter Summary ---
Author Organization [employer] ([place], [place], [place], [place]) Address [address] [place] [address] Care Team Providers Care Shed Hand Name Role Phone Unavailable Primary Care Provider Unavailabl e Encounter Details Date Type Department Care Team (Late st Contact Info) Description 05/06/2019 Transcribed Document [facility] Family Medicine [address] [place] [address] ProviderMg MD [address] [place], [place] [id number] Social History Tobacco Use Types Packs/Day Years Used Date Smoking Tobacco: Never Assessed Sex and Gender Information Value Date Recorded Sex Assigned at Not on file Legal Sex Male 1:09 PM CDT Gender Identity Not on file Sexual Orientation Not on file documented as of this encounter Miscellaneous Notes * Cerner Conversion Note - Historical ProviderMD - 05/06/2019 10:45 AM STUDIO ENGINEER Event Note Entered On: 05/06/2019 10:47 EST [...]
--- OUTSIDE RECORDS SUMMARY | 2025-02-24 14:56 | XMS_ITS | Encounter Summary ---
Author Organization [employer] ([place], [place], [place], [place], [place]) Address [address] [place] [address] Care Team Providers Care Karate Black Belt Name Role Phone Unavailable Primary Care Provider Unavailabl e Encounter Details Date Type Department Care Team (Late st Contact Info) Description 05/06/2019 Transcribed Document [facility] [place] Family Medicine Replaced by [facility] [place] [address] ProviderMg MD Replaced by [facility] [place] [address] Social History Tobacco Use Types Packs/Day Years Used Date Smoking Tobacco: Never Assessed Sex and Gender Information Value Date Recorded Sex Assigned at Not on file Legal Sex Male 1:09 PM CDT Gender Identity Not on file Sexual Orientation Not on file documented as of this encounter Miscellaneous Notes * Cerner Conversion Note - Mg ProviderMD - 05/06/2019 8:05 AM RADIO PRESENTER UM Authorization Entered On: 05/06/2019 8:17 EST Performed On: 05/06/2019 8:05 EST by ARMANDO SHANNON RN-Utilization Review Primary Insurance Authorization Authorization and Policy Numbers : Insurance 1 Health Plan: [facility] Policy Number: Authorization Number: Insurance Primary Name : [employer] Administ[employer] Authorization Status-Primary : Admit approved Authorization Number-Primary : [id number] Authorized Service Begin Date-Primary : 05/03/2019 EST Authorization Comments-Primary : Per [facility], admit approved with auth #[id number] given from 05/03-05/05/19. Next review date 05/06/19. Historical Authorization Comments-Primary : Comment 1: Uploaded clinicals to [employer] administrators via [email or web address]. Manually faxed [employer] form. (ARMANDO SHANNON RN-Utilization Review 05/03/2019 13:31) ARMANDO SHANNON RN-Utilization Review - 05/06/2019 8:05 EST Electronically signed by [facility] Conversion Quality Assurance Technician Cerner at 06/19/2022 11:08 PM CDT documented in this encounter Plan of Treatment Not on file documented as of this encounter Visit Diagnoses Not on filedocumented in this encounter
--- OUTSIDE RECORDS SUMMARY | 2025-02-24 14:56 | XMS_ITS | Encounter Summary ---
Author Organization [employer] ([place], [place], [place], [place]) Address [address] [place] [address] Care Team Providers Care Destination Specialist Name Role Phone Unavailable Primary Care Provider Unavailabl e Encounter Details Date Type Department Care Team (Late st Contact Info) Description 05/03/2019 Transcribed Document [facility] [place] [facility] [place] [address] ProviderMg MD [facility] [place] [address] Social History Tobacco Use Types Packs/Day Years Used Date Smoking Tobacco: Never Assessed Sex and Gender Information Value Date Recorded Sex Assigned at Not on file Legal Sex Male 1:09 PM CDT Gender Identity Not on file Sexual Orientation Not on file documented as of this encounter Miscellaneous Notes * Cerner Conversion Note - Historical ProviderMD - 05/03/2019 10:[address] [facility] PT Charges Entered On: 05/03/2019 [...]
--- OUTSIDE RECORDS SUMMARY | 2025-02-24 14:56 | XMS_ITS | Encounter Summary ---
Author Organization [employer] ([place]) Address [address] [place] [address] Care Team Providers Care Hydrator Operator Name Role Phone Unavailable Primary Care Provider Unavailabl e Encounter Details Date Type Department Care Team (Late st Contact Info) Description 05/06/2019 Transcribed Document [facility] [place] Medicine [facility] [place] [address] ProviderMg MD [facility] [place], [place] [id number] Social History Tobacco Use Types Packs/Day Years Used Date Smoking Tobacco: Never Assessed Sex and Gender Information Value Date Recorded Sex Assigned at Not on file Legal Sex Male 1:09 PM CDT Gender Identity Not on file Sexual Orientation Not on file documented as of this encounter Miscellaneous Notes * Cerner Conversion Note - Mg Ritchie MD - 05/06/2019 11:29 AM HYDRAULIC BILLET MAKER Patient: JOSE PEARSON Age: 48 years Sex: [...] 135 mL/Hr, IV Piggyback, Daily Flonase: 1 [place], Nostrils Both, BID Melatonin: 3 mg, Oral, [...] now 12 years past diagnosis. - Per [employer] - CardioMEMS approval with [place] may take several weeks - will have [...]
--- OUTSIDE RECORDS SUMMARY | 2025-02-24 14:56 | XMS_ITS | Encounter Summary ---
Author Organization [employer] ([place], [place], [place]) Address [address] [place] [address] Care Team Providers Care Microstrategy Architect Developer Name Role Phone Unavailable Primary Care Provider Unavailabl e Encounter Details Date Type Department Care Team (Late st Contact Info) Description 05/03/2019 Transcribed Document [facility] [place] Family Medicine [address] [place] [address] ProviderMg MD [address] [place], [place] [address] Social History Tobacco Use Types Packs/Day Years Used Date Smoking Tobacco: Never Assessed Sex and Gender Information Value Date Recorded Sex Assigned at Not on file Legal Sex Male 1:09 PM CDT Gender Identity Not on file Sexual Orientation Not on file documented as of this encounter Miscellaneous Notes * Cerner Conversion Note - Historical ProviderMD - 05/03/2019 1:31 PM PROPERTY DEVELOPER UM Authorization Entered On: 05/03/2019 13:33 EST Performed On: 05/03/2019 13:31 EST by ARMANDO SHANNON RN-Utilization Review Primary Insurance Authorization Authorization and Policy Numbers : Insurance 1 Health Plan: [facility] Policy Number: Authorization Number: Insurance Primary Name : [employer] Administators Authorization Status-Primary : Awaiting callback Authorized Service Begin Date-Primary : 05/03/2019 EST Authorization Comments-Primary : Uploaded clinicals to [employer] administrators via [employer]. Manually faxed [employer] form. Historical Authorization Comments-Primary : No Authorization Comments Found ARMANDO SHANNON RN-Utilization Review - 05/03/2019 13:31 EST documented in this encounter Plan of Treatment Not on file documented as of this encounter Visit Diagnoses Not on filedocumented in this encounter
--- OUTSIDE RECORDS SUMMARY | 2025-02-24 14:56 | XMS_ITS | Encounter Summary ---
Author Organization [employer] ([place], [place], [place]) Address [address] [place] [address] Care Team Providers Care Occasional Babysitter Name Role Phone Unavailable Primary Care Provider Unavailabl e Encounter Details Date Type Department Care Team (Late st Contact Info) Description 05/05/2019 Transcribed Document [facility] [place] Family Medicine [address] [place] [address] ProviderMg MD [facility] [place] [address] Social History Tobacco Use Types Packs/Day Years Used Date Smoking Tobacco: Never Assessed Sex and Gender Information Value Date Recorded Sex Assigned at Not on file Legal Sex Male 1:09 PM CDT Gender Identity Not on file Sexual Orientation Not on file documented as of this encounter Miscellaneous Notes * Cerner Conversion Note - Historical ProviderMD - 05/05/2019 5:00 AM FIRE EQUIPMENT INSPECTOR Chart Check - Review Order Profile Entered [...]
--- OUTSIDE RECORDS SUMMARY | 2025-02-24 14:56 | XMS_ITS | Encounter Summary ---
Author Organization [employer] ([place], [place], [place], [place]) Address [address] [place] [address] Care Team Providers Care Cook Helper Name Role Phone Unavailable Primary Care Provider Unavailabl e Encounter Details Date Type Department Care Team (Late st Contact Info) Description 05/06/2019 Transcribed Document [facility] [place] Family Medicine [facility] [place] [address] ProviderMg MD [address] [place] [address] Social History Tobacco Use Types Packs/Day Years Used Date Smoking Tobacco: Never Assessed Sex and Gender Information Value Date Recorded Sex Assigned at Not on file Legal Sex Male 1:09 PM CDT Gender Identity Not on file Sexual Orientation Not on file documented as of this encounter Miscellaneous Notes * Cerner Conversion Note - Mg ProviderMD - 05/06/2019 12:11 PM RUBBING BED OPERATOR UM Authorization Entered On: 05/06/2019 12:12 EST Performed On: 05/06/2019 12:11 EST by ARMANDO SHANNON RN-Utilization Review Primary Insurance Authorization Authorization and Policy Numbers : Insurance 1 Health Plan: [facility] Policy Number: Authorization Number: Insurance Primary Name : [facility] Administators Authorization Status-Primary : Admit approved Authorization Number-Primary : [id number] Authorized Service Begin Date-Primary : 05/03/2019 EST Authorization Comments-Primary : Uploaded continuing stay clinicals (05/06/19) to [facility] via [employer]. Historical Authorization Comments-Primary : Comment 1: Per [facility], admit approved with auth #[id number] given from 05/03-05/05/19. Next review date 05/06/19. (ARMANDO SHANNON RN-Utilization Review 05/06/2019 08:05) Comment 2: Uploaded clinicals to [facility] administrators via [email or web address]. Manually faxed [employer] form. (MIRTHA, ARMANDO, RN-Utilization Review 05/03/2019 13:31) ARMANDO SHANNON RN-Utilization Review - 05/06/2019 12:11 EST Electronically signed by Jcakie kerline Conversion Button Decorating Machine Operator Cerner at 06/19/2022 10:50 PM CDT documented in this encounter Plan of Treatment Not on file documented as of this encounter Visit Diagnoses Not on filedocumented in this encounter
--- OUTSIDE RECORDS SUMMARY | 2025-02-24 14:56 | XMS_ITS | Encounter Summary ---
Author Organization [employer] ([place], [place], [place], [place], [place]) Address [address] [place] [address] Care Team Providers Care Acute Dialysis Registered Nurse Name Role Phone Unavailable Primary Care Provider Unavailabl e Encounter Details Date Type Department Care Team (Late st Contact Info) Description 05/03/[address] [facility] [place] [facility] [place] [address] ProviderMg MD [facility] [place] [address] Social History Tobacco Use Types Packs/Day Years Used Date Smoking Tobacco: Never Assessed Sex and Gender Information Value Date Recorded Sex Assigned at Not on file Legal Sex Male 1:09 PM CDT Gender Identity Not on file Sexual Orientation Not on file documented as of this encounter Miscellaneous Notes * Cerner Conversion Note - Mg ProviderMD - 05/03/2019 10:52 AM VENDOR MANAGEMENT SPECIALIST Initial Discharge Planning Entered On: 05/03/2019 10:56 EST Performed On: 05/03/2019 10:52 EST by TANVIR THAYER Rn-Customer Success Intern Initial Assessment I Previously Documented Living Environment : No qualifying data available. Living Situation : Home Patient Lives With : Spouse Emergency Contact #1 : Deidre Pearson Emergency Contact #1 Emergency Contact #1 Relationship : Emergency Contact #2 : none Emergency Contact #2 Phone Number : none Emergency Contact #2 Relationship : none TANVIR THAYER Rn-Customer Success Intern - 05/03/2019 10:52 EST Initial Assessment II Current Home Treatments and Equipment : CPAP TANVIR THAYER Rn-Customer Success Intern - 05/03/2019 10:52 EST Discharge Needs I Anticipated Discharge Date : 05/04/2019 EST Anticipated Discharge To, CM : Home independently Current Home Treatment/Equipment : Current Home Treatment/Equipment No qualifying data available. Post Acute/Home Treatments : CPAP Documentation Status Complete : Yes TANVIR THAYER Rn-Customer Success Intern - 05/03/2019 10:52 EST Discharge Needs II Professional Skilled Services : Professional Skilled Services No qualifying data available. TANVIR THAYER Rn-Customer Success Intern - 05/03/2019 10:52 EST Narrative Note Narrative Note : Patient from MD office. Patient has PAcemaker ICD per nurse in multidisciplinary rounds EF is < 20. Lives with spouse is IADL's has CPap at home. No acute needs identified by CM he is a high risk for readmission. CM will follow. TANVIR THAYER Rn-Customer Success Intern - 05/03/2019 10:52 EST documented in this encounter Plan of Treatment Not on file documented as of this encounter Visit Diagnoses Not on filedocumented in this encounter
--- OUTSIDE RECORDS SUMMARY | 2025-02-24 14:56 | XMS_ITS | Encounter Summary ---
Author Organization [facility] Address [address] [facility] [facility] [place] [address] Care Team Providers Care Laminating Machine Offbearer Name Role Phone Herberth Perez MD Primary Care Provider Katrin Oviedo RN Unavailable [phone] Zaida Lafleur BROWNELL OPERATOR Unavailable Gracia Petersen BROWNELL OPERATOR Unavailable [phone] Yunior Solorzano MD Unavailable [phone] Ross Baez DO Unavailable Edith Aleman RN Unavailable Unavailable Reason for Visit * Reason Comments Med Refill Encounter Details Date Type Department Care Team (Late st Contact Info) Description 07/13/2022 Refill [facility] [place] [address] [facility] [place] [id number] Melisa Vazquez MD [address] [place] [address] Social History Tobacco Use [...] drink first t janine in the morning (EYE-AGILE SCRUM MASTER) to steady your nerves or to get [...] Description 04/22/2025 9:00 AM EST Ancillary Procedure [facility] [place] [address] [place] [address] documented as of this encounter Visit Diagnoses [...] documented as of this encounter Care Teams Laminating Machine Offbearer Relationship Specialty Start Date End Date Herberth Perez MD [address] [place] [address] PCP - General 5/14/21 Katrin Oviedo, RN [facility] [address] [place] [address] VAD Coordinator Cardiology 08/06/20 10/21/24 Zaida Lafleur APRN [address] [place] [address] Nurse Practitioner Advanced Heart Failure and Transplant Cardiology 08/06/20 06/11/23 Gracia Petersen, BROWNELL OPERATOR [address] [place] [address] Nurse Practitioner Internal Medicine 08/06/20 Yunior Solorzano MD [address] [place] [address] Consulting Physician Gastroenterology 07/18/22 Ross Baez DO [address] [address] Surgeon Cardiothoracic Surgery 07/18/22 Edith Aleman, SLIDE ATTENDANT None VAD Coordinator 10/14/24 documented as of this encounter
--- OUTSIDE RECORDS SUMMARY | 2025-02-24 14:56 | XMS_ITS | Encounter Summary ---
Author Organization [facility] Address [address] [place] [address] Care Team Providers Care It Manager Name Role Phone Herberth Perez MD Primary Care Provider Katrin Oviedo RN Unavailable [phone] Zaida Lafleur PANTS MAKER Unavailable Gracia Petersen PANTS MAKER Unavailable Yunior Solorzano MD Unavailable [phone] Ross Baez DO Unavailable Edith Aleman RN Unavailable Unavailable Reason for Visit * Reason Comments Med Refill Encounter Details Date Type Department Care Team (Late st Contact Info) Description 08/14/2022 Refill [facility] [place] [address] [facility] [place] [phone] Elisabet Raya MD [address] [place] [address] Social History Tobacco Use Types [...] first t janine in the morning (EYE-HAND OUTSIDE CUTTER) to steady your nerves or to get [...] Description 04/22/2025 9:00 AM EST Ancillary Procedure [facility] [place] [address] [facility] [place] [address] documented as of this encounter Visit Diagnoses [...] documented as of this encounter Care Teams It Manager Relationship Specialty Start Date End Date Herberth Perez MD [address] [place] [address] [place] [address] PCP - General 07/17/20 Katrin Oviedo RN [facility] [address] [place] [address] VAD Coordinator Cardiology 08/06/20 10/21/24 Zaida Lafleur APRN [address] [place] [address] Nurse Practitioner Advanced Heart Failure and Transplant Cardiology 08/06/20 06/11/23 Gracia Petersen APRN [address] [place] [address] Nurse Practitioner Internal Medicine 08/06/20 Yunior Solorzano MD [address] [place] [address] Consulting Physician Gastroenterology 07/18/22 Ross Baez, DO [address] [address] Surgeon Cardiothoracic Surgery 07/18/22 Edith Aleman, JUKE BOX MECHANIC None VAD Coordinator 10/14/24 documented as of this encounter
--- OUTSIDE RECORDS SUMMARY | 2025-02-24 14:56 | XMS_ITS | Encounter Summary ---
Author Organization [employer] ([place], [place], [place], [place], [place]) Address [address] [place] [address] Care Team Providers Care Linen Checker Name Role Phone Unavailable Primary Care Provider Unavailabl e Encounter Details Date Type Department Care Team (Late st Contact Info) Description 05/03/2019 Transcribed Document [facility] [place] [address] [place] [address] ProviderMg MD [facility] [place], [place] [address] Social History Tobacco Use Types Packs/Day Years Used Date Smoking Tobacco: Never Assessed Sex and Gender Information Value Date Recorded Sex Assigned at Not on file Legal Sex Male 1:09 PM CDT Gender Identity Not on file Sexual Orientation Not on file documented as of this encounter Miscellaneous Notes * Cerner Conversion Note - Historical ProviderMD - 05/03/2019 10:49 AM CERAMICS MACHINE OPERATOR Therapy Screen, PT Entered On: 05/03/2019 10:50 [...] ALYX BOSTON, PT - 05/03/2019 10:49 EST Electronically signed by Otis Mejia Conversion Environmental Engineering Assistant Cerner at 06/19/2022 11:03 PM CDT documented in this encounter Plan of Treatment Not on file documented as of this encounter Visit Diagnoses Not on filedocumented in this encounter
--- OUTSIDE RECORDS SUMMARY | 2025-02-24 14:56 | XMS_ITS | Encounter Summary ---
Author Organization [employer] ([place], [place], [place], [place], [place]) Address [address] [place] [address] Care Team Providers Care Junior Project Manager Name Role Phone Unavailable Primary Care Provider Unavailabl e Encounter Details Date Type Department Care Team (Late st Contact Info) Description 05/03/2019 Transcribed Document [facility] [place] Family Medicine [address] [place] [address] ProviderMg [place] [facility] [address] Social History Tobacco Use Types Packs/Day Years Used Date Smoking Tobacco: Never Assessed Sex and Gender Information Value Date Recorded Sex Assigned at Not on file Legal Sex Male 1:09 PM CDT Gender Identity Not on file Sexual Orientation Not on file documented as of this encounter Miscellaneous Notes * Cerner Conversion Note - Historical ProviderMD - 05/03/2019 9:34 AM MOBILE HEALTH VEHICLE OPERATOR Spiritual Care Short Form Entered On: [...]
--- OUTSIDE RECORDS SUMMARY | 2025-02-24 14:56 | XMS_ITS | Encounter Summary ---
Author Organization [employer] ([place], [place], [place], [place], [place]) Address [address] [place] [address] Care Team Providers Care Sheet Rock Finisher Name Role Phone Unavailable Primary Care Provider Unavailabl e Encounter Details Date Type Department Care Team (Late st Contact Info) Description 05/03/2019 Transcribed Document [facility] [place] Family Medicine [address] [place] [address] ProviderMg [place] [address] Social History Tobacco Use Types Packs/Day Years Used Date Smoking Tobacco: Never Assessed Sex and Gender Information Value Date Recorded Sex Assigned at Not on file Legal Sex Male 1:09 PM CDT Gender Identity Not on file Sexual Orientation Not on file documented as of this encounter Miscellaneous Notes * Cerner Conversion Note - Historical ProviderMD - 05/03/2019 5:00 AM CHEMICAL MANAGER Height and Weight, Routine Entered On: 05/03/2019 6:56 EST Performed On: 05/03/2019 5:00 EST by Carlos Ojeda RN Height and Weight, Routine Routine Weight Source : Bed scale Routine Weight Entry Format : Metric Routine Weight, Kilograms : 104.5 kg(Converted to: 230 lb 6 oz) Routine Weight Calculation : 104.5 kg Height Source : Stated Height Entry Format : Martin Height, Feet : 6 ft Height, Inches : 0 Inch Clinical Height : 182.88 cm Body Surface Area (BSA), Routine : 2.26 m2 Body Mass Index (BMI), Routine : 31.25 kg/m2 Carlos Ojeda RN - 05/03/2019 6:55 EST Electronically signed by Jackie [facility] Conversion Tandem Mill Operator Cerner at 06/19/2022 11:12 PM CDT documented in this encounter Plan of Treatment Not on file documented as of this encounter Visit Diagnoses Not on filedocumented in this encounter
--- OUTSIDE RECORDS SUMMARY | 2025-02-24 14:56 | XMS_ITS | Encounter Summary ---
Author Organization [employer] ([place], [place], [place], [place], [place]) Address [address] [place] [address] Care Team Providers Care Sheet Layer Name Role Phone Unavailable Primary Care Provider Unavailabl e Encounter Details Date Type Department Care Team (Late st Contact Info) Description 05/03/2019 Transcribed Document [facility] [place] [facility] [place] [address] ProviderMg MD [facility] [place] [address] Social History Tobacco [...] - Historical ProviderMD - 05/03/2019 5:00 AM SHIP'S COOK Chart Check - Review Order Profile Entered On: 05/03/2019 4:03 EST Performed On: 05/03/2019 5:00 EST by Carlos Ojeda RN Chart Check Powerplans Initiated/Discontinued as Appropriate : Yes All Active Orders Reviewed : Yes Carlos Ojeda RN - 05/03/2019 4:03 EST Electronically signed by Morales Mejia Conversion Cardiovascular Operating Room Nurse Cerner at 06/19/2022 11:11 PM CDT documented in this encounter Plan of Treatment Not on file documented as of this encounter Visit Diagnoses Not on filedocumented in this encounter
--- OUTSIDE RECORDS SUMMARY | 2025-02-24 14:56 | XMS_ITS | Encounter Summary ---
Author Organization [employer] ([place], [place], [place], [place], [place]) Address [address] [place] [address] Care Team Providers Care Rail Car Repair Carman Name Role Phone Unavailable Primary Care Provider Unavailabl e Encounter Details Date Type Department Care Team (Late st Contact Info) Description 05/06/2019 Transcribed Document [facility] [place] Family Medicine [facility] [place] [address] ProviderMg MD [facility] [place] [address] Social History Tobacco Use Types Packs/Day Years Used Date Smoking Tobacco: Never Assessed Sex and Gender Information Value Date Recorded Sex Assigned at Not on file Legal Sex Male 1:09 PM CDT Gender Identity Not on file Sexual Orientation Not on file documented as of this encounter Miscellaneous Notes * Cerner Conversion Note - Mg ProviderMD - 05/06/2019 10:25 AM COMMERCIAL SALES DIRECTOR Spiritual Care Short Form Entered On: 05/06/2019 11:48 EST Performed On: 05/06/2019 10:25 EST by ANIKA MANRIQUEZ Chaplain-Non Cert General Information, Spiritual Care Spiritual Care Referred by : Interior Painter initiated Reason for Visit : Follow Up [...]
--- OUTSIDE RECORDS SUMMARY | 2025-02-24 14:56 | XMS_ITS | Encounter Summary ---
Author Organization [employer] ([place], [place], [place], [place], [place]) Address [address] [place] [address] Care Team Providers Care Bottle House Pumper Name Role Phone Unavailable Primary Care Provider Unavailabl e Encounter Details Date Type Department Care Team (Late st Contact Info) Description 05/06/2019 Transcribed Document [facility] [place] Family Medicine [facility] [place] [address] ProviderMg MD [facility] [address] Social History Tobacco Use Types Packs/Day Years Used Date Smoking Tobacco: Never Assessed Sex and Gender Information Value Date Recorded Sex Assigned at Not on file Legal Sex Male 1:09 PM CDT Gender Identity Not on file Sexual Orientation Not on file documented as of this encounter Miscellaneous Notes * Cerner Conversion Note - Mg ProviderMD - 05/06/2019 10:56 AM IT PROGRAM AUDITOR On Going Discharge Planning Entered On: 05/06/2019 11:03 EST Performed On: 05/06/2019 10:56 EST by TANVIR THAYER Rn-Commissioner Public WorksSupervisor Drying And Softening Progress Note Discharge Arrangements : Patient Post-Acute Information Patient Name: JOSE PEARSON Gender: Male : [birth year] Age: 48 Years No Post-Acute Placement(s) Listed No Post-Acute Service(s) Listed No Curaspan Referral(s) Listed Is the Patient Meeting Medical Necessity : Yes Did you Attend Multidisciplinary Rounds? : Yes TANVIR THAYER Rn-Commissioner Public Works - 05/06/2019 10:56 EST Narrative Progress Note Narrative Progress Note : Per RN in Multidisciplinary rounds patient is NPO for scheduled Cardiomems today. Having some nausea after Fe Infusions requested the infusion be held until after procedure so he can eat. CM will follow. TANVIR THAYER Rn-Commissioner Public Works - 05/06/2019 10:56 EST documented in this encounter Plan of Treatment Not on file documented as of this encounter Visit Diagnoses Not on filedocumented in this encounter
--- OUTSIDE RECORDS SUMMARY | 2025-02-24 14:56 | XMS_ITS | Encounter Summary ---
Author Organization [employer] ([place], [place], [place], [place], [place]) Address [address] [place] [address] Care Team Providers Care Fruit Buyer Name Role Phone Unavailable Primary Care Provider Unavailabl e Encounter Details Date Type Department Care Team (Late st Contact Info) Description 05/06/2019 Transcribed Document [facility] [place] Family Medicine [facility] [place] [address] ProviderMg MD [facility] [place] [address] Social History Tobacco Use Types Packs/Day Years Used Date Smoking Tobacco: Never Assessed Sex and Gender Information Value Date Recorded Sex Assigned at Not on file Legal Sex Male 1:09 PM CDT Gender Identity Not on file Sexual Orientation Not on file documented as of this encounter Miscellaneous Notes * Cerner Conversion Note - Historical ProviderMD - 05/06/2019 5:00 AM COVERSTITCH MACHINE OPERATOR Height and Weight, Routine Entered On: 05/07/2019 7:31 EST Performed On: 05/06/2019 5:00 EST by Bessie Lugo [facility] Height and Weight, Routine Routine Weight Source : Bed scale Routine Weight Entry Format : Marydel Routine Weight, Pounds : 233 lb Routine Weight, Ounces : 1 oz Routine Weight Calculation : 105.94 kg Height Source : Stated Height Entry Format : Marydel Height, Feet : 6 ft Height, Inches : 0 Inch Clinical Height : 182.88 cm Body Surface Area (BSA), Routine : 2.28 m2 Body Mass Index (BMI), Routine : 31.68 kg/m2 Bessie Lugo [facility] - 05/07/2019 7:30 EST documented in this encounter Plan of Treatment Not on file documented as of this encounter Visit Diagnoses Not on filedocumented in this encounter
--- OUTSIDE RECORDS SUMMARY | 2025-02-24 14:56 | XMS_ITS | Encounter Summary ---
Author Organization [email or web address] ([place], [place], [place], [place], [place]) Address [address] [place] [address] Care Team Providers Care Supervisor Title Name Role Phone Unavailable Primary Care Provider Unavailabl e Encounter Details Date Type Department Care Team (Late st Contact Info) Description 05/03/2019 Transcribed Document [facility] Family Medicine [facility] [place] [address] ProviderMg MD [facility] [place] [id number] Social History Tobacco Use Types Packs/Day Years Used Date Smoking Tobacco: Never Assessed Sex and Gender Information Value Date Recorded Sex Assigned at Not on file Legal Sex Male 1:09 PM CDT Gender Identity Not on file Sexual Orientation Not on file documented as of this encounter Miscellaneous Notes * Cerner Conversion Note - Mg Ritchie MD - 05/03/2019 9:58 AM REFRACTIVE SURGEON Patient: JOSE PEARSON Age: 48 years Sex: [...] Gastrointestinal: Normal bowel sounds. Integumentary: Warm, Dry, [place]. Results Review General results Today's results 05/03/2019 [...] care. Electronically signed by Morales Mejia Conversion Power And Recovery Superintendent Cerner at 06/19/2022 11:01 PM CDT documented in this encounter Plan of Treatment Not on file documented as of this encounter Visit Diagnoses Not on filedocumented in this encounter
--- OUTSIDE RECORDS SUMMARY | 2025-02-24 14:56 | XMS_ITS | Encounter Summary ---
Author Organization [employer] ([place], [place], [place], [place], [place]) Address [address] [place] [address] Care Team Providers Care Spinner Frame Name Role Phone Unavailable Primary Care Provider Unavailabl e Encounter Details Date Type Department Care Team (Late st Contact Info) Description 05/07/2019 Transcribed Document [facility] [place] Family Medicine [facility] [place] [address] ProviderMg MD [facility] [place] [address] Social History Tobacco Use Types Packs/Day Years Used Date Smoking Tobacco: Never Assessed Sex and Gender Information Value Date Recorded Sex Assigned at Not on file Legal Sex Male 1:09 PM CDT Gender Identity Not on file Sexual Orientation Not on file documented as of this encounter Miscellaneous Notes * Cerner Conversion Note - Historical ProviderMD - 05/07/2019 5:00 AM LAY OUT HELPER Chart Check - Review Order Profile Entered On: 05/07/2019 8:35 EST Performed On: 05/07/2019 5:00 EST by Reyna Nicolas RN Chart Check All Active Orders Reviewed : Yes Reyna Nicolas RN - 05/07/2019 8:35 EST Electronically signed by Jackie [facility] Conversion Developer Support Engineer Heroner at 06/19/2022 10:53 PM CDT documented in this encounter Plan of Treatment Not on file documented as of this encounter Visit Diagnoses Not on filedocumented in this encounter
--- OUTSIDE RECORDS SUMMARY | 2025-02-24 14:56 | XMS_ITS | Encounter Summary ---
Author Organization [employer] ([place], [place], [place], [place], [place]) Address [address] [place] [address] Care Team Providers Care Rn Clinical Name Role Phone Unavailable Primary Care Provider Unavailabl e Encounter Details Date Type Department Care Team (Late st Contact Info) Description 05/06/2019 Transcribed Document [facility] [place] Family Medicine [address] [place] [address] ProviderMg MD [facility] [place] [address] Social History Tobacco Use Types Packs/Day Years Used Date Smoking Tobacco: Never Assessed Sex and Gender Information Value Date Recorded Sex Assigned at Not on file Legal Sex Male 1:09 PM CDT Gender Identity Not on file Sexual Orientation Not on file documented as of this encounter Miscellaneous Notes * Cerner Conversion Note - Mg ProviderMD - 05/06/2019 9:45 AM CONTROLLED AREA CHECKER Spiritual Care Short Form Entered On: 05/06/2019 [...]
--- OUTSIDE RECORDS SUMMARY | 2025-02-24 14:56 | XMS_ITS | Encounter Summary ---
Author Organization [employer] ([place], [place], [place], [place], [place]) Address [address] [place] [address] Care Team Providers Care Invas Tech Name Role Phone Unavailable Primary Care Provider Unavailabl e Encounter Details Date Type Department Care Team (Late st Contact Info) Description 05/06/2019 Transcribed Document [facility] [place] [facility] [place] [address] ProviderMg MD [facility] [place] [address] Social History Tobacco Use Types Packs/Day Years Used Date Smoking Tobacco: Never Assessed Sex and Gender Information Value Date Recorded Sex Assigned at Not on file Legal Sex Male 1:09 PM CDT Gender Identity Not on file Sexual Orientation Not on file documented as of this encounter Miscellaneous Notes * Cerner Conversion Note - Mg ProviderMD - 05/06/2019 3:00 AM SHEET METAL ENGINEER Nutrition Assessment Entered On: 05/06/2019 8:41 EST [...] 05/06/2019 14:52 EST Electronically signed by Jackie, [facility] Conversion Paralegal Internship Cerner at 06/19/2022 10:48 PM CDT documented in this encounter Plan of Treatment Not on file documented as of this encounter Visit Diagnoses Not on filedocumented in this encounter
--- OUTSIDE RECORDS SUMMARY | 2025-02-24 14:56 | XMS_ITS | Encounter Summary ---
Author Organization [facility] Address [address] [place] [address] Care Team Providers Care Electronic Bench Technician Name Role Phone Herberth Perez MD Primary Care Provider [phone] Katrin Oviedo RN Unavailable [phone] Zaida Lafleur REED OR WIND INSTRUMENT REPAIRER Unavailable Gracia Petersen REED OR WIND INSTRUMENT REPAIRER Unavailable [phone] Yunior Solorzano MD Unavailable [phone] Ross Baez DO Unavailable [phone] Edith Aleman RN Unavailable Unavailable Reason for Visit * Reason Comments Med Refill Encounter Details Date Type Department Care Team (Late st Contact Info) Description 06/23/2022 Refill [facility] [address] [place] [id number] Mayra Arroyo MD [address] [facility] 7th [facility] [address] [place] [address] Social History Tobacco Use Types Packs/Day Years [...] drink first t janine in the morning (EYE-HOUSING OFFICER) to steady your nerves or to [...] Description 04/22/2025 9:00 AM EST Ancillary Procedure [facility] [place] [address] [place] [address] documented as of this encounter Visit Diagnoses [...] documented as of this encounter Care Teams Electronic Bench Technician Relationship Specialty Start Date End Date Herberth Perez MD [address] [place] [address] [place] [address] PCP - General 07/17/20 Katrin Oviedo, [facility] VAD PROGRAM [address] [place] [address] VAD Coordinator Cardiology 08/06/20 10/21/24 Zaida Lafleur APRN [address] [place] [address] Nurse Practitioner Advanced Heart Failure and Transplant Cardiology 08/06/20 06/11/23 Gracia Petersen, REED OR WIND INSTRUMENT REPAIRER [address] [place] [address] Nurse Practitioner Internal Medicine 08/06/20 Yunior Solorzano MD [address] [address] Consulting Physician Gastroenterology 07/18/22 Ross Baez DO [address] [address] Surgeon Cardiothoracic Surgery 07/18/22 Edith Aleman, WORKERS COMPENSATION LEGAL SECRETARY None VAD Coordinator 10/14/24 documented as of this encounter
--- OUTSIDE RECORDS SUMMARY | 2025-02-24 14:56 | XMS_ITS | Encounter Summary ---
Author Organization [employer] ([place], [place], [place], [place], [place]) Address [address] [place] [address] Care Team Providers Care Cissp Name Role Phone Unavailable Primary Care Provider Unavailabl e Encounter Details Date Type Department Care Team (Late st Contact Info) Description 05/03/2019 Transcribed Document [facility] [place] Family Medicine [facility] [place] [address] ProviderMg MD [facility] [place] [address] Social History Tobacco Use Types Packs/Day Years Used Date Smoking Tobacco: Never Assessed Sex and Gender Information Value Date Recorded Sex Assigned at Not on file Legal Sex Male 1:09 PM CDT Gender Identity Not on file Sexual Orientation Not on file documented as of this encounter Miscellaneous Notes * Cerner Conversion Note - Historical ProviderMD - 05/03/2019 8:[address] [facility] OT Charges Entered On: 05/03/2019 8:59 EST Performed On: 05/03/2019 8:59 EST by NAHUM CORNELIUS OTR/Kaushal Hager OT Charges Screen For Statistics Tutor : 1 NAHUM CORNELIUS OTR/Kaushal - 05/03/2019 8:59 EST documented in this encounter Plan of Treatment Not on file documented as of this encounter Visit Diagnoses Not on filedocumented in this encounter
--- OUTSIDE RECORDS SUMMARY | 2025-02-24 14:56 | XMS_ITS | Encounter Summary ---
Author Organization [employer] ([place], [place], [place], [place], [place]) Address [address] [place] [address] Care Team Providers Care Promotion Writer Name Role Phone Unavailable Primary Care Provider Unavailabl e Encounter Details Date Type Department Care Team (Late st Contact Info) Description 05/06/2019 Transcribed Document [facility] [place] Family Medicine [facility] [place] [address] ProviderMg MD [facility] [place], [place] [address] Social History Tobacco Use Types Packs/Day Years Used Date Smoking Tobacco: Never Assessed Sex and Gender Information Value Date Recorded Sex Assigned at Not on file Legal Sex Male 1:09 PM CDT Gender Identity Not on file Sexual Orientation Not on file documented as of this encounter Miscellaneous Notes * Cerner Conversion Note - Historical ProviderMD - 05/06/2019 2:00 AM TRANSFER STATION ATTENDANT Perioperative Tech Details Entered On: 05/06/2019 6:56 EST Performed [...]
--- OUTSIDE RECORDS SUMMARY | 2025-02-24 14:56 | XMS_ITS | Encounter Summary ---
Author Organization [employer] ([place], [place], [place], [place], [place]) Address [address] [place] [address] Care Team Providers Care Kitchen Help Handyman Name Role Phone Unavailable Primary Care Provider Unavailabl e Encounter Details Date Type Department Care Team (Late st Contact Info) Description 05/07/2019 Transcribed Document [facility] [place] Family Medicine [facility] [place] [address] ProviderMg MD [facility] [place] [address] Social History Tobacco Use Types Packs/Day Years Used Date Smoking Tobacco: Never Assessed Sex and Gender Information Value Date Recorded Sex Assigned at Not on file Legal Sex Male 1:09 PM CDT Gender Identity Not on file Sexual Orientation Not on file documented as of this encounter Miscellaneous Notes * Cerner Conversion Note - Mg ProviderMD - 05/07/2019 2:55 PM 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 On Going Discharge Planning Entered On: 05/07/2019 15:01 EST Performed On: 05/07/2019 14:55 EST by Alyse Townsend Social Worker-Cnc Maintenance Mechanic Care Management Progress Note Discharge Arrangements : Patient Post-Acute Information Patient Name: JOSE PEARSON Gender: Male : [birth year] Age: 48 Years No Post-Acute Placement(s) Listed No Post-Acute Service(s) Listed No Curaspan Referral(s) Listed Alyse Townsend Social Worker-Cnc Maintenance Mechanic - 05/07/2019 14:55 EST Narrative Progress Note Narrative Progress Note : 05/06 Received order to make referral to [facility] outpatient cardiac transplant program. Contacted [facility] appointment telephone number [phone]. They report the person who typically takes the referrals is unavailable and they will have her contact CM back. CM contact information was provided. They report the referral/foreign exchange student coordinator is Kailey PH: [phone]. Historical Progress Note : Per RN in Multidisciplinary rounds patient is NPO for scheduled Cardiomems today. Having some nausea after Fe Infusions requested the infusion be held until after procedure so he can eat. CM will follow. TANVIR THAYER Rn-News Internship - 05/06/19 11:03:45 Alyse Townsend, Ship Laborer-Cnc Maintenance Mechanic - 05/07/2019 14:55 EST Electronically signed by Morales Mejia Conversion Financial Retirement Plan Specialist Cerner at 06/19/2022 10:50 PM CDT documented in this encounter Plan of Treatment Not on file documented as of this encounter Visit Diagnoses Not on filedocumented in this encounter
--- OUTSIDE RECORDS SUMMARY | 2025-02-24 14:56 | XMS_ITS | Encounter Summary ---
Author Organization [employer] ([place], [place], [place], [place], [place]) Address [address] [place] [address] Care Team Providers Care Merchandise Flow Associate Name Role Phone Unavailable Primary Care Provider Unavailabl e Encounter Details Date Type Department Care Team (Late st Contact Info) Description 05/07/2019 Transcribed Document [facility] [place] Family Medicine [address] [place] [address] ProviderMg MD [facility] [place] [address] Social History Tobacco Use Types Packs/Day Years Used Date Smoking Tobacco: Never Assessed Sex and Gender Information Value Date Recorded Sex Assigned at Not on file Legal Sex Male 1:09 PM CDT Gender Identity Not on file Sexual Orientation Not on file documented as of this encounter Miscellaneous Notes * Cerner Conversion Note - Historical ProviderMD - 05/07/2019 9:57 AM INSPECTOR AND CLIPPER Event Note Entered On: 05/07/2019 10:05 EST Performed On: 05/07/2019 9:57 EST by Gracia Carl, Burial Vault Maker-Health Unit Coord Event Note Event Date/Time : 05/07/2019 9:57 EST Event Details : Nursing assessment additional narrative Description of Event : Pt's QTC is 618 this AM prior to adminstering his tikosyn dose. Notified MALU Hernandez. Orders received to adminster half the ordered dose of 250mcg. Gracia Carl, Burial Vault Maker-Health Unit Coord - 05/07/2019 10:03 EST documented in this encounter Plan of Treatment Not on file documented as of this encounter Visit Diagnoses Not on filedocumented in this encounter
--- OUTSIDE RECORDS SUMMARY | 2025-02-24 14:56 | XMS_ITS | Encounter Summary ---
Author Organization [email or web address] ([place], [place], [place], [place], [place]) Address [address] [place] [address] Care Team Providers Care Administrative Hearing Officer Name Role Phone Unavailable Primary Care Provider Unavailabl e Encounter Details Date Type Department Care Team (Late st Contact Info) Description 05/06/2019 Transcribed Document [facility] [place] Family Medicine [address] [place] [address] ProviderMg MD [place] [address] Social History Tobacco Use Types Packs/Day Years Used Date Smoking Tobacco: Never Assessed Sex and Gender Information Value Date Recorded Sex Assigned at Not on file Legal Sex Male 1:09 PM CDT Gender Identity Not on file Sexual Orientation Not on file documented as of this encounter Miscellaneous Notes * [employer] Conversion Note - Historical ProviderMD - 05/06/2019 5:00 PM [employer] LIBRARIAN Chart Check - Review Order Profile Entered On: 05/06/2019 19:45 EST Performed On: 05/06/2019 17:00 EST by Gracia Carl, Channel SpecialistHealth Unit Coord Chart Check Powerplans Initiated/Discontinued as Appropriate : Yes All Active Orders Reviewed : Yes Gracia Carl Channel Specialist-Health Unit Coord - 05/06/2019 19:45 EST documented in this encounter Plan of Treatment Not on file documented as of this encounter Visit Diagnoses Not on filedocumented in this encounter
--- OUTSIDE RECORDS SUMMARY | 2025-02-24 14:56 | XMS_ITS | Encounter Summary ---
Author Organization [employer] ([place], [place], [place], [place], [place]) Address [address] [place] [address] Care Team Providers Care Digital Production Operator Name Role Phone Unavailable Primary Care Provider Unavailabl e Encounter Details Date Type Department Care Team (Late st Contact Info) Description 05/06/2019 Transcribed Document [facility] [place] Medicine [facility] [place] [address] ProviderMg MD [facility] [place] [address] Social History Tobacco Use Types Packs/Day Years Used Date Smoking Tobacco: Never Assessed Sex and Gender Information Value Date Recorded Sex Assigned at Not on file Legal Sex Male 1:09 PM CDT Gender Identity Not on file Sexual Orientation Not on file documented as of this encounter Miscellaneous Notes * Cerner Conversion Note - Mg ProviderMD - 05/06/2019 1:43 PM HYPERTRICHOLOGIST [facility] Authorization Entered On: 05/06/2019 13:44 EST Performed On: 05/06/2019 13:43 EST by CHARLA BARRAZA RN-Utilization Review Primary Insurance Authorization Authorization and Policy Numbers : Insurance 1 Health Plan: [facility] Policy Number: Authorization Number: Insurance Primary Name : [facility] Administators [id number] Authorization Status-Primary : Admit approved Authorization Number-Primary : [id number] Number of Days Authorized-Primary : 4 Day(s) Authorized Service Begin Date-Primary : 05/03/2019 EST Authorized Service End Date-Primary : 05/07/2019 EST Authorization Comments-Primary : Ruben approved per Katrin for 5 days total --- nrd 05/07 Historical Authorization Comments-Primary : Comment 1: Uploaded continuing stay clinicals (05/06/19) to [facility] via [employer]. (ARMANDO SHANNON RN-Utilization Review 05/06/2019 12:11) Comment 2: Per [facility], admit approved with auth #[id number] given from 05/03-05/05/19. Next review date 05/06/19. (ARMANDO SHANNON, RN-Utilization Review 05/06/2019 08:05) Comment 3: Uploaded clinicals to [facility] administrators via [employer]. Manually faxed [employer] form. (ARMANDO SHANNON, MARYCARMEN-Utilization Review 05/03/2019 13:31) CHARLA BARRAZA RN-Utilization Review - 05/06/2019 13:43 EST documented in this encounter Plan of Treatment Not on file documented as of this encounter Visit Diagnoses Not on filedocumented in this encounter
--- OUTSIDE RECORDS SUMMARY | 2025-02-24 14:56 | XMS_ITS | Clinical Summary ---
Author Organization [facility] Address [address] [place] [address] Care Team Providers Care Band And Cuff Cutter Name Role Phone Herberth Perez MD Primary Care Provider [phone] Gracia Petersen METAL AND PLASTIC HEATER Unavailable [phone] Yunior Solorzano MD Unavailable [phone] Ross Baez DO Unavailable [phone] Edith Aleman RN Unavailable Unavailable Allergies [...] night. Delta 9 gummies purchased in [place] Active Magnesium Chloride-Calciu m (Slow Magnesium/Calci um) [...] daily at 1,000 mL/hr over 60 minutes. 01982 mL 01/09/20 Active ipratropium (Atrovent) 0.02 % [...] Route Frequency Start Date End Date Status iron sucrose (Venofer) 200 mg in sodium [...] nonischemic dilated cardiomyopathy/congestive heart failure, diagnosis per clipper counters, Dr. Leydi Hobbs. Last Assessment & Plan: [...] on 06/06/19 Cardiac resynchronization th erapy defibrillator (SCADA TECHNICIAN-D) in place 08/10/2020 Overview (07/09/2024): ISABEL FOLLOWED BY MD LARA= LAST INTERROGATED 07/09/2024 [...] Dysarthria 09/14/2020 05/24/[address] lazcano of left ventricular assist device (LVAD) 09/01/2020 022 IA (myocardial infarction) 08/31/2020 1 03/31/2024 Benign hypertensive heart di sease with heart failure 08/25/2020 01/29/2025 Left ventricular assist device complication 08/25/2020 05/24/2021 Encounter for assessment of implantable cardioverter-defibrillator (ICD) 08/10/2020 021 Chronic systolic heart failure 08/10/2020 01/05/2021 Subglottic stenosis 08/10/2020 05/03/19 Nonallergic vasomotor rhinitis 06/17/2020 05/24/2021 Spastic hemiparesis [...] Type Department Care Team Description 02/12/2025 Telephone [facility] [place] [address] [facility] [place] [address] Melisa Lara MD HCN - Patient Message 02/11/2025 Anticoagulation - Warfarin Visit [facility] [address] 1st [address] [place] [address] Edith Aleman, RN LVAD (left ventricular assist device) present (CMS/HCC) (Primary Dx); Anticoagulant long-term use 02/03/2025 Telephone [facility] [address] [facility]. [address] [address] Cierra Orellana MD HCN - Patient Message 02/03/2025 Refill [facility] [address] [facility] 1st Floor [address] [address] Edith Aleman, RN Low iron; Iron deficiency 02/03/2025 Anticoagulation - Warfarin Visit [facility] [address] [facility] 1st Floor [address] [address] Edith Aleman, RN LVAD (left ventricular assist device) present ([facility]) (Primary Dx); Anticoagulant long-term use 02/03/2025 Refill [facility] [address] [address] Edith Aleman, RN Low iron; Iron deficiency 01/29/2025 7:39 AM EST - 01/29/2025 11:59 PM EST Hospital Encounter Cardiac Imaging [address] [place] [address] Biventricular ICD (implantable cardioverter-defibrilla tor) in place Discharge Disposition: Home or Self Care 01/29/2025 Refill [facility] [address] [facility] 1st Floor [address] [address] Edith Aleman, RN Iron deficiency (Primary Dx) 01/29/2025 Refill [facility] [address] [facility] 1st Floor [address] [address] Edith Aleman, RN Low iron (Primary Dx); Iron deficiency 01/29/2025 Travel 01/28/2025 10:00 AM EST Ancillary Procedure [facility] [address] [facility] [address] LVAD (left ventricular assist device) present (CMS/HCC) (Primary Dx); [facility]CI current use of anticoagulant therapy; Ventricular tachycardia (CMS/HCC); PAF (paroxysmal atrial fibrillation); NICM (nonischemic cardiomyopathy) (CMS/HCC); HFrEF (heart failure with reduced ejection fraction); Cardiac resynchronization therapy defibrillator (SCADA TECHNICIAN-D) in place 01/28/2025 8:57 AM EST - 01/28/2025 11:59 PM [facility] Hospital Encounter Cardiac Imaging [address] [place] [address] LVAD (left ventricular assist device) present (CMS/HCC); [facility]CI current use of anticoagulant therapy Discharge Disposition: Home or Self Care 01/28/2025 Travel 01/28/2025 Anticoagulation - Warfarin Visit [facility] [address] 1st [address] [place] [address] Edith Aleman, RN LVAD (left ventricular assist device) present ([facility]) (Primary Dx); Anticoagulant long-term use 01/27/2025 Refill [facility] [address] 1st [address] [place] [address] Edith Aleman, RN 01/27/2025 Orders Only [facility] [address] [place] [address] Parish Dyer MD 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) (Primary Dx) 01/24/2025 Orders Only [facility] [address] 1st [address] [place] [address] Edith Aleman, RN 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) (Primary Dx) 01/20/2025 1:30 PM EST - 01/20/2025 11:59 PM EST Hospital Encounter Cardiac Imaging [address] [place] [address] ICD (implantable cardioverter-defibrilla tor) in place Discharge Disposition: Home or Self Care 01/20/2025 Travel 01/20/2025 Anticoagulation - Warfarin Visit [facility] [address] 1st Floor [place] [phone] Edith Aleman, RN LVAD (left ventricular assist device) present ([facility]) (Primary Dx); Anticoagulant long-term use 01/14/2025 Refill [facility] [address] 1[address] [address] Martine Taylor, RN 01/08/2025 Refill [facility] [address] Floor [address] [address] Edith Aleman, RN 01/07/2025 Telephone [facility] [address] [address] Melisa Lara MD 01/06/2025 12:34 PM EST - 01/06/2025 11:59 PM EST Hospital Encounter Cardiac Imaging [address] [place] [address] ICD (implantable cardioverter-defibrilla tor) in place Discharge Disposition: Home or Self Care 01/06/2025 Travel 01/06/2025 Anticoagulation - Warfarin Visit [facility] [address] 1[address] Floor [address] [address] Gracia Vizcarra, RN LVAD (left ventricular assist device) present ([facility]) (Primary Dx); Anticoagulant long-term use 12/30/2024 Telephone [facility] [address] [address] Melisa Lara MD Patient Aids requesting office notes 12/28/2024 Anticoagulation - Warfarin Visit [facility] [address] [facility] 1st Floor [address] [address] Gracia Vizcarra, RN LVAD (left ventricular assist device) present ([facility]) (Primary Dx); Anticoagulant long-term use 12/25/2024 Refill [facility] [address] [facility] 1st Floor [address] [address] Edith Aleman, RN 12/24/2024 Orders Only [facility] [address] [facility] 1st Floor [address] [address] Edith Aleman, RN 12/23/2024 12:44 PM EDT - 12/23/2024 11:59 PM EDT Hospital Encounter Cardiac Imaging [address] [place] [address] Biventricular ICD (implantable cardioverter-defibrilla tor) in place Discharge Disposition: Home or Self Care 12/23/2024 Travel 12/23/2024 Anticoagulation - Warfarin Visit [address] [address] Edith Aleman, RN LVAD (left ventricular assist device) present ([facility]) (Primary Dx); Anticoagulant long-term use 12/20/2024 10:46 AM EDT - 12/20/2024 11:59 PM EDT Hospital Encounter Cardiac Imaging [address] [place] [address] Biventricular ICD (implantable cardioverter-defibrilla tor) in place Discharge Disposition: Home or Self Care 12/20/2024 Refill [facility] [address] 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 [place] [address] Real Mclaughlin MD HCN - Patient Message 12/12/2024 Anticoagulation - Warfarin Visit [facility] [address] [facility] 1st Floor [address] [place] [address] Edith Aleman, RN LVAD (left ventricular assist device) present ([facility]) (Primary Dx); Anticoagulant long-term use 12/01/2024 Anticoagulation - Warfarin Visit [facility] [address] [facility] 1st Floor [address] [address] Martine Taylor, RN LVAD (left ventricular assist device) present ([facility]) (Primary Dx); Anticoagulant long-term use from Last 3 Months Immunizations Immunization Administration Dates Next Due Hep A, Adult 11/07/2018,03/21/2018 Influenza, injectable, quadrivalent 11/01/2021 Influenza, injectable, quadr ivalent, preservative free 02/13/2023,12/04/2019 Influenza, seasonal, injectable 02/05/2021,11/27,11/14/2016 Influenza, seasonal, injecta ble, preservative free 12/13/2023 [facility] COVID-19 Vac cine (Purple Cap) 12+ 06/02/2020,05/08/2020 [...] time in the past 12 m [facility], were you homeless or living in [...] first t janine in the morning (EYE-HAND II TUBE BENDER) to steady your nerves or to get rid of a hangover? 0 09/19/2021 CAGE Questionnaire Score 0 022 Utilities Answer Date Recorded In the past 12 months has th Xyo, gas, oil, or water company threatened to [...] Description 04/22/2025 9:00 AM EST Ancillary Procedure [facility] [place] [address] [place] [id number] Health Maintenance Due Date Last Done Comments [facility]-Infant/Child/Adol SDOH Screenings 1969 [facility]-Hepatitis B Vaccines (1 of 3 - 19+ 3-dose series) 1988 [facility]-Zoster Vaccines (1 of 2) 1988 CT Colonography 2014 Colonoscopy 2014 FIT-DNA 2014 FIT 2014 FOBT 2014 Sigmoidoscopy 2014 [facility]-Colorectal Cancer Screening 2014 [facility]- SDOH Screenings 10/06/2024 [facility]-Adult SDOH Screenings 10/06/2024 04/08/2024 [id number] Vaccine ( season) 2024 02/08/2021, 06/02/2020, 05/08/2020 [...] to attend a wedding in November in [place] LVAD Air Director Goal General On track( 024 11:53 AM EDT) Yes Katrin Oviedo RN Note: - 07/04/23: Patient states he wants to meet his grandchild when they are born in November Medical Devices Implanted Type Area Coal Passer Device Identifier Shelf Expiration Date Model / Serial / Lot Lvad-06/06/2019 Implanted:04/2019 by Nathaniel Garcia MD (Quantity not on file) LVAD Left: Heart Zavaleta [employer] / [id number] / [id number] Quartet [id number] Lead [id number] QUARTET / [id number] / [id number] Tendril Sts [id number] Lead 2088TC TENDRIL STS / [id number] / [id number] Endotak Criders G [id number] Lead 0185 ENDOTAK RELIANCE G / [id number] / [id number] Quadra Assura Mp [id number] Implanted:07/2017 (Quantity not on file) Pacemaker 3369-40C QUADRA ASSURA MP / [id number] / Envelope Tyrx Icd Large - [id number] Implanted:Qty: 1 on 12/07/2023 by Melisa Lara MD at [facility] [employer] [id number] 08/26/2024 [id number] / / [id number] Stent Graft Iliac [id number] m Viabahnbx - [id number] Implanted:Qty: 1 on 04/11/2024 by Dung Nunez MD at [place] [id number] 07/31/2025 [id number] / [id number] / [id number] Stent Graft Iliac [id number] m Viabahnbx - [id number] Implanted:Qty: 1 on 04/11/2024 by Dung Nunez MD at [place] [id number] 04/17/2026 [id number] / [id number] / [id number] Stent Graft Iliac [id number] m Viabahnbx - [id number] Implanted:Qty: 1 on 04/11/2024 by Dung Nunez MD at [place] [id number] 04/15/2026 [id number] / [id number] / [id number] Stent Graft Iliac [id number] m Viabahnbx - [id number] Implanted:Qty: 1 on 04/11/2024 by Dung Nunez MD at [place] [id number] 06/10/2026 [id number] / [id number] / [id number] Stent Graft Iliac [id number] m Viabahnbx - [id number] Implanted:Qty: 1 on 04/11/2024 by Dung Nunez MD at [place] [id number] 07/28/2026 [id number] / [id number] / [id number] Procedures Procedure Name Priority Date/Time Associated Diagnosis Comments EXTERNAL PROTHROMBIN TIME (PT)/INR Routine 02/10/2025 EXTERNAL PROTHROMBIN TIME (PT)/INR Routine 02/02/2025 CARDIAC DEVICE CHECK CHECK - REMOTE ALERT Routine 01/29/2025 7:40 AM EST Biventricular ICD (implantable cardioverter-defibri llator) in place ECHO, ADULT TRANSTHORACIC COMPLETE Routine 01/28/2025 9:38 AM EST LVAD (left ventricular assist device) present ([facility]) termite helper current use of anticoagulant therapy IRON & TOTAL IRON BINDING CAPACITY, PLASMA (INCLUDES TRANSFERRIN) Add-On 01/28/2025 9:02 AM EST termite helper current use of anticoagulant therapy PROTHROMBIN TIME(PT) / INR Routine 01/28/2025 9:02 AM EST LVAD (left ventricular assist device) present (CMS/HCC) termite helper current use of anticoagulant therapy N-TERMINAL PROBNP, PLASMA Routine 01/28/2025 9:02 AM EST LVAD (left ventricular assist device) present (CMS/HCC) termite helper current use of anticoagulant therapy LACTATE DEHYDROGENASE, PLASMA Routine 01/28/2025 9:02 AM EST LVAD (left ventricular assist device) present (CMS/HCC) [facility] current use of anticoagulant therapy CBC W/O DIFFERENTIAL Routine 01/28/2025 9:02 AM EST LVAD (left ventricular assist device) present (CMS/HCC) termite helper current use of anticoagulant therapy COMPREHENSIVE METABOLIC PANEL, PLASMA Routine 01/28/2025 9:02 AM EST LVAD (left ventricular assist device) present (CMS/HCC) termite helper current use of anticoagulant therapy EXTERNAL PROTHROMBIN TIME (PT)/INR Routine 01/27/2025 ANTIMICROBIAL SUSCEPTIBILITY - ISELA, INDIVIDUAL (SO) Routine 01/21/2025 11:32 AM EST LVAD (left ventricular assist device) present (CMS/HCC) [facility] current use of anticoagulant therapy 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 Anatomical Region Laterality Modality Other Narrative 01/29/2025 9:29 AM EST [facility] - Remote CIED alert (non-scheduled) Name: Jose Pearson Date: 01/29/2025 : 1970 Age: 54 y.o. Indication for alert: VT event, treated with ATPx1 Device: Coal Passer: Zavaleta SCADA TECHNICIAN-ICD Summary: As above, occurring yesterday at 1:43pm. [...] ILENE ISCV TR Max PG 23 mmHG LIENE ISCV RVSP 31 mmHg ILENE ISCV RAP [...] there is no significant interval change noted. Marti Cherry METAL AND PLASTIC HEATER CV ECHO PROCEDURES Final Re sult * (ABNORMAL) N-Terminal Probnp, Plasma (01/28/2025 9:02 AM EST) N-Terminal, PROBNP, Plasma 3,594(H) 0 - 899 pg/mL 01/28/2025 11:17 AM EST [facility] Blood Venous blood specimen / Unknown Venipuncture / Unknown 01/28/2025 9:02 AM EST 01/28/2025 10:44 AM EST us Marti Cherry APRN LAB BLOOD ORDERABLES Final Result [facility] [address] [place] [address] * (ABNORMAL) Iron & Total Iron Binding Capacity, Plasma (Includes Transferrin) (01/28/2025 9:02 AM EST) Iron, Plasma 11(L) 50 - 170 ug/dL 01/28/2025 12:04 PM EST [facility] Transferrin, Plasma 305 200 - 360 mg/dL 01/28/2025 12:04 PM EST [facility] Total Iron Binding Capacity, Plasma 381 240 - 450 ug/mL 01/28/2025 12:04 PM EST [facility] Transferrin Saturation 3(L) 14 - 50 % 01/28/2025 12:04 PM EST [facility] Blood Venous blood specimen / Unknown Venipuncture / Unknown 01/28/2025 9:02 AM EST 01/28/2025 10:44 AM EST us Cierra Orellana MD LAB BLOOD ORDERABLES Final Result [facility] [address] [place] [address] * (ABNORMAL) Prothrombin Time/INR (01/28/2025 9:02 AM EST) Prothrombin Time 31.0(H) 12.0 - 14.3 sec LAB COAGULATION METHOD 01/28/2025 11:06 AM EST [facility] INR 3.0(H) 0.9 - 1.1 LAB COAGULATION METHOD 01/28/2025 11:06 AM EST [facility] Blood Venous blood specimen / Unknown Venipuncture / Unknown 01/28/2025 9:02 AM EST 01/28/2025 10:44 AM EST Narrative [facility] - 01/28/2025 11:06 AM EST OPTIMAL INR RANGES FOR PATIENT ON ORAL ANTICOAGULANT THERAPY Prevention of venous thromboembolism INR 2.0 to 3.0 In patients with heart disease: Atrial fibrillation INR 2.0 to 3.0 Valvular heart disease INR 2.0 to 3.0 Tissue heart valves INR 2.0 to 3.0 Mechanical prosthetic valves INR 2.5 to 3.5 Prevention of recurrent IA INR 2.5 to 3.5 Marti Cherry APRN LAB BLOOD ORDERABLES Final Result [facility] [address] [place] [address] * (ABNORMAL) CBC W/O Differential (01/28/2025 9:02 AM EST) WBC Count 7.34 3.70 - 10.30 10*3/uL LAB HEMATOLOGY METHOD 01/28/2025 11:23 AM EST [facility] RBC Count 4.57(L) 4.60 - 6.10 10*6/uL LAB HEMATOLOGY METHOD 01/28/2025 11:23 AM EST [facility] HGB 8.4(L) 13.7 - 17.5 g/dL LAB HEMATOLOGY METHOD 01/28/2025 11:23 AM EST [facility] HCT 29.1(L) 40.0 - 51.0 % LAB HEMATOLOGY METHOD 01/28/2025 11:23 AM EST [facility] Platelet Count 314 155 - 369 10*3/uL LAB HEMATOLOGY METHOD 01/28/2025 11:23 AM EST [facility] MCV 64(L) 79 - 98 fL LAB HEMATOLOGY METHOD 01/28/2025 11:23 AM EST [facility] MCH 18.4(L) 26.0 - 32.0 pg LAB HEMATOLOGY METHOD 01/28/2025 11:23 AM EST [facility] MCHC 28.9(L) 30.7 - 35.5 g/dL LAB HEMATOLOGY METHOD 01/28/2025 11:23 AM EST [facility] RDW 21.1(H) 11.5 - 14.5 % LAB HEMATOLOGY METHOD 01/28/2025 11:23 AM EST [facility] MPV 9.2 8.8 - 12.5 fL LAB HEMATOLOGY METHOD 01/28/2025 11:23 AM EST [facility] nRBC 0.0 <=0.0 per 100 WBCs LAB HEMATOLOGY METHOD 01/28/2025 11:23 AM EST [facility] Blood Venous blood specimen / Unknown Venipuncture / Unknown 01/28/2025 9:02 AM EST 01/28/2025 10:51 AM EST [facility] BLOOD ORDERABLES Final Result Performing Organization Address [facility]/ZIP Co de Phone Number [facility] [address] [place] [address] * Lactate Dehydrogenase, Plasma (01/28/2025 9:02 AM EST) LDH, Plasma 237 116 - 250 U/L 01/28/2025 11:17 AM EST [facility] Comment:Hemolyzed, result ma y be falsely increased. Blood Venous blood specimen / Unknown Venipuncture / Unknown 01/28/2025 9:02 AM EST 01/28/2025 10:44 AM EST [facility] LAB BLOOD ORDERABLES Final Result Performing Organization Address [facility] Co de Phone Number [facility] [address] [place] [address] * (ABNORMAL) Comprehensive Metabolic Panel, Plasma (01/28/2025 9:02 AM EST) Glucose, Plasma 106(H) 74 - 99 mg/dL 01/28/2025 11:17 AM EST [facility] BUN, Plasma 15 7 - 21 mg/dL 01/28/2025 11:17 AM EST [facility] Creatinine, Plasma 0.55(L) 0.70 - 1.20 mg/dL 01/28/2025 11:17 AM EST [facility] BUN/Creatinine Ratio 27 01/28/2025 11:17 AM EST [facility] Sodium, Plasma 139 136 - 145 mmol/L 01/28/2025 11:17 AM EST [facility] Potassium, Plasma 3.9 3.6 - 4.9 mmol/L 01/28/2025 11:17 AM EST [facility] Chloride, Plasma 104 97 - 107 mmol/L 01/28/2025 11:17 AM EST [facility] CO2, Plasma 24 22 - 29 mmol/L 01/28/2025 11:17 AM EST [facility] Anion Gap 11 6 - 16 mmol/L 01/28/2025 11:17 AM EST [facility] Total Calcium, Plasma 8.1(L) 8.9 - 10.2 mg/dL 01/28/2025 11:17 AM EST [facility] Total Protein 6.9 6.3 - 7.9 g/dL 01/28/2025 11:17 AM EST [facility] Albumin, Plasma 3.2(L) 3.5 - 5.2 g/dL 01/28/2025 11:17 AM EST [facility] AST, Plasma 47 10 - 50 U/L 01/28/2025 11:17 AM EST [facility] Comment:Hemolyzed, result ma y be falsely increased. ALT, Plasma 41 10 - 50 U/L 01/28/2025 11:17 AM EST [facility] Alkaline Phosphatase, Plasma 65 40 - 115 U/L 01/28/2025 11:17 AM EST [facility] Total Bilirubin, Plasma 1.0 0.2 - 1.1 mg/dL 01/28/2025 11:17 AM EST [facility] eGFRcr 117.0 mL/min/1.7 3m*2 01/28/2025 11:17 AM EST [facility] Comment:Reported eGFRcr in m L/min/1.73m2 is based the CKD-EPI 2020 equation that does not use a race coefficient. Blood Venous blood specimen / Unknown Venipuncture / Unknown 01/28/2025 9:02 AM EST 01/28/2025 10:44 AM EST us [facility] LAB BLOOD ORDERABLES Final Result [facility] [address] [place] [address] * Antimicrobial Susceptibility- ISELA (SO) (01/21/2025 11:32 AM EST) See Scanned Result SEE SCANNED DOCUMENT 02/01/2025 1:00 PM EST [facility] ([facility]) Swab Topography unknown / Unknown Non-blood Collection / Unknown 01/21/2025 11:32 AM EST 01/21/2025 12:00 PM EST Bita Dyer MD LAB REF LAB BLOOD A ND FLUID ORD Final Result [facility] ([facility]) [address] [place] [address] * (ABNORMAL) Wound Culture and Gram Stain (01/21/2025 11:32 AM EST) CULTURE READING WOUND Light Growth 01/27/2025 2:28 PM EST [facility] CULTURE READING WOUND Corynebacterium amycolatum(A) 01/27/2025 2:28 PM EST [facility] Comment: This isolate has been identified using the FDA Approved TVtriper CA System The organism value for this result has been updated. These results have been appended to the previously preliminary verified report. Edited result: Previously reported as Gram positive samuel on 01/24/2025 at 0826 EST. Gram Stain Result Rare Polymorphonuclear leukocytes(A) 01/27/2025 2:28 PM EST [facility] Gram Stain Result Rare Gram positive rods(A) 01/27/2025 2:28 PM EST [facility] Gram Stain Result Rare Gram positive cocci in pairs(A) 01/27/2025 2:28 PM EST [facility] Swab Topography unknown / Unknown Non-blood Collection / Unknown 01/21/2025 11:32 AM EST 01/21/2025 12:00 PM EST Narrative [facility] - 01/27/2025 2:28 PM EST [...] approved. Results for research use only. Marti Shell Dilip SANDOVAL LAB MICROBIOLOGY - GENERAL ORDERABLES Final Result [facility] [address] [place] [address] * CARDIAC DEVICE CHECK - REMOTE - [...] impedance is stable. Has LVAD Dina Saldana METAL AND PLASTIC HEATER CV IMPLANTABLE CARDIAC DEV ICE PROCEDURES Final Result * Hemoglobin A1c (02/13/2024 11:38 AM EST) Hemoglobin A1c 5.2 <5.7 % 02/13/2024 12:50 PM EST [facility] Blood Venous blood specimen / Unknown Venipuncture / Unknown 02/13/2024 11:38 AM EST 02/13/2024 11:52 AM EST Narrative [facility] - 02/13/2024 12:50 PM EST HA1C Interpretive Data: Diagnosis of Diabetes: Diabetic > or = 6.5% Pre-diabetic 5.7 to 6.4% Non-diabetic < or = 5.6% Glycemic Targets for Type I and Type II Diabetics: Non- Adults <7.0% Adults <6.0% Children and Adolescents <7.5% Source: [place] [employer]. Standards of medical care in diabetes,2017. Diabetes Care.2017:40 (suppl 1):S1-S135. HbA1c assay performed by an ion-exchange chromatography method that is certified traceable to the DCCT. us Marti Cherry APRN LAB BLOOD ORDERABLES Final Result Performing Organization Address City/[facility]/ZIP Co de Phone Number [facility] [address] [place] [address] * ED HIV 1/2 Antibody/Antigen Screen w/Reflex to HIV 1/2 Differentiation (12/18/2023 11:15 AM EDT) HIV 1 & 2 Antibody/Antigen Screen Non Reactive Non Reactive 12/18/2023 12:53 PM EDT [facility] Comment:Screening for HIV 1 & 2 antibodies, and P24 antigen is NONREACTIVE. No confirmatory testing is required. Blood Venous blood specimen / Unknown Venipuncture / Unknown 12/18/2023 11:15 AM EDT 12/18/2023 11:31 AM EDT us Mayito Gunn MD LAB BLOOD ORDERABLES Final Res ult [facility] [address] [place] [address] * Hepatitis C Antibody - ED (12/18/2023 11:15 AM EDT) Hepatitis C Antibody Negative Negative 12/18/2023 12:39 PM EDT [facility] Blood Venous blood specimen / Unknown Venipuncture / Unknown 12/18/2023 11:15 AM EDT 12/18/2023 11:31 AM EDT us Mayito Gunn MD LAB BLOOD ORDERABLES Final Res ult [facility] [address] [place] [address] from Last 3 Months or Most Recently Relevant to Health Maintenance Additional Health Concerns Infection Onset 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 Yes Care Teams Band And Cuff Cutter Relationship Specialty Start Date End Date Herberth Perez MD [address] [place] [address] [place] [address] PCP - General 07/17/20 Gracia Petersen, METAL AND PLASTIC HEATER [address] [place] [address] Nurse Practitioner Internal Medicine 08/06/20 Yunior Solorzano MD [address] [place] [address] Consulting Physician Gastroenterology 07/18/22 Ross Baez DO [address] [address] Surgeon Cardiothoracic Surgery 07/18/22 Edith Aleman, KINDERGARTEN TEACHER None VAD Coordinator 10/14/24
--- OUTSIDE RECORDS SUMMARY | 2025-02-24 14:56 | XMS_ITS | Encounter Summary ---
Author Organization [employer] ([place], [place], [place], [place], [place]) Address [address] [place] [address] Care Team Providers Care Chemical Operator Name Role Phone Unavailable Primary Care Provider Unavailabl e Encounter Details Date Type Department Care Team (Late st Contact Info) Description 05/06/2019 Transcribed Document [facility] Family [place] [facility] [address] ProviderMg MD [facility] [place] [address] Social History Tobacco Use Types Packs/Day Years Used Date Smoking Tobacco: Never Assessed Sex and Gender Information Value Date Recorded Sex Assigned at Not on file Legal Sex Male 1:09 PM CDT Gender Identity Not on file Sexual Orientation Not on file documented as of this encounter Miscellaneous Notes * [employer]ner Conversion Note - Historical ProviderMD - 05/06/2019 5:00 AM RECEIVING CHECKER Chart Check - Review Order Profile Entered [...]
--- OUTSIDE RECORDS SUMMARY | 2025-02-24 14:56 | XMS_ITS | Encounter Summary ---
Author Organization [employer] ([place], [place], [place], [place], [place]) Address [address] [place] [address] Care Team Providers Care Senior Design Engineer Name Role Phone Unavailable Primary Care Provider Unavailabl e Encounter Details Date Type Department Care Team (Late st Contact Info) Description 05/06/2019 Transcribed Document [facility] [place] Family Medicine [facility] [place] [address] ProviderMg MD [facility] [place] [address] Social History Tobacco Use Types Packs/Day Years Used Date Smoking Tobacco: Never Assessed Sex and Gender Information Value Date Recorded Sex Assigned at Not on file Legal Sex Male 1:09 PM CDT Gender Identity Not on file Sexual Orientation Not on file documented as of this encounter Miscellaneous Notes * Cerner Conversion Note - Historical ProviderMD - 05/06/2019 10:07 AM LAUNDRY LABORER Event Note Entered On: 05/06/2019 10:08 EST Performed On: 05/06/2019 10:07 EST by Erika Robles RN Event Note Event Date/Time : 05/06/2019 10:07 EST Description of Event : Per Mayito TORIBIO pt can be given Erika Alonso RN - 05/06/2019 10:07 EST Electronically signed by Jackie [facility] Conversion Shipping Coordinator Cerner at 06/19/2022 11:01 PM CDT documented in this encounter Plan of Treatment Not on file documented as of this encounter Visit Diagnoses Not on filedocumented in this encounter
--- OUTSIDE RECORDS SUMMARY | 2025-02-24 14:56 | XMS_ITS | Encounter Summary ---
Author Organization [employer] ([place], [place], [place], [place], [place]) Address [address] [place] [address] Care Team Providers Care Surveying Crew Stake Runner Name Role Phone Unavailable Primary Care Provider Unavailabl e Encounter Details Date Type Department Care Team (Late st Contact Info) Description 05/07/2019 Transcribed Document [facility] [place] Medicine [facility] [place] [address] ProviderMg MD [facility] [place] [address] Social History Tobacco Use Types Packs/Day Years Used Date Smoking Tobacco: Never Assessed Sex and Gender Information Value Date Recorded Sex Assigned at Not on file Legal Sex Male 1:09 PM CDT Gender Identity Not on file Sexual Orientation Not on file documented as of this encounter Miscellaneous Notes * Cerner Conversion Note - Mg Ritchie MD - 05/07/2019 1:19 PM FILLING HAULER WEAVING Patient: JOSE PEARSON Age: 48 years Sex: [...] 135 mL/Hr, IV Piggyback, Daily Flonase: 1 [place], Nostrils Both, BID Melatonin: 3 mg, Oral, [...]
--- OUTSIDE RECORDS SUMMARY | 2025-02-24 14:57 | XMS_ITS | Encounter Summary ---
Author Organization [employer] ([place], [place], [place], [place], [place]) Address [address] [place] [address] Care Team Providers Care Applications Support Analyst Name Role Phone Unavailable Primary Care Provider Unavailabl e Encounter Details Date Type Department Care Team (Late st Contact Info) Description 03/29/2018 Transcribed Document [facility] [place] [address] [place] [address] ProviderMg MD [facility] [place], [place] [address] Social History Tobacco Use Types Packs/Day Years Used Date Smoking Tobacco: Never Assessed Sex and Gender Information Value Date Recorded Sex Assigned at Not on file Legal Sex Male 1:09 PM CDT Gender Identity Not on file Sexual Orientation Not on file documented as of this encounter Miscellaneous Notes * Cerner Conversion Note - Historical ProviderMD - 03/29/2018 2:00 AM VENUE MANAGER Driver Recruiter Details Entered On: 03/29/2018 1:30 EST Performed [...]
--- OUTSIDE RECORDS SUMMARY | 2025-02-24 14:57 | XMS_ITS | Encounter Summary ---
Author Organization [employer] ([place], [place], [place], [place], [place]) Address [address] [place] [address] Care Team Providers Care Life Consultant Name Role Phone Unavailable Primary Care Provider Unavailabl e Encounter Details Date Type Department Care Team (Late st Contact Info) Description 03/29/2018 Transcribed Document [facility] [place] [facility] [place] [address] ProviderMg MD [facility] [place] [address] Social History Tobacco Use Types Packs/Day Years Used Date Smoking Tobacco: Never Assessed Sex and Gender Information Value Date Recorded Sex Assigned at Not on file Legal Sex Male 1:09 PM CDT Gender Identity Not on file Sexual Orientation Not on file documented as of this encounter Miscellaneous Notes * Cerner Conversion Note - Historical ProviderMD - 03/29/2018 10:[address] [facility] OT Charges Entered On: 03/29/2018 10:35 EST Performed On: 03/29/2018 10:29 EST by DEIRDRE CASTILLO OTR/Kaushal Hager OT Charges Screen For Proof Press Operator : 1 DEIRDRE CASTILLO OTR/Kaushal - 03/29/2018 10:35 EST documented in this encounter Plan of Treatment Not on file documented as of this encounter Visit Diagnoses Not on filedocumented in this encounter
--- OUTSIDE RECORDS SUMMARY | 2025-02-24 14:57 | XMS_ITS | Encounter Summary ---
Author Organization [employer] ([place], [place], [place], [place], [place]) Address [address] [place] [address] Care Team Providers Care Medart Operator Name Role Phone Unavailable Primary Care Provider Unavailabl e Encounter Details Date Type Department Care Team (Late st Contact Info) Description 04/19/2018 Transcribed Document [facility] [place] [facility] [place] [address] ProviderMg MD [facility] [place] [address] Social History Tobacco Use Types Packs/Day Years Used Date Smoking Tobacco: Never Assessed Sex and Gender Information Value Date Recorded Sex Assigned at Not on file Legal Sex Male 1:09 PM CDT Gender Identity Not on file Sexual Orientation Not on file documented as of this encounter Miscellaneous Notes * Cerner Conversion Note - Historical ProviderMD - 04/19/2018 5:00 AM SCAFFOLDER Height and Weight, Routine Entered On: 04/19/2018 5:58 EST Performed On: 04/19/2018 5:00 EST by Polly Renteria Care [facility] Unit Coord Height and Weight, Routine Routine Weight Source : Standing scale Routine Weight Entry Format : Grand Routine Weight, Pounds : 229 lb Routine Weight, Ounces : 9 oz Routine Weight Calculation : 104.35 kg Height Source : Stated Height Entry Format : Grand Height, Feet : 6 ft Height, Inches : 0 Inch Clinical Height : 182.88 cm Body Surface Area (BSA), Routine : 2.26 m2 Body Mass Index (BMI), Routine : 31.2 kg/m2 Polly Renteria Care [facility] Unit Coord - 04/19/2018 5:58 EST documented in this encounter Plan of Treatment Not on file documented as of this encounter Visit Diagnoses Not on filedocumented in this encounter
--- OUTSIDE RECORDS SUMMARY | 2025-02-24 14:57 | XMS_ITS | Encounter Summary ---
Author Organization [employer] ([place], [place], [place], [place], [place]) Address [address] [place] [address] Care Team Providers Care Table Tender Sludge Name Role Phone Unavailable Primary Care Provider Unavailabl e Encounter Details Date Type Department Care Team (Late st Contact Info) Description 04/14/2018 Transcribed Document [facility] Family [place] [address] Provider[place] [address] Social History Tobacco Use Types Packs/Day Years Used Date Smoking Tobacco: Never Assessed Sex and Gender Information Value Date Recorded Sex Assigned at Not on file Legal Sex Male 1:09 PM CDT Gender Identity Not on file Sexual Orientation Not on file documented as of this encounter Miscellaneous Notes * Cerner Conversion Note - Mg Ritchie MD - 04/14/2018 11:19 PM RAILROAD HAND Care Management Assessment/Plan Entered On: 04/16/2018 9:22 [...] Pearson Emergency Contact #1 Phone Number : [phone] Emergency Contact #1 Relationship : Emergency Contact [...] Disposition Note-CM Discharge To Care Management : Home/Residential/Nursing Home or Self Care -01 Breann Ordaz, RN - 04/16/2018 9:19 EST Electronically signed by [facility] Conversion Pari Mutuel Clerk Cerner at 06/19/2022 10:56 PM CDT documented in this encounter Plan of Treatment Not on file documented as of this encounter Visit Diagnoses Not on filedocumented in this encounter
--- OUTSIDE RECORDS SUMMARY | 2025-02-24 14:57 | XMS_ITS | Encounter Summary ---
Author Organization [employer] ([place], [place], [place], [place], [place]) Address [address] [place] [address] Care Team Providers Care Heating And Air Conditioning Mechanic Name Role Phone Unavailable Primary Care Provider Unavailabl e Encounter Details Date Type Department Care Team (Late st Contact Info) Description 04/19/2018 Transcribed Document [facility] [place] Medicine [facility] [place] [address] ProviderMg MD [facility] [place] [address] Social History Tobacco Use Types Packs/Day Years Used Date Smoking Tobacco: Never Assessed Sex and Gender Information Value Date Recorded Sex Assigned at Not on file Legal Sex Male 1:09 PM CDT Gender Identity Not on file Sexual Orientation Not on file documented as of this encounter Miscellaneous Notes * Cerner Conversion Note - Historical ProviderMD - 04/19/2018 5:[address] ENGINEER Chart Check - Review Order Profile Entered On: 04/19/2018 6:22 EST Performed On: 04/19/2018 5:00 EST by JB GUTIERREZ RN Chart Check Chart Reviewed Date and Time : 04/19/2018 6:22 EST Powerplans Initiated/Discontinued as Appropriate : Yes All Active Orders Reviewed : Yes JB GUTIERREZ RN - 04/19/2018 6:22 EST Electronically signed by Jackie [facility] Conversion Mortgage Counselor Cerner at 06/19/2022 10:49 PM CDT documented in this encounter Plan of Treatment Not on file documented as of this encounter Visit Diagnoses Not on filedocumented in this encounter
--- OUTSIDE RECORDS SUMMARY | 2025-02-24 14:57 | XMS_ITS | Encounter Summary ---
Author Organization [employer] ([place], [place], [place], [place], [place]) Address [address] [place] [address] Care Team Providers Care Turning Lathe Tender Name Role Phone Unavailable Primary Care Provider Unavailabl e Encounter Details Date Type Department Care Team (Late st Contact Info) Description 04/20/2018 Transcribed Document [facility] [place] [facility] [place] [address] ProviderMg MD [facility] [place] [address] Social History Tobacco Use Types Packs/Day Years Used Date Smoking Tobacco: Never Assessed Sex and Gender Information Value Date Recorded Sex Assigned at Not on file Legal Sex Male 1:09 PM CDT Gender Identity Not on file Sexual Orientation Not on file documented as of this encounter Miscellaneous Notes * Cerner Conversion Note - Mg ProviderMD - 04/20/2018 10:33 AM SHANK CUTTER Patient: JOSE PEARSON Age: 47 years Sex: [...] Gastrointestinal: Normal bowel sounds. Integumentary: Warm, Dry, [place]. Results Review General results HYROID ULTRASOUND HISTORY: [...]
--- OUTSIDE RECORDS SUMMARY | 2025-02-24 14:57 | XMS_ITS | Encounter Summary ---
Author Organization Healthcare Address [address] [place] [address] Care Team Providers Care Clerical Stock Inspector Name Role Phone Herberth Perez MD Primary Care Provider [phone] Gracia Petersen ADHESIVE SPRAYER Unavailable [phone] Yunior Solorzano MD Unavailable [phone] Ross Baez DO Unavailable [phone] Edith Aleman RN Unavailable Unavailable Encounter Details Date Type Department Care Team (Late st Contact Info) Description 01/08/2025 [facility] [place] [address] [place] [address] Edith Aleman, ASSISTANT SPEECH LANGUAGE PATHOLOGIST None Social History Tobacco Use Types Packs/Day [...] drink first t janine in the morning (EYE-CRIMINAL LAWYER) to steady your nerves or to get [...] Description 04/22/2025 9:00 AM EST Ancillary Procedure [place] [facility] [place] [address] [place] [address] documented as of this encounter Goals Goal Patient Goal Type Associated Problems Recent Progress Patient-Stated? Author LVAD Short Term Goal General On track( 11:53 AM EDT) Yes Katrin Oviedo, MARYCARMEN Note: - 07/04/23: Patient states he wants to attend a wedding in November in [place] LVAD Resolute Professional Goal General On track( 11:53 AM EDT) [...] documented as of this encounter Care Teams Clerical Stock Inspector Relationship Specialty Start Date End Date Herberth Perez MD [address] [place] [address] [place] [address] PCP - General 07/17/20 Gracia Petersen APRN [address] [place] [address] Nurse Practitioner Internal Medicine 08/06/20 Yunior Solorzano MD [address] [place] [address] Consulting Physician Gastroenterology 07/18/22 Ross Baez, [address] [id number] Surgeon Cardiothoracic Surgery 07/18/22 Edith Aleman, ASSISTANT SPEECH LANGUAGE PATHOLOGIST None VAD Coordinator 10/14/24 documented as of this encounter
--- OUTSIDE RECORDS SUMMARY | 2025-02-24 14:57 | XMS_ITS | Encounter Summary ---
Author Organization [employer] ([place], [place], [place], [place], [place]) Address [address] [place] [address] Care Team Providers Care Genetic Counsellor Name Role Phone Unavailable Primary Care Provider Unavailabl e Encounter Details Date Type Department Care Team (Late st Contact Info) Description 06/25/2018 Transcribed Document [facility] Radiology [address] [place] [address] Judy Perry MD [address] [address] Social History Tobacco Use Types [...] Bedtime fluticasone 50 mcg/inh nasal spray 1 [place], Nostrils Both, Daily Lasix 40 mg oral [...] see supporting data below *Scribed by [facility] Status Allergies: Allergic Reactions (Selected) No [...] Refill(s) fluticasone 50 mcg/inh nasal spray: 1 [place], Nostrils Both, Daily, 0 Refill(s) montelukast 10 mg oral tablet: 1 Tab, Oral, Daily, 0 Refill(s) pravastatin 80 mg oral tablet: 1 Tab, Oral, At Bedtime, 0 Refill(s) spironolactone: 25 mg, Oral, Daily, 0 Refill(s), Medications (1) Active Scheduled: (1) diazepam 5 mg tab 5 mg 1 Tab, Oral, 1-Time Continuous: (0) PRN: (0) Problem list: Medical angina / SNOMED CT 669294539 / Confirmed At risk for sleep apnea / IMO [id number] / Confirmed cardiac defibulator / Confirmed interrogated at physicians office---02/22/13 pacemaker / SNOMED CT 1392269882 / Confirmed stroke / SNOMED CT 166182844 / Confirmed he had a stroke when they found the blood clot in valve History of obstructive sleep apnea / IMO 62907028 / Confirmed high cholesterol / SNOMED CT 96041544 / Confirmed hypertension / SNOMED CT 1312476783 / Confirmed myocardial infarction / SNOMED CT 52331871 / Confirmed sesonal allergies / Confirmed, Active [...]
--- OUTSIDE RECORDS SUMMARY | 2025-02-24 14:57 | XMS_ITS | Encounter Summary ---
Author Organization [employer] ([place], [place], [place], [place], [place]) Address [address] [place] [address] Care Team Providers Care Universal Worker Assisted Living Name Role Phone Unavailable Primary Care Provider Unavailabl e Encounter Details Date Type Department Care Team (Late st Contact Info) Description 04/19/2018 Transcribed Document [facility] [place] Family Medicine [address] [place] [address] ProviderMg MD [facility] [place] [address] Social History Tobacco Use Types Packs/Day Years Used Date Smoking Tobacco: Never Assessed Sex and Gender Information Value Date Recorded Sex Assigned at Not on file Legal Sex Male 1:09 PM CDT Gender Identity Not on file Sexual Orientation Not on file documented as of this encounter Miscellaneous Notes * [employer]ner Conversion Note - Historical ProviderMD - 04/19/2018 11:42 AM SWING TYPE LATHE OPERATOR Spiritual Care Short Form Entered On: 04/19/2018 [...]
--- OUTSIDE RECORDS SUMMARY | 2025-02-24 14:57 | XMS_ITS | Encounter Summary ---
Author Organization [employer] ([place], [place], [place], [place], [place]) Address [address] [place] [address] Care Team Providers Care Rn Peritoneal Dialysis Name Role Phone Unavailable Primary Care Provider Unavailabl e Encounter Details Date Type Department Care Team (Late st Contact Info) Description 03/29/2018 Transcribed Document [facility] [place] [address] ProviderMg MD [address] [place] [address] Social History Tobacco Use Types Packs/Day Years Used Date Smoking Tobacco: Never Assessed Sex and Gender Information Value Date Recorded Sex Assigned at Not on file Legal Sex Male 1:09 PM CDT Gender Identity Not on file Sexual Orientation Not on file documented as of this encounter Miscellaneous Notes * [employer]ner Conversion Note - Mg ProviderMD - 03/29/2018 1:22 PM PHARMACY PICKING TECH Patient Education Materials Follows: Cardiomyopathy, Adult Cardiomyopathy [...] Other treatments may include cardiac resynchronization therapy (CRAFT CENTER DIRECTOR) or a left ventricular assist device (LVAD). [...] to manage stress. General instructions ??? Take [id number]-[id number] and prescription medicines only as told by [...] 05/05/2005 Document Revised: 10/18/2016 Document Reviewed: 08/22/2016 [employer] Player Interactive Patient Education ? 2017 [employer] Emergency Medicine Atrial Fibrillation Atrial fibrillation [...] ??? Certain heart rhythm disorders, such as Solr-Unzdgybjf-Bzsii syndrome. Other causes include: ??? Pneumonia. ??? [...] 02/20/2006 Document Revised: 06/29/2016 Document Reviewed: 06/17/2015 [employer] Player Interactive Patient Education ? 2017 [employer] documented in this encounter Plan of Treatment Not on file documented as of this encounter Visit Diagnoses Not on filedocumented in this encounter
--- OUTSIDE RECORDS SUMMARY | 2025-02-24 14:57 | XMS_ITS | Encounter Summary ---
Author Organization [employer] ([place], [place], [place], [place], [place]) Address [address] [place] [address] Care Team Providers Care Agricultural Engineer Name Role Phone Unavailable Primary Care Provider Unavailabl e Encounter Details Date Type Department Care Team (Late st Contact Info) Description 03/29/2018 Transcribed Document [facility] [place] Family Medicine [facility] [place] [address] ProviderMg MD [facility] [place] [address] Social History Tobacco Use Types Packs/Day Years Used Date Smoking Tobacco: Never Assessed Sex and Gender Information Value Date Recorded Sex Assigned at Not on file Legal Sex Male 1:09 PM CDT Gender Identity Not on file Sexual Orientation Not on file documented as of this encounter Miscellaneous Notes * [employer] Conversion Note - Historical ProviderMD - 03/29/2018 5:00 AM SENIOR SALES EXECUTIVE Chart Check - Review Order Profile Entered [...]
--- OUTSIDE RECORDS SUMMARY | 2025-02-24 14:57 | XMS_ITS | Encounter Summary ---
Author Organization [employer] ([place], [place], [place], [place], [place]) Address [address] [place] [address] Care Team Providers Care Mixer Lever Operator Name Role Phone Unavailable Primary Care Provider Unavailabl e Encounter Details Date Type Department Care Team (Late st Contact Info) Description 04/19/2018 Transcribed Document [facility] [place] Family [place] [address] ProviderMg [place] [address] Social History Tobacco Use Types Packs/Day Years Used Date Smoking Tobacco: Never Assessed Sex and Gender Information Value Date Recorded Sex Assigned at Not on file Legal Sex Male 1:09 PM CDT Gender Identity Not on file Sexual Orientation Not on file documented as of this encounter Miscellaneous Notes * [employer] Conversion Note - Mg ProviderMD - 04/19/2018 11:28 AM DETECTIVE BUREAU CHIEF Patient: JOSE PEARSON Age: 47 years Sex: [...] Gastrointestinal: Normal bowel sounds. Integumentary: Warm, Dry, [place]. Results Review General results HYROID ULTRASOUND HISTORY: [...]
--- OUTSIDE RECORDS SUMMARY | 2025-02-24 14:57 | XMS_ITS | Encounter Summary ---
Author Organization [employer] ([place], [place], [place], [place], [place]) Address [address] [place] [address] Care Team Providers Care Mental Health Consultant Name Role Phone Unavailable Primary Care Provider Unavailabl e Encounter Details Date Type Department Care Team (Late st Contact Info) Description 04/20/2018 Transcribed Document [facility] [place] [facility] [place] [address] ProviderMg MD [facility] [place], [place] [address] Social History Tobacco Use Types Packs/Day Years Used Date Smoking Tobacco: Never Assessed Sex and Gender Information Value Date Recorded Sex Assigned at Not on file Legal Sex Male 1:09 PM CDT Gender Identity Not on file Sexual Orientation Not on file documented as of this encounter Miscellaneous Notes * Cerner Conversion Note - Historical ProviderMD - 04/20/2018 2:00 AM PANEL MACHINE TENDER Responder Details Entered On: 04/20/2018 5:45 EST Performed [...]
--- OUTSIDE RECORDS SUMMARY | 2025-02-24 14:57 | XMS_ITS | Encounter Summary ---
Author Organization [employer] ([place], [place], [place], [place], [place]) Address [address] [place] [address] Care Team Providers Care Senior Technical Specialist Name Role Phone Unavailable Primary Care Provider Unavailabl e Encounter Details Date Type Department Care Team (Late st Contact Info) Description 04/20/2018 Transcribed Document [facility] [place] [facility] [place] [address] ProviderMg MD [facility] [place], [place] [id number] Social History Tobacco Use Types Packs/Day Years Used Date Smoking Tobacco: Never Assessed Sex and Gender Information Value Date Recorded Sex Assigned at Not on file Legal Sex Male 1:09 PM CDT Gender Identity Not on file Sexual Orientation Not on file documented as of this encounter Miscellaneous Notes * Cerner Conversion Note - Historical ProviderMD - 04/20/2018 1:33 PM WARDROBE MISTRESS Nursing Discharge Summary Entered On: 04/20/2018 13:34 EST Performed On: 04/20/2018 13:33 EST by RAJAT NAZARIO pie filler Documentation Patient Disposition, General : Discharge IV [...] 04/20/2018 13:33 EST Electronically signed by Jackie [facility] Conversion Nuclear Fuels Reclamation Engineer Cerner at 06/19/2022 11:02 PM CDT documented in this encounter Plan of Treatment Not on file documented as of this encounter Visit Diagnoses Not on filedocumented in this encounter
--- OUTSIDE RECORDS SUMMARY | 2025-02-24 14:57 | XMS_ITS | Encounter Summary ---
Author Organization [employer] ([place], [place], [place], [place], [place]) Address [address] [place] [address] Care Team Providers Care Collection Development Librarian Name Role Phone Unavailable Primary Care Provider Unavailabl e Encounter Details Date Type Department Care Team (Late st Contact Info) Description 04/19/2018 Transcribed Document [facility] [place] [facility] [place] [address] ProviderMg MD [facility] [place], [place] [address] Social History Tobacco Use Types Packs/Day Years Used Date Smoking Tobacco: Never Assessed Sex and Gender Information Value Date Recorded Sex Assigned at Not on file Legal Sex Male 1:09 PM CDT Gender Identity Not on file Sexual Orientation Not on file documented as of this encounter Miscellaneous Notes * Cerner Conversion Note - Historical ProviderMD - 04/19/2018 2:00 AM SILK SCREEN PROCESSOR Scrap Sorter Details Entered On: 04/19/2018 6:22 EST Performed [...]
--- OUTSIDE RECORDS SUMMARY | 2025-02-24 14:57 | XMS_ITS | Encounter Summary ---
Author Organization [employer] ([place], [place], [place], [place], [place]) Address [address] [place] [address] Care Team Providers Care Catalogue Illustrator Name Role Phone Unavailable Primary Care Provider Stefan pond Encounter Details Date Type Department Care Team (Late st Contact Info) Description 03/29/2018 Transcribed Document [facility] [place] Medicine [facility] [place] [address] ProviderMg MD [facility] [address] Social History Tobacco Use Types Packs/Day Years Used Date Smoking Tobacco: Never Assessed Sex and Gender Information Value Date Recorded Sex Assigned at Not on file Legal Sex Male 1:09 PM CDT Gender Identity Not on file Sexual Orientation Not on file documented as of this encounter Miscellaneous Notes * Cerner Conversion Note - Mg ProviderMD - 03/29/2018 1:19 PM SOCIAL WORKER DELINQUENCY PREVENTION Discharge Instructions Entered On: 03/29/2018 13:21 EST Performed On: 03/29/2018 13:19 EST by BRAIN BEASLEY RN DC Instructions HWD Stroke/TIA Discharge [...]
--- OUTSIDE RECORDS SUMMARY | 2025-02-24 14:57 | XMS_ITS | Encounter Summary ---
Author Organization [employer] ([place], [place], [place], [place], [place]) Address [address] [place] [address] Care Team Providers Care Galley Hand Name Role Phone Unavailable Primary Care Provider Unavailabl e Encounter Details Date Type Department Care Team (Late st Contact Info) Description 04/14/2018 Transcribed Document [facility] [place] [facility] [place] [address] ProviderMg MD [facility] [place] [address] Social History Tobacco Use Types Packs/Day Years Used Date Smoking Tobacco: Never Assessed Sex and Gender Information Value Date Recorded Sex Assigned at Not on file Legal Sex Male 1:09 PM CDT Gender Identity Not on file Sexual Orientation Not on file documented as of this encounter Miscellaneous Notes * Cerner Conversion Note - Historical ProviderMD - 04/14/2018 9:18 PM RENEWALS MANAGER Nutrition Assessment Entered On: 04/16/2018 12:01 EST [...] PMH: angina, pacemaker, GERD, CVA, HTN, HLD, [place] Labs: Na 135, Alb 3.3 Meds: colace, [...] 04/16/2018 16:12 EST Electronically signed by Jackie [facility] Conversion Boat Joiner Helper Cerner at 06/19/2022 10:49 PM CDT documented in this encounter Plan of Treatment Not on file documented as of this encounter Visit Diagnoses Not on filedocumented in this encounter
--- OUTSIDE RECORDS SUMMARY | 2025-02-24 14:57 | XMS_ITS | Encounter Summary ---
Author Organization [employer] ([place], [place], [place], [place], [place]) Address [address] [place] [address] Care Team Providers Care Advice Clerk Name Role Phone Unavailable Primary Care Provider Unavailabl e Encounter Details Date Type Department Care Team (Late st Contact Info) Description 03/29/2018 Transcribed Document [facility] [place] [facility] [place] [address] ProviderMg MD [facility] [place] [address] Social History Tobacco Use Types Packs/Day Years Used Date Smoking Tobacco: Never Assessed Sex and Gender Information Value Date Recorded Sex Assigned at Not on file Legal Sex Male 1:09 PM CDT Gender Identity Not on file Sexual Orientation Not on file documented as of this encounter Miscellaneous Notes * Cerner Conversion Note - Mg ProviderMD - 03/29/2018 1:39 PM MANUFACTURING STOREPERSON [facility] [address], [place] [address] Patient Copy Patient Information: Name: JOSE PEARSON Current Date: 03/29/2018 13:39:19 : 1970 Patient [address]: [address] [place] [id number] Patient Attending Physician: Primary Care Provider: HUMA YARBROUGH (REF)MD-INT Primary Care Provider Discharge Diagnosis: Atrial fibrillation; NICM (nonischemic cardiomyopathy) Weight on Admission: 236 lb, 8 oz Weight at Discharge: 237 lb, 4 oz Comment: Follow-up Instructions: With: Address: When: SO BURDICK [address] [place] [address] Business (1) Within 2 weeks [...] Discharge Instructions (if any): Final Medication List: [facility], [address] [place], [place] [id number], [phone] sotalol (sotalol 120 mg oral tablet) 1 [...] nasal (fluticasone 50 mcg/inh nasal spray) 1 [place](s) Nostrils Both Every Day. furosemide (Lasix 40 [...] Other treatments may include cardiac resynchronization therapy (BROADCAST PRODUCER) or a left ventricular assist device (LVAD). [...] to manage stress. General instructions ??? Take iuzz-fid-pdvnzpd and prescription medicines only as told by [...] 05/05/2005 Document Revised: 10/18/2016 Document Reviewed: 08/22/2016 ElseCovalent Software Interactive Patient Education ? 2017 [employer] Inc. Atrial Fibrillation Atrial fibrillation is a [...] ??? Certain heart rhythm disorders, such as Jdzu-Bcyttxmss-Mqhih syndrome. Other causes include: ??? Pneumonia. ??? [...] 02/20/2006 Document Revised: 06/29/2016 Document Reviewed: 06/17/2015 Soevolved Interactive Patient Education ? 2017 [employer] Inc. Medication Leaflets: sotalol (JS ta lol) [...] may report side effects to FDA at 8-345-VIZ-8747. What other drugs will affect sotalol? Many [...] interact with sotalol. This includes prescription and qvzs-dkb-offwast medicines, vitamins, and herbal products. Give a [...] to ensure that the information provided by [employer]. ('E/T Technologiestum') is accurate, up-to-date, and complete, but no guarantee is made to that effect. Drug information contained herein may be time sensitive. Likely.co information has been compiled for use by healthcare practitioners and consumers in the [place] and therefore Likely.co does not warrant that uses outside of the [place] are appropriate, unless specifically indicated otherwise. LineRate Systemss drug information does not endorse drugs, diagnose patients or recommend therapy. LineRate Systemss drug information is an informational resource [...] effective or appropriate for any given patient. Likely.co does not assume any responsibility for any aspect of healthcare administered with the aid of information Lik[employer].co provides. The information contained herein is not intended to cover all possible uses, directions, precautions, warnings, drug interactions, allergic reactions, or adverse effects. If you have questions about the drugs you are taking, check with your doctor, nurse or pharmacist. Copyright 0128-2133 [employer]. Version: .. Revision Date: 02/18/2014. CIGARETTE SMOKING: The facts are clear, cigarette smoking will shorten your life. Smoking can cause many illnesses along the way. As a healthcare provider, we recommend that you stop smoking. Assistance with quitting is available by contacting 0-954-LVGU-NOW. This is a free resource providing counseling, [...] Be sure to sign up for the [employer] patient portal, which gives you 26/09 access to your medical information ??? including these discharge instructions ??? using your computer, smartphone, or tablet. Just go to [employer] to get started. Questions? Call . [facility] would like to thank you for allowing us to assist you with your healthcare needs. ANASTASIA Rich DENNIS PAUL, (or business representative) have received the above patient education materials/instructions and have verbalized understanding: Patient Signature _ Date/Time Patient Facilities Management Executive Signature (if needed) Date/Time Clinician/Hospital Facilities Management Executive Signature (if needed) Date/Time Electronically signed by Jackie, [facility] Conversion Flux Tube Attendant Cerner at 06/19/2022 11:11 PM CDT documented in this encounter Plan of Treatment Not on file documented as of this encounter Visit Diagnoses Not on filedocumented in this encounter
--- OUTSIDE RECORDS SUMMARY | 2025-02-24 14:57 | XMS_ITS | Encounter Summary ---
Author Organization [employer] ([place], [place], [place], [place], [place]) Address [address] [place] [address] Care Team Providers Care Shipper Receiver Name Role Phone Unavailable Primary Care Provider Unavailabl e Encounter Details Date Type Department Care Team (Late st Contact Info) Description 04/20/2018 Transcribed Document [facility] [place] [facility] [address] ProviderMg MD [address] [place] [address] Social History Tobacco Use Types Packs/Day Years Used Date Smoking Tobacco: Never Assessed Sex and Gender Information Value Date Recorded Sex Assigned at Not on file Legal Sex Male 1:09 PM CDT Gender Identity Not on file Sexual Orientation Not on file documented as of this encounter Miscellaneous Notes * Cerner Conversion Note - Mg ProviderMD - 04/20/2018 1:08 PM SHOTWELD OPERATOR [place] [address] [facility] , [place] [address] Patient Copy Patient Information: Name: JOSE PEARSON Current Date: 04/20/2018 13:08:13 : 1970 Patient Address: [address] [place] [id number] Patient Attending Physician: Primary Care Provider: HUMA YARBROUGH (REF)MD-INT Primary Care Provider Discharge Diagnosis: Cardiac rhythm disturbance; Hypotension; Scalp contusion; Syncope Weight on Admission: 229 lb, 0 oz Weight at Discharge: 229 lb, 7 oz Comment: Follow-up Instructions: With: Address: When: JONATAN ISABEL [address] [place] [address] [address] [place] [address] Business (1) In 17 days 05/07/2018 Comments: Office to call with appoint/instructions or you may need to call if you have not heard from them With: Address: When: KIM EDOUARD 1:45 PM Comments: follow for thyroid as we discussed. you have the appropriate address With: Address: When: SO [address] [place], [place] [id number] Business (1) Within 2 weeks Discharge Instructions: Diet after Discharge: Heart healthy diet Activity after Discharge: As tolerated Showering/Bathing: May shower Immunizations Documented During Stay: No Immunizations Found Heart Failure Discharge Instructions (if any): Stroke Related Discharge Instructions (if any): Warfarin Related Discharge Instructions (if any): Final Medication List: [facility] [address] [place], [place] [id number], [phone] dofetilide (Tikosyn 250 mcg oral capsule) 2 [...] nasal (fluticasone 50 mcg/inh nasal spray) 1 [place](s) Nostrils Both Every Day. furosemide (Lasix 40 [...] quickly after you eat. Medicines ??? Take zggk-tio-omzlhli and prescription medicines only as told by [...] 05/17/2010 Document Revised: 11/08/2016 Document Reviewed: 11/08/2016 ElseSandag Interactive Patient Education ? 2017 Elsevier Inc. [...] This can help with dizziness. ??? Take ansx-cvl-uuekoft and prescription medicines only as told by [...] right away. Call your local emergency services (041 in the [place] Do not drive yourself [...] may report side effects to FDA at 0-671-UHQ-3073. What other drugs will affect dofetilide? Other drugs may interact with dofetilide, including prescription and bunh-tok-vfozevu medicines, vitamins, and herbal products. Tell each [...] to ensure that the information provided by Information Gateway. ('Multum') is accurate, up-to-date, and complete, but no guarantee is made to that effect. Drug information contained herein may be time sensitive. Open Range Communications information has been compiled for use by healthcare practitioners and consumers in the [place] and therefore [employer] Communications does not warrant that uses outside of the [place] are appropriate, unless specifically indicated otherwise. Open Range Communications's drug information does not endorse drugs, diagnose patients or recommend therapy. FanBooms drug information is an informational resource designed [...] effective or appropriate for any given patient. [facility] does not assume any responsibility for any aspect of healthcare administered with the aid of information [facility] provides. The information contained herein is not intended to cover all possible uses, directions, precautions, warnings, drug interactions, allergic reactions, or adverse effects. If you have questions about the drugs you are taking, check with your doctor, nurse or pharmacist. Copyright 5793-2209 [employer] Media NetworkBurnett Medical CenterEatStreetafterBOT. Version: 4.01. Revision Date: 06/17/2015. CIGARETTE SMOKING: The facts are clear, cigarette smoking will shorten your life. Smoking can cause many illnesses along the way. As a healthcare provider, we recommend that you stop smoking. Assistance with quitting is available by contacting 7-287-HUCQ-NOW. This is a free resource providing counseling, [...] Be sure to sign up for the OpenVPN patient portal, which gives you 26/09 access to your medical information ??? including these discharge instructions ??? using your computer, smartphone, or tablet. Just go to [employer] to get started. Questions? Call . [facility] would like to thank you for allowing us to assist you with your healthcare needs. ANASTASIA Rich DENNIS PAUL, (or inbound sales representative) have received the above patient education materials/instructions and have verbalized understanding: Patient Signature _ Date/Time Patient Infusion Rn Signature (if needed) Date/Time Clinician/Hospital Infusion Rn Signature (if needed) Date/Time documented in this encounter Plan of Treatment Not on file documented as of this encounter Visit Diagnoses Not on filedocumented in this encounter
--- OUTSIDE RECORDS SUMMARY | 2025-02-24 14:57 | XMS_ITS | Encounter Summary ---
Author Organization [employer] ([place], [place], [place], [place], [place]) Address [address] [place] [address] Care Team Providers Care Bat Lathe Operator Name Role Phone Unavailable Primary Care Provider Unavailabl e Encounter Details Date Type Department Care Team (Late st Contact Info) Description 04/20/2018 Transcribed Document [facility] [place] [address] [place] [address] ProviderMg MD [address] [place] [address] Social History Tobacco Use Types Packs/Day Years Used Date Smoking Tobacco: Never Assessed Sex and Gender Information Value Date Recorded Sex Assigned at Not on file Legal Sex Male 1:09 PM CDT Gender Identity Not on file Sexual Orientation Not on file documented as of this encounter Miscellaneous Notes * Cerner Conversion Note - Mg ProviderMD - 04/20/2018 1:08 PM RAVELER Patient Education Materials Follows:Medicine Hypotension As your [...] quickly after you eat. Medicines ??? Take lctd-ecr-pnjqqrs and prescription medicines only as told by [...] 11/08/2016 Elsevier Interactive Patient Education ? 2017 ElseIntegralReach Inc. Neurology Syncope Introduction Syncope is when [...] This can help with dizziness. ??? Take bddh-myf-gdwrmqn and prescription medicines only as told by [...]
--- OUTSIDE RECORDS SUMMARY | 2025-02-24 14:57 | XMS_ITS | Encounter Summary ---
Author Organization [employer] ([place], [place], [place], [place], [place]) Address [address] [place] [address] Care Team Providers Care Sap Basis Consultant Name Role Phone Unavailable Primary Care Provider Unavailabl e Encounter Details Date Type Department Care Team (Late st Contact Info) Description 04/19/2018 Transcribed Document [facility] [place] Medicine [facility] [place] [address] ProviderMg MD [facility] [place] [address] Social History Tobacco Use Types Packs/Day Years Used Date Smoking Tobacco: Never Assessed Sex and Gender Information Value Date Recorded Sex Assigned at Not on file Legal Sex Male 1:09 PM CDT Gender Identity Not on file Sexual Orientation Not on file documented as of this encounter Miscellaneous Notes * Cerner Conversion Note - Mg ProviderMD - 04/19/2018 10:48 AM JUDGE CLERK Care Management Assessment/Plan Entered On: 04/19/2018 10:48 EST Performed On: 04/19/2018 10:48 EST by Breann Ordaz, RN Care Management Note Anticipated Discharge Date : 04/17/2018 21:00 EST Care Management Note : Home plan at discharge when medically cleared, follow up appoinment placed in discharge form...arh Care Management Note Report : Breann Ordaz, RN - 04/18/18 14:23:07 Jim Sanchez set up appointment with [facility] endocrinology, CAREY cancelled Salazar's appointment and faxed patient information over to [phone]...arh Breann Ordaz, RN - 04/18/18 10:02:59 CM spoke with Rianna hospital wellness coordinator at [facility]'s office, fax [phone]. Patient's requested date for start of care is in 2 weeks but spa associate as scheduling out for 2-3 months. Patient is on the cancellation list at Dr. Salazar's with a July appointment time. Information sent to above fax, appointment time placed in discharge form...Breann Beebe, RN - 04/17/18 13:45:24 Per provider notes, patient scheduled for a DCCV today 04/17/18. [place] to stop all alcohol use. Thyroid work [...] . Home plan at discharge, no needs noted...[facility] Documentation Status Complete : Yes Breann Ordaz, RN - 04/19/2018 10:48 EST Electronically signed by Jackie [facility] Conversion Gift Shop Assistant Cerner at 06/19/2022 11:09 PM CDT documented in this encounter Plan of Treatment Not on file documented as of this encounter Visit Diagnoses Not on filedocumented in this encounter
--- OUTSIDE RECORDS SUMMARY | 2025-02-24 14:57 | XMS_ITS | Encounter Summary ---
Author Organization [employer] ([place], [place], [place], [place], [place]) Address [address] [place] [address] Care Team Providers Care Electric Appliance Installer Name Role Phone Unavailable Primary Care Provider Unavailabl e Encounter Details Date Type Department Care Team (Late st Contact Info) Description 04/20/2018 Transcribed Document [facility] [place] Family [place] [facility] [place] [address] ProviderMg MD [facility] [place] [address] Social History Tobacco Use Types Packs/Day Years Used Date Smoking Tobacco: Never Assessed Sex and Gender Information Value Date Recorded Sex Assigned at Not on file Legal Sex Male 1:09 PM CDT Gender Identity Not on file Sexual Orientation Not on file documented as of this encounter Miscellaneous Notes * Cerner Conversion Note - Mg ProviderMD - 04/20/2018 9:41 AM EARTH OBSERVATIONS CHIEF SCIENTIST Care Management Assessment/Plan Entered On: 04/20/2018 9:42 EST Performed On: 04/20/2018 9:41 EST by Breann Ordaz RN Care Management Note Anticipated Discharge Date : 04/17/2018 21:00 EST Care Management Note : Anticipated discharge today, home plan, follow up with endocrinology arranged...banner Care Management Note Report : Breann Ordaz RN - 04/19/18 10:48:25 Home plan at discharge when medically cleared, follow up appoinment placed in discharge form...Breann Beebe RN - 04/18/18 14:23:07 Jim Sanchez set up appointment with [facility] endocrinology, CM cancelled Martin's appointment and faxed patient information over to [phone]...Breann Beebe RN - 04/18/18 10:02:59 CAREY spoke with Rianna acute coordinator at [facility]'s office, fax [phone]. Patient's requested date for start of care is in 2 weeks but clearing inspector as scheduling out for 2-3 months. Patient is on the cancellation list at Dr. Salazar's with a July appointment time. Information sent to above fax, appointment time placed in discharge form...Breann Beebe RN - 04/17/18 13:45:24 Per provider notes, patient scheduled for a DCCV today 04/17/18. [place] to stop all alcohol use. Thyroid work [...] Home plan at discharge, no needs noted...banner Documentation Status Complete : Yes Breann Ordaz, RN - 04/20/2018 9:41 EST Electronically signed by Jackie [facility] Conversion Enzyme Chemist Cerner at 06/19/2022 11:00 PM CDT documented in this encounter Plan of Treatment Not on file documented as of this encounter Visit Diagnoses Not on filedocumented in this encounter
--- OUTSIDE RECORDS SUMMARY | 2025-02-24 14:57 | XMS_ITS | Encounter Summary ---
Author Organization [employer] ([place], [place], [place], [place], [place]) Address [address] [place] [address] Care Team Providers Care Project Financial Analyst Name Role Phone Unavailable Primary Care Provider Unavailabl e Encounter Details Date Type Department Care Team (Late st Contact Info) Description 03/29/2018 Transcribed Document [facility] [place] Medicine [facility] [place] [address] ProviderMg MD [facility] [place] [address] Social History Tobacco Use Types Packs/Day Years Used Date Smoking Tobacco: Never Assessed Sex and Gender Information Value Date Recorded Sex Assigned at Not on file Legal Sex Male 1:09 PM CDT Gender Identity Not on file Sexual Orientation Not on file documented as of this encounter Miscellaneous Notes * Cerner Conversion Note - Historical ProviderMD - 03/29/2018 10:[address] [facility] PT Charges Entered On: 03/29/2018 [...]
--- OUTSIDE RECORDS SUMMARY | 2025-02-24 14:57 | XMS_ITS | Encounter Summary ---
Author Organization [employer] ([place], [place], [place], [place], [place]) Address [address] [place] [address] Care Team Providers Care Lighthouse Keeper Name Role Phone Unavailable Primary Care Provider Unavailabl e Encounter Details Date Type Department Care Team (Late st Contact Info) Description 06/26/2018 Transcribed Document [facility] [place] Family Medicine [facility] [place] [address] ProviderMg MD [facility] [place], [place] [address] Social History Tobacco Use Types Packs/Day Years [...] EDT Electronically signed by Morales Mejia Conversion Commercial Real Estate Associate Cerner at 06/19/2022 10:49 PM CDT documented in this encounter Plan of Treatment Not on file documented as of this encounter Visit Diagnoses Not on filedocumented in this encounter
--- OUTSIDE RECORDS SUMMARY | 2025-02-24 14:57 | XMS_ITS | Encounter Summary ---
Author Organization [employer] ([place], [place], [place], [place], [place]) Address [address] [place] [address] Care Team Providers Care Systems Analyst Developer Name Role Phone Unavailable Primary Care Provider Unavailabl e Encounter Details Date Type Department Care Team (Late st Contact Info) Description 03/29/2018 Transcribed Document [facility] [place] [facility] [place] [address] ProviderMg MD [facility] [place] [address] Social History Tobacco Use Types Packs/Day Years Used Date Smoking Tobacco: Never Assessed Sex and Gender Information Value Date Recorded Sex Assigned at Not on file Legal Sex Male 1:09 PM CDT Gender Identity Not on file Sexual Orientation Not on file documented as of this encounter Miscellaneous Notes * Cerner Conversion Note - Mg ProviderMD - 03/29/2018 1:21 PM RELIEF MANAGER [facility] [address], [place] [address] Patient Copy Patient Information: Name: JOSE PEARSON Current Date: 03/29/2018 13:21:46 : 1970 Patient Address: [address] [place] [id number] Patient Attending Physician: Primary Care Provider: HUMA YARBROUGH (REF)MD-INT Primary Care Provider Discharge Diagnosis: Atrial fibrillation; NICM (nonischemic cardiomyopathy) Weight on Admission: 236 lb, 8 oz Weight at Discharge: 237 lb, 4 oz Comment: Follow-up Instructions: With: Address: When: SO BURDICK [address] [place] [address] Business (1) Within 2 weeks [...] Discharge Instructions (if any): Final Medication List: [facility], [address] [place], [place] [id number], [phone] sotalol (sotalol 120 mg oral tablet) 1 [...] nasal (fluticasone 50 mcg/inh nasal spray) 1 [place](s) Nostrils Both Every Day. furosemide (Lasix 40 [...] Other treatments may include cardiac resynchronization therapy (EQUINE VET) or a left ventricular assist device (LVAD). [...] to manage stress. General instructions ??? Take jwep-ovb-ozlnpne and prescription medicines only as told by [...] 05/05/2005 Document Revised: 10/18/2016 Document Reviewed: 08/22/2016 ElseSphere ([employer] Inc.) Interactive Patient Education ? 2017 Door[employer] Inc. Atrial Fibrillation Atrial fibrillation is a [...] ??? Certain heart rhythm disorders, such as Vmyk-Ksnettzon-Pqqpq syndrome. Other causes include: ??? Pneumonia. ??? [...] 02/20/2006 Document Revised: 06/29/2016 Document Reviewed: 06/17/2015 [employer] Interactive Patient Education ? 2017 [employer] Inc. Medication Leaflets: sotalol (JS ta lol) [...] may report side effects to FDA at 7-859-LIS-0106. What other drugs will affect sotalol? Many [...] interact with sotalol. This includes prescription and edam-snr-vgejlll medicines, vitamins, and herbal products. Give a [...] to ensure that the information provided by Kived[employer]. ('gDecidetum') is accurate, up-to-date, and complete, but no guarantee is made to that effect. Drug information contained herein may be time sensitive. [employer] information has been compiled for use by healthcare practitioners and consumers in the [place] and therefore [employer] does not warrant that uses outside of the [place] are appropriate, unless specifically indicated otherwise. [employer] drug information does not endorse drugs, diagnose patients or recommend therapy. [employer] drug information is an informational resource designed [...] effective or appropriate for any given patient. [employer] does not assume any responsibility for any aspect of healthcare administered with the aid of information [employer] provides. The information contained herein is not intended to cover all possible uses, directions, precautions, warnings, drug interactions, allergic reactions, or adverse effects. If you have questions about the drugs you are taking, check with your doctor, nurse or pharmacist. Copyright 8945-3320 Kived[employer]. Version: .. Revision Date: 02/18/2014. CIGARETTE SMOKING: The facts are clear, cigarette smoking will shorten your life. Smoking can cause many illnesses along the way. As a healthcare provider, we recommend that you stop smoking. Assistance with quitting is available by contacting 1-631-PJIF-NOW. This is a free resource providing counseling, [...] Be sure to sign up for the J[employer] patient portal, which gives you 26/09 access to your medical information ??? including these discharge instructions ??? using your computer, smartphone, or tablet. Just go to [employer] to get started. Questions? Call . [facility] would like to thank you for allowing us to assist you with your healthcare needs. ANASTASIA Rich DENNIS PAUL, (or underwriting account representative) have received the above patient education materials/instructions and have verbalized understanding: Patient Signature _ Date/Time Patient Court Assistant Signature (if needed) Date/Time Clinician/Hospital Court Assistant Signature (if needed) Date/Time Electronically signed by Jackie, [facility] Conversion Skin Washer Cerner at 06/19/2022 11:05 PM CDT documented in this encounter Plan of Treatment Not on file documented as of this encounter Visit Diagnoses Not on filedocumented in this encounter
--- OUTSIDE RECORDS SUMMARY | 2025-02-24 14:57 | XMS_ITS | Encounter Summary ---
Author Organization [employer] ([place], [place], [place], [place], [place]) Address [address] [place] [address] Care Team Providers Care Dogman/Woman Name Role Phone Unavailable Primary Care Provider Unavailabl e Encounter Details Date Type Department Care Team (Late st Contact Info) Description 04/23/2018 Transcribed Document [facility] [place] [place] Family Medicine [facility] [place] [address] ProviderMg MD [facility] [place] [address] Social History Tobacco Use Types Packs/Day Years Used Date Smoking Tobacco: Never Assessed Sex and Gender Information Value Date Recorded Sex Assigned at Not on file Legal Sex Male 1:09 PM CDT Gender Identity Not on file Sexual Orientation Not on file documented as of this encounter Miscellaneous Notes * Cerner Conversion Note - Historical ProviderMD - 04/23/2018 11:02 AM CLIENT RELATIONSHIP EXECUTIVE [facility] Entered On: 04/23/2018 11:03 EST Performed On: 04/23/2018 11:02 EST by EDITH CHAVIS RN [facility] Pul[facility] Outpatient [facility] Phase 2 Cardiac Rehab Criteria Met : Heart failure (HF) Cardiac Outpatient Rehab Evaluation Comment : Order faxed to [facility] due to pts location. EDITH CHAVIS RN - 04/23/2018 11:02 EST documented in this encounter Plan of Treatment Not on file documented as of this encounter Visit Diagnoses Not on filedocumented in this encounter
--- OUTSIDE RECORDS SUMMARY | 2025-02-24 14:57 | XMS_ITS | Encounter Summary ---
Author Organization [facility] Address [address] [place] [address] Care Team Providers Care Shirt Ironer Supervisor Name Role Phone Herberth Perez MD Primary Care Provider [phone] Gracia Petersen BUS DISPATCHER INTERSTATE Unavailable [phone] Yunior Solorzano MD Unavailable [phone] Ross Baez DO Unavailable [phone] Edith Aleman RN Unavailable Unavailable Encounter Details Date Type Department Care Team (Latest Contact Info) Description 12/28/2024 Anticoagulation - Warfarin Visit [facility] [place] [address] [place] [address] Gracia Vizcarra, RN [facility] [address] [place] [address] LVAD (left ventricular assist device) present ([facility]) (Primary Dx); Anticoagulant long-term use Social [...] time in the past 12 m [facility], were you homeless or living in [...] drink first t janine in the morning (EYE-WORD PROCESSING MACHINE OPERATOR) to steady your nerves or [...] Description 04/22/2025 9:00 AM EST Ancillary Procedure [facility] [address] [place] [address] documented as of this encounter Goals Goal Patient Goal Type Associated Problems Recent Progress Patient-Stated? Author LVAD Short Term Goal General On track( 024 11:53 AM EDT) Yes Katrin Oviedo RN Note: - 07/04/23: Patient states he wants to attend a wedding in November in [place] LVAD Prop Setter Goal General On track( 024 11:53 AM [...] Blood Venous blood specimen / Unknown 12/27/2024 [facility] Provider POINT OF CARE TEST ENTER/SHERIF T ORDERABLES Final Result documented in this encounter Visit Diagnoses Diagnosis LVAD (left ventricular assist device) present ([facility])- Primary Anticoagulant long-term use Encounter for [...] documented as of this encounter Care Teams Shirt Ironer Supervisor Relationship Specialty Start Date End Date Herberth Perez MD [address] [place] [address] [place] [address] PCP - General 07/17/20 Gracia Petersen APRN [address] [place] [address] Nurse Practitioner Internal Medicine 08/06/20 Yunior Solorzano MD [address] [place] [address] Consulting Physician Gastroenterology 07/18/22 Ross Baez DO [address] [address] Surgeon Cardiothoracic Surgery 07/18/22 Edith Aleman, LACE AND TEXTILES RESTORER None VAD Coordinator 10/14/24 documented as of this encounter
--- OUTSIDE RECORDS SUMMARY | 2025-02-24 14:57 | XMS_ITS | Encounter Summary ---
Author Organization [employer] ([place], [place], [place], [place], [place]) Address [address] [place] [address] Care Team Providers Care Veneer Sander Name Role Phone Unavailable Primary Care Provider Unavailabl e Encounter Details Date Type Department Care Team (Late st Contact Info) Description 04/20/2018 Transcribed Document [facility] [place] Family Medicine [facility] [place] [address] ProviderMg MD [address] [place] [address] Social History Tobacco Use Types Packs/Day Years Used Date Smoking Tobacco: Never Assessed Sex and Gender Information Value Date Recorded Sex Assigned at Not on file Legal Sex Male 1:09 PM CDT Gender Identity Not on file Sexual Orientation Not on file documented as of this encounter Miscellaneous Notes * Cerner Conversion Note - Mg ProviderMD - 04/20/2018 1:34 PM SENIOR PROPERTY ACCOUNTANT [place] [address] [address] , [place] [address] Patient Copy Patient Information: Name: JOSE PEARSON Current Date: 04/20/2018 13:34:22 : 1970 Patient [address]: [address] [place] [id number] Patient Attending Physician: Primary Care Provider: HUMA YARBROUGH (REF)MD-INT Primary Care Provider Discharge Diagnosis: Cardiac rhythm disturbance; Hypotension; Scalp contusion; Syncope Weight on Admission: 229 lb, 0 oz Weight at Discharge: 229 lb, 7 oz Comment: Follow-up Instructions: With: Address: When: JONATAN ISABEL [address] [place] [address] [address] [place] [address] Business (1) In 17 days 05/07/2018 Comments: Office to call with appoint/instructions or you may need to call if you have not heard from them With: Address: When: KIM EDOUARD 1:45 PM Comments: follow for thyroid as we discussed. you have the appropriate address With: Address: When: [address] [place], [place] [id number] Business (1) Within 2 weeks Discharge Instructions: Diet after Discharge: Heart healthy diet Activity after Discharge: As tolerated Showering/Bathing: May shower Immunizations Documented During Stay: No Immunizations Found Heart Failure Discharge Instructions (if any): Stroke Related Discharge Instructions (if any): Warfarin Related Discharge Instructions (if any): Final Medication List: [facility] [address] [place], [place] [id number], [phone] dofetilide (Tikosyn 250 mcg oral capsule) 2 [...] nasal (fluticasone 50 mcg/inh nasal spray) 1 [place](s) Nostrils Both Every Day. furosemide (Lasix 40 [...] quickly after you eat. Medicines ??? Take kevz-xwk-sclzgje and prescription medicines only as told by [...] 05/17/2010 Document Revised: 11/08/2016 Document Reviewed: 11/08/2016 Elseunited healthcare practice solutions Interactive Patient Education ? 2017 Elsevier Inc. [...] This can help with dizziness. ??? Take zhdg-kdi-lthpjwt and prescription medicines only as told by [...] right away. Call your local emergency services (511 in the U.S.). Do not drive yourself [...] may report side effects to FDA at 2-261-VTC-6588. What other drugs will affect dofetilide? Other drugs may interact with dofetilide, including prescription and jmuu-dan-vxwbqyq medicines, vitamins, and herbal products. Tell each [...] to ensure that the information provided by [employer]. ('Multum') is accurate, up-to-date, and complete, but no guarantee is made to that effect. Drug information contained herein may be time sensitive. [employer] information has been compiled for use by healthcare practitioners and consumers in the [place] and therefore [employer] does not warrant that uses outside of the [place] are appropriate, unless specifically indicated otherwise. [employer] drug information does not endorse drugs, diagnose patients or recommend therapy. [employer] drug information is an informational resource designed [...] effective or appropriate for any given patient. [facility] does not assume any responsibility for any aspect of healthcare administered with the aid of information [facility] provides. The information contained herein is not intended to cover all possible uses, directions, precautions, warnings, drug interactions, allergic reactions, or adverse effects. If you have questions about the drugs you are taking, check with your doctor, nurse or pharmacist. Copyright 5322-4642 [employer]ox[employer] TechnologiesDepartment of [facility] Affairs [facility] [employer] & Receive[employer] Technology Solutions. Version: 4.01. Revision Date: 06/17/2015. CIGARETTE SMOKING: The facts are clear, cigarette smoking will shorten your life. Smoking can cause many illnesses along the way. As a healthcare provider, we recommend that you stop smoking. Assistance with quitting is available by contacting 3-050-ZFCK-NOW. This is a free resource providing counseling, [...] Be sure to sign up for the [employer] patient portal, which gives you 26/09 access to your medical information ??? including these discharge instructions ??? using your computer, smartphone, or tablet. Just go to [employer] to get started. Questions? Call . [facility] would like to thank you for allowing us to assist you with your healthcare needs. ANASTASIA Rich DENNIS PAUL, (or sales representative printing paper) have received the above patient education materials/instructions and have verbalized understanding: Patient Signature _ Date/Time Patient Policy Issue Clerk Signature (if needed) Date/Time Clinician/Hospital Policy Issue Clerk Signature (if needed) Date/Time Electronically signed by Morales Mejia Conversion Business Relationship Manager Cerner at 06/19/2022 11:02 PM CDT documented in this encounter Plan of Treatment Not on file documented as of this encounter Visit Diagnoses Not on filedocumented in this encounter
--- OUTSIDE RECORDS SUMMARY | 2025-02-24 14:57 | XMS_ITS | Encounter Summary ---
Author Organization [employer] ([place], [place], [place], [place], [place]) Address [address] [place] [address] Care Team Providers Care Union Contract Representative Name Role Phone Unavailable Primary Care Provider Unavailrodrick e Encounter Details Date Type Department Care Team (Late st Contact Info) Description 03/29/2018 Transcribed Document [facility] [place] [facility] [place] [address] ProviderMg MD [facility] [place] [address] Social History Tobacco Use Types Packs/Day Years Used Date Smoking Tobacco: Never Assessed Sex and Gender Information Value Date Recorded Sex Assigned at Not on file Legal Sex Male 1:09 PM CDT Gender Identity Not on file Sexual Orientation Not on file documented as of this encounter Miscellaneous Notes * Cerner Conversion Note - Mg ProviderMD - 03/29/2018 1:18 PM BRAND STRATEGIST Nursing Discharge Summary Entered On: 03/29/2018 13:19 [...]
--- OUTSIDE RECORDS SUMMARY | 2025-02-24 14:57 | XMS_ITS | Encounter Summary ---
Author Organization [facility] Address [address] [place] [address] Care Team Providers Care Marble Setter Name Role Phone Herberth Perez MD Primary Care Provider [phone] Gracia Petersen MAINTENANCE SHOP LABORER Unavailable [phone] Yunior Solorzano MD Unavailable [phone] Ross Baez DO Unavailable [phone] Edith Aleman RN Unavailable Unavailable Encounter [...] time in the past 12 m [facility], were you homeless or living in a [...] drink first t janine in the morning (EYE-INDUCTION FURNACE OPERATOR) to steady your nerves or [...] Description 04/22/2025 9:00 AM EST Ancillary Procedure [facility] [address] [place] [address] documented as of this encounter Goals Goal Patient Goal Type Associated Problems Recent Progress Patient-Stated? Author LVAD Short Term Goal General On track( 11:53 AM EDT) Yes Katrin Oviedo, RN Note: - 07/04/23: Patient states he wants to attend a wedding in November in [place] LVAD Laborer Drying Department Goal General On track( 024 11:53 AM [...] documented as of this encounter Care Teams Marble Setter Relationship Specialty Start Date End Date Herberth Perez MD [address] [place] [address] [place] [address] PCP - General 07/17/20 Gracia Petersen APRN [address] [place] [phone] Nurse Practitioner Internal Medicine 08/06/20 Yunior Solorzano MD [address] [place] [address] Consulting Physician Gastroenterology 07/18/22 Ross Baez DO [address] [address] Surgeon Cardiothoracic Surgery 07/18/22 Edith Aleman, RN MDS COORDINATOR None VAD Coordinator 10/14/24 documented as of this encounter
--- OUTSIDE RECORDS SUMMARY | 2025-02-24 14:57 | XMS_ITS | Encounter Summary ---
Author Organization [employer] ([place], [place], [place], [place], [place]) Address [address] [place] [address] Care Team Providers Care Ready Mix Truck Driver Name Role Phone Unavailable Primary Care Provider Unavailabl e Encounter Details Date Type Department Care Team (Late st Contact Info) Description 03/29/2018 Transcribed Document [facility] [place] [place] Family Medicine [facility] [place] [address] ProviderMg MD [facility] [place] [address] Social History Tobacco Use Types Packs/Day Years Used Date Smoking Tobacco: Never Assessed Sex and Gender Information Value Date Recorded Sex Assigned at Not on file Legal Sex Male 1:09 PM CDT Gender Identity Not on file Sexual Orientation Not on file documented as of this encounter Miscellaneous Notes * Cerner Conversion Note - Mg Ritchie MD - 03/29/2018 10:02 AM WOOD PATTERNMAKER DATE OF PROCEDURE: 03/29/2018 RIGHT HEART CATHETERIZATION INDICATIONS: Acute on chronic left systolic heart failure with acute hypoxic respiratory failure. PROCEDURE: The patient has history of nonischemic dilated cardiomyopathy and recently presented to us with worsening [place] Heart [employer] functional class III heart failure symptoms. DESCRIPTION OF PROCEDURE: Following an informed written consent, patient was brought to the cardiac catheterization laboratory where conscious sedation was performed with intravenous Versed and fentanyl for less than 23 minutes. The right groin was prepped and draped in usual sterile fashion and anesthetized with 1% xylocaine solution. Using a single wall puncture technique, an 8-Zambian side-port sheath was introduced into the right common femoral vein. Sheath aspirated and flushed with heparinized saline solution. An 8-Zambian [place] thermodilution catheter was advanced under continued fluoroscopic [...]
--- OUTSIDE RECORDS SUMMARY | 2025-02-24 14:57 | XMS_ITS | Encounter Summary ---
Author Organization [employer] ([place], [place], [place], [place], [place]) Address [address] [place] [address] Care Team Providers Care Fuel System Maintenance Supervisor Name Role Phone Unavailable Primary Care Provider Unavailabl e Encounter Details Date Type Department Care Team (Late st Contact Info) Description 04/20/2018 Transcribed Document [facility] [place] Family Medicine Replaced [facility] [place] [address] ProviderMg MD Replaced by [facility] [place], [place] [address] Social History Tobacco Use Types Packs/Day Years Used Date Smoking Tobacco: Never Assessed Sex and Gender Information Value Date Recorded Sex Assigned at Not on file Legal Sex Male 1:09 PM CDT Gender Identity Not on file Sexual Orientation Not on file documented as of this encounter Miscellaneous Notes * Cerner Conversion Note - Historical ProviderMD - 04/20/2018 1:07 PM CLAY DRY PRESS OPERATOR Discharge Instructions Entered On: 04/20/2018 13:08 EST [...]
--- OUTSIDE RECORDS SUMMARY | 2025-02-24 14:57 | XMS_ITS | Encounter Summary ---
Author Organization [employer] ([place], [place], [place], [place], [place]) Address [address] [place] [address] Care Team Providers Care Personnel Director Name Role Phone Unavailable Primary Care Provider Unavailabl e Encounter Details Date Type Department Care Team (Late st Contact Info) Description 04/19/2018 Transcribed Document [facility] [place] [facility] [place] [address] ProviderMg MD [facility], [facility] [place] [address] Social History Tobacco Use Types Packs/Day Years Used Date Smoking Tobacco: Never Assessed Sex and Gender Information Value Date Recorded Sex Assigned at Not on file Legal Sex Male 1:09 PM CDT Gender Identity Not on file Sexual Orientation Not on file documented as of this encounter Miscellaneous Notes * Cerner Conversion Note - Historical ProviderMD - 04/19/2018 5:00 PM RIM ROLLER SETTER Chart Check - Review Order Profile Entered On: 04/19/2018 15:07 EST Performed On: 04/19/2018 17:00 EST by Ana Montenegro RN Chart Check Chart Reviewed Date and Time : 04/19/2018 15:07 EST Powerplans Initiated/Discontinued as Appropriate : Yes All Active Orders Reviewed : Yes Ana Montenegro RN - 04/19/2018 15:07 EST Electronically signed by Jackie [facility] Conversion Pipe Line Inspector Cerner at 06/19/2022 11:12 PM CDT documented in this encounter Plan of Treatment Not on file documented as of this encounter Visit Diagnoses Not on filedocumented in this encounter
--- OUTSIDE RECORDS SUMMARY | 2025-02-24 14:57 | XMS_ITS | Encounter Summary ---
Author Organization [employer] ([place], [place], [place], [place], [place]) Address [address] [place] [address] Care Team Providers Care Needle Process Felt Goods Supervisor Name Role Phone Unavailable Primary Care Provider Unavailabl e Encounter Details Date Type Department Care Team (Late st Contact Info) Description 06/25/2018 Transcribed Document [facility] [place] [facility] [place] [address] ProviderMg MD [facility] [place], [place] [address] Social History Tobacco Use Types Packs/Day Years [...] Event : Report to Rim[facility] ANUSHA YATES RN - 06/25/2018 21:42 EDT documented in this encounter Plan of Treatment Not on file documented as of this encounter Visit Diagnoses Not on filedocumented in this encounter
--- OUTSIDE RECORDS SUMMARY | 2025-02-24 14:57 | XMS_ITS | Encounter Summary ---
Author Organization [employer] ([place], [place], [place], [place], [place]) Address [address] [place] [address] Care Team Providers Care Professor Of Psychiatry Name Role Phone Unavailable Primary Care Provider Unavailabl e Encounter Details Date Type Department Care Team (Late st Contact Info) Description 04/19/2018 Transcribed Document [facility] [place] [facility] [place] [address] ProviderMg MD [facility] [place] [address] Social History Tobacco Use Types Packs/Day Years Used Date Smoking Tobacco: Never Assessed Sex and Gender Information Value Date Recorded Sex Assigned at Not on file Legal Sex Male 1:09 PM CDT Gender Identity Not on file Sexual Orientation Not on file documented as of this encounter Miscellaneous Notes * Cerner Conversion Note - Mg Ritchie MD - 04/19/2018 3:53 PM LEATHER SPLITTER DATE OF STUDY: 04/17/2018 SYNCHRONOUS DC CARDIOVERSION [...] Leydi Hobbs M.D. Electronically signed by Jackie [facility] Conversion Assembler Molded Frames Cerner at 06/19/2022 11:14 PM CDT documented in this encounter Plan of Treatment Not on file documented as of this encounter Visit Diagnoses Not on filedocumented in this encounter
--- OUTSIDE RECORDS SUMMARY | 2025-02-24 14:57 | XMS_ITS | Encounter Summary ---
Author Organization [employer] ([place], [place], [place], [place], [place]) Address [address] [place] [address] Care Team Providers Care Executive Legal Secretary Name Role Phone Unavailable Primary Care Provider Unavailabl e Encounter Details Date Type Department Care Team (Late st Contact Info) Description 06/26/2018 Transcribed Document [facility] [place] [address] ProviderMg MD [address] [place] [address] Social History Tobacco Use Types [...] Follow these instructions at home: ??? Take jltk-dxm-lmlbouu and prescription medicines only as told by [...] including vitamins, herbs, eye drops, creams, and dfcs-rjx-jxseauv medicines. ??? Any problems you or family [...] 08/10/2010 Document Revised: 09/23/2016 Document Reviewed: 08/29/2016 [employer]ed[employer] Interactive Patient Education ? 2017 [employer] documented in this encounter Plan of Treatment Not on file documented as of this encounter Visit Diagnoses Not on filedocumented in this encounter
--- OUTSIDE RECORDS SUMMARY | 2025-02-24 14:57 | XMS_ITS | Encounter Summary ---
Author Organization [employer] ([place], [place], [place], [place], [place]) Address [address] [place] [address] Care Team Providers Care Practice Or Student Teacher Name Role Phone Unavailable Primary Care Provider Unavailabl e Encounter Details Date Type Department Care Team (Late st Contact Info) Description 04/20/2018 Transcribed Document [facility] [place] Family Medicine [facility] [place] [address] ProviderMg MD [facility] [place], [place] [address] Social History Tobacco Use Types Packs/Day Years Used Date Smoking Tobacco: Never Assessed Sex and Gender Information Value Date Recorded Sex Assigned at Not on file Legal Sex Male 1:09 PM CDT Gender Identity Not on file Sexual Orientation Not on file documented as of this encounter Miscellaneous Notes * Cerner Conversion Note - Historical ProviderMD - 04/20/2018 5:00 AM MAT INSPECTOR Height and Weight, Routine Entered On: 04/20/2018 6:00 EST Performed On: 04/20/2018 5:00 EST by Polly Renteria Care [facility] Unit Coord Height and Weight, Routine Routine Weight Source : Standing scale Routine Weight Entry Format : Hardeman Routine Weight, Pounds : 229 lb Routine Weight, Ounces : 7 oz Routine Weight Calculation : 104.29 kg Height Source : Stated Height Entry Format : Hardeman Height, Feet : 6 ft Height, Inches : 0 Inch Clinical Height : 182.88 cm Body Surface Area (BSA), Routine : 2.26 m2 Body Mass Index (BMI), Routine : 31.18 kg/m2 Polly Renteria [facility] Coord - 04/20/2018 6:00 EST documented in this encounter Plan of Treatment Not on file documented as of this encounter Visit Diagnoses Not on filedocumented in this encounter
--- OUTSIDE RECORDS SUMMARY | 2025-02-24 14:57 | XMS_ITS | Encounter Summary ---
Author Organization [employer] ([place], [place], [place], [place], [place]) Address [address] [place] [address] Care Team Providers Care Finance Lead Name Role Phone Unavailable Primary Care Provider Unavailabl e Encounter Details Date Type Department Care Team (Late st Contact Info) Description 04/20/2018 Transcribed Document [facility] [place] [facility] [place] [address] ProviderMg MD [facility] [place] [address] Social History Tobacco Use Types Packs/Day Years Used Date Smoking Tobacco: Never Assessed Sex and Gender Information Value Date Recorded Sex Assigned at Not on file Legal Sex Male 1:09 PM CDT Gender Identity Not on file Sexual Orientation Not on file documented as of this encounter Miscellaneous Notes * Cerner Conversion Note - Mg ProviderMD - 04/20/2018 11:41 AM BELTING AND WEBBING INSPECTOR Patient: JOSE PEARSON Age: 47 years Sex: [...] Gastrointestinal: Normal bowel sounds. Integumentary: Warm, Dry, [place]. Results Review General results HYROID ULTRASOUND HISTORY: [...]
--- OUTSIDE RECORDS SUMMARY | 2025-02-24 14:57 | XMS_ITS | Encounter Summary ---
Author Organization [employer] ([place], [place], [place], [place], [place]) Address [address] [place] [address] Care Team Providers Care Postie Name Role Phone Unavailable Primary Care Provider Unavailabl e Encounter Details Date Type Department Care Team (Late st Contact Info) Description 03/29/2018 Transcribed Document [facility] [place] Family Medicine [facility] [place] [address] ProviderMg MD [facility] [place], [place] [address] Social History Tobacco Use Types Packs/Day Years Used Date Smoking Tobacco: Never Assessed Sex and Gender Information Value Date Recorded Sex Assigned at Not on file Legal Sex Male 1:09 PM CDT Gender Identity Not on file Sexual Orientation Not on file documented as of this encounter Miscellaneous Notes * Cerner Conversion Note - Mg ProviderMD - 03/29/2018 10:57 AM INSTRUMENTAL MUSIC TEACHER Patient: JOSE PEARSON Age: 47 years Sex: [...] the A. fib. Electronically signed by Jackie [facility] Conversion Commercial Loan Underwriter Cerner at 06/19/2022 11:01 PM CDT documented in this encounter Plan of Treatment Not on file documented as of this encounter Visit Diagnoses Not on filedocumented in this encounter
--- OUTSIDE RECORDS SUMMARY | 2025-02-24 14:57 | XMS_ITS | Encounter Summary ---
Author Organization [facility] Address [address] [place] [address] Care Team Providers Care Machine Operations Supervisor Name Role Phone Herberth Perez MD Primary Care Provider [phone] Gracia Petersen ARTIFICIAL LOG MACHINE OPERATOR Unavailable [phone] Yunior Solorzano MD Unavailable [phone] Ross Baez DO Unavailable [phone] Edith Aleman RN Unavailable Unavailable Encounter Details Date Type Department Care Team (Late st Contact Info) Description 01/07/2025 Telephone [facility] [place] [address] [facility] [place] [address] Melisa Vazquez MD [address] [place] [address] Social History Tobacco Use Types [...] first t janine in the morning (EYE-CERTIFIED NUCLEAR MEDICINE TECHNOLOGIST) to steady your nerves or to get rid of a hangover? 0 09/19/2021 CAGE Questionnaire Score 0 022 Utilities Answer Date Recorded In the past 12 months has th e [employer], gas, oil, or water [email or web address] threatened to shut off services in your [...] Due Date: 01/07/25 Send To: [facility]: [phone] Best contact number: [phone] Lyn Optimal time of day to reach caller: ANYTIME Additional comments/information from caller: Caller has previously faxed the order to [phone] and has re-faxed it to [phone] Note: Please do not reply to this [...] Description 04/22/2025 9:00 AM EST Ancillary Procedure [facility] [address] [place] [address] documented as of this encounter Goals Goal Patient Goal Type Associated Problems Recent Progress Patient-Stated? Author LVAD Short Term Goal General On track( 11:53 AM EDT) Yes Katrin Oviedo, RN Note: - 07/04/23: Patient states he wants to attend a wedding in November in [place] LVAD Correction Goal General On track( 024 11:53 AM [...] as of this encounter Care Teams Machine Operations Supervisor Relationship Specialty Start Date End Date Herberth Perez MD [address] [place] [address] PCP - General 07/17/20 Gracia Petersen APRN [address] [place] [address] Nurse Practitioner Internal Medicine 08/06/20 Yunior Solorzano MD [address] [place] [address] Consulting Physician Gastroenterology 07/18/22 Ross Baez DO [address] [address] Surgeon Cardiothoracic Surgery 07/18/22 Edith Aleman, POINTER HELPER None VAD Coordinator 10/14/24 documented as of this encounter
--- OUTSIDE RECORDS SUMMARY | 2025-02-24 14:57 | XMS_ITS | Encounter Summary ---
Author Organization [employer] ([place], [place], [place], [place], [place]) Address [address] [place] [address] Care Team Providers Care Compounder Name Role Phone Unavailable Primary Care Provider Unavailabl e Encounter Details Date Type Department Care Team (Late st Contact Info) Description 03/29/2018 Transcribed Document [facility] [place] [facility] [place] [address] ProviderMg MD [facility] [place] [address] Social History Tobacco Use Types Packs/Day Years Used Date Smoking Tobacco: Never Assessed Sex and Gender Information Value Date Recorded Sex Assigned at Not on file Legal Sex Male 1:09 PM CDT Gender Identity Not on file Sexual Orientation Not on file documented as of this encounter Miscellaneous Notes * Cerner Conversion Note - Mg ProviderMD - 03/29/2018 1:22 PM NOISE ABATEMENT ENGINEER [facility] [address], [place] [address] Patient Copy Patient Information: Name: JOSE PEARSON Current Date: 03/29/2018 13:22:49 : 1970 Patient Address: [address] [place] [id number] Patient Attending Physician: Primary Care Provider: HUMA YARBROUGH (REF)MD-INT Primary Care Provider Discharge Diagnosis: Atrial fibrillation; NICM (nonischemic cardiomyopathy) Weight on Admission: 236 lb, 8 oz Weight at Discharge: 237 lb, 4 oz Comment: Follow-up Instructions: With: Address: When: [place] [facility] [address] [place] [address] Business (1) Within 2 weeks [...] Final Medication List: [facility], [address] [place], [place] [id number], [phone] sotalol (sotalol 120 mg oral tablet) 1 [...] nasal (fluticasone 50 mcg/inh nasal spray) 1 Modoc(s) Nostrils Both Every Day. furosemide (Lasix 40 [...] Other treatments may include cardiac resynchronization therapy (CARRIER OPERATOR) or a left ventricular assist device (LVAD). [...] to manage stress. General instructions ??? Take quyq-tqe-robqaln and prescription medicines only as told by [...] 05/05/2005 Document Revised: 10/18/2016 Document Reviewed: 08/22/2016 ElseMediaPass Interactive Patient Education ? 2017 [employer] Atrial Fibrillation Atrial fibrillation is a [...] ??? Certain heart rhythm disorders, such as Nggu-Kcdivmkie-Eurlu syndrome. Other causes include: ??? Pneumonia. ??? [...] 02/20/2006 Document Revised: 06/29/2016 Document Reviewed: 06/17/2015 [employer] Interactive Patient Education ? 2017 [employer] Medication Leaflets: sotalol (JS ta lol) [...] may report side effects to FDA at 3-659-NTM-3815. What other drugs will affect sotalol? Many [...] interact with sotalol. This includes prescription and wvcl-jca-pihbiqu medicines, vitamins, and herbal products. Give a [...] to ensure that the information provided by [employer]. ('Most[employer]') is accurate, up-to-date, and complete, but no guarantee is made to that effect. Drug information contained herein may be time sensitive. [employer] information has been compiled for use by healthcare practitioners and consumers in the [place] and therefore [employer] does not warrant that uses outside of the [place] are appropriate, unless specifically indicated otherwise. [employer] drug information does not endorse drugs, diagnose patients or recommend therapy. [employer] drug information is an informational resource designed [...] effective or appropriate for any given patient. [employer] does not assume any responsibility for any aspect of healthcare administered with the aid of information [employer] provides. The information contained herein is not intended to cover all possible uses, directions, precautions, warnings, drug interactions, allergic reactions, or adverse effects. If you have questions about the drugs you are taking, check with your doctor, nurse or pharmacist. Copyright 1196-9448 [employer]. Version: .. Revision Date: 02/18/2014. CIGARETTE SMOKING: The facts are clear, cigarette smoking will shorten your life. Smoking can cause many illnesses along the way. As a healthcare provider, we recommend that you stop smoking. Assistance with quitting is available by contacting 3-759-XORW-NOW. This is a free resource providing counseling, [...] Be sure to sign up for the [employer] patient portal, which gives you 26/09 access to your medical information ??? including these discharge instructions ??? using your computer, smartphone, or tablet. Just go to [employer] to get started. Questions? Call . [facility] would like to thank you for allowing us to assist you with your healthcare needs. ANASTASIA Rich DENNIS PAUL, (or employment program representative) have received the above patient education materials/instructions and have verbalized understanding: Patient Signature _ Date/Time Patient Barber Or Beauty Shop Manager Signature (if needed) Date/Time Clinician/Hospital Barber Or Beauty Shop Manager Signature (if needed) Date/Time Electronically signed by Jackie, [facility] Conversion Watch And Clock Repair Clerk Cerner at 06/19/2022 11:12 PM CDT documented in this encounter Plan of Treatment Not on file documented as of this encounter Visit Diagnoses Not on filedocumented in this encounter
--- OUTSIDE RECORDS SUMMARY | 2025-02-24 14:57 | XMS_ITS | Encounter Summary ---
Author Organization [facility] Address [address] [place] [address] Care Team Providers Care Hearth Feeder Name Role Phone Herberth Perez MD Primary Care Provider [phone] Gracia Petersen CLEANING LABORER Unavailable [phone] Yunior Solorzano MD Unavailable [phone] Ross Baez DO Unavailable [phone] Edith Aleman RN Unavailable Unavailable Encounter Details Date Type Department Care Team (Latest Contact Info) Description 01/06/2025 Anticoagulation - Warfarin Visit [facility] [place] Deputy [address] [place] [address] Gracia Vizcarra, RN [facility] [address] [place] [address] LVAD (left ventricular assist device) present ([facility]) (Primary Dx); Anticoagulant long-term use Social History [...] [facility], were you [facility] or living [...] drink first t janine in the morning (EYE-CHUCKING MACHINE SET UP OPERATOR TOOL) to steady your nerves or to get [...] Description 04/22/2025 9:00 AM EST Ancillary Procedure [facility] [place] [facility] [address] [place] [address] documented as of this encounter Goals Goal Patient Goal Type Associated Problems Recent Progress Patient-Stated? Author LVAD Short Term Goal General On track( 024 11:53 AM EDT) Yes Katrin Oviedo RN Note: - 07/04/23: Patient states he wants to attend a wedding in November in [place] LVAD Social Media Specialist Goal General On track( 024 11:53 [...] Blood Venous blood specimen / Unknown 01/05/2025 [facility] Provider POINT OF CARE TEST ENTER/SHERIF T ORDERABLES Final Result documented in this encounter Visit Diagnoses Diagnosis LVAD (left ventricular assist device) present ([facility])- Primary Anticoagulant long-term use Encounter for long-term [...] documented as of this encounter Care Teams Hearth Feeder Relationship Specialty Start Date End Date Herberth Perez MD [address] [place] [address] [place] [address] PCP - General 07/17/20 Gracia Petersen APRN [address] [place] [address] Nurse Practitioner Internal Medicine 08/06/20 Yunior Solorzano MD [address] [place] [address] Consulting Physician Gastroenterology 07/18/22 Ross Baez DO [address] [address] Surgeon Cardiothoracic Surgery 07/18/22 Edith Aleman, RADIO HOST None VAD Coordinator 10/14/24 documented as of this encounter
--- OUTSIDE RECORDS SUMMARY | 2025-02-24 14:57 | XMS_ITS | Encounter Summary ---
Author Organization [employer] ([place], [place], [place], [place], [place]) Address [address] [place] [address] Care Team Providers Care Intelligence Consultant Name Role Phone Unavailable Primary Care Provider Unavailabl e Encounter Details Date Type Department Care Team (Late st Contact Info) Description 03/29/2018 Transcribed Document [facility] [place] [facility] [place] [address] ProviderMg MD [facility] [place] [address] Social History Tobacco Use Types Packs/Day Years Used Date Smoking Tobacco: Never Assessed Sex and Gender Information Value Date Recorded Sex Assigned at Not on file Legal Sex Male 1:09 PM CDT Gender Identity Not on file Sexual Orientation Not on file documented as of this encounter Miscellaneous Notes * Cerner Conversion Note - Historical ProviderMD - 03/29/2018 5:00 AM NON FERROUS MATERIAL HANDLER Height and Weight, Routine Entered On: 03/29/2018 5:56 EST Performed On: 03/29/2018 5:00 EST by Josesito Black, [facility] Unit Coord Height and Weight, Routine Routine Weight Source : Standing scale Routine Weight Entry Format : Ponce Routine Weight, Pounds : 237 lb Routine Weight, Ounces : 4 oz Routine Weight Calculation : 107.84 kg Height Source : Stated Height Entry Format : Ponce Height, Feet : 6 ft Height, Inches : 0 Inch Clinical Height : 182.88 cm Body Surface Area (BSA), Routine : 2.29 m2 Body Mass Index (BMI), Routine : 32.24 kg/m2 [facility]ito [facility], [facility] - 03/29/2018 5:55 EST Electronically signed by Jackie [facility] Conversion Lead Technologist In Cytogenetics Cerner at 06/19/2022 11:12 PM CDT documented in this encounter Plan of Treatment Not on file documented as of this encounter Visit Diagnoses Not on filedocumented in this encounter
--- OUTSIDE RECORDS SUMMARY | 2025-02-24 14:57 | XMS_ITS | Encounter Summary ---
Author Organization [employer] ([place], [place], [place], [place], [place]) Address [address] [place] [address] Care Team Providers Care Costumer Name Role Phone Unavailable Primary Care Provider Unavailabl e Encounter Details Date Type Department Care Team (Late st Contact Info) Description 03/29/2018 Transcribed Document [facility] [place] Family Medicine [address] [place] [address] ProviderMg MD [facility] [place] [address] Social History Tobacco Use Types Packs/Day Years Used Date Smoking Tobacco: Never Assessed Sex and Gender Information Value Date Recorded Sex Assigned at Not on file Legal Sex Male 1:09 PM CDT Gender Identity Not on file Sexual Orientation Not on file documented as of this encounter Miscellaneous Notes * Cerner Conversion Note - Historical ProviderMD - 03/29/2018 10:29 AM GENETICS TEACHER Therapy Screen, OT Entered On: 03/29/2018 10:35 [...]
--- OUTSIDE RECORDS SUMMARY | 2025-02-24 14:57 | XMS_ITS | Encounter Summary ---
Author Organization [facility] Address [address] [place] [address] Care Team Providers Care Telemarketer Name Role Phone Herberth Perez MD Primary Care Provider [phone] Gracia Petersen FARMWORKER POULTRY Unavailable [phone] Yunior Solorzano MD Unavailable [phone] Ross Baez DO Unavailable [phone] Edith Aleman RN Unavailable Unavailable Reason for Visit * Reason Onset Date Comments HCN - Patient Message 12/17/2024 Encounter Details Date Type Department Care Team (Late st Contact Info) Description 12/17/2024 Telephone [facility] [place] [address] [place] [address] Real Mclaughlin MD [address] [place] [address] HCN - Patient Message Social [...] drink first t janine in the morning (EYE-JOURNALISM PROFESSOR) to steady your nerves or to get [...] PM EDT Clinical Concern/Question Reason for Call: [employer] calling in reference to paperwork that was faxed to Dr. Mclaughlin aboutplan of treatment, they need paper work signed an faxed back. #[phone]. Please complete and fax back, if there are any issues please call Ashely at the # below. Best contact number: Other: Valier- [phone] ext [phone] Optimal time of day to [...] will receive notification of the communication/outcome via [employer] documented in this encounter Plan of Treatment Upcoming Encounters Date Type Department Care Team (Late st Contact Info) Description 04/22/2025 9:00 AM EST Ancillary Procedure [facility] [place] [facility] [address] [place] [address] documented as of this encounter Goals Goal Patient Goal Type Associated Problems Recent Progress Patient-Stated? Author LVAD Short Term Goal General On track( 11:53 AM EDT) Yes Katrin Oviedo, RN Note: - 07/04/23: Patient states he wants to attend a wedding in November in [place] LVAD Desk Attendant Goal General On track( 11:53 AM [...] documented as of this encounter Care Teams Telemarketer Relationship Specialty Start Date End Date Herberth Perez MD [address] [place] [address] [place] [address] PCP - General 07/17/20 Gracia Petersen APRN [address] [place] [id number] Nurse Practitioner Internal Medicine 08/06/20 Yunior Solorzano MD [address] [place] [address] Consulting Physician Gastroenterology 07/18/22 Ross Baez, DO [address] [place] [address] Surgeon Cardiothoracic Surgery 07/18/22 Edith Aleman, FINE JEWELRY SALES ASSOCIATE None VAD Coordinator 10/14/24 documented as of this encounter
--- OUTSIDE RECORDS SUMMARY | 2025-02-24 14:57 | XMS_ITS | Encounter Summary ---
Author Organization [facility] Address [address] [place] [address] Care Team Providers Care Rn Oncology Name Role Phone Herberth Perez MD Primary Care Provider [phone] Gracia Petersen PELLETIZER Unavailable [phone] Yunior Solorzano MD Unavailable [phone] Ross Baez DO Unavailable [phone] Edith Aleman RN Unavailable Unavailable Reason for Visit * Reason Onset Date Comments Patient Aids requesting office notes 12/30/2024 Encounter Details Date Type Department Care Team (Late st Contact Info) Description 12/30/2024 Telephone [facility] [place] [facility] [address] [facility] [place] [address] Melisa Vazquez MD [address] [place] [address] Patient Aids requesting office notes [...] drink first t janine in the morning (EYE-COFFEE SAMPLER) to steady your nerves or to get [...] optimal time of day to reach caller: [phone] Note: Please do not reply to this [...] Description 04/22/2025 9:00 AM EST Ancillary Procedure [facility] [place] [address] [place] [address] documented as of this encounter Goals Goal Patient Goal Type Associated Problems Recent Progress Patient-Stated? Author LVAD Short Term Goal General On track( 11:53 AM EDT) Yes Katrin Oviedo, RN Note: - 07/04/23: Patient states he wants to attend a wedding in November in [place] LVAD Band Singer Goal General On track( 11:53 AM EDT) [...] documented as of this encounter Care Teams Rn Oncology Relationship Specialty Start Date End Date Herberth Perez MD [address] [place] [address] PCP - General 07/17/20 Gracia Petersen APRN [address] [place] [address] Nurse Practitioner Internal Medicine 08/06/20 Yunior Solorzano MD [address] [place] [address] Consulting Physician Gastroenterology 07/18/22 Ross Baez, [address] [place] [address] Surgeon Cardiothoracic Surgery 07/18/22 Edith Aleman, MACHINE TRIMMER None VAD Coordinator 10/14/24 documented as of this encounter
--- OUTSIDE RECORDS SUMMARY | 2025-02-24 14:57 | XMS_ITS | Encounter Summary ---
Author Organization [employer] ([place], [place], [place], [place], [place]) Address [address] [place] [address] Care Team Providers Care Computer Systems Hardware Analyst Name Role Phone Unavailable Primary Care Provider Unavailabl e Encounter Details Date Type Department Care Team (Late st Contact Info) Description 04/18/2018 Transcribed Document [facility] [place] [facility] [place] [address] ProviderMg MD [address] [place] [address] Social History Tobacco Use Types Packs/Day Years Used Date Smoking Tobacco: Never Assessed Sex and Gender Information Value Date Recorded Sex Assigned at Not on file Legal Sex Male 1:09 PM CDT Gender Identity Not on file Sexual Orientation Not on file documented as of this encounter Miscellaneous Notes * Cerner Conversion Note - Mg ProviderMD - 04/18/2018 9:58 AM CHEF TEACHER [address] , [place] [id number] Patient Copy Patient Information: Name: JOSE PEARSON Current Date: 04/18/2018 09:58:44 : 1970 Patient Address: [address] [place] [id number] Patient Attending Physician: KATY FRIAS MD-CAR Primary Care Provider: HUMA YARBROUGH (REF)MD-VENKAT Primary Care Provider Discharge Diagnosis: Cardiac rhythm disturbance; Hypotension; Scalp contusion; Syncope Weight on Admission: 229 lb, 0 oz Weight at Discharge: 229 lb, 2 oz Comment: Follow-up Instructions: With: Address: When: [facility] [address] [address] , [address] [place] [address] Business (1) 2:00 PM Comments: Appointment has [...] nasal (fluticasone 50 mcg/inh nasal spray) 1 [place](s) Nostrils Both Every Day. furosemide (Lasix 40 [...] may report side effects to FDA at 5-520-ZKS-6243. What other drugs will affect dofetilide? Other drugs may interact with dofetilide, including prescription and yokx-mie-znbtqpd medicines, vitamins, and herbal products. Tell each [...] to ensure that the information provided by [employer]. ('[employer]') is accurate, up-to-date, and complete, but no guarantee is made to that effect. Drug information contained herein may be time sensitive. [employer] information has been compiled for use by healthcare practitioners and consumers in the [place] and therefore [employer] does not warrant that uses outside of the [place] are appropriate, unless specifically indicated otherwise. [employer]'s drug information does not endorse drugs, diagnose patients or recommend therapy. [employer] drug information is an informational resource designed [...] effective or appropriate for any given patient. [employer] does not assume any responsibility for any aspect of healthcare administered with the aid of information [employer] provides. The information contained herein is not intended to cover all possible uses, directions, precautions, warnings, drug interactions, allergic reactions, or adverse effects. If you have questions about the drugs you are taking, check with your doctor, nurse or pharmacist. Copyright 2159-6507 [employer]. Version: 4.01. Revision Date: 06/17/2015. CIGARETTE SMOKING: The facts are clear, cigarette smoking will shorten your life. Smoking can cause many illnesses along the way. As a healthcare provider, we recommend that you stop smoking. Assistance with quitting is available by contacting 5-169-RYWU-NOW. This is a free resource providing counseling, [...] Be sure to sign up for the [facility] patient portal, which gives you 26/09 access to your medical information ??? including these discharge instructions ??? using your computer, smartphone, or tablet. Just go to Instabug to get started. Questions? Call . [facility] would like to thank you for allowing us to assist you with your healthcare needs. ANASTASIA Rich DENNIS PAUL, (or computer help desk representative) have received the above patient education materials/instructions and have verbalized understanding: Patient Signature _ Date/Time Patient Client Liaison Signature (if needed) Date/Time Clinician/Hospital Client Liaison Signature (if needed) Date/Time Electronically signed by Jackie, [facility] Conversion Gravel Machine Operator Cerner at 06/19/2022 11:14 PM CDT documented in this encounter Plan of Treatment Not on file documented as of this encounter Visit Diagnoses Not on filedocumented in this encounter
--- OUTSIDE RECORDS SUMMARY | 2025-02-24 14:57 | XMS_ITS | Encounter Summary ---
Author Organization [employer] ([place], [place], [place], [place], [place]) Address [address] [place] [address] Care Team Providers Care Space Sciences Director Name Role Phone Unavailable Primary Care Provider Unavailabl e Encounter Details Date Type Department Care Team (Late st Contact Info) Description 03/29/2018 Transcribed Document [facility] [place] Family Medicine [address] [place] [address] [facility] [place] [address] Social History Tobacco Use Types Packs/Day Years Used Date Smoking Tobacco: Never Assessed Sex and Gender Information Value Date Recorded Sex Assigned at Not on file Legal Sex Male 1:09 PM CDT Gender Identity Not on file Sexual Orientation Not on file documented as of this encounter Miscellaneous Notes * Cerner Conversion Note - Historical ProviderMD - 03/29/2018 10:28 AM EVAPORATOR SUPERVISOR Therapy Screen, PT Entered On: 03/29/2018 10:37 [...]
--- OUTSIDE RECORDS SUMMARY | 2025-02-24 14:57 | XMS_ITS | Encounter Summary ---
Author Organization [employer] ([place], [place], [place], [place], [place]) Address [address] [place] [address] Care Team Providers Care Book Sewing Machine Operator Name Role Phone Unavailable Primary Care Provider Stefan pond Encounter Details Date Type Department Care Team (Late st Contact Info) Description 04/14/2018 Transcribed Document [facility] [address] [place] [address] Social History Tobacco Use Types Packs/Day Years Used Date Smoking Tobacco: Never Assessed Sex and Gender Information Value Date Recorded Sex Assigned at Not on file Legal Sex Male 1:09 PM CDT Gender Identity Not on file Sexual Orientation Not on file documented as of this encounter Miscellaneous Notes * Cerner Conversion Note - Mg ProviderMD - 04/14/2018 9:31 PM EXPERIMENTAL MACHINIST Admission History, Adult Entered On: 04/14/2018 23:19 [...] Ambulatory Legal Guardian : Spouse Support Person/Patient Tree Surgeon : Yes Support Person/Pt Rep Name : Deidre Pearson-- Support Person/Pt Rep Contact Information : [phone] Want Family/Rep/Phys Notified of Admit : No Emergency Contact #1 : Deidre Pearson Emergency Contact #1 Phone Number : [phone] Emergency Contact #1 Relationship : Emergency Contact #2 : NA Emergency Contact #2 Phone Number : NA Emergency Contact #2 Relationship : NA Chief Complaint : Pacemaker fired yesterday, states chest feels funny . reports + LOC x 30 sec. Primary Language : Danish Preferred Communication Mode : Verbal Communication Barrier [...] Scale Risk Level : 0-24 Low Risk S[place]y Fall Interventions : Adequate lighting, Assistive devices [...] Source : Stated Height Entry Format : [place] Height, Feet : 6 ft(Converted to: 183 cm, 72 Inch) Height, Inches : 0 Inch(Converted to: 0 ft 0 Inch, 0.00 cm) Clinical Height : 182.88 cm Weight Source : Standing scale Weight Entry Format : [place] Clinical Dosing Weight : 104.23 kg Weight, Pounds : 229 lb Weight, Ounces : 5 oz Body Surface Area (BSA) : 2.26 m2 Body Mass Index : 31.2 kg/m2 (HI) [place] Body Weight : 77 kg Caridad Clements [...]
--- OUTSIDE RECORDS SUMMARY | 2025-02-24 14:57 | XMS_ITS | Encounter Summary ---
Author Organization [employer] ([place], [place], [place], [place], [place]) Address [address] [place] [address] Care Team Providers Care Special Agent Group Insurance Name Role Phone Unavailable Primary Care Provider Unavailabl e Encounter Details Date Type Department Care Team (Late st Contact Info) Description 04/20/2018 Transcribed Document [facility] [place] [facility] [place] [address] ProviderMg [place] [address] Social History Tobacco Use Types Packs/Day Years Used Date Smoking Tobacco: Never Assessed Sex and Gender Information Value Date Recorded Sex Assigned at Not on file Legal Sex Male 1:09 PM CDT Gender Identity Not on file Sexual Orientation Not on file documented as of this encounter Miscellaneous Notes * Cerner Conversion Note - Historical ProviderMD - 04/20/2018 5:00 AM TELEPHONE MECHANIC Chart Check - Review Order Profile Entered On: 04/20/2018 5:45 EST Performed On: 04/20/2018 5:00 EST by JB GUTIERREZ RN Chart Check Chart Reviewed Date and Time : 04/20/2018 5:45 EST Powerplans Initiated/Discontinued as Appropriate : Yes All Active Orders Reviewed : Yes JB GUTIERREZ RN - 04/20/2018 5:45 EST Electronically signed by Jackie [facility] Conversion Resolution Rep Cerner at 06/19/2022 11:09 PM CDT documented in this encounter Plan of Treatment Not on file documented as of this encounter Visit Diagnoses Not on filedocumented in this encounter
--- OUTSIDE RECORDS SUMMARY | 2025-02-24 14:58 | XMS_ITS | Encounter Summary ---
Author Organization [employer] ([place], [place], [place], [place], [place]) Address [address] [place] [address] Care Team Providers Care Nougat Cutter Machine Name Role Phone Unavailable Primary Care Provider Unavailabl e Encounter Details Date Type Department Care Team (Late st Contact Info) Description 04/24/2018 Transcribed Document [facility] [place] [facility] [place] [address] ProviderMg MD [facility] [address] Social History Tobacco Use Types Packs/Day Years Used Date Smoking Tobacco: Never Assessed Sex and Gender Information Value Date Recorded Sex Assigned at Not on file Legal Sex Male 1:09 PM CDT Gender Identity Not on file Sexual Orientation Not on file documented as of this encounter Miscellaneous Notes * Cerner Conversion Note - Mg Ritchie MD - 04/24/2018 10:35 AM DISK SANDER Patient: JOSE PEARSON Age: 47 years Sex: [...] Refill(s) fluticasone 50 mcg/inh nasal spray: 1 [place], Nostrils Both, Daily, 0 Refill(s) montelukast 10 [...] Bedtime fluticasone 50 mcg/inh nasal spray 1 [place], Nostrils Both, Daily Lasix 40 mg oral [...] Problem list: Medical angina / SNOMED CT 118963603 / Confirmed At risk for sleep apnea / IMO 89675691 / Confirmed cardiac defibulator / Confirmed interrogated at physicians office---02/22/13 pacemaker / SNOMED CT 4911282688 / Confirmed stroke / SNOMED CT 256170731 / Confirmed he had a stroke when they found the blood clot in valve 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 / Confirmed treated with blood thinners History of obstructive sleep apnea / IMO 93711614 / Confirmed high cholesterol / SNOMED CT 48758073 / Confirmed hypertension / SNOMED CT 2556250088 / Confirmed myocardial infarction / SNOMED CT 12222253 / Confirmed sesonal allergies / Confirmed, Active [...] Gastrointestinal: Normal bowel sounds. Integumentary: Warm, Dry, Slick. Results Review General results HYROID ULTRASOUND HISTORY: [...] appt endocrine for hyperthyroid Electronically signed by Jackie, [facility] Conversion Hat Forming Machine Operator Cerner at 06/19/2022 11:02 PM CDT documented in this encounter Plan of Treatment Not on file documented as of this encounter Visit Diagnoses Not on filedocumented in this encounter
--- OUTSIDE RECORDS SUMMARY | 2025-02-24 14:58 | XMS_ITS | Encounter Summary ---
Author Organization [employer] ([place], [place], [place], [place], [place]) Address [address] [place] [address] Care Team Providers Care Neck Band Maker Name Role Phone Unavailable Primary Care Provider Unavailabl e Encounter Details Date Type Department Care Team (Late st Contact Info) Description 04/15/2018 Transcribed Document [facility] [place] Family [place] [address] ProviderMg MD [facility] [place] [id number] Social History Tobacco Use Types Packs/Day Years Used Date Smoking Tobacco: Never Assessed Sex and Gender Information Value Date Recorded Sex Assigned at Not on file Legal Sex Male 1:09 PM CDT Gender Identity Not on file Sexual Orientation Not on file documented as of this encounter Miscellaneous Notes * Cerner Conversion Note - Mg Ritchie MD - 04/15/2018 9:38 AM ORGANIC PREPARATION ANALYST Patient: JOSE PEARSON Age: 47 years Sex: Male : 1970 Associated Diagnoses: None Author: KATY FRIAS MD-CAR Chief Complaint got shocked last night History of Present Illness 47-year-old male with history of nonischemic artery myopathy diagnosed in 2007, the patient had normal coronaries, the patient had received IV ICD, he also has atrial fibrillation paroxysmal, the patient was recently admitted to [facility] for right heart catheterization, he was [...] twice. He was therefore brought in to [facility] emergency room. Review of Systems Constitutional: [...] Refill(s) fluticasone 50 mcg/inh nasal spray: 1 [place], Nostrils Both, Daily, 0 Refill(s) montelukast 10 [...] Problem list: Medical angina / SNOMED CT 907706405 / Confirmed At risk for sleep apnea / IMO 44656627 / Confirmed cardiac defibulator / Confirmed interrogated at physicians office---02/22/13 pacemaker / SNOMED CT 0347666044 / Confirmed stroke / SNOMED CT 364657909 / Confirmed he had a stroke when they found the blood clot in valve 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 / Confirmed treated with blood thinners History of obstructive sleep apnea / IMO 99776999 / Confirmed high cholesterol / SNOMED CT 96247521 / Confirmed hypertension / SNOMED CT 9366540817 / Confirmed myocardial infarction / SNOMED CT 20307986 / Confirmed sesonal allergies / Confirmed, Active [...] EST Height Source Stated Height Entry Format [place] Height/Length, ARGENTINE (ft) 6 ft Height/Length ARGENTINE 0 Inch CLINICALHEIGHT 182.88 cm [place] Body Weight 77 kg Weight Source Standing scale Weight Entry Format [place] Weight [place] lb 229 lb Weight [place] oz 5 oz CLINICALWEIGHT 104.23 kg Body Surface Area (BSA) 2.26 m2 Body Mass Index 31.2 kg/m2 HI 04/14/2018 19:04 EST Height Source Stated Height Entry Format [place] Height/Length, ARGENTINE (ft) 6 ft Height/Length ARGENT[place] 0 Inch CLINICALHEIGHT 182.88 cm [place] Body Weight 76.59 kg Weight Source, ED Standing scale Weight Entry Format [place] Weight [place] lb 229 lb CLINICALWEIGHT 104.09 kg Body [...] of motion, Normal strength. Integumentary: Warm, Dry, [place]. Neurologic: Alert, Oriented. Cognition and Speech: Oriented, [...]
--- OUTSIDE RECORDS SUMMARY | 2025-02-24 14:58 | XMS_ITS | Encounter Summary ---
Author Organization [employer] ([place], [place], [place], [place], [place]) Address [address] [place] [address] Care Team Providers Care Shoe Laster Name Role Phone Unavailable Primary Care Provider Stefan pond Encounter Details Date Type Department Care Team (Late st Contact Info) Description 04/15/2018 Transcribed Document [facility] [place] Family Medicine [facility] [place] [address] ProviderMg MD [facility] [place] [address] Social History Tobacco Use Types Packs/Day Years Used Date Smoking Tobacco: Never Assessed Sex and Gender Information Value Date Recorded Sex Assigned at Not on file Legal Sex Male 1:09 PM CDT Gender Identity Not on file Sexual Orientation Not on file documented as of this encounter Miscellaneous Notes * Cerner Conversion Note - Historical ProviderMD - 04/15/2018 5:00 AM RN NEW GRADUATE Chart Check - Review Order Profile Entered [...]
--- OUTSIDE RECORDS SUMMARY | 2025-02-24 14:58 | XMS_ITS | Encounter Summary ---
Author Organization [employer] ([place], [place], [place], [place], [place]) Address [address] [place] [address] Care Team Providers Care Life Trainer Name Role Phone Unavailable Primary Care Provider Unavailabl e Encounter Details Date Type Department Care Team (Late st Contact Info) Description 05/28/2018 Transcribed Document [facility] [place] [facility] [place] [address] ProviderMg MD [facility] [place] [address] Social History Tobacco Use Types [...] Ritchie MD - 05/28/2018 4:50 PM CDT [address] [address] Patient Copy Patient Information: Name: JOSE PEARSON Current Date: 05/28/2018 16:50:55 : 1970 Patient Address: [address] [place] [id number] Patient Attending Physician: JONATAN ISABEL MD-CAR Primary Care Provider: HUMA YARBROUGH (REF)JAYNE Primary Care Provider Discharge Diagnosis: Weight on Admission: 240 lb, 0 oz Comment: Follow-up Instructions: With: Address: [place]: JOANTAN ISABEL [address] [facility] [address] [place] [address] Business (1) Comments: Call for [...] nasal (fluticasone 50 mcg/inh nasal spray) 1 [place](s) Nostrils Both Every Day. furosemide (Lasix 40 [...] Document Reviewed: 03/25/2011 ExitCare? Patient Information ?2014 [employer]. Cardiac Ablation Cardiac ablation is a procedure to stop some heart tissue from causing problems. The heart has many electrical connections. Sometimes these connections cause the heart to beat very fast or irregularly. Removing some of the problem areas can improve heart rhythm or make it normal. Ablation is done for people who: ??? Have Nqvif-Tbypmdwqz-Tavrd syndrome. ??? Have other fast heart rhythms [...] 10/23/2013 Document Revised: 07/28/2016 Document Reviewed: 07/18/2013 [employer] Interactive Patient Education ? 2017 [employer] Moderate Conscious Sedation, Adult, Care After [...] you are awake and alert. ??? Take lvso-gtj-dunrdns and prescription medicines only as told by [...] 12/11/2013 Document Revised: 07/25/2016 Document Reviewed: 06/11/2016 [employer] Interactive Patient Education ? 2017 [employer] CIGARETTE SMOKING: The facts are clear, cigarette smoking will shorten your life. Smoking can cause many illnesses along the way. As a healthcare provider, we recommend that you stop smoking. Assistance with quitting is available by contacting 7-830-QCEP-NOW. This is a free resource providing counseling, [...] Be sure to sign up for the [email or web address] patient portal, which gives you 26/09 access to your medical information ??? including these discharge instructions ??? using your computer, smartphone, or tablet. Just go to GoNogging to get started. Questions? Call . [facility] would like to thank you for allowing us to assist you with your healthcare needs. ANASTASIA Rich DENNIS PAUL, (or bilingual inside sales representative) have received the above patient education materials/instructions and have verbalized understanding: Patient Signature _ Date/Time Patient Transformation Consultant Signature (if needed) Date/Time Clinician/Hospital Transformation Consultant Signature (if needed) Date/Time Electronically signed by Interface, [facility] Conversion Fixture Builder Cerner at 06/19/2022 10:50 PM CDT documented in this encounter Plan of Treatment Not on file documented as of this encounter Visit Diagnoses Not on filedocumented in this encounter
--- OUTSIDE RECORDS SUMMARY | 2025-02-24 14:58 | XMS_ITS | Encounter Summary ---
Author Organization [employer] ([place], [place], [place], [place], [place]) Address [address] [place] [address] Care Team Providers Care Distillery Miller Helper Name Role Phone Unavailable Primary Care Provider Stefan pond Encounter Details Date Type Department Care Team (Late st Contact Info) Description 04/15/2018 Transcribed Document [facility] [place] [facility] [place] [address] ProviderMg MD [facility] [place], [place] [address] Social History Tobacco Use Types Packs/Day Years Used Date Smoking Tobacco: Never Assessed Sex and Gender Information Value Date Recorded Sex Assigned at Not on file Legal Sex Male 1:09 PM CDT Gender Identity Not on file Sexual Orientation Not on file documented as of this encounter Miscellaneous Notes * Cerner Conversion Note - Historical ProviderMD - 04/15/2018 2:00 AM SALVATIONIST Post Acute Care Nurse Practitioner Details Entered On: 04/15/2018 6:48 EST Performed [...]
--- OUTSIDE RECORDS SUMMARY | 2025-02-24 14:58 | XMS_ITS | Encounter Summary ---
Author Organization [employer] ([place], [place], [place], [place], [place]) Address [address] [place] [address] Care Team Providers Care Insulator Apprentice Name Role Phone Unavailable Primary Care Provider Unavailabl e Encounter Details Date Type Department Care Team (Late st Contact Info) Description 06/26/2018 Transcribed Document [facility] [place] [address] [place] [address] ProviderMg MD [address] [place] [address] Social History Tobacco Use Types [...] Ritchie MD - 06/26/2018 2:27 PM CDT [facility] [place] [address] JOSE PEARSON :1970 Visit Time:06/25/2018 Your [...] you need assistance finding a PCP call [phone] Follow Up with JONATAN DAVIS MD-CAR When Within 2 to 4 weeks Comments Please call to make a 2-4 week follow-up appointment. Where: [address] [address]- Medications What How Much When Instructions Next [...] (fluticasone 50 mcg/ inh nasal spray) 1 [place](s) Nostrils Both Every Day Unchanged furosemide (Lasix [...] Follow these instructions at home: ??? Take qidr-evz-parzdgu and prescription medicines only as told by [...] including vitamins, herbs, eye drops, creams, and mppr-akq-vwnjxdh medicines. ??? Any problems you or family [...] 08/10/2010 Document Revised: 09/23/2016 Document Reviewed: 08/29/2016 [employer] Interactive Patient Education ?? 2017 [email or web address]. Emergency Awareness and Preventative Care STROKE is [...] Assistance with quitting is available by contacting 1-708-WHOR-NOW. This is a free resource providing counseling, [...] Be sure to sign up for the [facility] patient portal, which gives you 26/09 access to your medical information ??? including these discharge instructions ??? using your computer, smartphone, or tablet. Just go to [email or web address] to get started. Questions? Call . Test [...] range between ( 0.0 and 7.0 ) [place] #: 1.01 K/uL -- Normal range between ( 0.16 and 1.00 ) [place] #: 0.29 x10(3)/uL -- Normal range between ( 0.00 and 0.80 ) [place] %: 12.1 % -- Normal range between [...] was given the opportunity to ask questions. Patient/Commercial Specialist Name: Patient/Commercial Specialist Signature: Relationship to Patient: Clinician/Hospital Commercial Specialist Signature: Date: documented in this encounter Plan of Treatment Not on file documented as of this encounter Visit Diagnoses Not on filedocumented in this encounter
--- OUTSIDE RECORDS SUMMARY | 2025-02-24 14:58 | XMS_ITS | Encounter Summary ---
Author Organization [employer] ([place], [place], [place], [place], [place]) Address [address] [place] [address] Care Team Providers Care Water Safety Teacher Name Role Phone Unavailable Primary Care Provider Stefan e Encounter Details Date Type Department Care Team (Late st Contact Info) Description 04/16/2018 Transcribed Document [facility] [place] [facility] [place] [address] ProviderMg MD [facility] [place], [place] [id number] Social History Tobacco Use Types Packs/Day Years Used Date Smoking Tobacco: Never Assessed Sex and Gender Information Value Date Recorded Sex Assigned at Not on file Legal Sex Male 1:09 PM CDT Gender Identity Not on file Sexual Orientation Not on file documented as of this encounter Miscellaneous Notes * Cerner Conversion Note - Mg ProviderMD - 04/16/2018 6:16 PM HEALTH AND NUTRITION SPECIALIST Patient: JOSE PEARSON Age: 47 years [...] 5 years ago, was seen by an inventory administrator, but that it spontaneously resolved thereafter and [...] Refill(s) fluticasone 50 mcg/inh nasal spray: 1 [place], Nostrils Both, Daily, 0 Refill(s) montelukast 10 mg oral tablet: 1 Tab, Oral, Daily, 0 Refill(s) pravastatin 80 mg oral tablet: 1 Tab, Oral, At Bedtime, 0 Refill(s) spironolactone: 25 mg, Oral, Daily, 0 Refill(s) Problem list: Medical angina / SNOMED CT 813990074 / Confirmed At risk for sleep apnea / IMO 86884721 / Confirmed cardiac defibulator / Confirmed interrogated at physicians office---02/22/13 pacemaker / SNOMED CT 9608887170 / Confirmed stroke / SNOMED CT 303118394 / Confirmed he had a stroke when they found the blood clot in valve 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 / Confirmed treated with blood thinners History of obstructive sleep apnea / IMO 28996018 / Confirmed high cholesterol / SNOMED CT 50743017 / Confirmed hypertension / SNOMED CT 8711081997 / Confirmed myocardial infarction / SNOMED CT 63856839 / Confirmed sesonal allergies / Confirmed, Active [...] EST Height Source Stated Height Entry Format [place] Height/Length, [place] (ft) 6 ft Height/Length [place] 0 Inch CLINICALHEIGHT 182.88 cm Routine Weight Source Standing scale Routine Weight Entry Format [place] Routine Weight, Pounds 228 lb Routine Weight, [...] in obtaining an appt d/w pt, family documented in this encounter Plan of Treatment Not on file documented as of this encounter Visit Diagnoses Not on filedocumented in this encounter
--- OUTSIDE RECORDS SUMMARY | 2025-02-24 14:58 | XMS_ITS | Encounter Summary ---
Author Organization [employer] ([place], [place], [place], [place], [place]) Address [address] [place] [address] Care Team Providers Care Furnace Installer Helper Name Role Phone Unavailable Primary Care Provider Unavailabl e Encounter Details Date Type Department Care Team (Late st Contact Info) Description 06/25/2018 Transcribed Document [facility] [place] [facility] [place] [address] ProviderMg MD [facility] [place] [address] Social History Tobacco Use Types [...] Source : Stated Height Entry Format : [place] Height, Feet : 6 ft(Converted to: 183 cm, 72 Inch) Height, Inches : 0 Inch(Converted to: 0 ft 0 Inch, 0.00 cm) Clinical Height : 182.88 cm Weight Source : Standing scale Weight Entry Format : [place] Clinical Dosing Weight : 106.36 kg Weight, Pounds : 234 lb Body Surface Area (BSA) : 2.28 m2 Body Mass Index : 31.8 kg/m2 (HI) [place] Body Weight : 77 kg YOEL SANTANA [...] EDT Legal Guardian : Spouse Support Person/Patient Street Light Inspector : Yes Support Person/Pt Rep Name : Deidre Pearson-- Support Person/Pt Rep Contact Information : [phone] Want Family/Rep/Phys Notified of Admit : No Emergency Contact #1 : Deidre Pearson Emergency Contact #1 Emergency Contact #1 Relationship : Emergency Contact #2 : na Emergency Contact #2 Phone Number : na Emergency Contact #2 Relationship : na Chief Complaint : ep/ablation Information Obtained From : Patient, Spouse Primary Language : [place] Preferred Communication Mode : Verbal Communication Barrier [...] Scale Risk Level : 0-24 Low Risk [place] Fall Interventions : Adequate lighting, Assistive devices [...]
--- OUTSIDE RECORDS SUMMARY | 2025-02-24 14:58 | XMS_ITS | Encounter Summary ---
Author Organization [employer] ([place], [place], [place], [place], [place]) Address [address] [place] [address] Care Team Providers Care Mortician Helper Name Role Phone Unavailable Primary Care Provider Unavailabl e Encounter Details Date Type Department Care Team (Late st Contact Info) Description 04/16/2018 Transcribed Document [facility] [place] [facility] [place] [address] ProviderMg MD [facility] [place] [address] Social History Tobacco Use Types Packs/Day Years Used Date Smoking Tobacco: Never Assessed Sex and Gender Information Value Date Recorded Sex Assigned at Not on file Legal Sex Male 1:09 PM CDT Gender Identity Not on file Sexual Orientation Not on file documented as of this encounter Miscellaneous Notes * Cerner Conversion Note - Historical ProviderMD - 04/16/2018 9:46 AM CARPENTER HELPER Therapy Screen, OT Entered On: 04/16/2018 11:07 [...]
--- OUTSIDE RECORDS SUMMARY | 2025-02-24 14:58 | XMS_ITS | Encounter Summary ---
Author Organization [employer] ([place], [place], [place], [place], [place]) Address [address] [place] [address] Care Team Providers Care Auto Bench Mechanic Name Role Phone Unavailable Primary Care Provider Stefan pond Encounter Details Date Type Department Care Team (Late st Contact Info) Description 04/14/2018 Transcribed Document [facility] [place] [facility] [place] [address] ProviderMg MD [facility] [place] [address] Social History Tobacco Use Types Packs/Day Years Used Date Smoking Tobacco: Never Assessed Sex and Gender Information Value Date Recorded Sex Assigned at Not on file Legal Sex Male 1:09 PM CDT Gender Identity Not on file Sexual Orientation Not on file documented as of this encounter Miscellaneous Notes * Cerner Conversion Note - Mg ProviderMD - 04/14/2018 11:19 PM APNS Education-Smoking Cessation Entered On: 04/15/2018 6:49 EST [...] Tobacco Cues : Verbalizes understanding Activities to [place] With Smoking Urges : Verbalizes understanding Basic Information About Quitting : Verbalizes understanding Tobacco Use Increases Chance of Relapse : Verbalizes understanding Withdrawal Symptoms Peak After Quitting : Verbalizes understanding Addictive Nature of Tobacco : Verbalizes understanding Caridad Clements RN - 04/15/2018 6:49 EST Electronically signed by [facility] Conversion Opinion Polls Survey Worker Cerner at 06/19/2022 11:00 PM CDT documented in this encounter Plan of Treatment Not on file documented as of this encounter Visit Diagnoses Not on filedocumented in this encounter
--- OUTSIDE RECORDS SUMMARY | 2025-02-24 14:58 | XMS_ITS | Encounter Summary ---
Author Organization [employer] ([place], [place], [place], [place], [place]) Address [address] [place] [address] Care Team Providers Care Machine Biller Name Role Phone Unavailable Primary Care Provider Unavailabl e Encounter Details Date Type Department Care Team (Late st Contact Info) Description 05/28/2018 Transcribed Document [facility] [place] Family Medicine [address] [place] [address] ProviderMg MD [facility] [place] [address] Social History Tobacco Use Types Packs/Day Years [...]
--- OUTSIDE RECORDS SUMMARY | 2025-02-24 14:58 | XMS_ITS | Encounter Summary ---
Author Organization [employer] ([place], [place], [place], [place], [place]) Address [address] [place] [address] Care Team Providers Care Obiee Consultant Name Role Phone Unavailable Primary Care Provider Unavailabl e Encounter Details Date Type Department Care Team (Late st Contact Info) Description 05/28/2018 Transcribed Document [facility] [place] [facility] [place] [address] ProviderMg MD [facility] [place] [address] Social History Tobacco Use [...] Ritchie MD - 05/28/2018 5:34 PM CDT [address] [address] Patient Copy Patient Information: Name: JOSE PEARSON Current Date: 05/28/2018 17:34:18 : 1970 Patient Address: [address] [place] [id number] Patient Attending Physician: JONATAN ISABEL MD-CAR Primary Care Provider: HUMA YARBROUGH (REF)JAYNE Primary Care Provider Discharge Diagnosis: Weight on Admission: 240 lb, 0 oz Comment: Follow-up Instructions: With: Address: [place]: JONATAN ISABEL [address] [facility] [address] [place] [address] Business (1) Comments: Call for [...] nasal (fluticasone 50 mcg/inh nasal spray) 1 [place](s) Nostrils Both Every Day. furosemide (Lasix 40 [...] Document Reviewed: 03/25/2011 ExitCare? Patient Information ?2014 [employer]. Cardiac Ablation Cardiac ablation is a procedure to stop some heart tissue from causing problems. The heart has many electrical connections. Sometimes these connections cause the heart to beat very fast or irregularly. Removing some of the problem areas can improve heart rhythm or make it normal. Ablation is done for people who: ??? Have Gcwiw-Dvnlqalfi-Ggbzx syndrome. ??? Have other fast heart rhythms [...] 10/23/2013 Document Revised: 07/28/2016 Document Reviewed: 07/18/2013 [employer] Interactive Patient Education ? 2017 [employer] Moderate Conscious Sedation, Adult, Care After [...] you are awake and alert. ??? Take mzjb-bkl-srudowa and prescription medicines only as told by [...] 12/11/2013 Document Revised: 07/25/2016 Document Reviewed: 06/11/2016 [employer] Interactive Patient Education ? 2017 [employer] CIGARETTE SMOKING: The facts are clear, cigarette smoking will shorten your life. Smoking can cause many illnesses along the way. As a healthcare provider, we recommend that you stop smoking. Assistance with quitting is available by contacting 7-834-UACP-NOW. This is a free resource providing counseling, [...] Be sure to sign up for the [employer] patient portal, which gives you 26/09 access to your medical information ??? including these discharge instructions ??? using your computer, smartphone, or tablet. Just go to [employer] to get started. Questions? Call . [facility] would like to thank you for allowing us to assist you with your healthcare needs. ANASTASIA Rich DENNIS PAUL, (or sales representative business courses) have received the above patient education materials/instructions and have verbalized understanding: Patient Signature _ Date/Time Patient Senior Landscape Architect Signature (if needed) Date/Time Clinician/Hospital Senior Landscape Architect Signature (if needed) Date/Time Electronically signed by Interface, [facility] Conversion Briquetter Operator Cerner at 06/19/2022 10:58 PM CDT documented in this encounter Plan of Treatment Not on file documented as of this encounter Visit Diagnoses Not on filedocumented in this encounter
--- OUTSIDE RECORDS SUMMARY | 2025-02-24 14:58 | XMS_ITS | Encounter Summary ---
Author Organization [employer] ([place], [place], [place], [place], [place]) Address [address] [place] [address] Care Team Providers Care Associate Professor Physician Name Role Phone Unavailable Primary Care Provider Unavailabl e Encounter Details Date Type Department Care Team (Late st Contact Info) Description 05/28/2018 Transcribed Document [facility] [place] [facility] [place] [address] ProviderMg MD [facility] [place] [address] Social History Tobacco Use Types [...] means of the modified Seldinger technique an 8-Anguillan and a 6-Anguillan sheath was introduced in right femoral vein. The 8-Anguillan sheath was exchanged for a medium curve Agilis long sheath. The 6-Anguillan sheath was used to place a deflectable [...] plan is to discharge him from the research laboratory manager holding area following recovery from [...]
--- OUTSIDE RECORDS SUMMARY | 2025-02-24 14:58 | XMS_ITS | Encounter Summary ---
Author Organization [employer] ([place], [place], [place], [place], [place]) Address [address] [place] [address] Care Team Providers Care Reproduction Production Manager Name Role Phone Unavailable Primary Care Provider Unavailabl e Encounter Details Date Type Department Care Team (Late st Contact Info) Description 04/15/2018 Transcribed Document [facility] [place] [facility] [place] [address] ProviderMg MD [facility] [place] [address] Social History Tobacco Use Types Packs/Day Years Used Date Smoking Tobacco: Never Assessed Sex and Gender Information Value Date Recorded Sex Assigned at Not on file Legal Sex Male 1:09 PM CDT Gender Identity Not on file Sexual Orientation Not on file documented as of this encounter Miscellaneous Notes * Cerner Conversion Note - Historical ProviderMD - 04/15/2018 5:00 AM INTELLIGENT SYSTEMS ENGINEER Height and Weight, Routine Entered On: 04/16/2018 6:59 EST Performed On: 04/15/2018 5:00 EST by Josue Roa Patient [place] Man Height and Weight, Routine Routine Weight Source : Standing scale Routine Weight Entry Format : [place] Routine Weight, Pounds : 228 lb Routine Weight, Ounces : 6 oz Routine Weight Calculation : 103.81 kg Height Source : Stated Height Entry Format : [place] Height, Feet : 6 ft Height, Inches : 0 Inch Clinical Height : 182.88 cm Body Surface Area (BSA), Routine : 2.26 m2 Body Mass Index (BMI), Routine : 31.04 kg/m2 Josue Roa Patient [place] Man - 04/16/2018 6:59 EST documented in this encounter Plan of Treatment Not on file documented as of this encounter Visit Diagnoses Not on filedocumented in this encounter
--- OUTSIDE RECORDS SUMMARY | 2025-02-24 14:58 | XMS_ITS | Encounter Summary ---
Author Organization [employer] ([place], [place], [place], [place], [place]) Address [address] [place] [address] Care Team Providers Care Carbonator Name Role Phone Unavailable Primary Care Provider Unavailabl e Encounter Details Date Type Department Care Team (Late st Contact Info) Description 06/25/2018 Transcribed Document [facility] [place] [facility] [place] [address] ProviderMg MD [facility] [place] [address] Social History Tobacco Use Types [...] means of the modified Seldinger technique. A 5-Anguillan sheath was placed in the right femoral artery and an 8-Anguillan sheath in the right femoral vein. The [...] obtaining an adequate His cloud using the [employer] 3D mapping system, the ablation was commenced, [...]
--- OUTSIDE RECORDS SUMMARY | 2025-02-24 14:58 | XMS_ITS | Encounter Summary ---
Author Organization [employer] ([place], [place], [place], [place], [place]) Address [address] [place] [address] Care Team Providers Care Activated Sludge Operator Name Role Phone Unavailable Primary Care Provider Unavailabl e Encounter Details Date Type Department Care Team (Late st Contact Info) Description 06/26/2018 Transcribed Document [facility] Radiology [address] [place] [address] Judy Perry MD [facility] [address] [address] Social History Tobacco Use Types [...] is a 48 yo male admitted to [facility] per Dr. Davis for a cardiac ablation. [...] see supporting data below *Scribed by Vannessa DaviesSumma Health Status Allergies: Allergic Reactions (Selected) No [...] 50 mcg/inh nasal spray: 50 mcg, 1 [place], Nostrils Both, Daily hydrALAZINE: 10 mg, IV [...] Refill(s) fluticasone 50 mcg/inh nasal spray: 1 [place], Nostrils Both, Daily, 0 Refill(s) montelukast 10 [...] fluticasone 0.05% nasal spray 50 mcg 1 [place], Nostrils Both, Daily furosemide 40 mg tab [...] Problem list: Medical angina / SNOMED CT 871410861 / Confirmed At risk for sleep apnea / IMO 21442076 / Confirmed cardiac defibulator / Confirmed interrogated at physicians office---02/22/13 pacemaker / SNOMED CT 0132628899 / Confirmed stroke / SNOMED CT 208532912 / Confirmed he had a stroke when they found the blood clot in valve History of obstructive sleep apnea / IMO 57876338 / Confirmed high cholesterol / SNOMED CT 75806329 / Confirmed hypertension / SNOMED CT 6239394181 / Confirmed myocardial infarction / SNOMED CT 16786283 / Confirmed sesonal allergies / Confirmed Resolved: [...]
--- OUTSIDE RECORDS SUMMARY | 2025-02-24 14:58 | XMS_ITS | Encounter Summary ---
Author Organization [employer] ([place], [place], [place], [place], [place]) Address [address] [place] [address] Care Team Providers Care Manager Access Name Role Phone Unavailable Primary Care Provider Unavailabl e Encounter Details Date Type Department Care Team (Late st Contact Info) Description 05/28/2018 Transcribed Document [facility] [place] Family Medicine [address] [place] [address] ProviderMg MD [facility] [address] Social History Tobacco Use Types Packs/Day Years [...]
--- OUTSIDE RECORDS SUMMARY | 2025-02-24 14:58 | XMS_ITS | Encounter Summary ---
Author Organization [employer] ([place], [place], [place], [place], [place]) Address [address] [place] [address] Care Team Providers Care French Binder Name Role Phone Unavailable Primary Care Provider Unavailabl e Encounter Details Date Type Department Care Team (Late st Contact Info) Description 04/14/2018 Transcribed Document [facility] [place] [facility] [place] [address] ProviderMg MD [facility] [place] [address] Social History Tobacco Use Types Packs/Day Years Used Date Smoking Tobacco: Never Assessed Sex and Gender Information Value Date Recorded Sex Assigned at Not on file Legal Sex Male 1:09 PM CDT Gender Identity Not on file Sexual Orientation Not on file documented as of this encounter Miscellaneous Notes * [employer]ner Conversion Note - Mg ProviderMD - 04/14/2018 7:00 PM STOCKROOM WORKER ED Assessment Entered On: 04/14/2018 19:37 EST [...] Communication Barrier : None Primary Language : Kuwaiti Any Spiritual/Cultural Needs or Requests : No [...] Rhythm : Regular Nail Bed Color : [place] Chest Pain : Yes Zora Renteria RN [...]
--- OUTSIDE RECORDS SUMMARY | 2025-02-24 14:58 | XMS_ITS | Encounter Summary ---
Author Organization [employer] ([place], [place], [place], [place], [place]) Address [address] [place] [address] Care Team Providers Care Drilling Field Professional Name Role Phone Unavailable Primary Care Provider Unavailabl e Encounter Details Date Type Department Care Team (Late st Contact Info) Description 04/14/2018 Transcribed Document [facility] [place] [facility] [place] [address] ProviderMg MD [place] [address] Social History Tobacco Use Types Packs/Day Years Used Date Smoking Tobacco: Never Assessed Sex and Gender Information Value Date Recorded Sex Assigned at Not on file Legal Sex Male 1:09 PM CDT Gender Identity Not on file Sexual Orientation Not on file documented as of this encounter Miscellaneous Notes * Cerner Conversion Note - Mg ProviderMD - 04/14/2018 7:00 PM MANAGER OF WAREHOUSE ED Triage Entered On: 04/14/2018 19:08 EST Performed On: 04/14/2018 19:04 EST by CHONG LA ED Triage Across the Room Triage Date/Time : 04/14/2018 19:04 EST Chief Complaint : Pacemaker fired yesterday, states chest feels funny . reports + LOC x 30 sec. CHONG LA - 04/14/2018 19:04 EST DCP GENERIC CODE Tracking Acuity : 2 - Emergent Tracking [facility] CHONG LA - 04/14/2018 19:04 EST [...] 04/14/2018 19:08:38 EST) Problems(Active) stroke (SNOMED CT :495609536 ) Name of Problem: stroke ; Onset Date: 04/02/2013 ; Recorder: FLAQUITA MARTIN RN; Confirmation: Confirmed ; Classification: Medical ; Code: [id number] ; Contributor System: VideoCare ; Last Updated: 11/24/2016 11:59 EDT ; Life Cycle Date: 04/02/2013 ; Life Cycle Status: Active ; Vocabulary: SNOMED CT ; Comments: 04/02/2013 8:34 - FLAQUITA MARTIN RN he had a stroke when they found the blood clot in valve angina (SNOMED CT :798446341 ) Name of Problem: angina ; Recorder: FLAQUITA MARTIN RN; Confirmation: Confirmed ; Classification: Medical ; Code: [id number] ; Contributor System: [employer] Lead[employer] ; Last Updated: 08/20/2013 11:12 EDT ; Life Cycle Date: 04/02/2013 ; Life Cycle Status: Active ; Vocabulary: SNOMED CT Asthma (SNOMED CT :773726150 ) Name of Problem: Asthma ; Recorder: Kailey Castorena RN; Confirmation: Confirmed ; Classification: Patient Stated ; Code: 055858271 ; Contributor System: PowerChart ; Last Updated: 03/23/2017 9:49 EST ; Life Cycle Date: 03/23/2017 ; Life Cycle Status: Active ; Vocabulary: SNOMED CT At risk for sleep apnea (IMO :99206765 ) Name of Problem: At risk for sleep apnea ; Recorder: SYSTEM, SYSTEM; Confirmation: Confirmed ; Classification: Medical ; Code: 97367969 ; Last Updated: 03/28/2018 13:21 EST ; [...] interrogated at physicians office---02/22/13 Cardiomyopathy (SNOMED CT :184865699 ) Name of Problem: Cardiomyopathy ; Recorder: Kailey Castorena RN; Confirmation: Confirmed ; Classification: Patient Stated ; Code: 074427750 ; Contributor System: PowerChart ; Last Updated: [...] GERD - Gastro-esophageal reflux disease (SNOMED CT :1922146511 ) Name of Problem: GERD - Gastro-esophageal reflux disease ; Recorder: Kailey Castorena RN; Confirmation: Confirmed ; Classification: Patient Stated ; Code: [id number] ; Contributor System: PowerChart ; Last Updated: 03/23/2017 9:49 EST ; Life Cycle Date: 03/23/2017 ; Life Cycle Status: Active ; Vocabulary: SNOMED CT H/O: CVA (SNOMED CT :386908586 ) Name of Problem: H/O: CVA ; Recorder: Kailey Castorena RN; Confirmation: Confirmed ; Classification: Patient Stated ; Code: 243532108 ; Contributor System: PowerChart ; Last Updated: 03/23/2017 9:48 EST ; Life Cycle Date: 03/23/2017 ; Life Cycle Status: Active ; Vocabulary: SNOMED CT Heart failure (SNOMED CT :816626731 ) Name of Problem: Heart failure ; Recorder: Kailey Castorena RN; Confirmation: Confirmed ; Classification: Patient Stated ; Code: 595743797 ; Contributor System: PowerChart ; Last Updated: 03/23/2017 9:48 EST ; Life Cycle Date: 03/23/2017 ; Life Cycle Status: Active ; Vocabulary: SNOMED CT high cholesterol (SNOMED CT :69760318 ) Name of Problem: high cholesterol ; Recorder: FLAQUITA MARTIN RN; Confirmation: Confirmed ; Classification: Medical ; Code: 27286755 ; Contributor System: PowerChart ; Last Updated: 08/19/2013 14:21 EDT ; Life Cycle Date: 04/02/2013 ; Life Cycle Status: Active ; Vocabulary: SNOMED CT Hyperlipidemia (SNOMED CT :72447203 ) Name of Problem: Hyperlipidemia ; Recorder: Kailey Castorena RN; Confirmation: Confirmed ; Classification: Patient Stated ; Code: 46847850 ; Contributor System: PowerChart ; Last Updated: 03/23/2017 9:48 EST ; Life Cycle Date: 03/23/2017 ; Life Cycle Status: Active ; Vocabulary: SNOMED CT hypertension (SNOMED CT :2302554300 ) Name of Problem: hypertension ; Recorder: FLAQUITA MARTIN RN; Confirmation: Confirmed ; Classification: Medical ; Code: 9175570070 ; Contributor System: PowerChart ; Last Updated: 08/19/2013 14:20 EDT ; Life Cycle Date: 04/02/2013 ; Life Cycle Status: Active ; Vocabulary: SNOMED CT myocardial infarction (SNOMED CT :04564547 ) Name of Problem: myocardial infarction ; Onset Date: 04/02/2007 ; Recorder: FLAQUITA MARTIN RN; Confirmation: Confirmed ; Classification: Medical ; Code: 96910973 ; Contributor System: PowerChart ; Last Updated: 08/19/2013 14:57 EDT ; Life Cycle Date: 04/02/2013 ; Life Cycle Status: Active ; Vocabulary: SNOMED CT pacemaker (SNOMED CT :5309418275 ) Name of Problem: pacemaker ; Recorder: FLAQUITA MARTIN RN; Confirmation: Confirmed ; Classification: Medical ; Code: [id number] ; Contributor System: VideoCare ; Last Updated: 08/20/2013 16:01 EDT ; [...] PNED ; Probability: 0 ; Diagnosis Code: [id number] ED Height and Weight Height Source : Stated Height Entry Format : [place] Height, Feet : 6 ft(Converted to: 183 cm, 72 Inch) Height, Inches : 0 Inch(Converted to: 0 ft 0 Inch, 0.00 cm) Clinical Height : 182.88 cm Weight Source, ED : Standing scale Weight Entry Format : [place] Weight, Pounds : 229 lb Clinical Dosing Weight : 104.09 kg Body Surface Area (BSA) : 2.26 m2 Body Mass Index : 31.1 kg/m2 (HI) [place] Body Weight (IBW) : 76.59 kg CHONG LA - 04/14/2018 19:04 EST documented in this encounter Plan of Treatment Not on file documented as of this encounter Visit Diagnoses Not on filedocumented in this encounter
--- OUTSIDE RECORDS SUMMARY | 2025-02-24 14:58 | XMS_ITS | Encounter Summary ---
Author Organization [employer] ([place], [place], [place], [place], [place]) Address [address] [place] [address] Care Team Providers Care Bulb Brander Name Role Phone Unavailable Primary Care Provider Unavailabl e Encounter Details Date Type Department Care Team (Late st Contact Info) Description 05/28/2018 Transcribed Document [facility] [place] Medicine [facility] [place] [address] ProviderMg MD [facility] [address] Social History Tobacco Use Types [...] Document Reviewed: 03/25/2011 ExitCare? Patient Information ?2013 [employer] Pharmacology Moderate Conscious Sedation, Adult, Care [...] you are awake and alert. ??? Take gccr-npw-oyivujz and prescription medicines only as told by [...] 12/11/2013 Document Revised: 07/25/2016 Document Reviewed: 06/11/2016 [employer] Interactive Patient Education ? 2017 [employer] Procedures Cardiac Ablation Cardiac ablation is a procedure to stop some heart tissue from causing problems. The heart has many electrical connections. Sometimes these connections cause the heart to beat very fast or irregularly. Removing some of the problem areas can improve heart rhythm or make it normal. Ablation is done for people who: ??? Have Dlfou-Yltyhzeyp-Hwpvy syndrome. ??? Have other fast heart rhythms [...] 10/23/2013 Document Revised: 07/28/2016 Document Reviewed: 07/18/2013 [employer] Interactive Patient Education ? 2017 [employer] documented in this encounter Plan of Treatment Not on file documented as of this encounter Visit Diagnoses Not on filedocumented in this encounter
--- OUTSIDE RECORDS SUMMARY | 2025-02-24 14:58 | XMS_ITS | Encounter Summary ---
Author Organization [employer] ([place], [place], [place], [place], [place]) Address [address] [place] [address] Care Team Providers Care Slumber Room Attendant Name Role Phone Unavailable Primary Care Provider Unavailabl e Encounter Details Date Type Department Care Team (Late st Contact Info) Description 04/14/2018 Transcribed Document [facility] [place] [facility] the [facility] [place] [address] ProviderMg MD Count includes the [facility] [place] [address] Social History Tobacco Use Types Packs/Day Years Used Date Smoking Tobacco: Never Assessed Sex and Gender Information Value Date Recorded Sex Assigned at Not on file Legal Sex Male 1:09 PM CDT Gender Identity Not on file Sexual Orientation Not on file documented as of this encounter Miscellaneous Notes * Cerner Conversion Note - Mg Ritchie MD - 04/14/2018 7:30 PM OPTIMIZATION ENGINEER Patient: JOSE PEARSON Age: 47 years Sex: Male : 1970 Associated Diagnoses: Syncope; Cardiac rhythm disturbance; Hypotension; Scalp contusion Author: TIARA VANCE MD Basic Information Time seen: Date & time 04/14/2018 19:30:00, Voice recognition / economics teacher technology used for some documentation in this [...] Refill(s) fluticasone 50 mcg/inh nasal spray: 1 [place], Nostrils Both, Daily, 0 Refill(s) montelukast 10 [...] EST Height Source Stated Height Entry Format [place] Height/Length, SPANISH (ft) 6 ft Height/Length SPANISH 0 Inch CLINICALHEIGHT 182.88 cm [place] Body Weight 76.59 kg Weight Source, ED Standing scale Weight Entry Format [place] Weight [place] lb 229 lb CLINICALWEIGHT 104.09 kg Body [...] ED Adult Triage: ED Clinical Reconciliation: ED centralized traffic control operator: Normal Saline Bolus: 1,000 mL, 100 mL/Hr, [...] % 24.0 % Lymph # 1.45 K/uL Andrews % 19.4 % HI Andrews # 1.17 K/uL HI Eos % 2.0 % Eos # 0.12 K/uL Baso % 0.7 % Baso # 0.04 K/uL Slide Review No IG# 0 x10(3)/uL IG% 0 % PT 14.3 Second(s) HI INR 1.4 HI PTT 33.3 Second(s) HI . Chest X-Ray: Time reported 04/14/2018 21:02:00, no acute disease process, interpretation by Emergency Physician. Radiology results: Radiology Results (Last 48 hours) [id number] -- 04/14/2018 19:00 CT Head WO (04/14/2018 [...] pressure), Interventions hemodynamic management, Case review medical billing coder, Alternate history family. Performed by: self. Impression [...]
--- OUTSIDE RECORDS SUMMARY | 2025-02-24 14:58 | XMS_ITS | Encounter Summary ---
Author Organization [employer] ([place], [place], [place], [place], [place]) Address [address] [place] [address] Care Team Providers Care Spray Dry Operator Name Role Phone Unavailable Primary Care Provider Unavailabl e Encounter Details Date Type Department Care Team (Late st Contact Info) Description 06/26/2018 Transcribed Document [facility] [place] Family Medicine [address] [place] [address] ProviderMg MD [facility] [place] [address] Social History Tobacco Use Types Packs/Day Years [...]
--- OUTSIDE RECORDS SUMMARY | 2025-02-24 14:58 | XMS_ITS | Encounter Summary ---
Author Organization [employer] ([place], [place], [place], [place], [place]) Address [address] [place] [address] Care Team Providers Care Medicine Teacher Name Role Phone Unavailable Primary Care Provider Unavailabl e Encounter Details Date Type Department Care Team (Late st Contact Info) Description 05/28/2018 Transcribed Document [facility] [place] [facility] [place] [facility] [place] [address] ProviderMg MD [facility] [place] [address] Social History Tobacco Use Types [...] Source : Stated Height Entry Format : [place] Height, Feet : 0 ft(Converted to: 0 cm, 0 Inch) Height, Inches : 72 Inch(Converted to: 6 ft 0 Inch, 182.88 cm) Clinical Height : 182.88 cm Weight Source : Standing scale Weight Entry Format : [place] Clinical Dosing Weight : 109.09 kg Weight, Pounds : 240 lb Body Surface Area (BSA) : 2.3 m2 Body Mass Index : 32.6 kg/m2 (HI) [place] Body Weight : 77 kg [place] [...] 05/28/2018 10:25 EDT General Info Support Person/Patient Physician Practice Manager : Yes Support Person/Pt Rep Name : Deidre Pearson-- Support Person/Pt Rep Contact Information : [phone] Want Family/Rep/Phys Notified of Admit : No Emergency Contact #1 : Deidre- [phone] Emergency Contact #1 Phone Number : - Emergency Contact #1 Relationship : - Emergency Contact #2 : -- Emergency Contact #2 Phone Number : - Emergency Contact #2 Relationship : - Primary Language : Faroese Preferred Communication Mode : Verbal Communication Barrier [...] Scale Risk Level : 0-24 Low Risk [place] Fall Interventions : Wheels locked BR[place]TON OS[place]NE [...]
--- OUTSIDE RECORDS SUMMARY | 2025-02-24 14:58 | XMS_ITS | Encounter Summary ---
Author Organization [employer] ([place], [place], [place], [place], [place]) Address [address] [place] [address] Care Team Providers Care Historical Guide Name Role Phone Unavailable Primary Care Provider Unavailabl e Encounter Details Date Type Department Care Team (Late st Contact Info) Description 04/16/2018 Transcribed Document [facility] [place] [facility] [place] [address] ProviderMg MD [facility] [address] Social History Tobacco Use Types Packs/Day Years Used Date Smoking Tobacco: Never Assessed Sex and Gender Information Value Date Recorded Sex Assigned at Not on file Legal Sex Male 1:09 PM CDT Gender Identity Not on file Sexual Orientation Not on file documented as of this encounter Miscellaneous Notes * Cerner Conversion Note - Mg ProviderMD - 04/16/2018 11:08 AM SHOE FOLDER Patient: JOSE PEARSON Age: 47 years Sex: [...] Refill(s) fluticasone 50 mcg/inh nasal spray: 1 [place], Nostrils Both, Daily, 0 Refill(s) montelukast 10 [...]
--- OUTSIDE RECORDS SUMMARY | 2025-02-24 14:58 | XMS_ITS | Encounter Summary ---
Author Organization [employer] ([place], [place], [place], [place], [place]) Address [address] [place] [address] Care Team Providers Care Lead Clinical Research Coordinator Name Role Phone Unavailable Primary Care Provider Unavailabl e Encounter Details Date Type Department Care Team (Late st Contact Info) Description 04/16/[address] [facility] [place] [facility] [place] [address] ProviderMg MD [facility] [place] [address] Social History Tobacco Use Types Packs/Day Years Used Date Smoking Tobacco: Never Assessed Sex and Gender Information Value Date Recorded Sex Assigned at Not on file Legal Sex Male 1:09 PM CDT Gender Identity Not on file Sexual Orientation Not on file documented as of this encounter Miscellaneous Notes * Cerner Conversion Note - Historical ProviderMD - 04/16/2018 11:08 AM BUSINESS ANALYSIS PROFESSIONAL [facility] [place] OT Charges Entered On: 04/16/2018 11:08 EST Performed On: 04/16/2018 11:08 EST by NAHUM CORNELIUS OTR/Kaushal Hager OT Charges Screen For Humid System Operator : 1 NAHUM CORNELIUS OTR/Kaushal - 04/16/2018 11:08 EST documented in this encounter Plan of Treatment Not on file documented as of this encounter Visit Diagnoses Not on filedocumented in this encounter
--- OUTSIDE RECORDS SUMMARY | 2025-02-24 14:58 | XMS_ITS | Encounter Summary ---
Author Organization [employer] ([place], [place], [place], [place], [place]) Address [address] [place] [address] Care Team Providers Care Roller Leveler Operator Name Role Phone Unavailable Primary Care Provider Unavailabl e Encounter Details Date Type Department Care Team (Late st Contact Info) Description 04/15/2018 Transcribed Document [facility] [place] [address] ProviderMg MD [address] [place] [address] Social History Tobacco Use Types Packs/Day Years Used Date Smoking Tobacco: Never Assessed Sex and Gender Information Value Date Recorded Sex Assigned at Not on file Legal Sex Male 1:09 PM CDT Gender Identity Not on file Sexual Orientation Not on file documented as of this encounter Miscellaneous Notes * Cerner Conversion Note - Mg ProviderMD - 04/15/2018 2:01 AM LABOR RELATIONS SPECIALIST [address] [id number] Patient Information Name: JOSE PEARSON Age: 47 [...] range between ( 1.0 and 7.0 ) Grant #: 1.17 K/uL -- Normal range between ( 0.24 and 0.82 ) Eos #: 0.12 K/uL -- Normal range between ( 0.04 and 0.54 ) Grant %: 19.4 % -- Normal range between [...] ) Urine Bilirubin Dipstick: Negative Urine Specific [place]: 1.020 -- Normal range between ( 1.005 and 1.030 ) Urine Chemistry 04/14/18 23:23:00 Sodium Ur [place]: 48 mMole/Liter General Chemistry 04/14/18 22:35:00 Creatinine [...] that ANASTASIA JOSE PAIGE was seen at [facility] Emergency Department on ,04/15/2018 02:01:07. This [...] Assistance with quitting is available by contacting 0-658-TBNG-NOW. This is a free resource providing counseling, [...] Electronic Communications Privacy Act 18 U.S.C. ???Sections 4520-3836,?? and contain information intended for the specified [...] computer, smartphone, or tablet. Just go to [employer] to get started. Questions? Call . Acknowledgment [...] Instructions: Emergency Physician: Electronically signed by Interface, [facility] Conversion Desktop Specialist [employer]ner at 06/19/2022 11:12 PM CDT documented in this encounter Plan of Treatment Not on file documented as of this encounter Visit Diagnoses Not on filedocumented in this encounter
--- OUTSIDE RECORDS SUMMARY | 2025-02-24 14:58 | XMS_ITS | Encounter Summary ---
Author Organization [employer] ([place], [place], [place], [place], [place]) Address [address] [place] [address] Care Team Providers Care Kiss Machine Operator Name Role Phone Unavailable Primary Care Provider Unavailabl e Encounter Details Date Type Department Care Team (Late st Contact Info) Description 04/15/2018 Transcribed Document [facility] [place] Family Medicine [address] [place] [address] ProviderMg MD [facility] [place] [address] Social History Tobacco Use Types Packs/Day Years Used Date Smoking Tobacco: Never Assessed Sex and Gender Information Value Date Recorded Sex Assigned at Not on file Legal Sex Male 1:09 PM CDT Gender Identity Not on file Sexual Orientation Not on file documented as of this encounter Miscellaneous Notes * Cerner Conversion Note - Historical ProviderMD - 04/15/2018 10:08 AM HANDKERCHIEF CUTTER Therapy Screen, PT Entered On: 04/15/2018 10:09 [...] 04/15/2018 10:08 EST Electronically signed by Jackie [facility] Conversion Principal Quality Engineer [employer]ner at 06/19/2022 11:09 PM CDT documented in this encounter Plan of Treatment Not on file documented as of this encounter Visit Diagnoses Not on filedocumented in this encounter
--- OUTSIDE RECORDS SUMMARY | 2025-02-24 14:58 | XMS_ITS | Encounter Summary ---
Author Organization [employer] ([place], [place], [place], [place], [place]) Address [address] [place] [address] Care Team Providers Care Frontload Driver Name Role Phone Unavailable Primary Care Provider Unavailabl e Encounter Details Date Type Department Care Team (Late st Contact Info) Description 04/15/2018 Transcribed Document [facility] [place] [facility] [place] [facility] [place] [address] ProviderMg MD [address] [place] [address] Social History Tobacco Use Types Packs/Day Years Used Date Smoking Tobacco: Never Assessed Sex and Gender Information Value Date Recorded Sex Assigned at Not on file Legal Sex Male 1:09 PM CDT Gender Identity Not on file Sexual Orientation Not on file documented as of this encounter Miscellaneous Notes * Cerner Conversion Note - Mg Ritchie MD - 04/15/2018 2:01 AM GROUP EXERCISE CLASS INSTRUCTOR [address] [place] [address] PERSON INFORMATION Name JOSE PEARSON Age 47 Years 1970 Sex Male Language Chinese PCP HUMA YARBROUGH (REF)MD-INT Marital Status Med Service Cardiology Acct# Arrival 04/14/2018 19:00:00 Visit Reason Syncope/Near syncope; Medical problem reevaluation; BREAKDOWN (MECHANICAL) OF CARDIAC ELECTRODE, INIT ENCNTR Acuity 2 - Emergent LOS 000 07:01 Depart Date: 00:00 AM Address: [address] [place] [id number] Comment: PROVIDER INFORMATION Provider Role Assigned Unassigned [...]
--- OUTSIDE RECORDS SUMMARY | 2025-02-24 14:58 | XMS_ITS | Encounter Summary ---
Author Organization [employer] ([place], [place], [place], [place], [place]) Address [address] [place] [address] Care Team Providers Care Concaver Name Role Phone Unavailable Primary Care Provider Unavailabl e Encounter Details Date Type Department Care Team (Late st Contact Info) Description 04/15/2018 Transcribed Document [facility] [place] [address] ProviderMg [place] [address] Social History Tobacco Use Types Packs/Day Years Used Date Smoking Tobacco: Never Assessed Sex and Gender Information Value Date Recorded Sex Assigned at Not on file Legal Sex Male 1:09 PM CDT Gender Identity Not on file Sexual Orientation Not on file documented as of this encounter Miscellaneous Notes * Cerner Conversion Note - Historical ProviderMD - 04/15/2018 2:00 AM GLUE MAKER BONE ED Discharge Entered On: 04/15/2018 2:00 EST Performed On: 04/15/2018 2:00 EST by Zora Renteria tower erector helper Process Patient Disposition : Admit/Observe Personal Belongings [...] 04/15/2018 2:00 EST Electronically signed by Jackie [facility] Conversion Machine Splitter Cerner at 06/19/2022 10:53 PM CDT documented in this encounter Plan of Treatment Not on file documented as of this encounter Visit Diagnoses Not on filedocumented in this encounter
--- OUTSIDE RECORDS SUMMARY | 2025-02-24 14:59 | XMS_ITS | Encounter Summary ---
Author Organization [employer] ([place], [place], [place], [place], [place]) Address [address] [place] [address] Care Team Providers Care Career Specialist Name Role Phone Unavailable Primary Care Provider Unavailabl e Encounter Details Date Type Department Care Team (Late st Contact Info) Description 04/17/2018 Transcribed Document [facility] [place] [facility] [place] [address] ProviderMg MD [address] [place] [address] Social History Tobacco Use Types Packs/Day Years Used Date Smoking Tobacco: Never Assessed Sex and Gender Information Value Date Recorded Sex Assigned at Not on file Legal Sex Male 1:09 PM CDT Gender Identity Not on file Sexual Orientation Not on file documented as of this encounter Miscellaneous Notes * [employer]ner Conversion Note - Mg ProviderMD - 04/17/2018 8:26 AM LOW PRESSURE KETTLE OPERATOR PLEASE MODIFY BEFORE SIGNING CLINICAL DOCUMENTATION CLARIFICATION [...] PCM identified 04/16 [x ] BMI of_31.2_ 04/1533-Qms-KTF-31.2 Two or More of the Following ASPEN Criteria: [ x ] Unintentional Insufficient Energy Intake 04/1638-Rlekdvxbb-Ksbcojls reduced:</=50% needs for >/=5days [ x ] Weight Loss 04/1601-Jhbvxjmts-Momyue:>2% past 1 week [ x ] Loss of Muscle Mass 04/1643-Gvotvzheu-Fqjjploi: (suggested) some loss muscle mass [ x] Loss of Subcutaneous Fat 04/16-Nutrition - did observe moderate subcutaneous fat wasting to orbitals Present Risk Factors Results and Location in Medical Record [ x ] Change in appetite / nausea / vomiting / diarrhea 04/1666-Yyecsccpj-xd intake <50% >/=5days [ x ] Acute illness 04/1641-Scjwibrla-Sffrgfmkwrjbeze [ x ] Chronic illness 04/1632-Jqhxpmacz-sinmx on chronic left heart failure Present Treatments Results and Location in Medical Record [ x ] Dietary consult 04/16-MD orders-Nutrition consult [ x ] Nutritional supplements 04/16-Nutrition- RD will continue to monitor for pt to agree to oral supplements [ x ] Weights 04/1657-Vvzxzwrni-Lvkvdgs wt 2x/wk [ x ] Medication supplements 04/14-MD orders-Magnesium sulfate IV, Potassium chloride po CDS Signature: __Markus Simms RN, MSN, CDS__ Phone #: __[phone]_ Date: _04/17/2018__ Moderate Malnutrition (in acute illness) [...] loss; moderate- severe fluid accumulation; measurably reduced inflated pad buffer strength Moderate Malnutrition (in chronic illness) Energy [...] mass loss; severe fluid accumulation; measurably reduced inflated pad buffer strength This is a permanent part of the Medical Record 04/18/2018--Progress note-Dr. Lerma-Moderate protein-calorie malnutrition Electronically signed by Jackie, [facility] Conversion Tint Layer Cerner at 06/19/2022 10:48 PM CDT documented in this encounter Plan of Treatment Not on file documented as of this encounter Visit Diagnoses Not on filedocumented in this encounter
--- OUTSIDE RECORDS SUMMARY | 2025-02-24 14:59 | XMS_ITS | Encounter Summary ---
Author Organization [employer] ([place], [place], [place], [place], [place]) Address [address] [place] [address] Care Team Providers Care Tape Editor Name Role Phone Unavailable Primary Care Provider Unavailabl e Encounter Details Date Type Department Care Team (Late st Contact Info) Description 04/16/2018 Transcribed Document [facility] [place] [facility] [place] [address] ProviderMg MD [facility] [place] [address] Social History Tobacco Use Types Packs/Day Years Used Date Smoking Tobacco: Never Assessed Sex and Gender Information Value Date Recorded Sex Assigned at Not on file Legal Sex Male 1:09 PM CDT Gender Identity Not on file Sexual Orientation Not on file documented as of this encounter Miscellaneous Notes * [employer]ner Conversion Note - Historical ProviderMD - 04/16/2018 7:13 PM AUTOMATIC DRILL OPERATOR Event Note Entered On: 04/16/2018 19:14 EST Performed On: 04/16/2018 19:13 EST by CHARLA PHILLIPS RN Event Note Event Date/Time : 04/16/2018 19:13 EST Event Location : Assigned room Description of Event : Dr. Hobbs stated to stop amiodarone gtt because of blood pressure. Didn't DC order in case need to restart. CHARLA PHILLIPS, MARYCARMEN - 04/16/2018 19:13 EST documented in this encounter Plan of Treatment Not on file documented as of this encounter Visit Diagnoses Not on filedocumented in this encounter
--- OUTSIDE RECORDS SUMMARY | 2025-02-24 14:59 | XMS_ITS | Encounter Summary ---
Author Organization [employer] ([place], [place], [place], [place], [place]) Address [address] [place] [address] Care Team Providers Care Flight Mechanic Name Role Phone Unavailable Primary Care Provider Unavailabl e Encounter Details Date Type Department Care Team (Late st Contact Info) Description 04/15/2018 Transcribed Document [facility] [place] [facility] [place] [address] ProviderMg MD [place] [address] Social History Tobacco Use Types Packs/Day Years Used Date Smoking Tobacco: Never Assessed Sex and Gender Information Value Date Recorded Sex Assigned at Not on file Legal Sex Male 1:09 PM CDT Gender Identity Not on file Sexual Orientation Not on file documented as of this encounter Miscellaneous Notes * Cerner Conversion Note - Mg Ritchie MD - 04/15/2018 1:54 PM WIND TURBINE PERFORMANCE ENGINEER Patient: JOSE PEARSON Age: 47 years [...] , the patient was recently admitted to [facility] for right heart catheterization, he was [...] twice. He was therefore brought in to [facility] emergency room. Review of Systems Constitutional: [...] Refill(s) fluticasone 50 mcg/inh nasal spray: 1 [place], Nostrils Both, Daily, 0 Refill(s) montelukast 10 [...] Problem list: Medical angina / SNOMED CT 360183522 / Confirmed At risk for sleep apnea / IMO 83068993 / Confirmed cardiac defibulator / Confirmed interrogated at physicians office---02/22/13 pacemaker / SNOMED CT 9548013665 / Confirmed stroke / SNOMED CT 492704438 / Confirmed he had a stroke when they found the blood clot in valve 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 / Confirmed treated with blood thinners History of obstructive sleep apnea / IMO 80864261 / Confirmed high cholesterol / SNOMED CT 57718416 / Confirmed hypertension / SNOMED CT 2388475326 / Confirmed myocardial infarction / SNOMED CT 74579215 / Confirmed sesonal allergies / Confirmed, Active [...] offer AV miroslava ablation to prevent AF/RVR. Electronically signed by Morales Mejia Conversion Non Destructive Testing Engineer Cerner at 06/19/2022 10:54 PM CDT documented in this encounter Plan of Treatment Not on file documented as of this encounter Visit Diagnoses Not on filedocumented in this encounter
--- OUTSIDE RECORDS SUMMARY | 2025-02-24 14:59 | XMS_ITS | Encounter Summary ---
Author Organization [employer] ([place], [place], [place], [place], [place]) Address [address] [place] [address] Care Team Providers Care Chalk Machine Operator Name Role Phone Unavailable Primary Care Provider Unavailabl e Encounter Details Date Type Department Care Team (Late st Contact Info) Description 04/17/2018 Transcribed Document [facility] [place] [facility] [place] [address] ProviderMg MD [place] [address] Social History Tobacco Use Types Packs/Day Years Used Date Smoking Tobacco: Never Assessed Sex and Gender Information Value Date Recorded Sex Assigned at Not on file Legal Sex Male 1:09 PM CDT Gender Identity Not on file Sexual Orientation Not on file documented as of this encounter Miscellaneous Notes * [employer]ner Conversion Note - Historical ProviderMD - 04/17/2018 5:00 PM UNDERWRITING TECHNICIAN Chart Check - Review Order Profile Entered On: 04/17/2018 17:30 EST Performed On: 04/17/2018 17:00 EST by EVE NGUYEN RN Chart Check Chart Reviewed Date and Time : 04/17/2018 17:30 EST Powerplans Initiated/Discontinued as Appropriate : Yes All Active Orders Reviewed : Yes EVE NGUYEN RN - 04/17/2018 17:30 EST Electronically signed by Jackie [facility] Conversion Gravure Printing Machinist Cerner at 06/19/2022 11:09 PM CDT documented in this encounter Plan of Treatment Not on file documented as of this encounter Visit Diagnoses Not on filedocumented in this encounter
--- OUTSIDE RECORDS SUMMARY | 2025-02-24 14:59 | XMS_ITS | Encounter Summary ---
Author Organization [employer] ([place], [place], [place], [place], [place]) Address [address] [place] [address] Care Team Providers Care Manager Local Name Role Phone Unavailable Primary Care Provider Unavailabl e Encounter Details Date Type Department Care Team (Late st Contact Info) Description 04/16/2018 Transcribed Document [facility] [place] [facility] [place] [address] ProviderMg MD [facility] [place] [address] Social History Tobacco Use Types Packs/Day Years Used Date Smoking Tobacco: Never Assessed Sex and Gender Information Value Date Recorded Sex Assigned at Not on file Legal Sex Male 1:09 PM CDT Gender Identity Not on file Sexual Orientation Not on file documented as of this encounter Miscellaneous Notes * Cerner Conversion Note - Historical ProviderMD - 04/16/2018 2:00 AM CLOTH PIECER Electrocardiograph Operator Details Entered On: 04/16/2018 1:14 EST Performed [...]
--- OUTSIDE RECORDS SUMMARY | 2025-02-24 14:59 | XMS_ITS | Encounter Summary ---
Author Organization [employer] ([place], [place], [place], [place], [place]) Address [address] [place] [address] Care Team Providers Care Large Sheetfed Press Operator Name Role Phone Unavailable Primary Care Provider Unavailabl e Encounter Details Date Type Department Care Team (Late st Contact Info) Description 04/16/2018 Transcribed Document [facility] [place] [facility] [place] [address] ProviderMg MD [place] [address] Social History Tobacco Use Types Packs/Day Years Used Date Smoking Tobacco: Never Assessed Sex and Gender Information Value Date Recorded Sex Assigned at Not on file Legal Sex Male 1:09 PM CDT Gender Identity Not on file Sexual Orientation Not on file documented as of this encounter Miscellaneous Notes * [employer]ner Conversion Note - Historical ProviderMD - 04/16/2018 5:00 AM RECIPROCATING DRILL OPERATOR Chart Check - Review Order Profile Entered On: 04/16/2018 4:17 EST Performed On: 04/16/2018 5:00 EST by Ashely Townsend Rn Chart Check Chart Reviewed Date and Time : 04/16/2018 4:17 EST All Active Orders Reviewed : Yes Ashely Townsend Rn - 04/16/2018 4:17 EST Electronically signed by Morales Mejia Conversion Senior Sales Operations Analyst Cerner at 06/19/2022 11:05 PM CDT documented in this encounter Plan of Treatment Not on file documented as of this encounter Visit Diagnoses Not on filedocumented in this encounter
--- OUTSIDE RECORDS SUMMARY | 2025-02-24 14:59 | XMS_ITS | Encounter Summary ---
Author Organization [employer] ([place], [place], [place], [place], [place]) Address [address] [place] [address] Care Team Providers Care Salesperson Pianos And Organs Name Role Phone Unavailable Primary Care Provider Unavailabl e Encounter Details Date Type Department Care Team (Late st Contact Info) Description 04/15/2018 Transcribed Document [facility] [place] [facility] [place] [address] ProviderMg MD [facility] [place] [address] Social History Tobacco Use Types Packs/Day Years Used Date Smoking Tobacco: Never Assessed Sex and Gender Information Value Date Recorded Sex Assigned at Not on file Legal Sex Male 1:09 PM CDT Gender Identity Not on file Sexual Orientation Not on file documented as of this encounter Miscellaneous Notes * Cerner Conversion Note - Historical ProviderMD - 04/15/2018 10:08 [address] M[address]INE OPERATOR [facility] PT Charges Entered On: 04/15/2018 [...]
--- OUTSIDE RECORDS SUMMARY | 2025-02-24 14:59 | XMS_ITS | Encounter Summary ---
Author Organization [employer] ([place], [place], [place], [place], [place]) Address [address] [place] [address] Care Team Providers Care Sweep Press Operator Name Role Phone Unavailable Primary Care Provider Unavailabl e Encounter Details Date Type Department Care Team (Late st Contact Info) Description 04/18/2018 Transcribed Document [facility] [place] [facility] [place] [address] ProviderMg MD [facility] [place] [address] Social History Tobacco Use Types Packs/Day Years Used Date Smoking Tobacco: Never Assessed Sex and Gender Information Value Date Recorded Sex Assigned at Not on file Legal Sex Male 1:09 PM CDT Gender Identity Not on file Sexual Orientation Not on file documented as of this encounter Miscellaneous Notes * [employer]ner Conversion Note - Historical ProviderMD - 04/18/2018 5:00 AM PLUG AND MOLD FINISHER Chart Check - Review Order Profile [...]
--- OUTSIDE RECORDS SUMMARY | 2025-02-24 14:59 | XMS_ITS | Encounter Summary ---
Author Organization [email or web address] ([place], [place], [place], [place], [place]) Address [address] [place] [address] Care Team Providers Care Statue Carver Name Role Phone Unavailable Primary Care Provider Unavailabl e Encounter Details Date Type Department Care Team (Late st Contact Info) Description 04/18/2018 Transcribed Document [facility] [place] [address] [place] [address] ProviderMg MD [facility] [place], [place] [address] Social History Tobacco Use Types Packs/Day Years Used Date Smoking Tobacco: Never Assessed Sex and Gender Information Value Date Recorded Sex Assigned at Not on file Legal Sex Male 1:09 PM CDT Gender Identity Not on file Sexual Orientation Not on file documented as of this encounter Miscellaneous Notes * [employer] Conversion Note - Historical ProviderMD - 04/18/2018 2:00 AM DENTAL LABORATORY TECHNICIAN Cat Driver Details Entered On: 04/18/2018 4:38 EST Performed [...]
--- OUTSIDE RECORDS SUMMARY | 2025-02-24 14:59 | XMS_ITS | Encounter Summary ---
Author Organization [employer] ([place], [place], [place], [place], [place]) Address [address] [place] [address] Care Team Providers Care Formulation Scientist Name Role Phone Unavailable Primary Care Provider Unavailabl e Encounter Details Date Type Department Care Team (Late st Contact Info) Description 04/18/2018 Transcribed Document [facility] [place] [facility] [place] [address] ProviderMg MD [facility] [place] [address] Social History Tobacco Use Types Packs/Day Years Used Date Smoking Tobacco: Never Assessed Sex and Gender Information Value Date Recorded Sex Assigned at Not on file Legal Sex Male 1:09 PM CDT Gender Identity Not on file Sexual Orientation Not on file documented as of this encounter Miscellaneous Notes * [employer]ner Conversion Note - Mg ProviderMD - 04/18/2018 2:22 PM TRIMMER OPERATOR THREE KNIFE Care Management Assessment/Plan Entered On: 04/18/2018 14:23 EST Performed On: 04/18/2018 14:22 EST by Breann Ordaz, RN Care Management Note Anticipated Discharge Date : 04/17/2018 21:00 EST Care Management Note : Jim Sanchez set up appointment with [facility] endocrinology, CAREY cancelled Martin's appointment and faxed patient information over to [phone]...[facility] Care Management Note Report : Breann Ordaz, RN - 04/18/18 10:02:59 CM spoke with Rianna support services coordinator at Ángel Salazar's office, fax [phone]. Patient's requested date for start of care is in 2 weeks but b2b sales professional as scheduling out for 2-3 months. Patient is on the cancellation list at Dr. Salazar's with a July appointment time. Information sent to above fax, appointment time placed in discharge form...arh Breann Ordaz, RN - 04/17/18 13:45:24 Per provider notes, patient scheduled for a DCCV today 04/17/18. [place] to stop all alcohol use. Thyroid work up taking place during admission for new onset thyroid panel testing. Remains a home plan, no needs noted...[facility] Breann Ordaz RN - 04/16/18 [...] Home plan at discharge, no needs noted...[facility] Documentation Status Complete : Yes Breann Ordaz RN - 04/18/2018 14:22 EST documented in this encounter Plan of Treatment Not on file documented as of this encounter Visit Diagnoses Not on filedocumented in this encounter
--- OUTSIDE RECORDS SUMMARY | 2025-02-24 14:59 | XMS_ITS | Encounter Summary ---
Author Organization [employer] ([place], [place], [place], [place], [place]) Address [address] [place] [address] Care Team Providers Care Certification Officer Name Role Phone Unavailable Primary Care Provider Unavailabl e Encounter Details Date Type Department Care Team (Late st Contact Info) Description 04/17/2018 Transcribed Document [facility] [place] Medicine [address] [place] [address] ProviderMg MD [facility] [place], [place] [address] Social History Tobacco Use Types Packs/Day Years Used Date Smoking Tobacco: Never Assessed Sex and Gender Information Value Date Recorded Sex Assigned at Not on file Legal Sex Male 1:09 PM CDT Gender Identity Not on file Sexual Orientation Not on file documented as of this encounter Miscellaneous Notes * [employer] Conversion Note - Historical ProviderMD - 04/17/2018 2:00 AM CONTRACT PARALEGAL Open Hearth Furnace Laborer Details Entered On: 04/17/2018 3:17 EST Performed [...]
--- OUTSIDE RECORDS SUMMARY | 2025-02-24 14:59 | XMS_ITS | Encounter Summary ---
Author Organization [employer] ([place], [place], [place], [place], [place]) Address [address] [place] [address] Care Team Providers Care Sales Service Technician Name Role Phone Unavailable Primary Care Provider Unavailabl e Encounter Details Date Type Department Care Team (Late st Contact Info) Description 04/16/2018 Transcribed Document [facility] [place] [facility] [place] [address] ProviderMg MD [facility] [place] [address] Social History Tobacco Use Types Packs/Day Years Used Date Smoking Tobacco: Never Assessed Sex and Gender Information Value Date Recorded Sex Assigned at Not on file Legal Sex Male 1:09 PM CDT Gender Identity Not on file Sexual Orientation Not on file documented as of this encounter Miscellaneous Notes * [employer] Conversion Note - Historical ProviderMD - 04/16/2018 7:44 PM REVENUE SETTLEMENTS ADMINISTRATOR Event Note Entered On: 04/16/2018 19:45 EST Performed On: 04/16/2018 19:44 EST by CHARLA PHILLIPS RN Event Note Event Date/Time : 04/16/2018 19:44 EST Event Location : Assigned room Description of Event : Dr Hobbs called to DC amiodarone 400 mg po. CHARLA PHILLIPS RN - 04/16/2018 19:44 EST Electronically signed by Jackie [facility] Conversion Blood Bank Worker Jessica at 06/19/2022 10:59 PM CDT documented in this encounter Plan of Treatment Not on file documented as of this encounter Visit Diagnoses Not on filedocumented in this encounter
--- OUTSIDE RECORDS SUMMARY | 2025-02-24 14:59 | XMS_ITS | Encounter Summary ---
Author Organization [employer] ([place], [place], [place], [place], [place]) Address [address] [place] [address] Care Team Providers Care Ruby Software Developer Name Role Phone Unavailable Primary Care Provider Unavailabl e Encounter Details Date Type Department Care Team (Late st Contact Info) Description 04/18/2018 Transcribed Document [facility] [place] [facility] [place] [address] ProviderMg MD [facility] [place] [address] Social History Tobacco Use Types Packs/Day Years Used Date Smoking Tobacco: Never Assessed Sex and Gender Information Value Date Recorded Sex Assigned at Not on file Legal Sex Male 1:09 PM CDT Gender Identity Not on file Sexual Orientation Not on file documented as of this encounter Miscellaneous Notes * [employer] Conversion Note - Historical ProviderMD - 04/18/2018 5:00 AM MANAGER REQUIREMENTS Height and Weight, Routine Entered On: 04/18/2018 7:07 EST Performed On: 04/18/2018 5:00 EST by GREG MONROY RN Height and Weight, Routine Routine Weight Source : Standing scale Routine Weight Entry Format : [place] Routine Weight, Pounds : 229 lb Routine Weight, Ounces : 2 oz Routine Weight Calculation : 104.15 kg Height Source : Stated Height Entry Format : [place] Height, Feet : 6 ft Height, Inches : 0 Inch Clinical Height : 182.88 cm Body Surface Area (BSA), Routine : 2.26 m2 Body Mass Index (BMI), Routine : 31.14 kg/m2 GREG MONROY RN - 04/18/2018 7:07 EST Electronically signed by Jackie [facility] Conversion Lacquerer Cerner at 06/19/2022 10:57 PM CDT documented in this encounter Plan of Treatment Not on file documented as of this encounter Visit Diagnoses Not on filedocumented in this encounter
--- OUTSIDE RECORDS SUMMARY | 2025-02-24 14:59 | XMS_ITS | Encounter Summary ---
Author Organization [employer] ([place], [place], [place], [place], [place]) Address [address] [place] [address] Care Team Providers Care Health Editor Name Role Phone Unavailable Primary Care Provider Unavailabl e Encounter Details Date Type Department Care Team (Late st Contact Info) Description 04/17/2018 Transcribed Document [facility] [place] [facility] [place] [place] [address] ProviderMg MD [facility] [place] [id number] Social History Tobacco Use Types Packs/Day Years Used Date Smoking Tobacco: Never Assessed Sex and Gender Information Value Date Recorded Sex Assigned at Not on file Legal Sex Male 1:09 PM CDT Gender Identity Not on file Sexual Orientation Not on file documented as of this encounter Miscellaneous Notes * [employer]ner Conversion Note - Mg ProviderMD - 04/17/2018 6:18 PM MEDICAL MANAGEMENT SPECIALIST Patient: JOSE PEARSON Age: 47 years [...] Refill(s) fluticasone 50 mcg/inh nasal spray: 1 [place], Nostrils Both, Daily, 0 Refill(s) montelukast 10 [...] loss over the last month - consult [facility] Htn - stable here, cont coreg, Entresto, Aldactone documented in this encounter Plan of Treatment Not on file documented as of this encounter Visit Diagnoses Not on filedocumented in this encounter
--- OUTSIDE RECORDS SUMMARY | 2025-02-24 14:59 | XMS_ITS | Encounter Summary ---
Author Organization [employer] ([place], [place], [place], [place], [place]) Address [address] [place] [address] Care Team Providers Care Precision Thread Grinder Operator Name Role Phone Unavailable Primary Care Provider Unavailabl e Encounter Details Date Type Department Care Team (Late st Contact Info) Description 04/18/2018 Transcribed Document [facility] [place] [facility] [place] [address] ProviderMg MD [place] [address] Social History Tobacco Use Types Packs/Day Years Used Date Smoking Tobacco: Never Assessed Sex and Gender Information Value Date Recorded Sex Assigned at Not on file Legal Sex Male 1:09 PM CDT Gender Identity Not on file Sexual Orientation Not on file documented as of this encounter Miscellaneous Notes * [employer] Conversion Note - Mg Ritchie MD - 04/18/2018 9:54 AM BILLBOARD ERECTOR Patient: JOSE PEARSON Age: 47 years Sex: [...] Gastrointestinal: Normal bowel sounds. Integumentary: Warm, Dry, Sandy. Results Review General results Today's results: 04/18/2018 [...]
--- OUTSIDE RECORDS SUMMARY | 2025-02-24 14:59 | XMS_ITS | Encounter Summary ---
Author Organization [employer] ([place], [place], [place], [place], [place]) Address [address] [place] [address] Care Team Providers Care Time Study Clerk Name Role Phone Unavailable Primary Care Provider Unavailabl e Encounter Details Date Type Department Care Team (Late st Contact Info) Description 04/18/2018 Transcribed Document [facility] [place] Family Medicine [facility] [place] [address] ProviderMg MD [facility] [place] [address] Social History Tobacco Use Types Packs/Day Years Used Date Smoking Tobacco: Never Assessed Sex and Gender Information Value Date Recorded Sex Assigned at Not on file Legal Sex Male 1:09 PM CDT Gender Identity Not on file Sexual Orientation Not on file documented as of this encounter Miscellaneous Notes * Cerner Conversion Note - Mg ProviderMD - 04/18/2018 10:00 AM GEARMAN Care Management Assessment/Plan Entered On: 04/18/2018 10:02 EST Performed On: 04/18/2018 10:00 EST by Breann Ordaz, RN Care Management Note Anticipated Discharge Date : 04/17/2018 21:00 EST Care Management Note : CAREY spoke with Rianna workforce management coordinator at [facility]el [facility]azar[facility] office, fax [phone]. Patient's requested date for start of care is in 2 weeks but product support specialist as scheduling out for 2-3 months. Patient is on the cancellation list at Dr. Salazar's with a July appointment time. Information sent to above fax, appointment time placed in discharge form...arh Care Management Note Report : Breann Ordaz, RN - 04/17/18 13:45:24 Per provider notes, patient scheduled for a DCCV today 04/17/18. [place] to stop all alcohol use. Thyroid work [...] . Home plan at discharge, no needs noted...[facility] Documentation Status Complete : Yes Breann Ordaz, RN - 04/18/2018 10:00 EST Electronically signed by Jackie [facility] Conversion Fruit Grower Cerner at 06/19/2022 11:07 PM CDT documented in this encounter Plan of Treatment Not on file documented as of this encounter Visit Diagnoses Not on filedocumented in this encounter
--- OUTSIDE RECORDS SUMMARY | 2025-02-24 14:59 | XMS_ITS | Encounter Summary ---
Author Organization [employer] ([place], [place], [place], [place], [place]) Address [address] [place] [address] Care Team Providers Care Veterinary Manager Name Role Phone Unavailable Primary Care Provider Stefan e Encounter Details Date Type Department Care Team (Late st Contact Info) Description 04/18/2018 Transcribed Document [facility] [place] [facility] [place] [address] ProviderMg MD [facility] [place] [address] Social History Tobacco Use Types Packs/Day Years Used Date Smoking Tobacco: Never Assessed Sex and Gender Information Value Date Recorded Sex Assigned at Not on file Legal Sex Male 1:09 PM CDT Gender Identity Not on file Sexual Orientation Not on file documented as of this encounter Miscellaneous Notes * Cerner Conversion Note - gM ProviderMD - 04/18/2018 11:31 AM MDM SR Patient: JOSE PEARSON Age: 47 years Sex: [...] Refill(s) fluticasone 50 mcg/inh nasal spray: 1 [place], Nostrils Both, Daily, 0 Refill(s) montelukast 10 [...] Problem list: Medical angina / SNOMED CT 188782090 / Confirmed At risk for sleep apnea / IMO 55752352 / Confirmed cardiac defibulator / Confirmed interrogated at physicians office---02/22/13 pacemaker / SNOMED CT 9749312460 / Confirmed stroke / SNOMED CT 210134928 / Confirmed he had a stroke when they found the blood clot in valve 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 / Confirmed treated with blood thinners History of obstructive sleep apnea / IMO 34129081 / Confirmed high cholesterol / SNOMED CT 47610250 / Confirmed hypertension / SNOMED CT 0209701164 / Confirmed myocardial infarction / SNOMED CT 93930462 / Confirmed sesonal allergies / Confirmed, Active [...]
--- OUTSIDE RECORDS SUMMARY | 2025-02-24 14:59 | XMS_ITS | Encounter Summary ---
Author Organization [employer] ([place], [place], [place], [place], [place]) Address [address] [place] [address] Care Team Providers Care Clean In Places Operator Name Role Phone Unavailable Primary Care Provider Unavailabl e Encounter Details Date Type Department Care Team (Late st Contact Info) Description 04/16/2018 Transcribed Document [facility] [place] Family Medicine [place] [address] ProviderMg [place] [address] Social History Tobacco Use Types Packs/Day Years Used Date Smoking Tobacco: Never Assessed Sex and Gender Information Value Date Recorded Sex Assigned at Not on file Legal Sex Male 1:09 PM CDT Gender Identity Not on file Sexual Orientation Not on file documented as of this encounter Miscellaneous Notes * Cerner Conversion Note - Historical ProviderMD - 04/16/2018 2:19 PM STAFF COMBAT INFORMATION CENTER OFFICER Consult Phone Call Documentation Entered On: 04/16/2018 15:01 EST Performed On: 04/16/2018 14:19 EST by TEAGAN CARCAMO Phone Call for Consults Physician Covering for Consult : DEREK DURAND MD MILLER, BRITTANY - 04/16/2018 15:01 EST Electronically signed by Morales Mejia Conversion Auto Air Conditioning Installer Cerner at 06/19/2022 11:05 PM CDT documented in this encounter Plan of Treatment Not on file documented as of this encounter Visit Diagnoses Not on filedocumented in this encounter
--- OUTSIDE RECORDS SUMMARY | 2025-02-24 14:59 | XMS_ITS | Encounter Summary ---
Author Organization [email or web address] ([place], [place], [place], [place], [place]) Address [address] [place] [address] Care Team Providers Care Carrot Grader Inspector Name Role Phone Unavailable Primary Care Provider Unavailabl e Encounter Details Date Type Department Care Team (Late st Contact Info) Description 04/17/2018 Transcribed Document [facility] [place] [facility] [place] [address] ProviderMg MD [facility] [place] [address] Social History Tobacco Use Types Packs/Day Years Used Date Smoking Tobacco: Never Assessed Sex and Gender Information Value Date Recorded Sex Assigned at Not on file Legal Sex Male 1:09 PM CDT Gender Identity Not on file Sexual Orientation Not on file documented as of this encounter Miscellaneous Notes * Cerner Conversion Note - Mg ProviderMD - 04/17/2018 1:43 PM FOREST NURSERY WORKER Care Management Assessment/Plan Entered On: 04/17/2018 13:45 EST Performed On: 04/17/2018 13:43 EST by Breann Ordaz, RN Care Management Note Anticipated Discharge Date : 04/17/2018 21:00 EST Care Management Note : Per provider notes, patient scheduled for a DCCV today 04/17/18. [place] to stop all alcohol use. Thyroid work [...] Disposition Note-CM Discharge To Care Management : Home/Residential/Assisted or Self Care -01 Breann Ordaz RN - 04/17/2018 13:43 EST Electronically signed by Jackie [facility] Conversion Sheet Metal Welder Cerner at 06/19/2022 11:09 PM CDT documented in this encounter Plan of Treatment Not on file documented as of this encounter Visit Diagnoses Not on filedocumented in this encounter
--- OUTSIDE RECORDS SUMMARY | 2025-02-24 14:59 | XMS_ITS | Encounter Summary ---
Author Organization [employer] ([place], [place], [place], [place], [place]) Address [address] [place] [address] Care Team Providers Care Chiropractor Sole Practitioner Name Role Phone Unavailable Primary Care Provider Unavailabl e Encounter Details Date Type Department Care Team (Late st Contact Info) Description 04/17/2018 Transcribed Document [facility] [place] Family Medicine [facility] [place] [address] ProviderMg MD [address] [place] [address] Social History Tobacco Use Types Packs/Day Years Used Date Smoking Tobacco: Never Assessed Sex and Gender Information Value Date Recorded Sex Assigned at Not on file Legal Sex Male 1:09 PM CDT Gender Identity Not on file Sexual Orientation Not on file documented as of this encounter Miscellaneous Notes * Cerner Conversion Note - Mg ProviderMD - 04/17/2018 6:44 PM RAG COLLECTOR [address] [place] [address] Patient Copy Patient Information: Name: JOSE PEARSON Current Date: 04/17/2018 18:44:56 : 1970 Patient Address: [address] [place] [id number] Patient Attending Physician: KATY FRIAS MD-CAR Primary [...] nasal (fluticasone 50 mcg/inh nasal spray) 1 [place](s) Nostrils Both Every Day. furosemide (Lasix 40 [...] may report side effects to FDA at 0-026-ENH-3578. What other drugs will affect dofetilide? Other drugs may interact with dofetilide, including prescription and ondi-ycm-asdthuv medicines, vitamins, and herbal products. Tell each [...] to ensure that the information provided by [employer]. ('[employer]') is accurate, up-to-date, and complete, but no guarantee is made to that effect. Drug information contained herein may be time sensitive. [employer] information has been compiled for use by healthcare practitioners and consumers in the [place] and therefore [employer] does not warrant that uses outside of the [place] are appropriate, unless specifically indicated otherwise. [employer] drug information does not endorse drugs, diagnose patients or recommend therapy. [employer] drug information is an informational resource designed [...] effective or appropriate for any given patient. [employer] does not assume any responsibility for any aspect of healthcare administered with the aid of information [employer] provides. The information contained herein is not intended to cover all possible uses, directions, precautions, warnings, drug interactions, allergic reactions, or adverse effects. If you have questions about the drugs you are taking, check with your doctor, nurse or pharmacist. Copyright 1178-2792 [employer]. Version: 4.01. Revision Date: 06/17/2015. CIGARETTE SMOKING: The facts are clear, cigarette smoking will shorten your life. Smoking can cause many illnesses along the way. As a healthcare provider, we recommend that you stop smoking. Assistance with quitting is available by contacting 0-956-QBJJ-NOW. This is a free resource providing counseling, [...] Be sure to sign up for the [employer] patient portal, which gives you 26/09 access to your medical information ??? including these discharge instructions ??? using your computer, smartphone, or tablet. Just go to [employer] to get started. Questions? Call . [facility] would like to thank you for allowing us to assist you with your healthcare needs. ANASTASIA Rich DENNIS PAUL, (or account development representative) have received the above patient education materials/instructions and have verbalized understanding: Patient Signature _ Date/Time Patient Project Asst Signature (if needed) Date/Time Clinician/Hospital Project Asst Signature (if needed) Date/Time Electronically signed by Jackie, [facility] Conversion Forklift Technician Cerner at 06/19/2022 11:09 PM CDT documented in this encounter Plan of Treatment Not on file documented as of this encounter Visit Diagnoses Not on filedocumented in this encounter
[2025-02-24] MEDS: IRON SUCROSE COMPLEX 200 MG in 0.9 % SODIUM CHLORIDE 100 ML 220 MG IV (15:01)
[2025-02-24 15:02] VITALS: PULSE 65; RESP 15; TEMP 36.6; O2SAT 100
[2025-02-24 15:53] VITALS: PULSE 67; RESP 16; TEMP 36.4; O2SAT 100
[2025-02-24] MEDS: SODIUM CHLORIDE 0.9% 10ML FLUSH SYRINGE 10 ML IV (15:56)
--- OUTSIDE RECORDS SUMMARY | 2025-03-06 19:00 | XMS_ITS | Clinical Summary ---
Author Organization Unknown Care Team Providers Care Splicing Machine Operator Automatic Name Role Phone JUAN LUIS LERMA, MOLLY Unavailable Unavailable KANG PT, YENNI Unavailable Unavailable ABELINO OT, TANO Unavailable Unavailable HUA HAND CROCHETER, MARTA Unavailable Unavailable JOSE L OXYGEN THERAPIST, FLOR[place] Unavailable Unavailable JOSE ALEJANDRO RN, NANO Unavailable Unavailable Payers Payer Name Policy Type Policy Number Effective Date Expira tion Date [employer].AUTH [id number] SECONDARYONLY.SHANA DGM [id number] Problems Condition Name Condition Details Condition Category Status Onset Date Resolution Date Last Treatment Date Treating Clinician Comments HEMIPLGA FOLLOWING CEREBRAL INFRC AFFECTING LEFT NONDOM SIDE Active 07-11 00:00: 00 HYPERTENSIVE HEART DISEASE WITH HEART FAILURE Active 07-11 00:00: 00 UNSPECIFIED SYSTOLIC (CONGESTIVE) HEART FAILURE Active 07-11 00:00: 00 ATHSCL HEART DISEASE OF [place] CORONARY ARTERY W/O ANG PCTRS Active 07-11 00:00: 00 UNSPECIFIED ATRIAL FIBRILLATION Active 07-11 00:00: 00 OTHER CARDIOMYOPAT HIES Active 07-11 00:00: 00 PURE HYPERCHOLEST EROLEMIA, UNSPECIFIED Active 07-11 00:00: 00 PERSONAL HISTORY OF PNEUMONIA (RECURRENT) Active 904 00:00: 00 DEPENDENCE ON WHEELCHAIR Active 07-11 00:00: 00 PRESENCE OF HEART ASSIST DEVICE Active 07-11 00:00: 00 LONG-TERM (CURRENT) USE OF INHALED STEROIDS Active 07-11 00:00: 00 LONG-TERM (CURRENT) USE OF ANTICOAGULAN TS Active 07-11 00:00: 00 Allergies, Adverse Reactions, Alerts Allergy Name Allergy Type Status Severity Reaction(s) Onset Date Inactive Date Treating Clinician Comments CHLORHEXIDIN E Propensity to adverse reactions Active 07-11 10:37: 02 Medications Ordered Medication Name Filled Medication Name Start Date Stop Date Current Medication? Ordering Clinician Indication Dosage Frequency Signature (SIG) Comments Components acetaminoph en 325 mg capsule 07-11 00:00: 00 Yes [id number] NEEDED FOR PAIN 975 mg EVERY 6 HOURS 975 mg EVERY 6 HOURS (route: oral) Med Classific ation: Analgesic , Anti-infl ammatory or Antipyret ic albuterol sulfate HFA 90 mcg/actuati on aerosol inhaler 07-11 00:00: 00 Yes [id number] NEEDED FOR SHORTNESS OF BREATH 2 puff NEEDED 2 puff NEEDED (route: inhalation ) Med Classific ation: Respirato ry Therapy Agents Banophen 25 mg capsule 07-11 00:00: 00 Yes [id number] PAIN & ITCHING 25 mg 2 TIMES DAILY 25 mg 2 TIMES DAILY (route: oral) Med Classific ation: Respirato ry Therapy Agents bupropion HCl XL 300 mg 24 hr tablet, extended release 07-11 00:00: 00 Yes [id number] DEPRESSION 300 mg DAILY 300 mg DAILY (route: oral) Med Classific ation: Central Nervous System Agents cephalexin 500 mg capsule 07-11 00:00: 00 Yes [id number] ATB 1000 mg 2 TIMES DAILY 1000 mg 2 TIMES DAILY (route: oral) Med Classific ation: Anti-Infe ctive Agents cetirizine 10 mg tablet 07-11 00:00: 00 Yes [id number] ALLERGIES 10 mg BEDTIME 10 mg BEDTIME (route: oral) Med Classific ation: Respirato ry Therapy Agents Fiber Gummies 1.7 gram chewable tablet 07-11 00:00: 00 Yes [id number] GI 3 tablet DAILY 3 tablet DAILY (route: oral) Med Classific ation: Gastroint estinal Therapy Agents fludrocorti sone 0.1 mg tablet 07-11 00:00: 00 Yes [id number] CORTICOSTER OID 0.1 mg DAILY 0.1 mg DAILY (route: oral) Med Classific ation: Endocrine fluoxetine 40 mg capsule 07-11 00:00: 00 Yes [id number] DEPRESSION 40 mg DAILY 40 mg DAILY (route: oral) Med Classific ation: Central Nervous System Agents ibuprofen 200 mg capsule 07-11 00:00: 00 Yes [id number] NEEDED FOR PAIN 200 mg NEEDED 200 mg NEEDED (route: oral) Med Classific ation: Analgesic , Anti-infl ammatory or Antipyret ic ipratropium 0.5 mg-albutero l 2.5 mg/2.5 mL solution for nebulizatio n 07-11 00:00: 00 Yes [id number] NEEDED FOR SHORTNESS OF BREATH 0.5 mg NEEDED 0.5 mg NEEDED (route: inhalation ) Med Classific ation: Respirato ry Therapy Agents Magnesium Complex 300 mg magnesium tablet 07-11 00:00: 00 Yes [id number] SUPPLEMENTS 1 tablet 2 TIMES DAILY 1 tablet 2 TIMES DAILY (route: oral) Med Classific ation: Electroly te Balance-N utritiona l Products melatonin 10 mg capsule 07-11 00:00: 00 Yes [id number] SLEEP 10 mg BEDTIME 10 mg BEDTIME (route: oral) Med Classific ation: Central Nervous System Agents metoprolol succinate ER 25 mg tablet,exte nded release 24 hr 07-11 00:00: 00 Yes [id number] HTN 25 mg DAILY 25 mg DAILY (route: oral) Med Classific ation: Cardiovas cular Therapy Agents montelukast 10 mg tablet 07-11 00:00: 00 Yes [id number] ASTHMA 10 mg DAILY 10 mg DAILY (route: oral) Med Classific ation: Respirato ry Therapy Agents Mucus Relief ER 600 mg tablet, extended release 07-11 00:00: 00 Yes [id number] CONGESTION 1200 mg 2 TIMES DAILY 1200 mg 2 TIMES DAILY (route: oral) Med Classific ation: Respirato ry Therapy Agents omeprazole 40 mg capsule,del ayed release 07-11 00:00: 00 Yes [id number] GERD 40 mg DAILY 40 mg DAILY (route: oral) Med Classific ation: Gastroint estinal Therapy Agents rosuvastati n 20 mg tablet 07-11 00:00: 00 Yes [id number] CHOLESTEROL 20 mg BEDTIME 20 mg BEDTIME (route: oral) Med Classific ation: Cardiovas cular Therapy Agents Senna Lax 8.6 mg tablet 07-11 00:00: 00 Yes [id number] LAXATIVE 8.6 mg BEDTIME 8.6 mg BEDTIME (route: oral) Med Classific ation: Gastroint estinal Therapy Agents sotalol 120 mg tablet 07-11 00:00: 00 Yes [id number] ARRHYTHMIAS 120 mg 2 TIMES DAILY 120 mg 2 TIMES DAILY (route: oral) Med Classific ation: Cardiovas cular Therapy Agents spironolact one 25 mg tablet 07-11 00:00: 00 Yes [id number] DIURETIC 25 mg DAILY 25 mg DAILY (route: oral) Med Classific ation: Cardiovas cular Therapy Agents tamsulosin 0.4 mg capsule 07-11 00:00: 00 Yes [id number] PROSTATE 0.4 mg DAILY 0.4 mg DAILY (route: oral) Med Classific ation: Genitouri nary Therapy warfarin 10 mg tablet 07-11 00:00: 00 Yes [id number] BLOOD THINNER 10 mg DAILY 10 mg DAILY (route: oral) Med Classific ation: Hematolog ical Agents doxycycline hyclate 100 mg capsule 11-08 00:00: 00 11-09 23:59 :00 No [id number] PNEUMONIA 1 capsule 2 TIMES DAILY 1 capsule 2 TIMES DAILY (route: oral) Med Classific ation: Anti-Infe ctive Agents Vital Signs Vital Name Observation Time Observation Value Commen ts Temperature 2025-02-21 14:08:00.000 98.7 [degF] Temperature 2025-02-20 12:59:00.000 98.6 [degF] Temperature 2025-01-16 15:54:00.000 97.2 [degF] Pulse 2025-02-21 14:08:00.000 84 /min Pulse 2025-02-20 12:59:00.000 61 /min Pulse 2025-02-06 13:21:00.000 80 /min Pulse 2025-01-16 15:54:00.000 91 /min O2 Saturation (%) 2025-02-21 14:08:00.000 98 % O2 Saturation (%) 2025-02-06 13:21:00.000 97 % O2 Saturation (%) 2025-01-16 15:54:00.000 97 % Respirations 2025-02-21 14:08:00.000 17 /min Respirations 2025-02-20 12:59:00.000 18 /min Respirations 2025-02-06 13:21:00.000 18 /min Respirations 2025-01-16 15:54:00.000 18 /min Plan of Treatment Planned Activity Planned Date Details Comments Future Scheduled Test AGENCY MAY PERFORM A RESUMPTION OF CARE VISIT FOLLOWING ANY HOSPITAL ADMISSION. PT TO EVALUATE, OBSERVE / ASSESS, AND MONITOR, HAND CROCHETER TO OBSERVE AND MONITOR, PROVIDE SKILLED THERAPEUTIC INTERVENTION, ACTIVITY, EDUCATION, AND TRAINING TO ADDRESS; [code = AGENCY MAY PERFORM A RESUMPTION OF CARE VISIT FOLLOWING ANY HOSPITAL ADMISSION. PT TO EVALUATE, OBSERVE / ASSESS, AND MONITOR, HAND CROCHETER TO OBSERVE AND MONITOR, PROVIDE SKILLED THERAPEUTIC INTERVENTION, ACTIVITY, EDUCATION, AND TRAINING TO ADDRESS;] Future Scheduled Test PT/HAND CROCHETER TO PERFORM INTERVENTIONS TO MAINTAIN CURRENT FUNCTION DUE TO CVA AND/OR TO PREVENT OR SLOW FURTHER FUNCTIONAL DECLINE. [code = PT/HAND CROCHETER TO PERFORM INTERVENTIONS TO MAINTAIN CURRENT FUNCTION DUE TO CVA AND/OR TO PREVENT OR SLOW FURTHER FUNCTIONAL DECLINE.] Goal 2024-09-04 Patient Goal - I WANT TO GET AROUND BETTER Goal 2024-11-07 Patient Goal - I WANT TO GET AROUND BETTER Goal 2025-01-03 Patient Goal - I WANT TO GET AROUND BETTER Goal Patient Goal - I WANT TO GET AROUND BETTER Goal Provider Goal - Goal Provider Goal - PT LTG: CAREGIVER WILL DEMONSTRATE ABILITY TO IMPLEMENT THERAPEUTIC RECOMMENDATIONS TO PERFORM PROM OF LOWER EXTREMITIES, TRANSFER SAFETY TO AND FROM POWER CHAIR, BED MOBILITY, AND HEP FROM MOD TO IND WITHIN 8 WEEKS PT LTG: THE PATIENT WILL SLOW OR MINIMIZE THE RISK OF DECLINE IN CONTRACTURES AND PAIN ASSOCIATED WITH POST CVA THROUGH EFFECTIVE CAREGIVER IMPLEMENTATION OF THE MAINTENANCE THERAPY PROGRAM WITHIN 8 WEEKS Progress Notes Progress Notes <paragraph>[Visit Date: 2024 by MARLENE MOLINA OT]:</paragraph><paragraph>PROVIDED CARE:PATIENT IS A 54 YEAR OLD MALE WITH LEFT SIDE AFFECTED CVA WITH NOTABLE PMH OF AFIB, CHF, HTN THAT HAS NEGATIVELY IMPACTED HIS FUNCTIONAL CAPACITY. PATIENT RESIDES IN A ONE STORY HOME, SPOUSE IS HIS PRIMARY CAREGIVER. PATIENT HAS A DAILY PAID CAREGIVER, IS PRIMARILY BEDBOUND. PATIENT IS HOMEBOUND, REQUIRES PHYSICAL A FOR ALL OUT OF HOME APPOINTMENTS WHICH ARE VERY TAXING FOR PATIENT AT THIS TIME.</paragraph> Encounters Start Date/Time End Date/Time Encounter Type Admission Type Attending [facility] Care Department Encounter ID Discharge Date Discharge Status Discharge Condition Discharge Reason Percent Goals Met 2025-01-07 00:00:00 2025-03-07 00:00:00 Outpatient RECERTIFIC ATION YENNI KAPADIA [facility] [id number] 0.00
== END 2025-02-24 16:01 | disposition home or self-care (01) ==
LOC: INF 14:50
PROVIDERS: PCP Pediatrics; Visit Provider Internal Medicine Cardiovascular Disease
DX: D50.9 Iron deficiency anemia, unspecified (principal)
CPT/HCPCS: 96365; J1756

== ENCOUNTER 2025-03-03 10:12 | Outpatient (CLI) | payer BC, MEDICAID, SELFPAY ==
--- OUTSIDE RECORDS SUMMARY | 2018-11-13 12:05 | XMS_ITS | Encounter Summary ---
[facility] [address] [place] [address] Care Team Providers Care Retail Sales Associate Seasonal Name Role Phone Herberth Perez MD Primary Care Provider Reason for Visit * Diagnostic Imaging (Routine) - Closed Specialty Diagnoses / Procedures Referred By Contac t Referred To Contact Radiology Diagnoses Solitary thyroid nodule Procedures US Thyroid Zaida Banks MD [address] [place] [address] Phone: tel: fax: [facility] [address] [place] [address] Phone: tel: fax: Referral ID Status Reason Start Date Expiration Date Visits Re quested Visits Authorized [id number] Closed 11/13/2018 11/13/2019 1 1 Encounter Details Date Type Department Care Team (Late st Contact Info) Description 11/13/2018 1:05 PM EDT Hospital Encounter [facility] [address] [place] [address] Social History Tobacco Use Types [...] on filedocumented in this encounter Care Teams Retail Sales Associate Seasonal Relationship Specialty Start Date End Date Herberth Perez MD [address] [place] [address] [place] [address] PCP - General Internal Medicine 04/22/17 documented as of this encounter
--- OUTSIDE RECORDS SUMMARY | 2019-11-20 09:45 | XMS_ITS | Encounter Summary ---
Author Organization [facility] Address [address] [place] [address] Care Team Providers Care Oracle Data Warehouse Developer Name Role Phone Herberth Perez MD Primary Care Provider [phone] Reason for Visit * Diagnostic Imaging (Routine) - Closed Specialty Diagnoses / Procedures Referred By Contac t Referred To Contact Radiology Diagnoses Solitary thyroid nodule Procedures US Thyroid Zaida Banks MD [address] [place] [address] Phone: tel: fax: [facility] [address] [place] [address] Phone: tel: fax: Referral ID Status Reason Start Date Expiration Date Visits Re quested Visits Authorized [id number] Closed 11/20/2019 11/19/2020 1 1 Encounter Details Date Type Department Care Team (Late st Contact Info) Description 11/20/2019 10:45 AM EDT Hospital Encounter [facility] [address] [place] [address] Social History Tobacco Use Types [...] on filedocumented in this encounter Care Teams Oracle Data Warehouse Developer Relationship Specialty Start Date End Date Herberth Perez MD [address] [place] [address] [place] [address] PCP - General Internal Medicine 04/22/17 documented as of this encounter
--- OUTSIDE RECORDS SUMMARY | 2025-01-06 12:34 | XMS_ITS | Encounter Summary ---
Author Organization Healthcare Address [address] [place] [address] Care Team Providers Care Clinic Receptionist Name Role Phone Herberth Perez MD Primary Care Provider [phone] Gracia Petersen TEXTILES PRINTER Unavailable [phone] Yunior Solorzano MD Unavailable Ross Baez DO Unavailable [phone] Edith Aleman RN Unavailable Unavailable Encounter Details Date Type Department Care Team (Latest Contact Info) Description 01/06/2025 12:34 PM EST - 01/06/2025 11:59 PM [facility] Hospital Encounter Cardiac Imaging [address] [place] [address] ICD (implantable cardioverter-defibr illator) in place Discharge [...] place to sleep or slept in a intermediate (including now)? No 12/19/2023 PHQ-9 Answer Date [...] any time in the past 12 m [facility], were you homeless or living in a intermediate (including now)? No 04/08/2024 CAGE ASSESSMENT Answer [...] drink first t janine in the morning (EYE-INJECTION MOLDING ENGINEER) to steady your nerves or to get rid of a hangover? 0 09/19/2021 CAGE Questionnaire Score 0 022 Utilities Answer Date Recorded In the past 12 months has th e [employer], [employer], oil, or water [employer] threatened to shut off services in your [...] every night. Delta 9 gummies purchased in [place] omeprazole (PriLOSEC) [address] capsule Take [...] daily at 500 mL/hr over 60 minutes. [address] mL 11 12/25/2024 5 sotalol (Betapace) 120 MG tablet Take 1 tablet (120 mg) by mouth in the morning and 1 tablet (120 mg) before bedtime. 180 tablet 3 05/28/2024 5 documented as of this encounter Plan of Treatment Upcoming Encounters Date Type Department Care Team (Late st Contact Info) Description 04/22/2025 9:00 AM EST Ancillary Procedure [facility] [place] [address] [place] [address] documented as of this encounter Goals Goal Patient Goal Type Associated Problems Recent Progress Patient-Stated? Author LVAD Short Term Goal General On track( 024 11:53 AM EDT) Yes Katrin Oviedo RN Note: - 07/04/23: Patient states he wants to attend a wedding in November in [place] LVAD Prison Goal General On track( 024 11:53 AM EDT) Yes Katrin Oviedo RN Note: - 07/04/23: Patient states he wants to meet his grandchild when they are born in November documented as of this encounter Procedures Procedure Name Priority Date/Time Associated Diagnosis Comments CARDIAC DEVICE CHECK CHECK - REMOTE ALERT Routine 01/06/2025 12:34 PM EST ICD (implantable cardioverter-defibr illator) in place documented in this encounter Results * CARDIAC DEVICE CHECK - REMOTE ALERT - ICD (01/06/2025 12:34 PM EST) Anatomical Region Laterality Modality Other Narrative 01/06/2025 4:17 PM EST [facility] EP - Remote CIED alert (non-scheduled) Name: Jose Pearson Date: 01/06/2025 : 1970 Age: 54 y.o. Indication for alert: NSVT (V>A) Device: Crime Victim Specialist: Zavaleta DIGITAL MUSIC INSTRUCTOR-ICD Summary: NSVT event, occurring 01/03, egm does not demonstrate onset, can visualize termination, duration at least 14 seconds Rate appears to flucuate in and out of VT-1 zone (150 bpm, with therapy) Action(s): Next apt with VAD 01/28/25 See attached report for CIED details Dina [...] plan has been documented for the patient 01/06/2025 8:41 AM EST documented as of this encounter Care Teams Clinic Receptionist Relationship Specialty Start Date End Date Herberth Perez MD [address] [place] [address] PCP - General 07/17/20 Gracia Petersen APRN [address] [place] [address] Nurse Practitioner Internal Medicine 08/06/20 Yunior Solorzano MD [address] [place] [address] Consulting Physician Gastroenterology 07/18/22 Ross Baez DO [address] [phone] Surgeon Cardiothoracic Surgery 07/18/22 Edith Aleman, TRANSITION PROGRAM MANAGER None VAD Coordinator 10/14/24 documented as of this encounter
--- OUTSIDE RECORDS SUMMARY | 2025-01-20 13:30 | XMS_ITS | Encounter Summary ---
Author Organization Healthcare Address [address] [place] [address] Care Team Providers Care Brim Cutter Name Role Phone Herberth Perez MD Primary Care Provider [phone] Gracia Petersen DIAGNOSTIC TECH Unavailable [phone] Yunior Solorzano MD Unavailable [phone] Ross Baez DO Unavailable [phone] Edith Aleman RN Unavailable Unavailable Encounter Details Date Type Department Care Team (Latest Contact Info) Description 01/20/2025 1:30 PM EST - 01/20/2025 11:59 PM [facility] Hospital Encounter Cardiac Imaging [address] [place] [phone] ICD (implantable cardioverter-defibr illator) in place Discharge [...] place to sleep or slept in a group home (including now)? No 12/19/2023 PHQ-9 Answer [...] any time in the past 12 m [facility], were you homeless or living in a group home (including now)? No 04/08/2024 CAGE ASSESSMENT [...] drink first t janine in the morning (EYE-TARE WEIGHER) to steady your nerves or to get rid of a hangover? 0 09/19/2021 CAGE Questionnaire Score 0 022 Utilities Answer Date Recorded In the past 12 months has th e [employer], [employer] oil, or water [employer] threatened to shut off services in your [...] daily at 1,000 mL/hr over 60 minutes. 56682 mL 11 01/08/2025 tamsulosin (Flomax) 0.4 MG [...] Description 04/22/2025 9:00 AM EST Ancillary Procedure [facility] [place] [address] [place] [address] documented as of this encounter Goals Goal Patient Goal Type Associated Problems Recent Progress Patient-Stated? Author LVAD Short Term Goal General On track( 024 11:53 AM EDT) Yes Katrin Oviedo RN Note: - 07/04/23: Patient states he wants to attend a wedding in November in [place] LVAD Fpc Goal General On track( 024 11:53 AM [...] documented as of this encounter Care Teams Brim Cutter Relationship Specialty Start Date End Date Herberth Perez MD [address] [place] [address] PCP - General 07/17/20 Gracia Petersen APRN [address] [place] [address] Nurse Practitioner Internal Medicine 08/06/20 Yunior Solorzano MD [address] [place] [address] Consulting Physician Gastroenterology 07/18/22 Ross Baez, DO [address] [place] [address] Surgeon Cardiothoracic Surgery 07/18/22 Edith Aleman, GAS APPLIANCE ADJUSTER None VAD Coordinator 10/14/24 documented as of this encounter
--- OUTSIDE RECORDS SUMMARY | 2025-01-28 08:57 | XMS_ITS | Encounter Summary ---
Author Organization [facility] Address [address] [place] [address] Care Team Providers Care Document Management Analyst Name Role Phone Herberth Perez MD Primary Care Provider [phone] Gracia Petersen BLOOD DONOR UNIT ASSISTANT Unavailable [phone] Yunior Solorzano MD Unavailable [phone] Ross Baez DO Unavailable [phone] Edith Aleman RN Unavailable Unavailable Reason for Referral * Imaging (Routine) - Closed Specialty Diagnoses / Procedures Referred By Yared díaz Referred To Contact Cardiology Diagnoses LVAD (left ventricular assist device) present ([facility]) director perioperative current use of anticoagulant therapy Procedures Echo, Adult Transthoracic Complete Marti Cherry APRN [address] [place] [address] Phone: tel: fax: Referral ID Status Reason Start Date Expiration Date V isits Requested Visits Authorized [id number] Closed Perform Procedure 10/24/2024 04/25/2026 1 1 Reason for Visit * Imaging (Routine) - Closed Specialty Diagnoses / Procedures Referred By Yared díaz Referred To Contact Cardiology Diagnoses LVAD (left ventricular assist device) present ([facility]) director perioperative current use of anticoagulant therapy Procedures Echo, Adult Transthoracic Complete Marti Cherry BLOOD DONOR UNIT ASSISTANT [address] [place] [address] Phone: tel: fax: Referral ID Status Reason Start Date Expiration Date V isits Requested Visits Authorized [id number] Closed Perform Procedure 10/24/2024 04/25/2026 1 1 Encounter Details Date Type Department Care Team (Latest Contact Info) Description 01/28/2025 8:57 AM EST - 01/28/2025 11:59 PM EST Hospital Encounter Cardiac Imaging [address] [place] [address] LVAD (left ventricular assist device) present ([facility]); director perioperative current use of anticoagulant therapy Discharge Disposition: [...] any time in the past 12 m [facility], were you homeless or living in [...] drink first t janine in the morning (EYE-FINANCE LEAD) to steady your nerves or to get [...] tabletIndications :LVAD (left ventricular assist device) present ([facility]),Chronic systolic heart failure Take 3 [...] every night. Delta 9 gummies purchased in [place] omeprazole (PriLOSEC) [address] capsule Take [...] daily at 1,000 mL/hr over 60 minutes. 31963 mL 11 01/08/2025 sotalol (Betapace) 120 MG [...] Description 04/22/2025 9:00 AM EST Ancillary Procedure [facility] [place] [facility] [address] [place] [address] documented as of this encounter Goals Goal Patient Goal Type Associated Problems Recent Progress Patient-Stated? Author LVAD Short Term Goal General On track( 024 11:53 AM EDT) Yes Katrin Oviedo, RN Note: - 07/04/23: Patient states he wants to attend a wedding in November in [place] LVAD Programming Specialist Goal General On track( 024 11:53 AM EDT) Yes Katrin Oviedo, RN Note: - 07/04/23: Patient states he wants to meet his grandchild when they are born in November documented as of this encounter Procedures Procedure Name Priority Date/Time Associated Diagnosis Comments ECHO, ADULT TRANSTHORACIC COMPLETE Routine 01/28/2025 9:38 AM EST LVAD (left ventricular assist device) present ([facility]) director perioperative current use of anticoagulant therapy documented in [...] LVAD (left ventricular assist device) present (CMS/HCC) director perioperative current use of anticoagulant therapy documented in [...] documented as of this encounter Care Teams Document Management Analyst Relationship Specialty Start Date End Date Herberth Perez MD [address] [place] [address] [place] [address] PCP - General 07/17/20 Gracia Petersen APRN [address] [place] [address] Nurse Practitioner Internal Medicine 08/06/20 Yunior Solorzano MD [address] [facility] [address] [place] [phone] Consulting Physician Gastroenterology 07/18/22 Ross Baez DO [address] [address] Surgeon Cardiothoracic Surgery 07/18/22 Edith Aleman, PATTERNMAKER APPRENTICE WOOD None VAD Coordinator 10/14/24 documented as of this encounter
--- OUTSIDE RECORDS SUMMARY | 2025-01-28 10:00 | XMS_ITS | Encounter Summary ---
Author Organization [facility] Address [address] [place] [address] Care Team Providers Care Traffic Sergeant Name Role Phone Herberth Perez MD Primary Care Provider [phone] Gracia Petersen RESEARCH STATISTICIAN Unavailable [phone] Yunior Solorzano MD Unavailable [phone] Ross Baez DO Unavailable [phone] Edith Aleman RN Unavailable Unavailable Reason for Visit * Reason Comments Follow-up - VAD Post Encounter Details Date Type Department Care Team (Latest Contact Info) Description 01/28/2025 10:00 AM EST Ancillary Procedure [facility] [address] [place] [address] LVAD (left ventricular assist device) present (CMS/HCC) (Primary Dx); residential current use of anticoagulant therapy; Ventricular tachycardia (CMS/HCC); PAF (paroxysmal atrial fibrillation); NICM (nonischemic cardiomyopathy) (CMS/HCC); HFrEF (heart failure with reduced ejection fraction); Cardiac resynchronization therapy defibrillator (FRONT SIGHT ATTACHER-D) in place Social History Tobacco Use Types [...] any time in the past 12 m onths, were you homeless or living in a [...] drink first t janine in the morning (EYE-CAMPUS MANAGER) to steady your nerves or to [...] 10:06 AM EST documented in this encounter Functional Status * Pulse Answer Date of Assessment Author 80 01/28/2025 10:06 AM EST Heber Page * SpO2 Answer Date of Assessment Author 96 01/28/2025 10:06 AM EST Heber Page * Height Answer Date of Assessment Author 72 01/28/2025 10:06 AM Heber Mejia * Weight Answer Date of Assessment Author 2640 01/28/2025 10:06 AM Heber Mejia * ICP/Pressure Question Answer Date of Assessment Author MAP (mmHg) 92 01/28/2025 10:30 AM Gracia Calabrese RN * BMI (Calculated) Answer Date of Assessment Author 22.4 01/28/2025 10:06 AM Heber Mejia * Percent Excess Weight Loss Answer Date of Assessment Author 0 01/28/2025 10:06 AM Heber Mejia * Total Weight Change Percent Answer Date of Assessment Author 2222 01/28/2025 10:06 AM Heber Mejia * Weight Change Since Preop Answer Date of Assessment Author 74.83 01/28/2025 10:06 AM Heber Mejia * Initial Excess Weight Answer Date of Assessment Author -80.74 01/28/2025 10:06 AM Heber Mejia * IBW in lbs (Bariatric) Answer Date of Assessment Author 178 01/28/2025 10:06 AM Heber Mejia * Weight Change Since Last Visit Answer Date of Assessment Author 74.83 01/28/2025 10:06 AM Heber Mejia * IBW in kg (Bariatric) Answer Date of Assessment Author 80.74 01/28/2025 10:06 AM Heber Mejia * Percent of IBW Answer Date of Assessment Author 3,269.75 01/28/2025 10:06 AM Heber Mejia * EBW (kg) Answer Date of Assessment Author 2,637.71 01/28/2025 10:06 AM Heber Mejia * EBW (lbs) Answer Date of Assessment Author 2,628.88 01/28/2025 10:06 AM Heber Mejia * Weight Change 24 hrs Answer Date of Assessment Author 2.722 01/28/2025 10:06 AM Heber Mejia * Vitals Question Answer Date of Assessment Author BP Method Doppler 01/28/2025 10:30 AM Gracia Calabrese RN * BSA (Calculated - sq m) Answer Date of Assessment Author 1.95 01/28/2025 10:06 AM Heber Mejia BMI (Calculated) Answer Date of Assessment Author 22.37 01/28/2025 10:06 AM Heber Mejia * IBW/kg (Calculated) Male Answer Date of Assessment Author 77.6 01/28/2025 10:06 AM Heber Mejia * IBW/kg (Calculated) Female Answer Date of Assessment Author 73.1 01/28/2025 10:06 AM Heber Mejia * IBW/kg (Calculated) Answer Date of Assessment Author 77.6 01/28/2025 10:06 AM Heber Mejia * Weight in (lb) to have BMI = 25 Answer Date of Assessment Author 183.9 01/28/2025 10:06 AM Heber Mejia * BMI (Calculated) Answer Date of Assessment Author 22.4 01/28/2025 10:06 AM Heber Mejia * Percent Excess Weight Loss Answer Date of Assessment Author 0 01/28/2025 10:06 AM Heber Mejia * Weight Change Since Preop Answer Date of Assessment Author 74.84 01/28/2025 10:06 AM Heber Mejia * Initial Excess Weight Answer Date of Assessment Author -80.74 01/28/2025 10:06 AM Heber Mejia * IBW in kg (Bariatric) Answer Date of Assessment Author 80.74 01/28/2025 10:06 AM Heber Mejia * IBW in lb (Bariatric) Answer Date of Assessment Author 178 01/28/2025 10:06 AM Heber Mejia * Weight Change Since Last Visit Answer Date of Assessment Author 74.84 01/28/2025 10:06 AM Heber Mejia * Percent of IBW Answer Date of Assessment Author 92.7 01/28/2025 10:06 AM Heber Mejia * EBW (kg) Answer Date of Assessment Author -5.91 01/28/2025 10:06 AM Heber Mejia * EBW (lb) Answer Date of Assessment Author -13 01/28/2025 10:06 AM Heber Mejia * Difference in Weight Since Last Visit Answer Date of Assessment Author 2.72 01/28/2025 10:06 AM Heber Mejia * IBW/kg (Calculated) Answer Date of Assessment Author 77.6 01/28/2025 10:06 AM Heber Mejia Adult Low Range Vt 6mL/kg Answer Date of Assessment Author 465.6 01/28/2025 10:06 AM Heber Mejia * Adult Moderate Range Vt 8mL/kg Answer Date of Assessment Author 620.8 01/28/2025 10:06 AM Heber Mejia * Adult High Range Vt 10mL/kg Answer Date of Assessment Author 776 01/28/2025 10:06 AM Heber Mejia * Pain Score Answer Date of Assessment Author 0 01/28/2025 10:05 AM Heber Mejia Pain Screening/Additional Assessments Question Answer Date of Assessment Author Pain Screening/Assessments Pain Screening 01/28/2025 1 0:05 AM Heber Mejia Pain Screening Answer Date of Assessment Author 0-10 01/28/2025 10:05 AM Heber Mejia Pulse Answer Date of Assessment Author 80 01/28/2025 10:06 AM Heber Mejia * SpO2 Answer Date of Assessment Author 96 01/28/2025 10:06 AM Heber Mejia Height Answer Date of Assessment Author 72 01/28/2025 10:06 AM Heber Mejia Weight Answer Date of Assessment Author 2640 01/28/2025 10:06 AM Heber Mejia ICP/Pressure Question Answer Date of Assessment Author MAP (mmHg) 92 01/28/2025 10:30 AM Gracia Calabrese RN * Vitals Question Answer Date of Assessment Author BP Method Doppler 01/28/2025 10:30 AM Gracia Calabrese RN * BSA (Calculated - sq m) Answer Date of Assessment Author 1.95 01/28/2025 10:06 AM Heber Mejia BMI (Calculated) Answer Date of Assessment Author 22.37 01/28/2025 10:06 AM Heber Mejia * Weight in (lb) to have BMI = 25 Answer Date of Assessment Author 183.9 01/28/2025 10:06 AM Heber Mejia * Pain Score Answer Date of Assessment Author 0 01/28/2025 10:05 AM Heber Mejia documented as of this encounter Mental Status * Pulse Answer Entry Date Author 80 01/28/2025 10:06 AM Heber Mejia * SpO2 Answer Entry Date Author 96 01/28/2025 10:06 AM Heber Mejia * Height Answer Entry Date Author 72 01/28/2025 10:06 AM Heber Mejia * Weight Answer Entry Date Author 2640 01/28/2025 10:06 AM Heber Mejia * ICP/Pressure Question Answer Entry Date Author MAP (mmHg) 92 01/28/2025 10:30 AM Gracia Calabrese, MARYCARMEN * BMI (Calculated) Answer Entry Date Author 22.4 01/28/2025 10:06 AM Heber Mejia * Percent Excess Weight Loss Answer Entry Date Author 0 01/28/2025 10:06 AM Heber Mejia * Total Weight Change Percent Answer Entry Date Author 2222 01/28/2025 10:06 AM Heber Mejia * Weight Change Since Preop Answer Entry Date Author 74.83 01/28/2025 10:06 AM Heber Mejia * Initial Excess Weight Answer Entry Date Author -80.74 01/28/2025 10:06 AM Heber Mejia * IBW in lbs (Bariatric) Answer Entry Date Author 178 01/28/2025 10:06 AM Heber Mejia * Weight Change Since Last Visit Answer Entry Date Author 74.83 01/28/2025 10:06 AM Heber Mejia * IBW in kg (Bariatric) Answer Entry Date Author 80.74 01/28/2025 10:06 AM Heber Mejia * Percent of IBW Answer Entry Date Author 3,269.75 01/28/2025 10:06 AM Heber Mejia * EBW (kg) Answer Entry Date Author 2,637.71 01/28/2025 10:06 AM Heber Mejia EBW (lbs) Answer Entry Date Author 2,628.88 01/28/2025 10:06 AM Heber Mejia * Weight Change 24 hrs Answer Entry Date Author 2.722 01/28/2025 10:06 AM Heber Mejia Vitals Question Answer Entry Date Author BP Method Doppler 01/28/2025 10:30 AM Gracia Calabrese RN * BSA (Calculated - sq m) Answer Entry Date Author 1.95 01/28/2025 10:06 AM Heber Mejia BMI (Calculated) Answer Entry Date Author 22.37 01/28/2025 10:06 AM Heber Mejia IBW/kg (Calculated) Male Answer Entry Date Author 77.6 01/28/2025 10:06 AM Heber Mejia IBW/kg (Calculated) Female Answer Entry Date Author 73.1 01/28/2025 10:06 AM Heber Mejia IBW/kg (Calculated) Answer Entry Date Author 77.6 01/28/2025 10:06 AM Heber Mejia * Restart Pain Assessment Timer Answer Entry Date Author Yes 01/28/2025 10:05 AM Heber Mejia * Weight in (lb) to have BMI = 25 Answer Entry Date Author 183.9 01/28/2025 10:06 AM Heber Mejia BMI (Calculated) Answer Entry Date Author 22.4 01/28/2025 10:06 AM Heber Mejia Percent Excess Weight Loss Answer Entry Date Author 0 01/28/2025 10:06 AM Heber Mejia Weight Change Since Preop Answer Entry Date Author 74.84 01/28/2025 10:06 AM Heber Mejia * Initial Excess Weight Answer Entry Date Author -80.74 01/28/2025 10:06 AM Heber Mejia * IBW in kg (Bariatric) Answer Entry Date Author 80.74 01/28/2025 10:06 AM Heber Mejia * IBW in lb (Bariatric) Answer Entry Date Author 178 01/28/2025 10:06 AM Hbeer Mejia * Weight Change Since Last Visit Answer Entry Date Author 74.84 01/28/2025 10:06 AM Heber Mejia * Percent of IBW Answer Entry Date Author 92.7 01/28/2025 10:06 AM Heber Mejia * EBW (kg) Answer Entry Date Author -5.91 01/28/2025 10:06 AM Heber Mejia * EBW (lb) Answer Entry Date Author -13 01/28/2025 10:06 AM Heber Meija * Difference in Weight Since Last Visit Answer Entry Date Author 2.72 01/28/2025 10:06 AM Heber Mejia * IBW/kg (Calculated) Answer Entry Date Author 77.6 01/28/2025 10:06 AM Heber Mejia * Adult Low Range Vt 6mL/kg Answer Entry Date Author 465.6 01/28/2025 10:06 AM Heber Mejia * Adult Moderate Range Vt 8mL/kg Answer Entry Date Author 620.8 01/28/2025 10:06 AM Heber Mejia * Adult High Range Vt 10mL/kg Answer Entry Date Author 776 01/28/2025 10:06 AM Heber Mejia * Pain Score Answer Entry Date Author 0 01/28/2025 10:05 AM Heber Mejia * Pain Screening Answer Entry Date Author 0-10 01/28/2025 10:05 AM Heber Mejia documented in this encounter Miscellaneous Notes * Patient Instructions - Gracia Vizcarra, RN - 01/28/2025 10:00 AM EST - Hold IV fluids for today - See you in 3 months! * Progress Notes - Po Tang MD - 01/28/2025 10:00 AM EST Images from the original note were not included. [facility] Ventricular Device Clinic Outpatient Visit Date of Service: 01/28/2025 Patient Name Jose Pearson Date of 1970 Encounter Provider: TOM ANGLEO [id number] History of Present Illness I had the pleasure of seeing Jose Pearson for a follow up visit today in the Ventricular Assist Device Clinic at the [facility] at the [facility]. VAD Course Mr. Jose Pearson is a [...] PGY-6/FY-2 Fellow - Division of Cardiovascular Medicine [facility] Dr. Orellana [1] Past Medical History: Diagnosis [...] asthma without status asthmaticus without complication 11/01/2021 [place] (myocardial infarction) (CMS/HCC) 08/31/2020 Other cardiomyopathies (CMS/HCC) NICM (nonischemic cardiomyopathy) Pulmonary embolism 2019 - On ventilator 2.5 months and sepsis/pneumonia was cause, states pt.'s . 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 [2] Past Surgical History: Procedure Laterality Date ANKLE SURGERY N/A Ankle Surgery from [employer] CARDIAC DEFIBRILLATOR PLACEMENT N/A Implantable Cardioverter-Defibrillator from [employer]. HERNIA REPAIR N/A Hernia Repair from [employer] LEFT VENTRICULAR ASSIST DEVICE Left Implantation of left ventricular assist device (LVAD) from [facility] OTHER SURGICAL HISTORY Left Left ventricular assist device placement from [employer] OTHER SURGICAL HISTORY N/A Percutaneous tracheostomy from [facility] [3] Current Outpatient Medications Medication Sig Dispense [...] every night. Delta 9 gummies purchased in [place] omeprazole (PriLOSEC) [address] capsule Take [...] daily at 1,000 mL/hr over 60 minutes. 15728 mL 11 sotalol (Betapace) 120 MG tablet [...] Cierra Orellana MD Advanced Heart Failure/Transplant Cardiology [facility] documented in this encounter Plan of Treatment Upcoming Encounters Date Type Department Care Team (Late st Contact Info) Description 04/22/2025 9:00 AM EST Ancillary Procedure [facility] [address] [place] [address] documented as of this encounter Goals Goal Patient Goal Type Associated Problems Recent Progress Patient-Stated? Author LVAD Short Term Goal General On track( 024 11:53 AM EDT) Yes Katrin Oviedo RN Note: - 07/04/23: Patient states he wants to attend a wedding in November in [place] LVAD Touch Up Painter Hand Goal General On track( 024 11:53 AM EDT) Yes Katrin Oviedo RN Note: - 07/04/23: Patient states he wants to meet his grandchild when they are born in November documented as of this encounter Procedures Procedure Name Priority Date/Time Associated Diagnosis Comments N-TERMINAL PROBNP, PLASMA Routine 01/28/2025 9:02 AM EST LVAD (left ventricular assist device) present ([facility]) residential current use of anticoagulant therapy IRON & TOTAL IRON BINDING CAPACITY, PLASMA (INCLUDES TRANSFERRIN) Add-On 01/28/2025 9:02 AM EST supervisor intermediates current use of anticoagulant therapy PROTHROMBIN TIME(PT) / INR Routine 01/28/2025 9:02 AM EST LVAD (left ventricular assist device) present (CMS/HCC) supervisor intermediates current use of anticoagulant therapy CBC W/O DIFFERENTIAL Routine 01/28/2025 9:02 AM EST LVAD (left ventricular assist device) present (CMS/HCC) residential current use of anticoagulant therapy LACTATE DEHYDROGENASE, PLASMA Routine 01/28/2025 9:02 AM EST LVAD (left ventricular assist device) present (CMS/HCC) residential current use of anticoagulant therapy COMPREHENSIVE METABOLIC PANEL, PLASMA Routine 01/28/2025 9:02 AM EST LVAD (left ventricular assist device) present (CMS/HCC) residential current use of anticoagulant therapy documented in this encounter Results * (ABNORMAL) Iron & Total Iron Binding Capacity, Plasma (Includes Transferrin) (01/28/2025 9:02 AM EST) Iron, Plasma 11(L) 50 - 170 ug/dL 01/28/2025 12:04 PM EST [facility] Transferrin, Plasma 305 200 - 360 mg/dL 01/28/2025 12:04 PM EST [facility] Total Iron Binding Capacity, Plasma 381 240 - 450 ug/mL 01/28/2025 12:04 PM EST [facility] Transferrin Saturation 3(L) 14 - 50 % 01/28/2025 12:04 PM EST [facility] Blood Venous blood specimen / Unknown Venipuncture / Unknown 01/28/2025 9:02 AM EST 01/28/2025 10:44 AM EST us Cierra Orellana MD LAB BLOOD ORDERABLES Final Result [facility] [address] [place] [address] * (ABNORMAL) Comprehensive Metabolic Panel, Plasma (01/28/2025 9:02 AM EST) Glucose, Plasma 106(H) 74 - 99 mg/dL 01/28/2025 11:[address] [facility] BUN, Plasma 15 7 - 21 mg/dL 01/28/2025 11:[address] [facility] Creatinine, Plasma 0.55(L) 0.70 - 1.20 mg/dL 01/28/2025 11:[address] [facility] BUN/Creatinine Ratio 27 01/28/2025 11:[address] [facility] Sodium, Plasma 139 136 - 145 mmol/L 01/28/2025 11:[address] [facility] Potassium, Plasma 3.9 3.6 - 4.9 mmol/L 01/28/2025 11:[address] [facility] Chloride, Plasma 104 97 - 107 mmol/L 01/28/2025 11:[address] [facility] CO2, Plasma 24 22 - 29 mmol/L 01/28/2025 11:[address] [facility] Anion Gap 11 6 - 16 mmol/L 01/28/2025 11:[address] [facility] Total Calcium, Plasma 8.1(L) 8.9 - 10.2 mg/dL 01/28/2025 11:[address] [facility] Total Protein 6.9 6.3 - 7.9 g/dL 01/28/2025 11:[address] [facility] Albumin, Plasma 3.2(L) 3.5 - 5.2 g/dL 01/28/2025 11:[address] [facility] AST, Plasma 47 10 - 50 U/L 01/28/2025 11:[address] [facility] Comment:Hemolyzed, result ma y be falsely increased. ALT, Plasma 41 10 - 50 U/L 01/28/2025 11:[address] [facility] Alkaline Phosphatase, Plasma 65 40 - 115 U/L 01/28/2025 11:[address] [facility] Total Bilirubin, Plasma 1.0 0.2 - 1.1 mg/dL 01/28/2025 11:17 AM EST [facility] eGFRcr 117.0 mL/min/1.7 3m*2 01/28/2025 11:17 AM EST [facility] Comment:Reported eGFRcr in m L/min/1.73m2 is based the CKD-EPI 2020 equation that does not use a race coefficient. Blood Venous blood specimen / Unknown Venipuncture / Unknown 01/28/2025 9:02 AM EST 01/28/2025 10:44 AM EST us Marti Cherry RESEARCH STATISTICIAN LAB BLOOD ORDERABLES Final Result [facility] [address] [place] [address] * (ABNORMAL) CBC W/O Differential (01/28/2025 9:02 AM EST) WBC Count 7.34 3.70 - 10.30 10*3/uL LAB HEMATOLOGY METHOD 01/28/2025 11:23 AM EST [facility] RBC Count 4.57(L) 4.60 - 6.10 10*6/uL LAB HEMATOLOGY METHOD 01/28/2025 11:23 AM EST [facility] HGB 8.4(L) 13.7 - 17.5 g/dL LAB HEMATOLOGY METHOD 01/28/2025 11:23 AM EST [facility] HCT 29.1(L) 40.0 - 51.0 % LAB HEMATOLOGY METHOD 01/28/2025 11:23 AM EST [facility] Platelet Count 314 155 - 369 10*3/uL LAB HEMATOLOGY METHOD 01/28/2025 11:23 AM EST [facility] MCV 64(L) 79 - 98 fL LAB HEMATOLOGY METHOD 01/28/2025 11:23 AM EST [facility] MCH 18.4(L) 26.0 - 32.0 pg LAB HEMATOLOGY METHOD 01/28/2025 11:23 AM EST [facility] MCHC 28.9(L) 30.7 - 35.5 g/dL LAB HEMATOLOGY METHOD 01/28/2025 11:23 AM EST [facility] RDW 21.1(H) 11.5 - 14.5 % LAB HEMATOLOGY METHOD 01/28/2025 11:23 AM EST [facility] MPV 9.2 8.8 - 12.5 fL LAB HEMATOLOGY METHOD 01/28/2025 11:23 AM EST [facility] nRBC 0.0 <=0.0 per 100 WBCs LAB HEMATOLOGY METHOD 01/28/2025 11:23 AM EST [facility] Blood Venous blood specimen / Unknown Venipuncture / Unknown 01/28/2025 9:02 AM EST 01/28/2025 10:51 AM EST us Marti D Twelixir RESEARCH STATISTICIAN LAB BLOOD ORDERABLES Final Result [facility] [address] [place] [address] * Lactate Dehydrogenase, Plasma (01/28/2025 9:02 AM EST) LDH, Plasma 237 116 - 250 U/L 01/28/2025 11:17 AM EST [facility] Comment:Hemolyzed, result ma y be falsely increased. Blood Venous blood specimen / Unknown Venipuncture / Unknown 01/28/2025 9:02 AM EST 01/28/2025 10:44 AM EST us Marti Shell Dilip RESEARCH STATISTICIAN LAB BLOOD ORDERABLES Final Result Performing Organization Address City/[facility]/ZIP Co de Phone Number [facility] [address] [place] [address] * (ABNORMAL) N-Terminal Probnp, Plasma (01/28/2025 9:02 AM EST) N-Terminal, PROBNP, Plasma 3,594(H) 0 - 899 pg/mL 01/28/2025 11:17 AM EST [facility] Blood Venous blood specimen / Unknown Venipuncture / Unknown 01/28/2025 9:02 AM EST 01/28/2025 10:44 AM EST us Marti D Dilip RESEARCH STATISTICIAN LAB BLOOD ORDERABLES Final Result [facility] [address] [place] [address] * (ABNORMAL) Prothrombin Time/INR (01/28/2025 9:02 AM EST) Prothrombin Time 31.0(H) 12.0 - 14.3 sec LAB COAGULATION METHOD 01/28/2025 11:06 AM EST [facility] INR 3.0(H) 0.9 - 1.1 LAB COAGULATION METHOD 01/28/2025 11:06 AM EST [facility] Blood Venous blood specimen / Unknown Venipuncture / Unknown 01/28/2025 9:02 AM EST 01/28/2025 10:44 AM EST Narrative [facility] - 01/28/2025 11:06 AM EST OPTIMAL INR RANGES FOR PATIENT ON ORAL ANTICOAGULANT THERAPY Prevention of venous thromboembolism INR 2.0 to 3.0 In patients with heart disease: Atrial fibrillation INR 2.0 to 3.0 Valvular heart disease INR 2.0 to 3.0 Tissue heart valves INR 2.0 to 3.0 Mechanical prosthetic valves INR 2.5 to 3.5 Prevention of recurrent [place] INR 2.5 to 3.5 us Marti Cherry RESEARCH STATISTICIAN LAB BLOOD ORDERABLES Final Result [facility] [address] [place] [address] * (ABNORMAL) Wound Culture and Gram Stain (01/21/2025 11:32 AM EST) CULTURE READING WOUND Light Growth 01/27/2025 2:28 PM EST [facility] CULTURE READING WOUND Corynebacterium amycolatum(A) 01/27/2025 2:28 PM EST [facility] Comment: This isolate has been identified using the FDA Approved Pel[employer] [place] System The organism value for this result has been updated. These results have been appended to the previously preliminary verified report. Edited result: Previously reported as Gram positive samuel on 01/24/2025 at 0826 EST. Gram Stain Result Rare Polymorphonuclear leukocytes(A) 01/27/2025 2:28 PM EST [facility] Gram Stain Result Rare Gram positive rods(A) 01/27/2025 2:28 PM EST [facility] Gram Stain Result Rare Gram positive cocci in pairs(A) 01/27/2025 2:28 PM EST [facility] Swab Topography unknown / Unknown Non-blood Collection / Unknown 01/21/2025 11:32 AM EST 01/21/2025 12:00 PM EST Narrative [facility] - 01/27/2025 2:28 PM EST Linezolid,Minocycline [...] LAB MICROBIOLOGY - GENERAL ORDERABLES Final Result Performing Organization Address City/State/[facility] Co de Phone Number [facility] [address] [place] [address] documented in this encounter Visit Diagnoses Diagnosis LVAD (left ventricular assist device) present (CMS/HCC)- Primary supervisor intermediates current use of anticoagulant therapy Ventricular tachycardia (CMS/HCC) Paroxysmal ventricular tachycardia PAF (paroxysmal atrial fibrillation) Atrial fibrillation NICM (nonischemic cardiomyopathy) (CMS/HCC) HFrEF (heart failure with reduced ejection fraction) Cardiac resynchronization therapy defibrillator (FRONT SIGHT ATTACHER-D) in place documented in this encounter Additional [...] documented as of this encounter Care Teams Traffic Sergeant Relationship Specialty Start Date End Date Herberth Perez MD [address] [place] [address] [place] [address] PCP - General 07/17/20 Gracia Petersen APRN [address] [place] [address] Nurse Practitioner Internal Medicine 08/06/20 Yunior Solorzano MD [address] [place] [address] Consulting Physician Gastroenterology 07/18/22 Ross Baez, DO [address] [address] Surgeon Cardiothoracic Surgery 07/18/22 Edith Aleman, SALES ENGINEERING MANAGER None VAD Coordinator 10/14/24 documented as of this encounter
--- OUTSIDE RECORDS SUMMARY | 2025-01-29 07:39 | XMS_ITS | Encounter Summary ---
Author Organization Healthcare Address [address] [place] [address] Care Team Providers Care Pacs Specialist Name Role Phone Herberth Perez MD Primary Care Provider [phone] Gracia Petersen NEWSCAST PRODUCER Unavailable [phone] Yunior Solorzano MD Unavailable [phone] Ross Baez DO Unavailable [phone] Edith Aleman RN Unavailable Unavailable Encounter Details Date Type Department Care Team (Latest Contact Info) Description 01/29/2025 7:39 AM EST - 01/29/2025 11:59 PM [facility] Hospital Encounter Cardiac Imaging [address] [place] [address] Biventricular ICD (implantable cardioverter-defibril lator) in place [...] place to sleep or slept in a retirement (including now)? No 12/19/2023 PHQ-9 Answer Date [...] any time in the past 12 m [facility], were you homeless or living in a retirement (including now)? No 04/08/2024 CAGE ASSESSMENT Answer [...] drink first t janine in the morning (EYE-RACKMAN) to steady your nerves or to get rid of a hangover? 0 09/19/2021 CAGE Questionnaire Score 0 022 Utilities Answer Date Recorded In the past 12 months has th [employer], [employer], oil, or water [employer] threatened to shut off services in your [...] every night. Delta 9 gummies purchased in [place] omeprazole (PriLOSEC) [address] capsule Take [...] daily at 1,000 mL/hr over 60 minutes. [address]798 mL 11 01/08/2025 sotalol (Betapace) 120 MG [...] least 30 minutes after 28 tablet 01/24/2025 5 documented as of this encounter Plan of Treatment Upcoming Encounters Date Type Department Care Team (Late st Contact Info) Description 04/22/2025 9:00 AM EST Ancillary Procedure [facility] [place] [address] [place] [address] documented as of this encounter Goals Goal Patient Goal Type Associated Problems Recent Progress Patient-Stated? Author LVAD Short Term Goal General On track( 024 11:53 AM EDT) Yes Katrin Oviedo RN Note: - 07/04/23: Patient states he wants to attend a wedding in November in [place] LVAD Group Home Goal General On track( 024 11:53 AM EDT) Yes Katrin Oviedo RN Note: - 4/30/24: Patient states he wants to meet his grandchild when they are born in November documented as of this encounter Procedures Procedure Name Priority Date/Time Associated Diagnosis Comments CARDIAC DEVICE CHECK CHECK - REMOTE ALERT Routine 01/29/2025 7:40 AM EST Biventricular ICD (implantable cardioverter-defibr illator) in place documented in this encounter Results * CARDIAC DEVICE CHECK - REMOTE ALERT - ICD (01/29/2025 7:40 AM EST) Anatomical Region Laterality Modality Other Narrative 01/29/2025 9:29 AM EST [facility] EP - Remote CIED alert (non-scheduled) Name: Jose Pearson Date: 01/29/2025 : 1970 Age: 54 y.o. Indication for alert: VT event, treated with ATPx1 Device: Transportation Equipment Painter: [employer]avaleta AUTOMOBILE RENTAL AGENT-ICD Summary: As above, occurring yesterday at 1:43pm. Recent uptrend in HR. While not a large increase, patient LRL set at 90 bpm and sinus rate increasing beyond 90 bpm. Activity trend is also up. Action(s): Sent communication to LVAD coordinator. Will continue to monitor device. See attached [...] documented as of this encounter Care Teams Pacs Specialist Relationship Specialty Start Date End Date Herberth Perez MD [address] [place] [address] PCP - General 07/17/20 Gracia Petersen APRN [address] [place] [address] Nurse Practitioner Internal Medicine 08/06/20 Yunior Solorzano MD [address] [place] [address] Consulting Physician Gastroenterology 07/18/22 Ross Baez DO [address] [address] Surgeon Cardiothoracic Surgery 07/18/22 Edith Aleman, DENTAL EQUIPMENT INSTALLER AND SERVICER None VAD Coordinator 10/14/24 documented as of this encounter
--- OUTSIDE RECORDS SUMMARY | 2025-03-03 10:20 | XMS_ITS | Encounter Summary ---
Author Organization [employer] ([place], [place], [place], [place], [place]) Address [address] [place] [address] Care Team Providers Care Sign Board Erector Name Role Phone Unavailable Primary Care Provider Stefan pond Encounter Details Date Type Department Care Team (Late st Contact Info) Description 03/28/2018 Transcribed Document [facility] [place] [facility] [place] [address] ProviderMg MD [facility] [place] [address] Social History Tobacco Use Types Packs/Day Years Used Date Smoking Tobacco: Never Assessed Sex and Gender Information Value Date Recorded Sex Assigned at Not on file Legal Sex Male 1:09 PM CDT Gender Identity Not on file Sexual Orientation Not on file documented as of this encounter Miscellaneous Notes * Cerner Conversion Note - Mg ProviderMD - 03/28/2018 1:07 PM PROGRAM TRAINER Admission History, Adult Entered On: 03/28/2018 13:21 [...] EST Legal Guardian : Spouse Support Person/Patient Society Reporter : Yes Support Person/Pt Rep Name : Neel Pearson-- Support Person/Pt Rep Contact Information : [phone] Want Family/Rep/Phys Notified of Admit : No Emergency Contact #1 : neel Emergency Contact #1 Phone Number : [phone] Emergency Contact #1 Relationship : Emergency Contact #2 : na Emergency Contact #2 Phone Number : na Emergency Contact #2 Relationship : na Information Obtained From : Patient, Spouse Primary Language : Tajik Preferred Communication Mode : Verbal Communication Barrier [...] Scale Risk Level : 25-45 Medium Risk Hobson Fall Interventions : Adequate lighting, Assistive devices [...] Source : Stated Height Entry Format : [place] Height, Feet : 6 ft(Converted to: 183 cm, 72 Inch) Height, Inches : 0 Inch(Converted to: 0 ft 0 Inch, 0.00 cm) Clinical Height : 182.88 cm Weight Source : Standing scale Weight Entry Format : [place] Clinical Dosing Weight : 107.5 kg Weight, Pounds : 236 lb Weight, Ounces : 8 oz Body Surface Area (BSA) : 2.29 m2 Body Mass Index : 32.1 kg/m2 (HI) [place] Body Weight : 77 kg BRIAN BEASLEY [...] 03/28/2018 13:07 EST Electronically signed by Interface, [facility] Conversion Heating Unit Mechanic Cerner at 06/19/2022 10:55 PM CDT documented in this encounter Plan of Treatment Not on file documented as of this encounter Visit Diagnoses Not on filedocumented in this encounter
--- OUTSIDE RECORDS SUMMARY | 2025-03-03 10:20 | XMS_ITS | Encounter Summary ---
Author Organization [facility] Address [address] [place] [address] Care Team Providers Care Environmental Compliance Specialist Name Role Phone Herberth Perez MD Primary Care Provider [phone] Gracia Petersen FIBER OPTIC SPLICER Unavailable [phone] Yunior Solorzano MD Unavailable [phone] Ross Baez DO Unavailable [phone] Edith Aleman RN Unavailable Unavailable Encounter Details Date Type Department Care Team (Latest Contact Info) Description 02/27/2025 Anticoagulation - Warfarin Visit [facility] [place] [address] [facility] 1st Floor [address] [place] [id number] Edith Aleman, HIDES AND SKINS COLORER None LVAD (left ventricular assist device) present (CMS/[facility]) (Primary Dx); Anticoagulant long-term use Social [...] time in the past 12 m [facility], were you homeless or living in [...] drink first t janine in the morning (EYE-METAL DRILLING MACHINE OPERATOR) to steady your nerves or to get rid of a hangover? 0 09/19/2021 CAGE Questionnaire Score 0 022 Utilities Answer Date Recorded In the past 12 months has e [employer], gas, oil, or water company threatened to [...] 04/22/2025 9:00 AM EST Ancillary Procedure [facility] [place] [address] [place] [address] documented as of this encounter Goals Goal Patient Goal Type Associated Problems Recent Progress Patient-Stated? Author LVAD Short Term Goal General On track( 024 11:53 AM EDT) Yes Katrin Oviedo RN Note: - 07/04/23: Patient states he wants to attend a wedding in November in [place] LVAD Jail Goal General On track( 024 11:53 AM EDT) Yes Katrin Oviedo RN Note: - 07/04/23: Patient states he wants to meet his grandchild when they are born in November documented as of this encounter Procedures Procedure Name Priority Date/Time Associated Diagnosis Comments EXTERNAL PROTHROMBIN TIME (PT)/INR Routine 02/27/2025 documented in this encounter Results * External Prothrombin Time (PT)/INR (02/27/2025) External INR - Internormal Ratio 2.2 External Prothrombin Time (PT) Blood Venous blood specimen / Unknown 02/27/2025 [facility] Provider POINT OF CARE TEST ENTER/SHERIF T ORDERABLES Final Result documented in this encounter Visit Diagnoses Diagnosis LVAD (left ventricular assist device) present ([facility])- Primary Anticoagulant long-term use Encounter for [...] plan has been documented for the patient 02/27/2025 1:46 PM EST documented as of this encounter Care Teams Environmental Compliance Specialist Relationship Specialty Start Date End Date Herberth Perez MD [address] [place] [address] [place] [address] PCP - General 07/17/20 Gracia Petersen APRN [address] [place] [phone] Nurse Practitioner Internal Medicine 08/06/20 Yunior Solorzano MD [address] [place] [phone] Consulting Physician Gastroenterology 07/18/22 Ross Baez DO [address] [address] Surgeon Cardiothoracic Surgery 07/18/22 Edith Aleman, HIDES AND SKINS COLORER None VAD Coordinator 10/14/24 documented as of this encounter
--- OUTSIDE RECORDS SUMMARY | 2025-03-03 10:20 | XMS_ITS | Encounter Summary ---
Author Organization [employer] ([place], [place], [place], [place], [place]) Address [address] [place] [address] Care Team Providers Care Branch Chief Name Role Phone Unavailable Primary Care Provider Unavailrodrick e Encounter Details Date Type Department Care Team (Late st Contact Info) Description 03/28/2018 Transcribed Document [facility] [place] Family Medicine [address] [place] [address] ProviderMg [place] [address] Social History Tobacco Use Types Packs/Day Years Used Date Smoking Tobacco: Never Assessed Sex and Gender Information Value Date Recorded Sex Assigned at Not on file Legal Sex Male 1:09 PM CDT Gender Identity Not on file Sexual Orientation Not on file documented as of this encounter Miscellaneous Notes * Cerner Conversion Note - Historical ProviderMD - 03/28/2018 1:36 PM NURSING HOME PHYSICIAN Education-(VTE) / (DVT) Entered On: 03/28/2018 14:58 EST Performed On: 03/28/2018 13:36 EST by BRIAN BEASLEY RN Teaching/Learning Assessment Barriers To Learning : None evident Highest Level of Education : Some college Learning Style Preferences Patient : None Learning Style Preferences Family : None BRIAN BEASLEY RN - 03/28/2018 14:58 EST Electronically signed by Morales Mejia Conversion Long Filler Cigar Roller Machine Cerner at 06/19/2022 10:53 PM CDT documented in this encounter Plan of Treatment Not on file documented as of this encounter Visit Diagnoses Not on filedocumented in this encounter
--- OUTSIDE RECORDS SUMMARY | 2025-03-03 10:20 | XMS_ITS | Encounter Summary ---
Author Organization [facility] Address [address] [place] [address] Care Team Providers Care Soda Fountain Manager Name Role Phone Herberth Perez MD Primary Care Provider Katrin Oviedo RN Unavailable [phone] Zaida Lafleur PUBLICATION EDITOR Unavailable Gracia Petersen PUBLICATION EDITOR Unavailable Yunior Solorzano MD Unavailable [phone] Ross Baez DO Unavailable [phone] Edith Aleman RN Unavailable Unavailable Encounter Details Date Type Department Care Team (Late st Contact Info) Description 05/21/2019 [facility] Historical OTTR [address] [place] [address] Shelbie Garcia, RN [facility]PITAL [facility]-T[facility] [address] [place] [address] Social History Tobacco Use Types Packs/Day Years [...] LVIDd 6.8cm, LVEF <20%. RHC performed at [facility] on 05/08/19 showed CI 1.6. SW [...] Description 04/22/2025 9:00 AM EST Ancillary Procedure [facility] [place] 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 MDRO Escalation Plan Comment:MDRO escalation plan through 05/06/24 04/15/2024 04/15/2024 04/20/2024 5:[address] documented as of this encounter Care Teams Soda Fountain Manager Relationship Specialty Start Date End Date Herberth Perez MD [address] [place] [address] [place] [address] PCP - General 07/17/20 Katrin Oviedo, RN [facility] VAD PROGRAM [address] [place] [address] VAD Coordinator Cardiology 08/06/20 10/21/24 Zaida Lafleur APRN [address] [place] [phone] Nurse Practitioner Advanced Heart Failure and Transplant Cardiology 08/06/20 06/11/23 Gracia Petersen APRN [address] [place] [address] Nurse Practitioner Internal Medicine 08/06/20 Yunior Solorzano MD [address] [address] Consulting Physician Gastroenterology 07/18/22 Ross Baez, [address] [place] [address] Surgeon Cardiothoracic Surgery 07/18/22 Edith Aleman, CARVER HAND None VAD Coordinator 10/14/24 documented as of this encounter
--- OUTSIDE RECORDS SUMMARY | 2025-03-03 10:20 | XMS_ITS | Encounter Summary ---
Author Organization [employer] ([place], [place], [place], [place], [place]) Address [address] [place] [address] Care Team Providers Care Crook Operator Name Role Phone Unavailable Primary Care Provider Unavailabl e Encounter Details Date Type Department Care Team (Late st Contact Info) Description 03/28/2018 Transcribed Document [facility] [place] [facility] [place] [address] ProviderMg MD [facility] [place] [address] Social History Tobacco Use Types Packs/Day Years Used Date Smoking Tobacco: Never Assessed Sex and Gender Information Value Date Recorded Sex Assigned at Not on file Legal Sex Male 1:09 PM CDT Gender Identity Not on file Sexual Orientation Not on file documented as of this encounter Miscellaneous Notes * Cerner Conversion Note - Historical ProviderMD - 03/28/2018 1:36 PM RENTAL SALESPERSON Cardiac and Pulmonary Outpatient [place] Entered On: 03/29/2018 15:22 EST Performed On: 03/28/2018 13:36 EST by EDITH CHAVIS RN Cardiac and Pulmonary Outpatient [facility] Phase 2 Cardiac Rehab Criteria Met : Heart failure (HF) Cardiac Outpatient Rehab Evaluation Comment : Order faxed to [place] [facility] per pt location. EDITH CHAVIS RN - 03/29/2018 15:22 EST documented in this encounter Plan of Treatment Not on file documented as of this encounter Visit Diagnoses Not on filedocumented in this encounter
--- OUTSIDE RECORDS SUMMARY | 2025-03-03 10:20 | XMS_ITS | Encounter Summary ---
Author Organization [employer] ([place], [place], [place], [place], [place]) Address [address] [place] [address] Care Team Providers Care Kennel Staff Member Name Role Phone Unavailable Primary Care Provider Stefan pond Encounter Details Date Type Department Care Team (Late st Contact Info) Description 03/28/2018 Transcribed Document [facility] [place] Medicine On [facility] of [facility] [place] [address] ProviderMg MD On [facility] [place], [place] [address] Social History Tobacco Use Types Packs/Day Years Used Date Smoking Tobacco: Never Assessed Sex and Gender Information Value Date Recorded Sex Assigned at Not on file Legal Sex Male 1:09 PM CDT Gender Identity Not on file Sexual Orientation Not on file documented as of this encounter Miscellaneous Notes * Cerner Conversion Note - Historical ProviderMD - 03/28/2018 1:21 PM GOODS LAYER Provider Notification Entered On: 03/28/2018 14:57 EST Performed On: 03/28/2018 13:21 EST by BRIAN BEASLEY RN Provider Notification Provider Notified of Concerns/Results : Other: sleep apnea Provider Notified of : Nurse concerns, Patient Arrival Provider Response : No new orders BRIAN BEASLEY RN - 03/28/2018 14:56 EST Electronically signed by Jackie [facility] Conversion Nursing Teacher Cerner at 06/19/2022 10:56 PM CDT documented in this encounter Plan of Treatment Not on file documented as of this encounter Visit Diagnoses Not on filedocumented in this encounter
--- OUTSIDE RECORDS SUMMARY | 2025-03-03 10:20 | XMS_ITS | Encounter Summary ---
Author Organization [employer] ([place], [place], [place], [place], [place]) Address [address] [place] [address] Care Team Providers Care Salvage Repairer Name Role Phone Unavailable Primary Care Provider Unavailabl e Encounter Details Date Type Department Care Team (Late st Contact Info) Description 03/28/2018 Transcribed Document [facility] [place] Family Medicine [address] [place] [address] ProviderMg [place] [address] Social History Tobacco Use Types Packs/Day Years Used Date Smoking Tobacco: Never Assessed Sex and Gender Information Value Date Recorded Sex Assigned at Not on file Legal Sex Male 1:09 PM CDT Gender Identity Not on file Sexual Orientation Not on file documented as of this encounter Miscellaneous Notes * Cerner Conversion Note - Historical ProviderMD - 03/28/2018 5:50 PM CREAM MAKER Spiritual Care Short Form Entered On: 03/28/2018 18:12 EST Performed On: 03/28/2018 17:50 EST by Billy Lewis CHAPLAIN General Information, Spiritual Care Spiritual Care Referred by : Family Reason for Visit : Initial Ministry Provided to : Patient Intervention/Comment/Summary Points : Construction Project Manager paged for a meal voucher for patient's . Construction Project Manager delivered the meal voucher. Billy Lewis CHAPLAIN - 03/28/2018 18:11 EST documented in this encounter Plan of Treatment Not on file documented as of this encounter Visit Diagnoses Not on filedocumented in this encounter
--- OUTSIDE RECORDS SUMMARY | 2025-03-03 10:20 | XMS_ITS | Encounter Summary ---
Author Organization [employer] ([place], [place], [place], [place], [place]) Address [address] [place] [address] Care Team Providers Care Keel Press Operator Name Role Phone Unavailable Primary Care Provider Stefan pond Encounter Details Date Type Department Care Team (Late st Contact Info) Description 03/28/2018 Transcribed Document [facility] [place] Family Medicine [address] [place] [address] ProviderMg MD [facility] [place] [address] Social History Tobacco Use Types Packs/Day Years Used Date Smoking Tobacco: Never Assessed Sex and Gender Information Value Date Recorded Sex Assigned at Not on file Legal Sex Male 1:09 PM CDT Gender Identity Not on file Sexual Orientation Not on file documented as of this encounter Miscellaneous Notes * Cerner Conversion Note - Historical ProviderMD - 03/28/2018 1:21 PM AVIATION PROJECT MANAGER Education-Smoking Cessation Entered On: 03/28/2018 14:57 [...]
--- OUTSIDE RECORDS SUMMARY | 2025-03-03 10:20 | XMS_ITS | Encounter Summary ---
Author Organization [employer] ([place], [place], [place], [place], [place]) Address [address] [place] [address] Care Team Providers Care Technical Business Systems Analyst Name Role Phone Unavailable Primary Care Provider Unavailabl e Encounter Details Date Type Department Care Team (Late st Contact Info) Description 03/28/2018 Transcribed Document [facility] [place] [facility] [address] ProviderMg MD [facility] [place] [id number] Social History Tobacco Use Types Packs/Day Years Used Date Smoking Tobacco: Never Assessed Sex and Gender Information Value Date Recorded Sex Assigned at Not on file Legal Sex Male 1:09 PM CDT Gender Identity Not on file Sexual Orientation Not on file documented as of this encounter Miscellaneous Notes * Cerner Conversion Note - Mg Ritchie MD - 03/28/2018 1:44 PM LEADERSHIP PROGRAM INTERN Patient: JOSE PEARSON Age: 47 years Sex: [...] Refill(s) fluticasone 50 mcg/inh nasal spray: 1 Mentor, Nostrils Both, Daily, 0 Refill(s) montelukast 10 [...] list: All Problems angina / SNOMED CT 088126077 / Confirmed Asthma / SNOMED CT 473639701 / Confirmed At risk for sleep apnea / IMO 13566644 / Confirmed cardiac defibulator / Confirmed interrogated at physicians office---02/22/13 pacemaker / SNOMED CT 3741233533 / Confirmed Cardiomyopathy / SNOMED CT 171312057 / Confirmed stroke / SNOMED CT 458556192 / Confirmed he had a stroke when they found the blood clot in valve 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 / Confirmed treated with blood thinners GERD - Gastro-esophageal reflux disease / SNOMED CT 3910859185 / Confirmed H/O: CVA / SNOMED CT 408397114 / Confirmed Heart failure / SNOMED CT 576784978 / Confirmed high cholesterol / SNOMED CT 19975585 / Confirmed Hyperlipidemia / SNOMED CT 99779790 / Confirmed hypertension / SNOMED CT 6330206222 / Confirmed myocardial infarction / SNOMED CT 38331360 / Confirmed sesonal allergies / Confirmed, Active [...] of motion, Normal strength. Integumentary: Warm, Dry, [place]. Neurologic: Alert, Oriented. Cognition and Speech: Oriented, [...]
--- OUTSIDE RECORDS SUMMARY | 2025-03-03 10:20 | XMS_ITS | Encounter Summary ---
Author Organization [employer] ([place], [place], [place], [place], [place]) Address [address] [place] [address] Care Team Providers Care Photographic Spotter Name Role Phone Unavailable Primary Care Provider Unavailrodrick e Encounter Details Date Type Department Care Team (Late st Contact Info) Description 03/28/2018 Transcribed Document [facility] [place] [address] [place] [address] ProviderMg MD [place] [address] Social History Tobacco Use Types Packs/Day Years Used Date Smoking Tobacco: Never Assessed Sex and Gender Information Value Date Recorded Sex Assigned at Not on file Legal Sex Male 1:09 PM CDT Gender Identity Not on file Sexual Orientation Not on file documented as of this encounter Miscellaneous Notes * Cerner Conversion Note - Historical ProviderMD - 03/28/2018 1:36 PM BREADMAN Education-Cardiac Topics Entered On: 03/28/2018 14:58 EST Performed On: 03/28/2018 13:36 EST by BRIAN BEASLEY RN Teaching/Learning Assessment Barriers To Learning : None evident Highest Level of Education : Some college Learning Style Preferences Patient : None Learning Style Preferences Family : None BRIAN BEASLEY RN - 03/28/2018 14:58 EST Electronically signed by Jackie [facility] Conversion Fingernail Former Cerner at 06/19/2022 11:03 PM CDT documented in this encounter Plan of Treatment Not on file documented as of this encounter Visit Diagnoses Not on filedocumented in this encounter
--- OUTSIDE RECORDS SUMMARY | 2025-03-03 10:21 | XMS_ITS | Referral Summary ---
Author Organization [employer] ([place], [place], [place], [place], [place]) Address [address] [place] [address] Care Team Providers Care Parimutuel Ticket Cashier Name Role Phone Unavailable Primary Care Provider [...]
--- OUTSIDE RECORDS SUMMARY | 2025-03-03 10:21 | XMS_ITS | Encounter Summary ---
Author Organization [employer] ([place], [place], [place], [place], [place]) Address [address] [place] [address] Care Team Providers Care Telephone Diaphragm Assembler Name Role Phone Unavailable Primary Care Provider Unavailabl e Encounter Details Date Type Department Care Team (Late st Contact Info) Description 2019 Transcribed Document [facility] [place] Family Medicine [facility] [place] [address] ProviderMg MD [facility] [place] [id number] Social History Tobacco Use Types Packs/Day Years Used Date Smoking Tobacco: Never Assessed Sex and Gender Information Value Date Recorded Sex Assigned at Not on file Legal Sex Male 1:09 PM CDT Gender Identity Not on file Sexual Orientation Not on file documented as of this encounter Miscellaneous Notes * Cerner Conversion Note - Mg Ritchie MD - 2019 12:47 PM TAR ROOFER Patient: JOSE PEARSON Age: 48 years Sex: [...] Non-distended, Normal bowel sounds. Integumentary: Warm, Dry, [place], No rash. Results Review General results [facility] [...] plan of care. Electronically signed by Jackie, [facility] Conversion Bioprocess Development Engineer Cerner at 06/19/2022 10:53 PM CDT documented in this encounter Plan of Treatment Not on file documented as of this encounter Visit Diagnoses Not on filedocumented in this encounter
--- OUTSIDE RECORDS SUMMARY | 2025-03-03 10:21 | XMS_ITS | Encounter Summary ---
Author Organization [facility] Address [address] [place] [address] Care Team Providers Care Barrel Bung Remover And Dumper Name Role Phone Herberth Perez MD Primary Care Provider Katrin Oviedo RN Unavailable [phone] Zaida Lafleur ESTHETICIAN/SPA COORDINATOR Unavailable [phone] Gracia Petersen ESTHETICIAN/SPA COORDINATOR Unavailable Yunior Solorzano MD Unavailable [phone] Ross Baez DO Unavailable [phone] Edith Aleamn RN Unavailable Unavailable Reason for Visit * Reason Comments Med Refill Encounter Details Date Type Department Care Team (Late st Contact Info) Description 10/08/2020 [facility] [address] [place] [address] Deandre Sanchez MD [address] [place] [address] Social History Tobacco Use Types [...] encounter Miscellaneous Notes * Telephone Encounter - Gadrenia Martinez - 10/09/2020 10:23 AM EDT Approving, but needs appt for additional refills. documented in this encounter Plan of Treatment Upcoming Encounters Date Type Department Care Team (Late st Contact Info) Description 04/22/2025 9:00 AM EST Ancillary Procedure [facility] [address] [place] [address] documented as of this encounter Visit Diagnoses [...] documented as of this encounter Care Teams Barrel Bung Remover And Dumper Relationship Specialty Start Date End Date Herberth Perez MD [address] [place] [address] [place] [address] PCP - General 07/17/20 Katrin Oviedo, [facility] [address] [place] [address] VAD Coordinator Cardiology 08/06/20 10/21/24 Zaida Lafleur APRN [address] [place] [address] Nurse Practitioner Advanced Heart Failure and Transplant Cardiology 08/06/20 06/11/23 Gracia Petersen APRN [address] [place] [address] Nurse Practitioner Internal Medicine 08/06/20 Yunior Solorzano MD [address] [place] [address] Consulting Physician Gastroenterology 07/18/22 Ross Baez DO [address] [address] Surgeon Cardiothoracic Surgery 07/18/22 Edith Aleman, SHEARING SHED HAND None VAD Coordinator 10/14/24 documented as of this encounter
--- OUTSIDE RECORDS SUMMARY | 2025-03-03 10:21 | XMS_ITS | Encounter Summary ---
Author Organization [facility] Address [address] [place] [address] Care Team Providers Care Senior Software Qa Engineer Name Role Phone Herberth Perez MD Primary Care Provider [phone] Gracia Petersen FINISHED GOODS STOCK CLERK Unavailable [phone] Yunior Solorzano MD Unavailable [phone] Ross Baez DO Unavailable [phone] Edith Aleman RN Unavailable Unavailable Encounter Details Date Type Department Care Team (Late st Contact Info) Description 01/27/2025 [facility] [place] [address] [place] [address] Edith Aleman, ROUTE SALES DELIVERY DRIVERS SUPERVISOR None Social History Tobacco Use Types Packs/Day [...] drink first t janine in the morning (EYE-PHOTOGRAPHER MODEL) to steady your nerves or to [...] Description 04/22/2025 9:00 AM EST Ancillary Procedure [facility] [place] [facility] [address] [place] [address] documented as of this encounter Goals Goal Patient Goal Type Associated Problems Recent Progress Patient-Stated? Author LVAD Short Term Goal General On track( 11:53 AM EDT) Yes Katrin Oviedo, RN Note: - 07/04/23: Patient states he wants to attend a wedding in November in [place] [facility] Goal General On track( 11:53 AM EDT) [...] as of this encounter Care Teams Senior Software Qa Engineer Relationship Specialty Start Date End Date Herberth Perez MD [address] [place] [address] [place] [address] PCP - General 07/17/20 Gracia Petersen, LORI [address] [place] [address] Nurse Practitioner Internal Medicine 08/06/20 Yunior Solorzano MD [address] [place] [address] Consulting Physician Gastroenterology 07/18/22 Ross Baez, [address] [place] [address] Surgeon Cardiothoracic Surgery 07/18/22 Edith Aleman, ROUTE SALES DELIVERY DRIVERS SUPERVISOR None VAD Coordinator 10/14/24 documented as of this encounter
--- OUTSIDE RECORDS SUMMARY | 2025-03-03 10:21 | XMS_ITS | Encounter Summary ---
Author Organization [employer] ([place], [place], [place], [place], [place]) Address [address] [place] [address] Care Team Providers Care Batcher Operator Name Role Phone Unavailable Primary Care Provider Unavailabl e Encounter Details Date Type Department Care Team (Late st Contact Info) Description 2019 Transcribed Document [facility] [place] Family Medicine [facility] [place] [address] ProviderMg MD [facility] [place] [address] Social History Tobacco Use Types Packs/Day Years Used Date Smoking Tobacco: Never Assessed Sex and Gender Information Value Date Recorded Sex Assigned at Not on file Legal Sex Male 1:09 PM CDT Gender Identity Not on file Sexual Orientation Not on file documented as of this encounter Miscellaneous Notes * Cerner Conversion Note - Mg Ritchie MD - 2019 8:38 PM PRACTICAL NURSING FACULTY Patient Education Materials Follows: Angiogram, Care After [...] water are not available, use hand director data. ? Change your dressing as told by [...] contrast dye from your body. ??? Take rbxy-snh-ylhtsed and prescription medicines only as told by [...] 09/08/2005 Document Revised: 01/25/2017 Document Reviewed: 01/25/2017 [employer] Interactive Patient Education ? 2019 [employer] Heart-Healthy Eating Plan Many factors influence [...] foods can I eat? Grains Breads, including Marshallese, white, raymundo, wheat, raisin, rye, oatmeal, and Samoan. Tortillas that are neither fried nor made with lard or trans fat. Low-fat rolls, including hotdog and hamburger buns and Finnish muffins. Biscuits. Muffins. Waffles. Pancakes. Light popcorn. Whole-grain cereals. Flatbread. Midway toast. Pretzels. Breadsticks. Rusks. Low-fat snacks and [...] cooking, baking, salads, and as spreads. Other Marmarth powder. Coffee and tea. All seasonings and [...] cheese. Whole milk cheeses, including blue (ana), [place] Jl, Brie, Temo, Burundian, Havarti, Solomon Islander, cheddar, Camembert, and [place]. Whole or 2% milk that is [...] that has suet, meat fat, or shortening. Marmarth butter, hydrogenated oils, palm oil, coconut oil, [...] 11/29/2008 Document Revised: 09/09/2016 Document Reviewed: 08/14/2014 [employer] Interactive Patient Education ? 2019 [employer] Low-Sodium Eating Plan Sodium, which is [...] (monosodium glutamate). MSG is sometimes added to Nigerien food, bouillon, and some canned foods. What [...] such as ricotta cheese, fresh mozzarella, or Solomon Islander cheese Low-sodium or reduced-sodium cheese. Cream cheese. [...] Vegetables Sauerkraut, pickled vegetables, and relishes. Olives. Marshallese fries. Onion rings. Regular canned vegetables (not [...] salad dressings. Salsa. Potato and tortilla chips. Culver chips and puffs. Salted popcorn and pretzels. [...] 08/12/2002 Document Revised: 02/13/2017 Document Reviewed: 02/13/2017 [employer] Interactive Patient Education ? 2019 [employer]. Heart-Healthy Eating Plan Heart-healthy meal planning includes: [...] foods can I eat? Grains Breads, including Marshallese, white, raymundo, wheat, raisin, rye, oatmeal, and Samoan. Tortillas that are neither fried nor made with lard or trans fat. Low-fat rolls, including hotdog and hamburger buns and Finnish muffins. Biscuits. Muffins. Waffles. Pancakes. Light popcorn. Whole-grain cereals. Flatbread. Midway toast. Pretzels. Breadsticks. Rusks. Low-fat snacks. Low-fat [...] cooking, baking, salads, and as spreads. Other Marmarth powder. Coffee and tea. All seasonings and [...] cottage cheese. Whole-milk cheeses, including blue (ana), Wil[place] Jl, Brie, Temo, Burundian, Havarti, Solomon Islander, cheddar, Camembert, and [place]. Whole or 2% milk that is [...] that has suet, meat fat, or shortening. Marmarth butter, hydrogenated oils, palm oil, coconut oil, [...] 08/21/2012 Document Revised: 07/28/2016 Document Reviewed: 08/14/2014 [employer] Interactive Patient Education ? 2019 [employer] Cardiovascular Living With Heart Failure Heart [...] failure, and improving your symptoms. ??? Take zkih-die-seubnsv and prescription medicines only as told by [...] provider about groups near you. ??? The [place] [employer]: www.heart.org Contact a health care [...] 07/05/2017 Document Revised: 07/05/2017 Document Reviewed: 07/05/2017 [employer] Interactive Patient Education ? 2019 [employer] Heart Failure Heart failure is a [...] these instructions at home: Medicines ??? Take odfs-ccd-quljqkj and prescription medicines only as told by [...]
--- OUTSIDE RECORDS SUMMARY | 2025-03-03 10:21 | XMS_ITS | Encounter Summary ---
Author Organization [employer] ([place], [place], [place], [place], [place]) Address [address] [place] [address] Care Team Providers Care Machine Precision Etcher Name Role Phone Unavailable Primary Care Provider Unavailabl e Encounter Details Date Type Department Care Team (Late st Contact Info) Description 05/22/2019 Transcribed Document [facility] [place] Family Medicine [facility] [place] [address] ProviderMg MD [facility] [place] [place] [address] Social History Tobacco Use Types [...] Performed On: 05/22/2019 12:43 EDT by EDITH CHAIVS, radiotelegraph operator servicer and Pulmonary Outpatient [facility] Card[facility] Outpatient Rehab Evaluation Comment : [facility] - 05/22/2019 12:43 EDT documented in this encounter Plan of Treatment Not on file documented as of this encounter Visit Diagnoses Not on filedocumented in this encounter
--- OUTSIDE RECORDS SUMMARY | 2025-03-03 10:21 | XMS_ITS | Encounter Summary ---
Author Organization [employer] ([place], [place], [place], [place], [place]) Address [address] [place] [address] Care Team Providers Care Epic Application Coordinator Name Role Phone Unavailable Primary Care Provider Unavailabl e Encounter Details Date Type Department Care Team (Late st Contact Info) Description 2019 Transcribed Document [facility] [place] [facility] [place] [address] ProviderMg MD [facility] [place] [address] Social History Tobacco Use [...] Mg Ritchie MD - 2019 8:38 PM MANUSCRIPTS CURATOR [place] [id number] JOSE PEARSON :1970 Visit Time:05/03/2019 Your Visit [...] appoint/instructions Where: [address] [place] [address]- Business (1) Follow Up with SO BURDICK When Within 1 week Comments Office to call with appoint/instructions Where: [address] [place] [address]- Business (1) Medications What How Much When Instructions Next Dose bumetanide (bumetanide 2 mg oral tablet) 1 Tablet(s) Oral Two Times A Day Pickup at [place] [address] start 05/10 cyclobenzaprine (cyclobenzaprine 10 mg oral tablet) 0.5 Tablet(s) Oral Two Times A Day as needed for Cramping Pickup at [place] [address] as needed magnesium oxide (magnesium oxide 400 mg (240 mg elemental magnesium) oral tablet) 1 Tablet(s) Oral Two Times A Day Pickup at [place] [address] start 05/10 metOLazone (metOLazone 10 mg oral tablet) 1 Tablet(s) Oral Every Day Pickup at [place] [address] start 05/10 dofetilide (Tikosyn 125 mcg oral capsule) 3 Capsule(s) Oral Two Times A Day Pickup at [place] [address] start 05/10 spironolactone (Aldactone 25 mg oral tablet) 2 Tablet(s) Oral Every Day Pickup at [place] [address] start 05/10 carvedilol (carvedilol 3.125 mg oral [...] Times A Day start 05/10 Pharmacy Information [facility] [address]: [address] [place], [place] [id number] [phone] Take your medications faithfully. Do NOT skip [...] and water are not available, use hand web site designer. ? Change your dressing as told by [...] contrast dye from your body. ??? Take vpfs-aoy-hczhztj and prescription medicines only as told by [...] 09/08/2005 Document Revised: 01/25/2017 Document Reviewed: 01/25/2017 [employer] Interactive Patient Education ?? 2019 [employer]. Heart-Healthy Eating Plan Many factors influence [...] foods can I eat? Grains Breads, including Nicaraguan, white, raymundo, wheat, raisin, rye, oatmeal, and Russian. Tortillas that are neither fried nor made with lard or trans fat. Low-fat rolls, including hotdog and hamburger buns and Vietnamese muffins. Biscuits. Muffins. Waffles. Pancakes. Light popcorn. Whole-grain cereals. Flatbread. [place] toast. Pretzels. Breadsticks. Rusks. Low-fat snacks and [...] cooking, baking, salads, and as spreads. Other Brackenridge powder. Coffee and tea. All seasonings and [...] cheese. Whole milk cheeses, including blue (ana), [place], Brie, Temo, Cymro, Havarti, Russian, cheddar, Camembert, and [place]. Whole or 2% milk that is liquid, [...] that has suet, meat fat, or shortening. Brackenridge butter, hydrogenated oils, palm oil, coconut oil, [...] 11/29/2008 Document Revised: 09/09/2016 Document Reviewed: 08/14/2014 [employer] Interactive Patient Education ?? 2019 [employer]. Living With Heart Failure Heart failure [...] failure, and improving your symptoms. ??? Take vcsx-huw-hqujzhp and prescription medicines only as told by [...] provider about groups near you. ??? The [place]ym[place] Heart Association: www.heart.org Contact a health care [...] 07/05/2017 Document Revised: 07/05/2017 Document Reviewed: 07/05/2017 [employer] Interactive Patient Education ?? 2019 [employer]. Heart Failure Heart failure is a [...] these instructions at home: Medicines ??? Take vumo-sic-vevtiul and prescription medicines only as told by [...] 02/20/2006 Document Revised: 10/25/2016 Document Reviewed: 09/14/2016 [employer] Interactive Patient Education ?? 2017 [employer]. Low-Sodium Eating Plan Sodium, which is [...] (monosodium glutamate). MSG is sometimes added to Kinyarwanda food, bouillon, and some canned foods. What [...] such as ricotta cheese, fresh mozzarella, or Russian cheese Low-sodium or reduced-sodium cheese. Cream cheese. [...] Vegetables Sauerkraut, pickled vegetables, and relishes. Olives. Nicaraguan fries. Onion rings. Regular canned vegetables (not [...] salad dressings. Salsa. Potato and tortilla chips. Golf chips and puffs. Salted popcorn and pretzels. [...] 08/12/2002 Document Revised: 02/13/2017 Document Reviewed: 02/13/2017 [employer] Interactive Patient Education ?? 2019 [employer]. Heart-Healthy Eating Plan Heart-healthy meal planning includes: [...] foods can I eat? Grains Breads, including Nicaraguan, white, raymundo, wheat, raisin, rye, oatmeal, and Russian. Tortillas that are neither fried nor made with lard or trans fat. Low-fat rolls, including hotdog and hamburger buns and Vietnamese muffins. Biscuits. Muffins. Waffles. Pancakes. Light popcorn. [...] cooking, baking, salads, and as spreads. Other Brackenridge powder. Coffee and tea. All seasonings and [...] cottage cheese. Whole-milk cheeses, including blue (ana), [place], Brie, Temo, Cymro, Havarti, Russian, cheddar, Camembert, and [place]. Whole or 2% milk that is liquid, [...] that has suet, meat fat, or shortening. Brackenridge butter, hydrogenated oils, palm oil, coconut oil, [...] 08/21/2012 Document Revised: 07/28/2016 Document Reviewed: 08/14/2014 [employer] Interactive Patient Education ?? 2019 Toldo. spironolactone (spir ON oh LAK tone) Aldactone, CaroSpir What is the most important information I should know about spironolactone? You should not use spironolactone if you have kidney problems, high levels of potassium in your blood, Comal's disease, if you are unable to urinate, [...] to it, or if you have: ?? Comal's disease (an adrenal gland disorder); ?? high [...] may report side effects to FDA at 1-425-WEX-9266. What other drugs will affect spironolactone? Taking [...] may interact with spironolactone, including prescription and bkdv-ssv-qwxkdrh medicines, vitamins, and herbal products. Not all [...] to ensure that the information provided by [employer]. ('Mult[employer]') is accurate, up-to-date, and complete, but no guarantee is made to that effect. Drug information contained herein may be time sensitive. O[employer] information has been compiled for use by healthcare practitioners and consumers in the [place] and therefore [employer] does not warrant that uses outside of the [place] are appropriate, unless specifically indicated otherwise. O[employer]'s drug information does not endorse drugs, diagnose patients or recommend therapy. Face.coms drug information is an informational resource designed [...] effective or appropriate for any given patient. O[employer] does not assume any responsibility for any aspect of healthcare administered with the aid of information Oatmeal provides. The information contained herein is not intended to cover all possible uses, directions, precautions, warnings, drug interactions, allergic reactions, or adverse effects. If you have questions about the drugs you are taking, check with your doctor, nurse or pharmacist. Copyright 1349-9270 [employer]plify. Version: 10.01. Revision Date: 03/02/2017. metolazone (me [...]
--- OUTSIDE RECORDS SUMMARY | 2025-03-03 10:21 | XMS_ITS | Encounter Summary ---
Author Organization [employer] ([place], [place], [place], [place], [place]) Address [address] [place] [address] Care Team Providers Care Major Donor Coordinator Name Role Phone Unavailable Primary Care Provider Unavailabl e Encounter Details Date Type Department Care Team (Late st Contact Info) Description 2019 Transcribed Document [facility] [place] [facility] [place] [address] ProviderMg MD [facility] [place] [address] Social History Tobacco Use [...] Mg Ritchie MD - 2019 8:53 PM PHYSICAL THERAPY TECHNICIAN [place] [id number] JOSE PEARSON :1970 Visit Time:05/03/2019 Your Visit [...] appoint/instructions Where: [address] [place] [address]- Business (1) Follow Up with SO BURDICK When Within 1 week Comments Office to call with appoint/instructions Where: [address] [place] [address]- Business (1) Medications What How Much When Instructions Next Dose bumetanide (bumetanide 2 mg oral tablet) 1 Tablet(s) Oral Two Times A Day Pickup at [facility] [address] cyclobenzaprine (cyclobenzaprine 10 mg oral tablet) 0.5 Tablet(s) Oral Two Times A Day as needed for Cramping Pickup at [place] [address] magnesium oxide (magnesium oxide 400 mg (240 mg elemental magnesium) oral tablet) 1 Tablet(s) Oral Two Times A Day Pickup at [place] [address] metOLazone (metOLazone 10 mg oral tablet) 1 Tablet(s) Oral Every Day Pickup at [place] [address] dofetilide (Tikosyn 125 mcg oral capsule) 3 Capsule(s) Oral Two Times A Day Pickup at [place] [address] spironolactone (Aldactone 25 mg oral tablet) 2 Tablet(s) Oral Every Day Pickup at [place] [address] carvedilol (carvedilol 3.125 mg oral tablet) cetirizine [...] Times A Day Pharmacy Information [facility] [address]: [address] [place], [place] [phone] Take your medications faithfully. Do NOT skip [...] and water are not available, use hand chaplain. ? Change your dressing as told by [...] contrast dye from your body. ??? Take vwlj-pcv-xmqbbis and prescription medicines only as told by [...] 09/08/2005 Document Revised: 01/25/2017 Document Reviewed: 01/25/2017 Else[employer] Interactive Patient Education ?? 2019 [employer]. Heart-Healthy Eating Plan Many factors influence [...] foods can I eat? Grains Breads, including Zimbabwean, white, raymundo, wheat, raisin, rye, oatmeal, and Vincentian. Tortillas that are neither fried nor made with lard or trans fat. Low-fat rolls, including hotdog and hamburger buns and Qatari muffins. Biscuits. Muffins. Waffles. Pancakes. Light popcorn. Whole-grain cereals. Flatbread. [place] toast. Pretzels. Breadsticks. Rusks. Low-fat snacks and [...] cooking, baking, salads, and as spreads. Other [place]aconia powder. Coffee and tea. All seasonings and [...] cheese. Whole milk cheeses, including blue (ana), Ascension Jl, Brie, Temo, Puerto Rican, Havarti, Kenyan, cheddar, Camembert, and [place]. Whole or 2% milk that is liquid, [...] that has suet, meat fat, or shortening. [place] butter, hydrogenated oils, palm oil, coconut oil, [...] 11/29/2008 Document Revised: 09/09/2016 Document Reviewed: 08/14/2014 [employer] Interactive Patient Education ?? 2019 [employer]. Living With Heart Failure Heart failure [...] failure, and improving your symptoms. ??? Take bqjr-zvr-bjgafpl and prescription medicines only as told by [...] provider about groups near you. ??? The [place] Heart Association: www.heart.org Contact a health care [...] 07/05/2017 Elsevier Interactive Patient Education ?? 2019 [employer]. Heart Failure Heart failure is a [...] these instructions at home: Medicines ??? Take alpi-nhy-xluumua and prescription medicines only as told by [...] 02/20/2006 Document Revised: 10/25/2016 Document Reviewed: 09/14/2016 [employer] Interactive Patient Education ?? 2017 iFit. Low-Sodium Eating Plan Sodium, which is an [...] (monosodium glutamate). MSG is sometimes added to Occitan food, bouillon, and some canned foods. What [...] such as ricotta cheese, fresh mozzarella, or Kenyan cheese Low-sodium or reduced-sodium cheese. Cream cheese. [...] Vegetables Sauerkraut, pickled vegetables, and relishes. Olives. Zimbabwean fries. Onion rings. Regular canned vegetables (not [...] salad dressings. Salsa. Potato and tortilla chips. [place] chips and puffs. Salted popcorn and pretzels. [...] 08/12/2002 Document Revised: 02/13/2017 Document Reviewed: 02/13/2017 Global [employer] Interactive Patient Education ?? 2019 iFit. Heart-Healthy Eating Plan Heart-healthy meal planning includes: [...] foods can I eat? Grains Breads, including Zimbabwean, white, raymundo, wheat, raisin, rye, oatmeal, and Vincentian. Tortillas that are neither fried nor made with lard or trans fat. Low-fat rolls, including hotdog and hamburger buns and Qatari muffins. Biscuits. Muffins. Waffles. Pancakes. Light popcorn. [...] cooking, baking, salads, and as spreads. Other [place]aconia powder. Coffee and tea. All seasonings and [...] cottage cheese. Whole-milk cheeses, including blue (ana), Ascension Jl, Brie, Temo, Puerto Rican, Havarti, Kenyan, cheddar, Camembert, and [place]. Whole or 2% milk that is liquid, [...] that has suet, meat fat, or shortening. Waconia butter, hydrogenated oils, palm oil, coconut oil, [...] 08/21/2012 Document Revised: 07/28/2016 Document Reviewed: 08/14/2014 Global [employer] Interactive Patient Education ?? 2019 iFit. spironolactone (spir ON oh LAK tone) Aldactone, [...] to it, or if you have: ?? [place]'s disease (an adrenal gland disorder); ?? high [...] may report side effects to FDA at 0-661-FYB-2985. What other drugs will affect spironolactone? Taking [...] may interact with spironolactone, including prescription and ldnh-pno-szdjkyn medicines, vitamins, and herbal products. Not all [...] to ensure that the information provided by [employer]. ('Multum') is accurate, up-to-date, and complete, but no guarantee is made to that effect. Drug information contained herein may be time sensitive. Mut[employer]x information has been compiled for use by healthcare practitioners and consumers in the [place] and therefore Mut[employer]x does not warrant that uses outside of the [place] are appropriate, unless specifically indicated otherwise. Mutracx's drug information does not endorse drugs, diagnose patients or recommend therapy. St[employer] Cell The[employer]ss drug information is an informational resource designed [...] effective or appropriate for any given patient. Mut[employer]x does not assume any responsibility for any aspect of healthcare administered with the aid of information Mutracx provides. The information contained herein is not intended to cover all possible uses, directions, precautions, warnings, drug interactions, allergic reactions, or adverse effects. If you have questions about the drugs you are taking, check with your doctor, nurse or pharmacist. Copyright 0407-9100 GetSet. Version: 10.. Revision Date: 03/02/2017. metolazone (me [...]
--- OUTSIDE RECORDS SUMMARY | 2025-03-03 10:21 | XMS_ITS | Encounter Summary ---
Author Organization [facility] Address [address] [place] [address] Care Team Providers Care Medical Surgical Tech Name Role Phone Herberth Perez MD Primary Care Provider Katrin Oviedo RN Unavailable [phone] Zaida Lafleur DRY FOLDER CLOTH Unavailable Gracia Petersen DRY FOLDER CLOTH Unavailable Yunior [place] MD Unavailable [phone] Ross Baez DO Unavailable [phone] Edith Aleman RN Unavailable Unavailable Encounter Details Date Type Department Care Team (Late st Contact Info) Description 11/10/2020 [facility] [address] [place] [address] Herberth Perez MD [address] [place] [id number] Gross hematuria (Primary Dx) Social History [...] Description 04/22/2025 9:00 AM EST Ancillary Procedure [facility] [place] [facility] [address] [facility] [place] [address] documented as of this encounter Visit Diagnoses [...] documented as of this encounter Care Teams Medical Surgical Tech Relationship Specialty Start Date End Date Herberth Perez MD [address] [place] [address] [place] [address] PCP - General 07/17/20 Katrin Oviedo, RN [facility] [address] [place] [address] VAD Coordinator Cardiology 08/06/20 10/21/24 Zaida Lafleur APRN [address] [place] [address] Nurse Practitioner Advanced Heart Failure and Transplant Cardiology 08/06/20 06/11/23 Gracia Petersen, DRY FOLDER CLOTH [address] [place] [phone] Nurse Practitioner Internal Medicine 08/06/20 Yunior Solorzano MD [address] [place] [address] Consulting Physician Gastroenterology 07/18/22 Ross Baez, DO [address] [place] [phone] Surgeon Cardiothoracic Surgery 07/18/22 Edith Aleman, IMAGERY INTELLIGENCE None VAD Coordinator 10/14/24 documented as of this encounter
--- OUTSIDE RECORDS SUMMARY | 2025-03-03 10:21 | XMS_ITS | Clinical Summary ---
Author Organization [employer] ([place], [place], [place], [place], [place]) Address [address] [place] [address] Care Team Providers Care Transfer Controller Name Role Phone Unavailable Primary Care Provider [...]
--- OUTSIDE RECORDS SUMMARY | 2025-03-03 10:21 | XMS_ITS | Encounter Summary ---
Author Organization [facility] Address [address] [place] [address] Care Team Providers Care Substance Abuse Specialist Name Role Phone Herberth Perez MD Primary Care Provider [phone] Gracia Petersen NURSE GYNECOLOGY Unavailable [phone] Yunior [place] MD Unavailable [phone] Ross Baez DO Unavailable [phone] Edith Aleman RN Unavailable Unavailable Encounter Details Date Type Department Care Team (Late st Contact Info) Description 01/24/2025 [facility] [place] [address] [place] [phone] Edith Aleman, RESPIRATORY CARE SPECIALIST None Infection associated with driveline of left [...] drink first t janine in the morning (EYE-MAIL CALLER) to steady your nerves or to get rid of a hangover? 0 09/19/2021 CAGE Questionnaire Score 0 022 Utilities Answer Date Recorded In the past 12 months has e [employer], gas, oil, or water company threatened to [...] Description 04/22/2025 9:00 AM EST Ancillary Procedure [facility] [place] [facility] [address] [place] [address] documented as of this encounter Goals Goal Patient Goal Type Associated Problems Recent Progress Patient-Stated? Author LVAD Short Term Goal General On track( 024 11:53 AM EDT) Yes Katrin Oviedo RN Note: - 07/04/23: Patient states he wants to attend a wedding in November in [place] LVAD Usp Goal General On track( 024 [...] documented as of this encounter Care Teams Substance Abuse Specialist Relationship Specialty Start Date End Date Herberth Perez MD [address] [place] [address] PCP - General 07/17/20 Gracia Petersen APRN [address] [place] [address] Nurse Practitioner Internal Medicine 08/06/20 Yunior Solorzano MD [address] [place] [address] Consulting Physician Gastroenterology 07/18/22 Ross Baez, [address] [address] Surgeon Cardiothoracic Surgery 07/18/22 Edith Aleman, RESPIRATORY CARE SPECIALIST None VAD Coordinator 10/14/24 documented as of this encounter
--- OUTSIDE RECORDS SUMMARY | 2025-03-03 10:21 | XMS_ITS | Encounter Summary ---
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 Name Role Phone Unavailable Primary Care Provider Unavailabl e Encounter Details Date Type Department Care Team (Late st Contact Info) Description 2019 Transcribed Document [facility] [place] [address] ProviderMg [place] [address] Social History Tobacco Use Types Packs/Day Years Used Date Smoking Tobacco: Never Assessed Sex and Gender Information Value Date Recorded Sex Assigned at Not on file Legal Sex Male 1:09 PM CDT Gender Identity Not on file Sexual Orientation Not on file documented as of this encounter Miscellaneous Notes * Cerner Conversion Note - Mg ProviderMD - 2019 3:00 AM [employer]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 games manager noted referral made to outpatient cardiac [...] Labs and meds reviewed. [facility]/kg/min. LBM -receiving colace. [...]
--- OUTSIDE RECORDS SUMMARY | 2025-03-03 10:21 | XMS_ITS | Encounter Summary ---
Author Organization [facility] Address [address] [place] [address] Care Team Providers Care Roller Picker Name Role Phone Herberth Perez MD Primary Care Provider [phone] Katrin Oviedo RN Unavailable [phone] Zaida Lafleur SKIN DIVING TEACHER Unavailable Gracia Petersen SKIN DIVING TEACHER Unavailable Yunior Solorzano MD Unavailable [phone] Ross Baez DO Unavailable [phone] Edith Aleman RN Unavailable Unavailable Encounter Details Date Type Department Care Team (Late st Contact Info) Description 01/21/2020 Legacy OTTR Encounter Historical OTTR [address] [place] [address] Katrin Oviedo, RN [facility] [address] [place] [address] Social History Tobacco Use Types Packs/Day Years [...] and recheck INR tomorrow. Prescription sent to [facility] for 2.5mg phytonadione once. Dr. De Los Santos, LORI Lafleur, Sanjay White, VAD coordinators notified. * Progress Notes - Katrin Oviedo RN - 07/07/2020 5:21 PM EDT Patient extremely tired, sleeping throughout day, occasionally incontinent of urine since starting dantrolene per [facility]. Discussed with Sanjay White; these could [...] 06/03/2020 3:20 PM EDT Patient [facility] at [facility]. Verified with Sanjay [...] skin) with Vashe wound cleanser. Dr. Raya, [facility] notified. * Progress Notes - Katrin Oviedo RN - 01/21/2020 11:21 AM EST Patient's bronch moved [place] [facility] [place] Sanchez. ECHO performed to assess [...] Wilson RN - 11/25/2019 3:58 PM EDT [facility] ED Doctor Yared contacted [facility] Coordinator to report that patient's [...] Monday. VCs aware. * Progress Notes - Shlebie Garcia - 06/07/2019 4:27 PM EDT HM3 [...] friends. Pt's eldest step-son Dwain currently works multimedia coordinator and is a student multimedia coordinator. Pt also reports multiple additional family members [...] Pt also denied any legal problems or jehovah's witness restrictions on medical care. Pt scored 25 on the SIPAT ([place] Integrated Psychosocial Assessment for Transplant) which therefore [...] in SCM or All Docs (Txp SW #[id number], pager [phone]). * Progress Notes - Heber Page - 05/17/2019 1:30 PM EDT Colonoscopy Report is scanned into OTTR. * Progress Notes - Heber Page - 05/14/2019 4:24 PM EDT Most recent Hosp Discharge Summaries from [facility] and [facility] along with the Ablation from 06/2018 have [...] if he arrived in AM and the c.o.d. 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, ablation 2019 at [facility], previous RHC done in 2018 or 2019 at [facility], colonoscopy done 2019 at [facility], admitted to [facility] on 05/02/19 and also in Mar 2019, Cardiomems implanted last week (notified Heber Cornejo to request records for ablation, most recent RHC, colonoscopy and admissions) pt receives disability benefits, emailed map with appt info to [email or web address] Kailey Shetty notified to cancel appt on 05/26, notified MD Baez of the above and emailed eval notified to the eval listserv * Progress Notes - Shelbie Garcia - 05/13/2019 5:25 PM EDT per email from MD Baez: I received a phone call in the middle of [facility] and did not get the name of [...] set up an appt with his regular Industrial Economics Teacher for . I explained beingtransferred to or [...] appt set up with Enrique on 05/23/19. CLEOPATRA stated pt does not need that appt and to cancel and set up with HF team. She called referring and spoke to mildred. PT was dc'd on Monday. documented in this encounter Plan of Treatment Upcoming Encounters Date Type Department Care Team (Late st Contact Info) Description 04/22/2025 9:00 AM EST Ancillary Procedure [facility] [place] [facility] [address] [place] [address] documented as of this encounter Procedures Procedure [...] ORDERABLES Final R esult Performing Organization Address City/[facility]/ZIP Co de Phone Number EXTERNAL LAB * OTTR LAB RESULTS (MANUAL) (06/16/2020 10:46 AM EDT) External Estimated GFR 148.12 EXTERNAL LAB 06/16/2020 10:4 6 AM EDT Narrative EXTERNAL LAB - 06/16/2020 12:27 PM EDT Automated LAB Interface us Historical Provider LAB BLOOD ORDERABLES Final R esult Performing Organization Address City/[facility]/ZIP Co de Phone Number EXTERNAL LAB * [...] EXTERNAL LAB - 12/25/2019 9:37 AM EDT [facility] Historical Provider LAB BLOOD ORDERABLES Final R esult Performing Organization Address City/[facility]/ZIP Co de Phone Number EXTERNAL LAB * [...] EXTERNAL LAB - 12/17/2019 11:04 AM EDT [facility] Historical Provider LAB BLOOD ORDERABLES Final [...] EXTERNAL LAB - 11/25/2019 2:41 PM EDT [facility] us Historical Provider LAB BLOOD ORDERABLES Final R esult EXTERNAL LAB * OTTR LAB RESULTS (MANUAL) (11/19/2019 9:34 AM EDT) External Estimated GFR 108.32 EXTERNAL LAB 11/19/2019 9:34 AM EDT Narrative EXTERNAL LAB - 11/19/2019 10:39 AM EDT Automated LAB Interface Historical Provider LAB BLOOD ORDERABLES Final R esult Performing Organization Address City/[facility]/ZIP Co de Phone Number EXTERNAL LAB * [...] EXTERNAL LAB - 11/08/2019 9:10 AM EDT [facility] us Historical Provider LAB BLOOD [...] EXTERNAL LAB - 11/05/2019 10:09 AM EDT [facility] us Historical Provider LAB BLOOD [...] EXTERNAL LAB - 10/22/2019 4:46 PM EDT [facility] Historical Provider LAB BLOOD ORDERABLES Final R esult Performing Organization Address [facility] de Phone Number EXTERNAL LAB [...] EXTERNAL LAB - 09/27/2019 5:06 PM EDT [facility] Historical Provider LAB BLOOD ORDERABLES Final R esult Performing Organization Address [facility] de Phone Number EXTERNAL LAB * OTTR LAB RESULTS (MANUAL) (08/14/2019 3:03 AM EDT) External Estimated GFR 282.34 EXTERNAL LAB 08/14/2019 3:03 AM EDT Narrative EXTERNAL LAB - 08/14/2019 4:51 AM EDT Automated LAB Interface Historical Provider LAB BLOOD ORDERABLES Final R esult Performing Organization Address [facility] de Phone Number EXTERNAL LAB * OTTR LAB RESULTS (MANUAL) (08/12/2019 2:33 AM EDT) External Estimated GFR 350.76 EXTERNAL LAB 08/12/2019 2:33 AM EDT Narrative EXTERNAL LAB - 08/12/2019 3:13 AM EDT Automated LAB Interface Historical Provider LAB BLOOD ORDERABLES Final R esult Performing Organization Address [facility]/ZIP Co de Phone Number EXTERNAL LAB * OTTR LAB RESULTS (MANUAL) (08/10/2019 4:10 AM EDT) External Estimated GFR 324.78 EXTERNAL LAB 08/10/2019 4:10 AM EDT Narrative EXTERNAL LAB - 08/10/2019 5:18 AM EDT Automated LAB Interface Historical Provider LAB BLOOD ORDERABLES Final R esult Performing Organization Address City/[facility]/ZIP Co de Phone Number EXTERNAL LAB * OTTR LAB RESULTS (MANUAL) (08/10/2019 2:10 AM EDT) Pathologist [facility] External Estimated GFR 337.31 EXTERNAL LAB 08/10/2019 2:10 AM EDT Narrative EXTERNAL LAB - 08/10/2019 3:27 AM EDT Automated LAB Interface Historical Provider LAB BLOOD ORDERABLES Final R esult Performing Organization Address [facility] de Phone Number EXTERNAL LAB * OTTR LAB RESULTS (MANUAL) (08/09/2019 1:59 AM EDT) Pathologist [facility] External Estimated GFR 256.77 EXTERNAL LAB 08/09/2019 1:59 AM EDT Narrative EXTERNAL LAB - 08/09/2019 3:17 AM EDT Automated LAB Interface Historical Provider LAB BLOOD ORDERABLES Final R esult Performing Organization Address [facility] de Phone Number EXTERNAL LAB * OTTR LAB RESULTS (MANUAL) (08/07/2019 2:08 AM EDT) Pathologist [facility] External Estimated GFR 235.22 EXTERNAL LAB 08/07/2019 2:08 AM EDT Narrative EXTERNAL LAB - 08/07/2019 6:05 AM EDT Automated LAB Interface Historical Provider LAB BLOOD ORDERABLES Final R esult Performing Organization Address City/[facility] Co de Phone Number EXTERNAL LAB * OTTR LAB RESULTS (MANUAL) (08/06/2019 9:24 AM EDT) Pathologist [facility] External Estimated GFR 235.22 EXTERNAL LAB 08/06/2019 9:24 AM EDT Narrative EXTERNAL LAB - 08/06/2019 10:54 AM EDT Automated LAB Interface Historical Provider LAB BLOOD ORDERABLES Final R esult Performing Organization Address [facility] Phone Number EXTERNAL LAB * OTTR LAB RESULTS (MANUAL) (08/05/2019 4:52 AM EDT) External Estimated GFR 273.31 EXTERNAL LAB 08/05/2019 4:52 AM EDT Narrative EXTERNAL LAB - 08/05/2019 6:21 AM EDT Automated LAB Interface Historical Provider LAB BLOOD ORDERABLES Final R esult Performing Organization Address [facility] de Phone Number EXTERNAL LAB * OTTR LAB RESULTS (MANUAL) (08/04/2019 1:42 AM EDT) External Estimated GFR 228.77 EXTERNAL LAB 08/04/2019 1:42 AM EDT Narrative EXTERNAL LAB - 08/04/2019 6:13 AM EDT Automated LAB Interface Historical Provider LAB BLOOD ORDERABLES Final R esult Performing Organization Address [facility] de Phone Number EXTERNAL LAB * OTTR LAB RESULTS (MANUAL) (08/03/2019 3:37 AM EDT) External Estimated GFR 256.77 EXTERNAL LAB 08/03/2019 3:37 AM EDT Narrative EXTERNAL LAB - 08/03/2019 4:21 AM EDT Automated LAB Interface us Historical Provider LAB BLOOD ORDERABLES Final R esult Performing Organization Address [facility] de Phone Number EXTERNAL LAB [...] ORDERABLES Final R esult Performing Organization Address City/[facility] Co de Phone Number EXTERNAL LAB * OTTR LAB RESULTS (MANUAL) (07/29/2019 3:39 AM EDT) External Estimated GFR 242.02 EXTERNAL LAB 07/29/2019 3:39 AM EDT Narrative EXTERNAL LAB - 07/29/2019 7:09 AM EDT Automated LAB Interface Historical Provider LAB BLOOD ORDERABLES Final R esult Performing Organization Address [facility] Co de Phone Number EXTERNAL LAB * OTTR LAB RESULTS (MANUAL) (07/28/2019 4:04 AM EDT) External Estimated GFR 242.02 EXTERNAL LAB 07/28/2019 4:04 AM EDT Narrative EXTERNAL LAB - 07/28/2019 4:51 AM EDT Automated LAB Interface Historical Provider LAB BLOOD ORDERABLES Final R esult Performing Organization Address [facility]/ZIP Co de Phone Number EXTERNAL LAB * OTTR LAB RESULTS (MANUAL) (07/26/2019 5:34 AM EDT) External Estimated GFR 242.02 EXTERNAL LAB 07/26/2019 5:34 AM EDT Narrative EXTERNAL LAB - 07/26/2019 6:03 AM EDT Automated LAB Interface Historical Provider LAB BLOOD ORDERABLES Final R esult EXTERNAL LAB * OTTR LAB RESULTS (MANUAL) (07/24/2019 2:17 AM EDT) External Estimated GFR 291.94 EXTERNAL LAB 07/24/2019 2:17 AM EDT Narrative EXTERNAL LAB - 07/24/2019 2:50 AM EDT Automated LAB Interface us Historical Provider LAB BLOOD ORDERABLES Final R esult Performing Organization Address [facility] de Phone Number EXTERNAL LAB * OTTR LAB RESULTS (MANUAL) (07/22/2019 12:33 PM EDT) External Estimated GFR 228.77 EXTERNAL LAB 07/22/2019 12:3 3 PM EDT Narrative EXTERNAL LAB - 07/22/2019 1:26 PM EDT Automated LAB Interface us Historical Provider LAB BLOOD ORDERABLES Final R esult Performing Organization Address [facility] de Phone Number EXTERNAL LAB * OTTR LAB RESULTS (MANUAL) (07/22/2019 2:35 AM EDT) External Estimated GFR 242.02 EXTERNAL LAB 07/22/2019 2:35 AM EDT Narrative EXTERNAL LAB - 07/22/2019 3:30 AM EDT Automated LAB Interface us Historical Provider LAB BLOOD ORDERABLES Final R esult Performing Organization Address [facility] de Phone Number EXTERNAL LAB * OTTR LAB RESULTS (MANUAL) (07/21/2019 5:39 PM EDT) External Estimated GFR 249.19 EXTERNAL LAB 07/21/2019 5:39 PM EDT Narrative EXTERNAL LAB - 07/21/2019 6:05 PM EDT Automated LAB Interface us Historical Provider LAB BLOOD ORDERABLES Final R esult Performing Organization Address [facility] de Phone Number EXTERNAL LAB * OTTR LAB RESULTS (MANUAL) (07/21/2019 3:13 AM EDT) External Estimated GFR 228.77 EXTERNAL LAB 07/21/2019 3:13 AM EDT Narrative EXTERNAL LAB - 07/21/2019 7:02 AM EDT Automated LAB Interface Historical Provider LAB BLOOD ORDERABLES Final R esult Performing Organization Address City/[facility]/ZIP Co de Phone Number EXTERNAL LAB * OTTR LAB RESULTS (MANUAL) (07/20/2019 2:25 PM EDT) External Estimated GFR 222.64 EXTERNAL LAB 07/20/2019 2:25 PM EDT Narrative EXTERNAL LAB - 07/20/2019 4:27 PM EDT Automated LAB Interface Historical Provider LAB BLOOD ORDERABLES Final R esult Performing Organization Address [facility]/ZIP Co de Phone Number EXTERNAL LAB * OTTR LAB RESULTS (MANUAL) (07/20/2019 1:55 AM EDT) External Estimated GFR 211.26 EXTERNAL LAB 07/20/2019 1:55 AM EDT Narrative EXTERNAL LAB - 07/20/2019 2:29 AM EDT Automated LAB Interface Historical Provider LAB BLOOD ORDERABLES Final R esult Performing Organization Address [facility] Co de Phone Number EXTERNAL [...] ORDERABLES Final R esult Performing Organization Address [facility] de Phone Number EXTERNAL LAB * OTTR LAB RESULTS (MANUAL) (07/18/2019 3:30 AM EDT) External Estimated GFR 205.97 EXTERNAL LAB 07/18/2019 3:30 AM EDT Narrative EXTERNAL LAB - 07/18/2019 4:07 AM EDT Automated LAB Interface Historical Provider LAB BLOOD ORDERABLES Final R esult Performing Organization Address [facility] de Phone Number EXTERNAL LAB * OTTR LAB RESULTS (MANUAL) (07/17/2019 3:33 AM EDT) External Estimated GFR 222.64 EXTERNAL LAB 07/17/2019 3:33 AM EDT Narrative EXTERNAL LAB - 07/17/2019 6:36 AM EDT Automated LAB Interface Historical Provider LAB BLOOD ORDERABLES Final R esult Performing Organization Address [facility] de Phone Number EXTERNAL LAB * OTTR LAB RESULTS (MANUAL) (07/16/2019 1:11 AM EDT) External Estimated GFR 200.92 EXTERNAL LAB 07/16/2019 1:11 AM EDT Narrative EXTERNAL LAB - 07/16/2019 2:24 AM EDT Automated LAB Interface us Historical Provider LAB BLOOD ORDERABLES Final R esult Performing Organization Address [facility] Co de Phone Number EXTERNAL [...] ORDERABLES Final R esult Performing Organization Address [facility]/ZIP Co de Phone Number EXTERNAL LAB * OTTR LAB RESULTS (MANUAL) (07/13/2019 4:51 AM EDT) External Estimated GFR 273.31 EXTERNAL LAB 07/13/2019 4:51 AM EDT Narrative EXTERNAL LAB - 07/13/2019 6:25 AM EDT Automated LAB Interface us Historical Provider LAB BLOOD ORDERABLES Final R esult Performing Organization Address [facility]/ZIP Co de Phone Number EXTERNAL LAB * [...] ORDERABLES Final R esult Performing Organization Address [facility] de Phone Number EXTERNAL LAB * OTTR LAB RESULTS (MANUAL) (07/11/2019 8:53 PM EDT) External Estimated GFR 205.97 EXTERNAL LAB 07/11/2019 8:53 PM EDT Narrative EXTERNAL LAB - 07/11/2019 9:33 PM EDT Automated LAB Interface Historical Provider LAB BLOOD ORDERABLES Final R esult Performing Organization Address [facility] de Phone Number EXTERNAL LAB * OTTR LAB RESULTS (MANUAL) (07/11/2019 4:30 AM EDT) External Estimated GFR 235.22 EXTERNAL LAB 07/11/2019 4:30 AM EDT Narrative EXTERNAL LAB - 07/11/2019 6:41 AM EDT Automated LAB Interface Historical Provider LAB BLOOD ORDERABLES Final R esult Performing Organization Address [facility] de Phone Number EXTERNAL LAB * OTTR LAB RESULTS (MANUAL) (07/10/2019 4:26 PM EDT) External Estimated GFR 211.26 EXTERNAL LAB 07/10/2019 4:26 PM EDT Narrative EXTERNAL LAB - 07/10/2019 4:57 PM EDT Automated LAB Interface us Historical Provider LAB BLOOD ORDERABLES Final R esult Performing Organization Address [facility] de Phone Number EXTERNAL LAB * OTTR LAB RESULTS (MANUAL) (07/10/2019 4:14 AM EDT) External Estimated GFR 264.80 EXTERNAL LAB 07/10/2019 4:14 AM EDT Narrative EXTERNAL LAB - 07/10/2019 5:26 AM EDT Automated LAB Interface Historical Provider LAB BLOOD ORDERABLES Final R esult Performing Organization Address [facility] de Phone Number EXTERNAL LAB * OTTR LAB RESULTS (MANUAL) (07/09/2019 6:57 PM EDT) External Estimated GFR 211.26 EXTERNAL LAB 07/09/2019 6:57 PM EDT Narrative EXTERNAL LAB - 07/09/2019 7:31 PM EDT Automated LAB Interface us Historical Provider LAB BLOOD ORDERABLES Final R esult Performing Organization Address City/[facility] de Phone Number EXTERNAL LAB * OTTR LAB RESULTS (MANUAL) (07/09/2019 3:30 PM EDT) External Estimated GFR 222.64 EXTERNAL LAB 07/09/2019 3:30 PM EDT Narrative EXTERNAL LAB - 07/09/2019 4:10 PM EDT Automated LAB Interface Historical Provider LAB BLOOD ORDERABLES Final R esult Performing Organization Address [facility] de Phone Number EXTERNAL LAB * OTTR LAB RESULTS (MANUAL) (07/09/2019 4:06 AM EDT) External Estimated GFR 228.77 EXTERNAL LAB 07/09/2019 4:06 AM EDT Narrative EXTERNAL LAB - 07/09/2019 4:46 AM EDT Automated LAB Interface Historical Provider LAB BLOOD ORDERABLES Final R esult Performing Organization Address [facility] Co de Phone Number EXTERNAL LAB * OTTR LAB RESULTS (MANUAL) (07/08/2019 4:11 PM EDT) External Estimated GFR 228.77 EXTERNAL LAB 07/08/2019 4:11 PM EDT Narrative EXTERNAL LAB - 07/08/2019 4:39 PM EDT Automated LAB Interface us Historical Provider LAB BLOOD ORDERABLES Final R esult Performing Organization Address [facility]/ZIP Co de Phone Number EXTERNAL LAB * OTTR LAB RESULTS (MANUAL) (07/08/2019 4:11 AM EDT) External Estimated GFR 273.31 EXTERNAL LAB 07/08/2019 4:11 AM EDT Narrative EXTERNAL LAB - 07/08/2019 5:04 AM EDT Automated LAB Interface Historical Provider LAB BLOOD ORDERABLES Final R esult Performing Organization Address [facility] de Phone Number EXTERNAL LAB * OTTR LAB RESULTS (MANUAL) (07/07/2019 3:25 PM EDT) Pathologist [facility] External Estimated GFR 324.78 EXTERNAL LAB 07/07/2019 3:25 PM EDT Narrative EXTERNAL LAB - 07/07/2019 4:30 PM EDT Automated LAB Interface Historical Provider LAB BLOOD ORDERABLES Final R esult Performing Organization Address [facility] de Phone Number EXTERNAL LAB * OTTR LAB RESULTS (MANUAL) (07/07/2019 2:04 AM EDT) Pathologist [facility] External Estimated GFR 273.31 EXTERNAL LAB 07/07/2019 2:04 AM EDT Narrative EXTERNAL LAB - 07/07/2019 2:38 AM EDT Automated LAB Interface Historical Provider LAB BLOOD ORDERABLES Final R esult Performing Organization Address [facility] de Phone Number EXTERNAL LAB * OTTR LAB RESULTS (MANUAL) (07/06/2019 9:56 PM EDT) External Estimated GFR 302.17 EXTERNAL LAB 07/06/2019 9:56 PM EDT Narrative EXTERNAL LAB - 07/06/2019 10:35 PM EDT Automated LAB Interface Historical Provider LAB BLOOD ORDERABLES Final R esult Performing Organization Address [facility] Co de Phone Number EXTERNAL LAB * OTTR LAB RESULTS (MANUAL) (07/06/2019 2:08 AM EDT) External Estimated GFR 302.17 EXTERNAL LAB 07/06/2019 2:08 AM EDT Narrative EXTERNAL LAB - 07/06/2019 7:31 AM EDT Automated LAB Interface Historical Provider LAB BLOOD ORDERABLES Final R esult Performing Organization Address City/[facility] de Phone Number EXTERNAL LAB * OTTR LAB RESULTS (MANUAL) (07/05/2019 8:40 PM EDT) External Estimated GFR 324.78 EXTERNAL LAB 07/05/2019 8:40 PM EDT Narrative EXTERNAL LAB - 07/05/2019 9:15 PM EDT Automated LAB Interface Historical Provider LAB BLOOD ORDERABLES Final R esult Performing Organization Address [facility] de Phone Number EXTERNAL LAB * OTTR LAB RESULTS (MANUAL) (07/05/2019 12:25 PM EDT) External Estimated GFR 264.80 EXTERNAL LAB 07/05/2019 12:2 5 PM EDT Narrative EXTERNAL LAB - 07/05/2019 1:07 PM EDT Automated LAB Interface Historical Provider LAB BLOOD ORDERABLES Final R esult Performing Organization Address [facility] de Phone Number EXTERNAL LAB * OTTR LAB RESULTS (MANUAL) (07/05/2019 2:44 AM EDT) External Estimated GFR 337.31 EXTERNAL LAB 07/05/2019 2:44 AM EDT Narrative EXTERNAL LAB - 07/05/2019 3:33 AM EDT Automated LAB Interface Historical Provider LAB BLOOD ORDERABLES Final R esult Performing Organization Address City/[facility]/ZIP Co de Phone Number EXTERNAL LAB * OTTR LAB RESULTS (MANUAL) (07/04/2019 4:08 PM EDT) External Estimated GFR 324.78 EXTERNAL LAB 07/04/2019 4:08 PM EDT Narrative EXTERNAL LAB - 07/04/2019 4:41 PM EDT Automated LAB Interface us Historical Provider LAB BLOOD ORDERABLES Final R esult Performing Organization Address [facility] de Phone Number EXTERNAL LAB * OTTR LAB RESULTS (MANUAL) (07/04/2019 3:07 AM EDT) Pathologist [facility] External Estimated GFR 313.10 EXTERNAL LAB 07/04/2019 3:07 AM EDT Narrative EXTERNAL LAB - 07/04/2019 6:46 AM EDT Automated LAB Interface Historical Provider LAB BLOOD ORDERABLES Final R esult Performing Organization Address [facility] de Phone Number EXTERNAL LAB * OTTR LAB RESULTS (MANUAL) (07/03/2019 11:53 PM EDT) Pathologist [facility] External Estimated GFR 302.17 EXTERNAL LAB 07/03/2019 11:5 3 PM EDT Narrative EXTERNAL LAB - 07/04/2019 12:30 AM EDT Automated LAB Interface Historical Provider LAB BLOOD ORDERABLES Final R esult Performing Organization Address [facility] de Phone Number EXTERNAL LAB * OTTR LAB RESULTS (MANUAL) (07/03/2019 4:42 PM EDT) Pathologist [facility] External Estimated GFR 324.78 EXTERNAL LAB 07/03/2019 4:42 PM EDT Narrative EXTERNAL LAB - 07/03/2019 5:19 PM EDT Automated LAB Interface Historical Provider LAB BLOOD ORDERABLES Final R esult Performing Organization Address [facility] de Phone Number EXTERNAL LAB * OTTR LAB RESULTS (MANUAL) (07/03/2019 2:17 AM EDT) Pathologist [facility] External Estimated GFR 482.47 EXTERNAL LAB 07/03/2019 2:17 AM EDT Narrative EXTERNAL LAB - 07/03/2019 3:02 AM EDT Automated LAB Interface Historical Provider LAB BLOOD ORDERABLES Final R esult Performing Organization Address [facility] Co de Phone Number EXTERNAL LAB * OTTR LAB RESULTS (MANUAL) (07/02/2019 2:31 AM EDT) External Estimated GFR 249.19 EXTERNAL LAB 07/02/2019 2:31 AM EDT Narrative EXTERNAL LAB - 07/02/2019 4:08 AM EDT Automated LAB Interface us Historical Provider LAB BLOOD ORDERABLES Final R esult Performing Organization Address City/[facility]/ZIP Co de Phone Number EXTERNAL LAB * OTTR LAB RESULTS (MANUAL) (07/01/2019 3:10 PM EDT) External Estimated GFR 291.94 EXTERNAL LAB 07/01/2019 3:10 PM EDT Narrative EXTERNAL LAB - 07/01/2019 3:47 PM EDT Automated LAB Interface us Historical Provider LAB BLOOD ORDERABLES Final R esult Performing Organization Address [facility] Co de Phone Number EXTERNAL LAB * OTTR LAB RESULTS (MANUAL) (07/01/2019 1:57 AM EDT) Pathologist [facility] External Estimated GFR 200.92 EXTERNAL LAB 07/01/2019 1:57 AM EDT Narrative EXTERNAL LAB - 07/01/2019 3:06 AM EDT Automated LAB Interface us Historical Provider LAB BLOOD ORDERABLES Final R esult Performing Organization Address [facility] Co de Phone Number EXTERNAL LAB * OTTR LAB RESULTS (MANUAL) (06/30/2019 3:28 PM EDT) External Estimated GFR 249.19 EXTERNAL LAB 06/30/2019 3:28 PM EDT Narrative EXTERNAL LAB - 06/30/2019 4:03 PM EDT Automated LAB Interface us Historical Provider LAB BLOOD ORDERABLES Final R esult EXTERNAL LAB * OTTR LAB RESULTS (MANUAL) (06/30/2019 2:34 AM EDT) Pathologist [facility] External Estimated GFR 302.17 EXTERNAL LAB 06/30/2019 2:34 AM EDT Narrative EXTERNAL LAB - 06/30/2019 3:20 AM EDT Automated LAB Interface Historical Provider LAB BLOOD ORDERABLES Final R esult Performing Organization Address [facility] de Phone Number EXTERNAL LAB * OTTR LAB RESULTS (MANUAL) (06/29/2019 1:34 PM EDT) Pathologist [facility] External Estimated GFR 256.77 EXTERNAL LAB 06/29/2019 1:34 PM EDT Narrative EXTERNAL LAB - 06/29/2019 2:50 PM EDT Automated LAB Interface Historical Provider LAB BLOOD ORDERABLES Final R esult Performing Organization Address [facility] de Phone Number EXTERNAL LAB * OTTR LAB RESULTS (MANUAL) (06/29/2019 3:33 AM EDT) Pathologist [facility] External Estimated GFR 256.77 EXTERNAL LAB 06/29/2019 3:33 AM EDT Narrative EXTERNAL LAB - 06/29/2019 4:27 AM EDT Automated LAB Interface [facility] Provider LAB BLOOD ORDERABLES Final R esult Performing Organization Address [facility] de Phone Number EXTERNAL LAB * OTTR LAB RESULTS (MANUAL) (06/28/2019 4:27 PM EDT) Pathologist [facility] External Estimated GFR 235.22 EXTERNAL LAB 06/28/2019 4:27 PM EDT Narrative EXTERNAL LAB - 06/28/2019 4:58 PM EDT Automated LAB Interface Historical Provider LAB BLOOD ORDERABLES Final R esult Performing Organization Address [facility] Co de Phone Number EXTERNAL LAB * OTTR LAB RESULTS (MANUAL) (06/28/2019 3:42 AM EDT) Pathologist [facility] External Estimated GFR 273.31 EXTERNAL LAB 06/28/2019 3:42 AM EDT Narrative EXTERNAL LAB - 06/28/2019 6:32 AM EDT Automated LAB Interface Historical Provider LAB BLOOD ORDERABLES Final R esult Performing Organization Address [facility] de Phone Number EXTERNAL LAB * OTTR LAB RESULTS (MANUAL) (06/27/2019 4:13 PM EDT) External Estimated GFR 222.64 EXTERNAL LAB 06/27/2019 4:13 PM EDT Narrative EXTERNAL LAB - 06/27/2019 4:50 PM EDT Automated LAB Interface us Historical Provider LAB BLOOD ORDERABLES Final R esult Performing Organization Address [facility] de Phone Number EXTERNAL LAB * OTTR LAB RESULTS (MANUAL) (06/27/2019 9:47 AM EDT) External Estimated GFR 216.81 EXTERNAL LAB 06/27/2019 9:47 AM EDT Narrative EXTERNAL LAB - 06/27/2019 10:25 AM EDT Automated LAB Interface us Historical Provider LAB BLOOD ORDERABLES Final R esult Performing Organization Address [facility] de Phone Number EXTERNAL LAB * OTTR LAB RESULTS (MANUAL) (06/27/2019 4:04 AM EDT) External Estimated GFR 222.64 EXTERNAL LAB 06/27/2019 4:04 AM EDT Narrative EXTERNAL LAB - 06/27/2019 4:55 AM EDT Automated LAB Interface Historical Provider LAB BLOOD ORDERABLES Final R esult Performing Organization Address City/[facility]/ZIP Co de Phone Number EXTERNAL LAB * OTTR LAB RESULTS (MANUAL) (06/26/2019 5:02 PM EDT) External Estimated GFR 211.26 EXTERNAL LAB 06/26/2019 5:02 PM EDT Narrative EXTERNAL LAB - 06/26/2019 5:45 PM EDT Automated LAB Interface Historical Provider LAB BLOOD ORDERABLES Final R esult Performing Organization Address [place]/[facility] de Phone Number EXTERNAL LAB * OTTR LAB RESULTS (MANUAL) (06/26/2019 11:00 AM EDT) External Estimated GFR 211.26 EXTERNAL LAB 06/26/2019 11:0 0 AM EDT Narrative EXTERNAL LAB - 06/26/2019 12:05 PM EDT Automated LAB Interface Historical Provider LAB BLOOD ORDERABLES Final R esult Performing Organization Address [facility] de Phone Number EXTERNAL LAB * OTTR LAB RESULTS (MANUAL) (06/26/2019 3:58 AM EDT) External Estimated GFR 228.77 EXTERNAL LAB 06/26/2019 3:58 AM EDT Narrative EXTERNAL LAB - 06/26/2019 5:44 AM EDT Automated LAB Interface Historical Provider LAB BLOOD ORDERABLES Final R esult Performing Organization Address [facility] de Phone Number EXTERNAL LAB * OTTR LAB RESULTS (MANUAL) (06/25/2019 3:46 PM EDT) External Estimated GFR 222.64 EXTERNAL LAB 06/25/2019 3:46 PM EDT Narrative EXTERNAL LAB - 06/25/2019 4:23 PM EDT Automated LAB Interface Historical Provider LAB BLOOD ORDERABLES Final R esult Performing Organization Address [facility] de Phone Number EXTERNAL LAB * OTTR LAB RESULTS (MANUAL) (06/25/2019 4:04 AM EDT) External Estimated GFR 235.22 EXTERNAL LAB 06/25/2019 4:04 AM EDT Narrative EXTERNAL LAB - 06/25/2019 4:57 AM EDT Automated LAB Interface Historical Provider LAB BLOOD ORDERABLES Final R esult Performing Organization Address [facility]/ZIP Co de Phone Number EXTERNAL LAB * OTTR LAB RESULTS (MANUAL) (06/23/2019 11:46 AM EDT) External Estimated GFR 133.45 EXTERNAL LAB 06/23/2019 11:4 6 AM EDT Narrative EXTERNAL LAB - 06/23/2019 1:33 PM EDT Automated LAB Interface us Historical Provider LAB BLOOD ORDERABLES Final R esult Performing Organization Address [facility] de Phone Number EXTERNAL LAB * OTTR LAB RESULTS (MANUAL) (06/23/2019 2:22 AM EDT) External Estimated GFR 143.28 EXTERNAL LAB 06/23/2019 2:22 AM EDT Narrative EXTERNAL LAB - 06/23/2019 6:36 AM EDT Automated LAB Interface us Historical Provider LAB BLOOD ORDERABLES Final R esult Performing Organization Address [facility] de Phone Number EXTERNAL LAB * OTTR LAB RESULTS (MANUAL) (06/21/2019 2:39 AM EDT) External Estimated GFR 160.82 EXTERNAL LAB 06/21/2019 2:39 AM EDT Narrative EXTERNAL LAB - 06/21/2019 3:27 AM EDT Automated LAB Interface us Historical Provider LAB BLOOD ORDERABLES Final R esult Performing Organization Address [facility] de Phone Number EXTERNAL LAB * OTTR LAB RESULTS (MANUAL) (06/20/2019 2:34 PM EDT) External Estimated GFR 154.55 EXTERNAL LAB 06/20/2019 2:34 PM EDT Narrative EXTERNAL LAB - 06/20/2019 3:11 PM EDT Automated LAB Interface us Historical Provider LAB BLOOD ORDERABLES Final R esult Performing Organization Address [facility] Co de Phone Number EXTERNAL [...] ORDERABLES Final R esult Performing Organization Address City/[facility]/ZIP Co de Phone Number EXTERNAL LAB * OTTR LAB RESULTS (MANUAL) (06/19/2019 9:09 PM EDT) Pathologist [facility] External Estimated GFR 191.49 EXTERNAL LAB 06/19/2019 9:09 PM EDT Narrative EXTERNAL LAB - 06/19/2019 11:38 PM EDT Automated LAB Interface Historical Provider LAB BLOOD ORDERABLES Final R esult Performing Organization Address [facility] Co de Phone Number EXTERNAL [...] ORDERABLES Final R esult Performing Organization Address [facility] de Phone Number EXTERNAL LAB * OTTR LAB RESULTS (MANUAL) (06/18/2019 3:40 PM EDT) External Estimated GFR 104.23 EXTERNAL LAB 06/18/2019 3:40 PM EDT Narrative EXTERNAL LAB - 06/18/2019 5:38 PM EDT Automated LAB Interface Historical Provider LAB BLOOD ORDERABLES Final R esult Performing Organization Address [facility] de Phone Number EXTERNAL LAB * OTTR LAB RESULTS (MANUAL) (06/18/2019 4:36 AM EDT) External Estimated GFR 55.64 EXTERNAL LAB 06/18/2019 4:36 AM EDT Narrative EXTERNAL LAB - 06/24/2019 5:14 PM EDT Automated LAB Interface Historical Provider LAB BLOOD ORDERABLES Final R esult Performing Organization Address [facility] de Phone Number EXTERNAL LAB * OTTR LAB RESULTS (MANUAL) (06/17/2019 1:44 AM EDT) External Estimated GFR 117.17 EXTERNAL LAB 06/17/2019 1:44 AM EDT Narrative EXTERNAL LAB - 06/17/2019 6:27 AM EDT Automated LAB Interface Historical Provider LAB BLOOD ORDERABLES Final R esult Performing Organization Address [place]/[facility]/ZIP Co de Phone Number EXTERNAL LAB * OTTR LAB RESULTS (MANUAL) (06/16/2019 5:54 PM EDT) External Estimated GFR 122.82 EXTERNAL LAB 06/16/2019 5:54 PM EDT Narrative EXTERNAL LAB - 06/16/2019 6:31 PM EDT Automated LAB Interface Historical Provider LAB BLOOD ORDERABLES Final R esult Performing Organization Address [facility] de Phone Number EXTERNAL LAB * OTTR LAB RESULTS (MANUAL) (06/16/2019 11:39 AM EDT) External Estimated GFR 131.19 EXTERNAL LAB 06/16/2019 11:3 9 AM EDT Narrative EXTERNAL LAB - 06/16/2019 12:17 PM EDT Automated LAB Interface Historical Provider LAB BLOOD ORDERABLES Final R esult Performing Organization Address [facility] de Phone Number EXTERNAL LAB * OTTR LAB RESULTS (MANUAL) (06/15/2019 11:52 AM EDT) External Estimated GFR 131.19 EXTERNAL LAB 06/15/2019 11:5 2 AM EDT Narrative EXTERNAL LAB - 06/15/2019 12:34 PM EDT Automated LAB Interface Historical Provider LAB BLOOD ORDERABLES Final R esult Performing Organization Address [facility] de Phone Number EXTERNAL LAB * OTTR LAB RESULTS (MANUAL) (06/15/2019 3:57 AM EDT) External Estimated GFR 138.20 EXTERNAL LAB 06/15/2019 3:57 AM EDT Narrative EXTERNAL LAB - 06/15/2019 6:04 AM EDT Automated LAB Interface Historical Provider LAB BLOOD ORDERABLES Final R esult Performing Organization Address [facility] de Phone Number EXTERNAL LAB * OTTR LAB RESULTS (MANUAL) (06/15/2019 12:00 AM EDT) External Estimated GFR 138.20 EXTERNAL LAB 06/15/2019 Narrative EXTERNAL LAB - 06/15/2019 12:47 AM EDT Automated LAB Interface Historical Provider LAB BLOOD ORDERABLES Final R esult Performing Organization Address [place]/[facility] de Phone Number EXTERNAL LAB * OTTR LAB RESULTS (MANUAL) (06/14/2019 3:50 PM EDT) External Estimated GFR 122.82 EXTERNAL LAB 06/14/2019 3:50 PM EDT Narrative EXTERNAL LAB - 06/14/2019 4:19 PM EDT Automated LAB Interface us Historical Provider LAB BLOOD ORDERABLES Final R esult Performing Organization Address [facility] de Phone Number EXTERNAL LAB * OTTR LAB RESULTS (MANUAL) (06/14/2019 3:51 AM EDT) External Estimated GFR 126.88 EXTERNAL LAB 06/14/2019 3:51 AM EDT Narrative EXTERNAL LAB - 06/14/2019 4:53 AM EDT Automated LAB Interface us Historical Provider LAB BLOOD ORDERABLES Final R esult Performing Organization Address [facility] de Phone Number EXTERNAL LAB * OTTR LAB RESULTS (MANUAL) (06/13/2019 10:02 PM EDT) External Estimated GFR 118.99 EXTERNAL LAB 06/13/2019 10:0 2 PM EDT Narrative EXTERNAL LAB - 06/13/2019 10:47 PM EDT Automated LAB Interface us Historical Provider LAB BLOOD ORDERABLES Final R esult Performing Organization Address [facility] de Phone Number EXTERNAL LAB * OTTR LAB RESULTS (MANUAL) (06/13/2019 6:29 PM EDT) External Estimated GFR 117.17 EXTERNAL LAB 06/13/2019 6:29 PM EDT Narrative EXTERNAL LAB - 06/13/2019 7:10 PM EDT Automated LAB Interface us Historical Provider LAB BLOOD ORDERABLES Final R esult Performing Organization Address [facility] de Phone Number EXTERNAL LAB * OTTR LAB RESULTS (MANUAL) (06/13/2019 11:44 AM EDT) External Estimated GFR 107.21 EXTERNAL LAB 06/13/2019 11:4 4 AM EDT Narrative EXTERNAL LAB - 06/13/2019 12:32 PM EDT Automated LAB Interface us Historical Provider LAB BLOOD ORDERABLES Final R esult Performing Organization Address [place]/[facility]/ZIP Co de Phone Number EXTERNAL LAB * OTTR LAB RESULTS (MANUAL) (06/13/2019 2:14 AM EDT) External Estimated GFR 115.39 EXTERNAL LAB 06/13/2019 2:14 AM EDT Narrative EXTERNAL LAB - 06/13/2019 7:22 AM EDT Automated LAB Interface Historical Provider LAB BLOOD ORDERABLES Final R esult Performing Organization Address [facility]/ZIP Co de Phone Number EXTERNAL LAB * OTTR LAB RESULTS (MANUAL) (06/12/2019 6:45 PM EDT) External Estimated GFR 145.95 EXTERNAL LAB 06/12/2019 6:45 PM EDT Narrative EXTERNAL LAB - 06/12/2019 7:17 PM EDT Automated LAB Interface Historical Provider LAB BLOOD ORDERABLES Final R esult Performing Organization Address [facility] Co de Phone Number EXTERNAL [...] ORDERABLES Final R esult Performing Organization Address [facility] de Phone Number EXTERNAL LAB * OTTR LAB RESULTS (MANUAL) (06/11/2019 2:56 AM EDT) External Estimated GFR 118.99 EXTERNAL LAB 06/11/2019 2:56 AM EDT Narrative EXTERNAL LAB - 06/11/2019 4:06 AM EDT Automated LAB Interface us Historical Provider LAB BLOOD ORDERABLES Final R esult Performing Organization Address [facility] de Phone Number EXTERNAL LAB * OTTR LAB RESULTS (MANUAL) (06/10/2019 2:52 AM EDT) External Estimated GFR 115.39 EXTERNAL LAB 06/10/2019 2:52 AM EDT Narrative EXTERNAL LAB - 06/10/2019 6:50 AM EDT Automated LAB Interface us Historical Provider LAB BLOOD ORDERABLES Final R esult Performing Organization Address [facility] de Phone Number EXTERNAL LAB * OTTR LAB RESULTS (MANUAL) (06/09/2019 12:12 PM EDT) External Estimated GFR 93.73 EXTERNAL LAB 06/09/2019 12:1 2 PM EDT Narrative EXTERNAL LAB - 06/09/2019 1:36 PM EDT Automated LAB Interface us Historical Provider LAB BLOOD ORDERABLES Final R esult Performing Organization Address [facility] Co de Phone Number EXTERNAL LAB * OTTR LAB RESULTS (MANUAL) (06/09/2019 2:19 AM EDT) External Estimated GFR 98.72 EXTERNAL LAB 06/09/2019 2:19 AM EDT Narrative EXTERNAL LAB - 06/09/2019 6:19 AM EDT Automated LAB Interface us Historical Provider LAB BLOOD ORDERABLES Final R esult Performing Organization Address City/[facility]/ZIP Co de Phone Number EXTERNAL LAB * OTTR LAB RESULTS (MANUAL) (06/08/2019 3:20 PM EDT) External Estimated GFR 102.80 EXTERNAL LAB 06/08/2019 3:20 PM EDT Narrative EXTERNAL LAB - 06/08/2019 4:06 PM EDT Automated LAB Interface us Historical Provider LAB BLOOD ORDERABLES Final R esult Performing Organization Address [facility] Co de Phone Number EXTERNAL LAB * OTTR LAB RESULTS (MANUAL) (06/08/2019 12:35 PM EDT) External Estimated GFR 105.70 EXTERNAL LAB 06/08/2019 12:3 5 PM EDT Narrative EXTERNAL LAB - 06/08/2019 1:51 PM EDT Automated LAB Interface us Historical Provider LAB BLOOD ORDERABLES Final R esult Performing Organization Address [facility] Co de Phone Number EXTERNAL LAB * OTTR LAB RESULTS (MANUAL) (06/08/2019 10:28 AM EDT) External Estimated GFR 122.82 EXTERNAL LAB 06/08/2019 10:2 8 AM EDT Narrative EXTERNAL LAB - 06/08/2019 2:31 PM EDT Automated LAB Interface us Historical Provider LAB BLOOD ORDERABLES Final R esult Performing Organization Address [facility]/ZIP Co de Phone Number EXTERNAL LAB * OTTR LAB RESULTS (MANUAL) (06/08/2019 8:04 AM EDT) External Estimated GFR 93.73 EXTERNAL LAB 06/08/2019 8:04 AM EDT Narrative EXTERNAL LAB - 06/08/2019 8:51 AM EDT Automated LAB Interface us Historical Provider LAB BLOOD ORDERABLES Final R esult Performing Organization Address [facility] de Phone Number EXTERNAL LAB * OTTR LAB RESULTS (MANUAL) (06/08/2019 6:23 AM EDT) External Estimated GFR 92.56 EXTERNAL LAB 06/08/2019 6:23 AM EDT Narrative EXTERNAL LAB - 06/08/2019 7:15 AM EDT Automated LAB Interface Historical Provider LAB BLOOD ORDERABLES Final R esult Performing Organization Address [facility] de Phone Number EXTERNAL LAB * OTTR LAB RESULTS (MANUAL) (06/08/2019 2:56 AM EDT) External Estimated GFR 104.23 EXTERNAL LAB 06/08/2019 2:56 AM EDT Narrative EXTERNAL LAB - 06/08/2019 3:42 AM EDT Automated LAB Interface Historical Provider LAB BLOOD ORDERABLES Final R esult Performing Organization Address [facility] de Phone Number EXTERNAL LAB * OTTR LAB RESULTS (MANUAL) (06/07/2019 10:55 PM EDT) Pathologist [facility] External Estimated GFR 97.43 EXTERNAL LAB 06/07/2019 10:5 5 PM EDT Narrative EXTERNAL LAB - 06/08/2019 12:35 AM EDT Automated LAB Interface Historical Provider LAB BLOOD ORDERABLES Final R esult Performing Organization Address [facility] de Phone Number EXTERNAL LAB * OTTR LAB RESULTS (MANUAL) (06/07/2019 5:25 PM EDT) External Estimated GFR 76.92 EXTERNAL LAB 06/07/2019 5:25 PM EDT Narrative EXTERNAL LAB - 06/07/2019 6:51 PM EDT Automated LAB Interface Historical Provider LAB BLOOD ORDERABLES Final R esult Performing Organization Address [facility] Co de Phone Number EXTERNAL LAB * OTTR LAB RESULTS (MANUAL) (06/07/2019 12:22 PM EDT) External Estimated GFR 102.80 EXTERNAL LAB 06/07/2019 12:2 2 PM EDT Narrative EXTERNAL LAB - 06/07/2019 2:13 PM EDT Automated LAB Interface Historical Provider LAB BLOOD ORDERABLES Final R esult Performing Organization Address [facility] de Phone Number EXTERNAL LAB * OTTR LAB RESULTS (MANUAL) (06/07/2019 4:53 AM EDT) External Estimated GFR 96.17 EXTERNAL LAB 06/07/2019 4:53 AM EDT Narrative EXTERNAL LAB - 06/07/2019 5:48 AM EDT Automated LAB Interface Historical Provider LAB BLOOD ORDERABLES Final R esult Performing Organization Address [facility] de Phone Number EXTERNAL LAB * OTTR LAB RESULTS (MANUAL) (06/07/2019 3:04 AM EDT) External Estimated GFR 167.59 EXTERNAL LAB 06/07/2019 3:04 AM EDT Narrative EXTERNAL LAB - 06/07/2019 6:39 AM EDT Automated LAB Interface Historical Provider LAB BLOOD ORDERABLES Final R esult Performing Organization Address [facility] de Phone Number EXTERNAL LAB * OTTR LAB RESULTS (MANUAL) (06/06/2019 2:22 PM EDT) External Estimated GFR 88.12 EXTERNAL LAB 06/06/2019 2:22 PM EDT Narrative EXTERNAL LAB - 06/06/2019 3:13 PM EDT Automated LAB Interface Historical Provider LAB BLOOD ORDERABLES Final R esult Performing Organization Address [facility] Co de Phone Number EXTERNAL LAB * OTTR LAB RESULTS (MANUAL) (06/06/2019 1:30 AM EDT) External Estimated GFR 110.35 EXTERNAL LAB 06/06/2019 1:30 AM EDT Narrative EXTERNAL LAB - 06/06/2019 2:16 AM EDT Automated LAB Interface Historical Provider LAB BLOOD ORDERABLES Final R esult Performing Organization Address [facility] de Phone Number EXTERNAL LAB * OTTR LAB RESULTS (MANUAL) (06/05/2019 10:12 AM EDT) External Estimated GFR 100.05 EXTERNAL LAB 06/05/2019 10:1 2 AM EDT Narrative EXTERNAL LAB - 06/05/2019 11:27 AM EDT Automated LAB Interface Historical Provider LAB BLOOD ORDERABLES Final R esult Performing Organization Address [facility] de Phone Number EXTERNAL LAB * OTTR LAB RESULTS (MANUAL) (05/17/2019 2:05 AM EDT) Pathologist [facility] External Estimated GFR 105.70 EXTERNAL LAB 05/17/2019 2:05 AM EDT Narrative EXTERNAL LAB - 05/17/2019 3:01 AM EDT Automated LAB Interface Historical Provider LAB BLOOD ORDERABLES Final R esult Performing Organization Address [facility] de Phone Number EXTERNAL LAB * OTTR LAB RESULTS (MANUAL) (05/16/2019 9:46 AM EDT) External Estimated GFR 80.35 EXTERNAL LAB 05/16/2019 9:46 AM EDT Narrative EXTERNAL LAB - 05/16/2019 10:25 AM EDT Automated LAB Interface Historical Provider LAB BLOOD ORDERABLES Final R esult Performing Organization Address [facility] Co de Phone Number EXTERNAL [...] documented as of this encounter Care Teams Roller Picker Relationship Specialty Start Date End Date Herberth Perez MD [address] [place] [address] [place] [address] PCP - General 07/17/20 Katrin Oviedo, RN [facility] [address] [place] [address] VAD Coordinator Cardiology 08/06/20 10/21/24 Zaida Lafleur APRN [address] [place] [address] Nurse Practitioner Advanced Heart Failure and Transplant Cardiology 08/06/20 06/11/23 Gracia Petersen APRN [address] [place] [address] Nurse Practitioner Internal Medicine 08/06/20 Yunior Solorzano MD [address] [place] [address] Consulting Physician Gastroenterology 07/18/22 Ross Baez DO [address] [address] Surgeon Cardiothoracic Surgery 07/18/22 Edith Aleman, MATERNAL FETAL PHYSICIAN None VAD Coordinator 10/14/24 documented as of this encounter
--- OUTSIDE RECORDS SUMMARY | 2025-03-03 10:21 | XMS_ITS | Encounter Summary ---
Author Organization [employer] ([place], [place], [place], [place], [place]) Address [address] [place] [address] Care Team Providers Care Gas Controller Name Role Phone Unavailable Primary Care Provider Unavailabl e Encounter Details Date Type Department Care Team (Late st Contact Info) Description 2019 Transcribed Document [facility] [place] [facility] [place] [address] ProviderMg MD [facility] [place] [address] Social History Tobacco Use Types Packs/Day Years Used Date Smoking Tobacco: Never Assessed Sex and Gender Information Value Date Recorded Sex Assigned at Not on file Legal Sex Male 1:09 PM CDT Gender Identity Not on file Sexual Orientation Not on file documented as of this encounter Miscellaneous Notes * Cerner Conversion Note - Mg ProviderMD - 2019 12:15 PM HABITAT MANAGEMENT COORDINATOR UM Authorization Entered On: 2019 12:16 EST Performed On: 2019 12:15 EST by Trudi Gaona Rn-Utilization Review Primary Insurance Authorization Authorization and Policy Numbers : Insurance 1 Health Plan: [facility] Policy Number: Authorization Number: Insurance Primary Name : [employer] Administators [id number] Authorization Status-Primary : Admit approved Authorization Number-Primary : [id number] Number of Days Authorized-Primary : 6 Day(s) Authorized Service Begin Date-Primary : 05/03/2019 EST Authorized Service End Date-Primary : 05/09/2019 EST Authorization Comments-Primary : Continued stay clinicals faxed via [employer] Historical Authorization Comments-Primary : Comment 1: [employer] approved per Katrin for total of 7 days --- nrd 05/09 (CHARLA BARRAZA RN-Utilization Review 05/08/2019 15:22) Comment 2: Clinicals for CS faxed via [employer] (THORNTON, MARLENE, Rn-Utilization Review 05/08/2019 14:43) Comment 3: [place] approved per Katrin for 5 days total --- nrd 05/07 (CHARLA BARRAZA, RN-Utilization Review 05/06/2019 13:43) Comment 4: Uploaded continuing stay clinicals (05/06/19) to [facility] via [employer]. (ARMANDO SHANNON, RN-Utilization Review 05/06/2019 12:11) Comment 5: Per [facility], admit approved with auth #[id number] given from 05/03-05/05/19. Next review date 05/06/19. (ARMANDO SHANNON, RN-Utilization Review 05/06/2019 08:05) Comment 6: Uploaded clinicals to [facility] administrators via [employer]. Manually faxed ARC form. (ARMANDO SHANNON, RN-Utilization Review 05/03/2019 13:31) Trudi Gaona, Rn-Utilization Review - 2019 12:15 EST documented in this encounter Plan of Treatment Not on file documented as of this encounter Visit Diagnoses Not on filedocumented in this encounter
--- OUTSIDE RECORDS SUMMARY | 2025-03-03 10:21 | XMS_ITS | Encounter Summary ---
Author Organization [facility] Address [address] [place] [address] Care Team Providers Care Tank Charger Name Role Phone Herberth Perez MD Primary Care Provider [phone] Katrin Oviedo RN Unavailable [phone] Zaida Lafleur PROTOTYPE MODEL MAKER Unavailable [phone] Gracia Petersen PROTOTYPE MODEL MAKER Unavailable [phone] Yunior Solorzano MD Unavailable [phone] Ross Baez DO Unavailable [phone] Edith Aleman RN Unavailable Unavailable Reason for Visit * Reason Comments Med Refill Encounter Details Date Type Department Care Team (Late st Contact Info) Description 08/20/2021 Refill [facility] [place] [facility] [address] [place] [address] Gracia Petersen, PROTOTYPE MODEL MAKER [address] [place] [address] Social History Tobacco Use Types [...] Description 04/22/2025 9:00 AM EST Ancillary Procedure [facility] [address] [facility]. [address] [place] [address] documented as of this encounter Visit Diagnoses [...] documented as of this encounter Care Teams Tank Charger Relationship Specialty Start Date End Date Herberth Perez MD [address] [place] [address] [place] [address] PCP - General 07/17/20 Katrin Oviedo, RN [facility] [address] [place] [address] VAD Coordinator Cardiology 08/06/20 10/21/24 Zaida Lafleur APRN [address] [place] [address] Nurse Practitioner Advanced Heart Failure and Transplant Cardiology 08/06/20 06/11/23 Gracia Petersen APRN [address] [place] [address] Nurse Practitioner Internal Medicine 08/06/20 Yunior Solorzano MD [address] [place] [address] Consulting Physician Gastroenterology 07/18/22 Ross Baez DO [address] [address] Surgeon Cardiothoracic Surgery 07/18/22 Edith Aleman, CONCESSION ATTENDANT None VAD Coordinator 10/14/24 documented as of this encounter
--- OUTSIDE RECORDS SUMMARY | 2025-03-03 10:21 | XMS_ITS | Encounter Summary ---
Author Organization [employer] ([place], [place], [place]) Address [address] [place] [address] Care Team Providers Care Private Investigator Surveillance Name Role Phone Unavailable Primary Care Provider Unavailabl e Encounter Details Date Type Department Care Team (Late st Contact Info) Description 05/13/2019 Transcribed Document [facility] [place] [facility] [address] ProviderMg [place] [address] Social History Tobacco Use Types [...] Policy Numbers : Insurance 1 Health Plan: [facility] Policy Number: Authorization Number: [id number] Insurance Primary Name : [employer] Administators [id number] Authorization Status-Primary : Admit approved Authorization Number-Primary : [id number] Number of Days Authorized-Primary : 6 Day(s) [...] THORNTON, Rn-Utilization Review 05/08/2019 14:43) Comment 4: [place] approved per Katrin for 5 days total --- nrd 3/4 (CHARLA BARRAZA, RN-Utilization Review 05/06/2019 13:43) Comment 5: Uploaded continuing stay clinicals (05/06/19) to [facility] via [employer]. (ARMANDO SHANNON, RN-Utilization Review 05/06/2019 12:11) Comment 6: Per [facility], admit approved with auth #[id number] given from 05/03-05/05/19. Next review date 05/06/19. (ARMANDO SHANNON, RN-Utilization Review 05/06/2019 08:05) Comment 7: Uploaded clinicals to [facility] administrators via [employer]. Manually faxed ARC form. (ARMANDO SHANNON, RN-Utilization Review 05/03/2019 13:31) CHARLA BARRAZA RN-Utilization Review - 05/13/2019 12:11 EDT Electronically signed by Morales Mejia Conversion Manufacturing Test Engineer [employer] at 06/19/2022 11:10 PM CDT documented in this encounter Plan of Treatment Not on file documented as of this encounter Visit Diagnoses Not on filedocumented in this encounter
--- OUTSIDE RECORDS SUMMARY | 2025-03-03 10:21 | XMS_ITS | Encounter Summary ---
Author Organization [facility] Address [address] [place] [address] Care Team Providers Care Music Ministries Director Name Role Phone Herberth Perez MD Primary Care Provider [phone] Gracia Petersen ADVENTURE EDUCATION TEACHER Unavailable [phone] Yunior Solorzano MD Unavailable [phone] Ross Baez DO Unavailable [phone] Edith Aleman RN Unavailable Unavailable Encounter Details Date Type Department Care Team (Late st Contact Info) Description 01/27/2025 Telephone [facility] [place] [facility] [address] [facility] [place] [address] Elisabet Raya MD [address] [place] [address] Social History Tobacco Use Types [...] any time in the past 12 m [facility], were you homeless or living [...] drink first t janine in the morning (EYE-AEROPHYSICIST) to steady your nerves or to get rid of a hangover? 0 09/19/2021 CAGE Questionnaire Score 0 022 Utilities Answer Date Recorded In the past 12 months has e [employer], gas, oil, or water company threatened to [...] Description 04/22/2025 9:00 AM EST Ancillary Procedure [facility] [place] [address] [place] [address] documented as of this encounter Goals Goal Patient Goal Type Associated Problems Recent Progress Patient-Stated? Author LVAD Short Term Goal General On track( 024 11:53 AM EDT) Yes Katrin Oviedo, RN Note: - 07/04/23: Patient states he wants to attend a wedding in November in [place] LVAD Superintendent Drilling Goal General On track( 024 11:53 AM [...] documented as of this encounter Care Teams Music Ministries Director Relationship Specialty Start Date End Date Herberth Perez MD [address] [place] [address] [place] [address] PCP - General 07/17/20 Gracia Petersen, ADVENTURE EDUCATION TEACHER [address] [place] [address] Nurse Practitioner Internal Medicine 08/06/20 Yunior Solorzano MD [address] [place] [address] Consulting Physician Gastroenterology 07/18/22 Ross Baez DO [address] [address] Surgeon Cardiothoracic Surgery 07/18/22 Edith Aleman, INSULATOR APPRENTICE None VAD Coordinator 10/14/24 documented as of this encounter
--- OUTSIDE RECORDS SUMMARY | 2025-03-03 10:21 | XMS_ITS | Encounter Summary ---
Author Organization [employer] ([place], [place], [place], [place]) Address [address] [place] [address] Care Team Providers Care Women'S Basketball Coach Name Role Phone Unavailable Primary Care Provider Unavailabl e Encounter Details Date Type Department Care Team (Late st Contact Info) Description 2019 Transcribed Document [facility] [place] [facility] [place] [address] ProviderMg MD [facility] [place] [address] Social History Tobacco Use Types Packs/Day Years Used Date Smoking Tobacco: Never Assessed Sex and Gender Information Value Date Recorded Sex Assigned at Not on file Legal Sex Male 1:09 PM CDT Gender Identity Not on file Sexual Orientation Not on file documented as of this encounter Miscellaneous Notes * [employer]ner Conversion Note - Mg ProviderMD - 2019 2:12 PM ASSEMBLER DECK AND HULL On Going Discharge Planning Entered On: 2019 14:13 EST Performed On: 2019 14:12 EST by Alyse Townsend Social Worker-Lining Finisher Care Management Progress Note Discharge Arrangements : Patient Post-Acute Information Patient Name: JOSE PEARSON Gender: Male : [birth year] Age: 48 Years No Post-Acute Placement(s) Listed No Post-Acute Service(s) Listed No [place] Referral(s) Listed Alyse Townsend Social Worker-Lining Finisher - 2019 14:12 EST Narrative Progress Note Narrative Progress Note : 05/09 Per chart, Dr. Davis was consulted for tikosyn dosing. Continue to follow... Historical Progress Note : 05/08 Per documentation left by Paula Villeda RN CM, referral information was sent to [facility]. Alyse Townsend Social Worker-Lining Finisher - 05/09/19 08:57:21 05/06 Received order to make referral to outpatient cardiac transplant program. Contacted [facility] appointment telephone number [phone]. They report the person who typically takes the referrals is unavailable and they will have her contact CM back. CM contact information was provided. They report the referral/scanning coordinator is Kailey PH: [phone]. Alyse Townsend Social Worker-Lining Finisher - 05/07/19 15:01:13 Per RN in Multidisciplinary rounds patient is NPO for scheduled Cardiomems today. Having some nausea after Fe Infusions requested the infusion be held until after procedure so he can eat. CM will follow. TANVIR THAYER Rn-Bias Cutter - 05/06/19 11:03:45 Alyse Townsend Social Worker-Lining Finisher - 2019 14:12 EST Electronically signed by [facility] Conversion Photographic Colorist Cerner at 06/19/2022 10:56 PM CDT documented in this encounter Plan of Treatment Not on file documented as of this encounter Visit Diagnoses Not on filedocumented in this encounter
--- OUTSIDE RECORDS SUMMARY | 2025-03-03 10:21 | XMS_ITS | Encounter Summary ---
Author Organization [employer] ([place], [place], [place], [place], [place]) Address [address] [place] [address] Care Team Providers Care Visor Installer Name Role Phone Unavailable Primary Care Provider Unavailabl e Encounter Details Date Type Department Care Team (Late st Contact Info) Description 05/17/2019 Transcribed Document [place] [facility] [place] [address] ProviderMg MD [facility] [place] [id number] Social History Tobacco Use Types Packs/Day Years [...] Problem list: Medical angina / SNOMED CT 481017007 / Confirmed Cardiac defibrillator in place / SNOMED CT 0926621640 / Confirmed interrogated at physicians office---02/22/13 pacemaker / SNOMED CT 2097942097 / Confirmed stroke / SNOMED CT 592681878 / Confirmed he had a stroke when they found the blood clot in valve History of obstructive sleep apnea / IMO 04807824 / Confirmed high cholesterol / SNOMED CT 50402531 / Confirmed hypertension / SNOMED CT 9900087678 / Confirmed myocardial infarction / SNOMED CT 09765511 / Confirmed sesonal allergies / SNOMED CT 0137614638 / Confirmed, Active Problems (16) stroke angina [...] Non-distended, Normal bowel sounds. Integumentary: Warm, Dry, [place], No rash. Results Review General results [facility] [...]
--- OUTSIDE RECORDS SUMMARY | 2025-03-03 10:21 | XMS_ITS | Encounter Summary ---
Author Organization [facility] Address [address] [place] [address] Care Team Providers Care Electronics Teacher Name Role Phone Herberth Perez MD Primary Care Provider [phone] Gracia Petersen SCHOOL BUS DRIVER/CUSTODIAN Unavailable [phone] Yunior Solorzano MD Unavailable [phone] Ross Baez DO Unavailable [phone] dEith Aleman RN Unavailable Unavailable Encounter Details Date [...] drink first t janine in the morning (EYE-PLUMBER MAINTENANCE) to steady your nerves or to get [...] Description 04/22/2025 9:00 AM EST Ancillary Procedure [facility] [address] [place] [address] documented as of this encounter Goals Goal Patient Goal Type Associated Problems Recent Progress Patient-Stated? Author LVAD Short Term Goal General On track( 11:53 AM EDT) Yes Katrin Oviedo, RN Note: - 07/04/23: Patient states he wants to attend a wedding in November in [place] LVAD Nursing Home Goal General On track( 024 11:53 [...] documented as of this encounter Care Teams Electronics Teacher Relationship Specialty Start Date End Date Herberth Perez MD [address] [place] [address] [place], [place] [address] PCP - General 07/17/20 Gracia Petersen APRN [address] [place] [address] Nurse Practitioner Internal Medicine 08/06/20 Yunior Solorzano MD [address] [place] [address] Consulting Physician Gastroenterology 07/18/22 Ross Baez DO [address] [address] Surgeon Cardiothoracic Surgery 07/18/22 Edith Aleman, HIRED WORKER None VAD Coordinator 10/14/24 documented as of this encounter
--- OUTSIDE RECORDS SUMMARY | 2025-03-03 10:21 | XMS_ITS | Encounter Summary ---
Author Organization [facility] Address [address] [place] [address] Care Team Providers Care Insurance Job Titles Name Role Phone Herberth Perez MD Primary Care Provider [phone] Gracia Petersen OFFICE SUPPORT Unavailable [phone] Yunior Solorzano MD Unavailable [phone] Ross Baez DO Unavailable [phone] Edith Aleman RN Unavailable Unavailable Encounter Details Date Type Department Care Team (Late st Contact Info) Description 01/27/2025 Orders Only [place] [address] [place] [address] Bita Dyer MD [address] [facility] [address] [place] [address] Infection associated with driveline of [...] any time in the past 12 m [facility], were you homeless or living [...] drink first t janine in the morning (EYE-POLO COACH) to steady your nerves or to [...] Description 04/22/2025 9:00 AM EST Ancillary Procedure [facility] [address] [place] [address] documented as of this encounter Goals Goal Patient Goal Type Associated Problems Recent Progress Patient-Stated? Author LVAD Short Term Goal General On track( 024 11:53 AM EDT) Yes Katrin Oviedo RN Note: - 07/04/23: Patient states he wants to attend a wedding in November in [place] LVAD Intermediate Goal General On track( 024 11:53 AM [...] documented as of this encounter Care Teams Insurance Job Titles Relationship Specialty Start Date End Date Herberth Perez MD [address] [place] [address] [place] [address] PCP - General 07/17/20 Gracia Petersen APRN [address] [place] [address] Nurse Practitioner Internal Medicine 08/06/20 Yunior Solorzano MD [address] [place] [address] Consulting Physician Gastroenterology 07/18/22 Ross Baez DO [address] [phone] Surgeon Cardiothoracic Surgery 07/18/22 Edith Aleman, WATCHMAKER APPRENTICE None VAD Coordinator 10/14/24 documented as of this encounter
--- OUTSIDE RECORDS SUMMARY | 2025-03-03 10:21 | XMS_ITS | Encounter Summary ---
Author Organization [employer] ([place], [place], [place], [place], [place]) Address [address] [place] [address] Care Team Providers Care Tube Balancer Name Role Phone Unavailable Primary Care Provider Unavailabl e Encounter Details Date Type Department Care Team (Late st Contact Info) Description 2019 Transcribed Document [facility] [place] Family Medicine [facility] [place] [address] ProviderMg MD [facility] [place] [address] Social History Tobacco Use Types Packs/Day Years Used Date Smoking Tobacco: Never Assessed Sex and Gender Information Value Date Recorded Sex Assigned at Not on file Legal Sex Male 1:09 PM CDT Gender Identity Not on file Sexual Orientation Not on file documented as of this encounter Miscellaneous Notes * [employer] Conversion Note - Historical ProviderMD - 2019 8:38 PM MARKETING MGR Stroke/Warfarin Instructions Entered On: 2019 20:38 EST Performed On: 2019 20:38 EST by EVE NGUYEN RN Stroke/Warfarin Instructions Stroke/TIA Discharge Ins : N/A Warfarin Discharge Ins : N/A EVE NGUYEN RN - 2019 20:38 EST Electronically signed by Morales Mejia Conversion System Configuration Specialist [employer] at 06/19/2022 10:52 PM CDT documented in this encounter Plan of Treatment Not on file documented as of this encounter Visit Diagnoses Not on filedocumented in this encounter
--- OUTSIDE RECORDS SUMMARY | 2025-03-03 10:21 | XMS_ITS | Encounter Summary ---
Author Organization [facility] Address [address] [place] [address] Care Team Providers Care Final Inspector Paper Name Role Phone Herberth Perez MD Primary Care Provider [phone] Gracia Petersen PROFESSOR OF COMMUNICATION Unavailable [phone] Yunior Solorzano MD Unavailable [phone] Ross Baez DO Unavailable [phone] Edith Aleman RN Unavailable Unavailable Encounter Details Date Type Department Care Team (Late st Contact Info) Description 01/24/2025 Orders Only [facility] [place] [facility] [address] [place] [address] Edith Aleman, MAGNETO SPECIALIST None Infection associated with driveline of [...] any time in the past 12 m [facility], were you homeless or living [...] drink first t janine in the morning (EYE-LABEL TACKER) to steady your nerves or to get rid of a hangover? 0 09/19/2021 CAGE Questionnaire Score 0 022 Utilities Answer Date Recorded In the past 12 months has e [employer], gas, oil, or water company threatened to [...] Description 04/22/2025 9:00 AM EST Ancillary Procedure [facility] [address] [place] [address] documented as of this encounter Goals Goal Patient Goal Type Associated Problems Recent Progress Patient-Stated? Author LVAD Short Term Goal General On track( 024 11:53 AM EDT) Yes Katrin Oviedo RN Note: - 07/04/23: Patient states he wants to attend a wedding in November in [place] LVAD Solidworks Mechanical Designer Goal General On track( 024 11:53 [...] documented as of this encounter Care Teams Final Inspector Paper Relationship Specialty Start Date End Date Herberth Perez MD [address] [address] PCP - General 07/17/20 Gracia Petersen APRN [address] [place] [address] Nurse Practitioner Internal Medicine 08/06/20 Yunior Solorzano MD [address] [place] [address] Consulting Physician Gastroenterology 07/18/22 Ross Baez, [address] [address] Surgeon Cardiothoracic Surgery 07/18/22 Edith Aleman, MAGNETO SPECIALIST None VAD Coordinator 10/14/24 documented as of this encounter
--- OUTSIDE RECORDS SUMMARY | 2025-03-03 10:22 | XMS_ITS | Encounter Summary ---
Author Organization [facility] Address [address] [place] [address] Care Team Providers Care Exercise Rider Name Role Phone Herberth Perez MD Primary Care Provider [phone] Gracia Petersen CHIP MACHINE OPERATOR Unavailable [phone] Yunior Solorzano MD Unavailable [phone] Ross Baez DO Unavailable [phone] Edith Aleman RN Unavailable Unavailable Encounter [...] drink first t janine in the morning (EYE-COYOTE HUNTER) to steady your nerves or to get [...] AM EDT documented as of this encounter Functional Status * Communicable Disease Screening Question Answer Date of Assessment Author Have you been in contact wit h someone who was sick? No / Unsure 01/28/2025 8:57 AM Cierra Ruth Do you have any of the follo wing new or worsening symptoms? None of these 01/28/2025 8:57 AM Cailin Ruth * Travel Screening Question Answer Date of Assessment Author Have you traveled internatio bl[place] or domestically in the last month? No 01/28/2025 8:57 AM Cierra Callahan documented as of this encounter Mental Status * Communicable Disease Screening Question Answer Entry Date Author Have you been in contact wit h someone who was sick? No / Unsure 01/28/2025 8:57 AM Cierra Ruth Do you have any of the follo wing new or worsening symptoms? None of these 01/28/2025 8:57 AM Cailin Ruth * Travel Screening Question Answer Entry Date Author Have you traveled internatio blane or domestically in the last month? No 01/28/2025 8:57 AM Cierra Callahan documented in this encounter Plan of Treatment Upcoming Encounters Date Type Department Care Team (Late st Contact Info) Description 04/22/2025 9:00 AM EST Ancillary Procedure [facility] [place] [address] [place] [address] documented as of this encounter Goals Goal Patient Goal Type Associated Problems Recent Progress Patient-Stated? Author LVAD Short Term Goal General On track( 024 11:53 AM EDT) Yes Katrin Oviedo, RN Note: - 07/04/23: Patient states he wants to attend a wedding in November in [place] LVAD Air Conditioning Supervisor Goal General On track( 024 11:53 AM [...] documented as of this encounter Care Teams Exercise Rider Relationship Specialty Start Date End Date Herberth Perez MD [address] [place] [address] [place] [address] PCP - General 07/17/20 Gracia Petersen APRN [address] [place] [address] Nurse Practitioner Internal Medicine 08/06/20 Yunior Solorzano MD [address] [place] [address] Consulting Physician Gastroenterology 07/18/22 Ross Baez DO [address] [address] Surgeon Cardiothoracic Surgery 07/18/22 Edith Aleman, SNOWMAKER None VAD Coordinator 10/14/24 documented as of this encounter
--- OUTSIDE RECORDS SUMMARY | 2025-03-03 10:22 | XMS_ITS | Encounter Summary ---
Author Organization [employer] ([place], [place], [place], [place], [place]) Address [address] [place] [address] Care Team Providers Care Sales Compensation Analyst Name Role Phone Unavailable Primary Care Provider Unavailabl e Encounter Details Date Type Department Care Team (Late st Contact Info) Description 04/12/2019 Transcribed Document [facility] [place] [facility] [address] ProviderMg MD [facility] [place] [address] Social History Tobacco Use Types Packs/Day Years Used Date Smoking Tobacco: Never Assessed Sex and Gender Information Value Date Recorded Sex Assigned at Not on file Legal Sex Male 1:09 PM CDT Gender Identity Not on file Sexual Orientation Not on file documented as of this encounter Miscellaneous Notes * Cerner Conversion Note - Historical ProviderMD - 04/12/2019 11:57 AM MOTORCYCLE SUBASSEMBLY REPAIRER [facility] Charges Entered On: 04/12/2019 11:59 EST Performed On: 04/12/2019 11:57 EST by PAUL GARCES PT [facility] Charges Physical Therapy Screen : 1 PAUL GARCES PT - 04/12/2019 11:57 EST Electronically signed by Morales Mejia Conversion Freelance Programmer/App Developer [employer] at 06/19/2022 11:12 PM CDT documented in this encounter Plan of Treatment Not on file documented as of this encounter Visit Diagnoses Not on filedocumented in this encounter
--- OUTSIDE RECORDS SUMMARY | 2025-03-03 10:22 | XMS_ITS | Encounter Summary ---
Author Organization [employer] ([place], [place], [place], [place], [place]) Address [address] [place] [address] Care Team Providers Care Duplicating Machine Mechanic Name Role Phone Unavailable Primary Care Provider Unavailabl e Encounter Details Date Type Department Care Team (Late st Contact Info) Description 04/12/2019 Transcribed Document [facility] [place] [facility] [place] [address] ProviderMg MD [facility] [place] [address] Social History Tobacco Use Types Packs/Day Years Used Date Smoking Tobacco: Never Assessed Sex and Gender Information Value Date Recorded Sex Assigned at Not on file Legal Sex Male 1:09 PM CDT Gender Identity Not on file Sexual Orientation Not on file documented as of this encounter Miscellaneous Notes * Cerner Conversion Note - Historical ProviderMD - 04/12/2019 5:[address]CHNICIAN Height and Weight, Routine Entered On: 04/12/2019 6:40 EST Performed On: 04/12/2019 5:00 EST by Ashely Townsend RN Height and Weight, Routine Routine Weight Source : Standing scale Routine Weight Entry Format : [place] Routine Weight, Pounds : 244 lb Routine Weight, Ounces : 7 oz Routine Weight Calculation : 111.11 kg Height Source : Stated Height Entry Format : [place] Height, Feet : 6 ft Height, Inches : 2 Inch Clinical Height : 187.96 cm Body Surface Area (BSA), Routine : 2.37 m2 Body Mass Index (BMI), Routine : 31.45 kg/m2 Ashely Townsend RN - 04/12/2019 6:39 EST Electronically signed by Jackie [facility] Conversion Chef Instructor Cerner at 06/19/2022 11:11 PM CDT documented in this encounter Plan of Treatment Not on file documented as of this encounter Visit Diagnoses Not on filedocumented in this encounter
--- OUTSIDE RECORDS SUMMARY | 2025-03-03 10:22 | XMS_ITS | Encounter Summary ---
Author Organization [employer] ([place], [place], [place], [place], [place]) Address [address] [place] [address] Care Team Providers Care Naval Marine Engineer Name Role Phone Unavailable Primary Care Provider Unavailabl e Encounter Details Date Type Department Care Team (Late st Contact Info) Description 04/13/2019 Transcribed Document [facility] [place] Family Medicine [facility] [address] ProviderMg MD [facility] [place] [address] Social History Tobacco Use Types Packs/Day Years Used Date Smoking Tobacco: Never Assessed Sex and Gender Information Value Date Recorded Sex Assigned at Not on file Legal Sex Male 1:09 PM CDT Gender Identity Not on file Sexual Orientation Not on file documented as of this encounter Miscellaneous Notes * Cerner Conversion Note - Mg ProviderMD - 04/13/2019 12:39 PM CURTAIN INSPECTOR Stroke/Warfarin Instructions Entered On: 04/13/2019 12:39 EST [...] 04/13/2019 12:39 EST Electronically signed by Jackie, [facility] Conversion Milk Truck Driver Cerner at 06/19/2022 10:49 PM CDT documented in this encounter Plan of Treatment Not on file documented as of this encounter Visit Diagnoses Not on filedocumented in this encounter
--- OUTSIDE RECORDS SUMMARY | 2025-03-03 10:22 | XMS_ITS | Encounter Summary ---
Author Organization [employer] ([place], [place], [place], [place], [place]) Address [address] [place] [address] Care Team Providers Care Commercial Specialist Name Role Phone Unavailable Primary Care Provider Unavailabl e Encounter Details Date Type Department Care Team (Late st Contact Info) Description 04/12/2019 Transcribed Document [facility] [place] [facility] [place] [address] ProviderMg MD [facility] [place] [address] Social History Tobacco Use Types Packs/Day Years Used Date Smoking Tobacco: Never Assessed Sex and Gender Information Value Date Recorded Sex Assigned at Not on file Legal Sex Male 1:09 PM CDT Gender Identity Not on file Sexual Orientation Not on file documented as of this encounter Miscellaneous Notes * Cerner Conversion Note - Historical ProviderMD - 04/12/2019 5:00 PM MACHINE SPECIALIST Chart Check - Review Order Profile [...]
--- OUTSIDE RECORDS SUMMARY | 2025-03-03 10:22 | XMS_ITS | Encounter Summary ---
Author Organization [facility] Address [address] [facility] [place] [address] Care Team Providers Care Barber Tool Sharpener Name Role Phone Herberth Perez MD Primary Care Provider Katrin Oviedo RN Unavailable [phone] Zaida Lafleur SAILBOAT CAPTAIN Unavailable Gracia Petersen SAILBOAT CAPTAIN Unavailable Yunior Solorzano MD Unavailable [phone] Ross Baez DO Unavailable [phone] Edith Aleman RN Unavailable Unavailable Reason for Visit * Reason Comments Med Refill Encounter Details Date Type Department Care Team (Late st Contact Info) Description 11/14/2021 Refill [facility] [place] [facility] [address] [place] [address] Dina Saldana, SAILBOAT CAPTAIN [address] [place] [address] Social History Tobacco Use Types Packs/Day Years [...] drink first t janine in the morning (EYE-SHIPPING AND RECEIVING MATERIAL HANDLER) to steady your nerves or to [...] Description 04/22/2025 9:00 AM EST Ancillary Procedure [facility] [place] [address] [facility] [place] [address] documented as of this encounter Visit Diagnoses [...] documented as of this encounter Care Teams Barber Tool Sharpener Relationship Specialty Start Date End Date Herberth Perez MD [address] [place] [address] [place] [address] PCP - General 07/17/20 Katrin Oviedo, RN [facility] [address] [place] [address] VAD Coordinator Cardiology 08/06/20 10/21/24 Zaida Lafleur APRN [address] [place] [address] Nurse Practitioner Advanced Heart Failure and Transplant Cardiology 08/06/20 06/11/23 Gracia Petersen APRN [address] [place] [address] Nurse Practitioner Internal Medicine 08/06/20 Yunior Solorzano MD [address] [place] [address] Consulting Physician Gastroenterology 07/18/22 Ross Baez, [address] [place] [address] Surgeon Cardiothoracic Surgery 07/18/22 Edith Aleman, SUPERVISOR ROLLER SHOP None VAD Coordinator 10/14/24 documented as of this encounter
--- OUTSIDE RECORDS SUMMARY | 2025-03-03 10:22 | XMS_ITS | Encounter Summary ---
Author Organization [facility] Address [address] [place] [address] Care Team Providers Care Skilled Labor Name Role Phone Herberth Perez MD Primary Care Provider [phone] Gracia Petersen SEAFOOD SERVICE TEAM MEMBER Unavailable [phone] Yunior Solorzano MD Unavailable [phone] Ross Baez DO Unavailable [phone] Edith Aleman RN Unavailable Unavailable Reason for Referral * Clinic-Administered Medication (Routine) - Pending Review Specialty Diagnoses / Procedures Referred By Yared díaz Referred To Contact Diagnoses Low iron Iron deficiency Cierra Orellana MD [address] [place] [address] Phone: tel: fax: Referral ID Status Reason Start Date Expiration Date V isits Requested Visits Authorized [id number] Pending Review 02/03/2025 08/05/2026 4 4 Encounter Details Date Type Department Care Team (Late st Contact Info) Description 02/03/2025 [facility] [place] [facility] [address] [facility] 1st Floor [address] [place] [address] Edith Aleman, SNOWSPORT INSTRUCTOR None Low iron; Iron deficiency Social [...] in the past [address] [facility], were you homeless or living [...] drink first t janine in the morning (EYE-TELECOMMUNICATION EQUIPMENT REPAIRER) to steady your nerves or to get rid of a hangover? 0 09/19/2021 CAGE Questionnaire Score 0 022 Utilities Answer Date Recorded In the past 12 months has [employer], gas, oil, or water company threatened to [...] EST Ancillary Procedure [facility] [place] [facility] [address] [place] [address] documented as of this encounter Goals Goal Patient Goal Type Associated Problems Recent Progress Patient-Stated? Author LVAD Short Term Goal General On track( 024 11:53 AM EDT) Yes Katrin Oviedo, RN Note: - 07/04/23: Patient states he wants to attend a wedding in November in [place] LVAD [facility] Goal General On track( 024 11:53 AM [...] documented as of this encounter Care Teams Skilled Labor Relationship Specialty Start Date End Date Herberth Perez MD [address] [place] [address] [place] [address] PCP - General 07/17/20 Gracia Petersen APRN [address] [place] [address] Nurse Practitioner Internal Medicine 08/06/20 Yunior Solorzano MD [address] [place] [address] Consulting Physician Gastroenterology 07/18/22 Ross Baez DO [address] [address] Surgeon Cardiothoracic Surgery 07/18/22 Edith Aleman, SNOWSPORT INSTRUCTOR None VAD Coordinator 10/14/24 documented as of this encounter
--- OUTSIDE RECORDS SUMMARY | 2025-03-03 10:22 | XMS_ITS | Encounter Summary ---
Author Organization [facility] Address [address] [place] [id number] Care Team Providers Care Wax Pattern Repairer Name Role Phone Herberth Perez MD Primary Care Provider [phone] Gracia Petersen CRIME SCENE EXAMINER Unavailable [phone] Yunior Solorzano MD Unavailable [phone] Ross Baez DO Unavailable [phone] Edith Aleman RN Unavailable Unavailable Reason for Visit * Reason Comments Med Refill Encounter Details Date Type Department Care Team (Late st Contact Info) Description 01/14/2025 Refill [facility] [place] [address] [facility] 1st Floor [address] [place] [address] Martine Taylor, RN [facility] [address] [place] [address] Social History Tobacco Use Types Packs/Day Years [...] any time in the [facility], were you homeless or living in [...] drink first t janine in the morning (EYE-WIRE WEAVER CLOTH) to steady your nerves or to get rid of a hangover? 0 09/19/2021 CAGE Questionnaire Score 0 Utilities Answer Date Recorded In the past 12 months has th e [employer], gas, oil, or water company threatened to [...] Description 04/22/2025 9:00 AM EST Ancillary Procedure [facility] [place] [facility] [address] [place] [address] documented as of this encounter Goals Goal Patient Goal Type Associated Problems Recent Progress Patient-Stated? Author LVAD Short Term Goal General On track( 11:53 AM EDT) Yes Katrin Oviedo, RN Note: - 07/04/23: Patient states he wants to attend a wedding in November in [place] LVAD Certified Industrial Hygienist Goal General On track( 11:53 AM EDT) [...] documented as of this encounter Care Teams Wax Pattern Repairer Relationship Specialty Start Date End Date Herberth Perez MD [address] [place] [address] [place] [address] PCP - General 07/17/20 Gracia Petersen APRN [address] [place] [address] Nurse Practitioner Internal Medicine 08/06/20 Yunior Solorzano MD [address] [place] [address] Consulting Physician Gastroenterology 07/18/22 Ross Baez, [address] [address] Surgeon Cardiothoracic Surgery 07/18/22 Edith Aleman, WEAVING TEACHER None VAD Coordinator 10/14/24 documented as of this encounter
--- OUTSIDE RECORDS SUMMARY | 2025-03-03 10:22 | XMS_ITS | Encounter Summary ---
Author Organization [employer] ([place], [place], [place], [place], [place]) Address [address] [place] [address] Care Team Providers Care Needle Punch Machine Operator Name Role Phone Unavailable Primary Care Provider Unavailabl e Encounter Details Date Type Department Care Team (Late st Contact Info) Description 04/13/2019 Transcribed Document [facility] [place] [facility] [place] [address] ProviderMg MD [address] [place] [id number] Social History Tobacco Use Types Packs/Day Years Used Date Smoking Tobacco: Never Assessed Sex and Gender Information Value Date Recorded Sex Assigned at Not on file Legal Sex Male 1:09 PM CDT Gender Identity Not on file Sexual Orientation Not on file documented as of this encounter Miscellaneous Notes * Cerner Conversion Note - Mg Ritchie MD - 04/13/2019 12:35 PM HUMAN RESOURCES ASSISTANT MANAGER Patient Education Materials Follows:Medicine and Rehabilitation [...] 11/29/2008 Document Revised: 09/12/2017 Document Reviewed: 01/04/2016 [employer] Interactive Patient Education ? 2019 [employer] Inc[employer] Preventive Health Heart Disease Prevention Heart [...] out more about heart disease, visit the [place] [employer] Association's website at www.americanheart.org This information is not intended to replace advice given to you by your health care provider. Make sure you discuss any questions you have with your health care provider. Document Released: 10/04/2004 Document Revised: 07/20/2016 Document Reviewed: 04/16/2014 [email or web address] Interactive Patient Education ? 2019 [employer] Inc[employer] documented in this encounter Plan of Treatment Not on file documented as of this encounter Visit Diagnoses Not on filedocumented in this encounter
--- OUTSIDE RECORDS SUMMARY | 2025-03-03 10:22 | XMS_ITS | Encounter Summary ---
Author Organization [facility] Address [address] [place] [address] Care Team Providers Care Approver Name Role Phone Herberth Perez MD Primary Care Provider [phone] Gracia Petersen IMMIGRATION MANAGER Unavailable [phone] Yunior Solorzano MD Unavailable [phone] Ross Baez DO Unavailable [phone] Edith Aleman RN Unavailable Unavailable Encounter [...] drink first t janine in the morning (EYE-STUDENT RECORDS COORDINATOR) to steady your nerves or to [...] Description 04/22/2025 9:00 AM EST Ancillary Procedure [facility] [place] [facility] [address] [place] [address] documented as of this encounter Goals Goal Patient Goal Type Associated Problems Recent Progress Patient-Stated? Author LVAD Short Term Goal General On track( 11:53 AM EDT) Yes Katrin Oviedo, RN Note: - 07/04/23: Patient states he wants to attend a wedding in November in [place] LVAD Group Home Goal General On track( [...] documented as of this encounter Care Teams Approver Relationship Specialty Start Date End Date Herberth Perez MD [address] [place] [address] [place] [address] PCP - General 07/17/20 Gracia Petersen APRN [address] [place] [address] Nurse Practitioner Internal Medicine 08/06/20 Yunior Solorzano MD [address] [place] [address] Consulting Physician Gastroenterology 07/18/22 Ross Baez DO [address] [address] Surgeon Cardiothoracic Surgery 07/18/22 Edith Aleman, CHIEF WELLNESS OFFICER None VAD Coordinator 10/14/24 documented as of this encounter
--- OUTSIDE RECORDS SUMMARY | 2025-03-03 10:22 | XMS_ITS | Encounter Summary ---
Author Organization [facility] Address [address] [place] [address] Care Team Providers Care Repair Technician Name Role Phone Herberth Perez MD Primary Care Provider [phone] Gracia Petersen HOUSEHOLD APPLIANCE ASSEMBLER Unavailable [phone] Yunior Solorzano MD Unavailable [phone] Ross Baez DO Unavailable [phone] Edith Aleman RN Unavailable Unavailable Reason for Referral * Clinic-Administered Medication (Routine) - Pending Review Specialty Diagnoses / Procedures Referred By Yared díaz Referred To Contact Diagnoses Iron deficiency Cierra Orellana MD [address] [place] [address] Phone: tel: fax: Referral ID Status Reason Start Date Expiration Date V isits Requested Visits Authorized [id number] Pending Review 01/29/2025 07/31/2026 5 5 Encounter Details Date Type Department Care Team (Late st Contact Info) Description 01/29/2025 Refill [facility] [place] [facility] [address] [facility] 1st Floor [address] [place] [address] Edith Aleman, RN ANTE PARTUM None Iron deficiency (Primary Dx) Social History [...] any time in the past 12 m [facility], were you homeless or [...] drink first t janine in the morning (EYE-DOG WALKER) to steady your nerves or to get rid of a hangover? 0 09/19/2021 CAGE Questionnaire Score 0 022 Utilities Answer Date Recorded In the past 12 months has e [employer], gas, oil, or water [employer] threatened to shut off services in your [...] Description 04/22/2025 9:00 AM EST Ancillary Procedure [facility] [place] [facility] [address] [place] [address] documented as of this encounter Goals Goal Patient Goal Type Associated Problems Recent Progress Patient-Stated? Author LVAD Short Term Goal General On track( 024 11:53 AM EDT) Yes Katrin Oviedo, RN Note: - 07/04/23: Patient states he wants to attend a wedding in November in [place] LVAD Oil Burner Mechanic Goal General On track( 024 11:53 [...] documented as of this encounter Care Teams Repair Technician Relationship Specialty Start Date End Date Herberth Perez MD [address] [place] [address] [place] [address] PCP - General 07/17/20 Gracia Petersen APRN [address] [address] Nurse Practitioner Internal Medicine 08/06/20 Yunior Solorzano MD [address] [place] [address] Consulting Physician Gastroenterology 07/18/22 Ross Baez DO [address] [address] Surgeon Cardiothoracic Surgery 07/18/22 Edith Aleman, RN ANTE PARTUM None VAD Coordinator 10/14/24 documented as of this encounter
--- OUTSIDE RECORDS SUMMARY | 2025-03-03 10:22 | XMS_ITS | Encounter Summary ---
Author Organization [employer] ([place], [place], [place], [place], [place]) Address [address] [place] [address] Care Team Providers Care Mixing Machine Feeder Name Role Phone Unavailable Primary Care Provider Unavailabl e Encounter Details Date Type Department Care Team (Late st Contact Info) Description 04/12/2019 Transcribed Document [facility] [place] Family Medicine [facility] [place] [address] ProviderMg MD [facility] [place] [address] Social History Tobacco Use Types Packs/Day Years Used Date Smoking Tobacco: Never Assessed Sex and Gender Information Value Date Recorded Sex Assigned at Not on file Legal Sex Male 1:09 PM CDT Gender Identity Not on file Sexual Orientation Not on file documented as of this encounter Miscellaneous Notes * Cerner Conversion Note - Mg ProviderMD - 04/12/2019 10:52 PM HEAD OF LOSS PREVENTION Event Note Entered On: 04/12/2019 23:02 EST [...] 04/12/2019 22:52 EST Electronically signed by Jackie [facility] Conversion Wood Engraver Cerner at 06/19/2022 11:04 PM CDT documented in this encounter Plan of Treatment Not on file documented as of this encounter Visit Diagnoses Not on filedocumented in this encounter
--- OUTSIDE RECORDS SUMMARY | 2025-03-03 10:22 | XMS_ITS | Encounter Summary ---
Author Organization [facility] Address [address] [place] [address] Care Team Providers Care Burial Vault Deliverer And Installer Name Role Phone Herberth Perez MD Primary Care Provider [phone] Gracia Petersen NEUROLOGIST Unavailable [phone] Yunior Solorzano MD Unavailable [phone] Ross Baez DO Unavailable [phone] Edith Aleman RN Unavailable Unavailable Reason for Visit * Reason Onset Date Comments HCN - Patient Message 02/12/2025 Encounter Details Date Type Department Care Team (Late st Contact Info) Description 02/12/2025 Telephone [facility] [place] [facility] [address] [facility]. [address] [place] [address] Melisa Vazquez MD [address] [place] [address] HCN - Patient Message Social [...] place to sleep or slept in a care home (including now)? No 12/19/2023 PHQ-9 Answer [...] any time in the past 12 m [facility], were you homeless or living in a care home (including now)? No 04/08/2024 CAGE ASSESSMENT [...] drink first t janine in the morning (EYE-ADMINISTRATIVE AND PROGRAM SPECIALIST) to steady your nerves or to [...] AM EST Clinical Concern/Question Reason for Call: [facility] is calling to see if we can fax back the orders they sentwith providers signature, Best contact number: Other: [phone] Optimal time of day to reach caller: ANYTIME Additional comments/information from caller: None Note: Please do not reply to this message. Follow-up communication and further actions as a result of this message need to be communicated with the patient directly, if the patient is not active onMyChart. If the patient is active on MyChart, they will receive notification of the communication/outcome via Quitbithart. documented in this encounter Plan of Treatment Upcoming Encounters Date Type Department Care Team (Late st Contact Info) Description 04/22/2025 9:00 AM EST Ancillary Procedure [facility] [address] [place] [address] documented as of this encounter Goals Goal Patient Goal Type Associated Problems Recent Progress Patient-Stated? Author LVAD Short Term Goal General On track( 024 11:53 AM EDT) Yes Katrin Oviedo, RN Note: - 07/04/23: Patient states he wants to attend a wedding in November in [place] LVAD Cost Specialist Goal General On track( 024 11:53 [...] documented as of this encounter Care Teams Burial Vault Deliverer And Installer Relationship Specialty Start Date End Date Herberth Perez MD [address] [place] [address] [place] [address] PCP - General 07/17/20 Gracia Petersen APRN [address] [place] [address] Nurse Practitioner Internal Medicine 08/06/20 Yunior Solorzano MD [address] [place] [address] Consulting Physician Gastroenterology 07/18/22 Ross Baez DO [address] [address] Surgeon Cardiothoracic Surgery 07/18/22 Edith Aleman, PRESS BOX CUSTODIAN None VAD Coordinator 10/14/24 documented as of this encounter
--- OUTSIDE RECORDS SUMMARY | 2025-03-03 10:22 | XMS_ITS | Encounter Summary ---
Author Organization [employer] ([place], [place], [place], [place], [place]) Address [address] [place] [address] Care Team Providers Care Manager Of Care Name Role Phone Unavailable Primary Care Provider Unavailabl e Encounter Details Date Type Department Care Team (Late st Contact Info) Description 04/13/2019 Transcribed Document [facility] Family Medicine [facility] [place] [address] ProviderMg MD [facility] [place] [id number] Social History Tobacco Use Types Packs/Day Years Used Date Smoking Tobacco: Never Assessed Sex and Gender Information Value Date Recorded Sex Assigned at Not on file Legal Sex Male 1:09 PM CDT Gender Identity Not on file Sexual Orientation Not on file documented as of this encounter Miscellaneous Notes * Cerner Conversion Note - Mg ProviderMD - 04/13/2019 5:29 PM SAP MOBILITY ARCHITECT Final Discharge Planning Entered On: 04/13/2019 17:29 EST Performed On: 04/13/2019 17:29 EST by ADELAIDE SOLARES, Rn-Warranty Manager Final Discharge Planning Discharge Arrangements : Patient Post-Acute Information Patient Name: JOSE PEARSON Gender: Male : [birth year] Age: 48 Years No Post-Acute Placement(s) Listed No Post-Acute Service(s) Listed No [place] Referral(s) Listed Discharge To Care Management : Home/Residential/Halfway or Self Care -01 ADELAIDE SOLARES, Rn-Warranty Manager - 04/13/2019 17:29 EST documented in this encounter Plan of Treatment Not on file documented as of this encounter Visit Diagnoses Not on filedocumented in this encounter
--- OUTSIDE RECORDS SUMMARY | 2025-03-03 10:22 | XMS_ITS | Encounter Summary ---
Author Organization [facility] Address [address] [place] [address] Care Team Providers Care Can Top Setter Name Role Phone Herberth Perez MD Primary Care Provider [phone] Gracia Petersen AGRICULTURAL PRODUCE WASHER Unavailable [phone] Yunior Solorzano MD Unavailable [phone] Ross Baez DO Unavailable [phone] Edith Aleman RN Unavailable Unavailable Encounter Details Date Type Department Care Team (Latest Contact Info) Description 01/20/2025 Anticoagulation - Warfarin Visit [facility] [place] [facility] [address] [facility] 1st Floor [address] [place] [address] Edith Aleman, BOILERMAKER'S ASSISTANT None LVAD (left ventricular assist device) present ([facility]) (Primary Dx); Anticoagulant long-term use Social History [...] drink first t janine in the morning (EYE-NAME PLATE STAMPING MACHINE OPERATOR) to steady your nerves or to get rid of a hangover? 0 09/19/2021 CAGE Questionnaire Score 0 022 Utilities Answer Date Recorded In the past 12 months has e [employer], gas, oil, or water [employer] threatened to shut off services in your [...] Description 04/22/2025 9:00 AM EST Ancillary Procedure [facility] [place] [address] [place] [address] documented as of this encounter Goals Goal Patient Goal Type Associated Problems Recent Progress Patient-Stated? Author LVAD Short Term Goal General On track( 024 11:53 AM EDT) Yes Katrin Oviedo RN Note: - 07/04/23: Patient states he wants to attend a wedding in November in [place] LVAD Senior Living Goal General On track( 024 11:53 AM EDT) Yes Katrin Oviedo RN Note: - 07/04/23: Patient states he wants to meet his grandchild when they are born in November documented as of this encounter Visit Diagnoses Diagnosis LVAD (left ventricular assist device) present ([facility])- Primary Anticoagulant long-term use Encounter for long-term [...] as of this encounter Care Teams Can Top Setter Relationship Specialty Start Date End Date Herberth Perez MD [address] [place] [address] [place] [address] PCP - General 07/17/20 Gracia Petersen APRN [address] [place] [address] Nurse Practitioner Internal Medicine 08/06/20 Yunior Solorzano MD [address] [place] [address] Consulting Physician Gastroenterology 07/18/22 Ross Baez, [address] [phone] Surgeon Cardiothoracic Surgery 07/18/22 Edith Aleman, BOILERMAKER'S ASSISTANT None VAD Coordinator 10/14/24 documented as of this encounter
--- OUTSIDE RECORDS SUMMARY | 2025-03-03 10:22 | XMS_ITS | Encounter Summary ---
Author Organization [employer] ([place], [place], [place], [place]) Address [address] [place] [address] Care Team Providers Care Global Analytics Head Name Role Phone Unavailable Primary Care Provider Unavailabl e Encounter Details Date Type Department Care Team (Late st Contact Info) Description 04/12/2019 Transcribed Document [facility] Family Medicine [facility] [place] [address] ProviderMg MD [facility] [place] [address] Social History Tobacco Use Types Packs/Day Years Used Date Smoking Tobacco: Never Assessed Sex and Gender Information Value Date Recorded Sex Assigned at Not on file Legal Sex Male 1:09 PM CDT Gender Identity Not on file Sexual Orientation Not on file documented as of this encounter Miscellaneous Notes * Cerner Conversion Note - Historical ProviderMD - 04/12/2019 11:[address] [facility] OT Charges Entered On: 04/12/2019 11:09 EST Performed On: 04/12/2019 11:09 EST by NAHUM CORNELIUS OTR/Kaushal Hager OT Charges Screen For Manager Customs : 1 NAHUM CORNELIUS OTR/Kaushal - 04/12/2019 11:09 EST documented in this encounter Plan of Treatment Not on file documented as of this encounter Visit Diagnoses Not on filedocumented in this encounter
--- OUTSIDE RECORDS SUMMARY | 2025-03-03 10:22 | XMS_ITS | Encounter Summary ---
Author Organization [employer] ([place], [place], [place], [place], [place]) Address [address] [place] [address] Care Team Providers Care Medical Records Administrator Name Role Phone Unavailable Primary Care Provider Unavailabl e Encounter Details Date Type Department Care Team (Late st Contact Info) Description 04/12/2019 Transcribed Document [facility] Family Medicine [facility] [place] [address] ProviderMg MD [facility] [place] [address] Social History Tobacco Use Types Packs/Day Years Used Date Smoking Tobacco: Never Assessed Sex and Gender Information Value Date Recorded Sex Assigned at Not on file Legal Sex Male 1:09 PM CDT Gender Identity Not on file Sexual Orientation Not on file documented as of this encounter Miscellaneous Notes * Cerner Conversion Note - Historical ProviderMD - 04/12/2019 5:00 AM CABLE SPLICER HELPER Chart Check - Review Order Profile [...]
--- OUTSIDE RECORDS SUMMARY | 2025-03-03 10:22 | XMS_ITS | Encounter Summary ---
Author Organization [facility] Address [address] [place] [address] Care Team Providers Care Account Liaison Name Role Phone Herberth Perez MD Primary Care Provider [phone] Gracia Petersen SUGAR CONTROLLER Unavailable [phone] Yunior Solorzano MD Unavailable [phone] Ross Baez DO Unavailable [phone] Edith Aleman RN Unavailable Unavailable Encounter Details Date Type Department Care Team (Latest Contact Info) Description 02/11/2025 Anticoagulation - Warfarin Visit [facility] [place] [facility] [address] [facility] 1st Floor [address] [place] [address] Edith Aleman, INSIDE SALES AGENT None LVAD (left ventricular assist device) [...] drink first t janine in the morning (EYE-CAR RENTAL MANAGER) to steady your nerves or to get rid of a hangover? 0 09/19/2021 CAGE Questionnaire Score 0 022 Utilities Answer Date Recorded In the past 12 months has e [employer], gas, oil, or water company threatened to [...] 04/22/2025 9:00 AM EST Ancillary Procedure [facility] [place] [address] [place] [address] documented as of this encounter Goals Goal Patient Goal Type Associated Problems Recent Progress Patient-Stated? Author LVAD Short Term Goal General On track( 024 11:53 AM EDT) Yes Katrin Oviedo RN Note: - 07/04/23: Patient states he wants to attend a wedding in November in [place] LVAD [facility] Goal General [...] Blood Venous blood specimen / Unknown 02/10/2025 [facility] Provider POINT OF CARE TEST ENTER/SHERIF T ORDERABLES Final Result documented in this encounter Visit Diagnoses Diagnosis LVAD (left ventricular assist device) present ([facility])- Primary Anticoagulant [...] documented as of this encounter Care Teams Account Liaison Relationship Specialty Start Date End Date Herberth Perez MD [address] [place] [address] [place] [address] PCP - General 07/17/20 Gracia Petersen APRN [address] [place] [address] Nurse Practitioner Internal Medicine 08/06/20 Yunior Solorzano MD [address] [place] [address] Consulting Physician Gastroenterology 07/18/22 Ross Baez DO [address] [address] Surgeon Cardiothoracic Surgery 07/18/22 Edith Aleman, INSIDE SALES AGENT None VAD Coordinator 10/14/24 documented as of this encounter
--- OUTSIDE RECORDS SUMMARY | 2025-03-03 10:22 | XMS_ITS | Encounter Summary ---
Author Organization [facility] Address [address] [place] [address] Care Team Providers Care Writing Tutor Name Role Phone Herberth Perez MD Primary Care Provider [phone] Gracia Petersen DARK ROOM ATTENDANT Unavailable [phone] Yunior Solorzano MD Unavailable [phone] Ross Baez DO Unavailable [phone] Edith Aleman RN Unavailable Unavailable Reason for Visit * Reason Onset Date Comments HCN - Patient Message 02/03/2025 Encounter Details Date Type Department Care Team (Late st Contact Info) Description 02/03/2025 Telephone [facility] [place] [facility] [address] [facility] [place] [address] Cierra Orellana MD [address] [place] [address] HCN - Patient Message Social [...] drink first t janine in the morning (EYE-SPEARER) to steady your nerves or to get [...] PM EST Clinical Concern/Question Reason for Call: [facility] need orders updated, they need verification on what IV product the provider Is requesting and also the dosing. Please update and fax back to # [phone] Best contact number: Other: [phone] Optimal time of day to reach caller: ANYTIME Additional comments/information from caller: None Note: Please do not reply to this message. Follow-up communication and further actions as a result of this message need to be communicated with the patient directly, if the patient is not active onMyChart. If the patient is active on MyChart, they will receive notification of the communication/outcome via Whatser. documented in this encounter Plan of Treatment Upcoming Encounters Date Type Department Care Team (Late st Contact Info) Description 04/22/2025 9:00 AM EST Ancillary Procedure [facility] [place] [facility] [address] [place] [address] documented as of this encounter Goals Goal Patient Goal Type Associated Problems Recent Progress Patient-Stated? Author LVAD Short Term Goal General On track( 024 11:53 AM EDT) Yes Katrin Oviedo, RN Note: - 07/04/23: Patient states he wants to attend a wedding in November in [place] LVAD Mattress Filler Goal General On track( 024 11:53 AM [...] documented as of this encounter Care Teams Writing Tutor Relationship Specialty Start Date End Date Herberth Perez MD [address] [place] [address] [place] [address] PCP - General 07/17/20 Gracia Petersen APRN [address] [place] [address] Nurse Practitioner Internal Medicine 08/06/20 Yunior Solorzano MD [address] [place] [address] Consulting Physician Gastroenterology 07/18/22 Ross Baez, DO [address] [address] Surgeon Cardiothoracic Surgery 07/18/22 Edith Aleman, SCHEDULER CONVEYOR None VAD Coordinator 10/14/24 documented as of this encounter
--- OUTSIDE RECORDS SUMMARY | 2025-03-03 10:22 | XMS_ITS | Encounter Summary ---
Author Organization [facility] Address [address] [place] [address] Care Team Providers Care Library Historian Name Role Phone Herberth Perez MD Primary Care Provider [phone] Gracia Petersen HYPERION ESSBASE DEVELOPER Unavailable [phone] Yunior Solorzano MD Unavailable [phone] Ross Baez DO Unavailable [phone] Edith Aleman RN Unavailable Unavailable Encounter Details Date Type Department Care Team (Late st Contact Info) Description 01/29/2025 [facility] [place] [facility] [address] [place] [address] Edith Aleman, SUPERVISOR FILTER ASSEMBLY None Low iron (Primary Dx); Iron deficiency [...] drink first t janine in the morning (EYE-L D RN) to steady your nerves or to get [...] Description 04/22/2025 9:00 AM EST Ancillary Procedure [facility] [place] [address] [place] [address] documented as of this encounter Goals Goal Patient Goal Type Associated Problems Recent Progress Patient-Stated? Author LVAD Short Term Goal General On track( 11:53 AM EDT) Yes Katrin Oviedo RN Note: - 07/04/23: Patient states he wants to attend a wedding in November in [place] LVAD Office Rep Goal General On track( 11:53 AM EDT) [...] documented as of this encounter Care Teams Library Historian Relationship Specialty Start Date End Date Herberth Perez MD [address] [place] [address] [place] [address] PCP - General 07/17/20 Gracia Petersen APRN [address] [place] [address] Nurse Practitioner Internal Medicine 08/06/20 Yunior Solorzano MD [address] [place] [address] Consulting Physician Gastroenterology 07/18/22 Ross Baez, DO [address] [address] Surgeon Cardiothoracic Surgery 07/18/22 Edith Aleman, SUPERVISOR FILTER ASSEMBLY None VAD Coordinator 10/14/24 documented as of this encounter
--- OUTSIDE RECORDS SUMMARY | 2025-03-03 10:22 | XMS_ITS | Encounter Summary ---
Author Organization [facility] Address [address] [place] [address] Care Team Providers Care Dishcloth Folder Name Role Phone Herberth Perez MD Primary Care Provider [phone] Gracia Petersen JOINTER OPERATOR Unavailable [phone] Yunior Solorzano MD Unavailable [phone] Ross Baez DO Unavailable [phone] Edith Aleman RN Unavailable Unavailable Encounter Details Date Type Department Care Team (Latest Contact Info) Description 01/28/2025 Anticoagulation - Warfarin Visit [facility] [place] [facility] [address] [facility] 1st Floor [address] [place] [address] Edith Aleman, SALES RECRUITMENT SPECIALIST None LVAD (left ventricular assist device) present ([facility]) (Primary Dx); Anticoagulant long-term use [...] drink first t janine in the morning (EYE-INDUSTRIAL PLANT CUSTODIAN) to steady your nerves or to get rid of a hangover? 0 09/19/2021 CAGE Questionnaire Score 0 022 Utilities Answer Date Recorded In the past 12 months has e [employer], gas, oil, or water company threatened to [...] Description 04/22/2025 9:00 AM EST Ancillary Procedure [facility] [place] [address] [place] [address] documented as of this encounter Goals Goal Patient Goal Type Associated Problems Recent Progress Patient-Stated? Author LVAD Short Term Goal General On track( 024 11:53 AM EDT) Yes Katrin Oviedo RN Note: - 07/04/23: Patient states he wants to attend a wedding in November in [place] LVAD [facility] Goal General [...] Blood Venous blood specimen / Unknown 01/27/2025 [facility] Provider POINT OF CARE TEST ENTER/SHERIF T ORDERABLES Final Result documented in this encounter Visit Diagnoses Diagnosis LVAD (left ventricular assist device) present ([facility])- Primary Anticoagulant long-term use Encounter [...] documented as of this encounter Care Teams Dishcloth Folder Relationship Specialty Start Date End Date Herberth Perez MD [address] [place] [address] [place] [address] PCP - General 07/17/20 Gracia Petersen APRN [address] [place] [address] Nurse Practitioner Internal Medicine 08/06/20 Yunior Solorzano MD [address] [place] [address] Consulting Physician Gastroenterology 07/18/22 Ross Baez DO [address] [address] Surgeon Cardiothoracic Surgery 07/18/22 Edith Aleman, SALES RECRUITMENT SPECIALIST None VAD Coordinator 10/14/24 documented as of this encounter
--- OUTSIDE RECORDS SUMMARY | 2025-03-03 10:22 | XMS_ITS | Encounter Summary ---
Author Organization [facility] Address [address] [place] [address] Care Team Providers Care Hospital Clerk Name Role Phone Herberth Perez MD Primary Care Provider [phone] Gracia Petersen EPIC CUPID SPECIALISTS Unavailable [phone] Yunior Solorzano MD Unavailable [phone] Ross Baez DO Unavailable [phone] Edith Aleman RN Unavailable Unavailable Encounter Details Date Type Department Care Team (Latest Contact Info) Description 02/03/2025 Anticoagulation - Warfarin Visit [facility] [place] [facility] [address] [place] [address] Edith Aleman, TIRE VULCANIZER None LVAD (left ventricular assist device) present ([facility]) (Primary Dx); Anticoagulant long-term use Social History [...] drink first t janine in the morning (EYE-DEBEAKER) to steady your nerves or to get rid of a hangover? 0 09/19/2021 CAGE Questionnaire Score 0 022 Utilities Answer Date Recorded In the past 12 months has e [employer], gas, oil, or water [employer] threatened to shut off services in your [...] Description 04/22/2025 9:00 AM EST Ancillary Procedure [facility] [place] [address] [place] [address] documented as of this encounter Goals Goal Patient Goal Type Associated Problems Recent Progress Patient-Stated? Author LVAD Short Term Goal General On track( 024 11:53 AM EDT) Yes Katrin Oviedo RN Note: - 07/04/23: Patient states he wants to attend a wedding in November in [place] LVAD Skilled Nursing Goal General On track( [...] Blood Venous blood specimen / Unknown 02/02/2025 [facility] Provider POINT OF CARE TEST ENTER/SHERIF T ORDERABLES Final Result documented in this encounter Visit Diagnoses Diagnosis LVAD (left ventricular assist device) present ([facility])- Primary Anticoagulant long-term use Encounter for long-term [...] documented as of this encounter Care Teams Hospital Clerk Relationship Specialty Start Date End Date Herberth Perez MD [address] [place] [address] [place] [address] PCP - General 07/17/20 Gracia Petersen APRN [address] [place] [address] Nurse Practitioner Internal Medicine 08/06/20 Yunior Solorzano MD [address] [place] [address] Consulting Physician Gastroenterology 07/18/22 Ross Baez DO [address] [address] Surgeon Cardiothoracic Surgery 07/18/22 Edith Aleman, TIRE VULCANIZER None VAD Coordinator 10/14/24 documented as of this encounter
--- OUTSIDE RECORDS SUMMARY | 2025-03-03 10:22 | XMS_ITS | Encounter Summary ---
Author Organization Healthcare Address [address] [place] [address] Care Team Providers Care Chicken Cutter Name Role Phone Herberth Perez MD Primary Care Provider [phone] Gracia Petersen GERIATRIC NURSE Unavailable [phone] Yunior Solorzano MD Unavailable [phone] Ross Baez DO Unavailable [phone] Edith Aleman RN Unavailable Unavailable Encounter Details Date Type Department Care Team (Late st Contact Info) Description 02/03/2025 [facility] [place] [address] [place] [address] Edith Aleman, MANAGER UNION None Low iron; Iron deficiency Social History [...] any time in the past 12 m [facility], were you homeless or [...] first t janine in the morning (EYE-HAND POTTER) to steady your nerves or to get [...] Description 04/22/2025 9:00 AM EST Ancillary Procedure [place] [facility] [place] [address] [place] [address] documented as of this encounter Goals Goal Patient Goal Type Associated Problems Recent Progress Patient-Stated? Author LVAD Short Term Goal General On track( 024 11:53 AM EDT) Yes Katrin Oviedo, RN Note: - 07/04/23: Patient states he wants to attend a wedding in November in [place] LVAD [facility] Goal General On track( 024 [...] documented as of this encounter Care Teams Chicken Cutter Relationship Specialty Start Date End Date Herberth Perez MD [address] [place] [address] [place] [address] PCP - General 07/17/20 Gracia Petersen APRN [address] [place] [address] Nurse Practitioner Internal Medicine 08/06/20 Yunior Solorzano MD [address] [place] [address] Consulting Physician Gastroenterology 07/18/22 Ross Baez, [address] [phone] Surgeon Cardiothoracic Surgery 07/18/22 Edith Aleman, MANAGER UNION None VAD Coordinator 10/14/24 documented as of this encounter
--- OUTSIDE RECORDS SUMMARY | 2025-03-03 10:22 | XMS_ITS | Encounter Summary ---
Author Organization [employer] ([place], [place], [place], [place], [place]) Address [address] [place] [address] Care Team Providers Care Mft Name Role Phone Unavailable Primary Care Provider Unavailabl e Encounter Details Date Type Department Care Team (Late st Contact Info) Description 04/12/2019 Transcribed Document [facility] [place] [facility] [place] [address] ProviderMg MD [facility] [place] [place] [address] Social History Tobacco Use Types Packs/Day Years Used Date Smoking Tobacco: Never Assessed Sex and Gender Information Value Date Recorded Sex Assigned at Not on file Legal Sex Male 1:09 PM CDT Gender Identity Not on file Sexual Orientation Not on file documented as of this encounter Miscellaneous Notes * Cerner Conversion Note - Historical ProviderMD - 04/12/2019 11:57 AM FLORAL DEPARTMENT SPECIALIST Therapy Screen, PT Entered On: 04/12/2019 11:59 EST Performed On: 04/12/2019 11:57 EST by PAUL GARCES PT Therapy Screen, PT Medical Chart Reviewed : Yes Person Providing Information : Nurse, Patient Screen Completed : Yes Recommendation for Evaluation, PT : None Recommendations Upon Discharge : None PAUL GARCES PT - 04/12/2019 11:57 EST Electronically signed by Jackie [facility] Conversion Metal Casting Trades Worker Cerner at 06/19/2022 11:04 PM CDT documented in this encounter Plan of Treatment Not on file documented as of this encounter Visit Diagnoses Not on filedocumented in this encounter
--- OUTSIDE RECORDS SUMMARY | 2025-03-03 10:23 | XMS_ITS | Encounter Summary ---
Author Organization [employer] ([place], [place], [place], [place], [place]) Address [address] [place] [address] Care Team Providers Care Process Development Associate Name Role Phone Unavailable Primary Care Provider Unavailabl e Encounter Details Date Type Department Care Team (Late st Contact Info) Description 05/08/2019 Transcribed Document [facility] [place] [address] [place] [address] ProviderMg MD [facility] [place], [place] [address] Social History Tobacco Use Types Packs/Day Years Used Date Smoking Tobacco: Never Assessed Sex and Gender Information Value Date Recorded Sex Assigned at Not on file Legal Sex Male 1:09 PM CDT Gender Identity Not on file Sexual Orientation Not on file documented as of this encounter Miscellaneous Notes * Cerner Conversion Note - Historical ProviderMD - 05/08/2019 2:00 AM SECOND LANGUAGE TUTOR Senior Nurse Manager Details Entered On: 05/08/2019 4:59 EST Performed [...]
--- OUTSIDE RECORDS SUMMARY | 2025-03-03 10:23 | XMS_ITS | Encounter Summary ---
Author Organization [employer] ([place], [place], [place], [place], [place]) Address [address] [place] [address] Care Team Providers Care Brokerage Clerk Name Role Phone Unavailable Primary Care Provider Unavailabl e Encounter Details Date Type Department Care Team (Late st Contact Info) Description 05/03/2019 Transcribed Document [facility] Family Medicine [address] [place] [address] ProviderMg MD [facility] [place], [place] [address] Social History Tobacco Use Types Packs/Day Years Used Date Smoking Tobacco: Never Assessed Sex and Gender Information Value Date Recorded Sex Assigned at Not on file Legal Sex Male 1:09 PM CDT Gender Identity Not on file Sexual Orientation Not on file documented as of this encounter Miscellaneous Notes * Cerner Conversion Note - Historical ProviderMD - 05/03/2019 10:49 AM SADDLE CUTTER Therapy Screen, PT Entered On: 05/03/2019 10:50 [...] - 05/03/2019 10:49 EST Electronically signed by Jackie [facility] Conversion Web Analytics Developer Cerner at 06/19/2022 11:03 PM CDT documented in this encounter Plan of Treatment Not on file documented as of this encounter Visit Diagnoses Not on filedocumented in this encounter
--- OUTSIDE RECORDS SUMMARY | 2025-03-03 10:23 | XMS_ITS | Encounter Summary ---
Author Organization [employer] (Inspect [employer]) ([place], [place], [place], [place], [place]) Address [address] [place] [address] Care Team Providers Care Customer Professional Name Role Phone Unavailable Primary Care Provider Unavailabl e Encounter Details Date Type Department Care Team (Late st Contact Info) Description 04/13/2019 Transcribed Document [facility] [place] [facility] [place] [address] ProviderMg MD [facility] [place] [address] Social History Tobacco Use Types Packs/Day Years Used Date Smoking Tobacco: Never Assessed Sex and Gender Information Value Date Recorded Sex Assigned at Not on file Legal Sex Male 1:09 PM CDT Gender Identity Not on file Sexual Orientation Not on file documented as of this encounter Miscellaneous Notes * Cerner Conversion Note - Mg ProviderMD - 04/13/2019 12:36 PM CLEARANCE DIVER Nursing Discharge Summary Entered On: 04/13/2019 12:37 EST Performed On: 04/13/2019 12:36 EST by Peg Huynh register in chancery Documentation Discharge Date/Time : 04/13/2019 13:15 EST Patient Disposition, General : Discharge Discharge To : Home with ambulatory/outpatient follow-up Peg Huynh RN - 04/13/2019 12:36 EST Electronically signed by Jackie [facility] Conversion Wall Washer Jessica at 06/19/2022 11:05 PM CDT documented in this encounter Plan of Treatment Not on file documented as of this encounter Visit Diagnoses Not on filedocumented in this encounter
--- OUTSIDE RECORDS SUMMARY | 2025-03-03 10:23 | XMS_ITS | Encounter Summary ---
Author Organization [employer] ([place], [place], [place], [place], [place]) Address [address] [place] [address] Care Team Providers Care Agricultural Production Engineer Name Role Phone Unavailable Primary Care Provider Unavailabl e Encounter Details Date Type Department Care Team (Late st Contact Info) Description 05/08/2019 Transcribed Document [facility] [place] [facility] [place] [address] ProviderMg MD [facility] [place] [address] Social History Tobacco Use Types Packs/Day Years Used Date Smoking Tobacco: Never Assessed Sex and Gender Information Value Date Recorded Sex Assigned at Not on file Legal Sex Male 1:09 PM CDT Gender Identity Not on file Sexual Orientation Not on file documented as of this encounter Miscellaneous Notes * Cerner Conversion Note - Historical ProviderMD - 05/08/2019 5:00 AM SUPERVISING ARCHITECT Height and Weight, Routine Entered On: 05/08/2019 6:49 EST Performed On: 05/08/2019 5:00 EST by Reyna Nicolas RN Height and Weight, Routine Routine Weight Source : Standing scale Routine Weight Entry Format : [place] Routine Weight, Pounds : 236 lb Routine Weight, Ounces : 7 oz Routine Weight Calculation : 107.47 kg Height Source : Stated Height Entry Format : [place] Height, Feet : 6 ft Height, Inches : 0 Inch Clinical Height : 182.88 cm Body Surface Area (BSA), Routine : 2.29 m2 Body Mass Index (BMI), Routine : 32.13 kg/m2 Reyna Nicolas RN - 05/08/2019 6:47 EST Electronically signed by Jackie [facility] Conversion Continuous Improvement Intern Cerner at 06/19/2022 11:14 PM CDT documented in this encounter Plan of Treatment Not on file documented as of this encounter Visit Diagnoses Not on filedocumented in this encounter
--- OUTSIDE RECORDS SUMMARY | 2025-03-03 10:23 | XMS_ITS | Encounter Summary ---
Author Organization [employer] ([place], [place], [place], [place], [place]) Address [address] [place] [address] Care Team Providers Care Benefits Consulting Analyst Name Role Phone Unavailable Primary Care Provider Unavailabl e Encounter Details Date Type Department Care Team (Late st Contact Info) Description 05/08/2019 Transcribed Document [facility] [place] [facility] [place] [address] ProviderMg MD [facility] [place] [address] Social History Tobacco Use Types Packs/Day Years Used Date Smoking Tobacco: Never Assessed Sex and Gender Information Value Date Recorded Sex Assigned at Not on file Legal Sex Male 1:09 PM CDT Gender Identity Not on file Sexual Orientation Not on file documented as of this encounter Miscellaneous Notes * Cerner Conversion Note - Historical ProviderMD - 05/08/2019 5:00 AM DIRECTOR OF ENTERPRISE APPLICATIONS Chart Check - Review Order Profile Entered On: 05/08/2019 4:58 EST Performed On: 05/08/2019 5:00 EST by Reyna Nicolas RN Chart Check All Active Orders Reviewed : Yes Reyna Nicolas RN - 05/08/2019 4:58 EST Electronically signed by Jackie [facility] Conversion Senior Vice President And Chief Information Officer Heroner at 06/19/2022 11:14 PM CDT documented in this encounter Plan of Treatment Not on file documented as of this encounter Visit Diagnoses Not on filedocumented in this encounter
--- OUTSIDE RECORDS SUMMARY | 2025-03-03 10:23 | XMS_ITS | Encounter Summary ---
Author Organization [employer] ([place], [place], [place], [place], [place]) Address [address] [place] [address] Care Team Providers Care Supervisor Electronics Processing Name Role Phone Unavailable Primary Care Provider Unavailabl e Encounter Details Date Type Department Care Team (Late st Contact Info) Description 2019 Transcribed Document [facility] [place] [facility] [place] [address] ProviderMg MD [facility] [place] [address] Social History Tobacco Use [...] Mg Ritchie MD - 2019 5:45 PM MATERIALS TECH Patient: JOSE PEARSON Age: 48 years Sex: [...] arrange for heart transplant team at [facility]. I had a long discussion with him and his regarding above plan and they feel comfortable going home today.. Electronically signed by Morales Mejia Conversion Section Leader And Machine Setter Jessica at 06/19/2022 10:48 PM CDT documented in this encounter Plan of Treatment Not on file documented as of this encounter Visit Diagnoses Not on filedocumented in this encounter
--- OUTSIDE RECORDS SUMMARY | 2025-03-03 10:23 | XMS_ITS | Encounter Summary ---
Author Organization [employer] ([place], [place], [place], [place], [place]) Address [address] [place] [address] Care Team Providers Care Metal Checker Name Role Phone Unavailable Primary Care Provider Unavailabl e Encounter Details Date Type Department Care Team (Late st Contact Info) Description 04/11/2019 Transcribed Document [facility] Medicine [facility] [place] [address] ProviderMg MD [facility] [place] [address] Social History Tobacco Use Types Packs/Day Years Used Date Smoking Tobacco: Never Assessed Sex and Gender Information Value Date Recorded Sex Assigned at Not on file Legal Sex Male 1:09 PM CDT Gender Identity Not on file Sexual Orientation Not on file documented as of this encounter Miscellaneous Notes * Cerner Conversion Note - Mg ProviderMD - 04/11/2019 6:01 PM DISTANCE LEARNING ADMINISTRATOR Cardiac and Pulmonary Outpatient [place] Entered On: 04/19/2019 14:17 EST Performed On: 04/19/2019 14:17 EST by EDITH CHAVIS RN Cardiac and Pulmonary Outpatient [place] Phase 2 Cardiac Rehab Criteria Met : Heart failure (HF) Cardiac Outpatient Rehab Evaluation Comment : Order faxed to [facility] due to pts location. EDITH CHAVIS RN - 04/19/2019 14:17 EST Electronically signed by Jackie [facility] Conversion Soup Person Cerner at 06/19/2022 11:06 PM CDT documented in this encounter Plan of Treatment Not on file documented as of this encounter Visit Diagnoses Not on filedocumented in this encounter
--- OUTSIDE RECORDS SUMMARY | 2025-03-03 10:23 | XMS_ITS | Encounter Summary ---
Author Organization [employer] ([place], [place], [place], [place], [place]) Address [address] [place] [address] Care Team Providers Care Sex Offender Treatment Professional Name Role Phone Unavailable Primary Care Provider Unavailabl e Encounter Details Date Type Department Care Team (Late st Contact Info) Description 05/08/2019 Transcribed Document [facility] [place] [facility] [place] [address] ProviderMg MD [facility] [place] [address] Social History Tobacco Use Types Packs/Day Years Used Date Smoking Tobacco: Never Assessed Sex and Gender Information Value Date Recorded Sex Assigned at Not on file Legal Sex Male 1:09 PM CDT Gender Identity Not on file Sexual Orientation Not on file documented as of this encounter Miscellaneous Notes * Cerner Conversion Note - Historical ProviderMD - 05/08/2019 5:00 PM CIVIL CLERK Chart Check - Review Order Profile [...]
--- OUTSIDE RECORDS SUMMARY | 2025-03-03 10:23 | XMS_ITS | Encounter Summary ---
Author Organization [employer] ([place], [place], [place], [place], [place]) Address [address] [place] [address] Care Team Providers Care Icing And Glaze Maker Name Role Phone Unavailable Primary Care Provider Unavailabl e Encounter Details Date Type Department Care Team (Late st Contact Info) Description 04/15/2019 Transcribed Document [place] [facility] [place] [address] ProviderMg MD [address] [place] [id number] Social History Tobacco Use Types Packs/Day Years Used Date Smoking Tobacco: Never Assessed Sex and Gender Information Value Date Recorded Sex Assigned at Not on file Legal Sex Male 1:09 PM CDT Gender Identity Not on file Sexual Orientation Not on file documented as of this encounter Miscellaneous Notes * Cerner Conversion Note - Historical ProviderMD - 04/15/2019 11:53 AM FISCAL CLERK UM Authorization Entered On: 04/15/2019 11:53 EST Performed On: 04/15/2019 11:53 EST by CHARLA BARRAZA RN-Utilization Review Primary Insurance Authorization Authorization and Policy Numbers : Insurance 1 Health Plan: [employer] Policy Number: [id number] Authorization Number: Insurance 2 Health Plan: MEDICARE Policy Number: [id number] Authorization Number: Insurance Primary Name : Ruben [id number] Authorization Status-Primary : Awaiting callback Authorized Service Begin Date-Primary : 04/11/2019 EST Historical Authorization Comments-Primary : Comment 1: Clinicals and ARC Administrators form faxed to [facility]. (MARLENE THORNTON Rn-Utilization Review 04/12/2019 14:39) CHARLA BARRAZA RN-Utilization Review - 04/15/2019 11:53 EST documented in this encounter Plan of Treatment Not on file documented as of this encounter Visit Diagnoses Not on filedocumented in this encounter
--- OUTSIDE RECORDS SUMMARY | 2025-03-03 10:23 | XMS_ITS | Encounter Summary ---
Author Organization [employer] ([place], [place], [place], [place], [place]) Address [address] [place] [address] Care Team Providers Care Cardiology Consultants Name Role Phone Unavailable Primary Care Provider Unavailabl e Encounter Details Date Type Department Care Team (Late st Contact Info) Description 05/07/2019 Transcribed Document [facility] [place] Medicine [address] [place] [address] ProviderMg [place] [address] Social History Tobacco Use Types Packs/Day Years Used Date Smoking Tobacco: Never Assessed Sex and Gender Information Value Date Recorded Sex Assigned at Not on file Legal Sex Male 1:09 PM CDT Gender Identity Not on file Sexual Orientation Not on file documented as of this encounter Miscellaneous Notes * Cerner Conversion Note - Historical ProviderMD - 05/07/2019 1:45 PM REGISTERED NURSE FETAL Spiritual Care Short Form Entered On: 05/07/2019 17:02 EST Performed On: 05/07/2019 13:45 EST by BETITO PRASAD Chaplain-Non Cert General Information, Spiritual Care Spiritual Care Referred by : Spout Tender initiated Reason for Visit : Initial Ministry Provided to : Patient, Family/Significant other Intervention/Comment/Summary Points : Routine visit conducted by Spiritual Sales Representative Education Courses BETITO Red Chaplain-Non Cert - 05/07/2019 17:01 EST documented in this encounter Plan of Treatment Not on file documented as of this encounter Visit Diagnoses Not on filedocumented in this encounter
--- OUTSIDE RECORDS SUMMARY | 2025-03-03 10:23 | XMS_ITS | Encounter Summary ---
Author Organization [employer] ([place], [place], [place], [place], [place]) Address [address] [place] [address] Care Team Providers Care Stress Analyst Name Role Phone Unavailable Primary Care Provider Unavailabl e Encounter Details Date Type Department Care Team (Late st Contact Info) Description 05/09/2019 Transcribed Document [facility] [place] [facility] [place] [address] ProviderMg MD [facility] [place] [address] Social History Tobacco Use Types Packs/Day Years Used Date Smoking Tobacco: Never Assessed Sex and Gender Information Value Date Recorded Sex Assigned at Not on file Legal Sex Male 1:09 PM CDT Gender Identity Not on file Sexual Orientation Not on file documented as of this encounter Miscellaneous Notes * Cerner Conversion Note - Historical ProviderMD - 05/09/2019 2:00 AM COAL SHOOTER Detective Narcotics And Vice Details Entered On: 05/09/2019 1:41 EST Performed [...]
--- OUTSIDE RECORDS SUMMARY | 2025-03-03 10:23 | XMS_ITS | Encounter Summary ---
Author Organization [employer] ([place], [place], [place], [place], [place]) Address [address] [place] [address] Care Team Providers Care Floor Technician Name Role Phone Unavailable Primary Care Provider Unavailabl e Encounter Details Date Type Department Care Team (Late st Contact Info) Description 05/06/2019 Transcribed Document [facility] [place] [facility] [place] [address] ProviderMg MD [address] [place] [address] Social History Tobacco Use Types Packs/Day Years Used Date Smoking Tobacco: Never Assessed Sex and Gender Information Value Date Recorded Sex Assigned at Not on file Legal Sex Male 1:09 PM CDT Gender Identity Not on file Sexual Orientation Not on file documented as of this encounter Miscellaneous Notes * Cerner Conversion Note - Mg ProviderMD - 05/06/2019 12:11 PM SUPERVISOR CUTTING AND BONING UM Authorization Entered On: 05/06/2019 12:12 EST Performed On: 05/06/2019 12:11 EST by ARMANDO SHANNON RN-Utilization Review Primary Insurance Authorization Authorization and Policy Numbers : Insurance 1 Health Plan: [facility] Policy Number: Authorization Number: Insurance Primary Name : [facility] Administators Authorization Status-Primary : Admit approved Authorization Number-Primary : [id number] Authorized Service Begin Date-Primary : 05/03/2019 EST Authorization Comments-Primary : Uploaded continuing stay clinicals (05/06/19) to [facility] via [employer]. Historical Authorization Comments-Primary : Comment 1: Per [facility], admit approved with auth #[id number] given from 05/03-05/05/19. Next review date 05/06/19. (ARMANDO SHANNON RN-Utilization Review 05/06/2019 08:05) Comment 2: Uploaded clinicals to [facility] administrators via [employer]. Manually faxed ARC form. (MIRTHA, ARMANDO, RN-Utilization Review 05/03/2019 13:31) ARMANDO SHANNON RN-Utilization Review - 05/06/2019 12:11 EST documented in this encounter Plan of Treatment Not on file documented as of this encounter Visit Diagnoses Not on filedocumented in this encounter
--- OUTSIDE RECORDS SUMMARY | 2025-03-03 10:23 | XMS_ITS | Encounter Summary ---
Author Organization [employer] ([place], [place], [place], [place], [place]) Address [address] [place] [address] Care Team Providers Care Plant Maintenance Engineer Name Role Phone Unavailable Primary Care Provider Unavailabl e Encounter Details Date Type Department Care Team (Late st Contact Info) Description 04/17/2019 Transcribed Document [facility] [place] [facility] [place] [address] ProviderMg MD [facility] [place] [id number] Social History Tobacco Use Types Packs/Day Years Used Date Smoking Tobacco: Never Assessed Sex and Gender Information Value Date Recorded Sex Assigned at Not on file Legal Sex Male 1:09 PM CDT Gender Identity Not on file Sexual Orientation Not on file documented as of this encounter Miscellaneous Notes * Cerner Conversion Note - Mg ProviderMD - 04/17/2019 12:18 PM SLICE PLUG CUTTER OPERATOR UM Authorization Entered On: 04/17/2019 12:19 EST Performed On: 04/17/2019 12:18 EST by Trudi Gaona Rn-Utilization Review Primary Insurance Authorization Authorization and Policy Numbers : Insurance 1 Health Plan: [employer] Policy Number: [id number] Authorization Number: [id number] Insurance 2 Health Plan: MEDICARE Policy Number: [id number] Authorization Number: Insurance Primary Name : Ruben [id number] Authorization Status-Primary : Admit approved Authorization Number-Primary : [id number] Number of Days Authorized-Primary : 1 Day(s) Authorized Service Begin Date-Primary : 04/11/2019 EST Authorized Service End Date-Primary : 04/12/2019 EST Historical Authorization Comments-Primary : Comment 1: Ruben approved per Liliana from [facility] approved inpt (CHARLA BARRAZA RN-Utilization Review 04/17/2019 09:55) Comment 2: Clinicals and ARC Administrators form faxed to [facility]. (MARLENE THORNTON, Rn-Utilization Review 04/12/2019 14:39) Trudi Gaona Rn-Utilization Review - 04/17/2019 12:18 EST documented in this encounter Plan of Treatment Not on file documented as of this encounter Visit Diagnoses Not on filedocumented in this encounter
--- OUTSIDE RECORDS SUMMARY | 2025-03-03 10:23 | XMS_ITS | Encounter Summary ---
Author Organization [employer] ([place], [place], [place], [place], [place]) Address [address] [place] [address] Care Team Providers Care Order Packer Name Role Phone Unavailable Primary Care Provider Unavailabl e Encounter Details Date Type Department Care Team (Late st Contact Info) Description 05/05/2019 Transcribed Document [facility] [place] [address] [place] [address] ProviderMg MD [address] [place], [place] [address] Social History Tobacco Use Types Packs/Day Years Used Date Smoking Tobacco: Never Assessed Sex and Gender Information Value Date Recorded Sex Assigned at Not on file Legal Sex Male 1:09 PM CDT Gender Identity Not on file Sexual Orientation Not on file documented as of this encounter Miscellaneous Notes * Cerner Conversion Note - Historical ProviderMD - 05/05/2019 2:00 AM CAMPGROUND ATTENDANT Auxiliary Plant Operator Details Entered On: 05/05/2019 0:59 EST Performed [...]
--- OUTSIDE RECORDS SUMMARY | 2025-03-03 10:23 | XMS_ITS | Encounter Summary ---
Author Organization [employer] ([place], [place], [place], [place], [place]) Address [address] [place] [address] Care Team Providers Care Primary Care Md Name Role Phone Unavailable Primary Care Provider Unavailabl e Encounter Details Date Type Department Care Team (Late st Contact Info) Description 04/12/2019 Transcribed Document [facility] [facility] [address] ProviderMg MD [facility] [place], [place] [id number] Social History Tobacco Use Types Packs/Day Years Used Date Smoking Tobacco: Never Assessed Sex and Gender Information Value Date Recorded Sex Assigned at Not on file Legal Sex Male 1:09 PM CDT Gender Identity Not on file Sexual Orientation Not on file documented as of this encounter Miscellaneous Notes * Cerner Conversion Note - Mg Ritchie MD - 04/12/2019 10:27 AM SHAKER TENDER Patient: JOSE PEARSON Age: 48 years Sex: [...] Pain (Mild 1-3) Xarelto: 10 mg, Oral, [id number] Zofran: 4 mg, IV Push, Q6H, PRN: [...] mg tab 10 mg 1 Tab, Oral, [id number] spironolactone 25 mg tab 25 mg 1 [...] list: All Problems angina / SNOMED CT 870832896 / Confirmed Asthma / SNOMED CT 396156310 / Confirmed Cardiac defibrillator in place / SNOMED CT 9577079137 / Confirmed interrogated at physicians office---02/22/13 pacemaker / SNOMED CT 6536176288 / Confirmed Cardiomyopathy / SNOMED CT 991470367 / Confirmed stroke / SNOMED CT 877629596 / Confirmed he had a stroke when they found the blood clot in valve GERD - Gastro-esophageal reflux disease / SNOMED CT 2091088118 / Confirmed H/O: CVA / SNOMED CT 019244001 / Confirmed Heart failure / SNOMED CT 929329731 / Confirmed History of obstructive sleep apnea / IMO 12951292 / Confirmed high cholesterol / SNOMED CT 92873305 / Confirmed Hyperlipidemia / SNOMED CT 19275051 / Confirmed hypertension / SNOMED CT 8562952258 / Confirmed Hypotension / SNOMED CT 522295012 / Confirmed myocardial infarction / SNOMED CT 45486837 / Confirmed sesonal allergies / SNOMED CT 7091456001 / Confirmed Resolved: At risk for sleep apnea / IMO 09900217 Resolved: Moderate protein-calorie malnutrition / SNOMED CT 249223786 Acute illness or injury related malnutrition r/t hyperthyroidism as evidenced by wt loss of 14# x 2 wks (5.8%) per pt, po intake <50% >/=5 days, moderate subcutaneous fat loss to orbitals Resolved: 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 / SNOMED CT 501277857 treated with blood thinners, Active Problems (16) stroke angina Asthma Cardiac defibrillator in place Cardiomyopathy GERD - Gastro-esophageal reflux disease H/O: CVA Heart failure high cholesterol History of obstructive sleep apnea Hyperlipidemia hypertension Hypotension myocardial infarction pacemaker sesonal allergies Histories Past Medical History: Resolved 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 (901273645): Onset on 04/02/2008 at 37 years. Resolved. Comments: 04/02/2013 EST 8:28 MARIAM - FLAQUITA MARTIN RN treated with blood thinners At risk for sleep apnea (02836302): Resolved. Family History: No family history items [...] EST Height Source Stated Height Entry Format [place] Height/Length, GREEK (ft) 6 ft Height/Length GREEK 2 Inch CLINICALHEIGHT 187.96 cm Routine Weight Source Standing scale Routine Weight Entry Format [place] Routine Weight, Pounds 244 lb Routine Weight, Ounces 7 oz Routine Weight Calculation 111.11 kg Body Mass Index (BMI), Routine 31.45 kg/m2 Body Surface Area (BSA), Routine 2.37 m2 04/11/2019 16:28 EST Height Source Stated Height Entry Format [place] Height/Length, GREEK (ft) 6 ft Height/Length GREEK 2 Inch CLINICALHEIGHT 187.96 cm [place] Body Weight 81 kg Weight Source Standing scale Weight Entry Format [place] Weight Kosovan lb 248 lb CLINICALWEIGHT 112.73 kg Body [...]
--- OUTSIDE RECORDS SUMMARY | 2025-03-03 10:23 | XMS_ITS | Encounter Summary ---
Author Organization [employer] ([place], [place], [place], [place], [place]) Address [address] [place] [address] Care Team Providers Care Material Handling Crew Supervisor Name Role Phone Unavailable Primary Care Provider Unavailabl e Encounter Details Date Type Department Care Team (Late st Contact Info) Description 04/13/2019 Transcribed Document [facility] [place] [facility] [place] [address] ProviderMg MD [facility] [address] Social History Tobacco Use Types Packs/Day Years Used Date Smoking Tobacco: Never Assessed Sex and Gender Information Value Date Recorded Sex Assigned at Not on file Legal Sex Male 1:09 PM CDT Gender Identity Not on file Sexual Orientation Not on file documented as of this encounter Miscellaneous Notes * Cerner Conversion Note - Mg Ritchie MD - 04/13/2019 12:44 PM MOTOR POLARIZER [place] [id number] JOSE PEARSON :1970 Visit Time:04/12/2019 Your Visit Summary Your Care Team Admitting Physician - OS BURDICK MD-CAR Attending Physician - SO BURDICK [...] Where: [address] [place] [address]- Business (1) Medications What How Much When Instructions Next Dose dofetilide (Tikosyn 250 mcg oral capsule) 1 Capsule(s) Oral Two Times A Day Pickup at [facility] 493 cetirizine (cetirizine 10 mg oral [...] 25 Milligram(s) Oral Every Day Pharmacy Information [facility] 493: [address] [place], [place] [phone] Take your medications faithfully. Do NOT skip [...] out more about heart disease, visit the [place] [employer]'s website at www.americanheart.org This information is not intended to replace advice given to you by your health care provider. Make sure you discuss any questions you have with your health care provider. Document Released: 10/04/2004 Document Revised: 07/20/2016 Document Reviewed: 04/16/2014 [employer] Interactive Patient Education ?? 2019 [employer] Inc. Cardiac Rehabilitation What is cardiac rehabilitation? [...] 01/04/2016 Elsevier Interactive Patient Education ?? 2019 ElseKeeppy, Inc. Inc. Emergency Awareness and Preventative Care [...] Assistance with quitting is available by contacting 5-477-CEUINOW. This is a free resource providing counseling, support, and referral. Or you may contact your personal physician. [place] Suicide Prevention Lifeline: The National Suicide Prevention [...] range between ( 1.0 and 7.0 ) [facility] #: 0.93 K/uL -- Normal range between ( 0.24 and 0.82 ) [facility] #: 0.27 K/uL -- Normal range between ( 0.04 and 0.54 ) [facility] %: 13.1 % -- Normal range between [...] ) Urine Bilirubin Dipstick: Negative Urine Specific [place]: 1.018 -- Normal range between ( 1.005 and 1.030 ) Urine Chemistry 04/11/2019 10:27 PM Osmolality Urine: 595 mOsm/kg -- Normal range between ( 250 and 900 ) Sodium Ur [place]: 64 mMole/Liter General Chemistry 04/13/2019 4:05 AM [...] was given the opportunity to ask questions. Patient/Debone Supervisor Name: Patient/Debone Supervisor Signature: Relationship to Patient: Clinician/Hospital Debone Supervisor Signature: Date: Electronically signed by Jackie, [facility] Conversion Oracle Database Administrator Jessica at 06/19/2022 11:10 PM CDT documented in this encounter Plan of Treatment Not on file documented as of this encounter Visit Diagnoses Not on filedocumented in this encounter
--- OUTSIDE RECORDS SUMMARY | 2025-03-03 10:23 | XMS_ITS | Encounter Summary ---
Author Organization [employer] ([place], [place], [place], [place], [place]) Address [address] [place] [address] Care Team Providers Care Home Health Travel Ot Name Role Phone Unavailable Primary Care Provider Unavailabl e Encounter Details Date Type Department Care Team (Late st Contact Info) Description 05/02/2019 Transcribed Document [facility] [place] [facility] [place] [address] ProviderMg MD [facility] [place] [address] Social History Tobacco Use Types Packs/Day Years Used Date Smoking Tobacco: Never Assessed Sex and Gender Information Value Date Recorded Sex Assigned at Not on file Legal Sex Male 1:09 PM CDT Gender Identity Not on file Sexual Orientation Not on file documented as of this encounter Miscellaneous Notes * Cerner Conversion Note - Historical ProviderMD - 05/02/2019 5:00 PM CORRECTIONS NURSE Chart Check - Review Order Profile Entered [...]
--- OUTSIDE RECORDS SUMMARY | 2025-03-03 10:23 | XMS_ITS | Encounter Summary ---
Author Organization [employer] ([place], [place], [place], [place], [place]) Address [address] [place] [address] Care Team Providers Care Warehouse Delivery Driver Name Role Phone Unavailable Primary Care Provider Unavailabl e Encounter Details Date Type Department Care Team (Late st Contact Info) Description 05/04/2019 Transcribed Document [facility] [place] [address] [place] [address] ProviderMg MD [facility] [place] [address] Social History Tobacco Use Types Packs/Day Years Used Date Smoking Tobacco: Never Assessed Sex and Gender Information Value Date Recorded Sex Assigned at Not on file Legal Sex Male 1:09 PM CDT Gender Identity Not on file Sexual Orientation Not on file documented as of this encounter Miscellaneous Notes * Cerner Conversion Note - Historical ProviderMD - 05/04/2019 5:00 AM GUEST LAUNDRY ATTENDANT Height and Weight, Routine Entered On: 05/04/2019 6:35 EST Performed On: 05/04/2019 5:00 EST by Carlos Ojeda RN Height and Weight, Routine Routine Weight Source : Chair scale Routine Weight Entry Format : Metric Routine Weight, Kilograms : 104.5 kg(Converted to: 230 lb 6 oz) Routine Weight Calculation : 104.5 kg Height Source : Stated Height Entry Format : Creek Height, Feet : 6 ft Height, Inches : 0 Inch Clinical Height : 182.88 cm Body Surface Area (BSA), Routine : 2.26 m2 Body Mass Index (BMI), Routine : 31.25 kg/m2 Carlos Ojeda RN - 05/04/2019 6:34 EST Electronically signed by Jackie [facility] Conversion C2 Tactical Analysis Technician Cerner at 06/19/2022 11:02 PM CDT documented in this encounter Plan of Treatment Not on file documented as of this encounter Visit Diagnoses Not on filedocumented in this encounter
--- OUTSIDE RECORDS SUMMARY | 2025-03-03 10:23 | XMS_ITS | Encounter Summary ---
Author Organization [employer] ([place], [place], [place], [place], [place]) Address [address] [place] [address] Care Team Providers Care Operating Engineer Name Role Phone Unavailable Primary Care Provider Unavailabl e Encounter Details Date Type Department Care Team (Late st Contact Info) Description 05/03/2019 Transcribed Document [facility] [place] [address] [place] [address] ProviderMg MD [address] [place], [place] [address] Social History Tobacco Use Types Packs/Day Years Used Date Smoking Tobacco: Never Assessed Sex and Gender Information Value Date Recorded Sex Assigned at Not on file Legal Sex Male 1:09 PM CDT Gender Identity Not on file Sexual Orientation Not on file documented as of this encounter Miscellaneous Notes * Cerner Conversion Note - Historical ProviderMD - 05/03/2019 1:31 PM DIRECTOR OPERATIONS UM Authorization Entered On: 05/03/2019 13:33 EST Performed On: 05/03/2019 13:31 EST by ARMANDO SHANNON RN-Utilization Review Primary Insurance Authorization Authorization and Policy Numbers : Insurance 1 Health Plan: [facility] Policy Number: Authorization Number: Insurance Primary Name : [employer] Authorization Status-Primary : Awaiting callback Authorized Service Begin Date-Primary : 05/03/2019 EST Authorization Comments-Primary : Uploaded clinicals to [employer] administrators via [employer]. Manually faxed [employer] form. Historical Authorization Comments-Primary : No Authorization Comments Found ARMANDO SHANNON RN-Utilization Review - 05/03/2019 13:31 EST documented in this encounter Plan of Treatment Not on file documented as of this encounter Visit Diagnoses Not on filedocumented in this encounter
--- OUTSIDE RECORDS SUMMARY | 2025-03-03 10:23 | XMS_ITS | Encounter Summary ---
Author Organization [employer] ([place], [place], [place], [place], [place]) Address [address] [place] [address] Care Team Providers Care Cutter Grinder Operator Name Role Phone Unavailable Primary Care Provider Unavailabl e Encounter Details Date Type Department Care Team (Late st Contact Info) Description 05/09/2019 Transcribed Document [facility] [place] [facility] [place] [address] ProviderMg MD [facility] [place] [address] Social History Tobacco Use Types Packs/Day Years Used Date Smoking Tobacco: Never Assessed Sex and Gender Information Value Date Recorded Sex Assigned at Not on file Legal Sex Male 1:09 PM CDT Gender Identity Not on file Sexual Orientation Not on file documented as of this encounter Miscellaneous Notes * Cerner Conversion Note - Mg ProviderMD - 05/09/2019 8:56 AM CATALYST IMPREGNATOR On Going Discharge Planning Entered On: 05/09/2019 8:57 EST Performed On: 05/09/2019 8:56 EST by Alyse Townsend Social Worker-Exceptional Student Education Teacher Care Management Progress Note Discharge Arrangements : Patient Post-Acute Information Patient Name: JOSE PEARSON Gender: Male : [birth year] Age: 48 Years No Post-Acute Placement(s) Listed No Post-Acute Service(s) Listed No [place] Referral(s) Listed Alyse Townsend Social Worker-Exceptional Student Education Teacher - 05/09/2019 8:56 EST Narrative Progress Note Narrative Progress Note : 05/08 Per documentation left by Paula Villeda RN CM, referral information was sent to [facility] cardiac transplant program. Historical Progress Note : 05/06 Received order to make referral to [facility] outpatient cardiac transplant program. Contacted [facility] appointment telephone number [phone]. They report the person who typically takes the referrals is unavailable and they will have her contact CM back. CM contact information was provided. They report the referral/facilities coordinator is Kailey PH: [phone]. Alyse Townsend, Linux Systems Analyst-Exceptional Student Education Teacher - 05/07/19 15:01:13 Per RN in Multidisciplinary rounds patient is NPO for scheduled Cardiomems today. Having some nausea after Fe Infusions requested the infusion be held until after procedure so he can eat. CM will follow. TANVIR THAYER Rn-Risk Modeler - 05/06/19 11:03:45 Alyse Townsend Linux Systems Analyst-Exceptional Student Education Teacher - 05/09/2019 8:56 EST documented in this encounter Plan of Treatment Not on file documented as of this encounter Visit Diagnoses Not on filedocumented in this encounter
--- OUTSIDE RECORDS SUMMARY | 2025-03-03 10:23 | XMS_ITS | Encounter Summary ---
Author Organization [employer] ([place], [place], [place], [place], [place]) Address [address] [place] [address] Care Team Providers Care Snuff Box Finisher Name Role Phone Unavailable Primary Care Provider Unavailabl e Encounter Details Date Type Department Care Team (Late st Contact Info) Description 04/12/2019 Transcribed Document [facility] [place] [facility] [place] [address] ProviderMg MD [facility] [place], [place] [id number] Social History Tobacco Use Types Packs/Day Years Used Date Smoking Tobacco: Never Assessed Sex and Gender Information Value Date Recorded Sex Assigned at Not on file Legal Sex Male 1:09 PM CDT Gender Identity Not on file Sexual Orientation Not on file documented as of this encounter Miscellaneous Notes * Cerner Conversion Note - Mg ProviderMD - 04/12/2019 2:39 PM BEHAVIORAL SERVICES TECH UM Authorization Entered On: 04/12/2019 14:40 EST Performed On: 04/12/2019 14:39 EST by MARLENE THORNTON Rn-Utilization Review Primary Insurance Authorization Authorization and Policy Numbers : Insurance 1 Health Plan: [employer] Policy Number: [id number] Authorization Number: Insurance 2 Health Plan: MEDICARE Policy Number: [id number] Authorization Number: Insurance Primary Name : Ruben [...]
--- OUTSIDE RECORDS SUMMARY | 2025-03-03 10:23 | XMS_ITS | Encounter Summary ---
Author Organization [employer] ([place], [place], [place], [place], [place]) Address [address] [place] [address] Care Team Providers Care Boiler Blower Name Role Phone Unavailable Primary Care Provider Unavailabl e Encounter Details Date Type Department Care Team (Late st Contact Info) Description 05/03/2019 Transcribed Document [facility] [place] [facility] [place] [address] ProviderMg MD [facility] [place], [place] [id number] Social History Tobacco Use Types Packs/Day Years Used Date Smoking Tobacco: Never Assessed Sex and Gender Information Value Date Recorded Sex Assigned at Not on file Legal Sex Male 1:09 PM CDT Gender Identity Not on file Sexual Orientation Not on file documented as of this encounter Miscellaneous Notes * Cerner Conversion Note - Mg ProviderMD - 05/03/2019 10:52 AM CHIEF PROJECTIONIST Initial Discharge Planning Entered On: 05/03/2019 10:56 EST Performed On: 05/03/2019 10:52 EST by TANVIR THAYER Rn-Music Producer Initial Assessment I Previously Documented Living Environment : No qualifying data available. Living Situation : Home Patient Lives With : Spouse Emergency Contact #1 : Deidre Pearson Emergency Contact #1 Emergency Contact #1 Relationship : Emergency Contact #2 : none Emergency Contact #2 Phone Number : none Emergency Contact #2 Relationship : none TANVIR THAYER Rn-Music Producer - 05/03/2019 10:52 EST Initial Assessment II Current Home Treatments and Equipment : CPAP TANVIR THAYER Rn-Music Producer - 05/03/2019 10:52 EST Discharge Needs I Anticipated Discharge Date : 05/04/2019 EST Anticipated Discharge To, CM : Home independently Current Home Treatment/Equipment : Current Home Treatment/Equipment No qualifying data available. Post Acute/Home Treatments : CPAP Documentation Status Complete : Yes TANVIR THAYER Rn-Music Producer - 05/03/2019 10:52 EST Discharge Needs II Professional Skilled Services : Professional Skilled Services No qualifying data available. TANVIR THAYER Rn-Music Producer - 05/03/2019 10:52 EST Narrative Note Narrative Note : Patient from MD office. Patient has PAcemaker ICD per nurse in multidisciplinary rounds EF is < 20. Lives with spouse is IADL's has CPap at home. No acute needs identified by CM he is a high risk for readmission. CM will follow. TANVIR THAYER Rn-Music Producer - 05/03/2019 10:52 EST Electronically signed by Morales Mejia Conversion Contract Administration Specialist Cerner at 06/19/2022 10:55 PM CDT documented in this encounter Plan of Treatment Not on file documented as of this encounter Visit Diagnoses Not on filedocumented in this encounter
--- OUTSIDE RECORDS SUMMARY | 2025-03-03 10:23 | XMS_ITS | Encounter Summary ---
Author Organization [employer] ([place], [place], [place], [place], [place]) Address [address] [place] [address] Care Team Providers Care Transportation Superintendent Name Role Phone Unavailable Primary Care Provider Unavailabl e Encounter Details Date Type Department Care Team (Late st Contact Info) Description 05/05/2019 Transcribed Document [facility] [place] [facility] [place] [address] ProviderMg MD [facility] [place], [place] [id number] Social History Tobacco Use Types Packs/Day Years Used Date Smoking Tobacco: Never Assessed Sex and Gender Information Value Date Recorded Sex Assigned at Not on file Legal Sex Male 1:09 PM CDT Gender Identity Not on file Sexual Orientation Not on file documented as of this encounter Miscellaneous Notes * Cerner Conversion Note - Mg Ritchie MD - 05/05/2019 11:16 AM HOOF AND SHOE INSPECTOR Patient: JOSE PEARSON Age: 48 years Sex: [...] 135 mL/Hr, IV Piggyback, Daily Flonase: 1 [place], Nostrils Both, BID Melatonin: 3 mg, Oral, [...] At Bedtime fluticasone 0.05% nasal spray 1 [place], Nostrils Both, BID loratadine 10 mg tab [...] Problem list: Medical angina / SNOMED CT 243164371 / Confirmed Cardiac defibrillator in place / SNOMED CT 1572753116 / Confirmed interrogated at physicians office---02/22/13 pacemaker / SNOMED CT 1351462028 / Confirmed stroke / SNOMED CT 717922104 / Confirmed he had a stroke when they found the blood clot in valve History of obstructive sleep apnea / IMO 83153234 / Confirmed high cholesterol / SNOMED CT 09337196 / Confirmed hypertension / SNOMED CT 0549073027 / Confirmed myocardial infarction / SNOMED CT 47810080 / Confirmed sesonal allergies / SNOMED CT 7168425405 / Confirmed Resolved: At risk for sleep apnea / IMO 28719996 Resolved: 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 / SNOMED CT 399826582 treated with blood thinners, Active Problems (16) [...] Gastrointestinal: Normal bowel sounds. Integumentary: Warm, Dry, Hettinger. Results Review General results Telemetry SR/ST PACS [...]
--- OUTSIDE RECORDS SUMMARY | 2025-03-03 10:23 | XMS_ITS | Encounter Summary ---
Author Organization [employer] ([place], [place], [place], [place], [place]) Address [address] [place] [address] Care Team Providers Care Instructor Physical Education Name Role Phone Unavailable Primary Care Provider Unavailabl e Encounter Details Date Type Department Care Team (Late st Contact Info) Description 06/26/2018 Transcribed Document [facility] [place] [facility] [place] [address] ProviderMg MD [facility] [place] [address] Social History Tobacco Use Types [...] On: 06/26/2018 14:26 EDT by DENVER NICOLE jewel stripper Documentation Discharge Date/Time : 06/26/2018 14:42 EDT [...]
--- OUTSIDE RECORDS SUMMARY | 2025-03-03 10:23 | XMS_ITS | Encounter Summary ---
Author Organization [employer] ([place], [place], [place], [place], [place]) Address [address] [place] [address] Care Team Providers Care Receiving Checker Name Role Phone Unavailable Primary Care Provider Unavailabl e Encounter Details Date Type Department Care Team (Late st Contact Info) Description 05/08/2019 Transcribed Document [facility] [place] Family Medicine [facility] [place] [address] ProviderMg [place] [address] Social History Tobacco Use Types Packs/Day Years Used Date Smoking Tobacco: Never Assessed Sex and Gender Information Value Date Recorded Sex Assigned at Not on file Legal Sex Male 1:09 PM CDT Gender Identity Not on file Sexual Orientation Not on file documented as of this encounter Miscellaneous Notes * [employer]ner Conversion Note - Mg ProviderMD - 05/08/2019 3:22 PM AUTOMATIC BUFFING WHEEL FORMER UM Authorization Entered On: 05/08/2019 15:23 EST Performed On: 05/08/2019 15:22 EST by CHARLA BARRAZA RN-Utilization Review Primary Insurance Authorization Authorization and Policy Numbers : Insurance 1 Health Plan: [facility] Policy Number: Authorization Number: Insurance Primary Name : [employer] [id number] Authorization Status-Primary : Admit approved Authorization Number-Primary : [id number] Number of Days Authorized-Primary : 6 Day(s) Authorized Service Begin Date-Primary : 05/03/2019 EST Authorized Service End Date-Primary : 05/09/2019 EST Authorization Comments-Primary : [employer] approved per Katrin for total of 7 days --- nrd 05/09 Historical Authorization Comments-Primary : Comment 1: Clinicals for CS faxed via Jessica (MARLENE THORNTON Rn-Utilization Review 05/08/2019 14:43) Comment 2: [place] approved per Katrin for 5 days total --- nrd 05/07 (CHARLA BARRAZA, MARYCARMEN-Utilization Review 05/06/2019 13:43) Comment 3: Uploaded continuing stay clinicals (05/06/19) to [facility] via [employer]. (ARMANDO SHANNON, RN-Utilization Review 05/06/2019 12:11) Comment 4: Per [facility], admit approved with auth #[id number] given from 05/03-05/05/19. Next review date 05/06/19. [...]
--- OUTSIDE RECORDS SUMMARY | 2025-03-03 10:23 | XMS_ITS | Encounter Summary ---
Author Organization [employer] ([place], [place], [place], [place], [place]) Address [address] [place] [address] Care Team Providers Care Shredding Machine Knife Changer Name Role Phone Unavailable Primary Care Provider Unavailabl e Encounter Details Date Type Department Care Team (Late st Contact Info) Description 04/12/2019 Transcribed Document [facility] [place] [address] [place] [address] ProviderMg MD [facility] [place] [address] Social History Tobacco Use Types Packs/Day Years Used Date Smoking Tobacco: Never Assessed Sex and Gender Information Value Date Recorded Sex Assigned at Not on file Legal Sex Male 1:09 PM CDT Gender Identity Not on file Sexual Orientation Not on file documented as of this encounter Miscellaneous Notes * Cerner Conversion Note - Historical ProviderMD - 04/12/2019 10:12 PM PIPER INSTALLER Sepsis Screening Tool Entered On: 04/12/2019 22:51 EST Performed On: 04/12/2019 22:12 EST by Duncan Rudolph Rn-Resource Provider Notification Provider Notified of Concerns/Results : Other: Sepsis alert Provider Response : Other: provider is already aware Chain of Command Initiated : Yes Rapid Response Team Called : No Results to Provider Comment : Reported to Charge Nurse Lzizy Duncan Hansen Rn-Resource - 04/12/2019 22:49 EST documented in this encounter Plan of Treatment Not on file documented as of this encounter Visit Diagnoses Not on filedocumented in this encounter
--- OUTSIDE RECORDS SUMMARY | 2025-03-03 10:23 | XMS_ITS | Encounter Summary ---
Author Organization [employer] ([place], [place], [place], [place], [place]) Address [address] [place] [address] Care Team Providers Care Paper Final Inspector Name Role Phone Unavailable Primary Care Provider Unavailabl e Encounter Details Date Type Department Care Team (Late st Contact Info) Description 04/13/2019 Transcribed Document [facility] [place] Family Medicine [facility] [place] [address] ProviderMg MD [facility] [place] [address] Social History Tobacco Use Types Packs/Day Years Used Date Smoking Tobacco: Never Assessed Sex and Gender Information Value Date Recorded Sex Assigned at Not on file Legal Sex Male 1:09 PM CDT Gender Identity Not on file Sexual Orientation Not on file documented as of this encounter Miscellaneous Notes * Cerner Conversion Note - Mg ProviderMD - 04/13/2019 12:46 PM CONSULTANT RN Nursing Discharge Summary Entered On: 04/13/2019 12:46 EST Performed On: 04/13/2019 12:46 EST by Peg Huynh cash grain grower Documentation Discharge Date/Time : 04/13/2019 13:13 EST Patient Disposition, General : Discharge Discharge To : Home with ambulatory/outpatient follow-up Peg Huynh RN - 04/13/2019 12:46 EST Electronically signed by Jackie [facility] Conversion Can Washer Jessica at 06/19/2022 11:04 PM CDT documented in this encounter Plan of Treatment Not on file documented as of this encounter Visit Diagnoses Not on filedocumented in this encounter
--- OUTSIDE RECORDS SUMMARY | 2025-03-03 10:23 | XMS_ITS | Encounter Summary ---
Author Organization [employer] ([place], [place], [place], [place], [place]) Address [address] [place] [address] Care Team Providers Care Boot Trimmer Name Role Phone Unavailable Primary Care Provider Unavailabl e Encounter Details Date Type Department Care Team (Late st Contact Info) Description 05/04/[address] [facility] [place] Family Medicine [facility] [place] [address] ProviderMg MD [facility] [place] [id number] Social History Tobacco Use Types Packs/Day Years Used Date Smoking Tobacco: Never Assessed Sex and Gender Information Value Date Recorded Sex Assigned at Not on file Legal Sex Male 1:09 PM CDT Gender Identity Not on file Sexual Orientation Not on file documented as of this encounter Miscellaneous Notes * Cerner Conversion Note - Mg Ritchie MD - 05/04/2019 11:36 AM JIG BUILDER HELPER Patient: JOSE PEARSON Age: 48 years [...] 20 mg, Oral, At Bedtime Flonase: 1 [place], Nostrils Both, BID Melatonin: 3 mg, Oral, [...] At Bedtime fluticasone 0.05% nasal spray 1 [place], Nostrils Both, BID loratadine 10 mg tab [...] Problem list: Medical angina / SNOMED CT 010332734 / Confirmed Cardiac defibrillator in place / SNOMED CT 5767631477 / Confirmed interrogated at physicians office---02/22/13 pacemaker / SNOMED CT 3155786048 / Confirmed stroke / SNOMED CT 942533035 / Confirmed he had a stroke when they found the blood clot in valve History of obstructive sleep apnea / IMO 30330330 / Confirmed high cholesterol / SNOMED CT 35361777 / Confirmed hypertension / SNOMED CT 5750785258 / Confirmed myocardial infarction / SNOMED CT 65214240 / Confirmed sesonal allergies / SNOMED CT 4483274424 / Confirmed, Active Problems (16) stroke angina [...] Gastrointestinal: Normal bowel sounds. Integumentary: Warm, Dry, [place]. Results Review General results Telemetry SR/ST PACS [...] -Corrected hypomag -Corrected Electronically signed by Jackie [facility] Conversion Luggage Repairer Cerner at 06/19/2022 11:12 PM CDT documented in this encounter Plan of Treatment Not on file documented as of this encounter Visit Diagnoses Not on filedocumented in this encounter
--- OUTSIDE RECORDS SUMMARY | 2025-03-03 10:23 | XMS_ITS | Encounter Summary ---
Author Organization [employer] ([place], [place], [place], [place], [place]) Address [address] [place] [address] Care Team Providers Care Spine Nurse Name Role Phone Unavailable Primary Care Provider Unavailabl e Encounter Details Date Type Department Care Team (Late st Contact Info) Description 05/03/2019 Transcribed Document [facility] [place] [address] [place] [address] ProviderMg MD [address] [place] [address] Social History Tobacco Use Types Packs/Day Years Used Date Smoking Tobacco: Never Assessed Sex and Gender Information Value Date Recorded Sex Assigned at Not on file Legal Sex Male 1:09 PM CDT Gender Identity Not on file Sexual Orientation Not on file documented as of this encounter Miscellaneous Notes * [employer]ner Conversion Note - Historical ProviderMD - 05/03/2019 8:40 AM IT APPLICATION ARCHITECT Therapy Screen, OT Entered On: 05/03/2019 8:59 [...] confirms this. No further skilled OT indicated. NAUHM CORNELIUS OTR/Kaushal - 05/03/2019 8:57 EST documented in this encounter Plan of Treatment Not on file documented as of this encounter Visit Diagnoses Not on filedocumented in this encounter
--- OUTSIDE RECORDS SUMMARY | 2025-03-03 10:23 | XMS_ITS | Encounter Summary ---
Author Organization [employer] ([place], [place], [place], [place], [place]) Address [address] [place] [address] Care Team Providers Care Wall Mirror Department Supervisor Name Role Phone Unavailable Primary Care Provider Unavailabl e Encounter Details Date Type Department Care Team (Late st Contact Info) Description 05/07/2019 Transcribed Document [facility] [place] Family Medicine [facility] [place] [address] ProviderMg MD [facility] [place] [address] Social History Tobacco Use Types Packs/Day Years Used Date Smoking Tobacco: Never Assessed Sex and Gender Information Value Date Recorded Sex Assigned at Not on file Legal Sex Male 1:09 PM CDT Gender Identity Not on file Sexual Orientation Not on file documented as of this encounter Miscellaneous Notes * [employer] Conversion Note - Mg ProviderMD - 05/07/2019 11:30 AM LOADING UNIT OPERATOR POWDER CHARGING Rapid Response Team Documentation Entered On: 05/07/2019 [...] @ this time w no needs from AIR INTELLIGENCE SPECIALIST. Instructed Gracia to call AIR INTELLIGENCE SPECIALIST if further needs arise. Patient Condition at End of Event : No S/S of Acute Distress Patient Disposition Post Event : No change in location/level of care Rapid Response Wall Mirror Department Supervisor #1 : RAJAT NAZARIO, RAJAT RIGGS RN - 05/07/2019 13:07 EST Electronically signed by Jackie [facility] Conversion Sap Abap Programmer [employer]ner at 06/19/2022 11:05 PM CDT documented in this encounter Plan of Treatment Not on file documented as of this encounter Visit Diagnoses Not on filedocumented in this encounter
--- OUTSIDE RECORDS SUMMARY | 2025-03-03 10:23 | XMS_ITS | Encounter Summary ---
Author Organization [employer] ([place], [place], [place], [place], [place]) Address [address] [place] [address] Care Team Providers Care Lockstitch Coat Joiner Name Role Phone Unavailable Primary Care Provider Unavailabl e Encounter Details Date Type Department Care Team (Late st Contact Info) Description 05/09/2019 Transcribed Document [facility] [place] [facility] [place] [address] ProviderMg MD [facility] [place] [address] Social History Tobacco Use Types Packs/Day Years Used Date Smoking Tobacco: Never Assessed Sex and Gender Information Value Date Recorded Sex Assigned at Not on file Legal Sex Male 1:09 PM CDT Gender Identity Not on file Sexual Orientation Not on file documented as of this encounter Miscellaneous Notes * Cerner Conversion Note - Historical ProviderMD - 05/09/2019 5:00 AM PATIENT SCHEDULING COORDINATOR Chart Check - Review Order Profile [...]
--- OUTSIDE RECORDS SUMMARY | 2025-03-03 10:23 | XMS_ITS | Encounter Summary ---
Author Organization [employer] ([place], [place], [place], [place], [place]) Address [address] [place] [address] Care Team Providers Care Sewer Head Name Role Phone Unavailable Primary Care Provider Unavailabl e Encounter Details Date Type Department Care Team (Late st Contact Info) Description 05/08/2019 Transcribed Document [facility] [place] Family Medicine [facility] [place] [address] ProviderMg MD [facility] [place] [address] Social History Tobacco Use Types Packs/Day Years Used Date Smoking Tobacco: Never Assessed Sex and Gender Information Value Date Recorded Sex Assigned at Not on file Legal Sex Male 1:09 PM CDT Gender Identity Not on file Sexual Orientation Not on file documented as of this encounter Miscellaneous Notes * [employer]ner Conversion Note - Mg Ritchie MD - 05/08/2019 5:52 PM MARTIAL ARTS INSTRUCTOR DATE OF SERVICE: 05/08/2019 PROCEDURE: Right heart catheterization and insertion of CardioMEMS device, left posterior pulmonary artery INDICATIONS FOR PROCEDURE: Recurrent acute left systolic heart failure, [place] Heart Association functional class 4 with multiple [...] Using a single wall puncture technique, an 8-Angolan side-port sheath was introduced into the right common femoral vein. Sheath aspirated and flushed with heparinized saline solution. An 8-Angolan [place] thermodilution catheter was advanced under fluoroscopy and [...] method. The system was then removed. The 8-Angolan side-port sheath in the right common femoral vein was exchanged over a 0.035 inch wire to a 12-Angolan sideport sheath. The sheath was aspirated and flushed with heparinized saline solution. The [place] thermodilution catheter was then advanced again over [...] posterior pulmonary vein. Pressures were equalized and [place]am[place] thermodilution catheter readvanced and engaged selectively in the right main pulmonary artery. Pulmonary artery pressures were re-obtained and calibrated with the CardioMEMS. The [place]-Familia catheter was removed, venous side-port sheath pulled. [...] the left pulmonary artery. PLAN: Aggressively diurese. /[id number] Leydi Hobbs MD AE/GRACE / AE / MODL /[id number] documented in this encounter Plan of Treatment Not on file documented as of this encounter Visit Diagnoses Not on filedocumented in this encounter
--- OUTSIDE RECORDS SUMMARY | 2025-03-03 10:23 | XMS_ITS | Encounter Summary ---
Author Organization [facility] Address [address] [place] [address] Care Team Providers Care Granite Block Paver Name Role Phone Herberth Perez MD Primary Care Provider [phone] Katrin Oviedo RN Unavailable [phone] Zaida Lafleur CORPORATE AIRCRAFT MECHANIC Unavailable [phone] Gracia Petersen CORPORATE AIRCRAFT MECHANIC Unavailable [phone] Yunior Solorzano MD Unavailable [phone] Ross Baez DO Unavailable [phone] Edith Aleman RN Unavailable Unavailable Reason for Visit * Reason Comments Med Refill Encounter Details Date Type Department Care Team (Late st Contact Info) Description 11/14/2021 Refill [facility] [place] [address] [place] [address] Gracia Petersen, CORPORATE AIRCRAFT MECHANIC [address] [place] [address] Social History Tobacco Use Types [...] drink first t janine in the morning (EYE-JAVA SUPPORT ENGINEER) to steady your nerves or to [...] Description 04/22/2025 9:00 AM EST Ancillary Procedure [facility] [place] [address] [facility] [place] [address] documented as of this encounter Visit Diagnoses [...] documented as of this encounter Care Teams Granite Block Paver Relationship Specialty Start Date End Date Herberth Perez MD [address] [place] [address] [place] [address] PCP - General 07/17/20 Katrin Oviedo, RN [facility] [address] [place] [address] VAD Coordinator Cardiology 08/06/20 10/21/24 Zaida Lafleur APRN [address] [place] [id number] Nurse Practitioner Advanced Heart Failure and Transplant Cardiology 08/06/20 06/11/23 Gracia Petersen APRN [address] [place] [address] Nurse Practitioner Internal Medicine 08/06/20 Yunior Solorzano MD [address] [place] [address] Consulting Physician Gastroenterology 07/18/22 Ross Baez, [address] [place] [address] Surgeon Cardiothoracic Surgery 07/18/22 Edith Aleman, FIELD NURSE None VAD Coordinator 10/14/24 documented as of this encounter
--- OUTSIDE RECORDS SUMMARY | 2025-03-03 10:23 | XMS_ITS | Encounter Summary ---
Author Organization [employer] ([place], [place], [place], [place], [place]) Address [address] [place] [address] Care Team Providers Care Assistant Loan Processor Name Role Phone Unavailable Primary Care Provider Unavailabl e Encounter Details Date Type Department Care Team (Late st Contact Info) Description 05/03/2019 Transcribed Document [facility] [place] Family Medicine [address] [place] [address] ProviderMg MD [address] [place], [place] [address] Social History Tobacco Use Types Packs/Day Years Used Date Smoking Tobacco: Never Assessed Sex and Gender Information Value Date Recorded Sex Assigned at Not on file Legal Sex Male 1:09 PM CDT Gender Identity Not on file Sexual Orientation Not on file documented as of this encounter Miscellaneous Notes * [employer] Conversion Note - Historical ProviderMD - 05/03/2019 2:00 AM PRESSER ALL AROUND Seafood Packer Details Entered On: 05/03/2019 4:03 EST Performed [...]
--- OUTSIDE RECORDS SUMMARY | 2025-03-03 10:23 | XMS_ITS | Encounter Summary ---
Author Organization [employer] ([place], [place], [place], [place], [place]) Address [address] [place] [address] Care Team Providers Care Used Building Materials Yard Worker Name Role Phone Unavailable Primary Care Provider Unavailabl e Encounter Details Date Type Department Care Team (Late st Contact Info) Description 05/02/2019 Transcribed Document [facility] [place] [facility] [place] [address] ProviderMg MD [facility] [place] [address] Social History Tobacco Use Types Packs/Day Years Used Date Smoking Tobacco: Never Assessed Sex and Gender Information Value Date Recorded Sex Assigned at Not on file Legal Sex Male 1:09 PM CDT Gender Identity Not on file Sexual Orientation Not on file documented as of this encounter Miscellaneous Notes * [employer]ner Conversion Note - Mg ProviderMD - 05/02/2019 4:10 PM AREA ATTENDANT Nutrition Assessment Entered On: 05/03/2019 8:32 EST [...]
--- OUTSIDE RECORDS SUMMARY | 2025-03-03 10:23 | XMS_ITS | Encounter Summary ---
Author Organization [employer] ([place], [place], [place], [place], [place]) Address [address] [place] [address] Care Team Providers Care Visitor Use Assistant Name Role Phone Unavailable Primary Care Provider Unavailabl e Encounter Details Date Type Department Care Team (Late st Contact Info) Description 04/17/2019 Transcribed Document [facility] [place] [facility] [place] [address] ProviderMg MD [facility] [place] [id number] Social History Tobacco Use Types Packs/Day Years Used Date Smoking Tobacco: Never Assessed Sex and Gender Information Value Date Recorded Sex Assigned at Not on file Legal Sex Male 1:09 PM CDT Gender Identity Not on file Sexual Orientation Not on file documented as of this encounter Miscellaneous Notes * [employer] Conversion Note - Mg Ritchie MD - 04/17/2019 9:55 AM MORTGAGE ADVISOR UM Authorization Entered On: 04/17/2019 9:56 EST Performed On: 04/17/2019 9:55 EST by CHARLA BARRAZA RN-Utilization Review Primary Insurance Authorization Authorization and Policy Numbers : Insurance 1 Health Plan: [employer] Policy Number: [id number] Authorization Number: Insurance 2 Health Plan: MEDICARE Policy Number: [id number] Authorization Number: Insurance Primary Name : Ruben [id number] Authorization Status-Primary : Admit approved Authorization Number-Primary : [id number] Number of Days Authorized-Primary : 1 Day(s) Authorized Service Begin Date-Primary : 04/11/2019 EST Authorized Service End Date-Primary : 04/12/2019 EST Authorization Comments-Primary : [place] approved per Liliana from [employer] approved inpt Historical Authorization Comments-Primary : Comment 1: Clinicals and [employer] Administrators form faxed to [facility]. (MARLENE THORNTON Rn-Utilization Review 04/12/2019 14:39) CHARLA BARRAZA RN-Utilization Review - 04/17/2019 9:55 EST Electronically signed by Jackie, [facility] Conversion Research Quality Assurance Specialist [employer] at 06/19/2022 11:11 PM CDT documented in this encounter Plan of Treatment Not on file documented as of this encounter Visit Diagnoses Not on filedocumented in this encounter
--- OUTSIDE RECORDS SUMMARY | 2025-03-03 10:23 | XMS_ITS | Encounter Summary ---
Author Organization [employer] ([place], [place], [place], [place], [place]) Address [address] [place] [address] Care Team Providers Care Brineyard Supervisor Name Role Phone Unavailable Primary Care Provider Unavailabl e Encounter Details Date Type Department Care Team (Late st Contact Info) Description 04/13/2019 Transcribed Document [facility] Family Medicine [facility] [place] [address] ProviderMg MD [facility] [place] [id number] Social History Tobacco Use Types Packs/Day Years Used Date Smoking Tobacco: Never Assessed Sex and Gender Information Value Date Recorded Sex Assigned at Not on file Legal Sex Male 1:09 PM CDT Gender Identity Not on file Sexual Orientation Not on file documented as of this encounter Miscellaneous Notes * [employer]ner Conversion Note - Mg Ritchie MD - 04/13/2019 9:39 AM RETAIL MARKETING COORDINATOR Patient: JOSE PEARSON Age: 48 years [...] Pain (Mild 1-3) Xarelto: 10 mg, Oral, [id number] Zofran: 4 mg, IV Push, Q6H, PRN: [...]
--- OUTSIDE RECORDS SUMMARY | 2025-03-03 10:23 | XMS_ITS | Encounter Summary ---
Author Organization [employer] ([place], [place], [place], [place], [place]) Address [address] [place] [address] Care Team Providers Care Riding Teacher Name Role Phone Unavailable Primary Care Provider Unavailabl e Encounter Details Date Type Department Care Team (Late st Contact Info) Description 05/05/2019 Transcribed Document [facility] [place] [address] [place] [address] ProviderMg MD [facility] [place] [address] Social History Tobacco Use Types Packs/Day Years Used Date Smoking Tobacco: Never Assessed Sex and Gender Information Value Date Recorded Sex Assigned at Not on file Legal Sex Male 1:09 PM CDT Gender Identity Not on file Sexual Orientation Not on file documented as of this encounter Miscellaneous Notes * [employer] Conversion Note - Historical ProviderMD - 05/05/2019 5:00 AM JOURNEYMAN PIPE FITTER Chart Check - Review Order Profile Entered [...]
--- OUTSIDE RECORDS SUMMARY | 2025-03-03 10:23 | XMS_ITS | Encounter Summary ---
Author Organization [employer] ([place], [place], [place], [place], [place]) Address [address] [place] [address] Care Team Providers Care An Employee Sponsor Or Advocate And Name Role Phone Unavailable Primary Care Provider Unavailabl e Encounter Details Date Type Department Care Team (Late st Contact Info) Description 05/05/2019 Transcribed Document [facility] [place] [facility] [place] [address] ProviderMg MD [facility] [place] [address] Social History Tobacco Use Types Packs/Day Years Used Date Smoking Tobacco: Never Assessed Sex and Gender Information Value Date Recorded Sex Assigned at Not on file Legal Sex Male 1:09 PM CDT Gender Identity Not on file Sexual Orientation Not on file documented as of this encounter Miscellaneous Notes * [employer] Conversion Note - Historical ProviderMD - 05/05/2019 5:00 PM DIRECTOR DIGITAL MARKETING Chart Check - Review Order Profile Entered [...]
--- OUTSIDE RECORDS SUMMARY | 2025-03-03 10:23 | XMS_ITS | Encounter Summary ---
Author Organization [employer] ([place], [place], [place], [place], [place]) Address [address] [place] [address] Care Team Providers Care Crm Technical Lead Name Role Phone Unavailable Primary Care Provider Unavailabl e Encounter Details Date Type Department Care Team (Late st Contact Info) Description 05/09/2019 Transcribed Document [facility] [place] [facility] [place] [address] ProviderMg MD [facility] [place] [id number] Social History Tobacco Use Types Packs/Day Years Used Date Smoking Tobacco: Never Assessed Sex and Gender Information Value Date Recorded Sex Assigned at Not on file Legal Sex Male 1:09 PM CDT Gender Identity Not on file Sexual Orientation Not on file documented as of this encounter Miscellaneous Notes * Cerner Conversion Note - Mg Ritchie MD - 05/09/2019 10:06 AM MASH FILTER PRESS OPERATOR Patient: JOSE PEARSON Age: 48 years [...] Non-distended, Normal bowel sounds. Integumentary: Warm, Dry, [place], No rash. Results Review General results Today's [...]
--- OUTSIDE RECORDS SUMMARY | 2025-03-03 10:23 | XMS_ITS | Encounter Summary ---
Author Organization [employer] ([place], [place], [place], [place], [place]) Address [address] [place] [address] Care Team Providers Care Nonprofit Director Name Role Phone Unavailable Primary Care Provider Unavailabl e Encounter Details Date Type Department Care Team (Late st Contact Info) Description 05/02/2019 Transcribed Document [facility] [place] [facility] [place] [address] ProviderMg MD [facility] [place] [address] Social History Tobacco Use Types Packs/Day Years Used Date Smoking Tobacco: Never Assessed Sex and Gender Information Value Date Recorded Sex Assigned at Not on file Legal Sex Male 1:09 PM CDT Gender Identity Not on file Sexual Orientation Not on file documented as of this encounter Miscellaneous Notes * Cerner Conversion Note - Historical ProviderMD - 05/02/2019 4:10 PM LABORATORY SAMPLE CARRIER Education-(VTE) / (DVT) Entered On: 05/02/2019 18:53 EST Performed On: 05/02/2019 16:10 EST by Chelo Cardenas RN Teaching/Learning Assessment Barriers To Learning : None evident Individuals Taught : Patient, Spouse Readiness to Learn : Explanation Chelo Cardenas RN - 05/02/2019 18:53 EST Electronically signed by Jackie [facility] Conversion Integrated Circuit Ic Layout Designer Cerner at 06/19/2022 10:54 PM CDT documented in this encounter Plan of Treatment Not on file documented as of this encounter Visit Diagnoses Not on filedocumented in this encounter
--- OUTSIDE RECORDS SUMMARY | 2025-03-03 10:23 | XMS_ITS | Encounter Summary ---
Author Organization [employer] ([place], [place], [place], [place], [place]) Address [address] [place] [address] Care Team Providers Care Bench Loom Weaver Name Role Phone Unavailable Primary Care Provider Unavailabl e Encounter Details Date Type Department Care Team (Late st Contact Info) Description 04/13/2019 Transcribed Document [facility] [place] [facility] [place] [address] ProviderMg MD [facility] [place] [address] Social History Tobacco Use Types Packs/Day Years Used Date Smoking Tobacco: Never Assessed Sex and Gender Information Value Date Recorded Sex Assigned at Not on file Legal Sex Male 1:09 PM CDT Gender Identity Not on file Sexual Orientation Not on file documented as of this encounter Miscellaneous Notes * Cerner Conversion Note - Historical ProviderMD - 04/13/2019 5:00 AM DOCK BOSS Height and Weight, Routine Entered On: 04/13/2019 5:17 EST Performed On: 04/13/2019 5:00 EST by Duncan Rudolph Rn-Resource Height and Weight, Routine Routine Weight Source : Bed scale Routine Weight Entry Format : Metric Routine Weight, Kilograms : 112.4 kg(Converted to: 247 lb 13 oz) Routine Weight Calculation : 112.4 kg Height Source : Stated Height Entry Format : [place] Height, Feet : 6 ft Height, Inches : 2 Inch Clinical Height : 187.96 cm Body Surface Area (BSA), Routine : 2.38 m2 Body Mass Index (BMI), Routine : 31.82 kg/m2 Duncan Rudolph Rn-Resource - 04/13/2019 5:15 EST Electronically signed by Jackie [facility] Conversion Water Rights Specialist Cerner at 06/19/2022 11:08 PM CDT documented in this encounter Plan of Treatment Not on file documented as of this encounter Visit Diagnoses Not on filedocumented in this encounter
--- OUTSIDE RECORDS SUMMARY | 2025-03-03 10:23 | XMS_ITS | Encounter Summary ---
Author Organization [employer] ([place], [place], [place], [place], [place]) Address [address] [place] [address] Care Team Providers Care Supervisor Solder Making Name Role Phone Unavailable Primary Care Provider Unavailabl e Encounter Details Date Type Department Care Team (Late st Contact Info) Description 05/04/2019 Transcribed Document [facility] [place] [address] [place] [address] ProviderMg MD [address] [place], [place] [address] Social History Tobacco Use Types Packs/Day Years Used Date Smoking Tobacco: Never Assessed Sex and Gender Information Value Date Recorded Sex Assigned at Not on file Legal Sex Male 1:09 PM CDT Gender Identity Not on file Sexual Orientation Not on file documented as of this encounter Miscellaneous Notes * Cerner Conversion Note - Historical ProviderMD - 05/04/2019 2:00 AM SHEARER OPERATOR Fax Machine Repairer Details Entered On: 05/04/2019 4:57 EST Performed [...]
--- OUTSIDE RECORDS SUMMARY | 2025-03-03 10:23 | XMS_ITS | Encounter Summary ---
Author Organization [employer] ([place], [place], [place], [place], [place]) Address [address] [place] [address] Care Team Providers Care Outer Diameter Grinder Tool Name Role Phone Unavailable Primary Care Provider Unavailabl e Encounter Details Date Type Department Care Team (Late st Contact Info) Description 05/02/2019 Transcribed Document [facility] [place] [address] [place] [address] ProviderMg MD [facility] [place] [address] Social History Tobacco Use Types Packs/Day Years Used Date Smoking Tobacco: Never Assessed Sex and Gender Information Value Date Recorded Sex Assigned at Not on file Legal Sex Male 1:09 PM CDT Gender Identity Not on file Sexual Orientation Not on file documented as of this encounter Miscellaneous Notes * Cerner Conversion Note - Mg ProviderMD - 05/02/2019 4:10 PM [place]NER Pain Assessment Entered On: 2019 15:50 EST [...]
--- OUTSIDE RECORDS SUMMARY | 2025-03-03 10:23 | XMS_ITS | Encounter Summary ---
Author Organization [employer] ([place], [place], [place], [place], [place]) Address [address] [place] [address] Care Team Providers Care Chisel Mortiser Operator Name Role Phone Unavailable Primary Care Provider Unavailabl e Encounter Details Date Type Department Care Team (Late st Contact Info) Description 04/13/2019 Transcribed Document [facility] [place] [address] [place] [address] ProviderMg MD [facility] [place], [place] [address] Social History Tobacco Use Types Packs/Day Years Used Date Smoking Tobacco: Never Assessed Sex and Gender Information Value Date Recorded Sex Assigned at Not on file Legal Sex Male 1:09 PM CDT Gender Identity Not on file Sexual Orientation Not on file documented as of this encounter Miscellaneous Notes * Cerner Conversion Note - Historical ProviderMD - 04/13/2019 2:00 AM GROUNDS AND NURSERY SPECIALIST Cloth Sander Details Entered On: 04/13/2019 5:10 EST Performed [...]
--- OUTSIDE RECORDS SUMMARY | 2025-03-03 10:23 | XMS_ITS | Encounter Summary ---
Author Organization [employer] ([place], [place], [place], [place], [place]) Address [address] [place] [address] Care Team Providers Care Crude Oil Treater Name Role Phone Unavailable Primary Care Provider Unavailabl e Encounter Details Date Type Department Care Team (Late st Contact Info) Description 05/02/2019 Transcribed Document [facility] [place] [facility] [place] [address] ProviderMg MD [facility] [place] [address] Social History Tobacco Use Types Packs/Day Years Used Date Smoking Tobacco: Never Assessed Sex and Gender Information Value Date Recorded Sex Assigned at Not on file Legal Sex Male 1:09 PM CDT Gender Identity Not on file Sexual Orientation Not on file documented as of this encounter Miscellaneous Notes * Cerner Conversion Note - Historical ProviderMD - 05/02/2019 4:10 PM DESPATCH CLERK Education-Cardiac Topics Entered On: 05/02/2019 18:53 EST Performed On: 05/02/2019 16:10 EST by Chelo Cardenas RN Teaching/Learning Assessment Barriers To Learning : None evident Individuals Taught : Patient, Spouse Readiness to Learn : Explanation Chelo Cardenas RN - 05/02/2019 18:53 EST Electronically signed by Jackie [facility] Conversion Beauty Culturist Cerner at 06/19/2022 10:59 PM CDT documented in this encounter Plan of Treatment Not on file documented as of this encounter Visit Diagnoses Not on filedocumented in this encounter
--- OUTSIDE RECORDS SUMMARY | 2025-03-03 10:23 | XMS_ITS | Encounter Summary ---
Author Organization [employer] ([place], [place], [place], [place], [place]) Address [address] [place] [address] Care Team Providers Care Gas Specialist Name Role Phone Unavailable Primary Care Provider Unavailabl e Encounter Details Date Type Department Care Team (Late st Contact Info) Description 04/12/2019 Transcribed Document [facility] [place] [facility] [place] [address] ProviderMg MD [facility] [place] [address] Social History Tobacco Use Types Packs/Day Years Used Date Smoking Tobacco: Never Assessed Sex and Gender Information Value Date Recorded Sex Assigned at Not on file Legal Sex Male 1:09 PM CDT Gender Identity Not on file Sexual Orientation Not on file documented as of this encounter Miscellaneous Notes * Cerner Conversion Note - Historical ProviderMD - 04/12/2019 2:00 AM GEOTECHNICAL ENGINEER Assistant County Attorney Details Entered On: 04/12/2019 1:10 EST Performed [...]
--- OUTSIDE RECORDS SUMMARY | 2025-03-03 10:23 | XMS_ITS | Encounter Summary ---
Author Organization [employer] ([place], [place], [place], [place], [place]) Address [address] [place] [address] Care Team Providers Care Environmental Tech Name Role Phone Unavailable Primary Care Provider Unavailabl e Encounter Details Date Type Department Care Team (Late st Contact Info) Description 04/11/2019 Transcribed Document [facility] [place] [facility] [address] ProviderMg MD [facility] [place] [address] Social History Tobacco Use Types Packs/Day Years Used Date Smoking Tobacco: Never Assessed Sex and Gender Information Value Date Recorded Sex Assigned at Not on file Legal Sex Male 1:09 PM CDT Gender Identity Not on file Sexual Orientation Not on file documented as of this encounter Miscellaneous Notes * Cerner Conversion Note - Mg ProviderMD - 04/11/2019 4:28 PM PLASTICS TOOLING ENGINEER Admission History, Adult Entered On: 04/11/2019 [...] 04/11/2019 17:09 EST General Info Support Person/Patient Cathode Ray Tube Salvage Processor : Yes Support Person/Pt Rep Name : Neel Pearson-- Contact Password : neel Support Person/Pt Rep Contact Information : [phone] Want Family/Rep/Phys Notified of Admit : No Emergency Contact #1 : Beth Jiang Emergency Contact #1 Emergency Contact #1 Relationship : Emergency Contact #2 : na Emergency Contact #2 Phone Number : amaris Emergency Contact #2 Relationship : na Primary Language : Ethiopian Preferred Communication Mode : Verbal Communication Barrier [...] Scale Risk Level : 0-24 Low Risk [place] Fall Interventions : Adequate lighting, Assistive devices [...] Source : Stated Height Entry Format : [place] Height, Feet : 6 ft(Converted to: 183 cm, 72 Inch) Height, Inches : 2 Inch(Converted to: 0 ft 2 Inch, 5.08 cm) Clinical Height : 187.96 cm Weight Source : Standing scale Weight Entry Format : [place] Clinical Dosing Weight : 112.73 kg Weight, Pounds : 248 lb Body Surface Area (BSA) : 2.38 m2 Body Mass Index : 31.9 kg/m2 (HI) [place] Body Weight : 81 kg Jennie Patel [...] Jennie Patel RN - 04/11/2019 17:09 EST [place] Suicide Severity Rating Scale (C-SSRS) CSSRS Past [...]
--- OUTSIDE RECORDS SUMMARY | 2025-03-03 10:23 | XMS_ITS | Encounter Summary ---
Author Organization [employer] ([place], [place], [place], [place], [place]) Address [address] [place] [address] Care Team Providers Care Sales Enablement Lead Name Role Phone Unavailable Primary Care Provider Unavailabl e Encounter Details Date Type Department Care Team (Late st Contact Info) Description 04/11/2019 Transcribed Document [facility] Family Medicine [facility] [place] [address] ProviderMg MD [facility] [place] [address] Social History Tobacco Use Types Packs/Day Years Used Date Smoking Tobacco: Never Assessed Sex and Gender Information Value Date Recorded Sex Assigned at Not on file Legal Sex Male 1:09 PM CDT Gender Identity Not on file Sexual Orientation Not on file documented as of this encounter Miscellaneous Notes * Cerner Conversion Note - Mg ProviderMD - 04/11/2019 6:01 PM PROCESS DEVELOPMENT CHEMIST Nutrition Assessment Entered On: 04/12/2019 10:52 EST [...]
--- OUTSIDE RECORDS SUMMARY | 2025-03-03 10:23 | XMS_ITS | Encounter Summary ---
Author Organization [employer] ([place], [place], [place], [place], [place]) Address [address] [place] [address] Care Team Providers Care Vacuum Extractor Operator Name Role Phone Unavailable Primary Care Provider Unavailabl e Encounter Details Date Type Department Care Team (Late st Contact Info) Description 05/07/2019 Transcribed Document [facility] [place] [address] [place] [address] ProviderMg MD [facility] [place], [place] [address] Social History Tobacco Use Types Packs/Day Years Used Date Smoking Tobacco: Never Assessed Sex and Gender Information Value Date Recorded Sex Assigned at Not on file Legal Sex Male 1:09 PM CDT Gender Identity Not on file Sexual Orientation Not on file documented as of this encounter Miscellaneous Notes * [employer]ner Conversion Note - Historical ProviderMD - 05/07/2019 2:00 AM ROLLER COASTER DESIGNER Opinion Polls Survey Worker Details Entered On: 05/07/2019 8:34 EST Performed [...]
--- OUTSIDE RECORDS SUMMARY | 2025-03-03 10:23 | XMS_ITS | Encounter Summary ---
Author Organization [employer] ([place], [place], [place], [place], [place]) Address [address] [place] [address] Care Team Providers Care Fermenting Cellar Dropper Name Role Phone Unavailable Primary Care Provider Unavailabl e Encounter Details Date Type Department Care Team (Late st Contact Info) Description [address] [facility] [place] [facility] [place] [address] ProviderMg MD [facility] [place], [place] [id number] Social History Tobacco Use Types Packs/Day Years Used Date Smoking Tobacco: Never Assessed Sex and Gender Information Value Date Recorded Sex Assigned at Not on file Legal Sex Male 1:09 PM CDT Gender Identity Not on file Sexual Orientation Not on file documented as of this encounter Miscellaneous Notes * Cerner Conversion Note - Mg Ritchie MD - 2019 11:44 AM INFORMATION CLERK BROKERAGE Patient: JOSE PEARSON Age: 48 years Sex: [...] 20 mg, Oral, At Bedtime Flonase: 1 [place], Nostrils Both, BID Melatonin: 3 mg, Oral, [...] Pain (Mild 1-3) Xarelto: 20 mg, Oral, [id number] Zofran: 4 mg, IV Push, Q6H, PRN: [...] At Bedtime fluticasone 0.05% nasal spray 1 [place], Nostrils Both, BID loratadine 10 mg tab [...] mg tab 20 mg 1 Tab, Oral, [id number] spironolactone 25 mg tab 50 mg 2 [...] Problem list: Medical angina / SNOMED CT 519178855 / Confirmed Cardiac defibrillator in place / SNOMED CT 6129014785 / Confirmed interrogated at physicians office---02/22/13 pacemaker / SNOMED CT 7033760067 / Confirmed stroke / SNOMED CT 776497777 / Confirmed he had a stroke when they found the blood clot in valve History of obstructive sleep apnea / IMO [id number] / Confirmed high cholesterol / SNOMED CT 82788555 / Confirmed hypertension / SNOMED CT 0233552361 / Confirmed myocardial infarction / SNOMED CT 84870369 / Confirmed sesonal allergies / SNOMED CT 2362522336 / Confirmed Resolved: At risk for sleep apnea / IMO [id number] Resolved: 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 / SNOMED CT 393856723 treated with blood thinners, Active Problems (16) [...] will benefit from advanced CHF management at [facility] for eval for transplant/LVAD. 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 documented in this encounter Plan of Treatment Not on file documented as of this encounter Visit Diagnoses Not on filedocumented in this encounter
--- OUTSIDE RECORDS SUMMARY | 2025-03-03 10:23 | XMS_ITS | Encounter Summary ---
Author Organization [employer] ([place], [place], [place], [place], [place]) Address [address] [place] [address] Care Team Providers Care Boat Hand Name Role Phone Unavailable Primary Care Provider Unavailabl e Encounter Details Date Type Department Care Team (Late st Contact Info) Description 05/02/2019 Transcribed Document [facility] [place] [facility] [place] [address] ProviderMg MD [facility] [place] [address] Social History Tobacco Use Types Packs/Day Years Used Date Smoking Tobacco: Never Assessed Sex and Gender Information Value Date Recorded Sex Assigned at Not on file Legal Sex Male 1:09 PM CDT Gender Identity Not on file Sexual Orientation Not on file documented as of this encounter Miscellaneous Notes * [employer]ner Conversion Note - Mg ProviderMD - 05/02/2019 3:13 PM KITCHEN WORKER Admission History, Adult Entered On: 05/02/2019 18:52 [...] RN - 05/02/2019 19:03 EST Support Person/Patient Supply Chain Generalist : Yes Support Person/Pt Rep Name : Neel Pearson-- Contact Password : neel Support Person/Pt Rep Contact Information : [phone] Want Family/Rep/Phys Notified of Admit : No Primary Language : Romanian Preferred Communication Mode : Verbal Communication Barrier [...] Scale Risk Level : 0-24 Low Risk [place] Fall Interventions : Adequate lighting, Bed in [...] Body Mass Index : 31.3 kg/m2 (HI) [place] Body Weight : 77 kg Chelo Cardenas RN - 05/02/2019 19:03 EST Height Source : Stated Height Entry Format : [place] Weight Source : Bed scale Weight Entry Format : [place] Clinical Dosing Weight : 104.55 kg Weight, [...] Chelo Cardenas RN - 05/02/2019 18:47 EST [place] Suicide Severity Rating Scale (C-SSRS) CSSRS Past [...] - 05/02/2019 18:47 EST Electronically signed by [facility] Conversion Continuous Improvement Coach Cerner at 06/19/2022 10:52 PM CDT documented in this encounter Plan of Treatment Not on file documented as of this encounter Visit Diagnoses Not on filedocumented in this encounter
--- OUTSIDE RECORDS SUMMARY | 2025-03-03 10:23 | XMS_ITS | Encounter Summary ---
Author Organization [employer] ([place], [place], [place], [place], [place]) Address [address] [place] [address] Care Team Providers Care Internet Project Manager Name Role Phone Unavailable Primary Care Provider Unavailabl e Encounter Details Date Type Department Care Team (Late st Contact Info) Description 04/12/2019 Transcribed Document [facility] [place] Family Medicine [address] [place] [address] ProviderMg MD [facility] [place] [address] Social History Tobacco Use Types Packs/Day Years Used Date Smoking Tobacco: Never Assessed Sex and Gender Information Value Date Recorded Sex Assigned at Not on file Legal Sex Male 1:09 PM CDT Gender Identity Not on file Sexual Orientation Not on file documented as of this encounter Miscellaneous Notes * [employer] Conversion Note - Historical ProviderMD - 04/12/2019 9:28 AM HIDE WASHER Therapy Screen, OT Entered On: 04/12/2019 11:09 [...]
--- OUTSIDE RECORDS SUMMARY | 2025-03-03 10:23 | XMS_ITS | Encounter Summary ---
Author Organization [employer] ([place], [place], [place], [place], [place]) Address [address] [place] [address] Care Team Providers Care Insurance Administrative Assistant Name Role Phone Unavailable Primary Care Provider Unavailabl e Encounter Details Date Type Department Care Team (Late st Contact Info) Description 05/08/2019 Transcribed Document [facility] [place] [address] [place] [address] ProviderMg MD [facility] [place] [address] Social History Tobacco Use Types Packs/Day Years Used Date Smoking Tobacco: Never Assessed Sex and Gender Information Value Date Recorded Sex Assigned at Not on file Legal Sex Male 1:09 PM CDT Gender Identity Not on file Sexual Orientation Not on file documented as of this encounter Miscellaneous Notes * [employer] Conversion Note - Mg ProviderMD - 05/08/2019 5:59 PM CLERK CARRIER Cardiac and Pulmonary Outpatient [facility] Entered On: 05/14/2019 15:44 EDT Performed On: 05/14/2019 15:44 EDT by EDITH CHAVIS captain/airline pilot and Pulmonary Outpatient [facility] Phase 2 Cardiac Rehab Criteria Met : Heart failure (HF) Cardiac Outpatient Rehab Evaluation Comment : Order faxed to [facility] due to pts location. EDITH CHAVIS RN - 05/14/2019 15:44 EDT documented in this encounter Plan of Treatment Not on file documented as of this encounter Visit Diagnoses Not on filedocumented in this encounter
--- OUTSIDE RECORDS SUMMARY | 2025-03-03 10:23 | XMS_ITS | Encounter Summary ---
Author Organization [employer] ([place], [place], [place], [place], [place]) Address [address] [place] [address] Care Team Providers Care Hard Tile Setter Name Role Phone Unavailable Primary Care Provider Unavailabl e Encounter Details Date Type Department Care Team (Late st Contact Info) Description 05/09/2019 Transcribed Document [facility] [place] [facility] [place] [address] ProviderMg MD [facility] [place] [address] Social History Tobacco [...] - Historical ProviderMD - 05/09/2019 5:00 PM STONE SPLITTER Chart Check - Review Order Profile Entered [...]
--- OUTSIDE RECORDS SUMMARY | 2025-03-03 10:23 | XMS_ITS | Encounter Summary ---
Author Organization [employer] ([place], [place], [place], [place], [place]) Address [address] [place] [address] Care Team Providers Care Air Conditioning Manager Name Role Phone Unavailable Primary Care Provider Unavailabl e Encounter Details Date Type Department Care Team (Late st Contact Info) Description 05/08/2019 Transcribed Document [facility] [place] [facility] [place] [address] ProviderMg MD [facility] [place] [address] Social History Tobacco Use Types Packs/Day Years Used Date Smoking Tobacco: Never Assessed Sex and Gender Information Value Date Recorded Sex Assigned at Not on file Legal Sex Male 1:09 PM CDT Gender Identity Not on file Sexual Orientation Not on file documented as of this encounter Miscellaneous Notes * [employer]ner Conversion Note - Mg ProviderMD - 05/08/2019 2:43 PM PRESCHOOL EDUCATION DIRECTOR UM Authorization Entered On: 05/08/2019 14:43 EST Performed On: 05/08/2019 14:43 EST by MARLENE THORNTON Rn-Utilization Review Primary Insurance Authorization Authorization and Policy Numbers : Insurance 1 Health Plan: [facility] Policy Number: Authorization Number: Insurance Primary Name : [facility] Administators [id number] Authorization Status-Primary : Awaiting callback Authorization Number-Primary : [id number] Number of Days Authorized-Primary : 4 Day(s) Authorized Service Begin Date-Primary : 05/03/2019 EST Authorized Service End Date-Primary : 05/07/2019 EST Historical Authorization Comments-Primary : Comment 1: Clinicals for CS faxed via [employer] (MARLENE THORNTON Rn-Utilization Review 05/08/2019 14:43) Comment 2: [place] approved per Katrin for 5 days total --- nrd 3/4 (CHARLA BARRAZA RN-Utilization Review 05/06/2019 13:43) Comment 3: Uploaded continuing stay clinicals (05/06/19) to [facility] via [employer]. (ARMANDO SHANNON, RN-Utilization Review 05/06/2019 12:11) Comment 4: Per [facility], admit approved with auth #[id number] given from 05/03-05/05/19. Next review date 05/06/19. [...]
--- OUTSIDE RECORDS SUMMARY | 2025-03-03 10:23 | XMS_ITS | Encounter Summary ---
Author Organization [employer] ([place], [place], [place], [place], [place]) Address [address] [place] [address] Care Team Providers Care Health And Nutrition Specialist Name Role Phone Unavailable Primary Care Provider Unavailabl e Encounter Details Date Type Department Care Team (Late st Contact Info) Description 05/08/2019 Transcribed Document [facility] [place] [facility] [place] [address] ProviderMg MD [facility] [place] [address] Social History Tobacco Use Types Packs/Day Years Used Date Smoking Tobacco: Never Assessed Sex and Gender Information Value Date Recorded Sex Assigned at Not on file Legal Sex Male 1:09 PM CDT Gender Identity Not on file Sexual Orientation Not on file documented as of this encounter Miscellaneous Notes * Cerner Conversion Note - Mg ProviderMD - 05/08/2019 2:43 PM HEEL SEAT FITTER MACHINE UM Authorization Entered On: 05/08/2019 14:43 EST Performed On: 05/08/2019 14:43 EST by MARLENE THORNTON Rn-Utilization Review Primary Insurance Authorization Authorization and Policy Numbers : Insurance 1 Health [facility] Policy Number: Authorization Number: Insurance Primary Name : [facility] Administators [id number] Authorization Status-Primary : Admit approved Authorization Number-Primary : [id number] Number of Days Authorized-Primary : 4 Day(s) Authorized Service Begin Date-Primary : 05/03/2019 EST Authorized Service End Date-Primary : 05/07/2019 EST Authorization Comments-Primary : Clinicals for CS faxed via [employer] Historical Authorization Comments-Primary : Comment 1: [place] approved per Katrin for 5 days total --- nrd 3/4 (CHARLA BARRAZA RN-Utilization Review 05/06/2019 13:43) Comment 2: Uploaded continuing stay clinicals (05/06/19) to [facility] via [employer]. (ARMANDO SHANNON, RN-Utilization Review 05/06/2019 12:11) Comment 3: Per [facility], admit approved with auth #[id number] given from 05/03-05/05/19. Next review date 05/06/19. [...]
--- OUTSIDE RECORDS SUMMARY | 2025-03-03 10:23 | XMS_ITS | Encounter Summary ---
Author Organization [employer] ([place], [place], [place], [place], [place]) Address [address] [place] [address] Care Team Providers Care Acute Care Occupational Therapist Name Role Phone Unavailable Primary Care Provider Unavailabl e Encounter Details Date Type Department Care Team (Late st Contact Info) Description 05/06/2019 Transcribed Document [facility] [place] [facility] [place] [address] ProviderMg MD [facility] [place] [address] Social History Tobacco Use Types Packs/Day Years Used Date Smoking Tobacco: Never Assessed Sex and Gender Information Value Date Recorded Sex Assigned at Not on file Legal Sex Male 1:09 PM CDT Gender Identity Not on file Sexual Orientation Not on file documented as of this encounter Miscellaneous Notes * Cerner Conversion Note - Mg ProviderMD - 05/06/2019 3:00 AM SALES CLERK FOOD Nutrition Assessment Entered On: 05/06/2019 8:41 EST [...] 05/06/2019 14:52 EST Electronically signed by Jackie, [facility] Conversion 7Th Grade Teacher [employer]ner at 06/19/2022 10:48 PM CDT documented in this encounter Plan of Treatment Not on file documented as of this encounter Visit Diagnoses Not on filedocumented in this encounter
--- OUTSIDE RECORDS SUMMARY | 2025-03-03 10:23 | XMS_ITS | Encounter Summary ---
Author Organization [employer] ([place], [place], [place], [place], [place]) Address [address] [place] [address] Care Team Providers Care Student Career Development Specialist Name Role Phone Unavailable Primary Care Provider Unavailabl e Encounter Details Date Type Department Care Team (Late st Contact Info) Description 04/13/2019 Transcribed Document [facility] [place] Family [place] [facility] [place] [address] ProviderMg MD [facility] [place], [place] [address] Social History Tobacco Use Types Packs/Day Years Used Date Smoking Tobacco: Never Assessed Sex and Gender Information Value Date Recorded Sex Assigned at Not on file Legal Sex Male 1:09 PM CDT Gender Identity Not on file Sexual Orientation Not on file documented as of this encounter Miscellaneous Notes * Cerner Conversion Note - Historical ProviderMD - 04/13/2019 5:00 AM FORGE UTILITY WORKER Chart Check - Review Order Profile Entered [...]
--- OUTSIDE RECORDS SUMMARY | 2025-03-03 10:24 | XMS_ITS | Encounter Summary ---
Author Organization [employer] ([place], [place], [place], [place], [place]) Address [address] [place] [address] Care Team Providers Care Statement Services Representative Name Role Phone Unavailable Primary Care Provider Unavailabl e Encounter Details Date Type Department Care Team (Late st Contact Info) Description 05/03/2019 Transcribed Document [facility] [place] Family Medicine [address] [place] [address] ProviderMg MD [facility] [place] [address] Social History Tobacco Use Types Packs/Day Years Used Date Smoking Tobacco: Never Assessed Sex and Gender Information Value Date Recorded Sex Assigned at Not on file Legal Sex Male 1:09 PM CDT Gender Identity Not on file Sexual Orientation Not on file documented as of this encounter Miscellaneous Notes * Cerner Conversion Note - Historical ProviderMD - 05/03/2019 5:00 AM COIN MACHINE SUPERVISOR Height and Weight, Routine Entered On: 05/03/2019 6:56 EST Performed On: 05/03/2019 5:00 EST by Carlos Ojeda RN Height and Weight, Routine Routine Weight Source : Bed scale Routine Weight Entry Format : Metric Routine Weight, Kilograms : 104.5 kg(Converted to: 230 lb 6 oz) Routine Weight Calculation : 104.5 kg Height Source : Stated Height Entry Format : Door Height, Feet : 6 ft Height, Inches : 0 Inch Clinical Height : 182.88 cm Body Surface Area (BSA), Routine : 2.26 m2 Body Mass Index (BMI), Routine : 31.25 kg/m2 Carlos Ojeda RN - 05/03/2019 6:55 EST Electronically signed by Jackie [facility] Conversion Hammerer Tab [employer] at 06/19/2022 11:12 PM CDT documented in this encounter Plan of Treatment Not on file documented as of this encounter Visit Diagnoses Not on filedocumented in this encounter
--- OUTSIDE RECORDS SUMMARY | 2025-03-03 10:24 | XMS_ITS | Encounter Summary ---
Author Organization [employer] ([place], [place], [place], [place], [place]) Address [address] [place] [address] Care Team Providers Care Night Auditor Name Role Phone Unavailable Primary Care Provider Unavailabl e Encounter Details Date Type Department Care Team (Late st Contact Info) Description 05/07/2019 Transcribed Document [facility] [place] Family Medicine [facility] [place] [address] ProviderMg MD [facility] [place] [address] Social History Tobacco Use Types Packs/Day Years Used Date Smoking Tobacco: Never Assessed Sex and Gender Information Value Date Recorded Sex Assigned at Not on file Legal Sex Male 1:09 PM CDT Gender Identity Not on file Sexual Orientation Not on file documented as of this encounter Miscellaneous Notes * [employer] Conversion Note - Historical ProviderMD - 05/07/2019 5:00 AM HEADSTART TEACHER Chart Check - Review Order Profile Entered On: 05/07/2019 8:35 EST Performed On: 05/07/2019 5:00 EST by Reyna Nicolas RN Chart Check All Active Orders Reviewed : Yes Reyna Nicolas RN - 05/07/2019 8:35 EST Electronically signed by Jackie [facility] Conversion Image Consultant [employer] at 06/19/2022 10:53 PM CDT documented in this encounter Plan of Treatment Not on file documented as of this encounter Visit Diagnoses Not on filedocumented in this encounter
--- OUTSIDE RECORDS SUMMARY | 2025-03-03 10:24 | XMS_ITS | Encounter Summary ---
Author Organization [employer] ([place], [place], [place], [place], [place]) Address [address] [place] [address] Care Team Providers Care Retail Field Merchandiser Name Role Phone Unavailable Primary Care Provider Unavailabl e Encounter Details Date Type Department Care Team (Late st Contact Info) Description 05/07/2019 Transcribed Document [facility] [place] [address] [place] [address] ProviderMg MD [facility] [place] [address] Social History Tobacco Use Types Packs/Day Years Used Date Smoking Tobacco: Never Assessed Sex and Gender Information Value Date Recorded Sex Assigned at Not on file Legal Sex Male 1:09 PM CDT Gender Identity Not on file Sexual Orientation Not on file documented as of this encounter Miscellaneous Notes * Cerner Conversion Note - Historical ProviderMD - 05/07/2019 9:57 AM WORK ORDER DETAILER Event Note Entered On: 05/07/2019 10:05 EST Performed On: 05/07/2019 9:57 EST by Garcia Carl, Tail Dogger-Health Unit Coord Event Note Event Date/Time : 05/07/2019 9:57 EST Event Details : Nursing assessment additional narrative Description of Event : Pt's QTC is 618 this AM prior to adminstering his tikosyn dose. Notified MALU Hernandez. Orders received to adminster half the ordered dose of 250mcg. Gracia Carl, Tail Dogger-Health Unit Coord - 05/07/2019 10:03 EST documented in this encounter Plan of Treatment Not on file documented as of this encounter Visit Diagnoses Not on filedocumented in this encounter
--- OUTSIDE RECORDS SUMMARY | 2025-03-03 10:24 | XMS_ITS | Encounter Summary ---
Author Organization [employer] ([place], [place], [place], [place], [place]) Address [address] [place] [address] Care Team Providers Care Electrical Tests Supervisor Name Role Phone Unavailable Primary Care Provider Unavailabl e Encounter Details Date Type Department Care Team (Late st Contact Info) Description 05/06/2019 Transcribed Document [facility] [place] [facility] [place] [address] ProviderMg MD [facility] [place] [address] Social History Tobacco Use Types Packs/Day Years Used Date Smoking Tobacco: Never Assessed Sex and Gender Information Value Date Recorded Sex Assigned at Not on file Legal Sex Male 1:09 PM CDT Gender Identity Not on file Sexual Orientation Not on file documented as of this encounter Miscellaneous Notes * [employer]ner Conversion Note - Historical ProviderMD - 05/06/2019 5:00 AM FRUIT COORDINATOR Height and Weight, Routine Entered On: 05/07/2019 7:31 EST Performed On: 05/06/2019 5:00 EST by Bessie Lugo [facility] COORD Height and Weight, Routine Routine Weight Source : Bed scale Routine Weight Entry Format : [place] Routine Weight, Pounds : 233 lb Routine Weight, Ounces : 1 oz Routine Weight Calculation : 105.94 kg Height Source : Stated Height Entry Format : [place] Height, Feet : 6 ft Height, Inches : 0 Inch Clinical Height : 182.88 cm Body Surface Area (BSA), Routine : 2.28 m2 Body Mass Index (BMI), Routine : 31.68 kg/m2 Bessie Lugo [facility] - 05/07/2019 7:30 EST documented in this encounter Plan of Treatment Not on file documented as of this encounter Visit Diagnoses Not on filedocumented in this encounter
--- OUTSIDE RECORDS SUMMARY | 2025-03-03 10:24 | XMS_ITS | Encounter Summary ---
Author Organization [employer] ([place], [place], [place], [place], [place]) Address [address] [place] [address] Care Team Providers Care Physicist Solid State Name Role Phone Unavailable Primary Care Provider Unavailabl e Encounter Details Date Type Department Care Team (Late st Contact Info) Description 05/03/2019 Transcribed Document [facility] [facility] [place] [facility] [place] [address] ProviderMg MD [facility] [place] [address] Social History Tobacco Use Types Packs/Day Years Used Date Smoking Tobacco: Never Assessed Sex and Gender Information Value Date Recorded Sex Assigned at Not on file Legal Sex Male 1:09 PM CDT Gender Identity Not on file Sexual Orientation Not on file documented as of this encounter Miscellaneous Notes * [employer]ner Conversion Note - Historical ProviderMD - 05/03/2019 8:[address] REPAIRER [facility] OT Charges Entered On: 05/03/2019 8:59 EST Performed On: 05/03/2019 8:59 EST by NAHUM CORNELIUS OTR/Kaushal Hager OT Charges Screen For Retail Sales Assistant : 1 NAHUM CORNELIUS OTR/Kaushal - 05/03/2019 8:59 EST documented in this encounter Plan of Treatment Not on file documented as of this encounter Visit Diagnoses Not on filedocumented in this encounter
--- OUTSIDE RECORDS SUMMARY | 2025-03-03 10:24 | XMS_ITS | Encounter Summary ---
Author Organization [employer] ([place], [place], [place], [place], [place]) Address [address] [place] [address] Care Team Providers Care Head Operator Name Role Phone Unavailable Primary Care Provider Unavailabl e Encounter Details Date Type Department Care Team (Late st Contact Info) Description 05/03/2019 Transcribed Document [facility] [place] Family Medicine [address] [place] [address] ProviderMg MD [facility] [place] [address] Social History Tobacco Use Types Packs/Day Years Used Date Smoking Tobacco: Never Assessed Sex and Gender Information Value Date Recorded Sex Assigned at Not on file Legal Sex Male 1:09 PM CDT Gender Identity Not on file Sexual Orientation Not on file documented as of this encounter Miscellaneous Notes * [employer]ner Conversion Note - Historical ProviderMD - 05/03/2019 9:34 AM DATA ACQUISITION TECHNICIAN Spiritual Care Short Form Entered On: 05/03/2019 10:39 EST Performed On: 05/03/2019 9:34 EST by ANIKA MANRIQUEZ Chaplain-Non Cert General Information, Spiritual Care Spiritual Care Referred by : Interdisciplinary Team rounds Reason for Visit : Initial Intervention/Comment/Summary Points : Jose is a 48-year-old patient who is receiving care for heart-related issues. The nurse updated the IDT on diagnosis and plan of care. ANIKA MANRQIUEZ Chaplain-Non Cert - 05/03/2019 10:37 EST documented in this encounter Plan of Treatment Not on file documented as of this encounter Visit Diagnoses Not on filedocumented in this encounter
--- OUTSIDE RECORDS SUMMARY | 2025-03-03 10:24 | XMS_ITS | Encounter Summary ---
Author Organization [employer] ([place], [place], [place], [place], [place]) Address [address] [place] [address] Care Team Providers Care Aoc Operations Intelligence Chief Name Role Phone Unavailable Primary Care Provider Unavailabl e Encounter Details Date Type Department Care Team (Late st Contact Info) Description 05/06/2019 Transcribed Document [facility] [place] [facility] [place] [address] ProviderMg MD [facility] [place], [place] [address] Social History Tobacco Use Types Packs/Day Years Used Date Smoking Tobacco: Never Assessed Sex and Gender Information Value Date Recorded Sex Assigned at Not on file Legal Sex Male 1:09 PM CDT Gender Identity Not on file Sexual Orientation Not on file documented as of this encounter Miscellaneous Notes * [employer]ner Conversion Note - Historical ProviderMD - 05/06/2019 5:00 AM PROMOTIONS INTERN Chart Check - Review Order Profile Entered [...]
--- OUTSIDE RECORDS SUMMARY | 2025-03-03 10:24 | XMS_ITS | Encounter Summary ---
Author Organization [employer] ([place], [place], [place], [place], [place]) Address [address] [place] [address] Care Team Providers Care Manual Lathe Operator Name Role Phone Unavailable Primary Care Provider Unavailabl e Encounter Details Date Type Department Care Team (Late st Contact Info) Description 05/03/2019 Transcribed Document [facility] [place] [facility] [place] [address] ProviderMg MD [facility] [place], [place] [id number] Social History Tobacco Use Types Packs/Day Years Used Date Smoking Tobacco: Never Assessed Sex and Gender Information Value Date Recorded Sex Assigned at Not on file Legal Sex Male 1:09 PM CDT Gender Identity Not on file Sexual Orientation Not on file documented as of this encounter Miscellaneous Notes * Cerner Conversion Note - Mg Ritchie MD - 05/03/2019 9:58 AM METAL AND PLASTIC HEATER Patient: JOSE PEARSON Age: 48 years Sex: [...] Gastrointestinal: Normal bowel sounds. Integumentary: Warm, Dry, [place]. Results Review General results Today's results 05/03/2019 [...]
--- OUTSIDE RECORDS SUMMARY | 2025-03-03 10:24 | XMS_ITS | Encounter Summary ---
Author Organization [employer] ([place], [place], [place], [place], [place]) Address [address] [place] [address] Care Team Providers Care Painting Contractor Name Role Phone Unavailable Primary Care Provider Unavailabl e Encounter Details Date Type Department Care Team (Late st Contact Info) Description 05/06/2019 Transcribed Document [facility] [place] Family Medicine [address] [place] [address] ProviderMg MD [address] [place], [place] [address] Social History Tobacco Use Types Packs/Day Years Used Date Smoking Tobacco: Never Assessed Sex and Gender Information Value Date Recorded Sex Assigned at Not on file Legal Sex Male 1:09 PM CDT Gender Identity Not on file Sexual Orientation Not on file documented as of this encounter Miscellaneous Notes * [employer] Conversion Note - Historical ProviderMD - 05/06/2019 10:45 AM STUDENT SERVICES REPRESENTATIVE Event Note Entered On: 05/06/2019 10:47 EST Performed On: 05/06/2019 10:45 EST by Erika Robles RN Event Note Event Date/Time : 05/06/2019 10:45 EST Description of Event : pt has had 2 runs of V-tach with the first one being shown to Mayito TOIRBIO who states the pt has been having [...]
--- OUTSIDE RECORDS SUMMARY | 2025-03-03 10:24 | XMS_ITS | Encounter Summary ---
Author Organization [facility] Address [address] [place] [address] Care Team Providers Care Molded Parts Inspector Name Role Phone Herberth Perez MD Primary Care Provider [phone] Katrin Oviedo RN Unavailable [phone] Zaida Lafleur CORE DRILLER HELPER Unavailable Gracai Petersen CORE DRILLER HELPER Unavailable Yunior Solorzano MD Unavailable [phone] Ross Baez DO Unavailable Edith Aleman RN Unavailable Unavailable Reason for Visit * Reason Comments Med Refill Encounter Details Date Type Department Care Team (Late st Contact Info) Description 06/23/2022 Refill [facility]ious [facility] [address] [place] [id number] Mayra Arroyo MD [address] [facility] [address] [facility] [address] [place] [address] Social History Tobacco Use Types Packs/Day Years [...] drink first t janine in the morning (EYE-PSYCHIATRIC ATTENDANT) to steady your nerves or to [...] Description 04/22/2025 9:00 AM EST Ancillary Procedure [facility] [place] [address] [place] [address] documented as of this encounter Visit Diagnoses [...] documented as of this encounter Care Teams Molded Parts Inspector Relationship Specialty Start Date End Date Herberth Perez MD [address] [place] [address] [place] [address] PCP - General 07/17/20 Katrin Oviedo, RN [facility] [address] [place] [address] VAD Coordinator Cardiology 08/06/20 10/21/24 Zaida Lafleur APRN [address] [place] [address] Nurse Practitioner Advanced Heart Failure and Transplant Cardiology 08/06/20 06/11/23 Gracia Petersen, CORE DRILLER HELPER [address] [place] [address] Nurse Practitioner Internal Medicine 08/06/20 Yunior Solorzano MD [address] [address] Consulting Physician Gastroenterology 07/18/22 Ross Baez DO [address] [address] Surgeon Cardiothoracic Surgery 07/18/22 Edith Aleman, ABRASIVE GRINDER None VAD Coordinator 10/14/24 documented as of this encounter
--- OUTSIDE RECORDS SUMMARY | 2025-03-03 10:24 | XMS_ITS | Encounter Summary ---
Author Organization [employer] ([place], [place], [place], [place], [place]) Address [address] [place] [address] Care Team Providers Care Fire Safety Director Name Role Phone Unavailable Primary Care Provider Unavailabl e Encounter Details Date Type Department Care Team (Late st Contact Info) Description 05/06/2019 Transcribed Document [facility] [place] Family [place] [address] ProviderMg MD [facility] [place] [id number] Social History Tobacco Use Types Packs/Day Years Used Date Smoking Tobacco: Never Assessed Sex and Gender Information Value Date Recorded Sex Assigned at Not on file Legal Sex Male 1:09 PM CDT Gender Identity Not on file Sexual Orientation Not on file documented as of this encounter Miscellaneous Notes * [employer] Conversion Note - Mg Ritchie MD - 05/06/2019 11:29 AM BOBBIN INSPECTOR Patient: JOSE PEARSON Age: 48 years [...] 135 mL/Hr, IV Piggyback, Daily Flonase: 1 [place], Nostrils Both, BID Melatonin: 3 mg, Oral, [...] now 12 years past diagnosis. - Per [employer] - CardioMEMS approval with [place] may take several weeks - will have [...]
--- OUTSIDE RECORDS SUMMARY | 2025-03-03 10:24 | XMS_ITS | Encounter Summary ---
Author Organization [employer] ([place], [place], [place], [place], [place]) Address [address] [place] [address] Care Team Providers Care Ocean Biologist Name Role Phone Unavailable Primary Care Provider Unavailabl e Encounter Details Date Type Department Care Team (Late st Contact Info) Description 05/03/2019 Transcribed Document [facility] [place] [facility] [place] [address] ProviderMg MD [facility] [place] [address] Social History Tobacco Use Types Packs/Day Years Used Date Smoking Tobacco: Never Assessed Sex and Gender Information Value Date Recorded Sex Assigned at Not on file Legal Sex Male 1:09 PM CDT Gender Identity Not on file Sexual Orientation Not on file documented as of this encounter Miscellaneous Notes * [employer] Conversion Note - Historical ProviderMD - 05/03/2019 10:[address] [facility] PT Charges Entered On: 05/03/2019 [...]
--- OUTSIDE RECORDS SUMMARY | 2025-03-03 10:24 | XMS_ITS | Encounter Summary ---
Author Organization [employer] ([place], [place], [place], [place], [place]) Address [address] [place] [address] Care Team Providers Care Still Operator Helper Name Role Phone Unavailable Primary Care Provider Unavailabl e Encounter Details Date Type Department Care Team (Late st Contact Info) Description 05/06/2019 Transcribed Document [facility] [place] Family Medicine [address] [place] [address] ProviderMg MD [facility] [place] [address] Social History Tobacco Use Types Packs/Day Years Used Date Smoking Tobacco: Never Assessed Sex and Gender Information Value Date Recorded Sex Assigned at Not on file Legal Sex Male 1:09 PM CDT Gender Identity Not on file Sexual Orientation Not on file documented as of this encounter Miscellaneous Notes * [employer]ner Conversion Note - Mg ProviderMD - 05/06/2019 9:45 AM DIRECTOR BUSINESS TRAVEL Spiritual Care Short Form Entered On: 05/06/2019 [...]
--- OUTSIDE RECORDS SUMMARY | 2025-03-03 10:24 | XMS_ITS | Encounter Summary ---
Author Organization [employer] ([place], [place], [place], [place], [place]) Address [address] [place] [address] Care Team Providers Care Marine Extension Agent Name Role Phone Unavailable Primary Care Provider Unavailabl e Encounter Details Date Type Department Care Team (Late st Contact Info) Description 05/06/2019 Transcribed Document [facility] [place] [facility] [place] [address] ProviderMg MD [facility] [place] [address] Social History Tobacco Use Types Packs/Day Years Used Date Smoking Tobacco: Never Assessed Sex and Gender Information Value Date Recorded Sex Assigned at Not on file Legal Sex Male 1:09 PM CDT Gender Identity Not on file Sexual Orientation Not on file documented as of this encounter Miscellaneous Notes * Cerner Conversion Note - Mg ProviderMD - 05/06/2019 1:43 PM APPLICATION SUPPORT ADMINISTRATOR UM Authorization Entered On: 05/06/2019 13:44 EST Performed On: 05/06/2019 13:43 EST by CHARLA BARRAZA RN-Utilization Review Primary Insurance Authorization Authorization and Policy Numbers : Insurance 1 Health Plan: [facility] Policy Number: Authorization Number: Insurance Primary Name : [facility] Administators [id number] Authorization Status-Primary : Admit approved Authorization Number-Primary : [id number] Number of Days Authorized-Primary : 4 Day(s) Authorized Service Begin Date-Primary : 05/03/2019 EST Authorized Service End Date-Primary : 05/07/2019 EST Authorization Comments-Primary : Ruben approved per Katrin for 5 days total --- nrd 05/07 Historical Authorization Comments-Primary : Comment 1: Uploaded continuing stay clinicals (05/06/19) to [facility] via [employer]. (ARMANDO SHANNON RN-Utilization Review 05/06/2019 12:11) Comment 2: Per [employer], admit approved with auth #[id number] given from 05/03-05/05/19. Next review date 05/06/19. (ARMANDO SHANNON, RN-Utilization Review 05/06/2019 08:05) Comment 3: Uploaded clinicals to [facility] administrators via [employer]. Manually faxed [employer] form. (ARMANDO SHANNON, MARYCARMEN-Utilization Review 05/03/2019 13:31) CHARLA BARRAZA RN-Utilization Review - 05/06/2019 13:43 EST documented in this encounter Plan of Treatment Not on file documented as of this encounter Visit Diagnoses Not on filedocumented in this encounter
--- OUTSIDE RECORDS SUMMARY | 2025-03-03 10:24 | XMS_ITS | Encounter Summary ---
Author Organization [employer] ([place], [place], [place], [place], [place]) Address [address] [place] [address] Care Team Providers Care Supervising Editor News Reel Name Role Phone Unavailable Primary Care Provider Unavailabl e Encounter Details Date Type Department Care Team (Late st Contact Info) Description 05/03/2019 Transcribed Document [facility] [place] Family Medicine [facility] [place] [address] ProviderMg MD [facility] [place] [address] Social History Tobacco Use Types Packs/Day Years Used Date Smoking Tobacco: Never Assessed Sex and Gender Information Value Date Recorded Sex Assigned at Not on file Legal Sex Male 1:09 PM CDT Gender Identity Not on file Sexual Orientation Not on file documented as of this encounter Miscellaneous Notes * [employer]ner Conversion Note - Historical ProviderMD - 05/03/2019 5:00 AM DRAIN CLEANER PLUMBER Chart Check - Review Order Profile Entered [...]
--- OUTSIDE RECORDS SUMMARY | 2025-03-03 10:24 | XMS_ITS | Encounter Summary ---
Author Organization [employer] ([place], [place], [place], [place], [place]) Address [address] [place] [address] Care Team Providers Care Aeronautical Products Sales Engineer Name Role Phone Unavailable Primary Care Provider Unavailabl e Encounter Details Date Type Department Care Team (Late st Contact Info) Description 05/06/2019 Transcribed Document [facility] [place] Family Medicine [facility] [place] [address] ProviderMg [place] [facility] [place] [address] Social History Tobacco Use Types Packs/Day Years Used Date Smoking Tobacco: Never Assessed Sex and Gender Information Value Date Recorded Sex Assigned at Not on file Legal Sex Male 1:09 PM CDT Gender Identity Not on file Sexual Orientation Not on file documented as of this encounter Miscellaneous Notes * Cerner Conversion Note - Mg ProviderMD - 05/06/2019 10:56 AM COTTON CLEANER On Going Discharge Planning Entered On: 05/06/2019 11:03 EST Performed On: 05/06/2019 10:56 EST by TANVIR THAYER Rn-Class B Truck DriverFlyer Builder Progress Note Discharge Arrangements : Patient Post-Acute Information Patient Name: JOSE PEARSON Gender: Male : [birth year] Age: 48 Years No Post-Acute Placement(s) Listed No Post-Acute Service(s) Listed No Cur[place]pan Referral(s) Listed Is the Patient Meeting Medical Necessity : Yes Did you Attend Multidisciplinary Rounds? : Yes TANVIR THAYER Rn-Class B Truck Driver - 05/06/2019 10:56 EST Narrative Progress Note Narrative Progress Note : Per RN in Multidisciplinary rounds patient is NPO for scheduled Cardiomems today. Having some nausea after Fe Infusions requested the infusion be held until after procedure so he can eat. CM will follow. TANVIR THAYER Rn-Class B Truck Driver - 05/06/2019 10:56 EST documented in this encounter Plan of Treatment Not on file documented as of this encounter Visit Diagnoses Not on filedocumented in this encounter
--- OUTSIDE RECORDS SUMMARY | 2025-03-03 10:24 | XMS_ITS | Encounter Summary ---
Author Organization [employer] ([place], [place], [place], [place], [place]) Address [address] [place] [address] Care Team Providers Care Air Pollution Compliance Inspector Name Role Phone Unavailable Primary Care Provider Unavailabl e Encounter Details Date Type Department Care Team (Late st Contact Info) Description 05/04/2019 Transcribed Document [facility] [place] Family Medicine [address] [place] [address] ProviderMg [place] [address] Social History Tobacco Use Types Packs/Day Years Used Date Smoking Tobacco: Never Assessed Sex and Gender Information Value Date Recorded Sex Assigned at Not on file Legal Sex Male 1:09 PM CDT Gender Identity Not on file Sexual Orientation Not on file documented as of this encounter Miscellaneous Notes * [employer]ner Conversion Note - Historical ProviderMD - 05/04/2019 5:00 AM EMPLOYMENT SPECIALIST/PROGRAM MANAGER Chart Check - Review Order Profile [...]
--- OUTSIDE RECORDS SUMMARY | 2025-03-03 10:24 | XMS_ITS | Encounter Summary ---
Author Organization [employer] ([place], [place], [place], [place], [place]) Address [address] [place] [address] Care Team Providers Care Housekeeper Home Name Role Phone Unavailable Primary Care Provider Unavailabl e Encounter Details Date Type Department Care Team (Late st Contact Info) Description 05/07/2019 Transcribed Document [facility] [place] [facility] [place] [address] ProviderMg MD [facility] [place] [address] Social History Tobacco Use Types Packs/Day Years Used Date Smoking Tobacco: Never Assessed Sex and Gender Information Value Date Recorded Sex Assigned at Not on file Legal Sex Male 1:09 PM CDT Gender Identity Not on file Sexual Orientation Not on file documented as of this encounter Miscellaneous Notes * [employer]ner Conversion Note - Mg ProviderMD - 05/07/2019 2:55 PM COMMERCIAL ESCROW OFFICER On Going Discharge Planning Entered On: 05/07/2019 15:01 EST Performed On: 05/07/2019 14:55 EST by Alyse Townsend Social Worker-Hot Plate Plywood Press Laborer Care Management Progress Note Discharge Arrangements : Patient Post-Acute Information Patient Name: JOSE PEARSON Gender: Male : [birth year] Age: 48 Years No Post-Acute Placement(s) Listed No Post-Acute Service(s) Listed No Curaspan Referral(s) Listed Alyse Townsend Social Worker-Hot Plate Plywood Press Laborer - 05/07/2019 14:55 EST Narrative Progress Note Narrative Progress Note : 05/06 Received order to make referral to [facility] outpatient cardiac transplant program. Contacted [facility] appointment telephone number [phone]. They report the person who typically takes the referrals is unavailable and they will have her contact CM back. CM contact information was provided. They report the referral/academic coordinator is Kailey PH: [phone]. Historical Progress Note : Per RN in Multidisciplinary rounds patient is NPO for scheduled Cardiomems today. Having some nausea after Fe Infusions requested the infusion be held until after procedure so he can eat. CM will follow. TANVIR THAYER Rn-Ecommerce Analyst - 05/06/19 11:03:45 Alyse Townsend, Rn Otolaryngology-Hot Plate Plywood Press Laborer - 05/07/2019 14:55 EST documented in this encounter Plan of Treatment Not on file documented as of this encounter Visit Diagnoses Not on filedocumented in this encounter
--- OUTSIDE RECORDS SUMMARY | 2025-03-03 10:24 | XMS_ITS | Encounter Summary ---
Author Organization [employer] ([place], [place], [place], [place], [place]) Address [address] [place] [address] Care Team Providers Care Faucets Assembler Name Role Phone Unavailable Primary Care Provider Unavailabl e Encounter Details Date Type Department Care Team (Late st Contact Info) Description 05/07/2019 Transcribed Document [facility] [place] Family Medicine [facility] [place] [address] ProviderMg MD [facility] [place] [address] Social History Tobacco Use Types Packs/Day Years Used Date Smoking Tobacco: Never Assessed Sex and Gender Information Value Date Recorded Sex Assigned at Not on file Legal Sex Male 1:09 PM CDT Gender Identity Not on file Sexual Orientation Not on file documented as of this encounter Miscellaneous Notes * [employer]ner Conversion Note - Mg Ritchie MD - 05/07/2019 1:19 PM ALTERATION SPECIALIST Patient: JOSE PEARSON Age: 48 years [...] 135 mL/Hr, IV Piggyback, Daily Flonase: 1 Bland, Nostrils Both, BID Melatonin: 3 mg, Oral, [...] care. Electronically signed by Morales Mejia Conversion Spiral Winding Machine Helper Cerner at 06/19/2022 10:54 PM CDT documented in this encounter Plan of Treatment Not on file documented as of this encounter Visit Diagnoses Not on filedocumented in this encounter
--- OUTSIDE RECORDS SUMMARY | 2025-03-03 10:24 | XMS_ITS | Encounter Summary ---
Author Organization [employer] ([place], [place], [place], [place], [place]) Address [address] [place] [address] Care Team Providers Care Die Maker Electronic Name Role Phone Unavailable Primary Care Provider Unavailabl e Encounter Details Date Type Department Care Team (Late st Contact Info) Description 05/06/2019 Transcribed Document [facility] [place] Family Medicine [facility] [place] [address] ProviderMg MD [facility] [place] [address] Social History Tobacco Use Types Packs/Day Years Used Date Smoking Tobacco: Never Assessed Sex and Gender Information Value Date Recorded Sex Assigned at Not on file Legal Sex Male 1:09 PM CDT Gender Identity Not on file Sexual Orientation Not on file documented as of this encounter Miscellaneous Notes * Cerner Conversion Note - Historical ProviderMD - 05/06/2019 5:09 PM PHARMACY TECHNOLOGY INSTRUCTOR Event Note Entered On: 05/06/2019 19:44 EST Performed On: 05/06/2019 17:09 EST by Gracia Carl, Bobbin HandlerHealth Unit Coord Event Note Event Date/Time : 05/06/2019 17:09 EST Event Location : Assigned room Event Details : Other: Transfer Gracia Carl Bobbin Handler-Health Unit Coord - 05/06/2019 19:43 EST Description of Event : Pt transferred from ICU via wheelchair accompanied by RN. Pt is A&Ox4 w/ no signs of distress or discomfort. Oriented pt to room & call light. at bedside. Agree w/ previous assessment unless otherwise noted. Will continue to monitor for changes. Gracia Carl Bobbin Handler-Health Unit Coord - 05/06/2019 19:48 EST documented in this encounter Plan of Treatment Not on file documented as of this encounter Visit Diagnoses Not on filedocumented in this encounter
--- OUTSIDE RECORDS SUMMARY | 2025-03-03 10:24 | XMS_ITS | Encounter Summary ---
Author Organization [employer] ([place], [place], [place], [place], [place]) Address [address] [place] [address] Care Team Providers Care Subway Train Driver Name Role Phone Unavailable Primary Care Provider Unavailabl e Encounter Details Date Type Department Care Team (Late st Contact Info) Description 05/06/2019 Transcribed Document [facility] [place] Family Medicine [facility] [place] [address] ProviderMg MD [facility] [place] [address] Social History Tobacco Use Types Packs/Day Years Used Date Smoking Tobacco: Never Assessed Sex and Gender Information Value Date Recorded Sex Assigned at Not on file Legal Sex Male 1:09 PM CDT Gender Identity Not on file Sexual Orientation Not on file documented as of this encounter Miscellaneous Notes * [employer] Conversion Note - Mg ProviderMD - 05/06/2019 10:25 AM TALENT ACQUISITION PROJECT MANAGER Spiritual Care Short Form Entered On: 05/06/2019 11:48 EST Performed On: 05/06/2019 10:25 EST by ANIKA MANRIQUEZ Chaplain-Non Cert General Information, Spiritual Care Spiritual Care Referred by : Pantomimist initiated Reason for Visit : Follow Up [...]
--- OUTSIDE RECORDS SUMMARY | 2025-03-03 10:24 | XMS_ITS | Encounter Summary ---
Author Organization [employer] ([place], [place], [place], [place], [place]) Address [address] [place] [address] Care Team Providers Care Community Action Worker Name Role Phone Unavailable Primary Care Provider Unavailabl e Encounter Details Date Type Department Care Team (Late st Contact Info) Description 05/06/2019 Transcribed Document [facility] [place] [facility] [place] [address] ProviderMg MD [facility] [place] [address] Social History Tobacco Use Types Packs/Day Years Used Date Smoking Tobacco: Never Assessed Sex and Gender Information Value Date Recorded Sex Assigned at Not on file Legal Sex Male 1:09 PM CDT Gender Identity Not on file Sexual Orientation Not on file documented as of this encounter Miscellaneous Notes * [employer]ner Conversion Note - Historical ProviderMD - 05/06/2019 10:07 AM COLLECTION TECHNICIAN Event Note Entered On: 05/06/2019 10:08 EST Performed On: 05/06/2019 10:07 EST by Erika Robles RN Event Note Event Date/Time : 05/06/2019 10:07 EST Description of Event : Per Mayito TORIBIO pt can be given Erika Alonso RN - 05/06/2019 10:07 EST Electronically signed by Jackie [facility] Conversion Credit Front Office Developer [employer] at 06/19/2022 11:01 PM CDT documented in this encounter Plan of Treatment Not on file documented as of this encounter Visit Diagnoses Not on filedocumented in this encounter
--- OUTSIDE RECORDS SUMMARY | 2025-03-03 10:24 | XMS_ITS | Encounter Summary ---
Author Organization [employer] ([place], [place], [place], [place], [place]) Address [address] [place] [address] Care Team Providers Care General Teller Name Role Phone Unavailable Primary Care Provider Unavailabl e Encounter Details Date Type Department Care Team (Late st Contact Info) Description 05/06/2019 Transcribed Document [facility] [place] [facility] [place] [address] ProviderMg MD [facility] [place], [place] [address] Social History Tobacco Use Types Packs/Day Years Used Date Smoking Tobacco: Never Assessed Sex and Gender Information Value Date Recorded Sex Assigned at Not on file Legal Sex Male 1:09 PM CDT Gender Identity Not on file Sexual Orientation Not on file documented as of this encounter Miscellaneous Notes * [employer]ner Conversion Note - Historical ProviderMD - 05/06/2019 2:00 AM SUPERVISOR METAL FABRICATING [employer] Machine Assembler Details Entered On: 05/06/2019 6:56 EST Performed [...]
--- OUTSIDE RECORDS SUMMARY | 2025-03-03 10:24 | XMS_ITS | Encounter Summary ---
Author Organization [employer] ([place], [place], [place], [place], [place]) Address [address] [place] [address] Care Team Providers Care Starch Cooker Name Role Phone Unavailable Primary Care Provider Unavailabl e Encounter Details Date Type Department Care Team (Late st Contact Info) Description 05/06/2019 Transcribed Document [facility] [place] [facility] [place] [address] ProviderMg MD [facility] [place] [address] Social History Tobacco Use Types Packs/Day Years Used Date Smoking Tobacco: Never Assessed Sex and Gender Information Value Date Recorded Sex Assigned at Not on file Legal Sex Male 1:09 PM CDT Gender Identity Not on file Sexual Orientation Not on file documented as of this encounter Miscellaneous Notes * [employer]ner Conversion Note - Mg ProviderMD - 05/06/2019 8:05 AM GREEN MARKETING SPECIALIST UM Authorization Entered On: 05/06/2019 8:17 EST Performed On: 05/06/2019 8:05 EST by ARMANDO SHANNON RN-Utilization Review Primary Insurance Authorization Authorization and Policy Numbers : Insurance 1 Health Plan: [facility] Policy Number: Authorization Number: Insurance Primary Name : [employer] Administators Authorization Status-Primary : Admit approved Authorization Number-Primary : [id number] Authorized Service Begin Date-Primary : 05/03/2019 EST Authorization Comments-Primary : Per [facility], admit approved with auth #[id number] given from 05/03-05/05/19. Next review date 05/06/19. Historical Authorization Comments-Primary : Comment 1: Uploaded clinicals to [employer] administrators via [employer]. Manually faxed [employer] form. (ARMANDO SHANNON RN-Utilization Review 05/03/2019 13:31) ARMANDO SHANNON RN-Utilization Review - 05/06/2019 8:05 EST Electronically signed by Jackie [facility] Conversion Finishing Manager [employer] at 06/19/2022 11:08 PM CDT documented in this encounter Plan of Treatment Not on file documented as of this encounter Visit Diagnoses Not on filedocumented in this encounter
--- OUTSIDE RECORDS SUMMARY | 2025-03-03 10:24 | XMS_ITS | Encounter Summary ---
Author Organization [employer] ([place], [place], [place], [place], [place]) Address [address] [place] [address] Care Team Providers Care Gang Ripsaw Operator Name Role Phone Unavailable Primary Care Provider Unavailabl e Encounter Details Date Type Department Care Team (Late st Contact Info) Description 05/06/2019 Transcribed Document [facility] [place] Family Medicine [address] [place] [address] ProviderMg MD [facility] [place] [address] Social History Tobacco Use Types Packs/Day Years Used Date Smoking Tobacco: Never Assessed Sex and Gender Information Value Date Recorded Sex Assigned at Not on file Legal Sex Male 1:09 PM CDT Gender Identity Not on file Sexual Orientation Not on file documented as of this encounter Miscellaneous Notes * [employer] Conversion Note - Historical ProviderMD - 05/06/2019 5:00 PM FINE CRAFT ARTIST Chart Check - Review Order Profile Entered On: 05/06/2019 19:45 EST Performed On: 05/06/2019 17:00 EST by Gracia Carl, Print Line InspectorHealth Unit Coord Chart Check Powerplans Initiated/Discontinued as Appropriate : Yes All Active Orders Reviewed : Yes Gracia Carl Print Line Inspector-Health Unit Coord - 05/06/2019 19:45 EST Electronically signed by Jackie [facility] Conversion Corporate Legal Intern [employer] at 06/19/2022 10:58 PM CDT documented in this encounter Plan of Treatment Not on file documented as of this encounter Visit Diagnoses Not on filedocumented in this encounter
--- OUTSIDE RECORDS SUMMARY | 2025-03-03 10:25 | XMS_ITS | Encounter Summary ---
Author Organization [employer] ([place], [place], [place], [place], [place]) Address [address] [place] [address] Care Team Providers Care Telemetry Nurse Name Role Phone Unavailable Primary Care Provider Unavailabl e Encounter Details Date Type Department Care Team (Late st Contact Info) Description 04/20/2018 Transcribed Document [facility] [place] [facility] [place] [address] ProviderMg MD [facility] [place], [place] [address] Social History Tobacco Use Types Packs/Day Years Used Date Smoking Tobacco: Never Assessed Sex and Gender Information Value Date Recorded Sex Assigned at Not on file Legal Sex Male 1:09 PM CDT Gender Identity Not on file Sexual Orientation Not on file documented as of this encounter Miscellaneous Notes * [employer] Conversion Note - Historical ProviderMD - 04/20/2018 2:00 AM MEAT MOLDER Database Designer Details Entered On: 04/20/2018 5:45 EST Performed [...]
--- OUTSIDE RECORDS SUMMARY | 2025-03-03 10:25 | XMS_ITS | Encounter Summary ---
Author Organization [employer] ([place], [place], [place], [place], [place]) Address [address] [place] [address] Care Team Providers Care Olive Packer Name Role Phone Unavailable Primary Care Provider Unavailabl e Encounter Details Date Type Department Care Team (Late st Contact Info) Description 03/29/2018 Transcribed Document [facility] [place] [facility] [place] [address] ProviderMg MD [facility] [place], [place] [address] Social History Tobacco Use Types Packs/Day Years Used Date Smoking Tobacco: Never Assessed Sex and Gender Information Value Date Recorded Sex Assigned at Not on file Legal Sex Male 1:09 PM CDT Gender Identity Not on file Sexual Orientation Not on file documented as of this encounter Miscellaneous Notes * [employer] Conversion Note - Mg ProviderMD - 03/29/2018 10:57 AM DIVISION CHIEF Patient: JOSE PEARSON Age: 47 years [...] A. fib. Electronically signed by Jackie [facility] Conversion Technician Support Engineer [employer] at 06/19/2022 11:01 PM CDT documented in this encounter Plan of Treatment Not on file documented as of this encounter Visit Diagnoses Not on filedocumented in this encounter
--- OUTSIDE RECORDS SUMMARY | 2025-03-03 10:25 | XMS_ITS | Encounter Summary ---
Author Organization [facility] Address [address] [place] [address] Care Team Providers Care Sergeant Of Corrections Name Role Phone Herberth Perez MD Primary Care Provider [phone] Gracia Petersen ROSS FURNACE OPERATOR Unavailable [phone] Yunior Solorzano MD Unavailable [phone] Ross Baez DO Unavailable [phone] Edith Aleman RN Unavailable Unavailable Encounter Details Date Type Department Care Team (Late st Contact Info) Description 01/08/2025 [facility] [place] [address] [place] [address] Edith Aleman, INTELLIGENCE CONSULTANT None Social History Tobacco Use Types Packs/Day [...] drink first t janine in the morning (EYE-WIRELESS SALES ASSOCIATE) to steady your nerves or to [...] Description 04/22/2025 9:00 AM EST Ancillary Procedure [facility] [place] [address] [place] [address] documented as of this encounter Goals Goal Patient Goal Type Associated Problems Recent Progress Patient-Stated? Author LVAD Short Term Goal General On track( 11:53 AM EDT) Yes Katrin Oviedo, RN Note: - 07/04/23: Patient states he wants to attend a wedding in November in [place] LVAD Senior Living Goal General On track( 11:53 AM EDT) [...] documented as of this encounter Care Teams Sergeant Of Corrections Relationship Specialty Start Date End Date Herberth Perez MD [address] [place] [address] [place] [address] PCP - General 07/17/20 Gracia Petersen, LORI [address] [place] [address] Nurse Practitioner Internal Medicine 08/06/20 Yunior Solorzano MD [address] [place] [address] Consulting Physician Gastroenterology 07/18/22 Ross Baez, [address] [place] [address] Surgeon Cardiothoracic Surgery 07/18/22 Edith Aleman, INTELLIGENCE CONSULTANT None VAD Coordinator 10/14/24 documented as of this encounter
--- OUTSIDE RECORDS SUMMARY | 2025-03-03 10:25 | XMS_ITS | Encounter Summary ---
Author Organization [facility] Address [address] [place] [address] Care Team Providers Care Spray Drier Operator Name Role Phone Herberth Perez MD Primary Care Provider Katrin Oviedo RN Unavailable [phone] Zaida Lafleur RIB CLOTH KNITTER Unavailable [phone] Gracia Petersen RIB CLOTH KNITTER Unavailable Yunior Solorzano MD Unavailable [phone] Ross Baez DO Unavailable [phone] Edith Aleman RN Unavailable Unavailable Reason for Visit * Reason Comments Med Refill Encounter Details Date Type Department Care Team (Late st Contact Info) Description 08/14/2022 Refill [facility] [place] [address] [facility] [place] [address] Elisabet Raya MD [address] [place] [address] Social History Tobacco Use Types Packs/Day Years [...] drink first t janine in the morning (EYE-MINE TECHNICIAN) to steady your nerves or to get [...] Description 04/22/2025 9:00 AM EST Ancillary Procedure [facility] [place] [address] [facility] [place] [address] documented as of this encounter Visit Diagnoses [...] documented as of this encounter Care Teams Spray Drier Operator Relationship Specialty Start Date End Date Herberth Perez MD [address] [place] [address] [place] [address] PCP - General 07/17/20 Katrin Oviedo, [facility] VAD PROGRAM [address] [place] [address] VAD Coordinator Cardiology 08/06/20 10/21/24 Zaida Lafleur APRN [address] [place] [address] Nurse Practitioner Advanced Heart Failure and Transplant Cardiology 08/06/20 06/11/23 Gracia Petersen APRN [address] [place] [address] Nurse Practitioner Internal Medicine 08/06/20 Yunior Solorzano MD [address] [facility] [address] [place] [address] Consulting Physician Gastroenterology 07/18/22 Ross Baez, DO [address] [address] Surgeon Cardiothoracic Surgery 07/18/22 Edith Aleman, TELLER SUPERVISOR None VAD Coordinator 10/14/24 documented as of this encounter
--- OUTSIDE RECORDS SUMMARY | 2025-03-03 10:25 | XMS_ITS | Encounter Summary ---
Author Organization [employer] ([place], [place], [place], [place], [place]) Address [address] [place] [address] Care Team Providers Care Grinder Setup Operator Name Role Phone Unavailable Primary Care Provider Unavailabl e Encounter Details Date Type Department Care Team (Late st Contact Info) Description 04/20/2018 Transcribed Document [facility] [facility] [place] [address] ProviderMg MD [facility] [place] [address] Social History Tobacco Use Types Packs/Day Years Used Date Smoking Tobacco: Never Assessed Sex and Gender Information Value Date Recorded Sex Assigned at Not on file Legal Sex Male 1:09 PM CDT Gender Identity Not on file Sexual Orientation Not on file documented as of this encounter Miscellaneous Notes * Cerner Conversion Note - Historical ProviderMD - 04/20/2018 1:33 PM PETROLEUM REFINERY LABORER Nursing Discharge Summary Entered On: 04/20/2018 13:34 EST Performed On: 04/20/2018 13:33 EST by RAJAT NAZARIO health lead Documentation Patient Disposition, General : Discharge [...] 04/20/2018 13:33 EST Electronically signed by [facility] Conversion Child Support Specialist Cerner at 06/19/2022 11:02 PM CDT documented in this encounter Plan of Treatment Not on file documented as of this encounter Visit Diagnoses Not on filedocumented in this encounter
--- OUTSIDE RECORDS SUMMARY | 2025-03-03 10:25 | XMS_ITS | Encounter Summary ---
Author Organization [employer] ([place], [place], [place], [place], [place]) Address [address] [place] [address] Care Team Providers Care Polytechnic Teacher Name Role Phone Unavailable Primary Care Provider Unavailabl e Encounter Details Date Type Department Care Team (Late st Contact Info) Description 03/29/2018 Transcribed Document [facility] [address] [place] [address] ProviderMg MD [facility] [place] [address] Social History Tobacco Use Types Packs/Day Years Used Date Smoking Tobacco: Never Assessed Sex and Gender Information Value Date Recorded Sex Assigned at Not on file Legal Sex Male 1:09 PM CDT Gender Identity Not on file Sexual Orientation Not on file documented as of this encounter Miscellaneous Notes * Cerner Conversion Note - Historical ProviderMD - 03/29/2018 10:28 AM HAIRSPRING TRUING INSPECTOR Therapy Screen, PT Entered On: 03/29/2018 10:37 [...]
--- OUTSIDE RECORDS SUMMARY | 2025-03-03 10:25 | XMS_ITS | Encounter Summary ---
Author Organization [employer] ([place], [place], [place], [place], [place]) Address [address] [place] [address] Care Team Providers Care Cadd Operator Name Role Phone Unavailable Primary Care Provider Unavailabl e Encounter Details Date Type Department Care Team (Late st Contact Info) Description 03/29/2018 Transcribed Document [facility] [place] Family Medicine [facility] [place] [address] ProviderMg MD [place] [address] Social History Tobacco Use Types Packs/Day Years Used Date Smoking Tobacco: Never Assessed Sex and Gender Information Value Date Recorded Sex Assigned at Not on file Legal Sex Male 1:09 PM CDT Gender Identity Not on file Sexual Orientation Not on file documented as of this encounter Miscellaneous Notes * Cerner Conversion Note - Historical ProviderMD - 03/29/2018 10:[address] [facility] PT Charges Entered On: 03/29/2018 [...]
--- OUTSIDE RECORDS SUMMARY | 2025-03-03 10:25 | XMS_ITS | Encounter Summary ---
Author Organization [employer] ([place], [place], [place], [place], [place]) Address [address] [place] [address] Care Team Providers Care Technical Stenographer Name Role Phone Unavailable Primary Care Provider Unavailabl e Encounter Details Date Type Department Care Team (Late st Contact Info) Description 04/20/2018 Transcribed Document [facility] [place] Medicine [facility] [place] [address] ProviderMg MD [facility] [place] [address] Social History Tobacco Use Types Packs/Day Years Used Date Smoking Tobacco: Never Assessed Sex and Gender Information Value Date Recorded Sex Assigned at Not on file Legal Sex Male 1:09 PM CDT Gender Identity Not on file Sexual Orientation Not on file documented as of this encounter Miscellaneous Notes * Cerner Conversion Note - Historical ProviderMD - 04/20/2018 5:00 AM SENIOR EDUCATION SPECIALIST Height and Weight, Routine Entered On: 04/20/2018 6:00 EST Performed On: 04/20/2018 5:00 EST by Polly Renteria Care [facility] Unit Coord Height and Weight, Routine Routine Weight Source : Standing scale Routine Weight Entry Format : [place] Routine Weight, Pounds : 229 lb Routine Weight, Ounces : 7 oz Routine Weight Calculation : 104.29 kg Height Source : Stated Height Entry Format : [place] Height, Feet : 6 ft Height, Inches : 0 Inch Clinical Height : 182.88 cm Body Surface Area (BSA), Routine : 2.26 m2 Body Mass Index (BMI), Routine : 31.18 kg/m2 [facility]ly [facility] - 04/20/2018 6:00 EST documented in this encounter Plan of Treatment Not on file documented as of this encounter Visit Diagnoses Not on filedocumented in this encounter
--- OUTSIDE RECORDS SUMMARY | 2025-03-03 10:25 | XMS_ITS | Encounter Summary ---
Author Organization [employer] ([place], [place], [place], [place], [place]) Address [address] [place] [address] Care Team Providers Care Stitch Rubber Name Role Phone Unavailable Primary Care Provider Unavailabl e Encounter Details Date Type Department Care Team (Late st Contact Info) Description 03/29/2018 Transcribed Document [facility] [place] Family Medicine [facility] [place] [address] ProviderMg MD [facility] [place] [address] Social History Tobacco Use Types Packs/Day Years Used Date Smoking Tobacco: Never Assessed Sex and Gender Information Value Date Recorded Sex Assigned at Not on file Legal Sex Male 1:09 PM CDT Gender Identity Not on file Sexual Orientation Not on file documented as of this encounter Miscellaneous Notes * Cerner Conversion Note - Mg ProviderMD - 03/29/2018 1:39 PM PHARMACY CLERK [facility] [address], [place] [address] Patient Copy Patient Information: Name: JOSE PEARSON Current Date: 03/29/2018 13:39:19 : 1970 Patient Address: [address] [place] [address] Patient Attending Physician: Primary Care Provider: HUMA YARBROUGH (REF)MD-INT Primary Care Provider Discharge Diagnosis: Atrial fibrillation; NICM (nonischemic cardiomyopathy) Weight on Admission: 236 lb, 8 oz Weight at Discharge: 237 lb, 4 oz Comment: Follow-up Instructions: With: Address: When: [place] [address] [place] [address] Business (1) Within 2 weeks [...] Discharge Instructions (if any): Final Medication List: [facility], [address] [place], [place] [id number], [phone] sotalol (sotalol 120 mg oral tablet) 1 [...] nasal (fluticasone 50 mcg/inh nasal spray) 1 [place](s) Nostrils Both Every Day. furosemide (Lasix 40 [...] Other treatments may include cardiac resynchronization therapy (MOLECULAR BIOLOGY SCIENTIST) or a left ventricular assist device (LVAD). [...] to manage stress. General instructions ??? Take sbil-yxk-tcypgyq and prescription medicines only as told by [...] 05/05/2005 Document Revised: 10/18/2016 Document Reviewed: 08/22/2016 [employer] Interactive Patient Education ? 2017 [employer] Atrial Fibrillation Atrial fibrillation is a [...] ??? Certain heart rhythm disorders, such as Zxwq-Vyxrdlptm-Zmvpp syndrome. Other causes include: ??? Pneumonia. ??? [...] 02/20/2006 Document Revised: 06/29/2016 Document Reviewed: 06/17/2015 [employer] Interactive Patient Education ? 2017 [employer] Medication Leaflets: sotalol (JS ta lol) [...] may report side effects to FDA at 0-892-OUG-1597. What other drugs will affect sotalol? Many [...] interact with sotalol. This includes prescription and fhvs-sje-geehlbt medicines, vitamins, and herbal products. Give a [...] to ensure that the information provided by [employer]. ('Only Natural Pet [employer]') is accurate, up-to-date, and complete, but no guarantee is made to that effect. Drug information contained herein may be time sensitive. [employer] information has been compiled for use by healthcare practitioners and consumers in the [place] and therefore [employer] does not warrant that uses outside of the [place] are appropriate, unless specifically indicated otherwise. [employer] drug information does not endorse drugs, diagnose patients or recommend therapy. [employer] drug information is an informational resource designed [...] effective or appropriate for any given patient. [employer] does not assume any responsibility for any aspect of healthcare administered with the aid of information [employer] provides. The information contained herein is not intended to cover all possible uses, directions, precautions, warnings, drug interactions, allergic reactions, or adverse effects. If you have questions about the drugs you are taking, check with your doctor, nurse or pharmacist. Copyright 5654-1177 [employer]. Version: .. Revision Date: 02/18/2014. CIGARETTE SMOKING: The facts are clear, cigarette smoking will shorten your life. Smoking can cause many illnesses along the way. As a healthcare provider, we recommend that you stop smoking. Assistance with quitting is available by contacting 5-416-CXLT-NOW. This is a free resource providing counseling, [...] Be sure to sign up for the [employer] patient portal, which gives you 26/09 access to your medical information ??? including these discharge instructions ??? using your computer, smartphone, or tablet. Just go to KS12 to get started. Questions? Call . [facility] would like to thank you for allowing us to assist you with your healthcare needs. ANASTASIA Rich DENNIS PAUL, (or factory representative) have received the above patient education materials/instructions and have verbalized understanding: Patient Signature _ Date/Time Patient Sergeant At Arms Signature (if needed) Date/Time Clinician/Hospital Sergeant At Arms Signature (if needed) Date/Time Electronically signed by Jackie, [facility] Conversion Coordinator Of Rehabilitation Services Cerner at 06/19/2022 11:11 PM CDT documented in this encounter Plan of Treatment Not on file documented as of this encounter Visit Diagnoses Not on filedocumented in this encounter
--- OUTSIDE RECORDS SUMMARY | 2025-03-03 10:25 | XMS_ITS | Encounter Summary ---
Author Organization [employer] ([place], [place], [place], [place], [place]) Address [address] [place] [address] Care Team Providers Care Test Fixture Designer Name Role Phone Unavailable Primary Care Provider Unavailabl e Encounter Details Date Type Department Care Team (Late st Contact Info) Description 04/20/2018 Transcribed Document [facility] [place] [facility] [place] [address] ProviderMg MD [facility] [place] [address] Social History Tobacco Use Types Packs/Day Years Used Date Smoking Tobacco: Never Assessed Sex and Gender Information Value Date Recorded Sex Assigned at Not on file Legal Sex Male 1:09 PM CDT Gender Identity Not on file Sexual Orientation Not on file documented as of this encounter Miscellaneous Notes * Cerner Conversion Note - Mg ProviderMD - 04/20/2018 11:41 AM FLAVORING MAKER Patient: JOSE PEARSON Age: 47 years Sex: [...] Gastrointestinal: Normal bowel sounds. Integumentary: Warm, Dry, [place]. Results Review General results HYROID ULTRASOUND HISTORY: [...]
--- OUTSIDE RECORDS SUMMARY | 2025-03-03 10:25 | XMS_ITS | Encounter Summary ---
Author Organization [facility] Address [address] [place] [address] Care Team Providers Care Sulfur Chloride Operator Name Role Phone Herberth Perez MD Primary Care Provider [phone] Gracia Petersen BOTANY PROFESSOR Unavailable [phone] Yunior Solorzano MD Unavailable [phone] Ross Baez DO Unavailable [phone] Edith Aleman RN Unavailable Unavailable Encounter [...] any time in the past 12 m [facility], were you homeless or [...] drink first t janine in the morning (EYE-LOCAL SALES ASSOCIATE) to steady your nerves or [...] Description 04/22/2025 9:00 AM EST Ancillary Procedure [facility] [place] [address] [place] [address] documented as of this encounter Goals Goal [...] documented as of this encounter Care Teams Sulfur Chloride Operator Relationship Specialty Start Date End Date Herberth Perez MD [address] [place] [address] [place], [place] [id number] PCP - General 07/17/20 Gracia Petersen APRN [address] [place] [address] Nurse Practitioner Internal Medicine 08/06/20 Yunior Solorzano MD [address] [place] [address] Consulting Physician Gastroenterology 07/18/22 Ross Baez DO [address] [address] Surgeon Cardiothoracic Surgery 07/18/22 Edith Aleman, NETWORK DEVELOPER None VAD Coordinator 10/14/24 documented as of this encounter
--- OUTSIDE RECORDS SUMMARY | 2025-03-03 10:25 | XMS_ITS | Encounter Summary ---
Author Organization [employer] ([place], [place], [place], [place], [place]) Address [address] [place] [address] Care Team Providers Care On Air Director Name Role Phone Unavailable Primary Care Provider Unavailabl e Encounter Details Date Type Department Care Team (Late st Contact Info) Description 04/20/2018 Transcribed Document [facility] [place] [facility] [place] [address] ProviderMg MD [facility] [place] [address] Social History Tobacco Use Types Packs/Day Years Used Date Smoking Tobacco: Never Assessed Sex and Gender Information Value Date Recorded Sex Assigned at Not on file Legal Sex Male 1:09 PM CDT Gender Identity Not on file Sexual Orientation Not on file documented as of this encounter Miscellaneous Notes * Cerner Conversion Note - Mg ProviderMD - 04/20/2018 10:33 AM JAVASCRIPT PROGRAMMER Patient: JOSE PEARSON Age: 47 years Sex: [...] Gastrointestinal: Normal bowel sounds. Integumentary: Warm, Dry, [place]. Results Review General results HYROID ULTRASOUND HISTORY: [...]
--- OUTSIDE RECORDS SUMMARY | 2025-03-03 10:25 | XMS_ITS | Encounter Summary ---
Author Organization [employer] ([place], [place], [place], [place], [place]) Address [address] [place] [address] Care Team Providers Care Top Installer Name Role Phone Unavailable Primary Care Provider Unavailabl e Encounter Details Date Type Department Care Team (Late st Contact Info) Description 03/29/2018 Transcribed Document [facility] [place] [facility] [place] [address] ProviderMg MD [facility] [place] [address] Social History Tobacco Use Types Packs/Day Years Used Date Smoking Tobacco: Never Assessed Sex and Gender Information Value Date Recorded Sex Assigned at Not on file Legal Sex Male 1:09 PM CDT Gender Identity Not on file Sexual Orientation Not on file documented as of this encounter Miscellaneous Notes * Cerner Conversion Note - Historical ProviderMD - 03/29/2018 5:00 AM CREAM HAULER Chart Check - Review Order Profile Entered On: 03/29/2018 5:04 EST Performed On: 03/29/2018 5:00 EST by Julia Majano Rn-Resource Chart Check Chart Reviewed Date and Time : 03/29/2018 5:04 EST Powerplans Initiated/Discontinued as Appropriate : Yes All Active Orders Reviewed : Yes Julia Majano Rn-Resource - 03/29/2018 5:04 EST Electronically signed by Morales Mejia Conversion [employer] Forces Warrant Officer Cerner at 06/19/2022 11:01 PM CDT documented in this encounter Plan of Treatment Not on file documented as of this encounter Visit Diagnoses Not on filedocumented in this encounter
--- OUTSIDE RECORDS SUMMARY | 2025-03-03 10:25 | XMS_ITS | Encounter Summary ---
Author Organization [facility] Address [address] [place] [address] Care Team Providers Care Gear Technician Name Role Phone Herberth Perez MD Primary Care Provider [phone] Gracia Petersen HAND WELT BUTTER Unavailable [phone] Yunior [place]or[place]ano MD Unavailable [phone] Ross Baez DO Unavailable [phone] Edith Aleman RN Unavailable Unavailable Reason for Visit * Reason Onset Date Comments HCN - Patient Message 12/17/2024 Encounter Details Date Type Department Care Team (Late st Contact Info) Description 12/17/2024 Telephone [facility] [place] [address] [facility] [place] [address] Real Mclaughlin MD [address] [place] [address] HCN - Patient Message Social [...] first t janine in the morning (EYE-ASSET MANAGEMENT LEAD) to steady your nerves or to get rid of a hangover? 0 09/19/2021 CAGE Questionnaire Score 0 022 Utilities Answer Date Recorded In the past 12 months has th [employer] electric, gas, oil, or water company threatened [...] PM EDT Clinical Concern/Question Reason for Call: [employer] calling in reference to paperwork that was faxed to Dr. cMlaughlin aboutplan of treatment, they need paper work signed an faxed back. #[phone]. Please complete and fax back, if there are any issues please call [employer] at the # below. Best contact number: Other: [place]- [phone] ext [phone] Optimal time of day to [...] will receive notification of the communication/outcome via Testtt. documented in this encounter Plan of Treatment Upcoming Encounters Date Type Department Care Team (Late st Contact Info) Description 04/22/2025 9:00 AM EST Ancillary Procedure [facility] [place] [address] [place] [address] documented as of this encounter Goals Goal Patient Goal Type Associated Problems Recent Progress Patient-Stated? Author LVAD Short Term Goal General On track( 11:53 AM EDT) Yes Katrin Oviedo, RN Note: - 07/04/23: Patient states he wants to attend a wedding in November in [place] LVAD Nursing Home Goal General On track( 11:53 AM [...] documented as of this encounter Care Teams Gear Technician Relationship Specialty Start Date End Date Herberth Perez MD [address] [place] [address] [place] [address] PCP - General 07/17/20 Gracia Petersen APRN [address] [place] [id number] Nurse Practitioner Internal Medicine 08/06/20 Yunior [place]or[place] MD [address] [place] [address] Consulting Physician Gastroenterology 07/18/22 Ross Baez, DO [address] [place] [address] Surgeon Cardiothoracic Surgery 07/18/22 Edith Aleman, FLIGHT TEACHER None VAD Coordinator 10/14/24 documented as of this encounter
--- OUTSIDE RECORDS SUMMARY | 2025-03-03 10:25 | XMS_ITS | Encounter Summary ---
Author Organization [employer] ([place], [place], [place], [place], [place]) Address [address] [place] [address] Care Team Providers Care Pig Machine Operator Name Role Phone Unavailable Primary Care Provider Stefan pond Encounter Details Date Type Department Care Team (Late st Contact Info) Description 04/14/2018 Transcribed Document [facility] [place] [facility] [place] [address] ProviderMg [place] [facility] [place] [address] Social History Tobacco Use Types Packs/Day Years Used Date Smoking Tobacco: Never Assessed Sex and Gender Information Value Date Recorded Sex Assigned at Not on file Legal Sex Male 1:09 PM CDT Gender Identity Not on file Sexual Orientation Not on file documented as of this encounter Miscellaneous Notes * Cerner Conversion Note - Mg ProviderMD - 04/14/2018 9:31 PM PIE BAKER Admission History, Adult Entered On: 04/14/2018 23:19 [...] Ambulatory Legal Guardian : Spouse Support Person/Patient Route Sales Specialist : Yes Support Person/Pt Rep Name : Deidre Pearson-- Support Person/Pt Rep Contact Information : [phone] Want Family/Rep/Phys Notified of Admit : No Emergency Contact #1 : Deidre Pearson Emergency Contact #1 Phone Number : [phone] Emergency Contact #1 Relationship : Emergency Contact #2 : NA Emergency Contact #2 Phone Number : NA Emergency Contact #2 Relationship : NA Chief Complaint : Pacemaker fired yesterday, states chest feels funny . reports + LOC x 30 sec. Primary Language : Czech Preferred Communication Mode : Verbal Communication Barrier : None Caridad Clements RN - 04/14/2018 23:09 EST Fall Risk Scales ABCs Fall Injury Risk Identification : Coagulation ABC Fall Injury Risk : Moderate to high injury risk SHARMA Hx Falls Immediate/Within 3 Months : Yes Sharma Secondary Diagnosis : No SHARMA Use of Ambulatory Aid : None HSARMA IV Therapy or IV Access : Yes Sharma Gait/Transferring : Normal, bedrest, immobile Sharma Mental Status : Oriented to own ability Sharma Fall Risk Score : 45 SHARMA Fall Scale Risk Level : 0-24 Low Risk Irwin Fall Interventions : Adequate lighting, Assistive devices [...] Source : Stated Height Entry Format : [place] Height, Feet : 6 ft(Converted to: 183 cm, 72 Inch) Height, Inches : 0 Inch(Converted to: 0 ft 0 Inch, 0.00 cm) Clinical Height : 182.88 cm Weight Source : Standing scale Weight Entry Format : [place] Clinical Dosing Weight : 104.23 kg Weight, Pounds : 229 lb Weight, Ounces : 5 oz Body Surface Area (BSA) : 2.26 m2 Body Mass Index : 31.2 kg/m2 (HI) [place] Body Weight : 77 kg Caridad Clements [...]
--- OUTSIDE RECORDS SUMMARY | 2025-03-03 10:25 | XMS_ITS | Encounter Summary ---
Author Organization [employer] ([place], [place], [place], [place], [place]) Address [address] [place] [address] Care Team Providers Care Ornamental Iron Worker Helper Name Role Phone Unavailable Primary Care Provider Unavailabl e Encounter Details Date Type Department Care Team (Late st Contact Info) Description 03/29/2018 Transcribed Document [facility] [place] [facility] [place] [address] ProviderMg MD [facility] [place] [address] Social History Tobacco Use Types Packs/Day Years Used Date Smoking Tobacco: Never Assessed Sex and Gender Information Value Date Recorded Sex Assigned at Not on file Legal Sex Male 1:09 PM CDT Gender Identity Not on file Sexual Orientation Not on file documented as of this encounter Miscellaneous Notes * Cerner Conversion Note - Historical ProviderMD - 03/29/2018 5:00 AM TOBACCO PREVENTION HEALTH EDUCATOR Height and Weight, Routine Entered On: 03/29/2018 5:56 EST Performed On: 03/29/2018 5:00 EST by Josesito Black, [facility] Unit Coord Height and Weight, Routine Routine Weight Source : Standing scale Routine Weight Entry Format : [place] Routine Weight, Pounds : 237 lb Routine Weight, Ounces : 4 oz Routine Weight Calculation : 107.84 kg Height Source : Stated Height Entry Format : [place] Height, Feet : 6 ft Height, Inches : 0 Inch Clinical Height : 182.88 cm Body Surface Area (BSA), Routine : 2.29 m2 Body Mass Index (BMI), Routine : 32.24 kg/m2 [facility] Black, [facility] - 03/29/2018 5:55 EST Electronically signed by Jackie [facility] Conversion Sugar Drier Cerner at 06/19/2022 11:12 PM CDT documented in this encounter Plan of Treatment Not on file documented as of this encounter Visit Diagnoses Not on filedocumented in this encounter
--- OUTSIDE RECORDS SUMMARY | 2025-03-03 10:25 | XMS_ITS | Encounter Summary ---
Author Organization [employer] ([place], [place], [place], [place], [place]) Address [address] [place] [address] Care Team Providers Care Supply Chain Specialist Name Role Phone Unavailable Primary Care Provider Unavailabl e Encounter Details Date Type Department Care Team (Late st Contact Info) Description 04/14/2018 Transcribed Document [facility] [place] [facility] [place] [address] ProviderMg MD [facility] [place] [address] Social History Tobacco Use Types Packs/Day Years Used Date Smoking Tobacco: Never Assessed Sex and Gender Information Value Date Recorded Sex Assigned at Not on file Legal Sex Male 1:09 PM CDT Gender Identity Not on file Sexual Orientation Not on file documented as of this encounter Miscellaneous Notes * Cerner Conversion Note - Mg Ritchie MD - 04/14/2018 11:19 PM INDUSTRIAL ENGINEERING MANAGER Care Management Assessment/Plan Entered On: 04/16/2018 9:22 [...] Pearson Emergency Contact #1 Phone Number : [phone] Emergency Contact #1 Relationship : Emergency Contact [...] : Home/Residential/Assisted or Self Care -01 Breann Ordaz, RN - 04/16/2018 9:19 EST Electronically signed by [facility] Conversion Assistant Plant Controller Cerner at 06/19/2022 10:56 PM CDT documented in this encounter Plan of Treatment Not on file documented as of this encounter Visit Diagnoses Not on filedocumented in this encounter
--- OUTSIDE RECORDS SUMMARY | 2025-03-03 10:25 | XMS_ITS | Encounter Summary ---
Author Organization [employer] ([place], [place], [place], [place], [place]) Address [address] [place] [address] Care Team Providers Care Jump Roll Operator Name Role Phone Unavailable Primary Care Provider Unavailabl e Encounter Details Date Type Department Care Team (Late st Contact Info) Description 04/20/2018 Transcribed Document [facility] [place] [facility] [place] [address] ProviderMg MD [facility] [place], [place] [id number] Social History Tobacco Use Types Packs/Day Years Used Date Smoking Tobacco: Never Assessed Sex and Gender Information Value Date Recorded Sex Assigned at Not on file Legal Sex Male 1:09 PM CDT Gender Identity Not on file Sexual Orientation Not on file documented as of this encounter Miscellaneous Notes * Cerner Conversion Note - Historical ProviderMD - 04/20/2018 1:07 PM HOTEL LOBBY CONCIERGE Discharge Instructions Entered On: 04/20/2018 13:08 EST [...]
--- OUTSIDE RECORDS SUMMARY | 2025-03-03 10:25 | XMS_ITS | Clinical Summary ---
Author Organization [facility] Address [address] [place] [id number] Care Team Providers Care Client Relations Associate Name Role Phone Herberth Perez MD Primary Care Provider [phone] Allergies Active Allergy Reactions Criticality Noted Date [...] (11/10/2024 4:57 PM EDT): Patient treated for Webb acquired pneumonia of the right lung approximately 3 months ago. This diagnosis after 4 to 5 days of right sided chest discomfort with breathing, a bit of heaviness sensation and increasing cough. Patient came to be evaluated by his regular PCP, Dr. Herberth Perez despite being urged to seek ER evaluation. His cycle consultant obtained x-ray imaging which showed right lung [...] evaluation emergency department. Prescriptions sent to [facility] here in [place] -Augmentin 875 mg / 125 mg twice [...] He did not want to go to [facility] ER, such as cycle consultant to obtain x-ray imaging through [facility] on 07/31/2024 which showed right lung [...] his significant risk factors, similar to his cycle consultant I would strongly recommend [facility] evaluation [...] recommend him having further evaluation by the [place] road test, additional certified driving specialist evaluation [...] nonischemic dilated cardiomyopathy/congestive heart failure, diagnosis per cycle consultant, Dr. Leydi Hobbs. Assessment & Plan (09/06/2023 [...] 3.21, this coincided with a hospitalization at [facility] where he was evaluated further, found to [...] 3.21, this coincided with a hospitalization at [facility] where he was evaluated further, found to [...] 3.21, this coincided with a hospitalization at [facility] where he was evaluated further, found to [...] 3.21, this coincided with a hospitalization at [facility] where he was evaluated further, found to [...] Immunizations Immunization Administration Dates Next Due COVID-19 ([employer] Purple Cap Monovalent 02/09/20 21,06/02/2020,05/08/2020 Flu Vaccine [...] Comment:Blood Release to pat i Narrative [facility] (AMBULATORY) - 09/07/2023 10:07 AM EDT Performed at: 01 - [facility] [address] [place] [address] [id number] Junior Manufacturing Engineer: Martin Escudero PhD, Phone: [phone] us Herberth Perez MD LAB BLOOD ORDERABLES Final Resul t [facility] [address] [place] [address], [facility] [address] [place] [address], * COLONOSCOPY (01/16/2019) Colonoscopy SEE REPORT Mg Ritchie MD HEALTH MAINTENANCE Final Result from Last 3 Months or Most Recently Relevant to Health Maintenance Insurance MEDICAID [place] [facility] [employer] [employer] PPO Care Teams Client Relations Associate Relationship Specialty Start Date End Date Herberth Perez MD [address] [place] [address] [place] [address] PCP - General Internal Medicine 04/22/17 Dr. Mclaughlin Consulting Physician Infectious Diseases 06/05/23
--- OUTSIDE RECORDS SUMMARY | 2025-03-03 10:25 | XMS_ITS | Clinical Summary ---
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 1 Active fluticasone (Flonase) 50 MCG/ACT nasal spray USE 2 SPRAY(S) IN EACH NOSTRIL ONCE DAILY DIRECTED 3 Active NON FORMULARY Take 1 each by mouth every night. Delta 9 gummies purchased in [place] Active Magnesium Chloride-Calciu m (Slow Magnesium/Calci um) 64-106 MG tablet delayed-release Take 1 tablet by mouth in the morning and 1 tablet before bedtime. 180 tablet 3 5 Active tamsulosin (Flomax) 0.4 MG 24 hr capsule Take 1 capsule (0.4 mg) by mouth 1 (one) time each day with dinner. 90 capsule 5 Active Additional Information Patient taking differently:0.4 mg Oral Daily with dinner,HOLDING DUE TO FREQUENT URINATION CURRENTLY, Reported on 01/28/2025 Metamucil Fiber 2 g chewable tablet Chew 1 each in the morning. Active acetaminophen (Tylenol) 325 MG tablet Take 3 tablets (975 mg) by mouth every 6 hours as needed for pain. 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 360 capsule Active rosuvastatin (Crestor) 20 MG tablet Take 1 tablet (20 mg) by mouth nightly. 90 tablet 3 5 Active senna (Senokot) 8.6 MG tablet Take 1 tablet (8.6 mg) by mouth nightly. 90 tablet 5 Active polyethylene glycol (Miralax) 17 g packet Take 17 g by mouth daily as needed (constipation). 90 packet 5 Active montelukast (Singulair) 10 MG tablet Take 1 tablet (10 mg) by mouth nightly. 90 tablet 5 Active baclofen (Lioresal) 10 MG tabletIndicatio ns:LVAD (left ventricular assist device) present (CMS/HCC),Chron ic systolic heart failure Take 3 tablets (30 mg) by mouth nightly. 270 tablet 3 5 Active albuterol 108 (90 Base) MCG/ACT inhaler Inhale 1 puff 2 (two) times a day as needed for wheezing. 3 each 5 Active cetirizine (ZyrTEC) 10 MG tablet Take 1 tablet (10 mg) by mouth nightly. 90 tablet 3 5 Active buPROPion XL (Wellbutrin XL) 300 MG 24 hr tablet Take 1 tablet (300 mg) by mouth daily. Do not crush, chew, or split. 90 tablet 3 Active FLUoxetine (PROzac) 40 MG capsule Take 1 capsule (40 mg) by mouth daily. 90 capsule Active omeprazole (PriLOSEC) [address] capsule Take 1 capsule (40 mg) by mouth daily. DO NOT CRUSH OR CHEW 90 capsule Active fludrocortisone (Florinef) 0.1 MG tablet Take 1 tablet by mouth daily. 30 tablet Active Additional Information Patient not taking.Reported on 01/28/2025 warfarin (Coumadin) 4 MG tablet Take 1 tablet by mouth in the evening. 90 tablet Active Additional Information Patient taking differently:4 mg Oral Daily,CURRENTLY 3 MG DAILY, Reported on 01/28/2025 lactulose (Chronulac) 10 GM/15ML oral solution Take 30 mL by mouth 3 times a day. 473 mL 2 Active Additional Information Patient not taking.Reason: Has not needed yet, Reported on 10/29/2024 Mucus Relief 600 MG 12 hr tablet TAKE 2 TABLETS BY MOUTH TWO TIMES A DAY. DO NOT CHEW, CRUSH, OR SPLIT. 120 tablet Active IV Sets-Tubing kit For fluid boluses 15 kit 5 Active diphenhydrAMINE (Banophen) 25 MG capsule TAKE 1 CAPSULE BY MOUTH TWO TIMES A DAY 60 capsule Active sodium chloride 0.9 % bolus Infuse 1,000 mL into a venous catheter daily at 1,000 mL/hr over 60 minutes. 84451 mL Active ipratropium (Atrovent) 0.02 % nebulizer solution Take 2.5 mL by nebulization 4 times a day as needed for wheezing. 75 mL Active metoprolol succinate XL (Toprol-XL) 25 MG 24 hr tablet Take 1 tablet by mouth daily. Do not crush or chew. 90 tablet 3 5 Active sotalol (Betapace) 120 MG tablet Take 1 tablet by mouth 2 times a day. 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 Take with a full glass of water and do not lie down for at least 30 minutes after 28 tablet 5 025 Hospital, Clinic, or Other Facility Administered [...] nonischemic dilated cardiomyopathy/congestive heart failure, diagnosis per mining manager, Dr. Leydi Hobbs. Last Assessment & Plan: [...] with comorbidity 09/19/2021 GERD (gastroesophageal reflux disease) Seizures 05/24/2021 Cerebrovascular accident (CV A) due [...] on 06/06/19 Cardiac resynchronization th erapy defibrillator (EMPLOYMENT COUNSELOR-D) in place 08/10/2020 Overview (07/09/2024): ISABEL FOLLOWED [...] left ventricular assist device (LVAD) 09/01/2020 022 OK (myocardial infarction) 08/31/2020 1 03/31/2024 Benign hypertensive [...] Encounters Date Type Department Care Team Description 02/27/2025 Anticoagulation - Warfarin Visit [facility] [address] [phone] Edith Aleman RN LVAD (left ventricular assist device) present ([facility]) (Primary Dx); Anticoagulant long-term use 02/12/2025 Telephone [facility] 800 [facility]. [address] [phone] Melisa Lara MD HCN - Patient Message 02/11/2025 Anticoagulation - Warfarin Visit [facility] [address] [place] [phone] Edith Aleman RN LVAD (left ventricular assist device) present ([facility]) (Primary Dx); Anticoagulant long-term use 02/03/2025 Telephone [facility] [address] [place] [address] Cierra Orellana MD HCN - Patient Message 02/03/2025 Refill [place] [phone] Edith Aleman, RN Low iron; Iron deficiency 02/03/2025 Anticoagulation [place] [address] Edith Aleman, RN LVAD (left ventricular assist device) present (CMS/HCC) (Primary Dx); Anticoagulant long-term use 02/03/[address] [address] Edith Aleman, RN Low iron; Iron deficiency 01/29/2025 7:39 AM EST - 01/29/2025 11:59 PM EST Hospital Encounter Cardiac Imaging [address] [place] [address] Biventricular ICD (implantable cardioverter-defibrilla tor) in place Discharge Disposition: Home or Self Care 01/29/2025 Refill [place] [phone] Edith Aleman, RN Iron deficiency (Primary Dx) 01/29/[address] [address] Edith Aleman, RN Low iron (Primary Dx); Iron deficiency 01/29/2025 Travel 01/28/2025 10:00 AM EST Ancillary Procedure [address] [phone] LVAD (left ventricular assist device) present (CMS/HCC) (Primary Dx); retirement current use of anticoagulant therapy; Ventricular tachycardia (CMS/HCC); PAF (paroxysmal atrial fibrillation); NICM (nonischemic cardiomyopathy) (CMS/HCC); HFrEF (heart failure with reduced ejection fraction); Cardiac resynchronization therapy defibrillator (EMPLOYMENT COUNSELOR-D) in place 01/28/2025 8:57 AM EST - 01/28/2025 11:59 PM EST Hospital Encounter Cardiac Imaging [address] [place] [address] LVAD (left ventricular assist device) present ([facility]/HCC); retirement current use of anticoagulant therapy Discharge Disposition: Home or Self Care 01/28/2025 Travel 01/28/2025 Anticoagulation - Warfarin Visit [facility] [address] 1st Floor [place] [phone] Edith Aleman, RN LVAD (left ventricular assist device) present (CMS/HCC) (Primary Dx); Anticoagulant long-term use 01/27/2025 Refill [facility] [address] [phone] Edith Aleman, RN 01/27/2025 Orders Only [facility] [address] [place] [phone] Parish Dyer MD 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) (Primary Dx) 01/20/2025 1:30 PM EST - 01/20/2025 11:59 PM EST Hospital Encounter Cardiac Imaging [address] [place] [address] ICD (implantable cardioverter-defibrilla tor) in place Discharge Disposition: Home or Self Care 01/20/2025 Travel 01/20/2025 Anticoagulation - Warfarin Visit [facility] [address] [place] [address] Edith Aleman, RN LVAD (left ventricular assist device) present ([facility]) (Primary Dx); Anticoagulant long-term use 01/14/2025 Refill [facility] [address] [phone] Martine Taylor, RN 01/08/[address] [phone] Edith Aleman, RN 01/07/[address] [place] [phone] Melisa Lara MD 01/06/2025 12:34 PM EST - 01/06/2025 11:59 PM [facility] Hospital Encounter Cardiac Imaging [address] [place] [address] ICD (implantable cardioverter-defibrilla tor) in place Discharge Disposition: Home or Self Care 01/06/2025 Travel 01/06/2025 Anticoagulation - Warfarin Visit [facility] [address] [phone] Gracia Vizcarra, RN LVAD (left ventricular assist device) present ([facility]) (Primary Dx); Anticoagulant long-term use 12/30/2024 Telephone [facility] 800 [facility]. [address] [phone] Melisa Lara MD Patient Aids requesting office notes 12/28/2024 Anticoagulation - Warfarin Visit [facility] [address] [phone] Gracia Vizcarra, RN LVAD (left ventricular assist device) present ([facility]) (Primary Dx); Anticoagulant long-term use 12/25/2024 Refill [facility] [address] [place] [address] Edith Aleman, RN 12/24/2024 Orders Only [facility] [address] [place] [address] Edith Aleman, RN 12/23/2024 12:44 PM EDT - 12/23/2024 11:59 PM EDT Hospital Encounter Cardiac Imaging [address] [place] [address] Biventricular ICD (implantable cardioverter-defibrilla tor) in place Discharge Disposition: Home or Self Care 12/23/2024 Travel 12/23/2024 Anticoagulation - Warfarin Visit [facility] 800 [facility] 1st Floor [address] [phone] Edith Aelman, RN LVAD (left ventricular assist device) present ([facility]) (Primary Dx); Anticoagulant long-term use 12/20/2024 10:46 AM EDT - 12/20/2024 11:59 PM EDT Hospital Encounter Cardiac Imaging [address] [place] [address] Biventricular ICD (implantable cardioverter-defibrilla tor) in place Discharge Disposition: Home or Self Care 12/20/2024 Refill [facility] [address] [place] [address] Elisabet Raya MD 12/20/2024 Travel 12/18/2024 Orders Only 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 [address] [place] [address] Edith Aleman, RN Cerebrovascular accident (CVA) due to embolism of cerebral artery (Primary Dx) 12/17/2024 Telephone [facility] [address] [place] [phone] Real Mclaughlin MD HCN - Patient Message 12/12/2024 Anticoagulation - Warfarin Visit [facility] [address] [place] [phone] Edith Aleman RN LVAD (left ventricular assist device) present ([facility]) (Primary Dx); Anticoagulant long-term use from Last 3 Months Immunizations Immunization Administration Dates Next Due Hep A, Adult 11/07/2018,03/21/2018 Influenza, injectable, quadrivalent 11/01/2021 Influenza, injectable, quadr ivalent, preservative free 02/13/2023,12/04/2019 Influenza, seasonal, injectable 02/05/2021,11/27,11/14/2016 Influenza, seasonal, injecta ble, preservative free 12/13/2023 C4M COVID-19 Vac cine (Purple Cap) 12+ 06/02/2020,05/08/2020 [...] drink first t janine in the morning (EYE-PHARMACOLOGIST) to steady your nerves or to get rid of a hangover? 0 09/19/2021 CAGE Questionnaire Score 0 022 Utilities Answer Date Recorded In the past 12 months has th e [employer], gas, oil, or water [employer] threatened to shut off services in your [...] Description 04/22/2025 9:00 AM EST Ancillary Procedure [facility] [address] [place] [address] Health Maintenance Due Date Last Done Comments [facility]-/Child/Adol SDOH Screenings 1970 [facility]-Hepatitis B Vaccines (1 of 3 - 19+ 3-dose series) 1988 [facility]-Zoster Vaccines (1 of 2) 1988 CT Colonography 2014 Colonoscopy 2014 FIT-DNA 2014 FIT 2014 FOBT 2014 Sigmoidoscopy 2014 [facility]-Colorectal Cancer Screening 2014 [facility]- SDOH Screenings 10/06/2024 [facility]-Adult SDOH Screenings 10/06/2024 04/08/2024 [id number] Vaccine ( season) 2024 02/08/2021, 06/02/2020, 05/08/2020 [...] 2023, 09/18/2021, 05/17/2019 [facility]-Obesity Intervention Completed 025, 02/11/2025, 02/03/2025, Additional history exists HPV Vaccines (No Doses [...] [place] in [place] in [place] 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 Goal General On track( 024 11:53 AM EDT) Yes Katrin Oviedo RN Note: - 07/04/23: Patient states he wants to meet his grandchild when they are born in November Medical Devices Implanted Type Area Practical Nursing Teacher Device Identifier Shelf Expiration Date Model / Serial / Lot Lvad-06/06/2019 Implanted:04/2019 by Nathaniel Garcia MD (Quantity not on file) LVAD Left: Heart [employer] / [id number] / [id number] Quartet [id number] Lead 1458Q QUARTET / [id number] / [id number] Tendril Sts [id number] Lead 2088TC TENDRIL STS / [id number] / [id number] Endotak Rydal G [id number] Lead 0185 ENDOTAK RELIANCE G / [id number] / [id number] Quadra Assura Mp [id number] Implanted:07/2017 (Quantity not on file) Pacemaker 3369-40C QUADRA ASSURA MP / [id number] / Envelope Tyrx Icd Large - [id number] Implanted:Qty: 1 on 12/07/2023 by Melisa Lara MD at [facility] [id number] 08/26/2024 [id number] / / [id number] Stent Graft Iliac [id number] m Vi[employer]ah[employer]x - [id number] Implanted:Qty: 1 on 04/11/2024 by Dung Nunez MD at [facility] [employer]-[id number] 84 07/31/2025 [id number] / [id number] / [id number] Stent Graft Iliac [id number] m [employer]ahnbx - [id number] Implanted:Qty: 1 on 04/11/2024 by Dung Nunez MD at [facility] [employer]-[id number] 84 04/17/2026 [id number] / [id number] / [id number] Stent Graft Iliac [id number] m Vi[employer]ah[employer]x - [id number] Implanted:Qty: 1 on 04/11/2024 by Dung Nunez MD at [facility] [employer]-[id number] 84 04/15/2026 [id number] / [id number] / [id number] Stent Graft Iliac [id number] m [employer]x - [id number] Implanted:Qty: 1 on 04/11/2024 by Dung Nunez MD at [facility] [employer]-1401 84 06/10/2026 [id number] / [id number] / [id number] Stent Graft Iliac [id number] m Viabah[employer]x - [id number] Implanted:Qty: 1 on 04/11/2024 by Dung Nunez MD at [facility] [employer]-1401 84 07/28/2026 [id number] / [id number] / [id number] Procedures Procedure Name Priority Date/Time Associated Diagnosis Comments EXTERNAL PROTHROMBIN TIME (PT)/INR Routine 02/27/2025 EXTERNAL PROTHROMBIN TIME (PT)/INR Routine 02/10/2025 EXTERNAL PROTHROMBIN TIME (PT)/INR Routine 02/02/2025 CARDIAC DEVICE CHECK CHECK - REMOTE ALERT Routine 01/29/2025 7:40 AM EST Biventricular ICD (implantable cardioverter-defibri llator) in place ECHO, ADULT TRANSTHORACIC COMPLETE Routine 01/28/2025 9:38 AM EST LVAD (left ventricular assist device) present (CMS/HCC) 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 current use of anticoagulant therapy IRON & TOTAL IRON BINDING CAPACITY, PLASMA (INCLUDES TRANSFERRIN) Add-On 01/28/2025 9:02 AM EST 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 current use of anticoagulant therapy PROTHROMBIN TIME(PT) / INR Routine 01/28/2025 9:02 AM EST LVAD (left ventricular assist device) present (CMS/HCC) 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 current use of anticoagulant therapy N-TERMINAL PROBNP, PLASMA Routine 01/28/2025 9:02 AM EST LVAD (left ventricular assist device) present (CMS/HCC) 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 current use of anticoagulant therapy LACTATE DEHYDROGENASE, PLASMA Routine 01/28/2025 9:02 AM EST LVAD (left ventricular assist device) present (CMS/HCC) 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 current use of anticoagulant therapy CBC W/O DIFFERENTIAL Routine 01/28/2025 9:02 AM EST LVAD (left ventricular assist device) present (CMS/HCC) 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 current 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 of anticoagulant therapy COMPREHENSIVE METABOLIC PANEL, PLASMA Routine 01/28/2025 9:02 AM EST LVAD (left ventricular assist device) present (CMS/HCC) retirement current use of anticoagulant therapy EXTERNAL PROTHROMBIN TIME (PT)/INR Routine 01/27/2025 ANTIMICROBIAL SUSCEPTIBILITY - ISELA, INDIVIDUAL (SO) Routine 01/21/2025 11:32 AM EST LVAD (left ventricular assist device) present (CMS/HCC) retirement current use of anticoagulant therapy 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) WOUND CULTURE AND GRAM STAIN Routine 01/21/2025 11:32 AM EST LVAD (left ventricular assist device) present (CMS/HCC) retirement current use of anticoagulant therapy CARDIAC DEVICE [...] place EXTERNAL PROTHROMBIN TIME (PT)/INR Routine 12/11/2024 HEMOGLOBIN A1C Routine 02/13/2024 11:38 AM EST LVAD (left ventricular assist device) present (CMS/HCC) 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 current use of anticoagulant therapy HEPATITIS C ANTIBODY - ED W/REFLEX TO HCV QUANT PCR STAT 12/18/2023 11:15 AM EDT ED HIV 1/2 ANTIBODY/ANTIGEN SCREEN WITH REFLEX TO HIV I/II DIFFERENTIATION STAT 12/18/2023 11:15 AM EDT from Last 3 Months or Most Recently Relevant to Health Maintenance Results * External Prothrombin Time (PT)/INR (02/27/2025) Only the most recent of9 resultswithin the time period is included. External INR - Internormal Ratio 2.2 External Prothrombin Time (PT) Blood Venous blood specimen / Unknown 02/27/2025 us [facility] Provider POINT OF CARE TEST ENTER/SHERIF T ORDERABLES Final Result * CARDIAC DEVICE CHECK - REMOTE ALERT - ICD (01/29/2025 7:40 AM EST) Only the most recent of4 resultswithin the time period is included. Anatomical Region Laterality Modality Other Narrative 01/29/2025 9:29 AM EST [facility] EP - Remote CIED alert (non-scheduled) Name: Jose Pearson Date: 01/29/2025 : 1970 Age: 54 y.o. 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 Recent uptrend in HR. While not a large increase, patient LRL set at 90 bpm and sinus rate increasing beyond 90 bpm. Activity trend is also up. Action(s): Sent communication to LVAD coordinator. Will continue to monitor device. See attached report for CIED details us Dina Valenzuela Les SANDOVAL CV IMPLANTABLE [...] 26 mL/m2 ILENE ISCV LAV(MOD-2ch) 52 mL ILEEN ISCV RA MOD 4Ch 46 mL ILENE [...] no significant interval change noted. Marti Cherry APRN CV ECHO PROCEDURES Final Re sult * (ABNORMAL) N-Terminal Probnp, Plasma (01/28/2025 9:02 AM EST) Pathologist [facility] N-Terminal, PROBNP, Plasma 3,594(H) 0 - 899 pg/mL 01/28/2025 11:17 AM EST [facility] Blood Venous blood specimen / Unknown Venipuncture / Unknown 01/28/2025 9:02 AM EST 01/28/2025 10:44 AM EST Marti Cherry CLASS A LINEMAN LAB BLOOD ORDERABLES Final Result [facility] [address] [place] [address] * (ABNORMAL) Iron & Total Iron Binding Capacity, Plasma (Includes Transferrin) (01/28/2025 9:02 AM EST) Pathologist [facility] Iron, Plasma 11(L) 50 - 170 ug/dL 01/28/2025 12:04 PM EST [facility] Transferrin, Plasma 305 200 - 360 mg/dL 01/28/2025 12:04 PM EST [facility] Total Iron Binding Capacity, Plasma 381 240 - 450 ug/mL 01/28/2025 12:04 PM EST [facility] Transferrin Saturation 3(L) 14 - 50 % 01/28/2025 12:04 PM EST [facility] Blood Venous blood specimen / Unknown Venipuncture / Unknown 01/28/2025 9:02 AM EST 01/28/2025 10:44 AM EST us Cierra Orellana MD LAB BLOOD ORDERABLES Final Result Performing Organization Address City/[facility]/ZIP Co de Phone Number [facility] [address] [place] [address] * (ABNORMAL) Prothrombin Time/INR (01/28/2025 9:02 AM EST) Prothrombin Time 31.0(H) 12.0 - 14.3 sec LAB COAGULATION METHOD 01/28/2025 11:06 AM EST [facility] INR 3.0(H) 0.9 - 1.1 LAB COAGULATION METHOD 01/28/2025 11:06 AM EST [facility] Blood Venous blood specimen / Unknown Venipuncture / Unknown 01/28/2025 9:02 AM EST 01/28/2025 10:44 AM EST Narrative [facility] - 01/28/2025 11:06 AM EST OPTIMAL INR RANGES FOR PATIENT ON ORAL ANTICOAGULANT THERAPY Prevention of venous thromboembolism INR 2.0 to 3.0 In patients with heart disease: Atrial fibrillation INR 2.0 to 3.0 Valvular heart disease INR 2.0 to 3.0 Tissue heart valves INR 2.0 to 3.0 Mechanical prosthetic valves INR 2.5 to 3.5 Prevention of recurrent OK INR 2.5 to 3.5 us Marti Cherry APRN LAB BLOOD ORDERABLES Final Result [facility] [address] [place] [address] * (ABNORMAL) CBC W/O Differential (01/28/2025 9:02 AM EST) WBC Count 7.34 3.70 - 10.30 10*3/uL LAB HEMATOLOGY METHOD 01/28/2025 11:23 AM EST [facility] RBC Count 4.57(L) 4.60 - 6.10 10*6/uL LAB HEMATOLOGY METHOD 01/28/2025 11:23 AM EST [facility] HGB 8.4(L) 13.7 - 17.5 g/dL LAB HEMATOLOGY METHOD 01/28/2025 11:23 AM EST [facility] HCT 29.1(L) 40.0 - 51.0 % LAB HEMATOLOGY METHOD 01/28/2025 11:23 AM EST [facility] Platelet Count 314 155 - 369 10*3/uL LAB HEMATOLOGY METHOD 01/28/2025 11:23 AM EST [facility] MCV 64(L) 79 - 98 fL LAB HEMATOLOGY METHOD 01/28/2025 11:23 AM EST [facility] MCH 18.4(L) 26.0 - 32.0 pg LAB HEMATOLOGY METHOD 01/28/2025 11:23 AM EST [facility] MCHC 28.9(L) 30.7 - 35.5 g/dL LAB HEMATOLOGY METHOD 01/28/2025 11:23 AM EST [facility] RDW 21.1(H) 11.5 - 14.5 % LAB HEMATOLOGY METHOD 01/28/2025 11:23 AM EST [facility] MPV 9.2 8.8 - 12.5 fL LAB HEMATOLOGY METHOD 01/28/2025 11:23 AM EST [facility] nRBC 0.0 <=0.0 per 100 WBCs LAB HEMATOLOGY METHOD 01/28/2025 11:23 AM EST [facility] Blood Venous blood specimen / Unknown Venipuncture / Unknown 01/28/2025 9:02 AM EST 01/28/2025 10:51 AM EST us Marti D Falls CLASS A LINEMAN LAB BLOOD ORDERABLES Final Result [facility] [address] [place] [address] * Lactate Dehydrogenase, Plasma (01/28/2025 9:02 AM EST) LDH, Plasma 237 116 - 250 U/L 01/28/2025 11:17 AM EST [facility] Comment:Hemolyzed, result ma y be falsely increased. Blood Venous blood specimen / Unknown Venipuncture / Unknown 01/28/2025 9:02 AM EST 01/28/2025 10:44 AM EST Marti Cherry CLASS A LINEMAN LAB BLOOD ORDERABLES Final Result [facility] [address] [place] [address] * (ABNORMAL) Comprehensive Metabolic Panel, Plasma (01/28/2025 9:02 AM EST) Glucose, Plasma 106(H) 74 - 99 mg/dL 01/28/2025 11:17 AM EST [facility] BUN, Plasma 15 7 - 21 mg/dL 01/28/2025 11:17 AM EST [facility] Creatinine, Plasma 0.55(L) 0.70 - 1.20 mg/dL 01/28/2025 11:17 AM EST [facility] BUN/Creatinine Ratio 27 01/28/2025 11:17 AM EST [facility] Sodium, Plasma 139 136 - 145 mmol/L 01/28/2025 11:17 AM EST [facility] Potassium, Plasma 3.9 3.6 - 4.9 mmol/L 01/28/2025 11:17 AM EST [facility] Chloride, Plasma 104 97 - 107 mmol/L 01/28/2025 11:17 AM EST [facility] CO2, Plasma 24 22 - 29 mmol/L 01/28/2025 11:17 AM EST [facility] Anion Gap 11 6 - 16 mmol/L 01/28/2025 11:17 AM EST [facility] Total Calcium, Plasma 8.1(L) 8.9 - 10.2 mg/dL 01/28/2025 11:17 AM EST [facility] Total Protein 6.9 6.3 - 7.9 g/dL 01/28/2025 11:17 AM EST [facility] Albumin, Plasma 3.2(L) 3.5 - 5.2 g/dL 01/28/2025 11:17 AM EST [facility] AST, Plasma 47 10 - 50 U/L 01/28/2025 11:17 AM EST [facility] Comment:Hemolyzed, result ma y be falsely increased. ALT, Plasma 41 10 - 50 U/L 01/28/2025 11:17 AM EST [facility] Alkaline Phosphatase, Plasma 65 40 - 115 U/L 01/28/2025 11:17 AM EST [facility] Total Bilirubin, Plasma 1.0 0.2 - 1.1 mg/dL 01/28/2025 11:17 AM EST [facility] eGFRcr 117.0 mL/min/1.7 3m*2 01/28/2025 11:17 AM EST [facility] Comment:Reported eGFRcr in m L/min/1.73m2 is based the CKD-EPI 2020 equation that does not use a race coefficient. Blood Venous blood specimen / Unknown Venipuncture / Unknown 01/28/2025 9:02 AM EST 01/28/2025 10:44 AM EST us Marti Cherry APRN LAB BLOOD ORDERABLES Final Result [facility] [address] [place] [address] * Antimicrobial Susceptibility- ISELA (SO) (01/21/2025 11:32 AM EST) See Scanned Result SEE SCANNED DOCUMENT 02/01/2025 1:00 PM EST [facility] Swab Topography unknown / Unknown Non-blood Collection / Unknown 01/21/2025 11:32 AM EST 01/21/2025 12:00 PM EST us Bita Dyer MD LAB REF LAB BLOOD A ND FLUID ORD Final Result [facility] ([facility]) [address] [place] [address] * (ABNORMAL) Wound Culture and Gram Stain (01/21/2025 11:32 AM EST) CULTURE READING WOUND Light Growth 01/27/2025 2:28 PM EST [facility] CULTURE READING WOUND Corynebacterium amycolatum(A) 01/27/2025 2:28 PM EST [facility] Comment: This isolate has been identified using the FDA Approved 5 Minuteser CA System The organism value for this result has been updated. These results have been appended to the previously preliminary verified report. Edited result: Previously reported as Gram positive samuel on 01/24/2025 at 0826 EST. Gram Stain Result Rare Polymorphonuclear leukocytes(A) 01/27/2025 2:28 PM EST [facility] Gram Stain Result Rare Gram positive rods(A) 01/27/2025 2:28 PM EST [facility] Gram Stain Result Rare Gram positive cocci in pairs(A) 01/27/2025 2:28 PM EST [facility] Swab Topography unknown / Unknown Non-blood Collection / Unknown 01/21/2025 11:32 AM EST 01/21/2025 12:00 PM EST Narrative [facility] - 01/27/2025 2:28 [...] FDA approved. Results for research use only. us Marti Sumaya Cherry APRN LAB MICROBIOLOGY - GENERAL ORDERABLES Final Result [facility] [address] [place] [address] * CARDIAC DEVICE CHECK - REMOTE - [...] 5.2 <5.7 % 02/13/2024 12:50 PM EST [facility] Blood Venous blood specimen / Unknown Venipuncture / Unknown 02/13/2024 11:38 AM EST 02/13/2024 11:52 AM EST Narrative [facility] - 02/13/2024 12:50 PM EST HA1C Interpretive Data: Diagnosis of Diabetes: Diabetic > or = 6.5% Pre-diabetic 5.7 to 6.4% Non-diabetic < or = 5.6% Glycemic Targets for Type I and Type II Diabetics: Non- Adults <7.0% Adults <6.0% Children and Adolescents <7.5% Source: [place] [employer]. Standards of medical care in diabetes,2017. Diabetes Care.2017:40 (suppl 1):S1-S135. HbA1c assay performed by an ion-exchange chromatography method that is certified traceable to the DCCT. Marti Cherry APRN LAB BLOOD ORDERABLES Final Result Performing Organization Address City/[facility]/ZIP Co de Phone Number [facility] [address] [place] [address] * ED HIV 1/2 Antibody/Antigen Screen w/Reflex to HIV 1/2 Differentiation (12/18/2023 11:15 AM EDT) [facility] HIV 1 & 2 Antibody/Antigen Screen Non Reactive Non Reactive 12/18/2023 12:53 PM EDT [facility] Comment:Screening for HIV 1 & 2 antibodies, and P24 antigen is NONREACTIVE. No confirmatory testing is required. Blood Venous blood specimen / Unknown Venipuncture / Unknown 12/18/2023 11:15 AM EDT 12/18/2023 11:31 AM EDT Mayito Gunn MD LAB BLOOD ORDERABLES Final Res ult Performing Organization Address [facility] Co de Phone Number [facility] [address] [place] [address] * Hepatitis C Antibody - ED (12/18/2023 11:15 AM EDT) [facility] Hepatitis C Antibody Negative Negative 12/18/2023 12:39 PM EDT [facility] Blood Venous blood specimen / Unknown Venipuncture / Unknown 12/18/2023 11:15 AM EDT 12/18/2023 11:31 AM EDT Mayito Gunn MD LAB BLOOD ORDERABLES Final Res ult Performing Organization Address City/[facility] Co de Phone Number [facility] [address] [place] [address] from Last 3 Months or Most Recently Relevant to Health Maintenance Additional Health Concerns Infection Onset 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 Yes Care Teams Twisting Machine Operator Relationship Specialty Start Date End Date Herberth Perez MD [address] [place] [address] [place] [address] PCP - General 07/17/20 Gracia Petersen APRN [address] [place] [phone] Nurse Practitioner Internal Medicine 08/06/20 Yunior Solorzano MD [address] [facility] [address] [place] [address] Consulting Physician Gastroenterology 07/18/22 Ross Baez DO [address] [phone] Surgeon Cardiothoracic Surgery 07/18/22 Edith Aleman, POINT OF CARE SPECIALIST None VAD Coordinator 10/14/24
--- OUTSIDE RECORDS SUMMARY | 2025-03-03 10:25 | XMS_ITS | Encounter Summary ---
Author Organization [employer] ([place], [place], [place], [place], [place]) Address [address] [place] [address] Care Team Providers Care Case Coordinator Name Role Phone Unavailable Primary Care Provider Unavailabl e Encounter Details Date Type Department Care Team (Late st Contact Info) Description 03/29/2018 Transcribed Document [facility] [place] [address] [place] [address] ProviderMg [place] [address] Social History Tobacco Use Types Packs/Day Years Used Date Smoking Tobacco: Never Assessed Sex and Gender Information Value Date Recorded Sex Assigned at Not on file Legal Sex Male 1:09 PM CDT Gender Identity Not on file Sexual Orientation Not on file documented as of this encounter Miscellaneous Notes * Cerner Conversion Note - Historical ProviderMD - 03/29/2018 10:29 AM TEMPLATE REPRODUCTION TECHNICIAN Therapy Screen, OT Entered On: 03/29/2018 10:35 [...]
--- OUTSIDE RECORDS SUMMARY | 2025-03-03 10:25 | XMS_ITS | Encounter Summary ---
Author Organization [employer] ([place], [place], [place], [place], [place]) Address [address] [place] [address] Care Team Providers Care Rewind Operator Name Role Phone Unavailable Primary Care Provider Unavailabl e Encounter Details Date Type Department Care Team (Late st Contact Info) Description 03/29/2018 Transcribed Document [facility] [place] [facility] [place] [address] ProviderMg MD [facility] [place] [address] Social History Tobacco Use Types Packs/Day Years Used Date Smoking Tobacco: Never Assessed Sex and Gender Information Value Date Recorded Sex Assigned at Not on file Legal Sex Male 1:09 PM CDT Gender Identity Not on file Sexual Orientation Not on file documented as of this encounter Miscellaneous Notes * Cerner Conversion Note - Mg ProviderMD - 03/29/2018 1:22 PM LINER MAN [place] [address], [place] [address] Patient Copy Patient Information: Name: JOSE PEARSON Current Date: 03/29/2018 13:22:49 : 1970 Patient Address: [address] [place] [id number] Patient Attending Physician: Primary Care Provider: HUMA YARBROUGH (REF)MD-INT Primary Care Provider Discharge Diagnosis: Atrial fibrillation; NICM (nonischemic cardiomyopathy) Weight on Admission: 236 lb, 8 oz Weight at Discharge: 237 lb, 4 oz Comment: Follow-up Instructions: With: Address: When: [place] [facility] [address] [place] [address] Business (1) Within 2 weeks [...] Discharge Instructions (if any): Final Medication List: [facility], [address] [place], [place] [id number], [phone] sotalol (sotalol 120 mg oral tablet) 1 [...] nasal (fluticasone 50 mcg/inh nasal spray) 1 [place](s) Nostrils Both Every Day. furosemide (Lasix 40 [...] Other treatments may include cardiac resynchronization therapy (RETAIL OPERATIONS MANAGER) or a left ventricular assist device [...] to manage stress. General instructions ??? Take nfak-eqe-lsklobt and prescription medicines only as told by [...] 05/05/2005 Document Revised: 10/18/2016 Document Reviewed: 08/22/2016 ElseQuality Solicitors Interactive Patient Education ? 2017 [employer]. Atrial Fibrillation Atrial fibrillation is a [...] ??? Certain heart rhythm disorders, such as Zktj-Tnbqkfhzy-Jgdlo syndrome. Other causes include: ??? Pneumonia. ??? [...] 02/20/2006 Document Revised: 06/29/2016 Document Reviewed: 06/17/2015 [employer] Interactive Patient Education ? 2017 [employer]. Medication Leaflets: sotalol (JS ta lol) [...] may report side effects to FDA at 0-703-PIA-6355. What other drugs will affect sotalol? Many [...] interact with sotalol. This includes prescription and rhbt-yuo-arzvlvl medicines, vitamins, and herbal products. Give a [...] to ensure that the information provided by [employer]. ('Rapid Diagnostektum') is accurate, up-to-date, and complete, but no guarantee is made to that effect. Drug information contained herein may be time sensitive. Simplificare information has been compiled for use by healthcare practitioners and consumers in the [place] and therefore [employer]plificare does not warrant that uses outside of the [place] are appropriate, unless specifically indicated otherwise. GoMango.coms drug information does not endorse drugs, diagnose patients or recommend therapy. GoMango.coms drug information is an informational resource designed [...] effective or appropriate for any given patient. Sim[employer] does not assume any responsibility for any aspect of healthcare administered with the aid of information Simplificare provides. The information contained herein is not intended to cover all possible uses, directions, precautions, warnings, drug interactions, allergic reactions, or adverse effects. If you have questions about the drugs you are taking, check with your doctor, nurse or pharmacist. Copyright 7517-6639 [employer]. Version: .. Revision Date: 02/18/2014. CIGARETTE SMOKING: The facts are clear, cigarette smoking will shorten your life. Smoking can cause many illnesses along the way. As a healthcare provider, we recommend that you stop smoking. Assistance with quitting is available by contacting 0-022-BVMI-NOW. This is a free resource providing counseling, [...] Be sure to sign up for the [employer] patient portal, which gives you 26/09 access to your medical information ??? including these discharge instructions ??? using your computer, smartphone, or tablet. Just go to [facility] to get started. Questions? Call . [facility] would like to thank you for allowing us to assist you with your healthcare needs. ANASTASIA Rich DENNIS PAUL, (or cordage sales representative) have received the above patient education materials/instructions and have verbalized understanding: Patient Signature _ Date/Time Patient Sort Manager Signature (if needed) Date/Time Clinician/Hospital Sort Manager Signature (if needed) Date/Time Electronically signed by Jackie, [facility] Conversion Event Specialist Cerner at 06/19/2022 11:12 PM CDT documented in this encounter Plan of Treatment Not on file documented as of this encounter Visit Diagnoses Not on filedocumented in this encounter
--- OUTSIDE RECORDS SUMMARY | 2025-03-03 10:25 | XMS_ITS | Encounter Summary ---
Author Organization [employer] ([place], [place], [place], [place], [place]) Address [address] [place] [address] Care Team Providers Care Stuffing Machine Operator Name Role Phone Unavailable Primary Care Provider Unavailabl e Encounter Details Date Type Department Care Team (Late st Contact Info) Description 04/23/2018 Transcribed Document [facility] [place] [facility] [place] [address] ProviderMg MD [facility] [place] [address] Social History Tobacco Use Types Packs/Day Years Used Date Smoking Tobacco: Never Assessed Sex and Gender Information Value Date Recorded Sex Assigned at Not on file Legal Sex Male 1:09 PM CDT Gender Identity Not on file Sexual Orientation Not on file documented as of this encounter Miscellaneous Notes * Cerner Conversion Note - Historical ProviderMD - 04/23/2018 11:02 AM CROZER Cardiac and Pulmonary Outpatient [facility] Entered On: 04/23/2018 11:03 EST Performed On: 04/23/2018 11:02 EST by EDITH CHAVIS RN Cardiac and Pulmonary Outpatient [facility] Phase 2 Cardiac Rehab Criteria Met : Heart failure (HF) Cardiac Outpatient Rehab Evaluation Comment : Order faxed to [facility] due to pts location. EDITH CHAVIS RN - 04/23/2018 11:02 EST documented in this encounter Plan of Treatment Not on file documented as of this encounter Visit Diagnoses Not on filedocumented in this encounter
--- OUTSIDE RECORDS SUMMARY | 2025-03-03 10:25 | XMS_ITS | Encounter Summary ---
Author Organization [employer] ([place], [place], [place], [place], [place]) Address [address] [place] [address] Care Team Providers Care Cathead Worker Name Role Phone Unavailable Primary Care Provider Unavailabl e Encounter Details Date Type Department Care Team (Late st Contact Info) Description 03/29/2018 Transcribed Document [facility] [place] [facility] [place] [address] ProviderMg MD [facility] [place] [address] Social History Tobacco Use Types Packs/Day Years Used Date Smoking Tobacco: Never Assessed Sex and Gender Information Value Date Recorded Sex Assigned at Not on file Legal Sex Male 1:09 PM CDT Gender Identity Not on file Sexual Orientation Not on file documented as of this encounter Miscellaneous Notes * Cerner Conversion Note - Mg ProviderMD - 03/29/2018 1:21 PM FURRIER DESIGNER [facility] [address], [place] [address] Patient Copy Patient Information: Name: JOSE PEARSON Current Date: 03/29/2018 13:21:46 : 1970 Patient Address: [address] [place] [phone] Patient Attending Physician: Primary Care Provider: HUMA YARBROUGH (REF)MD-INT Primary Care Provider Discharge Diagnosis: Atrial fibrillation; NICM (nonischemic cardiomyopathy) Weight on Admission: 236 lb, 8 oz Weight at Discharge: 237 lb, 4 oz Comment: Follow-up Instructions: With: Address: When: [place] [address] [place] [address] Business (1) Within 2 weeks [...] Discharge Instructions (if any): Final Medication List: [facility], [address] [facility] [address] [place], [place] [id number], [phone] sotalol (sotalol 120 mg oral tablet) 1 [...] nasal (fluticasone 50 mcg/inh nasal spray) 1 [place](s) Nostrils Both Every Day. furosemide (Lasix 40 [...] Other treatments may include cardiac resynchronization therapy (PHOTOGRAMMETRIC STEREO COMPILER) or a left ventricular assist device (LVAD). [...] to manage stress. General instructions ??? Take cdhd-qaz-sxmchoo and prescription medicines only as told by [...] 05/05/2005 Document Revised: 10/18/2016 Document Reviewed: 08/22/2016 ElseGetMeMedia Interactive Patient Education ? 2017 [employer]. Atrial Fibrillation Atrial fibrillation is a [...] ??? Certain heart rhythm disorders, such as Xamc-Budxaxqti-Usrit syndrome. Other causes include: ??? Pneumonia. ??? [...] 02/20/2006 Document Revised: 06/29/2016 Document Reviewed: 06/17/2015 [employer] Interactive Patient Education ? 2017 [employer]. Medication Leaflets: sotalol (JS ta lol) [...] may report side effects to FDA at 0-743-HAG-2067. What other drugs will affect sotalol? Many [...] interact with sotalol. This includes prescription and hddq-lbd-prabokl medicines, vitamins, and herbal products. Give a [...] to ensure that the information provided by [employer]. ('Kranemtum') is accurate, up-to-date, and complete, but no guarantee is made to that effect. Drug information contained herein may be time sensitive. Streyner information has been compiled for use by healthcare practitioners and consumers in the [place] and therefore Streyner does not warrant that uses outside of the [place] are appropriate, unless specifically indicated otherwise. Tensorcoms drug information does not endorse drugs, diagnose patients or recommend therapy. Tensorcoms drug information is an informational resource designed [...] effective or appropriate for any given patient. Streyner does not assume any responsibility for any aspect of healthcare administered with the aid of information Streyner provides. The information contained herein is not intended to cover all possible uses, directions, precautions, warnings, drug interactions, allergic reactions, or adverse effects. If you have questions about the drugs you are taking, check with your doctor, nurse or pharmacist. Copyright 6523-3271 [employer]. Version: .. Revision Date: 02/18/2014. CIGARETTE SMOKING: The facts are clear, cigarette smoking will shorten your life. Smoking can cause many illnesses along the way. As a healthcare provider, we recommend that you stop smoking. Assistance with quitting is available by contacting 0-367-WIRV-NOW. This is a free resource providing counseling, [...] Be sure to sign up for the [employer] patient portal, which gives you 26/09 access to your medical information ??? including these discharge instructions ??? using your computer, smartphone, or tablet. Just go to [facility] to get started. Questions? Call . [facility] would like to thank you for allowing us to assist you with your healthcare needs. ANASTASIA Rich DENNIS PAUL, (or district representative) have received the above patient education materials/instructions and have verbalized understanding: Patient Signature _ Date/Time Patient Sexual Assault Counsellor Signature (if needed) Date/Time Clinician/Hospital Sexual Assault Counsellor Signature (if needed) Date/Time Electronically signed by Jackie, [facility] Conversion Jukebox Route Driver Cerner at 06/19/2022 11:05 PM CDT documented in this encounter Plan of Treatment Not on file documented as of this encounter Visit Diagnoses Not on filedocumented in this encounter
--- OUTSIDE RECORDS SUMMARY | 2025-03-03 10:25 | XMS_ITS | Encounter Summary ---
Author Organization [employer] ([place], [place], [place], [place], [place]) Address [address] [place] [address] Care Team Providers Care Investigator Narcotics Name Role Phone Unavailable Primary Care Provider Unavailabl e Encounter Details Date Type Department Care Team (Late st Contact Info) Description 04/14/2018 Transcribed Document [facility] [place] [facility] [place] [address] ProviderMg MD [facility] [place] [address] Social History Tobacco Use Types Packs/Day Years Used Date Smoking Tobacco: Never Assessed Sex and Gender Information Value Date Recorded Sex Assigned at Not on file Legal Sex Male 1:09 PM CDT Gender Identity Not on file Sexual Orientation Not on file documented as of this encounter Miscellaneous Notes * Cerner Conversion Note - Historical ProviderMD - 04/14/2018 9:18 PM PEN RIDER Nutrition Assessment Entered On: 04/16/2018 12:01 EST [...] PMH: angina, pacemaker, GERD, CVA, HTN, HLD, NE Labs: Na 135, Alb 3.3 Meds: colace, [...] food Protein Intake : Total protein MACKENZIE PERODMO RD, LD - 04/16/2018 16:12 EST Nutrition [...] PERDOMO RD, LD - 04/16/2018 16:12 EST documented in this encounter Plan of Treatment Not on file documented as of this encounter Visit Diagnoses Not on filedocumented in this encounter
--- OUTSIDE RECORDS SUMMARY | 2025-03-03 10:25 | XMS_ITS | Encounter Summary ---
Author Organization [facility] Address [address] [place] [address] Care Team Providers Care Icicle Machine Operator Name Role Phone Herberth Perez MD Primary Care Provider [phone] Gracia Petersen PEDICURIST Unavailable [phone] Yunior Solorzano MD Unavailable [phone] Ross Baez DO Unavailable [phone] Edith Aleman RN Unavailable Unavailable Encounter Details Date Type Department Care Team (Latest Contact Info) Description 01/06/2025 Anticoagulation - Warfarin Visit [facility] [place] [address] [place] [address] Gracia Vizcarra, RN [facility] [address] [place] [address] LVAD (left ventricular assist device) present ([facility]) (Primary Dx); Anticoagulant long-term use Social [...] drink first t janine in the morning (EYE-STORE WORKER) to steady your nerves or to [...] Description 04/22/2025 9:00 AM EST Ancillary Procedure [facility] [place] [address] [place] [address] documented as of this encounter Goals Goal Patient Goal Type Associated Problems Recent Progress Patient-Stated? Author LVAD Short Term Goal General On track( 024 11:53 AM EDT) Yes Katrin Oviedo RN Note: - 07/04/23: Patient states he wants to attend a wedding in November in [place] LVAD Metal Cabinet Finisher Goal General On track( 024 11:53 AM [...] Blood Venous blood specimen / Unknown 01/05/2025 [facility] Provider POINT OF CARE TEST ENTER/SHERIF T ORDERABLES Final Result documented in this encounter Visit Diagnoses Diagnosis LVAD (left ventricular assist device) present ([facility])- Primary Anticoagulant long-term use Encounter for [...] documented as of this encounter Care Teams Icicle Machine Operator Relationship Specialty Start Date End Date Herberth Perez MD [address] [place] [address] [place] [address] PCP - General 07/17/20 Gracia Petersen APRN [address] [place] [address] Nurse Practitioner Internal Medicine 08/06/20 Yunior Solorzano MD [address] [place] [address] Consulting Physician Gastroenterology 07/18/22 Ross Baez DO [address] [address] Surgeon Cardiothoracic Surgery 07/18/22 Edith Aleman, ENTRY LEVEL PARALEGAL None VAD Coordinator 10/14/24 documented as of this encounter
--- OUTSIDE RECORDS SUMMARY | 2025-03-03 10:25 | XMS_ITS | Encounter Summary ---
Author Organization [employer] ([place], [place], [place], [place], [place]) Address [address] [place] [address] Care Team Providers Care Cryogenic Transport Driver Name Role Phone Unavailable Primary Care Provider Unavailabl e Encounter Details Date Type Department Care Team (Late st Contact Info) Description 03/29/2018 Transcribed Document [facility] [place] [facility] [place] [address] ProviderMg MD [address] [place] [address] Social History Tobacco Use Types Packs/Day Years Used Date Smoking Tobacco: Never Assessed Sex and Gender Information Value Date Recorded Sex Assigned at Not on file Legal Sex Male 1:09 PM CDT Gender Identity Not on file Sexual Orientation Not on file documented as of this encounter Miscellaneous Notes * Cerner Conversion Note - Mg ProviderMD - 03/29/2018 1:22 PM TIMBER SPOTTER Patient Education Materials Follows: Cardiomyopathy, Adult Cardiomyopathy [...] Other treatments may include cardiac resynchronization therapy (CORE SUCKER) or a left ventricular assist device (LVAD). [...] to manage stress. General instructions ??? Take eroe-kpg-xzjbskz and prescription medicines only as told by [...] 05/05/2005 Document Revised: 10/18/2016 Document Reviewed: 08/22/2016 ElseP[employer] Interactive Patient Education ? 2017 [employer] Emergency Medicine Atrial Fibrillation Atrial fibrillation [...] ??? Certain heart rhythm disorders, such as Dfbx-Vvoqbtofx-Opkau syndrome. Other causes include: ??? Pneumonia. ??? [...] 02/20/2006 Document Revised: 06/29/2016 Document Reviewed: 06/17/2015 ElseP[employer] Interactive Patient Education ? 2017 [employer] documented in this encounter Plan of Treatment Not on file documented as of this encounter Visit Diagnoses Not on filedocumented in this encounter
--- OUTSIDE RECORDS SUMMARY | 2025-03-03 10:25 | XMS_ITS | Encounter Summary ---
Author Organization [email or web address] ([place], [place], [place], [place], [place]) Address [address] [place] [address] Care Team Providers Care Branch Manager Name Role Phone Unavailable Primary Care Provider Unavailabl e Encounter Details Date Type Department Care Team (Late st Contact Info) Description 04/20/2018 Transcribed Document [facility] [place] [address] [place] [address] ProviderMg MD [address] [place] [address] Social History Tobacco Use Types Packs/Day Years Used Date Smoking Tobacco: Never Assessed Sex and Gender Information Value Date Recorded Sex Assigned at Not on file Legal Sex Male 1:09 PM CDT Gender Identity Not on file Sexual Orientation Not on file documented as of this encounter Miscellaneous Notes * Cerner Conversion Note - Mg ProviderMD - 04/20/2018 1:08 PM PARK INTERPRETIVE SPECIALIST Patient Education Materials Follows:Medicine Hypotension As your [...] quickly after you eat. Medicines ??? Take tiya-ohg-guoulum and prescription medicines only as told by [...] 11/08/2016 Elsevier Interactive Patient Education ? 2017 [employer] Neurology Syncope Introduction Syncope is when [...] This can help with dizziness. ??? Take bmfl-xjc-xshfbxi and prescription medicines only as told by [...]
--- OUTSIDE RECORDS SUMMARY | 2025-03-03 10:25 | XMS_ITS | Encounter Summary ---
Author Organization [employer] ([place], [place], [place], [place], [place]) Address [address] [place] [address] Care Team Providers Care Skirt Trimmer Name Role Phone Unavailable Primary Care Provider Unavailabl e Encounter Details Date Type Department Care Team (Late st Contact Info) Description 04/20/2018 Transcribed Document [facility] [place] Medicine [facility] [place] [address] ProviderMg MD [facility] [place] [address] Social History Tobacco Use Types Packs/Day Years Used Date Smoking Tobacco: Never Assessed Sex and Gender Information Value Date Recorded Sex Assigned at Not on file Legal Sex Male 1:09 PM CDT Gender Identity Not on file Sexual Orientation Not on file documented as of this encounter Miscellaneous Notes * Cerner Conversion Note - Mg ProviderMD - 04/20/2018 9:41 AM LINEN CONTROLLER Care Management Assessment/Plan Entered On: 04/20/2018 9:42 EST Performed On: 04/20/2018 9:41 EST by Breann Ordaz RN Care Management Note Anticipated Discharge Date : 04/17/2018 21:00 EST Care Management Note : Anticipated discharge today, home plan, follow up with endocrinology arranged...[facility] Care Management Note Report : Breann Ordaz RN - 04/19/18 10:48:25 Home plan at discharge when medically cleared, follow up appoinment placed in discharge form...Breann Beebe RN - 04/18/18 14:23:07 Jim Sanchez set up appointment with [facility]inology, CM cancelled Martin's appointment and faxed patient information over to [phone]...Breann Beebe RN - 04/18/18 10:02:59 CAREY spoke with Rianna field service coordinator at [facility]'s office, fax [phone]. Patient's requested date for start of care is in 2 weeks but retail pharmacy technician as scheduling out for 2-3 months. Patient is on the cancellation list at Dr. Salazar[facility] with a July appointment time. Information sent to above fax, appointment time placed in discharge form...Breann Beebe RN - 04/17/18 13:45:24 Per provider notes, patient scheduled for a DCCV today 04/17/18. [place] to stop all alcohol use. Thyroid work [...] . Home plan at discharge, no needs noted...[facility] Documentation Status Complete : Yes Breann Ordaz, RN - 04/20/2018 9:41 EST Electronically signed by Jackie [facility] Conversion Christmas Tree Grower Cerner at 06/19/2022 11:00 PM CDT documented in this encounter Plan of Treatment Not on file documented as of this encounter Visit Diagnoses Not on filedocumented in this encounter
--- OUTSIDE RECORDS SUMMARY | 2025-03-03 10:25 | XMS_ITS | Encounter Summary ---
Author Organization [employer] ([place], [place], [place], [place], [place]) Address [address] [place] [address] Care Team Providers Care Sheet Rock Sander Name Role Phone Unavailable Primary Care Provider Unavailabl e Encounter Details Date Type Department Care Team (Late st Contact Info) Description 03/29/2018 Transcribed Document [facility] [place] Counts include 234 beds at the [facility] [address] ProviderMg MD Counts include [address] beds at the [facility] [address] Social History Tobacco Use Types Packs/Day Years Used Date Smoking Tobacco: Never Assessed Sex and Gender Information Value Date Recorded Sex Assigned at Not on file Legal Sex Male 1:09 PM CDT Gender Identity Not on file Sexual Orientation Not on file documented as of this encounter Miscellaneous Notes * Cerner Conversion Note - Historical ProviderMD - 03/29/2018 10:29 AM INTELLIGENCE GROUP SUPERVISOR [facility] OT Charges Entered On: 03/29/2018 10:35 EST Performed On: 03/29/2018 10:29 EST by DEIRDRE CASTILLO OTR/Kaushal Hager OT Charges Screen For Cranberry Sorter : 1 DEIRDRE CASTILLO OTR/Kaushal - 03/29/2018 10:35 EST Electronically signed by Morales Mejia Conversion Criminal Justice Program Director Cerner at 06/19/2022 11:15 PM CDT documented in this encounter Plan of Treatment Not on file documented as of this encounter Visit Diagnoses Not on filedocumented in this encounter
--- OUTSIDE RECORDS SUMMARY | 2025-03-03 10:25 | XMS_ITS | Encounter Summary ---
Author Organization [facility] Address [address] [place] [address] Care Team Providers Care Buffing Line Set Up Worker Name Role Phone Herberth Perez MD Primary Care Provider Katrin Oviedo RN Unavailable [phone] Zaida Lafleur WEDDING DAY COORDINATOR Unavailable Gracia Petersen WEDDING DAY COORDINATOR Unavailable [phone] Yunior Solorzano MD Unavailable [phone] Ross Baez DO Unavailable [phone] Edith Aleman RN Unavailable Unavailable Reason for Visit * Reason Comments Med Refill Encounter Details Date Type Department Care Team (Late st Contact Info) Description 07/13/2022 Refill [facility] Angie Dunlap [address] [place] [address] Melisa Vazquez MD [address] [place] [address] Social History Tobacco Use Types Packs/Day Years [...] drink first t janine in the morning (EYE-ELEVATOR TECHNICIAN) to steady your nerves or to [...] Description 04/22/2025 9:00 AM EST Ancillary Procedure [facility] Angie Lloyd [address] [place] [address] documented as of this encounter Visit Diagnoses [...] documented as of this encounter Care Teams Buffing Line Set Up Worker Relationship Specialty Start Date End Date Herberth Perez MD [address] [place] [address] PCP - General 07/17/20 Katrin Oviedo, RN [facility] [address] [place] [address] VAD Coordinator Cardiology 08/06/20 10/21/24 Zaida Lafleur APRN [address] [place] [address] Nurse Practitioner Advanced Heart Failure and Transplant Cardiology 08/06/20 06/11/23 Gracia Petersen, WEDDING DAY COORDINATOR [address] [place] [address] Nurse Practitioner Internal Medicine 08/06/20 Yunior Solorzano MD [address] [address] Consulting Physician Gastroenterology 07/18/22 Ross Baez, [address] [address] Surgeon Cardiothoracic Surgery 07/18/22 Edith Aleman, UNDERGROUND SUPERVISOR None VAD Coordinator 10/14/24 documented as of this encounter
--- OUTSIDE RECORDS SUMMARY | 2025-03-03 10:25 | XMS_ITS | Encounter Summary ---
Author Organization [employer] ([place], [place], [place], [place], [place]) Address [address] [place] [address] Care Team Providers Care Medical Laboratory Technical Officer Name Role Phone Unavailable Primary Care Provider Unavailabl e Encounter Details Date Type Department Care Team (Late st Contact Info) Description 03/29/2018 Transcribed Document [facility] [place] Family Medicine [address] [place] [address] ProviderMg MD [facility] [place], [place] [address] Social History Tobacco Use Types Packs/Day Years Used Date Smoking Tobacco: Never Assessed Sex and Gender Information Value Date Recorded Sex Assigned at Not on file Legal Sex Male 1:09 PM CDT Gender Identity Not on file Sexual Orientation Not on file documented as of this encounter Miscellaneous Notes * Cerner Conversion Note - Historical ProviderMD - 03/29/2018 2:00 AM OBSERVER GRAVITY PROSPECTING Supplier Relationship Director Details Entered On: 03/29/2018 1:30 EST Performed [...]
--- OUTSIDE RECORDS SUMMARY | 2025-03-03 10:25 | XMS_ITS | Encounter Summary ---
Author Organization [employer] ([place], [place], [place], [place], [place]) Address [address] [place] [address] Care Team Providers Care Plsql Developer Name Role Phone Unavailable Primary Care Provider Unavailabl e Encounter Details Date Type Department Care Team (Late st Contact Info) Description 03/29/2018 Transcribed Document [facility] [place] [facility] [place] [address] ProviderMg MD [facility] [place] [address] Social History Tobacco Use Types Packs/Day Years Used Date Smoking Tobacco: Never Assessed Sex and Gender Information Value Date Recorded Sex Assigned at Not on file Legal Sex Male 1:09 PM CDT Gender Identity Not on file Sexual Orientation Not on file documented as of this encounter Miscellaneous Notes * Cerner Conversion Note - Mg Ritchie MD - 03/29/2018 10:02 AM GAS REVERSER DATE OF PROCEDURE: 03/29/2018 RIGHT HEART CATHETERIZATION INDICATIONS: Acute on chronic left systolic heart failure with acute hypoxic respiratory failure. PROCEDURE: The patient has history of nonischemic dilated cardiomyopathy and recently presented to us with worsening [place] [employer] functional class III heart failure symptoms. DESCRIPTION OF PROCEDURE: Following an informed written consent, patient was brought to the cardiac catheterization laboratory where conscious sedation was performed with intravenous Versed and fentanyl for less than 23 minutes. The right groin was prepped and draped in usual sterile fashion and anesthetized with 1% xylocaine solution. Using a single wall puncture technique, an 8-Nauruan side-port sheath was introduced into the right common femoral vein. Sheath aspirated and flushed with heparinized saline solution. An 8-Nauruan [place] thermodilution catheter was advanced under continued fluoroscopic [...]
--- OUTSIDE RECORDS SUMMARY | 2025-03-03 10:25 | XMS_ITS | Encounter Summary ---
Author Organization [employer] ([place], [place], [place], [place], [place]) Address [address] [place] [address] Care Team Providers Care Cut Out Operator Name Role Phone Unavailable Primary Care Provider Stefan pond Encounter Details Date Type Department Care Team (Late st Contact Info) Description 03/29/2018 Transcribed Document [facility] [place] Medicine [facility] [place] [address] ProviderMg MD [facility] [place] [address] Social History Tobacco Use Types Packs/Day Years Used Date Smoking Tobacco: Never Assessed Sex and Gender Information Value Date Recorded Sex Assigned at Not on file Legal Sex Male 1:09 PM CDT Gender Identity Not on file Sexual Orientation Not on file documented as of this encounter Miscellaneous Notes * Cerner Conversion Note - Mg ProviderMD - 03/29/2018 1:19 PM PANAMA HAT HYDRAULIC PRESS OPERATOR Discharge Instructions Entered On: 03/29/2018 13:21 [...]
--- OUTSIDE RECORDS SUMMARY | 2025-03-03 10:25 | XMS_ITS | Encounter Summary ---
Author Organization [employer] ([place], [place], [place], [place], [place]) Address [address] [place] [address] Care Team Providers Care Cd Manufacturing Supervisor Name Role Phone Unavailable Primary Care Provider Unavailabl e Encounter Details Date Type Department Care Team (Late st Contact Info) Description 04/20/2018 Transcribed Document [facility] [place] [facility] [place] [address] ProviderMg MD [address] [place] [address] Social History Tobacco Use Types Packs/Day Years Used Date Smoking Tobacco: Never Assessed Sex and Gender Information Value Date Recorded Sex Assigned at Not on file Legal Sex Male 1:09 PM CDT Gender Identity Not on file Sexual Orientation Not on file documented as of this encounter Miscellaneous Notes * Cerner Conversion Note - Mg ProviderMD - 04/20/2018 1:34 PM TARIFF COUNSEL [place] [address] [facility] [place] [address] Patient Copy Patient Information: Name: JOSE PEARSON Current Date: 04/20/2018 13:34:22 : 1970 Patient [address]: [address] [place] [id number] Patient Attending Physician: Primary Care Provider: HUMA YARBROUGH (REF)MD-INT Primary Care Provider Discharge Diagnosis: Cardiac rhythm disturbance; Hypotension; Scalp contusion; Syncope Weight on Admission: 229 lb, 0 oz Weight at Discharge: 229 lb, 7 oz Comment: Follow-up Instructions: With: Address: When: JONATAN ISABEL [address] [place] [address] [address] [place] [address] Business (1) In 17 days 05/07/2018 Comments: Office to call with appoint/instructions or you may need to call if you have not heard from them With: Address: When: KIM EDOUARD 1:45 PM Comments: follow for thyroid as we discussed. you have the appropriate address With: Address: When: [address] [place], [place] [id number] Business (1) Within 2 weeks Discharge Instructions: Diet after Discharge: Heart healthy diet Activity after Discharge: As tolerated Showering/Bathing: May shower Immunizations Documented During Stay: No Immunizations Found Heart Failure Discharge Instructions (if any): Stroke Related Discharge Instructions (if any): Warfarin Related Discharge Instructions (if any): Final Medication List: [facility] [place], [place] [id number], [phone] dofetilide (Tikosyn 250 mcg oral capsule) 2 [...] nasal (fluticasone 50 mcg/inh nasal spray) 1 [place](s) Nostrils Both Every Day. furosemide (Lasix 40 [...] quickly after you eat. Medicines ??? Take lzfj-dck-mqiyqdk and prescription medicines only as told by [...] 05/17/2010 Document Revised: 11/08/2016 Document Reviewed: 11/08/2016 ElseFate [employer] Interactive Patient Education ? 2017 Elsevier [...] This can help with dizziness. ??? Take rfgo-efg-axdivvr and prescription medicines only as told by [...] right away. Call your local emergency services (151 in the [place] Do not drive yourself [...] may report side effects to FDA at 4-065-ERQ-1287. What other drugs will affect dofetilide? Other drugs may interact with dofetilide, including prescription and lfmd-lly-qdjckyf medicines, vitamins, and herbal products. Tell each [...] to ensure that the information provided by [employer] ('[employer]') is accurate, up-to-date, and complete, but no guarantee is made to that effect. Drug information contained herein may be time sensitive. [employer] information has been compiled for use by healthcare practitioners and consumers in the [place] and therefore [employer] does not warrant that uses outside of the [place] are appropriate, unless specifically indicated otherwise. [employer]'s drug information does not endorse drugs, diagnose patients or recommend therapy. [facility] ([employer])s drug information is an informational resource designed [...] appropriate for any given patient. [facility] does not assume any responsibility for any aspect of healthcare administered with the aid of information [facility] provides. The information contained herein is not intended to cover all possible uses, directions, precautions, warnings, drug interactions, allergic reactions, or adverse effects. If you have questions about the drugs you are taking, check with your doctor, nurse or pharmacist. Copyright 1392-4403 [employer] [employer]. Version: 4.01. Revision Date: 06/17/2015. CIGARETTE SMOKING: The facts are clear, cigarette smoking will shorten your life. Smoking can cause many illnesses along the way. As a healthcare provider, we recommend that you stop smoking. Assistance with quitting is available by contacting 5-737-OLJJ-NOW. This is a free resource providing counseling, [...] Be sure to sign up for the [employer] patient portal, which gives you 26/09 access to your medical information ??? including these discharge instructions ??? using your computer, smartphone, or tablet. Just go to [employer] to get started. Questions? Call . [facility] would like to thank you for allowing us to assist you with your healthcare needs. ANASTASIA Rich DENNIS PAUL, (or technical sales representative) have received the above patient education materials/instructions and have verbalized understanding: Patient Signature _ Date/Time Patient Doorperson Signature (if needed) Date/Time Clinician/Hospital Doorperson Signature (if needed) Date/Time documented in this encounter Plan of Treatment Not on file documented as of this encounter Visit Diagnoses Not on filedocumented in this encounter
--- OUTSIDE RECORDS SUMMARY | 2025-03-03 10:25 | XMS_ITS | Encounter Summary ---
Author Organization [facility] Address [address] [place] [address] Care Team Providers Care Jigmaker Name Role Phone Herberth Perez MD Primary Care Provider [phone] Gracia Petersen INFRASTRUCTURE DESIGN ENGINEER Unavailable [phone] Yunior Solorzano MD Unavailable [phone] Ross Baez DO Unavailable [phone] Edith Aleman RN Unavailable Unavailable Encounter Details Date Type Department Care Team (Late st Contact Info) Description 01/07/2025 Telephone [facility] Troy Lloyd [address] [facility] [place] [address] Melisa Vazquez MD [address] [place] [address] Social History Tobacco Use Types [...] any time in the past 12 m [facility], were you homeless or living in a [...] drink first t janine in the morning (EYE-LEAD HANDLER) to steady your nerves or to get rid of a hangover? 0 09/19/2021 CAGE Questionnaire Score 0 022 Utilities Answer Date Recorded In the past 12 months has th e [employer], gas, oil, or water [employer] threatened to shut off services in your [...] Supply Order Due Date: 01/07/25 Send To: [facility] FX: [phone] Best contact number: [phone] Lyn Optimal time of day to reach caller: ANYTIME Additional comments/information from caller: Caller has previously faxed the order to [phone] and has re-faxed it to [phone] Note: Please do not reply to this [...] Description 04/22/2025 9:00 AM EST Ancillary Procedure [facility] Troy Lloyd [address] [place] [address] documented as of this encounter Goals Goal Patient Goal Type Associated Problems Recent Progress Patient-Stated? Author LVAD Short Term Goal General On track( 024 11:53 AM EDT) Yes Katrin Oviedo, RN Note: - 07/04/23: Patient states he wants to attend a wedding in November in [place] LVAD Retirement Goal General On track( 024 [...] documented as of this encounter Care Teams Jigmaker Relationship Specialty Start Date End Date Herberth Perez MD [address] [place] [address] PCP - General 07/17/20 Gracia Petersen APRN [address] [place] [address] Nurse Practitioner Internal Medicine 08/06/20 Yunior Solorzano MD [address] [place] [address] Consulting Physician Gastroenterology 07/18/22 Ross Baez DO [address] [address] Surgeon Cardiothoracic Surgery 07/18/22 Edith Aleman, PRODUCTION DISPATCHER None VAD Coordinator 10/14/24 documented as of this encounter
--- OUTSIDE RECORDS SUMMARY | 2025-03-03 10:25 | XMS_ITS | Encounter Summary ---
Author Organization [employer] ([place], [place], [place], [place], [place]) Address [address] [place] [address] Care Team Providers Care Collar Turner Name Role Phone Unavailable Primary Care Provider Unavailrodrick e Encounter Details Date Type Department Care Team (Late st Contact Info) Description 03/29/2018 Transcribed Document [facility] [place] [facility] [place] [address] ProviderMg MD [facility] [place] [address] Social History Tobacco Use Types Packs/Day Years Used Date Smoking Tobacco: Never Assessed Sex and Gender Information Value Date Recorded Sex Assigned at Not on file Legal Sex Male 1:09 PM CDT Gender Identity Not on file Sexual Orientation Not on file documented as of this encounter Miscellaneous Notes * [employer]ner Conversion Note - Mg ProviderMD - 03/29/2018 1:18 PM ROLL CLEANER Nursing Discharge Summary Entered On: 03/29/2018 13:19 [...] BRIAN BEASLEY RN - 03/29/2018 13:18 EST Electronically signed by Morales Mejia Conversion Personal Financial Representative Cerner at 06/19/2022 11:11 PM CDT documented in this encounter Plan of Treatment Not on file documented as of this encounter Visit Diagnoses Not on filedocumented in this encounter
--- OUTSIDE RECORDS SUMMARY | 2025-03-03 10:26 | XMS_ITS | Encounter Summary ---
Author Organization [email or web address] ([place], [place], [place], [place], [place]) Address [address] [place] [address] Care Team Providers Care Medical Librarian Name Role Phone Unavailable Primary Care Provider Unavailabl e Encounter Details Date Type Department Care Team (Late st Contact Info) Description 05/28/2018 Transcribed Document [facility] [place] [facility] [place] [address] ProviderMg MD [facility] [place] [address] Social History Tobacco Use Types [...] means of the modified Seldinger technique an 8-Nicaraguan and a 6-Nicaraguan sheath was introduced in right femoral vein. The 8-Nicaraguan sheath was exchanged for a medium curve Agilis long sheath. The 6-Nicaraguan sheath was used to place a deflectable [...] plan is to discharge him from the cath lab tech holding area following recovery from sedation, after [...]
--- OUTSIDE RECORDS SUMMARY | 2025-03-03 10:26 | XMS_ITS | Encounter Summary ---
Author Organization [employer] ([place], [place], [place], [place], [place]) Address [address] [place] [address] Care Team Providers Care Test Deck Supervisor Name Role Phone Unavailable Primary Care Provider Unavailabl e Encounter Details Date Type Department Care Team (Late st Contact Info) Description 04/19/2018 Transcribed Document [facility] [place] [facility] [place] [facility] [place] [address] ProviderMg [place] [address] Social History Tobacco Use Types Packs/Day Years Used Date Smoking Tobacco: Never Assessed Sex and Gender Information Value Date Recorded Sex Assigned at Not on file Legal Sex Male 1:09 PM CDT Gender Identity Not on file Sexual Orientation Not on file documented as of this encounter Miscellaneous Notes * [employer]ner Conversion Note - Historical ProviderMD - 04/19/2018 5:00 PM SUPERVISOR COLOR MAKING Chart Check - Review Order Profile Entered On: 04/19/2018 15:07 EST Performed On: 04/19/2018 17:00 EST by Ana Montenegro RN Chart Check Chart Reviewed Date and Time : 04/19/2018 15:07 EST Powerplans Initiated/Discontinued as Appropriate : Yes All Active Orders Reviewed : Yes Ana Montenegro RN - 04/19/2018 15:07 EST Electronically signed by Jackie [facility] Conversion Fuse Cutter Cerner at 06/19/2022 11:12 PM CDT documented in this encounter Plan of Treatment Not on file documented as of this encounter Visit Diagnoses Not on filedocumented in this encounter
--- OUTSIDE RECORDS SUMMARY | 2025-03-03 10:26 | XMS_ITS | Encounter Summary ---
Author Organization [employer] ([place], [place], [place], [place], [place]) Address [address] [place] [address] Care Team Providers Care Migrant Leader Name Role Phone Unavailable Primary Care Provider Unavailabl e Encounter Details Date Type Department Care Team (Late st Contact Info) Description 04/15/2018 Transcribed Document [facility] [place] [facility] [place] [address] ProviderMg MD [facility] [place] [address] Social History Tobacco Use Types Packs/Day Years Used Date Smoking Tobacco: Never Assessed Sex and Gender Information Value Date Recorded Sex Assigned at Not on file Legal Sex Male 1:09 PM CDT Gender Identity Not on file Sexual Orientation Not on file documented as of this encounter Miscellaneous Notes * Cerner Conversion Note - Historical ProviderMD - 04/15/2018 10:[address] [facility] PT Charges Entered On: 04/15/2018 [...]
--- OUTSIDE RECORDS SUMMARY | 2025-03-03 10:26 | XMS_ITS | Encounter Summary ---
Author Organization [employer] ([place], [place], [place], [place], [place]) Address [address] [place] [address] Care Team Providers Care Doctor Osteopathic Name Role Phone Unavailable Primary Care Provider Stefan pond Encounter Details Date Type Department Care Team (Late st Contact Info) Description 04/14/2018 Transcribed Document [facility] [place] [facility] [place] [address] ProviderMg MD [facility] [place] [address] Social History Tobacco Use Types Packs/Day Years Used Date Smoking Tobacco: Never Assessed Sex and Gender Information Value Date Recorded Sex Assigned at Not on file Legal Sex Male 1:09 PM CDT Gender Identity Not on file Sexual Orientation Not on file documented as of this encounter Miscellaneous Notes * [employer]ner Conversion Note - Mg ProviderMD - 04/14/2018 11:19 PM HEARING AID REPAIR TECHNICIAN Education-Smoking Cessation Entered On: 04/15/2018 6:49 EST [...] Tobacco Cues : Verbalizes understanding Activities to [place] With Smoking Urges : Verbalizes understanding Basic Information About Quitting : Verbalizes understanding Tobacco Use Increases Chance of Relapse : Verbalizes understanding Withdrawal Symptoms Peak After Quitting : Verbalizes understanding Addictive Nature of Tobacco : Verbalizes understanding Caridad Clements RN - 04/15/2018 6:49 EST Electronically signed by [facility] Conversion Imaging Aide Cerner at 06/19/2022 11:00 PM CDT documented in this encounter Plan of Treatment Not on file documented as of this encounter Visit Diagnoses Not on filedocumented in this encounter
--- OUTSIDE RECORDS SUMMARY | 2025-03-03 10:26 | XMS_ITS | Encounter Summary ---
Author Organization [employer] ([place], [place], [place], [place], [place]) Address [address] [place] [address] Care Team Providers Care Assistant Guest Services Manager Name Role Phone Unavailable Primary Care Provider Stefan pond Encounter Details Date Type Department Care Team (Late st Contact Info) Description 04/15/2018 Transcribed Document [facility] [place] [facility] [place] [address] ProviderMg MD [facility] [place] [address] Social History Tobacco Use Types Packs/Day Years Used Date Smoking Tobacco: Never Assessed Sex and Gender Information Value Date Recorded Sex Assigned at Not on file Legal Sex Male 1:09 PM CDT Gender Identity Not on file Sexual Orientation Not on file documented as of this encounter Miscellaneous Notes * [employer]ner Conversion Note - Historical ProviderMD - 04/15/2018 2:00 AM ACCOUNTANT CONTROLLER Grain Wafer Machine Operator Details Entered On: 04/15/2018 6:48 EST Performed [...] Caridad Clements, RN - 04/15/2018 6:48 EST Electronically signed by Morales Mejia Conversion Safety Relief Valve Technician Cerner at 06/19/2022 11:04 PM CDT documented in this encounter Plan of Treatment Not on file documented as of this encounter Visit Diagnoses Not on filedocumented in this encounter
--- OUTSIDE RECORDS SUMMARY | 2025-03-03 10:26 | XMS_ITS | Encounter Summary ---
Author Organization [employer] ([place], [place], [place], [place], [place]) Address [address] [place] [address] Care Team Providers Care Traffic Chief Name Role Phone Unavailable Primary Care Provider Unavailabl e Encounter Details Date Type Department Care Team (Late st Contact Info) Description 04/19/2018 Transcribed Document [facility] [place] [facility] [place] [address] ProviderMg MD [facility] [place] [address] Social History Tobacco Use Types Packs/Day Years Used Date Smoking Tobacco: Never Assessed Sex and Gender Information Value Date Recorded Sex Assigned at Not on file Legal Sex Male 1:09 PM CDT Gender Identity Not on file Sexual Orientation Not on file documented as of this encounter Miscellaneous Notes * Cerner Conversion Note - Mg ProviderMD - 04/19/2018 11:28 AM SOFTWARE CONFIGURATION ENGINEER Patient: JOSE PEARSON Age: 47 years [...] Gastrointestinal: Normal bowel sounds. Integumentary: Warm, Dry, V[place]. Results Review General results HYROID ULTRASOUND HISTORY: [...]
--- OUTSIDE RECORDS SUMMARY | 2025-03-03 10:26 | XMS_ITS | Encounter Summary ---
Author Organization [employer] ([place], [place], [place], [place], [place]) Address [address] [place] [address] Care Team Providers Care Money Manager Name Role Phone Unavailable Primary Care Provider Unavailabl e Encounter Details Date Type Department Care Team (Late st Contact Info) Description 06/26/2018 Transcribed Document [facility] [place] Family Medicine [address] [place] [address] ProviderMg MD [facility] [place] [address] Social History Tobacco Use Types Packs/Day Years [...]
--- OUTSIDE RECORDS SUMMARY | 2025-03-03 10:26 | XMS_ITS | Encounter Summary ---
Author Organization [employer] ([place], [place], [place], [place], [place]) Address [address] [place] [address] Care Team Providers Care Fire Extinguisher Tester Name Role Phone Unavailable Primary Care Provider Unavailabl e Encounter Details Date Type Department Care Team (Late st Contact Info) Description 05/28/2018 Transcribed Document [facility] [place] [facility] [place] [address] ProviderMg [place] [address] Social History Tobacco Use Types [...] Ritchie MD - 05/28/2018 4:50 PM CDT [address] [address] Patient Copy Patient Information: Name: JOSE PEARSON Current Date: 05/28/2018 16:50:55 : 1970 Patient Address: [address] [place] [id number] Patient Attending Physician: JONATAN ISABEL MD-CAR Primary Care Provider: HUMA YARBROUGH (REF)JAYNE Primary Care Provider Discharge Diagnosis: Weight on Admission: 240 lb, 0 oz Comment: Follow-up Instructions: With: Address: [place]: JONATAN ISABEL [address] [facility] [address] [place] [address] Business (1) Comments: Call for [...] nasal (fluticasone 50 mcg/inh nasal spray) 1 [place](s) Nostrils Both Every Day. furosemide (Lasix 40 [...] Document Reviewed: 03/25/2011 ExitCare? Patient Information ?2014 [employer]. Cardiac Ablation Cardiac ablation is a procedure to stop some heart tissue from causing problems. The heart has many electrical connections. Sometimes these connections cause the heart to beat very fast or irregularly. Removing some of the problem areas can improve heart rhythm or make it normal. Ablation is done for people who: ??? Have Cqhyn-Jgbkvuawj-Vvsri syndrome. ??? Have other fast heart rhythms [...] 10/23/2013 Document Revised: 07/28/2016 Document Reviewed: 07/18/2013 [employer] Interactive Patient Education ? 2017 [employer] Moderate Conscious Sedation, Adult, Care After [...] you are awake and alert. ??? Take dlha-mpl-woehxpi and prescription medicines only as told by [...] 12/11/2013 Document Revised: 07/25/2016 Document Reviewed: 06/11/2016 [employer] Interactive Patient Education ? 2017 [employer] CIGARETTE SMOKING: The facts are clear, cigarette smoking will shorten your life. Smoking can cause many illnesses along the way. As a healthcare provider, we recommend that you stop smoking. Assistance with quitting is available by contacting 6-411-QLPC-NOW. This is a free resource providing counseling, [...] Be sure to sign up for the [employer] patient portal, which gives you 26/09 access to your medical information ??? including these discharge instructions ??? using your computer, smartphone, or tablet. Just go to [employer] to get started. Questions? Call . [facility] would like to thank you for allowing us to assist you with your healthcare needs. ANASTASIA Rich DENNIS PAUL, (or human resources representative) have received the above patient education materials/instructions and have verbalized understanding: Patient Signature _ Date/Time Patient Patrol Sergeant Sheriff'S Office Signature (if needed) Date/Time Clinician/Hospital Patrol Sergeant Sheriff'S Office Signature (if needed) Date/Time Electronically signed by Interface, [facility] Conversion Agricultural Services Director Cerner at 06/19/2022 10:50 PM CDT documented in this encounter Plan of Treatment Not on file documented as of this encounter Visit Diagnoses Not on filedocumented in this encounter
--- OUTSIDE RECORDS SUMMARY | 2025-03-03 10:26 | XMS_ITS | Encounter Summary ---
Author Organization [employer] ([place], [place], [place], [place], [place]) Address [address] [place] [address] Care Team Providers Care Live In Caregiver Name Role Phone Unavailable Primary Care Provider Unavailabl e Encounter Details Date Type Department Care Team (Late st Contact Info) Description 06/25/2018 Transcribed Document [facility] Radiology [address] [place] [address] Judy Perry MD [address] [address] Social History Tobacco Use Types [...] is a 48 yo male admitted to [facility] per Dr. Davis for a cardiac ablation. [...] Bedtime fluticasone 50 mcg/inh nasal spray 1 [place], Nostrils Both, Daily Lasix 40 mg oral [...] see supporting data below *Scribed by [facility] Status Allergies: Allergic Reactions (Selected) No Known [...] Refill(s) fluticasone 50 mcg/inh nasal spray: 1 [place], Nostrils Both, Daily, 0 Refill(s) montelukast 10 mg oral tablet: 1 Tab, Oral, Daily, 0 Refill(s) pravastatin 80 mg oral tablet: 1 Tab, Oral, At Bedtime, 0 Refill(s) spironolactone: 25 mg, Oral, Daily, 0 Refill(s), Medications (1) Active Scheduled: (1) diazepam 5 mg tab 5 mg 1 Tab, Oral, 1-Time Continuous: (0) PRN: (0) Problem list: Medical angina / SNOMED CT 872491610 / Confirmed At risk for sleep apnea / IMO 74812451 / Confirmed cardiac defibulator / Confirmed interrogated at physicians office---02/22/13 pacemaker / SNOMED CT 5678878352 / Confirmed stroke / SNOMED CT 438967954 / Confirmed he had a stroke when they found the blood clot in valve History of obstructive sleep apnea / IMO 55338117 / Confirmed high cholesterol / SNOMED CT 79242061 / Confirmed hypertension / SNOMED CT 3530765429 / Confirmed myocardial infarction / SNOMED CT 33742365 / Confirmed sesonal allergies / Confirmed, Active [...]
--- OUTSIDE RECORDS SUMMARY | 2025-03-03 10:26 | XMS_ITS | Encounter Summary ---
Author Organization [employer] ([place], [place], [place], [place], [place]) Address [address] [place] [address] Care Team Providers Care Hemstitcher Name Role Phone Unavailable Primary Care Provider Unavailabl e Encounter Details Date Type Department Care Team (Late st Contact Info) Description 06/25/2018 Transcribed Document [facility] [place] [facility] [place] [address] ProviderMg MD [facility] [place] [address] Social History Tobacco Use Types [...] Source : Stated Height Entry Format : [place] Height, Feet : 6 ft(Converted to: 183 cm, 72 Inch) Height, Inches : 0 Inch(Converted to: 0 ft 0 Inch, 0.00 cm) Clinical Height : 182.88 cm Weight Source : Standing scale Weight Entry Format : [place] Clinical Dosing Weight : 106.36 kg Weight, Pounds : 234 lb Body Surface Area (BSA) : 2.28 m2 Body Mass Index : 31.8 kg/m2 (HI) Bim Body Weight : 77 kg YOEL SANTANA [...] EDT Legal Guardian : Spouse Support Person/Patient Solid Surface Fabricator : Yes Support Person/Pt Rep Name : Deidre Pearson-- Support Person/Pt Rep Contact Information : [phone] Want Family/Rep/Phys Notified of Admit : No Emergency Contact #1 : Deidre Pearson Emergency Contact #1 Emergency Contact #1 Relationship : Emergency Contact #2 : na Emergency Contact #2 Phone Number : na Emergency Contact #2 Relationship : na Chief Complaint : ep/ablation Information Obtained From : Patient, Spouse Primary Language : Citizen Of [place] Preferred Communication Mode : Verbal Communication Barrier [...] Scale Risk Level : 0-24 Low Risk Nellis Fall Interventions : Adequate lighting, Assistive devices [...]
--- OUTSIDE RECORDS SUMMARY | 2025-03-03 10:26 | XMS_ITS | Encounter Summary ---
Author Organization [employer] ([place], [place], [place], [place], [place]) Address [address] [place] [address] Care Team Providers Care Transportation Job Titles Name Role Phone Unavailable Primary Care Provider Stefan pond Encounter Details Date Type Department Care Team (Late st Contact Info) Description 04/15/2018 Transcribed Document [facility] [place] [facility] [place] [address] ProviderMg MD [facility] [place] [address] Social History Tobacco Use Types Packs/Day Years Used Date Smoking Tobacco: Never Assessed Sex and Gender Information Value Date Recorded Sex Assigned at Not on file Legal Sex Male 1:09 PM CDT Gender Identity Not on file Sexual Orientation Not on file documented as of this encounter Miscellaneous Notes * Cerner Conversion Note - Historical ProviderMD - 04/15/2018 5:00 AM MANAGER OF CARE Chart Check - Review Order Profile Entered [...]
--- OUTSIDE RECORDS SUMMARY | 2025-03-03 10:26 | XMS_ITS | Encounter Summary ---
Author Organization [employer] ([place], [place], [place], [place], [place]) Address [address] [place] [address] Care Team Providers Care Meat Press Operator Name Role Phone Unavailable Primary Care Provider Unavailabl e Encounter Details Date Type Department Care Team (Late st Contact Info) Description 04/16/2018 Transcribed Document [facility] [place] [facility] [place] [address] ProviderMg MD [facility] [address] Social History Tobacco Use Types Packs/Day Years Used Date Smoking Tobacco: Never Assessed Sex and Gender Information Value Date Recorded Sex Assigned at Not on file Legal Sex Male 1:09 PM CDT Gender Identity Not on file Sexual Orientation Not on file documented as of this encounter Miscellaneous Notes * Cerner Conversion Note - Historical ProviderMD - 04/16/2018 11:08 AM DIRECTOR PRIVATE MUSIC THERAPY AGENCY [facility] OT Charges Entered On: 04/16/2018 11:08 EST Performed On: 04/16/2018 11:08 EST by NAHUM CORNELIUS OTR/Kaushal Hager OT Charges Screen For Ferris Wheel Attendant : 1 NAHUM CORNELIUS OTR/Kaushal - 04/16/2018 11:08 EST documented in this encounter Plan of Treatment Not on file documented as of this encounter Visit Diagnoses Not on filedocumented in this encounter
--- OUTSIDE RECORDS SUMMARY | 2025-03-03 10:26 | XMS_ITS | Encounter Summary ---
Author Organization [employer] ([place], [place], [place], [place], [place]) Address [address] [place] [address] Care Team Providers Care Hand Paint Mixer Name Role Phone Unavailable Primary Care Provider Unavailabl e Encounter Details Date Type Department Care Team (Late st Contact Info) Description 04/15/2018 Transcribed Document [facility] [place] Family Medicine [address] [place] [address] ProviderMg MD [facility] [place] [address] Social History Tobacco Use Types Packs/Day Years Used Date Smoking Tobacco: Never Assessed Sex and Gender Information Value Date Recorded Sex Assigned at Not on file Legal Sex Male 1:09 PM CDT Gender Identity Not on file Sexual Orientation Not on file documented as of this encounter Miscellaneous Notes * [employer]ner Conversion Note - Historical ProviderMD - 04/15/2018 10:08 AM VENDOR MANAGEMENT ASSOCIATE Therapy Screen, PT Entered On: 04/15/2018 10:09 [...] 04/15/2018 10:08 EST Electronically signed by Jackie [facility] Conversion Auto Collision Repair Instructor Cerner at 06/19/2022 11:09 PM CDT documented in this encounter Plan of Treatment Not on file documented as of this encounter Visit Diagnoses Not on filedocumented in this encounter
--- OUTSIDE RECORDS SUMMARY | 2025-03-03 10:26 | XMS_ITS | Encounter Summary ---
Author Organization [employer] ([place], [place], [place], [place], [place]) Address [address] [place] [address] Care Team Providers Care Cook Cashier Food Prep Name Role Phone Unavailable Primary Care Provider Unavailabl e Encounter Details Date Type Department Care Team (Late st Contact Info) Description 04/15/2018 Transcribed Document [facility] [place] Family Medicine [facility] [place] [address] ProviderMg MD [facility] [place], [place] [id number] Social History Tobacco Use Types Packs/Day Years Used Date Smoking Tobacco: Never Assessed Sex and Gender Information Value Date Recorded Sex Assigned at Not on file Legal Sex Male 1:09 PM CDT Gender Identity Not on file Sexual Orientation Not on file documented as of this encounter Miscellaneous Notes * Cerner Conversion Note - Mg Ritchie MD - 04/15/2018 9:38 AM INVENTORY CONTROL PLANNER Patient: JOSE PEARSON Age: 47 years Sex: Male : 1970 Associated Diagnoses: None Author: KATY FRIAS MD-CAR Chief Complaint got shocked last night History of Present Illness 47-year-old male with history of nonischemic artery myopathy diagnosed in 2007, the patient had normal coronaries, the patient had received IV ICD, he also has atrial fibrillation paroxysmal, the patient was recently admitted to [facility] for right heart catheterization, he was [...] Refill(s) fluticasone 50 mcg/inh nasal spray: 1 [place], Nostrils Both, Daily, 0 Refill(s) montelukast 10 [...] Problem list: Medical angina / SNOMED CT 052339456 / Confirmed At risk for sleep apnea / IMO 09416107 / Confirmed cardiac defibulator / Confirmed interrogated at physicians office---02/22/13 pacemaker / SNOMED CT 7958034534 / Confirmed stroke / SNOMED CT 226609900 / Confirmed he had a stroke when they found the blood clot in valve 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 / Confirmed treated with blood thinners History of obstructive sleep apnea / IMO 76418435 / Confirmed high cholesterol / SNOMED CT 88175250 / Confirmed hypertension / SNOMED CT 7127521879 / Confirmed myocardial infarction / SNOMED CT 90606358 / Confirmed sesonal allergies / Confirmed, Active [...] EST Height Source Stated Height Entry Format Kings Height/Length, PALESTINIAN (ft) 6 ft Height/Length PALESTINIAN 0 Inch CLINICALHEIGHT 182.88 cm [place] Body Weight 77 kg Weight Source Standing scale Weight Entry Format Kings Weight Maced[place] lb 229 lb Weight Macedonian oz 5 oz CLINICALWEIGHT 104.23 kg Body Surface Area (BSA) 2.26 m2 Body Mass Index 31.2 kg/m2 HI 04/14/2018 19:04 EST Height Source Stated Height Entry Format [place] Height/Length, PALESTINIAN (ft) 6 ft Height/Length PALESTINIAN 0 Inch CLINICALHEIGHT 182.88 cm [place] Body Weight 76.59 kg Weight Source, ED Standing scale Weight Entry Format Kings Weight Macedonian lb 229 lb CLINICALWEIGHT 104.09 kg Body [...] of motion, Normal strength. Integumentary: Warm, Dry, Uncertain. Neurologic: Alert, Oriented. Cognition and Speech: Oriented, [...]
--- OUTSIDE RECORDS SUMMARY | 2025-03-03 10:26 | XMS_ITS | Encounter Summary ---
Author Organization [employer] ([place], [place], [place], [place], [place]) Address [address] [place] [address] Care Team Providers Care Grease Monkey Name Role Phone Unavailable Primary Care Provider Unavailabl e Encounter Details Date Type Department Care Team (Late st Contact Info) Description 04/19/2018 Transcribed Document [facility] [place] Family Medicine [facility] [place] [address] ProviderMg MD [facility] [place] [address] Social History Tobacco Use Types Packs/Day Years Used Date Smoking Tobacco: Never Assessed Sex and Gender Information Value Date Recorded Sex Assigned at Not on file Legal Sex Male 1:09 PM CDT Gender Identity Not on file Sexual Orientation Not on file documented as of this encounter Miscellaneous Notes * Cerner Conversion Note - Historical ProviderMD - 04/19/2018 5:00 AM BROOMMAKING SUPERVISOR Chart Check - Review Order Profile Entered On: 04/19/2018 6:22 EST Performed On: 04/19/2018 5:00 EST by JB GUTIERREZ RN Chart Check Chart Reviewed Date and Time : 04/19/2018 6:22 EST Powerplans Initiated/Discontinued as Appropriate : Yes All Active Orders Reviewed : Yes JB GUTIERREZ RN - 04/19/2018 6:22 EST Electronically signed by Jackie [facility] Conversion Six Pack Loader Operator Cerner at 06/19/2022 10:49 PM CDT documented in this encounter Plan of Treatment Not on file documented as of this encounter Visit Diagnoses Not on filedocumented in this encounter
--- OUTSIDE RECORDS SUMMARY | 2025-03-03 10:26 | XMS_ITS | Encounter Summary ---
Author Organization [employer] ([place], [place], [place], [place], [place]) Address [address] [place] [address] Care Team Providers Care Councilman Name Role Phone Unavailable Primary Care Provider Unavailabl e Encounter Details Date Type Department Care Team (Late st Contact Info) Description 04/15/2018 Transcribed Document [facility] [place] Family Medicine [facility] [place] [address] ProviderMg MD [address] [place] [address] Social History Tobacco Use Types Packs/Day Years Used Date Smoking Tobacco: Never Assessed Sex and Gender Information Value Date Recorded Sex Assigned at Not on file Legal Sex Male 1:09 PM CDT Gender Identity Not on file Sexual Orientation Not on file documented as of this encounter Miscellaneous Notes * Cerner Conversion Note - Mg ProviderMD - 04/15/2018 2:01 AM OFFICE AUTOMATION TECHNICIAN [address] [id number] Patient Information Name: JOSE PEARSON Age: 47 [...] range between ( 1.0 and 7.0 ) Cotton #: 1.17 K/uL -- Normal range between ( 0.24 and 0.82 ) Eos #: 0.12 K/uL -- Normal range between ( 0.04 and 0.54 ) Cotton %: 19.4 % -- Normal range between [...] ) Urine Bilirubin Dipstick: Negative Urine Specific [place]: 1.020 -- Normal range between ( 1.005 and 1.030 ) Urine Chemistry 04/14/18 23:23:00 Sodium Ur [place]: 48 mMole/Liter General Chemistry 04/14/18 22:35:00 Creatinine [...] that ANASTASIA JOSE PAIGE was seen at [facility] [...] Assistance with quitting is available by contacting 1-679-ALVH-NOW. This is a free resource providing counseling, [...] Electronic Communications Privacy Act 18 U.S.C. ???Sections 5042-6058,?? and contain information intended for the specified [...] sure to sign up for the My [facility] patient portal, which gives you 26/09 access to your medical information ??? including these discharge instructions ??? using your computer, smartphone, or tablet. Just go to [employer] to get started. Questions? Call . Acknowledgment [...] Instructions: Emergency Physician: Electronically signed by Interface, [facility] Conversion Vender Cerner at 06/19/2022 11:12 PM CDT documented in this encounter Plan of Treatment Not on file documented as of this encounter Visit Diagnoses Not on filedocumented in this encounter
--- OUTSIDE RECORDS SUMMARY | 2025-03-03 10:26 | XMS_ITS | Encounter Summary ---
Author Organization [employer] ([place], [place], [place], [place], [place]) Address [address] [place] [address] Care Team Providers Care Signal Circuit Designer Name Role Phone Unavailable Primary Care Provider Unavailabl e Encounter Details Date Type Department Care Team (Late st Contact Info) Description 04/19/2018 Transcribed Document [facility] [place] Family Medicine [facility] [place] [address] ProviderMg MD [facility] [place] [address] Social History Tobacco Use Types Packs/Day Years Used Date Smoking Tobacco: Never Assessed Sex and Gender Information Value Date Recorded Sex Assigned at Not on file Legal Sex Male 1:09 PM CDT Gender Identity Not on file Sexual Orientation Not on file documented as of this encounter Miscellaneous Notes * Cerner Conversion Note - Historical ProviderMD - 04/19/2018 5:00 AM LINOTYPE OPERATOR Height and Weight, Routine Entered On: 04/19/2018 5:58 EST Performed On: 04/19/2018 5:00 EST by Polly Renteria Care [facility] Unit Coord Height and Weight, Routine Routine Weight Source : Standing scale Routine Weight Entry Format : [place] Routine Weight, Pounds : 229 lb Routine Weight, Ounces : 9 oz Routine Weight Calculation : 104.35 kg Height Source : Stated Height Entry Format : [place] Height, Feet : 6 ft Height, Inches : 0 Inch Clinical Height : 182.88 cm Body Surface Area (BSA), Routine : 2.26 m2 Body Mass Index (BMI), Routine : 31.2 kg/m2 Polly Renteria Care [facility] Unit Coord - 04/19/2018 5:58 EST documented in this encounter Plan of Treatment Not on file documented as of this encounter Visit Diagnoses Not on filedocumented in this encounter
--- OUTSIDE RECORDS SUMMARY | 2025-03-03 10:26 | XMS_ITS | Encounter Summary ---
Author Organization [employer] ([place], [place], [place], [place], [place]) Address [address] [place] [address] Care Team Providers Care Laborer Turkey Farm Name Role Phone Unavailable Primary Care Provider Unavailabl e Encounter Details Date Type Department Care Team (Late st Contact Info) Description 04/17/2018 Transcribed Document [facility] [place] Family Medicine [facility] [place] [address] ProviderMg MD [facility] [place] [address] Social History Tobacco Use [...] Historical ProviderMD - 04/17/2018 5:00 PM LINER MAN Chart Check - Review Order Profile Entered On: 04/17/2018 17:30 EST Performed On: 04/17/2018 17:00 EST by EVE NGUYEN RN Chart Check Chart Reviewed Date and Time : 04/17/2018 17:30 EST Powerplans Initiated/Discontinued as Appropriate : Yes All Active Orders Reviewed : Yes EVE NGUYEN RN - 04/17/2018 17:30 EST documented in this encounter Plan of Treatment Not on file documented as of this encounter Visit Diagnoses Not on filedocumented in this encounter
--- OUTSIDE RECORDS SUMMARY | 2025-03-03 10:26 | XMS_ITS | Encounter Summary ---
Author Organization [employer] ([place], [place], [place], [place], [place]) Address [address] [place] [address] Care Team Providers Care Network Firewall Engineer Name Role Phone Unavailable Primary Care Provider Unavailabl e Encounter Details Date Type Department Care Team (Late st Contact Info) Description 04/19/2018 Transcribed Document [facility] [place] Family Medicine [facility] [place] [address] ProviderMg MD [facility] [place] [address] Social History Tobacco Use Types Packs/Day Years Used Date Smoking Tobacco: Never Assessed Sex and Gender Information Value Date Recorded Sex Assigned at Not on file Legal Sex Male 1:09 PM CDT Gender Identity Not on file Sexual Orientation Not on file documented as of this encounter Miscellaneous Notes * Cerner Conversion Note - Mg Ritchie MD - 04/19/2018 3:53 PM MDM DEVELOPER DATE OF STUDY: 04/17/2018 SYNCHRONOUS DC CARDIOVERSION [...] Hobbs M.D. Electronically signed by Jackie [facility] Conversion Gunsmith Apprentice Cerner at 06/19/2022 11:14 PM CDT documented in this encounter Plan of Treatment Not on file documented as of this encounter Visit Diagnoses Not on filedocumented in this encounter
--- OUTSIDE RECORDS SUMMARY | 2025-03-03 10:26 | XMS_ITS | Encounter Summary ---
Author Organization [employer] ([place], [place], [place], [place], [place]) Address [address] [place] [address] Care Team Providers Care Optometric Tech Name Role Phone Unavailable Primary Care Provider Unavailabl e Encounter Details Date Type Department Care Team (Late st Contact Info) Description 04/15/2018 Transcribed Document [facility] [place] Family [place] [address] ProviderMg MD [facility] [address] Social History Tobacco Use Types Packs/Day Years Used Date Smoking Tobacco: Never Assessed Sex and Gender Information Value Date Recorded Sex Assigned at Not on file Legal Sex Male 1:09 PM CDT Gender Identity Not on file Sexual Orientation Not on file documented as of this encounter Miscellaneous Notes * Cerner Conversion Note - Mg Ritchie MD - 04/15/2018 1:54 PM BIOMETRICS INSTRUCTOR Patient: JOSE PEARSON Age: 47 years Sex: [...] , the patient was recently admitted to [facility] for right heart catheterization, he was [...] twice. He was therefore brought in to [facility] emergency room. Review of Systems [...] Refill(s) fluticasone 50 mcg/inh nasal spray: 1 [place], Nostrils Both, Daily, 0 Refill(s) montelukast 10 [...] Problem list: Medical angina / SNOMED CT 104948532 / Confirmed At risk for sleep apnea / IMO 56060009 / Confirmed cardiac defibulator / Confirmed interrogated at physicians office---02/22/13 pacemaker / SNOMED CT 1861919095 / Confirmed stroke / SNOMED CT 444795005 / Confirmed he had a stroke when they found the blood clot in valve 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 / Confirmed treated with blood thinners History of obstructive sleep apnea / IMO 87793200 / Confirmed high cholesterol / SNOMED CT 17281576 / Confirmed hypertension / SNOMED CT 9210906819 / Confirmed myocardial infarction / SNOMED CT 04990727 / Confirmed sesonal allergies / Confirmed, Active [...]
--- OUTSIDE RECORDS SUMMARY | 2025-03-03 10:26 | XMS_ITS | Encounter Summary ---
Author Organization [employer] ([place], [place], [place], [place], [place]) Address [address] [place] [address] Care Team Providers Care Substance Abuse Nurse Name Role Phone Unavailable Primary Care Provider Unavailabl e Encounter Details Date Type Department Care Team (Late st Contact Info) Description 04/18/2018 Transcribed Document [facility] [place] [facility] [place] [address] ProviderMg MD [address] [place] [address] Social History Tobacco Use Types Packs/Day Years Used Date Smoking Tobacco: Never Assessed Sex and Gender Information Value Date Recorded Sex Assigned at Not on file Legal Sex Male 1:09 PM CDT Gender Identity Not on file Sexual Orientation Not on file documented as of this encounter Miscellaneous Notes * Cerner Conversion Note - Mg ProviderMD - 04/18/2018 9:58 AM BUSINESS LAWYER [address] , [place] [id number] Patient Copy Patient Information: Name: JOSE PEARSON Current Date: 04/18/2018 09:58:44 : 1970 Patient Address: [address] [place] [id number] Patient Attending Physician: KATY FRIAS MD-CAR Primary Care Provider: HUMA YARBROUGH (REF)MD-VENKAT Primary Care Provider Discharge Diagnosis: Cardiac rhythm disturbance; Hypotension; Scalp contusion; Syncope Weight on Admission: 229 lb, 0 oz Weight at Discharge: 229 lb, 2 oz Comment: Follow-up Instructions: With: Address: When: FRANK COREAS [facility] [address] , [address] [place] [address] Business (1) 2:00 PM Comments: Appointment has [...] nasal (fluticasone 50 mcg/inh nasal spray) 1 Oak[place](s) Nostrils Both Every Day. furosemide (Lasix 40 [...] may report side effects to FDA at 9-828-YWP-4418. What other drugs will affect dofetilide? Other drugs may interact with dofetilide, including prescription and bayw-kto-sxhjaao medicines, vitamins, and herbal products. Tell each [...] to ensure that the information provided by [employer]. ('[employer]') is accurate, up-to-date, and complete, but no guarantee is made to that effect. Drug information contained herein may be time sensitive. [employer] information has been compiled for use by healthcare practitioners and consumers in the [place] and therefore [employer] does not warrant that uses outside of the [place] are appropriate, unless specifically indicated otherwise. [employer]'s drug information does not endorse drugs, diagnose patients or recommend therapy. [employer] drug information is an informational resource designed [...] effective or appropriate for any given patient. [employer] does not assume any responsibility for any aspect of healthcare administered with the aid of information [employer] provides. The information contained herein is not intended to cover all possible uses, directions, precautions, warnings, drug interactions, allergic reactions, or adverse effects. If you have questions about the drugs you are taking, check with your doctor, nurse or pharmacist. Copyright 9982-2372 [employer]. Version: 4.01. Revision Date: 06/17/2015. CIGARETTE SMOKING: The facts are clear, cigarette smoking will shorten your life. Smoking can cause many illnesses along the way. As a healthcare provider, we recommend that you stop smoking. Assistance with quitting is available by contacting 2-761-EPYG-NOW. This is a free resource providing counseling, [...] Be sure to sign up for the [facility] patient portal, which gives you 26/09 access to your medical information ??? including these discharge instructions ??? using your computer, smartphone, or tablet. Just go to [employer] to get started. Questions? Call . [facility] would like to thank you for allowing us to assist you with your healthcare needs. ANASTASIA Rich DENNIS PAUL, (or unit support representative) have received the above patient education materials/instructions and have verbalized understanding: Patient Signature _ Date/Time Patient Final Assembly Worker Signature (if needed) Date/Time Clinician/Hospital Final Assembly Worker Signature (if needed) Date/Time Electronically signed by Jackie, [facility] Conversion Travel Information Center Supervisor Cerner at 06/19/2022 11:14 PM CDT documented in this encounter Plan of Treatment Not on file documented as of this encounter Visit Diagnoses Not on filedocumented in this encounter
--- OUTSIDE RECORDS SUMMARY | 2025-03-03 10:26 | XMS_ITS | Encounter Summary ---
Author Organization [employer] ([place], [place], [place], [place], [place]) Address [address] [place] [address] Care Team Providers Care Librarian Name Role Phone Unavailable Primary Care Provider Unavailabl e Encounter Details Date Type Department Care Team (Late st Contact Info) Description 05/28/2018 Transcribed Document [facility] [place] Family Medicine [address] [place] [address] ProviderMg MD [facility] [place] [address] Social History Tobacco Use Types Packs/Day Years [...]
--- OUTSIDE RECORDS SUMMARY | 2025-03-03 10:26 | XMS_ITS | Encounter Summary ---
Author Organization [employer] ([place], [place], [place], [place], [place]) Address [address] [place] [address] Care Team Providers Care Outbound Sales Advisor Name Role Phone Unavailable Primary Care Provider Unavailabl e Encounter Details Date Type Department Care Team (Late st Contact Info) Description 04/15/2018 Transcribed Document [facility] [place] Family Medicine [facility] [place] [address] ProviderMg MD [address] [place] [address] Social History Tobacco Use Types Packs/Day Years Used Date Smoking Tobacco: Never Assessed Sex and Gender Information Value Date Recorded Sex Assigned at Not on file Legal Sex Male 1:09 PM CDT Gender Identity Not on file Sexual Orientation Not on file documented as of this encounter Miscellaneous Notes * Cerner Conversion Note - Mg Ritchie MD - 04/15/2018 2:01 AM INSERTING OPERATOR [address] [place] [address] PERSON INFORMATION Name JOSE PEARSON Age 47 Years 1970 Sex Male Language Lithuanian PCP HUMA YARBROUGH (REF)MD-INT Marital Status Med Service Cardiology Acct# Arrival 04/14/2018 19:00:00 Visit Reason Syncope/Near syncope; Medical problem reevaluation; BREAKDOWN (MECHANICAL) OF CARDIAC ELECTRODE, INIT ENCNTR Acuity 2 - Emergent LOS 000 07:01 Depart Date: 00:00 AM Address: [address] [place] [id number] Comment: PROVIDER INFORMATION Provider Role Assigned Unassigned [...]
--- OUTSIDE RECORDS SUMMARY | 2025-03-03 10:26 | XMS_ITS | Encounter Summary ---
Author Organization [employer] ([place], [place], [place], [place], [place]) Address [address] [place] [address] Care Team Providers Care Window Dresser Name Role Phone Unavailable Primary Care Provider Unavailabl e Encounter Details Date Type Department Care Team (Late st Contact Info) Description 04/19/2018 Transcribed Document [facility] [place] Family Medicine [facility] [place] [address] ProviderMg MD [facility] [place] [address] Social History Tobacco Use Types Packs/Day Years Used Date Smoking Tobacco: Never Assessed Sex and Gender Information Value Date Recorded Sex Assigned at Not on file Legal Sex Male 1:09 PM CDT Gender Identity Not on file Sexual Orientation Not on file documented as of this encounter Miscellaneous Notes * Cerner Conversion Note - Mg ProviderMD - 04/19/2018 10:48 AM PRESSURE WASHER Care Management Assessment/Plan Entered On: 04/19/2018 10:48 EST Performed On: 04/19/2018 10:48 EST by Breann Ordaz, RN Care Management Note Anticipated Discharge Date : 04/17/2018 21:00 EST Care Management Note : Home plan at discharge when medically cleared, follow up appoinment placed in discharge form...arh Care Management Note Report : Breann Ordaz, RN - 04/18/18 14:23:07 Jim Sanchez set up appointment with [facility] endocrinology, CAREY cancelled Salazar's appointment and faxed patient information over to [phone]...arh Breann Ordaz, RN - 04/18/18 10:02:59 CM spoke with Rianna technical project coordinator at [facility]'s office, fax [phone]. Patient's requested date for start of care is in 2 weeks but vacuum drier operator as scheduling out for 2-3 months. Patient is on the cancellation list at Dr. Salazar's with a July appointment time. Information sent to above fax, appointment time placed in discharge form...Breann Beebe, RN - 04/17/18 13:45:24 Per provider notes, patient scheduled for a DCCV today 04/17/18. Laquey to stop all alcohol use. Thyroid work [...] . Home plan at discharge, no needs noted...[facility] Documentation Status Complete : Yes Breann Ordaz, RN - 04/19/2018 10:48 EST Electronically signed by Jackie [facility] Conversion Student Life Advisor Cerner at 06/19/2022 11:09 PM CDT documented in this encounter Plan of Treatment Not on file documented as of this encounter Visit Diagnoses Not on filedocumented in this encounter
--- OUTSIDE RECORDS SUMMARY | 2025-03-03 10:26 | XMS_ITS | Encounter Summary ---
Author Organization [employer] ([place], [place], [place], [place], [place]) Address [address] [place] [address] Care Team Providers Care Bore Mill Operator For Plastic Name Role Phone Unavailable Primary Care Provider Unavailabl e Encounter Details Date Type Department Care Team (Late st Contact Info) Description 05/28/2018 Transcribed Document [facility] [place] Family Medicine [facility] [place] [address] ProviderMg MD [facility] [place] [address] Social History Tobacco [...] Ritchie MD - 05/28/2018 5:34 PM CDT [address] [address] Patient Copy Patient Information: Name: JOSE PEARSON Current Date: 05/28/2018 17:34:18 : 1970 Patient Address: [address] [place] [id number] Patient Attending Physician: JONATAN ISABEL MD-CAR Primary Care Provider: HUMA YARBROUGH (REF)JAYNE Primary Care Provider Discharge Diagnosis: Weight on Admission: 240 lb, 0 oz Comment: Follow-up Instructions: With: Address: [place]: JONATAN ISABEL [address] [facility] [address] [place] [address] Business (1) Comments: Call for [...] nasal (fluticasone 50 mcg/inh nasal spray) 1 [place](s) Nostrils Both Every Day. furosemide (Lasix 40 [...] Document Reviewed: 03/25/2011 ExitCare? Patient Information ?2014 [employer]. Cardiac Ablation Cardiac ablation is a procedure to stop some heart tissue from causing problems. The heart has many electrical connections. Sometimes these connections cause the heart to beat very fast or irregularly. Removing some of the problem areas can improve heart rhythm or make it normal. Ablation is done for people who: ??? Have Vxoen-Vfnzqqhkb-Vehtk syndrome. ??? Have other fast heart rhythms [...] 10/23/2013 Document Revised: 07/28/2016 Document Reviewed: 07/18/2013 [employer] Interactive Patient Education ? 2017 [employer]. Moderate Conscious Sedation, Adult, Care After [...] you are awake and alert. ??? Take qkqf-foh-fiewzeh and prescription medicines only as told by [...] 12/11/2013 Document Revised: 07/25/2016 Document Reviewed: 06/11/2016 [employer] Interactive Patient Education ? 2017 [employer]. CIGARETTE SMOKING: The facts are clear, cigarette smoking will shorten your life. Smoking can cause many illnesses along the way. As a healthcare provider, we recommend that you stop smoking. Assistance with quitting is available by contacting 0-200-ZWTK-NOW. This is a free resource providing counseling, [...] Be sure to sign up for the [employer] patient portal, which gives you 26/09 access to your medical information ??? including these discharge instructions ??? using your computer, smartphone, or tablet. Just go to [employer] to get started. Questions? Call . [facility] would like to thank you for allowing us to assist you with your healthcare needs. ANASTASIA Rich DENNIS PAUL, (or textiles sales representative) have received the above patient education materials/instructions and have verbalized understanding: Patient Signature _ Date/Time Patient Senior Examiner Signature (if needed) Date/Time Clinician/Hospital Senior Examiner Signature (if needed) Date/Time Electronically signed by Interface, [facility] Conversion Biodiesel Operations Manager Cerner at 06/19/2022 10:58 PM CDT documented in this encounter Plan of Treatment Not on file documented as of this encounter Visit Diagnoses Not on filedocumented in this encounter
--- OUTSIDE RECORDS SUMMARY | 2025-03-03 10:26 | XMS_ITS | Encounter Summary ---
Author Organization [employer] ([place], [place], [place], [place], [place]) Address [address] [place] [address] Care Team Providers Care Clinical Trial Assistant Name Role Phone Unavailable Primary Care Provider Unavailabl e Encounter Details Date Type Department Care Team (Late st Contact Info) Description 04/17/2018 Transcribed Document [facility] [place] [facility] [place] [address] ProviderMg MD [facility] [place] [address] Social History Tobacco Use Types Packs/Day Years Used Date Smoking Tobacco: Never Assessed Sex and Gender Information Value Date Recorded Sex Assigned at Not on file Legal Sex Male 1:09 PM CDT Gender Identity Not on file Sexual Orientation Not on file documented as of this encounter Miscellaneous Notes * Cerner Conversion Note - Mg ProviderMD - 04/17/2018 1:43 PM GLASSWARE DEFECT REPAIRER Care Management Assessment/Plan Entered On: 04/17/2018 13:45 EST Performed On: 04/17/2018 13:43 EST by Breann Ordaz, RN Care Management Note Anticipated Discharge Date : 04/17/2018 21:00 EST Care Management Note : Per provider notes, patient scheduled for a DCCV today 04/17/18. [place] to stop all alcohol use. Thyroid work [...] Disposition Note-CM Discharge To Care Management : Home/Residential/Longterm or Self Care -01 Breann Ordaz RN - 04/17/2018 13:43 EST Electronically signed by Jackie [facility] Conversion Automatic Buffing Wheel Former Cerner at 06/19/2022 11:09 PM CDT documented in this encounter Plan of Treatment Not on file documented as of this encounter Visit Diagnoses Not on filedocumented in this encounter
--- OUTSIDE RECORDS SUMMARY | 2025-03-03 10:26 | XMS_ITS | Encounter Summary ---
Author Organization [facility] ([place], [place], [place], [place], [place]) Address [address] [place] [address] Care Team Providers Care Drilling Machine Operator Name Role Phone Unavailable Primary Care Provider Unavailabl e Encounter Details Date Type Department Care Team (Late st Contact Info) Description 06/25/2018 Transcribed Document [facility] Family Medicine [facility] [place] [address] ProviderMg MD [facility] [place], [place] [address] Social History Tobacco Use Types Packs/Day Years [...] Event : Report to [place] [facility] ANUSHA YATES RN - 06/25/2018 21:42 EDT documented in this encounter Plan of Treatment Not on file documented as of this encounter Visit Diagnoses Not on filedocumented in this encounter
--- OUTSIDE RECORDS SUMMARY | 2025-03-03 10:26 | XMS_ITS | Encounter Summary ---
Author Organization [employer] ([place], [place], [place], [place], [place]) Address [address] [place] [address] Care Team Providers Care Art Coordinator Name Role Phone Unavailable Primary Care Provider Stefan e Encounter Details Date Type Department Care Team (Late st Contact Info) Description 04/16/2018 Transcribed Document [facility] [place] [facility] [place] [address] ProviderMg MD [facility] [place], [place] [id number] Social History Tobacco Use Types Packs/Day Years Used Date Smoking Tobacco: Never Assessed Sex and Gender Information Value Date Recorded Sex Assigned at Not on file Legal Sex Male 1:09 PM CDT Gender Identity Not on file Sexual Orientation Not on file documented as of this encounter Miscellaneous Notes * Cerner Conversion Note - Mg ProviderMD - 04/16/2018 6:16 PM RAIL CAR WELDER Patient: JOSE PEARSON Age: 47 years Sex: [...] 5 years ago, was seen by an director of audiology, but that it spontaneously resolved thereafter and [...] Refill(s) fluticasone 50 mcg/inh nasal spray: 1 [place], Nostrils Both, Daily, 0 Refill(s) montelukast 10 mg oral tablet: 1 Tab, Oral, Daily, 0 Refill(s) pravastatin 80 mg oral tablet: 1 Tab, Oral, At Bedtime, 0 Refill(s) spironolactone: 25 mg, Oral, Daily, 0 Refill(s) Problem list: Medical angina / SNOMED CT 956611937 / Confirmed At risk for sleep apnea / IMO 58122274 / Confirmed cardiac defibulator / Confirmed interrogated at physicians office---02/22/13 pacemaker / SNOMED CT 8899946295 / Confirmed stroke / SNOMED CT 345402189 / Confirmed he had a stroke when they found the blood clot in valve 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 / Confirmed treated with blood thinners History of obstructive sleep apnea / IMO 75078487 / Confirmed high cholesterol / SNOMED CT 00228437 / Confirmed hypertension / SNOMED CT 8724288338 / Confirmed myocardial infarction / SNOMED CT 30680060 / Confirmed sesonal allergies / Confirmed, Active [...] EST Height Source Stated Height Entry Format [place] Height/Length, MARTINIQUAIS (ft) 6 ft Height/Length MARTINIQUAIS 0 Inch CLINICALHEIGHT 182.88 cm Routine Weight Source Standing scale Routine Weight Entry Format [place] Routine Weight, Pounds 228 lb Routine Weight, [...]
--- OUTSIDE RECORDS SUMMARY | 2025-03-03 10:26 | XMS_ITS | Encounter Summary ---
Author Organization [employer] ([place], [place], [place], [place], [place]) Address [address] [place] [address] Care Team Providers Care Catering Truck Operator Name Role Phone Unavailable Primary Care Provider Unavailabl e Encounter Details Date Type Department Care Team (Late st Contact Info) Description 06/26/2018 Transcribed Document [facility] [place] [address] [place] [address] ProviderMg MD [address] [place] [address] Social History Tobacco Use Types [...] Ritchie MD - 06/26/2018 2:27 PM CDT [facility] [place] [address] JOSE PEARSON :1970 Visit Time:06/25/2018 Your [...] you need assistance finding a PCP call [phone] Follow Up with JONATNA DAVIS MD-CAR When Within 2 to 4 weeks Comments Please call to make a 2-4 week follow-up appointment. Where: [address] [address]- Medications What How Much When Instructions Next [...] (fluticasone 50 mcg/ inh nasal spray) 1 [place](s) Nostrils Both Every Day Unchanged furosemide (Lasix [...] Follow these instructions at home: ??? Take ebkv-lpn-ukbiszo and prescription medicines only as told by [...] including vitamins, herbs, eye drops, creams, and yuzy-coe-kpffbjj medicines. ??? Any problems you or family [...] 08/10/2010 Document Revised: 09/23/2016 Document Reviewed: 08/29/2016 [employer] Interactive Patient Education ?? 2017 [employer]. Emergency Awareness and Preventative Care STROKE is [...] Assistance with quitting is available by contacting 0-328-QBAJ-NOW. This is a free resource providing counseling, [...] Be sure to sign up for the [facility] patient portal, which gives you 26/09 access to your medical information ??? including these discharge instructions ??? using your computer, smartphone, or tablet. Just go to [email or web address] to get started. Questions? Call . Test [...] range between ( 0.0 and 7.0 ) [place] #: 1.01 K/uL -- Normal range between ( 0.16 and 1.00 ) Eos #: 0.29 x10(3)/uL -- Normal range between ( 0.00 and 0.80 ) [place] %: 12.1 % -- Normal range between [...] was given the opportunity to ask questions. Patient/Caddy Name: Patient/Caddy Signature: Relationship to Patient: Clinician/Hospital Caddy Signature: Date: documented in this encounter Plan of Treatment Not on file documented as of this encounter Visit Diagnoses Not on filedocumented in this encounter
--- OUTSIDE RECORDS SUMMARY | 2025-03-03 10:26 | XMS_ITS | Encounter Summary ---
Author Organization [employer] ([place], [place], [place], [place], [place]) Address [address] [place] [address] Care Team Providers Care Armor Reconnaissance Specialist Name Role Phone Unavailable Primary Care Provider Unavailabl e Encounter Details Date Type Department Care Team (Late st Contact Info) Description 04/15/2018 Transcribed Document [facility] [place] Medicine [facility] [place] [address] ProviderMg [place] [address] Social History Tobacco Use Types Packs/Day Years Used Date Smoking Tobacco: Never Assessed Sex and Gender Information Value Date Recorded Sex Assigned at Not on file Legal Sex Male 1:09 PM CDT Gender Identity Not on file Sexual Orientation Not on file documented as of this encounter Miscellaneous Notes * Cerner Conversion Note - Historical ProviderMD - 04/15/2018 5:00 AM CANE FURNITURE MAKER Height and Weight, Routine Entered On: 04/16/2018 6:59 EST Performed On: 04/15/2018 5:00 EST by Josue Roa Patient Back End Developer Height and Weight, Routine Routine Weight Source : Standing scale Routine Weight Entry Format : [place] Routine Weight, Pounds : 228 lb Routine Weight, Ounces : 6 oz Routine Weight Calculation : 103.81 kg Height Source : Stated Height Entry Format : [place] Height, Feet : 6 ft Height, Inches : 0 Inch Clinical Height : 182.88 cm Body Surface Area (BSA), Routine : 2.26 m2 Body Mass Index (BMI), Routine : 31.04 kg/m2 Josue Roa Patient Back End Developer - 04/16/2018 6:59 EST documented in this encounter Plan of Treatment Not on file documented as of this encounter Visit Diagnoses Not on filedocumented in this encounter
--- OUTSIDE RECORDS SUMMARY | 2025-03-03 10:26 | XMS_ITS | Encounter Summary ---
Author Organization [employer] ([place], [place], [place], [place], [place]) Address [address] [place] [address] Care Team Providers Care Lift Slab Operator Name Role Phone Unavailable Primary Care Provider Unavailabl e Encounter Details Date Type Department Care Team (Late st Contact Info) Description 06/26/2018 Transcribed Document [facility] Radiology [address] [place] [address] Judy Perry MD [facility] [address] [address] Social History Tobacco Use Types [...] is a 48 yo male admitted to [facility] per Dr. Davis for a cardiac [...] data below *Scribed by [facility] Status Allergies: Allergic Reactions (Selected) No Known [...] 50 mcg/inh nasal spray: 50 mcg, 1 [place], Nostrils Both, Daily hydrALAZINE: 10 mg, IV [...] Refill(s) fluticasone 50 mcg/inh nasal spray: 1 [place], Nostrils Both, Daily, 0 Refill(s) montelukast 10 [...] fluticasone 0.05% nasal spray 50 mcg 1 [place], Nostrils Both, Daily furosemide 40 mg tab [...] Problem list: Medical angina / SNOMED CT 592020895 / Confirmed At risk for sleep apnea / IMO 28430288 / Confirmed cardiac defibulator / Confirmed interrogated at physicians office---02/22/13 pacemaker / SNOMED CT 4050121051 / Confirmed stroke / SNOMED CT 339169313 / Confirmed he had a stroke when they found the blood clot in valve History of obstructive sleep apnea / IMO 17851847 / Confirmed high cholesterol / SNOMED CT 06861382 / Confirmed hypertension / SNOMED CT 5246123726 / Confirmed myocardial infarction / SNOMED CT 46018361 / Confirmed sesonal allergies / Confirmed Resolved: [...]
--- OUTSIDE RECORDS SUMMARY | 2025-03-03 10:26 | XMS_ITS | Encounter Summary ---
Author Organization [employer] ([place], [place], [place], [place], [place]) Address [address] [place] [address] Care Team Providers Care Accordion Tuner Name Role Phone Unavailable Primary Care Provider Unavailabl e Encounter Details Date Type Department Care Team (Late st Contact Info) Description 04/16/2018 Transcribed Document [facility] [place] [facility] [place] [address] ProviderMg [place] [facility] [address] Social History Tobacco Use Types Packs/Day Years Used Date Smoking Tobacco: Never Assessed Sex and Gender Information Value Date Recorded Sex Assigned at Not on file Legal Sex Male 1:09 PM CDT Gender Identity Not on file Sexual Orientation Not on file documented as of this encounter Miscellaneous Notes * Cerner Conversion Note - Historical ProviderMD - 04/16/2018 9:46 AM STEEL HEATER Therapy Screen, OT Entered On: 04/16/2018 11:07 [...]
--- OUTSIDE RECORDS SUMMARY | 2025-03-03 10:26 | XMS_ITS | Encounter Summary ---
Author Organization [employer] ([place], [place], [place], [place], [place]) Address [address] [place] [address] Care Team Providers Care Director Of Sales Marketing Name Role Phone Unavailable Primary Care Provider Unavailabl e Encounter Details Date Type Department Care Team (Late st Contact Info) Description 04/19/2018 Transcribed Document [facility] [place] Family Medicine [facility] [place] [address] ProviderMg MD [facility] [place], [place] [address] Social History Tobacco Use Types Packs/Day Years Used Date Smoking Tobacco: Never Assessed Sex and Gender Information Value Date Recorded Sex Assigned at Not on file Legal Sex Male 1:09 PM CDT Gender Identity Not on file Sexual Orientation Not on file documented as of this encounter Miscellaneous Notes * Cerner Conversion Note - Historical ProviderMD - 04/19/2018 2:00 AM POLY OPERATOR Cement Fittings Maker Details Entered On: 04/19/2018 6:22 EST Performed [...]
--- OUTSIDE RECORDS SUMMARY | 2025-03-03 10:26 | XMS_ITS | Encounter Summary ---
Author Organization [employer] ([place], [place], [place], [place], [place]) Address [address] [place] [address] Care Team Providers Care Reservoir Engineering Advisor Name Role Phone Unavailable Primary Care Provider Unavailabl e Encounter Details Date Type Department Care Team (Late st Contact Info) Description 04/15/2018 Transcribed Document [facility] [place] [facility] [place] [address] ProviderMg MD [facility] [place] [address] Social History Tobacco Use Types Packs/Day Years Used Date Smoking Tobacco: Never Assessed Sex and Gender Information Value Date Recorded Sex Assigned at Not on file Legal Sex Male 1:09 PM CDT Gender Identity Not on file Sexual Orientation Not on file documented as of this encounter Miscellaneous Notes * Cerner Conversion Note - Historical ProviderMD - 04/15/2018 2:00 AM PROJECT ENGINEERING DIRECTOR ED Discharge Entered On: 04/15/2018 2:00 EST Performed On: 04/15/2018 2:00 EST by Zora Renteria shape hand Process Patient Disposition : Admit/Observe Personal Belongings [...] 04/15/2018 2:00 EST Electronically signed by Jackie [facility] Conversion Manager Consumer Cerner at 06/19/2022 10:53 PM CDT documented in this encounter Plan of Treatment Not on file documented as of this encounter Visit Diagnoses Not on filedocumented in this encounter
--- OUTSIDE RECORDS SUMMARY | 2025-03-03 10:26 | XMS_ITS | Encounter Summary ---
Author Organization [employer] ([place], [place], [place], [place], [place]) Address [address] [place] [address] Care Team Providers Care Setup Operator Name Role Phone Unavailable Primary Care Provider Unavailabl e Encounter Details Date Type Department Care Team (Late st Contact Info) Description 04/24/2018 Transcribed Document [facility] [place] [facility] [place] [address] ProviderMg [place] [facility] [address] Social History Tobacco Use Types Packs/Day Years Used Date Smoking Tobacco: Never Assessed Sex and Gender Information Value Date Recorded Sex Assigned at Not on file Legal Sex Male 1:09 PM CDT Gender Identity Not on file Sexual Orientation Not on file documented as of this encounter Miscellaneous Notes * Cerner Conversion Note - Mg Ritchie MD - 04/24/2018 10:35 AM HARDWARE DESIGN ENGINEER Patient: JOSE PEARSON Age: 47 years [...] Refill(s) fluticasone 50 mcg/inh nasal spray: 1 [place], Nostrils Both, Daily, 0 Refill(s) montelukast 10 [...] Bedtime fluticasone 50 mcg/inh nasal spray 1 [place], Nostrils Both, Daily Lasix 40 mg oral [...] Problem list: Medical angina / SNOMED CT 930141986 / Confirmed At risk for sleep apnea / IMO 03201078 / Confirmed cardiac defibulator / Confirmed interrogated at physicians office---02/22/13 pacemaker / SNOMED CT 8511588268 / Confirmed stroke / SNOMED CT 074566417 / Confirmed he had a stroke when they found the blood clot in valve 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 / Confirmed treated with blood thinners History of obstructive sleep apnea / IMO 02089600 / Confirmed high cholesterol / SNOMED CT 69235785 / Confirmed hypertension / SNOMED CT 8507711417 / Confirmed myocardial infarction / SNOMED CT 48070389 / Confirmed sesonal allergies / Confirmed, Active [...] Gastrointestinal: Normal bowel sounds. Integumentary: Warm, Dry, [place]. Results Review General results HYROID ULTRASOUND HISTORY: [...]
--- OUTSIDE RECORDS SUMMARY | 2025-03-03 10:26 | XMS_ITS | Encounter Summary ---
Author Organization [employer] ([place], [place], [place], [place], [place]) Address [address] [place] [address] Care Team Providers Care Talent Development Specialist Name Role Phone Unavailable Primary Care Provider Unavailabl e Encounter Details Date Type Department Care Team (Late st Contact Info) Description 05/28/2018 Transcribed Document [facility] [place] [facility] [place] [address] ProviderMg MD [facility] [place] [address] Social History Tobacco Use Types [...] Source : Stated Height Entry Format : [place] Height, Feet : 0 ft(Converted to: 0 cm, 0 Inch) Height, Inches : 72 Inch(Converted to: 6 ft 0 Inch, 182.88 cm) Clinical Height : 182.88 cm Weight Source : Standing scale Weight Entry Format : [place] Clinical Dosing Weight : 109.09 kg Weight, Pounds : 240 lb Body Surface Area (BSA) : 2.3 m2 Body Mass Index : 32.6 kg/m2 (HI) [place] Body Weight : 77 kg [place] [...] 05/28/2018 10:25 EDT General Info Support Person/Patient Property Manager : Yes Support Person/Pt Rep Name : Deidre Pearson-- Support Person/Pt Rep Contact Information : [phone] Want Family/Rep/Phys Notified of Admit : No Emergency Contact #1 : Deidre- [phone] Emergency Contact #1 Phone Number : - Emergency Contact #1 Relationship : - Emergency Contact #2 : -- Emergency Contact #2 Phone Number : - Emergency Contact #2 Relationship : - Primary Language : Senegalese Preferred Communication Mode : Verbal Communication Barrier [...] Scale Risk Level : 0-24 Low Risk [place] Fall Interventions : Wheels locked BRITTON OSBORNE [...]
--- OUTSIDE RECORDS SUMMARY | 2025-03-03 10:26 | XMS_ITS | Encounter Summary ---
Author Organization [employer] ([place], [place], [place], [place], [place]) Address [address] [place] [address] Care Team Providers Care Ornamental Plasterer Helper Name Role Phone Unavailable Primary Care Provider Unavailabl e Encounter Details Date Type Department Care Team (Late st Contact Info) Description 04/19/2018 Transcribed Document [facility] [place] [address] [place] [address] ProviderMg MD [facility] [place] [address] Social History Tobacco Use Types Packs/Day Years Used Date Smoking Tobacco: Never Assessed Sex and Gender Information Value Date Recorded Sex Assigned at Not on file Legal Sex Male 1:09 PM CDT Gender Identity Not on file Sexual Orientation Not on file documented as of this encounter Miscellaneous Notes * Cerner Conversion Note - Historical ProviderMD - 04/19/2018 11:42 AM FUDGER Spiritual Care Short Form Entered On: 04/19/2018 [...]
--- OUTSIDE RECORDS SUMMARY | 2025-03-03 10:26 | XMS_ITS | Encounter Summary ---
Author Organization [employer] [facility] ([place], [place], [place], [place], [place]) Address [address] [place] [address] Care Team Providers Care Business Relationship Manager Name Role Phone Unavailable Primary Care Provider Unavailabl e Encounter Details Date Type Department Care Team (Late st Contact Info) Description 04/14/2018 Transcribed Document [facility] [place] [facility] [place] [address] ProviderMg [place] [facility] [address] Social History Tobacco Use Types Packs/Day Years Used Date Smoking Tobacco: Never Assessed Sex and Gender Information Value Date Recorded Sex Assigned at Not on file Legal Sex Male 1:09 PM CDT Gender Identity Not on file Sexual Orientation Not on file documented as of this encounter Miscellaneous Notes * Cerner Conversion Note - Mg Ritchie MD - 04/14/2018 7:30 PM LUNCH COOK Patient: JOSE PEARSON Age: 47 years Sex: Male : 1970 Associated Diagnoses: Syncope; Cardiac rhythm disturbance; Hypotension; Scalp contusion Author: TIARA VANCE MD Basic Information Time seen: Date & time 04/14/2018 19:30:00, Voice recognition / physician office assistant technology used for some documentation in this [...] Refill(s) fluticasone 50 mcg/inh nasal spray: 1 [place], Nostrils Both, Daily, 0 Refill(s) montelukast 10 [...] EST Height Source Stated Height Entry Format Massey Height/Length, AMERICAN (ft) 6 ft Height/Length AMERICAN 0 Inch CLINICALHEIGHT 182.88 cm [place] Body Weight 76.59 kg Weight Source, ED Standing scale Weight Entry Format Massey Weight Algerian lb 229 lb CLINICALWEIGHT 104.09 kg Body [...] ED Adult Triage: ED Clinical Reconciliation: ED poison information specialist: Normal Saline Bolus: 1,000 mL, 100 mL/Hr, [...] % 24.0 % Lymph # 1.45 K/uL Mcclain % 19.4 % HI Mcclain # 1.17 K/uL HI Eos % 2.0 % Eos # 0.12 K/uL Baso % 0.7 % Baso # 0.04 K/uL Slide Review No IG# 0 x10(3)/uL IG% 0 % PT 14.3 Second(s) HI INR 1.4 HI PTT 33.3 Second(s) HI . Chest X-Ray: Time reported 04/14/2018 21:02:00, no acute disease process, interpretation by Emergency Physician. Radiology results: Radiology Results (Last 48 hours) [id number] -- 04/14/2018 19:00 CT Head WO (04/14/2018 [...] blood pressure), Interventions hemodynamic management, Case review biomedical service engineer, Alternate history family. Performed by: self. Impression [...]
--- OUTSIDE RECORDS SUMMARY | 2025-03-03 10:26 | XMS_ITS | Encounter Summary ---
Author Organization [employer] ([place], [place], [place], [place], [place]) Address [address] [place] [address] Care Team Providers Care Metal Hanger Name Role Phone Unavailable Primary Care Provider Unavailabl e Encounter Details Date Type Department Care Team (Late st Contact Info) Description 04/14/2018 Transcribed Document [facility] [place] [facility] [place] [address] ProviderMg MD [facility] [place] [address] Social History Tobacco Use Types Packs/Day Years Used Date Smoking Tobacco: Never Assessed Sex and Gender Information Value Date Recorded Sex Assigned at Not on file Legal Sex Male 1:09 PM CDT Gender Identity Not on file Sexual Orientation Not on file documented as of this encounter Miscellaneous Notes * Cerner Conversion Note - Mg ProviderMD - 04/14/2018 7:00 PM TRAIL CONSTRUCTION WORKER ED Assessment Entered On: 04/14/2018 19:37 [...] Communication Barrier : None Primary Language : Thai Any Spiritual/Cultural Needs or Requests : No [...] Rhythm : Regular Nail Bed Color : [place] Chest Pain : Yes Zora Renteria RN [...]
--- OUTSIDE RECORDS SUMMARY | 2025-03-03 10:26 | XMS_ITS | Encounter Summary ---
Author Organization [employer] ([place], [place], [place], [place], [place]) Address [address] [place] [address] Care Team Providers Care Clinical Review Specialist Name Role Phone Unavailable Primary Care Provider Unavailabl e Encounter Details Date Type Department Care Team (Late st Contact Info) Description 05/28/2018 Transcribed Document [facility] [place] Family Medicine [address] [place] [address] ProviderMg MD [facility] [place] [address] Social History Tobacco Use Types Packs/Day Years [...]
--- OUTSIDE RECORDS SUMMARY | 2025-03-03 10:26 | XMS_ITS | Encounter Summary ---
Author Organization [employer] ([place], [place], [place], [place], [place]) Address [address] [place] [address] Care Team Providers Care Animal Care Attendant Name Role Phone Unavailable Primary Care Provider Unavailabl e Encounter Details Date Type Department Care Team (Late st Contact Info) Description 04/16/2018 Transcribed Document [facility] [place] [facility] [place] [address] ProviderMg MD [facility] [place] [address] Social History Tobacco Use Types Packs/Day Years Used Date Smoking Tobacco: Never Assessed Sex and Gender Information Value Date Recorded Sex Assigned at Not on file Legal Sex Male 1:09 PM CDT Gender Identity Not on file Sexual Orientation Not on file documented as of this encounter Miscellaneous Notes * Cerner Conversion Note - Mg ProviderMD - 04/16/2018 11:08 AM YEAST DISTILLER Patient: JOSE PEARSON Age: 47 years Sex: [...] Refill(s) fluticasone 50 mcg/inh nasal spray: 1 [place], Nostrils Both, Daily, 0 Refill(s) montelukast 10 [...]
--- OUTSIDE RECORDS SUMMARY | 2025-03-03 10:26 | XMS_ITS | Encounter Summary ---
Author Organization [employer] ([place], [place], [place], [place], [place]) Address [address] [place] [address] Care Team Providers Care Fleet Salesperson Name Role Phone Unavailable Primary Care Provider Unavailabl e Encounter Details Date Type Department Care Team (Late st Contact Info) Description 04/20/2018 Transcribed Document [facility] [place] [facility] [place] [address] ProviderMg MD [facility] [place] [address] Social History Tobacco Use Types Packs/Day Years Used Date Smoking Tobacco: Never Assessed Sex and Gender Information Value Date Recorded Sex Assigned at Not on file Legal Sex Male 1:09 PM CDT Gender Identity Not on file Sexual Orientation Not on file documented as of this encounter Miscellaneous Notes * Cerner Conversion Note - Historical ProviderMD - 04/20/2018 5:00 AM CHIEF HUMAN RESOURCES OFFICER Chart Check - Review Order Profile Entered On: 04/20/2018 5:45 EST Performed On: 04/20/2018 5:00 EST by JB GUTIERREZ RN Chart Check Chart Reviewed Date and Time : 04/20/2018 5:45 EST Powerplans Initiated/Discontinued as Appropriate : Yes All Active Orders Reviewed : Yes JB GUTIERREZ RN - 04/20/2018 5:45 EST Electronically signed by [facility] Conversion Office 365 Consultant Cerner at 06/19/2022 11:09 PM CDT documented in this encounter Plan of Treatment Not on file documented as of this encounter Visit Diagnoses Not on filedocumented in this encounter
--- OUTSIDE RECORDS SUMMARY | 2025-03-03 10:26 | XMS_ITS | Encounter Summary ---
Author Organization [employer] ([place], [place], [place], [place], [place]) Address [address] [place] [address] Care Team Providers Care Power Transformer Assembler Name Role Phone Unavailable Primary Care Provider Unavailabl e Encounter Details Date Type Department Care Team (Late st Contact Info) Description 05/28/2018 Transcribed Document [facility] [place] Medicine [facility] [place] [address] ProviderMg MD [facility] [place] [address] Social History Tobacco Use Types [...] Document Reviewed: 03/25/2011 ExitCare? Patient Information ?2013 The Social [employer]. Pharmacology Moderate Conscious Sedation, Adult, Care After [...] you are awake and alert. ??? Take pitc-ukw-lrvwzoe and prescription medicines only as told by [...] 12/11/2013 Document Revised: 07/25/2016 Document Reviewed: 06/11/2016 [employer] Interactive Patient Education ? 2017 [employer] Procedures Cardiac Ablation Cardiac ablation is a procedure to stop some heart tissue from causing problems. The heart has many electrical connections. Sometimes these connections cause the heart to beat very fast or irregularly. Removing some of the problem areas can improve heart rhythm or make it normal. Ablation is done for people who: ??? Have Erszo-Bdmrytbhr-Lpzgq syndrome. ??? Have other fast heart rhythms [...] 10/23/2013 Document Revised: 07/28/2016 Document Reviewed: 07/18/2013 [employer] Interactive Patient Education ? 2017 [employer] documented in this encounter Plan of Treatment Not on file documented as of this encounter Visit Diagnoses Not on filedocumented in this encounter
--- OUTSIDE RECORDS SUMMARY | 2025-03-03 10:26 | XMS_ITS | Encounter Summary ---
Author Organization [employer] ([place], [place], [place], [place], [place]) Address [address] [place] [address] Care Team Providers Care Instructor Psychiatric Aide Name Role Phone Unavailable Primary Care Provider Unavailabl e Encounter Details Date Type Department Care Team (Late st Contact Info) Description 06/26/2018 Transcribed Document [facility] [place] [facility] [place] [address] ProviderMg MD [address] [place] [address] Social History Tobacco Use Types [...] Follow these instructions at home: ??? Take ydjq-tag-tvnpojs and prescription medicines only as told by [...] including vitamins, herbs, eye drops, creams, and rrpn-dtr-vzckxkn medicines. ??? Any problems you or family [...] 08/10/2010 Document Revised: 09/23/2016 Document Reviewed: 08/29/2016 ElseChatalog Interactive Patient Education ? 2017 [employer] documented in this encounter Plan of Treatment Not on file documented as of this encounter Visit Diagnoses Not on filedocumented in this encounter
--- OUTSIDE RECORDS SUMMARY | 2025-03-03 10:26 | XMS_ITS | Encounter Summary ---
Author Organization [employer] ([place], [place], [place], [place], [place]) Address [address] [place] [address] Care Team Providers Care Account Resolution Analyst Name Role Phone Unavailable Primary Care Provider Unavailabl e Encounter Details Date Type Department Care Team (Late st Contact Info) Description 06/25/2018 Transcribed Document [facility] [place] [facility] [place] [address] ProviderMg MD [facility] [place] [address] Social History Tobacco Use Types [...] means of the modified Seldinger technique. A 5-British sheath was placed in the right femoral artery and an 8-British sheath in the right femoral vein. The [...] obtaining an adequate His cloud using the [facility] 3D mapping system, the ablation was commenced, [...]
--- OUTSIDE RECORDS SUMMARY | 2025-03-03 10:26 | XMS_ITS | Encounter Summary ---
Author Organization [employer] ([place], [place], [place], [place], [place]) Address [address] [place] [address] Care Team Providers Care Chemical Process Equipment Operator Name Role Phone Unavailable Primary Care Provider Unavailabl e Encounter Details Date Type Department Care Team (Late st Contact Info) Description 04/14/2018 Transcribed Document [facility] [place] [facility] [place] [address] ProviderMg MD [facility] [place] [address] Social History Tobacco Use Types Packs/Day Years Used Date Smoking Tobacco: Never Assessed Sex and Gender Information Value Date Recorded Sex Assigned at Not on file Legal Sex Male 1:09 PM CDT Gender Identity Not on file Sexual Orientation Not on file documented as of this encounter Miscellaneous Notes * Cerner Conversion Note - Mg ProviderMD - 04/14/2018 7:00 PM SUPERVISOR PIPELINE ED Triage Entered On: 04/14/2018 19:08 EST Performed On: 04/14/2018 19:04 EST by CHONG LA ED Triage Across the Room Triage Date/Time : 04/14/2018 19:04 EST Chief Complaint : Pacemaker fired yesterday, states chest feels funny . reports + LOC x 30 sec. CHONG LA - 04/14/2018 19:04 EST DCP GENERIC CODE Tracking Acuity : 2 - Emergent Tracking Group : [facility] CHONG LA - 04/14/2018 19:04 EST Mode [...] 04/14/2018 19:08:38 EST) Problems(Active) stroke (SNOMED CT :053848402 ) Name of Problem: stroke ; Onset Date: 04/02/2013 ; Recorder: FLAQUITA MARTIN RN; Confirmation: Confirmed ; Classification: Medical ; Code: [id number] ; Contributor System: Africasana ; Last Updated: 11/24/2016 11:59 EDT ; Life Cycle Date: 04/02/2013 ; Life Cycle Status: Active ; Vocabulary: SNOMED CT ; Comments: 04/02/2013 8:34 - FLAQUITA MARTIN RN he had a stroke when they found the blood clot in valve angina (SNOMED CT :289213379 ) Name of Problem: angina ; Recorder: FLAQUITA MARTIN RN; Confirmation: Confirmed ; Classification: Medical ; Code: 444962759 ; Contributor System: PrismaStarChart ; Last Updated: 08/20/2013 11:12 EDT ; Life Cycle Date: 04/02/2013 ; Life Cycle Status: Active ; Vocabulary: SNOMED CT Asthma (SNOMED CT :113842159 ) Name of Problem: Asthma ; Recorder: Kailey Castorena RN; Confirmation: Confirmed ; Classification: Patient Stated ; Code: 616331188 ; Contributor System: PowerChart ; Last Updated: 03/23/2017 9:49 EST ; Life Cycle Date: 03/23/2017 ; Life Cycle Status: Active ; Vocabulary: SNOMED CT At risk for sleep apnea (IMO :08416225 ) Name of Problem: At risk for sleep apnea ; Recorder: SYSTEM, SYSTEM; Confirmation: Confirmed ; Classification: Medical ; Code: 60278792 ; Last Updated: 03/28/2018 13:21 EST ; [...] interrogated at physicians office---02/22/13 Cardiomyopathy (SNOMED CT :948000524 ) Name of Problem: Cardiomyopathy ; Recorder: Kailey Castorena RN; Confirmation: Confirmed ; Classification: Patient Stated ; Code: 154485190 ; Contributor System: PowerChart ; Last Updated: [...] GERD - Gastro-esophageal reflux disease (SNOMED CT :1616980692 ) Name of Problem: GERD - Gastro-esophageal reflux disease ; Recorder: Kailey Castorena RN; Confirmation: Confirmed ; Classification: Patient Stated ; Code: 9397904978 ; Contributor System: PowerChart ; Last Updated: 03/23/2017 9:49 EST ; Life Cycle Date: 03/23/2017 ; Life Cycle Status: Active ; Vocabulary: SNOMED CT H/O: CVA (SNOMED CT :394574623 ) Name of Problem: H/O: CVA ; Recorder: Kailey Castorena RN; Confirmation: Confirmed ; Classification: Patient Stated ; Code: 672579657 ; Contributor System: PowerChart ; Last Updated: 03/23/2017 9:48 EST ; Life Cycle Date: 03/23/2017 ; Life Cycle Status: Active ; Vocabulary: SNOMED CT Heart failure (SNOMED CT :791024824 ) Name of Problem: Heart failure ; Recorder: Kailey Castorena RN; Confirmation: Confirmed ; Classification: Patient Stated ; Code: 473229347 ; Contributor System: PowerChart ; Last Updated: 03/23/2017 9:48 EST ; Life Cycle Date: 03/23/2017 ; Life Cycle Status: Active ; Vocabulary: SNOMED CT high cholesterol (SNOMED CT :05914135 ) Name of Problem: high cholesterol ; Recorder: FLAQUITA MARTIN RN; Confirmation: Confirmed ; Classification: Medical ; Code: 43153999 ; Contributor System: PowerChart ; Last Updated: 08/19/2013 14:21 EDT ; Life Cycle Date: 04/02/2013 ; Life Cycle Status: Active ; Vocabulary: SNOMED CT Hyperlipidemia (SNOMED CT :50962381 ) Name of Problem: Hyperlipidemia ; Recorder: Kailey Castorena RN; Confirmation: Confirmed ; Classification: Patient Stated ; Code: 24294582 ; Contributor System: PowerChart ; Last Updated: 03/23/2017 9:48 EST ; Life Cycle Date: 03/23/2017 ; Life Cycle Status: Active ; Vocabulary: SNOMED CT hypertension (SNOMED CT :2373050771 ) Name of Problem: hypertension ; Recorder: FLAQUITA MARTIN RN; Confirmation: Confirmed ; Classification: Medical ; Code: 2123913153 ; Contributor System: PowerChart ; Last Updated: 08/19/2013 14:20 EDT ; Life Cycle Date: 04/02/2013 ; Life Cycle Status: Active ; Vocabulary: SNOMED CT myocardial infarction (SNOMED CT :65915169 ) Name of Problem: myocardial infarction ; Onset Date: 04/02/2007 ; Recorder: FLAQUITA MARTIN RN; Confirmation: Confirmed ; Classification: Medical ; Code: 28072884 ; Contributor System: PowerChart ; Last Updated: 08/19/2013 14:57 EDT ; Life Cycle Date: 04/02/2013 ; Life Cycle Status: Active ; Vocabulary: SNOMED CT pacemaker (SNOMED CT :3703256211 ) Name of Problem: pacemaker ; Recorder: FLAQUITA MARTIN RN; Confirmation: Confirmed ; Classification: Medical ; Code: 7239171036 ; Contributor System: Africasana ; Last Updated: 08/20/2013 16:01 EDT ; [...] PNED ; Probability: 0 ; Diagnosis Code: [id number] ED Height and Weight Height Source : Stated Height Entry Format : [place] Height, Feet : 6 ft(Converted to: 183 cm, 72 Inch) Height, Inches : 0 Inch(Converted to: 0 ft 0 Inch, 0.00 cm) Clinical Height : 182.88 cm Weight Source, ED : Standing scale Weight Entry Format : [place] Weight, Pounds : 229 lb Clinical Dosing Weight : 104.09 kg Body Surface Area (BSA) : 2.26 m2 Body Mass Index : 31.1 kg/m2 (HI) [place] Body Weight (IBW) : 76.59 kg CHONG LA - 04/14/2018 19:04 EST Electronically signed by Morales Mejia Conversion Industrial Technology Education Teacher Cerner at 06/19/2022 10:57 PM CDT documented in this encounter Plan of Treatment Not on file documented as of this encounter Visit Diagnoses Not on filedocumented in this encounter
--- OUTSIDE RECORDS SUMMARY | 2025-03-03 10:26 | XMS_ITS | Encounter Summary ---
Author Organization [employer] ([place], [place], [place], [place], [place]) Address [address] [place] [address] Care Team Providers Care Mattress Filler Name Role Phone Unavailable Primary Care Provider Unavailabl e Encounter Details Date Type Department Care Team (Late st Contact Info) Description 04/20/2018 Transcribed Document [facility] [place] [facility] [place] [address] ProviderMg MD [address] [place] [address] Social History Tobacco Use Types Packs/Day Years Used Date Smoking Tobacco: Never Assessed Sex and Gender Information Value Date Recorded Sex Assigned at Not on file Legal Sex Male 1:09 PM CDT Gender Identity Not on file Sexual Orientation Not on file documented as of this encounter Miscellaneous Notes * Cerner Conversion Note - Mg ProviderMD - 04/20/2018 1:08 PM WAITER/WAITRESS [place] [address] [facility] [place] [address] Patient Copy Patient Information: Name: JOSE PEARSON Current Date: 04/20/2018 13:08:13 : 1970 Patient [address]: [address] [place] [id number] Patient Attending Physician: Primary Care Provider: HUMA YARBROUGH (REF)MD-INT Primary Care Provider Discharge Diagnosis: Cardiac rhythm disturbance; Hypotension; Scalp contusion; Syncope Weight on Admission: 229 lb, 0 oz Weight at Discharge: 229 lb, 7 oz Comment: Follow-up Instructions: With: Address: When: JONATAN ISABEL [address] [place] [address] [address] [place] [address] Business (1) In 17 days 05/07/2018 Comments: Office to call with appoint/instructions or you may need to call if you have not heard from them With: Address: When: KIM EDOUARD 1:45 PM Comments: follow for thyroid as we discussed. you have the appropriate address With: Address: When: [address] [place], [place] [id number] Business (1) Within 2 weeks Discharge Instructions: Diet after Discharge: Heart healthy diet Activity after Discharge: As tolerated Showering/Bathing: May shower Immunizations Documented During Stay: No Immunizations Found Heart Failure Discharge Instructions (if any): Stroke Related Discharge Instructions (if any): Warfarin Related Discharge Instructions (if any): Final Medication List: [facility] [address] [place], [place] [id number], [phone] dofetilide (Tikosyn 250 mcg oral capsule) 2 [...] nasal (fluticasone 50 mcg/inh nasal spray) 1 [place](s) Nostrils Both Every Day. furosemide (Lasix 40 [...] quickly after you eat. Medicines ??? Take liho-ufy-gwvlrvp and prescription medicines only as told by [...] 05/17/2010 Document Revised: 11/08/2016 Document Reviewed: 11/08/2016 ElsePredikt Interactive Patient Education ? 2017 Elsevier Inc. [...] This can help with dizziness. ??? Take cfbg-ijq-vvjtrba and prescription medicines only as told by [...] right away. Call your local emergency services (611 in the [place] Do not drive yourself [...] may report side effects to FDA at 7-418-JTA-4829. What other drugs will affect dofetilide? Other drugs may interact with dofetilide, including prescription and djdp-syv-qhaumys medicines, vitamins, and herbal products. Tell each [...] to ensure that the information provided by [employer]. ('Mult[employer]') is accurate, up-to-date, and complete, but no guarantee is made to that effect. Drug information contained herein may be time sensitive. [employer] information has been compiled for use by healthcare practitioners and consumers in the [place] and therefore [employer] does not warrant that uses outside of the [place] are appropriate, unless specifically indicated otherwise. [employer]'s drug information does not endorse drugs, diagnose patients or recommend therapy. blog[employer]s drug information is an informational resource designed [...] effective or appropriate for any given patient. [facility] does not assume any responsibility for any aspect of healthcare administered with the aid of information [facility] provides. The information contained herein is not intended to cover all possible uses, directions, precautions, warnings, drug interactions, allergic reactions, or adverse effects. If you have questions about the drugs you are taking, check with your doctor, nurse or pharmacist. Copyright 1048-3765 [facility] [employer]. Version: 4.01. Revision Date: 06/17/2015. CIGARETTE SMOKING: The facts are clear, cigarette smoking will shorten your life. Smoking can cause many illnesses along the way. As a healthcare provider, we recommend that you stop smoking. Assistance with quitting is available by contacting 6-040-QVOW-NOW. This is a free resource providing counseling, [...] Be sure to sign up for the [employer] patient portal, which gives you 26/09 access to your medical information ??? including these discharge instructions ??? using your computer, smartphone, or tablet. Just go to [employer] to get started. Questions? Call . [facility] would like to thank you for allowing us to assist you with your healthcare needs. ANASTASIA Rich DENNIS PAUL, (or direct sales representative) have received the above patient education materials/instructions and have verbalized understanding: Patient Signature _ Date/Time Patient Cryptologic Technician Signature (if needed) Date/Time Clinician/Hospital Cryptologic Technician Signature (if needed) Date/Time documented in this encounter Plan of Treatment Not on file documented as of this encounter Visit Diagnoses Not on filedocumented in this encounter
--- OUTSIDE RECORDS SUMMARY | 2025-03-03 10:26 | XMS_ITS | Encounter Summary ---
Author Organization [employer] ([place], [place], [place], [place], [place]) Address [address] [place] [address] Care Team Providers Care Comfort Filler Name Role Phone Unavailable Primary Care Provider Unavailabl e Encounter Details Date Type Department Care Team (Late st Contact Info) Description 06/26/2018 Transcribed Document [facility] [place] [facility] [address] ProviderMg MD [facility] [place], [place] [address] Social History Tobacco Use Types Packs/Day Years [...] EDT Electronically signed by Morales Mejia Conversion D[employer]ified Crops I Farmworker Cerner at 06/19/2022 10:49 PM CDT documented in this encounter Plan of Treatment Not on file documented as of this encounter Visit Diagnoses Not on filedocumented in this encounter
--- OUTSIDE RECORDS SUMMARY | 2025-03-03 10:27 | XMS_ITS | Encounter Summary ---
Author Organization [employer] ([place], [place], [place], [place], [place]) Address [address] [place] [address] Care Team Providers Care Folder Machine Name Role Phone Unavailable Primary Care Provider Unavailabl e Encounter Details Date Type Department Care Team (Late st Contact Info) Description 04/16/2018 Transcribed Document [facility] [place] [facility] [place] [address] ProviderMg MD [facility] [place] [address] Social History Tobacco Use Types Packs/Day Years Used Date Smoking Tobacco: Never Assessed Sex and Gender Information Value Date Recorded Sex Assigned at Not on file Legal Sex Male 1:09 PM CDT Gender Identity Not on file Sexual Orientation Not on file documented as of this encounter Miscellaneous Notes * [employer]ner Conversion Note - Historical ProviderMD - 04/16/2018 5:00 AM TERRITORY BUSINESS MANAGER Chart Check - Review Order Profile Entered On: 04/16/2018 4:17 EST Performed On: 04/16/2018 5:00 EST by Ashely Townsend Rn Chart Check Chart Reviewed Date and Time : 04/16/2018 4:17 EST All Active Orders Reviewed : Yes Ashely Townsend Rn - 04/16/2018 4:17 EST Electronically signed by Morales Mejia Conversion Profiling Machine Setup Operator Cerner at 06/19/2022 11:05 PM CDT documented in this encounter Plan of Treatment Not on file documented as of this encounter Visit Diagnoses Not on filedocumented in this encounter
--- OUTSIDE RECORDS SUMMARY | 2025-03-03 10:27 | XMS_ITS | Encounter Summary ---
Author Organization [employer] ([place], [place], [place], [place], [place]) Address [address] [place] [address] Care Team Providers Care Sponge Fisherman Name Role Phone Unavailable Primary Care Provider Unavailabl e Encounter Details Date Type Department Care Team (Late st Contact Info) Description 04/17/2018 Transcribed Document [facility] [place] [facility] [place] [address] ProviderMg MD [address] [place] [address] Social History Tobacco Use Types Packs/Day Years Used Date Smoking Tobacco: Never Assessed Sex and Gender Information Value Date Recorded Sex Assigned at Not on file Legal Sex Male 1:09 PM CDT Gender Identity Not on file Sexual Orientation Not on file documented as of this encounter Miscellaneous Notes * Cerner Conversion Note - Mg ProviderMD - 04/17/2018 6:44 PM SALES COORDINATOR [address] [place] [address] Patient Copy Patient Information: Name: JOSE PEARSON Current Date: 04/17/2018 18:44:56 : 1970 Patient Address: [address] [place] [id number] Patient Attending Physician: KATY FRIAS MD-CAR Primary [...] nasal (fluticasone 50 mcg/inh nasal spray) 1 [place](s) Nostrils Both Every Day. furosemide (Lasix 40 [...] may report side effects to FDA at 0-170-LOH-2867. What other drugs will affect dofetilide? Other drugs may interact with dofetilide, including prescription and ymln-sea-gndltpw medicines, vitamins, and herbal products. Tell each [...] to ensure that the information provided by [employer]. ('[employer]') is accurate, up-to-date, and complete, but no guarantee is made to that effect. Drug information contained herein may be time sensitive. [employer] information has been compiled for use by healthcare practitioners and consumers in the [place] and therefore [employer] does not warrant that uses outside of the [place] are appropriate, unless specifically indicated otherwise. [employer] drug information does not endorse drugs, diagnose patients or recommend therapy. [employer] drug information is an informational resource designed [...] effective or appropriate for any given patient. [employer] does not assume any responsibility for any aspect of healthcare administered with the aid of information [employer] provides. The information contained herein is not intended to cover all possible uses, directions, precautions, warnings, drug interactions, allergic reactions, or adverse effects. If you have questions about the drugs you are taking, check with your doctor, nurse or pharmacist. Copyright 2450-9320 [employer]. Version: 4.01. Revision Date: 06/17/2015. CIGARETTE SMOKING: The facts are clear, cigarette smoking will shorten your life. Smoking can cause many illnesses along the way. As a healthcare provider, we recommend that you stop smoking. Assistance with quitting is available by contacting 4-318-MZTK-NOW. This is a free resource providing counseling, [...] Be sure to sign up for the [employer] patient portal, which gives you 26/09 access to your medical information ??? including these discharge instructions ??? using your computer, smartphone, or tablet. Just go to [employer] to get started. Questions? Call . [facility] would like to thank you for allowing us to assist you with your healthcare needs. ANASTASIA Rich DENNIS PAUL, (or motor vehicle field representative) have received the above patient education materials/instructions and have verbalized understanding: Patient Signature _ Date/Time Patient Teaching Manager Signature (if needed) Date/Time Clinician/Hospital Teaching Manager Signature (if needed) Date/Time Electronically signed by Jackie, [facility] Conversion Geomorphologist Cerner at 06/19/2022 11:09 PM CDT documented in this encounter Plan of Treatment Not on file documented as of this encounter Visit Diagnoses Not on filedocumented in this encounter
--- OUTSIDE RECORDS SUMMARY | 2025-03-03 10:27 | XMS_ITS | Encounter Summary ---
Author Organization [employer] ([place], [place], [place], [place], [place]) Address [address] [place] [address] Care Team Providers Care Dust Brush Assembler Name Role Phone Unavailable Primary Care Provider Stefan e Encounter Details Date Type Department Care Team (Late st Contact Info) Description 04/18/2018 Transcribed Document [facility] [place] [facility] [place] [address] ProviderMg MD [facility] [place] [address] Social History Tobacco Use Types Packs/Day Years Used Date Smoking Tobacco: Never Assessed Sex and Gender Information Value Date Recorded Sex Assigned at Not on file Legal Sex Male 1:09 PM CDT Gender Identity Not on file Sexual Orientation Not on file documented as of this encounter Miscellaneous Notes * Cerner Conversion Note - Mg ProviderMD - 04/18/2018 11:31 AM CDA TEACHER Patient: JOSE PEARSON Age: 47 years [...] Refill(s) fluticasone 50 mcg/inh nasal spray: 1 [place], Nostrils Both, Daily, 0 Refill(s) montelukast 10 [...] Problem list: Medical angina / SNOMED CT 717404061 / Confirmed At risk for sleep apnea / IMO 83956427 / Confirmed cardiac defibulator / Confirmed interrogated at physicians office---02/22/13 pacemaker / SNOMED CT 2454964658 / Confirmed stroke / SNOMED CT 111461794 / Confirmed he had a stroke when they found the blood clot in valve 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 / Confirmed treated with blood thinners History of obstructive sleep apnea / IMO 13724448 / Confirmed high cholesterol / SNOMED CT 29507241 / Confirmed hypertension / SNOMED CT 8823861839 / Confirmed myocardial infarction / SNOMED CT 78098297 / Confirmed sesonal allergies / Confirmed, Active [...]
--- OUTSIDE RECORDS SUMMARY | 2025-03-03 10:27 | XMS_ITS | Encounter Summary ---
Author Organization [employer] ([place], [place], [place], [place], [place]) Address [address] [place] [address] Care Team Providers Care Digital Marketing Executive Name Role Phone Unavailable Primary Care Provider Unavailabl e Encounter Details Date Type Department Care Team (Late st Contact Info) Description 04/16/2018 Transcribed Document [facility] [place] Medicine [facility] [address] ProviderMg MD Count includes the [facility] [place] [address] Social History Tobacco Use Types Packs/Day Years Used Date Smoking Tobacco: Never Assessed Sex and Gender Information Value Date Recorded Sex Assigned at Not on file Legal Sex Male 1:09 PM CDT Gender Identity Not on file Sexual Orientation Not on file documented as of this encounter Miscellaneous Notes * Cerner Conversion Note - Historical ProviderMD - 04/16/2018 7:13 PM RENEWABLE ENERGY TRADER Event Note Entered On: 04/16/2018 19:14 EST Performed On: 04/16/2018 19:13 EST by CHARLA PHILLIPS RN Event Note Event Date/Time : 04/16/2018 19:13 EST Event Location : Assigned room Description of Event : Dr. Hobbs stated to stop amiodarone gtt because of blood pressure. Didn't DC order in case need to restart. CHARLA PHILLIPS, MARYCARMEN - 04/16/2018 19:13 EST Electronically signed by Jackie [facility] Conversion Alumina Refinery Operator Cerner at 06/19/2022 10:56 PM CDT documented in this encounter Plan of Treatment Not on file documented as of this encounter Visit Diagnoses Not on filedocumented in this encounter
--- OUTSIDE RECORDS SUMMARY | 2025-03-03 10:27 | XMS_ITS | Encounter Summary ---
Author Organization [employer] ([place], [place], [place], [place], [place]) Address [address] [place] [address] Care Team Providers Care Manager Of Planning Name Role Phone Unavailable Primary Care Provider Unavailabl e Encounter Details Date Type Department Care Team (Late st Contact Info) Description 04/16/2018 Transcribed Document [facility] [place] [facility] [place] [address] ProviderMg MD [facility] [place] [address] Social History Tobacco Use Types Packs/Day Years Used Date Smoking Tobacco: Never Assessed Sex and Gender Information Value Date Recorded Sex Assigned at Not on file Legal Sex Male 1:09 PM CDT Gender Identity Not on file Sexual Orientation Not on file documented as of this encounter Miscellaneous Notes * Cerner Conversion Note - Historical ProviderMD - 04/16/2018 2:00 AM NUCLEAR PLANT TECHNICAL ADVISOR Dough Mixing Machine Operator Details Entered On: 04/16/2018 1:14 EST [...]
--- OUTSIDE RECORDS SUMMARY | 2025-03-03 10:27 | XMS_ITS | Encounter Summary ---
Author Organization [employer] ([place], [place], [place], [place], [place]) Address [address] [place] [address] Care Team Providers Care Sound Effects Supervisor Name Role Phone Unavailable Primary Care Provider Unavailabl e Encounter Details Date Type Department Care Team (Late st Contact Info) Description 04/17/2018 Transcribed Document [facility] [place] [facility] [place] [address] ProviderMg MD [facility] [place], [place] [id number] Social History Tobacco Use Types Packs/Day Years Used Date Smoking Tobacco: Never Assessed Sex and Gender Information Value Date Recorded Sex Assigned at Not on file Legal Sex Male 1:09 PM CDT Gender Identity Not on file Sexual Orientation Not on file documented as of this encounter Miscellaneous Notes * Cerner Conversion Note - Mg ProviderMD - 04/17/2018 6:18 PM FORCE VARIATION EQUIPMENT TENDER Patient: JOSE PEARSON Age: 47 years [...] Refill(s) fluticasone 50 mcg/inh nasal spray: 1 [place], Nostrils Both, Daily, 0 Refill(s) montelukast 10 [...]
--- OUTSIDE RECORDS SUMMARY | 2025-03-03 10:27 | XMS_ITS | Encounter Summary ---
Author Organization [employer] ([place], [place], [place], [place], [place]) Address [address] [place] [address] Care Team Providers Care Tool Sharpener Name Role Phone Unavailable Primary Care Provider Unavailabl e Encounter Details Date Type Department Care Team (Late st Contact Info) Description 04/18/2018 Transcribed Document [facility] [place] [facility] [place] [address] ProviderMg [place] [facility] [place] [address] Social History Tobacco Use Types Packs/Day Years Used Date Smoking Tobacco: Never Assessed Sex and Gender Information Value Date Recorded Sex Assigned at Not on file Legal Sex Male 1:09 PM CDT Gender Identity Not on file Sexual Orientation Not on file documented as of this encounter Miscellaneous Notes * Cerner Conversion Note - Mg ProviderMD - 04/18/2018 10:00 AM INTAKE CLERK Care Management Assessment/Plan Entered On: 04/18/2018 10:02 EST Performed On: 04/18/2018 10:00 EST by Breann Ordaz, RN Care Management Note Anticipated Discharge Date : 04/17/2018 21:00 EST Care Management Note : CAREY spoke with Rianna process coordinator at Ángel Salazar's office, fax [phone]. Patient's requested date for start of care is in 2 weeks but content publisher as scheduling out for 2-3 months. Patient is on the cancellation list at Dr. Salazar's with a July appointment time. Information sent to above fax, appointment time placed in discharge form...arh Care Management Note Report : Breann Ordaz, RN - 04/17/18 13:45:24 Per provider notes, patient scheduled for a DCCV today 04/17/18. [place] to stop all alcohol use. Thyroid work [...] . Home plan at discharge, no needs noted...[facility] Documentation Status Complete : Yes Breann Ordaz, RN - 04/18/2018 10:00 EST Electronically signed by Jackie [facility] Conversion Concrete Tester Cerner at 06/19/2022 11:07 PM CDT documented in this encounter Plan of Treatment Not on file documented as of this encounter Visit Diagnoses Not on filedocumented in this encounter
--- OUTSIDE RECORDS SUMMARY | 2025-03-03 10:27 | XMS_ITS | Encounter Summary ---
Author Organization [employer] ([place], [place], [place], [place], [place]) Address [address] [place] [address] Care Team Providers Care Accounting Professional Name Role Phone Unavailable Primary Care Provider Unavailabl e Encounter Details Date Type Department Care Team (Late st Contact Info) Description 04/17/2018 Transcribed Document [facility] [place] [facility] [place] [address] ProviderMg MD [address] [place] [address] Social History Tobacco Use Types Packs/Day Years Used Date Smoking Tobacco: Never Assessed Sex and Gender Information Value Date Recorded Sex Assigned at Not on file Legal Sex Male 1:09 PM CDT Gender Identity Not on file Sexual Orientation Not on file documented as of this encounter Miscellaneous Notes * Cerner Conversion Note - Mg ProviderMD - 04/17/2018 8:26 AM TEST TECH PLEASE MODIFY BEFORE SIGNING CLINICAL DOCUMENTATION CLARIFICATION [...] PCM identified 04/16 [x ] BMI of_31.2_ 04/1530-Wxo-UYB-31.2 Two or More of the Following ASPEN Criteria: [ x ] Unintentional Insufficient Energy Intake 04/1642-Izbaxsuat-Sslengra reduced:</=50% needs for >/=5days [ x ] Weight Loss 04/1691-Taskgquvf-Bttoan:>2% past 1 week [ x ] Loss of Muscle Mass 04/1604-Kxdamyhjj-Zwetmmze: (suggested) some loss muscle mass [ x] Loss of Subcutaneous Fat 04/16-Nutrition - did observe moderate subcutaneous fat wasting to orbitals Present Risk Factors Results and Location in Medical Record [ x ] Change in appetite / nausea / vomiting / diarrhea 04/1671-Iwpyfhghk-xg intake <50% >/=5days [ x ] Acute illness 04/1650-Jrupcozqo-Axfmqrhpgqpxzuf [ x ] Chronic illness 04/1674-Boyuqtksr-iybbl on chronic left heart failure Present Treatments Results and Location in Medical Record [ x ] Dietary consult 04/16-MD orders-Nutrition consult [ x ] Nutritional supplements 04/16-Nutrition- RD will continue to monitor for pt to agree to oral supplements [ x ] Weights 04/1646-Idksdpubt-Aiiatdu wt 2x/wk [ x ] Medication supplements 04/14-MD orders-Magnesium sulfate IV, Potassium chloride po CDS Signature: __Markus Simms RN, MSN, CDS__ Phone #: __[phone]_ Date: _04/17/2018__ Moderate Malnutrition (in acute illness) [...] loss; moderate- severe fluid accumulation; measurably reduced branch lending manager strength Moderate Malnutrition (in chronic illness) Energy [...] mass loss; severe fluid accumulation; measurably reduced branch lending manager strength This is a permanent part of the Medical Record 04/18/2018--Progress note-Dr. Lerma-Moderate protein-calorie malnutrition Electronically signed by Jackie, [facility] Conversion State Farm Agent Cerner at 06/19/2022 10:48 PM CDT documented in this encounter Plan of Treatment Not on file documented as of this encounter Visit Diagnoses Not on filedocumented in this encounter
--- OUTSIDE RECORDS SUMMARY | 2025-03-03 10:27 | XMS_ITS | Encounter Summary ---
Author Organization [employer] ([place], [place], [place], [place], [place]) Address [address] [place] [address] Care Team Providers Care Data Warehousing Manager Name Role Phone Unavailable Primary Care Provider Unavailabl e Encounter Details Date Type Department Care Team (Late st Contact Info) Description 04/18/[address] [facility] [place] [facility] [place] [place] [address] ProviderMg MD [facility] [place] [address] Social History Tobacco Use Types Packs/Day Years Used Date Smoking Tobacco: Never Assessed Sex and Gender Information Value Date Recorded Sex Assigned at Not on file Legal Sex Male 1:09 PM CDT Gender Identity Not on file Sexual Orientation Not on file documented as of this encounter Miscellaneous Notes * Cerner Conversion Note - Historical ProviderMD - 04/18/2018 5:00 AM FISHING CAPTAIN Chart Check - Review Order Profile Entered [...]
--- OUTSIDE RECORDS SUMMARY | 2025-03-03 10:27 | XMS_ITS | Encounter Summary ---
Author Organization [employer] ([place], [place], [place], [place], [place]) Address [address] [place] [address] Care Team Providers Care Cargo Service Supervisor Name Role Phone Unavailable Primary Care Provider Unavailabl e Encounter Details Date Type Department Care Team (Late st Contact Info) Description 04/18/2018 Transcribed Document [facility] [place] [facility] [place] [address] ProviderMg MD [facility] [place] [address] Social History Tobacco Use Types Packs/Day Years Used Date Smoking Tobacco: Never Assessed Sex and Gender Information Value Date Recorded Sex Assigned at Not on file Legal Sex Male 1:09 PM CDT Gender Identity Not on file Sexual Orientation Not on file documented as of this encounter Miscellaneous Notes * Cerner Conversion Note - Historical ProviderMD - 04/18/2018 5:00 AM DINING SERVICE SUPERVISOR Height and Weight, Routine Entered On: 04/18/2018 7:07 EST Performed On: 04/18/2018 5:00 EST by GREG MONROY RN Height and Weight, Routine Routine Weight Source : Standing scale Routine Weight Entry Format : [place] Routine Weight, Pounds : 229 lb Routine Weight, Ounces : 2 oz Routine Weight Calculation : 104.15 kg Height Source : Stated Height Entry Format : [place] Height, Feet : 6 ft Height, Inches : 0 Inch Clinical Height : 182.88 cm Body Surface Area (BSA), Routine : 2.26 m2 Body Mass Index (BMI), Routine : 31.14 kg/m2 GREG MONROY RN - 04/18/2018 7:07 EST Electronically signed by Jackie [facility] Conversion Fitness Center Attendant Cerner at 06/19/2022 10:57 PM CDT documented in this encounter Plan of Treatment Not on file documented as of this encounter Visit Diagnoses Not on filedocumented in this encounter
--- OUTSIDE RECORDS SUMMARY | 2025-03-03 10:27 | XMS_ITS | Encounter Summary ---
Author Organization [employer] ([place], [place], [place], [place], [place]) Address [address] [place] [address] Care Team Providers Care Community Services Coordinator Name Role Phone Unavailable Primary Care Provider Unavailabl e Encounter Details Date Type Department Care Team (Late st Contact Info) Description 04/18/2018 Transcribed Document [facility] [place] Family Medicine [address] [place] [address] ProviderMg MD [facility] [place], [place] [address] Social History Tobacco Use Types Packs/Day Years Used Date Smoking Tobacco: Never Assessed Sex and Gender Information Value Date Recorded Sex Assigned at Not on file Legal Sex Male 1:09 PM CDT Gender Identity Not on file Sexual Orientation Not on file documented as of this encounter Miscellaneous Notes * [employer]ner Conversion Note - Historical ProviderMD - 04/18/2018 2:00 AM NATURAL GAS FIELD PROCESSING SUPERVISOR Utility Helicopter Repairer Details Entered On: 04/18/2018 4:38 EST Performed [...]
--- OUTSIDE RECORDS SUMMARY | 2025-03-03 10:27 | XMS_ITS | Encounter Summary ---
Author Organization [employer] ([place], [place], [place], [place], [place]) Address [address] [place] [address] Care Team Providers Care Gin Inspector Name Role Phone Unavailable Primary Care Provider Unavailabl e Encounter Details Date Type Department Care Team (Late st Contact Info) Description 04/17/2018 Transcribed Document [facility] [place] Family Medicine [address] [place] [address] ProviderMg MD [facility] [place], [place] [address] Social History Tobacco Use Types Packs/Day Years Used Date Smoking Tobacco: Never Assessed Sex and Gender Information Value Date Recorded Sex Assigned at Not on file Legal Sex Male 1:09 PM CDT Gender Identity Not on file Sexual Orientation Not on file documented as of this encounter Miscellaneous Notes * [employer]ner Conversion Note - Historical ProviderMD - 04/17/2018 2:00 AM CONTINUOUS ABSORPTION PROCESS OPERATOR Collating Machine Operator Details Entered On: 04/17/2018 3:17 EST Performed [...] GREG MONROY, MARYCARMEN - 04/17/2018 3:16 EST Electronically signed by Morales Mejia Conversion Supervisor Belt And Link Assembly Cerner at 06/19/2022 10:55 PM CDT documented in this encounter Plan of Treatment Not on file documented as of this encounter Visit Diagnoses Not on filedocumented in this encounter
--- OUTSIDE RECORDS SUMMARY | 2025-03-03 10:27 | XMS_ITS | Encounter Summary ---
Author Organization [employer] ([place], [place], [place], [place], [place]) Address [address] [place] [address] Care Team Providers Care Merchandise Shopper Name Role Phone Unavailable Primary Care Provider Unavailabl e Encounter Details Date Type Department Care Team (Late st Contact Info) Description 04/16/2018 Transcribed Document [facility] [place] Family Medicine [facility] [place] [address] ProviderMg MD [place] [address] Social History Tobacco Use Types Packs/Day Years Used Date Smoking Tobacco: Never Assessed Sex and Gender Information Value Date Recorded Sex Assigned at Not on file Legal Sex Male 1:09 PM CDT Gender Identity Not on file Sexual Orientation Not on file documented as of this encounter Miscellaneous Notes * Cerner Conversion Note - Historical ProviderMD - 04/16/2018 7:44 PM BLISTER RUST ERADICATOR Event Note Entered On: 04/16/2018 19:45 EST Performed On: 04/16/2018 19:44 EST by CHARLA PHILLIPS RN Event Note Event Date/Time : 04/16/2018 19:44 EST Event Location : Assigned room Description of Event : Dr Hobbs called to DC amiodarone 400 mg po. CHARLA PHILLIPS RN - 04/16/2018 19:44 EST Electronically signed by Jackie [facility] Conversion Cook Chef Jessica at 06/19/2022 10:59 PM CDT documented in this encounter Plan of Treatment Not on file documented as of this encounter Visit Diagnoses Not on filedocumented in this encounter
--- OUTSIDE RECORDS SUMMARY | 2025-03-03 10:27 | XMS_ITS | Encounter Summary ---
Author Organization [employer] ([place], [place], [place], [place], [place]) Address [address] [place] [address] Care Team Providers Care Perl Software Engineer Name Role Phone Unavailable Primary Care Provider Unavailabl e Encounter Details Date Type Department Care Team (Late st Contact Info) Description 04/18/2018 Transcribed Document [facility] [place] Family Medicine [facility] [place] [address] ProviderMg MD [facility] [place] [address] Social History Tobacco Use Types Packs/Day Years Used Date Smoking Tobacco: Never Assessed Sex and Gender Information Value Date Recorded Sex Assigned at Not on file Legal Sex Male 1:09 PM CDT Gender Identity Not on file Sexual Orientation Not on file documented as of this encounter Miscellaneous Notes * Cerner Conversion Note - Mg ProviderMD - 04/18/2018 2:22 PM BARTENDER SERVER Care Management Assessment/Plan Entered On: 04/18/2018 14:23 EST Performed On: 04/18/2018 14:22 EST by Breann Ordaz, RN Care Management Note Anticipated Discharge Date : 04/17/2018 21:00 EST Care Management Note : Jim Sanchez set up appointment with [facility] endocrinology, CAREY cancelled Martin's appointment and faxed patient information over to [phone]...[facility] Care Management Note Report : Breann Ordaz, RN - 04/18/18 10:02:59 CM spoke with Rianna facility coordinator at [facility] office, fax [phone]. Patient's requested date for start of care is in 2 weeks but explosive expert as scheduling out for 2-3 months. Patient is on the cancellation list at Dr. Salazar's with a July appointment time. Information sent to above fax, appointment time placed in discharge form...arh Breann Ordaz, RN - 04/17/18 13:45:24 Per provider notes, patient scheduled for a DCCV today 04/17/18. [place] to stop all alcohol use. Thyroid work up taking place during admission for new onset thyroid panel testing. Remains a home plan, no needs noted...[facility] Breann Ordaz RN - 04/16/18 09:22:27 chart [...] . Home plan at discharge, no needs noted...[facility] Documentation Status Complete : Yes Breann Ordaz RN - 04/18/2018 14:22 EST documented in this encounter Plan of Treatment Not on file documented as of this encounter Visit Diagnoses Not on filedocumented in this encounter
--- OUTSIDE RECORDS SUMMARY | 2025-03-03 10:27 | XMS_ITS | Encounter Summary ---
Author Organization [employer] ([place], [place], [place], [place], [place]) Address [address] [place] [address] Care Team Providers Care Wound Care Rn Name Role Phone Unavailable Primary Care Provider Unavailabl e Encounter Details Date Type Department Care Team (Late st Contact Info) Description 04/16/2018 Transcribed Document [facility] [place] Family Medicine [facility] [place] [address] ProviderMg MD [facility] [place] [address] Social History Tobacco Use Types Packs/Day Years Used Date Smoking Tobacco: Never Assessed Sex and Gender Information Value Date Recorded Sex Assigned at Not on file Legal Sex Male 1:09 PM CDT Gender Identity Not on file Sexual Orientation Not on file documented as of this encounter Miscellaneous Notes * Cerner Conversion Note - Historical ProviderMD - 04/16/2018 2:19 PM MARKETING OPERATIONS ASSOCIATE Consult Phone Call Documentation Entered On: 04/16/2018 [...]
--- OUTSIDE RECORDS SUMMARY | 2025-03-03 10:27 | XMS_ITS | Encounter Summary ---
Author Organization [employer] ([place], [place], [place], [place], [place]) Address [address] [place] [address] Care Team Providers Care [employer] Law Clerk Name Role Phone Unavailable Primary Care Provider Unavailabl e Encounter Details Date Type Department Care Team (Late st Contact Info) Description 04/18/2018 Transcribed Document [facility] [place] [facility] [place] [address] ProviderMg MD [facility] [place] [address] Social History Tobacco Use [...] Mg Ritchie MD - 04/18/2018 9:54 AM MAIL CARRIER AND CLERK Patient: JOSE PEARSON Age: 47 years Sex: [...] Gastrointestinal: Normal bowel sounds. Integumentary: Warm, Dry, [place]. Results Review General results Today's results: 04/18/2018 [...]
[2025-03-03] MEDS: SODIUM CHLORIDE 0.9% 10ML FLUSH SYRINGE 10 ML IV (15:30)
[2025-03-03] MEDS: 0.9 % SODIUM CHLORIDE 500 ML 999 ML IV (15:33)
[2025-03-03] MEDS: IRON SUCROSE COMPLEX 200 MG in 0.9 % SODIUM CHLORIDE 100 ML 220 MG IV (15:49)
--- OUTSIDE RECORDS SUMMARY | 2025-03-06 19:00 | XMS_ITS | Clinical Summary ---
Author Organization Unknown Care Team Providers Care Slicing Machine Tender Name Role Phone JUAN LUIS LERMA, MOLLY Unavailable Unavailable KANG PT, YENNI Unavailable Unavailable ABELINO OT, TANO Unavailable Unavailable HUA BILLING REPRESENTATIVE, MARTA Unavailable Unavailable JOSE L SAFETY GLASS INSTALLER, FLOR[place] Unavailable Unavailable JOSE ALEJANDRO RN, NANO Unavailable Unavailable Payers Payer Name Policy Type Policy Number Effective Date Expira tion Date [employer].AUTH [id number] SECONDARYONLY.SHANA DGM [id number] Problems Condition Name Condition Details Condition Category Status Onset Date Resolution Date Last Treatment Date Treating Clinician Comments HEMIPLGA FOLLOWING CEREBRAL INFRC AFFECTING LEFT NONDOM SIDE Active 07-11 00:00: 00 HYPERTENSIVE HEART DISEASE WITH HEART FAILURE Active 07-11 00:00: 00 UNSPECIFIED SYSTOLIC (CONGESTIVE) HEART FAILURE Active 07-11 00:00: 00 ATHSCL HEART DISEASE OF [place] CORONARY ARTERY W/O ANG PCTRS Active 07-11 00:00: 00 UNSPECIFIED ATRIAL FIBRILLATION Active 07-11 00:00: 00 OTHER CARDIOMYOPAT HIES Active 07-11 00:00: 00 PURE HYPERCHOLEST EROLEMIA, UNSPECIFIED Active 07-11 00:00: 00 PERSONAL HISTORY OF PNEUMONIA (RECURRENT) Active 904 00:00: 00 DEPENDENCE ON WHEELCHAIR Active 07-11 00:00: 00 PRESENCE OF HEART ASSIST DEVICE Active 07-11 00:00: 00 USP (CURRENT) USE OF INHALED STEROIDS Active 07-11 00:00: 00 USP (CURRENT) USE OF ANTICOAGULAN TS Active 07-11 [...] 325 mg capsule 07-11 00:00: 00 Yes [id number] NEEDED FOR PAIN 975 mg EVERY 6 HOURS 975 mg EVERY 6 HOURS (route: oral) Med Classific ation: Analgesic , Anti-infl ammatory or Antipyret ic albuterol sulfate HFA 90 mcg/actuati on aerosol inhaler 07-11 00:00: 00 Yes [id number] NEEDED FOR SHORTNESS OF BREATH 2 puff NEEDED 2 puff NEEDED (route: inhalation ) Med Classific ation: Respirato ry Therapy Agents Banophen 25 mg capsule 07-11 00:00: 00 Yes [id number] PAIN & ITCHING 25 mg 2 TIMES DAILY 25 mg 2 TIMES DAILY (route: oral) Med Classific ation: Respirato ry Therapy Agents bupropion HCl XL 300 mg 24 hr tablet, extended release 07-11 00:00: 00 Yes [id number] DEPRESSION 300 mg DAILY 300 mg DAILY (route: oral) Med Classific ation: Central Nervous System Agents cephalexin 500 mg capsule 07-11 00:00: 00 Yes [id number] ATB 1000 mg 2 TIMES DAILY 1000 mg 2 TIMES DAILY (route: oral) Med Classific ation: Anti-Infe ctive Agents cetirizine 10 mg tablet 07-11 00:00: 00 Yes [id number] ALLERGIES 10 mg BEDTIME 10 mg BEDTIME (route: oral) Med Classific ation: Respirato ry Therapy Agents Fiber Gummies 1.7 gram chewable tablet 07-11 00:00: 00 Yes [id number] GI 3 tablet DAILY 3 tablet DAILY (route: oral) Med Classific ation: Gastroint estinal Therapy Agents fludrocorti sone 0.1 mg tablet 07-11 00:00: 00 Yes [id number] CORTICOSTER OID 0.1 mg DAILY 0.1 mg DAILY (route: oral) Med Classific ation: Endocrine fluoxetine 40 mg capsule 07-11 00:00: 00 Yes [id number] DEPRESSION 40 mg DAILY 40 mg DAILY (route: oral) Med Classific ation: Central Nervous System Agents ibuprofen 200 mg capsule 07-11 00:00: 00 Yes [id number] NEEDED FOR PAIN 200 mg NEEDED 200 mg NEEDED (route: oral) Med Classific ation: Analgesic , Anti-infl ammatory or Antipyret ic ipratropium 0.5 mg-albutero l 2.5 mg/2.5 mL solution for nebulizatio n 07-11 00:00: 00 Yes [id number] NEEDED FOR SHORTNESS OF BREATH 0.5 mg NEEDED 0.5 mg NEEDED (route: inhalation ) Med Classific ation: Respirato ry Therapy Agents Magnesium Complex 300 mg magnesium tablet 07-11 00:00: 00 Yes [id number] SUPPLEMENTS 1 tablet 2 TIMES DAILY 1 tablet 2 TIMES DAILY (route: oral) Med Classific ation: Electroly te Balance-N utritiona l Products melatonin 10 mg capsule 07-11 00:00: 00 Yes [id number] SLEEP 10 mg BEDTIME 10 mg BEDTIME (route: oral) Med Classific ation: Central Nervous System Agents metoprolol succinate ER 25 mg tablet,exte nded release 24 hr 07-11 00:00: 00 Yes [id number] HTN 25 mg DAILY 25 mg DAILY (route: oral) Med Classific ation: Cardiovas cular Therapy Agents montelukast 10 mg tablet 07-11 00:00: 00 Yes [id number] ASTHMA 10 mg DAILY 10 mg DAILY (route: oral) Med Classific ation: Respirato ry Therapy Agents Mucus Relief ER 600 mg tablet, extended release 07-11 00:00: 00 Yes [id number] CONGESTION 1200 mg 2 TIMES DAILY 1200 mg 2 TIMES DAILY (route: oral) Med Classific ation: Respirato ry Therapy Agents omeprazole 40 mg capsule,del ayed release 07-11 00:00: 00 Yes [id number] GERD 40 mg DAILY 40 mg DAILY (route: oral) Med Classific ation: Gastroint estinal Therapy Agents rosuvastati n 20 mg tablet 07-11 00:00: 00 Yes [id number] CHOLESTEROL 20 mg BEDTIME 20 mg BEDTIME (route: oral) Med Classific ation: Cardiovas cular Therapy Agents Senna Lax 8.6 mg tablet 07-11 00:00: 00 Yes [id number] LAXATIVE 8.6 mg BEDTIME 8.6 mg BEDTIME (route: oral) Med Classific ation: Gastroint estinal Therapy Agents sotalol 120 mg tablet 07-11 00:00: 00 Yes [id number] ARRHYTHMIAS 120 mg 2 TIMES DAILY 120 mg 2 TIMES DAILY (route: oral) Med Classific ation: Cardiovas cular Therapy Agents spironolact one 25 mg tablet 07-11 00:00: 00 Yes [id number] DIURETIC 25 mg DAILY 25 mg DAILY (route: oral) Med Classific ation: Cardiovas cular Therapy Agents tamsulosin 0.4 mg capsule 07-11 00:00: 00 Yes [id number] PROSTATE 0.4 mg DAILY 0.4 mg DAILY (route: oral) Med Classific ation: Genitouri nary Therapy warfarin 10 mg tablet 07-11 00:00: 00 Yes [id number] BLOOD THINNER 10 mg DAILY 10 mg DAILY (route: oral) Med Classific ation: Hematolog ical Agents doxycycline hyclate 100 mg capsule 11-08 00:00: 00 11-09 23:59 :00 No [id number] PNEUMONIA 1 capsule 2 TIMES DAILY 1 [...] TO EVALUATE, OBSERVE / ASSESS, AND MONITOR, BILLING REPRESENTATIVE TO OBSERVE AND MONITOR, PROVIDE SKILLED THERAPEUTIC INTERVENTION, ACTIVITY, EDUCATION, AND TRAINING TO ADDRESS; [code = AGENCY MAY PERFORM A RESUMPTION OF CARE VISIT FOLLOWING ANY HOSPITAL ADMISSION. PT TO EVALUATE, OBSERVE / ASSESS, AND MONITOR, BILLING REPRESENTATIVE TO OBSERVE AND MONITOR, PROVIDE SKILLED THERAPEUTIC INTERVENTION, ACTIVITY, EDUCATION, AND TRAINING TO ADDRESS;] Future Scheduled Test PT/BILLING REPRESENTATIVE TO PERFORM INTERVENTIONS TO MAINTAIN CURRENT FUNCTION DUE TO CVA AND/OR TO PREVENT OR SLOW FURTHER FUNCTIONAL DECLINE. [code = PT/BILLING REPRESENTATIVE TO PERFORM INTERVENTIONS TO MAINTAIN CURRENT FUNCTION [...] THE MAINTENANCE THERAPY PROGRAM WITHIN 8 WEEKS Encounters Start Date/Time End Date/Time Encounter Type Admission Type Attending [facility] Care Department Encounter ID Discharge Date Discharge Status Discharge Condition Discharge Reason Percent Goals Met 2025-01-07 00:00:00 2025-03-07 00:00:00 Outpatient RECERTIFIC ATION YENNI KAPADIA [facility] [id number] 0.00
== END 2025-03-03 23:59 | disposition home or self-care (01) ==
LOC: INF 10:13
PROVIDERS: PCP Pediatrics; Visit Provider Internal Medicine Cardiovascular Disease
DX: D50.9 Iron deficiency anemia, unspecified (principal); Z95.811 Presence of heart assist device
CPT/HCPCS: 96360; J1756; J7040